=== PATIENT | female | born 1970 | race Caucasian/White ===

== ENCOUNTER 2017-12-02 08:34 | Outpatient (RCR) | payer MEDICAID, SELFPAY ==
--- NOTE | 2017-12-02 13:45 | BH.SGPN ---
Service Group Progress Note - Session Psychotherapy Session #2 Date Open:: 12/02/17 - 5 group members Time Started:: 10:10 Time Stopped:: 11:03 Targeted Problem #:: 1 Type of Group:: Illness Management Goal of Group:: The goal of group was to increase understanding of goals and goal setting and practice a method of goal setting. Client Response/Progress/Benefit:: Client responded well to session, active participant, content sometimes off topic. Client processed quote with group sharing it resonates with her as client believes setting goals gives her direction. Client reported goals should be relevant and specific to help a person stay motivated. Client reported in the past she has set unrealistic goals which resulted in client self-sabotaging and not accomplishing the goal. Client helped the group set goals during the activity, but continued to suggest unrealistic goals throughout. Client reflected this was not the most helpful strategy in the activity and in her own life as small goals build confidence. Client appeared to benefit from increasing awareness of SMART goal setting as well as self-sabotaging behaviors. Eye Contact:: Good Motor Activity:: Appropriate Appearance:: Disheveled Speech:: Tangential, Rapid Mood:: Euphoric Affect:: Full Thoughts:: Flight of ideas Staff Interventions:: Therapist facilitated group discussion about goals and goal setting. Therapist taught group the acronym SMART (Specific, Measurable, Achievable, Relevant, Timely) as a tool to help with goal setting. Therapist led the group in an activity to be used as a method of practicing goal setting. Therapist provided the group with a small beach ball and explained their goal was to keep the ball in the air for as long as possible. Therapist guided the group through the SMART acronym as group was participating in activity. Psychotherapy Session #3 Date Open:: 12/02/17 - 5 group members Time Started:: 11:10 Time Stopped:: 12:10 Targeted Problem #:: 1 Type of Group:: Functional Skills Development Goal of Group:: The goal of group was to identify a goal for the week, explore the potential barriers to achieving that set goal, and identify strategies to overcome barriers. Client Response/Progress/Benefit:: Client responded well to session, active participant. Client shared the activity helped client realize she does not have to accomplish her goals alone. Client created a weekly goal of planning her [place] trip by printing off 10 places she would like to visit. Client reported this goal does not directly relate to mental health, but client shared with her medical conditions worsening, client wants ?to live my life? and take a trip that will bring client abraham. Client identified her barriers as procrastination and time management. Client created strategies to overcome these barriers such as using her supports for accountability and going to the library. Client appeared to benefit from creating a weekly goal and establishing strategies to overcome barriers. Client seems to be progressing with her willingness to utilize supports to help accomplish goals as evidenced by her report of ?I don?t have to do this alone.? Eye Contact:: Good Motor Activity:: Appropriate Appearance:: Disheveled Speech:: Tangential Mood:: Euthymic Affect:: Full Thoughts:: Flight of ideas, No evidence of hallucinations/delusions noted Staff Interventions:: Therapist explained goal setting activity to group. Therapist provided each group member with a piece of paper and asked them to write down a goal they would like to accomplish over the weekend. Therapist then asked each member to draw a path to their goal and identify barriers that could potentially get in the way of their goal. Therapist led group in processing their goal maps and had them come up with strategies to overcome the barriers. Therapist provided support by using reflective listening.
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
--- NOTE | 2017-12-04 14:19 | BH.SGPN ---
Service Group Progress Note - Session Psychotherapy Session #3 Date Open:: 12/04/17 - 10 group members Time Started:: 11:21 Time Stopped:: 12:11 Targeted Problem #:: 1 Type of Group:: Functional Skills Development Goal of Group:: To rehearse resilient factors and identify ways to maintain resilience despite hardships and stressors. Client Response/Progress/Benefit:: Client responded well to session, active participant and providing supportive statements to peers. Client identified her personal resiliency traits to be I'm good in a crisis and good at fixing things. However, client stated at times she often creates her own crisis as client feels most comfortable in that environment. Client responded well to feedback regarding utilizing self-care and the impact of self-sabotaging. Client wrote her resiliency traits on her stress ball as a reminder to client of ways she can remain resilient despite hardships. Client appeared to benefit from identifying ways in which client demonstrates resiliency as well as receiving supportive statements from others. Client seems to be progressing with identifying personal strengths and barriers, but can continue to benefit from managing impulses. Eye Contact:: Good Motor Activity:: Restless Appearance:: Disheveled Speech:: Tangential Mood:: Euthymic Affect:: Full Thoughts:: Linear, Other - some evidence of grandiose thoughts. Staff Interventions:: Therapist led group in an activity in which group members were challenged to stay resilient despite various stressors and hardships added to activity. Therapist provided each group member with a stress ball and used stress ball as a tool to discuss factors of resilient personality. Therapist provided group members with a handout about the building blocks of resilience. Therapist provided support by using reflective listening.
--- NOTE | 2017-12-04 14:51 | BH.MDN ---
Multi-Disciplinary Note - Note 60-min Individual Time Started:: 10:27 Date: 12/04/17 Purpose of session/treatment goals addressed:: The purpose of the session was to address client's current functioning and provide emotional support regarding Client feelings of overwhelming stress/anxiety related to past trauma and current medical stressors. Another goal was to establish rapport with client by gathering information on client's current stressors, supports, and symptoms, as well as begin establishing treatment goals. Eye Contact:: Good - Tearful in discussing chronic medical dx. Motor Activity:: Appropriate Appearance:: Casual Speech:: Pressured, Rambling - Client often would start responding to prompts on topic; however, easily became sidetracked by her own thoughts and overwhelming emotion. Mood:: Anxious, Depressed Affect:: Full Thoughts:: Linear, Logical, No evidence of hallucinations/delusions noted Staff Interventions:: Therapist used open-ended questions to gather information on client's symptoms, supports, and stressors. Therapist provided emotional support and active listening as client was expressing concerns about struggling to accept and adjust to the adjunct faculty for medical terminology limitations and implications related to diagnosis of liver disease and associated decreased independence. Used OK techniques to begin establishing tx plan goals. Client Response:: Client well engaged, although had some difficulties in remaining on topic throughout discussion. Client willing to attend session and expressed relief in being able to sit as she was begining to become fatigued from standing during group activity. 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 She did well to challenge her self to reframe and identify the positives of her willingness to seek help and motivation to change. Client described a recent influx in life stressors resulting in adverse symptoms related to anxiety and depression. Client indicated that she hasn't slept in months, and cited recieving no more than 2-3 hours of rest at any one time in the last two months. Client indicates increased irritability and verbal outbursts with her family which has begun to strain relationships with her fiance and children, as well as caused her to experience guilt and remorse as a result. CLient discussed that she attributes these symptoms to difficulties in accepting and managing the role changes and responsibilities associated her liver disease diagnosis. Client discussed increased confusion regarding what is or is not real which has led to fear of a return of symptoms associated with what Client referenced to as a historical dx of Dissociative identity disorder (DID) that has not been an issue in the past several years. 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 Client indicated a hx of medication noncompliance however reports that following group Saturday was so inspired by the material that I decided to start taking my medication again. Client reports remaining medication complaint since 12/02/17. Client indicates wanting to determine what her next steps in life are and determine how she can better manage these new transitions in her life. Client receptive to thought challenging technique of identifying evidence for/against her thoughts in order to determine the validity of thoughts she describes as confusing. Client willing to apply this technique and write down specific thoughts she challenges for the next week to review in following session. Risks/Concerns:: No risks or concerns at this time. Client denies any current suicidal ideation, plan, or intent. She is future oriented, indicating plans to attend group for the remainder of the week and expresses setting a good example for her children as motivation to live. Client reports remaining medication complaint since 12/02/17 and is agreeable to continuing to remain compliant with all medications. Client aware of and willing to utilize the crisis resources available should she no longer feel able to maintain safety of herself or others. Progress Toward Goals/Plan:: Limited progress able to be made as it is client's second day of the IOP program. Client recommended to continue current level of treatment for on going symptom management, coping skill maintenance, and increased ability to recognize and manage unrealistic thinking patterns. Time Stopped:: 11:22
--- NOTE | 2017-12-04 16:10 | BH.MDN_ITS ---
Multi-Disciplinary Note - Note 60-min Individual Time Started:: 10:27 Date: 12/04/17 Purpose of session/treatment goals addressed:: The purpose of the session was to address client's current functioning and provide emotional support regarding Client feelings of overwhelming stress/anxiety related to past trauma and current medical stressors. Another goal was to establish rapport with client by gathering information on client's current stressors, supports, and symptoms, as well as begin establishing treatment goals. Eye Contact:: Good - Tearful in discussing chronic medical dx. Motor Activity:: Appropriate Appearance:: Casual Speech:: Pressured, Rambling - Client often would start responding to prompts on topic; however, easily became sidetracked by her own thoughts and overwhelming emotion. Mood:: Anxious, Depressed Affect:: Full Thoughts:: Linear, Logical, No evidence of hallucinations/delusions noted Staff Interventions:: Therapist used open-ended questions to gather information on client's symptoms, supports, and stressors. Therapist provided emotional support and active listening as client was expressing concerns about struggling to accept and adjust to the bag hanger limitations and implications related to diagnosis of liver disease and associated decreased independence. Used MD techniques to begin establishing tx plan goals. Client Response:: Client well engaged, although had some difficulties in remaining on topic throughout discussion. Client willing to attend session and expressed relief in being able to sit as she was begining to become fatigued from standing during group activity. 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 She did well to challenge her self to reframe and identify the positives of her willingness to seek help and motivation to change. Client described a recent influx in life stressors resulting in adverse symptoms related to anxiety and depression. Client indicated that she hasn't slept in months, and cited recieving no more than 2-3 hours of rest at any one time in the last two months. Client indicates increased irritability and verbal outbursts with her family which has begun to strain relationships with her fiance and children, as well as caused her to experience guilt and remorse as a result. CLient discussed that she attributes these symptoms to difficulties in accepting and managing the role changes and responsibilities associated her liver disease diagnosis. Client discussed increased confusion regarding what is or is not real which has led to fear of a return of symptoms associated with what Client referenced to as a historical dx of Dissociative identity disorder ( DID) that has not been an issue in the past several years. 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 Client indicated a hx of medication noncompliance however reports that following group Saturday was so inspired by the material that I decided to start taking my medication again. Client reports remaining medication complaint since 12/02/17. Client indicates wanting to determine what her next steps in life are and determine how she can better manage these new transitions in her life. Client receptive to thought challenging technique of identifying evidence for/against her thoughts in order to determine the validity of thoughts she describes as confusing. Client willing to apply this technique and write down specific thoughts she challenges for the next week to review in following session. Risks/Concerns:: No risks or concerns at this time. Client denies any current suicidal ideation, plan, or intent. She is future oriented, indicating plans to attend group for the remainder of the week and expresses setting a good example for her children as motivation to live. Client reports remaining medication complaint since 12/02/17 and is agreeable to continuing to remain compliant with all medications. Client aware of and willing to utilize the crisis resources available should she no longer feel able to maintain safety of herself or others. Progress Toward Goals/Plan:: Limited progress able to be made as it is client's second day of the IOP program. Client recommended to continue current level of treatment for on going symptom management, coping skill maintenance, and increased ability to recognize and manage unrealistic thinking patterns. Time Stopped:: 11:22
--- NOTE | 2017-12-04 16:10 | BH.SGPN ---
Service Group Progress Note - Session Psychotherapy Session #1 Date Open:: 12/04/17 Time Started:: 09:09 Time Stopped:: 10:15 Targeted Problem #:: 1 Type of Group:: Process - 10 participants
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
--- NOTE | 2017-12-06 11:30 | BH.SGPN_ITS ---
Service Group Progress Note - Session Psychotherapy Session #1 Date Open:: 12/06/17 Time Started:: 09:02 Time Stopped:: 10:05 Targeted Problem #:: 1 Type of Group:: Process - 6 Participants Goal of Group:: The goal of today's group was to check-in with client's mood, stressors, and positives, review homework, and to introduce the topic of the day. Client Response/Progress/Benefit:: Client entered session alert and attentive. Client shared how her zeyad has been keeping her up all night and her physical symptoms have been affecting her more. She went on to share how her medications are making her sick and her 13 year old has been nursing her and she doesn?t want him to have to do that. She states, ?I?ve been trying to keep my head above water, but I feel like I?m sinking.? Client indicated her emotion as content. Client benefitted from group by receiving support from peers. Limited progress noted due to client?s report of increased symptoms and decreased ability to manage stressors. Continued treatment necessary to increase coping skills and support network. Eye Contact:: Fair Motor Activity:: Appropriate Appearance:: Casual Speech:: Appropriate Mood:: Anxious, Depressed Affect:: Congruent Thoughts:: Linear, Logical, No evidence of hallucinations/delusions noted Staff Interventions:: Therapist used open-ended questions to elicit information about client's current stressors and mood. Therapist was supportive by using active listening and reflection.
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
--- NOTE | 2017-12-06 12:46 | BH.DR.ITP ---
Initial Treatment Plan - Patient Information Visit Information: ADMISSION DATE: EXPECTED LOS: 4-6 weeks Diagnoses:: Bipolar disorder F 31.9, borderline personality disorder - Problems/Symptoms Problem #1:: Mood symptoms Symptom:: Depression, decreased energy, difficulty concentrating, biologic disruption of sleep and appetite Problem #2:: Anxiety Symptom:: Panic attacks, rumination Problem #3:: Perceptual disturbances
--- NOTE | 2017-12-09 10:32 | BH.SGPN ---
Service Group Progress Note - Session Psychotherapy Session #2 Date Open:: 12/09/17 Time Started:: 10:12 Time Stopped:: 11:12 Targeted Problem #:: 1 Type of Group:: Illness Management - 10 participants Psychotherapy Session #3 Date Open:: 12/09/17 Time Started:: 11:19 Time Stopped:: 12:20 Targeted Problem #:: 1 Type of Group:: Functional Skills Development - 8 participants
--- NOTE | 2017-12-09 10:34 | BH.SGPN_ITS ---
Service Group Progress Note - Session Psychotherapy Session #1 Date Open:: 18 - 9 group members Time Started:: 09:00 Time Stopped:: 10:02 Targeted Problem #:: 1 Type of Group:: Process Goal of Group:: The goal of today's group was to check-in with client's mood, stressors, and positives, and introduce topic for the day. Client Response/Progress/Benefit:: Client responded well to session, active participant. Client reports feeling ?hopeful? today as she feels confident in her decision to take care of her mental health and has been setting small goals. Client shared over the weekend she spent time with her fiance and son which client enjoyed. However, client reported at times she feels ?alone and frustrated? as client expressed belief her family does not understand client?s mental health issues. Client appeared to benefit from gaining emotional support from peers. Client seems to be progressing with setting small goals, but can continue to benefit from reality testing and medication management. Eye Contact:: Good Motor Activity:: Restless Appearance:: Disheveled Speech:: Rambling Mood:: Euthymic Affect:: Full Thoughts:: Flight of ideas - Client jumping quickly between topics. Staff Interventions:: Therapist used open-ended questions to elicit information about client's current stressors and mood state. Therapist was supportive by using active listening and reflection.
--- NOTE | 2017-12-11 09:42 | BH.COMM ---
Communication Note - Communication with Client Communication Note: Pt cancelled yesterday and today. Pt was not able to complete psycyhosocial due to missed days. Plan to complete psychosocial at next visit. Therapist is following up to discuss lack of attendence.
--- NOTE | 2017-12-12 12:00 | BH.MDN_ITS ---
Multi-Disciplinary Note - Note 60-min Individual Time Started:: 10:10 Date: 12/12/17 Purpose of session/treatment goals addressed:: Purpose of session was to check- in with pt after having emotional break down with IOP therapist prior to group session 2 started. This IOP therapist met with pt to process pt's current symptoms and stressors, assess lethality and safety plan. Eye Contact:: Fair Motor Activity:: Restless Appearance:: Disheveled Speech:: Rambling Mood:: Anxious, Depressed Affect:: Constricted Thoughts:: Flight of ideas, No evidence of hallucinations/delusions noted Staff Interventions:: Therapist used open ended questions to elicit pt's symptoms and stressors. Therapist processed pt's stressors and emotions, validating emotions and experience. Therapist utilized solution focused techniques to identify steps that can help reduce pt's current stressors. Therapist assessed for lethality and provided pt with different strategies to decrease picking behavior. Client Response:: Pt reported she is having a hard time because she has so much to do, but is struggling with being motivated and just wants to sleep. Pt shared she is sleeping a lot and feels unable to get much down. Reported since 2016 she has started to feel unclean again which results in pt feeling need to punish or clean her genital area several times a day. Pt reported this behavior will first start with punishment to the genital area then a shower in an attempt to cleanse her self. Pt reported this is happening up to 4 times a day. 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 Pt unable to identify a specific trigger to restarting genital punishment. Pt reported she also continues to pick at her skin which frustrates her because she knows the picking isn't going to help her. Pt shared she has tried to put band-aids over the area in an attempt to stop herself, but thus far no strategy has helped. Pt reported she is willing to try the butterfly project strategy of drawing butterflys over the area she wants to pick as a way to stop herself from engaging in that behavior. Pt denied suicidal ideation, plan or intention to date. Expressed feeling exhausted with taking care of her asperger's daughter and autistic son; with little assistance from her fiance. Pt reported she isn't getting much emotional support. Pt shared feeling better after having an opportunity to share her thoughts and feelings. Pt agreeable for homework to make a to do list of what she needs to get done with due dates for each of the things then would bring that list in to help prioritize what she needs to do. Risks/Concerns:: Pt denies SI, plan or intention to date. Pt's picking and genital punishment are concerning behaviors, which will continue to be monitored. Pt engaging in those behaviors does not appear to be for intent to kill self. Pt's children serve as protective factors. Progress Toward Goals/Plan:: Pt progress limited due to inconsistent IOP attendance. Pt demonstrated progress by expressing her thoughts and feelings. Also appeared open minded to trying different strategies that might help reduce depressive and anxious symptoms. Pt to continue IOP to stabilize moods and decrease anxious symptoms. Time Stopped:: 11:04
--- NOTE | 2017-12-12 16:08 | BH.COMM_ITS ---
Communication Note - Communication with Client Communication Note: Therapist met with Client to discuss recent decline in attendance and determine strategies to improve consistency of CLient attendance in the IOP program. Client reports her attendance had been affected by difficulties in managing the behaviors of her son whom is diagosed with Autism as well as increased periods of sleep with prolonged fatigue. CLient discussed that her increased sleep may be a sign of encephalopathy and that she currently has a standing order with the [facility] in order to be tested for any signs of such. Client encouraged to follow up with tests in order to role out medical risk, rule out medical related reasons for increased sleep, and to best promote consistent attendance moving forward. Client reports that due to increased sleep she has additionally missed the past few dosages of her prescribed psychiatric medication. Risks of medication noncompliance were reviewed with client who indicated understanding and expressed plans to begin consistantly taking prescribed dosage. Client and therapist discussed stressors related to managing her son's behaviors. Client indicated feeling overwhelmed and as though she has no support. Client open to the idea of becoming involved in the autism community and indicated interest in attending parent support groups. This therapist will follow up with information regarding local parent support groups. Client appeared to have relaxed following discussion regarding local resources; however, indicated a recent influx in self harming behaviors after meeting with this therapist. Client denied suicidal ideation or intent and agreeable to follow-up with a fellow program therapist in order to further assess Client for risk as this therapist was scheduled to facilitate the IOP group at this time. Therapist will coordinate with treatment team for safety planning and coordination of care purposes following client risk assessment to be completed on this date.
--- NOTE | 2017-12-12 16:31 | BH.COMM ---
Communication Note - Communication with Client Communication Note: Therapist contacted CLient outpatient psychologist, Dr. Moreno, with the [facility] to communicate concerns regarding Client medication compliance and inappropriate or unhealthy coping means of coping, as well as provide updates regarding current treatment plan goals. Therapist coordinated with provider to establish a plan of best practice moving forward. Plan is to continue with current treatment goals and objectives, continue to monitor for and promote safety, as well as provide regular updates regarding Client progress.
--- NOTE | 2017-12-13 12:54 | BH.COMM ---
Communication Note - Communication with Client Communication Note: Client indicated feeling exhausted and unable to focus due to a lack of sleep. Client expressed wanting to return home to rest as she feels unable to remain fully attentive in group. Therapist inquired whether Client had followed up with labwork through the [facility] regarding concerns with sleep. Client indicates plans to get the labwork completed this afternoon following an appointment with her treatment team at the [facility]. Client reports continued difficulties with managing her diabetes medication as she is sleeping through times in which she should be administering medication. Therapist reviewed with Client importance of consistent medication compliance as well as program/appointment attendance in order to best promote mental and physical health and wellness. Client indicates understanding. Client agreeable to meet with therapist on 12/16/17, for an individual session.
--- NOTE | 2017-12-13 14:03 | BH.COMM_ITS ---
Communication Note - Communication with Client Communication Note: Client indicated feeling exhausted and unable to focus due to a lack of sleep. Client expressed wanting to return home to rest as she feels unable to remain fully attentive in group. Therapist inquired whether Client had followed up with labwork through the [facility] regarding concerns with sleep. Client indicates plans to get the labwork completed this afternoon following an appointment with her treatment team at the [facility]. Client reports continued difficulties with managing her diabetes medication as she is sleeping through times in which she should be administering medication. Therapist reviewed with Client importance of consistent medication compliance as well as program/appointment attendance in order to best promote mental and physical health and wellness. Client indicates understanding. Client agreeable to meet with therapist on 12/16/17, for an individual session.
--- NOTE | 2017-12-16 11:53 | BH.COMM ---
Communication Note - Communication with Client Communication Note: This therapist attempted to contact client outpatient treatment team at the [facility]. Client disease case manager was unavailable and a discrete message was left encouraging a return phone call for coordination of care purposes.
--- NOTE | 2017-12-16 14:00 | BH.SGPN_ITS ---
Service Group Progress Note - Session Psychotherapy Session #2 Date Open:: 12/16/17 - 7 group members Time Started:: 10:23 Time Stopped:: 11:20 Targeted Problem #:: 1 Type of Group:: Illness Management Goal of Group:: To identify the importance of change, increase understanding of difficulty of making change, identify what clients would like to make changes in and identify the barriers or obstacles that get in the way of change. Client Response/Progress/Benefit:: Client responded well to session, active participant. Client processed the quote, sharing one cannot move on if they keep reliving the past. Client stated, ?I keep rereading old chapters because it?s comfortable and all I know.? Client helped group identify difficulties associated with making change such as fear, avoidance, lack of motivation, and feeling overwhelmed. Client identified changes she would like to make such as organizing her bills, making phone calls she has been avoiding, and more self- care/rewards. Client reported these changes would give her an increased sense of control and confidence. Client identified her barriers to be procrastination, avoidance, and fear of failure. Client appeared to benefit from gaining awareness of her barriers as well as identifying changes that would positively impact her mental health and functioning. Client progressing with understanding the implications of not changing, but continues to report reluctance to step out of her comfort zone which could hinder progress. Eye Contact:: Good Motor Activity:: Appropriate Appearance:: Neat - hair and makeup done Speech:: Other - Speech within normal limits, making inappropriate jokes about mental health at times. Mood:: Euthymic Affect:: Full Thoughts:: Linear, No evidence of hallucinations/delusions noted Staff Interventions:: Therapist facilitated discussion about change and helped client?s make connections of why change is important. Therapist led group in an experiential activity which involved client?s identifying changes want to make and barriers that get in the way of making those changes. Therapist utilized activity as a tool to help client?s make connections of difficulties in making changes and identify what helps overcome barriers to change.
--- NOTE | 2017-12-17 11:53 | BH.MTP_ITS ---
Master Treatment Plan - Patient Information Program Physician:: Jayleen Rizzo Primary Therapist:: RUY Santiago - Psychiatric Diagnoses Psychiatric Diagnoses:: Bipolar disorder unspecified F 31.9. Borderline personality disorder. Anxiety. Dissociative disorder by history Diagnosis Code(s):: F 31.9, F 60.3, F 41.9, F 44.81 - Estimated LOS Estimated LOS (in weeks):: 6 Problem/Goal #1 - Problem/Goal #1 Stated Goal:: Client will increase mood stability and decrease depressive symptoms, anger/irritability, and self harming behaviors due to Bipolar I through Intensive Outpatient Program. Description of Barriers: Client reports a trauma history which continues to impact her daily via low confidence levels and high anxiety. She additionally struggles with several physical health issues, including a terminal liver disease, which create scheduling difficulties as well as financial, occupational , physical, emotional, and various other stressors for her. Client reports difficulties with medication compliance as well as difficulties in maintaining a diabetes management diet plan. 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 Client has an extensive history of previous suicide attempts and self harming behaviors. Client denies current suicidal ideation, plan or intent. Client has multiple mental health diagnosis causing significant difficulties in managing her sx. Functional Impact: Client reports difficulties in managing her finances as both mental and phsical health issues have caused her to be unable to work as well as rg in her group home. Client reports these difficulties have additionally led to increased irritability and interpersonal relationship tension. Cleint indicates medication noncompliance as well as decreased ability to complete ADL' s include normal grooming/hygiene routine. Client increased anxiety related to past trauma has resulted in ongoing self harming behaviors via excessinve vaginal washing while in the shower and skin picking behaviors. Client reports increased anxiety and depression symptoms resulting in an inability to function at baseline. Goal Relevant Strengths/Supports: Client has had previous mental health treatment and professional experience which provides a potential increased ability to learn and understand treatment concepts, resilient, motivated to change, fair levels of insight, Client is ambitious and able to identify resources she may use. - Objectives Objective #1 Stated Objective: Client will learn and utilize 2-3 healthy coping strategies to manage and regulate mood state. Interventions: Therapist will assist client in learning internal coping strategies to manage emotion disregulation symptoms, along with helping client identify triggers. Discharge Criteria: Client will have achieved this goal when can verbalize and has practiced at least 2 healthy coping strategies. Target Date: 01/15/18 Review Date: 12/30/17 Problem/Goal #2 - Problem/Goal #2 Stated Goal:: Client will increase self confidence and self worth levels in order to reduce sx of depression by increasing identification of healthy coping skills and initiating regular completion of self care routine. Description of Barriers: Client reports a trauma history which continues to impact her daily via low confidence levels and high anxiety. She additionally struggles with several physical health issues, including a terminal liver disease, which create scheduling difficulties as well as financial, occupational , physical, emotional, and various other stressors for her. Client reports difficulties with medication compliance as well as difficulties in maintaining a diabetes management diet plan. 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 Client has an extensive history of previous suicide attempts and self harming behaviors. Client denies current suicidal ideation, plan or intent. Client has multiple mental health diagnosis causing significant difficulties in managing her sx. Functional Impact: Client reports difficulties in managing her finances as both mental and phsical health issues have caused her to be unable to work as well as rg in her group home. Client reports these difficulties have additionally led to increased irritability and interpersonal relationship tension. Cleint indicates medication noncompliance as well as decreased ability to complete ADL' s include normal grooming/hygiene routine. Client increased anxiety related to past trauma has resulted in ongoing self harming behaviors via excessinve vaginal washing while in the shower and skin picking behaviors. Client reports increased anxiety and depression symptoms resulting in an inability to function at baseline. Goal Relevant Strengths/Supports: Client has had previous mental health treatment and professional experience which provides a potential increased ability to learn and understand treatment concepts, resilient, motivated to change, fair levels of insight, Client is ambitious and able to identify resources she may use. - Objectives Objective #1 Stated Objective: Client will establish a regular daily self care routine; including compliance with all prescribed medications, completing daily grooming routine, and completing one additional self care activity daily. Interventions: Provide Client with education on the importance of medication management and compliance. Explore more in-depth with Client the potential causes and triggers to not completing daily self-care tasks as well as obstacles to maintaining compliance. Identify effective strategies for overcoming obstacles and improving compliance. Provide education on self care coping skills . Provide Client with a daily medication log. Discharge Criteria: Client will be able to remain compliant with established routine 5 out of 7 days each week by utilizing 1-2 problem solving strategies for compliance as well as implementing 2 new self-care skills. Target Date: 01/15/18 Review Date: 12/30/17 Problem/Goal #3 - Problem/Goal #3 Stated Goal:: Client will increase healthy management of anxiety and decrease frequency, intensity, and duration of related excoriation, rumination, and panic symptoms. Description of Barriers: Client reports a trauma history which continues to impact her daily via low confidence levels and high anxiety. She additionally struggles with several physical health issues, including a terminal liver disease, which create scheduling difficulties as well as financial, occupational , physical, emotional, and various other stressors for her. Client reports difficulties with medication compliance as well as difficulties in maintaining a diabetes management diet plan. 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 Client has an extensive history of previous suicide attempts and self harming behaviors. Client denies current suicidal ideation, plan or intent. Client has multiple mental health diagnosis causing significant difficulties in managing her sx. Functional Impact: Client reports difficulties in managing her finances as both mental and phsical health issues have caused her to be unable to work as well as rg in her group home. Client reports these difficulties have additionally led to increased irritability and interpersonal relationship tension. Cleint indicates medication noncompliance as well as decreased ability to complete ADL' s include normal grooming/hygiene routine. Client increased anxiety related to past trauma has resulted in ongoing self harming behaviors via excessinve vaginal washing while in the shower and skin picking behaviors. Client reports increased anxiety and depression symptoms resulting in an inability to function at baseline. Goal Relevant Strengths/Supports: Client has had previous mental health treatment and professional experience which provides a potential increased ability to learn and understand treatment concepts, resilient, motivated to change, fair levels of insight, Client is ambitious and able to identify resources she may use. - Objectives Objective #1 Stated Objective: Client will identify 2-3 anxiety triggers and 2 coping skills to use when feeling anxious. Interventions: Therapist will encourage client to use self-awareness strategies and assist client in developing coping strategies to manage ruminating thoughts. Discharge Criteria: Client will have met this goal when can identify at least 2 triggers and 2 ways to cope with anxieties. Target Date: 01/15/18 Review Date: 12/30/17 Objective #2 Stated Objective: Client will decrease frequency of excoriation behaviors by identifying 2-3 triggers that create the urge to pick skin and identify and implement 2 coping skills to use when feeling tempted to engage in skin picking . Interventions: Therapist will encourage client to use self-awareness strategies and provide a behavior tracking chart to monitor progress as well as identify frequency of behavior. Assist client in developing coping strategies to manage urges to engage in picking behaviors. Discharge Criteria: Client will be able to successfully identify 2-3 triggers for skin picking urges. She will decreas overall frequency of picking through successfully identification and implementation of 2 alternative coping methods she may use to replace picking behaviors. Target Date: 01/15/18 Review Date: 12/30/17
--- NOTE | 2017-12-17 11:55 | BH.COMM_ITS ---
Communication Note - Communication with Client Communication Note: This therapist attempted to contact client outpatient treatment team at the [facility]. Client case consultant was unavailable and a discrete message was left encouraging a return phone call for coordination of care purposes.
--- NOTE | 2017-12-17 11:55 | BH.COMM ---
Communication Note - Communication with Client Communication Note: Client called to cancel IOP group attendance for this day as she was out of town for an appointment with her daughter and did not believe she would make it back in time. Client scheduled to attend group held on , 12/19/17. Client additionally scheduled for an individual session on this date which will be rescheduled for 12/19/17 as client unable to attend.
[2018-01-31 15:08] VITALS: BP 121/65; PULSE 92; RESP 14; TEMP 36.7
== END 2017-12-18 23:59 ==
LOC: BHIOP 08:34
PROVIDERS: Family Provider Internal Medicine; PCP Internal Medicine; Visit Provider Psychiatry & Neurology Psychiatry
DX: F31.9 Bipolar disorder, unspecified (principal); F60.3 Borderline personality disorder; F41.9 Anxiety disorder, unspecified; K74.69 Other cirrhosis of liver; E11.9 Type 2 diabetes mellitus without complications; Z79.4 Long term (current) use of insulin; E06.3 Autoimmune thyroiditis
CPT/HCPCS: 99204; H0035; H2012; H2020; T1002; 90837

== ENCOUNTER 2017-12-19 09:00 | Outpatient (RCR) | payer MEDICAID, SELFPAY ==
[2017-11-26 14:12] VITALS: BMI 26.6
[2017-12-06 14:29] VITALS: BP 121/65
[2017-12-19 01:08] VITALS: PULSE 92; RESP 14; TEMP 36.7
--- NOTE | 2017-12-19 14:07 | BH.MDN ---
Multi-Disciplinary Note - Note 30-min Individual Time Started:: 12:25 Date: 12/19/17 Purpose of session/treatment goals addressed:: The purpose of this session was to assess client current symptoms and stressors as well as identify CLient progress towards small daily goals identified in previous session. Another purpose was to address Client concerns regarding skin picking behaviors and identify potential impulse control strategies and replace behaviors. Eye Contact:: Good Motor Activity:: Appropriate Appearance:: Casual Speech:: Appropriate Mood:: Euthymic, Anxious Affect:: Full, Congruent Thoughts:: Linear, Logical, No evidence of hallucinations/delusions noted Staff Interventions:: Therapist asked open-ended questions in order to ellicit additional information regarding CLient current symptoms and stressors as well as progress towards treatment goals. Utilized active listening skills and provided supportive feedback empathic responses as CLient discussed current concerns. Commended Client for areas in which progress was made and and encouraged continued application of change behaviors. Applied CBT concepts to address excoriation and aided Client in identfying potential healthy alternatives. Provided information on local resources. Client Response:: Client willing to attend session and engaged throughout, however indicated not being able to stay for full 60 minute session as her son is sick needed picked up early from school. Client proudly shared feeling excited to discuss her progress towards small daily goals as she has successfully been able to achieve each goal this week. Client discussed working with her home health nurse on challenging her reluctance to remain compliant with medications and noted that by reframing this so that is was a challenge has aided in increasing motivation. Client indicated feeling silly and ashamed for not maintaining compliance previously as she knows the medication helps and is already beginning to feel better after four consistent days of taking all medications. Client discussed fears in maintaining this progress and not wanting to let everyone down. She responded well to being gently challenged as to who she is really harming if she fails to remain med. compliant as well as whether or not she can attain complaince again. Client additionally discussed that returning to a daily self-care and hygiene routine has been helpful with increasing motivation and self-worth. She went on to disclose that despite putting efforts into her appearance, she finds it difficult to feel like my old self when she sees the hartmann she has from skin picking. Client indicates feeling helpless and unable to control the picking behaviors. She reports previously unsuccessful attempts to refrain from skin picking by covering blemished areas with band-aids. She was receptive to brainstorming potential new alternatives and expressed that the physical sensation and her biggest area of struggle. Client connected well with therapist suggestion of peeling an orage and picking off the orange skin when tempted to engage in picking behaviors. Client willing to follow-up tomorrow for full session. Risks/Concerns:: No risks or concerns at this time. CLient denies active suicidal ideation, plan, or intent as of 12/19/17 and reports no self harming behaviors or urges on this date. Continued daily monitoring and prevention education and support will be done with CLient. Client indicates ongoing medication comliance since 12/16/17. Progress Toward Goals/Plan:: Progress made. CLient displaying progress in her willingness and ability to maintain medication compliance. She has expressed increased motivation to change and indicates successfully making strides towards completing daily goals. Client expresses a desire to learn more skills for improving levels of self confidence and better managing emotions. Displaying improved hygiene and grooming. Client recommendation is to remain in IOP to continue to make consistent progress and maintain current treatment plan goals. Time Stopped:: 13:00
--- NOTE | 2017-12-19 14:57 | BH.SGPN ---
Service Group Progress Note - Session Psychotherapy Session #1 Date Open:: 12/19/17 Time Started:: 09:00 Time Stopped:: 10:00 Type of Group:: Process - 5 group members Goal of Group:: The goal of today's group was to check-in with client's mood, stressors, and positives, review homework and introduce topic for the day. Client Response/Progress/Benefit:: Pt was an active participant in group discussion. Emotion for today is happy. Shared with the group that she has been medication compliant and has put significant effort in her treatment since last IOP session. Stated I'm starting to feel like myself again. Had several tasks that she had been avoiding which she began to address this week. Reports feeling more accomplished stating I feels like I can do things again. Significant progress noted. Appears more energetic and engaged in treatment. Reports that recent groups on goal-setting have helped her prioritize her life. Benefited from group support and praise. Continued treatment to prevent decompensation and stabilize mood. Eye Contact:: Good Motor Activity:: Appropriate Appearance:: Neat Speech:: Appropriate Mood:: Euthymic Affect:: Full Thoughts:: Linear, Logical, No evidence of hallucinations/delusions noted Staff Interventions:: Therapist used open-ended questions to elicit information about client's current stressors and mood state. Therapist was supportive by using active listening and reflection.
--- NOTE | 2017-12-20 15:25 | BH.MDN_ITS ---
Multi-Disciplinary Note - Note 45-min Individual Time Started:: 12:25 Date: 12/20/17 Purpose of session/treatment goals addressed:: The purpose of this session was to review with Client continued progress towards treatment goals and use of healthy coping skill, as well as assess current symptoms and stressors. Another purpose was to continue to work with Client on identifying triggers and thoughts associated with excoriation as well as indroduced a Mental Health Tracker to aid Client in identifying frequency and intentsity of mood, symptoms , and maladaptive coping strategies. Eye Contact:: Good Motor Activity:: Appropriate Appearance:: Casual Speech:: Appropriate Mood:: Euthymic Affect:: Full, Bright Thoughts:: Linear, Logical, No evidence of hallucinations/delusions noted Staff Interventions:: Therapist asked open-ended questions in order to elicit additional information regarding Client symptoms, stressors and ongoing progress towards treatment goals. Utilized active listening skills and provided supportive feedback. Commended Client for on going medication compliance and use of alternative solutions to skin picking behaviors. Continued to work with Client on applying CBT concepts to address excoriation as well work to assist with identifying potential triggers for the behavior and their corresponding coping mechanisms. Introduced mental health symptom, mood, and behavior tracker. Client Response:: Client willing to stay late for session and did well to remain actively engaged in discussion with little distraction. Client discussed excitement and relief as she indicated I've feeling my old self these last few days. Client went on to discuss decreased irritability and improved levels of sleep in the past few days. Client attributes this to remaining medication compliant and responded well to discussion reinforcing the benefits of remaining compliant with all treatment recommendations given by providers. Client shared attempting to use the orange peeling technique as an alternative to skin picking on the previous evening. She discussed that this method had served as a helpful alternative to picking as it provided a similar sentation; however, Client indicates going through an entire bag of oranges in 24 hours and therefore would like to explore less financially constraining alternatives. Client able to work with therapist on identifying potential triggers for the behavior occurring on previous night. Client indicates that often she finds herself mindlessly picking or will be triggered to pick at her skin if she notices a blemish or scab on someone else, such as one of her children, she additionally identified seeing herself in the mirror as a trigger. Client expressed that seeing scabs is her biggest trigger. She responded well to brainstorming additional prevention measures and indicates plans to put a curtain over her mirror so she does not jonathan in it after getting ready. Therapist additionally provided client with a mood and behavior monitoring chart so that client may be able to make small goals of reducing the number of occurrances daily as well as identify any possible correlations between mood, sleep, and behaviors. Client expressed willingness to complete tracker and indicated beliefs that this may aid in tracking progress with medication compliance as well. Client willing to report progress on days attending IOP program. Risks/Concerns:: Client continues to deny active suicidal ideation, plan, or intent as of 12/20/17. Indicates an ability to maintain safety of self and others. Concern regarding client ongoing self-harming behaviors as she reports one self harming behavior via applying hot water to her vaginal area while in the shower to relieve itching sensation. Client in agreement to contact her nurse in order to schedule an appointment with gynecology as well as refrain from showering beyond once daily, and attempt to challenge thoughts of self- harming with positive thinking. Client willing to add self harming behaviors as another component to be tracking on daily log. Continued daily monitoring and prevention education and support will be done with Client on days she attends IOP program. Client indicates ongoing medication compliance since 12/16/17. Progress Toward Goals/Plan:: Client continue to display progress in terms of consistantly trying to apply the skills she is learning to her daily life. Client reports ongoing progress in completion of daily goals related to medication compliance and regular grooming/hygiene. Client continues to report difficulties in challenging negative or distorted thinking patterns such as regarding what others may think of her, her weight, and her ability to be a good mother. Client continues to struggle with regular self-harming and skin picking behaviors and has difficulties in identifying healthy alternatives or challenging her thoughts when an urge arises. Client recommended continued IOP to address maladaptive coping as well as work on sx of anxiety and self- confidence levels. Time Stopped:: 13:06
--- NOTE | 2017-12-24 09:26 | BH.COMM ---
Communication Note - Communication with Client Communication Note: Therapist contacted Client to reschedule what day she would be coming in for IOP program as Client cancelled attendance scheduled for previous date. Client indicates felling better on this day and plans to attend on , 12/26. Client additionally discussed concerns regarding increased tension in relationship with her fiance. Client indicates a desire to schedule family session to discuss ways of improving communication with her fiance as well as to discuss expectations. Client went on to share difficulties in maintaining medication compliance over the weeked due to being sick and fearing should would be unable to keep any medications down. Therapist again reviewed the importance of maintaining compliance and Client indicates setting a goal of taking all medication as prescribed for the remainder of the week.
--- NOTE | 2017-12-24 15:45 | BH.SGPN_ITS ---
Service Group Progress Note - Session Psychotherapy Session #2 Date Open:: 12/19/17 Time Started:: 10:10 Time Stopped:: 11:08 Targeted Problem #:: 1 Type of Group:: Illness Management - 4 participants Goal of Group:: The goal of group was to increase understanding of the benefits social support provides in mental health wellness. Another goal was to increase self-awareness of what qualities the individual group members look for in a person. Client Response/Progress/Benefit:: Client attentive and appeared to respond well to session. She indicated connecting well with the days quote discussing connecting with others and being genuinely interested in what someone has to say. Client connected this back to the importance of social supports and disclosed struggling to utilize her social supports at times. Client appeared to benefit from actively engaging in the activity portion in which participants were given a task requiring them to utilize social supports of one another. Client able to make connections between the activity in daily life indicating the importance of using active communication, clearly stating what you need, and being aware of resources available. Client displayed progress in ability to remain engaged throughout activity as well as allow herself to be the client rather than try and take on a counseling role. CLient additionally displayed increased insight into her struggles to utilize her supports available stating that she often shuts down when feeling as though she needs supports as she thinks she is causing an extra burden for someone else or is a disappointment. Client recommended continued IOP to work towards ongoing stability and use of healthy means of coping, as well as increase ability to identify and challenge negative thinking patterns. Eye Contact:: Good Motor Activity:: Appropriate Appearance:: Casual Speech:: Appropriate Mood:: Euthymic, Anxious Affect:: Full Thoughts:: Linear, Logical, No evidence of hallucinations/delusions noted Staff Interventions:: Therapist led a group discussion about importance of social supports. Therapist facilitated an activity that required the group members to utilize support from each other. Therapist utilized the activity as a tool to connect the importance of accepting social support. Therapist provided support through reflective listening and giving feedback. Psychotherapy Session #3 Date Open:: 12/19/17 Time Started:: 11:17 Time Stopped:: 12:20 Targeted Problem #:: 1 Type of Group:: Functional Skills Development - 5 participants Goal of Group:: The goal of group was to increase understanding of the different types of social support. Another goal was to identify one type of support the client?s desire and establish one small step towards achieving that support. Client Response/Progress/Benefit:: Client again responded well to session and did well to remain actively engaged throuhout. She did worked with the group to discuss potential reasons why they may not reach out to supports when in need and indicated her biggest barrier is guilt and shutting down or isolating. Client worked with group to identify ways to overcome some of these barriers such as reminding herself that her supports will say no if they cant or don't want to help. Client additionally worked to identify various types of supports available as well as the benefits of each. Client displaying progress in ability to identify areas she continues to need progress AEB identifying reconnecting with spiritual supports as a means of self-care as this is accessable anywhere. CLient continues to struggle with self doubt, inconsistent use of skills learned, and difficulties managing emotions. She is recommended continuing IOP treatment to further address these. Eye Contact:: Good Motor Activity:: Appropriate Appearance:: Casual Speech:: Appropriate Mood:: Euthymic, Anxious Affect:: Full Thoughts:: Linear, Logical, No evidence of hallucinations/delusions noted Staff Interventions:: Therapist facilitated group discussion on the different types of social support and importance of each type of support. A worksheet titled ?Plan for Seeking Support?, was utilized to give clients direction in identifying which type of support they desired and identifying the first small step towards the desired support. Therapist provided homework for each group member to try and accomplish the one small step each group member identified on the worksheet.
--- NOTE | 2017-12-26 10:37 | BH.MDN ---
Multi-Disciplinary Note - Note 60-min Individual Time Started:: 12:26 Date: 12/26/17 Purpose of session/treatment goals addressed:: The purpose of this session was to check-in with Client regarding current symptoms and stressors, as well as review continued progress towards treatment goals and use of healthy coping skills. Another purpose was to address client concerns with mood instability, specifically increased irritability, and identify stress management and calming strategies for CLient to utilize. Eye Contact:: Good Motor Activity:: Appropriate Appearance:: Casual Speech:: Rambling Mood:: Irritable, Dysthymic Affect:: Full Thoughts:: Linear, Logical, No evidence of hallucinations/delusions noted Staff Interventions:: Therapist used open-ended and furthering questions to gather information regarding CLient current symptoms, stressors, and coping skills used. Therapist used empathic responses and reflective listening in order to normalize client concerns, as well as provide supportive feedback and encouragement. Therapist provided psychoeducation regarding the relationship between stress and irritability. Aided Client in identifying healthy means for managing and decreasing symptoms of irritability when attempting to communicate with others. Client Response:: Client willing to meet with this therapist for session today rather than the previously established appt. for following day due to a scheduling conflict. Client responded well to session and did well to work with therapist on processing current difficulties with managing her stress response during times in which she is feeling increasingly irritable. Client discussed currently feeling an increase in irritability and resentment towards her family. She discussed feeling as though everything sets me off and hate towards my children which client indicates has scared her as she fears she will be unable to manage her anger if it gets worse. WHen asked to clarify how she is currently expressing angry emotions Client shared going off verbally on her children when they ask questions or forget to do something. Client discussed having a verbal argument with her adult daughter and not remembering what had caused the argument. Client had difficulty identifying specific triggers or events surrounding increased levels of irritability. Upon further reflection she noted struggling to maintain medication compliance over the past weekend and found that her sx were worse during that time, she additionally disclosed increased tention between she and her fiance, Sj, which she believes may also be negatively impacting her mood. Client did well to work with therapist on identifying strategies for decreasing stress levels and preventing from verbal outbursts when feeling increasingly irritable. She responded particularly well to imagining what advice she would have given to a Client with similar sx when she had been actively practicing. Client identified removing herself from the situation and going to a safe space, her office, to cool down and process how to rationally address the issue before responding. CLient additionally identified reminding herself that how her children understand and respond to what she is saying is sometimes impacted by their autism dx. Client additionally qilling to speak with her fiance about scheduling a time for a family therapy session in ordert o review strategies to improve communication and support. Therapsit again reviewed the importance of medication compliance which Client indicates understanding and being in agreement with. A new goal of 5 days of medication compliance was set for the next week. Risks/Concerns:: Client denies suicidal ideation, plan, or intent as of 12/26/17. She indicates ongoing struggles with excoriation behaviors and vaginal cleaning via hot water; however, Client reports a decrease in frequency and duration of skin picking. She additionally indicates that although the vaginal cleaning has increased to twice daily she has lowered the water temp. from what client descrivbes as hot water to one notch above luke-warm. Therapist will continue to work with Client on consistent use of harm reduction as she attempts to replace the behaviors with healthier alternative coping mechanisms. Therapist will continue to monitor behaviors. Progress Toward Goals/Plan:: Some progress. Client continues to indicate difficulties with emotion regulation, specifically during times of increased stress. Client often discusses the circumstances surrounding mood shift as involving a lack of effective communication. She displays insight into behaviors negatively impacting her progress and ability to maintain stability; however, continues to struggle with implementation of skills llearned. Client reports an increase in medication compliance from rare compliance to 3-5 days of consistent medication compliance, reporting that weekends and morings seems to be times of greatest difficulty. Client displaying progress in her ability to implement harms reduction regarding excoriation and former self harming behaviors. Client reports decrease in frequency and duration of excoriation, attributing this to using moisturizers or peeling the skin from an orange when the urge arises. Client additionally disclosed former vaginal self-harming behaviors have ceased as she is no longer experiencing the urge to excessively scrub until lacerating; however continues to engage in dx cleansing rituals up to twice dx via rinsing with water a notch above luke-warm. Client displays improvements in attendance and consistently comes for days scheduled or calls if needing to reschedule. Plan is to continue with current tx goals and continue to work on consistent implementation of healthy coping skills as well as harms reduction behavior. Time Stopped:: 13:15
--- NOTE | 2017-12-26 12:40 | PCM.HP.BLA ---
History and Physical She is seen in follow-up for bipolar disorder F 31.9, borderline personality disorder, anxiety. History is been obtained per interview with patient, discussion with staff, review of chart. Case discussed with treatment team. Chief complaint-mood symptoms and anxiety Interim history Patient continues to struggle with mood symptoms. She reports that overall her depression is somewhat better within the past 2 weeks. She notes however that her irritability has been somewhat more frequent. She appreciates the assistance of a home health nurse and a health high school coach. She reports that this has improved med compliance and that she has generally been compliant with her Luvox for a week and a half. She notes that she did miss doses on Saturday and Saturday due to nausea vomiting and diarrhea. She believes her anxiety was worse after missing the Luvox. It is unclear if her increased irritability represents mixed mood symptoms and has been exacerbated by the antidepressant. She agrees to discuss mood stabilization with her [facility] team later this week. She acknowledges generalized anxiety but notes it is somewhat decreased. He was notified of a Social Security disability award yesterday. Her sleep is generally variable. She has been sleeping more than 12 hours the past few days. She has difficulty maintaining a consistent sleep schedule. Appetite is now improved after an episode of nausea vomiting and diarrhea over the weekend. No current suicidal or homicidal ideation. No symptoms consistent with psychosis. Begin participation in programs including bipolar group. Mental status exam Patient is a 47-year-old female who appears her stated age. She is alert and oriented in no acute distress. She is ambulatory with normal gait and station. She is cooperative with the interview. She has good eye contact. There is no psychomotor agitation or retardation. Mood is dysphoric. Affect congruent. Speech is clear and if regular rate and volume. Language fluent. Thought process organized. Associations logical. Thought content significant for ruminative anxiety. No suicidal or homicidal ideation related to detected. No psychosis related to detected. Immediate recent and remote memory grossly intact. Attention and concentration are fair to good. Estimated intelligence fund of knowledge average. Judgment and insight are fair. Lab work has been requested from primary care physician. Further lab work will be obtained as needed. 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 Risk-benefit alternative medications discussed with patient. Patient acknowledges understanding. Continue fluvoxamine 25 mg p.o. daily as started by Onelia Squires. Just with [facility] care team possibility of need for mood stabilizer. It is unclear if patient's irritability is the result of manic symptoms versus emotional dysregulation secondary to borderline personality disorder. Encouraged ongoing medication compliance. Continue participation in vocalis programs. Encourage follow-up with outpatient providers including Dr. Chris Squires. Encourage follow-up with medical providers and treatment team at [facility] (liver transplant support team). 18 minutes of Insight oriented psychotherapy provided. Patient acknowledges understanding and is in agreement with plan. She feels able to maintain safety. She agrees to seek help or emergency care if feeling unsafe to self or others.
--- NOTE | 2017-12-26 12:44 | HP.PCM_ITS ---
History and Physical She is seen in follow-up for bipolar disorder F 31.9, borderline personality disorder, anxiety. History is been obtained per interview with patient, discussion with staff, review of chart. Case discussed with treatment team. Chief complaint-mood symptoms and anxiety Interim history Patient continues to struggle with mood symptoms. She reports that overall her depression is somewhat better within the past 2 weeks. She notes however that her irritability has been somewhat more frequent. She appreciates the assistance of a home health nurse and a health etiquette coach. She reports that this has improved med compliance and that she has generally been compliant with her Luvox for a week and a half. She notes that she did miss doses on Saturday and Saturday due to nausea vomiting and diarrhea. She believes her anxiety was worse after missing the Luvox. It is unclear if her increased irritability represents mixed mood symptoms and has been exacerbated by the antidepressant. She agrees to discuss mood stabilization with her [facility] team later this week. She acknowledges generalized anxiety but notes it is somewhat decreased. He was notified of a Social Security disability award yesterday. Her sleep is generally variable. She has been sleeping more than 12 hours the past few days. She has difficulty maintaining a consistent sleep schedule. Appetite is now improved after an episode of nausea vomiting and diarrhea over the weekend. No current suicidal or homicidal ideation. No symptoms consistent with psychosis. Begin participation in programs including bipolar group. Mental status exam Patient is a 47-year-old female who appears her stated age. She is alert and oriented in no acute distress. She is ambulatory with normal gait and station. She is cooperative with the interview. She has good eye contact. There is no psychomotor agitation or retardation. Mood is dysphoric. Affect congruent. Speech is clear and if regular rate and volume. Language fluent. Thought process organized. Associations logical. Thought content significant for ruminative anxiety. No suicidal or homicidal ideation related to detected. No psychosis related to detected. Immediate recent and remote memory grossly intact. Attention and concentration are fair to good. Estimated intelligence fund of knowledge average. Judgment and insight are fair. Lab work has been requested from primary care physician. Further lab work will be obtained as needed. 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 Risk-benefit alternative medications discussed with patient. Patient acknowledges understanding. Continue fluvoxamine 25 mg p.o. daily as started by Onelia Squires. Just with [facility] care team possibility of need for mood stabilizer. It is unclear if patient's irritability is the result of manic symptoms versus emotional dysregulation secondary to borderline personality disorder. Encouraged ongoing medication compliance. Continue participation in vocalis programs. Encourage follow-up with outpatient providers including Dr. Chris Squires. Encourage follow-up with medical providers and treatment team at [facility] (liver transplant support team). 18 minutes of Insight oriented psychotherapy provided. Patient acknowledges understanding and is in agreement with plan. She feels able to maintain safety. She agrees to seek help or emergency care if feeling unsafe to self or others.
--- NOTE | 2017-12-26 16:32 | BH.SGPN ---
Service Group Progress Note - Session Psychotherapy Session #2 Date Open:: 12/26/17 Time Started:: 10:14 Time Stopped:: 11:07 Targeted Problem #:: 1 Type of Group:: Illness Management - 3 participants Goal of Group:: The goal of this session was to increase self-awareness of what is holding them back from moving towards mental wellness and discuss importance of taking action in their treatment. Staff Interventions:: Therapist facilitated discussion about what it means to take action in achieving mental health wellness. Therapist led activity in which clients were asked to identify the symptoms and things that they would like to take back control over. Therapist provided support by using active listening. Psychotherapy Session #3 Date Open:: 12/26/17 Time Started:: 11:17 Time Stopped:: 12:16 Targeted Problem #:: 1 Type of Group:: Functional Skills Development - 3 participants Goal of Group:: The goal of this session was to create a 30 day action plan that provides small goals that work towards taking action on one thing they would like to take back control over. Staff Interventions:: Therapist provided materials and guidance to help clients create a 30 day action plan. Therapist provided support by giving feedback and using active listening.
--- NOTE | 2017-12-27 12:11 | BH.SGPN ---
Service Group Progress Note - Session Psychotherapy Session #1 Date Open:: 12/27/17 Time Started:: 09:05 Time Stopped:: 10:00 Targeted Problem #:: 1 Type of Group:: Process Goal of Group:: The goal of today's group was to check-in with client's mood, stressors, and positives, review homework and introduce topic for the day. Client Response/Progress/Benefit:: Client reported feeling frustration with her fianc? because it appears to her he tends to escape when he does not want to deal with her mental health problems. Client shared instead of ruminating about her fianc? she decided to watch a TV series that was really positive instead of watching something that was depressing. Client shared she started to recognize that it is okay to have a mental health diagnosis and still be successful. Client very active participant, commenting others comments and provided support to others. Showing progress as evidenced by client utilizing healthy coping skills and thinking more positively. Eye Contact:: Good Motor Activity:: Appropriate Appearance:: Casual Speech:: Appropriate Mood:: Euthymic Affect:: Congruent Thoughts:: Linear, Logical, No evidence of hallucinations/delusions noted Staff Interventions:: Therapist used open-ended questions to elicit information about client's current stressors and mood state. Therapist was supportive by using active listening and reflection.
--- NOTE | 2017-12-27 14:25 | BH.SGPN_ITS ---
Service Group Progress Note - Session Psychotherapy Session #2 Date Open:: 12/27/17 - 6 participants Time Started:: 10:17 Time Stopped:: 11:13 Targeted Problem #:: 1 Type of Group:: Illness Management Goal of Group:: To increase understanding and awareness of emotions connected to change and the impact those emotions can have on change. Client Response/Progress/Benefit:: Client responded well to session, active participant. Client appeared to connect with the quote sharing ?sometimes I wait to change until everything is perfect, but I know that?s not helpful.? Client able to identify emotions associated with making change such as feeling lost, ambivalent, and overwhelmed. Client reports she belief she is in the preparation stage of change as client is making small steps, however client acknowledged she has difficulty with maintenance. Client appeared to benefit from increasing awareness of the emotions associated with making change and how these emotions impact thoughts, behaviors, and attitude towards change. Client progressing as evidenced by her report of making small changes, but can continue to benefit from maintenance to promote gains. Eye Contact:: Good Motor Activity:: Appropriate Appearance:: Casual Speech:: Appropriate Mood:: Euthymic Affect:: Congruent Thoughts:: Linear, No evidence of hallucinations/delusions noted Staff Interventions:: Therapist facilitated group discussion about change. Therapist led the group in an activity in which the activity was utilized as a tool to increase client?s awareness of emotions connected with change. Therapist led the processing of how each emotion was associated with change. Therapist also educated clients on the stages of change and discussed emotions associated with each stage. Therapist was supportive by providing feedback and using reflective listening. Psychotherapy Session #3 Date Open:: 12/27/17 - 6 participants Time Started:: 11:20 Time Stopped:: 12:10 Targeted Problem #:: 1 Type of Group:: Functional Skills Development Goal of Group:: To identify the challenges associated with making change and identify positive outcomes that have resulted from changes made in past. Client Response/Progress/Benefit:: Client responded well to session, active participant. Client reported change can be difficult because ?setbacks happen which can make you want to quit.? Client stated being flexible and resilient are needed to maintain change. Client stated making personal change is challenging as client procrastinates and gets overwhelmed by where to start. Client reflected on times when change was positive such as when client started taking her medications more consistently. Client appeared to benefit from gaining awareness of the challenges associated with change as well as reflecting on a time when change had a positive outcome. Client reported she would like to continue to work on ?my commitment to small goals? to increase client?s maintenance with change. Eye Contact:: Good Motor Activity:: Appropriate Appearance:: Casual Speech:: Appropriate Mood:: Euthymic Affect:: Congruent Thoughts:: Linear, No evidence of hallucinations/delusions noted Staff Interventions:: Therapist led group in an activity to help group members recognize the challenges associated with change. Therapist utilized activity as a tool to identify ways to manage changes and adapt to the challenges that ensue. Therapist facilitated group discussion about positive outcomes from change.
--- NOTE | 2017-12-30 12:22 | BH.COMM ---
Communication Note - Communication with Client Communication Note: Client contacted this therapist to indicate plans to attend IOP program on in addition to days previously signed-up for. Client additionally shared recently having an appointment with gynecology in which she has been prescribed Fluconazole 150mg/day every 3 days. Client reports since the appointment she has experienced decreased symptomology which is aiding in management of associated maladaptive coping behaviors and ruminative thoughts of uncleanliness. CLient reports two additional new prescritions from [facility] Care team; Sucralfate 100 mg (10 ml) before meals and at bedtime, as well as Carbamazepine 100mg 2x/daily.
--- NOTE | 2017-12-30 12:30 | BH.COMM_ITS ---
Communication Note - Communication with Client Communication Note: Client contacted this therapist to indicate plans to attend IOP program on in addition to days previously signed-up for. Client additionally shared recently having an appointment with gynecology in which she has been prescribed Fluconazole 150mg/day every 3 days. Client reports since the appointment she has experienced decreased symptomology which is aiding in management of associated maladaptive coping behaviors and ruminative thoughts of uncleanliness. CLient reports two additional new prescritions from [facility] Care team; Sucralfate 100 mg (10 ml) before meals and at bedtime, as well as Carbamazepine 100mg 2x/daily.
--- NOTE | 2017-12-30 15:29 | BH.SGPN_ITS ---
Service Group Progress Note - Session Psychotherapy Session #2 Date Open:: 12/20/17 Time Started:: 10:10 Time Stopped:: 11:15 Targeted Problem #:: 1 Type of Group:: Illness Management Goal of Group:: The goal of group was to increase understanding of coping strategies and impact problems have on self. Another goal was to practice utilizing coping skills in the moment. Client Response/Progress/Benefit:: Client contributed her thoughts and ideas to discussion as well as listened attentively to others comments. Client connected with the quote reporting there have been many times in which she has utilized unhealthy coping strategies which is only made her situation worse. Identified lack of motivation to be 1 of the biggest barriers to using healthy coping strategies. During activity client was supportive and shared her thoughts and ideas to help solve the challenge. Seemed to benefit from having the opportunity to utilize her healthy skills in the moment as well as identifying the impact of continuing to use unhealthy coping strategies has on her mental health. Eye Contact:: Fair Motor Activity:: Appropriate Appearance:: Casual Speech:: Appropriate Mood:: Euthymic Affect:: Congruent Thoughts:: Linear, Logical, No evidence of hallucinations/delusions noted Staff Interventions:: Therapist facilitated the group discussion about coping strategies. Therapist group and activity challenge them to work together in utilize healthy coping skills in the moment. Therapist utilized the activity as a tool to process what it feels like when dealing with problems and what strategies they used to cope throughout activity. Psychotherapy Session #3 Date Open:: 12/20/17 Time Started:: 11:22 Time Stopped:: 12:12 Targeted Problem #:: 1 Type of Group:: Functional Skills Development Goal of Group:: The goal of group was to increase client???s ability to recognize the different between an internal and external coping strategy. Another goal was to increase client???s self-awareness on their use of coping strategies and increase repertoire of healthy coping strategies. Client Response/Progress/Benefit:: Client listened attentively to others in contributed positively to discussion. During group brainstorming of healthy coping strategies client able to share several different positive skills that have helped her in the past. Identified for her healthy coping skills menu skill she is willing to try include: Reading, journaling, exercise, guided imagery, and radical acceptance. Seemed benefit from increasing repertoire of healthy coping strategies as well as identifying specific skills she is willing to try. Eye Contact:: Good Motor Activity:: Appropriate Appearance:: Casual Speech:: Appropriate Mood:: Euthymic Affect:: Congruent Thoughts:: Linear, Logical, No evidence of hallucinations/delusions noted Staff Interventions:: Therapist facilitated discussion about the different types of coping skills. Therapist led group in an activity in which group members were asked to brainstorm coping strategies that fit in each coping skill category. Therapist led a discussion about whether the coping strategies identified were healthy or unhealthy.
--- NOTE | 2017-12-30 15:30 | BH.SGPN_ITS ---
Service Group Progress Note - Session Psychotherapy Session #1 Date Open:: 12/26/17 Time Started:: 09:06 Time Stopped:: 09:58 Targeted Problem #:: 1 Type of Group:: Process Goal of Group:: The goal of today's group was to check-in with client's mood, stressors, and positives, review homework and introduce topic for the day. Client Response/Progress/Benefit:: Client reported last week she had a lot of trouble with her liver disease which resulted in her feeling really sick throughout the week and weekend. Reported she did not feel any support from her fianc? because he tended to just leave her alone. Shared she was able to communicate her thoughts and feelings to her fianc? about not feeling supported , which led to positive discussion and a reconnection between the 2 of them. Client shared her mood has been up and down with some irritability throughout the day. Reported she has been sleeping during the day more which she recognizes as not the best scale. Reported on Saturday she had a lot of anger which she attributes to not being able to keep her medication down over the weekend due to being sick. Recognizes the need for her to take time to care for herself because she tends to put so much energy and effort into helping others but does not have enough left to help herself. Client seemed to benefit from expressing thoughts and emotions. Client progress may be hindered by her inconsistent use of healthy coping strategies. Eye Contact:: Fair Motor Activity:: Appropriate Appearance:: Casual Speech:: Appropriate Mood:: Euthymic, Dysthymic Affect:: Congruent Thoughts:: Linear, Logical, No evidence of hallucinations/delusions noted Staff Interventions:: Therapist used open-ended questions to elicit information about client's current stressors and mood state. Therapist was supportive by using active listening and reflection.
--- NOTE | 2018-01-01 10:34 | BH.SGPN_ITS ---
Service Group Progress Note - Session Psychotherapy Session #1 Date Open:: 01/01/18 - 7 group members Time Started:: 08:57 Time Stopped:: 10:07 Targeted Problem #:: 1 Type of Group:: Process Goal of Group:: The goal of today's group was to check-in with client's mood, stressors, and positives, review homework and introduce topic for the day. Client Response/Progress/Benefit:: Client responded well to session, very engaged and supportive to peers. Client reports feeling proud today as client has been medication compliant more consistently and as a result client's mood has improved. Client shared I notice I'm not blowing up lately and I have a positive outlook. Client reported after not having her teeth for a long period of time, I finally got my teeth. Client shared this has increased her self- esteem and made client feel like her old self. Client stated she would like to continue to improve motivation to organize and was receptive to group feedback on ideas to increase motivation. Client appeared to benefit from receiving supportive statements from peers and reflecting on her progress. Client progressing as shown by her report of an improved mood, increased self-esteem, and medication compliance. Client can continue to work on maintenance and consistency to prevent setbacks. Eye Contact:: Good Motor Activity:: Appropriate Appearance:: Neat - wearing makeup, hair done. Speech:: Appropriate Mood:: Euthymic - smiling, excited about her teeth Affect:: Congruent Thoughts:: Linear, No evidence of hallucinations/delusions noted Staff Interventions:: Therapist used open-ended questions to elicit information about client's current stressors and mood state. Therapist was supportive by using active listening and reflection.
--- NOTE | 2018-01-01 14:45 | BH.SGPN ---
Service Group Progress Note - Session Psychotherapy Session #2 Date Open:: 01/01/18 Time Started:: 10:20 Time Stopped:: 11:10 Targeted Problem #:: 1 Type of Group:: Illness Management - 7 participants Goal of Group:: To increase understanding of what strengths are and identify individual strengths. Client Response/Progress/Benefit:: Client attentive and a positive participant throughout. She provided significant levels of input throughout the discussion reviewing the impact our thoughts have on how we live our lives, indicating that when she isn't doing well or has negative thoughts she tends to isolate or lash out on her family which ends up making her feel worse. Client did well to identify potential benefits of challenging herself to adapt a strengths based approach to self talk. She indicated her strengths as her sense of creativity, humor, ability to problem solve, leadership, and being goal driven. Client benefitted from reflecting upon what contributes to her ability to identify strengths and showed progress in levels of insight related to how miscommunication often is a major barrier to her identifying strengths. Recommended to continue with IOP tx to work on identifying and implamenting effective communication strategies. Eye Contact:: Good Motor Activity:: Appropriate Appearance:: Casual Speech:: Appropriate Mood:: Euthymic Affect:: Full Thoughts:: Linear, Logical, No evidence of hallucinations/delusions noted Staff Interventions:: Therapist facilitated discussion about what are strengths and assisted group members in identifying examples of strengths. Therapist led an activity in which group members were given the opportunity to identify five personal strengths and how not utilizing these strengths may prevent progress and successful management of mental health symptoms. Therapist assisted clients in connecting the importance of recognizing personal strengths in order to most effectively manage mental health symptoms. Psychotherapy Session #3 Date Open:: 01/01/18 Time Started:: 11:19 Time Stopped:: 12:17 Targeted Problem #:: 1 Type of Group:: Functional Skills Development - 6 participants Goal of Group:: To identify what gets in their way of recognizing and utilizing their strengths and identifying ways to challenge negative thoughts preventing strengths recognition as well as make strengths easier to access. Client Response/Progress/Benefit:: Client again did well to respond to session and was actively engaged in both the activity and discussion portions. Client did well to identify the various barriers and supports encountered during the problem solving activity as well as relate this back to the barriers and supports encountered when attempting to actively apply a strengths based perspective in daily life. Client benefitted from the introduction of the S.O.S. (Stop, Observe, and Shift) technique to challenge her identified barrier of negative thinking and displayed progress in her ability to independently apply thought replacing strategies. Recommended continued IOP to further improve ability to consistently apply healthy coping skills. Eye Contact:: Good Motor Activity:: Appropriate Appearance:: Casual Speech:: Appropriate Mood:: Euthymic Affect:: Full Thoughts:: Linear, Logical, No evidence of hallucinations/delusions noted Staff Interventions:: Therapist utilized an activity as a tool in helping clients recognize the things that can get in their way from utilizing their strengths and identify alternative ways to view these barriers. Therapist processed the activity, helping others connect challenges that keep them from recognizing and using their strengths. Therapist provided support by using active listening and providing feedback.
--- NOTE | 2018-01-02 12:10 | BH.MDN ---
Multi-Disciplinary Note - Note 45-min Individual Time Started:: 09:32 Date: 01/02/18 Purpose of session/treatment goals addressed:: The purpose of this session was to check-in with Client ongoing medication management and continued progress towards treatment goals, as well as use of healthy coping skills during times of increased frustrations. Another purpose was to discuss Client goals and expectations for upcoming family therapy session. Eye Contact:: Good Motor Activity:: Appropriate Appearance:: Casual Speech:: Appropriate Mood:: Euthymic, Anxious Affect:: Full Thoughts:: Linear, Logical, No evidence of hallucinations/delusions noted Time Stopped:: 10:17
--- NOTE | 2018-01-03 15:00 | BH.SGPN_ITS ---
Service Group Progress Note - Session Psychotherapy Session #1 Date Open:: 01/03/18 Time Started:: 09:10 Time Stopped:: 10:02 Targeted Problem #:: 1 Type of Group:: Process - 6 Participants Goal of Group:: The goal of today's group was to check-in with client's mood, stressors, and positives, review homework, and to introduce the topic of the day. Client Response/Progress/Benefit:: Client entered session alert, attentive, and willing to engage. Client was supportive and encouraging to peers. Client stated, ?I feel like I have improved a lot over the past couple of weeks,? and continued to share how she feels the meds are helping and she is more motivated to set and achieve goals than before. Client spoke about how she has been applying skills in her daily life and using calming strategies when communicating with her family to prevent escalation. She states, ?I noticed when my fianc? and I got into it when I would yell he?d start yelling or even with my kids so now when I?m calm they stay calm too.? Client continued to share how she plans on communicating with her fianc? about needing more time with him but also accepting where she is at with him. Client reported goals of going back to school and possibly looking into the career field of the [employer]. Client indicated her emotion as happy and benefitted from group by sharing success and c elebrating with peers. Progress noted in client?s ability to implement coping skills and reframe negative thoughts. Continued treatment necessary to maintain gains. Eye Contact:: Good Motor Activity:: Appropriate Appearance:: Neat Speech:: Appropriate Mood:: Euthymic Affect:: Full Thoughts:: Linear, Logical, No evidence of hallucinations/delusions noted Staff Interventions:: Therapist used open-ended questions to elicit information about client's current stressors and mood. Therapist was supportive by using active listening and reflection. Psychotherapy Session #2 Date Open:: 01/03/18 Time Started:: 10:15 Time Stopped:: 11:06 Targeted Problem #:: 1 Type of Group:: Illness Management - 9 Participants Goal of Group:: To increase understanding of resilience and the importance of looking at problems in different ways. Client Response/Progress/Benefit:: Client entered session alert, attentive, and willing to engage. Active participant. Client connected with the days quote stating, ?I had to work hard to find my identity and take a different direction than what I was on. I had to try something new to reveal who I am.? Client participated in group activity that allowed client to use problem solving skills in an area that may appear impossible but once working as a group and using different perspectives to solve the problem client was able to successfully complete activity. After completing activity client stated, ?It?s easier to find the failures in what we do because it takes work to find the positives so we end up staying with the pain and suffering.? Client benefitted from group by gaining awareness of how one?s outlook on misfortunes can impact mental health symptoms and functioning. Progress noted in client?s increased insight on negative thoughts. Continued treatment necessary to maintain gains. Eye Contact:: Good Motor Activity:: Appropriate Appearance:: Neat Speech:: Appropriate Mood:: Euthymic Affect:: Full Thoughts:: Linear, Logical, No evidence of hallucinations/delusions noted Staff Interventions:: Therapist facilitated discussion about resilience and the importance of being resilient in the face of adversity. Therapist led group in an activity that would initially seem impossible to complete, but once group members looked at the problem in a different way they would be able to see alternative solutions. Therapist utilized the activity as a tool to discuss overcoming those situations that seem impossible to get through.
--- NOTE | 2018-01-07 12:12 | BH.MDN ---
Multi-Disciplinary Note - Note Family Time Started:: 10:30 Date: 01/07/18 Purpose of session/treatment goals addressed:: The purpose of this session was to further engage client's main identified support, her significant other, in the treatment process by providing psychoeducation regarding effective communication strategies and ways to continue to support and encourage Client progress in managing mental health symptoms. Other topics discussed include: relationship expectations, goals, and strengths, as well as ways to begin increasing quality time spent together. Eye Contact:: Good Motor Activity:: Appropriate Appearance:: Casual Mood:: Anxious, Depressed Affect:: Constricted Thoughts:: Logical, No evidence of hallucinations/delusions noted Staff Interventions:: Therapist provided a safe and inviting environment for Client to discuss with her s/o strategies to best supporting Client mental health management. Used reflective listening and strengths based perspective to facilitate conversation regarding communication difficulties and concerns. Provided education on the five love languages and reviewed ways each relates to communication needs and expression. Use motivational interviewing techniques to encourage Client to work with s/o in identifying small goals they may begin incorporating in order to work towards described mutual goals for continuing to cultivate the relationship and best support Client in managing mental health needs. Client Response:: Client was willing to participate in therapy session with her significant other and did well to openly discuss her goals and expectations for the session as well as actively listen as her partner shared a desire to increase their ability to communicate during times in which Client is emotionally deregulated. Both were able to provide input openly and receptively as well as give feedback to the discussion. Client expressed gratitude to her significant other for his patience and willingness to continue to support her. Client was able to advocate for herself and acknowledged some of the barriers she has recognized impacting their relationship and ability to support one another. Client indicated knowing that past medication noncompliance has had negative consequences on their ability to effectively communicate and caused increase tension and displaced emotions. She shared feeling her emotions have been increasingly regulated since remaining compliant with medications, to which her partner agreed. Client discussed that having her partner provide recognition of her small accomplishments may aid in continuing to promote progress in those areas. She additionally indicated a desire to increase time spent with her partner where they are able to enjoy each others company and not focus on current stressors or things that need to be done. Client did well to recieve feedback regarding her partner's concerns of feeding into CLient's fequently asking for validation and did well to establish a compromise of having established times for them to check-in with each other and acknowledge what the other has been working on daily. CLient and s/o expressed plan to begin implementing set days for them to spend atleast one hour of time together not focused on obligations or current stressors. Therapist discussed benefits of continuing to engage in regular couple's counseling services in order to explore and strengthen their ability to support one another. Risks/Concerns:: No risks at this time. Client denies active SI, plan, or intent as on 01/07/18. Client identifies her family and wanting to work towards attaining her Phd as main motivating factors. She displayed future orientation as Client indicates plans to come up wih a creative and free idea for she and her s/o to do together this weekend. Progress Toward Goals/Plan:: Client progressing towards treatment goals as evidenced by her continued reports of improved medication compliance, reduced agitation and irritability, increased goal oriented behaviors, and decreased depressive symptoms. Client continues to report difficulties with motivation at time and struggles to clearly communicate needs, frustrations, or concerns with her supports. She is progressing in her ability to set small goals and follow through with them which has aided in improving regular hygiene, attendance, and self-confidence levels. Client to continue in IOP program in order to further promote consistent implementation of healthy coping and stress management skills identified as well as continue to promote gains made and maintain mood stability. Time Stopped:: 11:45
--- NOTE | 2018-01-08 14:59 | BH.MDN ---
Multi-Disciplinary Note - Note 45-min Individual Time Started:: 11:40 Date: 01/08/18 Purpose of session/treatment goals addressed:: The purpose of this session was to review with Client stressors, progress towards treatment goals, and strategies for maintaining gains made. Another purpose was to process with CLient a recent influx in anxiety related to her relationship with her children and feelings of being an inadequate as well as identify potential ways she can reframe or challenge these thoughts. Began discharge planning. Eye Contact:: Good Motor Activity:: Appropriate Appearance:: Casual Speech:: Appropriate Mood:: Euthymic, Anxious Affect:: Full Thoughts:: Linear, Logical, No evidence of hallucinations/delusions noted Staff Interventions:: Therapist asked open-ended and furthering questions in order to gather additional information regarding current symptoms, stressors, and treatment goal progress. Used strengths perspective as well as concepts of reflective listening, empathic responses, and supportive feedback to normalize Client anxieties, identify successes, and continue to promote healthy change and maintenance behaviors. Discussed goals moving forward and began discharge planning. Client Response:: Client agreeable to session and did well to remain actively engaged in the discussion throughout. She discussed that she had felt relieved to have gone through with having a family therapy session with her significant other on the previous date as she had felt heard and validated. Client reflected that the session had aided her in identifying times she may be disqualifying the small things her significant other does to show his love and support, such as never leave the house without telling her he loves her. Client reports that taking time to appreciate the little things may help to alleviate some of her lonliness and fear that Sj is losing interest. Client went on to share that they had successfully taken several breaks to check-in with each other throughout the remainder of the night which she found helpful and would like to continue to implement. Client reports that overall she feels she has made much progress since beginning the program and is feeling as though her mood is more stable than she has been able to remember in quite some time. CLient shared that challenging her thoughts, trying to see things from the other person's perspective, and setting small goals has been helpful in maintaining progress. She shared feeling as though she is almost ready to discharge from the program however has recently been ruminating upon her ability to be a good mother for her children which has caused some increased anxiety and self-doubt. Client went on to share that she believes these thoughts were triggered by her daughter telling her she was going to move in with her bio-father. Client indicated feeling that her mood instability and angry outbursts from when first beginning the program had been the major cause of her daughter making this decision. Client did well to work with therapist on identifying potential ways to reframe and challenge her use of negative self-talk related to this. Client initially struggled in doing so, however eventually identified that this did not mean her daughter would never see her and that time apart could potentially allow for them to heal and work on rebuilding trust. Client successfully identified evidence against the thought that she is a bad mother by finding areas in which she feels confident as a mother. Client discussed being the only one who can really get her son who has autism to complete his hygiene routine and is good at coming up with creative ways to spend time with her children. Client expressed wanting to find more activities she may become involved in upon completing the program as she is scheduled for discharge next week, 01/17. Risks/Concerns:: No risks at this time. Client denies active SI, plan, or intent as on 01/07/18. She continues to report obsessively vaginal cleaning has not exceeded twice daily. Client continues to identify her family and wanting to work towards attaining her Phd as main motivating factors. She displayed future orientation as Client indicates plans to spend time with her son this evening. Progress Toward Goals/Plan:: Progress made. CLient continues to consistently maintain medication compliance and is actively working to accomplish daily small goals. She reports successfully applying healthy coping skills during times of increased stress and agitation by trying to put herself in the other person's shoes or reframe her thouhghts. Client continues to struggle with distorted thinking patterns via personalization and ruminating thought however is displayed an improvement in ability to challenge these. Continued IOP until 01/17 to complete discharge planning, maintain stability, and continue to reinforce healthy change and coping behaviors. Time Stopped:: 12:20
--- NOTE | 2018-01-08 15:09 | BH.SGPN ---
Service Group Progress Note - Session Psychotherapy Session #2 Date Open:: 01/08/18 - 10 group members Time Started:: 10:25 Time Stopped:: 11:19 Targeted Problem #:: 1 Type of Group:: Illness Management Goal of Group:: To increase understanding of what conflict is and increase awareness of how group members manage conflict. Client Response/Progress/Benefit:: Client responded well to session, active participant. Client processed the quote with peers, sharing if you don't deal with conflict it doesn't go away. Client discussed the different types of conflict as well as how people can experience internal conflict of emotions and thoughts. Client helped group identify the different types of conflict resolution styles as well as the benefits and costs of each. Client reported she uses the competing conflict resolution style as client states I think it's important to stick up for yourself. Client shared this style can sometimes negatively impact client's mental health and relationships as client reported it can make others upset. Client appeared to benefit from increasing awareness of how one's conflict resolution style impacts mental health and relationships. Client progressing as evidenced by her report of increased mood stability, but can continue to benefit from being mindful of her approach to dealing with difficult situations. Eye Contact:: Fair Motor Activity:: Slowed Appearance:: Neat Speech:: Soft Mood:: Dysthymic Affect:: Congruent Thoughts:: Linear Staff Interventions:: Therapist facilitated discussion about conflict and conflict resolution. Therapist led group in an activity in which group members had to identify their initial response to conflict and how their response changes based on different situations. Therapist assisted clients with connecting the impact current conflict style has on their mental health.
--- NOTE | 2018-01-09 14:41 | BH.SGPN ---
Service Group Progress Note - Session Psychotherapy Session #1 Date Open:: 01/09/18 - 5 group members Time Started:: 09:07 Time Stopped:: 10:10 Targeted Problem #:: 1 Type of Group:: Process Goal of Group:: The goal of today's group was to check-in with client's mood, stressors, and positives, review homework and introduce topic for the day. Client Response/Progress/Benefit:: Client responded well to session, participating in discussion and providing supportive feedback to peers. Client reports feeling in control as client states she is trying to make the most out of a difficult situation. Client shared her son's school had a shooting threat which resulted in the school questioning her son's behavior as client's son has said inappropriate things at school in the past due to his autism. Client reported it's just heartbreaking because he doesn't mean those things and I don't want him to get in trouble. Client stated she is working with her son's counselor to determine a plan of action to best support his mental health and education. Client reports belief she is coping well with the situation as client stated, I'm looking at it as there's a reason for this and we will get through it. Client shared she plans to address her own mental health needs by spending the day with her daughter and focusing on self-care. Client appeared to benefit from reframing a negative situation and focusing on stressors in her control. Client progressing as evidenced by her medication compliance and mood stability, but can continue to benefit from maintenance. Eye Contact:: Good Motor Activity:: Appropriate Appearance:: Neat - makeup and dress clothes Speech:: Appropriate Mood:: Euthymic Affect:: Congruent Thoughts:: Linear, No evidence of hallucinations/delusions noted Staff Interventions:: Therapist used open-ended questions to elicit information about client's current stressors and mood state. Therapist was supportive by using active listening and reflection.
--- NOTE | 2018-01-10 11:12 | BH.SGPN ---
Service Group Progress Note - Session Psychotherapy Session #1 Date Open:: 01/10/18 Time Started:: 09:05 Time Stopped:: 10:00 Type of Group:: Process - 6 group members Goal of Group:: The goal of today's group was to check-in with client's mood, stressors, and positives, review homework and introduce topic for the day. Client Response/Progress/Benefit:: Pt was an active participant in group discussion. Emotion for today is confident. Shared with the group some stressors in the past week related to additional requirements from her child's school regarding his mental health treatment. She reports that she has been following through with goals and tasks required of her through her medical and psych teams. Taking her medications on a more consistent basis and feels more in control of her life and thoughts. Feels motivated as well. Significant progress as she is being more consistently stable which is postively impacting her life and health. Continued treatment to maintain gains and prevent decompensation. Eye Contact:: Good Motor Activity:: Appropriate Appearance:: Neat Speech:: Appropriate Mood:: Euthymic Affect:: Full, Bright Thoughts:: Linear, Logical, No evidence of hallucinations/delusions noted Staff Interventions:: Therapist used open-ended questions to elicit information about client's current stressors and mood state. Therapist was supportive by using active listening and reflection.
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
--- NOTE | 2018-01-14 12:51 | BH.SGPN ---
Service Group Progress Note - Session Psychotherapy Session #3 Date Open:: 01/14/18 Time Started:: 11:15 Time Stopped:: 12:05 Targeted Problem #:: 1 Type of Group:: Functional Skills Development - 9 Participants Goal of Group:: To identify ways of defeating cognitive distortions and rehearse defeating the identified cognitive distortion. Client Response/Progress/Benefit:: Client entered session alert, attentive, and willing to engage. Client was a big contributor to group. Client participated in small group activity and work with peers to reframe negative thoughts with positive thoughts. Client was able to reframe and identify her own thought and stated, I thought I would never get my PhD from [employer] and that made me feel disappointed, stupid, and like I was a dreamer. I was labeling, using all or nothing thinking, and jumping to conclusions but in reality, I can do this. 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 Client benefitted from discussing cognitive distortions and reframing her own negative thought. Progress noted at clients increased awareness and ability to reframe her thoughts. Continued treatment necessary to prevent decompensation. Eye Contact:: Good Motor Activity:: Appropriate Appearance:: Casual Speech:: Appropriate Mood:: Euthymic Affect:: Full Thoughts:: Linear, Logical, No evidence of hallucinations/delusions noted Staff Interventions:: Therapist provided group members with a handout to use as an aid when trying to defeat their unhelpful thinking. Therapist provided support by clarifying activities and providing feedback. Therapist facilitated group in the role playing of defeating cognitive distortions.
--- NOTE | 2018-01-14 16:18 | BH.SGPN ---
Service Group Progress Note - Session Psychotherapy Session #2 Date Open:: 01/14/18 - group members Time Started:: 10:11 Time Stopped:: 11:10 Targeted Problem #:: 1 Type of Group:: Illness Management Goal of Group:: To increase understanding of cognitive distortions, identify examples of when have had unhelpful thinking, and increase awareness of the impact cognitive distortions have on mental health. Client Response/Progress/Benefit:: Client responded well to session, active in discussion. Client appeared to connect with the quote, stating, we can make things better or worse with our thoughts. Client helped group process negative automatic thoughts and the different types of cognitive distortions. Client reported I tell myself everything has to be perfect or I cant do it which causes client to procrastinate and have self-doubt. Client shared she often uses all or nothing thinking, personalizing, and emotional reasoning. Client connected how her cognitive distortions negatively impact her emotions and lead to unhealthy coping skills. Client appeared to benefit from increasing awareness of cognitive distortions and connecting how the distortions impact mental well-being. Client progressing as shown by her report of increased thought challenging, but can continue to benefit from maintenance. Eye Contact:: Good Motor Activity:: Appropriate Appearance:: Neat Speech:: Appropriate Mood:: Dysthymic Affect:: Congruent Thoughts:: Linear, No evidence of hallucinations/delusions noted Staff Interventions:: Therapist utilized a quote as a tool to introduce topic of the day. Therapist provided group members with a handout that listed ten cognitive distortions with examples. Therapist facilitated group discussion about cognitive distortions. Therapist led group members in an activity to help them understand the impact cognitive distortions can have on emotions and behavior. Therapist provided support by using active listening and providing feedback.
--- NOTE | 2018-01-14 16:26 | BH.SGPN_ITS ---
Service Group Progress Note - Session Psychotherapy Session #2 Date Open:: 01/14/18 - group members Time Started:: 10:11 Time Stopped:: 11:10 Targeted Problem #:: 1 Type of Group:: Illness Management Goal of Group:: To increase understanding of cognitive distortions, identify examples of when have had unhelpful thinking, and increase awareness of the impact cognitive distortions have on mental health. Client Response/Progress/Benefit:: Client responded well to session, active in discussion. Client appeared to connect with the quote, stating, ?we can make things better or worse with our thoughts.? Client helped group process negative automatic thoughts and the different types of cognitive distortions. Client reported ?I tell myself everything has to be perfect or I can?t do it? which causes client to procrastinate and have self-doubt. Client shared she often uses all or nothing thinking, personalizing, and emotional reasoning. Client connected how her cognitive distortions negatively impact her emotions and lead to unhealthy coping skills. Client appeared to benefit from increasing awareness of cognitive distortions and connecting how the distortions impact mental well-being. Client progressing as shown by her report of increased thought challenging, but can continue to benefit from maintenance. Eye Contact:: Good Motor Activity:: Appropriate Appearance:: Neat Speech:: Appropriate Mood:: Dysthymic Affect:: Congruent Thoughts:: Linear, No evidence of hallucinations/delusions noted Staff Interventions:: Therapist utilized a quote as a tool to introduce topic of the day. Therapist provided group members with a handout that listed ten cognitive distortions with examples. Therapist facilitated group discussion about cognitive distortions. Therapist led group members in an activity to help them understand the impact cognitive distortions can have on emotions and behavior. Therapist provided support by using active listening and providing feedback.
--- NOTE | 2018-01-15 14:44 | BH.SGPN ---
Service Group Progress Note - Session Psychotherapy Session #2 Date Open:: 01/15/18 Time Started:: 10:32 Time Stopped:: 11:22 Targeted Problem #:: 1 Type of Group:: Illness Management Goal of Group:: To increase self-awareness of current reality in regards to mental wellness and desired mental wellness. Client Response/Progress/Benefit:: Client contributed to discussion and listened attentively to others. Client seemed to connect with the quote reporting oftentimes she sets herself up a lot more than others do. Able to connect with others comments about the barriers that one sets in front of self that leads to ultimate failure. Client reported for her current situation she feels like a unicorn explaining she has a lot of goals in her life but currently she is doubting if they are realistic or attainable. Client shared for her desired reality she wants to be a horse in which she is no longer doubting herself and feel confident in the goals that she has because if she looks at her past there is a lot of things that she is accomplished and she wants to feel confident she can continue to accomplish more. Seemed benefit from increasing awareness of her current and desired reality. Client also able to reflect on the progress she has made because of when she first started the program her current and desire would be a lot different. Eye Contact:: Fair Motor Activity:: Appropriate Appearance:: Casual Speech:: Appropriate Mood:: Euthymic Affect:: Flat Thoughts:: Linear, Logical, No evidence of hallucinations/delusions noted Staff Interventions:: Therapist facilitated group discussion about current reality in regards to mental health. Client provided each group member a piece of paper and asked them to draw their current reality. Therapist led the processing of each group members drawing. Therapist provided each group member with a second piece of paper and asked clients to draw desired mental wellness. Therapist processed each group members drawing, helping clients connect the two realities. Psychotherapy Session #3 Date Open:: 01/15/18 Time Started:: 11:32 Time Stopped:: 12:22 Targeted Problem #:: 1 Type of Group:: Functional Skills Development Goal of Group:: To identify obstacles in clients path to mental wellness and identify strategies to help one overcome various obstacles. Client Response/Progress/Benefit:: Client listened attentively to others and contributed positively discussion. Client identified her barriers that are keeping her from getting to her desired reality include: Lack of confidence in self, self-worth, fear failure, lack of support, and procrastination. Client reported procrastination to be the biggest barrier to her desired reality because she often puts things back and sometimes until it is too late. Client elected to not participate in the group activity however did observe throughout and make help group problem solve various barriers identified throughout the activity. Seemed benefit from identifying strategies that can help her overcome various barriers. Eye Contact:: Fair Motor Activity:: Appropriate Appearance:: Casual Speech:: Appropriate Mood:: Euthymic Affect:: Flat Thoughts:: Linear, Logical, No evidence of hallucinations/delusions noted Staff Interventions:: Therapist facilitated group discussion about obstacles and the hesitations of overcoming obstacles. Client led group in activity that gave client the opportunity to problem solve various obstacles throughout. Therapist helped clients connect how each obstacle is preventing them from achieving their desired reality. Therapist provided support by using reflective listening and providing feedback.
--- NOTE | 2018-01-17 11:51 | BH.SGPN_ITS ---
Service Group Progress Note - Session Psychotherapy Session #2 Date Open:: 01/10/18 Time Started:: 10:15 Time Stopped:: 11:10 Targeted Problem #:: 1 Type of Group:: Illness Management Goal of Group:: The goal of group was to increase understanding of goals and goal setting and practice a method of goal setting. Client Response/Progress/Benefit:: Pt contributed to discussion and listened attentively to others. Pt connected with quote reported goal setting is important beause goals can help motivate you and gives you a sense of direction. Reported she connects goal setting to a road trip because without a plan you'll just be roaming aimlessly. Pt worked cooperatively with peers in identifying realistic goals during activity. Seemed to benefit from group discussion about importance of having goals as well as identifying what commonly keeps people from setting goals. Eye Contact:: Good Motor Activity:: Appropriate Appearance:: Casual Speech:: Appropriate Mood:: Euthymic Affect:: Constricted Thoughts:: Linear, Logical, No evidence of hallucinations/delusions noted Staff Interventions:: Therapist facilitated group discussion about goals and goal setting. Therapist taught group the acronym SMART (Specific, Measurable, Achievable, Realistic, Timely) as a tool to help with goal setting. Therapist led the group in an activity to be used as a method of practicing goal setting. Therapist guided the group through the SMART acronym as group was participating in activity. Therapist assisted group members with connecting the importance of making small, realistic goals. Psychotherapy Session #3 Date Open:: 01/10/18 Time Started:: 11:15 Time Stopped:: 12:05 Targeted Problem #:: 1 Type of Group:: Functional Skills Development Goal of Group:: The goal of group was to identify a goal for the weekend, explore the potential barriers to achieving that set goal, and identify strategies to overcome barriers. Client Response/Progress/Benefit:: Pt seemed a bit disengaged throughout session AEB pt not fully participating in activity, despite therapist attempts to adjust activity to fit her siuation. Pt listened to others comments. Pt reported she did not want to set anohter goal because believed she had enough and didn't want to overwhelm herself. Pt was asked to evaluate her current goals to assess goal progress. Pt reported one of her goals is to take her medications 4 out of 7 days and she reported thus far surpassing her goal by taking her medications everyday. 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 Seemed to benefit from reviewing current goal progress. Eye Contact:: Good Motor Activity:: Appropriate Appearance:: Casual Speech:: Appropriate Mood:: Euthymic Affect:: Constricted Thoughts:: Linear, Logical, No evidence of hallucinations/delusions noted Staff Interventions:: Therapist facilitated group activity in which group members identified a goal to work on over the next week. Therapist asked group members to identify barriers to achieving identified goal and strategies to help them achieve their goal. Therapist led group in processing their goal maps , assisting clients with establishing SMART goals. Therapist provided support by using reflective listening.
--- NOTE | 2018-01-20 12:51 | BH.SGPN_ITS ---
Service Group Progress Note - Session Psychotherapy Session #3 Date Open:: 01/14/18 Time Started:: 11:15 Time Stopped:: 12:05 Targeted Problem #:: 1 Type of Group:: Functional Skills Development - 9 Participants Goal of Group:: To identify ways of defeating cognitive distortions and rehearse defeating the identified cognitive distortion. Client Response/Progress/Benefit:: Client entered session alert, attentive, and willing to engage. Client was a big contributor to group. Client participated in small group activity and work with peers to reframe negative thoughts with positive thoughts. Client was able to reframe and identify her own thought and stated, ?I thought I would never get my PhD from [employer] and that made me feel disappointed, stupid, and like I was a dreamer. I was labeling, using all or nothing thinking, and jumping to conclusions but in reality, I can do this. 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 Client benefitted from discussing cognitive distortions and reframing her own negative thought. Progress noted at clients increased awareness and ability to reframe her thoughts. Continued treatment necessary to prevent decompensation. Eye Contact:: Good Motor Activity:: Appropriate Appearance:: Casual Speech:: Appropriate Mood:: Euthymic Affect:: Full Thoughts:: Linear, Logical, No evidence of hallucinations/delusions noted Staff Interventions:: Therapist provided group members with a handout to use as an aid when trying to defeat their unhelpful thinking. Therapist provided support by clarifying activities and providing feedback. Therapist facilitated group in the role playing of defeating cognitive distortions.
== END 2018-01-15 23:59 ==
LOC: BHIOP 09:00
PROVIDERS: Family Provider Internal Medicine; PCP Internal Medicine; Visit Provider Psychiatry & Neurology Psychiatry
DX: F31.9 Bipolar disorder, unspecified (principal); F60.3 Borderline personality disorder; F41.9 Anxiety disorder, unspecified; F44.9 Dissociative and conversion disorder, unspecified; E11.9 Type 2 diabetes mellitus without complications; E06.3 Autoimmune thyroiditis; K76.89 Other specified diseases of liver
CPT/HCPCS: 90833; 99214; H0035; H2012; H2020; 90832; 90834; 90837; 90847

== ENCOUNTER 2018-01-17 09:00 | Outpatient (RCR) | payer MEDICAID, SELFPAY ==
[2018-01-16 00:52] VITALS: BP 121/65; PULSE 92; RESP 14; TEMP 36.7
--- NOTE | 2018-01-17 10:45 | BH.AFTERPLAN ---
Aftercare Plan - Demographics Treatment End Date:: 01/17/18 Psychiatrist:: Susan Rizzo Psychiatrist Office #:: [phone] [facility] Therapist:: Mariel Ramos Therapist Phone #:: [phone] - Medications Home Medications: Home Medications Potassium Chloride [Klor-Con M20] 20 meq PO DAILY 09/25/15 Albuterol Inhaler [Ventolin Hfa] 2 puff INHALATION Q4H PRN PRN 02/16/16 Furosemide [Lasix] 80 mg PO DAILY 03/14/17 Insulin Lispro [Humalog] 10 units SC TIDCM 03/14/17 Lactulose [Chronulac] 20 gm PO TID 03/14/17 Magnesium Oxide [Magnesium] 400 mg PO BID 03/14/17 Omeprazole [Prilosec] 20 mg PO DAILY 03/14/17 Ondansetron [Zofran Odt] 4 mg PO BID PRN 03/14/17 Metoclopramide [Reglan] 10 mg PO BID PRN 04/28/17 Spironolactone [Aldactone] 200 mg PO DAILY 04/28/17 TraMADol [Ultram] 50 mg PO Q6H PRN PRN 04/28/17 Sennosides/Docusate Sodium [Senna Plus Tablet] 1 each PO DAILY PRN 04/29/17 Baclofen 10 mg PO QHS 11/04/17 Cholecalciferol (Vitamin D3) [Optimal D3] 50,000 unit PO QWEEK 11/04/17 Dicyclomine HCl [Bentyl] 10 mg PO TIDAC 11/04/17 Fluvoxamine Maleate [Luvox] 25 mg PO QHS 11/04/17 Rifaximin [Xifaxan] 550 mg PO BID 11/04/17 Ursodiol [Actigall] 300 mg PO BID 11/04/17 Insulin Glargine,Hum.rec.anlog [Lantus] 15 unit SQ QHS 11/26/17 - Plan Details Progress/Aftercare Plan Details:: Client has been an active participant and excellent group member throughout the duration of her time in the [facility] program. She has done well to maintain consistent and regular attendance and has demonstrated notable progress during her time in [facility]. Client's progress is noted by observable differences in her levels of motivation and energy as well as self-report of reduced anxiety and depression and increased mood stability. Client stated she has increased her ability to cope with irritability and mood regulation through the use of positive self-talk, reframing, and reminding herself to view things from the other person's perspective before reacting. Client states she has reduced symptoms of anxiety and depression as client has decreased negative thinking, has been able to successfully accomplish small daily goals, and has an overall improved outlook on life. Client shared she has been able to prevent verbal outbursts during times of increased irritability, is more easily focusing on the positives, regularly taking medications, and asking for help for more frequently. Client reported an increase in motivation to accomplish goals and work on improving self-esteem levels as well as an increase in positive emotions. Client reports utilizing healthy coping skills daily and reports increased communication with her support system. Strategies for Success:: 1. Set small goals and break things down so they aren't as overwhelming. 2. Get out and socialize! Do at least one enjoyable activity a day so that you are spending your time in ways that you are okay with. Remember these next 50 years are yours! 3. Remember to give yourself credit, even for small tasks! 4. Use positive thinking and self-talk! 5. TAKE YOUR MEDICATIONS, even when you don't want to or when it is hard. You can't continue to make progress if you aren't functioning at baseline. 6. Spend time with positive supports such as friends and family! 8. Set boundaries and voice your needs. 9. Ask for help, your supports can't help them if you don't ask! 10. Ask yourself how else you can look at a situation and remember to challenge those negative thoughts! - Appointments Appointments/Referrals to Other Services:: Client is to follow up with outpatient counseling with Dr. Moreno as well as continue to attend the DBSA support group through [facility]. Client is to follow up with her care team through the [facility] for ongoing medication management. Client is encouraged to begin couple's counseling through [facility] to continue to improve communication with her supports.
--- NOTE | 2018-01-17 10:52 | BH.IGGP_ITS ---
Aftercare Plan - Demographics Treatment End Date:: 01/17/18 Psychiatrist:: Susan Rizzo Psychiatrist Office #:: [phone] [facility] Therapist:: Mariel Ramos Therapist Phone #:: [phone] - Medications Home Medications: Home Medications Potassium Chloride [Klor-Con M20] 20 meq PO DAILY 09/25/15 Albuterol Inhaler [Ventolin Hfa] 2 puff INHALATION Q4H PRN PRN 02/16/16 Furosemide [Lasix] 80 mg PO DAILY 03/14/17 Insulin Lispro [Humalog] 10 units SC TIDCM 03/14/17 Lactulose [Chronulac] 20 gm PO TID 03/14/17 Magnesium Oxide [Magnesium] 400 mg PO BID 03/14/17 Omeprazole [Prilosec] 20 mg PO DAILY 03/14/17 Ondansetron [Zofran Odt] 4 mg PO BID PRN 03/14/17 Metoclopramide [Reglan] 10 mg PO BID PRN 04/28/17 Spironolactone [Aldactone] 200 mg PO DAILY 04/28/17 TraMADol [Ultram] 50 mg PO Q6H PRN PRN 04/28/17 Sennosides/Docusate Sodium [Senna Plus Tablet] 1 each PO DAILY PRN 04/29/17 Baclofen 10 mg PO QHS 11/04/17 Cholecalciferol (Vitamin D3) [Optimal D3] 50,000 unit PO QWEEK 11/04/17 Dicyclomine HCl [Bentyl] 10 mg PO TIDAC 11/04/17 Fluvoxamine Maleate [Luvox] 25 mg PO QHS 11/04/17 Rifaximin [Xifaxan] 550 mg PO BID 11/04/17 Ursodiol [Actigall] 300 mg PO BID 11/04/17 Insulin Glargine,Hum.rec.anlog [Lantus] 15 unit SQ QHS 11/26/17 - Plan Details Progress/Aftercare Plan Details:: Client has been an active participant and excellent group member throughout the duration of her time in the [facility] program. She has done well to maintain consistent and regular attendance and has demonstrated notable progress during her time in [facility]. Client's progress is noted by observable differences in her levels of motivation and energy as well as self-report of reduced anxiety and depression and increased mood stability. Client stated she has increased her ability to cope with irritability and mood regulation through the use of positive self-talk, reframing, and reminding herself to view things from the other person's perspective before reacting. Client states she has reduced symptoms of anxiety and depression as client has decreased negative thinking, has been able to successfully accomplish small daily goals, and has an overall improved outlook on life. Client shared she has been able to prevent verbal outbursts during times of increased irritability, is more easily focusing on the positives, regularly taking medications, and asking for help for more frequently. Client reported an increase in motivation to accomplish goals and work on improving self-esteem levels as well as an increase in positive emotions. Client reports utilizing healthy coping skills daily and reports increased communication with her support system. Strategies for Success:: 1. Set small goals and break things down so they aren' t as overwhelming. 2. Get out and socialize! Do at least one enjoyable activity a day so that you are spending your time in ways that you are okay with. Remember these next 50 years are yours! 3. Remember to give yourself credit, even for small tasks! 4. Use positive thinking and self-talk! 5. TAKE YOUR MEDICATIONS, even when you don't want to or when it is hard. You can't continue to make progress if you aren't functioning at baseline. 6. Spend time with positive supports such as friends and family! 8. Set boundaries and voice your needs. 9. Ask for help, your supports can't help them if you don't ask! 10. Ask yourself how else you can look at a situation and remember to challenge those negative thoughts! - Appointments Appointments/Referrals to Other Services:: Client is to follow up with outpatient counseling with Dr. Moreno as well as continue to attend the D[facility]A support group through [facility]. Client is to follow up with her care team through the [facility] for ongoing medication management. Client is encouraged to begin couple's counseling through [facility] to continue to improve communication with her supports.
--- NOTE | 2018-01-17 15:03 | BH.MDN ---
Multi-Disciplinary Note - Note 30-min Individual Time Started:: 11:15 Date: 01/17/18 Purpose of session/treatment goals addressed:: The purpose of this session was to review with Client identified strategies for success she may implement moving forward in order prevent decompensation and continue to regulate emotions. Another purpose was to reflect on client progress and skills learned, review plan for return to work, and establish aftercare. Eye Contact:: Good Motor Activity:: Appropriate Appearance:: Casual Speech:: Appropriate Mood:: Euthymic, Anxious Affect:: Congruent Thoughts:: Linear, Logical, No evidence of hallucinations/delusions noted Staff Interventions:: Therapist asked open-ended questions and used strengths based approaches to reflect upon progress made while in the IOP program as well as identify potential barriers to stability moving forward. Therapist worked with Client on identifying strategies for success that may be helpful in managing emotions and preventing decompensation post discharge. Therapist provided supportive feedback and encouragement, as well as advocated for client to follow up with local supportive resources. Client Response:: Client agreeable to session and remained actively engaged throughout. She discussed feeling relieved that she had been able to meet with staff from her son's school to develop strategies for best managing his ongoing behavioral issues. Client indicated that this had recently been a major source of anxiety but felt that the meeting helped to ease her anxieties. Client went on to discuss that outside of this stressor she feels she has continued to maintain progress and is able to see noticable differences in how she manages her emotions and communicates with supports. CLient described increased levels of self-confidence and motivation, as well as improved relationships with her children to which she attributes consistent mood stabilization. Client discussed reframing and challenging negative thoughts, maintaining healthy boundaries, and remaining consistent with medications as the garcia components in sustaining the gains she has made. Client reviewed areas for continued growth, indicating that she plans to continue to work on actively challenging cognitive distortions and setting realistic expectations for herself as she finds she continues to struggle with predicting the future and personalizing, specifically when communicating with supports. Client relayed fear of sliding back without the support of the group; however, did well to challenge and reframe these thoughts. She reports plans to revisit the idea of couple's counseling with her partner, as well as maintain weekly individual appointments and regular attendance at the DBSA support group. Risks/Concerns:: Client denies suicidal ideation, plan, and intent as of 01/16/18. Client shared plans to spend time with her son rasheeda and go out to dinner with her partner this weekend which demonstrates future orientation. Progress Toward Goals/Plan:: Client has made significant progress towards treatment goals and no longer meets IOP criteria. She expresses decreased symptoms or anxiety and depression as well as increased mood stability. CLient has done well to maintain consistent medication compliance while in the IOP program as well as attendance. She has been an active participant throughout and indicates increased ability to apply to apply healthy coping skills such as thought challenging or reframing. Client continues to struggle with reaching out to her supports and is encouraged to work on effective communication strategies. Client to follow-up with outpatient providers at the [facility] for ongoing medication management and is scheduled to meet with Dr. Moreno for outpatient individual therapy next week. Time Stopped:: 11:40
--- NOTE | 2018-01-17 15:05 | BH.DS ---
Discharge Summary - Demographics Date of Admission:: 12/02/17 Discharge Date: 01/17/18 Presenting Problems at Admission:: Patient is a 47 year old female who was referred to the IOP program by her liver transplant treatment team at [facility] for evaluation of mood symptoms and anxiety. She indicates a history of bipolar disorder, borderline personality disorder, and disassociative identity disorder. Client reports she has a long-standing history of intermittent medication noncompliance and self-injurious behaviors. Client reported engaging in vaginal cutting at time of intake. Discharge Diagnoses:: Bipolar disorder unspecified at 31.9. Borderline personality disorder. Anxiety. Dissociative disorder by history Reason for Discharge:: Client has made significant progress on his treatment goals and no longer meets the criteria for [facility] level of care. - Treatment Progress During Treatment & Response: Client has been an active participant and excellent group member throughout the duration of her time in the IOP program. She has done well to maintain consistent and regular attendance and has demonstrated notable progress during her time in [facility]. Client's progress is noted by observable differences in her levels of motivation and energy as well as self-report of reduced anxiety and depression and increased mood stability. Client stated she has increased her ability to cope with irritability and mood regulation through the use of positive self-talk, reframing, and reminding herself to view things from the other person's perspective before reacting. Client states she has reduced symptoms of anxiety and depression as client has decreased negative thinking, has been able to successfully accomplish small daily goals, and has an overall improved outlook on life. Client shared she has been able to prevent verbal outbursts during times of increased irritability, is more easily focusing on the positives, regularly taking medications, and asking for help for more frequently. Client reported an increase in motivation to accomplish goals and work on improving self-esteem levels as well as an increase in positive emotions. Client reports utilizing healthy coping skills daily and reports increased communication with her support system. Issues Still to be Addressed:: Client would continue to benefit from maintaining compliant with medications and working on accomplishing small daily goals. She reports ongoing relationship tension and would do well to continue to work on applying open communication with her supports and asserting firm boundaries. Client additionally recommended to work on maintaining mood stability, irritability, and challenging negative thoughts. Client can also benefit from continuing to utilize healthy coping skills and recognizing warning signs. Discharge Recommendations/Instructions:: Client is to follow up with outpatient counseling with Dr. Moreno as well as continue to attend the DBSA support group through [facility]. Client is to follow up with her care team through the [facility] for ongoing medication management. Client is encouraged to begin couple's counseling through [facility] to continue to improve communication with her supports. Client also encouraged to reach out to local Autism parenting support groups for additional assistance, resource information has been provided. Discharge Handout: Complete Discharge Handout with client on aftercare options and continuity of care.
--- NOTE | 2018-01-17 15:26 | BH.SGPN_ITS ---
Service Group Progress Note - Session Psychotherapy Session #2 Date Open:: 01/17/18 - 8 group members Time Started:: 10:13 Time Stopped:: 11:10 Targeted Problem #:: 1 Type of Group:: Illness Management Goal of Group:: To identify the importance of change, increase understanding of difficulty of making change, identify what clients would like to make changes in and identify the barriers or obstacles that get in the way of change. Client Response/Progress/Benefit:: Client responded well to session, active participant. Client appeared to connect with quote, sharing ?that?s why the [facility] than the [facility].. It?s okay to look back, but we don?t want to focus on it.? Client shared making change is challenging because of lack of motivation, fear, and avoidance. However, client shared if one does not make change then they stay stuck and stay miserable. Client identified goals for the week that would benefit her mental health such as looking up PhD programs, creating outline for her essay, and taking her middle of the day medications consistently. Client shared these goals would ?give me a sense of direction.? Client identified her barriers to be avoidance, fatigue, and procrastination. Client appeared to benefit from increasing awareness of the positives of change as well as her personal barriers. Client seems to be progressing as shown by her positive outlook and self-talk as well as her observably improved demeanor. Eye Contact:: Good Motor Activity:: Appropriate Appearance:: Neat Speech:: Appropriate Mood:: Euthymic Affect:: Full Thoughts:: Linear, No evidence of hallucinations/delusions noted Staff Interventions:: Therapist facilitated discussion about change and helped client?s make connections of why change is important. Therapist led group in an experiential activity which involved client?s identifying changes want to make and barriers that get in the way of making those changes. Therapist utilized activity as a tool to help client?s make connections of difficulties in making changes and identify what helps overcome barriers to change.
--- NOTE | 2018-01-17 15:40 | BH.DS_ITS ---
Discharge Summary - Demographics Date of Admission:: 12/02/17 Discharge Date: 01/17/18 Presenting Problems at Admission:: Patient is a 47 year old female who was referred to the IOP program by her liver transplant treatment team at [facility] for evaluation of mood symptoms and anxiety. She indicates a history of bipolar disorder, borderline personality disorder, and disassociative identity disorder. Client reports she has a long-standing history of intermittent medication noncompliance and self-injurious behaviors. Client reported engaging in vaginal cutting at time of intake. Discharge Diagnoses:: Bipolar disorder unspecified at 31.9. Borderline personality disorder. Anxiety. Dissociative disorder by history Reason for Discharge:: Client has made significant progress on his treatment goals and no longer meets the criteria for [facility] level of care. - Treatment Progress During Treatment & Response: Client has been an active participant and excellent group member throughout the duration of her time in the IOP program. She has done well to maintain consistent and regular attendance and has demonstrated notable progress during her time in [facility]. Client's progress is noted by observable differences in her levels of motivation and energy as well as self-report of reduced anxiety and depression and increased mood stability. Client stated she has increased her ability to cope with irritability and mood regulation through the use of positive self-talk, reframing, and reminding herself to view things from the other person's perspective before reacting. Client states she has reduced symptoms of anxiety and depression as client has decreased negative thinking, has been able to successfully accomplish small daily goals, and has an overall improved outlook on life. Client shared she has been able to prevent verbal outbursts during times of increased irritability, is more easily focusing on the positives, regularly taking medications, and asking for help for more frequently. Client reported an increase in motivation to accomplish goals and work on improving self-esteem levels as well as an increase in positive emotions. Client reports utilizing healthy coping skills daily and reports increased communication with her support system. Issues Still to be Addressed:: Client would continue to benefit from maintaining compliant with medications and working on accomplishing small daily goals. She reports ongoing relationship tension and would do well to continue to work on applying open communication with her supports and asserting firm boundaries. Client additionally recommended to work on maintaining mood stability, irritability, and challenging negative thoughts. Client can also benefit from continuing to utilize healthy coping skills and recognizing warning signs. Discharge Recommendations/Instructions:: Client is to follow up with outpatient counseling with Dr. Moreno as well as continue to attend the DBSA support group through [facility]. Client is to follow up with her care team through the [facility] for ongoing medication management. Client is encouraged to begin couple's counseling through [facility] to continue to improve communication with her supports. Client also encouraged to reach out to local Autism parenting support groups for additional assistance, resource information has been provided. Discharge Handout: Complete Discharge Handout with client on aftercare options and continuity of care.
--- NOTE | 2018-01-17 16:47 | BH.SGPN_ITS ---
Service Group Progress Note - Session Psychotherapy Session #1 Date Open:: 01/17/18 Time Started:: 09:05 Time Stopped:: 10:00 Type of Group:: Process - 4 group members Goal of Group:: The goal of group was to check-in with clients on current mood, stressors, and positives and from previous group session. Client Response/Progress/Benefit:: Pt was an active participant in group discussion. Emotion for today is empowered. Shared with the group that this is her last day in IOP program. She discussed her progress in the program stating that she is currently compliant with medications, completing tasks, not avoiding or isolating, and feels that her mood is stabilized. States best i' ve felt in a long time. She discussed some stressors but feels confident that she can manage these stressors. Group provided support and wished her well. Plan is for pt to discharge from [facility]. Eye Contact:: Good Motor Activity:: Appropriate Appearance:: Neat Speech:: Appropriate Mood:: Euthymic Affect:: Full Thoughts:: Linear, Logical, No evidence of hallucinations/delusions noted Staff Interventions:: Therapist used open-ended questions to elicit information about client's current stressors and mood state. Therapist was supportive by using active listening and reflection.
== END 2018-01-17 14:00 | disposition home or self-care (01) ==
LOC: BHIOP 09:00
PROVIDERS: Family Provider Internal Medicine; PCP Internal Medicine; Visit Provider Psychiatry & Neurology Psychiatry
DX: F31.9 Bipolar disorder, unspecified (principal); F60.3 Borderline personality disorder; F41.9 Anxiety disorder, unspecified; F44.9 Dissociative and conversion disorder, unspecified
CPT/HCPCS: H0035; H2012; 90832

== ENCOUNTER 2018-02-15 02:47 | Observation (INO) | payer MEDICAID, SELFPAY ==
[2018-02-15] VITALS (7 sets, daily range): BP systolic 108–148; BP diastolic 65–81; PULSE 74–79; RESP 16–18; TEMP 36.4–37.1; O2SAT 97–100; BMI 27.2; BMI 26.9
--- NOTE | 2018-02-15 02:58 | EKG12_ITS ---
Test Reason : CONFUSION Blood Pressure : / mmHG Vent. Rate : 079 BPM Atrial Rate : 079 BPM P-R Int : 156 ms QRS Dur : 102 ms QT Int : 418 ms P-R-T Axes : 037 -39 056 degrees QTc Int : 479 ms Normal sinus rhythm Left axis deviation Abnormal ECG Confirmed by DEDE ZAMBRANO, ROSA ([id number]), managing editor AUSTIN LOPEZ ([id number] on 02/17/2018 1:36:30 PM Referred By: LEFTY Confirmed By:ROSA AGUAYO MD
[2018-02-15 03:05] LABS: Absolute Lymphocyte Count 0.77 X10^3/ul (0.83-4.51); Absolute Neutrophil Count 2.5 X10^3/uL (2.0-7.7); Basophil% 2.5 % (0-1); Eosinophil# 0.11 X10^3/uL; Eosinophils% 2.8 % (0-5); Hematocrit 32.3 % (37-47); Hemoglobin 10.7 g/dl (12.0-15.0); Lymphocyte # 0.77 X10^3/ul (4.0); Lymphocyte % 19.3 % (19-41); Mean Corp Hgb Conc 33.1 g/gl (32-36); Mean Corpuscular Hgb 26.8 pg (27.0-32.0); Mean Corpuscular Volume 80.8 fL (81-99); Mean Platelet Vol. 10.5 fl (6.2-12.0); Monocyte# 0.53 X10^3/uL; Monocyte% 13.3 % (0-10); Neutrophil # 2.48 X10^3/uL (2.7-7.7); Neutrophil % 61.8 % (47-70); Platelet Count 117 K/mm3 (150-450); RBC Distribution Width CV 14.6 % (11.6-14.6); RBC Distribution Width SD 42.1 fl (35.1-43.9)
[2018-02-15 03:07] LABS: POSITIVE COUNT NO; POSITIVE DIFFERENTIAL NO; POSITIVE MORPHOLOGY NO
[2018-02-15] MEDS: Ondansetron 4 MG/2 ML Vial IV (03:07)
[2018-02-15] MEDS: 0.9% Normal Saline 1,000 ML 1000 ML IV (03:07)
[2018-02-15 03:10] LABS: Bacteria 0 SEEN /hpf (None Seen); Mucous, Urine 0 SEEN /hpf (<or=2+); Red Blood Cells-Urine 0 SEEN /hpf (0-5); White Blood Cells 0 SEEN /hpf (0-5)
[2018-02-15 03:22] LABS: Color, Urine Yellow (Yellow); Glucose, Dipstick 1000 mg/dl (Normal); Ketone-Dipstick Negative (Negative); Leukocyte Esterase-Dipstick Negative /ul (Negative); Nitrite-Dipstick Negative (Negative); Occult Blood-Urine Negative /ul (Negative); Protein-Dipstick Negative (Negative); Specific Gravity, Urine 1.015 (1.002-1.030); Urine Bilirubin Dipstick Negative (Negative); Urine Clarity Clear (Clear); Urine Urobilinogen Normal (Normal)
[2018-02-15 03:28] LABS: Squamous Epithelial Cells - UA 0-5 SEEN /hpf (5-10)
[2018-02-15 03:34] LABS: ALB/GLOB Ratio 0.6 RATIO (0.9-2.4); AST(SGOT) 46 U/L (15-37); Alanine Aminotransfer ALT/SGPT 47 U/L (13-56); Albumin, Serum 2.9 g/dL (3.2-5.0); Alkaline Phosphatase 226 U/L (45-117); Anion Gap 8 (5-15); BUN 12 mg/dL (7-18); BUN/Creat Ratio 15.1 RATIO (10-20); Calcium,Total 8.5 mg/dL (8.5-10.1); Chloride 101 mmol/L (98-107); Creatinine, Serum 0.79 mg/dL (0.55-1.02); EST Glomerular Filtration Rate 82 mL/min (>60); Est Glom Filt Rate - Afr Amer 99 mL/min (>60); Estimated Creatinine Clearance 90.02 ml/min; Glucose 317 mg/dL (74-106); Lipase 206 U/L (73-393); Potassium 3.4 mmol/L (3.5-5.1); Protein, Total 7.9 g/dL (6.4-8.2); Sodium Level 137 mmol/L (136-145)
--- NOTE | 2018-02-15 03:36 | ED.DCSUM_ITS ---
- ER Visit Summary Date of Service: 02/15/18 Chief Complaint: Confusion] History of Present Illness: The patient is a 47 F [presents to the emergency department with complaint of increased confusion over the last 2 weeks. Patient has a history of autoimmune hepatitis. Patient states that she had her ammonia level checked 3 days ago and it was 106. Patient has been taking her lactulose. Patient's had severe nausea and has vomited one time. Patient's had headaches. She denies any fever or cough. Patient denies feeling suicidal at this time. Patient states that during her times of confusion she would forget her son's name and had some fleeting thoughts of wanting to harm herself but currently is not suicidal. Patient denies recent illness otherwise.] Physical Examination: [HEENT-PERRLA, EOMI. Cranial nerves II through XII grossly intact. TMs clear. Mucous membranes moist. No adenopathy. Cardiovascular-regular rate and rhythm without murmur or ectopy Lungs-clear to auscultation, chest wall stable without crepitus or subcu emphysema Abdomen-normoactive bowel sounds, soft, nontender, no rebound or rigidity, no peritoneal signs. Extremities-intact ?4, normal range of motion, normal pulses, atraumatic] Test Results: [CBC with differential showed a white count of 4.0, hemoglobin 10.7, hematocrit 32, platelets 117. Urinalysis was normal. EKG showed a sinus rhythm with a ventricular rate of 79 bpm. Ammonia level was 111. Chemistries and LFTs are pending.] Emergency Department Course and Treatment: [Patient was started on lactulose 30 g p.o.] Treatment Plan: Patient will be admitted] Disposition: [Admit] Impression: [Hepatic encephalopathy] This note was generated with [employer]im[employer] dictation software. It may contain incorrect words, spelling, and punctuation that were not noted in review of the chart prior to signing ED Disposition - Plan for ED Patient: Chief Complaint: Confusion Referrals: Janay Canchola MD [Primary Care Provider] -
[2018-02-15] MEDS: Lactulose 20 GM/30 ML UDC 30 GM PO (03:52)
--- NOTE | 2018-02-15 04:16 | PCM.HP.STD ---
Problem List (1) Hepatic encephalopathy Status: Acute (2) Splenomegaly Status: Acute (3) Autoimmune hepatitis Status: Chronic (4) Bipolar disorder Status: Chronic Qualifiers: (5) Diabetes mellitus Status: Chronic Qualifiers: (6) Chey thyroiditis Status: Chronic (7) Liver cirrhosis Status: Chronic (8) Schizoaffective disorder Status: Chronic Qualifiers: History of Present Illness Date of Admission: 02/15/18 Chief Complaint: Hepatic encephalopathy The patient is a 47 year old female w/ h/o bipolar disorder, schizoaffective disorder, autoimmune hepatitis, diabetes mellitus type II, chey thyroiditis, and liver cirrhosis admitted for persistent n/v this AM. She has not been taking her lactulose and her ammonia level was 106 several weeks ago. She only recently in the past few days to take lactulose. Nothing made her n/v better or worse. She is not able to tolerate PO intake. Her n/v is severe and affected her ADLs. Her normal BM is 2-3 BMs daily. She came to the ED for further workup. Past Medical History Past Medical History (Chronic Problems): Chronic Problems Diabetes mellitus (Chronic) Liver cirrhosis (Chronic) Chey thyroiditis (Chronic) Autoimmune hepatitis (Chronic) Schizoaffective disorder (Chronic) Bipolar disorder (Chronic) Allergies adhesive Allergy (Verified 02/15/18 02:51) Rash escitalopram oxalate [From Lexapro] Allergy (Verified 02/15/18 02:51) blindness gabapentin [From Neurontin] Allergy (Verified 02/15/18 02:51) Alan Jez's Syndrome lamotrigine [From Lamictal] Allergy (Verified 02/15/18 02:51) Blindness Preservatives Allergy (Uncoded 02/15/18 02:51) passed out, lungs deflated Preservatives in various foods including packaged gladys cheese, lettuce, and seafood. Home Medications: Ambulatory Orders Medication Instructions Recorded Potassium Chloride [Klor-Con M20] 20 meq PO DAILY 09/25/15 Albuterol Inhaler [Ventolin Hfa] 2 puff INHALATION Q4H PRN PRN 02/16/16 Furosemide [Lasix] 80 mg PO DAILY 03/14/17 Insulin Lispro [Humalog] 10 units SC ACHS 03/14/17 Lactulose [Chronulac] 20 gm PO TID 03/14/17 Magnesium Oxide [Magnesium] 400 mg PO BID 03/14/17 Omeprazole [Prilosec] 20 mg PO DAILY 03/14/17 Ondansetron [Zofran Odt] 4 mg PO BID PRN 03/14/17 Metoclopramide [Reglan] 10 mg PO BID PRN 04/28/17 Spironolactone [Aldactone] 200 mg PO DAILY 04/28/17 traMADol [Ultram] 50 mg PO Q6H PRN PRN 04/28/17 Sennosides/Docusate Sodium [Senna 1 each PO DAILY PRN 04/29/17 Plus Tablet] Baclofen 10 mg PO QHS 11/04/17 Dicyclomine HCl [Bentyl] 10 mg PO TIDAC 11/04/17 Fluvoxamine Maleate [Luvox] 25 mg PO QHS 11/04/17 Rifaximin [Xifaxan] 550 mg PO BID 11/04/17 Ursodiol [Actigall] 300 mg PO BID 11/04/17 Insulin Glargine,Hum.rec.anlog 28 unit SQ QHS 11/26/17 [Lantus] Surgical History: - - Appendectomy, cholecystectomy, partial hysterectomy. 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, Bipolar, Depression FLEET MANAGER/DISPATCH History: No pertinent FLEET MANAGER/DISPATCH history Smoking Status: Never smoker - *Family History Paternal History Items: - - father with heart attacks and strokes Maternal History Items: No pertinent history Review of Systems Constitutional: Denies: Chills, Fever, Weight Change HEENT: Denies: Head Aches, Sinus Congestion, Sinus Drainage Cardiovascular: Denies: Chest Pain, Palpitations Respiratory: Denies: Cough, Shortness of breath at rest, Sputum production Gastrointestinal: Reports: Nausea, Vomiting. Denies: Abdominal Pain Genitourinary: Denies: Dysuria Musculoskeletal: Denies: Joint Pain, Joint Tenderness Skin: Denies: Rash, Wounds Neurological: Denies: Numbness, Tingling, Focal weakness Psychiatric: Denies: Anxiety, Depression, Homicidal Ideations, Suicidal Ideations Hematologic/ Lymphatic: Denies: Easy Bruising, Easy Bleeding VTE Information - Inpt Only VTE Present on Admission: No VTE Mechan Device Prophylaxis: SCD's VTE Pharm Prophylaxis ordered?: Yes Patient Problems: Active and Suspected Problems Hepatic encephalopathy (Acute) - Physical Exam General: Alert, Oriented x3, Cooperative HEENT: Atraumatic, PERRLA, EOMI, Normocephalic Neck: Supple, No JVD, Negative Carotid Bruits Lungs: Clear to auscultation, Normal air movement Cardiovascular: Regular rate, No murmurs Abdomen: Bowel Sounds Present, Soft, Non Tender Extremities: No edema, Capillary Refill Less than 3 Seconds Skin: No rashes, No breakdown Musculoskeletal: No Tenderness to Palpation of Joints or Extremities Neurological: Cranial nerves II-XII grossly intact Psych/Mental Status: Normal Affect, Appropriate Vital Signs Temp Pulse Resp BP Pulse Ox 97.5 F L 74 16 146/73 H 100 02/15/18 03:42 02/15/18 03:42 02/15/18 03:42 02/15/18 03:42 02/15/18 03:42 Oxygen Delivery Method Room Air Weight: 83.6 kg Body Mass Index (BMI) 27.2 Finger Stick Blood Glucose 70 Laboratory Tests Past 24 Hrs 02/15/18 02/15/18 02/15/18 02:55 02:55 02:55 WBC 4.0 L RBC 4.00 L Hgb 10.7 L Hct 32.3 L MCV 80.8 L MCH 26.8 L MCHC 33.1 RDW 14.6 RDW Differential 42.1 Plt Count 117 L MPV 10.5 Immature Gran % (Auto) 0.300 Neut % (Auto) 61.8 Lymph % (Auto) 19.3 [place] % (Auto) 13.3 H Eos % (Auto) 2.8 Baso % (Auto) 2.5 H Absolute Neuts (auto) 2.5 Absolute Lymphs (auto) 0.77 L Total Counted Not Reportable Sodium 137 Potassium 3.4 L Chloride 101 Carbon Dioxide 28.0 Anion Gap 8 BUN 12 Creatinine 0.79 Estim Creat Clear Calc 90.02 Est GFR (MDRD) Af Amer 99 Est GFR (MDRD) Non-Af 82 BUN/Creatinine Ratio 15.1 Glucose 317 H Calcium 8.5 Total Bilirubin 1.00 AST 46 H ALT 47 Alkaline Phosphatase 226 H Ammonia 111.0 H Troponin I < 0.02 Total Protein 7.9 Albumin 2.9 L Globulin 5.0 H Albumin/Globulin Ratio 0.6 L Lipase 206 Urine Color Urine Clarity Urine pH Ur Specific [place] Urine Protein Urine Glucose (UA) Urine Ketones Urine Occult Blood Urine Nitrite Urine Bilirubin Urine Urobilinogen Ur Leukocyte Esterase Urine RBC Urine WBC Ur Squamous Epith Cells Urine Bacteria Urine Mucus 02/15/18 03:05 WBC RBC Hgb Hct MCV MCH MCHC RDW RDW Differential Plt Count MPV Immature Gran % (Auto) Neut % (Auto) Lymph % (Auto) [place] % (Auto) Eos % (Auto) Baso % (Auto) Absolute Neuts (auto) Absolute Lymphs (auto) Total Counted Sodium Potassium Chloride Carbon Dioxide Anion Gap BUN Creatinine Estim Creat Clear Calc Est GFR (MDRD) Af Amer Est GFR (MDRD) Non-Af BUN/Creatinine Ratio Glucose Calcium Total Bilirubin AST ALT Alkaline Phosphatase Ammonia Troponin I Total Protein Albumin Globulin Albumin/Globulin Ratio Lipase Urine Color Yellow Urine Clarity Clear Urine pH 6.0 Ur Specific [place] 1.015 Urine Protein Negative Urine Glucose (UA) 1000 H Urine Ketones Negative Urine Occult Blood Negative Urine Nitrite Negative Urine Bilirubin Negative Urine Urobilinogen Normal Ur Leukocyte Esterase Negative Urine RBC 0 SEEN Urine WBC 0 SEEN Ur Squamous Epith Cells 0-5 SEEN Urine Bacteria 0 SEEN Urine Mucus 0 SEEN Assessment/Plan Active and Suspected Problems Hepatic encephalopathy (Acute) 47 year old female w/ h/o bipolar disorder, schizoaffective disorder, autoimmune hepatitis, diabetes mellitus type II, chey thyroiditis, and liver cirrhosis admitted for persistent n/v this AM. 1) Hepatic encephalopathy: Ammonia 111. Pt has not been taking her lactulose. Resume lactulose and rifaximin. Will repeat ammonia level in AM. 2) Cirrhosis secondary to autoimmune hepatitis: Resume home meds. Will replace potassium. Resume diuretics. 3) DMII: Resume home meds. Monitor. 4) Prophylaxis: SCD / heparin.
[2018-02-15] MEDS: traMADol 50 MG Tablet PO (05:45)
[2018-02-15] MEDS: Metoclopramide 10 MG Tablet PO (05:46)
[2018-02-15] MEDS: Dicyclomine 10 MG Capsule PO ×2 (06:44→11:08)
[2018-02-15 06:53] LABS: Absolute Lymphocyte Count 0.77 X10^3/ul (0.83-4.51); Basophil# 0.07 X10^3/uL; Basophil% 2.1 % (0-1); Eosinophil# 0.12 X10^3/uL; Eosinophils% 3.6 % (0-5); Hematocrit 29.4 % (37-47); Hemoglobin 9.4 g/dl (12.0-15.0); Lymphocyte # 0.77 X10^3/ul (4.0); Mean Corpuscular Hgb 26.2 pg (27.0-32.0); Mean Corpuscular Volume 81.9 fL (81-99); Mean Platelet Vol. 10.6 fl (6.2-12.0); Monocyte% 11.9 % (0-10); Neutrophil # 1.98 X10^3/uL (2.7-7.7); Neutrophil % 59.1 % (47-70); Platelet Count 95 K/mm3 (150-450); RBC Distribution Width CV 14.7 % (11.6-14.6); RBC Distribution Width SD 42.3 fl (35.1-43.9); Red Blood Count 3.59 M/mm3 (4.2-5.4); White Blood Count 3.4 K/mm3 (4.4-11.0)
[2018-02-15 06:54] LABS: POSITIVE COUNT NO; POSITIVE DIFFERENTIAL NO; POSITIVE MORPHOLOGY NO
[2018-02-15 07:05] LABS: Anion Gap 9 (5-15); BUN 12 mg/dL (7-18); BUN/Creat Ratio 17.4 RATIO (10-20); Calcium,Total 8.1 mg/dL (8.5-10.1); Chloride 105 mmol/L (98-107); Creatinine, Serum 0.69 mg/dL (0.55-1.02); EST Glomerular Filtration Rate 96 mL/min (>60); Est Glom Filt Rate - Afr Amer 116 mL/min (>60); Estimated Creatinine Clearance 103.07 ml/min; Glucose 252 mg/dL (74-106); Potassium 3.3 mmol/L (3.5-5.1); Sodium Level 138 mmol/L (136-145)
[2018-02-15 07:05] LABS: Bedside Glucose 254 mg/dL (70-110)
[2018-02-15] MEDS: Pantoprazole Sodium 20 MG Tablet PO (08:19)
[2018-02-15] MEDS: Magnesium Oxide 400 MG Tablet PO (08:20)
[2018-02-15] MEDS: Furosemide 80 MG Tablet PO (08:20)
[2018-02-15] MEDS: rifAXIMin 550 MG Tablet PO (08:21)
[2018-02-15] MEDS: Spironolactone 50 MG Tablet 200 MG PO (08:37)
[2018-02-15] MEDS: Ondansetron ODT 4 MG Tablet PO (11:12)
[2018-02-15 11:45] LABS: Bedside Glucose 356 mg/dL (70-110)
--- NOTE | 2018-02-15 12:40 | DCINST_ITS ---
- Discharge Diagnoses Current Active Problems: Current Active and Chronic Problems Hepatic encephalopathy (Acute) You will use the following diet at home:: Calorie/Carbohydrate Controlled ( specify 1200, 1400, etc) - 1800 mj Your food should be the consistency of: Regular Your liquids should be the consistency of: Regular/Thin Discharge Activity: Return to Normal Activity Weight Bearing Status: Full weight bearing Additional Instructions: take Bentyl only if needed because it slows down bowel movements Allergies/Adverse Reactions: Allergies adhesive Allergy (Verified 02/15/18 02:51) Rash escitalopram oxalate [From Lexapro] Allergy (Verified 02/15/18 02:51) blindness gabapentin [From Neurontin] Allergy (Verified 02/15/18 02:51) Alan Jez's Syndrome lamotrigine [From Lamictal] Allergy (Verified 02/15/18 02:51) Blindness Preservatives Allergy (Uncoded 02/15/18 02:51) passed out, lungs deflated Preservatives in various foods including packaged gladys cheese, lettuce, and seafood. sour cream Allergy (Uncoded 02/15/18 05:40) Anaphylaxis Medications to take at Discharge Potassium Chloride [Klor-Con M20] 20 meq PO DAILY 09/25/15 Albuterol Inhaler [Ventolin Hfa] 2 puff INHALATION Q4H PRN PRN 02/16/16 Furosemide [Lasix] 80 mg PO DAILY 03/14/17 Insulin Lispro [Humalog] 10 units SC ACHS 03/14/17 Magnesium Oxide [Magnesium] 400 mg PO BID 03/14/17 Omeprazole [Prilosec] 20 mg PO DAILY 03/14/17 Ondansetron [Zofran Odt] 4 mg PO BID PRN 03/14/17 Metoclopramide [Reglan] 10 mg PO BID PRN 04/28/17 Spironolactone [Aldactone] 200 mg PO DAILY 04/28/17 traMADol [Ultram] 50 mg PO Q6H PRN PRN 04/28/17 Sennosides/Docusate Sodium [Senna Plus Tablet] 1 each PO DAILY PRN 04/29/17 Baclofen 10 mg PO QHS 11/04/17 Fluvoxamine Maleate [Luvox] 25 mg PO QHS 11/04/17 Rifaximin [Xifaxan] 550 mg PO BID 11/04/17 Ursodiol [Actigall] 300 mg PO BID 11/04/17 Insulin Glargine,Hum.rec.anlog [Lantus] 28 unit SQ BID 11/26/17 Dicyclomine HCl [Bentyl] 10 mg PO TID PRN PRN #1 capsule 02/15/18 Lactulose [Chronulac] 30 gm PO BID #1 udc 02/15/18 The following prescriptions were given: Dicyclomine HCl [Bentyl] 10 mg PO TID PRN PRN #1 capsule PRN Reason: Cramp Lactulose [Chronulac] 30 gm PO BID #1 udc Primary Care Physician: Janay Canchola MD [Primary Care Provider] - Please follow up with your Primary Care Physician in: in 2-3 weeks
[2018-02-15] MEDS: Lactulose 20 GM/30 ML UDC PO (13:01)
--- NOTE | 2018-02-15 13:16 | CASEMGMT ---
See attached home assessment nurse. Patient's PCP is Dr. Canchola, Had a liver doctor is Dr. Narayan Boyd MD ([facility]), and Chucky for . Denies any discharge needs at this time. Simona Malin RN, [facility].
--- NOTE | 2018-02-15 14:06 | DS.PCM_ITS ---
Discharge Date and Diagnosis Date of Admission: 02/15/18 Date of Discharge: 02/15/18 - Primary Discharge Diagnosis #1 hepatic encephalopathy #2 autoimmune liver disease with cirrhosis #3 type 2 diabetes - Secondary Discharge Diagnosis Chronic Problems Diabetes mellitus (Chronic) Liver cirrhosis (Chronic) Reilly thyroiditis (Chronic) Autoimmune hepatitis (Chronic) Schizoaffective disorder (Chronic) Bipolar disorder (Chronic) Hospital Course and Treatment Operations: None Procedures: None Summary of Care Provided: The patient is a 47 year old F seen in the emergency room at [facility] with complaints of increased confusion over the last 2 weeks. Patient has a history of autoimmune liver disease and stated that she had her ammonia level checked 3 days previous and it was 106. Patient has been taking her lactulose. Workup in the emergency room included labs which showed a white blood cell count 4, hemoglobin was 10.7, urinalysis was unremarkable, ammonia level was 111. Patient was admitted to medical surgical 3 4 hepatic encephalopathy, lactulose was given, several hours afterwards her ammonia level was rechecked and was 40. Patient was seen and examined at that time and found to be alert and appropriate. Patient was observed several more hours that day and she remained appropriate and alert and appeared to be back to her baseline. Patient had not been taking her lactulose as prescribed at home, this was adjusted on her discharge on 02/15/18, on that date, patient was seen and examined and felt to be in stable condition for discharge home Discharge Activity: Return to Normal Activity Weight Bearing Status: Full weight bearing Home Medications: Medications to take at Discharge Potassium Chloride [Klor-Con M20] 20 meq PO DAILY 09/25/15 Albuterol Inhaler [Ventolin Hfa] 2 puff INHALATION Q4H PRN PRN 02/16/16 Furosemide [Lasix] 80 mg PO DAILY 03/14/17 Insulin Lispro [Humalog] 10 units SC ACHS 03/14/17 Magnesium Oxide [Magnesium] 400 mg PO BID 03/14/17 Omeprazole [Prilosec] 20 mg PO DAILY 03/14/17 Ondansetron [Zofran Odt] 4 mg PO BID PRN 03/14/17 Metoclopramide [Reglan] 10 mg PO BID PRN 04/28/17 Spironolactone [Aldactone] 200 mg PO DAILY 04/28/17 traMADol [Ultram] 50 mg PO Q6H PRN PRN 04/28/17 Sennosides/Docusate Sodium [Senna Plus Tablet] 1 each PO DAILY PRN 04/29/17 Baclofen 10 mg PO QHS 11/04/17 Fluvoxamine Maleate [Luvox] 25 mg PO QHS 11/04/17 Rifaximin [Xifaxan] 550 mg PO BID 11/04/17 Ursodiol [Actigall] 300 mg PO BID 11/04/17 Insulin Glargine,Hum.rec.anlog [Lantus] 28 unit SQ BID 11/26/17 Dicyclomine HCl [Bentyl] 10 mg PO TID PRN PRN #1 capsule 02/15/18 Lactulose [Chronulac] 30 gm PO BID #1 udc 02/15/18 Following Prescrptions Were Given to Patient: Dicyclomine HCl [Bentyl] 10 mg PO TID PRN PRN #1 capsule PRN Reason: Cramp Lactulose [Chronulac] 30 gm PO BID #1 udc Primary Care Physician: Janay Canchola MD [Primary Care Provider] - Please follow up with your Primary Care Physician in: in 2-3 weeks Disposition: Home Minutes spent on discharge:: 25 Patient Condition:: Stable Medical Necessity - Tobacco Use Smoking Status: Never smoker Meaningful Use Info Meaningful Use Diagnoses (Choose all that apply): None applicable Code Visit OBSV E&M: 74353 Observ/hosp same date L3
== END 2018-02-15 13:18 | disposition home or self-care (01) ==
LOC: ED 03:40 → MS3 04:51
PROVIDERS: Admitting Provider Internal Medicine; Emergency Provider Emergency Medicine; Family Provider Internal Medicine; PCP Internal Medicine; Visit Provider Internal Medicine
DX: K72.90 Hepatic failure, unspecified without coma (principal); K75.4 Autoimmune hepatitis; E11.9 Type 2 diabetes mellitus without complications; Z79.4 Long term (current) use of insulin; F31.9 Bipolar disorder, unspecified; Z79.899 Other long term (current) drug therapy; E06.3 Autoimmune thyroiditis; F25.9 Schizoaffective disorder, unspecified; K74.60 Unspecified cirrhosis of liver
CPT/HCPCS: 36415; 80048; 80053; 81001; 82140; 82962; 83690; 84484; 85025; 87040; 93005; 96361; 96374; 97161; 97165; 97802; 99218; 99283; J7030; A4216; G0378; J2405

== ENCOUNTER 2018-03-06 20:12 | Emergency (ER) | payer MEDICAID, SELFPAY ==
[2018-03-06 20:13] VITALS: BP 161/88; PULSE 89; RESP 17; TEMP 36.5; O2SAT 100; BMI 28.0
--- NOTE | 2018-03-06 20:29 | NURSING ---
CLINICAL LAB ASSISTANT CALLED FOR EKG, PULLED OLD EKG'S FOR
--- NOTE | 2018-03-06 21:44 | EKG12_ITS ---
Test Reason : Blood Pressure : / mmHG Vent. Rate : 083 BPM Atrial Rate : 083 BPM P-R Int : 156 ms QRS Dur : 100 ms QT Int : 418 ms P-R-T Axes : 032 -30 050 degrees QTc Int : 491 ms Normal sinus rhythm Left axis deviation Left ventricular hypertrophy Prolonged QT Poor R wave progression Abnormal ECG Confirmed by PAM ZAMBRANO, RANCHO ([id number]), marketing editor AUSTIN LOPEZ ([id number] on 03/10/2018 2:54:06 PM Referred By: COSME Confirmed By:RANCHO OROZCO MD
--- NOTE | 2018-03-06 21:50 | RAD_ITS ---
STUDY: X-RAY CHEST REASON FOR EXAM: Female, 47 years old. Shortness of breath and cough for 2 weeks TECHNIQUE: Single frontal view of the chest. COMPARISON: 11/04/2017 FINDINGS: The lungs are clear and expanded. There is no demonstrated pleural abnormality. Normal size heart. Normal mediastinum and sonny. Normal visualized pulmonary arteries. Normal visualized aortic arch and descending thoracic aorta. Normal visualized thoracic spine. Normal visualized ribs, clavicles, and shoulders. A TIPS is present. RAD/Chest 1 View (Portable) IMPRESSION: No acute pulmonary findings. Electronically Signed: Raciel Temple MD at 22:14 EDT Tel , Service support ,
[2018-03-06 21:51] VITALS: BP 158/88; PULSE 81; RESP 19; O2SAT 99
--- NOTE | 2018-03-06 21:54 | ED.VISSUMM ---
- ER Visit Summary Date of Service: 03/06/18 Chief Complaint: [] Rhinorrhea postnasal drainage harsh cough odor in home odor History of Present Illness: The patient is a 47 F [] for 2 weeks she has had a runny nose postnasal drainage and a harsh cough in addition there is someone now living in the basement as attendance paying rent and some activity is causing some type of malodorous smell to be in the house ago aggravating the patient's condition, she is concerned individual is doing something illegal such as cooking meth she took pictures of all the above basement and showed them to the police, she indicates she has liver failure autoimmune she has a liver stent her liver status has been very stable she has had no jaundice no abdominal pain she is eating drinking well bowel and bladder have been normal she has had no fever the cough is occasionally productive of thick yellow mucus all the time she was to cough is dry she has no history of lung disease or heart disease Physical Examination: [] Her vital signs are within normal range she is in no distress her nose is clear her throat is unremarkable her neck is supple her lungs are clear heart tones are normal abdomen soft nontender upper lower extremities unremarkable clinically she looks well she indicates she is resting in bed she feels fine, she is not prone to sinusitis or pneumonia she assures me her liver status is stable Test Results: [] Emergency Department Course and Treatment: [] The patient's labs chest x-ray and other studies are generally unremarkable see those reports please on reevaluation she is doing well, I explained her the exact etiology of this tickling sensation in her throat that is causing her to cough is unclear there is no signs of pneumonia or sinusitis at this time she will discharged her Proventil inhaler Flonase and she will follow with her doctors in the next few days return for change in symptoms further we did do some screening tests for her liver and her liver functions are all normal and she is comfortable comforted knowing that, with regards to this individual it is in her basement making odors I have explained her she should look into that and try to alleviate herself of those orders Treatment Plan: [] Disposition: [] Home stable Impression: [] Cough etiology unclear URI likely This note was generated with [employer] software. It may contain incorrect words, spelling, and punctuation that were not noted in review of the chart prior to signing ED Disposition - Plan for ED Patient: Chief Complaint: Shortness of Breath Referrals: Janay Canchola MD [Primary Care Provider] -
[2018-03-06 22:04] VITALS: PULSE 75; RESP 16
[2018-03-06] MEDS: Ipratropium/Albuterol Sulfate 3 ML AMPUL.NEB INHALATION (22:05)
[2018-03-06 22:15] VITALS: O2SAT 97
[2018-03-06] MEDS: Ondansetron ODT 4 MG Tablet PO (22:43)
[2018-03-06 22:46] LABS: AST(SGOT) 50 U/L (15-37); Alanine Aminotransfer ALT/SGPT 44 U/L (13-56); Albumin, Serum 3.2 g/dL (3.2-5.0); Alkaline Phosphatase 276 U/L (45-117); Anion Gap 7 (5-15); BUN 9 mg/dL (7-18); BUN/Creat Ratio 9.6 RATIO (10-20); Bilirubin, Direct 0.42 mg/dL (0.00-0.30); Calcium,Total 8.2 mg/dL (8.5-10.1); Chloride 104 mmol/L (98-107); Creatinine, Serum 0.94 mg/dL (0.55-1.02); EST Glomerular Filtration Rate 68 mL/min (>60); Est Glom Filt Rate - Afr Amer 82 mL/min (>60); Estimated Creatinine Clearance 75.66 ml/min; Globulin 4.8 g/dL (2.2-4.2); Glucose 402 mg/dL (74-106); Lipase 229 U/L (73-393); Potassium 3.7 mmol/L (3.5-5.1); Sodium Level 135 mmol/L (136-145)
[2018-03-06 22:51] LABS: Absolute Lymphocyte Count 0.55 X10^3/ul (0.83-4.51); Basophil% 3.3 % (0-1); Differential Indicated SCAN CRITERIA MET; Eosinophil# 0.16 X10^3/uL; Eosinophils% 5.2 % (0-5); Hematocrit 30.9 % (37-47); Hemoglobin 10.1 g/dl (12.0-15.0); Lymphocyte # 0.55 X10^3/ul (4.0); Lymphocyte % 17.9 % (19-41); Mean Corp Hgb Conc 32.7 g/gl (32-36); Mean Corpuscular Hgb 27.3 pg (27.0-32.0); Mean Corpuscular Volume 83.5 fL (81-99); Mean Platelet Vol. 11.4 fl (6.2-12.0); Monocyte# 0.31 X10^3/uL; Monocyte% 10.1 % (0-10); Neutrophil # 1.95 X10^3/uL (2.7-7.7); Neutrophil % 63.5 % (47-70); POSITIVE COUNT NO; POSITIVE DIFFERENTIAL YES; POSITIVE MORPHOLOGY NO; Platelet Count 110 K/mm3 (150-450); RBC Distribution Width CV 14.7 % (11.6-14.6); RBC Distribution Width SD 43.3 fl (35.1-43.9); White Blood Count 3.1 K/mm3 (4.4-11.0)
[2018-03-06 23:00] VITALS: BP 133/80; PULSE 80; RESP 17; O2SAT 99
--- NOTE | 2018-03-06 23:18 | ED.DEP ---
ED Disposition - Plan for ED Patient: Chief Complaint: Shortness of Breath Instructions: ED Upper Resp Infec No Abx Tx Prescriptions: Albuterol Inhaler [Ventolin Hfa] 2 puff INHALATION Q4H PRN #1 inhaler Fluticasone Propionate [Flonase Allergy Relief] 15.8 ml NS BID #1 spray.susp Referrals: Janay Canchola MD [Primary Care Provider] -
[2018-03-06 23:41] VITALS: BP 133/80; PULSE 81; RESP 18; O2SAT 100
[2018-03-10 09:58] LABS: Pathologist Review Reviewed
== END 2018-03-06 23:42 | disposition home or self-care (01) ==
LOC: ED 21:59
PROVIDERS: Emergency Provider Emergency Medicine; Family Provider Internal Medicine; PCP Internal Medicine
DX: J06.9 Acute upper respiratory infection, unspecified (principal); K74.60 Unspecified cirrhosis of liver; Z79.899 Other long term (current) drug therapy
CPT/HCPCS: 71045; 80048; 80076; 83690; 83880; 84484; 85025; 87804; 93005; 94640; 99283; A4216

== ENCOUNTER 2018-04-24 14:57 | Emergency (ER) | payer MEDICAID, SELFPAY ==
--- NOTE | 2018-04-24 14:57 | DT_ITS ---
This patient was seen during an EMR downtime April 21, 2018 - April 28, 2018. This patient may have a combination of paper and electronic documentation or all paper documentation. All documentation is viewable within the e-chart portion of [facility] for each patient visit.
[2018-04-26 14:21] LABS: BUN 10 mg/dL (7-18); Glucose 241 mg/dL (74-106)
[2018-04-26 14:22] LABS: ALB/GLOB Ratio 0.6 RATIO (0.9-2.4); AST(SGOT) 64 U/L (15-37); Alanine Aminotransfer ALT/SGPT 66 U/L (13-56); Albumin, Serum 3.7 g/dL (3.2-5.0); Alkaline Phosphatase 271 U/L (45-117); Anion Gap 9 (5-15); BUN/Creat Ratio 11.1 RATIO (10-20); Calcium,Total 9.4 mg/dL (8.5-10.1); Chloride 99 mmol/L (98-107); EST Glomerular Filtration Rate 71 mL/min (>60); Est Glom Filt Rate - Afr Amer 86 mL/min (>60); Globulin 5.7 g/dL (2.2-4.2); Lipase 149 U/L (73-393); Potassium 3.7 mmol/L (3.5-5.1); Protein, Total 9.4 g/dL (6.4-8.2); Sodium Level 139 mmol/L (136-145)
[2018-04-27 13:29] LABS: Hematocrit 38.3 % (37-47); Hemoglobin 12.2 g/dl (12.0-15.0); Mean Corp Hgb Conc 31.9 g/gl (32-36); Mean Corpuscular Hgb 25.4 pg (27.0-32.0); Mean Corpuscular Volume 79.8 fL (81-99); RBC Distribution Width CV 14.8 % (11.6-14.6); White Blood Count 4.3 K/mm3 (4.4-11.0)
[2018-04-27 13:30] LABS: Absolute Lymphocyte Count 0.61 X10^3/ul (0.83-4.51); Absolute Neutrophil Count 3.1 X10^3/uL (2.0-7.7); Basophil# 0.07 X10^3/uL; Basophil% 1.6 % (0-1); Eosinophil# 0.15 X10^3/uL; Eosinophils% 3.5 % (0-5); Lymphocyte # 0.61 X10^3/ul (4.0); Lymphocyte % 14.2 % (19-41); Mean Platelet Vol. 10.1 fl (6.2-12.0); Monocyte# 0.33 X10^3/uL; Monocyte% 7.7 % (0-10); Neutrophil # 3.13 X10^3/uL (2.7-7.7); POSITIVE COUNT NO; POSITIVE DIFFERENTIAL NO; POSITIVE MORPHOLOGY NO; Platelet Count 171 K/mm3 (150-450); RBC Distribution Width SD 43.2 fl (35.1-43.9)
== END 2018-04-24 16:06 | disposition home or self-care (01) ==
LOC: ED 04-25 09:35
PROVIDERS: Emergency Provider Emergency Medicine; Family Provider Internal Medicine; PCP Internal Medicine
DX: R25.2 Cramp and spasm (principal); E11.9 Type 2 diabetes mellitus without complications; K75.4 Autoimmune hepatitis; K74.60 Unspecified cirrhosis of liver; Z79.4 Long term (current) use of insulin; Z79.899 Other long term (current) drug therapy
CPT/HCPCS: 80053; 82009; 83690; 85025; 96361; 96374; 99283; J7030; A4216; J2405

== ENCOUNTER 2018-08-19 05:27 | Observation (INO) | payer MEDICAID, SELFPAY ==
[2018-08-19 05:28] VITALS: BP 147/78; PULSE 82; RESP 18; TEMP 36.7; O2SAT 97; BMI 31.4
--- NOTE | 2018-08-19 05:43 | EKG12_ITS ---
Test Reason : HYPERGLYCEMIA Blood Pressure : / mmHG Vent. Rate : 079 BPM Atrial Rate : 079 BPM P-R Int : 176 ms QRS Dur : 116 ms QT Int : 440 ms P-R-T Axes : 028 -33 028 degrees QTc Int : 504 ms Normal sinus rhythm Left axis deviation Left ventricular hypertrophy with QRS widening Confirmed by DEDE ZAMBRANO, ROSA ([id number]), pattern marking supervisor AUSTIN LOPEZ ([id number]) on 08/25/2018 3:27:30 PM Referred By: Terry Parry Confirmed By:ROSA AGUAYO MD
[2018-08-19] MEDS: 0.9% Normal Saline 1,000 ML 1000 ML IV (05:51)
[2018-08-19 05:58] LABS: Absolute Lymphocyte Count 0.66 X10^3/ul (0.83-4.51); Absolute Neutrophil Count 1.5 X10^3/uL (2.0-7.7); Basophil# 0.06 X10^3/uL; Basophil% 2.3 % (0-1); Eosinophil# 0.08 X10^3/uL; Eosinophils% 3.1 % (0-5); Hematocrit 32.8 % (37-47); Hemoglobin 10.9 g/dl (12.0-15.0); Lymphocyte # 0.66 X10^3/ul (4.0); Lymphocyte % 25.7 % (19-41); Mean Corp Hgb Conc 33.2 g/gl (32-36); Mean Corpuscular Hgb 27.2 pg (27.0-32.0); Mean Corpuscular Volume 81.8 fL (81-99); Mean Platelet Vol. 10.7 fl (6.2-12.0); Monocyte# 0.26 X10^3/uL; Monocyte% 10.1 % (0-10); Neutrophil # 1.51 X10^3/uL (2.7-7.7); Neutrophil % 58.8 % (47-70); Platelet Count 82 K/mm3 (150-450); RBC Distribution Width CV 14.7 % (11.6-14.6); RBC Distribution Width SD 43.3 fl (35.1-43.9); Red Blood Count 4.01 M/mm3 (4.2-5.4); White Blood Count 2.6 K/mm3 (4.4-11.0)
[2018-08-19 05:59] LABS: POSITIVE COUNT NO; POSITIVE DIFFERENTIAL NO; POSITIVE MORPHOLOGY NO
[2018-08-19 06:02] LABS: Bacteria 0 SEEN /hpf (None Seen); Mucous, Urine 0 SEEN /hpf (<or=2+); Red Blood Cells-Urine 0 SEEN /hpf (0-5); White Blood Cells 0 SEEN /hpf (0-5)
[2018-08-19 06:08] LABS: Color, Urine Yellow (Yellow); Glucose, Dipstick 1000 mg/dl (Normal); Ketone-Dipstick Negative (Negative); Leukocyte Esterase-Dipstick Negative /ul (Negative); Nitrite-Dipstick Negative (Negative); Occult Blood-Urine Negative /ul (Negative); Protein-Dipstick Negative (Negative); Specific Gravity, Urine 1.015 (1.002-1.030); Urine Bilirubin Dipstick Negative (Negative); Urine Clarity Clear (Clear); Urine Urobilinogen 1 mg/dl (Normal)
[2018-08-19 06:11] LABS: ALB/GLOB Ratio 0.6 RATIO (0.9-2.4); AST(SGOT) 72 U/L (15-37); Alanine Aminotransfer ALT/SGPT 57 U/L (13-56); Alkaline Phosphatase 300 U/L (45-117); Anion Gap 9 (5-15); BUN 7 mg/dL (7-18); Calcium,Total 8.5 mg/dL (8.5-10.1); Chloride 100 mmol/L (98-107); Creatinine, Serum 0.88 mg/dL (0.55-1.02); EST Glomerular Filtration Rate 73 mL/min (>60); Est Glom Filt Rate - Afr Amer 88 mL/min (>60); Estimated Creatinine Clearance 69.59 ml/min; Globulin 4.7 g/dL (2.2-4.2); Glucose 458 mg/dL (74-106); Lipase 223 U/L (73-393); Potassium 3.4 mmol/L (3.5-5.1); Protein, Total 7.7 g/dL (6.4-8.2); Sodium Level 136 mmol/L (136-145)
--- NOTE | 2018-08-19 06:13 | RAD_ITS ---
STUDY: X-RAY CHEST REASON FOR EXAM: Female, 47 years old. Weakness, hyperglycemia TECHNIQUE: PA and lateral views of the chest. COMPARISON: March 06, 2018 FINDINGS: Stable appearance of TIPS and cholecystectomy. The lungs are clear and expanded. There is no demonstrated pleural abnormality. Normal size heart. Normal mediastinum and sonny. Normal visualized pulmonary arteries. Normal visualized aortic arch and descending thoracic aorta. Normal visualized thoracic spine. Normal visualized ribs, clavicles, and shoulders. There is no demonstrated abnormality of the visualized soft tissue structures of the upper abdomen. RAD/Chest PA and Lateral IMPRESSION: No acute cardiopulmonary disease. No significant interval change. Electronically Signed: Meera Blackburn MD at 6:39 EDT , Service support ,
--- NOTE | 2018-08-19 06:13 | CT_ITS ---
STUDY: CT BRAIN WITHOUT CONTRAST REASON FOR EXAM: Female, 47 years old. Elevated blood sugar, history of London-Jez syndrome, cirrhosis, although to a new hepatitis RADIATION DOSAGE (If Supplied By Facility): CTDIvol = ( 44.99 ) mGy, DLP = ( 762.36 ) mGycm TECHNIQUE: Transaxial CT imaging of the brain was performed without administration of intravenous contrast material. Multiplanar coronal and sagittal images were reformatted. Individualized dose optimization techniques were used for this CT. COMPARISON: CT brain noncontrast 07/09/2016. FINDINGS: Normal soft tissue structures. Normal calvarium. Normal size ventricles and extra-axial spaces for the patient's age. Normal white matter tracts of the cerebral hemispheres. Normal basal ganglia and thalami. Normal brainstem. Normal cerebellum. There is no intracranial hemorrhage. There are no findings of an acute ischemic infarction. Normal visualized paranasal sinuses. CT/Brain/Head without Contrast IMPRESSION: There is no acute intracranial pathology. There is no significant interval change. Electronically Signed: Meera Blackburn MD at 6:41 EDT , Service support ,
[2018-08-19 06:19] LABS: Squamous Epithelial Cells - UA 0-5 SEEN /hpf (5-10)
[2018-08-19] MEDS: Insulin Lispro 100 UNIT/ML INSULN.PEN 10 UNIT IV (06:27)
[2018-08-19] MEDS: 0.9% Normal Saline 1,000 ML 150 ML IV ×2 (06:29→12:21)
--- NOTE | 2018-08-19 06:40 | ED.VISSUMM ---
- ER Visit Summary Date of Service: 08/19/18 Chief Complaint: Hyperglycemia History of Present Illness: The patient is a 47 F who has an extensive medical history including cirrhosis type 1 diabetes bipolar disorder Reilly's thyroiditis. She has had appendectomy cholecystectomy hysterectomy and a TIPS procedure. Primary care is Dr. Canchola. Angela tells me she was admitted into [facility] last week for hyperglycemia. Using online resources I was able to find that she had a endocrinology consult while inpatient and have placed that consult report on the chart for admitting providers. Patient states since leaving the hospital she continues to feel nauseated having headaches feels dizzy. She feels forgetful. She had vomiting today. She took her blood sugar and it was reading high so she took some additional regular insulin. Physical Examination: Afebrile vital signs are stable Gen: Well-nourished well-developed Head: Normocephalic atraumatic Eyes: Perrl EOMI ENT: TMs clear no rhinorrhea moist mucous membranes Neck: Supple no lymphadenopathy no JVD nontender CVS: Regular rate rhythm no murmurs normal S1-S2 Respiratory: No distress clear to auscultation bilaterally chest nontender Abdomen: Soft nontender nondistended normal bowel sounds no masses Back: Nontender Extremity: Nontender no edema Skin: Normal color no rash Neuro: alert orientated ?3 CN II-XII intact normal strength sensation reflexes gait cerebellar Psych: Blunted affect normal mood Test Results: White count 2.6 hemoglobin 10.9. Glucose 458. Ammonia level 101. Ketones negative. Total bili 1.2 alk phos 300 AST 72 ALT 57 lipase 223. EKG sinus at a rate of 79 chest x-ray negative. Emergency Department Course and Treatment: Patient received IV fluids and insulin. She also received lactulose. Review of online resources show on August 04, 2018 her ammonia level was 48. Our plan will be to admit the patient into the hospital. Impression: 1. Diabetic hyperglycemia 2. Hepatic encephalopathy This note was generated with [employer] dictation software. It may contain incorrect words, spelling, and punctuation that were not noted in review of the chart prior to signing ED Disposition - Plan for ED Patient: Chief Complaint: Hyperglycemia Referrals: Janay Canchola MD [Primary Care Provider] -
--- NOTE | 2018-08-19 06:47 | ED.DCSUM_ITS ---
- ER Visit Summary Date of Service: 08/19/18 Chief Complaint: Hyperglycemia History of Present Illness: The patient is a 47 F who has an extensive medical history including cirrhosis type 1 diabetes bipolar disorder Reilly's thyroiditis. She has had appendectomy cholecystectomy hysterectomy and a TIPS p rocedure. Primary care is Dr. Canchola. Angela tells me she was admitted into [facility] last week for hyperglycemia. Using online resources I was able to find that she had a endocrinology consult while inpatient and have placed that consult report on the chart for admitting providers. Patient states since leaving the hospital she continues to feel nauseated having headaches feels dizzy. She feels forgetful. She had vomiting today. She took her blood sugar and it was reading high so she took some additional regular insulin. Physical Examination: Afebrile vital signs are stable Gen: Well-nourished well-developed Head: Normocephalic atraumatic Eyes: Perrl EOMI ENT: TMs clear no rhinorrhea moist mucous membranes Neck: Supple no lymphadenopathy no JVD nontender CVS: Regular rate rhythm no murmurs normal S1-S2 Respiratory: No distress clear to auscultation bilaterally chest nontender Abdomen: Soft nontender nondistended normal bowel sounds no masses Back: Nontender Extremity: Nontender no edema Skin: Normal color no rash Neuro: alert orientated ?3 CN II-XII intact normal strength sensation reflexes gait cerebellar Psych: Blunted affect normal mood Test Results: White count 2.6 hemoglobin 10.9. Glucose 458. Ammonia level 101. Ketones negative. Total bili 1.2 alk phos 300 AST 72 ALT 57 lipase 223. EKG sinus at a rate of 79 chest x-ray negative. Emergency Department Course and Treatment: Patient received IV fluids and insulin. She also received lactulose. Review of online resources show on August 04, 2018 her ammonia level was 48. Our plan will be to admit the patient into the hospital. Impression: 1. Diabetic hyperglycemia 2. Hepatic encephalopathy This note was generated with [employer] dictation software. It may contain incorrect words, spelling, and punctuation that were not noted in review of the chart prior to signing ED Disposition - Plan for ED Patient: Chief Complaint: Hyperglycemia Referrals: Janay Canchola MD [Primary Care Provider] -
[2018-08-19 06:51] LABS: Bedside Glucose 415 mg/dL (70-110)
[2018-08-19] MEDS: Lactulose 20 GM/30 ML UDC PO ×4 (06:54→21:27)
[2018-08-19 07:25] LABS: Bedside Glucose 336 mg/dL (70-110)
[2018-08-19 07:43] VITALS: BP 134/81; PULSE 73; RESP 16; O2SAT 98
--- NOTE | 2018-08-19 07:58 | HP.PCM_ITS ---
Problem List (1) Hepatic encephalopathy Status: Acute (2) Diabetes mellitus Status: Chronic Qualifiers: (3) Liver cirrhosis Status: Chronic (4) Reilly thyroiditis Status: Chronic (5) Autoimmune hepatitis Status: Chronic (6) Schizoaffective disorder Status: Chronic Qualifiers: (7) Bipolar disorder Status: Chronic Qualifiers: (8) Splenomegaly Status: Chronic History of Present Illness Date of Admission: 08/19/18 Chief Complaint: Vomiting, confusion and disorientation for 2-3 weeks The patient is a 47 year old F with history of autoimmune related cirrhosis decompensated with esophageal varices, ascites, hypersplenism with thrombocytopenia and coagulopathy status post TIPS came to ER with confusion, disorientation, increased forgetfulness for about 2-3 weeks. The patient blood sugar was also high and she was admitted in [facility] on 08/14. She was discharged from there after control of sugar but told that she did not had ammonia level or proper address of hepatic encephalopathy. She denies fever, URI symptoms or flulike symptoms, lower urinary tract symptoms but had chills. She also had constipation and currently taking lactulose 30 mL twice daily. In ED, vital signs were unremarkable. Basic labs was significant of pancytopenia. K3.4, bicarb 27, anion gap 9 and glucose 458. Ammonia 101. LFT shows elevated transaminases and alkaline phosphatase. Lipase normal. Acetone level negative. Chest x-ray does not show acute cardiopulmonary disease. CT head no acute intracranial pathology. [] Past Medical History Past Medical History (Chronic Problems): Chronic Problems Diabetes mellitus (Chronic) Liver cirrhosis (Chronic) Reilly thyroiditis (Chronic) Autoimmune hepatitis (Chronic) Schizoaffective disorder (Chronic) Bipolar disorder (Chronic) Splenomegaly (Chronic) Allergies adhesive Allergy (Verified 08/19/18 05:34) Rash escitalopram oxalate [From Lexapro] Allergy (Verified 08/19/18 05:34) blindness gabapentin [From Neurontin] Allergy (Verified 08/19/18 05:34) Alan Jez's Syndrome lamotrigine [From Lamictal] Allergy (Verified 08/19/18 05:34) Blindness Preservatives Allergy (Uncoded 08/19/18 05:34) passed out, lungs deflated Preservatives in various foods including packaged gladys cheese, lettuce, and seafood. sour cream Allergy (Uncoded 08/19/18 05:34) Anaphylaxis Home Medications: Ambulatory Orders Medication Instructions Recorded Potassium Chloride [Klor-Con M20] 20 meq PO DAILY 09/25/15 Albuterol Inhaler [Ventolin Hfa] 2 puff INHALATION Q4H PRN PRN 02/16/16 Furosemide [Lasix] 80 mg PO DAILY 03/14/17 Insulin Lispro [Humalog] 12 units SC ACHS 03/14/17 Magnesium Oxide [Magnesium] 400 mg PO BID 03/14/17 Omeprazole [Prilosec] 20 mg PO DAILY 03/14/17 Ondansetron [Zofran Odt] 4 mg PO BID PRN 03/14/17 Metoclopramide [Reglan] 10 mg PO BID PRN 04/28/17 Spironolactone [Aldactone] 200 mg PO DAILY 04/28/17 traMADol [Ultram] 50 mg PO Q6H PRN PRN 04/28/17 Sennosides/Docusate Sodium [Senna 1 each PO DAILY PRN 04/29/17 Plus Tablet] Baclofen 10 mg PO QHS 11/04/17 Fluvoxamine Maleate [Luvox] 25 mg PO QHS 11/04/17 Rifaximin [Xifaxan] 550 mg PO BID 11/04/17 Ursodiol [Actigall] 300 mg PO BID 11/04/17 Insulin Glargine,Hum.rec.anlog 20 unit SQ BID 11/26/17 [Lantus] Dicyclomine HCl [Bentyl] 10 mg PO TID PRN PRN #1 capsule 02/15/18 Lactulose [Chronulac] 30 gm PO BID #1 udc 02/15/18 Albuterol Inhaler [Ventolin Hfa] 2 puff INHALATION Q4H PRN #1 03/06/18 inhaler Fluticasone Propionate [Flonase 15.8 ml NS BID PRN 08/19/18 Allergy Relief] Surgical History: - - Appendectomy, cholecystectomy, partial hysterectomy. 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, Bipolar, Depression MASTER CONTROL OPERATOR History: No pertinent MASTER CONTROL OPERATOR history Smoking Status: Never smoker - *Family History Paternal History Items: - - father with heart attacks and strokes Maternal History Items: No pertinent history Review of Systems Constitutional: Reports: Chills. Denies: Fever HEENT: Denies: Head Aches, Sinus Congestion, Sinus Drainage Cardiovascular: Denies: Chest Pain, Palpitations Respiratory: Denies: Cough, Shortness of breath at rest, Sputum production Gastrointestinal: Reports: Constipation, - - Mild epigastric burning. Denies: Abdominal Pain, Nausea, Vomiting Genitourinary: Reports: Frequency, Hematuria. Denies: Dysuria Musculoskeletal: Reports: Arm Pain Skin: Reports: Dryness, Pruritis Neurological: Reports: Confusion. Denies: Focal weakness, Numbness, Tingling Psychiatric: Reports: Anxiety, Depression Unable to obtain accurate/complete ROS d/t: Patient has memory issues, HE VTE Information - Inpt Only VTE Present on Admission: No VTE Mechan Device Prophylaxis: SCD's Reason prophylaxis not ordered:: Medical Contraindication - Physical Exam General: Alert, Cooperative, Disoriented, Lethargic HEENT: Atraumatic, PERRLA, EOMI, Normocephalic Oral: Dry Mucosa Neck: Supple, No JVD, Negative Carotid Bruits Lungs: Clear to auscultation, No rhonchi, No wheeze, No rales, Diminished Cardiovascular: Regular rate, Regular Rhythm, Normal S1, Normal S2, No murmurs Abdomen: Bowel Sounds Present, Soft, Non Tender, - - Mild or minimal ascites s/p TIPS Extremities: No edema, Capillary Refill Less than 3 Seconds Skin: No rashes, No breakdown Musculoskeletal: No Tenderness to Palpation of Joints or Extremities, Arthritic Changes Neurological: Cranial nerves II-XII grossly intact, Deep Tendon Reflexes 2+/4 and Symmetrical, Neuro grossly intact Psych/Mental Status: Normal Affect, Appropriate Vital Signs Temp Pulse Resp BP Pulse Ox 98.1 F 73 16 134/81 H 98 08/19/18 05:28 08/19/18 07:43 08/19/18 07:43 08/19/18 07:43 08/19/18 07:43 Oxygen Delivery Method Room Air Weight: 188 lb 7.924 oz Body Mass Index (BMI) 31.4 Finger Stick Blood Glucose 336 Laboratory Tests Past 24 Hrs 08/19/18 08/19/18 08/19/18 05:39 05:39 05:39 WBC 2.6 L RBC 4.01 L Hgb 10.9 L Hct 32.8 L MCV 81.8 MCH 27.2 MCHC 33.2 RDW 14.7 H RDW Differential 43.3 Plt Count 82 L MPV 10.7 Immature Gran % (Auto) 0.000 Neut % (Auto) 58.8 Lymph % (Auto) 25.7 [place] % (Auto) 10.1 H Eos % (Auto) 3.1 Baso % (Auto) 2.3 H Absolute Neuts (auto) 1.5 L Absolute Lymphs (auto) 0.66 L Total Counted Not Reportable Sodium 136 Potassium 3.4 L Chloride 100 Carbon Dioxide 27.0 Anion Gap 9 BUN 7 Creatinine 0.88 Estim Creat Clear Calc 69.59 Est GFR (MDRD) Af Amer 88 Est GFR (MDRD) Non-Af 73 BUN/Creatinine Ratio 8.0 L Glucose 458 H* Calcium 8.5 Total Bilirubin 1.20 H AST 72 H ALT 57 H Alkaline Phosphatase 300 H Ammonia Total Protein 7.7 Albumin 3.0 L Globulin 4.7 H Albumin/Globulin Ratio 0.6 L Lipase 223 Urine Color Urine Clarity Urine pH Ur Specific Glenn Urine Protein Urine Glucose (UA) Urine Ketones Urine Occult Blood Urine Nitrite Urine Bilirubin Urine Urobilinogen Ur Leukocyte Esterase Urine RBC Urine WBC Ur Squamous Epith Cells Urine Bacteria Urine Mucus Acetone Level NEGATIVE 08/19/18 08/19/18 05:50 05:55 WBC RBC Hgb Hct MCV MCH MCHC RDW RDW Differential Plt Count MPV Immature Gran % (Auto) Neut % (Auto) Lymph % (Auto) [place] % (Auto) Eos % (Auto) Baso % (Auto) Absolute Neuts (auto) Absolute Lymphs (auto) Total Counted Sodium Potassium Chloride Carbon Dioxide Anion Gap BUN Creatinine Estim Creat Clear Calc Est GFR (MDRD) Af Amer Est GFR (MDRD) Non-Af BUN/Creatinine Ratio Glucose Calcium Total Bilirubin AST ALT Alkaline Phosphatase Ammonia 101.0 H Total Protein Albumin Globulin Albumin/Globulin Ratio Lipase Urine Color Yellow Urine Clarity Clear Urine pH 8.0 Ur Specific Glenn 1.015 Urine Protein Negative Urine Glucose (UA) 1000 H Urine Ketones Negative Urine Occult Blood Negative Urine Nitrite Negative Urine Bilirubin Negative Urine Urobilinogen 1 H Ur Leukocyte Esterase Negative Urine RBC 0 SEEN Urine WBC 0 SEEN Ur Squamous Epith Cells 0-5 SEEN Urine Bacteria 0 SEEN Urine Mucus 0 SEEN Acetone Level POC Glucose 08/19/18 08/19/18 07:23 06:45 POC Glucose 336 H 415 H Assessment/Plan All Active Problems Hepatic encephalopathy (Acute) Chest pain (Acute) The patient is a 47 year old F with history of autoimmune related cirrhosis decompensated with esophageal varices, ascites, hypersplenism with thrombocytopenia and coagulopathy status post TIPS came to ER with confusion, disorientation, increased forgetfulness for about 2-3 weeks. The patient blood sugar was also high and she was admitted in [facility] on 08/14. She was discharged from there after control of sugar but told that she did not had ammonia level or proper address of hepatic encephalopathy. She denies fever, URI symptoms or flulike symptoms, lower urinary tract symptoms but had chills. She also had constipation and currently taking lactulose 30 mL twice daily. In ED, vital signs were unremarkable. Basic labs was significant of pancytopenia. K3.4, bicarb 27, anion gap 9 and glucose 458. Ammonia 101. LFT shows elevated transaminases and alkaline phosphatase. Lipase normal. Acetone level negative. Chest x-ray does not show acute cardiopulmonary disease. CT head no acute intracranial pathology. 1. Acute encephalopathy most probably secondary to hepatic encephalopathy without coma associated with metabolic encephalopathy: Patient is being admitted to regular MedSurg floor. IV fluid normal saline. Lactulose 30 mL every 4 times daily to titrate to achieve goal of about 3 bowel movements per day. Xifaxan 550 mg twice daily. Infectious workup with UA, urine culture. If patient spikes fever, blood culture x2. Flu test ordered. I think, hepatic encephalopathy probably gotten worse and after TIPS which she had about a year ago 2. Decompensated autoimmune related cirrhosis with esophageal varices, ascites, hypersplenism with thrombocytopenia and coagulopathy status post TIPS: Patient might need to see her rayon winder, Dr. Nabil Conroy in [facility]. GGT ordered. Patient had cholecystectomy and had one episode of pancreatitis more than 10 years ago. Continue ursodiol and other home medications. 3. Diabetes mellitus type 2 with hyperglycemia: Blood sugar needs to be controlled on Accu-Chek before meals and at bedtime cover with NovoLog sliding scale and Lantus insulin. 4. Other autoimmune disease, Reilly's thyroiditis. 5. Psychiatric conditions, schizoaffective disorder, bipolar disorder: Home medication reconciliation done. DVT prophylaxis: Pharmacological prophylaxis contraindicated in view of coagulopathy and thrombocytopenia. Bilateral SCDs. this note was generated with [employer] software. Every effort was made to ensure accuracy, however computerized splicing machine operator automatic mistakes may persist. Laboratory Results 08/19/18 05:39: WBC 2.6 L, RBC 4.01 L, Hgb 10.9 L, Hct 32.8 L, MCV 81.8, MCH 27.2, MCHC 33.2, RDW 14.7 H, RDW Differential 43.3, Plt Count 82 L, MPV 10.7, Immature Gran % (Auto) 0.000, Neut % (Auto) 58.8, Lymph % (Auto) 25.7, [place] % (Auto) 10.1 H, Eos % (Auto) 3.1, Baso % (Auto) 2.3 H, Absolute Neuts (auto) 1.5 L, Absolute Lymphs (auto) 0.66 L, Total Counted Not Reportable 08/19/18 05:39: Sodium 136, Potassium 3.4 L, Chloride 100, Carbon Dioxide 27.0, Anion Gap 9, BUN 7, Creatinine 0.88, Estim Creat Clear Calc 69.59, Est GFR (MDRD) Af Amer 88, Est GFR (MDRD) Non-Af 73, BUN/Creatinine Ratio 8.0 L, Glucose 458 H*, Calcium 8.5, Total Bilirubin 1.20 H, AST 72 H, ALT 57 H, Alkaline Phosphatase 300 H, Total Protein 7.7, Albumin 3.0 L, Globulin 4.7 H, Albumin/Globulin Ratio 0.6 L, Lipase 223 08/19/18 05:39: Acetone Level NEGATIVE 08/19/18 05:50: Ammonia 101.0 H 08/19/18 05:55: Urine Color Yellow, Urine Clarity Clear, Urine pH 8.0, Ur Specific Glenn 1.015, Urine Protein Negative, Urine Glucose (UA) 1000 H, Urine Ketones Negative, Urine Occult Blood Negative, Urine Nitrite Negative, Urine Bilirubin Negative, Urine Urobilinogen 1 H, Ur Leukocyte Esterase Negative, Urine RBC 0 SEEN, Urine WBC 0 SEEN, Ur Squamous Epith Cells 0-5 SEEN, Urine Bacteria 0 SEEN, Urine Mucus 0 SEEN 08/19/18 06:45: POC Glucose 415 H 08/19/18 07:23: POC Glucose 336 H Code Visit Inpatient E&M: 41167 Init Hosp L3
[2018-08-19 08:39] VITALS: BMI 27.6; BMI 27.7
[2018-08-19 08:51] VITALS: BP 140/75; PULSE 71; RESP 16; TEMP 36.3; O2SAT 100
[2018-08-19 09:56] LABS: Magnesium 1.8 mg/dL (1.6-2.6)
[2018-08-19 10:36] LABS: Phosphorus 3.6 mg/dL (2.5-4.9)
[2018-08-19 10:47] LABS: Bilirubin, Direct 0.64 mg/dL (0.00-0.30)
[2018-08-19 11:04] VITALS: O2SAT 97
--- NOTE | 2018-08-19 12:00 | CASEMGMT ---
TAMIKO MELLO INITIAL REVIEW ASSESSMENT: See link attached. D/C PLAN: Home Face to Face with patient for initial transition planning/care coordination assessment. TAMIKO MELLO introduced self and role at [facility]. Care providers, pharmacy, and demographics verified. Pt states she has all of her diabetic supplies and does not need any assistance with anything further. PCP: Dr Janay Canchola Specialists: Dr Nabil Conroy @ [facility] (motor vehicle clerk) Preferred Pharmacy: [facility] Insurance: [employer] Prescription Benefit: [employer] Living Will/HPOA: Has both. Sj Campos, is HPOA, but pt states is wishing to change this soon. Offered to have SW come to speak with her about this but pt declines at this time, stating she will take care of it later. Living Arrangements: Lives w/Sj campos, his daughter and granddaughter, and pt's 13-yr-old son. Transportation: Pt drives DME: See attached link HHC: States has never used HHC and denies needs at this time. Pt's plans on D/C: Wishes to return home. CM to follow for any further discharge planning needs that may arise. Malou VILLALOBOS RN, CM
[2018-08-19] MEDS: Spironolactone 50 MG Tablet 200 MG PO (12:23)
[2018-08-19] MEDS: Furosemide 40 MG Tablet PO (12:23)
[2018-08-19] MEDS: Magnesium Oxide 400 MG Tablet PO ×2 (12:27→21:27)
[2018-08-19] MEDS: Senna/Docusate Sodium 1 Tablet PO ×2 (12:27→21:27)
[2018-08-19] MEDS: rifAXIMin 550 MG Tablet PO ×2 (12:27→21:27)
[2018-08-19] MEDS: Insulin Lispro 100 UNIT/ML INSULN.PEN 12 UNIT SC ×3 (12:43→21:28)
[2018-08-19] MEDS: Insulin Lispro 100 UNIT/ML INSULN.PEN SQ ×3 (12:44→21:28)
[2018-08-19] MEDS: Dicyclomine 10 MG Capsule PO (12:53)
[2018-08-19 12:56] LABS: Bedside Glucose 294 mg/dL (70-110)
[2018-08-19 14:00] VITALS: BP 132/76; PULSE 74; RESP 16; TEMP 36.7; O2SAT 98
[2018-08-19 14:28] LABS: Mucous, Urine 0 SEEN /hpf (<or=2+); Red Blood Cells-Urine 0 SEEN /hpf (0-5); White Blood Cells 0 SEEN /hpf (0-5)
[2018-08-19 14:42] LABS: Color, Urine Yellow (Yellow); Glucose, Dipstick 1000 mg/dl (Normal); Ketone-Dipstick Negative (Negative); Leukocyte Esterase-Dipstick Negative /ul (Negative); Nitrite-Dipstick Negative (Negative); Occult Blood-Urine Negative /ul (Negative); Protein-Dipstick Negative (Negative); Urine Bilirubin Dipstick Negative (Negative); Urine Clarity Clear (Clear); Urine Urobilinogen 1 mg/dl (Normal)
[2018-08-19 14:47] LABS: Bacteria RARE /hpf (None Seen); Squamous Epithelial Cells - UA 0-5 SEEN /hpf (5-10)
[2018-08-19] MEDS: proMETHazine 25 MG/ML Syringe 12.5 MG IV (15:29)
[2018-08-19 17:16] LABS: Bedside Glucose 335 mg/dL (70-110)
[2018-08-19 18:30] LABS: Bedside Glucose 431 mg/dL (70-110)
[2018-08-19 21:21] VITALS: BP 110/59; PULSE 79; RESP 14; TEMP 36.9; O2SAT 98
[2018-08-19] MEDS: Ursodiol 250 MG Tablet PO (21:27)
[2018-08-19] MEDS: fluvoxaMINE Maleate 50 MG Tablet 25 MG PO (21:27)
[2018-08-19 22:11] LABS: Bedside Glucose 224 mg/dL (70-110)
[2018-08-20 02:17] VITALS: BP 127/66; PULSE 74; RESP 14; TEMP 37; O2SAT 97
[2018-08-20] MEDS: Lactulose 20 GM/30 ML UDC PO ×2 (02:19→05:58)
[2018-08-20] MEDS: proMETHazine 25 MG/ML Syringe 12.5 MG IV (06:02)
[2018-08-20] MEDS: traMADol 50 MG Tablet PO ×2 (06:05→14:33)
[2018-08-20 06:32] LABS: Absolute Lymphocyte Count 0.74 X10^3/ul (0.83-4.51); Absolute Neutrophil Count 1.6 X10^3/uL (2.0-7.7); Basophil# 0.05 X10^3/uL; Basophil% 1.8 % (0-1); Eosinophil# 0.12 X10^3/uL; Eosinophils% 4.3 % (0-5); Hematocrit 32.5 % (37-47); Lymphocyte # 0.74 X10^3/ul (4.0); Lymphocyte % 26.5 % (19-41); Mean Corp Hgb Conc 33.8 g/gl (32-36); Mean Corpuscular Hgb 27.9 pg (27.0-32.0); Mean Corpuscular Volume 82.5 fL (81-99); Mean Platelet Vol. 12.1 fl (6.2-12.0); Monocyte% 10.8 % (0-10); Neutrophil # 1.57 X10^3/uL (2.7-7.7); Neutrophil % 56.2 % (47-70); Platelet Count 91 K/mm3 (150-450); RBC Distribution Width SD 43.5 fl (35.1-43.9); Red Blood Count 3.94 M/mm3 (4.2-5.4); White Blood Count 2.8 K/mm3 (4.4-11.0)
[2018-08-20 06:34] LABS: POSITIVE COUNT NO; POSITIVE DIFFERENTIAL NO; POSITIVE MORPHOLOGY NO
[2018-08-20 06:46] LABS: Anion Gap 9 (5-15); BUN 6 mg/dL (7-18); BUN/Creat Ratio 8.8 RATIO (10-20); Calcium,Total 8.5 mg/dL (8.5-10.1); Chloride 109 mmol/L (98-107); Creatinine, Serum 0.68 mg/dL (0.55-1.02); EST Glomerular Filtration Rate 97 mL/min (>60); Est Glom Filt Rate - Afr Amer 117 mL/min (>60); Estimated Creatinine Clearance 104.59 ml/min; GGTP 479 U/L (5-55); Glucose 187 mg/dL (74-106); Potassium 3.8 mmol/L (3.5-5.1); Sodium Level 142 mmol/L (136-145)
[2018-08-20 08:10] VITALS: BP 147/84; PULSE 77; RESP 16; TEMP 36.6; O2SAT 96
--- NOTE | 2018-08-20 08:32 | NURSING ---
Pt stated she has had a fall within the last 3 months. States she does not know what caused the fall. Instructed the pt to use the call light when she needed to get out of bed. Pt stated if she has to call for help then she will refuse the lactulose. manufacturing supervisor 2nd shift had the pt up independent without issues. Pt also refused her SCD's. Will notify the
[2018-08-20 08:42] LABS: Hemoglobin A1c 11.3 % (4.2-6.3)
[2018-08-20 08:50] LABS: Bedside Glucose 254 mg/dL (70-110)
[2018-08-20 09:03] VITALS: O2SAT 96
--- NOTE | 2018-08-20 09:04 | NURSING ---
Pt. requesting to wait for AM meds until she receives her breakfast. Requested that pt call out when breakfast arrives- pt verbalizes understanding.
--- NOTE | 2018-08-20 10:08 | PCM.DC ---
You will use the following diet at home:: Calorie/Carbohydrate Controlled (specify 1200, 1400, etc) - 1800 ADA diet, Cardiac Your food should be the consistency of: Regular Discharge Activity: May Not Drive Call your doctor if you observe: Fever of 101 or Higher, Shortness of breath, Swelling in the ankles, Chest pain Additional Instructions: Follow-up the [facility] tool engine lathe set up operator, Dr Nabil Calles to adjust diuretics and her psychiatrist to adjust antipsychotic medications. Allergies/Adverse Reactions: Allergies adhesive Allergy (Verified 08/19/18 05:34) Rash escitalopram oxalate [From Lexapro] Allergy (Verified 08/19/18 05:34) blindness gabapentin [From Neurontin] Allergy (Verified 08/19/18 05:34) Alan Jez's Syndrome lamotrigine [From Lamictal] Allergy (Verified 08/19/18 05:34) Blindness Preservatives Allergy (Uncoded 08/19/18 05:34) passed out, lungs deflated Preservatives in various foods including packaged gladys cheese, lettuce, and seafood. sour cream Allergy (Uncoded 08/19/18 05:34) Anaphylaxis Medications to take at Discharge Potassium Chloride [Klor-Con M20] 20 meq PO BID 09/25/15 Albuterol Inhaler [Ventolin Hfa] 2 puff INHALATION Q4H PRN PRN 02/16/16 Furosemide [Lasix] 80 mg PO DAILY 03/14/17 Insulin Lispro [Humalog] 12 units SC ACHS 03/14/17 Magnesium Oxide [Magnesium] 400 mg PO BID 03/14/17 Ondansetron [Zofran Odt] 4 mg PO BID PRN 03/14/17 Metoclopramide [Reglan] 10 mg PO BID PRN 04/28/17 Spironolactone [Aldactone] 200 mg PO DAILY 04/28/17 traMADol [Ultram] 50 mg PO Q6H PRN PRN 04/28/17 Sennosides/Docusate Sodium [Senna Plus Tablet] 1 each PO DAILY PRN 04/29/17 Fluvoxamine Maleate [Luvox] 25 mg PO QHS 11/04/17 Rifaximin [Xifaxan] 550 mg PO BID 11/04/17 Ursodiol [Actigall] 300 mg PO BID 11/04/17 Insulin Glargine,Hum.rec.anlog [Lantus] 20 unit SQ BID 11/26/17 Carbamazepine [Carbatrol] 300 mg PO BID 08/19/18 Cholecalciferol (Vitamin D3) [Vitamin D3] 50,000 unit PO QWEEK 08/19/18 Clobetasol Propionate [Temovate Ointment] 1 applic TOPICAL QHS 08/19/18 Dicyclomine HCl [Bentyl] 20 mg PO ACHS 08/19/18 Fluticasone Propionate [Flonase Allergy Relief] 15.8 ml NS BID PRN 08/19/18 Pregabalin [Lyrica] 25 mg PO BID 08/19/18 Sucralfate [Carafate] 1 gm PO ACHS 08/19/18 Baclofen 5 mg PO QHS #0 08/20/18 Lactulose [Chronulac] 30 gm PO BID #1 udc 08/20/18 Omeprazole [Prilosec] 40 mg PO DAILY #0 08/20/18 The following prescriptions were given: Lactulose [Chronulac] 30 gm PO BID #1 udc Primary Care Physician: Janay Canchola MD [Primary Care Provider] - Please follow up with your Primary Care Physician in: in 1-2 weeks Test Results: Test results from this visit will be discussed in further detail at your follow-up appointment, if applicable.
--- NOTE | 2018-08-20 10:14 | DCINST_ITS ---
You will use the following diet at home:: Calorie/Carbohydrate Controlled (specify 1200, 1400, etc) - 1800 ADA diet, Cardiac Your food should be the consistency of: Regular Discharge Activity: May Not Drive Call your doctor if you observe: Fever of 101 or Higher, Shortness of breath, Sw elling in the ankles, Chest pain Additional Instructions: Follow-up the [facility] citrus fruit colorer, Dr Nabil Calles to adjust diuretics and her psychiatrist to adjust antipsychotic medications. Allergies/Adverse Reactions: Allergies adhesive Allergy (Verified 08/19/18 05:34) Rash escitalopram oxalate [From Lexapro] Allergy (Verified 08/19/18 05:34) blindness gabapentin [From Neurontin] Allergy (Verified 08/19/18 05:34) Alan Jez's Syndrome lamotrigine [From Lamictal] Allergy (Verified 08/19/18 05:34) Blindness Preservatives Allergy (Uncoded 08/19/18 05:34) passed out, lungs deflated Preservatives in various foods including packaged gladys cheese, lettuce, and seafood. sour cream Allergy (Uncoded 08/19/18 05:34) Anaphylaxis Medications to take at Discharge Potassium Chloride [Klor-Con M20] 20 meq PO BID 09/25/15 Albuterol Inhaler [Ventolin Hfa] 2 puff INHALATION Q4H PRN PRN 02/16/16 Furosemide [Lasix] 80 mg PO DAILY 03/14/17 Insulin Lispro [Humalog] 12 units SC ACHS 03/14/17 Magnesium Oxide [Magnesium] 400 mg PO BID 03/14/17 Ondansetron [Zofran Odt] 4 mg PO BID PRN 03/14/17 Metoclopramide [Reglan] 10 mg PO BID PRN 04/28/17 Spironolactone [Aldactone] 200 mg PO DAILY 04/28/17 traMADol [Ultram] 50 mg PO Q6H PRN PRN 04/28/17 Sennosides/Docusate Sodium [Senna Plus Tablet] 1 each PO DAILY PRN 04/29/17 Fluvoxamine Maleate [Luvox] 25 mg PO QHS 11/04/17 Rifaximin [Xifaxan] 550 mg PO BID 11/04/17 Ursodiol [Actigall] 300 mg PO BID 11/04/17 Insulin Glargine,Hum.rec.anlog [Lantus] 20 unit SQ BID 11/26/17 Carbamazepine [Carbatrol] 300 mg PO BID 08/19/18 Cholecalciferol (Vitamin D3) [Vitamin D3] 50,000 unit PO QWEEK 08/19/18 Clobetasol Propionate [Temovate Ointment] 1 applic TOPICAL QHS 08/19/18 Dicyclomine HCl [Bentyl] 20 mg PO ACHS 08/19/18 Fluticasone Propionate [Flonase Allergy Relief] 15.8 ml NS BID PRN 08/19/18 Pregabalin [Lyrica] 25 mg PO BID 08/19/18 Sucralfate [Carafate] 1 gm PO ACHS 08/19/18 Baclofen 5 mg PO QHS #0 08/20/18 Lactulose [Chronulac] 30 gm PO BID #1 udc 08/20/18 Omeprazole [Prilosec] 40 mg PO DAILY #0 08/20/18 The following prescriptions were given: Lactulose [Chronulac] 30 gm PO BID #1 udc Primary Care Physician: Janay Canchola MD [Primary Care Provider] - Please follow up with your Primary Care Physician in: in 1-2 weeks Test Results: Test results from this visit will be discussed in further detail at your follow- up appointment, if applicable.
--- NOTE | 2018-08-20 10:17 | DS.PCM_ITS ---
Discharge Date and Diagnosis Date of Admission: 08/19/18 Date of Discharge: 08/20/18 - Primary Discharge Diagnosis Acute encephalopathy most probably secondary to hepatic encephalopathy without coma with decompensated cirrhosis associated with metabolic encephalopathy Diabetes mellitus type 2, with uncontrolled hyperglycemia - Secondary Discharge Diagnosis Chronic Problems Diabetes mellitus (Chronic) Liver cirrhosis (Chronic) Reilly thyroiditis (Chronic) Autoimmune hepatitis (Chronic) Schizoaffective disorder (Chronic) Bipolar disorder (Chronic) Splenomegaly (Chronic) Hospital Course and Treatment Operations: None Summary of Care Provided: [] The patient is a 47 year old F with history of autoimmune related cirrhosis decompensated with esophageal varices, ascites, hypersplenism with thrombocytopenia and coagulopathy status post TIPS came to ER with confusion, disorientation, increased forgetfulness for about 2-3 weeks. The patient blood sugar was also high and she was admitted in [facility] on 08/14. She was discharged from there after control of sugar but told that she did not had ammonia level or proper address of hepatic encephalopathy. She denies fever, URI symptoms or flulike symptoms, lower urinary tract symptoms but had chills. She also had constipation and currently taking lactulose 30 mL twice daily. In ED, vital signs were unremarkable. Basic labs was significant of pancytopenia. K3.4, bicarb 27, anion gap 9 and glucose 458. Ammonia 101. LFT shows elevated transaminases and alkaline phosphatase. Lipase normal. Acetone level negative. Chest x-ray does not show acute cardiopulmonary disease. CT head no acute intracranial pathology. The patient was seen and examined on the day of discharge. Please see progress note of the same date of 08/20/2018. 1. Acute encephalopathy most probably secondary to hepatic encephalopathy without coma associated with metabolic encephalopathy: Patient is being admitted to regular MedSurg floor. IV fluid normal saline. Lactulose 30 mL twice daily to titrate to achieve goal of about 3 bowel movements per day. Xifaxan 550 mg twice daily. UA is negative of pyuria or hematuria, LE and nitrite negative. Urine culture shows mixed gram-positive organism. UTI ruled out. If patient spikes fever, blood culture x2. I think, hepatic encephalopathy probably gotten worse and after TIPS which she had about a year ago 2. Decompensated autoimmune related cirrhosis with esophageal varices, ascites, hypersplenism with thrombocytopenia and coagulopathy status post TIPS: Patient might need to see her help desk supervisor, Dr. Nabil Conroy in [facility]. GGT ordered. Patient had cholecystectomy and had one episode of pancreatitis more than 10 years ago. Continue ursodiol and other home medications. 3. Diabetes mellitus type 2 with hyperglycemia: Blood sugar needs to be controlled on Accu-Chek before meals and at bedtime cover with NovoLog sliding scale and Lantus insulin. Lantus and NovoLog scheduled and sliding scale increased. Patient blood sugar was controlled to 190 mg percent. Patient was discharged on the increased dose of lispro insulin and Lantus insulin 20 units subcu twice daily. 4. Other autoimmune disease, Reilly's thyroiditis. 5. Psychiatric conditions, schizoaffective disorder, bipolar disorder: Home medication reconciliation done. DVT prophylaxis: Pharmacological prophylaxis contraindicated in view of coagulopathy and thrombocytopenia. Bilateral SCDs. Discharge medication reconciliation done. Discharge follow-up instructions given. Follow-up the [facility] help desk supervisor, Dr Nabil Calles to adjust diuretics and her psychiatrist to adjust antipsychotic medications. I think par t of the problem of encephalopathy related to medication/polypharmacy review of hepatic encephalopathy. Total time spent, exact 35 minutes on discharge meds reconciliation, examination, review of imaging and blood test and discussion with the patient on follow-up instructions. this note was generated with Babelway dictation software. Every effort was made to ensure accuracy, however computerized weaving teacher mistakes may persist. Discharge Activity: May Not Drive Call your doctor if you observe: Fever of 101 or Higher, Shortness of breath, Swelling in the ankles, Chest pain Home Medications: Medications to take at Discharge Potassium Chloride [Klor-Con M20] 20 meq PO BID 09/25/15 Albuterol Inhaler [Ventolin Hfa] 2 puff INHALATION Q4H PRN PRN 02/16/16 Furosemide [Lasix] 80 mg PO DAILY 03/14/17 Insulin Lispro [Humalog] 12 units SC ACHS 03/14/17 Magnesium Oxide [Magnesium] 400 mg PO BID 03/14/17 Ondansetron [Zofran Odt] 4 mg PO BID PRN 03/14/17 Metoclopramide [Reglan] 10 mg PO BID PRN 04/28/17 Spironolactone [Aldactone] 200 mg PO DAILY 04/28/17 traMADol [Ultram] 50 mg PO Q6H PRN PRN 04/28/17 Sennosides/Docusate Sodium [Senna Plus Tablet] 1 each PO DAILY PRN 04/29/17 Fluvoxamine Maleate [Luvox] 25 mg PO QHS 11/04/17 Rifaximin [Xifaxan] 550 mg PO BID 11/04/17 Ursodiol [Actigall] 300 mg PO BID 11/04/17 Insulin Glargine,Hum.rec.anlog [Lantus] 20 unit SQ BID 11/26/17 Carbamazepine [Carbatrol] 300 mg PO BID 08/19/18 Cholecalciferol (Vitamin D3) [Vitamin D3] 50,000 unit PO QWEEK 08/19/18 Clobetasol Propionate [Temovate Ointment] 1 applic TOPICAL QHS 08/19/18 Dicyclomine HCl [Bentyl] 20 mg PO ACHS 08/19/18 Fluticasone Propionate [Flonase Allergy Relief] 15.8 ml NS BID PRN 08/19/18 Pregabalin [Lyrica] 25 mg PO BID 08/19/18 Sucralfate [Carafate] 1 gm PO ACHS 08/19/18 Baclofen 5 mg PO QHS #0 08/20/18 Lactulose [Chronulac] 30 gm PO BID #1 udc 08/20/18 Omeprazole [Prilosec] 40 mg PO DAILY #0 08/20/18 Following Prescrptions Were Given to Patient: Lactulose [Chronulac] 30 gm PO BID #1 udc Primary Care Physician: Janay Canchola MD [Primary Care Provider] - Please follow up with your Primary Care Physician in: in 1-2 weeks Medical Necessity - Tobacco Use Smoking Status: Never smoker Meaningful Use Info Meaningful Use Diagnoses (Choose all that apply): None applicable Code Visit Inpatient E&M: 77722 Disch Hosp
[2018-08-20 10:56] LABS: AST(SGOT) 97 U/L (15-37); Alanine Aminotransfer ALT/SGPT 63 U/L (13-56); Albumin, Serum 2.7 g/dL (3.2-5.0); Alkaline Phosphatase 254 U/L (45-117); Bilirubin, Direct 0.63 mg/dL (0.00-0.30); Globulin 4.4 g/dL (2.2-4.2); Protein, Total 7.1 g/dL (6.4-8.2)
[2018-08-20] MEDS: Spironolactone 50 MG Tablet 200 MG PO (10:58)
[2018-08-20] MEDS: Magnesium Oxide 400 MG Tablet PO (10:58)
[2018-08-20] MEDS: Furosemide 40 MG Tablet PO (10:58)
[2018-08-20] MEDS: Ursodiol 250 MG Tablet PO (10:59)
[2018-08-20] MEDS: Senna/Docusate Sodium 1 Tablet PO (10:59)
[2018-08-20] MEDS: rifAXIMin 550 MG Tablet PO (10:59)
[2018-08-20] MEDS: Pantoprazole Sodium 40 MG Tablet PO (10:59)
[2018-08-20] MEDS: Insulin Lispro 100 UNIT/ML INSULN.PEN 12 UNIT SC (11:03)
[2018-08-20] MEDS: Insulin Lispro 100 UNIT/ML INSULN.PEN SQ ×2 (11:07→19:01)
--- NOTE | 2018-08-20 12:05 | NURSING ---
Addendum entered by Zahira Tobias 08/20/18 15:59: Notified by patient that slab lifting supervisor. stated that she was surprised she was in room eating ice cream at time of stat lab draw. Staff on unit deny giving pt ice cream. Pt. has been up independently- tolerating well. Will continue to monitor pt. Original Note: Addendum entered by Zahira Tobias 08/20/18 12:29: This RN called down and spoke with Keya who transferred this RN to another process laboratory specialist. Notified them that order was a stat lab draw for a BGT of 500. Verbalized understanding and stated it would be put into comments. Original Note: cathleen in lab called at this time for bgt of 500. notified of stat glucose draw.
[2018-08-20 12:30] LABS: Bedside Glucose 500 mg/dL (70-110)
[2018-08-20] MEDS: Insulin Lispro 100 UNIT/ML INSULN.PEN 23 UNIT SC (12:32)
[2018-08-20 12:42] LABS: Glucose 459 mg/dL (74-106)
[2018-08-20 14:11] VITALS: BP 133/74; PULSE 87; RESP 16; TEMP 36.9; O2SAT 98
[2018-08-20 15:05] LABS: Bedside Glucose 366 mg/dL (70-110)
--- NOTE | 2018-08-20 15:09 | NURSING ---
pt requesting that she not have visitors and that people not be able to call her. pt is starting to get anxious about discharge.
[2018-08-20 16:21] LABS: Bedside Glucose 191 mg/dL (70-110)
--- NOTE | 2018-08-20 17:00 | PCM.PN.HOSP ---
Subjective: Patient is more alert, awake and oriented x4. Patient has significant loose bowel movement on lactulose about 6 times yesterday. Her blood sugar is high although she is not on a steroid. Most probably uncontrolled diabetes mellitus type 2. Vitals/I&O's: Vital Signs Temp Pulse Resp BP Pulse Ox 98.4 F 87 16 133/74 H 98 08/20/18 14:11 08/20/18 14:11 08/20/18 14:11 08/20/18 14:11 08/20/18 14:11 Oxygen Delivery Method Room Air Weight: 187 lb 6.287 oz Body Mass Index (BMI) 27.6 Finger Stick Blood Glucose 336 Intake and Output for Last 24 Hours 08/18/18 08/19/18 08/20/18 23:59 23:59 23:59 Intake Total 2371 / 2371 600 / 600 Balance 2371 / 2371 600 / 600 General: Alert, Oriented x3, Cooperative HEENT: Atraumatic, PERRLA, EOMI, Normocephalic Neck: Supple, No JVD, Negative Carotid Bruits Lungs: Clear to auscultation, Normal air movement Cardiovascular: Regular rate, Normal S1, Normal S2, No murmurs Abdomen: Bowel Sounds Present, Soft, Non Tender, - - Mild ascites Extremities: Capillary Refill Less than 3 Seconds, Edema Skin: No rashes, No breakdown Musculoskeletal: No Tenderness to Palpation of Joints or Extremities, Arthritic Changes, Muscle Wasting Neurological: Cranial nerves II-XII grossly intact, Neuro grossly intact Psych/Mental Status: Normal Affect, Appropriate Microbiology Past 72 Hours 08/19/18 13:45 Urine, Clean Catch Urine Culture - Preliminary Mixed Gram Pos & Gram Neg Org Laboratory Results 08/19/18 05:33: POC Glucose 431 H 08/19/18 17:02: POC Glucose 335 H 08/19/18 21:24: POC Glucose 224 H 08/20/18 05:40: Sodium 142, Potassium 3.8, Chloride 109 H, Carbon Dioxide 24.0, Anion Gap 9, BUN 6 L, Creatinine 0.68, Estim Creat Clear Calc 104.59, Est GFR (MDRD) Af Amer 117, Est GFR (MDRD) Non-Af 97, BUN/Creatinine Ratio 8.8 L, Glucose 187 H, Calcium 8.5, GGT 479 H 08/20/18 05:40: WBC 2.8 L, RBC 3.94 L, Hgb 11.0 L, Hct 32.5 L, MCV 82.5, MCH 27.9, MCHC 33.8, RDW 15.0 H, RDW Differential 43.5, Plt Count 91 L, MPV 12.1 H, Immature Gran % (Auto) 0.400, Neut % (Auto) 56.2, Lymph % (Auto) 26.5, Moffat % (Auto) 10.8 H, Eos % (Auto) 4.3, Baso % (Auto) 1.8 H, Absolute Neuts (auto) 1.6 L, Absolute Lymphs (auto) 0.74 L, Total Counted Not Reportable 08/20/18 05:40: Hemoglobin A1c 11.3 H 08/20/18 05:40: Total Bilirubin 1.00, Direct Bilirubin 0.63 H, AST 97 H, ALT 63 H, Alkaline Phosphatase 254 H, Total Protein 7.1, Albumin 2.7 L, Globulin 4.4 H 08/20/18 08:21: POC Glucose 254 H 08/20/18 12:01: POC Glucose 500 H* 08/20/18 12:20: Glucose 459 H* 08/20/18 14:21: POC Glucose 366 H 08/20/18 16:07: POC Glucose 191 H Current Medications Al Hydroxide/Mg Hydroxide (Mylanta Ii) 30 ml PO Q6H PRN PRN PRN Reason: Gastric burning Albuterol Sulfate (Ventolin Aerosols) 2.5 mg INHALATION Q4H PRN PRN Reason: SOB/WHEEZING Dextrose (D50w Syringe) 0 gm IV X1 PRN; Protocol PRN Reason: Hypoglycemia Dicyclomine HCl (Bentyl) 10 mg PO TID PRN PRN PRN Reason: Cramp Last Admin: 08/19/18 12:53 Dose: 10 mg Fluticasone Propionate (Flonase Nasal [place]) 1 spray NASAL BID PRN PRN Reason: ALLERGIES Fluvoxamine Maleate (Luvox) 25 mg PO QHS YONI Last Admin: 08/19/18 21:27 Dose: 25 mg Furosemide (Lasix) 40 mg PO DAILY YONI Last Admin: 08/20/18 10:58 Dose: 40 mg Glucagon () 1 mg IM .X1 PRN PRN Reason: Hypoglycemia Insulin Glargine (Lantus (Bkc)) 25 units SC BID [facility] Insulin Human Lispro (Humalog Kwikpen (Bkc)) 0 unit SQ ACHS [facility]; Protocol Last Admin: 08/20/18 12:20 Dose: Not Given Insulin Human Lispro (Humalog Kwikpen (Bkc)) 20 unit SC ACHS [facility] Lactulose (Chronulac, Cephulac) 20 gm PO BID [facility] Magnesium Oxide (Mag-Ox 400) 400 mg PO BID [facility] Last Admin: 08/20/18 10:58 Dose: 400 mg Metoclopramide HCl (Reglan) 10 mg PO BID PRN PRN Reason: NAUSEA Pantoprazole Sodium (Protonix) 40 mg PO DAILY [facility] Last Admin: 08/20/18 10:59 Dose: 40 mg [facility]assium [facility]Dur[facility] Last Admin: 08/20/18 10:57 Dose: 20 meq Promethazine HCl (Phenergan) 12.5 mg IV Q6H PRN PRN PRN Reason: NAUSEA/VOMITING Last Admin: 08/20/18 06:02 Dose: 12.5 mg Rifaximin (Xifaxan) 550 mg PO BID [facility] Last Admin: 08/20/18 10:59 Dose: 550 mg Senna/Docusate Sodium (Senokot-S, Vy-Colace) 1 tablet PO BID [facility] Last Admin: 08/20/18 10:59 Dose: 1 tablet Spironolactone (Aldactone) 200 mg PO DAILY [facility] Last Admin: 08/20/18 10:58 Dose: 200 mg Tramadol HCl (Ultram) 50 mg PO Q6H PRN PRN PRN Reason: PAIN Last Admin: 08/20/18 14:33 Dose: 50 mg Ursodiol (Anthony) 250 mg PO BID [facility] Last Admin: 08/20/18 10:59 Dose: 250 mg Medical Necessity - Tobacco Use Smoking Status: Never smoker Assessment/Plan All Active Problems Hepatic encephalopathy (Acute) Chest pain (Acute) The patient is a 47 year old F with history of autoimmune related cirrhosis decompensated with esophageal varices, ascites, hypersplenism with thrombocytopenia and coagulopathy status post TIPS came to ER with confusion, disorientation, increased forgetfulness for about 2-3 weeks. The patient blood sugar was also high and she was admitted in [facility] on 08/14. She was discharged from there after control of sugar but told that she did not had ammonia level or proper address of hepatic encephalopathy. She denies fever, URI symptoms or flulike symptoms, lower urinary tract symptoms but had chills. She also had constipation and currently taking lactulose 30 mL twice daily. In ED, vital signs were unremarkable. Basic labs was significant of pancytopenia. K3.4, bicarb 27, anion gap 9 and glucose 458. Ammonia 101. LFT shows elevated transaminases and alkaline phosphatase. Lipase normal. Acetone level negative. Chest x-ray does not show acute cardiopulmonary disease. CT head no acute intracranial pathology. 1. Acute encephalopathy most probably secondary to hepatic encephalopathy without coma associated with metabolic encephalopathy: Patient is being admitted to regular MedSurg floor. IV fluid normal saline. Lactulose 30 mL twice daily to titrate to achieve goal of about 3 bowel movements per day. Xifaxan 550 mg twice daily. UA is negative of pyuria or hematuria, LE and nitrite negative. Urine culture shows mixed gram-positive organism. UTI ruled out. If patient spikes fever, blood culture x2. I think, hepatic encephalopathy probably gotten worse and after TIPS which she had about a year ago 2. Decompensated autoimmune related cirrhosis with esophageal varices, ascites, hypersplenism with thrombocytopenia and coagulopathy status post TIPS: Patient might need to see her inspector process, Dr. Nabil Conroy in [facility]. GGT ordered. Patient had cholecystectomy and had one episode of pancreatitis more than 10 years ago. Continue ursodiol and other home medications. 3. Diabetes mellitus type 2 with hyperglycemia: Blood sugar needs to be controlled on Accu-Chek before meals and at bedtime cover with NovoLog sliding scale and Lantus insulin. Lantus and NovoLog scheduled and sliding scale increased. 4. Other autoimmune disease, Reilly's thyroiditis. 5. Psychiatric conditions, schizoaffective disorder, bipolar disorder: Home medication reconciliation done. DVT prophylaxis: Pharmacological prophylaxis contraindicated in view of coagulopathy and thrombocytopenia. Bilateral SCDs. this note was generated with [employer] software. Every effort was made to ensure accuracy, however computerized veneer drier mistakes may persist. Microbiology Past 72 Hours 08/19/18 13:45 Urine, Clean Catch Urine Culture - Preliminary Mixed Gram Pos & Gram Neg Org Laboratory Results 08/19/18 05:33: POC Glucose 431 H 10/02/18 17:02: POC Glucose 335 H 08/19/18 21:24: POC Glucose 224 H 08/20/18 05:40: Sodium 142, Potassium 3.8, Chloride 109 H, Carbon Dioxide 24.0, Anion Gap 9, BUN 6 L, Creatinine 0.68, Estim Creat Clear Calc 104.59, Est GFR (MDRD) Af Amer 117, Est GFR (MDRD) Non-Af 97, BUN/Creatinine Ratio 8.8 L, Glucose 187 H, Calcium 8.5, GGT 479 H 08/20/18 05:40: WBC 2.8 L, RBC 3.94 L, Hgb 11.0 L, Hct 32.5 L, MCV 82.5, MCH 27.9, MCHC 33.8, RDW 15.0 H, RDW Differential 43.5, Plt Count 91 L, MPV 12.1 H, Immature Gran % (Auto) 0.400, Neut % (Auto) 56.2, Lymph % (Auto) 26.5, Moffat % (Auto) 10.8 H, Eos % (Auto) 4.3, Baso % (Auto) 1.8 H, Absolute Neuts (auto) 1.6 L, Absolute Lymphs (auto) 0.74 L, Total Counted Not Reportable 08/20/18 05:40: Hemoglobin A1c 11.3 H 08/20/18 05:40: Total Bilirubin 1.00, Direct Bilirubin 0.63 H, AST 97 H, ALT 63 H, Alkaline Phosphatase 254 H, Total Protein 7.1, Albumin 2.7 L, Globulin 4.4 H 08/20/18 08:21: POC Glucose 254 H 08/20/18 12:01: POC Glucose 500 H* 08/20/18 12:20: Glucose 459 H* 08/20/18 14:21: POC Glucose 366 H 08/20/18 16:07: POC Glucose 191 H Code Visit Inpatient E&M: 88959 Subs Hosp L3
--- NOTE | 2018-08-20 17:04 | PN_ITS ---
Subjective: Patient is more alert, awake and oriented x4. Patient has significant loose bowel movement on lactulose about 6 times yesterday. Her blood sugar is high although she is not on a steroid. Most probably uncontrolled diabetes mellitus type 2. Vitals/I&O's: Vital Signs Temp Pulse Resp BP Pulse Ox 98.4 F 87 16 133/74 H 98 08/20/18 14:11 08/20/18 14:11 08/20/18 14:11 08/20/18 14:11 08/20/18 14:11 Oxygen Delivery Method Room Air Weight: 187 lb 6.287 oz Body Mass Index (BMI) 27.6 Finger Stick Blood Glucose 336 Intake and Output for Last 24 Hours 08/18/18 08/19/18 08/20/18 23:59 23:59 23:59 Intake Total 2371 / 2371 600 / 600 Balance 2371 / 2371 600 / 600 General: Alert, Oriented x3, Cooperative HEENT: Atraumatic, PERRLA, EOMI, Normocephalic Neck: Supple, No JVD, Negative Carotid Bruits Lungs: Clear to auscultation, Normal air movement Cardiovascular: Regular rate, Normal S1, Normal S2, No murmurs Abdomen: Bowel Sounds Present, Soft, Non Tender, - - Mild ascites Extremities: Capillary Refill Less than 3 Seconds, Edema Skin: No rashes, No breakdown Musculoskeletal: No Tenderness to Palpation of Joints or Extremities, Arthritic Changes, Muscle Wasting Neurological: Cranial nerves II-XII grossly intact, Neuro grossly intact Psych/Mental Status: Normal Affect, Appropriate Microbiology Past 72 Hours 08/19/18 13:45 Urine, Clean Catch Urine Culture - Preliminary Mixed Gram Pos & Gram Neg Org Laboratory Results 08/19/18 05:33: POC Glucose 431 H 08/19/18 17:02: POC Glucose 335 H 08/19/18 21:24: POC Glucose 224 H 08/20/18 05:40: Sodium 142, Potassium 3.8, Chloride 109 H, Carbon Dioxide 24.0, Anion Gap 9, BUN 6 L, Creatinine 0.68, Estim Creat Clear Calc 104.59, Est GFR (MDRD) Af Amer 117, Est GFR (MDRD) Non-Af 97, BUN/Creatinine Ratio 8.8 L, Glucose 187 H, Calcium 8.5, GGT 479 H 08/20/18 05:40: WBC 2.8 L, RBC 3.94 L, Hgb 11.0 L, Hct 32.5 L, MCV 82.5, MCH 27.9, MCHC 33.8, RDW 15.0 H, RDW Differential 43.5, Plt Count 91 L, MPV 12.1 H, Immature Gran % (Auto) 0.400, Neut % (Auto) 56.2, Lymph % (Auto) 26.5, [place] % (Auto) 10.8 H, Eos % (Auto) 4.3, Baso % (Auto) 1.8 H, Absolute Neuts (auto) 1.6 L, Absolute Lymphs (auto) 0.74 L, Total Counted Not Reportable 08/20/18 05:40: Hemoglobin A1c 11.3 H 08/20/18 05:40: Total Bilirubin 1.00, Direct Bilirubin 0.63 H, AST 97 H, ALT 63 H, Alkaline Phosphatase 254 H, Total Protein 7.1, Albumin 2.7 L, Globulin 4.4 H 08/20/18 08:21: POC Glucose 254 H 08/20/18 12:01: POC Glucose 500 H* 08/20/18 12:20: Glucose 459 H* 08/20/18 14:21: POC Glucose 366 H 08/20/18 16:07: POC Glucose 191 H Current Medications Al Hydroxide/Mg Hydroxide (Mylanta Ii) 30 ml PO Q6H PRN PRN PRN Reason: Gastric burning Albuterol Sulfate (Ventolin Aerosols) 2.5 mg INHALATION Q4H PRN PRN Reason: SOB/WHEEZING Dextrose (D50w Syringe) 0 gm IV X1 PRN; Protocol PRN Reason: Hypoglycemia Dicyclomine HCl (Bentyl) 10 mg PO TID PRN PRN PRN Reason: Cramp Last Admin: 08/19/18 12:53 Dose: 10 mg Fluticasone Propionate (Flonase Nasal [place]) 1 spray NASAL BID PRN PRN Reason: ALLERGIES Fluvoxamine Maleate (Luvox) 25 mg PO QHS YONI Last Admin: 08/19/18 21:27 Dose: 25 mg Furosemide (Lasix) 40 mg PO DAILY YONI Last Admin: 08/20/18 10:58 Dose: 40 mg Glucagon () 1 mg IM .X1 PRN PRN Reason: Hypoglycemia Insulin Glargine (Lantus (Bkc)) 25 units SC BID [facility] Insulin Human Lispro (Humalog Kwikpen (Bkc)) 0 unit SQ ACHS [facility]; Protocol Last Admin: 08/20/18 12:20 Dose: Not Given Insulin Human Lispro (Humalog Kwikpen (Bkc)) 20 unit SC ACHS [facility] Lactulose (Chronulac, Cephulac) 20 gm PO BID [facility] Magnesium Oxide (Mag-Ox 400) 400 mg PO BID [facility] Last Admin: 08/20/18 10:58 Dose: 400 mg Metoclopramide HCl (Reglan) 10 mg PO BID PRN PRN Reason: NAUSEA Pantoprazole Sodium (Protonix) 40 mg PO DAILY [facility] Last Admin: 08/20/18 10:59 Dose: 40 mg [facility] Last Admin: 08/20/18 10:57 Dose: 20 meq Promethazine HCl (Phenergan) 12.5 mg IV Q6H PRN PRN PRN Reason: NAUSEA/VOMITING Last Admin: 08/20/18 06:02 Dose: 12.5 mg Rifaximin (Xifaxan) 550 mg PO BID [facility] Last Admin: 08/20/18 10:59 Dose: 550 mg Senna/Docusate Sodium (Senokot-S, Vy-Colace) 1 tablet PO BID [facility] Last Admin: 08/20/18 10:59 Dose: 1 tablet Spironolactone (Aldactone) 200 mg PO DAILY [facility] Last Admin: 08/20/18 10:58 Dose: 200 mg Tramadol HCl (Ultram) 50 mg PO Q6H PRN PRN PRN Reason: PAIN Last Admin: 08/20/18 14:33 Dose: 50 mg Ursodiol (Anthony) 250 mg PO BID [facility] Last Admin: 08/20/18 10:59 Dose: 250 mg Medical Necessity - Tobacco Use Smoking Status: Never smoker Assessment/Plan All Active Problems Hepatic encephalopathy (Acute) Chest pain (Acute) The patient is a 47 year old F with history of autoimmune related cirrhosis decompensated with esophageal varices, ascites, hypersplenism with thrombocytopenia and coagulopathy status post TIPS came to ER with confusion, disorientation, increased forgetfulness for about 2-3 weeks. The patient blood sugar was also high and she was admitted in [facility] on 08/14. She was discharged from there after control of sugar but told that she did not had ammonia level or proper address of hepatic encephalopathy. She denies fever, URI symptoms or flulike symptoms, lower urinary tract symptoms but had chills. She also had constipation and currently taking lactulose 30 mL twice daily. In ED, vital signs were unremarkable. Basic labs was significant of pancytopenia. K3.4, bicarb 27, anion gap 9 and glucose 458. Ammonia 101. LFT shows elevated transaminases and alkaline phosphatase. Lipase normal. Acetone level negative. Chest x-ray does not show acute cardiopulmonary disease. CT head no acute intracranial pathology. 1. Acute encephalopathy most probably secondary to hepatic encephalopathy without coma associated with metabolic encephalopathy: Patient is being admitted to regular MedSurg floor. IV fluid normal saline. Lactulose 30 mL twice daily to titrate to achieve goal of about 3 bowel movements per day. Xifaxan 550 mg twice daily. UA is negative of pyuria or hematuria, LE and nitrite negative. Urine culture shows mixed gram-positive organism. UTI ruled out. If patient spikes fever, blood culture x2. I think, hepatic encephalopathy probably got ten worse and after TIPS which she had about a year ago 2. 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 Nabil Conroy in [facility]. GGT ordered. Patient had cholecystectomy and had one episode of pancreatitis more than 10 years ago. Continue ursodiol and other home medications. 3. Diabetes mellitus type 2 with hyperglycemia: Blood sugar needs to be controlled on Accu-Chek before meals and at bedtime cover with NovoLog sliding scale and Lantus insulin. Lantus and NovoLog scheduled and sliding scale increased. 4. Other autoimmune disease, Reilly's thyroiditis. 5. Psychiatric conditions, schizoaffective disorder, bipolar disorder: Home medication reconciliation done. DVT prophylaxis: Pharmacological prophylaxis contraindicated in view of coagulopathy and thrombocytopenia. Bilateral SCDs. this note was generated with Axial[employer] software. Every effort was made to ensure accuracy, however computerized women's studies professor mistakes may persist. Microbiology Past 72 Hours 08/19/18 13:45 Urine, Clean Catch Urine Culture - Preliminary Mixed Gram Pos & Gram Neg Org Laboratory Results 08/19/18 05:33: POC Glucose 431 H 10/02/18 17:02: POC Glucose 335 H 08/19/18 21:24: POC Glucose 224 H 08/20/18 05:40: Sodium 142, Potassium 3.8, Chloride 109 H, Carbon Dioxide 24.0, Anion Gap 9, BUN 6 L, Creatinine 0.68, Estim Creat Clear Calc 104.59, Est GFR (MDRD) Af Amer 117, Est GFR (MDRD) Non-Af 97, BUN/Creatinine Ratio 8.8 L, Glucose 187 H, Calcium 8.5, GGT 479 H 08/20/18 05:40: WBC 2.8 L, RBC 3.94 L, Hgb 11.0 L, Hct 32.5 L, MCV 82.5, MCH 27.9, MCHC 33.8, RDW 15.0 H, RDW Differential 43.5, Plt Count 91 L, MPV 12.1 H, Immature Gran % (Auto) 0.400, Neut % (Auto) 56.2, Lymph % (Auto) 26.5, [place] % (Auto) 10.8 H, Eos % (Auto) 4.3, Baso % (Auto) 1.8 H, Absolute Neuts (auto) 1.6 L, Absolute Lymphs (auto) 0.74 L, Total Counted Not Reportable 08/20/18 05:40: Hemoglobin A1c 11.3 H 08/20/18 05:40: Total Bilirubin 1.00, Direct Bilirubin 0.63 H, AST 97 H, ALT 63 H, Alkaline Phosphatase 254 H, Total Protein 7.1, Albumin 2.7 L, Globulin 4.4 H 08/20/18 08:21: POC Glucose 254 H 08/20/18 12:01: POC Glucose 500 H* 08/20/18 12:20: Glucose 459 H* 08/20/18 14:21: POC Glucose 366 H 08/20/18 16:07: POC Glucose 191 H Code Visit Inpatient E&M: 47291 Subs Hosp L3
[2018-08-20] MEDS: Insulin Lispro 100 UNIT/ML INSULN.PEN 20 UNIT SC (19:02)
--- NOTE | 2018-08-20 19:20 | PCM.DC.SUM ---
Discharge Date and Diagnosis Date of Admission: 08/19/18 Date of Discharge: 08/20/18 - Primary Discharge Diagnosis Acute encephalopathy most probably secondary to hepatic encephalopathy without coma with decompensated cirrhosis associated with metabolic encephalopathy Diabetes mellitus type 2, with uncontrolled hyperglycemia - Secondary Discharge Diagnosis Chronic Problems Diabetes mellitus (Chronic) Liver cirrhosis (Chronic) Reilly thyroiditis (Chronic) Autoimmune hepatitis (Chronic) Schizoaffective disorder (Chronic) Bipolar disorder (Chronic) Splenomegaly (Chronic) Hospital Course and Treatment Operations: None Summary of Care Provided: [] The patient is a 47 year old F with history of autoimmune related cirrhosis decompensated with esophageal varices, ascites, hypersplenism with thrombocytopenia and coagulopathy status post TIPS came to ER with confusion, disorientation, increased forgetfulness for about 2-3 weeks. The patient blood sugar was also high and she was admitted in [facility] on 08/14. She was discharged from there after control of sugar but told that she did not had ammonia level or proper address of hepatic encephalopathy. She denies fever, URI symptoms or flulike symptoms, lower urinary tract symptoms but had chills. She also had constipation and currently taking lactulose 30 mL twice daily. In ED, vital signs were unremarkable. Basic labs was significant of pancytopenia. K3.4, bicarb 27, anion gap 9 and glucose 458. Ammonia 101. LFT shows elevated transaminases and alkaline phosphatase. Lipase normal. Acetone level negative. Chest x-ray does not show acute cardiopulmonary disease. CT head no acute intracranial pathology. The patient was seen and examined on the day of discharge. Please see progress note of the same date of 08/20/2018. 1. Acute encephalopathy most probably secondary to hepatic encephalopathy without coma associated with metabolic encephalopathy: Patient is being admitted to regular MedSurg floor. IV fluid normal saline. Lactulose 30 mL twice daily to titrate to achieve goal of about 3 bowel movements per day. Xifaxan 550 mg twice daily. UA is negative of pyuria or hematuria, LE and nitrite negative. Urine culture shows mixed gram-positive organism. UTI ruled out. If patient spikes fever, blood culture x2. I think, hepatic encephalopathy probably gotten worse and after TIPS which she had about a year ago 2. 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 Nabil Conroy in [facility]. GGT ordered. Patient had cholecystectomy and had one episode of pancreatitis more than 10 years ago. Continue ursodiol and other home medications. 3. Diabetes mellitus type 2 with hyperglycemia: Blood sugar needs to be controlled on Accu-Chek before meals and at bedtime cover with NovoLog sliding scale and Lantus insulin. Lantus and NovoLog scheduled and sliding scale increased. Patient blood sugar was controlled to 190 mg percent. Patient was discharged on the increased dose of lispro insulin and Lantus insulin 20 units subcu twice daily. 4. Other autoimmune disease, Reilly's thyroiditis. 5. Psychiatric conditions, schizoaffective disorder, bipolar disorder: Home medication reconciliation done. DVT prophylaxis: Pharmacological prophylaxis contraindicated in view of coagulopathy and thrombocytopenia. Bilateral SCDs. Discharge medication reconciliation done. Discharge follow-up instructions given. Follow-up the [facility] collision mechanic, Dr Nabil Calles to adjust diuretics and her psychiatrist to adjust antipsychotic medications. I think part of the problem of encephalopathy related to medication/polypharmacy review of hepatic encephalopathy. Total time spent, exact 35 minutes on discharge meds reconciliation, examination, review of imaging and blood test and discussion with the patient on follow-up instructions. this note was generated with [employer] dictation software. Every effort was made to ensure accuracy, however computerized welder gas tungsten arc mistakes may persist. Discharge Activity: May Not Drive Call your doctor if you observe: Fever of 101 or Higher, Shortness of breath, Swelling in the ankles, Chest pain Home Medications: Medications to take at Discharge Potassium Chloride [Klor-Con M20] 20 meq PO BID 09/25/15 Albuterol Inhaler [Ventolin Hfa] 2 puff INHALATION Q4H PRN PRN 02/16/16 Furosemide [Lasix] 80 mg PO DAILY 03/14/17 Insulin Lispro [Humalog] 12 units SC ACHS 03/14/17 Magnesium Oxide [Magnesium] 400 mg PO BID 03/14/17 Ondansetron [Zofran Odt] 4 mg PO BID PRN 03/14/17 Metoclopramide [Reglan] 10 mg PO BID PRN 04/28/17 Spironolactone [Aldactone] 200 mg PO DAILY 04/28/17 traMADol [Ultram] 50 mg PO Q6H PRN PRN 04/28/17 Sennosides/Docusate Sodium [Senna Plus Tablet] 1 each PO DAILY PRN 04/29/17 Fluvoxamine Maleate [Luvox] 25 mg PO QHS 11/04/17 Rifaximin [Xifaxan] 550 mg PO BID 11/04/17 Ursodiol [Actigall] 300 mg PO BID 11/04/17 Insulin Glargine,Hum.rec.anlog [Lantus] 20 unit SQ BID 11/26/17 Carbamazepine [Carbatrol] 300 mg PO BID 08/19/18 Cholecalciferol (Vitamin D3) [Vitamin D3] 50,000 unit PO QWEEK 08/19/18 Clobetasol Propionate [Temovate Ointment] 1 applic TOPICAL QHS 08/19/18 Dicyclomine HCl [Bentyl] 20 mg PO ACHS 08/19/18 Fluticasone Propionate [Flonase Allergy Relief] 15.8 ml NS BID PRN 08/19/18 Pregabalin [Lyrica] 25 mg PO BID 08/19/18 Sucralfate [Carafate] 1 gm PO ACHS 08/19/18 Baclofen 5 mg PO QHS #0 08/20/18 Lactulose [Chronulac] 30 gm PO BID #1 udc 08/20/18 Omeprazole [Prilosec] 40 mg PO DAILY #0 08/20/18 Following Prescrptions Were Given to Patient: Lactulose [Chronulac] 30 gm PO BID #1 udc Primary Care Physician: Janay Canchola MD [Primary Care Provider] - Please follow up with your Primary Care Physician in: in 1-2 weeks Medical Necessity - Tobacco Use Smoking Status: Never smoker Meaningful Use Info Meaningful Use Diagnoses (Choose all that apply): None applicable Code Visit Inpatient E&M: 86342 Disch Hosp
== END 2018-08-20 19:17 | disposition home or self-care (01) ==
LOC: ED 05:45 → MS3 07:55
PROVIDERS: Admitting Provider Internal Medicine; Emergency Provider Emergency Medicine; Family Provider Internal Medicine; PCP Internal Medicine; Referring Provider Internal Medicine; Visit Provider Internal Medicine
DX: E11.65 Type 2 diabetes mellitus with hyperglycemia (principal); K72.90 Hepatic failure, unspecified without coma; E06.3 Autoimmune thyroiditis; Z79.4 Long term (current) use of insulin; Z79.899 Other long term (current) drug therapy; K74.60 Unspecified cirrhosis of liver; K75.4 Autoimmune hepatitis; F25.0 Schizoaffective disorder, bipolar type; D68.9 Coagulation defect, unspecified; D69.6 Thrombocytopenia, unspecified; D61.818 Other pancytopenia
CPT/HCPCS: 36415; 70450; 71046; 80048; 80053; 80076; 81001; 82009; 82140; 82248; 82947; 82962; 82977; 83036; 83690; 83735; 84100; 85025; 87086; 87088; 93005; 96361; 96365; 96375; 96376; 99218; 99282; J7030; A4216; G0378

== ENCOUNTER 2019-01-09 07:03 | Observation (INO) | payer MEDICAID, SELFPAY ==
[2019-01-09] VITALS (11 sets, daily range): BP systolic 105–159; BP diastolic 49–82; PULSE 79–102; RESP 14–18; TEMP 36.4–36.9; O2SAT 95–100; BMI 27.8; BMI 26.2; BMI 26.3
[2019-01-09 07:10] LABS: Bedside Glucose 128 mg/dL (70-110)
--- NOTE | 2019-01-09 07:33 | ED.VIS.GEN ---
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 Onset: Today Context: Sudden Onset Timing: Continuous Quality: Slow psychomotor skills, confusion, fragmented thought process Location: Home, daughter apparently called EMS Current Severity: Moderate Maximum Severity: Moderate Worsened by: Unknown Relieved by: Unknown Associated Symptoms: Unknown Narrative: Patient arrived by ambulance for altered mental status. Blood sugar was 30 in the field. She was administered 1 amp of D50. Blood sugar is presently 175. She still remains drowsy with altered thought content and processing. She cannot give me an adequate history. Review of prior records indicates she has history of type 1 diabetes and recently with the assistance of the pharmacist that [facility] restart her meds. She is on insulin. Per old records was a history of Reilly's thyroiditis, autoimmune hepatitis, hepatic encephalopathy, GERD, schizoaffective disorder and allergic rhinitis. Patient endorses dry mouth and thirst. She states her tongue feels like cotton. She is unable to give much more history. Prior similar symptoms: Yes Recent Illness/Hospitalization: No Past Medical History - Allergies and Home Meds Allergies/Adverse Reactions: Allergies adhesive Allergy (Verified 01/09/19 07:10) Rash escitalopram oxalate [From Lexapro] Allergy (Verified 01/09/19 07:10) blindness gabapentin [From Neurontin] Allergy (Verified 01/09/19 07:10) Alan Jez's Syndrome lamotrigine [From Lamictal] Allergy (Verified 01/09/19 07:10) Blindness Preservatives Allergy (Uncoded 01/09/19 07:10) passed out, lungs deflated Preservatives in various foods including packaged gladys cheese, lettuce, and seafood. sour cream Allergy (Uncoded 01/09/19 07:10) Anaphylaxis Primary Care Physician: Janay Canchola MD [Primary Care Provider] - Past Medical History: - - Type 1 diabetes, Reilly's thyroiditis, autoimmune hepatitis, hepatic encephalopathy, GERD and allergic rhinitis. She also has history of schizoaffective disorder. Surgical History: - - Appendectomy, cholecystectomy, partial hysterectomy. Lives: With Family Smoking Status: Never smoker Drugs: - - Unknown with regards to alcohol use or drug use. - Family History Paternal Family History: Reports: - - father with heart attacks and strokes Maternal Family History: Reports: No pertinent history Review of Systems ROS: Unable to Obtain Physical Exam Vital Signs/Narrative: Vital Signs Temp Pulse Resp BP Pulse Ox 01/09/19 07:03 97.6 F L 81 16 133/57 H 95 Inital Vital Signs reviewed: Yes General: Well nourished, Well developed, Unkempt, No Acute Distress Head: Normocephalic, Atraumatic Eyes: Perrl, EOMI. Negative for: Pale conjunctiva, Scleral icterus ENT: No rhinorrhea, TM's clear, Dry mucous membranes. Negative for: Nasal congestion, Sinus tenderness Neck: Supple, Nontender, No lymphadenopathy, No JVD Cardiovascular: Regular rate, Regular rhythm, No murmurs, Normal S1, Normal S2 Respiratory: No distress, CTA bilaterally, Chest nontender. Negative for: Rales, Rhonchi, Wheezing Abdomen: Soft, Nontender, Nondistended, Normal bowel sounds, Splenomegaly. Negative for: Hepatomegaly Rectal: Deferred Back: Nontender Extremities: Nontender, No edema Skin: Normal color, No rash. Negative for: Cyanosis, Jaundice Neurological: Cranial nerves II-XII grossly intact, Normal Sensation, Normal DTR, - - Patient noted to have shuffling gait that she walked from her room to the restroom. Thought process is tangential and disorganized.. Negative for: Alert, Oriented x3, Normal Strength Psychological: Depressed Diagnostic/Tx/Re-eval CBC is remarkable for a white count of 4.2 thousand with normal differential. Basic metabolic panel is remarkable for a CO2 of 20 with a normal anion gap and potassium of 2.2. Glucose is 115. Hepatic is marked for total bili of 2.20 and AST and ALT of 70 and 67 respectively. ABG is remarkable for a base excess of -4. PH 7.41, PCO2 32.6, PaO2 108, base excess -4, bicarb 20.5 and O2 saturation 98% on room air. UA is negative. Magnesium is 1.3. Ammonia is slightly elevated at 55. - Rhythm Strip Rhythm Strip: Sinus Rhythm Rate: 77 Ectopy: None - Medical Decision Making Patient was placed on D5 half-normal for hypoglycemia. She recently resumed insulin from what I was able to obtain from the paramedics. The report has not been completed for my review at the time of this note, [id number]. With history of hepatic encephalopathy and autoimmune hepatitis will obtain hepatic profile as well as ammonia level. Also obtain UA to evaluate for infectious cause of her altered mental status since her blood sugar is now 175 and she still has altered thought content and is not alert. This also may represent exacerbation of her schizoaffective disorder since she is not been compliant with her medications. Since neuro exam is nonfocal and patient does not have visual hallucinations CT of the head was not ordered. Since patient has altered mental status will administer IV potassium versus p.o. Since patient is more responsive will administer lactulose p.o. Since she has hypomagnesemia will correct. We will need to correct in order to correct the hypokalemia. Hospitalist has been paged for admission. ED Disposition - Plan for ED Patient: Disposition: Acute Care Hospital [facility] Diagnosis: Hypoglycemia due to insulin, Acute hypokalemia, Hypomagnesemia, Autoimmune hepatitis, Encephalopathy acute Referrals: Janay Canchola MD [Primary Care Provider] -
[2019-01-09 07:40] LABS: Absolute Lymphocyte Count 0.83 X10^3/ul (0.83-4.51); Absolute Neutrophil Count 2.9 X10^3/uL (2.0-7.7); Basophil# 0.04 X10^3/uL; Eosinophil# 0.08 X10^3/uL; Eosinophils% 1.9 % (0-5); Hematocrit 37.8 % (37-47); Hemoglobin 12.7 g/dl (12.0-15.0); Lymphocyte # 0.83 X10^3/ul (4.0); Lymphocyte % 19.8 % (19-41); Mean Corp Hgb Conc 33.6 g/gl (32-36); Mean Corpuscular Hgb 28.7 pg (27.0-32.0); Mean Corpuscular Volume 85.3 fL (81-99); Mean Platelet Vol. 10.1 fl (6.2-12.0); Monocyte# 0.35 X10^3/uL; Monocyte% 8.4 % (0-10); Neutrophil # 2.88 X10^3/uL (2.7-7.7); Neutrophil % 68.7 % (47-70); Platelet Count 120 K/mm3 (150-450); RBC Distribution Width CV 15.2 % (11.6-14.6); Red Blood Count 4.43 M/mm3 (4.2-5.4); White Blood Count 4.2 K/mm3 (4.4-11.0)
[2019-01-09 07:43] LABS: POSITIVE COUNT NO; POSITIVE DIFFERENTIAL NO; POSITIVE MORPHOLOGY NO
[2019-01-09 07:50] LABS: Bacteria 0 SEEN /hpf (None Seen); Mucous, Urine 0 SEEN /hpf (<or=2+); Red Blood Cells-Urine 0 SEEN /hpf (0-5); White Blood Cells 0 SEEN /hpf (0-5)
[2019-01-09] MEDS: Dext 5%-0.45% NS 1,000 ML 125 ML IV (07:53)
[2019-01-09 07:54] LABS: ALB/GLOB Ratio 0.7 RATIO (0.9-2.4); AST(SGOT) 70 U/L (15-37); Alanine Aminotransfer ALT/SGPT 67 U/L (13-56); Albumin, Serum 3.1 g/dL (3.2-5.0); Alkaline Phosphatase 266 U/L (45-117); Anion Gap 10 (5-15); BUN 8 mg/dL (7-18); BUN/Creat Ratio 9.4 RATIO (10-20); Bilirubin, Direct 0.99 mg/dL (0.00-0.30); Calcium,Total 8.3 mg/dL (8.5-10.1); Chloride 110 mmol/L (98-107); Creatinine, Serum 0.85 mg/dL (0.55-1.02); EST Glomerular Filtration Rate 75 mL/min (>60); Est Glom Filt Rate - Afr Amer 91 mL/min (>60); Estimated Creatinine Clearance 82.75 ml/min; Globulin 4.2 g/dL (2.2-4.2); Glucose 115 mg/dL (74-106); Potassium 2.2 mmol/L (3.5-5.1); Protein, Total 7.3 g/dL (6.4-8.2); Sodium Level 140 mmol/L (136-145)
--- NOTE | 2019-01-09 07:54 | ED.RN ---
lab resulted potassium 2.2, PHYSICIAN NOTIFIED
[2019-01-09 07:56] LABS: Color, Urine Yellow (Yellow); Glucose, Dipstick Normal (Normal); Ketone-Dipstick Negative (Negative); Leukocyte Esterase-Dipstick Negative /ul (Negative); Nitrite-Dipstick Negative (Negative); Occult Blood-Urine Negative /ul (Negative); Protein-Dipstick Negative (Negative); Urine Bilirubin Dipstick Negative (Negative); Urine Clarity Clear (Clear); Urine Urobilinogen Normal (Normal)
[2019-01-09 08:01] LABS: Allen Test POS; Base Excess -4 mmol/L (-2 to +2); Bicarbonate 20.5 mmol/L (22-26); Blood Gas Specimen Type ART; O2 Delivery Device Room Air; PO2 108 mmHG (75-100); SITE L Radial; SO2 98 % (95-99); Time Given 752; Total Carbon Dioxide 21 mmol/L; pCO2 32.6 mmHg (35-45); pH 7.41 (7.35-7.45)
[2019-01-09 08:02] LABS: Squamous Epithelial Cells - UA 0-5 SEEN /hpf (5-10)
[2019-01-09] MEDS: Potassium Chloride 10mEq/100mL 10 MEQ/100 ML IV.SOLN. 100 MEQ IV BOLUS ×2 (08:11→09:36)
[2019-01-09 08:19] LABS: Magnesium 1.3 mg/dL (1.6-2.6)
[2019-01-09] MEDS: Magnesium Sulfate 2 GM in Syringe 1 EACH IV (08:42)
--- NOTE | 2019-01-09 08:43 | ED.RN ---
MAGNESIUM WAS DILUTED INSTRUCTED AND GIVEN AT THE BEDSIDE OVER 10 MINUTES.
--- NOTE | 2019-01-09 08:48 | HP.PCM_ITS ---
Problem List (1) Hepatic encephalopathy Status: Acute (2) Hypoglycemia due to insulin Status: Acute (3) Acute hypokalemia Status: Acute (4) Hypomagnesemia Status: Acute (5) Autoimmune hepatitis Status: Chronic (6) Diabetes mellitus Status: Chronic Qualifiers: Diabetes mellitus type: type 2 Diabetes mellitus retirement insulin use: with retirement use Diabetes mellitus complication status: with neurologic complications Diabetes mellitus complication detail: with unspecified neuropathy Qualified Code(s): E11.40 - Type 2 diabetes mellitus with diabetic neuropathy, unspecified; Z79.4 - USP (current) use of insulin (7) Liver cirrhosis Status: Chronic (8) Reilly thyroiditis Status: Chronic (9) Autoimmune hepatitis Status: Chronic (10) Schizoaffective disorder Status: Chronic Qualifiers: Schizoaffective disorder type: depressive Qualified Code(s): F25.1 - Schizoaffective disorder, depressive type History of Present Illness Date of Admission: 01/09/19 Chief Complaint: Altered mental status - today The patient is a 48 year old F with past medical history of type 2 diabetes, on insulin, 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 She was advised to take her insulin at at least 3 times a week. She decided to start it today. She found out that she was confused, not able to walk well. EMS were called. Blood sugar was 30, she was administered 1 amp of D50. Blood sugar on arrival to the ED was 175. Patient remained drowsy with altered mental status. Admitting ammonia was 55. Her vitals show temperature of 90 7.6F, heart rate of 81, blood pressure 133/57, respiratory rate of 16, SPO2 95%. Admitting WBC count is 4.2, hemoglobin is 12.7, platelet count is 120. Sodium is 140, potassium 3.2, chloride 110, bicarbonate is 20, BUN is 8, creatinine 0.85, magnesium is 1.3, AST 70, ALT 67, ALP is 266, ammonia is 55 Past Medical History Past Medical History (Chronic Problems): Chronic Problems Autoimmune hepatitis (Chronic) Diabetes mellitus (Chronic) Liver cirrhosis (Chronic) Reilly thyroiditis (Chronic) Autoimmune hepatitis (Chronic) Schizoaffective disorder (Chronic) Bipolar disorder (Chronic) Splenomegaly (Chronic) Allergies adhesive Allergy (Verified 01/09/19 07:10) Rash escitalopram oxalate [From Lexapro] Allergy (Verified 01/09/19 07:10) blindness gabapentin [From Neurontin] Allergy (Verified 01/09/19 07:10) Alan Jez's Syndrome lamotrigine [From Lamictal] Allergy (Verified 01/09/19 07:10) Blindness Preservatives Allergy (Uncoded 01/09/19 07:10) passed out, lungs deflated Preservatives in various foods including packaged gladys cheese, lettuce, and seafood. sour cream Allergy (Uncoded 01/09/19 07:10) Anaphylaxis Home Medications: Ambulatory Orders Medication Instructions Recorded Potassium Chloride [Klor-Con M20] 20 meq PO BID 09/25/15 Albuterol Inhaler [Ventolin Hfa] 2 puff INHALATION Q4H PRN PRN 02/16/16 Furosemide [Lasix] 80 mg PO DAILY 03/14/17 Insulin Lispro [Humalog] 12 units SC ACHS 03/14/17 Magnesium Oxide [Magnesium] 400 mg PO BID 03/14/17 Spironolactone [Aldactone] 200 mg PO DAILY 04/28/17 traMADol [Ultram] 50 mg PO Q6H PRN PRN 04/28/17 Sennosides/Docusate Sodium [Senna 1 each PO DAILY PRN 04/29/17 Plus Tablet] Fluvoxamine Maleate [Luvox] 100 mg PO QHS 11/04/17 Rifaximin [Xifaxan] 550 mg PO BID 11/04/17 Ursodiol [Actigall] 300 mg PO BID 11/04/17 Carbamazepine [Carbatrol] 100 mg PO BID 08/19/18 Cholecalciferol (Vitamin D3) 50,000 unit PO QWEEK 08/19/18 [Vitamin D3] Dicyclomine HCl [Bentyl] 10 mg PO ACHS 08/19/18 Fluticasone Propionate [Flonase 15.8 ml NS BID PRN 08/19/18 Allergy Relief] Sucralfate [Carafate] 1 gm PO ACHS 08/19/18 Omeprazole [Prilosec] 40 mg PO DAILY #0 08/20/18 Baclofen 10 mg PO QHS 01/09/19 Insulin Degludec [Tresiba 40 unit SQ DAILY 01/09/19 Flextouch U-100] Lactulose [Chronulac] 20 gm PO TID 01/09/19 Surgical History: - - Appendectomy, cholecystectomy, partial hysterectomy. 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 - *Family History Paternal History Items: - - father with heart attacks and strokes Maternal History Items: No pertinent history Sibling History Items: Hypertension Review of Systems Constitutional: Reports: Weakness. Denies: Anorexia, Chills, Fever, Night Sweats, Malaise, Weight Change Eyes: Denies: Blurred vision, Cataracts, Conjunctivae Inflammation HEENT: Denies: Head Aches, Hearing Changes, Nasal bleeding, Sinus Congestion, Sinus Drainage Cardiovascular: Denies: Chest Pain, Claudication, Chest Pressure, Orthopnea, Palpitations Respiratory: Denies: Cough, Hemoptysis, Shortness of breath at rest, Shortness of breath upon exertion, Sputum production, Wheezing Gastrointestinal: Denies: Abdominal Pain, Constipation, Hematemesis, Hematochezia, Nausea, Vomiting Genitourinary: Denies: Dysuria Gynecological: Denies: Breast symptoms Musculoskeletal: Denies: Joint Pain, Joint stiffness, Joint swelling, Joint Tenderness Skin: Denies: Rash, Wounds Neurological: Denies: Numbness, Tingling, Focal weakness Psychiatric: Denies: Anxiety, Depression, Homicidal Ideations, Suicidal Ideations Hematologic/ Lymphatic: Denies: Easy Bruising, Easy Bleeding VTE Information - Inpt Only VTE Present on Admission: No VTE Pharm Prophylaxis ordered?: Yes Patient Problems: Active and Suspected Problems Hypoglycemia due to insulin (Acute) Acute hypokalemia (Acute) Hypomagnesemia (Acute) Encephalopathy acute (Acute) - Physical Exam General: Alert, Oriented x3, Cooperative, No apparent distress HEENT: Atraumatic, PERRLA, EOMI, Normocephalic Oral: Moist Mucosa Neck: Supple Lungs: Clear to auscultation, Normal air movement Cardiovascular: Regular rate, Regular Rhythm, Normal S1, Normal S2, No murmurs Abdomen: Bowel Sounds Present, Soft, Non Tender, No Hepato-splenomegaly, Distended Extremities: No edema Skin: No rashes, No breakdown Musculoskeletal: No Tenderness to Palpation of Joints or Extremities Lymphatic: No Cervical, Supraclavicular, or Inguinal Adenopathy Neurological: Cranial nerves II-XII grossly intact, Neuro grossly intact Psych/Mental Status: Normal Affect, Appropriate Vital Signs Temp Pulse Resp BP Pulse Ox 97.6 F L 79 17 105/49 L 96 01/09/19 07:03 01/09/19 08:45 01/09/19 08:45 01/09/19 08:45 01/09/19 08:45 Oxygen Delivery Method Room Air Weight: 85.7 kg Body Mass Index (BMI) 27.8 Finger Stick Blood Glucose 128 Laboratory Tests Past 24 Hrs 01/09/19 01/09/19 01/09/19 07:10 07:10 07:10 WBC 4.2 L RBC 4.43 Hgb 12.7 Hct 37.8 MCV 85.3 MCH 28.7 MCHC 33.6 RDW 15.2 H RDW Differential 47.0 H Plt Count 120 L MPV 10.1 Immature Gran % (Auto) 0.200 Neut % (Auto) 68.7 Lymph % (Auto) 19.8 [place] % (Auto) 8.4 Eos % (Auto) 1.9 Baso % (Auto) 1.0 Absolute Neuts (auto) 2.9 Absolute Lymphs (auto) 0.83 Total Counted Not Reportable Specimen Type Sample Site pH Bicarbonate Actual POC Total CO2 Base Excess O2 Saturation ABG pCO2 ABG pO2 Daniel Test O2 Delivery Device Blood Gas Notified Whom Blood Gas Notified Time Sodium 140 Potassium 2.2 L* Chloride 110 H Carbon Dioxide 20.0 L Anion Gap 10 BUN 8 Creatinine 0.85 Estim Creat Clear Calc 82.75 Est GFR (MDRD) Af Amer 91 Est GFR (MDRD) Non-Af 75 BUN/Creatinine Ratio 9.4 L Glucose 115 H Calcium 8.3 L Magnesium 1.3 L Total Bilirubin 2.20 H Direct Bilirubin 0.99 H AST 70 H ALT 67 H Alkaline Phosphatase 266 H Ammonia Total Protein 7.3 Albumin 3.1 L Globulin 4.2 Albumin/Globulin Ratio 0.7 L Urine Color Urine Clarity Urine pH Ur Specific [place] Urine Protein Urine Glucose (UA) Urine Ketones Urine Occult Blood Urine Nitrite Urine Bilirubin Urine Urobilinogen Ur Leukocyte Esterase Urine RBC Urine WBC Ur Squamous Epith Cells Urine Bacteria Urine Mucus 01/09/19 01/09/19 01/09/19 07:45 07:54 07:55 WBC RBC Hgb Hct MCV MCH MCHC RDW RDW Differential Plt Count MPV Immature Gran % (Auto) Neut % (Auto) Lymph % (Auto) [place] % (Auto) Eos % (Auto) Baso % (Auto) Absolute Neuts (auto) Absolute Lymphs (auto) Total Counted Specimen Type ART Sample Site L Radial pH 7.41 Bicarbonate Actual 20.5 L POC Total CO2 21 Base Excess -4 L O2 Saturation 98 ABG pCO2 32.6 L ABG pO2 108 H Daniel Test POS O2 Delivery Device Room Air Blood Gas Notified Whom ED Blood Gas Notified Time 752 Sodium Potassium Chloride Carbon Dioxide Anion Gap BUN Creatinine Estim Creat Clear Calc Est GFR (MDRD) Af Amer Est GFR (MDRD) Non-Af BUN/Creatinine Ratio Glucose Calcium Magnesium Total Bilirubin Direct Bilirubin AST ALT Alkaline Phosphatase Ammonia 55.0 H Total Protein Albumin Globulin Albumin/Globulin Ratio Urine Color Yellow Urine Clarity Clear Urine pH 6.0 Ur Specific [place] 1.010 Urine Protein Negative Urine Glucose (UA) Normal Urine Ketones Negative Urine Occult Blood Negative Urine Nitrite Negative Urine Bilirubin Negative Urine Urobilinogen Normal Ur Leukocyte Esterase Negative Urine RBC 0 SEEN Urine WBC 0 SEEN Ur Squamous Epith Cells 0-5 SEEN Urine Bacteria 0 SEEN Urine Mucus 0 SEEN POC Glucose 01/09/19 07:06 POC Glucose 128 H Assessment/Plan All Active Problems Hepatic encephalopathy (Acute) Hypoglycemia due to insulin (Acute) Acute hypokalemia (Acute) Hypomagnesemia (Acute) Encephalopathy acute (Acute) Chest pain (Acute) 48 year old F past medical history of type 2 diabetes, on insulin, hepatic encephalopathy secondary to autoimmune hepatitis, on rifaximin, follows up at [facility], hypertension, schizoaffective disorder, noncompliant with all her medications. 1. Acute metabolic encephalopathy secondary to acute hypoglycemia, admitting blood sugar was in the 30s, status post D50 administration Patient is alert oriented at time of being admitted Plan: Admit to PCU, continue to monitor blood sugars, keep n.p.o., bedside swallow eval, continue on D5 Ringer's lactate 2. Severe electrolyte imbalances-Hypokalemia, hypomagnesemia, replaced, recheck at 2 PM and in a.m. 3. Type II DM, on insulin, will check HbA1c, will hold home insulin, will monitor 4. Acute hepatic encephalopathy secondary to autoimmune hepatitis, follows with the [facility], continue rifaximin, lactulose, spironolactone admitting ammonia 55, repeat ammonia, repeat liver function test 5. Schizoaffective disorder, due for ECT on Saturday, continue home regimen 6. DVT PPx- SCDs, h/o GI bleed from esophageal varices Code Visit Inpatient E&M: 28374 Init Hosp L3
--- NOTE | 2019-01-09 08:50 | NURSING ---
PCU PAINTSIL ENCEPHALOPATHY, HYPOKALEMIA, HYPOMAGNESEMIA, SCHIZOAFFECTIVE DISORDER
[2019-01-09] MEDS: Lactulose 20 GM/30 ML UDC PO (09:36)
--- NOTE | 2019-01-09 10:13 | EKG12_ITS ---
Test Reason : Blood Pressure : / mmHG Vent. Rate : 079 BPM Atrial Rate : 079 BPM P-R Int : 164 ms QRS Dur : 104 ms QT Int : 438 ms P-R-T Axes : 034 -34 000 degrees QTc Int : 502 ms Normal sinus rhythm Left axis deviation Voltage criteria for left ventricular hypertrophy Prolonged QT Poor R wave progression Abnormal ECG Confirmed by PAM ZAMBRANO, RANCHO ([id number]), deputy editor in chief ALEXEI WILKS ([id number]) on 01/14/2019 10:57:57 AM Referred By: DANISHA Confirmed By:RANCHO OROZCO MD
[2019-01-09 10:35] LABS: Bedside Glucose 77 mg/dL (70-110)
[2019-01-09 11:50] LABS: Bedside Glucose 102 mg/dL (70-110)
[2019-01-09] MEDS: rifAXIMin 550 MG Tablet PO ×2 (12:34→23:24)
[2019-01-09] MEDS: Ondansetron 4 MG/2 ML Vial IV (12:34)
[2019-01-09] MEDS: Dextrose 5%-Lactated Ringers 1,000 ML 75 ML IV (12:34)
[2019-01-09] MEDS: oxyCODONE 5 MG Tablet PO (12:34)
--- NOTE | 2019-01-09 13:59 | CASEMGMT ---
TAMIKO MELLO assessment: Face to Face with patient for initial transition planning/care coordination assessment. TAMIKO MELLO introduced self and role at [facility], pt voices understanding and consents to assessment at this time. Pt is sitting up in bed in no distress at this time. Pt is A/Ox4 at this time and answers all questions appropriately at this time. Care providers, pharmacy, and demographics verified at this time. 3 PCP: Jesika Specialists: SWATI Goel liver physician Preferred Pharmacy: [facility] [place] Living Will/HPOA: Pt states that she has LW/HPOA but she would like to completely redo them at this time. The old copies are not on file at [facility] at this time. Amalia PEÑA aware, voices understanding. LNOK: Sj Tyler, sig other; Rasheeda Lau, daughter Living Arrangements: Pt states lives with family in 2 story home and states no concerns at home at this time. Pt states is normally independent with ADL's but has been struggling to get upstairs to bedroom on 2nd floor. She states that her and her sig other 'are going to have to do something about that.' Transportation: Pt states drives self and states no transportation concerns at this time. DME/HHC: Pt states has the following DME: grab bars, cane, walkers, and shower chair. Pt states no hx of HHC or SNF in the past. Pt states she is interested in HHC for the future but needs to have some testing done prior to that. Pt states no concerns with going home at time of discharge. Pt is disabled. Pt does not smoke or drink ETOH. Pt states no further concerns/needs at this time. CM to follow for any further discharge planning/needs. Advised pt to ask for CM if any further questions/concerns/needs arise, voices understanding. Plan: [place] TAMIKO MELLO
[2019-01-09 15:02] LABS: Anion Gap 9 (5-15); BUN 8 mg/dL (7-18); BUN/Creat Ratio 11.5 RATIO (10-20); Chloride 108 mmol/L (98-107); EST Glomerular Filtration Rate 95 mL/min (>60); Est Glom Filt Rate - Afr Amer 115 mL/min (>60); Estimated Creatinine Clearance 100.48 ml/min; Glucose 170 mg/dL (74-106); Magnesium 1.8 mg/dL (1.6-2.6); Potassium 3.3 mmol/L (3.5-5.1); Sodium Level 139 mmol/L (136-145)
[2019-01-09] MEDS: proCHLORPERazine 10 MG/2 ML Vial 5 MG IV (17:14)
[2019-01-09] MEDS: 0.9% NaCl Peripheral Flush Adult/Peds IV ×3 (17:15→23:14)
[2019-01-09 17:25] LABS: Bedside Glucose 354 mg/dL (70-110)
[2019-01-09] MEDS: Insulin Lispro 100 UNIT/ML INSULN.PEN 10 UNIT SC (17:49)
[2019-01-09] MEDS: Dicyclomine 10 MG Capsule PO (23:21)
[2019-01-09] MEDS: Sucralfate 1 GM Tablet PO (23:22)
[2019-01-09] MEDS: Magnesium Oxide 400 MG Tablet PO (23:22)
[2019-01-09] MEDS: carBAMazepine 200 MG Tablet 100 MG PO (23:23)
[2019-01-09] MEDS: Insulin Lispro 100 UNIT/ML INSULN.PEN SC (23:29)
[2019-01-09 23:35] LABS: Bedside Glucose 331 mg/dL (70-110)
[2019-01-10] VITALS (9 sets, daily range): BP systolic 114–147; BP diastolic 59–79; PULSE 71–88; RESP 14–17; TEMP 36.6–36.9; O2SAT 95–98
[2019-01-10 07:06] LABS: Bedside Glucose 302 mg/dL (70-110)
[2019-01-10 07:12] LABS: Absolute Lymphocyte Count 0.49 X10^3/ul (0.83-4.51); Absolute Neutrophil Count 1.3 X10^3/uL (2.0-7.7); Basophil# 0.03 X10^3/uL; Basophil% 1.4 % (0-1); Eosinophil# 0.04 X10^3/uL; Eosinophils% 1.9 % (0-5); Hematocrit 34.5 % (37-47); Hemoglobin 11.5 g/dl (12.0-15.0); Lymphocyte # 0.49 X10^3/ul (4.0); Lymphocyte % 23.3 % (19-41); Mean Corp Hgb Conc 33.3 g/gl (32-36); Mean Corpuscular Hgb 29.4 pg (27.0-32.0); Mean Corpuscular Volume 88.2 fL (81-99); Mean Platelet Vol. 11.3 fl (6.2-12.0); Monocyte# 0.24 X10^3/uL; Monocyte% 11.4 % (0-10); Platelet Count 78 K/mm3 (150-450); RBC Distribution Width CV 15.1 % (11.6-14.6); RBC Distribution Width SD 47.8 fl (35.1-43.9); Red Blood Count 3.91 M/mm3 (4.2-5.4); White Blood Count 2.1 K/mm3 (4.4-11.0)
[2019-01-10 07:17] LABS: Albumin, Serum 2.6 g/dL (3.2-5.0); BUN 8 mg/dL (7-18); BUN/Creat Ratio 10.3 RATIO (10-20); Chloride 108 mmol/L (98-107); Creatinine, Serum 0.78 mg/dL (0.55-1.02); EST Glomerular Filtration Rate 83 mL/min (>60); Est Glom Filt Rate - Afr Amer 101 mL/min (>60); Estimated Creatinine Clearance 90.18 ml/min; Glucose 310 mg/dL (74-106); Phosphorus 2.4 mg/dL (2.5-4.9); Potassium 3.6 mmol/L (3.5-5.1); Sodium Level 141 mmol/L (136-145)
[2019-01-10 07:47] LABS: Differential Indicated SCAN CRITERIA MET; POSITIVE COUNT NO; POSITIVE DIFFERENTIAL YES; POSITIVE MORPHOLOGY NO
[2019-01-10] MEDS: rifAXIMin 550 MG Tablet PO (08:19)
[2019-01-10] MEDS: Dicyclomine 10 MG Capsule PO ×2 (08:19→11:48)
[2019-01-10] MEDS: Spironolactone 50 MG Tablet 200 MG PO (08:19)
[2019-01-10] MEDS: Insulin Lispro 100 UNIT/ML INSULN.PEN SC ×2 (08:20→11:49)
[2019-01-10] MEDS: carBAMazepine 200 MG Tablet 100 MG PO (08:20)
[2019-01-10] MEDS: Magnesium Oxide 400 MG Tablet PO (08:20)
[2019-01-10] MEDS: Sucralfate 1 GM Tablet PO ×2 (08:22→11:48)
[2019-01-10 12:05] LABS: Bedside Glucose 384 mg/dL (70-110)
--- NOTE | 2019-01-10 12:52 | CASEMGMT ---
Social Work Note SW completed advanced directives with pt. Original copy provided to pt and copy placed on pt's chart. Per H+P pt does have history of Bipolar and Schizoaffective. SW asked pt about needing additional resources at this time regarding Mental Health and any substance abuse Hx. Pt denied. 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 Pt states that she is hoping to go back to school and get her Ph.D. Josefa Castillo INTERNATIONAL RELATIONS PROFESSOR, RESEARCH CONTRACTS SUPERVISOR
--- NOTE | 2019-01-10 13:17 | NURSING ---
student nurse charting reviewed.
--- NOTE | 2019-01-10 14:09 | DCINST_ITS ---
- Discharge Diagnoses Current Active Problems: Current Active and Chronic Problems Hypoglycemia due to insulin (Acute) Acute hypokalemia (Acute) Hypomagnesemia (Acute) Autoimmune hepatitis (Chronic) Encephalopathy acute (Acute) Reason(s) for Visit for Discharge Instructions: Altered mental status You will use the following diet at home:: Calorie/Carbohydrate Controlled (specify 1200, 1400, etc), Cardiac Your food should be the consistency of: Regular Your liquids should be the consistency of: Regular/Thin Discharge Activity: Return to Normal Activity Weight Bearing Status: Weight bearing as tolerated Call your doctor if your incision/area has: Continuous Slow Oozing Additional Instructions: Continue to take all your medications as prescribed. Measure your blood sugars 3x/day and show a log blood sugar readings to your primary care doctor. You should follow-up with your primary care doctor within a week for repeat blood work. Continue to follow-up with your psychiatrist for ECT as scheduled. Follow-up with your liver doctors as scheduled. Allergies/Adverse Reactions: Allergies adhesive Allergy (Verified 01/09/19 07:10) Rash escitalopram oxalate [From Lexapro] Allergy (Verified 01/09/19 07:10) blindness gabapentin [From Neurontin] Allergy (Verified 01/09/19 07:10) Alan Jez's Syndrome lamotrigine [From Lamictal] Allergy (Verified 01/09/19 07:10) Blindness Preservatives Allergy (Uncoded 01/09/19 07:10) passed out, lungs deflated Preservatives in various foods including packaged gladys cheese, lettuce, and seafood. sour cream Allergy (Uncoded 01/09/19 07:10) Anaphylaxis Medications to take at Discharge Potassium Chloride [Klor-Con M20] 20 meq PO BID 09/25/15 Albuterol Inhaler [Ventolin Hfa] 2 puff INHALATION Q4H PRN PRN 02/16/16 Furosemide [Lasix] 80 mg PO DAILY 03/14/17 Insulin Lispro [Humalog] 12 units SC ACHS 03/14/17 Magnesium Oxide [Magnesium] 400 mg PO BID 03/14/17 Spironolactone [Aldactone] 200 mg PO DAILY 04/28/17 traMADol [Ultram] 50 mg PO Q6H PRN PRN 04/28/17 Sennosides/Docusate Sodium [Senna Plus Tablet] 1 each PO DAILY PRN 04/29/17 Fluvoxamine Maleate [Luvox] 100 mg PO QHS 11/04/17 Rifaximin [Xifaxan] 550 mg PO BID 11/04/17 Ursodiol [Actigall] 300 mg PO BID 11/04/17 Carbamazepine [Carbatrol] 100 mg PO BID 08/19/18 Cholecalciferol (Vitamin D3) [Vitamin D3] 50,000 unit PO QWEEK 08/19/18 Dicyclomine HCl [Bentyl] 10 mg PO ACHS 08/19/18 Fluticasone Propionate [Flonase Allergy Relief] 15.8 ml NS BID PRN 08/19/18 Sucralfate [Carafate] 1 gm PO ACHS 08/19/18 Omeprazole [Prilosec] 40 mg PO DAILY #0 08/20/18 Baclofen 10 mg PO QHS 01/09/19 Lactulose [Chronulac] 20 gm PO TID 01/09/19 Insulin Degludec [Tresiba Flextouch U-100] 20 unit SQ DAILY #0 01/10/19 Insulin Lispro [Humalog KwikPen] See Protocol SC ACHS insuln.pen 01/10/19 Primary Care Physician: Janay Canchola MD [Primary Care Provider] - Please follow up with your Primary Care Physician in: within 1-2 weeks Test Results: Test results from this visit will be discussed in further detail at your follow- up appointment, if applicable. Proposed Discharge Date: 01/10/19
--- NOTE | 2019-01-10 14:15 | DS.PCM_ITS ---
Discharge Date and Diagnosis Date of Admission: 01/09/19 Date of Discharge: 01/10/19 - Primary Discharge Diagnosis Active and Suspected Problems Acute metabolic encephalopathy Hypoglycemia Severe hypokalemia Severe hypomagnesemia Uncontrolled type II DM Hepatic encephalopathy - Secondary Discharge Diagnosis Chronic Problems Autoimmune hepatitis (Chronic) Diabetes mellitus (Chronic) Liver cirrhosis (Chronic) Reilly thyroiditis (Chronic) Autoimmune hepatitis (Chronic) Schizoaffective disorder (Chronic) Bipolar disorder (Chronic) Splenomegaly (Chronic) Hospital Course and Treatment None Operations: None Procedures: None Summary of Care Provided: 48 year old F past medical history of type 2 DM, on insulin, hepatic encephal opathy secondary to autoimmune hepatitis, on rifaximin, follows up at [facility], hypertension, schizoaffective disorder, noncompliant with all her medications. Patient was brought in by the EMS, with altered mental status. She was found to have a blood sugar of 30. She was treated with D50. BS on arrival to the ED was 175. She was still confused and was admitted for further monitoring. Patient had admitted on questioning, to not being compliant with any of her medications. 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 She had tried on the day and she found that she was confused and could not walk straight. Patient initially was managed on the D5 infusion. Her blood sugars start to rise and that was stopped. She was continued on an insulin sliding scale. She was continued on her chronic medications with improvement. She has severe electrolyte imbalances on admission that were replaced. Patient seems to improving her mentation. She was aching and anticipating for discharge. She has an appointment for her schizophrenia with his psychiatrist on Saturday for ECT. Patient lives at home with her abbey? and her daughter would also have phil and son. I spoke to Sj, her fiance - [phone]. I stressed on compliance with her medications. She was strongly encouraged to she could follow-up with her psychiatrist early in the week for ECT. Subjective: On the day of discharge, patient was seen and examined. Denied any new complaints. Eager to be discharged. Her fiance was coming over and would be assisting her with insulin administration. Objective: Physical Exam General: Alert, Oriented x3, Cooperative, No apparent distress HEENT: Atraumatic, PERRLA, EOMI, Normocephalic Oral: Moist Mucosa Neck: Supple Lungs: Clear to auscultation, Normal air movement Cardiovascular: Regular rate, Regular Rhythm, Normal S1, Normal S2, No murmurs Abdomen: Bowel Sounds Present, Soft, Non Tender, No Hepato-splenomegaly, Distended Extremities: No edema Skin: No rashes, No breakdown Musculoskeletal: No Tenderness to Palpation of Joints or Extremities Lymphatic: No Cervical, Supraclavicular, or Inguinal Adenopathy Neurological: Cranial nerves II-XII grossly intact, Neuro grossly intact Psych/Mental Status: Normal Affect, Appropriate - Physical Exam Vital Signs Temp Pulse Resp BP Pulse Ox 98.4 F 88 14 147/79 H 98 01/10/19 13:18 01/10/19 13:18 01/10/19 13:18 01/10/19 13:18 01/10/19 13:18 Oxygen Delivery Method Room Air Weight: 80.7 kg Body Mass Index (BMI) 26.2 Finger Stick Blood Glucose 128 Intake and Output for Last 24 Hours 01/08/19 01/09/19 01/10/19 23:59 23:59 23:59 Intake Total 1763 / 1763 490 / 490 Balance 1763 / 1763 490 / 490 Laboratory Tests Past 24 Hrs 01/09/19 01/10/19 01/10/19 14:27 05:54 05:54 WBC 2.1 L RBC 3.91 L Hgb 11.5 L Hct 34.5 L MCV 88.2 MCH 29.4 MCHC 33.3 RDW 15.1 H RDW Differential 47.8 H Plt Count 78 L MPV 11.3 Immature Gran % (Auto) 0.000 Neut % (Auto) 62.0 Lymph % (Auto) 23.3 [place] % (Auto) 11.4 H Eos % (Auto) 1.9 Baso % (Auto) 1.4 H Absolute Neuts (auto) 1.3 L Absolute Lymphs (auto) 0.49 L Total Counted Not Reportable Diff Path Review March Sodium 139 141 Potassium 3.3 L 3.6 Chloride 108 H 108 H Carbon Dioxide 22.0 24.0 Anion Gap 9 BUN 8 8 Creatinine 0.70 0.78 Estim Creat Clear Calc 100.48 90.18 Est GFR (MDRD) Af Amer 115 101 Est GFR (MDRD) Non-Af 95 83 BUN/Creatinine Ratio 11.5 10.3 Glucose 170 H 310 H Hemoglobin A1c Calcium 8.0 L 8.0 L Phosphorus 2.4 L Magnesium 1.8 Ammonia Albumin 2.6 L 01/10/19 01/10/19 01/10/19 05:54 05:54 10:37 WBC RBC Hgb Hct MCV MCH MCHC RDW RDW Differential Plt Count MPV Immature Gran % (Auto) Neut % (Auto) Lymph % (Auto) [place] % (Auto) Eos % (Auto) Baso % (Auto) Absolute Neuts (auto) Absolute Lymphs (auto) Total Counted Diff Path Review Sodium Potassium Chloride Carbon Dioxide Anion Gap BUN Creatinine Estim Creat Clear Calc Est GFR (MDRD) Af Amer Est GFR (MDRD) Non-Af BUN/Creatinine Ratio Glucose Hemoglobin A1c Pending Calcium Phosphorus Magnesium Pending Ammonia 84.0 H Albumin POC Glucose 01/10/19 01/10/19 01/09/19 11:47 06:35 23:28 POC Glucose 384 H 302 H 331 H 01/09/19 17:18 POC Glucose 354 H Discharge Diet: Low fat/ Low Cholesterol, 2000 mg Sodium Diet, Carb Control Diet Discharge Activity: Return to Normal Activity Weight Bearing Status: Weight bearing as tolerated Call your doctor if your incision/area has: Continuous Slow Oozing Home Medications: Medications to take at Discharge Potassium Chloride [Klor-Con M20] 20 meq PO BID 09/25/15 Albuterol Inhaler [Ventolin Hfa] 2 puff INHALATION Q4H PRN PRN 02/16/16 Furosemide [Lasix] 80 mg PO DAILY 03/14/17 Insulin Lispro [Humalog] 12 units SC ACHS 03/14/17 Magnesium Oxide [Magnesium] 400 mg PO BID 03/14/17 Spironolactone [Aldactone] 200 mg PO DAILY 04/28/17 traMADol [Ultram] 50 mg PO Q6H PRN PRN 04/28/17 Sennosides/Docusate Sodium [Senna Plus Tablet] 1 each PO DAILY PRN 04/29/17 Fluvoxamine Maleate [Luvox] 100 mg PO QHS 11/04/17 Rifaximin [Xifaxan] 550 mg PO BID 11/04/17 Ursodiol [Actigall] 300 mg PO BID 11/04/17 Carbamazepine [Carbatrol] 100 mg PO BID 08/19/18 Cholecalciferol (Vitamin D3) [Vitamin D3] 50,000 unit PO QWEEK 08/19/18 Dicyclomine HCl [Bentyl] 10 mg PO ACHS 08/19/18 Fluticasone Propionate [Flonase Allergy Relief] 15.8 ml NS BID PRN 08/19/18 Sucralfate [Carafate] 1 gm PO ACHS 08/19/18 Omeprazole [Prilosec] 40 mg PO DAILY #0 08/20/18 Baclofen 10 mg PO QHS 01/09/19 Lactulose [Chronulac] 20 gm PO TID 01/09/19 Insulin Degludec [Tresiba Flextouch U-100] 20 unit SQ DAILY #0 01/10/19 Insulin Lispro [Humalog KwikPen] See Protocol SC ACHS insuln.pen 01/10/19 Primary Care Physician: Janay Canchola MD [Primary Care Provider] - Please follow up with your Primary Care Physician in: within 1-2 weeks Disposition: Home Minutes spent on discharge:: 45 Patient Condition:: Stable Medical Necessity - Tobacco Use Smoking Status: Never smoker Tobacco Use: Non-smoker Meaningful Use Info Meaningful Use Diagnoses (Choose all that apply): None applicable Code Visit Inpatient E&M: 62026 Disch Hosp
[2019-01-10 14:31] LABS: Magnesium 1.6 mg/dL (1.6-2.6)
[2019-01-10 14:43] LABS: Hemoglobin A1c 10.7 % (4.2-6.3)
[2019-01-12 12:07] LABS: Pathologist Review Reviewed
--- NOTE | 2019-01-12 15:14 | CASEMGMT ---
RN FUNMILAYO DC PHONE CALL DC DATE: 01/10/19 DC DISPOSITION: Home LACE/STRATA: 07/21 Intro role of CM to patient via phone. Pt states she has her medications, has appt with her physician tomorrow and no questions re: her discharge instructions. No care improvement suggestions given. Adin THOMPSONN RN ACM
== END 2019-01-10 15:59 | disposition home or self-care (01) | DRG 420 ==
LOC: ED 08:34 → PCU 09:22
PROVIDERS: Admitting Provider Internal Medicine; Emergency Provider Emergency Medicine; Family Provider Internal Medicine; PCP Internal Medicine; Visit Provider Internal Medicine
DX: E11.649 Type 2 diabetes mellitus with hypoglycemia without coma (principal); G93.41 Metabolic encephalopathy; E87.6 Hypokalemia; E83.42 Hypomagnesemia; F25.9 Schizoaffective disorder, unspecified; K75.4 Autoimmune hepatitis; T38.3X5A Adverse effect of insulin and oral hypoglycemic [antidiabetic] drugs, initial encounter; E06.3 Autoimmune thyroiditis; K72.90 Hepatic failure, unspecified without coma; E11.65 Type 2 diabetes mellitus with hyperglycemia; K74.60 Unspecified cirrhosis of liver; K21.9 Gastro-esophageal reflux disease without esophagitis; I10 Essential (primary) hypertension; Z91.14 Patient's other noncompliance with medication regimen; Z79.4 Long term (current) use of insulin; Z79.899 Other long term (current) drug therapy; E11.40 Type 2 diabetes mellitus with diabetic neuropathy, unspecified
CPT/HCPCS: 36415; 36600; 80048; 80053; 80069; 80076; 81001; 82140; 82803; 82962; 83036; 83735; 85025; 93005; 96361; 96365; 96366; 96375; 97161; 99218; 99284; J7030; A4216; G0378; J2405; J3475; J7799

== ENCOUNTER → 2019-06-02 09:26 | Outpatient (CLI) | payer MEDICAID, SELFPAY ==
[2019-01-09 09:50] VITALS: BMI 26.2
--- NOTE | 2019-06-02 09:35 | RAD_ITS ---
STUDY: SWALLOWING STUDY REASON FOR EXAM: Female, 48 years old. Dysphagia. TECHNIQUE: The examination was performed with Speech Pathology in attendance. Under fluoroscopic observation, the patient ingested thin barium, thick barium, barium pudding, and barium coated cracker. FLUOROSCOPY TIME: 1:20 minutes/seconds. 1168 fluoroscopic images were obtained. RADIOLOGIST INVOLVEMENT: Radiologist was present and providing direct supervision. COMPARISON: None. FINDINGS: The following was observed during swallowing of the various mixtures of barium: Thin Barium: There was no evidence of aspiration or laryngeal penetration. Thick Barium: There was no evidence of aspiration or laryngeal penetration. Barium Pudding: There was no evidence of aspiration or laryngeal penetration. Barium Coated Cracker: There was no evidence of aspiration or laryngeal penetration. RAD/Swallowing Function w/Video IMPRESSION: Normal tailored barium swallow study. No evidence of increased risk for aspiration. The swallow study findings were discussed with the patient by the speech pathologist at the conclusion of the examination. Please see speech pathology report for more information and recommendations. Electronically Signed: Dash Shin, at 11:28 EDT , Service support ,
--- NOTE | 2019-06-02 10:05 | SP.MBSS_ITS ---
PRIMARY / SECONDARY DIAGNOSIS: Dysphagia, unspecified (R13.10) REFERRING PHYSICIAN: Dr. Janay Canchola CURRENT DIET: Regular Textures/Thin Liquids DENTITION: Endentulous (patient has ill-fitting upper and lower dentures as well as cosmetic upper dentures that the patient reports wearing when eating only occasionally). MENTAL STATUS: WF RESPIRATORY STATUS: O2 via room air PREVIOUS MODIFIED BARIUM SWALLOW STUDY: N/A REASON FOR REFERRAL: Patient reports problems with liquids as well as some solids getting stuck requiring multiple swallows and coming back up on occasion. MEDICAL HISTORY: The patient is a 48/F with past medical history significant for schizoaffective disorder, bipolar disorder, Reilly thyroiditis, autoimmune hepatitis, type II diabetes mellitus, liver cirrhosis, and splenomegaly. STUDY FINDINGS: Patient participated in a Modified Barium Swallow (MBS) study on 06/02/2019. Dr. Shin was the radiologist present for this evaluation. This study was recorded in the lateral view and images were sent to PACs for storage. The following consistencies were presented to this patient for analysis of oropharyngeal swallow function: thin liquid, nectar thick liquid, pudding, and a regular textured, Shirley Doone cookie. Results of the MBS are as follows: PENETRATION / ASPIRATION SCALE (SIMON): 1 = does not enter airway 2 = enters airway/above vocal folds/ejected 3 = enters airway/above vocal folds/not ejected 4 = enters airway/contacts vocal folds/ejected 5 = enters airway/contacts vocal folds/not ejected 6 = enters airway/below vocal folds/ejected 7 = enters airway/below vocal folds/not ejected despite effort 8 = enters airway/below vocal folds/no effort PENETRATION / ASPIRATION SCALE (SCORE): 1) thin liquid via teaspoon = 1 2)thin liquid via teaspoon = 1 3)thin liquid via small sip from cup = 1 4)thin liquid via large sip from cup = *did not capture due to technical error 5)thin liquid via sequential sips from cup = 1 * trace undercoating of epiglottis 6) nectar thick liquid via cup = 1 7) pudding = 1 8) cookie = 1 9) thin liquid via sequential sips from straw = 1 IMPRESSION: mild oropharyngeal dysphagia (R13.12) ORAL PHASE CHARACTERIZED BY: LABIAL SEAL: no labial escape TONGUE CONTROL DURING BOLUS MANIPULATION: cohesive bolus between tongue to palatal seal BOLUS PREPARATION / MASTICATION: slow prolonged chewing/mashing with complete recollection BOLUS TRANSPORT / LINGUAL MOTION: brisk tongue motion ORAL RESIDUE: trace residue lining oral structures PHARYNGEAL PHASE CHARACTERIZED BY: INITIATION OF PHARYNGEAL SWALLOW: bolus head at posterior angle of ramus at first hyoid excursion SOFT PALATE ELEVATION: no bolus between soft palate and pharyngeal wall LARYNGEAL ELEVATION: complete superior movement of thyroid cartilage with complete approximation of arytenoids cartilage to epiglottic petiole ANTERIOR HYOID EXCURSION: complete anterior movement EPIGLOTTIC MOVEMENT: complete epiglottic inversion LARYNGEAL VESTIBULE CLOSURE AT HEIGHT OF SWALLOW: complete laryngeal vestibule closure with no air/contrast in laryngeal vestibule PHARYNGEAL STRIPPING WAVE: pharyngeal stripping wave present / complete PHARYNGOESOPHAGEAL SEGMENT OPENING: partial distension and partial duration; partial obstruction of flow TONGUE BASE RETRACTION: trace column of contrast between tongue base and posterior pharyngeal wall PHARYNGEAL RESIDUE: trace residue within or on pharyngeal structures ESOPHAGEAL PHASE CHARACTERIZED BY: ESOPHAGEAL BOLUS CLEARANCE IN THE UPRIGHT POSITION: minimal esophageal retention that could be viewed INTERPRETATION OF RESULTS: The patient presents with mild oropharyngeal dysphagia (R13.12) secondary to psychosomatic causes. Oral phase primarily marked by mastication inefficiency given endentulous status although patient reports that she has learned to adjust to harder food without teeth as she doesn't always wear dentures. Trace oral residue of Shirley Doone shortbread cookie post deglutition. Pharyngeal phase primarily marked by slightly reduced tongue based retraction and slightly reduced pharyngoesophageal segment opening with trace pharyngeal residue. Globus sensation patient is describing possibly attributed to mild esophageal retention during texture trials although more likely related to tensing of pharyngeal musculature due to anxiety surrounding swallowing. RECOMMENDATIONS: DIET TEXTURE RECOMMENDATIONS: Will recommend a regular-soft textured, thin liquid diet. COMPENSATORY STRATEGIES RECOMMENDED: Will recommend reduced bolus volume and rate of intake, alternating bites with sips, seated upright at 90 degrees during PO intake and remain upright for 30-60 minutes post meal (GERD precaution). Patient requires intensive skilled speech-language intervention for 1-2 sessions for education regarding MBSS results, continued diet texture management, and training and implementation of recommended compensatory strategies. Would consider additional assessment of the patients esophageal functioning, as it is outside the scope of the modified barium swallow study to objectively assess esophageal functioning, may additionally consider further workup via development mgr. Results and recommendations were discussed with the patient and patients daughter immediately following MBSS completion, with the patient verbalizing understanding and agreement with all recommendations and education provided. IMAGE COUNT: [id number] Preeti Wise M.A., [facility]-DIRECT MARKET[employer] INTERN Speech Language Pathologist [id number] [place] [address] [email or web address] [phone]
== END ==
PROVIDERS: Family Provider Internal Medicine; PCP Internal Medicine; Referring Provider Internal Medicine; Visit Provider Internal Medicine
DX: R13.12 Dysphagia, oropharyngeal phase (principal)
CPT/HCPCS: 74230; 92611

== ENCOUNTER 2019-11-06 04:46 | Inpatient (IN) | payer MEDICAID, SELFPAY ==
[2019-01-09 09:50] VITALS: BMI 26.2
[2019-11-06 03:51] VITALS: BMI 27.5
[2019-11-06 03:52] VITALS: BP 142/78; PULSE 81; RESP 18; TEMP 36.7; O2SAT 94
[2019-11-06 04:07] VITALS: BMI 27.6
[2019-11-06] MEDS: 0.9% Saline Lock 10 ML Syringe IV ×3 (05:32→22:46)
[2019-11-06 05:45] LABS: Absolute Lymphocyte Count 0.45 X10^3/uL (0.83-4.51); Basophil# 0.03 X10^3/uL; Basophil% 1.1 % (0-1); Eosinophil# 0.06 X10^3/uL; Eosinophils% 2.1 % (0-5); Hematocrit 32.2 % (37-47); Hemoglobin 10.7 g/dL (12.0-15.0); Lymphocyte # 0.45 X10^3/ul (4.0); Lymphocyte % 15.8 % (19-41); Mean Corp Hgb Conc 33.2 g/dL (32-36); Mean Corpuscular Hgb 31.5 pg (27.0-32.0); Mean Corpuscular Volume 94.7 fL (81-99); Mean Platelet Vol. 10.2 fl (6.2-12.0); Monocyte# 0.29 X10^3/uL; Monocyte% 10.2 % (0-10); NRBC Flagged by Analyzer 0 % (0-5); Neutrophil % 70.4 % (47-70); POSITIVE COUNT YES; POSITIVE DIFFERENTIAL YES; Platelet Count 91 K/mm3 (150-450); RBC Distribution Width CV 13.8 % (11.6-14.6); RBC Distribution Width SD 47.2 fl (35.1-43.9); White Blood Count 2.8 K/mm3 (4.4-11.0)
[2019-11-06 05:51] LABS: Differential Indicated SCAN CRITERIA MET
[2019-11-06] MEDS: Morphine 2 MG/ML Syringe IV ×4 (05:51→21:41)
[2019-11-06] MEDS: Lactulose 20 GM/30 ML UDC PO ×3 (05:59→21:45)
[2019-11-06 06:01] LABS: International Normalized Ratio 1.1; Prothrombin Time (Protime)PT. 14.3 SECONDS (11.7-14.9)
[2019-11-06 06:04] LABS: Anion Gap 6 (5-15); BUN 5 mg/dL (7-18); BUN/Creat Ratio 8.2 RATIO (10-20); Calcium,Total 7.3 mg/dL (8.5-10.1); Chloride 104 mmol/L (98-107); Creatinine, Serum 0.61 mg/dL (0.55-1.02); EST Glomerular Filtration Rate 110 mL/min (>60); Est Glom Filt Rate - Afr Amer 133 mL/min (>60); Estimated Creatinine Clearance 110.06 ml/min; Glucose 325 mg/dL (74-106); Potassium 3.5 mmol/L (3.5-5.1); Sodium Level 135 mmol/L (136-145)
[2019-11-06 06:10] LABS: Lactic Acid 1.2 mmol/L (0.4-1.9)
[2019-11-06] MEDS: Sucralfate 1 GM Tablet PO ×4 (06:36→21:45)
[2019-11-06] MEDS: Dicyclomine 10 MG Capsule PO ×4 (06:36→21:45)
--- NOTE | 2019-11-06 06:39 | HP.PCM_ITS ---
Problem List (1) Cellulitis Status: Acute (2) Acute hypokalemia Status: Inactive (3) Chest pain Status: Inactive (4) Encephalopathy acute Status: Inactive (5) Hepatic encephalopathy Status: Inactive (6) Hypoglycemia due to insulin Status: Inactive (7) Hypomagnesemia Status: Inactive (8) Autoimmune hepatitis Status: Chronic (9) Bipolar disorder Status: Chronic Qualifiers: (10) Diabetes mellitus Status: Chronic Qualifiers: Diabetes mellitus type: type 2 Diabetes mellitus terminal carman insulin use: with alf use Diabetes mellitus complication status: with neurologic complications Diabetes mellitus complication detail: with unspecified neuropathy Qualified Code(s): E11.40 - Type 2 diabetes mellitus with diabetic neuropathy, unspecified; Z79.4 - intermediate (current) use of insulin (11) Reilly thyroiditis Status: Chronic (12) Liver cirrhosis Status: Chronic (13) Schizoaffective disorder Status: Chronic Qualifiers: Schizoaffective disorder type: depressive Qualified Code(s): F25.1 - Schizoaffective disorder, depressive type (14) Splenomegaly Status: Chronic History of Present Illness Date of Admission: 11/06/19 Chief Complaint: redness of right popliteal fossa The patient is a 49 year old F with a significant history of diabetes mellitus; autoimmune hepatitis; cirrhosis with varices who presented with erythema of her right popliteal fossa. Her symptoms started about 10 days ago when she was being evaluated for generalized malaise. These evaluations were at [facility]. She was being evaluated for flulike symptoms; fevers; generalized weakness and she was diagnosed with URI. She was treated for URI with Bactrim. Nurses at that time found that she had erythema of her right popliteal fossa and she was treated with Keflex and one other antibiotics which she cannot remember. However patient saw progressive worsening of her cellulitic-like symptoms and we nt to [place] [facility] on 11/05/2019. Patient reports extreme burning- like pain at her right popliteal fossa. Over at [facility] her lactic acid was elevated. She did not have any other markers of sepsis. She was given clindamycin IV. Also because her blood glucose was elevated she was given 8 units of short acting insulin. Because emergency department doctor at [place] [facility] thought that patient may need ID specialist and a Surgeon evaluation for her right popliteal fossa; and these specialist are not present at [facility] a decision was made to transfer the patient. Because patient lives at [place], patient asked that she be transferred to our hospital. Past Medical History Past Medical History (Chronic Problems): Chronic Problems Autoimmune hepatitis (Chronic) Diabetes mellitus (Chronic) Liver cirrhosis (Chronic) Reilly thyroiditis (Chronic) Autoimmune hepatitis (Chronic) Schizoaffective disorder (Chronic) Bipolar disorder (Chronic) Splenomegaly (Chronic) Allergies adhesive Allergy (Verified 01/09/19 07:10) Rash escitalopram oxalate [From Lexapro] Allergy (Verified 01/09/19 07:10) blindness gabapentin [From Neurontin] Allergy (Verified 01/09/19 07:10) Alan Jez's Syndrome lamotrigine [From Lamictal] Allergy (Verified 01/09/19 07:10) Blindness Preservatives Allergy (Uncoded 01/09/19 07:10) passed out, lungs deflated Preservatives in various foods including packaged gladys cheese, lettuce, and seafood. sour cream Allergy (Uncoded 01/09/19 07:10) Anaphylaxis Home Medications: Ambulatory Orders Medication Instructions Recorded Potassium Chloride [Klor-Con M20] 20 meq PO BID 09/25/15 Albuterol Inhaler [Ventolin Hfa] 2 puff INHALATION Q4H PRN PRN 02/16/16 Furosemide [Lasix] 80 mg PO DAILY 03/14/17 Insulin Lispro [Humalog] 12 units SC ACHS 03/14/17 Magnesium Oxide [Magnesium] 400 mg PO BID 03/14/17 Spironolactone [Aldactone] 100 mg PO DAILY 04/28/17 traMADol [Ultram] 50 mg PO Q6H PRN PRN 04/28/17 Sennosides/Docusate Sodium [Senna 1 each PO DAILY PRN 04/29/17 Plus Tablet] Fluvoxamine Maleate [Luvox] 100 mg PO QHS 11/04/17 Rifaximin [Xifaxan] 550 mg PO BID 11/04/17 Ursodiol [Actigall] 300 mg PO BID 11/04/17 Carbamazepine [Carbatrol] 100 mg PO BID 08/19/18 Cholecalciferol (Vitamin D3) 50,000 unit PO SA 08/19/18 [Vitamin D3] Dicyclomine HCl [Bentyl] 10 mg PO ACHS 08/19/18 Fluticasone Propionate [Flonase 15.8 ml NS BID PRN 08/19/18 Allergy Relief] Sucralfate [Carafate] 1 gm PO ACHS 08/19/18 Omeprazole [Prilosec] 40 mg PO DAILY #0 08/20/18 Baclofen 10 mg PO QHS 01/09/19 Lactulose [Chronulac] 20 gm PO TID 01/09/19 Insulin Degludec [Tresiba 20 unit SQ DAILY #0 01/10/19 Flextouch U-100] Insulin Lispro [Humalog KwikPen] See Protocol [facility] insuln.pen 01/10/19 Pregabalin [Lyrica] 50 mg PO BID 11/06/19 Surgical History: - - Appendectomy, cholecystectomy, partial hysterectomy. 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, Depression PRICING LEAD History: dysfunctional uterine bld Lives: Spouse/ Significant Other Smoking Status: Never smoker Alcohol: None - *Family History Paternal History Items: - - father with heart attacks and strokes Sibling History Items: Hypertension, - - Her sister had hyperthyroidism Maternal History Items: Heart Disease - Her grandmother had heart failure, - - She reported her mother had low blood pressure Review of Systems Constitutional: Denies: Chills, Fever, Weight Change HEENT: Denies: Head Aches, Sinus Congestion, Sinus Drainage Cardiovascular: Denies: Chest Pain, Palpitations Respiratory: Denies: Cough, Shortness of breath at rest, Sputum production Gastrointestinal: Denies: Abdominal Pain, Nausea, Vomiting Genitourinary: Denies: Dysuria Musculoskeletal: Denies: Joint Pain, Joint Tenderness Skin: Reports: Skin Changes - Erythema and redness of right popliteal fossa. Denies: Rash, Wounds Neurological: Denies: Numbness, Tingling, Focal weakness Psychiatric: Denies: Anxiety, Depression, Homicidal Ideations, Suicidal Ideations Hematologic/ Lymphatic: Denies: Easy Bruising, Easy Bleeding VTE Information - Inpt Only VTE Present on Admission: No VTE Mechan Device Prophylaxis: SCD's VTE Pharm Prophylaxis ordered?: No Patient Problems: Active and Suspected Problems Cellulitis (Acute) - Physical Exam Vitals/I&O's: Vital Signs Temp Pulse Resp BP Pulse Ox 98.0 F 81 18 142/78 H 94 11/06/19 03:52 11/06/19 03:52 11/06/19 03:52 11/06/19 03:52 11/06/19 03:52 Oxygen Delivery Method Room Air Weight: 82.2 kg Body Mass Index (BMI) 27.5 Finger Stick Blood Glucose 128 Intake and Output for Last 24 Hours 11/04/19 11/05/19 11/06/19 23:59 23:59 23:59 Intake Total 162 / 162 Balance 162 / 162 General: Alert, Oriented x3, Cooperative HEENT: Atraumatic, PERRLA, EOMI, Normocephalic Neck: Supple, No JVD, Negative Carotid Bruits Lungs: Clear to auscultation, Normal air movement Cardiovascular: Regular rate, Normal S1, Normal S2, No murmurs Abdomen: Bowel Sounds Present, Soft, Non Tender Extremities: No edema, Capillary Refill Less than 3 Seconds Skin: - - Erythema; tenderness and induration of right popliteal fossa Musculoskeletal: No Tenderness to Palpation of Joints or Extremities Neurological: Cranial nerves II-XII grossly intact Psych/Mental Status: Normal Affect, Appropriate Laboratory Results 11/06/19 05:34: Lactic Acid 1.2 11/06/19 05:34: WBC 2.8 L, RBC 3.40 L, Hgb 10.7 L, Hct 32.2 L, MCV 94.7, MCH 31.5, MCHC 33.2, RDW Std Deviation 47.2 H, RDW Coeff of Valentina 13.8, Plt Count 91 L , MPV 10.2, Immature Gran % (Auto) 0.400, Neut % (Auto) 70.4 H, Lymph % (Auto) 15.8 L, [place] % (Auto) 10.2 H, Eos % (Auto) 2.1, Baso % (Auto) 1.1 H, Absolute Neuts (auto) 2.0, Absolute Lymphs (auto) 0.45 L, Nucleated RBC % 0 11/06/19 05:34: Sodium 135 L, Potassium 3.5, Chloride 104, Carbon Dioxide 25.0, Anion Gap 6, BUN 5 L, Creatinine 0.61, Estim Creat Clear Calc 110.06, Est GFR (MDRD) Af Amer 133, Est GFR (MDRD) Non-Af 110, BUN/Creatinine Ratio 8.2 L, Glucose 325 H, Calcium 7.3 L 11/06/19 05:34: PT 14.3, INR 1.1 Current Medications Acetaminophen (Tylenol) 650 mg PO Q6H PRN PRN PRN Reason: Pain Score 1-3/Temp > 100.7 F Albuterol Sulfate (Ventolin Aerosols) 2.5 mg INHALATION Q2H PRN PRN PRN Reason: sob/wheezing Baclofen (Lioresal) 10 mg PO QHS YONI Dicyclomine HCl (Bentyl) 10 mg PO ACHS YONI Last Admin: 11/06/19 06:36 Dose: 10 mg Documented by: Ergocalciferol (Vitamin D) 50,000 unit PO SA YONI Fluticasone Propionate (Flonase Nasal [place]) 1 spray NASAL BID PRN Fluvoxamine Maleate (Luvox) 100 mg PO QHS YONI Furosemide (Lasix) 80 mg PO DAILY YONI Glucagon () 1 mg IM .X1 PRN PRN Reason: Hypoglycemia Sodium Chloride () 250 mls @ 15 mls/hr IV .[id number] PRN PRN Reason: Saline Flush Last Infusion: 11/06/19 05:41 Dose: 0 mls/hr Documented by: Sodium Chloride () 250 mls @ 15 mls/hr IV .[id number] PRN PRN Reason: Additional IVPB Infusion Dextrose (Dextrose 10%-Water) 250 mls @ 999 mls/hr IV .Q16M PRN; Protocol PRN Reason: HYPOGLYCEMIA Piperacillin Sod/Tazobactam (Sod 3.375 gm/ Sodium Chloride) 50 mls @ 12.5 mls/hr IV Q8 [facility] Vancomycin IV Pharmacy to Dose (1,250 ea/ Sodium Chloride) 500 mls @ 250 mls/hr IV Q12 YONI; Protocol Vancomycin HCl 2,000 mg/ (Sodium Chloride) 540 mls @ 250 mls/hr IV X1 ONE Stop: 11/06/19 07:39 Insulin Glargine (Lantus (Bkc)) 20 units SC DAILY YONI Insulin Human Lispro (Humalog Kwikpen (Bkc)) 0 unit SC ACHS & 3AM YONI; Protocol Insulin Human Lispro (Humalog Kwikpen (Bkc)) 12 unit SC ACHS YONI Lactulose (Chronulac, Cephulac) 20 gm PO TID YONI Last Admin: 11/06/19 05:59 Dose: 20 gm Documented by: Magnesium Oxide (Mag-Ox 400) 400 mg PO BID [facility] Morphine Sulfate () 2 mg IV Q3H PRN PRN PRN Reason: Pain Score 6-10/10 Last Admin: 11/06/19 05:51 Dose: 2 mg Documented by: Non-Formulary Medication (Carbamazepine [Carbatrol]) 100 mg PO BID [facility] Non-Formulary Medication (Ursodiol) 300 mg PO BID [facility] Ondansetron HCl (Zofran) 4 mg IV Q8H PRN PRN PRN Reason: NAUSEA/VOMITING Oxycodone HCl (Oxyir) 5 mg PO Q4H PRN PRN PRN Reason: Pain Score 4-5/10 Pantoprazole Sodium (Protonix) 40 mg PO DAILY [facility] Potassium Chloride (K-Dur) 20 meq PO BID YONI Pregabalin (Lyrica) 50 mg PO BID YONI Rifaximin (Xifaxan) 550 mg PO BID [facility] Senna/Docusate Sodium (Senokot-S, Vy-Colace) 1 tablet PO DAILY PRN PRN PRN Reason: Constipation Sodium Chloride () 10 - 40 ml IV UD PRN PRN Reason: SALINE FLUSH Last Admin: 11/06/19 05:32 Dose: 10 ml Documented by: Spironolactone (Aldactone) 100 mg PO DAILY [facility] Sucralfate (Carafate) 1 gm PO 1HR_ACHS [facility] Last Admin: 11/06/19 06:36 Dose: 1 gm Documented by: Assessment/Plan All Active Problems Cellulitis (Acute) The patient is a 49 year old F with a significant history of diabetes mellitus; autoimmune hepatitis; cirrhosis with varices who presents with erythema; swelling and pain of her right popliteal fossa; as well as induration consistent with cellulitis with a differential diagnoses as necrotizing fasciitis. Cellulitis of right popliteal fossa Differential diagnosis includes necrotizing fasciitis. Lactic acid was elevated at [facility] and patient received IV fluids. Will repeat lactic acid. Patient received clindamycin IV in the emergency department. We will start patient on vancomycin and Zosyn. Will consult infectious disease and plastic surgery. Will get CBC and a BMP. Oxycodone and morphine as needed for pain. Hold home Ultram. Diabetes mellitus with hyperglycemia On presentation her blood pressure was not within goal. Her blood glucose was severely elevated. Continue home long-acting insulin. Continue home prandial insulin at the reduced dose. Accu-Chek QA CHS and 2 AM and cover with correction scale. Adjust hypoglycemic regimen as necessary. Autoimmune hepatitis with cirrhosis and history of thoracentesis and paracentesis Patient feels that her bilateral extremities are swollen but upon physical examination it is only in her right antecubital fossa that appears swollen. Continue home Lasix and spironolactone. Of note patient was recently given IV fluids because of her lactic acidosis. Repeat lactic acid DVT prophylaxis SCD in the setting of waiting for surgical evaluation. Code Visit Inpatient E&M: 84252 Init Hosp L3
[2019-11-06 06:40] LABS: Differential Comment SCANNED
[2019-11-06 06:41] LABS: Platelet Estimate SLT DEC (ADEQ)
[2019-11-06 06:42] LABS: Platelet Morphology LARGE
[2019-11-06] MEDS: Ondansetron 4 MG/2 ML Vial IV ×3 (06:46→22:45)
[2019-11-06 08:00] VITALS: O2SAT 91
[2019-11-06 08:12] VITALS: BP 126/84; PULSE 80; RESP 16; TEMP 36.7; O2SAT 96
[2019-11-06] MEDS: Magnesium Oxide 400 MG Tablet PO ×2 (08:14→21:48)
[2019-11-06] MEDS: Furosemide 80 MG Tablet PO (08:14)
[2019-11-06] MEDS: Pantoprazole Sodium 40 MG Tablet PO (08:15)
[2019-11-06] MEDS: Spironolactone 50 MG Tablet 100 MG PO (08:15)
[2019-11-06] MEDS: rifAXIMin 550 MG Tablet PO ×2 (08:16→21:50)
--- NOTE | 2019-11-06 08:22 | PCM.RX.CS ---
Consult Pharmacy has been consulted to manage selected antiobiotic: Vancomycin Type of Consult: New start Suspected Infection: Skin/Soft tissue Prior Doses of Antibiotics Received/Current Regimen: Received loading dose of 2gm iv 11.06.19 @0630. Labs: Sodium 135 mmol/L (136-145) L 11/06/19 05:34 Potassium 3.5 mmol/L (3.5-5.1) 11/06/19 05:34 Chloride 104 mmol/L (98-107) 11/06/19 05:34 Carbon Dioxide 25.0 mmol/L (21.0-32.0) 11/06/19 05:34 Anion Gap 6 (5-15) 11/06/19 05:34 BUN 5 mg/dL (7-18) L 11/06/19 05:34 Creatinine 0.61 mg/dL (0.55-1.02) 11/06/19 05:34 Est GFR (MDRD) Af Amer 133 mL/min (>60) 11/06/19 05:34 Est GFR (MDRD) Non-Af 110 mL/min (>60) 11/06/19 05:34 BUN/Creatinine Ratio 8.2 RATIO (10-20) L 11/06/19 05:34 Glucose 325 mg/dL (74-106) H 11/06/19 05:34 Weight used for dosin.2 kg Estimated Creatinine Clearance: >100ml/min Goal Trough: 15-20 mcg/mL Pharmacy Plan for Drug Dosing: Will begin 1gm iv q8h. Trough level ordered for 11.07.19 @0530. Pharmacy Service will continue to monitor and adjust dosing as required. Follow-Up Labs: Trough Vancomycin - 11.07.19 @0530 before 0600 dose
[2019-11-06] MEDS: Pregabalin 50 MG Capsule PO ×2 (08:24→21:55)
[2019-11-06] MEDS: Insulin Lispro 100 UNIT/ML INSULN.PEN SC ×4 (08:25→22:14)
[2019-11-06 08:26] LABS: Bedside Glucose 306 mg/dL (70-110)
[2019-11-06] MEDS: Insulin Lispro 100 UNIT/ML INSULN.PEN 8 UNIT SC ×4 (08:26→22:18)
--- NOTE | 2019-11-06 08:45 | RAD_ITS ---
STUDY: X-RAY - RIGHT KNEE REASON FOR EXAM: Female, 49 years old. RIGHT POPKITEAL FOSSA REDNESS AND SWELLING. PATIENT HAS EXTREME TENDERNESS AND PAIN IN HER RIGHT KNEE. UNABLE TO BEND IT VERY MUCH. TECHNIQUE: 4 view(s) of the knee. COMPARISON: None. FINDINGS: Normal visualized distal femur. Normal visualized proximal tibia and fibula. Normal proximal tibiofibular articulation. Normal medial femorotibial compartment. Normal lateral femorotibial compartment. Normal patellofemoral articulation. There is a soft tissue prominence in the suprapatellar region suggesting a trace volume joint effusion. The soft tissue structures are unremarkable. RAD/Knee 3 Views IMPRESSION: Trace joint effusion. No fracture or malalignment. No destructive bony process. Electronically Signed: Good Abreu MD (Brooks) at 12:20 EST , Service support ,
[2019-11-06] MEDS: oxyCODONE 5 MG Tablet PO ×2 (09:51→22:31)
--- NOTE | 2019-11-06 10:14 | VDLE_ITS ---
Reason For Study: RLE PAIN RIGHT GSV is normal. CFV is compressible, spontaneous, phasic, competent and demonstrates normal augmentation. FV is compressible, spontaneous, phasic, competent and demonstrates normal augmentation. POP V is compressible, spontaneous, phasic, competent and demonstrates normal augmentation. T/P Trunk is compressible. PTV is compressible. RT PerV is compressible. Procedure Exam performed portable in patient room. The exam was diagnostic. A preliminary report was called and/or faxed to [facility]. Interpretation Summary There is no evidence of right lower extremity deep vein thrombosis. Right great saphenous vein appears patent and compressible segmentally. Ordering Physician: Maribel Barrera Referring Physician: Janay Canchola Performed By: Natasha Arboleda, EFREN, RVT
[2019-11-06 11:25] LABS: Bedside Glucose 315 mg/dL (70-110)
--- NOTE | 2019-11-06 11:40 | CASEMGMT ---
RN CM Face to Face with patient for initial transition planning/care coordination assessment. RN CM introduced self and role at [facility]. Patient lying in bed, alert and oriented. Patient willing to participate in assessment and is able to answer all questions appropriately. Care providers, pharmacy, and demographics verified. Patient wishes to discharge home, would like HHC pending course of treatment. Patient states she has no further needs or concerns at this time. CM to follow for discharge planning needs that may arise. PCP: Jesika Specialists: Psychiatry at [facility] Preferred Pharmacy: [facility] Insurance: [employer] Prescription Benefit: yes Living Will/HPOA: yes, sister Jennifer Díaz LNOK: significant other, daughter, son Living Arrangements: patient lives with son and significant other in 2 story home. Transportation: self, significant other DME/HHC: Patient has shower chair, BSC, walker, rollator. Patient has had [facility] in the past. Disposition Plan: Patient to discharge home with family support and follow-up plans in place. Will monitor for need for HHC pending course of treatment. Josefa VILLALOBOS, RN, CM
--- NOTE | 2019-11-06 11:42 | MRI_ITS ---
STUDY: MRI RIGHT KNEE WITH AND WITHOUT CONTRAST REASON FOR EXAM: Lateral right knee pain for one week, evaluate right knee abscess from cat scratch 3 months ago. TECHNIQUE: Standardized fat and water weighted pulse sequences were obtained in all 3 orthogonal planes before and after intravenous administration of 15 mL of Dotarem. COMPARISON: Radiographs 11/06/2019. FINDINGS: Normal medial meniscus. There is mild arthrosis of the medial femorotibial compartment with mild irregularity of the articular cartilage of the medial femoral condyle (T2 sagittal image 22). Normal medial femoral condyle and tibial plateau. Normal medial collateral ligamentous complex (MCL). Normal distal semimembranosus, gracilis and semitendinosus tendons. Normal lateral meniscus. Normal hyaline cartilage of the lateral femorotibial compartment. Normal lateral femoral condyle and tibial plateau. Normal proximal tibiofibular articulation. Normal lateral collateral (fibular) ligament. Normal popliteus tendon. Normal biceps femoris tendon. Normal anterior cruciate ligament (ACL). Normal posterior cruciate ligament (PCL). There is mild lateral tilt of the patella without patellar subluxation (T2 axial image 11). There is a subchondral lesion of the inferior aspect of the apex of the femoral trochlea (proton density sagittal image 29) measuring approximately 0.5 cm in length with a defect of the overlying articular cartilage and mild bone edema of the lesion (T2 sagittal image 18). There is a subchondral cyst of the medial patellar facet. Normal medial and lateral patellar retinaculum. Normal visualized quadriceps tendon. Normal patellar tendon. Normal Hoffa''s fat pad. There is a small joint effusion. There is a thin medial patellar plica. There is epimysial sheath edema of the distal vastus medialis muscle (T2 coronal images 19-22). There is a fluid collection at the superficial aspect of the biceps femoris muscle (T2 coronal images 7-14) measuring 3.3 x 1.3 x 4.2 cm (AP x transverse x length) with a thin contrast-enhancing wall (postcontrast T1 axial images 11-17) consistent with an abscess. There is mild edema in the distal biceps femoris muscle (T2 sagittal images 8-10) with mild contrast enhancement (postcontrast T1 sagittal images 7, 8) suggestive of myositis. There is edema in the subcutis adipose space especially at the lateral aspect of the knee. There is a small enchondroma in the distal femoral metaphysis (T2 coronal images 23, 24) measuring 0.7 cm in transverse dimension. MRI/Lower Ext Joint Only W/WO Cont IMPRESSION: Abscess at the superficial aspect of the distal biceps femoris muscle and mild biceps femoris myositis. Mild arthrosis of the medial femorotibial compartment. Subchondral lesion of the inferior apex of the femoral trochlea. Epimysial strain of the distal vastus medialis muscle. Mild lateral tilt of the patella. Small joint effusion. Small enchondroma in the distal femur. Electronically Signed: Edin Gray MD at 13:59 EST Tel , Service support ,
--- NOTE | 2019-11-06 13:04 | PN_ITS ---
Patient Problems: Active and Suspected Problems Cellulitis (Acute) Subjective: Seen and examined. She was admitted with a complaint of nurse, swelling and tenderness of the back of her right knee. She has been managed for cellulitis and possible abscess of the right posterior fossa. Patient complains of pain on the back of the right knee and states pain is worsening. She denies any trauma to that area. She denies any fever or chills. Review of systems otherwise negative. Labs and vitals reviewed. She is afebrile and she has no leukocytosis with WBC being only 2.8. Vitals/I&O's: Vital Signs Temp Pulse Resp BP Pulse Ox 98.1 F 80 16 126/84 H 96 11/06/19 08:12 11/06/19 08:12 11/06/19 08:12 11/06/19 08:12 11/06/19 08:12 Oxygen Delivery Method Room Air Weight: 181 lb 3.52 oz Body Mass Index (BMI) 27.5 Finger Stick Blood Glucose 128 Intake and Output for Last 24 Hours 11/04/19 11/05/19 11/06/19 23:59 23:59 23:59 Intake Total 702 / 702 Output Total 350 / 350 Balance 352 / 352 General: Alert, Oriented x3, Cooperative, No apparent distress HEENT: Atraumatic, PERRLA, EOMI, Normocephalic Oral: Moist Mucosa Neck: Supple, No JVD, Negative Carotid Bruits Lungs: Clear to auscultation, Normal air movement, No rhonchi, No wheeze Cardiovascular: Regular rate, Regular Rhythm, Normal S1, Normal S2, No murmurs Abdomen: Bowel Sounds Present, Soft, Non Tender, Non-Distended, No Hepato- splenomegaly Extremities: No clubbing, No cyanosis, No edema, Capillary Refill Less than 3 Seconds Skin: - - erythema, tenderness and swelling in the popliteal fossa of the right knee. erythema is extensive, involving the back of the right leg; has a firm, indurated area, ~ [id number] in the posterior knee fossa. No fluctuant areas palpated Musculoskeletal: No Muscle Wasting, Tenderness - tenderness in popliteal fossa Lymphatic: No Cervical, Supraclavicular, or Inguinal Adenopathy Neurological: Cranial nerves II-XII grossly intact, Neuro grossly intact Psych/Mental Status: Normal Affect, Appropriate, Anxious, Alert and oriented to time, place, person, mood and affect Laboratory Results 11/06/19 05:34: Lactic Acid 1.2 11/06/19 05:34: WBC 2.8 L, RBC 3.40 L, Hgb 10.7 L, Hct 32.2 L, MCV 94.7, MCH 31.5, MCHC 33.2, RDW Std Deviation 47.2 H, RDW Coeff of Valentina 13.8, Plt Count 91 L , MPV 10.2, Immature Gran % (Auto) 0.400, Neut % (Auto) 70.4 H, Lymph % (Auto) 15.8 L, Wirt % (Auto) 10.2 H, Eos % (Auto) 2.1, Baso % (Auto) 1.1 H, Absolute Neuts (auto) 2.0, Absolute Lymphs (auto) 0.45 L, Nucleated RBC % 0, Differential Comment SCANNED, Diff Path Review March, Platelet Estimate SLT DEC, Plt Morphology Comment LARGE 11/06/19 05:34: Sodium 135 L, Potassium 3.5, Chloride 104, Carbon Dioxide 25.0, Anion Gap 6, BUN 5 L, Creatinine 0.61, Estim Creat Clear Calc 110.06, Est GFR (MDRD) Af Amer 133, Est GFR (MDRD) Non-Af 110, BUN/Creatinine Ratio 8.2 L, Glucose 325 H, Calcium 7.3 L 11/06/19 05:34: PT 14.3, INR 1.1 11/06/19 07:58: POC Glucose 306 H 11/06/19 11:10: POC Glucose 315 H Diagnostic Data Knee X-Ray 11/06/19 08:45 IMPRESSION: Trace joint effusion. No fracture or malalignment. No destructive bony process. Electronically Signed: Good Abreu MD (Brooks) at 12:20 EST , Service support , Current Medications Acetaminophen (Tylenol) 650 mg PO Q6H PRN PRN PRN Reason: Pain Score 1-3/Temp > 100.7 F Albuterol Sulfate (Ventolin Aerosols) 2.5 mg INHALATION Q2H PRN PRN PRN Reason: sob/wheezing Baclofen (Lioresal) 10 mg PO QHS YONI Carbamazepine (Tegretol Liquid) 100 mg PO BID YONI Dicyclomine HCl (Bentyl) 10 mg PO ACHS YONI Last Admin: 11/06/19 11:12 Dose: 10 mg Documented by: Ergocalciferol (Vitamin D) 50,000 unit PO SA YONI Fluticasone Propionate (Flonase Nasal [place]) 1 spray NASAL BID PRN Fluvoxamine Maleate (Luvox) 100 mg PO QHS YONI Furosemide (Lasix) 80 mg PO DAILY [facility] Last Admin: 11/06/19 08:14 Dose: 80 mg Documented by: Glucagon () 1 mg IM .X1 PRN PRN Reason: Hypoglycemia Sodium Chloride () 250 mls @ 15 mls/hr IV .[id number] PRN PRN Reason: Saline Flush Last Infusion: 11/06/19 10:33 Dose: 15 mls/hr Documented by: Sodium Chloride () 250 mls @ 15 mls/hr IV .[id number] PRN PRN Reason: Additional IVPB Infusion Dextrose (Dextrose 10%-Water) 250 mls @ 999 mls/hr IV .Q16M PRN; Protocol PRN Reason: HYPOGLYCEMIA Piperacillin Sod/Tazobactam (Sod 3.375 gm/ Sodium Chloride) 50 mls @ 12.5 mls/hr IV Q8 YONI Vancomycin IV Pharmacy to Dose (1,250 ea/ Sodium Chloride) 500 mls @ 250 mls/hr IV PRN PRN; Protocol PRN Reason: RX TO DOSE Vancomycin HCl (Vancomycin) 1,000 mg in 200 mls @ 200 mls/hr IV Q8H [facility] Insulin Glargine (Lantus (Bkc)) 20 units SC DAILY [facility] Last Admin: 11/06/19 08:26 Dose: 20 units Documented by: Insulin Human Lispro (Humalog Kwikpen (Bkc)) 0 unit SC ACHS & 3AM YONI; Protocol Last Admin: 11/06/19 11:12 Dose: 6 units Documented by: Insulin Human Lispro (Humalog Kwikpen (Bkc)) 8 unit SC ACHS YONI Last Admin: 11/06/19 11:12 Dose: 8 units Documented by: Lactulose (Chronulac, Cephulac) 20 gm PO TID [facility] Last Admin: 11/06/19 05:59 Dose: 20 gm Documented by: Magnesium Oxide (Mag-Ox 400) 400 mg PO BID [facility] Last Admin: 11/06/19 08:14 Dose: 400 mg Documented by: Morphine Sulfate () 2 mg IV Q3H PRN PRN PRN Reason: Pain Score 6-10/10 Last Admin: 11/06/19 11:17 Dose: 2 mg Documented by: Non-Formulary Medication (Ursodiol) 300 mg PO BID [facility] Ondansetron HCl (Zofran) 4 mg IV Q8H PRN PRN PRN Reason: NAUSEA/VOMITING Last Admin: 11/06/19 06:46 Dose: 4 mg Documented by: Oxycodone HCl (Oxyir) 5 mg PO Q4H PRN PRN PRN Reason: Pain Score 4-5/10 Last Admin: 11/06/19 09:51 Dose: 5 mg Documented by: Pantoprazole Sodium (Protonix) 40 mg PO DAILY [facility] Last Admin: 11/06/19 08:15 Dose: 40 mg Documented by: Potassium Chloride (K-Dur) 20 meq PO BID [facility] Last Admin: 11/06/19 08:14 Dose: 20 meq Documented by: Pregabalin (Lyrica) 50 mg PO BID [facility] Last Admin: 11/06/19 08:24 Dose: 50 mg Documented by: Rifaximin (Xifaxan) 550 mg PO BID [facility] Last Admin: 11/06/19 08:16 Dose: 550 mg Documented by: Senna/Docusate Sodium (Senokot-S, Vy-Colace) 1 tablet PO DAILY PRN PRN PRN Reason: Constipation Sodium Chloride () 10 - 40 ml IV UD PRN PRN Reason: SALINE FLUSH Last Admin: 11/06/19 05:32 Dose: 10 ml Documented by: Spironolactone (Aldactone) 100 mg PO DAILY [facility] Last Admin: 11/06/19 08:15 Dose: 100 mg Documented by: Sucralfate (Carafate) 1 gm PO 1HR_ACHS [facility] Last Admin: 11/06/19 11:11 Dose: 1 gm Documented by: Medical Necessity - Tobacco Use Smoking Status: Never smoker Assessment/Plan All Active Problems Cellulitis (Acute) 1. Right knee popliteal fossa cellulitis * on IV vancomycin and zosyn * xray of the right knee obtained this morning showed trace joint effusion and no fracture or malalignment, and no destructive bony process * on morphine and oxycodone prn for pain * orthopedic surgery consulted- per their recommendation, will get MRI of the Right knee with and without contrast to evaluate for abscess * MRI showed large fluid collection in right popliteal fossa, per discussion with DR Grajeda. Official MRI reading is pending. * for surgery by DR Grajeda tomorrow. * get DUplex USG of the RLE to rule out DVT * 2. Type 2 diabetes mellitus * Blood sugar was 315 on admission. * Insulin sliding scale. Accuchecks ACHS. Continue Lantus at 20 units daily. * 3. Autoimmune hepatitis with cirrhosis * stable * on lasix and spironolactone * 4. DVT prophylaxis: heparin q8. hold heparin oa/ of surgery tomorrow. Code Visit Inpatient E&M: 46961 [facility] Hosp L3
[2019-11-06 13:56] LABS: Bedside Glucose 332 mg/dL (70-110)
[2019-11-06 14:13] LABS: Pathologist Review Reviewed
[2019-11-06] MEDS: Vancomycin IV 1,000 MG/200 ML BAG 200 MG IV ×2 (14:29→21:34)
[2019-11-06] MEDS: carBAMazepine 200 MG/10 ML UDC 100 MG PO ×2 (14:40→22:07)
[2019-11-06 14:43] VITALS: BP 133/71; PULSE 84; RESP 16; TEMP 36.7; O2SAT 98
--- NOTE | 2019-11-06 15:16 | CT_ITS ---
STUDY: CT ABDOMEN WITH CONTRAST REASON FOR EXAM: Female, 49 years old. LUQ pain, hx enlarged spleen RADIATION DOSAGE (If Supplied By Facility): CTDIvol = ( 13.92 ) mGy, DLP = ( 672.18 ) mGycm TECHNIQUE: Transaxial images were obtained post I.V. administration of 100ML ISOVUE 300, and without oral contrast. Sagittal and coronal images were reconstructed. Individualized dose optimization techniques were used for this CT. COMPARISON: None. FINDINGS: There are small bibasilar pleural effusions and bibasilar atelectasis. The visualized portions of the heart are within normal limits. A TIPS hepatic shunt is noted. The liver is small in size and nodular in contour consistent with cirrhosis. There is non-visualization of the gallbladder, which may be secondary to either contraction or a prior cholecystectomy. Splenomegaly is present. Splenic varices are noted. Normal pancreas. Normal bilateral adrenal glands. There is a subcentimeter right renal cyst. There is a 1.9 cm left renal cyst. Normal visualized stomach. Normal small intestine. Normal colon. There are surgical clips in the region of the appendix consistent with a prior appendectomy. There is minimal ascites of the right paracolic gutter. There is diffuse fatty stranding throughout the abdomen. There are calcified plaques of the abdominal aorta. Normal inferior vena cava. There are scattered shotty retroperitoneal nodes. Normal abdominal wall. There are degenerative changes of the lumbar spine. CT/Abdomen WITH IV Contrast IMPRESSION: 1. Small bibasilar pleural effusions and bibasilar atelectasis. 2. A TIPS hepatic shunt is noted. The liver is small in size and nodular in contour consistent with cirrhosis. 3. Splenomegaly is present. Splenic varices are seen. 4. Bilateral renal cysts. 5. Minimal ascites of the right paracolic cutter. Diffuse fatty stranding is seen throughout the abdomen. 6. Scattered shoddy retroperitoneal nodes. Electronically Signed: Douglas Sadler MD at 18:59 EST , Service support ,
--- NOTE | 2019-11-06 15:18 | PCM.HP.ID ---
Problem List (1) Cellulitis Status: Acute Reason for Consult: RLE infection Consulted by: Dr. Barrera History of Present Illness: The patient is a 49 year old F with h/o autoimmune hepatitis, cirrhosis, DM, presented with 10 days of RLE pain, swelling, warmth behind knee. Treated for URI with bactrim at the start of the month, had some enlarged axillary lymph nodes, fatigue, fever, not feeling well. Sx improved, but once leg started having problems was seen back at urgent care, given keflex. No trauma except for cat scratch on calf about 3 months ago. Pain in leg became severe. Over past 1-2 days, developed moderate LUQ pain. No trauma to abd. Seen at [place] ED, transferred here. MRI done, admitted on vanc/zosyn. Pain improved with pain meds. Full ROS performed and neg except as noted above. - Medical History Past Medical History (Chronic Problems): Chronic Problems Autoimmune hepatitis (Chronic) Diabetes mellitus (Chronic) Liver cirrhosis (Chronic) Reilly thyroiditis (Chronic) Autoimmune hepatitis (Chronic) Schizoaffective disorder (Chronic) Bipolar disorder (Chronic) Splenomegaly (Chronic) Allergies/Adverse Reactions: Allergies adhesive Allergy (Verified 01/09/19 07:10) Rash escitalopram oxalate [From Lexapro] Allergy (Verified 01/09/19 07:10) blindness gabapentin [From Neurontin] Allergy (Verified 01/09/19 07:10) Alan Jez's Syndrome lamotrigine [From Lamictal] Allergy (Verified 01/09/19 07:10) Blindness Preservatives Allergy (Uncoded 01/09/19 07:10) passed out, lungs deflated Preservatives in various foods including packaged gladys cheese, lettuce, and seafood. sour cream Allergy (Uncoded 01/09/19 07:10) Anaphylaxis Home Medications: Ambulatory Orders Medication Instructions Recorded Potassium Chloride [Klor-Con M20] 20 meq PO BID 09/25/15 Albuterol Inhaler [Ventolin Hfa] 2 puff INHALATION Q4H PRN PRN 02/16/16 Furosemide [Lasix] 80 mg PO DAILY 03/14/17 Insulin Lispro [Humalog] 12 units SC ACHS 03/14/17 Magnesium Oxide [Magnesium] 400 mg PO BID 03/14/17 Spironolactone [Aldactone] 100 mg PO DAILY 04/28/17 traMADol [Ultram] 50 mg PO Q6H PRN PRN 04/28/17 Sennosides/Docusate Sodium [Senna 1 each PO DAILY PRN 04/29/17 Plus Tablet] Fluvoxamine Maleate [Luvox] 100 mg PO QHS 11/04/17 Rifaximin [Xifaxan] 550 mg PO BID 11/04/17 Ursodiol [Actigall] 300 mg PO BID 11/04/17 Carbamazepine [Carbatrol] 100 mg PO BID 08/19/18 Cholecalciferol (Vitamin D3) 50,000 unit PO SA 08/19/18 [Vitamin D3] Dicyclomine HCl [Bentyl] 10 mg PO [facility] 08/19/18 Fluticasone Propionate [Flonase 15.8 ml NS BID PRN 08/19/18 Allergy Relief] Sucralfate [Carafate] 1 gm PO [facility] 08/19/18 Omeprazole [Prilosec] 40 mg PO DAILY #0 08/20/18 Baclofen 10 mg PO QHS 01/09/19 Lactulose [Chronulac] 20 gm PO TID 01/09/19 Insulin Degludec [Tresiba 20 unit SQ DAILY #0 01/10/19 Flextouch U-100] Insulin Lispro [Humalog KwikPen] See Protocol SC [facility] insuln.pen 01/10/19 Pregabalin [Lyrica] 50 mg PO BID 11/06/19 - Social History Tobacco Use: non-smoker Vital Signs Temp Pulse Resp BP Pulse Ox 98.1 F 84 16 133/71 H 98 11/06/19 14:43 11/06/19 14:43 11/06/19 14:43 11/06/19 14:43 11/06/19 14:43 Oxygen Delivery Method Room Air Weight: 82.2 kg Body Mass Index (BMI) 27.5 Finger Stick Blood Glucose 128 Laboratory Tests Past 24 Hrs 11/06/19 11/06/19 11/06/19 05:34 05:34 05:34 WBC 2.8 L RBC 3.40 L Hgb 10.7 L Hct 32.2 L MCV 94.7 MCH 31.5 MCHC 33.2 RDW Std Deviation 47.2 H RDW Coeff of Valentina 13.8 Plt Count 91 L MPV 10.2 Immature Gran % (Auto) 0.400 Neut % (Auto) 70.4 H Lymph % (Auto) 15.8 L [place] % (Auto) 10.2 H Eos % (Auto) 2.1 Baso % (Auto) 1.1 H Absolute Neuts (auto) 2.0 Absolute Lymphs (auto) 0.45 L Nucleated RBC % 0 Differential Comment SCANNED Diff Path Review Reviewed Platelet Estimate SLT DEC Plt Morphology Comment LARGE PT INR Sodium 135 L Potassium 3.5 Chloride 104 Carbon Dioxide 25.0 Anion Gap 6 BUN 5 L Creatinine 0.61 Estim Creat Clear Calc 110.06 Est GFR (MDRD) Af Amer 133 Est GFR (MDRD) Non-Af 110 BUN/Creatinine Ratio 8.2 L Glucose 325 H Lactic Acid 1.2 Calcium 7.3 L 11/06/19 05:34 WBC RBC Hgb Hct MCV MCH MCHC RDW Std Deviation RDW Coeff of Valentina Plt Count MPV Immature Gran % (Auto) Neut % (Auto) Lymph % (Auto) [place] % (Auto) Eos % (Auto) Baso % (Auto) Absolute Neuts (auto) Absolute Lymphs (auto) Nucleated RBC % Differential Comment Diff Path Review Platelet Estimate Plt Morphology Comment PT 14.3 INR 1.1 Sodium Potassium Chloride Carbon Dioxide Anion Gap BUN Creatinine Estim Creat Clear Calc Est GFR (MDRD) Af Amer Est GFR (MDRD) Non-Af BUN/Creatinine Ratio Glucose Lactic Acid Calcium - Other Studies Radiology: [] reviewed Other Studies: [] Route of nutrition/ use of supplements: [] Nutritional Intake: [] IV Site: [] Hill Catheter: [] - Physical Exam General: Alert, Oriented x3, Cooperative, No apparent distress HEENT: Atraumatic, PERRLA, EOMI Neck: Supple, No Nodes Lungs: Clear to auscultation, Normal air movement Cardiovascular: Regular rate, Regular Rhythm, Murmur Abdomen: Soft, Non-Distended, Tender - LUQ tenderness Extremities: Edema - mild RLE edema Skin: Rash Present - pain, warmth, redness, swelling behind R knee IV Site: Peripheral, without redness Neurological: Cranial nerves II-XII grossly intact - Assessment/Plan Antibiotics: [] Assessment/Plan: [] Active and Suspected Problems Cellulitis (Acute) Concern for RLE abscess. MRI pending. No fever, no leukocytosis here. Also with acute onset of moderate LUQ pain with h/o cirrhosis and splenomegaly. Will check CT abd/pelvis. Cont vanc/zosyn for now. If no abnormality in abd, could narrow abx to vanc/unasyn for leg coverage. May need surg I&D of leg. If necrotizing fasciitis or gas gangrene seen on MRI, would add clinda. Will follow, thank you.
[2019-11-06 17:21] LABS: Bedside Glucose 229 mg/dL (70-110)
[2019-11-06 21:37] VITALS: BP 129/76; PULSE 84; RESP 16; TEMP 36.7; O2SAT 96
[2019-11-06] MEDS: fluvoxaMINE Maleate 50 MG Tablet 100 MG PO (21:46)
[2019-11-06] MEDS: Baclofen 10 MG Tablet PO (21:47)
[2019-11-06] MEDS: Ursodiol 250 MG Tablet PO (21:55)
[2019-11-06 22:00] VITALS: PULSE 84; RESP 18; O2SAT 96
[2019-11-06 23:56] LABS: Bedside Glucose 280 mg/dL (70-110)
[2019-11-07] VITALS (14 sets, daily range): BP systolic 124–152; BP diastolic 66–83; PULSE 74–96; RESP 16–18; TEMP 36.3–37; O2SAT 91–98; BMI 27.5
[2019-11-07] MEDS: Insulin Lispro 100 UNIT/ML INSULN.PEN SC ×5 (02:53→21:21)
[2019-11-07] MEDS: Ondansetron 4 MG/2 ML Vial IV ×3 (03:21→22:32)
[2019-11-07 03:51] LABS: Bedside Glucose 293 mg/dL (70-110)
[2019-11-07] MEDS: Vancomycin IV 1,000 MG/200 ML BAG 200 MG IV ×3 (04:39→21:05)
[2019-11-07] MEDS: Morphine 2 MG/ML Syringe IV (04:50)
[2019-11-07 05:12] LABS: Vancomycin, Trough Level 16.5 ug/mL (5.0-15.0)
--- NOTE | 2019-11-07 06:00 | EKG12_ITS ---
Test Reason : Blood Pressure : / mmHG Vent. Rate : 067 BPM Atrial Rate : 067 BPM P-R Int : 164 ms QRS Dur : 106 ms QT Int : 444 ms P-R-T Axes : 028 -22 021 degrees QTc Int : 469 ms Normal sinus rhythm Normal ECG When compared with ECG of 07-NOV-2019 05:46, MANUAL COMPARISON REQUIRED, DATA IS UNCONFIRMED Confirmed by DEDE ZAMBRANO, ROSA ([id number]), video effects editor SHREYA KELLY ([id number]) on 11/10/2019 9:47:41 AM Referred By: MARIA TERESA Confirmed By:ROSA AGUAYO MD
--- NOTE | 2019-11-07 06:04 | PCM.RX.CS ---
Consult Pharmacy has been consulted to manage selected antiobiotic: Vancomycin Type of Consult: Follow-up Labs: Sodium 135 mmol/L (136-145) L 11/06/19 05:34 Potassium 3.5 mmol/L (3.5-5.1) 11/06/19 05:34 Chloride 104 mmol/L (98-107) 11/06/19 05:34 Carbon Dioxide 25.0 mmol/L (21.0-32.0) 11/06/19 05:34 Anion Gap 6 (5-15) 11/06/19 05:34 BUN 5 mg/dL (7-18) L 11/06/19 05:34 Creatinine 0.61 mg/dL (0.55-1.02) 11/06/19 05:34 Est GFR (MDRD) Af Amer 133 mL/min (>60) 11/06/19 05:34 Est GFR (MDRD) Non-Af 110 mL/min (>60) 11/06/19 05:34 BUN/Creatinine Ratio 8.2 RATIO (10-20) L 11/06/19 05:34 Glucose 325 mg/dL (74-106) H 11/06/19 05:34 Vancomycin Trough 16.5 ug/mL (5.0-15.0) H 11/07/19 04:40 Weight used for dosin.2 kg Goal Trough: 15-20 mcg/mL Pharmacy Plan for Drug Dosing: Pharmacy Service will continue to monitor and adjust dosing as required. TROUGH 16.5 NO CHANGES NEXT TROUGH 11/11 @ 0430 Follow-Up Labs: Trough Vancomycin Labs to be done on [date and time ordered]: 11/11 @ 0502
[2019-11-07 06:36] LABS: Absolute Lymphocyte Count 0.46 X10^3/uL (0.83-4.51); Absolute Neutrophil Count 2.7 X10^3/uL (2.0-7.7); Basophil# 0.04 X10^3/uL; Basophil% 1.1 % (0-1); Eosinophil# 0.06 X10^3/uL; Eosinophils% 1.7 % (0-5); Hematocrit 32.5 % (37-47); Hemoglobin 10.5 g/dL (12.0-15.0); Lymphocyte # 0.46 X10^3/ul (4.0); Lymphocyte % 12.7 % (19-41); Mean Corp Hgb Conc 32.3 g/dL (32-36); Mean Corpuscular Hgb 31.1 pg (27.0-32.0); Mean Corpuscular Volume 96.2 fL (81-99); Mean Platelet Vol. 9.8 fl (6.2-12.0); NRBC Flagged by Analyzer 0 % (0-5); Neutrophil # 2.66 X10^3/uL (2.7-7.7); Neutrophil % 73.2 % (47-70); POSITIVE DIFFERENTIAL YES; Platelet Count 108 K/mm3 (150-450); RBC Distribution Width CV 13.9 % (11.6-14.6); RBC Distribution Width SD 48.9 fl (35.1-43.9); Red Blood Count 3.38 M/mm3 (4.2-5.4); White Blood Count 3.6 K/mm3 (4.4-11.0)
[2019-11-07 06:45] LABS: Differential Indicated SCAN CRITERIA MET; International Normalized Ratio 1.1; Prothrombin Time (Protime)PT. 14.3 SECONDS (11.7-14.9)
[2019-11-07 06:46] LABS: Partial Thromboplast Time 29.5 Seconds (24.1-36.2)
[2019-11-07 06:51] LABS: Bedside Glucose 284 mg/dL (70-110)
[2019-11-07 06:59] LABS: ALB/GLOB Ratio 0.4 RATIO (0.9-2.4); AST(SGOT) 75 U/L (15-37); Alanine Aminotransfer ALT/SGPT 41 U/L (13-56); Albumin, Serum 2.1 g/dL (3.2-5.0); Alkaline Phosphatase 611 U/L (45-117); Anion Gap 6 (5-15); BUN 6 mg/dL (7-18); BUN/Creat Ratio 8.1 RATIO (10-20); Calcium,Total 7.9 mg/dL (8.5-10.1); Chloride 103 mmol/L (98-107); Creatinine, Serum 0.74 mg/dL (0.55-1.02); EST Glomerular Filtration Rate 88 mL/min (>60); Est Glom Filt Rate - Afr Amer 107 mL/min (>60); Estimated Creatinine Clearance 90.73 ml/min; Globulin 4.8 g/dL (2.2-4.2); Glucose 295 mg/dL (74-106); Magnesium 1.5 mg/dL (1.6-2.6); Potassium 3.8 mmol/L (3.5-5.1); Protein, Total 6.9 g/dL (6.4-8.2); Sodium Level 137 mmol/L (136-145); Thyroid Stim Hormone (TSH) 1.98 uIU/mL (0.358-3.74)
--- NOTE | 2019-11-07 06:59 | CON.PCM_ITS ---
Reason for Consult Date of Consultation: 11/07/19 Reason for Consultation: right leg abscess History of Present Illness: The patient is a 49 year old F with history of poorly controlled diabetes and autoimmune hepatitis with cirrhosis of the liver presents today with right leg pain swelling in the posterior lateral knee/distal thigh. Patient notes that about 2 weeks ago she started to have GI issues with nausea and vomiting she presented to the emergency department was given antibiotics and IV fluids. She continued with her course of antibiotics and felt well after the IV fluids. However she proceeded to develop pain in the posterior lateral right leg. Subsequently she developed erythema and was placed on oral antibiotics. This was roughly 1 week ago. Despite being on the oral antibiotics reportedly Keflex patient continue to develop pain and swelling in the posterior knee. She presented again to the emergency department 2 nights ago and was transferred to [facility] for concerns of a abscess for infectious disease and surgical coverage. Since that time she is been started on Vanco and Zosyn and the erythema has decreased however there is a significant intense area of erythema today that has not resolved with the IV antibiotics. MRI was performed yesterday patient was noted to have significant abscess in the posterior lateral leg. She reports 7 out of 10 pain. Worse with weightbearing and motion of the knee. Her symptoms have improved while being on antibiotics. Past Medical History Past Medical History (Chronic Problems): Chronic Problems Autoimmune hepatitis (Chronic) Diabetes mellitus (Chronic) Liver cirrhosis (Chronic) Reilly thyroiditis (Chronic) Autoimmune hepatitis (Chronic) Schizoaffective disorder (Chronic) Bipolar disorder (Chronic) Splenomegaly (Chronic) Allergies adhesive Allergy (Verified 01/09/19 07:10) Rash escitalopram oxalate [From Lexapro] Allergy (Verified 01/09/19 07:10) blindness gabapentin [From Neurontin] Allergy (Verified 01/09/19 07:10) Alan Jez's Syndrome lamotrigine [From Lamictal] Allergy (Verified 01/09/19 07:10) Blindness Preservatives Allergy (Uncoded 01/09/19 07:10) passed out, lungs deflated Preservatives in various foods including packaged gladys cheese, lettuce, and seafood. sour cream Allergy (Uncoded 01/09/19 07:10) Anaphylaxis Home Medications: Ambulatory Orders Medication Instructions Recorded Potassium Chloride [Klor-Con M20] 20 meq PO BID 09/25/15 Albuterol Inhaler [Ventolin Hfa] 2 puff INHALATION Q4H PRN PRN 02/16/16 Furosemide [Lasix] 80 mg PO DAILY 03/14/17 Insulin Lispro [Humalog] 12 units SC [facility] 03/14/17 Magnesium Oxide [Magnesium] 400 mg PO BID 03/14/17 Spironolactone [Aldactone] 100 mg PO DAILY 04/28/17 traMADol [Ultram] 50 mg PO Q6H PRN PRN 04/28/17 Sennosides/Docusate Sodium [Senna 1 each PO DAILY PRN 04/29/17 Plus Tablet] Fluvoxamine Maleate [Luvox] 100 mg PO QHS 11/04/17 Rifaximin [Xifaxan] 550 mg PO BID 11/04/17 Ursodiol [Actigall] 300 mg PO BID 11/04/17 Carbamazepine [Carbatrol] 100 mg PO BID 08/19/18 Cholecalciferol (Vitamin D3) 50,000 unit PO SA 08/19/18 [Vitamin D3] Dicyclomine HCl [Bentyl] [address] [facility] 08/19/18 Fluticasone Propionate [Flonase 15.8 ml NS BID PRN 08/19/18 Allergy Relief] Sucralfate [Carafate] [address] [facility] 08/19/18 Omeprazole [Prilosec] 40 mg PO DAILY #0 08/20/18 Baclofen 10 mg PO QHS 01/09/19 Lactulose [Chronulac] 20 gm PO TID 01/09/19 Insulin Degludec [Tresiba 20 unit SQ DAILY #0 01/10/19 Flextouch U-100] Insulin Lispro [Humalog KwikPen] See Protocol [facility] insuln.pen 01/10/19 Pregabalin [Lyrica] 50 mg PO BID 11/06/19 Surgical History: - - Appendectomy, cholecystectomy, partial hysterectomy. 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, Depression [employer] History: dysfunctional uterine bld Lives: Spouse/ Significant Other Smoking Status: Never smoker Alcohol: None - *Family History Paternal History Items: - - father with heart attacks and strokes Sibling History Items: Hypertension, - - Her sister had hyperthyroidism Maternal History Items: Heart Disease - Her grandmother had heart failure, - - She reported her mother had low blood pressure Review of Systems Constitutional: Denies: Weight Change HEENT: Denies: Head Aches, Sinus Congestion, Sinus Drainage Cardiovascular: Denies: Chest Pain, Palpitations Respiratory: Denies: Cough, Shortness of breath at rest, Sputum production Gastrointestinal: Reports: Nausea. Denies: Abdominal Pain, Vomiting Genitourinary: Reports: Dysuria Musculoskeletal: Reports: Leg Pain. Denies: Joint Pain, Joint Tenderness Skin: Denies: Rash, Wounds Neurological: Denies: Numbness, Tingling, Focal weakness Psychiatric: Denies: Anxiety, Depression, Homicidal Ideations, Suicidal Ideations Hematologic/ Lymphatic: Denies: Easy Bruising, Easy Bleeding Patient Problems: Active and Suspected Problems Cellulitis (Acute) Objective: X-rays of the knee were reviewed showing no acute fractures, soft tissue swelling. MRI of the knee was reviewed. No radiology report is noted at this time however there is posterior lateral collection of fluid likely consistent with an abscess which appears to be superficial to the fascia. The underlying muscle does show edema which could be related to reactive edema versus myositis. No gas forming bubbles are appreciated. - Physical Exam Vitals/I&O's: Vital Signs Temp Pulse Resp BP Pulse Ox 98.2 F 80 16 136/66 H 95 11/07/19 06:31 11/07/19 06:31 11/07/19 06:31 11/07/19 06:31 11/07/19 06:31 Oxygen Delivery Method Room Air Weight: 181 lb 3.52 oz Body Mass Index (BMI) 27.5 Finger Stick Blood Glucose 128 Intake and Output for Last 24 Hours 11/05/19 11/06/19 11/07/19 23:59 23:59 23:59 Intake Total 1215 / 1855 1066.25 / 1066.25 Output Total 1150 / 1950 2175 / 2175 Balance 65 / -95 -1108.75 / -1108.75 General: Alert, Oriented x3, Cooperative HEENT: Atraumatic Extremities: - - Right lower extremity: Patient has a large 4 cm x 9 cm area of intense erythema. Previous outlined erythema appears to be decreasing. This causes discomfort with knee range of motion however knee itself is not painful with range of motion. Sensations intact light touch saphenous, sural, jones perficial peroneal, deep peroneal tibial nerves distally. Motor is intact dorsiflexion EHL plantar flexion knee flexion extension. Under this area of intense erythema there is induration and tenderness palpation. Laboratory Results 11/06/19 04:41: POC Glucose 332 H 11/06/19 05:34: Diff Path Review Reviewed 11/06/19 07:58: POC Glucose 306 H 11/06/19 11:10: POC Glucose 315 H 11/06/19 15:58: POC Glucose 229 H 11/06/19 22:11: POC Glucose 280 H 11/07/19 02:52: POC Glucose 293 H 11/07/19 04:40: Vancomycin Trough 16.5 H 11/07/19 06:27: WBC 3.6 L, RBC 3.38 L, Hgb 10.5 L, Hct 32.5 L, MCV 96.2, MCH 31.1, MCHC 32.3, RDW Std Deviation 48.9 H, RDW Coeff of Valentina 13.9, Plt Count 108 L, MPV 9.8, Immature Gran % (Auto) 0.300, Neut % (Auto) 73.2 H, Lymph % (Auto) 12.7 L, [place] % (Auto) 11.0 H, Eos % (Auto) 1.7, Baso % (Auto) 1.1 H, Absolute Neuts (auto) 2.7, Absolute Lymphs (auto) 0.46 L, Nucleated RBC % 0 11/07/19 06:27: Sodium Pending, Potassium Pending, Chloride Pending, Carbon Dioxide Pending, Anion Gap Pending, BUN Pending, Creatinine Pending, Est GFR (MDRD) Af Amer Pending, Est GFR (MDRD) Non-Af Pending, BUN/Creatinine Ratio Pending, Glucose Pending, Calcium Pending, Magnesium Pending, Total Bilirubin Pending, AST Pending, ALT Pending, Alkaline Phosphatase Pending, Total Protein Pending, Albumin Pending, TSH Pending 11/07/19 06:27: PT 14.3, INR 1.1, APTT 29.5 11/07/19 06:27: Phosphorus Pending 11/07/19 06:27: Hemoglobin A1c Pending 11/07/19 06:28: POC Glucose 284 H Current Medications Acetaminophen (Tylenol) 650 mg PO Q6H PRN PRN PRN Reason: Pain Score 1-3/Temp > 100.7 F Albuterol Sulfate (Ventolin Aerosols) 2.5 mg INHALATION Q2H PRN PRN PRN Reason: sob/wheezing Baclofen (Lioresal) 10 mg PO QHS [facility] Last Admin: 11/06/19 21:47 Dose: 10 mg Documented by: Carbamazepine (Tegretol Liquid) 100 mg PO BID [facility] Last Admin: 11/06/19 22:07 Dose: 100 mg Documented by: Dicyclomine HCl (Bentyl) 10 mg PO ACHS [facility] Last Admin: 11/07/19 05:04 Dose: Not Given Documented by: Ergocalciferol (Vitamin D) 50,000 unit PO [facility] Fluticasone Propionate (Flonase Nasal [place]) 1 spray NASAL BID PRN Fluvoxamine Maleate (Luvox) 100 mg PO QHS [facility] Last Admin: 11/06/19 21:46 Dose: 100 mg Documented by: Furosemide (Lasix) 80 mg PO DAILY [facility] Last Admin: 11/06/19 08:14 Dose: 80 mg Documented by: Glucagon () 1 mg IM .X1 PRN PRN Reason: Hypoglycemia Sodium Chloride () 250 mls @ 15 mls/hr IV .[id number] PRN PRN Reason: Saline Flush Last Admin: 11/07/19 06:25 Dose: 15 mls/hr Documented by: Sodium Chloride () 250 mls @ 15 mls/hr IV .[id number] PRN PRN Reason: Additional IVPB Infusion Dextrose (Dextrose 10%-Water) 250 mls @ 999 mls/hr IV .Q16M PRN; Protocol PRN Reason: HYPOGLYCEMIA Piperacillin Sod/Tazobactam (Sod 3.375 gm/ Sodium Chloride) 50 mls @ 12.5 mls/hr IV Q8 [facility] Last Admin: 11/07/19 06:19 Dose: 12.5 mls/hr Documented by: Vancomycin IV Pharmacy to Dose (1,250 ea/ Sodium Chloride) 500 mls @ 250 mls/hr IV PRN PRN; Protocol PRN Reason: RX TO DOSE Vancomycin HCl (Vancomycin) 1,000 mg in 200 mls @ 200 mls/hr IV Q8H [facility] Last Infusion: 11/07/19 05:39 Dose: Infused Documented by: Insulin Glargine (Lantus (Bkc)) 20 units SC DAILY [facility] Last Admin: 11/06/19 08:26 Dose: 20 units Documented by: Insulin Human Lispro (Humalog Kwikpen (Bk)) 0 unit SC ACHS & 3AM YONI; Protocol Last Admin: 11/07/19 06:29 Dose: 6 units Documented by: Insulin Human Lispro (Humalog Kwikpen ([facility])) 8 unit SC ACHS [facility] Last Admin: 11/06/19 22:18 Dose: 8 units Documented by: Lactulose (Chronulac, Cephulac) 20 gm PO TID [facility] Last Admin: 11/07/19 05:03 Dose: Not Given Documented by: Magnesium Oxide (Mag-Ox 400) 400 mg PO BID [facility] Last Admin: 11/06/19 21:48 Dose: 400 mg Documented by: Morphine Sulfate () 2 mg IV Q3H PRN PRN PRN Reason: Pain Score 6-10/10 Last Admin: 11/07/19 04:50 Dose: 2 mg Documented by: Ondansetron HCl (Zofran) 4 mg IV Q6H PRN PRN PRN Reason: NAUSEA/VOMITING Last Admin: 11/07/19 04:50 Dose: 4 mg Documented by: Oxycodone HCl (Oxyir) 5 mg PO Q4H PRN PRN PRN Reason: Pain Score 4-5/10 Last Admin: 11/06/19 22:31 Dose: 5 mg Documented by: Pantoprazole Sodium (Protonix) 40 mg PO DAILY [facility] Last Admin: 11/06/19 08:15 Dose: 40 mg Documented by: Potassium Chloride (K-Dur) 20 meq PO BID [facility] Last Admin: 11/06/19 21:47 Dose: 20 meq Documented by: Pregabalin (Lyrica) 50 mg PO BID [facility] Last Admin: 11/06/19 21:55 Dose: 50 mg Documented by: Rifaximin (Xifaxan) 550 mg PO BID [facility] Last Admin: 11/06/19 21:50 Dose: 550 mg Documented by: Senna/Docusate Sodium (Senokot-S, Vy-Colace) 1 tablet PO DAILY PRN PRN PRN Reason: Constipation Sodium Chloride () 10 - 40 ml IV UD PRN PRN Reason: SALINE FLUSH Last Admin: 11/06/19 22:46 Dose: 10 ml Documented by: Spironolactone (Aldactone) 100 mg PO DAILY [facility] Last Admin: 11/06/19 08:15 Dose: 100 mg Documented by: Sucralfate (Carafate) 1 gm PO 1HR_ACHS [facility] Last Admin: 11/07/19 05:04 Dose: Not Given Documented by: Ursodiol (Anthony) 250 mg PO BID [facility] Last Admin: 11/06/19 21:55 Dose: 250 mg Documented by: Assessment/Plan All Active Problems Cellulitis (Acute) Left lower extremity abscess. Abscess appears to be superficial to be fascia. There is some associated hamstring edema. Patient at this point has responded well to IV antibiotic therapy however she has a very localized area associated with the underlying collection of fluid/abscess that has not responded. Due to this patient would likely benefit from surgical evacuation of this area. I discussed the patient irrigation debridement of the abscess. We discussed risk and benefits including but not to blood loss, DVTs, PEs, nervous damage, infection, the risk of anesthesia bleeding loss of life. Patient understands that particularly in this area peroneal nerve is at risk. She also understands that depending on surgical wound we may need long-term wound care. My plan at this time based on the overlying soft tissues is likely primary closure with underlying drain however, this will be entirely dependent on intraoperative findings and help of the tissues. There is possibility that repeat debridements may be necessary. Patient demonstrates an understanding and is able to sign informed consent. She is on IV antibiotics on the floor. She is currently n.p.o. We will proceed with surgery this morning. ERIN [facility] Office:
[2019-11-07] MEDS: Insulin Lispro 100 UNIT/ML INSULN.PEN 8 UNIT SC ×4 (07:00→21:21)
[2019-11-07 07:05] LABS: Phosphorus 2.4 mg/dL (2.5-4.9)
[2019-11-07 07:07] LABS: Differential Comment SCANNED
--- NOTE | 2019-11-07 07:36 | NURSING ---
Dr Grajeda was on the floor coming out of patients room. I asked him if he wanted me to hold the 8u of scheduled Humalog since I had given her the 6u of sliding scale for blood sugar of 284. Dr Grajeda said to give the 8u scheduled because her blood sugar is up due to the infection. He said if she dropped they would just give her D50.
[2019-11-07 07:51] LABS: Bedside Glucose 255 mg/dL (70-110)
--- NOTE | 2019-11-07 08:37 | OP.PCM_ITS ---
Report of Operation Date of Procedure: 11/07/19 Pre-Operative Diagnosis: Right lower extremity posterior thigh abscess sup erficial to fascia Post-Operative Diagnosis: Right lower extremity posterior thigh abscess deep to fascia Surgery/Procedure Performed:: Irrigation debridement right thigh abscess Description of Surgical Findings:: The abscess had penetrated the fascia debridement went down through skin subtenons tissue fat fascia and muscle technical operations vice president: Raquel Galindo Type of Anesthesia:: General Anesthesiologist: Bill Tom Special Medications: Antibiotics on the floor Estimated Blood Loss (mL): 10 Fluids Replaced: 500 mL crystalloid Description of Procedure: Patient developed an abscess which was not responsive to IV antibiotics. MRI was performed. Abscess was identified. Based on this and patient's medical comorbidities we elected to proceed with irrigation debridement. Risk and benefits were discussed the patient has mentioned in the consultation by orthopedics. Patient was made n.p.o. and ready for surgery. Procedure: On the day of procedure patient's right leg was marked in the prepped area. She was brought back to the operating room where she was transferred the table in supine position. Anesthesia assumed control C-spine airway and remained controlled throughout remainder the procedure. Patient was anesthetized in the supine position. She was then placed in a sloppy lateral position using a beanbag. Once she was adequately positioned tourniquet was placed on the right upper thigh. Right lower extremity was prepped in a sterile fashion, all bony prominences had been identified and well-padded. While prepping the leg the surgeon and electrician assistant scrub. Upon reentering the room the right lower extremity was draped in a standard orthopedic fashion. Incision was marked out over the area of induration and most intense erythema. The leg was elevated what we call to timeout. Timeout was called and was agreed upon the side, the site, she did be performed, patient's identity and skin. Tourniquet was placed at the 250 mmHg. Incision was taken down to the skin. Blunt dissection down to the fatty tissues. We then pierced the abscess and encountered purulent fluid. This area was cultured with swabs and soft tissue. Once this was done the wound was aggressively debrided. Upon debriding the wound we noted that the fascia had been obliterated and the abscess was deepened to the muscular area. The fascia and muscle were oblique braided subcutaneous fatty layers were debrided. Once was done 3 L of normal saline were irrigated throughout the wound with low-pressure lavage. A drain was placed anterior to the incision. Skin was closed using nylon suture. Xeroform dressing was placed. Sterile compressive dressing was placed. Tourniquet was let down. Patient was placed back in the supine position. She was transferred to the hospital bed and then to the PACU in stable condition. Postoperative plan: Patient will continue with IV antibiotics per infectious disease. We will monitor the drain output and remove appropriately. Range of motion as tolerated activity as tolerated, weightbearing as tolerated. - Complications No intraoperative complications - Admit VTE Documentation VTE Present on Admission: No VTE Mechan Device Prophylaxis: SCD's, Thigh High KHUSHI Hose VTE Pharm Prophylaxis ordered?: Yes
[2019-11-07] MEDS: Lactated Ringers 1,000 ML 90 ML IV (09:09)
[2019-11-07 09:21] LABS: Bedside Glucose 217 mg/dL (70-110)
--- NOTE | 2019-11-07 10:39 | PN_ITS ---
Patient Problems: Active and Suspected Problems Cellulitis (Acute) Subjective: Patient seen and examined. She irrigated debridement of the right thigh abscess this morning. Patient seen after surgery. She was lethargic but arousable. Though she was sleeping calmly, on waking up, she immediately said her pain was rated at 9 out of 10. Review of symptoms otherwise negative. Labs and vitals reviewed. Vitals/I&O's: Vital Signs Temp Pulse Resp BP Pulse Ox 97.9 F 78 18 136/76 H 98 11/07/19 10:09 11/07/19 10:09 11/07/19 10:09 11/07/19 10:09 11/07/19 10:09 Oxygen Flow Rate (L/min) 3 Oxygen Delivery Method Nasal Cannula Weight: 181 lb 3.52 oz Body Mass Index (BMI) 27.5 Finger Stick Blood Glucose 217 Intake and Output for Last 24 Hours 11/05/19 11/06/19 11/07/19 23:59 23:59 23:59 Intake Total 1215 / 1855 1066.25 / 1066.25 Output Total 1150 / 1950 2178 / 2178 Balance 65 / -95 -1111.75 / -1111.75 General: Alert, Oriented x3, Cooperative, No apparent distress HEENT: Atraumatic, PERRLA, EOMI, Normocephalic Oral: Moist Mucosa Neck: Supple, No JVD, Negative Carotid Bruits Lungs: Clear to auscultation, Normal air movement, No rhonchi, No wheeze Cardiovascular: Regular rate, Regular Rhythm, Normal S1, Normal S2, No murmurs Abdomen: Bowel Sounds Present, Soft, Non Tender, Non-Distended, No Hepato- splenomegaly Extremities: No clubbing, No cyanosis, No edema, Capillary Refill Less than 3 Seconds Skin: - - Right knee wrapped in bandage. Musculoskeletal: No Muscle Wasting, right knee wrapped in bandage Lymphatic: No Cervical, Supraclavicular, or Inguinal Adenopathy Neurological: Cranial nerves II-XII grossly intact, Neuro grossly intact Psych/Mental Status: Normal Affect, Appropriate, Anxious, Alert and oriented to time, place, person, mood and affect Laboratory Results 11/06/19 04:41: POC Glucose 332 H 11/06/19 05:34: Diff Path Review Reviewed 11/06/19 11:10: POC Glucose 315 H 11/06/19 15:58: POC Glucose 229 H 11/06/19 22:11: POC Glucose 280 H 11/07/19 02:52: POC Glucose 293 H 11/07/19 04:40: Vancomycin Trough 16.5 H 11/07/19 06:27: WBC 3.6 L, RBC 3.38 L, Hgb 10.5 L, Hct 32.5 L, MCV 96.2, MCH 31.1, MCHC 32.3, RDW Std Deviation 48.9 H, RDW Coeff of Valentina 13.9, Plt Count 108 L, MPV 9.8, Immature Gran % (Auto) 0.300, Neut % (Auto) 73.2 H, Lymph % (Auto) 12.7 L, [place] % (Auto) 11.0 H, Eos % (Auto) 1.7, Baso % (Auto) 1.1 H, Absolute Neuts (auto) 2.7, Absolute Lymphs (auto) 0.46 L, Nucleated RBC % 0, Differential Comment SCANNED, Diff Path Review March11/07/19 06:27: Sodium 137, Potassium 3.8, Chloride 103, Carbon Dioxide 28.0, Anion Gap 6, BUN 6 L, Creatinine 0.74, Estim Creat Clear Calc 90.73, Est GFR (MDRD) Af Amer 107, Est GFR (MDRD) Non-Af 88, BUN/Creatinine Ratio 8.1 L, Glucose 295 H, Calcium 7.9 L, Magnesium 1.5 L, Total Bilirubin 2.10 H, AST 75 H, ALT 41, Alkaline Phosphatase 611 H, Total Protein 6.9, Albumin 2.1 L, Globulin 4.8 H, Albumin/Globulin Ratio 0.4 L, TSH 1.98 11/07/19 06:27: PT 14.3, INR 1.1, APTT 29.5 11/07/19 06:27: Phosphorus 2.4 L 11/07/19 06:27: Hemoglobin A1c 10.0 H 11/07/19 06:28: POC Glucose 284 H 11/07/19 07:39: POC Glucose 255 H 11/07/19 09:13: POC Glucose 217 H Current Medications Acetaminophen (Tylenol) 650 mg PO Q6H PRN PRN PRN Reason: Pain Score 1-3/Temp > 100.7 F Albuterol Sulfate (Ventolin Aerosols) 2.5 mg INHALATION Q2H PRN PRN PRN Reason: sob/wheezing Baclofen (Lioresal) 10 mg PO QHS [facility] Last Admin: 11/06/19 21:47 Dose: 10 mg Documented by: Carbamazepine (Tegretol Liquid) 100 mg PO BID [facility] [place] Last Admin: 11/06/19 22:07 Dose: 100 mg Documented by: Dicyclomine HCl (Bentyl) 10 mg PO ACHS [facility] [place] Last Admin: 11/07/19 05:04 Dose: Not Given Documented by: Ergocalciferol (Vitamin D) 50,000 unit PO SA [facility] [place] Fluticasone Propionate (Flonase Nasal [place]) 1 spray NASAL BID PRN Fluvoxamine Maleate (Luvox) 100 mg PO QHS [facility] [place] Last Admin: 11/06/19 21:46 Dose: 100 mg Documented by: Furosemide (Lasix) 80 mg PO DAILY [facility] [place] Last Admin: 11/06/19 08:14 Dose: 80 mg Documented by: Glucagon () 1 mg IM .X1 PRN PRN Reason: Hypoglycemia Sodium Chloride () 250 mls @ 15 mls/hr IV .[id number] PRN PRN Reason: Saline Flush Last Admin: 11/07/19 06:25 Dose: 15 mls/hr Documented by: Sodium Chloride () 250 mls @ 15 mls/hr IV .[id number] PRN PRN Reason: Additional IVPB Infusion Dextrose (Dextrose 10%-Water) 250 mls @ 999 mls/hr IV .Q16M PRN; Protocol PRN Reason: HYPOGLYCEMIA Piperacillin Sod/Tazobactam (Sod 3.375 gm/ Sodium Chloride) 50 mls @ 12.5 mls/hr IV Q8 [facility] [place] Last Admin: 11/07/19 06:19 Dose: 12.5 mls/hr Documented by: Vancomycin IV Pharmacy to Dose (1,250 ea/ Sodium Chloride) 500 mls @ 250 mls/hr IV PRN PRN; Protocol PRN Reason: RX TO DOSE Vancomycin HCl (Vancomycin) 1,000 mg in 200 mls @ 200 mls/hr IV Q8H [facility] [place] Last Infusion: 11/07/19 05:39 Dose: Infused Documented by: Lactated Ringer's () 1,000 mls @ 90 mls/hr IV .[id number] [facility] [place] Last Admin: 11/07/19 09:09 Dose: 90 mls/hr Documented by: Insulin Glargine (Lantus (Bk)) 20 units SC DAILY [facility] [place] Last Admin: 11/06/19 08:26 Dose: 20 units Documented by: Insulin Human Lispro (Humalog Kwikpen (Bk)) 0 unit SC ACHS & 3AM YONI; Protocol Last Admin: 11/07/19 06:29 Dose: 6 units Documented by: Insulin Human Lispro (Humalog Kwikpen ([facility])) 8 unit SC ACHS [facility] [place] Last Admin: 11/07/19 07:00 Dose: 8 units Documented by: Lactulose (Chronulac, Cephulac) 20 gm PO TID [facility] [place] Last Admin: 11/07/19 05:03 Dose: Not Given Documented by: Magnesium Oxide (Mag-Ox 400) 400 mg PO BID [facility] [place] Last Admin: 11/06/19 21:48 Dose: 400 mg Documented by: Morphine Sulfate () 2 mg IV Q3H PRN PRN PRN Reason: Pain Score 6-10/10 Last Admin: 11/07/19 04:50 Dose: 2 mg Documented by: Ondansetron HCl (Zofran) 4 mg IV Q6H PRN PRN PRN Reason: NAUSEA/VOMITING Last Admin: 11/07/19 04:50 Dose: 4 mg Documented by: Oxycodone HCl (Oxyir) 5 mg PO Q4H PRN PRN PRN Reason: Pain Score 4-5/10 Last Admin: 11/06/19 22:31 Dose: 5 mg Documented by: Pantoprazole Sodium (Protonix) 40 mg PO DAILY [facility] [place] Last Admin: 11/06/19 08:15 Dose: 40 mg Documented by: Potassium Chloride (K-Dur) 20 meq PO BID [facility] [place] Last Admin: 11/06/19 21:47 Dose: 20 meq Documented by: Pregabalin (Lyrica) 50 mg PO BID [facility] [place] Last Admin: 11/06/19 21:55 Dose: 50 mg Documented by: Rifaximin (Xifaxan) 550 mg PO BID [facility] [place] Last Admin: 11/06/19 21:50 Dose: 550 mg Documented by: Senna/Docusate Sodium (Senokot-S, Vy-Colace) 1 tablet PO DAILY PRN PRN PRN Reason: Constipation Sodium Chloride () 10 - 40 ml IV UD PRN PRN Reason: SALINE FLUSH Last Admin: 11/06/19 22:46 Dose: 10 ml Documented by: Spironolactone (Aldactone) 100 mg PO DAILY [facility] [place] Last Admin: 11/06/19 08:15 Dose: 100 mg Documented by: Sucralfate (Carafate) 1 gm PO 1HR_ACHS [facility] [place] Last Admin: 11/07/19 05:04 Dose: Not Given Documented by: Ursodiol (Anthony) 250 mg PO BID [facility] [place] Last Admin: 11/06/19 21:55 Dose: 250 mg Documented by: STROKE Vital Signs/Narrative: Vital Signs Temp Pulse Resp BP Pulse Ox 11/07/19 10:09 97.9 F 78 18 136/76 H 98 11/07/19 09:45 97.7 F L 82 16 133/76 H 95 11/07/19 09:30 82 16 141/79 H 95 11/07/19 09:15 89 16 140/78 H 95 11/07/19 09:00 87 16 142/79 H 95 11/07/19 08:51 97.8 F 96 16 144/75 H 91 11/07/19 07:30 97.7 F L 83 18 152/79 H 98 Medical Necessity - Tobacco Use Smoking Status: Never smoker Assessment/Plan All Active Problems Cellulitis (Acute) 1. Right knee popliteal fossa cellulitis * on IV vancomycin and zosyn * s/p irrigation debridement of right thigh abscess * today is POD 0 * on IV morphine and oxycodone for pain * DUplex of RLE was negative for DVT * * 2. Type 2 diabetes mellitus * Blood sugar was 315 on admission. * Insulin sliding scale. Accuchecks ACHS. Continue Lantus at 20 units daily. * 3. Autoimmune hepatitis with cirrhosis * stable * on lasix and spironolactone * 4. DVT prophylaxis: SCDs. WIll start heparin q8 tomorrow Disposition: consult case management for discharge planning. Code Visit Inpatient E&M: [id number] [facility] Hosp L3
[2019-11-07 11:26] LABS: Bedside Glucose 198 mg/dL (70-110)
[2019-11-07] MEDS: oxyCODONE 5 MG Tablet PO ×3 (13:10→21:20)
[2019-11-07] MEDS: Lactulose 20 GM/30 ML UDC PO ×2 (13:10→21:17)
[2019-11-07 16:35] LABS: Bedside Glucose 268 mg/dL (70-110)
[2019-11-07] MEDS: Dicyclomine 10 MG Capsule PO ×2 (16:42→21:19)
[2019-11-07] MEDS: Sucralfate 1 GM Tablet PO ×2 (16:42→21:17)
[2019-11-07] MEDS: rifAXIMin 550 MG Tablet PO (21:17)
[2019-11-07] MEDS: fluvoxaMINE Maleate 50 MG Tablet 100 MG PO (21:18)
[2019-11-07] MEDS: Ursodiol 250 MG Tablet PO (21:19)
[2019-11-07] MEDS: carBAMazepine 200 MG/10 ML UDC 100 MG PO (21:19)
[2019-11-07] MEDS: Baclofen 10 MG Tablet PO (21:19)
[2019-11-07] MEDS: Magnesium Oxide 400 MG Tablet PO (21:20)
[2019-11-07] MEDS: Pregabalin 50 MG Capsule PO (21:21)
[2019-11-07 22:26] LABS: Bedside Glucose 178 mg/dL (70-110)
[2019-11-08 02:29] VITALS: BP 129/75; PULSE 87; RESP 18; TEMP 36.9; O2SAT 92
[2019-11-08] MEDS: Insulin Lispro 100 UNIT/ML INSULN.PEN SC ×5 (02:41→22:58)
[2019-11-08] MEDS: oxyCODONE 5 MG Tablet PO ×4 (02:55→22:54)
[2019-11-08] MEDS: Vancomycin IV 1,000 MG/200 ML BAG 200 MG IV (05:10)
[2019-11-08 05:21] LABS: Bedside Glucose 181 mg/dL (70-110)
[2019-11-08 06:40] LABS: Absolute Lymphocyte Count 0.44 X10^3/uL (0.83-4.51); Absolute Neutrophil Count 2.8 X10^3/uL (2.0-7.7); Basophil# 0.04 X10^3/uL; Basophil% 1.1 % (0-1); Eosinophil# 0.06 X10^3/uL; Eosinophils% 1.6 % (0-5); Hematocrit 30.5 % (37-47); Lymphocyte # 0.44 X10^3/ul (4.0); Lymphocyte % 11.7 % (19-41); Mean Corp Hgb Conc 32.8 g/dL (32-36); Mean Corpuscular Hgb 32.2 pg (27.0-32.0); Mean Corpuscular Volume 98.1 fL (81-99); Mean Platelet Vol. 10.5 fl (6.2-12.0); Monocyte# 0.45 X10^3/uL; Monocyte% 11.9 % (0-10); NRBC Flagged by Analyzer 0 % (0-5); Neutrophil # 2.77 X10^3/uL (2.7-7.7); Neutrophil % 73.4 % (47-70); POSITIVE COUNT YES; POSITIVE DIFFERENTIAL YES; Platelet Count 88 K/mm3 (150-450); RBC Distribution Width CV 14.4 % (11.6-14.6); RBC Distribution Width SD 50.4 fl (35.1-43.9); Red Blood Count 3.11 M/mm3 (4.2-5.4); White Blood Count 3.8 K/mm3 (4.4-11.0)
[2019-11-08 06:41] LABS: Differential Indicated SCAN CRITERIA MET
[2019-11-08] MEDS: Sucralfate 1 GM Tablet PO ×4 (06:43→22:56)
[2019-11-08] MEDS: Dicyclomine 10 MG Capsule PO ×4 (06:43→22:56)
[2019-11-08 07:09] LABS: Anion Gap 4 (5-15); BUN 9 mg/dL (7-18); BUN/Creat Ratio 5.8 RATIO (10-20); Calcium,Total 7.8 mg/dL (8.5-10.1); Chloride 105 mmol/L (98-107); Creatinine, Serum 1.54 mg/dL (0.55-1.02); Differential Comment SCANNED; EST Glomerular Filtration Rate 38 mL/min (>60); Est Glom Filt Rate - Afr Amer 46 mL/min (>60); Glucose 238 mg/dL (74-106); Sodium Level 137 mmol/L (136-145)
[2019-11-08 07:18] VITALS: O2SAT 92
[2019-11-08] MEDS: Ondansetron 4 MG/2 ML Vial IV ×2 (07:25→17:31)
[2019-11-08 07:46] LABS: Bedside Glucose 228 mg/dL (70-110)
[2019-11-08] MEDS: Insulin Lispro 100 UNIT/ML INSULN.PEN 8 UNIT SC ×4 (08:33→22:58)
--- NOTE | 2019-11-08 08:53 | PN_ITS ---
Patient Problems: Active and Suspected Problems Cellulitis (Acute) Reason for Visit: Follow-up on right thigh/knee abscess Subjective: Patient was seen and examined. Denied any new complaints. She has pain only when she stands on the knee. Denies any fever or chills. Patient was reportedly confused last night. She is alert oriented x3 today. Objective: Physical exam: General: Alert, Oriented x3, Cooperative, No apparent distress HEENT: Atraumatic, PERRLA, EOMI, Normocephalic Oral: Moist Mucosa Neck: Supple, No JVD, Negative Carotid Bruits Lungs: Clear to auscultation, Normal air movement, No rhonchi, No wheeze Cardiovascular: Regular rate, Regular Rhythm, Normal S1, Normal S2, No murmurs Abdomen: Bowel Sounds Present, Soft, Non Tender, Non-Distended, No Hepato- splenomegaly Extremities: No clubbing, No cyanosis, No edema, Capillary Refill Less than 3 Seconds Skin: - - Right knee wrapped in bandage. Musculoskeletal: No Muscle Wasting, right knee wrapped in bandage Lymphatic: No Cervical, Supraclavicular, or Inguinal Adenopathy Neurological: Cranial nerves II-XII grossly intact, Neuro grossly intact Psych/Mental Status: Normal Affect, Appropriate, Anxious, Alert and oriented to time, place, person, mood and affect, no flapping tremors Vitals/I&O's: Vital Signs Temp Pulse Resp BP Pulse Ox 98.4 F 87 18 129/75 H 92 11/08/19 02:29 11/08/19 02:29 11/08/19 02:29 11/08/19 02:29 11/08/19 07:18 Oxygen Flow Rate (L/min) 2 Oxygen Delivery Method Room Air Weight: 82.2 kg Body Mass Index (BMI) 27.5 Finger Stick Blood Glucose 217 Intake and Output for Last 24 Hours 11/06/19 11/07/19 11/08/19 23:59 23:59 23:59 Intake Total 1215 / 1855 3751.50 / 3991.50 790 / 790 Output Total 1150 / 1950 2203 / 2218 30 / 30 Balance 65 / -95 1548.50 / 1773.50 760 / 760 Microbiology Past 72 Hours 11/07/19 Unknown Tissue - Other Gram Stain - Final 11/07/19 Unknown Tissue - Aerobic & Anaerobic Swabs Gram Stain - Final Laboratory Results 11/07/19 09:13: POC Glucose 217 H 11/07/19 11:21: POC Glucose 198 H 11/07/19 16:30: POC Glucose 268 H 11/07/19 21:12: POC Glucose 178 H 11/08/19 02:38: POC Glucose 181 H 11/08/19 06:11: WBC 3.8 L, RBC 3.11 L, Hgb 10.0 L, Hct 30.5 L, MCV 98.1, MCH 32.2 H, MCHC 32.8, RDW Std Deviation 50.4 H, RDW Coeff of Valentina 14.4, Plt Count 88 L, MPV 10.5, Immature Gran % (Auto) 0.300, Neut % (Auto) 73.4 H, Lymph % (Auto) 11.7 L, [place] % (Auto) 11.9 H, Eos % (Auto) 1.6, Baso % (Auto) 1.1 H, Absolute Neuts (auto) 2.8, Absolute Lymphs (auto) 0.44 L, Nucleated RBC % 0, Differential Comment SCANNED, Diff Path Review March foll 11/08/19 06:11: Sodium 137, Potassium 4.0, Chloride 105, Carbon Dioxide 28.0, Anion Gap 4 L, BUN 9, Creatinine 1.54 H, Estim Creat Clear Calc 43.60, Est GFR (MDRD) Af Amer 46 L, Est GFR (MDRD) Non-Af 38 L, BUN/Creatinine Ratio 5.8 L, Glucose 238 H, Calcium 7.8 L 11/08/19 07:34: POC Glucose 228 H Current Medications Acetaminophen (Tylenol) 650 mg PO Q6H PRN PRN PRN Reason: Pain Score 1-3/Temp > 100.7 F Albuterol Sulfate (Ventolin Aerosols) 2.5 mg INHALATION Q2H PRN PRN PRN Reason: sob/wheezing Baclofen (Lioresal) 10 mg PO QHS [facility] Last Admin: 11/07/19 21:19 Dose: 10 mg Documented by: Carbamazepine (Tegretol Liquid) 100 mg PO BID [facility] Last Admin: 11/07/19 21:19 Dose: 100 mg Documented by: Dicyclomine HCl (Bentyl) 10 mg PO ACHS [facility] Last Admin: 11/08/19 06:43 Dose: 10 mg Documented by: Ergocalciferol (Vitamin D) 50,000 unit PO SA [facility] Last Admin: 11/07/19 11:12 Dose: Not Given Documented by: Fluticasone Propionate (Flonase Nasal [place]) 1 spray NASAL BID PRN Fluvoxamine Maleate (Luvox) 100 mg PO QHS [facility] Last Admin: 11/07/19 21:18 Dose: 100 mg Documented by: Furosemide (Lasix) 80 mg PO DAILY [facility] Last Admin: 11/07/19 11:11 Dose: Not Given Documented by: Glucagon () 1 mg IM .X1 PRN PRN Reason: Hypoglycemia Sodium Chloride () 250 mls @ 15 mls/hr IV .[id number] PRN PRN Reason: Saline Flush Last Infusion: 11/07/19 22:45 Dose: 0 mls/hr Documented by: Sodium Chloride () 250 mls @ 15 mls/hr IV .[id number] PRN PRN Reason: Additional IVPB Infusion Dextrose (Dextrose 10%-Water) 250 mls @ 999 mls/hr IV .Q16M PRN; Protocol PRN Reason: HYPOGLYCEMIA Piperacillin Sod/Tazobactam (Sod 3.375 gm/ Sodium Chloride) 50 mls @ 12.5 mls/hr IV Q8 [facility] Last Admin: 11/08/19 06:42 Dose: 12.5 mls/hr Documented by: Vancomycin IV Pharmacy to Dose (1,250 ea/ Sodium Chloride) 500 mls @ 250 mls/hr IV PRN PRN; Protocol PRN Reason: RX TO DOSE Vancomycin HCl (Vancomycin) 1,000 mg in 200 mls @ 200 mls/hr IV Q8H [facility] Last Infusion: 11/08/19 06:41 Dose: Infused Documented by: Insulin Glargine (Lantus (Bkc)) 20 units SC DAILY [facility] Last Admin: 11/06/19 08:26 Dose: 20 units Documented by: Insulin Human Lispro (Humalog Kwikpen (Bkc)) 0 unit SC ACHS & 3AM YONI; Protocol Last Admin: 11/08/19 08:33 Dose: 6 units Documented by: Insulin Human Lispro (Humalog Kwikpen (Bkc)) 8 unit SC ACHS [facility] Last Admin: 11/08/19 08:33 Dose: 8 units Documented by: Lactulose (Chronulac, Cephulac) 20 gm PO TID [facility] Last Admin: 11/08/19 06:46 Dose: Not Given Documented by: Magnesium Oxide (Mag-Ox 400) 400 mg PO BID [facility] Last Admin: 11/07/19 21:20 Dose: 400 mg Documented by: Morphine Sulfate () 2 mg IV Q3H PRN PRN PRN Reason: Pain Score 6-10/10 Last Admin: 11/07/19 04:50 Dose: 2 mg Documented by: Ondansetron HCl (Zofran) 4 mg IV Q6H PRN PRN PRN Reason: NAUSEA/VOMITING Last Admin: 11/08/19 07:25 Dose: 4 mg Documented by: Oxycodone HCl (Oxyir) 5 mg PO Q4H PRN PRN PRN Reason: Pain Score 4-5/10 Last Admin: 11/08/19 07:25 Dose: 5 mg Documented by: Pantoprazole Sodium (Protonix) 40 mg PO DAILY [facility] Last Admin: 11/07/19 11:11 Dose: Not Given Documented by: Potassium Chloride (K-Dur) 20 meq PO BID [facility] Last Admin: 11/07/19 21:18 Dose: 20 meq Documented by: Pregabalin (Lyrica) 50 mg PO BID [facility] Last Admin: 11/07/19 21:21 Dose: 50 mg Documented by: Rifaximin (Xifaxan) 550 mg PO BID [facility] Last Admin: 11/07/19 21:17 Dose: 550 mg Documented by: Senna/Docusate Sodium (Senokot-S, Vy-Colace) 1 tablet PO DAILY PRN PRN PRN Reason: Constipation Sodium Chloride () 10 - 40 ml IV UD PRN PRN Reason: SALINE FLUSH Last Admin: 11/06/19 22:46 Dose: 10 ml Documented by: Spironolactone (Aldactone) 100 mg PO DAILY [facility] Last Admin: 11/07/19 11:11 Dose: Not Given Documented by: Sucralfate (Carafate) 1 gm PO 1HR_ACHS [facility] Last Admin: 11/08/19 06:43 Dose: 1 gm Documented by: Ursodiol (Anthony) 250 mg PO BID [facility] Last Admin: 11/07/19 21:19 Dose: 250 mg Documented by: STROKE Vital Signs/Narrative: Vital Signs Pulse Ox 11/08/19 07:18 92 Medical Necessity - Tobacco Use Smoking Status: Never smoker Assessment/Plan All Active Problems Cellulitis (Acute) 1. Right posterior thigh abscess/popliteal fossa cellulitis, POA Status post I&D of right thigh abscess Her operative cultures are pending ID following 2. Type 2 DM, BS are fairly controlled, On Lantus, scheduled Lispro, ISS Will continue to monitor 3. JULIANNE, pre-renal, Cr is 1.54, baseline Cr 0.74 Will start on gentle IVF, will hold spironolactone Will repeat labs in am 4. Autoimmune hepatitis/cirrhosis of liver No current hepatic encephalopathy On lactulose, rifaximin Hold spironolactone 5. DVT PPx- early ambulation, not on chemical prophylaxis on account of thrombocytopenia Code Visit Inpatient E&M: 22551 Subs Hosp L2
[2019-11-08 09:42] VITALS: BP 130/89; PULSE 74; RESP 18; TEMP 37; O2SAT 93
[2019-11-08] MEDS: Pregabalin 50 MG Capsule PO ×2 (10:17→22:56)
[2019-11-08] MEDS: carBAMazepine 200 MG/10 ML UDC 100 MG PO ×2 (10:17→22:56)
[2019-11-08] MEDS: Ursodiol 250 MG Tablet PO ×2 (10:18→22:56)
[2019-11-08] MEDS: Pantoprazole Sodium 40 MG Tablet PO (10:18)
[2019-11-08] MEDS: Furosemide 80 MG Tablet PO (10:19)
[2019-11-08] MEDS: Magnesium Oxide 400 MG Tablet PO ×2 (10:19→22:55)
[2019-11-08] MEDS: rifAXIMin 550 MG Tablet PO ×2 (10:20→22:55)
[2019-11-08 10:21] LABS: AST(SGOT) 73 U/L (15-37); Alanine Aminotransfer ALT/SGPT 37 U/L (13-56); Albumin, Serum 1.9 g/dL (3.2-5.0); Alkaline Phosphatase 534 U/L (45-117); Bilirubin, Direct 1.82 mg/dL (0.00-0.30); Globulin 4.6 g/dL (2.2-4.2); Protein, Total 6.5 g/dL (6.4-8.2)
[2019-11-08] MEDS: 0.9% Normal Saline 1,000 ML 100 ML IV (10:28)
[2019-11-08 11:51] LABS: Bedside Glucose 224 mg/dL (70-110)
--- NOTE | 2019-11-08 12:37 | PN.ORTHO_ITS ---
Patient Problems: Active and Suspected Problems Cellulitis (Acute) - Physical Exam Vitals/I&O's: Vital Signs Temp Pulse Resp BP Pulse Ox 98.6 F 74 18 130/89 H 93 11/08/19 09:42 11/08/19 09:42 11/08/19 09:42 11/08/19 09:42 11/08/19 09:42 Oxygen Flow Rate (L/min) 2 Oxygen Delivery Method Room Air Weight: 181 lb 3.52 oz Body Mass Index (BMI) 27.5 Finger Stick Blood Glucose 217 Intake and Output for Last 24 Hours 11/06/19 11/07/19 11/08/19 23:59 23:59 23:59 Intake Total 1215 / 1855 3751.50 / 3991.50 840 / 840 Output Total 1150 / 1950 2203 / 2218 30 Balance 65 / -95 1548.50 / 1773.50 810 / 810 General: Alert, Oriented x3, Cooperative Extremities: - - Right lower extremity: Incision is clean dry and intact. Drainage is serosanguineous, no sign of purulence in the drain. Erythema significantly decreased still some intense erythema just posterior to the incision with tenderness here. Neurovascular intact distally. Microbiology Past 72 Hours 11/07/19 Unknown Tissue - Other Gram Stain - Final 11/07/19 Unknown Tissue - Aerobic & Anaerobic Swabs Gram Stain - Final Laboratory Results 11/07/19 16:30: POC Glucose 268 H 11/07/19 21:12: POC Glucose 178 H 11/08/19 02:38: POC Glucose 181 H 11/08/19 06:11: WBC 3.8 L, RBC 3.11 L, Hgb 10.0 L, Hct 30.5 L, MCV 98.1, MCH 32.2 H, MCHC 32.8, RDW Std Deviation 50.4 H, RDW Coeff of Valentina 14.4, Plt Count 88 L, MPV 10.5, Immature Gran % (Auto) 0.300, Neut % (Auto) 73.4 H, Lymph % (Auto) 11.7 L, [place] % (Auto) 11.9 H, Eos % (Auto) 1.6, Baso % (Auto) 1.1 H, Absolute Neuts (auto) 2.8, Absolute Lymphs (auto) 0.44 L, Nucleated RBC % 0, Differential Comment SCANNED, Diff Path Review May foll 11/08/19 06:11: Sodium 137, Potassium 4.0, Chloride 105, Carbon Dioxide 28.0, Anion Gap 4 L, BUN 9, Creatinine 1.54 H, Estim Creat Clear Calc 43.60, Est GFR (MDRD) Af Amer 46 L, Est GFR (MDRD) Non-Af 38 L, BUN/Creatinine Ratio 5.8 L, Glucose 238 H, Calcium 7.8 L 11/08/19 06:11: Total Bilirubin 2.60 H, Direct Bilirubin 1.82 H, AST 73 H, ALT 37, Alkaline Phosphatase 534 H, Total Protein 6.5, Albumin 1.9 L, Globulin 4.6 H 11/08/19 07:34: POC Glucose 228 H 11/08/19 11:49: POC Glucose 224 H 11/08/19 12:20: Vancomycin Trough Pending Current Medications Acetaminophen (Tylenol) 650 mg PO Q6H PRN PRN PRN Reason: Pain Score 1-3/Temp > 100.7 F Albuterol Sulfate (Ventolin Aerosols) 2.5 mg INHALATION Q2H PRN PRN PRN Reason: sob/wheezing Baclofen (Lioresal) 10 mg PO QHS [facility] Last Admin: 11/07/19 21:19 Dose: 10 mg Documented by: Carbamazepine (Tegretol Liquid) 100 mg PO BID [facility] Last Admin: 11/08/19 10:17 Dose: 100 mg Documented by: Dicyclomine HCl (Bentyl) 10 mg PO ACHS [facility] Last Admin: 11/08/19 10:31 Dose: 10 mg Documented by: Ergocalciferol (Vitamin D) 50,000 unit PO SA [facility] Last Admin: 11/07/19 11:12 Dose: Not Given Documented by: Fluticasone Propionate (Flonase Nasal [place]) 1 spray NASAL BID PRN Fluvoxamine Maleate (Luvox) 100 mg PO QHS [facility] Last Admin: 11/07/19 21:18 Dose: 100 mg Documented by: Furosemide (Lasix) 80 mg PO DAILY [facility] Last Admin: 11/08/19 10:19 Dose: 80 mg Documented by: Glucagon () 1 mg IM .X1 PRN PRN Reason: Hypoglycemia Sodium Chloride () 250 mls @ 15 mls/hr IV .[id number] PRN PRN Reason: Saline Flush Last Infusion: 11/07/19 22:45 Dose: 0 mls/hr Documented by: Sodium Chloride () 250 mls @ 15 mls/hr IV .[id number] PRN PRN Reason: Additional IVPB Infusion Dextrose (Dextrose 10%-Water) 250 mls @ 999 mls/hr IV .Q16M PRN; Protocol PRN Reason: HYPOGLYCEMIA Piperacillin Sod/Tazobactam (Sod 3.375 gm/ Sodium Chloride) 50 mls @ 12.5 mls/hr IV Q8 [facility] Last Infusion: 11/08/19 10:42 Dose: Infused Documented by: Vancomycin IV Pharmacy to Dose (1,250 ea/ Sodium Chloride) 500 mls @ 250 mls/hr IV PRN PRN; Protocol PRN Reason: RX TO DOSE Vancomycin HCl (Vancomycin) 1,000 mg in 200 mls @ 200 mls/hr IV Q8H [facility] Last Infusion: 11/08/19 06:41 Dose: Infused Documented by: Sodium Chloride () 1,000 mls @ 100 mls/hr IV .Q10H [facility] Stop: 11/08/19 20:04 Last Admin: 11/08/19 10:28 Dose: 100 mls/hr Documented by: Insulin Glargine (Lantus (Bkc)) 20 units SC DAILY [facility] Last Admin: 11/08/19 10:19 Dose: 20 units Documented by: Insulin Human Lispro (Humalog Kwikpen (Bkc)) 0 unit SC ACHS & 3AM YONI; Protocol Last Admin: 11/08/19 12:13 Dose: 4 units Documented by: Insulin Human Lispro (Humalog Kwikpen (Bkc)) 8 unit SC ACHS [facility] Last Admin: 11/08/19 12:13 Dose: 8 units Documented by: Lactulose (Chronulac, Cephulac) 20 gm PO TID [facility] Last Admin: 11/08/19 06:46 Dose: Not Given Documented by: Magnesium Oxide (Mag-Ox 400) 400 mg PO BID [facility] Last Admin: 11/08/19 10:19 Dose: 400 mg Documented by: Morphine Sulfate () 2 mg IV Q3H PRN PRN PRN Reason: Pain Score 6-10/10 Last Admin: 11/07/19 04:50 Dose: 2 mg Documented by: Ondansetron HCl (Zofran) 4 mg IV Q6H PRN PRN PRN Reason: NAUSEA/VOMITING Last Admin: 11/08/19 07:25 Dose: 4 mg Documented by: Oxycodone HCl (Oxyir) 5 mg PO Q4H PRN PRN PRN Reason: Pain Score 4-5/10 Last Admin: 11/08/19 07:25 Dose: 5 mg Documented by: Pantoprazole Sodium (Protonix) 40 mg PO DAILY [facility] Last Admin: 11/08/19 10:18 Dose: 40 mg Documented by: Potassium Chloride (K-Dur) 20 meq PO BID [facility] Last Admin: 11/08/19 10:20 Dose: 20 meq Documented by: Pregabalin (Lyrica) 50 mg PO BID [facility] Last Admin: 11/08/19 10:17 Dose: 50 mg Documented by: Rifaximin (Xifaxan) 550 mg PO BID [facility] Last Admin: 11/08/19 10:20 Dose: 550 mg Documented by: Senna/Docusate Sodium (Senokot-S, Vy-Colace) 1 tablet PO DAILY PRN PRN PRN Reason: Constipation Sodium Chloride () 10 - 40 ml IV UD PRN PRN Reason: SALINE FLUSH Last Admin: 11/06/19 22:46 Dose: 10 ml Documented by: Sucralfate (Carafate) 1 gm PO 1HR_ACHS [facility] Last Admin: 11/08/19 10:30 Dose: 1 gm Documented by: Ursodiol (Anthony) 250 mg PO BID [facility] Last Admin: 11/08/19 10:18 Dose: 250 mg Documented by: Medical Necessity - Tobacco Use Smoking Status: Never smoker Assessment/Plan All Active Problems Cellulitis (Acute) Postop day 1 right leg abscess irrigation debridement 1. Infection: Antibiotics per ID. Gram-positive cocci on Gram stain 2. Wound care: Drain was removed today change dressing daily for first week if remains clean dry can leave open to air 3. Therapy: Range of motion as tolerated, activity as tolerated, weightbearing as tolerated 4. Disposition: We will recheck the patient tomorrow to verify that no rec urrence of abscess happens after removing the drain. She looks well no further surgical intervention will be needed. Patient should follow-up in office in 2 weeks from surgery. [facility] Office:
[2019-11-08 13:11] LABS: Vancomycin, Trough Level 32.2 ug/mL (5.0-15.0)
--- NOTE | 2019-11-08 14:54 | PCM.RX.CS ---
Consult Pharmacy has been consulted to manage selected antiobiotic: Vancomycin Type of Consult: Follow-up Suspected Infection: Skin/Soft tissue Prior Doses of Antibiotics Received/Current Regimen: Current regimen is 1000mg IV q8h with the last dose given this morning at 05:10 Labs: Sodium 137 mmol/L (136-145) 11/08/19 06:11 Potassium 4.0 mmol/L (3.5-5.1) 11/08/19 06:11 Chloride 105 mmol/L (98-107) 11/08/19 06:11 Carbon Dioxide 28.0 mmol/L (21.0-32.0) 11/08/19 06:11 Anion Gap 4 (5-15) L 11/08/19 06:11 BUN 9 mg/dL (7-18) 11/08/19 06:11 Creatinine 1.54 mg/dL (0.55-1.02) H 11/08/19 06:11 Est GFR (MDRD) Af Amer 46 mL/min (>60) L 11/08/19 06:11 Est GFR (MDRD) Non-Af 38 mL/min (>60) L 11/08/19 06:11 BUN/Creatinine Ratio 5.8 RATIO (10-20) L 11/08/19 06:11 Glucose 238 mg/dL (74-106) H 11/08/19 06:11 Vancomycin Trough 32.2 ug/mL (5.0-15.0) H 11/08/19 12:20 Microbiology: Microbiology 11/07/19 Unknown Tissue - Aerobic & Anaerobic Swabs Gram Stain - Final 11/07/19 Unknown Tissue - Aerobic & Anaerobic Swabs Wound Culture - Preliminary Staphylococcus aureus 11/07/19 Unknown Tissue - Other Gram Stain - Final 11/07/19 Unknown Tissue - Other Wound Culture - Preliminary Staphylococcus aureus Weight used for dosin.2 kg Estimated Creatinine Clearance: 43.6ml/min Goal Trough: 15-20 mcg/mL Pharmacy Plan for Drug Dosing: The patient's SCr increased to 1.54 today from 0.74 yesterday. As a result, an unscheduled vancomycin level was taken before this afternoon's dose was to be given. That level (drawn about 7 hours after the previous dose) was 32.2 mg/L. Further vancomycin dosing was then discontinued for now, including this afternoon's dose which was not given. A random vancomycin level will be ordered to be drawn in 24 hours to assess if it has gone back down below 20. Further dosing will be evaluated from there. Pharmacy Service will continue to monitor and adjust dosing as required. Follow-Up Labs: Trough Vancomycin - random Labs to be done on [date and time ordered]: 11/09/19 13:00
[2019-11-08 16:26] LABS: Bedside Glucose 202 mg/dL (70-110)
[2019-11-08 16:48] VITALS: BP 120/76; PULSE 72; RESP 18; TEMP 36.8; O2SAT 94
[2019-11-08 21:45] LABS: Bedside Glucose 322 mg/dL (70-110)
[2019-11-08] MEDS: fluvoxaMINE Maleate 50 MG Tablet 100 MG PO (22:55)
[2019-11-08] MEDS: Baclofen 10 MG Tablet PO (22:55)
[2019-11-08 23:30] VITALS: BP 129/76; PULSE 77; RESP 16; TEMP 37; O2SAT 92
[2019-11-09] MEDS: Insulin Lispro 100 UNIT/ML INSULN.PEN SC ×5 (03:22→22:19)
[2019-11-09 03:23] VITALS: BP 124/70; PULSE 75; RESP 18; TEMP 37.1; O2SAT 94
[2019-11-09] MEDS: oxyCODONE 5 MG Tablet PO (03:23)
[2019-11-09 03:31] LABS: Bedside Glucose 244 mg/dL (70-110)
[2019-11-09] MEDS: Ondansetron 4 MG/2 ML Vial IV ×2 (04:27→11:21)
[2019-11-09] MEDS: 0.9% Saline Lock 10 ML Syringe IV ×3 (04:28→12:59)
[2019-11-09 05:55] LABS: Absolute Neutrophil Count 2.1 X10^3/uL (2.0-7.7); Basophil# 0.04 X10^3/uL; Basophil% 1.3 % (0-1); Eosinophil# 0.06 X10^3/uL; Eosinophils% 1.9 % (0-5); Hematocrit 33.3 % (37-47); Hemoglobin 10.6 g/dL (12.0-15.0); Mean Corp Hgb Conc 31.8 g/dL (32-36); Mean Corpuscular Hgb 31.7 pg (27.0-32.0); Mean Corpuscular Volume 99.7 fL (81-99); Mean Platelet Vol. 10.7 fl (6.2-12.0); Monocyte# 0.46 X10^3/uL; Monocyte% 14.9 % (0-10); NRBC Flagged by Analyzer 0 % (0-5); Neutrophil # 2.11 X10^3/uL (2.7-7.7); Neutrophil % 68.6 % (47-70); POSITIVE DIFFERENTIAL YES; Platelet Count 107 K/mm3 (150-450); RBC Distribution Width CV 14.6 % (11.6-14.6); RBC Distribution Width SD 52.7 fl (35.1-43.9); Red Blood Count 3.34 M/mm3 (4.2-5.4); White Blood Count 3.1 K/mm3 (4.4-11.0)
[2019-11-09 06:33] LABS: Differential Indicated SCAN CRITERIA MET
[2019-11-09] MEDS: Lactulose 20 GM/30 ML UDC PO (06:35)
[2019-11-09] MEDS: Sucralfate 1 GM Tablet PO ×4 (06:35→22:18)
[2019-11-09] MEDS: Dicyclomine 10 MG Capsule PO ×4 (06:35→22:33)
[2019-11-09 07:12] VITALS: O2SAT 94
[2019-11-09 07:12] LABS: Differential Comment SCANNED
[2019-11-09] MEDS: Insulin Lispro 100 UNIT/ML INSULN.PEN 8 UNIT SC ×4 (07:51→22:20)
[2019-11-09 07:56] LABS: Bedside Glucose 251 mg/dL (70-110)
[2019-11-09 08:12] LABS: ALB/GLOB Ratio 0.4 RATIO (0.9-2.4); AST(SGOT) 59 U/L (15-37); Alanine Aminotransfer ALT/SGPT 36 U/L (13-56); Albumin, Serum 2.1 g/dL (3.2-5.0); Alkaline Phosphatase 556 U/L (45-117); Anion Gap 5 (5-15); BUN 18 mg/dL (7-18); BUN/Creat Ratio 5.1 RATIO (10-20); Calcium,Total 7.7 mg/dL (8.5-10.1); Chloride 101 mmol/L (98-107); Creatinine, Serum 3.52 mg/dL (0.55-1.02); EST Glomerular Filtration Rate 15 mL/min (>60); Est Glom Filt Rate - Afr Amer 18 mL/min (>60); Estimated Creatinine Clearance 19.07 ml/min; Globulin 5.2 g/dL (2.2-4.2); Glucose 249 mg/dL (74-106); Potassium 3.9 mmol/L (3.5-5.1); Protein, Total 7.3 g/dL (6.4-8.2); Sodium Level 136 mmol/L (136-145)
--- NOTE | 2019-11-09 08:48 | US_ITS ---
STUDY: RENAL ULTRASOUND - COMPLETE REASON FOR EXAM: Female, 49 years old. Acute kidney injury, flank pain. TECHNIQUE: Ultrasound evaluation of the kidneys was performed with real-time and static dent-scale imaging. COMPARISON: CT abdomen November 06, 2019 FINDINGS: RIGHT KIDNEY: Normal location of the right kidney, with mild renal hypertrophy. The right kidney measures 13.5 x 6.4 x 6.6 cm. There is a normal cortex of the right kidney. The renal cortex measures 2.4 cm. There is no right renal mass or cyst. There are no right renal calculi. There is no right hydronephrosis. DISTAL RIGHT URETER: There is non-visualization of the distal right ureter. There is no demonstrated right ureterovesical junction calculus. There is a visualized right ureteral jet. LEFT KIDNEY: Normal location of the left kidney, with mild renal hypertrophy. The left kidney measures 13.2 x 6.6 x 6.4 cm. There is a normal cortex of the left kidney. The renal cortex measures 2.7 cm. Moderately well-defined 2.1 x 2.2 x 2.2 cm cortical cyst is seen in the posterior lower pole There are no left renal calculi. There is no left hydronephrosis. DISTAL LEFT URETER: There is non-visualization of the distal left ureter. There is no demonstrated left ureterovesical junction calculus. There is a visualized left ureteral jet. BLADDER: The distended urinary bladder has a volume of 285.86 ml. There is 5.3 mm wall thickness of the distended urinary bladder. There is no demonstrated mass within the urinary bladder. There are no demonstrated bladder calculi. US/Kidney and Bladder IMPRESSION: 1. Bilateral renal hypertrophy. No hydronephrosis. 2. Cortical cyst in the posterior lower pole of the left kidney, correlating to a finding on CT. 3. Unremarkable urinary bladder. Electronically Signed: Ezequiel Mayorga MD at 13:48 EST , Service support ,
[2019-11-09 09:00] VITALS: BP 157/80; PULSE 75; RESP 18; TEMP 36.5; O2SAT 95
[2019-11-09] MEDS: 0.9% Normal Saline 1,000 ML 200 ML IV ×3 (09:02→19:11)
--- NOTE | 2019-11-09 09:23 | EKG12_ITS ---
Test Reason : AM EKG Blood Pressure : / mmHG Vent. Rate : 081 BPM Atrial Rate : 081 BPM P-R Int : 160 ms QRS Dur : 102 ms QT Int : 404 ms P-R-T Axes : 031 -27 034 degrees QTc Int : 469 ms Normal sinus rhythm Normal ECG When compared with ECG of 09-JAN-2019 10:26, Nonspecific T wave abnormality has replaced inverted T waves in Inferior leads Confirmed by DEDE ZAMBRANO, ROSA ([id number]), food expeditor SHREYA KELLY ([id number]) on 11/10/2019 9:49:20 AM Referred By: MARIA TERESA Confirmed By:ROSA AGUAYO MD
--- NOTE | 2019-11-09 09:48 | PN.ORTHO_ITS ---
Patient Problems: Active and Suspected Problems Cellulitis (Acute) Subjective: Patient sitting at bedside eating breakfast. Patient states pain is well managed. Has no complaints at this time. She states she is ready for discharge home. Objective: Exam the incision is clean dry intact. There is no active drainage. Patient has had significant reduction of erythema. Patient has full extension of the knee to 0 flexion to 110 degrees with pain. She has no calf pain. Patient is afebrile. Vitals with otherwise normal limits. Patient has no calf pain, no signs or symptoms of DVT. Patient speaking full sentences, with no respiratory distress. - Physical Exam Vitals/I&O's: Vital Signs Temp Pulse Resp BP Pulse Ox 97.7 F L 75 18 157/80 H 95 11/09/19 09:00 11/09/19 09:00 11/09/19 09:00 11/09/19 09:00 11/09/19 09:00 Oxygen Flow Rate (L/min) 2 Oxygen Delivery Method Room Air Weight: 82.2 kg Body Mass Index (BMI) 27.5 Finger Stick Blood Glucose 217 Intake and Output for Last 24 Hours 11/07/19 11/08/19 11/09/19 23:59 23:59 23:59 Intake Total 3751.50 / 3991.50 3665 / 4265 758.25 / 758.25 Output Total 2203 / 2218 30 / 30 550 / 550 Balance 1548.50 / 1773.50 3635 / 4235 208.25 / 208.25 General: Alert, Oriented x3, Cooperative HEENT: PERRLA Oral: Moist Mucosa Neurological: Cranial nerves II-XII grossly intact Psych/Mental Status: Normal Affect, Alert and oriented to time, place, person, mood and affect Microbiology Past 72 Hours 11/07/19 Unknown Tissue - Aerobic & Anaerobic Swabs Gram Stain - Final 11/07/19 Unknown Tissue - Aerobic & Anaerobic Swabs Wound Culture - Preliminary Staphylococcus aureus 11/07/19 Unknown Tissue - Other Gram Stain - Final 11/07/19 Unknown Tissue - Other Wound Culture - Preliminary Staphylococcus aureus Laboratory Results 11/08/19 06:11: Total Bilirubin 2.60 H, Direct Bilirubin 1.82 H, AST 73 H, ALT 37, Alkaline Phosphatase 534 H, Total Protein 6.5, Albumin 1.9 L, Globulin 4.6 H 11/08/19 11:49: POC Glucose 224 H 11/08/19 12:20: Vancomycin Trough 32.2 H 11/08/19 16:18: POC Glucose 202 H 11/08/19 21:42: POC Glucose 322 H 11/09/19 03:21: POC Glucose 244 H 11/09/19 05:30: WBC 3.1 L, RBC 3.34 L, Hgb 10.6 L, Hct 33.3 L, MCV 99.7 H, MCH 31.7, MCHC 31.8 L, RDW Std Deviation 52.7 H, RDW Coeff of Valentina 14.6, Plt Count 107 L, MPV 10.7, Immature Gran % (Auto) 0.300, Neut % (Auto) 68.6, Lymph % (Auto) 13.0 L, Cotton % (Auto) 14.9 H, Eos % (Auto) 1.9, Baso % (Auto) 1.3 H, Absolute Neuts (auto) 2.1, Absolute Lymphs (auto) 0.40 L, Nucleated RBC % 0, Differential Comment SCANNED 11/09/19 05:30: Sodium 136, Potassium 3.9, Chloride 101, Carbon Dioxide 30.0, Anion Gap 5, BUN 18, Creatinine 3.52 H, Estim Creat Clear Calc 19.07, Est GFR (MDRD) Af Amer 18 L, Est GFR (MDRD) Non-Af 15 L, BUN/Creatinine Ratio 5.1 L, Glucose 249 H, Calcium 7.7 L, Total Bilirubin 2.30 H, AST 59 H, ALT 36, Alkaline Phosphatase 556 H, Total Protein 7.3, Albumin 2.1 L, Globulin 5.2 H, Albumin/Globulin Ratio 0.4 L 11/09/19 07:50: POC Glucose 251 H Current Medications Acetaminophen (Tylenol) 650 mg PO Q6H PRN PRN PRN Reason: Pain Score 1-3/Temp > 100.7 F Albuterol Sulfate (Ventolin Aerosols) 2.5 mg INHALATION Q2H PRN PRN PRN Reason: sob/wheezing Baclofen (Lioresal) 10 mg PO QHS [facility] Last Admin: 11/08/19 22:55 Dose: 10 mg Documented by: Carbamazepine (Tegretol Liquid) 100 mg PO BID [facility] Last Admin: 11/08/19 22:56 Dose: 100 mg Documented by: Dicyclomine HCl (Bentyl) 10 mg PO ACHS [facility] Last Admin: 11/09/19 06:35 Dose: 10 mg Documented by: Ergocalciferol (Vitamin D) 50,000 unit PO SA [facility] Last Admin: 11/07/19 11:12 Dose: Not Given Documented by: Fluticasone Propionate (Flonase Nasal [place]) 1 spray NASAL BID PRN Fluvoxamine Maleate (Luvox) 100 mg PO QHS [facility] Last Admin: 11/08/19 22:55 Dose: 100 mg Documented by: Furosemide (Lasix) 80 mg PO DAILY [facility] Last Admin: 11/08/19 10:19 Dose: 80 mg Documented by: Glucagon () 1 mg IM .X1 PRN PRN Reason: Hypoglycemia Sodium Chloride () 250 mls @ 15 mls/hr IV .[id number] PRN PRN Reason: Saline Flush Last Admin: 11/09/19 06:52 Dose: 15 mls/hr Documented by: Sodium Chloride () 250 mls @ 15 mls/hr IV .[id number] PRN PRN Reason: Additional IVPB Infusion Dextrose (Dextrose 10%-Water) 250 mls @ 999 mls/hr IV .Q16M PRN; Protocol PRN Reason: HYPOGLYCEMIA Sodium Chloride () 1,000 mls @ 200 mls/hr IV .Q5H [facility] Last Admin: 11/09/19 09:02 Dose: 200 mls/hr Documented by: Cefazolin Sodium () 1 gm in 50 mls @ 100 mls/hr IV Q12 [facility] Insulin Glargine (Lantus (Bkc)) 20 units SC DAILY [facility] Last Admin: 11/08/19 10:19 Dose: 20 units Documented by: Insulin Human Lispro (Humalog Kwikpen (Bkc)) 0 unit SC ACHS & 3AM YONI; Protocol Last Admin: 11/09/19 07:51 Dose: 4 units Documented by: Insulin Human Lispro (Humalog Kwikpen (Bkc)) 8 unit SC ACHS [facility]ONI Last Admin: 11/09/19 07:51 Dose: 8 units Documented by: Lactulose (Chronulac, Cephulac) 20 gm PO TID [facility] Last Admin: 11/09/19 06:35 Dose: 20 gm Documented by: Magnesium Oxide (Mag-Ox 400) 400 mg PO BID [facility] Last Admin: 11/08/19 22:55 Dose: 400 mg Documented by: Morphine Sulfate () 2 mg IV Q3H PRN PRN PRN Reason: Pain Score 6-10/10 Last Admin: 11/07/19 04:50 Dose: 2 mg Documented by: Ondansetron HCl (Zofran) 4 mg IV Q6H PRN PRN PRN Reason: NAUSEA/VOMITING Last Admin: 11/09/19 04:27 Dose: 4 mg Documented by: Oxycodone HCl (Oxyir) 5 mg PO Q4H PRN PRN PRN Reason: Pain Score 4-5/10 Last Admin: 11/09/19 03:23 Dose: 5 mg Documented by: Pantoprazole Sodium (Protonix) 40 mg PO DAILY [facility] Last Admin: 11/08/19 10:18 Dose: 40 mg Documented by: Potassium Chloride (K-Dur) 20 meq PO BID [facility] Last Admin: 11/08/19 22:57 Dose: 20 meq Documented by: Pregabalin (Lyrica) 50 mg PO BID [facility] Last Admin: 11/08/19 22:56 Dose: 50 mg Documented by: Prochlorperazine Edisylate (Compazine Iv) 10 mg IV Q6H PRN PRN PRN Reason: NAUSEA/VOMITING Rifaximin (Xifaxan) 550 mg PO BID [facility] Last Admin: 11/08/19 22:55 Dose: 550 mg Documented by: Senna/Docusate Sodium (Senokot-S, Vy-Colace) 1 tablet PO DAILY PRN PRN PRN Reason: Constipation Sodium Chloride () 10 - 40 ml IV UD PRN PRN Reason: SALINE FLUSH Last Admin: 11/09/19 04:28 Dose: 10 ml Documented by: Sucralfate (Carafate) 1 gm PO 1HR_ACHS [facility] Last Admin: 11/09/19 06:35 Dose: 1 gm Documented by: Ursodiol (Anthony) 250 mg PO BID [facility] Last Admin: 11/08/19 22:56 Dose: 250 mg Documented by: Medical Necessity - Tobacco Use Smoking Status: Never smoker Assessment/Plan All Active Problems Cellulitis (Acute) Cellulitis right leg, postop I&D abscess Plan 1. Continue all pain medications as prescribed 2. Continue antibiotics as directed by medicine and ID 3. Weight-bear as tolerated with the use of a walker, or cane. 4. Keep vision covered 5. Discharge home when cleared by medicine, and ID. 6. Follow with Dr. Grajeda in 10 to 12 days, call office for appointment
--- NOTE | 2019-11-09 09:55 | DCINST_ITS ---
Discharge Diet: No Restrictions Discharge Activity: May Not Drive, May Shower, Use Walker May shower in (days): 5 Ice area for (Minutes): 20 - Every hour while awake. Weight Bearing Status: Weight bearing as tolerated Keep extremity elevated above heart level: Operative Extremity Call your doctor if your incision/area has: Continuous Slow Oozing, Sudden Increased Bleeding, Increased Pain/ Swelling, Increased Redness, Foul Smelling Discharge Call your doctor if you observe: Fever of 101 or Higher, Coldness, Increased Pain, Numbness or Tingling, Change in Color, Calf discomfort Additional Dressing/Incision Instructions:: keep incision covered. remove and replace for showering. Allergies/Adverse Reactions: Allergies adhesive Allergy (Verified 01/09/19 07:10) Rash escitalopram oxalate [From Lexapro] Allergy (Verified 01/09/19 07:10) blindness gabapentin [From Neurontin] Allergy (Verified 01/09/19 07:10) Alan Jez's Syndrome lamotrigine [From Lamictal] Allergy (Verified 01/09/19 07:10) Blindness Preservatives Allergy (Uncoded 01/09/19 07:10) passed out, lungs deflated Preservatives in various foods including packaged gladys cheese, lettuce, and seafood. sour cream Allergy (Uncoded 01/09/19 07:10) Anaphylaxis Medications to take at Discharge Potassium Chloride [Klor-Con M20] 20 meq PO BID 09/25/15 Albuterol Inhaler [Ventolin Hfa] 2 puff INHALATION Q4H PRN PRN 02/16/16 Furosemide [Lasix] 80 mg PO DAILY 03/14/17 Insulin Lispro [Humalog] 12 units SC ACHS 03/14/17 Magnesium Oxide [Magnesium] 400 mg PO BID 03/14/17 Spironolactone [Aldactone] 100 mg PO DAILY 04/28/17 traMADol [Ultram] 50 mg PO Q6H PRN PRN 04/28/17 Sennosides/Docusate Sodium [Senna Plus Tablet] 1 each PO DAILY PRN 04/29/17 Fluvoxamine Maleate [Luvox] 100 mg PO QHS 11/04/17 Rifaximin [Xifaxan] 550 mg PO BID 11/04/17 Ursodiol [Actigall] 300 mg PO BID 11/04/17 Carbamazepine [Carbatrol] 100 mg PO BID 08/19/18 Cholecalciferol (Vitamin D3) [Vitamin D3] 50,000 unit PO SA 08/19/18 Dicyclomine HCl [Bentyl] 10 mg PO ACHS 08/19/18 Fluticasone Propionate [Flonase Allergy Relief] 15.8 ml NS BID PRN 08/19/18 Sucralfate [Carafate] 1 gm PO ACHS 08/19/18 Omeprazole [Prilosec] 40 mg PO DAILY #0 08/20/18 Baclofen 10 mg PO QHS 01/09/19 Lactulose [Chronulac] 20 gm PO TID 01/09/19 Insulin Degludec [Tresiba Flextouch U-100] 20 unit SQ DAILY #0 01/10/19 Insulin Lispro [Humalog KwikPen] See Protocol SC ACHS insuln.pen 01/10/19 Pregabalin [Lyrica] 50 mg PO BID 11/06/19 Primary Care Physician: Janay Canchola MD [Primary Care Provider] - Test Results: Test results from this visit will be discussed in further detail at your follow- up appointment, if applicable. Please Follow Up With: Alan Grajeda MD - call for appointment [phone] When: 10-12 days
--- NOTE | 2019-11-09 10:41 | PN_ITS ---
Patient Problems: Active and Suspected Problems Cellulitis (Acute) Reason for Visit: Follow-up on right thigh abscess Subjective: Patient was seen and examined. Eager to be discharged as she wants to spend Chanell luh with her children. Complains of slight nausea this morning. Denied any fever or chills. Objective: Physical exam: General: Alert, Oriented x3, Cooperative, No apparent distress HEENT: Atraumatic, PERRLA, EOMI, Normocephalic Oral: Moist Mucosa Neck: Supple, No JVD, Negative Carotid Bruits Lungs: Clear to auscultation, Normal air movement, No rhonchi, No wheeze Cardiovascular: Regular rate, Regular Rhythm, Normal S1, Normal S2, No murmurs Abdomen: Bowel Sounds Present, Soft, Non Tender, Non-Distended, No Hepato- splenomegaly Extremities: No clubbing, No cyanosis, No edema, Capillary Refill Less than 3 Seconds Skin: - - Right knee wrapped in bandage. Musculoskeletal: No Muscle Wasting, right knee wrapped in bandage Lymphatic: No Cervical, Supraclavicular, or Inguinal Adenopathy Neurological: Cranial nerves II-XII grossly intact, Neuro grossly intact Psych/Mental Status: Normal Affect, Appropriate, Anxious, Alert and oriented to time, place, person, mood and affect, no flapping tremors Vitals/I&O's: Vital Signs Temp Pulse Resp BP Pulse Ox 97.7 F L 75 18 157/80 H 95 11/09/19 09:00 11/09/19 09:00 11/09/19 09:00 11/09/19 09:00 11/09/19 09:00 Oxygen Flow Rate (L/min) 2 Oxygen Delivery Method Room Air Weight: 82.2 kg Body Mass Index (BMI) 27.5 Finger Stick Blood Glucose 217 Intake and Output for Last 24 Hours 11/07/19 11/08/19 11/09/19 23:59 23:59 23:59 Intake Total 3751.50 / 3991.50 3665 / 4265 758.25 / 758.25 Output Total 2203 / 2218 30 / 30 550 / 550 Balance 1548.50 / 1773.50 3635 / 4235 208.25 / 208.25 Microbiology Past 72 Hours 11/07/19 Unknown Tissue - Aerobic & Anaerobic Swabs Gram Stain - Final 11/07/19 Unknown Tissue - Aerobic & Anaerobic Swabs Wound Culture - Preliminary Staphylococcus aureus 11/07/19 Unknown Tissue - Other Gram Stain - Final 11/07/19 Unknown Tissue - Other Wound Culture - Preliminary Staphylococcus aureus Laboratory Results 11/08/19 11:49: POC Glucose 224 H 11/08/19 12:20: Vancomycin Trough 32.2 H 11/08/19 16:18: POC Glucose 202 H 11/08/19 21:42: POC Glucose 322 H 11/09/19 03:21: POC Glucose 244 H 11/09/19 05:30: WBC 3.1 L, RBC 3.34 L, Hgb 10.6 L, Hct 33.3 L, MCV 99.7 H, MCH 31.7, MCHC 31.8 L, RDW Std Deviation 52.7 H, RDW Coeff of Valentina 14.6, Plt Count 107 L, MPV 10.7, Immature Gran % (Auto) 0.300, Neut % (Auto) 68.6, Lymph % ( Auto) 13.0 L, Tucker % (Auto) 14.9 H, Eos % (Auto) 1.9, Baso % (Auto) 1.3 H, Absolute Neuts (auto) 2.1, Absolute Lymphs (auto) 0.40 L, Nucleated RBC % 0, Differential Comment SCANNED 11/09/19 05:30: Sodium 136, Potassium 3.9, Chloride 101, Carbon Dioxide 30.0, Anion Gap 5, BUN 18, Creatinine 3.52 H, Estim Creat Clear Calc 19.07, Est GFR (MDRD) Af Amer 18 L, Est GFR (MDRD) Non-Af 15 L, BUN/Creatinine Ratio 5.1 L, Glucose 249 H, Calcium 7.7 L, Total Bilirubin 2.30 H, AST 59 H, ALT 36, Alkaline Phosphatase 556 H, Total Protein 7.3, Albumin 2.1 L, Globulin 5.2 H, Albumin/Globulin Ratio 0.4 L 11/09/19 07:50: POC Glucose 251 H Current Medications Acetaminophen (Tylenol) 650 mg PO Q6H PRN PRN PRN Reason: Pain Score 1-3/Temp > 100.7 F Albuterol Sulfate (Ventolin Aerosols) 2.5 mg INHALATION Q2H PRN PRN PRN Reason: sob/wheezing Baclofen (Lioresal) 10 mg PO QHS [facility] Last Admin: 11/08/19 22:55 Dose: 10 mg Documented by: Carbamazepine (Tegretol Liquid) 100 mg PO BID [facility] Last Admin: 11/08/19 22:56 Dose: 100 mg Documented by: Dicyclomine HCl (Bentyl) 10 mg PO ACHS [facility] Last Admin: 11/09/19 06:35 Dose: 10 mg Documented by: Ergocalciferol (Vitamin D) 50,000 unit PO SA [facility] Last Admin: 11/07/19 11:12 Dose: Not Given Documented by: Fluticasone Propionate (Flonase Nasal [place]) 1 spray NASAL BID PRN Fluvoxamine Maleate (Luvox) 100 mg PO QHS [facility] Last Admin: 11/08/19 22:55 Dose: 100 mg Documented by: Furosemide (Lasix) 80 mg PO DAILY [facility] Last Admin: 11/08/19 10:19 Dose: 80 mg Documented by: Glucagon () 1 mg IM .X1 PRN PRN Reason: Hypoglycemia Sodium Chloride () 250 mls @ 15 mls/hr IV .[id number] PRN PRN Reason: Saline Flush Last Admin: 11/09/19 06:52 Dose: 15 mls/hr Documented by: Sodium Chloride () 250 mls @ 15 mls/hr IV .[id number] PRN PRN Reason: Additional IVPB Infusion Dextrose (Dextrose 10%-Water) 250 mls @ 999 mls/hr IV .Q16M PRN; Protocol PRN Reason: HYPOGLYCEMIA Sodium Chloride () 1,000 mls @ 200 mls/hr IV .Q5H [facility] Last Admin: 11/09/19 09:02 Dose: 200 mls/hr Documented by: Cefazolin Sodium () 1 gm in 50 mls @ 100 mls/hr IV Q12 [facility] Insulin Glargine (Lantus (Bkc)) 20 units SC DAILY [facility] Last Admin: 11/08/19 10:19 Dose: 20 units Documented by: Insulin Human Lispro (Humalog Kwikpen (Bkc)) 0 unit SC ACHS & 3AM YONI; Protocol Last Admin: 11/09/19 07:51 Dose: 4 units Documented by: Insulin Human Lispro (Humalog Kwikpen (Bkc)) 8 unit SC ACHS [facility] Last Admin: 11/09/19 07:51 Dose: 8 units Documented by: Lactulose (Chronulac, Cephulac) 20 gm PO TID [facility] Last Admin: 11/09/19 06:35 Dose: 20 gm Documented by: Magnesium Oxide (Mag-Ox 400) 400 mg PO BID [facility] Last Admin: 11/08/19 22:55 Dose: 400 mg Documented by: Morphine Sulfate () 2 mg IV Q3H PRN PRN PRN Reason: Pain Score 6-10/10 Last Admin: 11/07/19 04:50 Dose: 2 mg Documented by: Ondansetron HCl (Zofran) 4 mg IV Q6H PRN PRN PRN Reason: NAUSEA/VOMITING Last Admin: 11/09/19 04:27 Dose: 4 mg Documented by: Oxycodone HCl (Oxyir) 5 mg PO Q4H PRN PRN PRN Reason: Pain Score 4-5/10 Last Admin: 11/09/19 03:23 Dose: 5 mg Documented by: Pantoprazole Sodium (Protonix) 40 mg PO DAILY [facility] Last Admin: 11/08/19 10:18 Dose: 40 mg Documented by: Potassium Chloride (K-Dur) 20 meq PO BID [facility] Last Admin: 11/08/19 22:57 Dose: 20 meq Documented by: Pregabalin (Lyrica) 50 mg PO BID [facility] Last Admin: 11/08/19 22:56 Dose: 50 mg Documented by: Prochlorperazine Edisylate (Compazine Iv) 10 mg IV Q6H PRN PRN PRN Reason: NAUSEA/VOMITING Rifaximin (Xifaxan) 550 mg PO BID [facility] Last Admin: 11/08/19 22:55 Dose: 550 mg Documented by: Senna/Docusate Sodium (Senokot-S, Vy-Colace) 1 tablet PO DAILY PRN PRN PRN Reason: Constipation Sodium Chloride () 10 - 40 ml IV UD PRN PRN Reason: SALINE FLUSH Last Admin: 11/09/19 04:28 Dose: 10 ml Documented by: Sucralfate (Carafate) 1 gm PO 1HR_ACHS [facility] Last Admin: 11/09/19 06:35 Dose: 1 gm Documented by: Ursodiol (Anthony) 250 mg PO BID [facility] Last Admin: 11/08/19 22:56 Dose: 250 mg Documented by: STROKE Vital Signs/Narrative: Vital Signs Temp Pulse Resp BP Pulse Ox 11/09/19 09:00 97.7 F L 75 18 157/80 H 95 11/09/19 07:12 94 Medical Necessity - Tobacco Use Smoking Status: Never smoker Assessment/Plan All Active Problems Cellulitis (Acute) 1. Right staph aureus posterior thigh abscess/popliteal fossa cellulitis, present on admission Status post I&D of right thigh abscess Her operative cultures are growing staph aureus, rest of cultures are pending Off IV vancomycin on account of worsening kidney function Switch to cefazolin ID following 2. JULIANNE, pre-renal, Cr is worse at 3.52, baseline Cr 0.74 Hold spironolactone and Lasix Continue on IV fluid Kidney bladder ultrasound, UA Nephrology consult Curly labs in a.m. 3. Type 2 DM, BS are fairly controlled, On Lantus, scheduled Lispro, ISS Will increase Lantus to 22 units nightly, continue with scheduled lispro and insulin sliding scale 4. Autoimmune hepatitis/cirrhosis of liver No current hepatic encephalopathy On lactulose, rifaximin Hold spironolactone and lasix for now on account of JULIANNE 5. DVT PPx- early ambulation, not on chemical prophylaxis on account of thrombocytopenia Code Visit Inpatient E&M: 02860 Subs Hosp L2
--- NOTE | 2019-11-09 11:19 | CASEMGMT ---
RN CM updated that patient may benefit from HHC at discharge. TAMIKO CM in to provided patient with list of HHC companies in-network with patient's insurance. Patient to review list and provide choice. CM will continue to follow this patient and plan for a safe discharge.
[2019-11-09] MEDS: Cefazolin 1 GM/50 ML BAG IV ×2 (11:21→22:36)
[2019-11-09 11:56] LABS: Bedside Glucose 214 mg/dL (70-110)
[2019-11-09 12:07] LABS: Pathologist Review Reviewed
[2019-11-09 12:27] VITALS: BP 145/84; PULSE 69; RESP 18; TEMP 36.4; O2SAT 95
--- NOTE | 2019-11-09 12:28 | NURSING ---
Patient called out stating something didn't feel right Upon assessment, c/o of lightheadedness, dizziness and hallucinations. Patient very drowsy and not keeping eyes open for conversation. Vitals stable. BG stable. PERRLA. Yris/Ox3. Dr. Clark notified face to face at this time.
[2019-11-09 12:35] LABS: Bedside Glucose 234 mg/dL (70-110)
[2019-11-09] MEDS: proCHLORPERazine 10 MG/2 ML Vial IV (12:59)
[2019-11-09 13:39] LABS: Ammonia < 10.0 umol/L (11-32)
[2019-11-09 13:50] LABS: Vancomycin, Random Level 29.4 ug/mL (0.0-15.0)
[2019-11-09 14:07] LABS: Pathologist Review Reviewed
[2019-11-09 15:37] VITALS: BP 118/81; PULSE 62; RESP 16; TEMP 37.1; O2SAT 96
[2019-11-09 15:56] LABS: Bedside Glucose 215 mg/dL (70-110)
[2019-11-09 16:20] LABS: Anion Gap 6 (5-15); BUN 20 mg/dL (7-18); BUN/Creat Ratio 5.5 RATIO (10-20); Calcium,Total 7.5 mg/dL (8.5-10.1); Chloride 104 mmol/L (98-107); Creatinine, Serum 3.66 mg/dL (0.55-1.02); EST Glomerular Filtration Rate 14 mL/min (>60); Est Glom Filt Rate - Afr Amer 17 mL/min (>60); Estimated Creatinine Clearance 18.34 ml/min; Glucose 235 mg/dL (74-106); Sodium Level 136 mmol/L (136-145)
[2019-11-09 18:35] LABS: Color, Urine Yellow (Yellow); Glucose, Dipstick 50 mg/dl (Normal); Ketone-Dipstick Negative (Negative); Leukocyte Esterase-Dipstick 100 /ul (Negative); Nitrite-Dipstick Negative (Negative); Occult Blood-Urine 150 /ul (Negative); Protein-Dipstick Negative (Negative); Specific Gravity, Urine 1.015 (1.002-1.030); Urine Bilirubin Dipstick Negative (Negative); Urine Clarity Sl. Cloudy (Clear); Urine Urobilinogen Normal (Normal)
[2019-11-09 22:12] VITALS: BP 114/66; PULSE 69; RESP 16; TEMP 36.4; O2SAT 96
[2019-11-09] MEDS: Magnesium Oxide 400 MG Tablet PO (22:18)
[2019-11-09] MEDS: Ursodiol 250 MG Tablet PO (22:18)
[2019-11-09] MEDS: carBAMazepine 200 MG/10 ML UDC 100 MG PO (22:18)
[2019-11-09] MEDS: rifAXIMin 550 MG Tablet PO (22:18)
[2019-11-09 22:31] LABS: Bedside Glucose 267 mg/dL (70-110)
[2019-11-09] MEDS: Baclofen 10 MG Tablet PO (22:33)
[2019-11-09] MEDS: fluvoxaMINE Maleate 50 MG Tablet 100 MG PO (22:33)
[2019-11-10] MEDS: 0.9% Normal Saline 1,000 ML 200 ML IV ×2 (00:24→05:14)
[2019-11-10] MEDS: Insulin Lispro 100 UNIT/ML INSULN.PEN SC ×5 (03:13→21:21)
[2019-11-10 03:18] VITALS: BP 107/66; PULSE 72; RESP 18; TEMP 36.6; O2SAT 95
[2019-11-10 04:06] LABS: Bedside Glucose 167 mg/dL (70-110)
[2019-11-10 06:05] LABS: Absolute Lymphocyte Count 0.44 X10^3/uL (0.83-4.51); Absolute Neutrophil Count 1.7 X10^3/uL (2.0-7.7); Basophil# 0.04 X10^3/uL; Basophil% 1.5 % (0-1); Eosinophil# 0.06 X10^3/uL; Eosinophils% 2.3 % (0-5); Hematocrit 29.3 % (37-47); Hemoglobin 9.3 g/dL (12.0-15.0); Lymphocyte # 0.44 X10^3/ul (4.0); Lymphocyte % 16.8 % (19-41); Mean Corp Hgb Conc 31.7 g/dL (32-36); Mean Corpuscular Hgb 31.8 pg (27.0-32.0); Mean Corpuscular Volume 100.3 fL (81-99); Mean Platelet Vol. 11.2 fl (6.2-12.0); Monocyte# 0.38 X10^3/uL; Monocyte% 14.5 % (0-10); NRBC Flagged by Analyzer 0 % (0-5); Neutrophil # 1.69 X10^3/uL (2.7-7.7); Neutrophil % 64.5 % (47-70); POSITIVE COUNT YES; POSITIVE DIFFERENTIAL YES; Platelet Count 84 K/mm3 (150-450); RBC Distribution Width CV 14.6 % (11.6-14.6); Red Blood Count 2.92 M/mm3 (4.2-5.4); White Blood Count 2.6 K/mm3 (4.4-11.0)
[2019-11-10 06:08] LABS: Differential Indicated SCAN CRITERIA MET
[2019-11-10 06:47] LABS: Albumin, Serum 1.6 g/dL (3.2-5.0); BUN 21 mg/dL (7-18); BUN/Creat Ratio 5.4 RATIO (10-20); Chloride 109 mmol/L (98-107); Creatinine, Serum 3.86 mg/dL (0.55-1.02); EST Glomerular Filtration Rate 13 mL/min (>60); Est Glom Filt Rate - Afr Amer 16 mL/min (>60); Estimated Creatinine Clearance 17.39 ml/min; Glucose 179 mg/dL (74-106); Phosphorus 3.4 mg/dL (2.5-4.9); Potassium 3.6 mmol/L (3.5-5.1); Sodium Level 140 mmol/L (136-145)
[2019-11-10 06:49] LABS: Differential Comment SCANNED
[2019-11-10] MEDS: Sucralfate 1 GM Tablet PO ×4 (06:54→21:13)
[2019-11-10] MEDS: Dicyclomine 10 MG Capsule PO ×4 (06:54→21:14)
[2019-11-10] MEDS: Insulin Lispro 100 UNIT/ML INSULN.PEN 8 UNIT SC ×4 (06:55→21:22)
[2019-11-10 07:36] LABS: Bedside Glucose 168 mg/dL (70-110)
[2019-11-10] MEDS: 0.9% Saline Lock 10 ML Syringe IV ×2 (08:36→23:16)
[2019-11-10] MEDS: Ondansetron 4 MG/2 ML Vial IV ×3 (08:36→21:28)
--- NOTE | 2019-11-10 10:15 | CASEMGMT ---
TAMIKO MELLO in to discuss HHC with patient. Patient would like [facility] as she has had them in the past. TAMIKO MELLO sent referral to [facility] and awaiting acceptance.
--- NOTE | 2019-11-10 10:22 | PN_ITS ---
Patient Problems: Active and Suspected Problems Cellulitis (Acute) JULIANNE (acute kidney injury) (Acute) Reason for Visit: Follow-up on right thigh abscess/JULIANNE Subjective: Patient was seen and examined. She complains of intermittent headache. Denied any nausea or vomiting Objective: Physical exam: General: Alert, Oriented x3, Cooperative, No apparent distress HEENT: Atraumatic, PERRLA, EOMI, Normocephalic Oral: Moist Mucosa Neck: Supple, No JVD, Negative Carotid Bruits Lungs: Clear to auscultation, Normal air movement, No rhonchi, No wheeze Cardiovascular: Regular rate, Regular Rhythm, Normal S1, Normal S2, No murmurs Abdomen: Bowel Sounds Present, Soft, Non Tender, Non-Distended, No Hepato-sple nomegaly Extremities: No clubbing, No cyanosis, No edema, Capillary Refill Less than 3 Seconds Skin: - - Right knee wrapped in bandage. Musculoskeletal: No Muscle Wasting, right knee wrapped in bandage Lymphatic: No Cervical, Supraclavicular, or Inguinal Adenopathy Neurological: Cranial nerves II-XII grossly intact, Neuro grossly intact Psych/Mental Status: Normal Affect, Appropriate, Anxious, Alert and oriented to time, place, person, mood and affect, no flapping tremors Vitals/I&O's: Vital Signs Temp Pulse Resp BP Pulse Ox 97.9 F 72 18 107/66 95 11/10/19 03:18 11/10/19 03:18 11/10/19 03:18 11/10/19 03:18 11/10/19 03:18 Oxygen Flow Rate (L/min) 2 Oxygen Delivery Method Room Air Weight: 82.2 kg Body Mass Index (BMI) 27.5 Finger Stick Blood Glucose 217 Intake and Output for Last 24 Hours 11/08/19 11/09/19 11/10/19 23:59 23:59 23:59 Intake Total 3665 / 4265 3868.58 / 4348.58 / Output Total 1100 / 1500 600 / 600 Balance 3635 / 4235 2768.58 / 2848.58 1393.34 / 1393.34 Microbiology Past 72 Hours 11/07/19 Unknown Tissue - Aerobic & Anaerobic Swabs Gram Stain - Final 11/07/19 Unknown Tissue - Aerobic & Anaerobic Swabs Wound Culture - Final Staphylococcus aureus 11/07/19 Unknown Tissue - Aerobic & Anaerobic Swabs Anaerobic Culture - Final No anaerobic bacteria isolated. 11/07/19 Unknown Tissue - Other Gram Stain - Final 11/07/19 Unknown Tissue - Other Wound Culture - Final Staphylococcus aureus 11/07/19 Unknown Tissue - Other Anaerobic Culture - Final No anaerobic bacteria isolated. Laboratory Results 11/07/19 06:27: Diff Path Review Reviewed 11/08/19 06:11: Diff Path Review Reviewed 11/09/19 11:25: POC Glucose 214 H 11/09/19 12:17: POC Glucose 234 H 11/09/19 13:05: Random Vancomycin 29.4 H 11/09/19 13:05: Ammonia < 10.0 L 11/09/19 15:40: Sodium 136, Potassium 4.0, Chloride 104, Carbon Dioxide 26.0, Anion Gap 6, BUN 20 H, Creatinine 3.66 H, Estim Creat Clear Calc 18.34, Est GFR (MDRD) Af Amer 17 L, Est GFR (MDRD) Non-Af 14 L, BUN/Creatinine Ratio 5.5 L, Glucose 235 H, Calcium 7.5 L 11/09/19 15:48: POC Glucose 215 H 11/09/19 18:15: Urine Color Yellow, Urine Clarity Sl. Cloudy, Urine pH 6.0, Ur Specific [place] 1.015, Urine Protein Negative, Urine Glucose (UA) 50 H, Urine Ketones Negative, Urine Occult Blood 150 H, Urine Nitrite Negative, Urine Bilirubin Negative, Urine Urobilinogen Normal, Ur Leukocyte Esterase 100 H 11/09/19 22:11: POC Glucose 267 H 11/10/19 03:11: POC Glucose 167 H 11/10/19 05:15: WBC 2.6 L, RBC 2.92 L, Hgb 9.3 L, Hct 29.3 L, MCV 100.3 H, MCH 31.8, MCHC 31.7 L, RDW Std Deviation 53.0 H, RDW Coeff of Valentina 14.6, Plt Count 84 L, MPV 11.2, Immature Gran % (Auto) 0.400, Neut % (Auto) 64.5, Lymph % (Auto) 16.8 L, [place] % (Auto) 14.5 H, Eos % (Auto) 2.3, Baso % (Auto) 1.5 H, Absolute Neuts (auto) 1.7 L, Absolute Lymphs (auto) 0.44 L, Nucleated RBC % 0, Differential Comment SCANNED, Diff Path Review March foll 11/10/19 05:15: Sodium 140, Potassium 3.6, Chloride 109 H, Carbon Dioxide 25.0, BUN 21 H, Creatinine 3.86 H, Estim Creat Clear Calc 17.39, Est GFR (MDRD) Af Amer 16 L, Est GFR (MDRD) Non-Af 13 L, BUN/Creatinine Ratio 5.4 L, Glucose 179 H , Calcium 7.0 L, Phosphorus 3.4, Albumin 1.6 L 11/10/19 06:49: POC Glucose 168 H Current Medications Acetaminophen (Tylenol) 650 mg PO Q6H PRN PRN PRN Reason: Pain Score 1-3/Temp > 100.7 F Albuterol Sulfate (Ventolin Aerosols) 2.5 mg INHALATION Q2H PRN PRN PRN Reason: sob/wheezing Baclofen (Lioresal) 10 mg PO QHS [facility] Last Admin: 11/09/19 22:33 Dose: 10 mg Documented by: Carbamazepine (Tegretol Liquid) 100 mg PO BID [facility] Last Admin: 11/09/19 22:18 Dose: 100 mg Documented by: Dicyclomine HCl (Bentyl) 10 mg PO ACHS [facility] Last Admin: 11/10/19 06:54 Dose: 10 mg Documented by: Ergocalciferol (Vitamin D) 50,000 unit PO SA [facility] Last Admin: 11/07/19 11:12 Dose: Not Given Documented by: Fluticasone Propionate (Flonase Nasal [place]) 1 spray NASAL BID PRN Fluvoxamine Maleate (Luvox) 100 mg PO QHS [facility] Last Admin: 11/09/19 22:33 Dose: 100 mg Documented by: Furosemide (Lasix) 80 mg PO DAILY [facility] Last Admin: 11/08/19 10:19 Dose: 80 mg Documented by: Glucagon () 1 mg IM .X1 PRN PRN Reason: Hypoglycemia Sodium Chloride () 250 mls @ 15 mls/hr IV .[id number] PRN PRN Reason: Saline Flush Last Infusion: 11/09/19 11:20 Dose: 0 mls/hr Documented by: Sodium Chloride () 250 mls @ 15 mls/hr IV .[id number] PRN PRN Reason: Additional IVPB Infusion Dextrose (Dextrose 10%-Water) 250 mls @ 999 mls/hr IV .Q16M PRN; Protocol PRN Reason: HYPOGLYCEMIA Sodium Chloride () 1,000 mls @ 200 mls/hr IV .Q5H [facility] Last Admin: 11/10/19 05:14 Dose: 200 mls/hr Documented by: Cefazolin Sodium () 1 gm in 50 mls @ 100 mls/hr IV Q12 [facility] Last Infusion: 11/09/19 23:10 Dose: Infused Documented by: Insulin Glargine (Lantus ([facility])) 22 units SC DAILY [facility] Last Admin: 11/09/19 11:28 Dose: 22 u Documented by: Insulin Human Lispro (Humalog Kwikpen ([facility])) 0 unit SC ACHS & 3AM YONI; Protocol Last Admin: 11/10/19 06:54 Dose: 2 units Documented by: Insulin Human Lispro (Humalog Kwikpen ([facility])) 8 unit SC ACHS [facility] Last Admin: 11/10/19 06:55 Dose: 8 units Documented by: Lactulose (Chronulac, Cephulac) 20 gm PO TID [facility] Last Admin: 11/10/19 05:16 Dose: Not Given Documented by: Magnesium Oxide (Mag-Ox 400) 400 mg PO BID [facility] Last Admin: 11/09/19 22:18 Dose: 400 mg Documented by: Ondansetron HCl (Zofran) 4 mg IV Q6H PRN PRN PRN Reason: NAUSEA/VOMITING Last Admin: 11/10/19 08:36 Dose: 4 mg Documented by: Pantoprazole Sodium (Protonix) 40 mg PO DAILY [facility] Last Admin: 11/09/19 13:00 Dose: Not Given Documented by: Potassium Chloride (K-Dur) 20 meq PO BID [facility] Last Admin: 11/09/19 22:18 Dose: 20 meq Documented by: Pregabalin (Lyrica) 50 mg PO BID [facility] Last Admin: 11/09/19 12:48 Dose: Not Given Documented by: Rifaximin (Xifaxan) 550 mg PO BID [facility] Last Admin: 11/09/19 22:18 Dose: 550 mg Documented by: Senna/Docusate Sodium (Senokot-S, Vy-Colace) 1 tablet PO DAILY PRN PRN PRN Reason: Constipation Sodium Chloride () 10 - 40 ml IV UD PRN PRN Reason: SALINE FLUSH Last Admin: 11/10/19 08:36 Dose: 10 ml Documented by: Sucralfate (Carafate) 1 gm PO 1HR_ACHS [facility] Last Admin: 11/10/19 06:54 Dose: 1 gm Documented by: Ursodiol (Anthony) 250 mg PO BID [facility] Last Admin: 11/09/19 22:18 Dose: 250 mg Documented by: Medical Necessity - Tobacco Use Smoking Status: Never smoker Assessment/Plan All Active Problems Cellulitis (Acute) JULIANNE (acute kidney injury) (Acute) 1. Right MSSA posterior thigh abscess/popliteal fossa cellulitis, present on ad mission Status post I&D of right thigh abscess Intra-operative cultures are growing staph aureus, rest of cultures are pending Off IV vancomycin on account of worsening kidney function On cefazolin ID following 2. JULIANNE, pre-renal likely secondary to ATN/contrast nephropathy/vancomycin toxicity Cr 3.86, baseline Cr 0.74 Continue to hold spironolactone and Lasix Continue on reduced IVF 75cc/hr Renal ultrasound shows no hydronephrosis Nephrology following Repeat labs in a.m. 3. Type 2 DM, BS are fairly controlled, On Lantus, scheduled Lispro, ISS Continue with scheduled lispro and insulin sliding scale 4. Autoimmune hepatitis/cirrhosis of liver No current hepatic encephalopathy On lactulose, rifaximin Off spironolactone and lasix for now on account of JULIANNE 5. DVT PPx- early ambulation, not on chemical prophylaxis on account of thrombocytopenia Code Visit Inpatient E&M: 86261 Subs Hosp L2
[2019-11-10 10:30] VITALS: O2SAT 97
--- NOTE | 2019-11-10 10:31 | CON.PCM_ITS ---
Problem List (1) JULIANNE (acute kidney injury) Status: Acute Consultation - Renal 11/10/19 PCP/ Referring MD: Requesting physician: [] Primary care physician: Janay Canchola MD Reason for Consultation:: JULIANNE - History of Present Illness History of Present Illness: The patient is a 49 year old F presented to the hospital about 5 days ago with complaints of right popliteal fossa abscess. She is status post incision and drainage. Renal consulted for acute renal failure. Renal function at baseline is normal with a creatinine of 0.7. Creatinine today is up to 3.8. She has known history of cirrhosis secondary to autoimmune hepatitis, Recurrent ascites status post TIPS procedure. Did not require paracentesis recently. On Lasix and Aldactone at home. Currently denies any urinary complaints. Blood pressure is borderline low. - Allergies Allergies: Allergies adhesive Allergy (Verified 01/09/19 07:10) Rash escitalopram oxalate [From Lexapro] Allergy (Verified 01/09/19 07:10) blindness gabapentin [From Neurontin] Allergy (Verified 01/09/19 07:10) Alan Jez's Syndrome lamotrigine [From Lamictal] Allergy (Verified 01/09/19 07:10) Blindness Preservatives Allergy (Uncoded 01/09/19 07:10) passed out, lungs deflated Preservatives in various foods including packaged gladys cheese, lettuce, and seafood. sour cream Allergy (Uncoded 01/09/19 07:10) Anaphylaxis - Current Medications Current Medications: Current Medications Acetaminophen (Tylenol) 650 mg PO Q6H PRN PRN PRN Reason: Pain Score 1-3/Temp > 100.7 F Albuterol Sulfate (Ventolin Aerosols) 2.5 mg INHALATION Q2H PRN PRN PRN Reason: sob/wheezing Baclofen (Lioresal) 10 mg PO QHS [facility] Last Admin: 11/09/19 22:33 Dose: 10 mg Documented by: Carbamazepine (Tegretol Liquid) 100 mg PO BID [facility] Last Admin: 11/09/19 22:18 Dose: 100 mg Documented by: Dicyclomine HCl (Bentyl) 10 mg PO ACHS [facility] Last Admin: 11/10/19 06:54 Dose: 10 mg Documented by: Ergocalciferol (Vitamin D) 50,000 unit PO SA [facility] Last Admin: 11/07/19 11:12 Dose: Not Given Documented by: Fluticasone Propionate (Flonase Nasal [place]) 1 spray NASAL BID PRN Fluvoxamine Maleate (Luvox) 100 mg PO QHS [facility] Last Admin: 11/09/19 22:33 Dose: 100 mg Documented by: Glucagon () 1 mg IM .X1 PRN PRN Reason: Hypoglycemia Sodium Chloride () 250 mls @ 15 mls/hr IV .[id number] PRN PRN Reason: Saline Flush Last Infusion: 11/09/19 11:20 Dose: 0 mls/hr Documented by: Sodium Chloride () 250 mls @ 15 mls/hr IV .[id number] PRN PRN Reason: Additional IVPB Infusion Dextrose (Dextrose 10%-Water) 250 mls @ 999 mls/hr IV .Q16M PRN; Protocol PRN Reason: HYPOGLYCEMIA Cefazolin Sodium () 1 gm in 50 mls @ 100 mls/hr IV Q12 YONI Last Infusion: 11/09/19 23:10 Dose: Infused Documented by: Sodium Chloride () 1,000 mls @ 75 mls/hr IV .[id number] YONI Insulin Glargine (Lantus ([facility])) 22 units SC DAILY [facility] Last Admin: 11/09/19 11:28 Dose: 22 u Documented by: Insulin Human Lispro (Humalog Kwikpen ([facility])) 0 unit SC ACHS & 3AM YONI; Protocol Last Admin: 11/10/19 06:54 Dose: 2 units Documented by: Insulin Human Lispro (Humalog Kwikpen ([facility])) 8 unit SC ACHS [facility] Last Admin: 11/10/19 06:55 Dose: 8 units Documented by: Lactulose (Chronulac, Cephulac) 20 gm PO TID [facility] Last Admin: 11/10/19 05:16 Dose: Not Given Documented by: Magnesium Oxide (Mag-Ox 400) 400 mg PO BID [facility] Last Admin: 11/09/19 22:18 Dose: 400 mg Documented by: Ondansetron HCl (Zofran) 4 mg IV Q6H PRN PRN PRN Reason: NAUSEA/VOMITING Last Admin: 11/10/19 08:36 Dose: 4 mg Documented by: Pantoprazole Sodium (Protonix) 40 mg PO DAILY [facility] Last Admin: 11/09/19 13:00 Dose: Not Given Documented by: Potassium Chloride (K-Dur) 20 meq PO BID [facility] Last Admin: 11/09/19 22:18 Dose: 20 meq Documented by: Pregabalin (Lyrica) 50 mg PO BID [facility] Last Admin: 11/09/19 12:48 Dose: Not Given Documented by: Rifaximin (Xifaxan) 550 mg PO BID [facility] Last Admin: 11/09/19 22:18 Dose: 550 mg Documented by: Senna/Docusate Sodium (Senokot-S, Vy-Colace) 1 tablet PO DAILY PRN PRN PRN Reason: Constipation Sodium Chloride () 10 - 40 ml IV UD PRN PRN Reason: SALINE FLUSH Last Admin: 11/10/19 08:36 Dose: 10 ml Documented by: Sucralfate (Carafate) 1 gm PO 1HR_ACHS [facility] Last Admin: 11/10/19 06:54 Dose: 1 gm Documented by: Ursodiol (Anthony) 250 mg PO BID [facility] Last Admin: 11/09/19 22:18 Dose: 250 mg Documented by: - Past Medical History Past Medical History (Chronic Problems): Chronic Problems Autoimmune hepatitis (Chronic) Diabetes mellitus (Chronic) Liver cirrhosis (Chronic) Reilly thyroiditis (Chronic) Autoimmune hepatitis (Chronic) Schizoaffective disorder (Chronic) Bipolar disorder (Chronic) Splenomegaly (Chronic) - Past Surgical History Surgical History: - - Appendectomy, cholecystectomy, partial hysterectomy. - Social History Smoking Status: Never smoker Alcohol: None - Family History Paternal History Items: - - father with heart attacks and strokes Sibling History Items: Hypertension, - - Her sister had hyperthyroidism Maternal History Items: Heart Disease - Her grandmother had heart failure, - - She reported her mother had low blood pressure Review of Systems Constitutional: Denies: Chills, Fever, Weight Change HEENT: Denies: Head Aches, Sinus Congestion, Sinus Drainage Cardiovascular: Denies: Chest Pain, Palpitations Respiratory: Denies: Cough, Shortness of breath at rest, Sputum production Gastrointestinal: Denies: Abdominal Pain, Nausea, Vomiting Genitourinary: Denies: Dysuria Musculoskeletal: Denies: Joint Pain, Joint Tenderness Skin: Denies: Rash, Wounds Neurological: Denies: Numbness, Tingling, Focal weakness Psychiatric: Denies: Anxiety, Depression, Homicidal Ideations, Suicidal Ideations Hematologic/ Lymphatic: Denies: Easy Bruising, Easy Bleeding Patient Problems: Active and Suspected Problems Cellulitis (Acute) JULIANNE (acute kidney injury) (Acute) - Physical Exam Vitals/I&O's: Vital Signs Temp Pulse Resp BP Pulse Ox 97.9 F 72 18 107/66 95 11/10/19 03:18 11/10/19 03:18 11/10/19 03:18 11/10/19 03:18 11/10/19 03:18 Oxygen Flow Rate (L/min) 2 Oxygen Delivery Method Room Air Weight: 82.2 kg Body Mass Index (BMI) 27.5 Finger Stick Blood Glucose 217 Intake and Output for Last 24 Hours 11/08/19 11/09/19 11/10/19 23:59 23:59 23:59 Intake Total 3665 / 4265 3868.58 / 4348.58 1993.34 / 1993.34 Output Total 1100 / 1500 600 / 600 Balance 3635 / 4235 2768.58 / 2848.58 1393.34 / 1393.34 General: Alert, Oriented x3, Cooperative HEENT: Atraumatic, PERRLA, EOMI, Normocephalic Neck: Supple, No JVD, Negative Carotid Bruits Lungs: Clear to auscultation, Normal air movement Cardiovascular: Regular rate, No murmurs Abdomen: Bowel Sounds Present, Soft, Non Tender Extremities: No edema, Capillary Refill Less than 3 Seconds Skin: No rashes, No breakdown Musculoskeletal: No Tenderness to Palpation of Joints or Extremities Neurological: Cranial nerves II-XII grossly intact Psych/Mental Status: Normal Affect, Appropriate Microbiology Past 72 Hours 11/07/19 Unknown Tissue - Aerobic & Anaerobic Swabs Gram Stain - Final 11/07/19 Unknown Tissue - Aerobic & Anaerobic Swabs Wound Culture - Final Staphylococcus aureus 11/07/19 Unknown Tissue - Aerobic & Anaerobic Swabs Anaerobic Culture - Final No anaerobic bacteria isolated. 11/07/19 Unknown Tissue - Other Gram Stain - Final 11/07/19 Unknown Tissue - Other Wound Culture - Final Staphylococcus aureus 11/07/19 Unknown Tissue - Other Anaerobic Culture - Final No anaerobic bacteria isolated. Laboratory Results 11/07/19 06:27: Diff Path Review Reviewed 11/08/19 06:11: Diff Path Review Reviewed 11/09/19 11:25: POC Glucose 214 H 11/09/19 12:17: POC Glucose 234 H 11/09/19 13:05: Random Vancomycin 29.4 H 11/09/19 13:05: Ammonia < 10.0 L 11/09/19 15:40: Sodium 136, Potassium 4.0, Chloride 104, Carbon Dioxide 26.0, Anion Gap 6, BUN 20 H, Creatinine 3.66 H, Estim Creat Clear Calc 18.34, Est GFR (MDRD) Af Amer 17 L, Est GFR (MDRD) Non-Af 14 L, BUN/Creatinine Ratio 5.5 L, Glucose 235 H, Calcium 7.5 L 11/09/19 15:48: POC Glucose 215 H 11/09/19 18:15: Urine Color Yellow, Urine Clarity Sl. Cloudy, Urine pH 6.0, Ur Specific [place] 1.015, Urine Protein Negative, Urine Glucose (UA) 50 H, Urine Ketones Negative, Urine Occult Blood 150 H, Urine Nitrite Negative, Urine Bilirubin Negative, Urine Urobilinogen Normal, Ur Leukocyte Esterase 100 H 11/09/19 22:11: POC Glucose 267 H 11/10/19 03:11: POC Glucose 167 H 11/10/19 05:15: WBC 2.6 L, RBC 2.92 L, Hgb 9.3 L, Hct 29.3 L, MCV 100.3 H, MCH 31.8, MCHC 31.7 L, RDW Std Deviation 53.0 H, RDW Coeff of Valentina 14.6, Plt Count 84 L, MPV 11.2, Immature Gran % (Auto) 0.400, Neut % (Auto) 64.5, Lymph % (Auto) 16.8 L, [place] % (Auto) 14.5 H, Eos % (Auto) 2.3, Baso % (Auto) 1.5 H, Absolute Neuts (auto) 1.7 L, Absolute Lymphs (auto) 0.44 L, Nucleated RBC % 0, Differential Comment SCANNED, Diff Path Review March11/10/19 05:15: Sodium 140, Potassium 3.6, Chloride 109 H, Carbon Dioxide 25.0, BUN 21 H, Creatinine 3.86 H, Estim Creat Clear Calc 17.39, Est GFR (MDRD) Af Amer 16 L, Est GFR (MDRD) Non-Af 13 L, BUN/Creatinine Ratio 5.4 L, Glucose 179 H , Calcium 7.0 L, Phosphorus 3.4, Albumin 1.6 L 11/10/19 06:49: POC Glucose 168 H Current Medications Acetaminophen (Tylenol) 650 mg PO Q6H PRN PRN PRN Reason: Pain Score 1-3/Temp > 100.7 F Albuterol Sulfate (Ventolin Aerosols) 2.5 mg INHALATION Q2H PRN PRN PRN Reason: sob/wheezing Baclofen (Lioresal) 10 mg PO QHS [facility] Last Admin: 11/09/19 22:33 Dose: 10 mg Documented by: Carbamazepine (Tegretol Liquid) 100 mg PO BID [facility] Last Admin: 11/09/19 22:18 Dose: 100 mg Documented by: Dicyclomine HCl (Bentyl) 10 mg PO ACHS [facility] Last Admin: 11/10/19 06:54 Dose: 10 mg Documented by: Ergocalciferol (Vitamin D) 50,000 unit PO SA [facility] Last Admin: 11/07/19 11:12 Dose: Not Given Documented by: Fluticasone Propionate (Flonase Nasal [place]) 1 spray NASAL BID PRN Fluvoxamine Maleate (Luvox) 100 mg PO QHS [facility] Last Admin: 11/09/19 22:33 Dose: 100 mg Documented by: Glucagon () 1 mg IM .X1 PRN PRN Reason: Hypoglycemia Sodium Chloride () 250 mls @ 15 mls/hr IV .[id number] PRN PRN Reason: Saline Flush Last Infusion: 11/09/19 11:20 Dose: 0 mls/hr Documented by: Sodium Chloride () 250 mls @ 15 mls/hr IV .[id number] PRN PRN Reason: Additional IVPB Infusion Dextrose (Dextrose 10%-Water) 250 mls @ 999 mls/hr IV .Q16M PRN; Protocol PRN Reason: HYPOGLYCEMIA Cefazolin Sodium () 1 gm in 50 mls @ 100 mls/hr IV Q12 [facility] Last Infusion: 11/09/19 23:10 Dose: Infused Documented by: Sodium Chloride () 1,000 mls @ 75 mls/hr IV .[id number] [facility] Insulin Glargine (Lantus ([facility])) 22 units SC DAILY [facility] Last Admin: 11/09/19 11:28 Dose: 22 u Documented by: Insulin Human Lispro (Humalog Kwikpen ([facility])) 0 unit SC ACHS & 3AM [facility]; Protocol Last Admin: 11/10/19 06:54 Dose: 2 units Documented by: Insulin Human Lispro (Humalog Kwikpen ([facility])) 8 unit SC ACHS [facility] Last Admin: 11/10/19 06:55 Dose: 8 units Documented by: Lactulose (Chronulac, Cephulac) 20 gm PO TID [facility] Last Admin: 11/10/19 05:16 Dose: Not Given Documented by: Magnesium Oxide (Mag-Ox 400) 400 mg PO BID [facility] Last Admin: 11/09/19 22:18 Dose: 400 mg Documented by: Ondansetron HCl (Zofran) 4 mg IV Q6H PRN PRN PRN Reason: NAUSEA/VOMITING Last Admin: 11/10/19 08:36 Dose: 4 mg Documented by: Pantoprazole Sodium (Protonix) 40 mg PO DAILY [facility] Last Admin: 11/09/19 13:00 Dose: Not Given Documented by: Potassium Chloride (K-Dur) 20 meq PO BID [facility] Last Admin: 11/09/19 22:18 Dose: 20 meq Documented by: Pregabalin (Lyrica) 50 mg PO BID [facility] Last Admin: 11/09/19 12:48 Dose: Not Given Documented by: Rifaximin (Xifaxan) 550 mg PO BID [facility] Last Admin: 11/09/19 22:18 Dose: 550 mg Documented by: Senna/Docusate Sodium (Senokot-S, Vy-Colace) 1 tablet PO DAILY PRN PRN PRN Reason: Constipation Sodium Chloride () 10 - 40 ml IV UD PRN PRN Reason: SALINE FLUSH Last Admin: 11/10/19 08:36 Dose: 10 ml Documented by: Sucralfate (Carafate) 1 gm PO 1HR_ACHS [facility] Last Admin: 11/10/19 06:54 Dose: 1 gm Documented by: Ursodiol (Anthony) 250 mg PO BID [facility] Last Admin: 11/09/19 22:18 Dose: 250 mg Documented by: Assessment/Plan All Active Problems Cellulitis (Acute) JULIANNE (acute kidney injury) (Acute) Acute renal failure. Baseline creatinine is normal. Did receive a CT abdomen with 100 cc of contrast on the . Also received IV vancomycin for staph aureus with a trough level of 36. Creatinine started increasing on the . Urine analysis shows some white cells and RBCs, no protein CT abdomen and renal ultrasound did not show any hydronephrosis Blood pressure is on the lower side. Acute renal failure is likely ATN related to contrast and vancomycin. Plan DC Lasix and Aldactone Continue IV fluids, decrease rate to 75 cc an hour. Vancomycin has already been stopped and switched to cefazolin. We will check a urine sodium. Discussed with hospitalist
[2019-11-10 11:00] VITALS: BP 124/72; PULSE 71; RESP 16; TEMP 36.5; O2SAT 97
[2019-11-10] MEDS: 0.9% Normal Saline 1,000 ML 75 ML IV ×2 (11:09→21:15)
[2019-11-10] MEDS: Cefazolin 1 GM/50 ML BAG IV ×2 (11:11→21:14)
[2019-11-10] MEDS: rifAXIMin 550 MG Tablet PO ×2 (11:13→21:13)
[2019-11-10] MEDS: carBAMazepine 200 MG/10 ML UDC 100 MG PO ×2 (11:14→21:12)
[2019-11-10] MEDS: Ursodiol 250 MG Tablet PO ×2 (11:16→21:12)
[2019-11-10] MEDS: Pantoprazole Sodium 40 MG Tablet PO (11:16)
[2019-11-10] MEDS: Magnesium Oxide 400 MG Tablet PO ×2 (11:17→21:13)
[2019-11-10 11:25] LABS: Bedside Glucose 238 mg/dL (70-110)
--- NOTE | 2019-11-10 11:33 | CASEMGMT ---
RN FUNMILAYO received call from [facility] and they are able to accept the patient. RN FUNMILAYO updated that patient. CM will continue to follow this patient and plan for a safe discharge.
--- NOTE | 2019-11-10 12:14 | PN.ID_ITS ---
Patient Problems: Active and Suspected Problems Cellulitis (Acute) JULIANNE (acute kidney injury) (Acute) Subjective: Feeling better today, no fever, no abd pain, pain improved in RLE - Physical Exam Vitals/I&O's: Vital Signs Temp Pulse Resp BP Pulse Ox 97.7 F L 71 16 124/72 H 97 11/10/19 11:00 11/10/19 11:00 11/10/19 11:00 11/10/19 11:00 11/10/19 11:00 Oxygen Flow Rate (L/min) 2 Oxygen Delivery Method Room Air Weight: 82.2 kg Body Mass Index (BMI) 27.5 Finger Stick Blood Glucose 217 Intake and Output for Last 24 Hours 11/08/19 11/09/19 11/10/19 23:59 23:59 23:59 Intake Total 3665 / 4265 3868.58 / 4348.58 3043.34 / 3043.34 Output Total 30 / 30 1100 / 1500 600 / 600 Balance 3635 / 4235 2768.58 / 2848.58 2443.34 / 2443.34 General: Alert, Cooperative, No apparent distress Lungs: Clear to auscultation, Normal air movement Cardiovascular: Regular rate, Regular Rhythm Abdomen: Soft, Non Tender, Non-Distended Skin: Ulcer/ Wound Microbiology Past 72 Hours 11/07/19 Unknown Tissue - Aerobic & Anaerobic Swabs Gram Stain - Final 11/07/19 Unknown Tissue - Aerobic & Anaerobic Swabs Wound Culture - Final Staphylococcus aureus 11/07/19 Unknown Tissue - Aerobic & Anaerobic Swabs Anaerobic Culture - Final No anaerobic bacteria isolated. 11/07/19 Unknown Tissue - Other Gram Stain - Final 11/07/19 Unknown Tissue - Other Wound Culture - Final Staphylococcus aureus 11/07/19 Unknown Tissue - Other Anaerobic Culture - Final No anaerobic bacteria isolated. Laboratory Results 11/07/19 06:27: Diff Path Review Reviewed 11/09/19 12:17: POC Glucose 234 H 11/09/19 13:05: Random Vancomycin 29.4 H 11/09/19 13:05: Ammonia < 10.0 L 11/09/19 15:40: Sodium 136, Potassium 4.0, Chloride 104, Carbon Dioxide 26.0, Anion Gap 6, BUN 20 H, Creatinine 3.66 H, Estim Creat Clear Calc 18.34, Est GFR (MDRD) Af Amer 17 L, Est GFR (MDRD) Non-Af 14 L, BUN/Creatinine Ratio 5.5 L, Glucose 235 H, Calcium 7.5 L 11/09/19 15:48: POC Glucose 215 H 11/09/19 18:15: Urine Color Yellow, Urine Clarity Sl. Cloudy, Urine pH 6.0, Ur Specific [place] 1.015, Urine Protein Negative, Urine Glucose (UA) 50 H, Urine Ketones Negative, Urine Occult Blood 150 H, Urine Nitrite Negative, Urine Bilirubin Negative, Urine Urobilinogen Normal, Ur Leukocyte Esterase 100 H 11/09/19 22:11: POC Glucose 267 H 11/10/19 03:11: POC Glucose 167 H 11/10/19 05:15: WBC 2.6 L, RBC 2.92 L, Hgb 9.3 L, Hct 29.3 L, MCV 100.3 H, MCH 31.8, MCHC 31.7 L, RDW Std Deviation 53.0 H, RDW Coeff of Valentina 14.6, Plt Count 84 L, MPV 11.2, Immature Gran % (Auto) 0.400, Neut % (Auto) 64.5, Lymph % (Auto) 16.8 L, [place] % (Auto) 14.5 H, Eos % (Auto) 2.3, Baso % (Auto) 1.5 H, Absolute Neuts (auto) 1.7 L, Absolute Lymphs (auto) 0.44 L, Nucleated RBC % 0, Differential Comment SCANNED, Diff Path Review March11/10/19 05:15: Sodium 140, Potassium 3.6, Chloride 109 H, Carbon Dioxide 25.0, BUN 21 H, Creatinine 3.86 H, Estim Creat Clear Calc 17.39, Est GFR (MDRD) Af Amer 16 L, Est GFR (MDRD) Non-Af 13 L, BUN/Creatinine Ratio 5.4 L, Glucose 179 H , Calcium 7.0 L, Phosphorus 3.4, Albumin 1.6 L 11/10/19 06:49: POC Glucose 168 H 11/10/19 11:23: POC Glucose 238 H Current Medications Acetaminophen (Tylenol) 650 mg PO Q6H PRN PRN PRN Reason: Pain Score 1-3/Temp > 100.7 F Albuterol Sulfate (Ventolin Aerosols) 2.5 mg INHALATION Q2H PRN PRN PRN Reason: sob/wheezing Baclofen (Lioresal) 10 mg PO QHS [facility] Last Admin: 11/09/19 22:33 Dose: 10 mg Documented by: Carbamazepine (Tegretol Liquid) 100 mg PO BID [facility] Last Admin: 11/10/19 11:14 Dose: 100 mg Documented by: Dicyclomine HCl (Bentyl) 10 mg PO ACHS [facility] Last Admin: 11/10/19 11:15 Dose: 10 mg Documented by: Ergocalciferol (Vitamin D) 50,000 unit PO SA [facility] Last Admin: 11/07/19 11:12 Dose: Not Given Documented by: Fluticasone Propionate (Flonase Nasal [place]) 1 spray NASAL BID PRN Fluvoxamine Maleate (Luvox) 100 mg PO QHS [facility] Last Admin: 11/09/19 22:33 Dose: 100 mg Documented by: Glucagon () 1 mg IM .X1 PRN PRN Reason: Hypoglycemia Sodium Chloride () 250 mls @ 15 mls/hr IV .[id number] PRN PRN Reason: Saline Flush Last Infusion: 11/09/19 11:20 Dose: 0 mls/hr Documented by: Sodium Chloride () 250 mls @ 15 mls/hr IV .[id number] PRN PRN Reason: Additional IVPB Infusion Dextrose (Dextrose 10%-Water) 250 mls @ 999 mls/hr IV .Q16M PRN; Protocol PRN Reason: HYPOGLYCEMIA Cefazolin Sodium () 1 gm in 50 mls @ 100 mls/hr IV Q12 YONI Last Infusion: 11/10/19 11:41 Dose: Infused Documented by: Sodium Chloride () 1,000 mls @ 75 mls/hr IV .[id number] YONI Last Admin: 11/10/19 11:09 Dose: 75 mls/hr Documented by: Insulin Glargine (Lantus (Bkc)) 22 units SC DAILY [facility] Last Admin: 11/10/19 11:18 Dose: 22 u Documented by: Insulin Human Lispro (Humalog Kwikpen (Bk)) 0 unit SC ACHS & 3AM YONI; Protocol Last Admin: 11/10/19 11:25 Dose: 4 units Documented by: Insulin Human Lispro (Humalog Kwikpen (Bk)) 8 unit SC ACHS [facility] Last Admin: 11/10/19 11:25 Dose: 8 units Documented by: Lactulose (Chronulac, Cephulac) 20 gm PO TID [facility] Last Admin: 11/10/19 05:16 Dose: Not Given Documented by: Magnesium Oxide (Mag-Ox 400) 400 mg PO BID [facility] Last Admin: 11/10/19 11:17 Dose: 400 mg Documented by: Ondansetron HCl (Zofran) 4 mg IV Q6H PRN PRN PRN Reason: NAUSEA/VOMITING Last Admin: 11/10/19 08:36 Dose: 4 mg Documented by: Pantoprazole Sodium (Protonix) 40 mg PO DAILY [facility] Last Admin: 11/10/19 11:16 Dose: 40 mg Documented by: Potassium Chloride (K-Dur) 20 meq PO BID [facility] Last Admin: 11/10/19 11:13 Dose: 20 meq Documented by: Pregabalin (Lyrica) 50 mg PO BID [facility] Last Admin: 11/09/19 12:48 Dose: Not Given Documented by: Rifaximin (Xifaxan) 550 mg PO BID [facility] Last Admin: 11/10/19 11:13 Dose: 550 mg Documented by: Senna/Docusate Sodium (Senokot-S, Vy-Colace) 1 tablet PO DAILY PRN PRN PRN Reason: Constipation Sodium Chloride () 10 - 40 ml IV UD PRN PRN Reason: SALINE FLUSH Last Admin: 11/10/19 08:36 Dose: 10 ml Documented by: Sucralfate (Carafate) 1 gm PO 1HR_ACHS [facility] Last Admin: 11/10/19 11:12 Dose: 1 gm Documented by: Ursodiol (Anthony) 250 mg PO BID [facility] Last Admin: 11/10/19 11:16 Dose: 250 mg Documented by: Medical Necessity - Tobacco Use Smoking Status: Never smoker Route of nutrition/ use of supplements: [] Nutritional Intake: [] IV Site: [] Hill Catheter: [] - Assessment/Plan Antibiotics: [] Assessment/Plan: [] Active and Suspected Problems Cellulitis (Acute) MSSA RLE abscess, now s/p I&D by Dr. Grajeda on 11/06. Course complicated by JULIANNE, high vanc trough. Cr may be stabilizing today, neph is following. Narrowed abx to cefazolin yesterday. Plan on home with po keflex for short course. Will follow, d/w Dr. Clark
[2019-11-10] MEDS: Lactulose 20 GM/30 ML UDC PO ×2 (15:10→21:14)
[2019-11-10 17:00] VITALS: BP 119/67; PULSE 70; RESP 16; TEMP 36.6; O2SAT 98
[2019-11-10 18:00] LABS: Bedside Glucose 186 mg/dL (70-110)
[2019-11-10] MEDS: fluvoxaMINE Maleate 50 MG Tablet 100 MG PO (21:13)
[2019-11-10] MEDS: Acetaminophen 325 MG Tablet 650 MG PO (21:14)
[2019-11-10] MEDS: Baclofen 10 MG Tablet PO (21:14)
[2019-11-10 21:30] LABS: Bedside Glucose 171 mg/dL (70-110)
[2019-11-10 23:00] VITALS: BP 114/61; PULSE 67; RESP 16; TEMP 36.6; O2SAT 99
[2019-11-11 03:00] VITALS: BP 122/77; PULSE 64; RESP 16; TEMP 36.7; O2SAT 98
[2019-11-11] MEDS: Ondansetron 4 MG/2 ML Vial IV ×2 (05:52→18:36)
[2019-11-11] MEDS: Lactulose 20 GM/30 ML UDC PO ×2 (05:56→13:48)
[2019-11-11] MEDS: Sucralfate 1 GM Tablet PO ×4 (05:56→23:06)
[2019-11-11] MEDS: Dicyclomine 10 MG Capsule PO ×4 (05:56→23:06)
[2019-11-11] MEDS: Insulin Lispro 100 UNIT/ML INSULN.PEN SC ×2 (06:04→16:31)
[2019-11-11] MEDS: Insulin Lispro 100 UNIT/ML INSULN.PEN 8 UNIT SC ×3 (06:04→16:32)
[2019-11-11 06:15] LABS: Bedside Glucose 181 mg/dL (70-110)
[2019-11-11 06:23] LABS: Absolute Lymphocyte Count 0.54 X10^3/uL (0.83-4.51); Absolute Neutrophil Count 2.1 X10^3/uL (2.0-7.7); Basophil# 0.06 X10^3/uL; Basophil% 1.9 % (0-1); Eosinophil# 0.06 X10^3/uL; Eosinophils% 1.9 % (0-5); Hematocrit 33.3 % (37-47); Hemoglobin 10.6 g/dL (12.0-15.0); Lymphocyte # 0.54 X10^3/ul (4.0); Lymphocyte % 16.7 % (19-41); Mean Corp Hgb Conc 31.8 g/dL (32-36); Mean Corpuscular Hgb 31.9 pg (27.0-32.0); Mean Corpuscular Volume 100.3 fL (81-99); Mean Platelet Vol. 11.1 fl (6.2-12.0); Monocyte# 0.42 X10^3/uL; NRBC Flagged by Analyzer 0 % (0-5); Neutrophil # 2.13 X10^3/uL (2.7-7.7); Neutrophil % 65.9 % (47-70); POSITIVE DIFFERENTIAL YES; Platelet Count 103 K/mm3 (150-450); RBC Distribution Width CV 14.6 % (11.6-14.6); RBC Distribution Width SD 53.3 fl (35.1-43.9); Red Blood Count 3.32 M/mm3 (4.2-5.4); White Blood Count 3.2 K/mm3 (4.4-11.0)
[2019-11-11 06:31] LABS: Differential Indicated SCAN CRITERIA MET
[2019-11-11 06:46] LABS: Albumin, Serum 1.9 g/dL (3.2-5.0); BUN 24 mg/dL (7-18); BUN/Creat Ratio 5.9 RATIO (10-20); Calcium,Total 7.8 mg/dL (8.5-10.1); Chloride 113 mmol/L (98-107); Creatinine, Serum 4.09 mg/dL (0.55-1.02); EST Glomerular Filtration Rate 12 mL/min (>60); Est Glom Filt Rate - Afr Amer 15 mL/min (>60); Estimated Creatinine Clearance 16.42 ml/min; Glucose 193 mg/dL (74-106); Phosphorus 3.3 mg/dL (2.5-4.9); Potassium 4.4 mmol/L (3.5-5.1); Sodium Level 141 mmol/L (136-145)
[2019-11-11 07:15] LABS: Platelet Estimate SLT DEC (ADEQ)
[2019-11-11 07:16] LABS: Hypochromasia 1+
--- NOTE | 2019-11-11 08:23 | PN_ITS ---
Patient Problems: Active and Suspected Problems Cellulitis (Acute) JULIANNE (acute kidney injury) (Acute) Subjective: Patient is a 49-year-old female with a past medical history of autoimmune hepatitis/cirrhosis admitted to the hospital with a posterior thigh abscess on the right. Taken to surgery for incision and drainage by Dr. Grajeda on 11/06/2019. Cultures + for MSSA. Initially on Vanco and trough was high. She had JULIANNE and nephrology is following. She was transitioned to Ancef. HAs been seen by Dr. Melendez. Afebrile since admission. Vital signs are stable Maintaining appropriate oxygen saturation on room air. Fluid balance for 11/10/2019 is +3280. She had 1000 cc of urine. Fluid balance since admission is positive almost 12 L. The weight has increased from 181 pounds and 3.5 ounces to 210 pounds of 8.6 ounces since admission. All lab was personally reviewed. She remains neutropenic with a white blood delvin l count of 3.2, up from 2.8 at admission. Hemoglobin is stable at 10.6. Platelets are stable at 103,000 and she has chronic thrombocytopenia. Creatinine is 4.09 today with a potassium of 4.4. Phosphorus is within normal limits at 3.3 and albumin is 1.9. Creatinine at admission was 0.61. Blood sugar record was reviewed. Blood sugars are coming under better control. Fasting blood sugar today is 181 and the at bedtime sugar was 171. She is complaining of nausea today......added Compazine which seems to work better than the Zofran - Physical Exam Vitals/I&O's: Vital Signs Temp Pulse Resp BP Pulse Ox 98.0 F 64 16 122/77 H 98 11/11/19 03:00 11/11/19 03:00 11/11/19 03:00 11/11/19 03:00 11/11/19 03:00 Oxygen Flow Rate (L/min) 2 Oxygen Delivery Method Room Air Weight: 210 lb 8.663 oz Body Mass Index (BMI) 27.5 Finger Stick Blood Glucose 217 Intake and Output for Last 24 Hours 11/09/19 11/10/19 11/11/19 23:59 23:59 23:59 Intake Total 3868.58 / 4348.58 4280.84 / 4280.84 410 / 410 Output Total 1100 / 1500 1000 / 1000 Balance 2768.58 / 2848.58 3280.84 / 3280.84 410 / 410 General: - - arpuses easily but, seems rather sleepy and feels that way and a little out of it HEENT: Atraumatic, PERRLA, EOMI, Normocephalic Oral: Dry Mucosa Lungs: Clear to auscultation, Diminished Cardiovascular: Regular rate, Regular Rhythm, Normal S1, Normal S2, No murmurs, No Ectopic Activity, No Gallop Abdomen: Bowel Sounds Present, Soft, Non Tender, Non-Distended Extremities: No clubbing, No cyanosis, No edema Skin: No rashes, - - The incision in the posterior R popliteal fossa is sutured and the sutures are intact. There is bruising but no erythema and there is mild increased warmth to touch but, no purulent DC Neurological: Cranial nerves II-XII grossly intact, Neuro grossly intact Psych/Mental Status: Appropriate Microbiology Past 72 Hours 11/07/19 Unknown Tissue - Aerobic & Anaerobic Swabs Gram Stain - Final 11/07/19 Unknown Tissue - Aerobic & Anaerobic Swabs Wound Culture - Final Staphylococcus aureus 11/07/19 Unknown Tissue - Aerobic & Anaerobic Swabs Anaerobic Culture - Final No anaerobic bacteria isolated. 11/07/19 Unknown Tissue - Other Gram Stain - Final 11/07/19 Unknown Tissue - Other Wound Culture - Final Staphylococcus aureus 11/07/19 Unknown Tissue - Other Anaerobic Culture - Final No anaerobic bacteria isolated. Laboratory Results 11/10/19 11:23: POC Glucose 238 H 11/10/19 17:51: POC Glucose 186 H 11/10/19 21:21: POC Glucose 171 H 11/11/19 05:35: WBC 3.2 L, RBC 3.32 L, Hgb 10.6 L, Hct 33.3 L, MCV 100.3 H, MCH 31.9, MCHC 31.8 L, RDW Std Deviation 53.3 H, RDW Coeff of Valentina 14.6, Plt Count 103 L, MPV 11.1, Immature Gran % (Auto) 0.600, Neut % (Auto) 65.9, Lymph % (Auto) 16.7 L, [place] % (Auto) 13.0 H, Eos % (Auto) 1.9, Baso % (Auto) 1.9 H, Absolute Neuts (auto) 2.1, Absolute Lymphs (auto) 0.54 L, Nucleated RBC % 0, Diff Path Review May foll, Platelet Estimate SLT DEC, Hypochromasia 1+ 11/11/19 05:35: Sodium 141, Potassium 4.4, Chloride 113 H, Carbon Dioxide 22.0, BUN 24 H, Creatinine 4.09 H, Estim Creat Clear Calc 16.42, Est GFR (MDRD) Af Amer 15 L, Est GFR (MDRD) Non-Af 12 L, BUN/Creatinine Ratio 5.9 L, Glucose 193 H , Calcium 7.8 L, Phosphorus 3.3, Albumin 1.9 L 11/11/19 06:02: POC Glucose 181 H Current Medications Acetaminophen (Tylenol) 650 mg PO Q6H PRN PRN PRN Reason: Pain Score 1-3/Temp > 100.7 F Last Admin: 11/10/19 21:14 Dose: 650 mg Documented by: Albuterol Sulfate (Ventolin Aerosols) 2.5 mg INHALATION Q2H PRN PRN PRN Reason: sob/wheezing Baclofen (Lioresal) 10 mg PO QHS [facility] Last Admin: 11/10/19 21:14 Dose: 10 mg Documented by: Carbamazepine (Tegretol Liquid) 100 mg PO BID [facility] Last Admin: 11/10/19 21:12 Dose: 100 mg Documented by: Dicyclomine HCl (Bentyl) [address] [facility] Last Admin: 11/11/19 05:56 Dose: 10 mg Documented by: Ergocalciferol (Vitamin D) 50,000 unit PO [facility] Last Admin: 11/07/19 11:12 Dose: Not Given Documented by: Fluticasone Propionate (Flonase Nasal [place]) 1 spray NASAL BID PRN Fluvoxamine Maleate (Luvox) 100 mg PO QHS [facility] Last Admin: 11/10/19 21:13 Dose: 100 mg Documented by: Glucagon () 1 mg IM .X1 PRN PRN Reason: Hypoglycemia Sodium Chloride () 250 mls @ 15 mls/hr IV .[id number] PRN PRN Reason: Saline Flush Last Infusion: 11/09/19 11:20 Dose: 0 mls/hr Documented by: Sodium Chloride () 250 mls @ 15 mls/hr IV .[id number] PRN PRN Reason: Additional IVPB Infusion Dextrose (Dextrose 10%-Water) 250 mls @ 999 mls/hr IV .Q16M PRN; Protocol PRN Reason: HYPOGLYCEMIA Cefazolin Sodium () 1 gm in 50 mls @ 100 mls/hr IV Q12 [facility] Last Infusion: 11/11/19 00:02 Dose: Infused Documented by: Sodium Chloride () 1,000 mls @ 75 mls/hr IV .[id number] [facility] Last Admin: 11/10/19 21:15 Dose: 75 mls/hr Documented by: Insulin Glargine (Lantus ([facility])) 22 units SC DAILY [facility] Last Admin: 11/10/19 11:18 Dose: 22 u Documented by: Insulin Human Lispro (Humalog Kwikpen ([facility])) 0 unit SC ACHS & 3AM YONI; Protocol Last Admin: 11/11/19 06:04 Dose: 2 units Documented by: Insulin Human Lispro (Humalog Kwikpen ([facility])) 8 unit SC ACHS [facility] Last Admin: 11/11/19 06:04 Dose: 8 units Documented by: Lactulose (Chronulac, Cephulac) 20 gm PO TID [facility] Last Admin: 11/11/19 05:56 Dose: 20 gm Documented by: Magnesium Oxide (Mag-Ox 400) 400 mg PO BID [facility] Last Admin: 11/10/19 21:13 Dose: 400 mg Documented by: Ondansetron HCl (Zofran) 4 mg IV Q6H PRN PRN PRN Reason: NAUSEA/VOMITING Last Admin: 11/11/19 05:52 Dose: 4 mg Documented by: Pantoprazole Sodium (Protonix) 40 mg PO DAILY [facility] Last Admin: 11/10/19 11:16 Dose: 40 mg Documented by: Potassium Chloride (K-Dur) 20 meq PO BID [facility] Last Admin: 11/10/19 21:13 Dose: 20 meq Documented by: Pregabalin (Lyrica) 50 mg PO BID [facility] Last Admin: 11/09/19 12:48 Dose: Not Given Documented by: Rifaximin (Xifaxan) 550 mg PO BID [facility] Last Admin: 11/10/19 21:13 Dose: 550 mg Documented by: Senna/Docusate Sodium (Senokot-S, Vy-Colace) 1 tablet PO DAILY PRN PRN PRN Reason: Constipation Sodium Chloride () 10 - 40 ml IV UD PRN PRN Reason: SALINE FLUSH Last Admin: 11/10/19 23:16 Dose: 10 ml Documented by: Sucralfate (Carafate) 1 gm PO 1HR_ACHS [facility] Last Admin: 11/11/19 05:56 Dose: 1 gm Documented by: Ursodiol (Anthony) 250 mg PO BID [facility] Last Admin: 11/10/19 21:12 Dose: 250 mg Documented by: Medical Necessity - Tobacco Use Smoking Status: Never smoker Assessment/Plan All Active Problems Cellulitis (Acute) JULIANNE (acute kidney injury) (Acute) Impressions 1. MSSA cellulitis of the R popliteal fossa, S/P I&D of [address] Grajeda. 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 Non-oliguric Acute renal failure - possibly due to Vanco vs Pre-renal azotemia. Diuretics are on hold. [facility] is consulted. 3. Encephalopathy due to ARF. Will also check a Carbamazipine level. 4. Pancytopenia-stable 5. Uncontrolled DM II - coming under better control with diet and changes in insulin regimen. Recheck a renal profile in the AM Urine sodium and creat now. Continue IV fluids Code Visit Inpatient E&M: 76964 Subs Hosp L2
[2019-11-11 09:04] VITALS: BP 111/67; PULSE 62; RESP 16; TEMP 36.7; O2SAT 98
[2019-11-11] MEDS: Cefazolin 1 GM/50 ML BAG IV ×2 (09:08→23:06)
[2019-11-11] MEDS: Ursodiol 250 MG Tablet PO ×2 (09:09→23:08)
[2019-11-11] MEDS: carBAMazepine 200 MG/10 ML UDC 100 MG PO ×2 (09:10→23:07)
[2019-11-11] MEDS: Magnesium Oxide 400 MG Tablet PO ×2 (09:10→23:06)
[2019-11-11] MEDS: Pantoprazole Sodium 40 MG Tablet PO (09:11)
[2019-11-11] MEDS: rifAXIMin 550 MG Tablet PO ×2 (09:11→23:09)
[2019-11-11 11:26] LABS: Bedside Glucose 137 mg/dL (70-110)
[2019-11-11] MEDS: 0.9% Saline Lock 10 ML Syringe IV (11:54)
[2019-11-11] MEDS: proCHLORPERazine 10 MG/2 ML Vial 5 MG IV ×2 (11:54→22:44)
[2019-11-11] MEDS: 0.9% Normal Saline 1,000 ML 75 ML IV (13:48)
[2019-11-11 13:49] LABS: Carbamazepine (Tegretol) 5.3 ug/mL (4.0-12.0)
[2019-11-11 14:08] VITALS: BP 122/60; PULSE 72; RESP 18; TEMP 36.9; O2SAT 98
[2019-11-11 14:09] VITALS: PULSE 72
[2019-11-11 16:11] LABS: Bedside Glucose 275 mg/dL (70-110)
[2019-11-11 19:36] LABS: Urine Sodium 37 mmol/L (Not Establ.)
[2019-11-11 20:19] VITALS: BP 110/65; PULSE 64; RESP 16; TEMP 36.3; O2SAT 96
[2019-11-11] MEDS: Baclofen 10 MG Tablet PO (23:06)
[2019-11-11] MEDS: fluvoxaMINE Maleate 50 MG Tablet 100 MG PO (23:06)
[2019-11-11 23:21] LABS: Bedside Glucose 124 mg/dL (70-110)
[2019-11-12 02:30] VITALS: BP 123/67; PULSE 77; RESP 16; TEMP 36.6; O2SAT 95
[2019-11-12] MEDS: 0.9% Normal Saline 1,000 ML 75 ML IV (02:40)
[2019-11-12 02:56] LABS: Bedside Glucose 123 mg/dL (70-110)
[2019-11-12] MEDS: 0.9% Saline Lock 10 ML Syringe IV ×2 (03:01→16:05)
[2019-11-12] MEDS: Ondansetron 4 MG/2 ML Vial IV ×3 (03:02→22:09)
--- NOTE | 2019-11-12 04:52 | NURSING ---
Per lab, no further urine sodium specimen needs collected. It has already been done. Shannon MORRISON advised.
[2019-11-12 06:20] LABS: Albumin, Serum 1.8 g/dL (3.2-5.0); BUN 25 mg/dL (7-18); BUN/Creat Ratio 5.9 RATIO (10-20); Calcium,Total 7.5 mg/dL (8.5-10.1); Chloride 114 mmol/L (98-107); Creatinine, Serum 4.24 mg/dL (0.55-1.02); EST Glomerular Filtration Rate 12 mL/min (>60); Est Glom Filt Rate - Afr Amer 14 mL/min (>60); Estimated Creatinine Clearance 15.83 ml/min; Glucose 122 mg/dL (74-106); Phosphorus 3.5 mg/dL (2.5-4.9); Potassium 4.8 mmol/L (3.5-5.1); Sodium Level 142 mmol/L (136-145)
[2019-11-12] MEDS: Lactulose 20 GM/30 ML UDC PO ×2 (06:45→13:27)
[2019-11-12] MEDS: Dicyclomine 10 MG Capsule PO ×4 (06:46→22:01)
[2019-11-12] MEDS: Sucralfate 1 GM Tablet PO ×3 (06:46→22:01)
[2019-11-12 07:13] VITALS: BP 136/74; PULSE 72; RESP 18; TEMP 36.8; O2SAT 96
--- NOTE | 2019-11-12 07:13 | NURSING ---
when assisting pt back to bed from brp pt legs buckled. assisted pt to sit back down on commode and called for assistance. wheeled pt back to bed and repositioned in the bed. checked vs. pt is a/ox3.
[2019-11-12 08:30] VITALS: BP 120/62; PULSE 67; RESP 16; TEMP 37.1; O2SAT 94
[2019-11-12 08:46] LABS: Bedside Glucose 132 mg/dL (70-110)
--- NOTE | 2019-11-12 09:03 | PN_ITS ---
Patient Problems: Active and Suspected Problems Cellulitis (Acute) JULIANNE (acute kidney injury) (Acute) Reason for Visit: Follow-up on JULIANNE, right thigh abscess Subjective: Patient was seen and examined. She is lethargic today. No acute events overnight. Urine output has been low. Objective: Physical exam: General: Alert, Oriented x3, Cooperative, No apparent distress HEENT: Atraumatic, PERRLA, EOMI, Normocephalic Oral: Moist Mucosa Neck: Supple, No JVD, Negative Carotid Bruits Lungs: Clear to auscultation, Normal air movement, No rhonchi, No wheeze Cardiovascular: Regular rate, Regular Rhythm, Normal S1, Normal S2, No murmurs Abdomen: Bowel Sounds Present, Soft, Non Tender, Non-Distended, No Hepato- splenomegaly Extremities: No clubbing, No cyanosis, No edema, Capillary Refill Less than 3 Seconds Skin: - - Right knee wrapped in bandage. Musculoskeletal: No Muscle Wasting, right knee wrapped in bandage Lymphatic: No Cervical, Supraclavicular, or Inguinal Adenopathy Neurological: Cranial nerves II-XII grossly intact, Neuro grossly intact Psych/Mental Status: Normal Affect, Appropriate, Anxious, Alert and oriented to time, place, person, mood and affect, no flapping tremors Vitals/I&O's: Vital Signs Temp Pulse Resp BP Pulse Ox 98.2 F 72 18 136/74 H 96 11/12/19 07:13 11/12/19 07:13 11/12/19 07:13 11/12/19 07:13 11/12/19 07:13 Oxygen Flow Rate (L/min) 2 Oxygen Delivery Method Room Air Weight: 94.302 kg Body Mass Index (BMI) 27.5 Finger Stick Blood Glucose 217 Intake and Output for Last 24 Hours 11/10/19 11/11/19 11/12/19 23:59 23:59 23:59 Intake Total 4280.84 / 4280.84 2207.50 / 2207.50 230 / 230 Output Total 1000 / 1000 Balance 3280.84 / 3280.84 2207.50 / 2207.50 230 / 230 Microbiology Past 72 Hours 11/07/19 Unknown Tissue - Aerobic & Anaerobic Swabs Gram Stain - Final 11/07/19 Unknown Tissue - Aerobic & Anaerobic Swabs Wound Culture - Final Staphylococcus aureus 11/07/19 Unknown Tissue - Aerobic & Anaerobic Swabs Anaerobic Culture - Final No anaerobic bacteria isolated. 11/07/19 Unknown Tissue - Other Gram Stain - Final 11/07/19 Unknown Tissue - Other Wound Culture - Final Staphylococcus aureus 11/07/19 Unknown Tissue - Other Anaerobic Culture - Final No anaerobic bacteria isolated. Laboratory Results 11/11/19 11:19: POC Glucose 137 H 11/11/19 13:00: Carbamazepine 5.3 11/11/19 16:05: POC Glucose 275 H 11/11/19 18:25: Urine Creatinine 88.70 11/11/19 19:16: Ur Random Sodium 37 11/11/19 22:58: POC Glucose 124 H 11/12/19 02:26: POC Glucose 123 H 11/12/19 05:44: Sodium 142, Potassium 4.8, Chloride 114 H, Carbon Dioxide 21.0, BUN 25 H, Creatinine 4.24 H, Estim Creat Clear Calc 15.83, Est GFR (MDRD) Af Amer 14 L, Est GFR (MDRD) Non-Af 12 L, BUN/Creatinine Ratio 5.9 L, Glucose 122 H , Calcium 7.5 L, Phosphorus 3.5, Albumin 1.8 L 11/12/19 08:29: POC Glucose 132 H Current Medications Acetaminophen (Tylenol) 650 mg PO Q6H PRN PRN PRN Reason: Pain Score 1-3/Temp > 100.7 F Last Admin: 11/10/19 21:14 Dose: 650 mg Documented by: Albuterol Sulfate (Ventolin Aerosols) 2.5 mg INHALATION Q2H PRN PRN PRN Reason: sob/wheezing Baclofen (Lioresal) 10 mg PO QHS [facility] Last Admin: 11/11/19 23:06 Dose: 10 mg Documented by: Carbamazepine (Tegretol Liquid) 100 mg PO BID [facility] Last Admin: 11/11/19 23:07 Dose: 100 mg Documented by: Dicyclomine HCl (Bentyl) 10 mg PO ACHS [facility] Last Admin: 11/12/19 06:46 Dose: 10 mg Documented by: Ergocalciferol (Vitamin D) 50,000 unit PO SA [facility] Last Admin: 11/07/19 11:12 Dose: Not Given Documented by: Fluticasone Propionate (Flonase Nasal [place]) 1 spray NASAL BID PRN Fluvoxamine Maleate (Luvox) 100 mg PO QHS [facility] Last Admin: 11/11/19 23:06 Dose: 100 mg Documented by: Glucagon () 1 mg IM .X1 PRN PRN Reason: Hypoglycemia Sodium Chloride () 250 mls @ 15 mls/hr IV .[id number] PRN PRN Reason: Saline Flush Last Infusion: 11/09/19 11:20 Dose: 0 mls/hr Documented by: Sodium Chloride () 250 mls @ 15 mls/hr IV .[id number] PRN PRN Reason: Additional IVPB Infusion Dextrose (Dextrose 10%-Water) 250 mls @ 999 mls/hr IV .Q16M PRN; Protocol PRN Reason: HYPOGLYCEMIA Cefazolin Sodium () 1 gm in 50 mls @ 100 mls/hr IV Q12 YONI Last Infusion: 11/11/19 23:36 Dose: Infused Documented by: Sodium Chloride () 1,000 mls @ 75 mls/hr IV .[id number] [facility] Last Admin: 11/12/19 02:40 Dose: 75 mls/hr Documented by: Insulin Glargine (Lantus (Bkc)) 22 units SC DAILY [facility] Last Admin: 11/11/19 09:11 Dose: 22 u Documented by: Insulin Human Lispro (Humalog Kwikpen (Bk)) 0 unit SC ACHS & 3AM YONI; Protocol Last Admin: 11/12/19 07:10 Dose: Not Given Documented by: Insulin Human Lispro (Humalog Kwikpen (Bkc)) 8 unit SC ACHS [facility] Last Admin: 11/12/19 07:11 Dose: Not Given Documented by: Lactulose (Chronulac, Cephulac) 20 gm PO TID [facility] Last Admin: 11/12/19 06:45 Dose: 20 gm Documented by: Magnesium Oxide (Mag-Ox 400) 400 mg PO BID [facility] Last Admin: 11/11/19 23:06 Dose: 400 mg Documented by: Ondansetron HCl (Zofran) 4 mg IV Q6H PRN PRN PRN Reason: NAUSEA/VOMITING Last Admin: 11/12/19 03:02 Dose: 4 mg Documented by: Pantoprazole Sodium (Protonix) 40 mg PO DAILY [facility] Last Admin: 11/11/19 09:11 Dose: 40 mg Documented by: Potassium Chloride (K-Dur) 20 meq PO BID [facility] Last Admin: 11/11/19 23:06 Dose: 20 meq Documented by: Pregabalin (Lyrica) 50 mg PO BID [facility] Last Admin: 11/09/19 12:48 Dose: Not Given Documented by: Prochlorperazine Edisylate (Compazine Iv) 5 mg IV Q6H PRN PRN PRN Reason: NAUSEA/VOMITING Last Admin: 11/11/19 22:44 Dose: 5 mg Documented by: Rifaximin (Xifaxan) 550 mg PO BID [facility] Last Admin: 11/11/19 23:09 Dose: 550 mg Documented by: Senna/Docusate Sodium (Senokot-S, Vy-Colace) 1 tablet PO DAILY PRN PRN PRN Reason: Constipation Sodium Chloride () 10 - 40 ml IV UD PRN PRN Reason: SALINE FLUSH Last Admin: 11/12/19 03:01 Dose: 20 ml Documented by: Sucralfate (Carafate) 1 gm PO 1HR_ACHS [facility] Last Admin: 11/12/19 06:46 Dose: 1 gm Documented by: Ursodiol (Anthony) 250 mg PO BID [facility] Last Admin: 11/11/19 23:08 Dose: 250 mg Documented by: STROKE Vital Signs/Narrative: Vital Signs Temp Pulse Resp BP Pulse Ox 11/12/19 07:13 98.2 F 72 18 136/74 H 96 Medical Necessity - Tobacco Use Smoking Status: Never smoker Assessment/Plan All Active Problems Cellulitis (Acute) JULIANNE (acute kidney injury) (Acute) 1. Right MSSA posterior thigh abscess/popliteal fossa cellulitis, present on admission Status post I&D of right thigh abscess Intra-operative cultures are growing staph aureus, rest of cultures are pending Off IV vancomycin on account of worsening kidney function On cefazolin ID following 2. JULIANNE, pre-renal likely secondary to ATN/contrast nephropathy/vancomycin toxicity Cr is 4.24, baseline Cr 0.74, no electrolytes imbalances Continue to hold spironolactone and Lasix Continue on IVF 100cc/hr Renal ultrasound shows no hydronephrosis Nephrology following; patient may need dialysis Repeat labs in a.m. 3. Type 2 DM, BS are fairly controlled, On Lantus, scheduled Lispro, ISS Continue with scheduled lispro and insulin sliding scale 4. Autoimmune hepatitis/cirrhosis of liver No current hepatic encephalopathy On lactulose, rifaximin Off spironolactone and lasix for now on account of JULIANNE 5. DVT PPx- early ambulation, not on chemical prophylaxis on account of thrombocytopenia Code Visit Inpatient E&M: 51174 Subs Hosp L2
[2019-11-12] MEDS: Cefazolin 1 GM/50 ML BAG IV (10:12)
--- NOTE | 2019-11-12 10:38 | CASEMGMT ---
LW/POA forms both scanned into summary tab of [facility], Jennifer Nichole(sister) is listed as healthcare POA, and Jon Tyler(significant other) is listed as the first alternate. CAMILLA Coulter
[2019-11-12] MEDS: rifAXIMin 550 MG Tablet PO ×2 (12:23→22:02)
[2019-11-12] MEDS: Magnesium Oxide 400 MG Tablet PO ×2 (12:23→22:01)
[2019-11-12] MEDS: Pantoprazole Sodium 40 MG Tablet PO (12:23)
[2019-11-12] MEDS: carBAMazepine 200 MG/10 ML UDC 100 MG PO ×2 (12:23→22:03)
[2019-11-12] MEDS: Ursodiol 250 MG Tablet PO ×2 (12:23→22:01)
[2019-11-12 12:29] LABS: Pathologist Review Reviewed
[2019-11-12 12:44] LABS: Pathologist Review Reviewed
[2019-11-12 13:46] LABS: Bedside Glucose 137 mg/dL (70-110)
--- NOTE | 2019-11-12 14:41 | PN.ID_ITS ---
Patient Problems: Active and Suspected Problems Cellulitis (Acute) JULIANNE (acute kidney injury) (Acute) Subjective: Feeling tired, pain controlled, no fever - Physical Exam Vitals/I&O's: Vital Signs Temp Pulse Resp BP Pulse Ox 98.7 F 67 16 120/62 94 11/12/19 08:30 11/12/19 08:30 11/12/19 08:30 11/12/19 08:30 11/12/19 08:30 Oxygen Flow Rate (L/min) 2 Oxygen Delivery Method Room Air Weight: 94.302 kg Body Mass Index (BMI) 27.5 Finger Stick Blood Glucose 217 Intake and Output for Last 24 Hours 11/10/19 11/11/19 11/12/19 23:59 23:59 23:59 Intake Total 4280.84 / 4280.84 2207.50 / 2207.50 846.25 / 846.25 Output Total 1000 / 1000 Balance 3280.84 / 3280.84 2207.50 / 2207.50 846.25 / 846.25 General: Cooperative, No apparent distress Lungs: Clear to auscultation, Normal air movement Cardiovascular: Regular rate, Regular Rhythm Abdomen: Soft, Non Tender, Non-Distended Skin: Ulcer/ Wound - RLE wrapped Microbiology Past 72 Hours 11/07/19 Unknown Tissue - Aerobic & Anaerobic Swabs Gram Stain - Final 11/07/19 Unknown Tissue - Aerobic & Anaerobic Swabs Wound Culture - Final Staphylococcus aureus 11/07/19 Unknown Tissue - Aerobic & Anaerobic Swabs Anaerobic Culture - Final No anaerobic bacteria isolated. 11/07/19 Unknown Tissue - Other Gram Stain - Final 11/07/19 Unknown Tissue - Other Wound Culture - Final Staphylococcus aureus 11/07/19 Unknown Tissue - Other Anaerobic Culture - Final No anaerobic bacteria isolated. Laboratory Results 11/10/19 05:15: Diff Path Review Reviewed 11/11/19 05:35: Diff Path Review Reviewed 11/11/19 16:05: POC Glucose 275 H 11/11/19 18:25: Urine Creatinine 88.70 11/11/19 19:16: Ur Random Sodium 37 11/11/19 22:58: POC Glucose 124 H 11/12/19 02:26: POC Glucose 123 H 11/12/19 05:44: Sodium 142, Potassium 4.8, Chloride 114 H, Carbon Dioxide 21.0, BUN 25 H, Creatinine 4.24 H, Estim Creat Clear Calc 15.83, Est GFR (MDRD) Af Amer 14 L, Est GFR (MDRD) Non-Af 12 L, BUN/Creatinine Ratio 5.9 L, Glucose 122 H , Calcium 7.5 L, Phosphorus 3.5, Albumin 1.8 L 11/12/19 08:29: POC Glucose 132 H 11/12/19 12:26: POC Glucose 137 H Current Medications Acetaminophen (Tylenol) 650 mg PO Q6H PRN PRN PRN Reason: Pain Score 1-3/Temp > 100.7 F Last Admin: 11/10/19 21:14 Dose: 650 mg Documented by: Albuterol Sulfate (Ventolin Aerosols) 2.5 mg INHALATION Q2H PRN PRN PRN Reason: sob/wheezing Baclofen (Lioresal) 10 mg PO QHS [facility] Last Admin: 11/11/19 23:06 Dose: 10 mg Documented by: Carbamazepine (Tegretol Liquid) 100 mg PO BID [facility] Last Admin: 11/12/19 12:23 Dose: 100 mg Documented by: Dicyclomine HCl (Bentyl) 10 mg PO ACHS [facility] Last Admin: 11/12/19 12:24 Dose: 10 mg Documented by: Ergocalciferol (Vitamin D) 50,000 unit PO SA [facility] Last Admin: 11/07/19 11:12 Dose: Not Given Documented by: Fluticasone Propionate (Flonase Nasal [place]) 1 spray NASAL BID PRN Fluvoxamine Maleate (Luvox) 100 mg PO QHS [facility] Last Admin: 11/11/19 23:06 Dose: 100 mg Documented by: Glucagon () 1 mg IM .X1 PRN PRN Reason: Hypoglycemia Sodium Chloride () 250 mls @ 15 mls/hr IV .[id number] PRN PRN Reason: Saline Flush Last Infusion: 11/09/19 11:20 Dose: 0 mls/hr Documented by: Sodium Chloride () 250 mls @ 15 mls/hr IV .[id number] PRN PRN Reason: Additional IVPB Infusion Dextrose (Dextrose 10%-Water) 250 mls @ 999 mls/hr IV .Q16M PRN; Protocol PRN Reason: HYPOGLYCEMIA Cefazolin Sodium () 1 gm in 50 mls @ 100 mls/hr IV Q12 [facility] Last Infusion: 11/12/19 10:42 Dose: Infused Documented by: Sodium Chloride () 1,000 mls @ 100 mls/hr IV .Q10H [facility] Last Infusion: 11/12/19 10:42 Dose: 75 mls/hr Documented by: Insulin Glargine (Lantus (Bk)) 22 units SC DAILY [facility] Last Admin: 11/12/19 12:26 Dose: 22 u Documented by: Insulin Human Lispro (Humalog Kwikpen ([facility])) 0 unit SC ACHS & 3AM YONI; Protocol Last Admin: 11/12/19 12:27 Dose: Not Given Documented by: Insulin Human Lispro (Humalog Kwikpen (Bk)) 8 unit SC ACHS [facility] Last Admin: 11/12/19 12:27 Dose: Not Given Documented by: Lactulose (Chronulac, Cephulac) 20 gm PO TID [facility] Last Admin: 11/12/19 13:27 Dose: 20 gm Documented by: Magnesium Oxide (Mag-Ox 400) 400 mg PO BID [facility] Last Admin: 11/12/19 12:23 Dose: 400 mg Documented by: Ondansetron HCl (Zofran) 4 mg IV Q6H PRN PRN PRN Reason: NAUSEA/VOMITING Last Admin: 11/12/19 12:35 Dose: 4 mg Documented by: Pantoprazole Sodium (Protonix) 40 mg PO DAILY [facility] Last Admin: 11/12/19 12:23 Dose: 40 mg Documented by: Potassium Chloride (K-Dur) 20 meq PO BID [facility] Last Admin: 11/12/19 12:22 Dose: 20 meq Documented by: Pregabalin (Lyrica) 50 mg PO BID [facility] Last Admin: 11/09/19 12:48 Dose: Not Given Documented by: Prochlorperazine Edisylate (Compazine Iv) 5 mg IV Q6H PRN PRN PRN Reason: NAUSEA/VOMITING Last Admin: 11/11/19 22:44 Dose: 5 mg Documented by: Rifaximin (Xifaxan) 550 mg PO BID [facility] Last Admin: 11/12/19 12:23 Dose: 550 mg Documented by: Senna/Docusate Sodium (Senokot-S, Vy-Colace) 1 tablet PO DAILY PRN PRN PRN Reason: Constipation Sodium Chloride () 10 - 40 ml IV UD PRN PRN Reason: SALINE FLUSH Last Admin: 11/12/19 03:01 Dose: 20 ml Documented by: Sucralfate (Carafate) 1 gm PO 1HR_ACHS [facility] Last Admin: 11/12/19 12:24 Dose: 1 gm Documented by: Ursodiol (Anthony) 250 mg PO BID [facility] Last Admin: 11/12/19 12:23 Dose: 250 mg Documented by: Medical Necessity - Tobacco Use Smoking Status: Never smoker Route of nutrition/ use of supplements: [] Nutritional Intake: [] IV Site: [] Hill Catheter: [] - Assessment/Plan Antibiotics: [] Assessment/Plan: [] Active and Suspected Problems Cellulitis (Acute) MSSA RLE abscess, now s/p I&D by Dr. Grajeda on 11/06. Course complicated by JULIANNE, high vanc trough. Cr still worsening, neph is following. Will order urine eos, change cefazolin to po doxy to try to avoid any possible nephrotoxicity. Will follow
--- NOTE | 2019-11-12 15:38 | PCM.PN.REN ---
Patient Problems: Active and Suspected Problems Cellulitis (Acute) JULIANNE (acute kidney injury) (Acute) Subjective: breathing is stable. No nausea No vomiting poor appetite - Physical Exam Vitals/I&O's: Vital Signs Temp Pulse Resp BP Pulse Ox 98.7 F 67 16 120/62 94 11/12/19 08:30 11/12/19 08:30 11/12/19 08:30 11/12/19 08:30 11/12/19 08:30 Oxygen Flow Rate (L/min) 2 Oxygen Delivery Method Room Air Weight: 94.302 kg Body Mass Index (BMI) 27.5 Finger Stick Blood Glucose 217 Intake and Output for Last 24 Hours 11/10/19 11/11/19 11/12/19 23:59 23:59 23:59 Intake Total 4280.84 / 4280.84 2207.50 / 2207.50 966.25 / 966.25 Output Total 1000 / 1000 350 / 350 Balance 3280.84 / 3280.84 2207.50 / 2207.50 616.25 / 616.25 General: Alert, Oriented x3 HEENT: Atraumatic Oral: Moist Mucosa Neck: Supple, No JVD Lungs: Clear to auscultation, Normal air movement, No rhonchi, No wheeze Cardiovascular: Regular rate, Regular Rhythm, Normal S1, Normal S2 Abdomen: Bowel Sounds Present, Soft, Non Tender Extremities: No clubbing, No cyanosis, No edema Musculoskeletal: No Tenderness to Palpation of Joints or Extremities Lymphatic: No Cervical, Supraclavicular, or Inguinal Adenopathy Neurological: Cranial nerves II-XII grossly intact, Neuro grossly intact Psych/Mental Status: Appropriate Microbiology Past 72 Hours 11/07/19 Unknown Tissue - Aerobic & Anaerobic Swabs Gram Stain - Final 11/07/19 Unknown Tissue - Aerobic & Anaerobic Swabs Wound Culture - Final Staphylococcus aureus 11/07/19 Unknown Tissue - Aerobic & Anaerobic Swabs Anaerobic Culture - Final No anaerobic bacteria isolated. 11/07/19 Unknown Tissue - Other Gram Stain - Final 11/07/19 Unknown Tissue - Other Wound Culture - Final Staphylococcus aureus 11/07/19 Unknown Tissue - Other Anaerobic Culture - Final No anaerobic bacteria isolated. Laboratory Results 11/10/19 05:15: Diff Path Review Reviewed 11/11/19 05:35: Diff Path Review Reviewed 11/11/19 16:05: POC Glucose 275 H 11/11/19 18:25: Urine Creatinine 88.70 11/11/19 19:16: Ur Random Sodium 37 11/11/19 22:58: POC Glucose 124 H 11/12/19 02:26: POC Glucose 123 H 11/12/19 05:44: Sodium 142, Potassium 4.8, Chloride 114 H, Carbon Dioxide 21.0, BUN 25 H, Creatinine 4.24 H, Estim Creat Clear Calc 15.83, Est GFR (MDRD) Af Amer 14 L, Est GFR (MDRD) Non-Af 12 L, BUN/Creatinine Ratio 5.9 L, Glucose 122 H, Calcium 7.5 L, Phosphorus 3.5, Albumin 1.8 L 11/12/19 08:29: POC Glucose 132 H 11/12/19 12:26: POC Glucose 137 H Current Medications Acetaminophen (Tylenol) 650 mg PO Q6H PRN PRN PRN Reason: Pain Score 1-3/Temp > 100.7 F Last Admin: 11/10/19 21:14 Dose: 650 mg Documented by: Albuterol Sulfate (Ventolin Aerosols) 2.5 mg INHALATION Q2H PRN PRN PRN Reason: sob/wheezing Baclofen (Lioresal) 10 mg PO QHS [facility] Last Admin: 11/11/19 23:06 Dose: 10 mg Documented by: Carbamazepine (Tegretol Liquid) 100 mg PO BID [facility] Last Admin: 11/12/19 12:23 Dose: 100 mg Documented by: Dicyclomine HCl (Bentyl) 10 mg PO [facility] Last Admin: 11/12/19 12:24 Dose: 10 mg Documented by: Doxycycline Monohydrate (Doxycycline) 100 mg PO 0900,2100 [facility] Ergocalciferol (Vitamin D) 50,000 unit PO SA [facility] Last Admin: 11/07/19 11:12 Dose: Not Given Documented by: Fluticasone Propionate (Flonase Nasal [place]) 1 spray NASAL BID PRN Fluvoxamine Maleate (Luvox) 100 mg PO QHS [facility] Last Admin: 11/11/19 23:06 Dose: 100 mg Documented by: Glucagon () 1 mg IM .X1 PRN PRN Reason: Hypoglycemia Sodium Chloride () 250 mls @ 15 mls/hr IV .[id number] PRN PRN Reason: Saline Flush Last Infusion: 11/09/19 11:20 Dose: 0 mls/hr Documented by: Sodium Chloride () 250 mls @ 15 mls/hr IV .[id number] PRN PRN Reason: Additional IVPB Infusion Dextrose (Dextrose 10%-Water) 250 mls @ 999 mls/hr IV .Q16M PRN; Protocol PRN Reason: HYPOGLYCEMIA Sodium Chloride () 1,000 mls @ 100 mls/hr IV .Q10H YONI Last Infusion: 11/12/19 10:42 Dose: 75 mls/hr Documented by: Insulin Glargine (Lantus ([facility])) 22 units SC DAILY [facility] Last Admin: 11/12/19 12:26 Dose: 22 u Documented by: Insulin Human Lispro (Humalog Kwikpen ([facility])) 0 unit SC ACHS & 3AM YONI; Protocol Last Admin: 11/12/19 12:27 Dose: Not Given Documented by: Insulin Human Lispro (Humalog Kwikpen ([facility])) 8 unit SC ACHS [facility] Last Admin: 11/12/19 12:27 Dose: Not Given Documented by: Lactulose (Chronulac, Cephulac) 20 gm PO TID [facility] Last Admin: 11/12/19 13:27 Dose: 20 gm Documented by: Magnesium Oxide (Mag-Ox 400) 400 mg PO BID [facility] Last Admin: 11/12/19 12:23 Dose: 400 mg Documented by: Ondansetron HCl (Zofran) 4 mg IV Q6H PRN PRN PRN Reason: NAUSEA/VOMITING Last Admin: 11/12/19 12:35 Dose: 4 mg Documented by: Pantoprazole Sodium (Protonix) 40 mg PO DAILY [facility] Last Admin: 11/12/19 12:23 Dose: 40 mg Documented by: Pregabalin (Lyrica) 50 mg PO BID [facility] Last Admin: 11/09/19 12:48 Dose: Not Given Documented by: Prochlorperazine Edisylate (Compazine Iv) 5 mg IV Q6H PRN PRN PRN Reason: NAUSEA/VOMITING Last Admin: 11/11/19 22:44 Dose: 5 mg Documented by: Rifaximin (Xifaxan) 550 mg PO BID [facility] Last Admin: 11/12/19 12:23 Dose: 550 mg Documented by: Senna/Docusate Sodium (Senokot-S, Vy-Colace) 1 tablet PO DAILY PRN PRN PRN Reason: Constipation Sodium Chloride () 10 - 40 ml IV UD PRN PRN Reason: SALINE FLUSH Last Admin: 11/12/19 03:01 Dose: 20 ml Documented by: Sucralfate (Carafate) 1 gm PO 1HR_ACHS [facility] Last Admin: 11/12/19 12:24 Dose: 1 gm Documented by: Ursodiol (Anthony) 250 mg PO BID [facility] Last Admin: 11/12/19 12:23 Dose: 250 mg Documented by: Medical Necessity - Tobacco Use Smoking Status: Never smoker Assessment/Plan All Active Problems Cellulitis (Acute) JULIANNE (acute kidney injury) (Acute) Acute renal failure. Baseline creatinine is normal. Did receive a CT abdomen with 100 cc of contrast on the . Also received IV vancomycin for staph aureus with a trough level of 36. Creatinine started increasing on the . Urine analysis shows some white cells and RBCs, no protein CT abdomen and renal ultrasound did not show any hydronephrosis Blood pressure is on the lower side. Acute renal failure is likely ATN related to contrast and vancomycin. Plan Cr continues to rise. Last 24 hours Cr trend 4.0->4.2 mg/dL Continue IV fluids the same rate No need for PREP [employer] SUPER[employer]OR today Will continue to monitor for kidney function recovery
[2019-11-12] MEDS: 0.9% Normal Saline 1,000 ML 100 ML IV (15:56)
[2019-11-12 16:00] VITALS: BP 113/62; PULSE 60; RESP 14; TEMP 36.4; O2SAT 96
[2019-11-12] MEDS: proCHLORPERazine 10 MG/2 ML Vial 5 MG IV (17:11)
[2019-11-12 17:26] LABS: Bedside Glucose 141 mg/dL (70-110)
[2019-11-12 20:40] VITALS: BP 142/80; PULSE 59; RESP 18; TEMP 36.8; O2SAT 99
[2019-11-12] MEDS: Insulin Lispro 100 UNIT/ML INSULN.PEN SC (22:00)
[2019-11-12] MEDS: Baclofen 10 MG Tablet PO (22:01)
[2019-11-12] MEDS: fluvoxaMINE Maleate 50 MG Tablet 100 MG PO (22:02)
[2019-11-12] MEDS: Doxycycline 100 MG CAPSULE PO (22:02)
[2019-11-12] MEDS: Insulin Lispro 100 UNIT/ML INSULN.PEN 8 UNIT SC (22:02)
[2019-11-12 22:35] LABS: Bedside Glucose 152 mg/dL (70-110)
[2019-11-13] VITALS (10 sets, daily range): BP systolic 123–164; BP diastolic 59–81; PULSE 62–72; RESP 16–18; TEMP 36.4–37.2; O2SAT 96–99
[2019-11-13 00:35] LABS: Bedside Glucose 123 mg/dL (70-110)
[2019-11-13] MEDS: 0.9% Normal Saline 1,000 ML 100 ML IV ×2 (02:10→17:19)
[2019-11-13 04:11] LABS: Bedside Glucose 94 mg/dL (70-110)
[2019-11-13] MEDS: Dicyclomine 10 MG Capsule PO ×3 (06:33→16:34)
[2019-11-13] MEDS: proCHLORPERazine 10 MG/2 ML Vial 5 MG IV (06:33)
[2019-11-13] MEDS: Sucralfate 1 GM Tablet PO ×3 (06:35→16:34)
[2019-11-13] MEDS: Lactulose 20 GM/30 ML UDC PO ×2 (06:35→12:15)
[2019-11-13 07:30] LABS: Bedside Glucose 131 mg/dL (70-110)
[2019-11-13 08:41] LABS: Absolute Lymphocyte Count 0.43 X10^3/uL (0.83-4.51); Absolute Neutrophil Count 2.5 X10^3/uL (2.0-7.7); Basophil# 0.06 X10^3/uL; Basophil% 1.8 % (0-1); Eosinophil# 0.06 X10^3/uL; Eosinophils% 1.8 % (0-5); Hematocrit 34.5 % (37-47); Lymphocyte # 0.43 X10^3/ul (4.0); Lymphocyte % 12.9 % (19-41); Mean Corp Hgb Conc 31.9 g/dL (32-36); Mean Corpuscular Volume 100.3 fL (81-99); Mean Platelet Vol. 10.7 fl (6.2-12.0); Monocyte# 0.31 X10^3/uL; Monocyte% 9.3 % (0-10); NRBC Flagged by Analyzer 0 % (0-5); Neutrophil # 2.47 X10^3/uL (2.7-7.7); Neutrophil % 73.9 % (47-70); POSITIVE DIFFERENTIAL YES; Platelet Count 100 K/mm3 (150-450); RBC Distribution Width CV 14.7 % (11.6-14.6); RBC Distribution Width SD 54.4 fl (35.1-43.9); Red Blood Count 3.44 M/mm3 (4.2-5.4); White Blood Count 3.3 K/mm3 (4.4-11.0)
[2019-11-13 08:47] LABS: Differential Indicated SCAN CRITERIA MET
[2019-11-13 08:54] LABS: Albumin, Serum 1.8 g/dL (3.2-5.0); BUN 29 mg/dL (7-18); BUN/Creat Ratio 6.9 RATIO (10-20); Calcium,Total 7.9 mg/dL (8.5-10.1); Chloride 119 mmol/L (98-107); EST Glomerular Filtration Rate 12 mL/min (>60); Est Glom Filt Rate - Afr Amer 14 mL/min (>60); Estimated Creatinine Clearance 15.99 ml/min; Glucose 140 mg/dL (74-106); Phosphorus 3.5 mg/dL (2.5-4.9); Potassium 4.6 mmol/L (3.5-5.1); Sodium Level 147 mmol/L (136-145)
[2019-11-13] MEDS: Doxycycline 100 MG CAPSULE PO (10:00)
[2019-11-13] MEDS: carBAMazepine 200 MG/10 ML UDC 100 MG PO (10:01)
[2019-11-13] MEDS: Ursodiol 250 MG Tablet PO (10:01)
[2019-11-13] MEDS: Magnesium Oxide 400 MG Tablet PO (10:02)
[2019-11-13] MEDS: Pantoprazole Sodium 40 MG Tablet PO (10:02)
[2019-11-13] MEDS: rifAXIMin 550 MG Tablet PO (10:02)
--- NOTE | 2019-11-13 10:18 | US_ITS ---
PROCEDURE: ULTRASOUND GUIDED PARACENTESIS CLINICAL HISTORY: Female, 49 years old. ASCITES CONSENT: The risks, benefits and alternatives to the procedure were explained to the patient, and the patient agreed to the procedure and signed the consent. SEDATION: Local Anesthesia STERILE BARRIER TECHNIQUE: The following sterile barrier precautions were used during the procedure: hand hygiene; use of 2% chlorhexidine aseptic; use of a cap, mask, sterile gown, sterile gloves, sterile full body drape, and a large sterile sheet. PROCEDURE/TECHNIQUE: The risks, benefits, and alternatives to the procedure were explained to patient, and the patient agreed to the procedure and signed a consent form for the procedure. TECHNIQUE: Under the ultrasound guidance using sterile technique and after infiltration of the skin and subcutaneous soft tissues with 10 mL of lidocaine 1% a 5 Slovak drainage catheter is introduced in the lower part of the abdomen. 1500 mL of fluid were removed sample sent to lab for evaluation. The patient tolerated the procedure there was no immediate complication. FINDINGS: FLUID PRE-PROCEDURE There is posterior enhancement. The findings appear anechoic. There is no loculation. FLUID POST-PROCEDURE Amount of fluid drained: 1500 ml. US/Paracentesis with US IMPRESSION: Successful ultrasound-guided paracentesis. Electronically Signed: Beulah Akers, at 13:56 EST Tel , Service support ,
[2019-11-13 10:51] LABS: International Normalized Ratio 1.2; Prothrombin Time (Protime)PT. 15.2 SECONDS (11.7-14.9)
[2019-11-13 10:52] LABS: Partial Thromboplast Time 24.6 Seconds (24.1-36.2)
[2019-11-13 11:18] LABS: LDH 250 U/L (84-246)
[2019-11-13 11:51] LABS: Bedside Glucose 143 mg/dL (70-110)
[2019-11-13] MEDS: Albumin Human 25% (100 mL) 25 GM/100 ML BAG IV ×2 (13:48→15:44)
--- NOTE | 2019-11-13 13:55 | PCM.PN.ID ---
Patient Problems: Active and Suspected Problems Cellulitis (Acute) JULIANNE (acute kidney injury) (Acute) Subjective: Sleepy, now s/p paracentesis. No fever. - Physical Exam Vitals/I&O's: Vital Signs Temp Pulse Resp BP Pulse Ox 97.6 F L 62 16 137/65 H 98 11/13/19 13:50 11/13/19 13:50 11/13/19 13:50 11/13/19 13:50 11/13/19 13:50 Oxygen Flow Rate (L/min) 2 Oxygen Delivery Method [2] Room Air Oxygen Delivery Method [1 ( Room Air Initial Baseline)] Oxygen Delivery Method Room Air Weight: 95.3 kg Body Mass Index (BMI) 27.5 Finger Stick Blood Glucose 217 Intake and Output for Last 24 Hours 11/11/19 11/12/19 11/13/19 23:59 23:59 23:59 Intake Total 2207.50 / 2207.50 1508.75 / 1508.75 2237 / 2237 Output Total 700 / 1300 1175 / 1175 Balance 2207.50 / 2207.50 808.75 / 208.75 1062 / 1062 General: Cooperative, No apparent distress Lungs: Clear to auscultation, Normal air movement Cardiovascular: Regular rate, Regular Rhythm Abdomen: Soft, Non Tender, Non-Distended Skin: No rashes Laboratory Results 11/12/19 06:44: POC Glucose 123 H 11/12/19 17:08: POC Glucose 141 H 11/12/19 21:58: POC Glucose 152 H 11/13/19 02:08: POC Glucose 94 11/13/19 07:26: POC Glucose 131 H 11/13/19 08:30: WBC 3.3 L, RBC 3.44 L, Hgb 11.0 L, Hct 34.5 L, MCV 100.3 H, MCH 32.0, MCHC 31.9 L, RDW Std Deviation 54.4 H, RDW Coeff of Valentina 14.7 H, Plt Count 100 L, MPV 10.7, Immature Gran % (Auto) 0.300, Neut % (Auto) 73.9 H, Lymph % (Auto) 12.9 L, [place] % (Auto) 9.3, Eos % (Auto) 1.8, Baso % (Auto) 1.8 H, Absolute Neuts (auto) 2.5, Absolute Lymphs (auto) 0.43 L, Nucleated RBC % 0, Diff Path Review March foll 11/13/19 08:30: Sodium 147 H, Potassium 4.6, Chloride 119 H, Carbon Dioxide 21.0, BUN 29 H, Creatinine 4.20 H, Estim Creat Clear Calc 15.99, Est GFR (MDRD) Af Amer 14 L, Est GFR (MDRD) Non-Af 12 L, BUN/Creatinine Ratio 6.9 L, Glucose 140 H, Calcium 7.9 L, Phosphorus 3.5, Albumin 1.8 L 11/13/19 08:30: Lactate Dehydrogenase 250 H 11/13/19 10:35: PT 15.2 H, INR 1.2, APTT 24.6 11/13/19 11:46: POC Glucose 143 H 11/13/19 : Eos Smear Total Cells Pending Current Medications Acetaminophen (Tylenol) 650 mg PO Q6H PRN PRN PRN Reason: Pain Score 1-3/Temp > 100.7 F Last Admin: 11/10/19 21:14 Dose: 650 mg Documented by: Albuterol Sulfate (Ventolin Aerosols) 2.5 mg INHALATION Q2H PRN PRN PRN Reason: sob/wheezing Baclofen (Lioresal) 10 mg PO QHS [facility] Last Admin: 11/12/19 22:01 Dose: 10 mg Documented by: Carbamazepine (Tegretol Liquid) 100 mg PO BID [facility] Last Admin: 11/13/19 10:01 Dose: 100 mg Documented by: Dicyclomine HCl (Bentyl) 10 mg PO ACHS [facility] Last Admin: 11/13/19 10:00 Dose: 10 mg Documented by: Doxycycline Monohydrate (Doxycycline) 100 mg PO 0900,2100 [facility] Last Admin: 11/13/19 10:00 Dose: 100 mg Documented by: Ergocalciferol (Vitamin D) 50,000 unit PO SA [facility] Last Admin: 11/07/19 11:12 Dose: Not Given Documented by: Fluticasone Propionate (Flonase Nasal [place]) 1 spray NASAL BID PRN Fluvoxamine Maleate (Luvox) 100 mg PO QHS [facility] Last Admin: 11/12/19 22:02 Dose: 100 mg Documented by: Glucagon () 1 mg IM .X1 PRN PRN Reason: Hypoglycemia Sodium Chloride () 250 mls @ 15 mls/hr IV .[id number] PRN PRN Reason: Saline Flush Last Infusion: 11/09/19 11:20 Dose: 0 mls/hr Documented by: Sodium Chloride () 250 mls @ 15 mls/hr IV .[id number] PRN PRN Reason: Additional IVPB Infusion Dextrose (Dextrose 10%-Water) 250 mls @ 999 mls/hr IV .Q16M PRN; Protocol PRN Reason: HYPOGLYCEMIA Sodium Chloride () 1,000 mls @ 100 mls/hr IV .Q10H YONI Last Infusion: 11/13/19 12:20 Dose: Infused Documented by: Insulin Glargine (Lantus ([facility])) 22 units SC DAILY [facility] Last Admin: 11/13/19 10:31 Dose: Not Given Documented by: Insulin Human Lispro (Humalog Kwikpen ([facility])) 0 unit SC ACHS & 3AM YONI; Protocol Last Admin: 11/13/19 12:04 Dose: Not Given Documented by: Insulin Human Lispro (Humalog Kwikpen ([facility])) 8 unit SC ACHS [facility] Last Admin: 11/13/19 12:04 Dose: Not Given Documented by: Lactulose (Chronulac, Cephulac) 20 gm PO TID [facility] Last Admin: 11/13/19 12:15 Dose: 20 gm Documented by: Magnesium Oxide (Mag-Ox 400) 400 mg PO BID [facility] Last Admin: 11/13/19 10:02 Dose: 400 mg Documented by: Ondansetron HCl (Zofran) 4 mg IV Q6H PRN PRN PRN Reason: NAUSEA/VOMITING Last Admin: 11/12/19 22:09 Dose: 4 mg Documented by: Pantoprazole Sodium (Protonix) 40 mg PO DAILY [facility] Last Admin: 11/13/19 10:02 Dose: 40 mg Documented by: Pregabalin (Lyrica) 50 mg PO BID [facility] Last Admin: 11/09/19 12:48 Dose: Not Given Documented by: Prochlorperazine Edisylate (Compazine Iv) 5 mg IV Q6H PRN PRN PRN Reason: NAUSEA/VOMITING Last Admin: 11/13/19 06:33 Dose: 5 mg Documented by: Rifaximin (Xifaxan) 550 mg PO BID [facility] Last Admin: 11/13/19 10:02 Dose: 550 mg Documented by: Senna/Docusate Sodium (Senokot-S, Vy-Colace) 1 tablet PO DAILY PRN PRN PRN Reason: Constipation Sodium Chloride () 10 - 40 ml IV UD PRN PRN Reason: SALINE FLUSH Last Admin: 11/12/19 16:05 Dose: 10 ml Documented by: Sucralfate (Carafate) 1 gm PO 1HR_ACHS [facility] Last Admin: 11/13/19 10:01 Dose: 1 gm Documented by: Ursodiol (Anthony) 250 mg PO BID [facility] Last Admin: 11/13/19 10:01 Dose: 250 mg Documented by: Medical Necessity - Tobacco Use Smoking Status: Never smoker Route of nutrition/ use of supplements: [] Nutritional Intake: [] IV Site: [] Hill Catheter: [] - Assessment/Plan Antibiotics: [] Assessment/Plan: [] Active and Suspected Problems Cellulitis (Acute) MSSA RLE abscess, now s/p I&D by Dr. Grajeda on 11/06. Course complicated by JULIANNE, high vanc trough. Cr still worsening, neph is following. 11/12 ordered urine eos, changed cefazolin to po doxy to try to avoid any possible nephrotoxicity. Will follow, d/w nursing
--- NOTE | 2019-11-13 14:17 | NURSING ---
1417 Dr. pete sent text requesting her evaluation and discussion with mother/family as they are asking for patient to be transferred. Pt's mother at bedside verbalized that she had requested a phone call this am which she is did not receive, feels pt is getting worse, and requesting she be transferred. Pt's mother informed this is nurse was not aware she was expecting a return call but she is not on the demographics and we would have needed the patient's permission to give you any information. Informed her that the primary RN was informed of the phone call received by the hotel housekeeper and request she discuss giving information to the mother with the patient. Primary RN informed the patient's mother she had talked with the patient regarding this and that is why she was given information when she arrived but was also unaware we were to call her. 1430 at bedside discussed plan of care including transfer option. lab at bedside attempting to obtain labs. Primary RN at bedside.
[2019-11-13 14:23] LABS: Body Fluid Mononuclear WBC # 0.026 10^3/uL; Body Fluid Mononuclear WBC % 96.3 %; Body Fluid Polynuclear WBC # 0.001 10^3/uL; Body Fluid Polynuclear WBC % 3.7 %; Body Fluid Total Cells Counted 0.033 10^3/ul; White Blood Count/Body Fluid 0.027 10^3/uL
[2019-11-13 14:27] LABS: Appearance/Body Fluid SL CLDY; Auto B Fluid Analyzer BKGD Ct COUNTS W/IN LIMITS (W/IN LIMITS); Color/Body Fluid YELLOW; Source- Body Fluid OTHER
[2019-11-13 14:36] LABS: Red Cell Count/Body Fluid 20 /mm3
--- NOTE | 2019-11-13 14:41 | CASEMGMT ---
TAMIKO MELLO updated that patient will need to be transferred and prefers [facility]. TAMIKO MELLO looked up in-network facilities and [facility] is in-network. Hospitalist notified.
[2019-11-13 14:51] LABS: Glucose, Body Fluid 171 mg/dL (40-70)
--- NOTE | 2019-11-13 14:57 | NURSING ---
Pt was down to [facility] for paracentesis. Prior going down she was asked if it was ok to talk to her mother about her condition and treatments she said ok. Later upon pt return from [facility] her mother is present at bedside and was upated on her down for the paracentesis and amount of 1550 cc fluid drained. Pt is resting comfortably and she is no distress with breathing nor nausea. She is started on albumin and mother was updated on all that.
[2019-11-13 15:25] LABS: Body Fluid QC Type(s) BF1Q,BF2Q; Lymphocytes 23 %; Macrophages 77 %
[2019-11-13 16:35] LABS: Bedside Glucose 167 mg/dL (70-110)
--- NOTE | 2019-11-13 16:50 | PN.RENAL_ITS ---
Patient Problems: Active and Suspected Problems Cellulitis (Acute) JULIANNE (acute kidney injury) (Acute) Subjective: Pt is awake alert this evening. No SOB. No CP Still with poor appetite Had paracenteis with 1500 cc fluid removal - Physical Exam Vitals/I&O's: Vital Signs Temp Pulse Resp BP Pulse Ox 97.6 F L 65 16 123/68 H 98 11/13/19 16:23 11/13/19 16:23 11/13/19 16:23 11/13/19 16:23 11/13/19 16:23 Oxygen Flow Rate (L/min) 2 Oxygen Delivery Method [2] Room Air Oxygen Delivery Method [1 ( Room Air Initial Baseline)] Oxygen Delivery Method Room Air Weight: 95.3 kg Body Mass Index (BMI) 27.5 Finger Stick Blood Glucose 217 Intake and Output for Last 24 Hours 11/11/19 11/12/19 11/13/19 23:59 23:59 23:59 Intake Total 2207.50 / 2207.50 1508.75 / 1508.75 2337 / 2337 Output Total 700 / 1300 1175 / 1175 Balance 2207.50 / 2207.50 808.75 / 208.75 1162 / 1162 General: Alert, Oriented x3 HEENT: Atraumatic Oral: Moist Mucosa Neck: Supple, No JVD Lungs: Clear to auscultation, Normal air movement, No rhonchi Cardiovascular: Regular rate, Regular Rhythm, Normal S1, Normal S2 Abdomen: Bowel Sounds Present, Soft, Non Tender, Non-Distended Extremities: No clubbing, No cyanosis, No edema Skin: No rashes Musculoskeletal: No Tenderness to Palpation of Joints or Extremities Lymphatic: No Cervical, Supraclavicular, or Inguinal Adenopathy Neurological: Cranial nerves II-XII grossly intact, Neuro grossly intact Laboratory Results 11/12/19 06:44: POC Glucose 123 H 11/12/19 17:08: POC Glucose 141 H 11/12/19 21:58: POC Glucose 152 H 11/13/19 02:08: POC Glucose 94 11/13/19 07:26: POC Glucose 131 H 11/13/19 08:30: WBC 3.3 L, RBC 3.44 L, Hgb 11.0 L, Hct 34.5 L, MCV 100.3 H, MCH 32.0, MCHC 31.9 L, RDW Std Deviation 54.4 H, RDW Coeff of Valentina 14.7 H, Plt Count 100 L, MPV 10.7, Immature Gran % (Auto) 0.300, Neut % (Auto) 73.9 H, Lymph % (Auto) 12.9 L, [place] % (Auto) 9.3, Eos % (Auto) 1.8, Baso % (Auto) 1.8 H, Absolute Neuts (auto) 2.5, Absolute Lymphs (auto) 0.43 L, Nucleated RBC % 0, Diff Path Review March11/13/19 08:30: Sodium 147 H, Potassium 4.6, Chloride 119 H, Carbon Dioxide 21.0, BUN 29 H, Creatinine 4.20 H, Estim Creat Clear Calc 15.99, Est GFR (MDRD) Af Amer 14 L, Est GFR (MDRD) Non-Af 12 L, BUN/Creatinine Ratio 6.9 L, Glucose 140 H, Calcium 7.9 L, Phosphorus 3.5, Albumin 1.8 L 11/13/19 08:30: Lactate Dehydrogenase 250 H 11/13/19 08:30: Total Bilirubin Pending, Direct Bilirubin Pending, AST Pending, ALT Pending, Alkaline Phosphatase Pending, Total Protein Pending, Albumin Pending 11/13/19 10:19: Fluid Glucose 171 H, Fluid Total Protein 1.0 11/13/19 10:35: PT 15.2 H, INR 1.2, APTT 24.6 11/13/19 11:46: POC Glucose 143 H 11/13/19 13:51: Fluid Source OTHER, Fluid Color YELLOW, Fluid Appearance SL CLDY, Fluid WBC 0.027, Fluid RBC 20, Fluid Tot Cell Count 0.033 H, Fld Polynuclear WBCs # 0.001, Fld Polynuclear WBCs % 3.7, Fluid Mononuclear WBCs 0.026, Fld Mononuclear WBCs % 96.3, Fluid Lymphocytes 23, Fluid Macrophages 77, Fl Pathologist Comment May follow, Fluid Comment 2 Pending 11/13/19 14:45: Ammonia 11.0 11/13/19 16:23: POC Glucose 167 H 11/13/19 : Eos Smear Total Cells Pending Current Medications Acetaminophen (Tylenol) 650 mg PO Q6H PRN PRN PRN Reason: Pain Score 1-3/Temp > 100.7 F Last Admin: 11/10/19 21:14 Dose: 650 mg Documented by: Albuterol Sulfate (Ventolin Aerosols) 2.5 mg INHALATION Q2H PRN PRN PRN Reason: sob/wheezing Baclofen (Lioresal) 10 mg PO QHS [facility] Last Admin: 11/12/19 22:01 Dose: 10 mg Documented by: Carbamazepine (Tegretol Liquid) 100 mg PO BID [facility] Last Admin: 11/13/19 10:01 Dose: 100 mg Documented by: Dicyclomine HCl (Bentyl) 10 mg PO ACHS [facility] Last Admin: 11/13/19 16:34 Dose: 10 mg Documented by: Doxycycline Monohydrate (Doxycycline) 100 mg PO 0900,2100 [facility] Last Admin: 11/13/19 10:00 Dose: 100 mg Documented by: Ergocalciferol (Vitamin D) 50,000 unit PO SA [facility] Last Admin: 11/07/19 11:12 Dose: Not Given Documented by: Fluticasone Propionate (Flonase Nasal [place]) 1 spray NASAL BID PRN Fluvoxamine Maleate (Luvox) 100 mg PO QHS [facility] Last Admin: 11/12/19 22:02 Dose: 100 mg Documented by: Glucagon () 1 mg IM .X1 PRN PRN Reason: Hypoglycemia Sodium Chloride () 250 mls @ 15 mls/hr IV .[id number] PRN PRN Reason: Saline Flush Last Infusion: 11/09/19 11:20 Dose: 0 mls/hr Documented by: Sodium Chloride () 250 mls @ 15 mls/hr IV .[id number] PRN PRN Reason: Additional IVPB Infusion Dextrose (Dextrose 10%-Water) 250 mls @ 999 mls/hr IV .Q16M PRN; Protocol PRN Reason: HYPOGLYCEMIA Sodium Chloride () 1,000 mls @ 100 mls/hr IV .Q10H [facility] Last Infusion: 11/13/19 12:20 Dose: Infused Documented by: Insulin Glargine (Lantus (Bk)) 22 units SC DAILY [facility] Last Admin: 11/13/19 10:31 Dose: Not Given Documented by: Insulin Human Lispro (Humalog Kwikpen ([facility])) 0 unit SC ACHS & 3AM YONI; Protocol Last Admin: 11/13/19 12:04 Dose: Not Given Documented by: Insulin Human Lispro (Humalog Kwikpen (Bkc)) 8 unit SC [facility] Last Admin: 11/13/19 12:04 Dose: Not Given Documented by: Lactulose (Chronulac, Cephulac) 20 gm PO TID [facility] Last Admin: 11/13/19 12:15 Dose: 20 gm Documented by: Magnesium Oxide (Mag-Ox 400) 400 mg PO BID [facility] Last Admin: 11/13/19 10:02 Dose: 400 mg Documented by: Ondansetron HCl (Zofran) 4 mg IV Q6H PRN PRN PRN Reason: NAUSEA/VOMITING Last Admin: 11/12/19 22:09 Dose: 4 mg Documented by: Pantoprazole Sodium (Protonix) 40 mg PO DAILY [facility] Last Admin: 11/13/19 10:02 Dose: 40 mg Documented by: Pregabalin (Lyrica) 50 mg PO BID [facility] Last Admin: 11/09/19 12:48 Dose: Not Given Documented by: Rifaximin (Xifaxan) 550 mg PO BID [facility] Last Admin: 11/13/19 10:02 Dose: 550 mg Documented by: Senna/Docusate Sodium (Senokot-S, Vy-Colace) 1 tablet PO DAILY PRN PRN PRN Reason: Constipation Sodium Chloride () 10 - 40 ml IV UD PRN PRN Reason: SALINE FLUSH Last Admin: 11/12/19 16:05 Dose: 10 ml Documented by: Sucralfate (Carafate) 1 gm PO 1HR_ACHS [facility] Last Admin: 11/13/19 16:34 Dose: 1 gm Documented by: Ursodiol (Anthony) 250 mg PO BID [facility] Last Admin: 11/13/19 10:01 Dose: 250 mg Documented by: Medical Necessity - Tobacco Use Smoking Status: Never smoker Assessment/Plan All Active Problems Cellulitis (Acute) JULIANNE (acute kidney injury) (Acute) Acute renal failure. Baseline creatinine is normal. Did receive a CT abdomen with 100 cc of contrast on the . Also received IV vancomycin for staph aureus with a trough level of 36. Creatinine started increasing on the . Urine analysis shows some white cells and RBCs, no protein CT abdomen and renal ultrasound did not show any hydronephrosis Acute renal failure is likely ATN related to contrast and vancomycin. Plan Pt did not need [employer] so far Cr is stable at 4.2 mg/dL Continue IV fluids the same rate No need for [employer] today Will continue to monitor for kidney function recovery Yohan BMP with accurate I/O Please avoid high volume paracentesis and always give IV albumin
[2019-11-13 17:23] LABS: AST(SGOT) 55 U/L (15-37); Alanine Aminotransfer ALT/SGPT 9 U/L (13-56); Albumin, Serum 1.8 g/dL (3.2-5.0); Alkaline Phosphatase 383 U/L (45-117); Bilirubin, Direct 1.07 mg/dL (0.00-0.30); Globulin 4.7 g/dL (2.2-4.2); Protein, Total 6.5 g/dL (6.4-8.2)
--- NOTE | 2019-11-13 17:59 | PN_ITS ---
Patient Problems: Active and Suspected Problems Cellulitis (Acute) JULIANNE (acute kidney injury) (Acute) Reason for Visit: Follow-up on JULIANNE Subjective: Patient was seen and examined. She is more lethargic. Denied any complaints. She had ultrasound-guided paracentesis done. More than 1.5 L of fluid removed. Patient will receive albumin. Objective: Physical exam: General: Alert, Oriented x3, Cooperative, No apparent distress HEENT: Atraumatic, PERRLA, EOMI, Normocephalic Oral: Moist Mucosa Neck: Supple, No JVD, Negative Carotid Bruits Lungs: Clear to auscultation, Normal air movement, No rhonchi, No wheeze Cardiovascular: Regular rate, Regular Rhythm, Normal S1, Normal S2, No murmurs Abdomen: Bowel Sounds Present, Soft, Non Tender, Non-Distended, No Hepato- splenomegaly Extremities: No clubbing, No cyanosis, No edema, Capillary Refill Less than 3 Seconds Skin: - - Right knee wrapped in bandage. Musculoskeletal: No Muscle Wasting, right knee wrapped in bandage Lymphatic: No Cervical, Supraclavicular, or Inguinal Adenopathy Neurological: Cranial nerves II-XII grossly intact, Neuro grossly intact Psych/Mental Status: Normal Affect, Appropriate, Anxious, Alert and oriented to time, place, person, mood and affect, no flapping tremors Vitals/I&O's: Vital Signs Temp Pulse Resp BP Pulse Ox 98.9 F 64 18 152/73 H 99 11/13/19 17:27 11/13/19 17:27 11/13/19 17:27 11/13/19 17:27 11/13/19 17:27 Oxygen Flow Rate (L/min) 2 Oxygen Delivery Method [2] Room Air Oxygen Delivery Method [1 ( Room Air Initial Baseline)] Oxygen Delivery Method Room Air Weight: 95.3 kg Body Mass Index (BMI) 27.5 Finger Stick Blood Glucose 217 Intake and Output for Last 24 Hours 11/11/19 11/12/19 11/13/19 23:59 23:59 23:59 Intake Total 2207.50 / 2207.50 1508.75 / 1508.75 3421 / 3421 Output Total 700 / 1300 4025 / 4025 Balance 2207.50 / 2207.50 808.75 / 208.75 -604 / -604 Laboratory Results 11/12/19 06:44: POC Glucose 123 H 11/12/19 21:58: POC Glucose 152 H 11/13/19 02:08: POC Glucose 94 11/13/19 07:26: POC Glucose 131 H 11/13/19 08:30: WBC 3.3 L, RBC 3.44 L, Hgb 11.0 L, Hct 34.5 L, MCV 100.3 H, MCH 32.0, MCHC 31.9 L, RDW Std Deviation 54.4 H, RDW Coeff of Valentina 14.7 H, Plt Count 100 L, MPV 10.7, Immature Gran % (Auto) 0.300, Neut % (Auto) 73.9 H, Lymph % (Auto) 12.9 L, [place] % (Auto) 9.3, Eos % (Auto) 1.8, Baso % (Auto) 1.8 H, Absolute Neuts (auto) 2.5, Absolute Lymphs (auto) 0.43 L, Nucleated RBC % 0, Diff Path Review March11/13/19 08:30: Sodium 147 H, Potassium 4.6, Chloride 119 H, Carbon Dioxide 21.0, BUN 29 H, Creatinine 4.20 H, Estim Creat Clear Calc 15.99, Est GFR (MDRD) Af Amer 14 L, Est GFR (MDRD) Non-Af 12 L, BUN/Creatinine Ratio 6.9 L, Glucose 140 H, Calcium 7.9 L, Phosphorus 3.5, Albumin 1.8 L 11/13/19 08:30: Lactate Dehydrogenase 250 H 11/13/19 08:30: Total Bilirubin 1.60 H, Direct Bilirubin 1.07 H, AST 55 H, ALT 9 L, Alkaline Phosphatase 383 H, Total Protein 6.5, Albumin 1.8 L, Globulin 4.7 H 11/13/19 10:19: Fluid Glucose 171 H, Fluid Total Protein 1.0 11/13/19 10:35: PT 15.2 H, INR 1.2, APTT 24.6 11/13/19 11:46: POC Glucose 143 H 11/13/19 13:51: Fluid Source OTHER, Fluid Color YELLOW, Fluid Appearance SL CLDY, Fluid WBC 0.027, Fluid RBC 20, Fluid Tot Cell Count 0.033 H, Fld Polynuclear WBCs # 0.001, Fld Polynuclear WBCs % 3.7, Fluid Mononuclear WBCs 0.026, Fld Mononuclear WBCs % 96.3, Fluid Lymphocytes 23, Fluid Macrophages 77, Fl Pathologist Comment May follow, Fluid Comment 2 Pending 11/13/19 14:45: Ammonia 11.0 11/13/19 16:23: POC Glucose 167 H 11/13/19 : Eos Smear Total Cells Pending Current Medications Acetaminophen (Tylenol) 650 mg PO Q6H PRN PRN PRN Reason: Pain Score 1-3/Temp > 100.7 F Last Admin: 11/10/19 21:14 Dose: 650 mg Documented by: Albuterol Sulfate (Ventolin Aerosols) 2.5 mg INHALATION Q2H PRN PRN PRN Reason: sob/wheezing Baclofen (Lioresal) 10 mg PO QHS [facility] Last Admin: 11/12/19 22:01 Dose: 10 mg Documented by: Carbamazepine (Tegretol Liquid) 100 mg PO BID [facility] Last Admin: 11/13/19 10:01 Dose: 100 mg Documented by: Dicyclomine HCl (Bentyl) 10 mg PO ACHS [facility] Last Admin: 11/13/19 16:34 Dose: 10 mg Documented by: Doxycycline Monohydrate (Doxycycline) 100 mg PO 0900,2100 [facility] Last Admin: 11/13/19 10:00 Dose: 100 mg Documented by: Ergocalciferol (Vitamin D) 50,000 unit PO SA [facility] Last Admin: 11/07/19 11:12 Dose: Not Given Documented by: Fluticasone Propionate (Flonase Nasal [place]) 1 spray NASAL BID PRN Fluvoxamine Maleate (Luvox) 100 mg PO QHS [facility] Last Admin: 11/12/19 22:02 Dose: 100 mg Documented by: Glucagon () 1 mg IM .X1 PRN PRN Reason: Hypoglycemia Sodium Chloride () 250 mls @ 15 mls/hr IV .[id number] PRN PRN Reason: Saline Flush Last Infusion: 11/09/19 11:20 Dose: 0 mls/hr Documented by: Sodium Chloride () 250 mls @ 15 mls/hr IV .[id number] PRN PRN Reason: Additional IVPB Infusion Dextrose (Dextrose 10%-Water) 250 mls @ 999 mls/hr IV .Q16M PRN; Protocol PRN Reason: HYPOGLYCEMIA Sodium Chloride () 1,000 mls @ 100 mls/hr IV .Q10H [facility] Last Admin: 11/13/19 17:19 Dose: 100 mls/hr Documented by: Insulin Glargine (Lantus (Bkc)) 22 units SC DAILY [facility] Last Admin: 11/13/19 10:31 Dose: Not Given Documented by: Insulin Human Lispro (Humalog Kwikpen (Bk)) 0 unit SC ACHS & 3AM YONI; Protocol Last Admin: 11/13/19 17:10 Dose: Not Given Documented by: Insulin Human Lispro (Humalog Kwikpen (Bkc)) 8 unit SC ACHS [facility] Last Admin: 11/13/19 17:11 Dose: Not Given Documented by: Lactulose (Chronulac, Cephulac) 20 gm PO TID [facility] Last Admin: 11/13/19 12:15 Dose: 20 gm Documented by: Magnesium Oxide (Mag-Ox 400) 400 mg PO BID [facility] Last Admin: 11/13/19 10:02 Dose: 400 mg Documented by: Ondansetron HCl (Zofran) 4 mg IV Q6H PRN PRN PRN Reason: NAUSEA/VOMITING Last Admin: 11/12/19 22:09 Dose: 4 mg Documented by: Pantoprazole Sodium (Protonix) 40 mg PO DAILY [facility] Last Admin: 11/13/19 10:02 Dose: 40 mg Documented by: Pregabalin (Lyrica) 50 mg PO BID [facility] Last Admin: 11/09/19 12:48 Dose: Not Given Documented by: Rifaximin (Xifaxan) 550 mg PO BID [facility] Last Admin: 11/13/19 10:02 Dose: 550 mg Documented by: Senna/Docusate Sodium (Senokot-S, Yv-Colace) 1 tablet PO DAILY PRN PRN PRN Reason: Constipation Sodium Chloride () 10 - 40 ml IV UD PRN PRN Reason: SALINE FLUSH Last Admin: 11/12/19 16:05 Dose: 10 ml Documented by: Sucralfate (Carafate) 1 gm PO 1HR_ACHS [facility] Last Admin: 11/13/19 16:34 Dose: 1 gm Documented by: Ursodiol (Anthony) 250 mg PO BID [facility]I Last Admin: 11/13/19 10:01 Dose: 250 mg Documented by: STROKE Vital Signs/Narrative: Vital Signs Temp Pulse Resp BP Pulse Ox 11/13/19 17:27 98.9 F 64 18 152/73 H 99 11/13/19 16:23 97.6 F L 65 16 123/68 H 98 11/13/19 16:00 18 11/13/19 15:08 98.5 F 63 16 133/59 H 98 Medical Necessity - Tobacco Use Smoking Status: Never smoker Assessment/Plan All Active Problems Cellulitis (Acute) JULIANNE (acute kidney injury) (Acute) 1. Right MSSA posterior thigh abscess/popliteal fossa cellulitis, present on admission Status post I&D of right thigh abscess Intra-operative cultures are growing staph aureus, her operative cultures are ne gative Off IV vancomycin on account of worsening kidney function On doxycycline ID following 2. JULIANNE, pre-renal likely secondary to ATN/contrast nephropathy/vancomycin toxicity Cr is 4.20, baseline Cr 0.74, no electrolytes imbalances Continue to hold spironolactone and Lasix Continue on IVF 100cc/hr Renal ultrasound shows no hydronephrosis Nephrology following; patient may need dialysis Repeat labs in a.m. 3. Type 2 DM, BS are fairly controlled, On Lantus, scheduled Lispro, ISS Continue with scheduled lispro and insulin sliding scale 4. Autoimmune hepatitis/cirrhosis of liver No current hepatic encephalopathy On lactulose, rifaximin Off spironolactone and lasix for now on account of JULIANNE 5. DVT PPx- early ambulation, not on chemical prophylaxis on account of thrombocytopenia Code Visit Inpatient E&M: 70559 Subs Hosp L2
--- NOTE | 2019-11-13 18:01 | DCINST_ITS ---
- Discharge Diagnoses Current Active Problems: Current Active and Chronic Problems Cellulitis (Acute) JULIANNE (acute kidney injury) (Acute) Reason(s) for Visit for Discharge Instructions: Right thigh abscess You will use the following diet at home:: Cardiac Your food should be the consistency of: Regular Your liquids should be the consistency of: Regular/Thin Discharge Activity: May Not Drive, May Shower, Use Walker May shower in (days): 5 Ice area for (Minutes): 20 - Every hour while awake. Weight Bearing Status: Weight bearing as tolerated Keep extremity elevated above heart level: Operative Extremity Call your doctor if your incision/area has: Continuous Slow Oozing, Sudden Increased Bleeding, Increased Pain/ Swelling, Increased Redness, Foul Smelling Discharge Call your doctor if you observe: Fever of 101 or Higher, Coldness, Increased Pain, Numbness or Tingling, Change in Color, Calf discomfort Additional Dressing/Incision Instructions:: keep incision covered. remove and replace for showering. Allergies/Adverse Reactions: Allergies adhesive Allergy (Verified 01/09/19 07:10) Rash escitalopram oxalate [From Lexapro] Allergy (Verified 01/09/19 07:10) blindness gabapentin [From Neurontin] Allergy (Verified 01/09/19 07:10) Alan Jez's Syndrome lamotrigine [From Lamictal] Allergy (Verified 01/09/19 07:10) Blindness Preservatives Allergy (Uncoded 01/09/19 07:10) passed out, lungs deflated Preservatives in various foods including packaged gladys cheese, lettuce, and seafood. sour cream Allergy (Uncoded 01/09/19 07:10) Anaphylaxis Medications to take at Discharge Potassium Chloride [Klor-Con M20] 20 meq PO BID 09/25/15 Albuterol Inhaler [Ventolin Hfa] 2 puff INHALATION Q4H PRN PRN 02/16/16 Furosemide [Lasix] 80 mg PO DAILY 03/14/17 Insulin Lispro [Humalog] 12 units SC ACHS 03/14/17 Magnesium Oxide [Magnesium] 400 mg PO BID 03/14/17 Spironolactone [Aldactone] 100 mg PO DAILY 04/28/17 traMADol [Ultram] 50 mg PO Q6H PRN PRN 04/28/17 Sennosides/Docusate Sodium [Senna Plus Tablet] 1 each PO DAILY PRN 04/29/17 Fluvoxamine Maleate [Luvox] 100 mg PO QHS 11/04/17 Rifaximin [Xifaxan] 550 mg PO BID 11/04/17 Ursodiol [Actigall] 300 mg PO BID 11/04/17 Carbamazepine [Carbatrol] 100 mg PO BID 08/19/18 Cholecalciferol (Vitamin D3) [Vitamin D3] 50,000 unit PO SA 08/19/18 Dicyclomine HCl [Bentyl] 10 mg PO ACHS 08/19/18 Fluticasone Propionate [Flonase Allergy Relief] 15.8 ml NS BID PRN 08/19/18 Sucralfate [Carafate] 1 gm PO ACHS 08/19/18 Omeprazole [Prilosec] 40 mg PO DAILY #0 08/20/18 Baclofen 10 mg PO QHS 01/09/19 Lactulose [Chronulac] 20 gm PO TID 01/09/19 Insulin Degludec [Tresiba Flextouch U-100] 20 unit SQ DAILY #0 01/10/19 Insulin Lispro [Humalog KwikPen] See Protocol SC ACHS insuln.pen 01/10/19 Pregabalin [Lyrica] 50 mg PO BID 11/06/19 Primary Care Physician: Janay Canchola MD [Primary Care Provider] - Test Results: Test results from this visit will be discussed in further detail at your follow- up appointment, if applicable. Please Follow Up With: Alan Grajeda MD - call for appointment [phone] When: 10-12 days
--- NOTE | 2019-11-13 18:02 | PCM.DC.SUM ---
Discharge Date and Diagnosis Date of Admission: 11/06/19 Date of Discharge: 11/13/19 - Primary Discharge Diagnosis Active and Suspected Problems Right MSSA posterior thigh abscess/posterior fossa cellulitis JULIANNE, prerenal/ATN/contrast nephropathy/vancomycin - Secondary Discharge Diagnosis Chronic Problems Autoimmune hepatitis (Chronic) Diabetes mellitus (Chronic) Liver cirrhosis (Chronic) Reilly thyroiditis (Chronic) Autoimmune hepatitis (Chronic) Schizoaffective disorder (Chronic) Bipolar disorder (Chronic) Splenomegaly (Chronic) Hospital Course and Treatment Imaging Results: 11/13/19 10:18 US Para [Paracentesis with US] [US] Routine Clinical Impression(s) from Imaging Studies Knee X-Ray 11/06/19 08:45 IMPRESSION: Trace joint effusion. No fracture or malalignment. No destructive bony process. Electronically Signed: Good Abreu MD (Brooks) at 12:20 EST , Service support , Lower Extremity MRI 11/06/19 11:42 IMPRESSION: Abscess at the superficial aspect of the distal biceps femoris muscle and mild biceps femoris myositis. Mild arthrosis of the medial femorotibial compartment. Subchondral lesion of the inferior apex of the femoral trochlea. Epimysial strain of the distal vastus medialis muscle. Mild lateral tilt of the patella. Small joint effusion. Small enchondroma in the distal femur. Electronically Signed: Edin Gray MD at 13:59 EST Tel , Service support , Abdomen CT 11/06/19 15:16 IMPRESSION: 1. Small bibasilar pleural effusions and bibasilar atelectasis. 2. A TIPS hepatic shunt is noted. The liver is small in size and nodular in contour consistent with cirrhosis. 3. Splenomegaly is present. Splenic varices are seen. 4. Bilateral renal cysts. 5. Minimal ascites of the right paracolic cutter. Diffuse fatty stranding is seen throughout the abdomen. 6. Scattered shoddy retroperitoneal nodes. Electronically Signed: Douglas Sadler MD at 18:59 EST , Service support , Renal Ultrasound 11/09/19 08:48 IMPRESSION: 1. Bilateral renal hypertrophy. No hydronephrosis. 2. Cortical cyst in the posterior lower pole of the left kidney, correlating to a finding on CT. 3. Unremarkable urinary bladder. Electronically Signed: Ezequiel Mayorga MD at 13:48 EST , Service support , Paracentesis Ultrasound 11/13/19 10:18 IMPRESSION: Successful ultrasound-guided paracentesis. Electronically Signed: Beulah Akers, at 13:56 EST Tel , Service support , Nephrology Orthopedic surgery Operations: - - Irrigation debridement right thigh abscess 11/07/19 Procedures: Paracentesis Summary of Care Provided: The patient is a 49 year old F with past medical history of type II DM, autoimmune hepatitis, cirrhosis with varices who was admitted with erythema of her right popliteal fossa with status 10 days prior to admission. She was recently diagnosed with flulike symptoms and received Bactrim for upper respiratory infection. She was found to have erythema of her right popliteal fossa and was given Keflex. Patient had worsening of her cellulitis symptoms and went to [facility]. At [facility] her lactic acid was elevated. She received IV clindamycin and was transferred to [facility]. Patient underwent MRI of the knee that showed large fluid collection in her right popliteal fossa. Was started on IV vancomycin and Zosyn. Her admitting creatinine was 0.61. On 11/08/19 creatinine was seen to have increased to 1.54. Vancomycin trough was found to be 32. Vancomycin was stopped as well as patient spironolactone and Lasix. She was continued on IV fluids. Her kidneys continue to be progressively worse. Nephrology was consulted. Renal ultrasound was negative for obstruction. Patient was intermittently lethargic. Ammonia was normal. This was felt to be due to her abnormal kidney function. Patient's creatinine appears to have plateaued the last 3 days of her hospital stay. Last day of admission, patient was found to have progressive abdominal distention. She underwent ultrasound guided paracentesis and 1500 mils of fluid were drained. She received 50 g of albumin. On discussion with the family, family requested transfer to the [facility] and she was admitted by the hepatology team. Patient was transferred in a stable state. Subjective: See progress note Objective: See progress note - Physical Exam Vitals/I&O's: Vital Signs Temp Pulse Resp BP Pulse Ox 98.9 F 64 18 152/73 H 99 11/13/19 17:27 11/13/19 17:27 11/13/19 17:27 11/13/19 17:27 11/13/19 17:27 Oxygen Flow Rate (L/min) 2 Oxygen Delivery Method [2] Room Air Oxygen Delivery Method [1 ( Room Air Initial Baseline)] Oxygen Delivery Method Room Air Weight: 95.3 kg Body Mass Index (BMI) 27.5 Finger Stick Blood Glucose 217 Intake and Output for Last 24 Hours 11/11/19 11/12/19 11/13/19 23:59 23:59 23:59 Intake Total 2207.50 / 2207.50 1508.75 / 1508.75 3421 / 3421 Output Total 700 / 1300 4025 / 4025 Balance 2207.50 / 2207.50 808.75 / 208.75 -604 / -604 Laboratory Results 11/12/19 06:44: POC Glucose 123 H 11/12/19 21:58: POC Glucose 152 H 11/13/19 02:08: POC Glucose 94 11/13/19 07:26: POC Glucose 131 H 11/13/19 08:30: WBC 3.3 L, RBC 3.44 L, Hgb 11.0 L, Hct 34.5 L, MCV 100.3 H, MCH 32.0, MCHC 31.9 L, RDW Std Deviation 54.4 H, RDW Coeff of Valentina 14.7 H, Plt Count 100 L, MPV 10.7, Immature Gran % (Auto) 0.300, Neut % (Auto) 73.9 H, Lymph % (Auto) 12.9 L, [place] % (Auto) 9.3, Eos % (Auto) 1.8, Baso % (Auto) 1.8 H, Absolute Neuts (auto) 2.5, Absolute Lymphs (auto) 0.43 L, Nucleated RBC % 0, Diff Path Review March11/13/19 08:30: Sodium 147 H, Potassium 4.6, Chloride 119 H, Carbon Dioxide 21.0, BUN 29 H, Creatinine 4.20 H, Estim Creat Clear Calc 15.99, Est GFR (MDRD) Af Amer 14 L, Est GFR (MDRD) Non-Af 12 L, BUN/Creatinine Ratio 6.9 L, Glucose 140 H, Calcium 7.9 L, Phosphorus 3.5, Albumin 1.8 L 11/13/19 08:30: Lactate Dehydrogenase 250 H 11/13/19 08:30: Total Bilirubin 1.60 H, Direct Bilirubin 1.07 H, AST 55 H, ALT 9 L, Alkaline Phosphatase 383 H, Total Protein 6.5, Albumin 1.8 L, Globulin 4.7 H 11/13/19 10:19: Fluid Glucose 171 H, Fluid Total Protein 1.0 11/13/19 10:35: PT 15.2 H, INR 1.2, APTT 24.6 11/13/19 11:46: POC Glucose 143 H 11/13/19 13:51: Fluid Source OTHER, Fluid Color YELLOW, Fluid Appearance SL CLDY, Fluid WBC 0.027, Fluid RBC 20, Fluid Tot Cell Count 0.033 H, Fld Polynuclear WBCs # 0.001, Fld Polynuclear WBCs % 3.7, Fluid Mononuclear WBCs 0.026, Fld Mononuclear WBCs % 96.3, Fluid Lymphocytes 23, Fluid Macrophages 77, Fl Pathologist Comment May follow, Fluid Comment 2 Pending 11/13/19 14:45: Ammonia 11.0 11/13/19 16:23: POC Glucose 167 H 11/13/19 : Eos Smear Total Cells Pending Current Medications Acetaminophen (Tylenol) 650 mg PO Q6H PRN PRN PRN Reason: Pain Score 1-3/Temp > 100.7 F Last Admin: 11/10/19 21:14 Dose: 650 mg Documented by: Albuterol Sulfate (Ventolin Aerosols) 2.5 mg INHALATION Q2H PRN PRN PRN Reason: sob/wheezing Baclofen (Lioresal) 10 mg PO QHS [facility] Last Admin: 11/12/19 22:01 Dose: 10 mg Documented by: Carbamazepine (Tegretol Liquid) 100 mg PO BID [facility] Last Admin: 11/13/19 10:01 Dose: 100 mg Documented by: Dicyclomine HCl (Bentyl) 10 mg PO ACHS [facility] Last Admin: 11/13/19 16:34 Dose: 10 mg Documented by: Doxycycline Monohydrate (Doxycycline) 100 mg PO 0900,2100 [facility] Last Admin: 11/13/19 10:00 Dose: 100 mg Documented by: Ergocalciferol (Vitamin D) 50,000 unit PO SA [facility] Last Admin: 11/07/19 11:12 Dose: Not Given Documented by: Fluticasone Propionate (Flonase Nasal [place]) 1 spray NASAL BID PRN Fluvoxamine Maleate (Luvox) 100 mg PO QHS [facility] Last Admin: 11/12/19 22:02 Dose: 100 mg Documented by: Glucagon () 1 mg IM .X1 PRN PRN Reason: Hypoglycemia Sodium Chloride () 250 mls @ 15 mls/hr IV .[id number] PRN PRN Reason: Saline Flush Last Infusion: 11/09/19 11:20 Dose: 0 mls/hr Documented by: Sodium Chloride () 250 mls @ 15 mls/hr IV .[id number] PRN PRN Reason: Additional IVPB Infusion Dextrose (Dextrose 10%-Water) 250 mls @ 999 mls/hr IV .Q16M PRN; Protocol PRN Reason: HYPOGLYCEMIA Sodium Chloride () 1,000 mls @ 100 mls/hr IV .Q10H [facility] Last Admin: 11/13/19 17:19 Dose: 100 mls/hr Documented by: Insulin Glargine (Lantus (Bkc)) 22 units SC DAILY [facility] Last Admin: 11/13/19 10:31 Dose: Not Given Documented by: Insulin Human Lispro (Humalog Kwikpen (Bkc)) 0 unit SC ACHS & 3AM YONI; Protocol Last Admin: 11/13/19 17:10 Dose: Not Given Documented by: Insulin Human Lispro (Humalog Kwikpen (Bkc)) 8 unit SC ACHS [facility] Last Admin: 11/13/19 17:11 Dose: Not Given Documented by: Lactulose (Chronulac, Cephulac) 20 gm PO TID [facility] Last Admin: 11/13/19 12:15 Dose: 20 gm Documented by: Magnesium Oxide (Mag-Ox 400) 400 mg PO BID [facility] Last Admin: 11/13/19 10:02 Dose: 400 mg Documented by: Ondansetron HCl (Zofran) 4 mg IV Q6H PRN PRN PRN Reason: NAUSEA/VOMITING Last Admin: 11/12/19 22:09 Dose: 4 mg Documented by: Pantoprazole Sodium (Protonix) 40 mg PO DAILY [facility] Last Admin: 11/13/19 10:02 Dose: 40 mg Documented by: Pregabalin (Lyrica) 50 mg PO BID [facility] Last Admin: 11/09/19 12:48 Dose: Not Given Documented by: Rifaximin (Xifaxan) 550 mg PO BID [facility] Last Admin: 11/13/19 10:02 Dose: 550 mg Documented by: Senna/Docusate Sodium (Senokot-S, Vy-Colace) 1 tablet PO DAILY PRN PRN PRN Reason: Constipation Sodium Chloride () 10 - 40 ml IV UD PRN PRN Reason: SALINE FLUSH Last Admin: 11/12/19 16:05 Dose: 10 ml Documented by: Sucralfate (Carafate) 1 gm PO 1HR_ACHS [facility] Last Admin: 11/13/19 16:34 Dose: 1 gm Documented by: Ursodiol (Anthony) 250 mg PO BID [facility] Last Admin: 11/13/19 10:01 Dose: 250 mg Documented by: Discharge Diet: No Restrictions Discharge Activity: May Not Drive, May Shower, Use Walker May shower in (days): 5 Ice area for (Minutes): 20 - Every hour while awake. Weight Bearing Status: Weight bearing as tolerated Keep extremity elevated above heart level: Operative Extremity Call your doctor if your incision/area has: Continuous Slow Oozing, Sudden Increased Bleeding, Increased Pain/ Swelling, Increased Redness, Foul Smelling Discharge Call your doctor if you observe: Fever of 101 or Higher, Coldness, Increased Pain, Numbness or Tingling, Change in Color, Calf discomfort Additional Dressing/Incision Instructions:: keep incision covered. remove and replace for showering. Home Medications: Medications to take at Discharge Potassium Chloride [Klor-Con M20] 20 meq PO BID 09/25/15 Albuterol Inhaler [Ventolin Hfa] 2 puff INHALATION Q4H PRN PRN 02/16/16 Furosemide [Lasix] 80 mg PO DAILY 03/14/17 Insulin Lispro [Humalog] 12 units SC ACHS 03/14/17 Magnesium Oxide [Magnesium] 400 mg PO BID 03/14/17 Spironolactone [Aldactone] 100 mg PO DAILY 04/28/17 traMADol [Ultram] 50 mg PO Q6H PRN PRN 04/28/17 Sennosides/Docusate Sodium [Senna Plus Tablet] 1 each PO DAILY PRN 04/29/17 Fluvoxamine Maleate [Luvox] 100 mg PO QHS 11/04/17 Rifaximin [Xifaxan] 550 mg PO BID 11/04/17 Ursodiol [Actigall] 300 mg PO BID 11/04/17 Carbamazepine [Carbatrol] 100 mg PO BID 08/19/18 Cholecalciferol (Vitamin D3) [Vitamin D3] 50,000 unit PO SA 08/19/18 Dicyclomine HCl [Bentyl] 10 mg PO ACHS 08/19/18 Fluticasone Propionate [Flonase Allergy Relief] 15.8 ml NS BID PRN 08/19/18 Sucralfate [Carafate] 1 gm PO ACHS 08/19/18 Omeprazole [Prilosec] 40 mg PO DAILY #0 08/20/18 Baclofen 10 mg PO QHS 01/09/19 Lactulose [Chronulac] 20 gm PO TID 01/09/19 Insulin Degludec [Tresiba Flextouch U-100] 20 unit SQ DAILY #0 01/10/19 Insulin Lispro [Humalog KwikPen] See Protocol [facility] insuln.pen 01/10/19 Pregabalin [Lyrica] 50 mg PO BID 11/06/19 Primary Care Physician: Janay Canchola MD [Primary Care Provider] - Please Follow Up With: Alan Grajeda MD - call for appointment [phone] When: 10-12 days Disposition: Acute care Hospital Minutes spent on discharge:: 45 Patient Condition:: Stable Medical Necessity - Tobacco Use Smoking Status: Never smoker Tobacco Use: Non-smoker Meaningful Use Info Meaningful Use Diagnoses (Choose all that apply): None applicable Code Visit Inpatient E&M: 04192 Disch Hosp
[2019-11-13] MEDS: Ondansetron 4 MG/2 ML Vial IV (21:02)
[2019-11-13] MEDS: 0.9% Saline Lock 10 ML Syringe IV (21:02)
[2019-11-16 12:17] LABS: Pathologist Review Reviewed
[2019-11-16 13:02] LABS: Eosinophil Ct. Urine No Eosinophils Seen % (.)
[2019-11-16 13:33] LABS: Pathologist Comment/Body Fluid Reviewed
== END 2019-11-13 21:10 | disposition short-term general hospital (02) | DRG 364 ==
PROVIDERS: Anesthesiology; Internal Medicine; Internal Medicine Infectious Disease; Specialist; Student in an Organized Health Care Education/Training Program; Admitting Provider Hospitalist; Family Provider Internal Medicine; PCP Internal Medicine; Visit Provider Internal Medicine
PROC: 0KDQ0ZZ Extraction of Right Upper Leg Muscle, Open Approach (ICD-10-PCS; principal; 2019-11-07 07:20)
DX: L02.415 Cutaneous abscess of right lower limb (principal); K75.4 Autoimmune hepatitis; L03.115 Cellulitis of right lower limb; K74.60 Unspecified cirrhosis of liver; B95.61 Methicillin susceptible Staphylococcus aureus infection as the cause of diseases classified elsewhere; E11.65 Type 2 diabetes mellitus with hyperglycemia; D61.818 Other pancytopenia; T50.8X5A Adverse effect of diagnostic agents, initial encounter; T36.8X5A Adverse effect of other systemic antibiotics, initial encounter; R18.8 Other ascites; F31.9 Bipolar disorder, unspecified; R16.1 Splenomegaly, not elsewhere classified; E06.3 Autoimmune thyroiditis; Z79.4 Long term (current) use of insulin; N17.9 Acute kidney failure, unspecified
CPT/HCPCS: 36415; 49083; 73562; 73723; 74160; 76770; 80048; 80053; 80069; 80076; 80156; 80202; 81002; 82140; 82570; 82945; 82962; 83036; 83605; 83615; 83735; 84100; 84157; 84300; 84443; 85025; 85610; 85730; 87015; 87070; 87075; 87077; 87102; 87116; 87186; 87205; 87206; 89050; 93005; 93971; 97116; 97162; 97165; 97530; 97535; 97802; A9575; J7030; J7040; J7050; J7120; P9047; Q9967; A4216; J2405

== ENCOUNTER 2021-02-15 10:16 | Inpatient (IN) | payer MEDICARE, MEDICAID, SELFPAY ==
[2019-11-07 06:31] VITALS: BMI 27.5
[2021-02-15] VITALS (26 sets, daily range): BP systolic 105–158; BP diastolic 55–87; PULSE 78–102; RESP 20–30; TEMP 37.6–40; O2SAT 96–100; BMI 27.4; BMI 27.7
--- NOTE | 2021-02-15 10:20 | EKG12_ITS ---
Test Reason : UNRESPONSIVE Blood Pressure : / mmHG Vent. Rate : 106 BPM Atrial Rate : 106 BPM P-R Int : 160 ms QRS Dur : 100 ms QT Int : 360 ms P-R-T Axes : 037 -41 087 degrees QTc Int : 478 ms Sinus tachycardia Left axis deviation Left ventricular hypertrophy Nonspecific ST and T wave abnormality Abnormal ECG Confirmed by PAM ZAMBRANO, RANCHO ([id number]), city editor NORA MENDES ([id number]) on 02/17/2021 12:42:05 PM Referred By: TORY Confirmed By:RANCHO OROZCO MD
--- NOTE | 2021-02-15 10:30 | ED.VIS.GEN ---
History of Present Illness Chief Complaint: Unresponsive Informant: Significant Other, Communications Project Lead Limited by: Coma Onset: Yesterday Narrative: Patient is a 50-year-old female with extensive medical history including hepatic encephalopathy, bipolar disorder, schizoaffective disorder, autoimmune hepatitis, Reilly's thyroiditis and diabetes mellitus presenting with altered mental status. Last night patient's thought she was sleeping in bed and that she is sleeping well but she was minimally responsive. When she woke up when he woke up and realized moved all night he called 911. Patient is responsive only to painful stimuli per EMS. Patient was febrile for EMS, 102.0 F. No other history is available. Past Medical History - Allergies and Home Meds Allergies/Adverse Reactions: Allergies adhesive Allergy (Verified 02/15/21 10:56) Rash escitalopram oxalate [From Lexapro] Allergy (Verified 02/15/21 10:56) blindness gabapentin [From Neurontin] Allergy (Verified 02/15/21 10:56) Alan Jez's Syndrome lamotrigine [From Lamictal] Allergy (Verified 02/15/21 10:56) Blindness Preservatives Allergy (Uncoded 01/09/19 07:10) passed out, lungs deflated Preservatives in various foods including packaged gladys cheese, lettuce, and seafood. sour cream Allergy (Uncoded 01/09/19 07:10) Anaphylaxis Primary Care Physician: Janay Canchola MD [Primary Care Provider] - Past Medical History: - - hepatic encephalopathy, bipolar disorder, schizoaffective disorder, autoimmune hepatitis, Reilly's thyroiditis and diabetes mellitus Surgical History: - - Appendectomy, cholecystectomy, partial hysterectomy. Smoking Status: Never smoker - Family History Paternal Family History: Reports: - - father with heart attacks and strokes Sibling Family History: Reports: Hypertension, - - Her sister had hyperthyroidism Maternal Family History: Reports: Heart Disease - Her grandmother had heart failure, - - She reported her mother had low blood pressure Review of Systems ROS: Unable to Obtain - AMS General: Reports: Fever, Sweats Physical Exam Inital Vital Signs reviewed: Yes General: Well nourished, Well developed, No Acute Distress Head: Normocephalic, Atraumatic Eyes: Perrl, - - She does not follow commands to check EOMI ENT: No rhinorrhea, TM's clear, Dry mucous membranes Neck: Supple, Nontender Cardiovascular: Regular rate, Regular rhythm, No murmurs Respiratory: No distress, Chest nontender, - - Coarse breath sounds throughout Abdomen: Soft, Nontender, Nondistended, Normal bowel sounds Back: Nontender, Normal Inspection Extremities: Nontender, No edema Skin: Normal color, No rash, - - Scattered scabbed over areas on arms consistent with skin picking, no cellulitic changes. Negative for: Trauma Neurological: Coma, - - Focal neurologic deficits but neurologic exam is difficult secondary to patient's mental status change. Responds only to painful stimuli. No verbal response. No blinking. Diagnostic/Tx/Re-eval Chest X-Ray - ED: 1 View, Read by ED Physician, Read by Radiologist, No Acute Disease Clinical Impression(s) from Imaging Studies Chest X-Ray 02/15/21 11:00 IMPRESSION: Borderline cardiomegaly. The lungs are clear. Electronically Signed: Dash Shin MD at 11:19 EDT , Service support , Brain CT 02/15/21 11:16 IMPRESSION: Normal unenhanced CT scan of the brain. Electronically Signed: Dash Shin MD at 12:19 EDT , Service support , Laboratory Data 02/15/21 02/15/21 02/15/21 10:40 10:45 10:45 WBC 5.7 RBC 3.31 L Hgb 10.4 L Hct 30.4 L MCV 91.8 MCH 31.4 MCHC 34.2 RDW Std Deviation 42.9 RDW Coeff of Valentina 13.0 Plt Count 76 L MPV 12.2 H Immature Gran % (Auto) 0.400 Neut % (Auto) 92.3 H Lymph % (Auto) 1.8 L [place] % (Auto) 5.3 Eos % (Auto) 0.0 Baso % (Auto) 0.2 Absolute Neuts (auto) 5.3 Absolute Lymphs (auto) 0.10 L Nucleated RBC % 0 Differential Comment SCANNED Platelet Estimate MOD DEC PT INR APTT Specimen Type VBG pH VBG pO2 VBG HCO3 VBG Total CO2 VBG O2 Sat (Calc) VBG Base Excess POC Mix VBG pCO2 Pt Tmp Sodium 138 Potassium 3.6 Chloride 108 H Carbon Dioxide 23.0 Anion Gap 7 BUN 23 H Creatinine 1.50 H Estim Creat Clear Calc 44.26 Est GFR (MDRD) Af Amer 47 L Est GFR (MDRD) Non-Af 39 L BUN/Creatinine Ratio 15.3 Glucose 215 H Lactic Acid Calcium 8.3 L Total Bilirubin 1.60 H AST 62 H ALT 35 Alkaline Phosphatase 194 H Ammonia Total Creatine Kinase 137 Troponin I 0.026 Total Protein 7.8 Albumin 2.6 L Globulin 5.2 H Albumin/Globulin Ratio 0.5 L TSH 0.74 Urine Color Yellow Urine Clarity Sl. Cloudy Urine pH 6.0 Ur Specific [place] 1.010 Urine Protein 100 H Urine Glucose (UA) 100 H Urine Ketones 5 H Urine Occult Blood 250 H Urine Nitrite Positive H Urine Bilirubin 1 H Urine Urobilinogen 4 H Ur Leukocyte Esterase 500 H Urine RBC 0 SEEN Urine WBC 25-50 SEEN Ur Squamous Epith Cells 0 SEEN Amorphous Sediment 1+ Urine Bacteria 0 SEEN Urine Mucus 0 SEEN 02/15/21 02/15/21 02/15/21 10:45 10:45 10:45 WBC RBC Hgb Hct MCV MCH MCHC RDW Std Deviation RDW Coeff of Valentina Plt Count MPV Immature Gran % (Auto) Neut % (Auto) Lymph % (Auto) [place] % (Auto) Eos % (Auto) Baso % (Auto) Absolute Neuts (auto) Absolute Lymphs (auto) Nucleated RBC % Differential Comment Platelet Estimate PT 16.5 H INR 1.4 APTT 33.8 Specimen Type VBG pH VBG pO2 VBG HCO3 VBG Total CO2 VBG O2 Sat (Calc) VBG Base Excess POC Mix VBG pCO2 Pt Tmp Sodium Potassium Chloride Carbon Dioxide Anion Gap BUN Creatinine Estim Creat Clear Calc Est GFR (MDRD) Af Amer Est GFR (MDRD) Non-Af BUN/Creatinine Ratio Glucose Lactic Acid 2.7 H* Calcium Total Bilirubin AST ALT Alkaline Phosphatase Ammonia 60.0 H Total Creatine Kinase Troponin I Total Protein Albumin Globulin Albumin/Globulin Ratio TSH Urine Color Urine Clarity Urine pH Ur Specific [place] Urine Protein Urine Glucose (UA) Urine Ketones Urine Occult Blood Urine Nitrite Urine Bilirubin Urine Urobilinogen Ur Leukocyte Esterase Urine RBC Urine WBC Ur Squamous Epith Cells Amorphous Sediment Urine Bacteria Urine Mucus 02/15/21 11:07 WBC RBC Hgb Hct MCV MCH MCHC RDW Std Deviation RDW Coeff of Valentina Plt Count MPV Immature Gran % (Auto) Neut % (Auto) Lymph % (Auto) [place] % (Auto) Eos % (Auto) Baso % (Auto) Absolute Neuts (auto) Absolute Lymphs (auto) Nucleated RBC % Differential Comment Platelet Estimate PT INR APTT Specimen Type KAREN VBG pH 7.44 H VBG pO2 34 VBG HCO3 22 VBG Total CO2 23 VBG O2 Sat (Calc) 68 VBG Base Excess -3 L POC Mix VBG pCO2 Pt Tmp 31.5 L Sodium Potassium Chloride Carbon Dioxide Anion Gap BUN Creatinine Estim Creat Clear Calc Est GFR (MDRD) Af Amer Est GFR (MDRD) Non-Af BUN/Creatinine Ratio Glucose Lactic Acid Calcium Total Bilirubin AST ALT Alkaline Phosphatase Ammonia Total Creatine Kinase Troponin I Total Protein Albumin Globulin Albumin/Globulin Ratio TSH Urine Color Urine Clarity Urine pH Ur Specific [place] Urine Protein Urine Glucose (UA) Urine Ketones Urine Occult Blood Urine Nitrite Urine Bilirubin Urine Urobilinogen Ur Leukocyte Esterase Urine RBC Urine WBC Ur Squamous Epith Cells Amorphous Sediment Urine Bacteria Urine Mucus - Rhythm Strip Rhythm Strip: Sinus Tach Rate: 106 Ectopy: None - EKG Initial EKG Interpretation: Sinus Tachycardia, - - Tachycardia at a rate of 106 Left axis deviation LVH T wave inversions in aVL Interpreted by emergency medicine physician T wave inversions new in 1 and aVL Prior: Changed - Medical Decision Making Patient evaluated for mental status change and fever. Patient is minimally responsive and on obtunded in the ER. She is currently protecting her airway and her vital signs are stable. She is not hypoxic. Concern for sepsis versus hepatic encephalopathy in the differential. Head CT is obtained which does not show any acute intracranial process. Patient does have a history of hepatic encephalopathy however her ammonia is 60 today. I do not think that explains her presentation. Urinalysis is consistent with UTI. Patient is placed on IV Rocephin and culture sent. Her lactate is elevated 2.7. She is not meets criteria for septic shock. Patient is given IV fluids in the emergency room. She is given rectal Tylenol which is improve her tachycardia and fever. Patient does have a mild elevation of her creatinine of 1.5. It looks like her baseline is closer to 1 a couple years ago however on her last hospitalization her creatinine was 4. Patient be admitted to the ICU. On reevaluation she does have some mild improvement of her mentation. No focal neurologic deficits on exam. - Critical Care Time Critical care time (excluding procedures): 30-74 minutes - 35-patient is critically ill with severe sepsis and associated encephalopathy. Required frequent reevaluation. Admitted to the ICU., Arranging Admission or Transfer ED Disposition - Plan for ED Patient: Disposition: Acute Care Hospital [facility] Diagnosis: JULIANNE (acute kidney injury), Acute UTI, Severe sepsis, Encephalopathy acute Referrals: Janay Canchola MD [Primary Care Provider] -
[2021-02-15] MEDS: 0.9% Normal Saline 1,000 ML 999 ML IV (10:55)
[2021-02-15] MEDS: Acetaminophen 650 MG Suppository RC (10:56)
--- NOTE | 2021-02-15 11:00 | RAD_ITS ---
STUDY: X-RAY CHEST REASON FOR EXAM: Female, 50 years old. AMS, fever TECHNIQUE: Single AP portable view of the chest. COMPARISON: Comparison is made with prior study dated 08/19/2018. FINDINGS: EKG electrodes are seen. The lungs are clear and expanded. There is no demonstrated pleural abnormality. There is borderline cardiomegaly. Normal mediastinum and sonny. Normal visualized pulmonary arteries. Normal visualized aortic arch and descending thoracic aorta. Normal visualized thoracic spine. Normal visualized ribs, clavicles, and shoulders. A stent is seen within the common bile duct. RAD/Chest 1 View (Portable) IMPRESSION: Borderline cardiomegaly. The lungs are clear. Electronically Signed: Dash Shin MD at 11:19 EDT , Service support ,
[2021-02-15 11:07] LABS: Bacteria 0 SEEN /hpf (None Seen); Color, Urine Yellow (Yellow); Glucose, Dipstick 100 mg/dl (Normal); Ketone-Dipstick 5 mg/dl (Negative); Leukocyte Esterase-Dipstick 500 /ul (Negative); Mucous, Urine 0 SEEN /hpf (<or=2+); Nitrite-Dipstick Positive (Negative); Occult Blood-Urine 250 /ul (Negative); Protein-Dipstick 100 mg/dl (Negative); Red Blood Cells-Urine 0 SEEN /hpf (0-5); Squamous Epithelial Cells - UA 0 SEEN /hpf (5-10); Urine Clarity Sl. Cloudy (Clear); Urine Urobilinogen 4 mg/dl (Normal)
[2021-02-15 11:07] LABS: Absolute Neutrophil Count 5.3 X10^3/uL (2.0-7.7); Basophil# 0.01 X10^3/uL; Basophil% 0.2 % (0-1); Hematocrit 30.4 % (37-47); Hemoglobin 10.4 g/dL (12.0-15.0); Lymphocyte % 1.8 % (19-41); Mean Corp Hgb Conc 34.2 g/dL (32-36); Mean Corpuscular Hgb 31.4 pg (27.0-32.0); Mean Corpuscular Volume 91.8 fL (81-99); Mean Platelet Vol. 12.2 fl (6.2-12.0); Monocyte% 5.3 % (0-10); NRBC Flagged by Analyzer 0 % (0-5); Neutrophil # 5.28 X10^3/uL (2.7-7.7); Neutrophil % 92.3 % (47-70); POSITIVE COUNT YES; POSITIVE DIFFERENTIAL YES; Platelet Count 76 K/mm3 (150-450); RBC Distribution Width SD 42.9 fl (35.1-43.9); Red Blood Count 3.31 M/mm3 (4.2-5.4); White Blood Count 5.7 K/mm3 (4.4-11.0)
[2021-02-15 11:10] LABS: Urine Bilirubin Dipstick 1 mg/dL (Negative)
[2021-02-15 11:11] LABS: Differential Indicated SCAN CRITERIA MET
[2021-02-15 11:13] LABS: Amorphous Sediment 1+; White Blood Cells 25-50 SEEN /hpf (0-5)
[2021-02-15 11:15] LABS: Blood Gas Specimen Type VEN; VBG BASE EXCESS -3 mmol/L (-1.0-3.5); VBG Bicarbonate 22 mmol/L (22-26); VBG PO2 34 mmHg (25-40); VBG SO2 68 % (50-70); VBG TCO2 23 mmol/L (23-33); VBG pCO2 31.5 mmHg (41-51); VBG pH 7.44 (7.32-7.42)
[2021-02-15 11:16] LABS: International Normalized Ratio 1.4; Prothrombin Time (Protime)PT. 16.5 SECONDS (11.7-14.9)
--- NOTE | 2021-02-15 11:16 | CT_ITS ---
STUDY: CT BRAIN WITHOUT CONTRAST REASON FOR EXAM: Female, 50 years old. AMS. Unresponsive, fever and encephalopathy. RADIATION DOSAGE (If Supplied By Facility): CTDIvol = ( 44.99 ) mGy, DLP = ( 762.36 ) mGycm TECHNIQUE: Transaxial CT imaging of the brain was performed without administration of intravenous contrast material. Individualized dose optimization techniques were used for this CT. COMPARISON: Comparison is made with prior study dated 08/19/2008. FINDINGS: Normal soft tissue structures. Normal calvarium. Normal size ventricles and extra-axial spaces for the patient''s age. Normal white matter tracts of the cerebral hemispheres. Normal basal ganglia and thalami. Normal brainstem. Normal cerebellum. There is no intracranial hemorrhage. There are no findings of an acute ischemic infarction. Normal visualized paranasal sinuses. CT/Brain/Head without Contrast IMPRESSION: Normal unenhanced CT scan of the brain. Electronically Signed: Dash Shin MD at 12:19 EDT , Service support ,
[2021-02-15 11:17] LABS: Partial Thromboplast Time 33.8 Seconds (24.1-36.2)
[2021-02-15 11:29] LABS: Differential Comment SCANNED; Platelet Estimate MOD DEC (ADEQ)
[2021-02-15 11:30] LABS: ALB/GLOB Ratio 0.5 RATIO (0.9-2.4); AST(SGOT) 62 U/L (15-37); Alanine Aminotransfer ALT/SGPT 35 U/L (13-56); Albumin, Serum 2.6 g/dL (3.2-5.0); Alkaline Phosphatase 194 U/L (45-117); Anion Gap 7 (5-15); BUN 23 mg/dL (7-18); BUN/Creat Ratio 15.3 RATIO (10-20); CPK Total, Creatine Kinase 137 U/L (26-192); Calcium,Total 8.3 mg/dL (8.5-10.1); Chloride 108 mmol/L (98-107); EST Glomerular Filtration Rate 39 mL/min (>60); Est Glom Filt Rate - Afr Amer 47 mL/min (>60); Estimated Creatinine Clearance 44.26 ml/min; Globulin 5.2 g/dL (2.2-4.2); Glucose 215 mg/dL (74-106); Potassium 3.6 mmol/L (3.5-5.1); Protein, Total 7.8 g/dL (6.4-8.2); Sodium Level 138 mmol/L (136-145); Thyroid Stim Hormone (TSH) 0.74 uIU/mL (0.358-3.74)
[2021-02-15 11:56] LABS: Lactic Acid 2.7 mmol/L (0.4-1.9)
--- NOTE | 2021-02-15 12:05 | NURSING ---
DR RAMAN FOR DR GARRETT
--- NOTE | 2021-02-15 12:06 | NURSING ---
ICU PAINTSIL UTI WITH ENCEPHALOPATHY, SEPSIS
[2021-02-15] MEDS: Ceftriaxone 1 GM/50 ML BAG IV (12:27)
--- NOTE | 2021-02-15 13:44 | HP.PCM_ITS ---
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 Diabetes mellitus complication status: with neurologic complications Diabetes mellitus complication detail: with unspecified neuropathy Qualified Code(s): E11.40 - Type 2 diabetes mellitus with diabetic neuropathy, unspecified; Z79.4 - long-term (current) use of insulin (6) Liver cirrhosis Status: Chronic (7) Schizoaffective disorder Status: Chronic Qualifiers: Schizoaffective disorder type: depressive Qualified Code(s): F25.1 - Schizoaffective disorder, depressive type (8) Bipolar disorder Status: Chronic Qualifiers: Active/Remission status: remission status unspecified History of Present Illness Date of Admission: 02/15/21 Chief Complaint: Altered mental status The patient is a 50 year old F with past medical history of autoimmune hepatitis, cirrhosis of the liver with varices, type II DM who comes in with unresponsiveness and fever. Patient was found to be sleepy yesterday but was unresponsive today. She was also found to have a fever. Attempt at calling significant other for more history was unremarkable. Patient arousable but goes back to sleep easily. Patient's vital signs in the ED showed low-grade fevers. She however spiked a fever of 104.0F, heart rate was 102, blood pressure 147/73, respiratory chest 30, SPO2 was 97% on room air. WBC count was 5.7, hemoglobin 10.4, platelet count 76, is close to her baseline. VBG showed pH of 7.44, PCO2 was 23, PO2 of 68. Her sodium was 138, potassium 3.3, chloride 108, bicarbonate 23, BUN 23, creatinine 1.50, glucose 215, lactic acid 2.7, total bili 1.6, AST 62, ALT T 35, ALP 194, ammonia 60, CK 137, troponins are negative, TSH 0.74. Past Medical History Past Medical History (Chronic Problems): Chronic Problems Autoimmune hepatitis (Chronic) Diabetes mellitus (Chronic) Liver cirrhosis (Chronic) Reilly thyroiditis (Chronic) Autoimmune hepatitis (Chronic) Schizoaffective disorder (Chronic) Bipolar disorder (Chronic) Splenomegaly (Chronic) Allergies adhesive Allergy (Verified 02/15/21 10:56) Rash escitalopram oxalate [From Lexapro] Allergy (Verified 02/15/21 10:56) blindness gabapentin [From Neurontin] Allergy (Verified 02/15/21 10:56) Alan Jez's Syndrome lamotrigine [From Lamictal] Allergy (Verified 02/15/21 10:56) Blindness Preservatives Allergy (Uncoded 01/09/19 07:10) passed out, lungs deflated Preservatives in various foods including packaged gladys cheese, lettuce, and seafood. sour cream Allergy (Uncoded 01/09/19 07:10) Anaphylaxis Home Medications: Ambulatory Orders Medication Instructions Recorded Potassium Chloride [Klor-Con M20] 20 meq PO BID 09/25/15 Albuterol Inhaler [Ventolin Hfa] 2 puff INHALATION Q4H PRN PRN 02/16/16 Furosemide [Lasix] 20 mg PO DAILY 03/14/17 Insulin Lispro [Humalog] 12 units SC ACHS 03/14/17 Magnesium Oxide [Magnesium] 400 mg PO BID 03/14/17 Spironolactone [Aldactone] 100 mg PO DAILY 04/28/17 traMADol [Ultram] 50 mg PO Q6H PRN PRN 04/28/17 Sennosides/Docusate Sodium [Senna 1 each PO DAILY PRN 04/29/17 Plus Tablet] Fluvoxamine Maleate [Luvox] 100 mg PO QHS 11/04/17 Rifaximin [Xifaxan] 550 mg PO BID 11/04/17 Ursodiol [Actigall] 300 mg PO BID 11/04/17 Carbamazepine [Carbatrol] 100 mg PO BID 08/19/18 Cholecalciferol (Vitamin D3) 50,000 unit PO SA 08/19/18 [Vitamin D3] Dicyclomine HCl [Bentyl] 10 mg PO ACHS 08/19/18 Fluticasone Propionate [Flonase 15.8 ml NS BID PRN 08/19/18 Allergy Relief] Sucralfate [Carafate] 1 gm PO ACHS 08/19/18 Omeprazole [Prilosec] 40 mg PO DAILY #0 08/20/18 Baclofen 10 mg PO QHS 01/09/19 Lactulose [Chronulac] 20 gm PO TID 01/09/19 Insulin Degludec [Tresiba 20 unit SQ DAILY #0 01/10/19 Flextouch U-100] Pregabalin [Lyrica] 50 mg PO BID 11/06/19 Insulin Lispro [Humalog KwikPen] See Protocol [facility] 02/15/21 Surgical History: - - Appendectomy, cholecystectomy, partial hysterectomy. 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 Lives: Spouse/ Significant Other Smoking Status: Never smoker - *Family History Paternal History Items: - - father with heart attacks and strokes Sibling History Items: Hypertension, - - Her sister had hyperthyroidism Maternal History Items: Heart Disease - Her grandmother had heart failure, - - She reported her mother had low blood pressure Review of Systems Unable to obtain accurate/complete ROS d/t: Patient is lethargic VTE Information - Inpt Only VTE Present on Admission: No VTE Pharm Prophylaxis ordered?: Yes Patient Problems: Active and Suspected Problems Hepatic encephalopathy (Acute) JULIANNE (acute kidney injury) (Acute) Acute UTI (Acute) Severe sepsis (Acute) Encephalopathy acute (Acute) - Physical Exam Vitals/I&O's: Vital Signs Temp Pulse Resp BP Pulse Ox 102.4 F H 87 23 H 132/66 H 99 02/15/21 12:14 02/15/21 12:14 02/15/21 12:14 02/15/21 12:14 02/15/21 12:14 Oxygen Delivery Method Room Air Weight: 81.8 kg Body Mass Index (BMI) 27.4 Finger Stick Blood Glucose 217 Intake and Output for Last 24 Hours 02/13/21 02/14/21 02/15/21 23:59 23:59 23:59 Intake Total 1000 / 1000 Balance 1000 / 1000 General: Cooperative, No apparent distress, Lethargic HEENT: Atraumatic, PERRLA, EOMI, Normocephalic Oral: Moist Mucosa Neck: Supple Lungs: Clear to auscultation, Normal air movement Cardiovascular: Regular rate, Regular Rhythm, Normal S1, Normal S2, No murmurs Abdomen: Bowel Sounds Present, Soft, Non Tender, Non-Distended, No Hepato- splenomegaly Extremities: No edema, Capillary Refill Less than 3 Seconds Skin: No rashes, No breakdown Musculoskeletal: No Tenderness to Palpation of Joints or Extremities Lymphatic: No Cervical, Supraclavicular, or Inguinal Adenopathy Neurological: Cranial nerves II-XII grossly intact, Neuro grossly intact Psych/Mental Status: Normal Affect, Appropriate Microbiology Past 72 Hours 02/15/21 10:45 Mucosa - Nose SARS-CoV-2 Antigen (Rapid) - Final Laboratory Results 02/15/21 10:40: Urine Color Yellow, Urine Clarity Sl. Cloudy, Urine pH 6.0, Ur Specific [place] 1.010, Urine Protein 100 H, Urine Glucose (UA) 100 H, Urine Ketones 5 H, Urine Occult Blood 250 H, Urine Nitrite Positive H, Urine Bilirubin 1 H, Urine Urobilinogen 4 H, Ur Leukocyte Esterase 500 H, Urine RBC 0 SEEN, Urine WBC 25-50 SEEN, Ur Squamous Epith Cells 0 SEEN, Amorphous Sediment 1+, Urine Bacteria 0 SEEN, Urine Mucus 0 SEEN 02/15/21 10:45: Sodium 138, Potassium 3.6, Chloride 108 H, Carbon Dioxide 23.0, Anion Gap 7, BUN 23 H, Creatinine 1.50 H, Estim Creat Clear Calc 44.26, Est GFR (MDRD) Af Amer 47 L, Est GFR (MDRD) Non-Af 39 L, BUN/Creatinine Ratio 15.3, Glucose 215 H, Calcium 8.3 L, Total Bilirubin 1.60 H, AST 62 H, ALT 35, Alkaline Phosphatase 194 H, Total Creatine Kinase 137, Troponin I 0.026, Total Protein 7.8, Albumin 2.6 L, Globulin 5.2 H, Albumin/Globulin Ratio 0.5 L, TSH 0.74 02/15/21 10:45: WBC 5.7, RBC 3.31 L, Hgb 10.4 L, Hct 30.4 L, MCV 91.8, MCH 31.4, MCHC 34.2, RDW Std Deviation 42.9, RDW Coeff of Valentina 13.0, Plt Count 76 L, MPV 12.2 H, Immature Gran % (Auto) 0.400, Neut % (Auto) 92.3 H, Lymph % (Auto) 1.8 L , [place] % (Auto) 5.3, Eos % (Auto) 0.0, Baso % (Auto) 0.2, Absolute Neuts (auto) 5.3, Absolute Lymphs (auto) 0.10 L, Nucleated RBC % 0, Differential Comment SCANNED, Platelet Estimate MOD 02/15/21 10:45: PT 16.5 H, INR 1.4, APTT 33.8 02/15/21 10:45: Ammonia 60.0 H 02/15/21 10:45: Lactic Acid 2.7 H* 02/15/21 11:07: Specimen Type KAREN, VBG pH 7.44 H, VBG pO2 34, VBG HCO3 22, VBG Total CO2 23, VBG O2 Sat (Calc) 68, VBG Base Excess -3 L, POC Mix VBG pCO2 Pt Tmp 31.5 L Assessment/Plan All Active Problems Hepatic encephalopathy (Acute) Cellulitis (Acute) JULIANNE (acute kidney injury) (Acute) Acute UTI (Acute) Severe sepsis (Acute) Encephalopathy acute (Acute) 1. Acute metabolic encephalopathy due to acute UTI versus polypharmacy/multiple sedative medication side effect Hold all sedative continue to monitor mentation 2. Severe sepsis secondary to acute UTI, patient's admitting lactic acid was 2.7, Started on IV ceftriaxone; continue on IV Zosyn Repeat lactic acid per protocol, continue on IV fluids 3. Acute hepatic encephalopathy, patient with autoimmune hepatitis, cirrhosis of the liver with varices Admitting ammonia is 60 We will continue lactulose, rifaximin, will hold spironolactone 4. Type II DM, hold home insulin, continue to monitor on blood glucose checks 5. CKD stage III, remains close to baseline Repeat blood work in am 6. DVT PPx- Heparin Sc Inpatient E&M: 22892 Init Hosp L3
[2021-02-15 14:11] LABS: Bedside Glucose 223 mg/dL (70-110)
[2021-02-15] MEDS: 0.9% Normal Saline 1,000 ML 150 ML IV ×2 (14:15→20:52)
--- NOTE | 2021-02-15 14:56 | CON.PCM_ITS ---
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 Patient reportedly was noted by her to be unresponsive this morning, so 911 was called. EMS had reported the patient was responsive only to painful stimuli. Patient was noted to have a fever of 102 ?F per EMS. Unfortunately, additional information is not available at this time. In the ER, patient was noted to be minimally responsive, but protecting her airway with stable vitals. Patient was nonhypoxic. A CT of the head showed no acute injury or acute intracranial process. Ammonia was elevated at 60 and UA was consistent with a UTI. Patient was given IV Rocephin and culture was sent. Lactate was elevated at 2.7, but patient did not receive a full 30 cc/kg fluid bolus secondary to electro criteria for septic shock. Patient did receive some rectal Tylenol with some improvement in fever and tachycardia. Venous blood gas showed no significant acidosis. INR was slightly elevated at 1.4, total bili was elevated at 1.6 with an alk phos of 194. Patient was anemic at 10.4. In the ER, patient will open her eyes to voice and follows some commands. Patient is not able to provide additional history at this time. Patient was able to pass a bedside swallow evaluation. No hemodynamic instability has been noted, but patient is starting to have a fever again. Unable to obtain a review of systems secondary to mental status Past Medical History Past Medical History (Chronic Problems): Chronic Problems Autoimmune hepatitis (Chronic) Diabetes mellitus (Chronic) Liver cirrhosis (Chronic) Reilly thyroiditis (Chronic) Autoimmune hepatitis (Chronic) Schizoaffective disorder (Chronic) Bipolar disorder (Chronic) Splenomegaly (Chronic) Allergies adhesive Allergy (Verified 02/15/21 10:56) Rash escitalopram oxalate [From Lexapro] Allergy (Verified 02/15/21 10:56) blindness gabapentin [From Neurontin] Allergy (Verified 02/15/21 10:56) Alan Jez's Syndrome lamotrigine [From Lamictal] Allergy (Verified 02/15/21 10:56) Blindness Preservatives Allergy (Uncoded 01/09/19 07:10) passed out, lungs deflated Preservatives in various foods including packaged gladys cheese, lettuce, and seafood. sour cream Allergy (Uncoded 01/09/19 07:10) Anaphylaxis Home Medications: Ambulatory Orders Medication Instructions Recorded Potassium Chloride [Klor-Con M20] 20 meq PO BID 09/25/15 Albuterol Inhaler [Ventolin Hfa] 2 puff INHALATION Q4H PRN PRN 02/16/16 Furosemide [Lasix] 20 mg PO DAILY 03/14/17 Insulin Lispro [Humalog] [address] [facility] 03/14/17 Magnesium Oxide [Magnesium] 400 mg PO BID 03/14/17 Spironolactone [Aldactone] 100 mg PO DAILY 04/28/17 traMADol [Ultram] 50 mg PO Q6H PRN PRN 04/28/17 Sennosides/Docusate Sodium [Senna 1 each PO DAILY PRN 04/29/17 Plus Tablet] Fluvoxamine Maleate [Luvox] 100 mg PO QHS 11/04/17 Rifaximin [Xifaxan] 550 mg PO BID 11/04/17 Ursodiol [Actigall] 300 mg PO BID 11/04/17 Carbamazepine [Carbatrol] 100 mg PO BID 08/19/18 Cholecalciferol (Vitamin D3) 50,000 unit PO SA 08/19/18 [Vitamin D3] Dicyclomine HCl [Bentyl] 10 mg PO ACHS 08/19/18 Fluticasone Propionate [Flonase 15.8 ml NS BID PRN 08/19/18 Allergy Relief] Sucralfate [Carafate] 1 gm PO ACHS 08/19/18 Omeprazole [Prilosec] 40 mg PO DAILY #0 08/20/18 Baclofen 10 mg PO QHS 01/09/19 Lactulose [Chronulac] 20 gm PO TID 01/09/19 Insulin Degludec [Tresiba 20 unit SQ DAILY #0 01/10/19 Flextouch U-100] Pregabalin [Lyrica] 50 mg PO BID 11/06/19 Insulin Lispro [Humalog KwikPen] See Protocol [facility] 02/15/21 Surgical History: - - Appendectomy, cholecystectomy, partial hysterectomy. 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 Chest x-ray shows no infiltrates, but appears to have a TIPS shunt. - Physical Exam Vitals/I&O's: Vital Signs Temp Pulse Resp BP Pulse Ox 39.1 C H 87 23 H 132/66 H 98 02/15/21 12:14 02/15/21 12:14 02/15/21 12:14 02/15/21 12:14 02/15/21 14:36 Oxygen Delivery Method Room Air Weight: 81.8 kg Body Mass Index (BMI) 27.4 Finger Stick Blood Glucose 217 Intake and Output for Last 24 Hours 02/13/21 02/14/21 02/15/21 23:59 23:59 23:59 Intake Total 1000 / 1000 Balance 1000 / 1000 General: Confused, Disoriented, Lethargic, - - Appears older than stated age. Ashen appearance HEENT: Atraumatic, PERRLA, EOMI, Normocephalic, - - Slight scleral injection without icterus Oral: No Gingival or Mucosal Lesions/ Ulcerations, Dry Mucosa Neck: No Nodes, Trachea Midline, JVD, Right Lungs: Clear to auscultation, Normal air movement, No rhonchi, No wheeze, No rales, - - Fair effort Cardiovascular: Regular rate, Regular Rhythm, Normal S1, Normal S2, No murmurs, No rub noted, No Gallop Abdomen: Bowel Sounds Present, Soft, Non Tender, Non-Distended, Obese, - - No rebound or guarding noted. No fluid wave notable Extremities: No clubbing, No cyanosis, Edema - Trace to 1+ lower extremity Skin: Ulcer/ Wound - Multiple superficial ulcers without surrounding erythema or striations Musculoskeletal: No Tenderness to Palpation of Joints or Extremities Lymphatic: No Cervical, Supraclavicular, or Inguinal Adenopathy Neurological: - - Nonfocal neurologic exam. Moves both sides equally, but slow to respond. Psych/Mental Status: Flat Affect Microbiology Past 72 Hours 02/15/21 10:45 Mucosa - Nose SARS-CoV-2 Antigen (Rapid) - Final Laboratory Results 02/15/21 10:40: Urine Color Yellow, Urine Clarity Sl. Cloudy, Urine pH 6.0, Ur Specific [place] 1.010, Urine Protein 100 H, Urine Glucose (UA) 100 H, Urine Ketones 5 H, Urine Occult Blood 250 H, Urine Nitrite Positive H, Urine Bilirubin 1 H, Urine Urobilinogen 4 H, Ur Leukocyte Esterase 500 H, Urine RBC 0 SEEN, Urine WBC 25-50 SEEN, Ur Squamous Epith Cells 0 SEEN, Amorphous Sediment 1+, Urine Bacteria 0 SEEN, Urine Mucus 0 SEEN 02/15/21 10:45: Sodium 138, Potassium 3.6, Chloride 108 H, Carbon Dioxide 23.0, Anion Gap 7, BUN 23 H, Creatinine 1.50 H, Estim Creat Clear Calc 44.26, Est GFR (MDRD) Af Amer 47 L, Est GFR (MDRD) Non-Af 39 L, BUN/Creatinine Ratio 15.3, Glucose 215 H, Calcium 8.3 L, Total Bilirubin 1.60 H, AST 62 H, ALT 35, Alkaline Phosphatase 194 H, Total Creatine Kinase 137, Troponin I 0.026, Total Protein 7.8, Albumin 2.6 L, Globulin 5.2 H, Albumin/Globulin Ratio 0.5 L, TSH 0.74 02/15/21 10:45: WBC 5.7, RBC 3.31 L, Hgb 10.4 L, Hct 30.4 L, MCV 91.8, MCH 31.4, MCHC 34.2, RDW Std Deviation 42.9, RDW Coeff of Valentina 13.0, Plt Count 76 L, MPV 12.2 H, Immature Gran % (Auto) 0.400, Neut % (Auto) 92.3 H, Lymph % (Auto) 1.8 L , [place] % (Auto) 5.3, Eos % (Auto) 0.0, Baso % (Auto) 0.2, Absolute Neuts (auto) 5.3, Absolute Lymphs (auto) 0.10 L, Nucleated RBC % 0, Differential Comment SCANNED, Platelet Estimate MOD 02/15/21 10:45: PT 16.5 H, INR 1.4, APTT 33.8 02/15/21 10:45: Ammonia 60.0 H 02/15/21 10:45: Lactic Acid 2.7 H* 02/15/21 11:07: Specimen Type KAREN, VBG pH 7.44 H, VBG pO2 34, VBG HCO3 22, VBG Total CO2 23, VBG O2 Sat (Calc) 68, VBG Base Excess -3 L, POC Mix VBG pCO2 Pt Tmp 31.5 L 02/15/21 14:05: POC Glucose 223 H Current Medications Acetaminophen (Acetaminophen 325 Mg Tablet) 650 mg PO Q6H PRN PRN PRN Reason: Pain Score 1-10/Temp > 100.7 F Acetaminophen (Acetaminophen 650 Mg Suppository) 650 mg RC Q6H PRN PRN PRN Reason: FEVER Albuterol Sulfate (Albuterol 2.5 Mg/3 Ml Vial.Neb.) 2.5 mg INHALATION Q2H PRN PRN PRN Reason: SOB/Wheezing Docusate Sodium (Docusate Sodium 100 Mg Capsule) 100 mg PO BID PRN PRN PRN Reason: Constipation Heparin Sodium (Porcine) (Heparin Injection (Vial) 5,000 Unit/Ml Vial) 5,000 unit SC Q8 [facility] Sodium Chloride () 1,000 mls @ 150 mls/hr IV .Q6H40M [facility] Last Admin: 02/15/21 14:15 Dose: 150 mls/hr Documented by: Piperacillin Sod/Tazobactam (Sod 3.375 gm/ Sodium Chloride) 50 mls @ 12.5 mls/hr IV Q8 YONI Lactulose (Lactulose 20 Gm/30 Ml Udc) 20 gm GT TID YONI Oxycodone HCl (Oxycodone 5 Mg Tablet) 5 mg PO Q4H PRN PRN PRN Reason: Pain Score 4-10 Rifaximin (Rifaximin 550 Mg Tablet) 550 mg GT BID YONI Clinical Impression(s) from Imaging Studies Chest X-Ray 02/15/21 11:00 IMPRESSION: Borderline cardiomegaly. The lungs are clear. Electronically Signed: Dash Shin MD at 11:19 EDT , Service support , Brain CT 02/15/21 11:16 IMPRESSION: Normal unenhanced CT scan of the brain. Electronically Signed: Dash Shin MD at 12:19 EDT , Service support , Assessment/Plan Active and Suspected Problems JULIANNE (acute kidney injury) (Acute) Acute UTI (Acute) Severe sepsis (Acute) Encephalopathy acute (Acute) RECOMMENDATIONS: 1. Continue empiric antibiotics pending culture results 2. Initiate lactulose and rifaximin 3. Hold home medications such as Lyrica/baclofen 4. Possibly reinitiate diuretic therapy tomorrow 5. Sliding scale insulin only. IMPRESSIONS: 1. Acute hepatic encephalopathy secondary to severe sepsis secondary to UTI Patient with elevated ammonia. Patient was able to pass a bedside swallow evaluation, so we will proceed with lactulose and rifaximin. Patient has been placed empirically on antibiotics for probable UTI. Patient has remained hemodynamically stable, but would hold diuretic therapy for at least 24 hours pending stabilization of overall condition. Cannot exclude toxic metabolite accumulation given baclofen and Lyrica. Recheck lactate per sepsis protocol 2. CKD stage III secondary to type 2 diabetes mellitus Unclear baseline. Patient did have acute kidney injury in the past with a creatinine as high as 4.2. We will continue to support hemodynamics and monitor closely. Would hold on basal insulin for now. Sliding scale insulin should be sufficient pending improvement in mental status 3. Autoimmune hepatitis/cirrhosis Patient appears to have a TIPS shunt in place on chest x-ray. This cannot be confirmed at this time. We will continue with lactulose and rifaximin. Patient does not have significant elevation in hepatic enzymes. Would hold diuretic therapy for now. Patient does not appear to have a significant amount of ascites on my evaluation. Chest x-ray is not suggestive of a significant pleural effusion. 4. Poor history/schizoaffective disorder/bipolar disorder Complicates care, management, recovery and prognosis. Hold on sedating medications for now given mental status Inpatient E&M: 86310 Init Hosp L3
[2021-02-15 14:59] LABS: Reflex Lactate? Y
[2021-02-15 16:29] LABS: Lactic Acid 2.5 mmol/L (0.4-1.9)
[2021-02-15] MEDS: rifAXIMin 550 MG Tablet PO ×2 (16:41→20:30)
[2021-02-15] MEDS: Lactulose 20 GM/30 ML UDC PO ×2 (16:42→20:29)
--- NOTE | 2021-02-15 16:47 | NURSING ---
Dr. Fuller and Dr. Alfonso ordered a bedside swallow evaluation to be done by nursing at bedside. The pt passed the bedside swallow evaluation.
[2021-02-15 17:16] LABS: Bedside Glucose 225 mg/dL (70-110)
[2021-02-15] MEDS: Heparin Injection (Vial) 5,000 UNIT/ML VIAL 5000 UNIT SC ×2 (18:26→20:29)
[2021-02-15 19:16] LABS: Reflex Lactate? Y
[2021-02-15 21:33] LABS: Lactic Acid 3.9 mmol/L (0.4-1.9)
[2021-02-16] VITALS (17 sets, daily range): BP systolic 118–161; BP diastolic 60–89; PULSE 75–97; RESP 15–24; TEMP 36.4–38.7; O2SAT 97–100
[2021-02-16] MEDS: Acetaminophen 325 MG Tablet 650 MG PO ×3 (00:01→20:22)
[2021-02-16] MEDS: Insulin Lispro 100 UNIT/ML INSULN.PEN SC ×5 (00:03→20:31)
[2021-02-16 00:16] LABS: Bedside Glucose 250 mg/dL (70-110)
[2021-02-16 01:52] LABS: Lactic Acid 2.5 mmol/L (0.4-1.9)
--- NOTE | 2021-02-16 03:02 | PCM.RX.CS ---
Consult Pharmacy has been consulted to manage selected antiobiotic: Vancomycin Type of Consult: New start Suspected Infection: Sepsis Prior Doses of Antibiotics Received/Current Regimen: Medications Vancomycin HCl () 500 mg in 100 mls @ 100 mls/hr IV Q12H YONI Vancomycin HCl 1,250 mg/ (Sodium Chloride) 275 mls @ 167 mls/hr IV X1 ONE Stop: 02/16/21 04:08 Last Admin: 02/16/21 02:34 Dose: 167 mls/hr Labs: Sodium 138 mmol/L (136-145) 02/15/21 10:45 Potassium 3.6 mmol/L (3.5-5.1) 02/15/21 10:45 Chloride 108 mmol/L (98-107) H 02/15/21 10:45 Carbon Dioxide 23.0 mmol/L (21.0-32.0) 02/15/21 10:45 Anion Gap 7 (5-15) 02/15/21 10:45 BUN 23 mg/dL (7-18) H 02/15/21 10:45 Creatinine 1.50 mg/dL (0.55-1.02) H 02/15/21 10:45 Est GFR (MDRD) Af Amer 47 mL/min (>60) L 02/15/21 10:45 Est GFR (MDRD) Non-Af 39 mL/min (>60) L 02/15/21 10:45 BUN/Creatinine Ratio 15.3 RATIO (10-20) 02/15/21 10:45 Glucose 215 mg/dL (74-106) H 02/15/21 10:45 Microbiology: Microbiology 02/15/21 10:45 Blood Culture (Wb) - Anticubital Left Blood Culture - Preliminary 02/15/21 10:46 Blood Culture (Wb) - Right Hand Blood Culture - Preliminary 02/15/21 10:45 Mucosa - Nose SARS-CoV-2 Antigen (Rapid) - Final Weight used for dosin.7 kg Estimated Creatinine Clearance: 44 Goal Trough: 15-20 mcg/mL Pharmacy Plan for Drug Dosing: Pharmacy Service will continue to monitor and adjust dosing as required. Follow-Up Labs: Trough Vancomycin Labs to be done on [date and time ordered]: 02/17/21 @1400
[2021-02-16] MEDS: 0.9% Normal Saline 1,000 ML 150 ML IV (04:27)
[2021-02-16 04:40] LABS: Absolute Lymphocyte Count 0.13 X10^3/uL (0.83-4.51); Absolute Neutrophil Count 1.8 X10^3/uL (2.0-7.7); Hematocrit 25.3 % (37-47); Hemoglobin 8.4 g/dL (12.0-15.0); Lymphocyte # 0.13 X10^3/ul (4.0); Lymphocyte % 6.2 % (19-41); Mean Corp Hgb Conc 33.2 g/dL (32-36); Mean Corpuscular Volume 93.4 fL (81-99); Monocyte# 0.18 X10^3/uL; Monocyte% 8.6 % (0-10); NRBC Flagged by Analyzer 0 % (0-5); Neutrophil # 1.77 X10^3/uL (2.7-7.7); Neutrophil % 84.7 % (47-70); POSITIVE COUNT YES; POSITIVE DIFFERENTIAL YES; Platelet Count 54 K/mm3 (150-450); RBC Distribution Width SD 44.4 fl (35.1-43.9); Red Blood Count 2.71 M/mm3 (4.2-5.4); White Blood Count 2.1 K/mm3 (4.4-11.0)
[2021-02-16 04:44] LABS: Differential Indicated SCAN CRITERIA MET
[2021-02-16 04:58] LABS: ALB/GLOB Ratio 0.5 RATIO (0.9-2.4); AST(SGOT) 47 U/L (15-37); Alanine Aminotransfer ALT/SGPT 27 U/L (13-56); Alkaline Phosphatase 126 U/L (45-117); Anion Gap 8 (5-15); BUN 37 mg/dL (7-18); BUN/Creat Ratio 27.6 RATIO (10-20); Chloride 112 mmol/L (98-107); Creatinine, Serum 1.34 mg/dL (0.55-1.02); EST Glomerular Filtration Rate 44 mL/min (>60); Est Glom Filt Rate - Afr Amer 53 mL/min (>60); Estimated Creatinine Clearance 49.54 ml/min; Globulin 4.2 g/dL (2.2-4.2); Glucose 254 mg/dL (74-106); Potassium 3.4 mmol/L (3.5-5.1); Protein, Total 6.2 g/dL (6.4-8.2); Sodium Level 141 mmol/L (136-145)
[2021-02-16 05:17] LABS: Reflex Lactate? Y
[2021-02-16] MEDS: Heparin Injection (Vial) 5,000 UNIT/ML VIAL 5000 UNIT SC (05:40)
[2021-02-16 05:43] LABS: Differential Comment SCANNED; Platelet Estimate MKD DEC (ADEQ)
[2021-02-16 06:01] LABS: Bedside Glucose 258 mg/dL (70-110)
[2021-02-16 06:13] LABS: Lactic Acid 2.4 mmol/L (0.4-1.9)
[2021-02-16] MEDS: Lactulose 20 GM/30 ML UDC PO ×2 (06:28→13:04)
--- NOTE | 2021-02-16 07:15 | PCM.PN.INT ---
Subjective: Patient did okay overnight. Patient had refused lactulose and rifaximin overnight, but did agree this morning. Patient is much more interactive today compared to yesterday. Patient is still somewhat confused, but readily opens her eyes upon entering the room. General: Alert - More alert compared to yesterday, Cooperative, No apparent distress, Confused, - - Appears older than stated age. Better color today. HEENT: Atraumatic, PERRLA, EOMI, Normocephalic, - - Scleral injection without icterus noted Oral: Moist Mucosa, No Gingival or Mucosal Lesions/ Ulcerations Neck: Supple, No Nodes, Trachea Midline, JVD, Right Lungs: No rhonchi, No wheeze, No rales, Diminished, - - Fair effort Cardiovascular: Regular rate, Regular Rhythm, Normal S1, Normal S2, No murmurs, No rub noted, No Gallop Abdomen: Bowel Sounds Present, Soft, Non Tender, Non-Distended, Obese Extremities: No clubbing, No cyanosis, No edema Skin: No rashes, No breakdown Musculoskeletal: No Tenderness to Palpation of Joints or Extremities Lymphatic: No Cervical, Supraclavicular, or Inguinal Adenopathy Neurological: Cranial nerves II-XII grossly intact, Neuro grossly intact, Motor Exam 5/5 strength throughout Psych/Mental Status: Flat Affect Vital Signs Temp Pulse Resp BP Pulse Ox 37.8 C H 95 18 153/74 H 100 02/16/21 04:00 02/16/21 07:00 02/16/21 07:00 02/16/21 06:00 02/16/21 07:00 Oxygen Delivery Method Room Air Weight: 81.9 kg Body Mass Index (BMI) 27.7 Finger Stick Blood Glucose 217 Intake and Output for Last 24 Hours 02/14/21 02/15/21 02/16/21 23:59 23:59 23:59 Intake Total 2212.5 / 2682.5 1325 / 1325 Output Total 450 / 550 100 / 100 Balance 1762.5 / 2132.5 1225 / 1225 Labs (Last 48 Hours) 02/15/21 02/15/21 02/15/21 10:40 10:45 10:45 WBC 5.7 RBC 3.31 L Hgb 10.4 L Hct 30.4 L MCV 91.8 MCH 31.4 MCHC 34.2 RDW Std Deviation 42.9 RDW Coeff of Valentina 13.0 Plt Count 76 L MPV 12.2 H Immature Gran % (Auto) 0.400 Neut % (Auto) 92.3 H Lymph % (Auto) 1.8 L Bartholomew % (Auto) 5.3 Eos % (Auto) 0.0 Baso % (Auto) 0.2 Absolute Neuts (auto) 5.3 Absolute Lymphs (auto) 0.10 L Nucleated RBC % 0 Differential Comment SCANNED Diff Path Review Platelet Estimate MOD DEC PT INR APTT Specimen Type VBG pH VBG pO2 VBG HCO3 VBG Total CO2 VBG O2 Sat (Calc) VBG Base Excess POC Mix VBG pCO2 Pt Tmp Sodium 138 Potassium 3.6 Chloride 108 H Carbon Dioxide 23.0 Anion Gap 7 BUN 23 H Creatinine 1.50 H Estim Creat Clear Calc 44.26 Est GFR (MDRD) Af Amer 47 L Est GFR (MDRD) Non-Af 39 L BUN/Creatinine Ratio 15.3 Glucose 215 H Lactic Acid Calcium 8.3 L Total Bilirubin 1.60 H AST 62 H ALT 35 Alkaline Phosphatase 194 H Ammonia Total Creatine Kinase 137 Troponin I 0.026 Total Protein 7.8 Albumin 2.6 L Globulin 5.2 H Albumin/Globulin Ratio 0.5 L TSH 0.74 Urine Color Yellow Urine Clarity Sl. Cloudy Urine pH 6.0 Ur Specific [place] 1.010 Urine Protein 100 H Urine Glucose (UA) 100 H Urine Ketones 5 H Urine Occult Blood 250 H Urine Nitrite Positive H Urine Bilirubin 1 H Urine Urobilinogen 4 H Ur Leukocyte Esterase 500 H Urine RBC 0 SEEN Urine WBC 25-50 SEEN Ur Squamous Epith Cells 0 SEEN Amorphous Sediment 1+ Urine Bacteria 0 SEEN Urine Mucus 0 SEEN POC Glucose 02/15/21 02/15/21 02/15/21 10:45 10:45 10:45 WBC RBC Hgb Hct MCV MCH MCHC RDW Std Deviation RDW Coeff of Valentina Plt Count MPV Immature Gran % (Auto) Neut % (Auto) Lymph % (Auto) Bartholomew % (Auto) Eos % (Auto) Baso % (Auto) Absolute Neuts (auto) Absolute Lymphs (auto) Nucleated RBC % Differential Comment Diff Path Review Platelet Estimate PT 16.5 H INR 1.4 APTT 33.8 Specimen Type VBG pH VBG pO2 VBG HCO3 VBG Total CO2 VBG O2 Sat (Calc) VBG Base Excess POC Mix VBG pCO2 Pt Tmp Sodium Potassium Chloride Carbon Dioxide Anion Gap BUN Creatinine Estim Creat Clear Calc Est GFR (MDRD) Af Amer Est GFR (MDRD) Non-Af BUN/Creatinine Ratio Glucose Lactic Acid 2.7 H* Calcium Total Bilirubin AST ALT Alkaline Phosphatase Ammonia 60.0 H Total Creatine Kinase Troponin I Total Protein Albumin Globulin Albumin/Globulin Ratio TSH Urine Color Urine Clarity Urine pH Ur Specific [place] Urine Protein Urine Glucose (UA) Urine Ketones Urine Occult Blood Urine Nitrite Urine Bilirubin Urine Urobilinogen Ur Leukocyte Esterase Urine RBC Urine WBC Ur Squamous Epith Cells Amorphous Sediment Urine Bacteria Urine Mucus POC Glucose 02/15/21 02/15/21 02/15/21 11:07 14:05 15:14 WBC RBC Hgb Hct MCV MCH MCHC RDW Std Deviation RDW Coeff of Valentina Plt Count MPV Immature Gran % (Auto) Neut % (Auto) Lymph % (Auto) Bartholomew % (Auto) Eos % (Auto) Baso % (Auto) Absolute Neuts (auto) Absolute Lymphs (auto) Nucleated RBC % Differential Comment Diff Path Review Platelet Estimate PT INR APTT Specimen Type KAREN VBG pH 7.44 H VBG pO2 34 VBG HCO3 22 VBG Total CO2 23 VBG O2 Sat (Calc) 68 VBG Base Excess -3 L POC Mix VBG pCO2 Pt Tmp 31.5 L Sodium Potassium Chloride Carbon Dioxide Anion Gap BUN Creatinine Estim Creat Clear Calc Est GFR (MDRD) Af Amer Est GFR (MDRD) Non-Af BUN/Creatinine Ratio Glucose Lactic Acid 2.5 H* Calcium Total Bilirubin AST ALT Alkaline Phosphatase Ammonia Total Creatine Kinase Troponin I Total Protein Albumin Globulin Albumin/Globulin Ratio TSH Urine Color Urine Clarity Urine pH Ur Specific [place] Urine Protein Urine Glucose (UA) Urine Ketones Urine Occult Blood Urine Nitrite Urine Bilirubin Urine Urobilinogen Ur Leukocyte Esterase Urine RBC Urine WBC Ur Squamous Epith Cells Amorphous Sediment Urine Bacteria Urine Mucus POC Glucose 223 H 02/15/21 02/15/21 02/16/21 17:11 20:45 00:00 WBC RBC Hgb Hct MCV MCH MCHC RDW Std Deviation RDW Coeff of Valentina Plt Count MPV Immature Gran % (Auto) Neut % (Auto) Lymph % (Auto) Bartholomew % (Auto) Eos % (Auto) Baso % (Auto) Absolute Neuts (auto) Absolute Lymphs (auto) Nucleated RBC % Differential Comment Diff Path Review Platelet Estimate PT INR APTT Specimen Type VBG pH VBG pO2 VBG HCO3 VBG Total CO2 VBG O2 Sat (Calc) VBG Base Excess POC Mix VBG pCO2 Pt Tmp Sodium Potassium Chloride Carbon Dioxide Anion Gap BUN Creatinine Estim Creat Clear Calc Est GFR (MDRD) Af Amer Est GFR (MDRD) Non-Af BUN/Creatinine Ratio Glucose Lactic Acid 3.9 H* Calcium Total Bilirubin AST ALT Alkaline Phosphatase Ammonia Total Creatine Kinase Troponin I Total Protein Albumin Globulin Albumin/Globulin Ratio TSH Urine Color Urine Clarity Urine pH Ur Specific [place] Urine Protein Urine Glucose (UA) Urine Ketones Urine Occult Blood Urine Nitrite Urine Bilirubin Urine Urobilinogen Ur Leukocyte Esterase Urine RBC Urine WBC Ur Squamous Epith Cells Amorphous Sediment Urine Bacteria Urine Mucus POC Glucose 225 H 250 H 02/16/21 02/16/21 02/16/21 00:53 04:25 04:25 WBC 2.1 L RBC 2.71 L Hgb 8.4 L Hct 25.3 L MCV 93.4 MCH 31.0 MCHC 33.2 RDW Std Deviation 44.4 H RDW Coeff of Valentina 13.0 Plt Count 54 L MPV 11.0 Immature Gran % (Auto) 0.500 Neut % (Auto) 84.7 H Lymph % (Auto) 6.2 L Bartholomew % (Auto) 8.6 Eos % (Auto) 0.0 Baso % (Auto) 0.0 Absolute Neuts (auto) 1.8 L Absolute Lymphs (auto) 0.13 L Nucleated RBC % 0 Differential Comment SCANNED Diff Path Review May foll Platelet Estimate MKD DEC PT INR APTT Specimen Type VBG pH VBG pO2 VBG HCO3 VBG Total CO2 VBG O2 Sat (Calc) VBG Base Excess POC Mix VBG pCO2 Pt Tmp Sodium 141 Potassium 3.4 L Chloride 112 H Carbon Dioxide 21.0 Anion Gap 8 BUN 37 H Creatinine 1.34 H Estim Creat Clear Calc 49.54 Est GFR (MDRD) Af Amer 53 L Est GFR (MDRD) Non-Af 44 L BUN/Creatinine Ratio 27.6 H Glucose 254 H Lactic Acid 2.5 H* Calcium 7.0 L Total Bilirubin 1.70 H AST 47 H ALT 27 Alkaline Phosphatase 126 H Ammonia Total Creatine Kinase Troponin I Total Protein 6.2 L Albumin 2.0 L Globulin 4.2 Albumin/Globulin Ratio 0.5 L TSH Urine Color Urine Clarity Urine pH Ur Specific [place] Urine Protein Urine Glucose (UA) Urine Ketones Urine Occult Blood Urine Nitrite Urine Bilirubin Urine Urobilinogen Ur Leukocyte Esterase Urine RBC Urine WBC Ur Squamous Epith Cells Amorphous Sediment Urine Bacteria Urine Mucus POC Glucose 02/16/21 02/16/21 05:35 05:45 WBC RBC Hgb Hct MCV MCH MCHC RDW Std Deviation RDW Coeff of Valentina Plt Count MPV Immature Gran % (Auto) Neut % (Auto) Lymph % (Auto) Bartholomew % (Auto) Eos % (Auto) Baso % (Auto) Absolute Neuts (auto) Absolute Lymphs (auto) Nucleated RBC % Differential Comment Diff Path Review Platelet Estimate PT INR APTT Specimen Type VBG pH VBG pO2 VBG HCO3 VBG Total CO2 VBG O2 Sat (Calc) VBG Base Excess POC Mix VBG pCO2 Pt Tmp Sodium Potassium Chloride Carbon Dioxide Anion Gap BUN Creatinine Estim Creat Clear Calc Est GFR (MDRD) Af Amer Est GFR (MDRD) Non-Af BUN/Creatinine Ratio Glucose Lactic Acid 2.4 H* Calcium Total Bilirubin AST ALT Alkaline Phosphatase Ammonia Total Creatine Kinase Troponin I Total Protein Albumin Globulin Albumin/Globulin Ratio TSH Urine Color Urine Clarity Urine pH Ur Specific [place] Urine Protein Urine Glucose (UA) Urine Ketones Urine Occult Blood Urine Nitrite Urine Bilirubin Urine Urobilinogen Ur Leukocyte Esterase Urine RBC Urine WBC Ur Squamous Epith Cells Amorphous Sediment Urine Bacteria Urine Mucus POC Glucose 258 H Microbiology 02/15/21 10:45 Blood Culture (Wb) - Anticubital Left Bacteria Detection (PCR) - Preliminary Staphylococcus aureus 02/15/21 10:45 Blood Culture (Wb) - Anticubital Left Blood Culture - Preliminary 02/15/21 10:46 Blood Culture (Wb) - Right Hand Blood Culture - Preliminary 02/15/21 10:45 Mucosa - Nose SARS-CoV-2 Antigen (Rapid) - Final Clinical Impression(s) from Imaging Studies Chest X-Ray 02/15/21 11:00 IMPRESSION: Borderline cardiomegaly. The lungs are clear. Electronically Signed: Dash Shin MD at 11:19 EDT , Service support , Brain CT 02/15/21 11:16 IMPRESSION: Normal unenhanced CT scan of the brain. Electronically Signed: Dash Shin MD at 12:19 EDT , Service support , Medical Necessity - Tobacco Use Smoking Status: Never smoker Assessment/Plan All Active Problems Hepatic encephalopathy (Acute) Cellulitis (Acute) JULIANNE (acute kidney injury) (Acute) Acute UTI (Acute) Severe sepsis (Acute) Encephalopathy acute (Acute) RECOMMENDATIONS: 1. Continue empiric antibiotics pending culture sensitivities 2. Continue lactulose and rifaximin 3. Hold home medications such as Lyrica/baclofen 4. Possibly reinitiate diuretic therapy 5. Sliding scale insulin only 6. Possibly leave the intensive care unit later today pending hemodynamics IMPRESSIONS: 1. Acute hepatic encephalopathy secondary to severe sepsis secondary to UTI Patient with elevated ammonia. Patient was able to pass a bedside swallow evaluation, so we will proceed with lactulose and rifaximin. Patient has been placed empirically on antibiotics for probable UTI. Patient is growing staph aureus from the blood. Vancomycin was started overnight. Cannot exclude toxic metabolite accumulation given baclofen and Lyrica. 2. CKD stage III secondary to type 2 diabetes mellitus Unclear baseline. Patient did have acute kidney injury in the past with a creatinine as high as 4.2. We will continue to support hemodynamics and monitor closely. Would hold on basal insulin for now. Sliding scale insulin should be sufficient pending improvement in mental status 3. Autoimmune hepatitis/cirrhosis Patient appears to have a TIPS shunt in place on chest x-ray. This cannot be confirmed at this time. We will continue with lactulose and rifaximin. Patient does not have significant elevation in hepatic enzymes. Okay to restart diuretics from my perspective. Patient does not appear to have a significant amount of ascites on my evaluation. Chest x-ray is not suggestive of a significant pleural effusion. 4. Poor history/schizoaffective disorder/bipolar disorder Complicates care, management, recovery and prognosis. Hold on sedating medications for now given mental status Inpatient E&M: [id number] [facility] Hosp L3
[2021-02-16] MEDS: Potassium Chloride 10mEq/100mL 10 MEQ/100 ML IV.SOLN. 100 MEQ IV BOLUS ×2 (07:47→08:59)
[2021-02-16 07:48] LABS: Magnesium 1.6 mg/dL (1.6-2.6)
[2021-02-16] MEDS: Bisacodyl 10 MG Suppository RC (07:54)
--- NOTE | 2021-02-16 09:06 | PCM.PN.HOSP ---
Patient Problems: Active and Suspected Problems Hepatic encephalopathy (Acute) JULIANNE (acute kidney injury) (Acute) Acute UTI (Acute) Severe sepsis (Acute) Encephalopathy acute (Acute) MRSA bacteremia (Acute) Reason for Visit: Follow-up on acute metabolic and hepatic encephalopathy Subjective: Patient was seen and examined. She is much more awake. Her blood cultures came positive for MRSA; started on IV vancomycin; 2D echo ordered by ID Objective: Physical exam: General: Cooperative, No apparent distress, well, alert, oriented x3 HEENT: Atraumatic, PERRLA, EOMI, Normocephalic Oral: Moist Mucosa Neck: Supple Lungs: Clear to auscultation Cardiovascular: Regular rate, Regular Rhythm, Normal S1, Normal S2, No murmurs Abdomen: Bowel Sounds Present, Soft, Non Tender, Non-Distended, No Hepato-splenomegaly Extremities: No edema Skin: No rashes Musculoskeletal: No Tenderness to Palpation of Joints or Extremities Lymphatic: No Cervical, Supraclavicular, or Inguinal Adenopathy Neurological: Cranial nerves II-XII grossly intact, Neuro grossly intact Psych/Mental Status: Normal Affect, Appropriate Vitals/I&O's: Vital Signs Temp Pulse Resp BP Pulse Ox 101.0 F H 96 19 H 161/72 H 100 02/16/21 08:00 02/16/21 08:00 02/16/21 08:00 02/16/21 08:00 02/16/21 08:00 Oxygen Delivery Method Room Air Weight: 81.9 kg Body Mass Index (BMI) 27.7 Finger Stick Blood Glucose 217 Intake and Output for Last 24 Hours 02/14/21 02/15/21 02/16/21 23:59 23:59 23:59 Intake Total 2212.5 / 2682.5 1426.5 / 1426.5 Output Total 450 / 550 260 / 260 Balance 1762.5 / 2132.5 1166.5 / 1166.5 Microbiology Past 72 Hours 02/15/21 10:46 Blood Culture (Wb) - Right Hand Blood Culture - Preliminary 02/15/21 10:45 Blood Culture (Wb) - Anticubital Left Bacteria Detection (PCR) - Preliminary Staphylococcus aureus 02/15/21 10:45 Blood Culture (Wb) - Anticubital Left Blood Culture - Preliminary 02/15/21 10:45 Mucosa - Nose SARS-CoV-2 Antigen (Rapid) - Final Laboratory Results 02/15/21 10:40: Urine Color Yellow, Urine Clarity Sl. Cloudy, Urine pH 6.0, Ur Specific [place] 1.010, Urine Protein 100 H, Urine Glucose (UA) 100 H, Urine Ketones 5 H, Urine Occult Blood 250 H, Urine Nitrite Positive H, Urine Bilirubin 1 H, Urine Urobilinogen 4 H, Ur Leukocyte Esterase 500 H, Urine RBC 0 SEEN, Urine WBC 25-50 SEEN, Ur Squamous Epith Cells 0 SEEN, Amorphous Sediment 1+, Urine Bacteria 0 SEEN, Urine Mucus 0 SEEN 02/15/21 10:45: Sodium 138, Potassium 3.6, Chloride 108 H, Carbon Dioxide 23.0, Anion Gap 7, BUN 23 H, Creatinine 1.50 H, Estim Creat Clear Calc 44.26, Est GFR (MDRD) Af Amer 47 L, Est GFR (MDRD) Non-Af 39 L, BUN/Creatinine Ratio 15.3, Glucose 215 H, Calcium 8.3 L, Total Bilirubin 1.60 H, AST 62 H, ALT 35, Alkaline Phosphatase 194 H, Total Creatine Kinase 137, Troponin I 0.026, Total Protein 7.8, Albumin 2.6 L, Globulin 5.2 H, Albumin/Globulin Ratio 0.5 L, TSH 0.74 02/15/21 10:45: WBC 5.7, RBC 3.31 L, Hgb 10.4 L, Hct 30.4 L, MCV 91.8, MCH 31.4, MCHC 34.2, RDW Std Deviation 42.9, RDW Coeff of Valentina 13.0, Plt Count 76 L, MPV 12.2 H, Immature Gran % (Auto) 0.400, Neut % (Auto) 92.3 H, Lymph % (Auto) 1.8 L, [place] % (Auto) 5.3, Eos % (Auto) 0.0, Baso % (Auto) 0.2, Absolute Neuts (auto) 5.3, Absolute Lymphs (auto) 0.10 L, Nucleated RBC % 0, Differential Comment SCANNED, Platelet Estimate MOD DEC 02/15/21 10:45: PT 16.5 H, INR 1.4, APTT 33.8 02/15/21 10:45: Ammonia 60.0 H 02/15/21 10:45: Lactic Acid 2.7 H* 02/15/21 11:07: Specimen Type KAREN, VBG pH 7.44 H, VBG pO2 34, VBG HCO3 22, VBG Total CO2 23, VBG O2 Sat (Calc) 68, VBG Base Excess -3 L, POC Mix VBG pCO2 Pt Tmp 31.5 L 02/15/21 14:05: POC Glucose 223 H 02/15/21 15:14: Lactic Acid 2.5 H* 02/15/21 17:11: POC Glucose 225 H 02/15/21 20:45: Lactic Acid 3.9 H* 02/16/21 00:00: POC Glucose 250 H 02/16/21 00:53: Lactic Acid 2.5 H* 02/16/21 04:25: WBC 2.1 L, RBC 2.71 L, Hgb 8.4 L, Hct 25.3 L, MCV 93.4, MCH 31.0, MCHC 33.2, RDW Std Deviation 44.4 H, RDW Coeff of Valentina 13.0, Plt Count 54 L, MPV 11.0, Immature Gran % (Auto) 0.500, Neut % (Auto) 84.7 H, Lymph % (Auto) 6.2 L, [place] % (Auto) 8.6, Eos % (Auto) 0.0, Baso % (Auto) 0.0, Absolute Neuts (auto) 1.8 L, Absolute Lymphs (auto) 0.13 L, Nucleated RBC % 0, Differential Comment SCANNED, Diff Path Review March, Platelet Estimate MKD 02/16/21 04:25: Sodium 141, Potassium 3.4 L, Chloride 112 H, Carbon Dioxide 21.0, Anion Gap 8, BUN 37 H, Creatinine 1.34 H, Estim Creat Clear Calc 49.54, Est GFR (MDRD) Af Amer 53 L, Est GFR (MDRD) Non-Af 44 L, BUN/Creatinine Ratio 27.6 H, Glucose 254 H, Calcium 7.0 L, Total Bilirubin 1.70 H, AST 47 H, ALT 27, Alkaline Phosphatase 126 H, Total Protein 6.2 L, Albumin 2.0 L, Globulin 4.2, Albumin/Globulin Ratio 0.5 L 02/16/21 04:25: Magnesium 1.6 02/16/21 05:35: Lactic Acid 2.4 H* 02/16/21 05:45: POC Glucose 258 H Current Medications Acetaminophen (Acetaminophen 325 Mg Tablet) 650 mg PO Q8H PRN PRN PRN Reason: Pain Score 1-10/Temp > 100.7 F Albuterol Sulfate (Albuterol 2.5 Mg/3 Ml Vial.Neb.) 2.5 mg INHALATION Q2H PRN PRN PRN Reason: SOB/Wheezing Dextrose (Dextrose 50%-Water 25 Gm/50 Ml Disp.Syrin) 0 gm IV X1 PRN; Protocol PRN Reason: Hypoglycemia Dicyclomine HCl (Dicyclomine 10 Mg Capsule) 10 mg PO ACHS YONI Docusate Sodium (Docusate Sodium 100 Mg Capsule) 100 mg PO BID PRN PRN PRN Reason: Constipation Glucagon (Glucagon 1 Mg/Ml Syringe) 1 mg IM .X1 PRN PRN Reason: Hypoglycemia Piperacillin Sod/Tazobactam (Sod 3.375 gm/ Sodium Chloride) 50 mls @ 12.5 mls/hr IV Q8 YONI Last Admin: 02/16/21 05:39 Dose: 12.5 mls/hr Documented by: Vancomycin IV Pharmacy to Dose (1 each/ Sodium Chloride) 500 mls @ 250 mls/hr IV PRN PRN; Protocol PRN Reason: Rx to Dose Vancomycin HCl () 500 mg in 100 mls @ 100 mls/hr IV Q12H YONI Potassium Chloride () 10 meq in 100 mls @ 100 mls/hr IV BOLUS Q1H YONI Stop: 02/16/21 09:59 Last Admin: 02/16/21 08:59 Dose: 100 mls/hr Documented by: Sodium Chloride () 250 mls @ 15 mls/hr IV .[id number] PRN PRN Reason: Saline Flush Last Infusion: 02/16/21 08:08 Dose: 0 mls/hr Documented by: Sodium Chloride () 250 mls @ 15 mls/hr IV .[id number] PRN PRN Reason: Additional IVPB Infusion Last Admin: 02/16/21 08:02 Dose: 15 mls/hr Documented by: Magnesium Sulfate 2 gm/ Sodium (Chloride) 104 mls @ 52 mls/hr IV X1 ONE Stop: 02/16/21 11:29 Insulin Human Lispro (Insulin Lispro 100 Unit/Ml Insuln.Pen) 0 unit SC Q6 YONI; Protocol Last Admin: 02/16/21 05:45 Dose: 2 units Documented by: Lactulose (Lactulose 20 Gm/30 Ml Udc) 20 gm PO TID [facility] Last Admin: 02/16/21 06:28 Dose: 20 gm Documented by: Non-Formulary Medication (Spironolactone [Aldactone]) 100 mg PO DAILY [facility] Non-Formulary Medication (Carbamazepine [Carbatrol]) 100 mg PO BID [facility] Rifaximin (Rifaximin 550 Mg Tablet) 550 mg PO BID [facility] Last Admin: 02/15/21 20:30 Dose: 550 mg Documented by: Sodium Chloride (0.9% Saline Lock 10 Ml Syringe) 10 - 40 ml IV UD PRN PRN Reason: SALINE FLUSH STROKE Vital Signs/Narrative: Vital Signs Temp Pulse Resp BP Pulse Ox 02/16/21 08:00 101.0 F H 96 19 H 161/72 H 100 02/16/21 07:00 100.6 F H 95 18 155/78 H 100 02/16/21 06:00 90 18 153/74 H 100 Medical Necessity - Tobacco Use Smoking Status: Never smoker Assessment/Plan All Active Problems Hepatic encephalopathy (Acute) Cellulitis (Acute) JULIANNE (acute kidney injury) (Acute) Acute UTI (Acute) Severe sepsis (Acute) Encephalopathy acute (Acute) MRSA bacteremia (Acute) 1. Acute metabolic encephalopathy, appears to be improving Will continue to hold all sedative Continue to monitor mentation 2. MRSA bacteremia/Severe sepsis secondary to acute staph aureus UTI, Unclear etiology for MRSA. Continue on IV vancomycin and Zosyn Repeat blood cultures pending, ID consulted, 2D echo ordered, repeat labs in am 3. Acute hepatic encephalopathy, patient with autoimmune hepatitis, cirrhosis of the liver with varices, improving Will continue lactulose, rifaximin, spironolactone 4. Type II DM, blood sugars are starting to go up, patient is on a liquid diet pending improvement in her mentation. Her mentation appears to be improved, will resume on half the dose of the long-acting insulin 10 units Lantus, continue to hold Premeal insulin, continue on an increased dose of insulin sliding scale. Continue to monitor on blood glucose checks 5. Hypokalemia, potassium is 3.4, replace, recheck in a.m. 6. CKD stage III, remains close to baseline, repeat blood work in am 7. Chronic thrombocytopenia secondary to liver cirrhosis, hold off on heparin, P blood work in a.m. 8. DVT PPx- SCDs Inpatient E&M: [id number] Subs Hosp L2
--- NOTE | 2021-02-16 09:24 | ECHOD_ITS ---
Reason For Study: murmur Procedure This was a 2D Doppler, Color Flow transthoracic echocardiogram. The study was technically difficult. PT was quite emotional during exam. Exam performed portable in patient room. Left Ventricle Normal left ventricle. Left ventricular systolic function is normal. The estimated ejection fraction is 65 %. E/E' ratio is 14. increased left atrial filling pressure. Right Ventricle Normal right ventricle. Normal systolic function. Atria Normal left atrium. Normal right atrium. Mitral Valve Trivial mitral valve insufficiency. Tricuspid Valve Trivial tricuspid valve insufficiency. Unable to estimate RV systolic pressure due to insufficient tricuspid regurgitant envelope. Aortic Valve Normal aortic valve. Pulmonic Valve Normal pulmonic valve. Great Vessels The pulmonary artery is normal size. Normal inferior vena cava. Pericardium/Pleural No pericardial effusion. MMode/2D Measurements & Calculations LVIDd: 5.0 cm IVSd: 1.0 cm Ao root diam: 2.6 cm LVIDs: 3.3 cm LVPWd: 1.0 cm RVDd: 3.2 cm FS: 33.1 % LAV(MOD-bp): 68.4 ml LA A4 area: 21.1 cm2 LA dimension(2D): 3.3 cm LAV(MOD-bp) Indexed: 35.0 ml/m2 LAV(MOD-sp2): 65.7 ml LAV(MOD-sp4): 64.9 ml RA A4 area: 15.7 cm2 Time Measurements MV dec time: 0.25 sec Doppler Measurements & Calculations MV E max jose: 105.9 cm/sec Lat Peak E' Jose: 8.4 cm/sec Med Peak E' Jose: 6.7 cm/sec MV A max jose: 122.1 cm/sec E/E' lat: 12.6 E/E' med: 15.8 MV E/A: 0.87 Ao V2 max: 175.0 cm/sec LV V1 max: 117.8 cm/sec PA V2 max: 105.8 cm/sec Ao max P.2 mmHg LV V1 max P.5 mmHg Ao V2 mean: 127.2 cm/sec LV V1 mean P.7 mmHg Ao mean P.9 mmHg LV V1 mean: 92.1 cm/sec Ao V2 VTI: 35.8 cm LV V1 VTI: 27.9 cm ECHO/Echo Complete Interpretation Summary Normal left ventricle. Left ventricular systolic function is normal. The estimated ejection fraction is 65 %. E/E' ratio is 14 increased left atrial filling pressure Ordering Physician: Jon Melendez Referring Physician: Janay Canchola Performed By: Natasha Arboleda, FEREN, RVT
[2021-02-16] MEDS: rifAXIMin 550 MG Tablet PO ×2 (09:53→21:16)
--- NOTE | 2021-02-16 10:15 | CASEMGMT ---
RN FUNMILAYO Face to Face with patient for initial transition planning/care coordination assessment. RN CM introduced self and role at [facility]. Patient lying in bed, alert, slightly confused at time, tearful at times as well. Patient willing to participate in assessment and is able to answer all questions appropriately. Care providers, pharmacy, and demographics verified. Patient wishes to discharge home and discuss possibility of HHC at discharge pending ATBs and care needed at discharge. Patient states she has no further needs or concerns at this time. CM to follow for discharge planning needs that may arise. PCP: Jesika Specialists: Yaritza, Professor Of Physics; SWATI Moreno psychologist Preferred Pharmacy: [facility] Insurance: [employer] Prescription Benefit: yes Living Will/HPOA: none LNOK: significant other Sj, daughter Living Arrangements: Patient lives with significant other and 16 yo autistic son in a 2 story home. Patient states she is independent and able to ambulate stairs but mostly stays up in her room Transportation: Sj DME/HHC: [employer] states she has raised toilet, shower chair, grab bars, walker, glucometer and testing supplies at home. Patient denies previous HHC or SNF. Disposition Plan: Patient to discharge home with family support and follow-up plans in place. Will monitor for need for HHC pending course of treatment. Josefa VILLALOBOS, RN, CM
[2021-02-16 10:18] LABS: Pathologist Review Reviewed
--- NOTE | 2021-02-16 10:24 | PCM.HP.ID ---
Problem List (1) MRSA bacteremia Status: Acute Reason for Consult: bacteremia Consulted by: Dr. Clark History of Present Illness: The patient is a 50 year old F with schizoaffective disorder, presented to ED yesterday by EMS after being found unresponsive. Had fever, admitted to icu on zosyn, vanc added when bcx turned (+). Does not recall what happened. Denies any h/o MRSA or skin abscess, no new joint pain. No cough or SOB. Has h/o heart murmur. Denies any h/o ivdu. Full ROS performed and neg except as noted above. - Medical History Past Medical History (Chronic Problems): Chronic Problems Autoimmune hepatitis (Chronic) Diabetes mellitus (Chronic) Liver cirrhosis (Chronic) Reilly thyroiditis (Chronic) Autoimmune hepatitis (Chronic) Schizoaffective disorder (Chronic) Bipolar disorder (Chronic) Splenomegaly (Chronic) Allergies/Adverse Reactions: Allergies adhesive Allergy (Verified 02/15/21 10:56) Rash escitalopram oxalate [From Lexapro] Allergy (Verified 02/15/21 10:56) blindness gabapentin [From Neurontin] Allergy (Verified 02/15/21 10:56) Alan Jez's Syndrome lamotrigine [From Lamictal] Allergy (Verified 02/15/21 10:56) Blindness Preservatives Allergy (Uncoded 01/09/19 07:10) passed out, lungs deflated Preservatives in various foods including packaged gladys cheese, lettuce, and seafood. sour cream Allergy (Uncoded 01/09/19 07:10) Anaphylaxis Home Medications: Ambulatory Orders Medication Instructions Recorded Potassium Chloride [Klor-Con M20] 20 meq PO BID 09/25/15 Albuterol Inhaler [Ventolin Hfa] 2 puff INHALATION Q4H PRN PRN 02/16/16 Furosemide [Lasix] 20 mg PO DAILY 03/14/17 Insulin Lispro [Humalog] 12 units SC ACHS 03/14/17 Magnesium Oxide [Magnesium] 400 mg PO BID 03/14/17 Spironolactone [Aldactone] 100 mg PO DAILY 04/28/17 traMADol [Ultram] 50 mg PO Q6H PRN PRN 04/28/17 Sennosides/Docusate Sodium [Senna 1 each PO DAILY PRN 04/29/17 Plus Tablet] Fluvoxamine Maleate [Luvox] 100 mg PO QHS 11/04/17 Rifaximin [Xifaxan] 550 mg PO BID 11/04/17 Ursodiol [Actigall] 300 mg PO BID 11/04/17 Carbamazepine [Carbatrol] 100 mg PO BID 08/19/18 Cholecalciferol (Vitamin D3) 50,000 unit PO SA 08/19/18 [Vitamin D3] Dicyclomine HCl [Bentyl] 10 mg PO [facility] 08/19/18 Fluticasone Propionate [Flonase 15.8 ml NS BID PRN 08/19/18 Allergy Relief] Sucralfate [Carafate] 1 gm PO [facility] 08/19/18 Omeprazole [Prilosec] 40 mg PO DAILY #0 08/20/18 Baclofen 10 mg PO QHS 01/09/19 Lactulose [Chronulac] 20 gm PO TID 01/09/19 Insulin Degludec [Tresiba 20 unit SQ DAILY #0 01/10/19 Flextouch U-100] Pregabalin [Lyrica] 50 mg PO BID 11/06/19 Insulin Lispro [Humalog KwikPen] See Protocol [facility] 02/15/21 - Social History Tobacco Use: non-smoker Vital Signs Temp Pulse Resp BP Pulse Ox 101.0 F H 96 19 H 161/72 H 100 02/16/21 08:00 02/16/21 08:00 02/16/21 08:00 02/16/21 08:00 02/16/21 08:00 Oxygen Delivery Method Room Air Weight: 81.9 kg Body Mass Index (BMI) 27.7 Finger Stick Blood Glucose 217 Microbiology Past 72 Hours 02/15/21 10:46 Blood Culture - Preliminary Blood Culture (Wb) - Right Hand 02/15/21 10:45 Bacteria Detection (PCR) - Final Blood Culture (Wb) - Anticubital Left Staphylococcus aureus mecA Resistance Marker Blood Culture - Preliminary 02/15/21 10:45 SARS-CoV-2 Antigen (Rapid) - Final Mucosa - Nose Laboratory Tests Past 24 Hrs 02/15/21 02/15/21 02/15/21 10:40 10:45 10:45 WBC 5.7 RBC 3.31 L Hgb 10.4 L Hct 30.4 L MCV 91.8 MCH 31.4 MCHC 34.2 RDW Std Deviation 42.9 RDW Coeff of Valentina 13.0 Plt Count 76 L MPV 12.2 H Immature Gran % (Auto) 0.400 Neut % (Auto) 92.3 H Lymph % (Auto) 1.8 L [place] % (Auto) 5.3 Eos % (Auto) 0.0 Baso % (Auto) 0.2 Absolute Neuts (auto) 5.3 Absolute Lymphs (auto) 0.10 L Nucleated RBC % 0 Differential Comment SCANNED Diff Path Review Platelet Estimate MOD DEC PT INR APTT Specimen Type VBG pH VBG pO2 VBG HCO3 VBG Total CO2 VBG O2 Sat (Calc) VBG Base Excess POC Mix VBG pCO2 Pt Tmp Sodium 138 Potassium 3.6 Chloride 108 H Carbon Dioxide 23.0 Anion Gap 7 BUN 23 H Creatinine 1.50 H Estim Creat Clear Calc 44.26 Est GFR (MDRD) Af Amer 47 L Est GFR (MDRD) Non-Af 39 L BUN/Creatinine Ratio 15.3 Glucose 215 H Lactic Acid Calcium 8.3 L Magnesium Total Bilirubin 1.60 H AST 62 H ALT 35 Alkaline Phosphatase 194 H Ammonia Total Creatine Kinase 137 Troponin I 0.026 Total Protein 7.8 Albumin 2.6 L Globulin 5.2 H Albumin/Globulin Ratio 0.5 L TSH 0.74 Urine Color Yellow Urine Clarity Sl. Cloudy Urine pH 6.0 Ur Specific Douglas 1.010 Urine Protein 100 H Urine Glucose (UA) 100 H Urine Ketones 5 H Urine Occult Blood 250 H Urine Nitrite Positive H Urine Bilirubin 1 H Urine Urobilinogen 4 H Ur Leukocyte Esterase 500 H Urine RBC 0 SEEN Urine WBC 25-50 SEEN Ur Squamous Epith Cells 0 SEEN Amorphous Sediment 1+ Urine Bacteria 0 SEEN Urine Mucus 0 SEEN 02/15/21 02/15/21 02/15/21 10:45 10:45 10:45 WBC RBC Hgb Hct MCV MCH MCHC RDW Std Deviation RDW Coeff of Valentina Plt Count MPV Immature Gran % (Auto) Neut % (Auto) Lymph % (Auto) [place] % (Auto) Eos % (Auto) Baso % (Auto) Absolute Neuts (auto) Absolute Lymphs (auto) Nucleated RBC % Differential Comment Diff Path Review Platelet Estimate PT 16.5 H INR 1.4 APTT 33.8 Specimen Type VBG pH VBG pO2 VBG HCO3 VBG Total CO2 VBG O2 Sat (Calc) VBG Base Excess POC Mix VBG pCO2 Pt Tmp Sodium Potassium Chloride Carbon Dioxide Anion Gap BUN Creatinine Estim Creat Clear Calc Est GFR (MDRD) Af Amer Est GFR (MDRD) Non-Af BUN/Creatinine Ratio Glucose Lactic Acid 2.7 H* Calcium Magnesium Total Bilirubin AST ALT Alkaline Phosphatase Ammonia 60.0 H Total Creatine Kinase Troponin I Total Protein Albumin Globulin Albumin/Globulin Ratio TSH Urine Color Urine Clarity Urine pH Ur Specific Douglas Urine Protein Urine Glucose (UA) Urine Ketones Urine Occult Blood Urine Nitrite Urine Bilirubin Urine Urobilinogen Ur Leukocyte Esterase Urine RBC Urine WBC Ur Squamous Epith Cells Amorphous Sediment Urine Bacteria Urine Mucus 02/15/21 02/15/21 02/15/21 11:07 15:14 20:45 WBC RBC Hgb Hct MCV MCH MCHC RDW Std Deviation RDW Coeff of Valentina Plt Count MPV Immature Gran % (Auto) Neut % (Auto) Lymph % (Auto) [place] % (Auto) Eos % (Auto) Baso % (Auto) Absolute Neuts (auto) Absolute Lymphs (auto) Nucleated RBC % Differential Comment Diff Path Review Platelet Estimate PT INR APTT Specimen Type KAREN VBG pH 7.44 H VBG pO2 34 VBG HCO3 22 VBG Total CO2 23 VBG O2 Sat (Calc) 68 VBG Base Excess -3 L POC Mix VBG pCO2 Pt Tmp 31.5 L Sodium Potassium Chloride Carbon Dioxide Anion Gap BUN Creatinine Estim Creat Clear Calc Est GFR (MDRD) Af Amer Est GFR (MDRD) Non-Af BUN/Creatinine Ratio Glucose Lactic Acid 2.5 H* 3.9 H* Calcium Magnesium Total Bilirubin AST ALT Alkaline Phosphatase Ammonia Total Creatine Kinase Troponin I Total Protein Albumin Globulin Albumin/Globulin Ratio TSH Urine Color Urine Clarity Urine pH Ur Specific Douglas Urine Protein Urine Glucose (UA) Urine Ketones Urine Occult Blood Urine Nitrite Urine Bilirubin Urine Urobilinogen Ur Leukocyte Esterase Urine RBC Urine WBC Ur Squamous Epith Cells Amorphous Sediment Urine Bacteria Urine Mucus 02/16/21 02/16/21 02/16/21 00:53 04:25 04:25 WBC 2.1 L RBC 2.71 L Hgb 8.4 L Hct 25.3 L MCV 93.4 MCH 31.0 MCHC 33.2 RDW Std Deviation 44.4 H RDW Coeff of Valentina 13.0 Plt Count 54 L MPV 11.0 Immature Gran % (Auto) 0.500 Neut % (Auto) 84.7 H Lymph % (Auto) 6.2 L [place] % (Auto) 8.6 Eos % (Auto) 0.0 Baso % (Auto) 0.0 Absolute Neuts (auto) 1.8 L Absolute Lymphs (auto) 0.13 L Nucleated RBC % 0 Differential Comment SCANNED Diff Path Review Reviewed Platelet Estimate MKD DEC PT INR APTT Specimen Type VBG pH VBG pO2 VBG HCO3 VBG Total CO2 VBG O2 Sat (Calc) VBG Base Excess POC Mix VBG pCO2 Pt Tmp Sodium 141 Potassium 3.4 L Chloride 112 H Carbon Dioxide 21.0 Anion Gap 8 BUN 37 H Creatinine 1.34 H Estim Creat Clear Calc 49.54 Est GFR (MDRD) Af Amer 53 L Est GFR (MDRD) Non-Af 44 L BUN/Creatinine Ratio 27.6 H Glucose 254 H Lactic Acid 2.5 H* Calcium 7.0 L Magnesium Total Bilirubin 1.70 H AST 47 H ALT 27 Alkaline Phosphatase 126 H Ammonia Total Creatine Kinase Troponin I Total Protein 6.2 L Albumin 2.0 L Globulin 4.2 Albumin/Globulin Ratio 0.5 L TSH Urine Color Urine Clarity Urine pH Ur Specific Douglas Urine Protein Urine Glucose (UA) Urine Ketones Urine Occult Blood Urine Nitrite Urine Bilirubin Urine Urobilinogen Ur Leukocyte Esterase Urine RBC Urine WBC Ur Squamous Epith Cells Amorphous Sediment Urine Bacteria Urine Mucus 02/16/21 02/16/21 04:25 05:35 WBC RBC Hgb Hct MCV MCH MCHC RDW Std Deviation RDW Coeff of Valentina Plt Count MPV Immature Gran % (Auto) Neut % (Auto) Lymph % (Auto) [place] % (Auto) Eos % (Auto) Baso % (Auto) Absolute Neuts (auto) Absolute Lymphs (auto) Nucleated RBC % Differential Comment Diff Path Review Platelet Estimate PT INR APTT Specimen Type VBG pH VBG pO2 VBG HCO3 VBG Total CO2 VBG O2 Sat (Calc) VBG Base Excess POC Mix VBG pCO2 Pt Tmp Sodium Potassium Chloride Carbon Dioxide Anion Gap BUN Creatinine Estim Creat Clear Calc Est GFR (MDRD) Af Amer Est GFR (MDRD) Non-Af BUN/Creatinine Ratio Glucose Lactic Acid 2.4 H* Calcium Magnesium 1.6 Total Bilirubin AST ALT Alkaline Phosphatase Ammonia Total Creatine Kinase Troponin I Total Protein Albumin Globulin Albumin/Globulin Ratio TSH Urine Color Urine Clarity Urine pH Ur Specific [place] Urine Protein Urine Glucose (UA) Urine Ketones Urine Occult Blood Urine Nitrite Urine Bilirubin Urine Urobilinogen Ur Leukocyte Esterase Urine RBC Urine WBC Ur Squamous Epith Cells Amorphous Sediment Urine Bacteria Urine Mucus - Other Studies Radiology: [] reviewed Other Studies: [] Route of nutrition/ use of supplements: [] Nutritional Intake: [] IV Site: [] Hill Catheter: [] - Physical Exam General: Alert, Cooperative, No apparent distress, - - oriented x1 HEENT: Atraumatic, PERRLA, EOMI Neck: Supple, No Nodes Lungs: Clear to auscultation, Normal air movement Cardiovascular: Regular rate, Regular Rhythm, Murmur Abdomen: Soft, Non Tender, Non-Distended Extremities: No edema Skin: - - some scabs on upper back. Toes and fingernails painted IV Site: Peripheral, without redness Musculoskeletal: No Tenderness to Palpation of Joints or Extremities - no spine tenderness Neurological: Cranial nerves II-XII grossly intact - Assessment/Plan Antibiotics: [] Assessment/Plan: [] Active and Suspected Problems Hepatic encephalopathy (Acute) JULIANNE (acute kidney injury) (Acute) Acute UTI (Acute) Severe sepsis (Acute) Encephalopathy acute (Acute) severe sepsis due to MRSA bacteremia per pcr - cont vanc/zosyn for now. Will check repeat bcx and echo. Reports h/o heart murmur. Will follow, thank you, d/w Dr. Clark
[2021-02-16] MEDS: carBAMazepine 200 MG Tablet 100 MG PO ×2 (10:27→21:16)
[2021-02-16] MEDS: Dicyclomine 10 MG Capsule PO ×3 (10:27→21:15)
[2021-02-16] MEDS: Spironolactone 50 MG Tablet 100 MG PO (10:27)
--- NOTE | 2021-02-16 11:41 | CASEMGMT ---
Social Work SW received referral from RNCM for emotional support as pt was tearful throughout assessment. SW entered pt room and pt is lying in bed crying. SW introduced self and role. Pt lives at home with her 16 year old son who has autism and her significant other Sj Tyler. Pt states that son goes to school each day and that Sj works. Pt stays in her bedroom most of the day and Sj assists her as needed when he returns from work. Pt has a sister Jennifer that takes her out of the house from time to time. Pt states she sees a psychiatrist quarterly that manages her medication, but pt is unable to state what medication she is on or the name or place of employment of the psychiatrist. Pt states she does see her psychologist Dr. Moreno at the [facility] regularly and he is my rock. Pt calmed as SW spent time with the pt. Pt stating she wants to see Sj. SW assisted pt in calling Sj to notify him that he can visit. No answer and pt states he does not check his messages. Nurse entered room and informed pt that nursing called Sj a bit ago and updated on medical condition and that he can visit pt. Pt reassured by this and appreciative of visit from MARIANA. SW will remain available for any further needs. RUY Chappell
[2021-02-16 11:50] LABS: Bedside Glucose 272 mg/dL (70-110)
[2021-02-16] MEDS: Vancomycin IV 500 MG/100 ML BAG 100 MG IV (12:52)
[2021-02-16 16:50] LABS: Bedside Glucose 353 mg/dL (70-110)
[2021-02-16] MEDS: Menthol/Lanolin/Calamine/Znox 113 GM Tube 1 APPLIC TOPICAL (21:13)
[2021-02-16 22:10] LABS: Bedside Glucose 295 mg/dL (70-110)
[2021-02-17] VITALS (10 sets, daily range): BP systolic 117–146; BP diastolic 52–69; PULSE 61–102; RESP 16–19; TEMP 36.4–37.1; O2SAT 98–100
[2021-02-17] MEDS: Vancomycin IV 500 MG/100 ML BAG 100 MG IV ×2 (01:44→15:31)
[2021-02-17] MEDS: Dicyclomine 10 MG Capsule PO ×4 (06:06→22:17)
[2021-02-17] MEDS: Acetaminophen 325 MG Tablet 650 MG PO ×3 (06:07→23:39)
[2021-02-17 06:10] LABS: Absolute Neutrophil Count 0.7 X10^3/uL (2.0-7.7); Basophil# 0.01 X10^3/uL; Basophil% 0.9 % (0-1); Eosinophil# 0.02 X10^3/uL; Eosinophils% 1.8 % (0-5); Hematocrit 25.4 % (37-47); Hemoglobin 8.6 g/dL (12.0-15.0); Lymphocyte % 17.9 % (19-41); Mean Corp Hgb Conc 33.9 g/dL (32-36); Mean Corpuscular Hgb 31.3 pg (27.0-32.0); Mean Corpuscular Volume 92.4 fL (81-99); Mean Platelet Vol. 12.9 fl (6.2-12.0); Monocyte# 0.21 X10^3/uL; Monocyte% 18.8 % (0-10); NRBC Flagged by Analyzer 0 % (0-5); Neutrophil # 0.67 X10^3/uL (2.7-7.7); Neutrophil % 59.7 % (47-70); POSITIVE COUNT YES; POSITIVE DIFFERENTIAL YES; RBC Distribution Width CV 12.9 % (11.6-14.6); RBC Distribution Width SD 43.5 fl (35.1-43.9); Red Blood Count 2.75 M/mm3 (4.2-5.4)
[2021-02-17 06:14] LABS: Differential Indicated SCAN CRITERIA MET
[2021-02-17 06:15] LABS: Platelet Count 47 K/mm3 (150-450); White Blood Count 1.1 K/mm3 (4.4-11.0)
[2021-02-17] MEDS: Insulin Lispro 100 UNIT/ML INSULN.PEN SC ×4 (06:31→21:09)
[2021-02-17 06:34] LABS: Differential Comment SCANNED; Platelet Estimate MKD DEC (ADEQ)
[2021-02-17 06:45] LABS: ALB/GLOB Ratio 0.5 RATIO (0.9-2.4); AST(SGOT) 47 U/L (15-37); Alanine Aminotransfer ALT/SGPT 31 U/L (13-56); Albumin, Serum 1.9 g/dL (3.2-5.0); Alkaline Phosphatase 112 U/L (45-117); Anion Gap 7 (5-15); BUN 32 mg/dL (7-18); BUN/Creat Ratio 31.1 RATIO (10-20); Calcium,Total 7.2 mg/dL (8.5-10.1); Chloride 112 mmol/L (98-107); Creatinine, Serum 1.03 mg/dL (0.55-1.02); EST Glomerular Filtration Rate 60 mL/min (>60); Est Glom Filt Rate - Afr Amer 72 mL/min (>60); Estimated Creatinine Clearance 64.45 ml/min; Glucose 284 mg/dL (74-106); Potassium 3.2 mmol/L (3.5-5.1); Protein, Total 5.9 g/dL (6.4-8.2); Sodium Level 139 mmol/L (136-145)
[2021-02-17 06:50] LABS: Bedside Glucose 251 mg/dL (70-110)
[2021-02-17 08:09] LABS: Magnesium 2.2 mg/dL (1.6-2.6)
--- NOTE | 2021-02-17 08:50 | PCM.PN.INT ---
Subjective: Patient's mentation is much improved today compared to yesterday. Patient did have a fever overnight, but remained hemodynamically stable on room air. Patient asking if she can be home by Eliz. Patient has no recollection of the first 2 days of hospitalization. General: Alert, Oriented x3, Cooperative, No apparent distress, - - Appears older than stated age HEENT: Atraumatic, PERRLA, EOMI, Normocephalic, - - Scleral injection improved Oral: Moist Mucosa, No Gingival or Mucosal Lesions/ Ulcerations Neck: Supple, No JVD, No Nodes, Trachea Midline Lungs: Clear to auscultation, Normal air movement, No rhonchi, No wheeze, No rales Cardiovascular: Regular rate, Regular Rhythm, Normal S1, Normal S2, No murmurs, No rub noted, No Gallop Abdomen: Bowel Sounds Present, Soft, Non Tender, Non-Distended Extremities: No clubbing, No cyanosis, No edema, Capillary Refill Less than 3 Seconds Skin: - - No change from previous Musculoskeletal: No Tenderness to Palpation of Joints or Extremities Lymphatic: No Cervical, Supraclavicular, or Inguinal Adenopathy Neurological: Cranial nerves II-XII grossly intact, Neuro grossly intact, Motor Exam 5/5 strength throughout Psych/Mental Status: Normal Affect, Appropriate Vital Signs Temp Pulse Resp BP Pulse Ox 36.4 C L 77 16 137/69 H 98 02/17/21 03:22 02/17/21 06:59 02/17/21 03:22 02/17/21 03:22 02/17/21 03:22 Oxygen Delivery Method Room Air Weight: 86.1 kg Body Mass Index (BMI) 27.7 Finger Stick Blood Glucose 217 Intake and Output for Last 24 Hours 02/15/21 02/16/21 02/17/21 23:59 23:59 23:59 Intake Total 2212.5 / 2682.5 3166.92 / 3166.92 598.5 / 598.5 Output Total 450 / 550 385 / 385 Balance 1762.5 / 2132.5 2781.92 / 2781.92 598.5 / 598.5 Labs (Last 48 Hours) 02/15/21 02/15/21 02/15/21 10:40 10:45 10:45 WBC 5.7 RBC 3.31 L Hgb 10.4 L Hct 30.4 L MCV 91.8 MCH 31.4 MCHC 34.2 RDW Std Deviation 42.9 RDW Coeff of Valentina 13.0 Plt Count 76 L MPV 12.2 H Immature Gran % (Auto) 0.400 Neut % (Auto) 92.3 H Lymph % (Auto) 1.8 L [place] % (Auto) 5.3 Eos % (Auto) 0.0 Baso % (Auto) 0.2 Absolute Neuts (auto) 5.3 Absolute Lymphs (auto) 0.10 L Nucleated RBC % 0 Differential Comment SCANNED Diff Path Review Platelet Estimate MOD DEC PT INR APTT Specimen Type VBG pH VBG pO2 VBG HCO3 VBG Total CO2 VBG O2 Sat (Calc) VBG Base Excess POC Mix VBG pCO2 Pt Tmp Sodium 138 Potassium 3.6 Chloride 108 H Carbon Dioxide 23.0 Anion Gap 7 BUN 23 H Creatinine 1.50 H Estim Creat Clear Calc 44.26 Est GFR (MDRD) Af Amer 47 L Est GFR (MDRD) Non-Af 39 L BUN/Creatinine Ratio 15.3 Glucose 215 H Lactic Acid Calcium 8.3 L Magnesium Total Bilirubin 1.60 H AST 62 H ALT 35 Alkaline Phosphatase 194 H Ammonia Total Creatine Kinase 137 Troponin I 0.026 Total Protein 7.8 Albumin 2.6 L Globulin 5.2 H Albumin/Globulin Ratio 0.5 L TSH 0.74 Urine Color Yellow Urine Clarity Sl. Cloudy Urine pH 6.0 Ur Specific [place] 1.010 Urine Protein 100 H Urine Glucose (UA) 100 H Urine Ketones 5 H Urine Occult Blood 250 H Urine Nitrite Positive H Urine Bilirubin 1 H Urine Urobilinogen 4 H Ur Leukocyte Esterase 500 H Urine RBC 0 SEEN Urine WBC 25-50 SEEN Ur Squamous Epith Cells 0 SEEN Amorphous Sediment 1+ Urine Bacteria 0 SEEN Urine Mucus 0 SEEN POC Glucose 02/15/21 02/15/21 02/15/21 10:45 10:45 10:45 WBC RBC Hgb Hct MCV MCH MCHC RDW Std Deviation RDW Coeff of Valentina Plt Count MPV Immature Gran % (Auto) Neut % (Auto) Lymph % (Auto) [place] % (Auto) Eos % (Auto) Baso % (Auto) Absolute Neuts (auto) Absolute Lymphs (auto) Nucleated RBC % Differential Comment Diff Path Review Platelet Estimate PT 16.5 H INR 1.4 APTT 33.8 Specimen Type VBG pH VBG pO2 VBG HCO3 VBG Total CO2 VBG O2 Sat (Calc) VBG Base Excess POC Mix VBG pCO2 Pt Tmp Sodium Potassium Chloride Carbon Dioxide Anion Gap BUN Creatinine Estim Creat Clear Calc Est GFR (MDRD) Af Amer Est GFR (MDRD) Non-Af BUN/Creatinine Ratio Glucose Lactic Acid 2.7 H* Calcium Magnesium Total Bilirubin AST ALT Alkaline Phosphatase Ammonia 60.0 H Total Creatine Kinase Troponin I Total Protein Albumin Globulin Albumin/Globulin Ratio TSH Urine Color Urine Clarity Urine pH Ur Specific [place] Urine Protein Urine Glucose (UA) Urine Ketones Urine Occult Blood Urine Nitrite Urine Bilirubin Urine Urobilinogen Ur Leukocyte Esterase Urine RBC Urine WBC Ur Squamous Epith Cells Amorphous Sediment Urine Bacteria Urine Mucus POC Glucose 02/15/21 02/15/21 02/15/21 11:07 14:05 15:14 WBC RBC Hgb Hct MCV MCH MCHC RDW Std Deviation RDW Coeff of Valentina Plt Count MPV Immature Gran % (Auto) Neut % (Auto) Lymph % (Auto) [place] % (Auto) Eos % (Auto) Baso % (Auto) Absolute Neuts (auto) Absolute Lymphs (auto) Nucleated RBC % Differential Comment Diff Path Review Platelet Estimate PT INR APTT Specimen Type KAREN VBG pH 7.44 H VBG pO2 34 VBG HCO3 22 VBG Total CO2 23 VBG O2 Sat (Calc) 68 VBG Base Excess -3 L POC Mix VBG pCO2 Pt Tmp 31.5 L Sodium Potassium Chloride Carbon Dioxide Anion Gap BUN Creatinine Estim Creat Clear Calc Est GFR (MDRD) Af Amer Est GFR (MDRD) Non-Af BUN/Creatinine Ratio Glucose Lactic Acid 2.5 H* Calcium Magnesium Total Bilirubin AST ALT Alkaline Phosphatase Ammonia Total Creatine Kinase Troponin I Total Protein Albumin Globulin Albumin/Globulin Ratio TSH Urine Color Urine Clarity Urine pH Ur Specific [place] Urine Protein Urine Glucose (UA) Urine Ketones Urine Occult Blood Urine Nitrite Urine Bilirubin Urine Urobilinogen Ur Leukocyte Esterase Urine RBC Urine WBC Ur Squamous Epith Cells Amorphous Sediment Urine Bacteria Urine Mucus POC Glucose 223 H 02/15/21 02/15/21 02/16/21 17:11 20:45 00:00 WBC RBC Hgb Hct MCV MCH MCHC RDW Std Deviation RDW Coeff of Valentina Plt Count MPV Immature Gran % (Auto) Neut % (Auto) Lymph % (Auto) [place] % (Auto) Eos % (Auto) Baso % (Auto) Absolute Neuts (auto) Absolute Lymphs (auto) Nucleated RBC % Differential Comment Diff Path Review Platelet Estimate PT INR APTT Specimen Type VBG pH VBG pO2 VBG HCO3 VBG Total CO2 VBG O2 Sat (Calc) VBG Base Excess POC Mix VBG pCO2 Pt Tmp Sodium Potassium Chloride Carbon Dioxide Anion Gap BUN Creatinine Estim Creat Clear Calc Est GFR (MDRD) Af Amer Est GFR (MDRD) Non-Af BUN/Creatinine Ratio Glucose Lactic Acid 3.9 H* Calcium Magnesium Total Bilirubin AST ALT Alkaline Phosphatase Ammonia Total Creatine Kinase Troponin I Total Protein Albumin Globulin Albumin/Globulin Ratio TSH Urine Color Urine Clarity Urine pH Ur Specific [place] Urine Protein Urine Glucose (UA) Urine Ketones Urine Occult Blood Urine Nitrite Urine Bilirubin Urine Urobilinogen Ur Leukocyte Esterase Urine RBC Urine WBC Ur Squamous Epith Cells Amorphous Sediment Urine Bacteria Urine Mucus POC Glucose 225 H 250 H 02/16/21 02/16/21 02/16/21 00:53 04:25 04:25 WBC 2.1 L RBC 2.71 L Hgb 8.4 L Hct 25.3 L MCV 93.4 MCH 31.0 MCHC 33.2 RDW Std Deviation 44.4 H RDW Coeff of Valentina 13.0 Plt Count 54 L MPV 11.0 Immature Gran % (Auto) 0.500 Neut % (Auto) 84.7 H Lymph % (Auto) 6.2 L [place] % (Auto) 8.6 Eos % (Auto) 0.0 Baso % (Auto) 0.0 Absolute Neuts (auto) 1.8 L Absolute Lymphs (auto) 0.13 L Nucleated RBC % 0 Differential Comment SCANNED Diff Path Review Reviewed Platelet Estimate MKD DEC PT INR APTT Specimen Type VBG pH VBG pO2 VBG HCO3 VBG Total CO2 VBG O2 Sat (Calc) VBG Base Excess POC Mix VBG pCO2 Pt Tmp Sodium 141 Potassium 3.4 L Chloride 112 H Carbon Dioxide 21.0 Anion Gap 8 BUN 37 H Creatinine 1.34 H Estim Creat Clear Calc 49.54 Est GFR (MDRD) Af Amer 53 L Est GFR (MDRD) Non-Af 44 L BUN/Creatinine Ratio 27.6 H Glucose 254 H Lactic Acid 2.5 H* Calcium 7.0 L Magnesium Total Bilirubin 1.70 H AST 47 H ALT 27 Alkaline Phosphatase 126 H Ammonia Total Creatine Kinase Troponin I Total Protein 6.2 L Albumin 2.0 L Globulin 4.2 Albumin/Globulin Ratio 0.5 L TSH Urine Color Urine Clarity Urine pH Ur Specific [place] Urine Protein Urine Glucose (UA) Urine Ketones Urine Occult Blood Urine Nitrite Urine Bilirubin Urine Urobilinogen Ur Leukocyte Esterase Urine RBC Urine WBC Ur Squamous Epith Cells Amorphous Sediment Urine Bacteria Urine Mucus POC Glucose 02/16/21 02/16/21 02/16/21 04:25 05:35 05:45 WBC RBC Hgb Hct MCV MCH MCHC RDW Std Deviation RDW Coeff of Valentina Plt Count MPV Immature Gran % (Auto) Neut % (Auto) Lymph % (Auto) [place] % (Auto) Eos % (Auto) Baso % (Auto) Absolute Neuts (auto) Absolute Lymphs (auto) Nucleated RBC % Differential Comment Diff Path Review Platelet Estimate PT INR APTT Specimen Type VBG pH VBG pO2 VBG HCO3 VBG Total CO2 VBG O2 Sat (Calc) VBG Base Excess POC Mix VBG pCO2 Pt Tmp Sodium Potassium Chloride Carbon Dioxide Anion Gap BUN Creatinine Estim Creat Clear Calc Est GFR (MDRD) Af Amer Est GFR (MDRD) Non-Af BUN/Creatinine Ratio Glucose Lactic Acid 2.4 H* Calcium Magnesium 1.6 Total Bilirubin AST ALT Alkaline Phosphatase Ammonia Total Creatine Kinase Troponin I Total Protein Albumin Globulin Albumin/Globulin Ratio TSH Urine Color Urine Clarity Urine pH Ur Specific [place] Urine Protein Urine Glucose (UA) Urine Ketones Urine Occult Blood Urine Nitrite Urine Bilirubin Urine Urobilinogen Ur Leukocyte Esterase Urine RBC Urine WBC Ur Squamous Epith Cells Amorphous Sediment Urine Bacteria Urine Mucus POC Glucose 258 H 02/16/21 02/16/21 02/16/21 11:42 16:25 20:29 WBC RBC Hgb Hct MCV MCH MCHC RDW Std Deviation RDW Coeff of Valentina Plt Count MPV Immature Gran % (Auto) Neut % (Auto) Lymph % (Auto) [place] % (Auto) Eos % (Auto) Baso % (Auto) Absolute Neuts (auto) Absolute Lymphs (auto) Nucleated RBC % Differential Comment Diff Path Review Platelet Estimate PT INR APTT Specimen Type VBG pH VBG pO2 VBG HCO3 VBG Total CO2 VBG O2 Sat (Calc) VBG Base Excess POC Mix VBG pCO2 Pt Tmp Sodium Potassium Chloride Carbon Dioxide Anion Gap BUN Creatinine Estim Creat Clear Calc Est GFR (MDRD) Af Amer Est GFR (MDRD) Non-Af BUN/Creatinine Ratio Glucose Lactic Acid Calcium Magnesium Total Bilirubin AST ALT Alkaline Phosphatase Ammonia Total Creatine Kinase Troponin I Total Protein Albumin Globulin Albumin/Globulin Ratio TSH Urine Color Urine Clarity Urine pH Ur Specific [place] Urine Protein Urine Glucose (UA) Urine Ketones Urine Occult Blood Urine Nitrite Urine Bilirubin Urine Urobilinogen Ur Leukocyte Esterase Urine RBC Urine WBC Ur Squamous Epith Cells Amorphous Sediment Urine Bacteria Urine Mucus POC Glucose 272 H 353 H 295 H 02/17/21 02/17/21 02/17/21 05:00 05:00 05:00 WBC 1.1 L* RBC 2.75 L Hgb 8.6 L Hct 25.4 L MCV 92.4 MCH 31.3 MCHC 33.9 RDW Std Deviation 43.5 RDW Coeff of Valentina 12.9 Plt Count 47 L* MPV 12.9 H Immature Gran % (Auto) 0.900 Neut % (Auto) 59.7 Lymph % (Auto) 17.9 L [place] % (Auto) 18.8 H Eos % (Auto) 1.8 Baso % (Auto) 0.9 Absolute Neuts (auto) 0.7 L Absolute Lymphs (auto) 0.20 L Nucleated RBC % 0 Differential Comment SCANNED Diff Path Review May foll Platelet Estimate MKD DEC PT INR APTT Specimen Type VBG pH VBG pO2 VBG HCO3 VBG Total CO2 VBG O2 Sat (Calc) VBG Base Excess POC Mix VBG pCO2 Pt Tmp Sodium 139 Potassium 3.2 L Chloride 112 H Carbon Dioxide 20.0 L Anion Gap 7 BUN 32 H Creatinine 1.03 H Estim Creat Clear Calc 64.45 Est GFR (MDRD) Af Amer 72 Est GFR (MDRD) Non-Af 60 BUN/Creatinine Ratio 31.1 H Glucose 284 H Lactic Acid Calcium 7.2 L Magnesium 2.2 Total Bilirubin 1.60 H AST 47 H ALT 31 Alkaline Phosphatase 112 Ammonia Total Creatine Kinase Troponin I Total Protein 5.9 L Albumin 1.9 L Globulin 4.0 Albumin/Globulin Ratio 0.5 L TSH Urine Color Urine Clarity Urine pH Ur Specific [place] Urine Protein Urine Glucose (UA) Urine Ketones Urine Occult Blood Urine Nitrite Urine Bilirubin Urine Urobilinogen Ur Leukocyte Esterase Urine RBC Urine WBC Ur Squamous Epith Cells Amorphous Sediment Urine Bacteria Urine Mucus POC Glucose 02/17/21 06:30 WBC RBC Hgb Hct MCV MCH MCHC RDW Std Deviation RDW Coeff of Valentina Plt Count MPV Immature Gran % (Auto) Neut % (Auto) Lymph % (Auto) [place] % (Auto) Eos % (Auto) Baso % (Auto) Absolute Neuts (auto) Absolute Lymphs (auto) Nucleated RBC % Differential Comment Diff Path Review Platelet Estimate PT INR APTT Specimen Type VBG pH VBG pO2 VBG HCO3 VBG Total CO2 VBG O2 Sat (Calc) VBG Base Excess POC Mix VBG pCO2 Pt Tmp Sodium Potassium Chloride Carbon Dioxide Anion Gap BUN Creatinine Estim Creat Clear Calc Est GFR (MDRD) Af Amer Est GFR (MDRD) Non-Af BUN/Creatinine Ratio Glucose Lactic Acid Calcium Magnesium Total Bilirubin AST ALT Alkaline Phosphatase Ammonia Total Creatine Kinase Troponin I Total Protein Albumin Globulin Albumin/Globulin Ratio TSH Urine Color Urine Clarity Urine pH Ur Specific [place] Urine Protein Urine Glucose (UA) Urine Ketones Urine Occult Blood Urine Nitrite Urine Bilirubin Urine Urobilinogen Ur Leukocyte Esterase Urine RBC Urine WBC Ur Squamous Epith Cells Amorphous Sediment Urine Bacteria Urine Mucus POC Glucose 251 H Microbiology 02/15/21 10:45 Urine Catheter - Catheter Urine Culture - Final Meth. resistant Staph. aureus 02/15/21 10:46 Blood Culture (Wb) - Right Hand Blood Culture - Preliminary Staphylococcus aureus 02/15/21 10:45 Blood Culture (Wb) - Anticubital Left Bacteria Detection (PCR) - Final Staphylococcus aureus mecA Resistance Marker 02/15/21 10:45 Blood Culture (Wb) - Anticubital Left Blood Culture - Preliminary Meth. resistant Staph. aureus 02/15/21 10:45 Mucosa - Nose SARS-CoV-2 Antigen (Rapid) - Final Clinical Impression(s) from Imaging Studies Echocardiogram 02/16/21 09:24 Interpretation Summary Normal left ventricle. Left ventricular systolic function is normal. The estimated ejection fraction is 65 %. E/E' ratio is 14 increased left atrial filling pressure Ordering Physician: Jon Melendez Referring Physician: Janay Canchola Performed By: Natasha Arboleda, EFREN, RVT Medical Necessity - Tobacco Use Smoking Status: Never smoker Assessment/Plan All Active Problems Hepatic encephalopathy (Acute) Cellulitis (Acute) JULIANNE (acute kidney injury) (Acute) Acute UTI (Acute) Severe sepsis (Acute) Encephalopathy acute (Acute) MRSA bacteremia (Acute) RECOMMENDATIONS: 1. Continue antibiotics per infectious disease 2. Continue lactulose and rifaximin 3. Okay to reinitiate baseline medications in a stepwise fashion 4. Replete electrolytes as necessary 5. Sliding scale insulin only 6. Hemodynamically stable on room air. Will sign off from a critical care perspective IMPRESSIONS: 1. Acute hepatic encephalopathy secondary to severe sepsis secondary to UTI Patient with elevated ammonia. Patient was able to pass a bedside swallow evaluation, so we will proceed with lactulose and rifaximin. Patient has been placed empirically on antibiotics for probable UTI. Patient is growing staph aureus from the blood. Vancomycin was started and infectious disease is following. Mentation is much improved. Likely okay to reinitiate baclofen and Lyrica. 2. CKD stage III secondary to type 2 diabetes mellitus Unclear baseline. Patient did have acute kidney injury in the past with a creatinine as high as 4.2. We will continue to support hemodynamics and monitor closely. Would hold on basal insulin for now. Sliding scale insulin should be sufficient pending improvement in mental status 3. Autoimmune hepatitis/cirrhosis Patient appears to have a TIPS shunt in place on chest x-ray. This cannot be confirmed at this time. We will continue with lactulose and rifaximin. Patient does not have significant elevation in hepatic enzymes. Patient does not appear to have a significant amount of ascites on my evaluation. Chest x-ray is not suggestive of a significant pleural effusion. 4. Poor history/schizoaffective disorder/bipolar disorder Complicates care, management, recovery and prognosis. Hold on sedating medications for now given mental status Inpatient E&M: 64801 Subs Hosp L2
[2021-02-17] MEDS: rifAXIMin 550 MG Tablet PO ×2 (09:43→22:18)
[2021-02-17] MEDS: carBAMazepine 200 MG Tablet 100 MG PO ×2 (09:43→22:16)
[2021-02-17] MEDS: Potassium Chloride Oral Tablet 20 MEQ 60 MEQ PO (09:44)
[2021-02-17] MEDS: Spironolactone 50 MG Tablet 100 MG PO (09:44)
[2021-02-17] MEDS: Menthol/Lanolin/Calamine/Znox 113 GM Tube 1 APPLIC TOPICAL ×2 (09:45→22:24)
[2021-02-17 11:10] LABS: Bedside Glucose 286 mg/dL (70-110)
[2021-02-17 11:26] LABS: Pathologist Review Reviewed
--- NOTE | 2021-02-17 13:05 | PCM.PN.ID ---
Patient Problems: Active and Suspected Problems Hepatic encephalopathy (Acute) JULIANNE (acute kidney injury) (Acute) Acute UTI (Acute) Severe sepsis (Acute) Encephalopathy acute (Acute) MRSA bacteremia (Acute) Subjective: Feeling a little better, no fever, no abd pain, no sore throat - Physical Exam Vitals/I&O's: Vital Signs Temp Pulse Resp BP Pulse Ox 98.3 F 74 18 117/59 L 99 02/17/21 09:35 02/17/21 09:35 02/17/21 09:35 02/17/21 09:35 02/17/21 09:35 Oxygen Delivery Method Room Air Weight: 86.1 kg Body Mass Index (BMI) 27.7 Finger Stick Blood Glucose 217 Intake and Output for Last 24 Hours 02/15/21 02/16/21 02/17/21 23:59 23:59 23:59 Intake Total 2212.5 / 2682.5 3166.92 / 3166.92 648.5 / 648.5 Output Total 450 / 550 385 / 385 Balance 1762.5 / 2132.5 2781.92 / 2781.92 648.5 / 648.5 General: Alert, Cooperative, No apparent distress Lungs: Clear to auscultation, Normal air movement Cardiovascular: Regular rate, Regular Rhythm Abdomen: Soft, Non Tender, Non-Distended Skin: No rashes Microbiology Past 72 Hours 02/15/21 10:45 Urine Catheter - Catheter Urine Culture - Final Meth. resistant Staph. aureus 02/15/21 10:46 Blood Culture (Wb) - Right Hand Blood Culture - Preliminary Staphylococcus aureus 02/15/21 10:45 Blood Culture (Wb) - Anticubital Left Bacteria Detection (PCR) - Final Staphylococcus aureus mecA Resistance Marker 02/15/21 10:45 Blood Culture (Wb) - Anticubital Left Blood Culture - Preliminary Meth. resistant Staph. aureus 02/15/21 10:45 Mucosa - Nose SARS-CoV-2 Antigen (Rapid) - Final Laboratory Results 02/16/21 16:25: POC Glucose 353 H 02/16/21 20:29: POC Glucose 295 H 02/17/21 05:00: WBC 1.1 L*, RBC 2.75 L, Hgb 8.6 L, Hct 25.4 L, MCV 92.4, MCH 31.3, MCHC 33.9, RDW Std Deviation 43.5, RDW Coeff of Valentina 12.9, Plt Count 47 L*, MPV 12.9 H, Immature Gran % (Auto) 0.900, Neut % (Auto) 59.7, Lymph % (Auto) 17.9 L, [place] % (Auto) 18.8 H, Eos % (Auto) 1.8, Baso % (Auto) 0.9, Absolute Neuts (auto) 0.7 L, Absolute Lymphs (auto) 0.20 L, Nucleated RBC % 0, Differential Comment SCANNED, Diff Path Review Reviewed, Platelet Estimate MKD 02/17/21 05:00: Sodium 139, Potassium 3.2 L, Chloride 112 H, Carbon Dioxide 20.0 L, Anion Gap 7, BUN 32 H, Creatinine 1.03 H, Estim Creat Clear Calc 64.45, Est GFR (MDRD) Af Amer 72, Est GFR (MDRD) Non-Af 60, BUN/Creatinine Ratio 31.1 H, Glucose 284 H, Calcium 7.2 L, Total Bilirubin 1.60 H, AST 47 H, ALT 31, Alkaline Phosphatase 112, Total Protein 5.9 L, Albumin 1.9 L, Globulin 4.0, Albumin/Globulin Ratio 0.5 L 02/17/21 05:00: Magnesium 2.2 02/17/21 06:30: POC Glucose 251 H 02/17/21 11:00: POC Glucose 286 H Current Medications Acetaminophen (Acetaminophen 325 Mg Tablet) 650 mg PO Q8H PRN PRN PRN Reason: Pain Score 1-10/Temp > 100.7 F Last Admin: 02/17/21 06:07 Dose: 650 mg Documented by: Albuterol Sulfate (Albuterol 2.5 Mg/3 Ml Vial.Neb.) 2.5 mg INHALATION Q2H PRN PRN PRN Reason: SOB/Wheezing Calamine/Phenol (Menthol/Lanolin/Calamine/Znox 113 Gm Tube) 1 applic TOPICAL BID YONI; Protocol Last Admin: 02/17/21 09:45 Dose: 1 applic Documented by: Carbamazepine (Carbamazepine 200 Mg Tablet) 100 mg PO BID YONI Last Admin: 02/17/21 09:43 Dose: 100 mg Documented by: Dextrose (Dextrose 50%-Water 25 Gm/50 Ml Disp.Syrin) 0 gm IV X1 PRN; Protocol PRN Reason: Hypoglycemia Dicyclomine HCl (Dicyclomine 10 Mg Capsule) 10 mg PO [facility] Last Admin: 02/17/21 11:20 Dose: 10 mg Documented by: Docusate Sodium (Docusate Sodium 100 Mg Capsule) 100 mg PO BID PRN PRN PRN Reason: Constipation Glucagon (Glucagon 1 Mg/Ml Syringe) 1 mg IM .X1 PRN PRN Reason: Hypoglycemia Vancomycin IV Pharmacy to Dose (1 each/ Sodium Chloride) 500 mls @ 250 mls/hr IV PRN PRN; Protocol PRN Reason: Rx to Dose Vancomycin HCl () 500 mg in 100 mls @ 100 mls/hr IV Q12H [facility] Last Infusion: 02/17/21 02:48 Dose: Infused Documented by: Sodium Chloride () 250 mls @ 15 mls/hr IV .[id number] PRN PRN Reason: Saline Flush Last Infusion: 02/17/21 07:35 Dose: Infused Documented by: Sodium Chloride () 250 mls @ 15 mls/hr IV .[id number] PRN PRN Reason: Additional IVPB Infusion Last Infusion: 02/16/21 10:59 Dose: Infused Documented by: Insulin Glargine (Insulin Glargine 100 Units/Ml Pen) 10 units SC DAILY [facility] Last Admin: 02/17/21 11:19 Dose: 10 u Documented by: Insulin Human Lispro (Insulin Lispro 100 Unit/Ml Insuln.Pen) 0 unit SC [facility]; Protocol Last Admin: 02/17/21 11:19 Dose: 4 units Documented by: Lactulose (Lactulose 20 Gm/30 Ml Udc) 20 gm PO TID [facility] Last Admin: 02/17/21 06:08 Dose: Not Given Documented by: Rifaximin (Rifaximin 550 Mg Tablet) 550 mg PO BID [facility] Last Admin: 02/17/21 09:43 Dose: 550 mg Documented by: Sodium Chloride (0.9% Saline Lock 10 Ml Syringe) 10 - 40 ml IV UD PRN PRN Reason: SALINE FLUSH Spironolactone (Spironolactone 50 Mg Tablet) 100 mg PO DAILY [facility] Last Admin: 02/17/21 09:44 Dose: 100 mg Documented by: Tramadol HCl (Tramadol 50 Mg Tablet) 50 mg PO Q6H PRN PRN PRN Reason: PAIN 1-10/10 Medical Necessity - Tobacco Use Smoking Status: Never smoker Route of nutrition/ use of supplements: [] Nutritional Intake: [] IV Site: [] Hill Catheter: [] - Assessment/Plan Antibiotics: [] Assessment/Plan: [] Active and Suspected Problems Hepatic encephalopathy (Acute) JULIANNE (acute kidney injury) (Acute) Acute UTI (Acute) Severe sepsis (Acute) Encephalopathy acute (Acute) severe sepsis due to MRSA bacteremia and h/o cirrhosis - cont vanc, will stop zosyn. Now neutropenic but fever resolved. No sign of SBP at this point. Will check repeat bcx. TTE neg for veg. Reports h/o heart murmur. May need ERIC. Will follow
--- NOTE | 2021-02-17 13:51 | CASEMGMT ---
TAMIKO MELLO NOTE: Pt qualifies for a Palliative referral per the [facility] palliative screening tool at this time. Dr Davenport aware and states ok for Palliative c/s at this time. Order placed. Palliative updated at this time. Face Sheet faxed to Palliative at this time. Malou VILLALOBOS RN CM
[2021-02-17] MEDS: Lactulose 20 GM/30 ML UDC PO ×2 (14:54→22:17)
[2021-02-17] MEDS: traMADol 50 MG Tablet PO ×2 (14:54→22:18)
--- NOTE | 2021-02-17 15:49 | PCM.PN.HOSP ---
Patient Problems: Active and Suspected Problems Hepatic encephalopathy (Acute) JULIANNE (acute kidney injury) (Acute) Acute UTI (Acute) Severe sepsis (Acute) Encephalopathy acute (Acute) MRSA bacteremia (Acute) Reason for Visit: Follow-up on acute metabolic and hepatic encephalopathy Subjective: Patient was seen and examined. She feels much improved. Her temperatures are better. Denied any fever or chills. Complaining of pain in her right lower thigh. This is chronic. Wants her tramadol resumed. Objective: Physical exam: General: Cooperative, No apparent distress, well, alert, oriented x3 HEENT: Atraumatic, PERRLA, EOMI, Normocephalic Oral: Moist Mucosa Neck: Supple Lungs: Clear to auscultation Cardiovascular: Regular rate, Regular Rhythm, Normal S1, Normal S2, No murmurs Abdomen: Bowel Sounds Present, Soft, Non Tender, Non-Distended, No Hepato-splenomegaly Extremities: No edema Skin: No rashes Musculoskeletal: No Tenderness to Palpation of Joints or Extremities Lymphatic: No Cervical, Supraclavicular, or Inguinal Adenopathy Neurological: Cranial nerves II-XII grossly intact, Neuro grossly intact Psych/Mental Status: Normal Affect, Appropriate Vitals/I&O's: Vital Signs Temp Pulse Resp BP Pulse Ox 97.8 F 77 19 H 129/52 H 100 02/17/21 15:35 02/17/21 15:35 02/17/21 15:35 02/17/21 15:35 02/17/21 15:35 Oxygen Delivery Method Room Air Weight: 86.1 kg Body Mass Index (BMI) 27.7 Finger Stick Blood Glucose 217 Intake and Output for Last 24 Hours 02/15/21 02/16/21 02/17/21 23:59 23:59 23:59 Intake Total 2212.5 / 2682.5 3166.92 / 3166.92 1008.5 / 1008.5 Output Total 450 / 550 385 / 385 Balance 1762.5 / 2132.5 2781.92 / 2781.92 1008.5 / 1008.5 Microbiology Past 72 Hours 02/15/21 10:45 Urine Catheter - Catheter Urine Culture - Final Meth. resistant Staph. aureus 02/15/21 10:46 Blood Culture (Wb) - Right Hand Blood Culture - Preliminary Staphylococcus aureus 02/15/21 10:45 Blood Culture (Wb) - Anticubital Left Bacteria Detection (PCR) - Final Staphylococcus aureus mecA Resistance Marker 02/15/21 10:45 Blood Culture (Wb) - Anticubital Left Blood Culture - Preliminary Meth. resistant Staph. aureus 02/15/21 10:45 Mucosa - Nose SARS-CoV-2 Antigen (Rapid) - Final Laboratory Results 02/16/21 16:25: POC Glucose 353 H 02/16/21 20:29: POC Glucose 295 H 02/17/21 05:00: WBC 1.1 L*, RBC 2.75 L, Hgb 8.6 L, Hct 25.4 L, MCV 92.4, MCH 31.3, MCHC 33.9, RDW Std Deviation 43.5, RDW Coeff of Valentina 12.9, Plt Count 47 L*, MPV 12.9 H, Immature Gran % (Auto) 0.900, Neut % (Auto) 59.7, Lymph % (Auto) 17.9 L, Larue % (Auto) 18.8 H, Eos % (Auto) 1.8, Baso % (Auto) 0.9, Absolute Neuts (auto) 0.7 L, Absolute Lymphs (auto) 0.20 L, Nucleated RBC % 0, Differential Comment SCANNED, Diff Path Review Reviewed, Platelet Estimate MKD 02/17/21 05:00: Sodium 139, Potassium 3.2 L, Chloride 112 H, Carbon Dioxide 20.0 L, Anion Gap 7, BUN 32 H, Creatinine 1.03 H, Estim Creat Clear Calc 64.45, Est GFR (MDRD) Af Amer 72, Est GFR (MDRD) Non-Af 60, BUN/Creatinine Ratio 31.1 H, Glucose 284 H, Calcium 7.2 L, Total Bilirubin 1.60 H, AST 47 H, ALT 31, Alkaline Phosphatase 112, Total Protein 5.9 L, Albumin 1.9 L, Globulin 4.0, Albumin/Globulin Ratio 0.5 L 02/17/21 05:00: Magnesium 2.2 02/17/21 06:30: POC Glucose 251 H 02/17/21 11:00: POC Glucose 286 H 02/17/21 14:05: Vancomycin Trough 10.0 Current Medications Acetaminophen (Acetaminophen 325 Mg Tablet) 650 mg PO Q8H PRN PRN PRN Reason: Pain Score 1-10/Temp > 100.7 F Last Admin: 02/17/21 14:53 Dose: 650 mg Documented by: Albuterol Sulfate (Albuterol 2.5 Mg/3 Ml Vial.Neb.) 2.5 mg INHALATION Q2H PRN PRN PRN Reason: SOB/Wheezing Calamine/Phenol (Menthol/Lanolin/Calamine/Znox 113 Gm Tube) 1 applic TOPICAL BID [facility]; Protocol Last Admin: 02/17/21 09:45 Dose: 1 applic Documented by: Carbamazepine (Carbamazepine 200 Mg Tablet) 100 mg PO BID [facility] Last Admin: 02/17/21 09:43 Dose: 100 mg Documented by: Dextrose (Dextrose 50%-Water 25 Gm/50 Ml Disp.Syrin) 0 gm IV X1 PRN; Protocol PRN Reason: Hypoglycemia Dicyclomine HCl (Dicyclomine 10 Mg Capsule) 10 mg PO [facility] Last Admin: 02/17/21 11:20 Dose: 10 mg Documented by: Docusate Sodium (Docusate Sodium 100 Mg Capsule) 100 mg PO BID PRN PRN PRN Reason: Constipation Glucagon (Glucagon 1 Mg/Ml Syringe) 1 mg IM .X1 PRN PRN Reason: Hypoglycemia Vancomycin IV Pharmacy to Dose (1 each/ Sodium Chloride) 500 mls @ 250 mls/hr IV PRN PRN; Protocol PRN Reason: Rx to Dose Vancomycin HCl () 500 mg in 100 mls @ 100 mls/hr IV Q12H [facility] Last Admin: 02/17/21 15:31 Dose: 100 mls/hr Documented by: Sodium Chloride () 250 mls @ 15 mls/hr IV .[id number] PRN PRN Reason: Saline Flush Last Admin: 02/17/21 15:32 Dose: 15 mls/hr Documented by: Sodium Chloride () 250 mls @ 15 mls/hr IV .[id number] PRN PRN Reason: Additional IVPB Infusion Last Infusion: 02/16/21 10:59 Dose: Infused Documented by: Insulin Glargine (Insulin Glargine 100 Units/Ml Pen) 10 units SC DAILY [facility] Last Admin: 02/17/21 11:19 Dose: 10 u Documented by: Insulin Human Lispro (Insulin Lispro 100 Unit/Ml Insuln.Pen) 0 unit SC ACHS [facility]; Protocol Last Admin: 02/17/21 11:19 Dose: 4 units Documented by: Lactulose (Lactulose 20 Gm/30 Ml Udc) 20 gm PO TID [facility] Last Admin: 02/17/21 14:54 Dose: 20 gm Documented by: Rifaximin (Rifaximin 550 Mg Tablet) 550 mg PO BID [facility] Last Admin: 02/17/21 09:43 Dose: 550 mg Documented by: Sodium Chloride (0.9% Saline Lock 10 Ml Syringe) 10 - 40 ml IV UD PRN PRN Reason: SALINE FLUSH Spironolactone (Spironolactone 50 Mg Tablet) 100 mg PO DAILY [facility] Last Admin: 02/17/21 09:44 Dose: 100 mg Documented by: Tramadol HCl (Tramadol 50 Mg Tablet) 50 mg PO Q6H PRN PRN PRN Reason: PAIN 1-08/27 Last Admin: 02/17/21 14:54 Dose: 50 mg Documented by: STROKE Vital Signs/Narrative: Vital Signs Temp Pulse Resp BP Pulse Ox 02/17/21 15:35 97.8 F 77 19 H 129/52 H 100 02/17/21 15:00 78 Medical Necessity - Tobacco Use Smoking Status: Never smoker Assessment/Plan All Active Problems Hepatic encephalopathy (Acute) Cellulitis (Acute) JULIANNE (acute kidney injury) (Acute) Acute UTI (Acute) Severe sepsis (Acute) Encephalopathy acute (Acute) MRSA bacteremia (Acute) 1. Acute metabolic encephalopathy, resolved Continue to monitor mentation 2. MRSA bacteremia/Severe sepsis secondary to acute staph aureus UTI, Continue on IV vancomycin; off IV Zosyn Repeat blood cultures pending, ID following 2D echo showed normal EF, no valvular lesions. 3. Pancytopenia with absolute neutrophil count of 700, secondary to #2 We will continue on IV vancomycin, continue to monitor 3. Acute hepatic encephalopathy, patient with autoimmune hepatitis, cirrhosis of the liver with varices, improving Will continue lactulose, rifaximin, spironolactone 4. Type II DM, blood glucose are fairly uncontrolled, will resume on home regimen - Lantus with premeal insulin 5. Hypokalemia, potassium is 3.2, replace, recheck in a.m. 6. CKD stage III, remains close to baseline, repeat blood work in am 7. Chronic thrombocytopenia secondary to liver cirrhosis, hold off on heparin, P blood work in a.m. 8. DVT PPx- SCDs Inpatient E&M: 46025 Subs Hosp L2
--- NOTE | 2021-02-17 15:54 | PHA.PHARE_ITS ---
Consult Pharmacy has been consulted to manage selected antiobiotic: Vancomycin Type of Consult: Follow-up Suspected Infection: Sepsis, Bacteremia Prior Doses of Antibiotics Received/Current Regimen: Currently on 500mg iv q12h. Labs: Sodium 139 mmol/L (136-145) 02/17/21 05:00 Potassium 3.2 mmol/L (3.5-5.1) L 02/17/21 05:00 Chloride 112 mmol/L (98-107) H 02/17/21 05:00 Carbon Dioxide 20.0 mmol/L (21.0-32.0) L 02/17/21 05:00 Anion Gap 7 (5-15) 02/17/21 05:00 BUN 32 mg/dL (7-18) H 02/17/21 05:00 Creatinine 1.03 mg/dL (0.55-1.02) H 02/17/21 05:00 Est GFR (MDRD) Af Amer 72 mL/min (>60) 02/17/21 05:00 Est GFR (MDRD) Non-Af 60 mL/min (>60) 02/17/21 05:00 BUN/Creatinine Ratio 31.1 RATIO (10-20) H 02/17/21 05:00 Glucose 284 mg/dL (74-106) H 02/17/21 05:00 Vancomycin Trough 10.0 ug/mL (5.0-15.0) 02/17/21 14:05 Microbiology: Microbiology 02/15/21 10:45 Urine Catheter - Catheter Urine Culture - Final Meth. resistant Staph. aureus 02/15/21 10:46 Blood Culture (Wb) - Right Hand Blood Culture - Preliminary Staphylococcus aureus 02/15/21 10:45 Blood Culture (Wb) - Anticubital Left Bacteria Detection (PCR) - Final Staphylococcus aureus mecA Resistance Marker 02/15/21 10:45 Blood Culture (Wb) - Anticubital Left Blood Culture - Preliminary Meth. resistant Staph. aureus 02/15/21 10:45 Mucosa - Nose SARS-CoV-2 Antigen (Rapid) - Final Weight used for dosin kg Estimated Creatinine Clearance: ~65 ml/min Goal Trough: 15-20 mcg/mL Pharmacy Plan for Drug Dosing: Renal improved from Cr 1.5 to 1.03. Trough today was low at 10.0 (goal range 15- 20 mcg/ml). Will increase dose to 750mg iv q12h. Another trough level ordered for 4.4.21 before 4th dose of new regimen. Pharmacy Service will continue to monitor and adjust dosing as required. Follow-Up Labs: Trough Vancomycin - 4.4.21 @1430 before 1500 dose
[2021-02-17] MEDS: Insulin Lispro 100 UNIT/ML INSULN.PEN 12 UNIT SC ×2 (17:23→21:08)
[2021-02-17 17:30] LABS: Bedside Glucose 350 mg/dL (70-110)
[2021-02-17 21:36] LABS: Bedside Glucose 234 mg/dL (70-110)
[2021-02-18] VITALS (9 sets, daily range): BP systolic 123–139; BP diastolic 59–74; PULSE 80–84; RESP 16–18; TEMP 36.4–36.9; O2SAT 96–100
--- NOTE | 2021-02-18 04:27 | NURSING ---
IV VANCOMYCIN STARTED LATE D/T NEED FOR NEW IV ACCESS, PREVIOUS SITE TO LEFT AC WAS LEAKING. ATTEMPTED ACCESS X2. UNSUCCESSFUL. RIVAS RN ALSO ATTEMPTED UNSUCCESSFULLY. IV WAS STARTED BY NURSING INSURANCE ACCOUNT SPECIALIST ALEIDA.
[2021-02-18] MEDS: Dicyclomine 10 MG Capsule PO ×4 (05:48→21:36)
[2021-02-18 05:55] LABS: Absolute Lymphocyte Count 0.32 X10^3/uL (0.83-4.51); Absolute Neutrophil Count 0.6 X10^3/uL (2.0-7.7); Basophil# 0.02 X10^3/uL; Basophil% 1.6 % (0-1); Eosinophil# 0.04 X10^3/uL; Eosinophils% 3.1 % (0-5); Hematocrit 25.5 % (37-47); Hemoglobin 8.4 g/dL (12.0-15.0); Lymphocyte # 0.32 X10^3/ul (4.0); Lymphocyte % 24.8 % (19-41); Mean Corp Hgb Conc 32.9 g/dL (32-36); Mean Corpuscular Hgb 30.5 pg (27.0-32.0); Mean Corpuscular Volume 92.7 fL (81-99); Monocyte# 0.29 X10^3/uL; Monocyte% 22.5 % (0-10); NRBC Flagged by Analyzer 0 % (0-5); Neutrophil # 0.61 X10^3/uL (2.7-7.7); Neutrophil % 47.2 % (47-70); POSITIVE COUNT YES; POSITIVE DIFFERENTIAL YES; RBC Distribution Width CV 13.1 % (11.6-14.6); RBC Distribution Width SD 44.2 fl (35.1-43.9); Red Blood Count 2.75 M/mm3 (4.2-5.4)
[2021-02-18 05:59] LABS: Differential Indicated SCAN CRITERIA MET; Platelet Count 49 K/mm3 (150-450); White Blood Count 1.3 K/mm3 (4.4-11.0)
[2021-02-18 06:29] LABS: ALB/GLOB Ratio 0.5 RATIO (0.9-2.4); AST(SGOT) 48 U/L (15-37); Alanine Aminotransfer ALT/SGPT 32 U/L (13-56); Alkaline Phosphatase 171 U/L (45-117); Anion Gap 4 (5-15); BUN 26 mg/dL (7-18); Calcium,Total 7.7 mg/dL (8.5-10.1); Chloride 111 mmol/L (98-107); Creatinine, Serum 0.96 mg/dL (0.55-1.02); EST Glomerular Filtration Rate 65 mL/min (>60); Est Glom Filt Rate - Afr Amer 78 mL/min (>60); Estimated Creatinine Clearance 69.15 ml/min; Globulin 3.9 g/dL (2.2-4.2); Glucose 292 mg/dL (74-106); Potassium 3.4 mmol/L (3.5-5.1); Protein, Total 5.9 g/dL (6.4-8.2); Sodium Level 138 mmol/L (136-145)
[2021-02-18 06:35] LABS: Differential Comment SCANNED; Platelet Estimate MKD DEC (ADEQ)
--- NOTE | 2021-02-18 07:32 | PCM.PN.HOSP ---
Patient Problems: Active and Suspected Problems Hepatic encephalopathy (Acute) JULIANNE (acute kidney injury) (Acute) Acute UTI (Acute) Severe sepsis (Acute) Encephalopathy acute (Acute) MRSA bacteremia (Acute) Reason for Visit: Follow-up on acute metabolic and hepatic encephalopathy Subjective: Patient was seen and examined. She complains of severe nausea with lactulose. Otherwise, no fever. Objective: Physical exam: General: Cooperative, No apparent distress, well, alert, oriented x3 HEENT: Atraumatic, PERRLA, EOMI, Normocephalic Oral: Moist Mucosa Neck: Supple Lungs: Clear to auscultation Cardiovascular: Regular rate, Regular Rhythm, Normal S1, Normal S2, No murmurs Abdomen: Bowel Sounds Present, Soft, Non Tender, Non-Distended, No Hepato-splenomegaly Extremities: No edema Skin: No rashes Musculoskeletal: No Tenderness to Palpation of Joints or Extremities Lymphatic: No Cervical, Supraclavicular, or Inguinal Adenopathy Neurological: Cranial nerves II-XII grossly intact, Neuro grossly intact Psych/Mental Status: Normal Affect, Appropriate Vitals/I&O's: Vital Signs Temp Pulse Resp BP Pulse Ox 98.4 F 81 16 139/69 H 96 02/18/21 03:09 02/18/21 03:09 02/18/21 03:09 02/18/21 03:09 02/18/21 03:09 Oxygen Delivery Method Room Air Weight: 88 kg Body Mass Index (BMI) 27.7 Finger Stick Blood Glucose 217 Intake and Output for Last 24 Hours 02/16/21 02/17/21 02/18/21 23:59 23:59 23:59 Intake Total 3166.92 / 3166.92 1491.25 / 1891.25 865 / 865 Output Total 385 / 385 Balance 2781.92 / 2781.92 1491.25 / 1891.25 865 / 865 Microbiology Past 72 Hours 02/16/21 10:10 Blood Culture (Wb) - Anticubital Right Blood Culture - Preliminary No growth in 48 hours. 02/15/21 10:46 Blood Culture (Wb) - Right Hand Blood Culture - Final Staphylococcus aureus 02/15/21 10:45 Blood Culture (Wb) - Anticubital Left Bacteria Detection (PCR) - Final Staphylococcus aureus mecA Resistance Marker 02/15/21 10:45 Blood Culture (Wb) - Anticubital Left Blood Culture - Final Meth. resistant Staph. aureus 02/15/21 10:45 Urine Catheter - Catheter Urine Culture - Final Meth. resistant Staph. aureus 02/15/21 10:45 Mucosa - Nose SARS-CoV-2 Antigen (Rapid) - Final Laboratory Results 02/17/21 05:00: Diff Path Review Reviewed 02/17/21 05:00: Magnesium 2.2 02/17/21 11:00: POC Glucose 286 H 02/17/21 14:05: Vancomycin Trough 10.0 02/17/21 17:22: POC Glucose 350 H 02/17/21 21:03: POC Glucose 234 H 02/18/21 05:12: WBC 1.3 L*, RBC 2.75 L, Hgb 8.4 L, Hct 25.5 L, MCV 92.7, MCH 30.5, MCHC 32.9, RDW Std Deviation 44.2 H, RDW Coeff of Valentina 13.1, Plt Count 49 L*, MPV 13.0 H, Immature Gran % (Auto) 0.800, Neut % (Auto) 47.2, Lymph % (Auto) 24.8, Hale % (Auto) 22.5 H, Eos % (Auto) 3.1, Baso % (Auto) 1.6 H, Absolute Neuts (auto) 0.6 L, Absolute Lymphs (auto) 0.32 L, Nucleated RBC % 0, Differential Comment SCANNED, Diff Path Review March, Platelet Estimate MKD 02/18/21 05:12: Sodium 138, Potassium 3.4 L, Chloride 111 H, Carbon Dioxide 23.0, Anion Gap 4 L, BUN 26 H, Creatinine 0.96, Estim Creat Clear Calc 69.15, Est GFR (MDRD) Af Amer 78, Est GFR (MDRD) Non-Af 65, BUN/Creatinine Ratio 27.0 H, Glucose 292 H, Calcium 7.7 L, Total Bilirubin 1.10 H, AST 48 H, ALT 32, Alkaline Phosphatase 171 H, Total Protein 5.9 L, Albumin 2.0 L, Globulin 3.9, Albumin/Globulin Ratio 0.5 L Current Medications Acetaminophen (Acetaminophen 325 Mg Tablet) 650 mg PO Q8H PRN PRN PRN Reason: Pain Score 1-10/Temp > 100.7 F Last Admin: 02/17/21 23:39 Dose: 650 mg Documented by: Albuterol Sulfate (Albuterol 2.5 Mg/3 Ml Vial.Neb.) 2.5 mg INHALATION Q2H PRN PRN PRN Reason: SOB/Wheezing Calamine/Phenol (Menthol/Lanolin/Calamine/Znox 113 Gm Tube) 1 applic TOPICAL BID [facility]; Protocol Last Admin: 02/17/21 22:24 Dose: 1 applic Documented by: Carbamazepine (Carbamazepine 200 Mg Tablet) 100 mg PO BID [facility] Last Admin: 02/17/21 22:16 Dose: 100 mg Documented by: Dextrose (Dextrose 50%-Water 25 Gm/50 Ml Disp.Syrin) 0 gm IV X1 PRN; Protocol PRN Reason: Hypoglycemia Dicyclomine HCl (Dicyclomine 10 Mg Capsule) 10 mg PO [facility] Last Admin: 02/18/21 05:48 Dose: 10 mg Documented by: Docusate Sodium (Docusate Sodium 100 Mg Capsule) 100 mg PO BID PRN PRN PRN Reason: Constipation Glucagon (Glucagon 1 Mg/Ml Syringe) 1 mg IM .X1 PRN PRN Reason: Hypoglycemia Vancomycin IV Pharmacy to Dose (1 each/ Sodium Chloride) 500 mls @ 250 mls/hr IV PRN PRN; Protocol PRN Reason: Rx to Dose Sodium Chloride () 250 mls @ 15 mls/hr IV .[id number] PRN PRN Reason: Saline Flush Last Infusion: 02/17/21 18:02 Dose: 0 mls/hr Documented by: Sodium Chloride () 250 mls @ 15 mls/hr IV .[id number] PRN PRN Reason: Additional IVPB Infusion Last Infusion: 02/16/21 10:59 Dose: Infused Documented by: Vancomycin HCl 750 mg/ Sodium (Chloride) 265 mls @ 250 mls/hr IV Q12H [facility] Last Infusion: 02/18/21 05:31 Dose: Infused Documented by: Insulin Glargine (Insulin Glargine 100 Units/Ml Pen) 10 units SC BID [facility] Last Admin: 02/17/21 21:10 Dose: 10 u Documented by: Insulin Human Lispro (Insulin Lispro 100 Unit/Ml Insuln.Pen) 0 unit SC ACHS [facility]; Protocol Last Admin: 02/17/21 21:09 Dose: 3 units Documented by: Insulin Human Lispro (Insulin Lispro 100 Unit/Ml Insuln.Pen) 12 unit SC ACHS [facility] Last Admin: 02/17/21 21:08 Dose: 12 u Documented by: Lactulose (Lactulose 20 Gm/30 Ml Udc) 20 gm PO TIDCM [facility] Potassium Chloride (Potassium Chloride Oral Tablet 20 Meq) 60 meq PO X1 ONE Stop: 02/18/21 07:31 Rifaximin (Rifaximin 550 Mg Tablet) 550 mg PO BID [facility] Last Admin: 02/17/21 22:18 Dose: 550 mg Documented by: Sodium Chloride (0.9% Saline Lock 10 Ml Syringe) 10 - 40 ml IV UD PRN PRN Reason: SALINE FLUSH Spironolactone (Spironolactone 50 Mg Tablet) 100 mg PO DAILY [facility] Last Admin: 02/17/21 09:44 Dose: 100 mg Documented by: Tramadol HCl (Tramadol 50 Mg Tablet) 50 mg PO Q6H PRN PRN PRN Reason: PAIN 1-08/27 Last Admin: 02/17/21 22:18 Dose: 50 mg Documented by: Medical Necessity - Tobacco Use Smoking Status: Never smoker Assessment/Plan All Active Problems Hepatic encephalopathy (Acute) Cellulitis (Acute) JULIANNE (acute kidney injury) (Acute) Acute UTI (Acute) Severe sepsis (Acute) Encephalopathy acute (Acute) MRSA bacteremia (Acute) 1. Acute metabolic encephalopathy, resolved 2. MRSA bacteremia/severe sepsis secondary to acute staph aureus UTI, Continue on IV vancomycin; off IV Zosyn Repeat blood cultures pending, ID following 2D echo showed normal EF, no valvular lesions. 3. Pancytopenia with absolute neutrophil count of 600, secondary to #2 Continue on IV vancomycin, continue to monitor 3. Acute hepatic encephalopathy, with autoimmune hepatitis, cirrhosis of the liver with varices, improving Continue lactulose, rifaximin, spironolactone 4. Type II DM, blood glucose are fairly uncontrolled, Continue to Lantus with premeal insulin 5. Hypokalemia, potassium is 3.4, replaced, recheck in a.m. 6. CKD stage III, remains close to baseline, repeat blood work in am 7. Chronic thrombocytopenia secondary to liver cirrhosis, hold off on heparin, repeat blood work in a.m. 8. DVT PPx- SCDs Inpatient E&M: [id number] Subs Hosp L2
[2021-02-18] MEDS: Insulin Lispro 100 UNIT/ML INSULN.PEN SC ×3 (08:01→21:36)
[2021-02-18] MEDS: Insulin Lispro 100 UNIT/ML INSULN.PEN 12 UNIT SC ×4 (08:01→21:36)
[2021-02-18] MEDS: Potassium Chloride Oral Tablet 20 MEQ 60 MEQ PO (08:04)
[2021-02-18] MEDS: rifAXIMin 550 MG Tablet PO ×2 (08:05→21:39)
[2021-02-18] MEDS: Spironolactone 50 MG Tablet 100 MG PO (08:05)
[2021-02-18] MEDS: carBAMazepine 200 MG Tablet 100 MG PO ×2 (08:06→21:39)
[2021-02-18] MEDS: Menthol/Lanolin/Calamine/Znox 113 GM Tube 1 APPLIC TOPICAL ×2 (08:07→21:34)
[2021-02-18] MEDS: Ondansetron 4 MG/2 ML Vial IV (10:30)
[2021-02-18 11:41] LABS: Bedside Glucose 242 mg/dL (70-110)
--- NOTE | 2021-02-18 12:06 | DIALYSIS ---
HD X 4 HOURS ON 3K BATH. UF-1000ML. TOLERATED WELL. VITALS STABLE EPOGEN 4000UNITS GIVEN. REPORT TO FLOOR RN
[2021-02-18] MEDS: Nystatin Powder 15gm Bottle 1 APPLIC TOPICAL ×2 (14:36→21:33)
[2021-02-18 16:26] LABS: Bedside Glucose 237 mg/dL (70-110)
[2021-02-18 19:21] LABS: Bedside Glucose 138 mg/dL (70-110)
[2021-02-18] MEDS: traMADol 50 MG Tablet PO (21:38)
[2021-02-18] MEDS: Acetaminophen 325 MG Tablet 650 MG PO (21:38)
[2021-02-18 22:55] LABS: Bedside Glucose 189 mg/dL (70-110)
[2021-02-19] VITALS (8 sets, daily range): BP systolic 118–157; BP diastolic 59–75; PULSE 76–84; RESP 18–20; TEMP 36.7–36.8; O2SAT 96–100
[2021-02-19] MEDS: 0.9% Saline Lock 10 ML Syringe IV ×2 (03:26→21:24)
[2021-02-19] MEDS: Dicyclomine 10 MG Capsule PO ×4 (06:12→21:15)
[2021-02-19] MEDS: Nystatin Powder 15gm Bottle 1 APPLIC TOPICAL ×2 (06:12→21:17)
[2021-02-19] MEDS: Acetaminophen 325 MG Tablet 650 MG PO ×2 (08:19→21:16)
[2021-02-19] MEDS: Insulin Lispro 100 UNIT/ML INSULN.PEN SC ×4 (08:20→21:19)
[2021-02-19] MEDS: Insulin Lispro 100 UNIT/ML INSULN.PEN 12 UNIT SC ×4 (08:20→21:19)
[2021-02-19 08:21] LABS: Absolute Lymphocyte Count 0.81 X10^3/uL (0.83-4.51); Basophil# 0.04 X10^3/uL; Basophil% 1.2 % (0-1); Eosinophil# 0.13 X10^3/uL; Eosinophils% 3.8 % (0-5); Hematocrit 26.9 % (37-47); Lymphocyte # 0.81 X10^3/ul (4.0); Lymphocyte % 23.9 % (19-41); Mean Corp Hgb Conc 33.5 g/dL (32-36); Mean Corpuscular Hgb 30.9 pg (27.0-32.0); Mean Corpuscular Volume 92.4 fL (81-99); Mean Platelet Vol. 11.4 fl (6.2-12.0); Monocyte# 0.44 X10^3/uL; NRBC Flagged by Analyzer 0 % (0-5); Neutrophil # 1.95 X10^3/uL (2.7-7.7); Neutrophil % 57.5 % (47-70); POSITIVE COUNT YES; POSITIVE MORPHOLOGY YES; Platelet Count 63 K/mm3 (150-450); RBC Distribution Width SD 43.8 fl (35.1-43.9); Red Blood Count 2.91 M/mm3 (4.2-5.4); White Blood Count 3.4 K/mm3 (4.4-11.0)
[2021-02-19] MEDS: Spironolactone 50 MG Tablet 100 MG PO (08:21)
[2021-02-19] MEDS: Menthol/Lanolin/Calamine/Znox 113 GM Tube 1 APPLIC TOPICAL ×2 (08:21→21:15)
[2021-02-19 08:23] LABS: Differential Indicated SCAN CRITERIA MET
[2021-02-19] MEDS: carBAMazepine 200 MG Tablet 100 MG PO ×2 (08:23→21:17)
[2021-02-19] MEDS: rifAXIMin 550 MG Tablet PO ×2 (08:23→21:16)
[2021-02-19 08:50] LABS: ALB/GLOB Ratio 0.5 RATIO (0.9-2.4); AST(SGOT) 46 U/L (15-37); Alanine Aminotransfer ALT/SGPT 31 U/L (13-56); Albumin, Serum 2.1 g/dL (3.2-5.0); Alkaline Phosphatase 241 U/L (45-117); Anion Gap 7 (5-15); BUN 19 mg/dL (7-18); Calcium,Total 7.7 mg/dL (8.5-10.1); Chloride 111 mmol/L (98-107); Creatinine, Serum 0.86 mg/dL (0.55-1.02); EST Glomerular Filtration Rate 73 mL/min (>60); Est Glom Filt Rate - Afr Amer 89 mL/min (>60); Estimated Creatinine Clearance 77.19 ml/min; Glucose 168 mg/dL (74-106); Phosphorus 1.9 mg/dL (2.5-4.9); Potassium 3.6 mmol/L (3.5-5.1); Protein, Total 6.1 g/dL (6.4-8.2); Sodium Level 140 mmol/L (136-145)
[2021-02-19 08:55] LABS: Atypical Lymphocyte RARE %; Hypochromasia 1+; Platelet Estimate MKD DEC (ADEQ)
[2021-02-19 10:10] LABS: Bedside Glucose 162 mg/dL (70-110)
[2021-02-19] MEDS: Potassium Chloride Oral Tablet 20 MEQ PO ×2 (10:18→16:55)
[2021-02-19] MEDS: Magnesium Chloride 64 MG Delay Rel.Tablet 128 MG PO ×2 (10:18→21:16)
[2021-02-19] MEDS: Ursodiol 250 MG Tablet PO ×2 (10:19→21:18)
[2021-02-19] MEDS: Furosemide 20 MG Tablet PO (10:19)
[2021-02-19] MEDS: Na Biphos/Potassium Phosphate PACKET 1 PACKET PO ×4 (10:20→21:16)
[2021-02-19] MEDS: Pantoprazole Sodium 40 MG Tablet PO (10:20)
[2021-02-19 11:40] LABS: Bedside Glucose 168 mg/dL (70-110)
--- NOTE | 2021-02-19 13:24 | PN_ITS ---
Patient Problems: Active and Suspected Problems Hepatic encephalopathy (Acute) JULIANNE (acute kidney injury) (Acute) Acute UTI (Acute) Severe sepsis (Acute) Encephalopathy acute (Acute) MRSA bacteremia (Acute) Reason for Visit: Follow-up on acute metabolic and hepatic encephalopathy Subjective: Patient was seen and examined. She complains of headache and diarrhea with lactulose. Denies any fever or chills Objective: Physical exam: General: Cooperative, No apparent distress, well, alert, oriented x3 HEENT: Atraumatic, PERRLA, EOMI, Normocephalic Oral: Moist Mucosa Neck: Supple Lungs: Clear to auscultation Cardiovascular: Regular rate, Regular Rhythm, Normal S1, Normal S2, No murmurs Abdomen: Bowel Sounds Present, Soft, Non Tender, Non-Distended, No Hepato- splenomegaly Extremities: No edema Skin: No rashes Musculoskeletal: No Tenderness to Palpation of Joints or Extremities Lymphatic: No Cervical, Supraclavicular, or Inguinal Adenopathy Neurological: Cranial nerves II-XII grossly intact, Neuro grossly intact Psych/Mental Status: Normal Affect, Appropriate Vitals/I&O's: Vital Signs Temp Pulse Resp BP Pulse Ox 98.0 F 76 18 132/75 H 97 02/19/21 08:17 02/19/21 08:17 02/19/21 08:17 02/19/21 08:17 02/19/21 08:17 Oxygen Delivery Method Room Air Weight: 88.2 kg Body Mass Index (BMI) 27.7 Finger Stick Blood Glucose 217 Intake and Output for Last 24 Hours 02/17/21 02/18/21 02/19/21 23:59 23:59 23:59 Intake Total 1491.25 / 1891.25 193 / 1930 282.25 / 282.25 Output Total 0 / 0 Balance 1491.25 / 1891.25 1930 / 1930 282.25 / 282.25 Microbiology Past 72 Hours 02/17/21 14:05 Blood Culture (Wb) - Arm Right Blood Culture - Preliminary No growth in 48 hours. 02/16/21 10:10 Blood Culture (Wb) - Anticubital Right Blood Culture - Preliminary No growth in 48 hours. 02/15/21 10:46 Blood Culture (Wb) - Right Hand Blood Culture - Final Staphylococcus aureus 02/15/21 10:45 Blood Culture (Wb) - Anticubital Left Bacteria Detection (PCR) - Final Staphylococcus aureus mecA Resistance Marker 02/15/21 10:45 Blood Culture (Wb) - Anticubital Left Blood Culture - Final Meth. resistant Staph. aureus 02/15/21 10:45 Urine Catheter - Catheter Urine Culture - Final Meth. resistant Staph. aureus Laboratory Results 02/18/21 08:00: POC Glucose 237 H 02/18/21 16:47: POC Glucose 138 H 02/18/21 21:32: POC Glucose 189 H 02/19/21 08:10: WBC 3.4 L, RBC 2.91 L, Hgb 9.0 L, Hct 26.9 L, MCV 92.4, MCH 30.9, MCHC 33.5, RDW Std Deviation 43.8, RDW Coeff of Valentina 13.0, Plt Count 63 L, MPV 11.4, Immature Gran % (Auto) 0.600, Neut % (Auto) 57.5, Lymph % (Auto) 23.9, [place] % (Auto) 13.0 H, Eos % (Auto) 3.8, Baso % (Auto) 1.2 H, Absolute Neuts (auto) 2.0, Absolute Lymphs (auto) 0.81 L, Nucleated RBC % 0, Atypical Lymphocytes RARE, Platelet Estimate MKD DEC, Hypochromasia 1+ 02/19/21 08:10: Sodium 140, Potassium 3.6, Chloride 111 H, Carbon Dioxide 22.0, Anion Gap 7, BUN 19 H, Creatinine 0.86, Estim Creat Clear Calc 77.19, Est GFR (MDRD) Af Amer 89, Est GFR (MDRD) Non-Af 73, BUN/Creatinine Ratio 22.0 H, Glucose 168 H, Calcium 7.7 L, Phosphorus 1.9 L, Total Bilirubin 1.00, AST 46 H, ALT 31, Alkaline Phosphatase 241 H, Total Protein 6.1 L, Albumin 2.1 L, Globulin 4.0, Albumin/Globulin Ratio 0.5 L 02/19/21 08:19: POC Glucose 162 H 02/19/21 11:28: POC Glucose 168 H Current Medications Acetaminophen (Acetaminophen 325 Mg Tablet) 650 mg PO Q8H PRN PRN PRN Reason: Pain Score 1-10/Temp > 100.7 F Last Admin: 02/19/21 08:19 Dose: 650 mg Documented by: Albuterol Sulfate (Albuterol 2.5 Mg/3 Ml Vial.Neb.) 2.5 mg INHALATION Q2H PRN PRN PRN Reason: SOB/Wheezing Calamine/Phenol (Menthol/Lanolin/Calamine/Znox 113 Gm Tube) 1 applic TOPICAL BID [facility]; Protocol Last Admin: 02/19/21 08:21 Dose: 1 applic Documented by: Carbamazepine (Carbamazepine 200 Mg Tablet) 100 mg PO BID [facility] Last Admin: 02/19/21 08:23 Dose: 100 mg Documented by: Dextrose (Dextrose 50%-Water 25 Gm/50 Ml Disp.Syrin) 0 gm IV X1 PRN; Protocol PRN Reason: Hypoglycemia Dicyclomine HCl (Dicyclomine 10 Mg Capsule) 10 mg PO ACHS [facility] Last Admin: 02/19/21 10:18 Dose: 10 mg Documented by: Docusate Sodium (Docusate Sodium 100 Mg Capsule) 100 mg PO BID PRN PRN PRN Reason: Constipation Fluvoxamine Maleate (Fluvoxamine Maleate 50 Mg Tablet) 100 mg PO QHS [facility] Furosemide (Furosemide 20 Mg Tablet) 20 mg PO DAILY [facility] Last Admin: 02/19/21 10:19 Dose: 20 mg Documented by: Glucagon (Glucagon 1 Mg/Ml Syringe) 1 mg IM .X1 PRN PRN Reason: Hypoglycemia Vancomycin IV Pharmacy to Dose (1 each/ Sodium Chloride) 500 mls @ 250 mls/hr IV PRN PRN; Protocol PRN Reason: Rx to Dose Sodium Chloride () 250 mls @ 15 mls/hr IV .[id number] PRN PRN Reason: Saline Flush Last Infusion: 02/19/21 05:39 Dose: 0 mls/hr Documented by: Sodium Chloride () 250 mls @ 15 mls/hr IV .[id number] PRN PRN Reason: Additional IVPB Infusion Last Infusion: 02/16/21 10:59 Dose: Infused Documented by: Vancomycin HCl 750 mg/ Sodium (Chloride) 265 mls @ 250 mls/hr IV Q12H [facility] Last Infusion: 02/19/21 04:39 Dose: Infused Documented by: Insulin Glargine (Insulin Glargine 100 Units/Ml Pen) 10 units SC BID [facility] Last Admin: 02/19/21 08:22 Dose: 10 u Documented by: Insulin Human Lispro (Insulin Lispro 100 Unit/Ml Insuln.Pen) 0 unit SC ACHS [facility]; Protocol Last Admin: 02/19/21 11:30 Dose: 1 units Documented by: Insulin Human Lispro (Insulin Lispro 100 Unit/Ml Insuln.Pen) 12 unit SC [facility] Last Admin: 02/19/21 11:29 Dose: 12 u Documented by: Lactulose (Lactulose 20 Gm/30 Ml Udc) 20 gm PO TIDCM [facility] Last Admin: 02/19/21 11:30 Dose: Not Given Documented by: Magnesium Chloride (Magnesium Chloride 64 Mg Delay Rel.Tablet) 128 mg PO BID [facility] Last Admin: 02/19/21 10:18 Dose: 128 mg Documented by: Nystatin (Nystatin Powder 15gm Bottle) 1 applic TOPICAL TID [facility]; Protocol Last Admin: 02/19/21 06:12 Dose: 1 applic Documented by: Ondansetron HCl (Ondansetron 4 Mg/2 Ml Vial) 4 mg IV Q6H PRN PRN PRN Reason: NAUSEA Last Admin: 02/18/21 10:30 Dose: 4 mg Documented by: Pantoprazole Sodium (Pantoprazole Sodium 40 Mg Tablet) 40 mg PO DAILY [facility] Last Admin: 02/19/21 10:20 Dose: 40 mg Documented by: Potassium Chloride (Potassium Chloride Oral Tablet 20 Meq) [facility]q [facility] Last Admin: 02/19/21 10:18 Dose: 20 meq Documented by: Potassium Phos/Sodium Phos (Na Biphos/Potassium Phosphate Packet) 1 packet PO 4X/DAY [facility] Stop: 02/20/21 10:01 Last Admin: 02/19/21 10:20 Dose: 1 packet Documented by: Rifaximin (Rifaximin 550 Mg Tablet) 550 mg PO BID [facility] Last Admin: 02/19/21 08:23 Dose: 550 mg Documented by: Sodium Chloride (0.9% Saline Lock 10 Ml Syringe) 10 - 40 ml IV UD PRN PRN Reason: SALINE FLUSH Last Admin: 02/19/21 03:26 Dose: 10 ml Documented by: Spironolactone (Spironolactone 50 Mg Tablet) 100 mg PO DAILY [facility] Last Admin: 02/19/21 08:21 Dose: 100 mg Documented by: Tramadol HCl (Tramadol 50 Mg Tablet) 50 mg PO Q6H PRN PRN PRN Reason: PAIN 1-08/27 Last Admin: 02/18/21 21:38 Dose: 50 mg Documented by: Ursodiol (Ursodiol 250 Mg Tablet) 250 mg PO BID [facility] Last Admin: 02/19/21 10:19 Dose: 250 mg Documented by: Medical Necessity - Tobacco Use Smoking Status: Never smoker Assessment/Plan All Active Problems Hepatic encephalopathy (Acute) Cellulitis (Acute) JULIANNE (acute kidney injury) (Acute) Acute UTI (Acute) Severe sepsis (Acute) Encephalopathy acute (Acute) MRSA bacteremia (Acute) 50 year old F with past medical history of autoimmune hepatitis, cirrhosis of the liver with varices, type II DM who comes in with unresponsiveness and fever. 1. Acute metabolic encephalopathy, resolved 2. MRSA bacteremia/severe sepsis secondary to acute MRSA UTI, Continue on IV vancomycin; Repeat blood cultures pending, ID following 2D echo showed normal EF, no valvular lesions. Patient might need possible ERIC 3. Pancytopenia with absolute neutrophil count of 2000, secondary to #2 Continue on IV vancomycin, continue to monitor 3. Acute hepatic encephalopathy, with autoimmune hepatitis, cirrhosis of the liver with varices, improved Continue lactulose, rifaximin, spironolactone 4. Type II DM, blood glucose are fairly uncontrolled, Continue to Lantus with premeal insulin 5. Hypokalemia, replaced 6. CKD stage III, remains close to baseline, repeat blood work in am 7. Chronic thrombocytopenia secondary to liver cirrhosis, hold off on heparin, repeat blood work in a.m. 8. DVT PPx- SCDs Inpatient E&M: 98720 Subs Hosp L2
[2021-02-19] MEDS: traMADol 50 MG Tablet PO ×2 (14:30→21:16)
[2021-02-19 15:22] LABS: Vancomycin, Trough Level 17.6 ug/mL (5.0-15.0)
--- NOTE | 2021-02-19 16:32 | PCM.RX.CS ---
Consult Pharmacy has been consulted to manage selected antiobiotic: Vancomycin Type of Consult: Follow-up Suspected Infection: Bacteremia Labs: Sodium 140 mmol/L (136-145) 02/19/21 08:10 Potassium 3.6 mmol/L (3.5-5.1) 02/19/21 08:10 Chloride 111 mmol/L (98-107) H 02/19/21 08:10 Carbon Dioxide 22.0 mmol/L (21.0-32.0) 02/19/21 08:10 Anion Gap 7 (5-15) 02/19/21 08:10 BUN 19 mg/dL (7-18) H 02/19/21 08:10 Creatinine 0.86 mg/dL (0.55-1.02) 02/19/21 08:10 Est GFR (MDRD) Af Amer 89 mL/min (>60) 02/19/21 08:10 Est GFR (MDRD) Non-Af 73 mL/min (>60) 02/19/21 08:10 BUN/Creatinine Ratio 22.0 RATIO (10-20) H 02/19/21 08:10 Glucose 168 mg/dL (74-106) H 02/19/21 08:10 Vancomycin Trough 17.6 ug/mL (5.0-15.0) H 02/19/21 14:42 Microbiology: Microbiology 02/17/21 14:05 Blood Culture (Wb) - Arm Right Blood Culture - Preliminary No growth in 48 hours. 02/16/21 10:10 Blood Culture (Wb) - Anticubital Right Blood Culture - Preliminary No growth in 48 hours. 02/15/21 10:46 Blood Culture (Wb) - Right Hand Blood Culture - Final Staphylococcus aureus 02/15/21 10:45 Blood Culture (Wb) - Anticubital Left Bacteria Detection (PCR) - Final Staphylococcus aureus mecA Resistance Marker 02/15/21 10:45 Blood Culture (Wb) - Anticubital Left Blood Culture - Final Meth. resistant Staph. aureus 02/15/21 10:45 Urine Catheter - Catheter Urine Culture - Final Meth. resistant Staph. aureus 02/15/21 10:45 Mucosa - Nose SARS-CoV-2 Antigen (Rapid) - Final Goal Trough: 15-20 mcg/mL Pharmacy Plan for Drug Dosing: VANCOMYCIN LEVEL RECEIVED Current Vancomycin Dose: 750mg IV Q12hr Number of Doses Received: 4 of new regimen (3 prior to trough draw) Vancomycin Level: 17.6 Hours Since Last Dose: 11.25hr Renal Function: 0.86 Renal Function Trend: stable Lab/Micro: blood cultures = MRSA Vancomycin Plan/Comments: Patient had trough drawn which resulted in a value of 17.6 (goal 15-20). Will continue current dose and check a torugh in 2 days to assess dosing at that time. Pending Level: 02/21/21 @ 1430 Pharmacy Service will continue to monitor and adjust dosing as required.
[2021-02-19 17:40] LABS: Bedside Glucose 217 mg/dL (70-110)
[2021-02-19] MEDS: fluvoxaMINE Maleate 50 MG Tablet 100 MG PO (21:23)
[2021-02-19] MEDS: Ondansetron 4 MG/2 ML Vial IV (21:24)
[2021-02-19 22:06] LABS: Bedside Glucose 185 mg/dL (70-110)
[2021-02-20] VITALS (9 sets, daily range): BP systolic 154–173; BP diastolic 70–81; PULSE 77–89; RESP 18; TEMP 36.5–36.8; O2SAT 95–99
[2021-02-20] MEDS: 0.9% Saline Lock 10 ML Syringe IV ×6 (02:46→21:15)
[2021-02-20] MEDS: Ondansetron 4 MG/2 ML Vial IV ×3 (06:28→21:10)
[2021-02-20] MEDS: Dicyclomine 10 MG Capsule PO ×4 (06:28→21:25)
[2021-02-20] MEDS: Nystatin Powder 15gm Bottle 1 APPLIC TOPICAL ×3 (06:28→21:28)
[2021-02-20 06:57] LABS: Absolute Lymphocyte Count 0.83 X10^3/uL (0.83-4.51); Basophil# 0.03 X10^3/uL; Basophil% 0.9 % (0-1); Eosinophil# 0.11 X10^3/uL; Eosinophils% 3.2 % (0-5); Hematocrit 28.2 % (37-47); Hemoglobin 9.1 g/dL (12.0-15.0); Lymphocyte # 0.83 X10^3/ul (4.0); Lymphocyte % 24.1 % (19-41); Mean Corp Hgb Conc 32.3 g/dL (32-36); Mean Corpuscular Hgb 31.2 pg (27.0-32.0); Mean Corpuscular Volume 96.6 fL (81-99); Mean Platelet Vol. 13.1 fl (6.2-12.0); Monocyte# 0.47 X10^3/uL; Monocyte% 13.6 % (0-10); NRBC Flagged by Analyzer 0 % (0-5); Neutrophil # 1.98 X10^3/uL (2.7-7.7); Neutrophil % 57.3 % (47-70); POSITIVE COUNT YES; Platelet Count 64 K/mm3 (150-450); RBC Distribution Width CV 12.9 % (11.6-14.6); RBC Distribution Width SD 45.7 fl (35.1-43.9); Red Blood Count 2.92 M/mm3 (4.2-5.4); White Blood Count 3.5 K/mm3 (4.4-11.0)
[2021-02-20 07:27] LABS: ALB/GLOB Ratio 0.6 RATIO (0.9-2.4); AST(SGOT) 60 U/L (15-37); Alanine Aminotransfer ALT/SGPT 33 U/L (13-56); Albumin, Serum 2.2 g/dL (3.2-5.0); Alkaline Phosphatase 274 U/L (45-117); Anion Gap 8 (5-15); BUN 17 mg/dL (7-18); BUN/Creat Ratio 18.4 RATIO (10-20); Calcium,Total 8.1 mg/dL (8.5-10.1); Chloride 110 mmol/L (98-107); Creatinine, Serum 0.92 mg/dL (0.55-1.02); EST Glomerular Filtration Rate 68 mL/min (>60); Est Glom Filt Rate - Afr Amer 82 mL/min (>60); Estimated Creatinine Clearance 72.16 ml/min; Globulin 3.8 g/dL (2.2-4.2); Glucose 147 mg/dL (74-106); Phosphorus 1.9 mg/dL (2.5-4.9); Potassium 4.6 mmol/L (3.5-5.1); Sodium Level 139 mmol/L (136-145)
--- NOTE | 2021-02-20 07:40 | PCM.PN.HOSP ---
Patient Problems: Active and Suspected Problems Hepatic encephalopathy (Acute) JULIANNE (acute kidney injury) (Acute) Acute UTI (Acute) Severe sepsis (Acute) Encephalopathy acute (Acute) MRSA bacteremia (Acute) Reason for Visit: Follow-up for MRSA bacteremia Objective: No fever or chills. Last blood culture is negative for 48 hours. Last blood culture on 02/15 +ve of MRSA. Patient denies history of substance use especially IV substance use of heroin or fentanyl. History of autoimmune hepatitis related cirrhosis decompensated with splenomegaly, thrombocytopenia. Physical exam General: Alert, Oriented x3, Cooperative thin looking BMI 28.8 kg/m? HEENT: Atraumatic, PERRLA, EOMI, Normocephalic Oral: No Gingival or Mucosal Lesions/ Ulcerations Neck: Supple, No JVD, Negative Carotid Bruits Lungs: Air entry diminished in bilateral lung bases. No crepitation/rhonchi Cardiovascular: Regular rate, Regular Rhythm, Normal S1, Normal S2, No murmurs Abdomen: Bowel Sounds Present, Soft, Non Tender, Non-Distended : No renal angle tenderness. No suprapubic tenderness. Extremities: No ankle edema, Capillary Refill Less than 3 Seconds Skin: No rashes, No breakdown Musculoskeletal: Mild muscle atrophy of extremities. No Tenderness to Palpation of Joints or Extremities Neurological: Cranial nerves II-XII grossly intact, Deep Tendon Reflexes 2+/4 and Symmetrical, Neuro grossly intact Psych/Mental Status: Normal Affect, Appropriate. Vitals/I&O's: Vital Signs Temp Pulse Resp BP Pulse Ox 97.9 F 87 18 154/70 H 95 02/20/21 02:44 02/20/21 07:00 02/20/21 02:44 02/20/21 02:44 02/20/21 02:44 Oxygen Delivery Method Room Air Weight: 189 lb 9.561 oz Body Mass Index (BMI) 27.7 Finger Stick Blood Glucose 217 Intake and Output for Last 24 Hours 02/18/21 02/19/21 02/20/21 23:59 23:59 23:59 Intake Total 1929 1027.25 / 1427.25 764.5 / 764.5 Output Total 0 / 0 0 / 0 Balance 1929 1027.25 / 1427.25 764.5 / 764.5 Microbiology Past 72 Hours 02/17/21 14:05 Blood Culture (Wb) - Arm Right Blood Culture - Preliminary No growth in 48 hours. 02/16/21 10:10 Blood Culture (Wb) - Anticubital Right Blood Culture - Preliminary No growth in 48 hours. 02/15/21 10:46 Blood Culture (Wb) - Right Hand Blood Culture - Final Staphylococcus aureus 02/15/21 10:45 Blood Culture (Wb) - Anticubital Left Bacteria Detection (PCR) - Final Staphylococcus aureus mecA Resistance Marker 02/15/21 10:45 Blood Culture (Wb) - Anticubital Left Blood Culture - Final Meth. resistant Staph. aureus 02/15/21 10:45 Urine Catheter - Catheter Urine Culture - Final Meth. resistant Staph. aureus Laboratory Results 02/19/21 08:10: WBC 3.4 L, RBC 2.91 L, Hgb 9.0 L, Hct 26.9 L, MCV 92.4, MCH 30.9, MCHC 33.5, RDW Std Deviation 43.8, RDW Coeff of Valentina 13.0, Plt Count 63 L, MPV 11.4, Immature Gran % (Auto) 0.600, Neut % (Auto) 57.5, Lymph % (Auto) 23.9, [place] % (Auto) 13.0 H, Eos % (Auto) 3.8, Baso % (Auto) 1.2 H, Absolute Neuts (auto) 2.0, Absolute Lymphs (auto) 0.81 L, Nucleated RBC % 0, Atypical Lymphocytes RARE, Platelet Estimate MKD DEC, Hypochromasia 1+ 02/19/21 08:10: Sodium 140, Potassium 3.6, Chloride 111 H, Carbon Dioxide 22.0, Anion Gap 7, BUN 19 H, Creatinine 0.86, Estim Creat Clear Calc 77.19, Est GFR (MDRD) Af Amer 89, Est GFR (MDRD) Non-Af 73, BUN/Creatinine Ratio 22.0 H, Glucose 168 H, Calcium 7.7 L, Phosphorus 1.9 L, Total Bilirubin 1.00, AST 46 H, ALT 31, Alkaline Phosphatase 241 H, Total Protein 6.1 L, Albumin 2.1 L, Globulin 4.0, Albumin/Globulin Ratio 0.5 L 02/19/21 08:19: POC Glucose 162 H 02/19/21 11:28: POC Glucose 168 H 02/19/21 14:42: Vancomycin Trough 17.6 H 02/19/21 16:54: POC Glucose 217 H 02/19/21 21:11: POC Glucose 185 H 02/20/21 05:22: WBC 3.5 L, RBC 2.92 L, Hgb 9.1 L, Hct 28.2 L, MCV 96.6, MCH 31.2, MCHC 32.3, RDW Std Deviation 45.7 H, RDW Coeff of Valentina 12.9, Plt Count 64 L, MPV 13.1 H, Immature Gran % (Auto) 0.900, Neut % (Auto) 57.3, Lymph % (Auto) 24.1, [place] % (Auto) 13.6 H, Eos % (Auto) 3.2, Baso % (Auto) 0.9, Absolute Neuts (auto) 2.0, Absolute Lymphs (auto) 0.83, Nucleated RBC % 0 02/20/21 05:22: Sodium 139, Potassium 4.6, Chloride 110 H, Carbon Dioxide 21.0, Anion Gap 8, BUN 17, Creatinine 0.92, Estim Creat Clear Calc 72.16, Est GFR (MDRD) Af Amer 82, Est GFR (MDRD) Non-Af 68, BUN/Creatinine Ratio 18.4, Glucose 147 H, Calcium 8.1 L, Phosphorus 1.9 L, Total Bilirubin 0.90, AST 60 H, ALT 33, Alkaline Phosphatase 274 H, Total Protein 6.0 L, Albumin 2.2 L, Globulin 3.8, Albumin/Globulin Ratio 0.6 L Current Medications Acetaminophen (Acetaminophen 325 Mg Tablet) 650 mg PO Q8H PRN PRN PRN Reason: Pain Score 1-10/Temp > 100.7 F Last Admin: 02/19/21 21:16 Dose: 650 mg Documented by: Albuterol Sulfate (Albuterol 2.5 Mg/3 Ml Vial.Neb.) 2.5 mg INHALATION Q2H PRN PRN PRN Reason: SOB/Wheezing Calamine/Phenol (Menthol/Lanolin/Calamine/Znox 113 Gm Tube) 1 applic TOPICAL BID [facility]; Protocol Last Admin: 02/19/21 21:15 Dose: 1 applic Documented by: Carbamazepine (Carbamazepine 200 Mg Tablet) 100 mg PO BID [facility] Last Admin: 02/19/21 21:17 Dose: 100 mg Documented by: Dextrose (Dextrose 50%-Water 25 Gm/50 Ml Disp.Syrin) 0 gm IV X1 PRN; Protocol PRN Reason: Hypoglycemia Dicyclomine HCl (Dicyclomine 10 Mg Capsule) 10 mg PO ACHS [facility] Last Admin: 02/20/21 06:28 Dose: 10 mg Documented by: Docusate Sodium (Docusate Sodium 100 Mg Capsule) 100 mg PO BID PRN PRN PRN Reason: Constipation Fluvoxamine Maleate (Fluvoxamine Maleate 50 Mg Tablet) 100 mg PO QHS [facility] Last Admin: 02/19/21 21:23 Dose: 100 mg Documented by: Furosemide (Furosemide 20 Mg Tablet) 20 mg PO DAILY [facility] Last Admin: 02/19/21 10:19 Dose: 20 mg Documented by: Glucagon (Glucagon 1 Mg/Ml Syringe) 1 mg IM .X1 PRN PRN Reason: Hypoglycemia Vancomycin IV Pharmacy to Dose (1 each/ Sodium Chloride) 500 mls @ 250 mls/hr IV PRN PRN; Protocol PRN Reason: Rx to Dose Sodium Chloride () 250 mls @ 15 mls/hr IV .[id number] PRN PRN Reason: Saline Flush Last Infusion: 02/20/21 06:28 Dose: 0 mls/hr Documented by: Sodium Chloride () 250 mls @ 15 mls/hr IV .[id number] PRN PRN Reason: Additional IVPB Infusion Last Infusion: 02/16/21 10:59 Dose: Infused Documented by: Vancomycin HCl 750 mg/ Sodium (Chloride) 265 mls @ 250 mls/hr IV Q12H [facility] Last Infusion: 02/20/21 04:02 Dose: Infused Documented by: Insulin Glargine (Insulin Glargine 100 Units/Ml Pen) 10 units SC BID [facility] Last Admin: 02/19/21 21:19 Dose: 10 u Documented by: Insulin Human Lispro (Insulin Lispro 100 Unit/Ml Insuln.Pen) 0 unit SC [facility]; Protocol Last Admin: 02/19/21 21:19 Dose: 1 units Documented by: Insulin Human Lispro (Insulin Lispro 100 Unit/Ml Insuln.Pen) 12 unit SC [facility] Last Admin: 02/19/21 21:19 Dose: 12 u Documented by: Lactulose (Lactulose 20 Gm/30 Ml Udc) 20 gm PO TIDCM [facility] Last Admin: 02/19/21 17:38 Dose: Not Given Documented by: Magnesium Chloride (Magnesium Chloride 64 Mg Delay Rel.Tablet) 128 mg PO BID [facility] Last Admin: 02/19/21 21:16 Dose: 128 mg Documented by: Nystatin (Nystatin Powder 15gm Bottle) 1 applic TOPICAL TID [facility]; Protocol Last Admin: 02/20/21 06:28 Dose: 1 applic Documented by: Ondansetron HCl (Ondansetron 4 Mg/2 Ml Vial) 4 mg IV Q6H PRN PRN PRN Reason: NAUSEA Last Admin: 02/20/21 06:28 Dose: 4 mg Documented by: Pantoprazole Sodium (Pantoprazole Sodium 40 Mg Tablet) 40 mg PO DAILY [facility] Last Admin: 02/19/21 10:20 Dose: 40 mg Documented by: Potassium Chloride (Potassium Chloride Oral Tablet 20 Meq) 20 meq PO BIDCM [facility] Last Admin: 02/19/21 16:55 Dose: 20 meq Documented by: Potassium Phos/Sodium Phos (Na Biphos/Potassium Phosphate Packet) 1 packet PO 4X/DAY [facility] Stop: 02/20/21 10:01 Last Admin: 02/19/21 21:16 Dose: 1 packet Documented by: Rifaximin (Rifaximin 550 Mg Tablet) 550 mg PO BID [facility] Last Admin: 02/19/21 21:16 Dose: 550 mg Documented by: Sodium Chloride (0.9% Saline Lock 10 Ml Syringe) 10 - 40 ml IV UD PRN PRN Reason: SALINE FLUSH Last Admin: 02/20/21 06:28 Dose: 10 ml Documented by: Spironolactone (Spironolactone 50 Mg Tablet) 100 mg PO DAILY [facility] Last Admin: 02/19/21 08:21 Dose: 100 mg Documented by: Tramadol HCl (Tramadol 50 Mg Tablet) 50 mg PO Q6H PRN PRN PRN Reason: PAIN -08/27 Last Admin: 02/19/21 21:16 Dose: 50 mg Documented by: Ursodiol (Ursodiol 250 Mg Tablet) 250 mg PO BID [facility] Last Admin: 02/19/21 21:18 Dose: 250 mg Documented by: STROKE Vital Signs/Narrative: Vital Signs Pulse 02/20/21 07:00 87 Medical Necessity - Tobacco Use Smoking Status: Never smoker Assessment/Plan All Active Problems Hepatic encephalopathy (Acute) Cellulitis (Acute) JULIANNE (acute kidney injury) (Acute) Acute UTI (Acute) Severe sepsis (Acute) Encephalopathy acute (Acute) MRSA bacteremia (Acute) 50 year old F with past medical history of autoimmune hepatitis related decompensated cirrhosis of the liver, type II DM who was admitted with unresponsiveness and fever. 1. Acute metabolic encephalopathy, resolved: Patient was seen admitted in ICU and seen by grain elevator motor starter. Currently in PCU 2. MRSA bacteremia/severe sepsis secondary to acute MRSA UTI: Patient has been afebrile for more than 72 hours. Blood culture negative for more than 48 hours since 02/16. 2D echo shows normal EF, no valvular lesions. Seen by ID. 3. Pancytopenia with absolute neutrophil count of 2000, secondary to bacteremia/sepsis: WBC count is improved to 3.5 thousand. ANC 2.0 thousand Continue on IV vancomycin, continue to monitor 3. 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 Electrolytes are in normal range except chloride 110. Blood pressure high, lisinopril 10 mg daily added. No significant ascites or peripheral edema. Patient required 1500 mL paracentesis in October 2019. 4. Type II DM, blood glucose are fairly uncontrolled, Continue to Lantus with premeal insulin 5. Hypokalemia, replaced and corrected 6. CKD stage IIIa, with proteinuria. Proteinuria may be acute from UTI. 7. Chronic thrombocytopenia secondary to liver cirrhosis, hold off on heparin, monitor CBC. 8. DVT PPx- SCDs Inpatient E&M: 22222 Subs Hosp L2
[2021-02-20 09:26] LABS: Bedside Glucose 172 mg/dL (70-110)
[2021-02-20] MEDS: Insulin Lispro 100 UNIT/ML INSULN.PEN SC ×3 (09:26→16:58)
[2021-02-20] MEDS: Insulin Lispro 100 UNIT/ML INSULN.PEN 12 UNIT SC ×3 (09:26→16:59)
[2021-02-20] MEDS: Lactulose 20 GM/30 ML UDC PO (09:27)
[2021-02-20] MEDS: Potassium Chloride Oral Tablet 20 MEQ PO ×2 (09:28→16:58)
[2021-02-20] MEDS: Spironolactone 50 MG Tablet 100 MG PO (09:29)
[2021-02-20] MEDS: Menthol/Lanolin/Calamine/Znox 113 GM Tube 1 APPLIC TOPICAL (09:29)
[2021-02-20] MEDS: Magnesium Chloride 64 MG Delay Rel.Tablet 128 MG PO ×2 (09:31→21:27)
[2021-02-20] MEDS: carBAMazepine 200 MG Tablet 100 MG PO ×2 (09:31→21:48)
[2021-02-20] MEDS: Pantoprazole Sodium 40 MG Tablet PO (09:31)
[2021-02-20] MEDS: Furosemide 20 MG Tablet PO (09:31)
[2021-02-20] MEDS: Ursodiol 250 MG Tablet PO ×2 (09:33→21:48)
[2021-02-20] MEDS: rifAXIMin 550 MG Tablet PO ×2 (09:33→21:49)
[2021-02-20] MEDS: Lisinopril 10 MG Tablet PO (10:07)
[2021-02-20 12:18] LABS: Pathologist Review Reviewed
[2021-02-20 12:31] LABS: Bedside Glucose 301 mg/dL (70-110)
[2021-02-20] MEDS: traMADol 50 MG Tablet PO ×2 (12:35→21:32)
--- NOTE | 2021-02-20 13:11 | PCM.PN.ID ---
Patient Problems: Active and Suspected Problems Hepatic encephalopathy (Acute) JULIANNE (acute kidney injury) (Acute) Acute UTI (Acute) Severe sepsis (Acute) Encephalopathy acute (Acute) MRSA bacteremia (Acute) Subjective: Feeling better, no fever, no n/v/d. - Physical Exam Vitals/I&O's: Vital Signs Temp Pulse Resp BP Pulse Ox 98.1 F 84 18 173/73 H 99 02/20/21 08:45 02/20/21 11:00 02/20/21 08:45 02/20/21 08:45 02/20/21 08:45 Oxygen Delivery Method Room Air Weight: 86 kg Body Mass Index (BMI) 27.7 Finger Stick Blood Glucose 217 Intake and Output for Last 24 Hours 02/18/21 02/19/21 02/20/21 23:59 23:59 23:59 Intake Total 1929 1027.25 / 1427.25 1004.5 / 1004.5 Output Total 0 / 0 0 / 0 Balance 1929 1027.25 / 1427.25 1004.5 / 1004.5 General: Alert, Cooperative, No apparent distress Lungs: Clear to auscultation, Normal air movement Cardiovascular: Regular rate, Regular Rhythm Abdomen: Soft, Non Tender, Non-Distended Skin: No rashes Microbiology Past 72 Hours 02/18/21 09:15 Blood Culture (Wb) - Anticubital Right Blood Culture - Preliminary No growth in 48 hours. 02/17/21 14:05 Blood Culture (Wb) - Arm Right Blood Culture - Preliminary No growth in 48 hours. 02/16/21 10:10 Blood Culture (Wb) - Anticubital Right Blood Culture - Preliminary No growth in 48 hours. 02/15/21 10:46 Blood Culture (Wb) - Right Hand Blood Culture - Final Staphylococcus aureus 02/15/21 10:45 Blood Culture (Wb) - Anticubital Left Bacteria Detection (PCR) - Final Staphylococcus aureus mecA Resistance Marker 02/15/21 10:45 Blood Culture (Wb) - Anticubital Left Blood Culture - Final Meth. resistant Staph. aureus Laboratory Results 02/18/21 05:12: Diff Path Review Reviewed 02/19/21 14:42: Vancomycin Trough 17.6 H 02/19/21 16:54: POC Glucose 217 H 02/19/21 21:11: POC Glucose 185 H 02/20/21 05:22: WBC 3.5 L, RBC 2.92 L, Hgb 9.1 L, Hct 28.2 L, MCV 96.6, MCH 31.2, MCHC 32.3, RDW Std Deviation 45.7 H, RDW Coeff of Valentina 12.9, Plt Count 64 L, MPV 13.1 H, Immature Gran % (Auto) 0.900, Neut % (Auto) 57.3, Lymph % (Auto) 24.1, [place] % (Auto) 13.6 H, Eos % (Auto) 3.2, Baso % (Auto) 0.9, Absolute Neuts (auto) 2.0, Absolute Lymphs (auto) 0.83, Nucleated RBC % 0 02/20/21 05:22: Sodium 139, Potassium 4.6, Chloride 110 H, Carbon Dioxide 21.0, Anion Gap 8, BUN 17, Creatinine 0.92, Estim Creat Clear Calc 72.16, Est GFR (MDRD) Af Amer 82, Est GFR (MDRD) Non-Af 68, BUN/Creatinine Ratio 18.4, Glucose 147 H, Calcium 8.1 L, Phosphorus 1.9 L, Total Bilirubin 0.90, AST 60 H, ALT 33, Alkaline Phosphatase 274 H, Total Protein 6.0 L, Albumin 2.2 L, Globulin 3.8, Albumin/Globulin Ratio 0.6 L 02/20/21 08:10: POC Glucose 172 H 02/20/21 12:07: POC Glucose 301 H Current Medications Acetaminophen (Acetaminophen 325 Mg Tablet) 650 mg PO Q8H PRN PRN PRN Reason: Pain Score 1-10/Temp > 100.7 F Last Admin: 02/19/21 21:16 Dose: 650 mg Documented by: Albuterol Sulfate (Albuterol 2.5 Mg/3 Ml Vial.Neb.) 2.5 mg INHALATION Q2H PRN PRN PRN Reason: SOB/Wheezing Calamine/Phenol (Menthol/Lanolin/Calamine/Znox 113 Gm Tube) 1 applic TOPICAL BID [facility]; Protocol Last Admin: 02/20/21 09:29 Dose: 1 applic Documented by: Carbamazepine (Carbamazepine 200 Mg Tablet) 100 mg PO BID [facility] Last Admin: 02/20/21 09:31 Dose: 100 mg Documented by: Dextrose (Dextrose 50%-Water 25 Gm/50 Ml Disp.Syrin) 0 gm IV X1 PRN; Protocol PRN Reason: Hypoglycemia Dicyclomine HCl (Dicyclomine 10 Mg Capsule) 10 mg PO ACHS [facility] Last Admin: 02/20/21 10:07 Dose: 10 mg Documented by: Docusate Sodium (Docusate Sodium 100 Mg Capsule) 100 mg PO BID PRN PRN PRN Reason: Constipation Fluvoxamine Maleate (Fluvoxamine Maleate 50 Mg Tablet) 100 mg PO QHS [facility] Last Admin: 02/19/21 21:23 Dose: 100 mg Documented by: Furosemide (Furosemide 20 Mg Tablet) 20 mg PO DAILY [facility] Last Admin: 02/20/21 09:31 Dose: 20 mg Documented by: Glucagon (Glucagon 1 Mg/Ml Syringe) 1 mg IM .X1 PRN PRN Reason: Hypoglycemia Hydralazine HCl (Hydralazine 20 Mg/Ml Vial) 10 mg IV Q4H PRN PRN PRN Reason: SBP more than 180 mmHg Vancomycin IV Pharmacy to Dose (1 each/ Sodium Chloride) 500 mls @ 250 mls/hr IV PRN PRN; Protocol PRN Reason: Rx to Dose Sodium Chloride () 250 mls @ 15 mls/hr IV .[id number] PRN PRN Reason: Saline Flush Last Infusion: 02/20/21 06:28 Dose: 0 mls/hr Documented by: Sodium Chloride () 250 mls @ 15 mls/hr IV .[id number] PRN PRN Reason: Additional IVPB Infusion Last Infusion: 02/16/21 10:59 Dose: Infused Documented by: Vancomycin HCl 750 mg/ Sodium (Chloride) 265 mls @ 250 mls/hr IV Q12H [facility] Last Infusion: 02/20/21 04:02 Dose: Infused Documented by: Insulin Glargine (Insulin Glargine 100 Units/Ml Pen) 10 units SC BID [facility] Last Admin: 02/20/21 09:29 Dose: 10 u Documented by: Insulin Human Lispro (Insulin Lispro 100 Unit/Ml Insuln.Pen) 0 unit SC [facility]; Protocol Last Admin: 02/20/21 12:10 Dose: 4 units Documented by: Insulin Human Lispro (Insulin Lispro 100 Unit/Ml Insuln.Pen) 12 unit SC [facility] Last Admin: 02/20/21 12:10 Dose: 12 u Documented by: Lactulose (Lactulose 20 Gm/30 Ml Udc) 20 gm PO TIDCM [facility] Last Admin: 02/20/21 12:11 Dose: Not Given Documented by: Lisinopril (Lisinopril 10 Mg Tablet) 10 mg PO DAILY [facility] Last Admin: 02/20/21 10:07 Dose: 10 mg Documented by: Magnesium Chloride (Magnesium Chloride 64 Mg Delay Rel.Tablet) 128 mg PO BID [facility] Last Admin: 02/20/21 09:31 Dose: 128 mg Documented by: Nystatin (Nystatin Powder 15gm Bottle) 1 applic TOPICAL TID [facility]; Protocol Last Admin: 02/20/21 06:28 Dose: 1 applic Documented by: Ondansetron HCl (Ondansetron 4 Mg/2 Ml Vial) 4 mg IV Q6H PRN PRN PRN Reason: NAUSEA Last Admin: 02/20/21 12:33 Dose: 4 mg Documented by: Pantoprazole Sodium (Pantoprazole Sodium 40 Mg Tablet) 40 mg PO DAILY [facility] Last Admin: 02/20/21 09:31 Dose: 40 mg Documented by: Potassium Chloride (Potassium Chloride Oral Tablet 20 Meq) 20 meq PO BIDCM [facility] Last Admin: 02/20/21 09:28 Dose: 20 meq Documented by: Rifaximin (Rifaximin 550 Mg Tablet) 550 mg PO BID [facility] Last Admin: 02/20/21 09:33 Dose: 550 mg Documented by: Sodium Chloride (0.9% Saline Lock 10 Ml Syringe) 10 - 40 ml IV UD PRN PRN Reason: SALINE FLUSH Last Admin: 02/20/21 12:33 Dose: 10 ml Documented by: Spironolactone (Spironolactone 50 Mg Tablet) 100 mg PO DAILY [facility] Last Admin: 02/20/21 09:29 Dose: 100 mg Documented by: Tramadol HCl (Tramadol 50 Mg Tablet) 50 mg PO Q6H PRN PRN PRN Reason: PAIN 1-08/27 Last Admin: 02/20/21 12:35 Dose: 50 mg Documented by: Ursodiol (Ursodiol 250 Mg Tablet) 250 mg PO BID [facility] Last Admin: 02/20/21 09:33 Dose: 250 mg Documented by: Medical Necessity - Tobacco Use Smoking Status: Never smoker Route of nutrition/ use of supplements: [] Nutritional Intake: [] IV Site: [] Hill Catheter: [] - Assessment/Plan Antibiotics: [] Assessment/Plan: [] Active and Suspected Problems Hepatic encephalopathy (Acute) JULIANNE (acute kidney injury) (Acute) Acute UTI (Acute) Severe sepsis (Acute) Encephalopathy acute (Acute) severe sepsis due to MRSA bacteremia and h/o cirrhosis - cont vanc. Bcx rapidly cleared, neg since 02/16/21. TTE neg for veg. Will order picc, ok for home with 10 more days vanc, stop date 03/02, wrote rx. Will follow, d/w family independence case manager and Dr. Parry
--- NOTE | 2021-02-20 13:18 | CASEMGMT ---
Addendum entered by Josefa Frias 02/20/21 15:36: Call back from Ashlee at [facility] and she states they can accept pt at this time and she is aware that pt may discharge tomorrow, voices understanding. Stuart MORRISON CM Addendum entered by Josefa Frias 02/20/21 13:51: Script obtained from Dr. Melendez and pt to be on Vancomycin IV 750mg IV every 12 hours. This RN CM back to room and pt states she would like [facility] and [facility]. Referral faxed to [facility] and called to Ashlee at [facility] per pt choices. Pt to have PICC line placed this afternoon. CM to follow. Stuart MORRISON CM Original Note: Per Dr. Melendez, pt to be sent home on IV antibx for the next 14-28 days. This RN CM to room and pt provided a list of [facility] providers including quality and resource data and consistent with the pt's preferred geographic region, medical needs, and insurance network. Pt also provided a list of In-network infusion companies. Pt's sig other at bedside and this RN CM will check back to see which HHC/infusion companies they choose. Pt's sig other or stepdaughter are teachable for the infusions. CM to follow. Stuart MORRISON CM
--- NOTE | 2021-02-20 16:17 | CON.PCM_ITS ---
Problem List (1) Weakness Status: Acute (2) Chronic pain Status: Chronic Qualifiers: Chronic pain type: chronic pain syndrome Qualified Code(s): G89.4 - Chronic pain syndrome (3) Peripheral neuropathy Status: Chronic (4) JULIANNE (acute kidney injury) Status: Acute (5) Acute UTI Status: Acute (6) Hepatic encephalopathy Status: Acute (7) MRSA bacteremia Status: Acute (8) Severe sepsis Status: Acute (9) Bipolar disorder Status: Chronic Qualifiers: Active/Remission status: remission status unspecified (10) Reilly thyroiditis Status: Chronic (11) Liver cirrhosis Status: Chronic (12) Schizoaffective disorder Status: Chronic Qualifiers: Schizoaffective disorder type: depressive Qualified Code(s): F25.1 - Schizoaffective disorder, depressive type (13) Autoimmune hepatitis Status: Chronic (14) Encephalopathy acute Status: Inactive History of Present Illness Date of Consult: 02/20/21 Reason for Consult: weakness and debility, Requesting physician: [] Primary care physician: Dr. Janay Canchola MD - History of Present Illness The patient is a 50 year old F with PMH as below, presented to the ED on 02/05/2021 with altered mental status. She has a history of autoimmune hepatitis and cirrhosis of the liver with varices, possible s/p TIPS. At one point she became completely unresponsive. She was admitted to the intensive care unit with acute hepatic encephalopathy secondary to severe sepsis and MRSA bacteremia secondary to UTI. She is being treated with antibiotics and lactulose for her elevated ammonia level. Her diuretic therapy was held, as well as several of her chronic medications including baclofen and Lyrica. ID was consulted and directing antibiotic therapy. Patient continues on lactulose and rifaximin. Her insulin has been adjusted and she continues to improve. Patient's blood pressure is somewhat elevated today at 173/73. It appears she has not been febrile since 02/16 and has remained on room air. Patient lives with her significant other, Sj, and her 16-year-old autistic son. She is typically independent and able to ambulate stairs, however notes that she stays in her room most of the day. She does not have a living will or POA. Her significant other transports her to her doctor's appointments. She does have a raised toilet seat, shower chair, grab bars, walker, glucometer, and testing supplies at home. Patient has psychological issues and follows with Dr. Moreno (psychiatrist) at [facility] on a routine basis. Patient is often tearful with conversation with staff. Plan is for patient to be discharged 03/08 home with home health care through [facility]. Continue with IV vancomycin at home for approximately 14 to 28 days, having PICC line placed today. Patient reports she is feeling nauseated and does not want to take her pills, she was able to get them down with assistance of the nurse. She does not feel like eating much, has lost about 30 pounds in the last 1 month. She has chronic nausea and vomiting, which has been worse the past 30 days. She has retail assistant store manager through [facility], however needs to establish with a new one since her current one left the [facility]. She had an appointment with a shipyard painter apprentice at [facility], Dr. Aldrich? but has not had consult yet. Most of her docs are through [facility]. Significant other is at bedside, discussed palliative care services and potential plan of care for the patient. They would like an RN visit after she is discharged to discuss further, states they need any help they can get. Notes she has been dealing with the cirrhosis for the past 7 years, getting worse. Sj's daughter is possibly going to help out at home so he can work. Some of medications that have been discontinued include Lyrica 50 mg twice daily, carbamazepine 100 mg twice daily, baclofen 10 mg nightly. Patient Problems: Chronic Problems Autoimmune hepatitis (Chronic) Chronic pain (Chronic) Peripheral neuropathy (Chronic) Diabetes mellitus (Chronic) Liver cirrhosis (Chronic) Reilly thyroiditis (Chronic) Autoimmune hepatitis (Chronic) Schizoaffective disorder (Chronic) Bipolar disorder (Chronic) Splenomegaly (Chronic) Surgical History: - - Appendectomy, cholecystectomy, partial hysterectomy. 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, Bipolar, Depression, - - Schizoaffective disorder Home Medications: Ambulatory Orders Medication Instructions Recorded Potassium Chloride [Klor-Con M20] 20 meq PO BID 09/25/15 Albuterol Inhaler [Ventolin Hfa] 2 puff INHALATION Q4H PRN PRN 02/16/16 Furosemide [Lasix] 20 mg PO DAILY 03/14/17 Insulin Lispro [Humalog] 12 units SC ACHS 03/14/17 Magnesium Oxide [Magnesium] 400 mg PO BID 03/14/17 Spironolactone [Aldactone] 100 mg PO DAILY 04/28/17 traMADol [Ultram] 50 mg PO Q6H PRN PRN 04/28/17 Sennosides/Docusate Sodium [Senna 1 each PO DAILY PRN 04/29/17 Plus Tablet] Fluvoxamine Maleate [Luvox] 100 mg PO QHS 11/04/17 Rifaximin [Xifaxan] 550 mg PO BID 11/04/17 Ursodiol [Actigall] 300 mg PO BID 11/04/17 Carbamazepine [Carbatrol] 100 mg PO BID 08/19/18 Cholecalciferol (Vitamin D3) 50,000 unit PO SA 08/19/18 [Vitamin D3] Dicyclomine HCl [Bentyl] 10 mg PO [facility] 08/19/18 Fluticasone Propionate [Flonase 15.8 ml NS BID PRN 08/19/18 Allergy Relief] Sucralfate [Carafate] 1 gm PO [facility] 08/19/18 Omeprazole [Prilosec] 40 mg PO DAILY #0 08/20/18 Baclofen 10 mg PO QHS 01/09/19 Lactulose [Chronulac] 20 gm PO TID 01/09/19 Insulin Degludec [Tresiba 20 unit SQ DAILY #0 01/10/19 Flextouch U-100] Pregabalin [Lyrica] 50 mg PO BID 11/06/19 Insulin Lispro [Humalog KwikPen] See Protocol SC [facility] 02/15/21 Vancomycin IV 750 mg IV Q12H 10 Days #20 vial 02/20/21 Allergies adhesive Allergy (Verified 02/15/21 10:56) Rash escitalopram oxalate [From Lexapro] Allergy (Verified 02/15/21 10:56) blindness gabapentin [From Neurontin] Allergy (Verified 02/15/21 10:56) Alan Jez's Syndrome lamotrigine [From Lamictal] Allergy (Verified 02/15/21 10:56) Blindness Preservatives Allergy (Uncoded 01/09/19 07:10) passed out, lungs deflated Preservatives in various foods including packaged gladys cheese, lettuce, and seafood. sour cream Allergy (Uncoded 01/09/19 07:10) Anaphylaxis Paternal History Items: Heart Disease, Stroke, - - [place] Sibling History Items: Hypertension, - - Her sister had hyperthyroidism Maternal History Items: Heart Disease - Her grandmother had heart failure, - - She reported her mother had low blood pressure - Social History Lives: Spouse/ Significant Other Smoking Status: Never smoker Tobacco Use: Non-smoker Alcohol: None Drugs: None Code Status: Full Code Review of Systems Constitutional: Reports: Anorexia, Malaise, Weakness, Weight Change - 30# in 1 month, Fatigue. Denies: Chills, Fever Eyes: Denies: Vision Change HEENT: Denies: Difficulty Swallowing, Head Aches, Sinus Congestion, Sinus Drainage, Sore Throat Cardiovascular: Denies: Chest Pain, Chest Tightness, Edema, Orthopnea, Palpitations Respiratory: Denies: Cough, Shortness of Breath, Shortness of breath at rest, Sputum production Gastrointestinal: Reports: Abdominal Pain - Mostly to left lower quadrant, Diarrhea - From lactulose, Nausea, Vomiting. Denies: Constipation, Hematemesis, Hematochezia, Melena Genitourinary: Denies: Dysuria Musculoskeletal: Reports: Joint Tenderness - Bilateral knees, Leg Pain - N/t from knees down, shooting pain and burning from knees up. Denies: Joint Pain Skin: Denies: Rash, Wounds Neurological: Reports: Balance problems. Denies: Change in Speech, Focal weakness, Numbness, Tingling, Seizures Psychiatric: Reports: Anxiety, Depression, - - Schizoaffective/bipolar. Denies: Homicidal Ideations, Suicidal Ideations Endocrine: Reports: Change in Body Habitus Hematologic/ Lymphatic: Reports: Anemia, Easy Bruising. Denies: Easy Bleeding Physical Exam Subjective: Lying in bed, alert and oriented. Seems sleepy but conversing. States she is always in pain. She is currently nauseated, no emesis in the last several hours. Her significant other is at bedside. General: Alert, Oriented x3, Cooperative, No apparent distress HEENT: Atraumatic, Normocephalic Oral: Moist Mucosa Neck: Supple, Trachea Midline Lungs: Clear to auscultation, Diminished Cardiovascular: Regular rate, Regular Rhythm, Normal S1, Normal S2, No murmurs Abdomen: Bowel Sounds Present, Soft, Distended, Tender - LLQ Extremities: No clubbing, No cyanosis, No edema Skin: No rashes, - - Old scratch hartmann to her legs, mostly healed. from cat Musculoskeletal: No Tenderness to Palpation of Joints or Extremities Neurological: Cranial nerves II-XII grossly intact Psych/Mental Status: Appropriate, Flat Affect Objective: Vital Signs Temp Pulse Resp BP Pulse Ox 98.1 F 78 18 173/73 H 99 02/20/21 08:45 02/20/21 15:00 02/20/21 08:45 02/20/21 08:45 02/20/21 08:45 Oxygen Delivery Method Room Air Weight: 86 kg Body Mass Index (BMI) 27.7 Finger Stick Blood Glucose 217 Intake and Output for Last 24 Hours 02/18/21 02/19/21 02/20/21 23:59 23:59 23:59 Intake Total 1929 1027.25 / 1427.25 1004.5 / 1004.5 Output Total 0 / 0 0 / 0 Balance 1929 1027.25 / 1427.25 1004.5 / 1004.5 Microbiology Past 72 Hours 02/18/21 09:15 Blood Culture - Preliminary Blood Culture (Wb) - Anticubital Right No growth in 48 hours. 02/17/21 14:05 Blood Culture - Preliminary Blood Culture (Wb) - Arm Right No growth in 48 hours. 02/16/21 10:10 Blood Culture - Preliminary Blood Culture (Wb) - Anticubital Right No growth in 48 hours. 02/15/21 10:46 Blood Culture - Final Blood Culture (Wb) - Right Hand Staphylococcus aureus 02/15/21 10:45 Bacteria Detection (PCR) - Final Blood Culture (Wb) - Anticubital Left Staphylococcus aureus mecA Resistance Marker Blood Culture - Final Meth. resistant Staph. aureus Laboratory Tests Past 24 Hrs 02/18/21 02/20/21 02/20/21 05:12 05:22 05:22 WBC 3.5 L RBC 2.92 L Hgb 9.1 L Hct 28.2 L MCV 96.6 MCH 31.2 MCHC 32.3 RDW Std Deviation 45.7 H RDW Coeff of Valentina 12.9 Plt Count 64 L MPV 13.1 H Immature Gran % (Auto) 0.900 Neut % (Auto) 57.3 Lymph % (Auto) 24.1 [place] % (Auto) 13.6 H Eos % (Auto) 3.2 Baso % (Auto) 0.9 Absolute Neuts (auto) 2.0 Absolute Lymphs (auto) 0.83 Nucleated RBC % 0 Diff Path Review Reviewed Sodium 139 Potassium 4.6 Chloride 110 H Carbon Dioxide 21.0 Anion Gap 8 BUN 17 Creatinine 0.92 Estim Creat Clear Calc 72.16 Est GFR (MDRD) Af Amer 82 Est GFR (MDRD) Non-Af 68 BUN/Creatinine Ratio 18.4 Glucose 147 H Calcium 8.1 L Phosphorus 1.9 L Total Bilirubin 0.90 AST 60 H ALT 33 Alkaline Phosphatase 274 H Total Protein 6.0 L Albumin 2.2 L Globulin 3.8 Albumin/Globulin Ratio 0.6 L Assessment/Plan All Active Problems Hepatic encephalopathy (Acute) Cellulitis (Acute) JULIANNE (acute kidney injury) (Acute) Acute UTI (Acute) Severe sepsis (Acute) Encephalopathy acute (Acute) MRSA bacteremia (Acute) Weakness (Acute) 50-year-old with history of autoimmune hepatitis, liver cirrhosis with varices, seen today for palliative care consultation for weakness r/t encephalopathy and liver cirrhosis. 1. Weakness and debility: She is ambulatory at home but chooses to have low activity level. Recent encephalopathy related to her liver cirrhosis. No current bleeding varices. She is getting therapy. Also has renal disease with acute kidney injury upon presentation. 2. Chronic pain: Somatic, possibly visceral, and neuropathic in nature. Generalized but mostly medical LLQ, low back, and neuropathy to legs and feet. She has been on multiple sedating medications and had possible toxicity when she presented to the ER with encephalopathy. Would be very cautious with any sedating medications. Currently has tramadol 50 mg every 6 PRN (used once), Tylenol 650 every 8 as needed, and Bentyl for abdominal issues. Has Zofran for nausea, may need something more long-term but will evaluate as an outpatient. 2. Confusion: Acute hepatic encephalopathy-seems to have resolved, being treated with lactulose and rifaximin. Follow-up with specialist at [facility] 3. MRSA bacteremia/severe sepsis: UTI, following with ID, currently on IV vancomycin and plan is for 2 to 3 weeks of IV antibiotics. Supportive care from a palliative perspective, nursing visits to monitor. 4. History of cellulitis/T2 DM/Reilly thyroiditis/schizoaffective disorder/bipolar/splenomegaly/CKD: Complicates overall care and management, defer management to PCP and psychiatrist. Thank you for the opportunity to participate in this patient's care, please do not hesitate to contact [facility] with any further questions or concerns. Palliative direct line is [phone]. We will have RN follow up approximately 3 days after discharge to home and will discuss palliative services further at that time. Greater than 50% of F2F visit dedicated to education and counseling of palliative care services, medications, comorbid conditions and potential assistance with management, and plan of care moving forward. All questions asked and answered. Start time: 1601 End time: 1729
[2021-02-20 17:15] LABS: Bedside Glucose 206 mg/dL (70-110)
[2021-02-20] MEDS: fluvoxaMINE Maleate 50 MG Tablet 100 MG PO (21:25)
[2021-02-20 22:46] LABS: Bedside Glucose 175 mg/dL (70-110)
[2021-02-21 02:34] VITALS: BP 164/74; PULSE 81; RESP 16; TEMP 36.7; O2SAT 94
[2021-02-21] MEDS: 0.9% Saline Lock 10 ML Syringe IV (02:38)
[2021-02-21 03:05] VITALS: PULSE 80
[2021-02-21] MEDS: Nystatin Powder 15gm Bottle 1 APPLIC TOPICAL (06:07)
[2021-02-21] MEDS: Dicyclomine 10 MG Capsule PO ×2 (06:10→10:59)
[2021-02-21 07:52] VITALS: PULSE 80
[2021-02-21 08:06] VITALS: BP 151/68; PULSE 76; RESP 18; TEMP 36.7; O2SAT 97
[2021-02-21] MEDS: Insulin Lispro 100 UNIT/ML INSULN.PEN SC ×2 (08:11→10:59)
[2021-02-21] MEDS: Insulin Lispro 100 UNIT/ML INSULN.PEN 12 UNIT SC ×2 (08:11→10:59)
[2021-02-21] MEDS: Spironolactone 50 MG Tablet 100 MG PO (08:12)
[2021-02-21] MEDS: Potassium Chloride Oral Tablet 20 MEQ PO (08:12)
[2021-02-21] MEDS: Menthol/Lanolin/Calamine/Znox 113 GM Tube 1 APPLIC TOPICAL (08:13)
[2021-02-21] MEDS: Furosemide 20 MG Tablet PO (08:14)
[2021-02-21] MEDS: Pantoprazole Sodium 40 MG Tablet PO (08:14)
[2021-02-21] MEDS: carBAMazepine 200 MG Tablet 100 MG PO (08:14)
[2021-02-21] MEDS: Magnesium Chloride 64 MG Delay Rel.Tablet 128 MG PO (08:14)
[2021-02-21] MEDS: Lisinopril 10 MG Tablet PO (08:15)
[2021-02-21] MEDS: rifAXIMin 550 MG Tablet PO (08:15)
[2021-02-21] MEDS: Ursodiol 250 MG Tablet PO (08:15)
[2021-02-21] MEDS: Ondansetron 4 MG/2 ML Vial IV (08:22)
--- NOTE | 2021-02-21 09:28 | CASEMGMT ---
Addendum entered by Josefa Frias 02/21/21 12:22: Contact info for Nena at [facility] [phone]. Stuart MORRISON CM Addendum entered by Josefa Frias 02/21/21 11:27: Per Ashlee at [facility], they talked to Dr. Melendez and he states he was ok with infusions being given 0800 and 2000. Call to Nena at [facility] to notify of infusion times and to let her know that pt will be discharged and meds just need to be there by 1900. Pt updated on all, voices understanding. Pt voices no further questions/concerns/needs. Stuart MORRISON CM Original Note: This RN CM received message from Nena at [facility] and she states pt is covered at 100% and to call her back with a discharge date/C agency. Call back to Nena and updated, voices understanding. PICC insertion documentation faxed to [facility] as well. Nena states that they can have antibx/supplies to pt home by 1600 today. Nena requests confirmation call back that pt to discharge today after this RN CM speaks with physician and C. Message left with Ashlee at [facility] to advise of plan for discharge today and that supplies will be delivered by 1600. IV antibx script and picc insertion documentation faxed to [facility]. CM to follow. Pt declines need for PT/OT HHC currently. Stuart MORRISON CM
[2021-02-21 11:01] LABS: Bedside Glucose 165 mg/dL (70-110)
--- NOTE | 2021-02-21 11:07 | DCINST_ITS ---
- Discharge Diagnoses Current Active Problems: Current Active and Chronic Problems Hepatic encephalopathy (Acute) Autoimmune hepatitis (Chronic) JULIANNE (acute kidney injury) (Acute) Acute UTI (Acute) Severe sepsis (Acute) Encephalopathy acute (Acute) MRSA bacteremia (Acute) Weakness (Acute) Chronic pain (Chronic) Peripheral neuropathy (Chronic) Diabetes mellitus (Chronic) Liver cirrhosis (Chronic) Reilly thyroiditis (Chronic) Autoimmune hepatitis (Chronic) Schizoaffective disorder (Chronic) Bipolar disorder (Chronic) You will use the following diet at home:: Calorie/Carbohydrate Controlled (specify 1200, 1400, etc) - 1800 ADA diet, Cardiac Your food should be the consistency of: Regular Discharge Activity: May Not Drive - for 1-2 weeks until sees PCP Weight Bearing Status: Weight bearing as tolerated Call your doctor if you observe: Fever of 101 or Higher, Coldness, Increased Pain, Numbness or Tingling, Change in Color, Inability to urinate, Inability to have a bowel movement, Using more than one pad per hour, Shortness of breath, Dizziness, Fainting spells, Swelling in the ankles, Chest pain, Prolonged hiccoughing, Increased palpitations (irregular heartbeat), Calf discomfort, Uncontrolled pain Additional Instructions: Needs to follow-up with GI/sales and training specialist as an outpatient Allergies/Adverse Reactions: Allergies adhesive Allergy (Verified 02/15/21 10:56) Rash escitalopram oxalate [From Lexapro] Allergy (Verified 02/15/21 10:56) blindness gabapentin [From Neurontin] Allergy (Verified 02/15/21 10:56) Alan Jez's Syndrome lamotrigine [From Lamictal] Allergy (Verified 02/15/21 10:56) Blindness Preservatives Allergy (Uncoded 01/09/19 07:10) passed out, lungs deflated Preservatives in various foods including packaged gladys cheese, lettuce, and seafood. sour cream Allergy (Uncoded 01/09/19 07:10) Anaphylaxis Medications to take at Discharge Potassium Chloride [Klor-Con M20] 20 meq PO BID 09/25/15 Albuterol Inhaler [Ventolin Hfa] 2 puff INHALATION Q4H PRN PRN 02/16/16 Magnesium Oxide [Magnesium] 400 mg PO BID 03/14/17 Spironolactone [Aldactone] 100 mg PO DAILY 04/28/17 traMADol [Ultram] 50 mg PO Q6H PRN PRN 04/28/17 Sennosides/Docusate Sodium [Senna Plus Tablet] 1 each PO DAILY PRN 04/29/17 Fluvoxamine Maleate [Luvox] 100 mg PO QHS 11/04/17 Rifaximin [Xifaxan] 550 mg PO BID 11/04/17 Ursodiol [Actigall] 300 mg PO BID 11/04/17 Carbamazepine [Carbatrol] 100 mg PO BID 08/19/18 Cholecalciferol (Vitamin D3) [Vitamin D3] 50,000 unit PO SA 08/19/18 Dicyclomine HCl [Bentyl] 10 mg PO ACHS 08/19/18 Fluticasone Propionate [Flonase Allergy Relief] 15.8 ml NS BID PRN 08/19/18 Sucralfate [Carafate] 1 gm PO ACHS 08/19/18 Omeprazole [Prilosec] 40 mg PO DAILY #0 08/20/18 Baclofen 10 mg PO QHS 01/09/19 Lactulose [Chronulac] 20 gm PO TID 01/09/19 Pregabalin [Lyrica] 50 mg PO BID 11/06/19 Insulin Lispro [Humalog KwikPen] See Protocol [facility] 02/15/21 Vancomycin IV 750 mg IV Q12H 10 Days #20 vial 02/20/21 Furosemide [Lasix] 20 mg PO DAILY #30 tablet 02/21/21 Insulin Degludec [Tresiba Flextouch U-100] 20 unit SQ DAILY #0 02/21/21 Insulin Lispro [Humalog] 14 units SC [facility] #0 02/21/21 Lisinopril [Zestril] 10 mg PO DAILY #30 tablet 02/21/21 The following prescriptions were given: Furosemide [Lasix] 20 mg PO DAILY #30 tablet Transmission Status: Pending to [place] [id number] Vancomycin IV 750 mg IV Q12H 10 Days #20 vial Prescription Printed Lisinopril [Zestril] 10 mg PO DAILY #30 tablet Transmission Status: Pending to [facility] [id number] Primary Care Physician: Janay Canchola MD [Primary Care Provider] - Please follow up with your Primary Care Physician in: IN 1-2 weeks Test Results: Test results from this visit will be discussed in further detail at your follow- up appointment, if applicable. Please Follow Up With: Jon Melendez MD When: as needed for MRSA Pneumonia with bacteremia
--- NOTE | 2021-02-21 11:14 | DS.PCM_ITS ---
Discharge Date and Diagnosis - Problem List Patient Problems: Active and Suspected Problems Hepatic encephalopathy (Acute) JULIANNE (acute kidney injury) (Acute) Acute UTI (Acute) Severe sepsis (Acute) Encephalopathy acute (Acute) MRSA bacteremia (Acute) Weakness (Acute) Date of Admission: 02/15/21 Date of Discharge: 02/21/21 - Primary Discharge Diagnosis Acute Problems: Active Problems Hepatic encephalopathy (Acute) JULIANNE (acute kidney injury) (Acute) Acute MRSA UTI (Acute) Severe sepsis (Acute) Encephalopathy acute (Acute) MRSA bacteremia (Acute) due to acute MRSA UTI Weakness (Acute) - Secondary Discharge Diagnosis Chronic Problems: Chronic Problems Autoimmune hepatitis (Chronic) Chronic pain (Chronic) Peripheral neuropathy (Chronic) Diabetes mellitus (Chronic) Liver cirrhosis (Chronic) Reilly thyroiditis (Chronic) Autoimmune hepatitis (Chronic) Schizoaffective disorder (Chronic) Bipolar disorder (Chronic) Splenomegaly (Chronic) Hospital Course and Treatment Operations: - - Irrigation debridement right thigh abscess 11/07/19 Summary of Care Provided: The patient is a 50 year old F with past medical history of autoimmune hepatitis related decompensated cirrhosis of the liver, type II DM who was admitted with unresponsiveness and fever. 1. Acute metabolic encephalopathy, resolved: Patient was seen admitted in ICU and seen by dog day care attendant. Subsequently patient was transferred to PCU after improvement. 2. MRSA bacteremia/severe sepsis secondary to acute MRSA UTI: Patient has been afebrile for more than 72 hours. Blood culture negative for more than 48 hours since 02/16, 02/17 and 02/18. 2D echo shows normal EF, no valvular lesions. Seen by ID. Patient discharged on vancomycin for 10 more days to complete a total of 2 weeks. Patient has left arm PICC line. 3. Pancytopenia with absolute neutrophil count of 2000, secondary to bacteremia/sepsis: WBC count is improved to 3.5 thousand. ANC 2.0 thousand 3. 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 Electrolytes are in normal range except chloride 110. Blood pressure high, lisinopril 10 mg daily added. No significant ascites or peripheral edema. Patient required 1500 mL paracentesis in October 2019. Advised to follow-up with senior mobile developer. Total bilirubin, 1.7 and beginning improved to 0.9. INR 1.4 and creatinine normal. Patient is on spironolactone, ursodiol, lactulose, rifaximin. Lasix 20mg patient with leg edema. 4. Type II DM, with uncontrolled hyperglycemia: Blood sugar was controlled Continue to Lantus with premeal insulin 5. Hypokalemia, replaced and corrected 6. CKD stage IIIa, with proteinuria. Proteinuria may be acute from UTI. 7. Chronic thrombocytopenia secondary to liver cirrhosis, hold off on heparin, monitor CBC. 8. DVT PPx- SCDs Discharge medication reconciliation done. Discharge follow-up instructions completed. Discharge process discussed with the patient and all questions were answered to patient's satisfaction. Total time spent, exact 35 minutes on discharge meds reconciliation, examination, coordination of care with nurses and ancillary staff, review of i maging and blood test and discussion with the patient on follow-up instructions Patient Problems: Active and Suspected Problems Hepatic encephalopathy (Acute) JULIANNE (acute kidney injury) (Acute) Acute UTI (Acute) Severe sepsis (Acute) Encephalopathy acute (Acute) MRSA bacteremia (Acute) Weakness (Acute) Objective: Patient is on her baseline. No shortness of breath or fever. No hypoxia. Physical exam General: Alert, Oriented x3, Cooperative thin looking BMI 28.8 kg/m? HEENT: Atraumatic, PERRLA, EOMI, Normocephalic Oral: No Gingival or Mucosal Lesions/ Ulcerations Neck: Supple, No JVD, Negative Carotid Bruits Lungs: Air entry diminished in bilateral lung bases. No crepitation/rhonchi Cardiovascular: Regular rate, Regular Rhythm, Normal S1, Normal S2, No murmurs Abdomen: Bowel Sounds Present, Soft, Non Tender, Non-Distended : No renal angle tenderness. No suprapubic tenderness. Extremities: No ankle edema, Capillary Refill Less than 3 Seconds Skin: No rashes, No breakdown Musculoskeletal: Mild muscle atrophy of extremities. No Tenderness to Palpation of Joints or Extremities Neurological: Cranial nerves II-XII grossly intact, Deep Tendon Reflexes 2+/4 and Symmetrical, Neuro grossly intact Psych/Mental Status: Normal Affect, Appropriate. - Physical Exam Vitals/I&O's: Vital Signs Temp Pulse Resp BP Pulse Ox 98.0 F 76 18 151/68 H 97 02/21/21 08:06 02/21/21 08:06 02/21/21 08:06 02/21/21 08:06 02/21/21 08:06 Oxygen Delivery Method Room Air Weight: 184 lb 1.376 oz Body Mass Index (BMI) 27.7 Finger Stick Blood Glucose 217 Intake and Output for Last 24 Hours 02/19/21 02/20/21 02/21/21 23:59 23:59 23:59 Intake Total 1027.25 / 1427.25 1389.5 / 1389.5 498.00 / 498.00 Output Total 0 / 0 0 / 0 Balance 1027.25 / 1427.25 1389.5 / 1389.5 498.00 / 498.00 Microbiology Past 72 Hours 02/16/21 10:10 Blood Culture (Wb) - Anticubital Right Blood Culture - Final No growth in 5 days. 02/18/21 09:15 Blood Culture (Wb) - Anticubital Right Blood Culture - Preliminary No growth in 48 hours. 02/17/21 14:05 Blood Culture (Wb) - Arm Right Blood Culture - Preliminary No growth in 48 hours. Laboratory Results 02/18/21 05:12: Diff Path Review Reviewed 02/20/21 12:07: POC Glucose 301 H 02/20/21 16:54: POC Glucose 206 H 02/20/21 21:18: POC Glucose 175 H 02/21/21 08:10: POC Glucose 165 H Current Medications Acetaminophen (Acetaminophen 325 Mg Tablet) 650 mg PO Q8H PRN PRN PRN Reason: Pain Score 1-10/Temp > 100.7 F Last Admin: 02/19/21 21:16 Dose: 650 mg Documented by: Albuterol Sulfate (Albuterol 2.5 Mg/3 Ml Vial.Neb.) 2.5 mg INHALATION Q2H PRN PRN PRN Reason: SOB/Wheezing Calamine/Phenol (Menthol/Lanolin/Calamine/Znox 113 Gm Tube) 1 applic TOPICAL BID YONI; Protocol Last Admin: 02/21/21 08:13 Dose: 1 applic Documented by: Carbamazepine (Carbamazepine 200 Mg Tablet) 100 mg PO BID [facility] Last Admin: 02/21/21 08:14 Dose: 100 mg Documented by: Dextrose (Dextrose 50%-Water 25 Gm/50 Ml Disp.Syrin) 0 gm IV X1 PRN; Protocol PRN Reason: Hypoglycemia Dicyclomine HCl (Dicyclomine 10 Mg Capsule) 10 mg PO ACHS [facility] Last Admin: 02/21/21 10:59 Dose: 10 mg Documented by: Docusate Sodium (Docusate Sodium 100 Mg Capsule) 100 mg PO BID PRN PRN PRN Reason: Constipation Fluvoxamine Maleate (Fluvoxamine Maleate 50 Mg Tablet) 100 mg PO QHS [facility] Last Admin: 02/20/21 21:25 Dose: 100 mg Documented by: Furosemide (Furosemide 20 Mg Tablet) 20 mg PO DAILY [facility] Last Admin: 02/21/21 08:14 Dose: 20 mg Documented by: Glucagon (Glucagon 1 Mg/Ml Syringe) 1 mg IM .X1 PRN PRN Reason: Hypoglycemia Hydralazine HCl (Hydralazine 20 Mg/Ml Vial) 10 mg IV Q4H PRN PRN PRN Reason: SBP more than 180 mmHg Vancomycin IV Pharmacy to Dose (1 each/ Sodium Chloride) 500 mls @ 250 mls/hr IV PRN PRN; Protocol PRN Reason: Rx to Dose Sodium Chloride () 250 mls @ 15 mls/hr IV .[id number] PRN PRN Reason: Saline Flush Last Infusion: 02/21/21 06:11 Dose: 0 mls/hr Documented by: Sodium Chloride () 250 mls @ 15 mls/hr IV .[id number] PRN PRN Reason: Additional IVPB Infusion Last Infusion: 02/16/21 10:59 Dose: Infused Documented by: Vancomycin HCl 750 mg/ Sodium (Chloride) 265 mls @ 250 mls/hr IV Q12H [facility] Last Infusion: 02/21/21 04:00 Dose: Infused Documented by: Insulin Glargine (Insulin Glargine 100 Units/Ml Pen) 10 units SC BID [facility] Last Admin: 02/21/21 08:13 Dose: 10 u Documented by: Insulin Human Lispro (Insulin Lispro 100 Unit/Ml Insuln.Pen) 0 unit SC [facility]; Protocol Last Admin: 02/21/21 10:59 Dose: 1 units Documented by: Insulin Human Lispro (Insulin Lispro 100 Unit/Ml Insuln.Pen) 12 unit SC [facility] Last Admin: 02/21/21 10:59 Dose: 12 u Documented by: Lactulose (Lactulose 20 Gm/30 Ml Udc) 20 gm PO TIDCM [facility] Last Admin: 02/21/21 08:16 Dose: Not Given Documented by: Lisinopril (Lisinopril 10 Mg Tablet) 10 mg PO DAILY [facility] Last Admin: 02/21/21 08:15 Dose: 10 mg Documented by: Magnesium Chloride (Magnesium Chloride 64 Mg Delay Rel.Tablet) 128 mg PO BID [facility] Last Admin: 02/21/21 08:14 Dose: 128 mg Documented by: Nystatin (Nystatin Powder 15gm Bottle) 1 applic TOPICAL TID [facility]; Protocol Last Admin: 02/21/21 06:07 Dose: 1 applic Documented by: Ondansetron HCl (Ondansetron 4 Mg/2 Ml Vial) 4 mg IV Q6H PRN PRN PRN Reason: NAUSEA Last Admin: 02/21/21 08:22 Dose: 4 mg Documented by: Pantoprazole Sodium (Pantoprazole Sodium 40 Mg Tablet) 40 mg PO DAILY [facility] Last Admin: 02/21/21 08:14 Dose: 40 mg Documented by: Potassium Chloride (Potassium Chloride Oral Tablet 20 Meq) [facility] Last Admin: 02/21/21 08:12 Dose: 20 meq Documented by: Rifaximin (Rifaximin 550 Mg Tablet) 550 mg PO BID [facility] Last Admin: 02/21/21 08:15 Dose: 550 mg Documented by: Sodium Chloride (0.9% Saline Lock 10 Ml Syringe) 10 - 40 ml IV UD PRN PRN Reason: SALINE FLUSH Last Admin: 02/21/21 02:38 Dose: 10 ml Documented by: Spironolactone (Spironolactone 50 Mg Tablet) 100 mg PO DAILY [facility] Last Admin: 02/21/21 08:12 Dose: 100 mg Documented by: Tramadol HCl (Tramadol 50 Mg Tablet) 50 mg PO Q6H PRN PRN PRN Reason: PAIN 1-08/27 Last Admin: 02/20/21 21:32 Dose: 50 mg Documented by: Ursodiol (Ursodiol 250 Mg Tablet) 250 mg PO BID [facility] Last Admin: 02/21/21 08:15 Dose: 250 mg Documented by: Discharge Activity: May Not Drive - for 1-2 weeks until sees PCP Weight Bearing Status: Weight bearing as tolerated Call your doctor if you observe: Fever of 101 or Higher, Coldness, Increased Pain, Numbness or Tingling, Change in Color, Inability to urinate, Inability to have a bowel movement, Using more than one pad per hour, Shortness of breath, Dizziness, Fainting spells, Swelling in the ankles, Chest pain, Prolonged hiccoughing, Increased palpitations (irregular heartbeat), Calf discomfort, Uncontrolled pain Home Medications: Medications to take at Discharge Potassium Chloride [Klor-Con M20] 20 meq PO BID 09/25/15 Albuterol Inhaler [Ventolin Hfa] 2 puff INHALATION Q4H PRN PRN 02/16/16 Magnesium Oxide [Magnesium] 400 mg PO BID 03/14/17 Spironolactone [Aldactone] 100 mg PO DAILY 04/28/17 traMADol [Ultram] 50 mg PO Q6H PRN PRN 04/28/17 Sennosides/Docusate Sodium [Senna Plus Tablet] 1 each PO DAILY PRN 04/29/17 Fluvoxamine Maleate [Luvox] 100 mg PO QHS 11/04/17 Rifaximin [Xifaxan] 550 mg PO BID 11/04/17 Ursodiol [Actigall] 300 mg PO BID 11/04/17 Carbamazepine [Carbatrol] 100 mg PO BID 08/19/18 Cholecalciferol (Vitamin D3) [Vitamin D3] 50,000 unit PO SA 08/19/18 Dicyclomine HCl [Bentyl] 10 mg PO [facility] 08/19/18 Fluticasone Propionate [Flonase Allergy Relief] 15.8 ml NS BID PRN 08/19/18 Sucralfate [Carafate] 1 gm PO [facility] 08/19/18 Omeprazole [Prilosec] 40 mg PO DAILY #0 08/20/18 Baclofen 10 mg PO QHS 01/09/19 Lactulose [Chronulac] 20 gm PO TID 01/09/19 Pregabalin [Lyrica] 50 mg PO BID 11/06/19 Insulin Lispro [Humalog KwikPen] See Protocol [facility] 02/15/21 Vancomycin IV 750 mg IV Q12H 10 Days #20 vial 02/20/21 Furosemide [Lasix] 20 mg PO DAILY #30 tablet 02/21/21 Insulin Degludec [Tresiba Flextouch U-100] 20 unit SQ DAILY #0 02/21/21 Insulin Lispro [Humalog] 14 units SC [facility] #0 02/21/21 Lisinopril [Zestril] 10 mg PO DAILY #30 tablet 02/21/21 Following Prescriptions Were Given to Patient: Furosemide [Lasix] 20 mg PO DAILY #30 tablet Transmission Status: Received by [place] [id number] Vancomycin IV 750 mg IV Q12H 10 Days #20 vial Prescription Printed Lisinopril [Zestril] 10 mg PO DAILY #30 tablet Transmission Status: Received by [place] [id number] Primary Care Physician: Janay Canchola MD [Primary Care Provider] - Please follow up with your Primary Care Physician in: IN 1-2 weeks Please Follow Up With: Jon Melendez MD When: as needed for MRSA Pneumonia with bacteremia Medical Necessity - Tobacco Use Smoking Status: Never smoker Tobacco Use: Non-smoker Meaningful Use Info Meaningful Use Diagnoses (Choose all that apply): None applicable Inpatient E&M: [id number] [facility]
[2021-02-21 11:26] LABS: Bedside Glucose 167 mg/dL (70-110)
--- NOTE | 2021-02-22 13:03 | CASEMGMT ---
RN CM Discharge F/U Phone Call LACE: 12 Strata: 3 Discharge date: 02/21/21 Call date: 02/22/21 Call time: 1304 Admission dx: UTI w/ encephalopathy, sepsis Pt states has had some mouth/lip burning and headache w/ light sensitivity that were present prior to discharge and that [facility] is working on possible meds for same. Pt states C came out last evening and everything has gone well with infusions. Pt states unable to get into see PCP and pt reminded of f/u appt scheduled for 02/28/21 at 1100, voices understanding. Pt aware to call PCP for any further concerns. Pt states no suggestions for [facility]. Pt voices no further questions/concerns/needs and is aware that this RN CM will call [facility] in regards to pt concerns. Message left with Ashlee at [facility] in regards to whether [facility] nurse working on meds for pt. SStaten ATMIKO MELLO
== END 2021-02-21 14:30 | disposition home health service (06) | DRG 871 ==
LOC: ED 12:33 → ICU 12:37 → PCU 02-16 11:00
PROVIDERS: Hospitalist; Internal Medicine Infectious Disease; Admitting Provider Internal Medicine; Emergency Provider Emergency Medicine; PCP Internal Medicine; Visit Provider Internal Medicine
DX: A41.02 Sepsis due to Methicillin resistant Staphylococcus aureus (principal); R65.21 Severe sepsis with septic shock; G93.41 Metabolic encephalopathy; K72.00 Acute and subacute hepatic failure without coma; N39.0 Urinary tract infection, site not specified; N17.9 Acute kidney failure, unspecified; D61.818 Other pancytopenia; E11.40 Type 2 diabetes mellitus with diabetic neuropathy, unspecified; E11.22 Type 2 diabetes mellitus with diabetic chronic kidney disease; F25.1 Schizoaffective disorder, depressive type; F31.9 Bipolar disorder, unspecified; K75.4 Autoimmune hepatitis; E06.3 Autoimmune thyroiditis; K74.60 Unspecified cirrhosis of liver; E11.65 Type 2 diabetes mellitus with hyperglycemia; N18.31 Chronic kidney disease, stage 3a; E87.6 Hypokalemia; Z79.4 Long term (current) use of insulin; Z79.899 Other long term (current) drug therapy; G89.4 Chronic pain syndrome
CPT/HCPCS: 36415; 36569; 51702; 70450; 71045; 80053; 80202; 81001; 82140; 82550; 82803; 82962; 83605; 83735; 84100; 84443; 84484; 85025; 85610; 85730; 87040; 87077; 87086; 87088; 87149; 87186; 87426; 93005; 93306; 97110; 97116; 97161; 97166; 97530; 97535; 97803; 99285; J7030; J7050; Q9957; A4216; J2405

== ENCOUNTER 2021-03-13 13:36 | Outpatient (RCR) | payer MEDICARE, MEDICAID, SELFPAY ==
[2021-02-15 14:09] VITALS: BMI 27.7
[2021-02-27 09:02] LABS: Hematocrit 23.9 % (37-47); Hemoglobin 8.2 g/dL (12.0-15.0); Mean Corp Hgb Conc 34.3 g/dL (32-36); Mean Corpuscular Hgb 30.9 pg (27.0-32.0); Mean Corpuscular Volume 90.2 fL (81-99); Mean Platelet Vol. 10.5 fl (6.2-12.0); Platelet Count 111 K/mm3 (150-450); RBC Distribution Width CV 13.5 % (11.6-14.6); RBC Distribution Width SD 43.9 fl (35.1-43.9); Red Blood Count 2.65 M/mm3 (4.2-5.4); White Blood Count 3.3 K/mm3 (4.4-11.0)
[2021-02-27 09:16] LABS: Anion Gap 4 (5-15); BUN 9 mg/dL (7-18); BUN/Creat Ratio 9.8 RATIO (10-20); Calcium,Total 8.2 mg/dL (8.5-10.1); Chloride 107 mmol/L (98-107); Creatinine, Serum 0.92 mg/dL (0.55-1.02); EST Glomerular Filtration Rate 68 mL/min (>60); Est Glom Filt Rate - Afr Amer 83 mL/min (>60); Glucose 168 mg/dL (74-106); Sodium Level 140 mmol/L (136-145)
[2021-02-27 09:18] LABS: Vancomycin, Trough Level 15.2 ug/mL (5.0-15.0)
[2021-03-13 14:19] LABS: Hematocrit 22.3 % (37-47); Hemoglobin 7.7 g/dL (12.0-15.0); Mean Corp Hgb Conc 34.5 g/dL (32-36); Mean Corpuscular Hgb 31.2 pg (27.0-32.0); Mean Corpuscular Volume 90.3 fL (81-99); Mean Platelet Vol. 11.7 fl (6.2-12.0); POSITIVE COUNT YES; Platelet Count 53 K/mm3 (150-450); RBC Distribution Width CV 14.5 % (11.6-14.6); RBC Distribution Width SD 47.9 fl (35.1-43.9); Red Blood Count 2.47 M/mm3 (4.2-5.4); White Blood Count 2.3 K/mm3 (4.4-11.0)
[2021-03-13 14:20] LABS: Scan Indicated on CBC? Y/N YES- FLAGS NOTED
[2021-03-13 14:34] LABS: ALB/GLOB Ratio 0.5 RATIO (0.9-2.4); AST(SGOT) 55 U/L (15-37); Alanine Aminotransfer ALT/SGPT 39 U/L (13-56); Albumin, Serum 2.6 g/dL (3.2-5.0); Alkaline Phosphatase 312 U/L (45-117); Anion Gap 7 (5-15); BUN 18 mg/dL (7-18); BUN/Creat Ratio 12.9 RATIO (10-20); Calcium,Total 8.5 mg/dL (8.5-10.1); Chloride 105 mmol/L (98-107); EST Glomerular Filtration Rate 42 mL/min (>60); Est Glom Filt Rate - Afr Amer 51 mL/min (>60); Globulin 4.8 g/dL (2.2-4.2); Glucose 348 mg/dL (74-106); Potassium 3.3 mmol/L (3.5-5.1); Protein, Total 7.4 g/dL (6.4-8.2); Sodium Level 139 mmol/L (136-145)
[2021-03-17 12:57] LABS: CPK Total, Creatine Kinase 66 U/L (26-192)
== END 2021-03-17 23:59 ==
LOC: HHLAB 13:36
PROVIDERS: PCP Internal Medicine; Referring Provider Internal Medicine Infectious Disease; Visit Provider Internal Medicine Infectious Disease
DX: N39.0 Urinary tract infection, site not specified (principal); B95.62 Methicillin resistant Staphylococcus aureus infection as the cause of diseases classified elsewhere
CPT/HCPCS: 80048; 80053; 80202; 82550; 85027

== ENCOUNTER 2021-03-20 12:34 | Inpatient (IN) | payer MEDICARE, MEDICAID, SELFPAY ==
[2021-02-15 14:09] VITALS: BMI 27.7
[2021-03-20] VITALS (9 sets, daily range): BP systolic 153–190; BP diastolic 72–84; PULSE 71–93; RESP 14–18; TEMP 36.1–36.7; O2SAT 97–100; BMI 25.8; BMI 26.5
--- NOTE | 2021-03-20 13:31 | EKG12_ITS ---
Test Reason : HTN Blood Pressure : / mmHG Vent. Rate : 073 BPM Atrial Rate : 073 BPM P-R Int : 164 ms QRS Dur : 110 ms QT Int : 452 ms P-R-T Axes : 035 -33 083 degrees QTc Int : 497 ms Normal sinus rhythm Left axis deviation Left ventricular hypertrophy Prolonged QT Nonspecific ST and T wave abnormality Abnormal ECG Confirmed by PAM ZAMBRANO, RANCHO ([id number]), offline editor NORA MENDES ([id number]) on 03/22/2021 8:53:43 AM Referred By: JOHN Confirmed By:RANCHO OROZCO MD
--- NOTE | 2021-03-20 13:31 | CT_ITS ---
STUDY: CT BRAIN WITHOUT CONTRAST REASON FOR EXAM: Female, 50 years old. Headache, hypertension RADIATION DOSAGE (If Supplied By Facility): CTDIvol = ( 44.99 ) mGy, DLP = ( 745.49 ) mGycm TECHNIQUE: Transaxial CT imaging of the brain was performed without administration of intravenous contrast material. Individualized dose optimization techniques were used for this CT. COMPARISON: Comparison is made with prior study dated 02/15/2021. FINDINGS: Normal soft tissue structures. Normal calvarium. Normal size ventricles and extra-axial spaces for the patient''s age. Normal white matter tracts of the cerebral hemispheres. Normal basal ganglia and thalami. Normal brainstem. Normal cerebellum. Prominence of the cisterna magna. This is a normal variant. This is unchanged. There is no intracranial hemorrhage. There are no findings of an acute ischemic infarction. Normal visualized paranasal sinuses. CT/Brain/Head without Contrast IMPRESSION: Normal unenhanced CT scan of the brain. Electronically Signed: Dash Shin MD at 14:16 EDT , Service support ,
--- NOTE | 2021-03-20 13:33 | EX.ED.DYSGE1 ---
HPI History of Present Illness Chief Complaint: Hypertension Detail of Chief Complaint: Presents with hypertension and headache Informant: patient Onset/Context/Timing Current Severity: 02/25 Narrative Narrative: .In by EMS today for complaint of hypertension. Patient was being seen by her visiting nurse to have her PICC line evaluated and have blood work drawn when it was noted that her blood pressure was elevated to 230/110. Patient was complaining of a headache and she states that she had nausea yesterday and vomited multiple times. Patient has history of cirrhosis of the liver as well as diabetes, hypertension, high cholesterol. She rates her headache a 4 out of 10 currently. Patient states she recently started a diuretic for elevated blood pressures. She recently was admitted to our facility and then also to [facility] for history of sepsis and MRSA infection related to urine. [facility] Medical History (Updated 03/20/21 @ 15:[address] Jessica Gonzales, ) Diabetes Home Medications Potassium Chloride [Klor-Con M20] 20 meq PO BID 09/25/15 [History Last Taken 11/05/19] albuterol sulfate [Ventolin HFA] 2 puff INHALATION Q4H PRN PRN 02/16/16 [History Last Taken 11/04/19] magnesium oxide 400 mg PO BID 03/14/17 [History Last Taken 11/05/19] spironolactone [Aldactone] 100 mg PO DAILY 04/28/17 [History Last Taken 11/04/19] tramadol 50 mg PO Q6H PRN PRN 04/28/17 [History Last Taken Unknown] sennosides-docusate sodium [Senna Plus] 1 ea PO DAILY PRN 04/29/17 [History Last Taken 08/19/18] fluvoxamine 100 mg PO QHS 11/04/17 [History Last Taken 11/04/19] rifaximin [Xifaxan] 550 mg PO BID 11/04/17 [History Last Taken 11/05/19] ursodiol [Actigall] 300 mg PO BID 11/04/17 [History Last Taken 11/05/19] carbamazepine [Carbatrol] 100 mg PO BID 08/19/18 [History Last Taken 11/05/19] cholecalciferol (vitamin D3) 50,000 unit PO SA 08/19/18 [History Last Taken 10/31/19] dicyclomine 10 mg PO ACHS 08/19/18 [History Last Taken 11/05/19] fluticasone propionate [Flonase Allergy Relief] 15.8 ml NS BID PRN 08/19/18 [History Last Taken Unknown] sucralfate 1 g PO ACHS 08/19/18 [History Last Taken 11/05/19] omeprazole 40 mg PO DAILY #0 08/20/18 [Rx Last Taken 11/05/19] baclofen 10 mg PO QHS 01/09/19 [History Last Taken 11/04/19] lactulose 20 g PO TID 01/09/19 [History Last Taken 10/30/19] pregabalin 50 mg PO BID 11/06/19 [History Last Taken 11/05/19 06:00] insulin lispro See Protocol SC [facility] 02/15/21 [History Last Taken Unknown] furosemide 20 mg PO DAILY #30 tablet 02/21/21 [Rx Last Taken Unknown] insulin degludec 20 unit SQ DAILY #0 02/21/21 [Rx Last Taken 11/05/19] insulin lispro 14 units SC [facility] #0 02/21/21 [Rx Last Taken 11/05/19] lisinopril 10 mg PO DAILY #30 tablet 02/21/21 [Rx Last Taken Unknown] Allergy/AdvReac Type Severity Reaction Status Date / Time adhesive Allergy Rash Verified 03/20/21 12:35 escitalopram oxalate Allergy blindness Verified 03/20/21 12:35 [From Lexapro] gabapentin [From Neurontin] Allergy Alan Verified 03/20/21 12:35 Jez's Syndrome lamotrigine [From Lamictal] Allergy Blindness Verified 03/20/21 12:35 Preservatives Allergy passed Uncoded 01/09/19 07:10 out, lungs deflated sour cream Allergy Anaphylaxis Uncoded 01/09/19 07:10 Social History Smoking Status: Never smoker ROS ROS ED Constitutional Constitutional ED: Reports systems reviewed and no addt'l complaints, except as documented; Denies body ache(s), change in weight or chills Eyes Eyes: Denies acute decrease in peripheral vision, change in vision, double vision or loss of vision ENT ENT ED: Reports none; Denies ear pain, lip swelling, loss taste/smell, neck pain, otalgia or sore throat Cardiovascular Cardiovascular: Reports none; Denies abdominal pain, chest pain with activity, leg edema, lightheadedness, palpitations, rapid heart rate or syncope Respiratory/Chest Respiratory/Chest: Reports none; Denies change in mental status, dry cough, dyspnea, hemoptysis, shortness of breath at rest or shortness of breath with exertion Gastrointestinal Gastrointestinal: Reports none; Denies abdominal pain, change in stool character, diarrhea, hematemesis, hematochezia, melena, rectal bleeding or vomiting Genitourinary Genitourinary ED: Reports none; Denies abdominal discomfort, anuria, dysuria, genital pain or polyuria Musculoskeletal Musculoskeletal: Reports none; Denies arthralgias, back pain, difficulty walking, extremity pain, muscle weakness or myalgias Integumentary Reports none; Denies abscess or rash Neurologic Neurologic: Reports none and headache(s); Denies abnormal gait, confusion, focal weakness, frequent falls, loss of vision, numbness, paresthesias, radicular pain, vertigo or weakness Psychiatric Psychiatric: Reports systems reviewed and no addt'l complaints, except as documented and none; Denies behavioral changes, confusion, difficulty concentrating, hallucinations, suicidal ideation, tactile hallucinations or visual hallucinations Endocrine Endocrinology: Denies none, cold intolerance, excessive sweating, fatigue or heat intolerance Hematologic/Lymphatic Hematologic/Lymphatic: Reports none; Denies anemia, easy bleeding or easy bruising Allergic/Immunologic Allergic/Immunologic ED: Denies as per HPI, none, lip swelling, mouth swelling, throat swelling, tongue swelling or hives EXAM Physical Exam Const Vital Signs: 03/20/21 12:35 03/20/21 14:42 03/20/21 14:43 Temperature 97.5 F L Temperature Source Temporal Pulse Rate 79 76 Respiratory Rate 16 18 Respiratory Effort Normal Non-Labored Respiratory Pattern Normal Blood Pressure 190/84 H 178/75 H Blood Pressure Mean 119 109 Pulse Ox 100 100 Oxygen Delivery Method Room Air Room Air Positive well nourished and well developed General Appearance ED: well developed and NAD HEENT Reports TM's clear and moist mucous membranes normocephalic and atraumatic; Negative for trauma or tenderness Tympanic Membrane ED: Yes TM's clear Eyes PERRL and EOMs intact bilaterally General Eye ED: Negative for pale conjunctiva or scleral icterus Neck no lymphadenopathy, supple and no JVD General: Negative for tenderness Chest Wall inspection of chest normal and palpation of chest normal Chest: Negative for tenderness Resp normal respiratory effort and clear to auscultation bilaterally Effort and Inspection: Negative for respiratory distress or pain with movement Auscultation: Negative for rhonchi, wheezes or diminished lung sounds Cardio regular rate, regular rhythm, S1 normal heart sound, S2 normal heart sound and no murmurs Peripheral Pulses: pulses 2+ throughout GI normal to inspection, nondistended, normoactive bowel sounds, soft to palpation, non-tender, non-distended and no masses Back/Spine no CVA tenderness and no thoracic nor lumbar tenderness Extremity normal to inspection Extremity Narrative: Patient has a PICC line to right upper arm General Extremety ED: Negative for edema General Extremity: Negative for edema Neuro oriented x3, CN's II-XII intact bilaterally, no sensory deficits noted and gait normal Sensorium / Orientation: awake, alert, oriented to person, oriented to place and oriented to time Motor Exam: strength 5/5 throughout and strength abnormal Psych mental status grossly normal Skin no rashes or lesions noted and no wounds MDM MDM MDM Narrative Medical decision making narrative: Patient noted to have elevated troponin as well as hyperglycemia. She received Zofran for her nausea and continues to be nauseated. She is not describing any chest pain. Concern patient may have non-ST elevation NC. Case will be discussed with hospitalist evaluate for admission. Lab Data Attestation: I reviewed the patient's lab results. Labs: Laboratory Results - last 24 hr 03/20/21 03/20/21 03/20/21 13:55 13:55 13:55 WBC 2.6 L RBC 2.71 L Hgb 8.4 L Hct 24.4 L MCV 90.0 MCH 31.0 MCHC 34.4 RDW Std Deviation 47.8 H RDW Coeff of Valentina 14.6 Plt Count 78 L MPV 11.3 Immature Gran % (Auto) 0.400 Neut % (Auto) 67.1 Lymph % (Auto) 17.6 L Edwards % (Auto) 8.6 Eos % (Auto) 4.7 Baso % (Auto) 1.6 H Absolute Neuts (auto) 1.7 L Absolute Lymphs (auto) 0.45 L Nucleated RBC % 0 Differential Comment Diff Path Review May foll Platelet Estimate MOD DEC Sodium 139 Potassium 3.3 L Chloride 106 Carbon Dioxide 24.0 Anion Gap 9 BUN 18 Creatinine 1.35 H Estim Creat Clear Calc 50.94 Est GFR (MDRD) Af Amer 53 L Est GFR (MDRD) Non-Af 44 L BUN/Creatinine Ratio 13.3 Glucose 389 H Lactic Acid Calcium 8.3 L Total Bilirubin 1.00 AST 44 H ALT 46 Alkaline Phosphatase 241 H Troponin I 0.317 H Total Protein 7.7 Albumin 2.7 L Globulin 5.0 H Albumin/Globulin Ratio 0.5 L Urine Color Yellow Urine Clarity Sl. Cloudy Urine pH 7.0 Ur Specific [place] 1.010 Urine Protein Negative Urine Glucose (UA) 1000 H Urine Ketones Negative Urine Occult Blood 150 H Urine Nitrite Negative Urine Bilirubin Negative Urine Urobilinogen 1 H Ur Leukocyte Esterase Negative Urine RBC 10-25 SEEN Urine WBC 0 SEEN Ur Squamous Epith Cells 0-5 SEEN Urine Bacteria RARE Urine Mucus 0 SEEN Urine Yeast RARE 03/20/21 13:55 WBC RBC Hgb Hct MCV MCH MCHC RDW Std Deviation RDW Coeff of Valentina Plt Count MPV Immature Gran % (Auto) Neut % (Auto) Lymph % (Auto) Edwards % (Auto) Eos % (Auto) Baso % (Auto) Absolute Neuts (auto) Absolute Lymphs (auto) Nucleated RBC % Differential Comment Diff Path Review Platelet Estimate Sodium Potassium Chloride Carbon Dioxide Anion Gap BUN Creatinine Estim Creat Clear Calc Est GFR (MDRD) Af Amer Est GFR (MDRD) Non-Af BUN/Creatinine Ratio Glucose Lactic Acid 1.9 Calcium Total Bilirubin AST ALT Alkaline Phosphatase Troponin I Total Protein Albumin Globulin Albumin/Globulin Ratio Urine Color Urine Clarity Urine pH Ur Specific [place] Urine Protein Urine Glucose (UA) Urine Ketones Urine Occult Blood Urine Nitrite Urine Bilirubin Urine Urobilinogen Ur Leukocyte Esterase Urine RBC Urine WBC Ur Squamous Epith Cells Urine Bacteria Urine Mucus Urine Yeast Radiography Diagnostic Testing: Radiology Impression Brain CT 03/20/21 13:31 IMPRESSION: Normal unenhanced CT scan of the brain. Electronically Signed: Dash Shin MD at 14:16 EDT , Service support , EKG Initial EKG: Comments: Sinus rhythm with a ventricular rate of 73 bpm with LVH noted and slightly prolonged QT. When compared with prior EKG from February 15, 2021 no significant changes noted. Prior: Unchanged Discharge Plan Triage Chief Complaint: Hypertension ED Provider: Jessica Gonzales Dx/Rx/DC Orders Clinical Impression: Non-ST elevated myocardial infarction, Hypertension, Hyperglycemia Prescriptions: No Action Potassium Chloride [Klor-Con M20] 20 MEQ Tab.Er.Prt 20 meq PO BID RF: 0 albuterol sulfate [Ventolin HFA] 1 INHALER inhaler 2 puff inhalation Q4H PRN PRN (Reason: Sob &/Or Wheezing) RF: 0 magnesium oxide 400 MG tablet 400 mg PO BID RF: 0 spironolactone [Aldactone] 100 MG tablet 100 mg PO DAILY RF: 0 tramadol 50 MG tablet 50 mg PO Q6H PRN PRN (Reason: Pain) RF: 0 sennosides-docusate sodium [Senna Plus] 1 EACH tablet 1 ea PO DAILY PRN (Reason: Constipation) RF: 0 ursodiol [Actigall] 300 MG capsule 300 mg PO BID RF: 0 rifaximin [Xifaxan] 550 MG tablet 550 mg PO BID RF: 0 fluvoxamine 25 MG tablet 100 mg PO QHS RF: 0 fluticasone propionate [Flonase Allergy Relief] 9.9 ML [place].Susp 15.8 ml NS BID PRN (Reason: Allergies) RF: 0 dicyclomine 10 MG capsule 10 mg PO ACHS RF: 0 sucralfate 1 GM/10 ML Udc 1 g PO ACHS RF: 0 carbamazepine [Carbatrol] 300 MG Cpmp.12hr 100 mg PO BID RF: 0 cholecalciferol (vitamin D3) 50,000 UNIT capsule 50,000 unit PO SA RF: 0 omeprazole 20 MG capsule 40 mg PO DAILY Qty: 0 RF: 0 baclofen 10 MG tablet 10 mg PO QHS RF: 0 lactulose 20 GM/30 ML Udc 20 g PO TID RF: 0 pregabalin 50 MG capsule 50 mg PO BID RF: 0 insulin lispro 100 UNIT/ML insulin pen See Protocol unit SC ACHS RF: 0 lisinopril 10 MG tablet 10 mg PO DAILY Qty: 30 RF: 0 furosemide 20 MG tablet 20 mg PO DAILY Qty: 30 RF: 0 insulin lispro 100 UNIT/ML solution 14 units SC ACHS Qty: 0 RF: 0 insulin degludec 100 UNIT/ML insulin pen 20 unit SQ DAILY Qty: 0 RF: 0 Primary Care Provider: Janay Canchola Referrals: Janay Canchola MD [Primary Care Provider] - Disposition Disposition: Acute Care Hospital [facility]
[2021-03-20] MEDS: 0.9% Normal Saline 1,000 ML 1000 ML IV (13:54)
[2021-03-20] MEDS: Ondansetron 4 MG/2 ML Vial IV ×2 (13:55→22:17)
[2021-03-20 14:04] LABS: Mucous, Urine 0 SEEN /hpf (<or=2+); White Blood Cells 0 SEEN /hpf (0-5)
[2021-03-20 14:08] LABS: Absolute Lymphocyte Count 0.45 X10^3/uL (0.83-4.51); Absolute Neutrophil Count 1.7 X10^3/uL (2.0-7.7); Basophil# 0.04 X10^3/uL; Basophil% 1.6 % (0-1); Eosinophil# 0.12 X10^3/uL; Eosinophils% 4.7 % (0-5); Hematocrit 24.4 % (37-47); Hemoglobin 8.4 g/dL (12.0-15.0); Lymphocyte # 0.45 X10^3/ul (0.83-4.51); Lymphocyte % 17.6 % (19-41); Mean Corp Hgb Conc 34.4 g/dL (32-36); Mean Platelet Vol. 11.3 fl (6.2-12.0); Monocyte# 0.22 X10^3/uL; Monocyte% 8.6 % (0-10); NRBC Flagged by Analyzer 0 % (0-5); Neutrophil # 1.72 X10^3/uL (2.7-7.7); Neutrophil % 67.1 % (47-70); POSITIVE COUNT YES; POSITIVE DIFFERENTIAL YES; Platelet Count 78 K/mm3 (150-450); RBC Distribution Width CV 14.6 % (11.6-14.6); RBC Distribution Width SD 47.8 fl (35.1-43.9); Red Blood Count 2.71 M/mm3 (4.2-5.4); White Blood Count 2.6 K/mm3 (4.4-11.0)
[2021-03-20 14:10] LABS: Color, Urine Yellow (Yellow); Glucose, Dipstick 1000 mg/dl (Normal); Ketone-Dipstick Negative (Negative); Leukocyte Esterase-Dipstick Negative /ul (Negative); Nitrite-Dipstick Negative (Negative); Occult Blood-Urine 150 /ul (Negative); Protein-Dipstick Negative (Negative); Urine Bilirubin Dipstick Negative (Negative); Urine Clarity Sl. Cloudy (Clear); Urine Urobilinogen 1 mg/dl (Normal)
[2021-03-20 14:12] LABS: Differential Indicated SCAN CRITERIA MET
[2021-03-20 14:15] LABS: Bacteria RARE /hpf (None Seen); Red Blood Cells-Urine 10-25 SEEN /hpf (0-5); Squamous Epithelial Cells - UA 0-5 SEEN /hpf (5-10); Yeast-Urine RARE /hpf (None Seen)
[2021-03-20 14:35] LABS: ALB/GLOB Ratio 0.5 RATIO (0.9-2.4); AST(SGOT) 44 U/L (15-37); Alanine Aminotransfer ALT/SGPT 46 U/L (13-56); Albumin, Serum 2.7 g/dL (3.2-5.0); Alkaline Phosphatase 241 U/L (45-117); Anion Gap 9 (5-15); BUN 18 mg/dL (7-18); BUN/Creat Ratio 13.3 RATIO (10-20); Calcium,Total 8.3 mg/dL (8.5-10.1); Chloride 106 mmol/L (98-107); Creatinine, Serum 1.35 mg/dL (0.55-1.02); EST Glomerular Filtration Rate 44 mL/min (>60); Est Glom Filt Rate - Afr Amer 53 mL/min (>60); Estimated Creatinine Clearance 50.94 ml/min; Glucose 389 mg/dL (74-106); Potassium 3.3 mmol/L (3.5-5.1); Protein, Total 7.7 g/dL (6.4-8.2); Sodium Level 139 mmol/L (136-145)
[2021-03-20 14:41] LABS: Platelet Estimate MOD DEC (ADEQ)
[2021-03-20 14:51] LABS: Lactic Acid 1.9 mmol/L (0.4-1.9)
[2021-03-20] MEDS: 0.9% Normal Saline 1,000 ML 15 ML IV (15:10)
[2021-03-20] MEDS: Aspirin 81 MG TAB.CHEW 324 MG PO (15:30)
[2021-03-20] MEDS: Insulin Lispro 100 UNIT/ML INSULN.PEN 6 UNIT SC (15:30)
--- NOTE | 2021-03-20 15:36 | NURSING ---
PCU NSTEMI, HYPERGLYCEMIA, HYPERTENSION ASHELFAH
--- NOTE | 2021-03-20 15:42 | HP.PCM.HOS_ITS ---
[facility] - General General Date of Admission: 03/20/21 Chief Complaint: High blood pressure. HPI Narrative ANA GARCÍA, is a 50 F with past medical history as mentioned above presented to the emergency room because of high blood pressure. Patient was seen by [facility] health nurse today, found to have blood pressure of 230/110 and she was requested to come to the emergency department. Patient complained of headache, throbbing headache, generalized, associated with nausea and vomiting and without aggravating or relieving factors. She denies chest pain or shortness of breath. She denied cough or sputum production. She denied abdominal pain, nausea or vomiting. She denied fever or chills. Patient was admitted recently to our hospital for MRSA bacteremia and she was discharged on IV antibiotics. Patient stated that she went to [facility] and she was informed that the MRSA infection went to her eye and she was continued on IV antibiotics. She stated she is supposed to get her last dose of antibiotics tomorrow. In the emergency department, her blood pressure was elevated, was afebrile, other vital signs were stable. Her routine blood work was remarkable for hemoglobin of 8.4 g/dL, platelet count of 78,000, potassium is 3.3, creatinine is 1.35, blood glucose is 389. EKG revealed normal sinus rhythm without evidence of acute ischemic jodie nges. Troponin was 0.317. CT scan brain showed no acute findings. She is being admitted for hypertensive emergency and acute non-STEMI. [facility] Medical History (Updated 03/20/21 @ 15:[address] Herman Galloway MD) Anemia Autoimmune hepatitis Bipolar disorder Cirrhosis Depression Diabetes Hepatitis Kidney disease Non-smoker Pancreatitis Home Medications magnesium oxide 400 mg PO BID 03/14/17 [History Last Taken 03/19/21] Xifaxan 550 mg PO BID 11/04/17 [History Last Taken 03/19/21] carbamazepine [Carbatrol] 100 mg PO BID 08/19/18 [History Last Taken 03/19/21] pregabalin 50 mg PO BID 11/06/19 [History Last Taken 03/19/21] carvedilol 6.25 mg PO BID 03/20/21 [History Last Taken 03/19/21] insulin lispro [Humalog KwikPen Insulin] 8 unit SUBCUT TID 03/20/21 [History Last Taken 03/19/21] lurasidone [Latuda] 40 mg PO QHS 03/20/21 [History Last Taken 03/19/21] pantoprazole 40 mg PO DAILY 03/20/21 [History Last Taken 03/19/21] sertraline 50 mg PO DAILY 03/20/21 [History Last Taken 03/19/21] spironolactone 25 mg PO DAILY 03/20/21 [History Last Taken 03/19/21] sucralfate [Carafate] 1 g PO ACHS 03/20/21 [History Last Taken 03/19/21] ursodiol 300 mg PO BID 03/20/21 [History Last Taken 03/19/21] zinc [Zinc Chelated] 50 mg PO DAILY 03/20/21 [History Last Taken 03/19/21] Allergy/AdvReac Type Severity Reaction Status Date / Time adhesive Allergy Rash Verified 03/20/21 12:35 escitalopram oxalate Allergy blindness Verified 03/20/21 12:35 [From Lexapro] gabapentin [From Neurontin] Allergy Alan Verified 03/20/21 12:35 Jez's Syndrome lamotrigine [From Lamictal] Allergy Blindness Verified 03/20/21 12:35 Preservatives Allergy passed Uncoded 01/09/19 07:10 out, lungs deflated sour cream Allergy Anaphylaxis Uncoded 01/09/19 07:10 Family History (Updated 03/20/21 @ 15:52 by Adrienne Gutierrez) Father CVA (cerebral vascular accident) Myocardial infarction Grandmother CHF (congestive heart failure) Sister Hypertension Surgical History (Updated 03/20/21 @ 15:49 by Adrienne Gutierrez) H/O: hysterectomy History of appendectomy History of cholecystectomy Social History Smoking Status: Never smoker ROS Constitutional Constitutional: Denies anorexia, chills, fatigue, fever(s) or malaise Eyes Eyes: Denies blurry vision, change in eye color, change in vision, double vision or eye pain ENT HEENT: Reports headache(s); Denies ear pain, epistaxis, nasal congestion, post nasal drip or sore throat Cardiovascular Cardiovascular: Denies chest pain, dyspnea on exertion, edema, lightheadedness, orthopnea, palpitations, paroxysmal nocturnal dyspnea or syncope Respiratory/Chest Respiratory/Chest: Denies cough, dyspnea, hemoptysis, productive cough, shortness of breath at rest, shortness of breath with exertion or wheezing Gastrointestinal Gastrointestinal: Reports nausea and vomiting; Denies abdominal pain, constipation, diarrhea, hematemesis, hematochezia or melena Genitourinary Genitourinary: Denies burning urination, dysuria, hematuria, urinary hesitancy or urinary urgency Musculoskeletal Musculoskeletal: Denies arthralgias, back pain, joint pain, joint swelling, myalgias or neck pain Neurologic Neurologic: Denies confusion, dizziness, focal weakness, headache(s), numbness, paresthesias, seizures, tingling or tremor(s) Psychiatric Psychiatric: Denies anxiety, depression, homicidal ideation or suicidal ideation Endocrine Endocrinology: Denies change in body appearance, cold intolerance, heat intolerance, polydipsia or polyuria Hematologic/Lymphatic Hematologic/Lymphatic: Reports other; Denies easy bleeding, easy bruising or lymphadenopathy Allergic/Immunologic Allergic/Immunologic: Denies itchy eyes, rhinitis, throat swelling, tongue swelling, hives, urticaria or wheezing Vital Signs Vital Signs Vital Signs: 03/20/21 12:35 03/20/21 14:42 03/20/21 14:43 Temperature 97.5 F L Temperature Source Temporal Pulse Rate 79 76 Respiratory Rate 16 18 Respiratory Effort Normal Non-Labored Respiratory Pattern Normal Blood Pressure 190/84 H 178/75 H Blood Pressure Mean 119 109 Pulse Ox 100 100 Oxygen Delivery Method Room Air Room Air 03/20/21 15:31 Temperature 97 F L Temperature Source Temporal Pulse Rate 78 Respiratory Rate 14 Respiratory Effort Respiratory Pattern Blood Pressure 189/83 H Blood Pressure Mean 118 Pulse Ox 100 Oxygen Delivery Method Room Air Physical Exam Const alert, oriented x3, no apparent distress and no limitations General Appearance: cooperative, comfortable and well kempt HEENT normocephalic, head/scalp atraumatic and moist oral mucous membranes Head and Scalp: normocephalic and atraumatic Eyes PERRL, EOMs intact bilaterally, conjunctivae normal and no scleral icterus General Eye: normal appearance of both eyes Periorbital: periorbital findings normal Neck no lymphadenopathy, supple, no meningeal signs, no JVD and no carotid bruits General: trachea midline Thyroid: thyroid normal Resp normal respiratory effort, normal air movement and clear to auscultation bilaterally Auscultation: Negative for crackles, rales, rhonchi or wheezes Cardio regular rate, regular rhythm, S1 normal heart sound, S2 normal heart sound, no murmurs and no JVD Peripheral Pulses: pulses 2+ throughout GI normal to inspection, nondistended, normoactive bowel sounds, soft to palpation, non-tender and non-distended; Negative for hepatosplenomegaly Auscultation: normoactive bowel sounds Extremity normal to inspection, full ROM and no clubbing, cyanosis or edema Skin no rashes or lesions noted, no wounds and no petechiae Neuro oriented x3, CN's II-XII intact bilaterally and moves all extremities Sensorium / Orientation: alert Speech: speech normal Motor Exam: strength 5/5 throughout Psych mental status grossly normal, affect normal and denies hallucinations Lab / Micro Data Result Diagrams: 03/20/21 13:55 03/20/21 13:55 Labs: Laboratory Results - last 24 hr 03/20/21 03/20/21 03/20/21 13:55 13:55 13:55 WBC 2.6 L RBC 2.71 L Hgb 8.4 L Hct 24.4 L MCV 90.0 MCH 31.0 MCHC 34.4 RDW Std Deviation 47.8 H RDW Coeff of Valentina 14.6 Plt Count 78 L MPV 11.3 Immature Gran % (Auto) 0.400 Neut % (Auto) 67.1 Lymph % (Auto) 17.6 L [place] % (Auto) 8.6 Eos % (Auto) 4.7 Baso % (Auto) 1.6 H Absolute Neuts (auto) 1.7 L Absolute Lymphs (auto) 0.45 L Nucleated RBC % 0 Differential Comment Diff Path Review May foll Platelet Estimate MOD DEC Sodium 139 Potassium 3.3 L Chloride 106 Carbon Dioxide 24.0 Anion Gap 9 BUN 18 Creatinine 1.35 H Estim Creat Clear Calc 50.94 Est GFR (MDRD) Af Amer 53 L Est GFR (MDRD) Non-Af 44 L BUN/Creatinine Ratio 13.3 Glucose 389 H Lactic Acid Calcium 8.3 L Total Bilirubin 1.00 AST 44 H ALT 46 Alkaline Phosphatase 241 H Troponin I 0.317 H Total Protein 7.7 Albumin 2.7 L Globulin 5.0 H Albumin/Globulin Ratio 0.5 L Urine Color Yellow Urine Clarity Sl. Cloudy Urine pH 7.0 Ur Specific [place] 1.010 Urine Protein Negative Urine Glucose (UA) 1000 H Urine Ketones Negative Urine Occult Blood 150 H Urine Nitrite Negative Urine Bilirubin Negative Urine Urobilinogen 1 H Ur Leukocyte Esterase Negative Urine RBC 10-25 SEEN Urine WBC 0 SEEN Ur Squamous Epith Cells 0-5 SEEN Urine Bacteria RARE Urine Mucus 0 SEEN Urine Yeast RARE 03/20/21 13:55 WBC RBC Hgb Hct MCV MCH MCHC RDW Std Deviation RDW Coeff of Valentina Plt Count MPV Immature Gran % (Auto) Neut % (Auto) Lymph % (Auto) [place] % (Auto) Eos % (Auto) Baso % (Auto) Absolute Neuts (auto) Absolute Lymphs (auto) Nucleated RBC % Differential Comment Diff Path Review Platelet Estimate Sodium Potassium Chloride Carbon Dioxide Anion Gap BUN Creatinine Estim Creat Clear Calc Est GFR (MDRD) Af Amer Est GFR (MDRD) Non-Af BUN/Creatinine Ratio Glucose Lactic Acid 1.9 Calcium Total Bilirubin AST ALT Alkaline Phosphatase Troponin I Total Protein Albumin Globulin Albumin/Globulin Ratio Urine Color Urine Clarity Urine pH Ur Specific [place] Urine Protein Urine Glucose (UA) Urine Ketones Urine Occult Blood Urine Nitrite Urine Bilirubin Urine Urobilinogen Ur Leukocyte Esterase Urine RBC Urine WBC Ur Squamous Epith Cells Urine Bacteria Urine Mucus Urine Yeast Radiology Impression Brain CT 03/20/21 13:31 IMPRESSION: Normal unenhanced CT scan of the brain. Electronically Signed: Dash Shin MD at 14:16 EDT , Service support , Assessment & Plan Assessment/Plan (1) Bacteremia due to methicillin resistant Staphylococcus epidermidis: Status: Acute Code(s): R78.81 - Bacteremia; B95.7 - Other staphylococcus as the cause of diseases classified elsewhere; Z16.29 - Resistance to other single specified antibiotic (2) Non-STEMI (non-ST elevated myocardial infarction): Status: Acute Code(s): I21.4 - Non-ST elevation (NSTEMI) myocardial infarction (3) Hypertensive emergency: Status: Acute Code(s): I16.1 - Hypertensive emergency Plan: This is a 50 years old female patient presented to the emergency room because of high blood pressure and headache, found to have elevated troponin and she is being admitted for hypertensive emergency and acute non-STEMI. #1 hypertensive emergency: Blood pressure was up to 231/110 at home, currently is 180 systolic. Patient is poor informant and was not able to tell me if she does have a history of hypertension or not. Obviously, she is on diuretics and lisinopril. CT scan brain showed no acute findings. EKG was unremarkable. Plan: Admit to PCU, cardiac monitoring, serial cardiac enzymes, continue Coreg and Aldactone, start IV hydralazine, repeat CBC and BMP tomorrow morning, PT OT evaluation and treatment. #2 acute non-ST elevation NM: Troponin is elevated at 0.317, EKG without acute segment changes. Patient denied any chest pain. This could be due to elevated blood pressure. Underlying CAD cannot be ruled out. Plan: Cardiac monitoring, serial cardiac enzymes, cardiology consult, 2D echocardiogram, continue Coreg. #3 recent history of MRSA bacteremia: She is on IV antibiotics. Patient informed me that she went to [facility], was informed that the MRSA infection went to her eye and she is still on IV antibiotics, last day supposed to be tomorrow. She is afebrile, no leukocytosis. Urinalysis was unremarkable. Plan: Continue IV antibiotics, infectious disease consult. #4 type 2 diabetes mellitus: ADA diet, Accu-Cheks, insulin sliding scale, continue premeal Humalog. #5 chronic pancytopenia: Secondary to history of autoimmune hepatitis. WBC, hemoglobin and platelets are chronically low, stable at baseline. #6 chronic autoimmune hepatitis: Stable, monitor. #7 hypertension: Blood pressure is elevated, plan as above. #8 DVT prophylaxis: SCDs. This note was generated with [employer]EL[employer] ?ation software. It may contain incorrect words, spelling, and punctuation that were not noted in checking the note before signing. Visit Charges Inpatient E&M: 22327 Init Hosp L3
--- NOTE | 2021-03-20 16:41 | ECHOL_ITS ---
Version 2 Reason For Study: HTN Procedure This was a limited 2D transthoracic echocardiogram. Exam performed portable in patient room. Left Ventricle Normal LV size. Moderate concentric left ventricular hypertrophy. Left ventricular systolic function is normal. The estimated ejection fraction is 65 %. No regional wall motion abnormalities noted. Right Ventricle Normal RV size. Normal systolic function. Atria The left atrium is mildly enlarged. Normal right atrium. Mitral Valve Normal mitral valve. Tricuspid Valve Normal tricuspid valve. Aortic Valve Normal aortic valve. Trisinus/trileaflet aortic valve. Pulmonic Valve Normal pulmonic valve. Great Vessels Normal aortic root. Pericardium/Pleural No pericardial effusion. MMode/2D Measurements & Calculations LVIDd: 4.7 cm IVSd: 1.1 cm LAV(MOD-bp): 80.6 ml LVIDs: 2.8 cm LVPWd: 1.1 cm LAV(MOD-bp) Indexed: 40.9 ml/m2 FS: 40.4 % LAV(MOD-sp2): 79.3 ml LAV(MOD-sp4): 78.6 ml SV(MOD-sp4): 64.0 ml LVAd ap4: 32.9 cm2 LVAd ap2: 31.3 cm2 LVLd ap4: 8.6 cm LVLd ap2: 8.7 cm EDV(MOD-sp4): 100.0 ml EDV(MOD-sp2): 92.4 ml EDV(sp4-el): 106.8 ml EDV(sp2-el): 95.4 ml LVAs ap4: 17.4 cm2 LVAs ap2: 16.8 cm2 LVLs ap4: 6.8 cm LVLs ap2: 6.9 cm ESV(MOD-sp4): 36.0 ml ESV(MOD-sp2): 34.1 ml ESV(sp4-el): 37.5 ml ESV(sp2-el): 34.7 ml EF(MOD-sp4): 64.0 % EF(MOD-sp2): 63.1 % EF(sp4-el): 64.9 % SV(MOD-sp2): 58.3 ml SV(sp4-el): 69.4 ml LA A4 area: 25.2 cm2 RA A4 area: 16.5 cm2 ECHO/Echo, Limited Study Interpretation Summary Normal LV size. Moderate concentric left ventricular hypertrophy. Left ventricular systolic function is normal. The estimated ejection fraction is 65 %. The left atrium is mildly enlarged. Ordering Physician: Herman Galloway Referring Physician: DOLORES ALCANTARA Performed By: Vanessa Hartman, EFREN, RVT
[2021-03-20] MEDS: 0.9% Normal Saline 1,000 ML 75 ML IV (17:05)
[2021-03-20 17:11] LABS: Bedside Glucose 193 mg/dL (70-110)
[2021-03-20] MEDS: Insulin Lispro 100 UNIT/ML INSULN.PEN 8 UNIT SC (17:45)
[2021-03-20] MEDS: Insulin Lispro 100 UNIT/ML INSULN.PEN SC ×2 (17:45→20:57)
[2021-03-20] MEDS: hydrALAZINE 20 MG/ML Vial 10 MG IV (17:48)
--- NOTE | 2021-03-20 18:28 | CON.PCM.CA_ITS ---
Assessment & Plan Assessment/Plan (1) Non-STEMI (non-ST elevated myocardial infarction): Status: Acute Code(s): I21.4 - Non-ST elevation (NSTEMI) myocardial infarction Plan: She has abnormal cardiac enzymes secondary to this via patient. I mild to obtain a cardiogram to assess his ventricular function pending on the findings further recommendations will be made. I do not think performing his stress test is beneficial. * I would recommend continuing with medical therapy. I would increase the carvedilol to 12.5 mg a day. Aspirin is relatively contraindicated due to her pancytopenia. (2) Hypertensive emergency: Status: Acute Code(s): I16.1 - Hypertensive emergency Plan: She does have severe hypertension I would like us to further optimize her blood pressure control by increasing her carvedilol to 12.5 mg twice a day * Recommend the addition of amlodipine 10 mg a day * Obtain an echocardiogram to assess her ventricular function and look for any wall motion abnormalities * May also recommend the addition of an MIGUEL inhibitor. * * Thank you for allowing me to participate in the care of your patient. Please don't hesitate to call if any issues arise. HPI Consult Data Date of Consult: 03/20/21 HPI Narrative HPI Narrative: ANA GARCÍA, is a 50 F who presents with past medical history as mentioned above presented to the emergency room because of high blood pressure. The patient presented to the emergency room after a was seen by the home health nurse and was noted to have blood pressures in excess of 200 mmHg. She had been complaining of some headache but without any nausea or vomiting. She has not had any visual disturbances. She apparently was admitted here a few days ago with MRSA bacteremia and was transferred to the [facility] where she was worked up and subsequently discharged. She denies any chest pain or paroxysmal nocturnal dyspnea or pedal edema no neck arm or jaw discomfort suggest angina. Her troponins were noted to be mildly abnormal and cardiology was asked to see her. [facility] Medical History Anemia Autoimmune hepatitis Bipolar disorder Cirrhosis Depression Diabetes Hepatitis Kidney disease Non-smoker Pancreatitis Home Medications magnesium oxide 400 mg PO BID 03/14/17 [History Last Taken 03/19/21] Xifaxan 550 mg PO BID 11/04/17 [History Last Taken 03/19/21] carbamazepine [Carbatrol] 100 mg PO BID 08/19/18 [History Last Taken 03/19/21] pregabalin 50 mg PO BID 11/06/19 [History Last Taken 03/19/21] carvedilol 6.25 mg PO BID 03/20/21 [History Last Taken 03/19/21] insulin lispro [Humalog KwikPen Insulin] 8 unit SUBCUT TID 03/20/21 [History Last Taken 03/19/21] lurasidone [Latuda] 40 mg PO QHS 03/20/21 [History Last Taken 03/19/21] pantoprazole 40 mg PO DAILY 03/20/21 [History Last Taken 03/19/21] sertraline 50 mg PO DAILY 03/20/21 [History Last Taken 03/19/21] spironolactone 25 mg PO DAILY 03/20/21 [History Last Taken 03/19/21] sucralfate [Carafate] 1 g PO ACHS 03/20/21 [History Last Taken 03/19/21] ursodiol 300 mg PO BID 03/20/21 [History Last Taken 03/19/21] zinc [Zinc Chelated] 50 mg PO DAILY 03/20/21 [History Last Taken 03/19/21] Allergy/AdvReac Type Severity Reaction Status Date / Time adhesive Allergy Rash Verified 03/20/21 12:35 escitalopram oxalate Allergy blindness Verified 03/20/21 12:35 [From Lexapro] gabapentin [From Neurontin] Allergy Alan Verified 03/20/21 12:35 Jez's Syndrome lamotrigine [From Lamictal] Allergy Blindness Verified 03/20/21 12:35 Preservatives Allergy passed Uncoded 01/09/19 07:10 out, lungs deflated sour cream Allergy Anaphylaxis Uncoded 01/09/19 07:10 Family History Father CVA (cerebral vascular accident) Myocardial infarction Grandmother CHF (congestive heart failure) Sister Hypertension Surgical History H/O: hysterectomy History of appendectomy History of cholecystectomy Social History Smoking Status: Never smoker ROS Constitutional Constitutional: Reports headache(s) Eyes Eyes: Reports systems reviewed and no addt'l complaints, except as documented and none ENT HEENT: Reports systems reviewed and no addt'l complaints, except as documented Cardiovascular Cardiovascular: Reports none; Denies chest pain or chest pain at rest Respiratory/Chest Respiratory/Chest: Denies shortness of breath at rest Genitourinary Genitourinary: Reports as per HPI Musculoskeletal Musculoskeletal: Reports systems reviewed and no addt'l complaints, except as documented Integumentary Integumentary: Reports as per HPI Neurologic Neurologic: Reports as per HPI Physical Exam Const alert and oriented x3 Orientation / Consciousness: awake HEENT normocephalic Eyes PERRL Neck supple and no JVD Lymph Lymphatic: no lymphadenopathy noted Chest inspection of chest normal Resp clear to auscultation bilaterally Cardio regular rate, regular rhythm, S1 normal heart sound and S2 normal heart sound Jugular Venous Distention: JVD Palpation: normal PMI and abnormal PMI Rhythm: regular rhythm and abnormal rhythm Heart Sounds: S1 normal and S2 normal GI normal to inspection, nondistended, normoactive bowel sounds Back/Spine no CVA tenderness Extremity normal to inspection Neuro oriented x3 and CN's II-XII intact bilaterally
[2021-03-20 18:50] LABS: International Normalized Ratio 1.1; Prothrombin Time (Protime)PT. 13.8 SECONDS (11.7-14.9)
[2021-03-20] MEDS: Acetaminophen 325 MG Tablet 650 MG PO (18:52)
[2021-03-20] MEDS: Sucralfate 1 GM Tablet PO (20:47)
[2021-03-20] MEDS: amLODIPine 10 MG Tablet PO (20:47)
[2021-03-20] MEDS: carBAMazepine 200 MG Tablet 100 MG PO (20:49)
[2021-03-20] MEDS: LURASIDONE HCL 40 MG TABLET PO (20:50)
[2021-03-20] MEDS: rifAXIMin 550 MG Tablet PO (20:50)
[2021-03-20] MEDS: Ursodiol 250 MG Tablet PO (20:51)
[2021-03-20] MEDS: Pregabalin 50 MG Capsule PO (21:03)
[2021-03-20 22:01] LABS: Bedside Glucose 167 mg/dL (70-110)
[2021-03-20] MEDS: 0.9% Saline Lock 10 ML Syringe IV (22:17)
[2021-03-20] MEDS: Lactulose 20 GM/30 ML UDC PO (23:03)
[2021-03-20] MEDS: prednisoLONE eye drops (5 mL) 1 DROP OPTH.BTL 1 DRP OPHTHALMIC (23:03)
[2021-03-21] VITALS (9 sets, daily range): BP systolic 116–154; BP diastolic 59–82; PULSE 71–82; RESP 16–18; TEMP 36.7–37; O2SAT 95–99
[2021-03-21 06:22] LABS: Absolute Lymphocyte Count 0.33 X10^3/uL (0.83-4.51); Absolute Neutrophil Count 1.4 X10^3/uL (2.0-7.7); Basophil# 0.02 X10^3/uL; Eosinophil# 0.07 X10^3/uL; Eosinophils% 3.5 % (0-5); Hematocrit 22.5 % (37-47); Hemoglobin 7.6 g/dL (12.0-15.0); Lymphocyte # 0.33 X10^3/ul (0.83-4.51); Lymphocyte % 16.4 % (19-41); Mean Corp Hgb Conc 33.8 g/dL (32-36); Mean Corpuscular Hgb 31.1 pg (27.0-32.0); Mean Corpuscular Volume 92.2 fL (81-99); Mean Platelet Vol. 11.1 fl (6.2-12.0); Monocyte# 0.21 X10^3/uL; Monocyte% 10.4 % (0-10); NRBC Flagged by Analyzer 0 % (0-5); Neutrophil # 1.38 X10^3/uL (2.7-7.7); Neutrophil % 68.7 % (47-70); POSITIVE COUNT YES; POSITIVE DIFFERENTIAL YES; Platelet Count 63 K/mm3 (150-450); RBC Distribution Width CV 14.6 % (11.6-14.6); Red Blood Count 2.44 M/mm3 (4.2-5.4)
[2021-03-21 06:33] LABS: Differential Indicated SCAN CRITERIA MET
[2021-03-21] MEDS: 0.9% Normal Saline 1,000 ML 15 ML IV (06:41)
[2021-03-21] MEDS: Lactulose 20 GM/30 ML UDC PO ×3 (06:43→22:18)
[2021-03-21 06:56] LABS: Bedside Glucose 194 mg/dL (70-110)
[2021-03-21 06:58] LABS: Anion Gap 7 (5-15); BUN 17 mg/dL (7-18); BUN/Creat Ratio 14.4 RATIO (10-20); Calcium,Total 8.2 mg/dL (8.5-10.1); Chloride 113 mmol/L (98-107); Creatinine, Serum 1.18 mg/dL (0.55-1.02); EST Glomerular Filtration Rate 51 mL/min (>60); Est Glom Filt Rate - Afr Amer 62 mL/min (>60); Estimated Creatinine Clearance 58.28 ml/min; Glucose 188 mg/dL (74-106); Potassium 3.2 mmol/L (3.5-5.1); Sodium Level 143 mmol/L (136-145)
[2021-03-21] MEDS: Sucralfate 1 GM Tablet PO ×4 (07:15→21:11)
[2021-03-21] MEDS: Insulin Lispro 100 UNIT/ML INSULN.PEN SC ×4 (08:31→21:07)
[2021-03-21] MEDS: Insulin Lispro 100 UNIT/ML INSULN.PEN 8 UNIT SC ×3 (08:33→16:35)
[2021-03-21] MEDS: Carvedilol 12.5 MG Tablet PO ×2 (08:33→21:24)
[2021-03-21] MEDS: Potassium Chloride Oral Tablet 20 MEQ 40 MEQ PO (08:33)
[2021-03-21] MEDS: amLODIPine 10 MG Tablet PO (08:34)
[2021-03-21] MEDS: Pantoprazole Sodium 40 MG Tablet PO (08:35)
[2021-03-21] MEDS: prednisoLONE eye drops (5 mL) 1 DROP OPTH.BTL 1 DRP OPHTHALMIC ×4 (08:35→21:08)
[2021-03-21] MEDS: Ursodiol 250 MG Tablet PO ×2 (08:37→21:08)
[2021-03-21] MEDS: carBAMazepine 200 MG Tablet 100 MG PO ×2 (08:37→21:12)
[2021-03-21] MEDS: rifAXIMin 550 MG Tablet PO ×2 (08:37→21:11)
[2021-03-21] MEDS: Sertraline 50 MG Tablet PO (08:38)
[2021-03-21] MEDS: Lisinopril 5 MG Tablet PO (08:38)
[2021-03-21] MEDS: Pregabalin 50 MG Capsule PO ×2 (08:40→21:23)
--- NOTE | 2021-03-21 08:44 | PN.CARD_ITS ---
Subjective Subjective: Patient seen and evaluated. Appears to be doing well. No cardiac complaints at this time no headache. Objective Data Vital Signs: Vital Signs Temp Pulse Resp BP Pulse Ox 98.2 F 81 18 154/82 H 97 03/21/21 08:21 03/21/21 08:21 03/21/21 08:21 03/21/21 08:21 03/21/21 08:21 Oxygen Delivery Method Room Air Weight: 179 lb 12.8 oz Body Mass Index (BMI) 26.5 Finger Stick Blood Glucose 217 Intake & Output: Intake and Output for Last 24 Hours 03/19/21 03/20/21 03/21/21 23:59 23:59 23:59 Intake Total 1029 / 1269 1480 / 1480 Balance 1029 / 1269 1480 / 1480 Lab / Micro Data Result Diagrams: 03/21/21 06:06 03/21/21 06:06 Labs: Laboratory Results - last 24 hr 03/20/21 03/20/21 03/20/21 13:55 13:55 13:55 WBC 2.6 L RBC 2.71 L Hgb 8.4 L Hct 24.4 L MCV 90.0 MCH 31.0 MCHC 34.4 RDW Std Deviation 47.8 H RDW Coeff of Valentina 14.6 Plt Count 78 L MPV 11.3 Immature Gran % (Auto) 0.400 Neut % (Auto) 67.1 Lymph % (Auto) 17.6 L [place] % (Auto) 8.6 Eos % (Auto) 4.7 Baso % (Auto) 1.6 H Absolute Neuts (auto) 1.7 L Absolute Lymphs (auto) 0.45 L Nucleated RBC % 0 Differential Comment Diff Path Review May foll Platelet Estimate MOD DEC PT INR Sodium 139 Potassium 3.3 L Chloride 106 Carbon Dioxide 24.0 Anion Gap 9 BUN 18 Creatinine 1.35 H Estim Creat Clear Calc 50.94 Est GFR (MDRD) Af Amer 53 L Est GFR (MDRD) Non-Af 44 L BUN/Creatinine Ratio 13.3 Glucose 389 H Lactic Acid Calcium 8.3 L Total Bilirubin 1.00 AST 44 H ALT 46 Alkaline Phosphatase 241 H Troponin I 0.317 H Total Protein 7.7 Albumin 2.7 L Globulin 5.0 H Albumin/Globulin Ratio 0.5 L Urine Color Yellow Urine Clarity Sl. Cloudy Urine pH 7.0 Ur Specific [place] 1.010 Urine Protein Negative Urine Glucose (UA) 1000 H Urine Ketones Negative Urine Occult Blood 150 H Urine Nitrite Negative Urine Bilirubin Negative Urine Urobilinogen 1 H Ur Leukocyte Esterase Negative Urine RBC 10-25 SEEN Urine WBC 0 SEEN Ur Squamous Epith Cells 0-5 SEEN Urine Bacteria RARE Urine Mucus 0 SEEN Urine Yeast RARE POC Glucose 03/20/21 03/20/21 03/20/21 13:55 17:01 17:36 WBC RBC Hgb Hct MCV MCH MCHC RDW Std Deviation RDW Coeff of Valentina Plt Count MPV Immature Gran % (Auto) Neut % (Auto) Lymph % (Auto) [place] % (Auto) Eos % (Auto) Baso % (Auto) Absolute Neuts (auto) Absolute Lymphs (auto) Nucleated RBC % Differential Comment Diff Path Review Platelet Estimate PT 13.8 INR 1.1 Sodium Potassium Chloride Carbon Dioxide Anion Gap BUN Creatinine Estim Creat Clear Calc Est GFR (MDRD) Af Amer Est GFR (MDRD) Non-Af BUN/Creatinine Ratio Glucose Lactic Acid 1.9 Calcium Total Bilirubin AST ALT Alkaline Phosphatase Troponin I Total Protein Albumin Globulin Albumin/Globulin Ratio Urine Color Urine Clarity Urine pH Ur Specific [place] Urine Protein Urine Glucose (UA) Urine Ketones Urine Occult Blood Urine Nitrite Urine Bilirubin Urine Urobilinogen Ur Leukocyte Esterase Urine RBC Urine WBC Ur Squamous Epith Cells Urine Bacteria Urine Mucus Urine Yeast POC Glucose 193 H 03/20/21 03/20/21 03/20/21 17:36 20:46 20:57 WBC RBC Hgb Hct MCV MCH MCHC RDW Std Deviation RDW Coeff of Valentina Plt Count MPV Immature Gran % (Auto) Neut % (Auto) Lymph % (Auto) [place] % (Auto) Eos % (Auto) Baso % (Auto) Absolute Neuts (auto) Absolute Lymphs (auto) Nucleated RBC % Differential Comment Diff Path Review Platelet Estimate PT INR Sodium Potassium Chloride Carbon Dioxide Anion Gap BUN Creatinine Estim Creat Clear Calc Est GFR (MDRD) Af Amer Est GFR (MDRD) Non-Af BUN/Creatinine Ratio Glucose Lactic Acid Calcium Total Bilirubin AST ALT Alkaline Phosphatase Troponin I 0.318 H 0.210 H Total Protein Albumin Globulin Albumin/Globulin Ratio Urine Color Urine Clarity Urine pH Ur Specific [place] Urine Protein Urine Glucose (UA) Urine Ketones Urine Occult Blood Urine Nitrite Urine Bilirubin Urine Urobilinogen Ur Leukocyte Esterase Urine RBC Urine WBC Ur Squamous Epith Cells Urine Bacteria Urine Mucus Urine Yeast POC Glucose 167 H 03/21/21 03/21/21 03/21/21 06:06 06:06 06:44 WBC 2.0 L RBC 2.44 L Hgb 7.6 L Hct 22.5 L MCV 92.2 MCH 31.1 MCHC 33.8 RDW Std Deviation 49.0 H RDW Coeff of Valentina 14.6 Plt Count 63 L MPV 11.1 Immature Gran % (Auto) 0.000 Neut % (Auto) 68.7 Lymph % (Auto) 16.4 L [place] % (Auto) 10.4 H Eos % (Auto) 3.5 Baso % (Auto) 1.0 Absolute Neuts (auto) 1.4 L Absolute Lymphs (auto) 0.33 L Nucleated RBC % 0 Differential Comment Diff Path Review May foll Platelet Estimate PT INR Sodium 143 Potassium 3.2 L Chloride 113 H Carbon Dioxide 23.0 Anion Gap 7 BUN 17 Creatinine 1.18 H Estim Creat Clear Calc 58.28 Est GFR (MDRD) Af Amer 62 Est GFR (MDRD) Non-Af 51 L BUN/Creatinine Ratio 14.4 Glucose 188 H Lactic Acid Calcium 8.2 L Total Bilirubin AST ALT Alkaline Phosphatase Troponin I Total Protein Albumin Globulin Albumin/Globulin Ratio Urine Color Urine Clarity Urine pH Ur Specific [place] Urine Protein Urine Glucose (UA) Urine Ketones Urine Occult Blood Urine Nitrite Urine Bilirubin Urine Urobilinogen Ur Leukocyte Esterase Urine RBC Urine WBC Ur Squamous Epith Cells Urine Bacteria Urine Mucus Urine Yeast POC Glucose 194 H Cardiology Labs/Tests 03/20/21 13:55: WBC 2.6 L, RBC 2.71 L, Hgb 8.4 L, Hct 24.4 L, MCV 90.0, MCH 31.0, MCHC 34.4, Plt Count 78 L, MPV 11.3, Immature Gran % (Auto) 0.400, Neut % (Auto) 67.1, Lymph % (Auto) 17.6 L, [place] % (Auto) 8.6, Eos % (Auto) 4.7, Baso % (Auto) 1.6 H, Absolute Neuts (auto) 1.7 L, Nucleated RBC % 0 03/20/21 13:55: Urine Color Yellow, Urine Clarity Sl. Cloudy, Urine pH 7.0, Ur Specific [place] 1.010, Urine Protein Negative, Urine Glucose (UA) 1000 H, Urine Ketones Negative, Urine Occult Blood 150 H, Urine Nitrite Negative, Urine Bilirubin Negative, Urine Urobilinogen 1 H, Ur Leukocyte Esterase Negative, Urine RBC 10-25 SEEN, Urine WBC 0 SEEN 03/20/21 13:55: Sodium 139, Potassium 3.3 L, Chloride 106, Carbon Dioxide 24.0, Anion Gap 9, BUN 18, Creatinine 1.35 H, Est GFR (MDRD) Af Amer 53 L, Est GFR (MDRD) Non-Af 44 L, BUN/Creatinine Ratio 13.3, Glucose 389 H, Calcium 8.3 L, Total Bilirubin 1.00, Troponin I 0.317 H 03/20/21 13:55: Lactic Acid 1.9 03/20/21 17:36: PT 13.8, INR 1.1 03/20/21 17:36: Troponin I 0.318 H 03/20/21 20:46: Troponin I 0.210 H 03/21/21 06:06: WBC 2.0 L, RBC 2.44 L, Hgb 7.6 L, Hct 22.5 L, MCV 92.2, MCH 31.1, MCHC 33.8, Plt Count 63 L, MPV 11.1, Immature Gran % (Auto) 0.000, Neut % (Auto) 68.7, Lymph % (Auto) 16.4 L, [place] % (Auto) 10.4 H, Eos % (Auto) 3.5, Baso % (Auto) 1.0, Absolute Neuts (auto) 1.4 L, Nucleated RBC % 0 03/21/21 06:06: Sodium 143, Potassium 3.2 L, Chloride 113 H, Carbon Dioxide 23.0, Anion Gap 7, BUN 17, Creatinine 1.18 H, Est GFR (MDRD) Af Amer 62, Est GFR (MDRD) Non-Af 51 L, BUN/Creatinine Ratio 14.4, Glucose 188 H, Calcium 8.2 L Rhythm: EKG: ECHO: Stress Test: Cardiac Cath: PCI: CT Surgery: Holter monitor: EPS: PPM: CXR: Chest CT Scan: Radiography Diagnostic Testing: Radiology Impression Brain CT 03/20/21 13:31 IMPRESSION: Normal unenhanced CT scan of the brain. Electronically Signed: Dash Shin MD at 14:16 EDT , Service support , Physical Exam Const oriented x3 and healthy appearing Orientation / Consciousness: awake HEENT normocephalic Eyes PERRL Conjunctiva: conjunctiva abnormal Neck supple, no JVD and no carotid bruits Chest inspection of chest normal Resp normal respiratory effort and clear to auscultation bilaterally Cardio Palpation: normal PMI Rate: regular rate Rhythm: regular rhythm Heart Sounds: S1 normal and S2 normal Peripheral Pulses: pulses 2+ throughout GI normal to inspection, nondistended, normoactive bowel sounds Extremity normal to inspection and no clubbing, cyanosis or edema Psych mental status grossly normal Assessment & Plan Assessment/Plan (1) Non-STEMI (non-ST elevated myocardial infarction): Status: Acute Code(s): I21.4 - Non-ST elevation (NSTEMI) myocardial infarction Plan: She has abnormal cardiac enzymes secondary to this via patient. I mild to obtain a cardiogram to assess his ventricular function pending on the findings further recommendations will be made. I do not think performing his stress test is beneficial. * I would recommend continuing with medical therapy. I would increase the carvedilol to 12.5 mg a day. Aspirin is relatively contraindicated due to her pancytopenia. (2) Hypertensive emergency: Status: Acute Code(s): I16.1 - Hypertensive emergency Plan: She does have severe hypertension. Her blood pressure appears to be much better controlled at this time. I would not make any changes for today I would like us to observe her on the current dose of the carvedilol, amlodipine, and lisinopril. An echocardiogram should be performed to assess her ventricular function. * * Thank you for allowing me to participate in the care of your patient. Please don't hesitate to call if any issues arise.
[2021-03-21] MEDS: Ondansetron 4 MG/2 ML Vial IV (11:19)
--- NOTE | 2021-03-21 11:30 | CASEMGMT ---
TAMIKO MELLO Assessment: Face to Face with pt for initial transition planning/care coordination assessment. TAMIKO MELLO introduced self and role at [facility], pt voices understanding and consents to assessment. Pt is A/O x4 and answers all questions appropriately at this time. Pt lying in bed in no distress. Care providers, pharmacy, and demographics verified/updated. Admitting Dx: Hypertensive emergency, NSTEMI PCP: Jesika Specialists: Liver specialist at [facility] but pt unsure of name, Sher, heme; Adrián, endocrinology; Josh, therapist mental health; Kai, eye doctor from [facility]. Preferred Pharmacy: [place], [facility] Retail Insurance: My Care CRSC, CRSC Prescription Benefit: yes LW/HPOA: Pt has LW and DPOA that is on file at [facility]. Pt sister is her DPOA, Jennifer Nichole. LNOK: Jennifer, sister; son, Kelvin Lau; sig other's dtr, Analilia Tyler and sig other Sj Tyler Living Arrangements: Pt lives with sig other, his dtr and her son in a 2 story house with 2 steps to enter without rail. Pt states Analilia is temporarily staying as she is helping with her care. She also states her son is autistic. Transportation: Pt sig other Sj transports her. Denies concerns with transportation. DME/HHC/SNF: Pt has the following DME: cane, walker with and without wheels, rollator, shower chair, toilet seat and grab bars. Pt is current with [facility] for IV antibiotics. She also has OT. Pt has not been in a SNF. Pt states no concerns with going home at time of dc. Pt states no further concerns/needs. CM to follow for LENARD of HHC. Pt states if PICC line pulled at hospital, she will not need SN. States it was due to be pulled today. Advised pt to ask CM if any further question/concerns/needs arise, voices understanding. Pt Goal: Home with resumption of HHC Plan: Home with resumption of HHC and family support.
[2021-03-21 11:31] LABS: Bedside Glucose 283 mg/dL (70-110)
[2021-03-21 12:39] LABS: Pathologist Review Reviewed
[2021-03-21 12:40] LABS: Pathologist Review Reviewed
--- NOTE | 2021-03-21 13:18 | PCM.PN.HOSP ---
Documented by User: Glen NAVA 03/21/21 13:40 Subjective Subjective: Patient is a 50-year-old female comfortably resting in bed, alert and oriented x3. Patient does endorse a slight headache and and reports some tearing of the eyes, however denies any visual changes or losses of vision. Denies chest pain, shortness of breath, palpitations, fever, chills, N/V/D. Objective Data Objective Data Vital Signs: Vital Signs Temp Pulse Resp BP Pulse Ox 98.2 F 81 18 154/82 H 97 03/21/21 08:21 03/21/21 08:21 03/21/21 08:21 03/21/21 08:21 03/21/21 08:21 Oxygen Delivery Method Room Air Weight: 179 lb 12.8 oz Body Mass Index (BMI) 26.5 Finger Stick Blood Glucose 217 Intake & Output: Intake and Output for Last 24 Hours 03/19/21 03/20/21 03/21/21 23:59 23:59 23:59 Intake Total 1029 / 1269 1720 / 1720 Balance 1029 / 1269 1720 / 1720 Lab / Micro Data Result Diagrams: 03/21/21 06:06 03/21/21 06:06 Labs: Laboratory Results - last 24 hr 03/20/21 03/20/21 03/20/21 13:55 13:55 13:55 WBC 2.6 L RBC 2.71 L Hgb 8.4 L Hct 24.4 L MCV 90.0 MCH 31.0 MCHC 34.4 RDW Std Deviation 47.8 H RDW Coeff of Valentina 14.6 Plt Count 78 L MPV 11.3 Immature Gran % (Auto) 0.400 Neut % (Auto) 67.1 Lymph % (Auto) 17.6 L [place] % (Auto) 8.6 Eos % (Auto) 4.7 Baso % (Auto) 1.6 H Absolute Neuts (auto) 1.7 L Absolute Lymphs (auto) 0.45 L Nucleated RBC % 0 Differential Comment Diff Path Review Reviewed Platelet Estimate MOD DEC PT INR Sodium 139 Potassium 3.3 L Chloride 106 Carbon Dioxide 24.0 Anion Gap 9 BUN 18 Creatinine 1.35 H Estim Creat Clear Calc 50.94 Est GFR (MDRD) Af Amer 53 L Est GFR (MDRD) Non-Af 44 L BUN/Creatinine Ratio 13.3 Glucose 389 H Lactic Acid Calcium 8.3 L Total Bilirubin 1.00 AST 44 H ALT 46 Alkaline Phosphatase 241 H Troponin I 0.317 H Total Protein 7.7 Albumin 2.7 L Globulin 5.0 H Albumin/Globulin Ratio 0.5 L Urine Color Yellow Urine Clarity Sl. Cloudy Urine pH 7.0 Ur Specific [place] 1.010 Urine Protein Negative Urine Glucose (UA) 1000 H Urine Ketones Negative Urine Occult Blood 150 H Urine Nitrite Negative Urine Bilirubin Negative Urine Urobilinogen 1 H Ur Leukocyte Esterase Negative Urine RBC 10-25 SEEN Urine WBC 0 SEEN Ur Squamous Epith Cells 0-5 SEEN Urine Bacteria RARE Urine Mucus 0 SEEN Urine Yeast RARE POC Glucose 03/20/21 03/20/21 03/20/21 13:55 17:01 17:36 WBC RBC Hgb Hct MCV MCH MCHC RDW Std Deviation RDW Coeff of Valentina Plt Count MPV Immature Gran % (Auto) Neut % (Auto) Lymph % (Auto) [place] % (Auto) Eos % (Auto) Baso % (Auto) Absolute Neuts (auto) Absolute Lymphs (auto) Nucleated RBC % Differential Comment Diff Path Review Platelet Estimate PT 13.8 INR 1.1 Sodium Potassium Chloride Carbon Dioxide Anion Gap BUN Creatinine Estim Creat Clear Calc Est GFR (MDRD) Af Amer Est GFR (MDRD) Non-Af BUN/Creatinine Ratio Glucose Lactic Acid 1.9 Calcium Total Bilirubin AST ALT Alkaline Phosphatase Troponin I Total Protein Albumin Globulin Albumin/Globulin Ratio Urine Color Urine Clarity Urine pH Ur Specific [place] Urine Protein Urine Glucose (UA) Urine Ketones Urine Occult Blood Urine Nitrite Urine Bilirubin Urine Urobilinogen Ur Leukocyte Esterase Urine RBC Urine WBC Ur Squamous Epith Cells Urine Bacteria Urine Mucus Urine Yeast POC Glucose 193 H 03/20/21 03/20/21 03/20/21 17:36 20:46 20:57 WBC RBC Hgb Hct MCV MCH MCHC RDW Std Deviation RDW Coeff of Valentina Plt Count MPV Immature Gran % (Auto) Neut % (Auto) Lymph % (Auto) [place] % (Auto) Eos % (Auto) Baso % (Auto) Absolute Neuts (auto) Absolute Lymphs (auto) Nucleated RBC % Differential Comment Diff Path Review Platelet Estimate PT INR Sodium Potassium Chloride Carbon Dioxide Anion Gap BUN Creatinine Estim Creat Clear Calc Est GFR (MDRD) Af Amer Est GFR (MDRD) Non-Af BUN/Creatinine Ratio Glucose Lactic Acid Calcium Total Bilirubin AST ALT Alkaline Phosphatase Troponin I 0.318 H 0.210 H Total Protein Albumin Globulin Albumin/Globulin Ratio Urine Color Urine Clarity Urine pH Ur Specific [place] Urine Protein Urine Glucose (UA) Urine Ketones Urine Occult Blood Urine Nitrite Urine Bilirubin Urine Urobilinogen Ur Leukocyte Esterase Urine RBC Urine WBC Ur Squamous Epith Cells Urine Bacteria Urine Mucus Urine Yeast POC Glucose 167 H 03/21/21 03/21/21 03/21/21 06:06 06:06 06:44 WBC 2.0 L RBC 2.44 L Hgb 7.6 L Hct 22.5 L MCV 92.2 MCH 31.1 MCHC 33.8 RDW Std Deviation 49.0 H RDW Coeff of Valentina 14.6 Plt Count 63 L MPV 11.1 Immature Gran % (Auto) 0.000 Neut % (Auto) 68.7 Lymph % (Auto) 16.4 L [place] % (Auto) 10.4 H Eos % (Auto) 3.5 Baso % (Auto) 1.0 Absolute Neuts (auto) 1.4 L Absolute Lymphs (auto) 0.33 L Nucleated RBC % 0 Differential Comment Diff Path Review Reviewed Platelet Estimate PT INR Sodium 143 Potassium 3.2 L Chloride 113 H Carbon Dioxide 23.0 Anion Gap 7 BUN 17 Creatinine 1.18 H Estim Creat Clear Calc 58.28 Est GFR (MDRD) Af Amer 62 Est GFR (MDRD) Non-Af 51 L BUN/Creatinine Ratio 14.4 Glucose 188 H Lactic Acid Calcium 8.2 L Total Bilirubin AST ALT Alkaline Phosphatase Troponin I Total Protein Albumin Globulin Albumin/Globulin Ratio Urine Color Urine Clarity Urine pH Ur Specific [place] Urine Protein Urine Glucose (UA) Urine Ketones Urine Occult Blood Urine Nitrite Urine Bilirubin Urine Urobilinogen Ur Leukocyte Esterase Urine RBC Urine WBC Ur Squamous Epith Cells Urine Bacteria Urine Mucus Urine Yeast POC Glucose 194 H 03/21/21 11:14 WBC RBC Hgb Hct MCV MCH MCHC RDW Std Deviation RDW Coeff of Valentina Plt Count MPV Immature Gran % (Auto) Neut % (Auto) Lymph % (Auto) [place] % (Auto) Eos % (Auto) Baso % (Auto) Absolute Neuts (auto) Absolute Lymphs (auto) Nucleated RBC % Differential Comment Diff Path Review Platelet Estimate PT INR Sodium Potassium Chloride Carbon Dioxide Anion Gap BUN Creatinine Estim Creat Clear Calc Est GFR (MDRD) Af Amer Est GFR (MDRD) Non-Af BUN/Creatinine Ratio Glucose Lactic Acid Calcium Total Bilirubin AST ALT Alkaline Phosphatase Troponin I Total Protein Albumin Globulin Albumin/Globulin Ratio Urine Color Urine Clarity Urine pH Ur Specific [place] Urine Protein Urine Glucose (UA) Urine Ketones Urine Occult Blood Urine Nitrite Urine Bilirubin Urine Urobilinogen Ur Leukocyte Esterase Urine RBC Urine WBC Ur Squamous Epith Cells Urine Bacteria Urine Mucus Urine Yeast POC Glucose 283 H Radiography Diagnostic Testing: Radiology Impression Brain CT 03/20/21 13:31 IMPRESSION: Normal unenhanced CT scan of the brain. Electronically Signed: Dash Shin MD at 14:16 EDT , Service support , Physical Exam Narrative See subjective. Const alert, oriented x3 and no apparent distress HEENT head/scalp atraumatic Head and Scalp: normocephalic Eyes EOMs intact bilaterally Neck no lymphadenopathy, supple and no JVD Resp normal respiratory effort, no retractions and clear to auscultation bilaterally Cardio regular rate, regular rhythm, no murmurs and no JVD GI normal to inspection, nondistended, normoactive bowel sounds, soft to palpation, non-tender and non-distended Extremity normal to inspection and full ROM Skin no rashes or lesions noted and no wounds Neuro CN's II-XII intact bilaterally Psych affect normal Assessment & Plan Assessment/Plan (1) Bacteremia due to methicillin resistant Staphylococcus epidermidis: Status: Acute Code(s): R78.81 - Bacteremia; B95.7 - Other staphylococcus as the cause of diseases classified elsewhere; Z16.29 - Resistance to other single specified antibiotic (2) Non-STEMI (non-ST elevated myocardial infarction): Status: Acute Code(s): I21.4 - Non-ST elevation (NSTEMI) myocardial infarction (3) Hypertensive emergency: Status: Acute Code(s): I16.1 - Hypertensive emergency Plan: Patient is a 50-year-old female who was admitted to the hospital on 03/20/2021 with a chief complaint of high blood pressure and headache, subsequently found to have elevated troponin in the ED. See subjective for current patient status. Echocardiogram from 02/16/2021 demonstrated normal LV, normal LV systolic function, an estimated EF of 65% and increased left atrial filling pressures. 1) Hypertensive emergency; Blood pressure currently 154/82. Blood pressure currently being managed on Norvasc 10 mg p.o. daily, lisinopril 5 mg p.o. daily and Coreg 12.5 mg p.o. twice daily. Cardiology following, no medication changes recommended at this time. Plan; echocardiogram scheduled for 03/21/2021, remain admitted overnight. 2) Acute NSTEMI Troponin I elevated throughout cycle. Echocardiogram obtained last month as above. Cardiology following. Plan; new echocardiogram as above, continue Coreg as above, aspirin relatively contraindicated due to pancytopenia. 3) recent history of MRSA bacteremia Patient was diagnosed with a MRSA infection in her eye at the [facility]. Last day of daptomycin IV today. Vital signs stable and patient is afebrile. No evidence of erythema, swelling or tenderness about the eyes bilaterally. Patient does endorse mild tearing. Patient currently pancytopenic on CBC. Plan; ID consult ordered on admission. 4) DM 2 Plan; ADA diet, Accu-Cheks, sliding scale insulin and preprandial Humalog. 5) Chronic pancytopenia Secondary to history of autoimmune hepatitis. WBCs, hemoglobin and platelets chronically low at baseline. 6) chronic autoimmune hepatitis Stable, continue to monitor LFTs. 7) Hypertension Plan; refer to #1. DVT prophylaxis -SCDs Patient seen by Glen Holguin PA-C, under the supervision of Dr. Mcadams. Documented by User: Dr. Barbara Mcadams MD 03/21/21 17:07 Objective Data Lab / Micro Data Result Diagrams: 03/21/21 06:06 03/21/21 06:06
[2021-03-21] MEDS: Acetaminophen 325 MG Tablet 650 MG PO (14:36)
--- NOTE | 2021-03-21 15:17 | CHAPLAIN ---
Type of Pastoral Visit _x__ Initial Visit ___ Follow-up Visit ___ On-call Visit ___ General Patient Visit ___ Spiritual Assessment ___ Family Conference ___ Bereavement ___ Rapid Response ___ Code Blue ___ Other (describe below) Pastoral Care Referral From _x__ Patient ___ Family ___ Nurse ___ Physician ___ Shell Maker Lockstitch ___ Tread Builder ___ Other (describe below) Sacrament/Intervention _x__ Active listening ___ Anointing ___ Presybeterian ___ Bereavement ___ Communion _x__ Rashida exploration ___ _x__ Life review _x__ Prayer ___ Reconciliation ___ Sacrament of Sick _x__ Supportive presence ___ Wedding ___ Other (describe below) Pastoral Comments patient expresses some important spiritual questions and feelings and admits to inability to talk to many people about such concerns; pt is talkative and gives life review as well; pt seeks better connection with spiritual support in the future; prayer welcomed and visit is appreciated
--- NOTE | 2021-03-21 15:47 | CASEMGMT ---
Pt screened with [facility] Palliative Care Screening Tool for strata 3, pt did not meet criteria.
--- NOTE | 2021-03-21 15:48 | PCM.CONS.GEN ---
Assessment & Plan Assessment/Plan (1) MRSA bacteremia: Status: Acute Code(s): R78.81 - Bacteremia; B95.62 - Methicillin resistant Staphylococcus aureus infection as the cause of diseases classified elsewhere Plan: Due to complete dapto for MRSA bacteremia today, will monitor off of abx. Ok for picc removal at discharge. Will follow as needed, thank you HPI Consult Data Date of Consult: 03/21/21 HPI Narrative HPI Narrative: ANA GARCÍA, is a 50 F who presented with headache and high BP, recent admit here and at [facility] with MRSA bacteremia and eye involvement. Picc in place, was to complete dapto today. Vision has been stable. No fever, no n/v/d, no issues with picc. No new joint or back pain. Has not gotten covid shots. Full ROS performed and neg except as noted above. [facility], [facility] Medical History Anemia Autoimmune hepatitis Bipolar disorder Cirrhosis Depression Diabetes Hepatitis Kidney disease Non-smoker Pancreatitis Home Medications magnesium oxide 400 mg PO BID 03/14/17 [History Last Taken 03/19/21] Xifaxan 550 mg PO BID 11/04/17 [History Last Taken 03/19/21] carbamazepine [Carbatrol] 100 mg PO BID 08/19/18 [History Last Taken 03/19/21] pregabalin 50 mg PO BID 11/06/19 [History Last Taken 03/19/21] carvedilol 6.25 mg PO BID 03/20/21 [History Last Taken 03/19/21] daptomycin 450 mg IV DAILY 03/20/21 [History Last Taken 03/19/21] insulin degludec [Tresiba FlexTouch U-100] 24 unit SUBCUT DAILY 03/20/21 [History Last Taken Unknown] insulin lispro [Humalog KwikPen Insulin] 8 unit SUBCUT TID 03/20/21 [History Last Taken 03/19/21] lactulose 30 ml PO TID 03/20/21 [History Last Taken Unknown] lurasidone [Latuda] 40 mg PO QHS 03/20/21 [History Last Taken 03/19/21] ondansetron 4 mg PO Q8H PRN 03/20/21 [History Last Taken Unknown] pantoprazole 40 mg PO DAILY 03/20/21 [History Last Taken 03/19/21] polymyxin B sulf-trimethoprim 1 drp OPHTHALMIC (EYE) 4X/DAY 03/20/21 [History Last Taken Unknown] prednisolone acetate 1 drp OPHTHALMIC (EYE) 4X/DAY 03/20/21 [History Last Taken Unknown] sertraline 50 mg PO DAILY 03/20/21 [History Last Taken 03/19/21] spironolactone 25 mg PO DAILY 03/20/21 [History Last Taken 03/19/21] sucralfate [Carafate] 1 g PO ACHS 03/20/21 [History Last Taken 03/19/21] ursodiol 300 mg PO BID 03/20/21 [History Last Taken 03/19/21] zinc [Zinc Chelated] 50 mg PO DAILY 03/20/21 [History Last Taken 03/19/21] Allergy/AdvReac Type Severity Reaction Status Date / Time adhesive Allergy Rash Verified 03/20/21 12:35 escitalopram oxalate Allergy blindness Verified 03/20/21 12:35 [From Lexapro] gabapentin [From Neurontin] Allergy Alan Verified 03/20/21 12:35 Jez's Syndrome lamotrigine [From Lamictal] Allergy Blindness Verified 03/20/21 12:35 Preservatives Allergy passed Uncoded 01/09/19 07:10 out, lungs deflated sour cream Allergy Anaphylaxis Uncoded 01/09/19 07:10 Family History Father CVA (cerebral vascular accident) Myocardial infarction Grandmother CHF (congestive heart failure) Sister Hypertension Surgical History H/O: hysterectomy History of appendectomy History of cholecystectomy Social History Smoking Status: Never smoker Physical Exam Const alert and oriented x3 General Appearance: cooperative HEENT normocephalic and head/scalp atraumatic Eyes PERRL and EOMs intact bilaterally Neck supple and No nodes Resp clear to auscultation bilaterally Cardio regular rate GI normal to inspection, nondistended, normoactive bowel sounds Extremity no clubbing, cyanosis or edema Skin no rashes or lesions noted Neuro CN's II-XII intact bilaterally Lab / Micro Data Result Diagrams: 03/21/21 06:06 03/21/21 06:06 Labs: Laboratory Results - last 24 hr 03/20/21 03/20/21 03/20/21 13:55 17:01 17:36 WBC RBC Hgb Hct MCV MCH MCHC RDW Std Deviation RDW Coeff of Valentina Plt Count MPV Immature Gran % (Auto) Neut % (Auto) Lymph % (Auto) [place] % (Auto) Eos % (Auto) Baso % (Auto) Absolute Neuts (auto) Absolute Lymphs (auto) Nucleated RBC % Diff Path Review Reviewed PT 13.8 INR 1.1 Sodium Potassium Chloride Carbon Dioxide Anion Gap BUN Creatinine Estim Creat Clear Calc Est GFR (MDRD) Af Amer Est GFR (MDRD) Non-Af BUN/Creatinine Ratio Glucose Calcium Troponin I POC Glucose 193 H 03/20/21 03/20/21 03/20/21 17:36 20:46 20:57 WBC RBC Hgb Hct MCV MCH MCHC RDW Std Deviation RDW Coeff of Valentina Plt Count MPV Immature Gran % (Auto) Neut % (Auto) Lymph % (Auto) [place] % (Auto) Eos % (Auto) Baso % (Auto) Absolute Neuts (auto) Absolute Lymphs (auto) Nucleated RBC % Diff Path Review PT INR Sodium Potassium Chloride Carbon Dioxide Anion Gap BUN Creatinine Estim Creat Clear Calc Est GFR (MDRD) Af Amer Est GFR (MDRD) Non-Af BUN/Creatinine Ratio Glucose Calcium Troponin I 0.318 H 0.210 H POC Glucose 167 H 03/21/21 03/21/21 03/21/21 06:06 06:06 06:44 WBC 2.0 L RBC 2.44 L Hgb 7.6 L Hct 22.5 L MCV 92.2 MCH 31.1 MCHC 33.8 RDW Std Deviation 49.0 H RDW Coeff of Valentina 14.6 Plt Count 63 L MPV 11.1 Immature Gran % (Auto) 0.000 Neut % (Auto) 68.7 Lymph % (Auto) 16.4 L [place] % (Auto) 10.4 H Eos % (Auto) 3.5 Baso % (Auto) 1.0 Absolute Neuts (auto) 1.4 L Absolute Lymphs (auto) 0.33 L Nucleated RBC % 0 [address] Path Review Reviewed PT INR Sodium 143 Potassium 3.2 L Chloride 113 H Carbon Dioxide 23.0 Anion Gap 7 BUN 17 Creatinine 1.18 H Estim Creat Clear Calc 58.28 Est GFR (MDRD) Af Amer 62 Est GFR (MDRD) Non-Af 51 L BUN/Creatinine Ratio 14.4 Glucose 188 H Calcium 8.2 L Troponin I POC Glucose 194 H 03/21/21 11:14 WBC RBC Hgb Hct MCV MCH MCHC RDW Std Deviation RDW Coeff of Valentina Plt Count MPV Immature Gran % (Auto) Neut % (Auto) Lymph % (Auto) [place] % (Auto) Eos % (Auto) Baso % (Auto) Absolute Neuts (auto) Absolute Lymphs (auto) Nucleated RBC % Diff Path Review PT INR Sodium Potassium Chloride Carbon Dioxide Anion Gap BUN Creatinine Estim Creat Clear Calc Est GFR (MDRD) Af Amer Est GFR (MDRD) Non-Af BUN/Creatinine Ratio Glucose Calcium Troponin I POC Glucose 283 H Radiology Impression Echocardiogram 03/20/21 16:41 Interpretation Summary Normal LV size. Moderate concentric left ventricular hypertrophy. Left ventricular systolic function is normal. The estimated ejection fraction is 65 %. The left atrium is mildly enlarged. Ordering Physician: Herman Galloway Referring Physician: DOLORES ALCANTARA Performed By: Vanessa Hartman, RDCS, RVT
[2021-03-21 18:55] LABS: Bedside Glucose 264 mg/dL (70-110)
[2021-03-21 21:51] LABS: Bedside Glucose 158 mg/dL (70-110)
--- NOTE | 2021-03-21 22:39 | CPS ---
Set up pt's home CPAP unit with 2.5 LPM O2 bleed in.
[2021-03-22 03:00] VITALS: BP 102/51; PULSE 71; PULSE 73; RESP 16; TEMP 36.2; O2SAT 95
[2021-03-22] MEDS: Lactulose 20 GM/30 ML UDC PO ×2 (05:29→13:11)
[2021-03-22] MEDS: Sucralfate 1 GM Tablet PO ×2 (05:29→11:12)
[2021-03-22 07:00] VITALS: PULSE 74
[2021-03-22 07:15] LABS: Absolute Lymphocyte Count 0.41 X10^3/uL (0.83-4.51); Absolute Neutrophil Count 1.4 X10^3/uL (2.0-7.7); Basophil# 0.05 X10^3/uL; Basophil% 2.2 % (0-1); Eosinophils% 4.5 % (0-5); Hematocrit 23.6 % (37-47); Hemoglobin 7.8 g/dL (12.0-15.0); Lymphocyte # 0.41 X10^3/ul (0.83-4.51); Lymphocyte % 18.3 % (19-41); Mean Corp Hgb Conc 33.1 g/dL (32-36); Mean Corpuscular Hgb 30.6 pg (27.0-32.0); Mean Corpuscular Volume 92.5 fL (81-99); Mean Platelet Vol. 11.7 fl (6.2-12.0); Monocyte# 0.25 X10^3/uL; Monocyte% 11.2 % (0-10); NRBC Flagged by Analyzer 0 % (0-5); Neutrophil # 1.43 X10^3/uL (2.7-7.7); Neutrophil % 63.8 % (47-70); POSITIVE COUNT YES; POSITIVE DIFFERENTIAL YES; Platelet Count 66 K/mm3 (150-450); RBC Distribution Width CV 14.5 % (11.6-14.6); RBC Distribution Width SD 48.8 fl (35.1-43.9); Red Blood Count 2.55 M/mm3 (4.2-5.4); White Blood Count 2.2 K/mm3 (4.4-11.0)
[2021-03-22 07:16] LABS: Differential Indicated SCAN CRITERIA MET
[2021-03-22 07:34] VITALS: O2SAT 96
[2021-03-22 07:36] LABS: ALB/GLOB Ratio 0.6 RATIO (0.9-2.4); AST(SGOT) 43 U/L (15-37); Alanine Aminotransfer ALT/SGPT 43 U/L (13-56); Albumin, Serum 2.4 g/dL (3.2-5.0); Alkaline Phosphatase 218 U/L (45-117); Anion Gap 6 (5-15); BUN 20 mg/dL (7-18); BUN/Creat Ratio 13.6 RATIO (10-20); Calcium,Total 8.1 mg/dL (8.5-10.1); Chloride 112 mmol/L (98-107); Creatinine, Serum 1.47 mg/dL (0.55-1.02); EST Glomerular Filtration Rate 40 mL/min (>60); Est Glom Filt Rate - Afr Amer 48 mL/min (>60); Estimated Creatinine Clearance 46.79 ml/min; Globulin 4.1 g/dL (2.2-4.2); Glucose 249 mg/dL (74-106); Potassium 3.7 mmol/L (3.5-5.1); Protein, Total 6.5 g/dL (6.4-8.2); Sodium Level 141 mmol/L (136-145)
[2021-03-22 08:23] VITALS: BP 146/79; PULSE 76; RESP 18; TEMP 36.4; O2SAT 98
[2021-03-22] MEDS: Ondansetron 4 MG/2 ML Vial IV (08:38)
[2021-03-22] MEDS: Pregabalin 50 MG Capsule PO (08:38)
[2021-03-22] MEDS: Insulin Lispro 100 UNIT/ML INSULN.PEN 8 UNIT SC ×2 (08:42→11:12)
[2021-03-22] MEDS: Insulin Lispro 100 UNIT/ML INSULN.PEN SC ×2 (08:43→11:12)
[2021-03-22] MEDS: Lisinopril 5 MG Tablet PO (08:44)
[2021-03-22] MEDS: amLODIPine 10 MG Tablet PO (08:45)
[2021-03-22] MEDS: Ursodiol 250 MG Tablet PO (08:45)
[2021-03-22] MEDS: Carvedilol 12.5 MG Tablet PO (08:45)
[2021-03-22] MEDS: prednisoLONE eye drops (5 mL) 1 DROP OPTH.BTL 1 DRP OPHTHALMIC ×2 (08:45→13:11)
[2021-03-22] MEDS: Pantoprazole Sodium 40 MG Tablet PO (08:46)
[2021-03-22] MEDS: carBAMazepine 200 MG Tablet 100 MG PO (08:46)
[2021-03-22] MEDS: rifAXIMin 550 MG Tablet PO (08:46)
[2021-03-22] MEDS: Sertraline 50 MG Tablet PO (08:47)
[2021-03-22 09:25] LABS: Bedside Glucose 254 mg/dL (70-110)
[2021-03-22 11:30] LABS: Bedside Glucose 243 mg/dL (70-110)
--- NOTE | 2021-03-22 11:30 | PCM.DC ---
Discharge Instructions Outpatient Procedure Reason For Visit: HYPERTENSIVE EMERGENCY, NON-STEMI Diet Discharge Diet: No restrictions Activity Discharge Activity: Return to Normal Activity Follow Up Care Test Results: Test results from this visit will be discussed in further detail at your follow-up appointment, if applicable. Discharge Plan Admission Admit Date/Time: 03/20/21 15:41 Primary Reason for Your Visit: Hypertensive emergency Attending Provider: Barbara Mcadams Primary Care Provider: Janay Canchola Consulting Providers: Clementine Ramos ; Bernardo Galarza ; Bob Gracia ; Arsenio Cox ; Isaiah Carranza ; Julian Reid ; Anamika Silva ; Danial Deluca ; Leno Nelson ; Glen Vera NP ; Ernestina Hazel PA ; Jon Melendez Instructions Patient Instructions: Controlling High Blood Pressure Discharge Orders/Prescriptions Prescriptions: New carvedilol [Coreg] 12.5 mg tablet 12.5 mg PO BID Qty: 60 RF: 0 amlodipine [Norvasc] 10 mg tablet 10 mg PO DAILY Qty: 30 RF: 0 lisinopril 5 mg tablet 5 mg PO DAILY Qty: 30 RF: 0 Continued magnesium oxide 400 MG tablet 400 mg PO BID RF: 0 Xifaxan 550 MG tablet 550 mg PO BID RF: 0 carbamazepine [Carbatrol] 300 MG capsule, ER multiphase 12 hr 100 mg PO BID RF: 0 pregabalin 50 MG capsule 50 mg PO BID RF: 0 sucralfate [Carafate] 1 gram Tablet 1 g PO ACHS RF: 0 spironolactone 25 mg Tablet 25 mg PO DAILY RF: 0 pantoprazole 40 mg Tablet,Delayed Release (Dr/Ec) 40 mg PO DAILY RF: 0 ursodiol 300 mg Capsule 300 mg PO BID RF: 0 sertraline 50 mg Tablet 50 mg PO DAILY RF: 0 insulin lispro [Humalog KwikPen Insulin] 100 unit/mL Insulin Pen 8 unit SUBCUT TID RF: 0 Latuda 40 mg tablet 40 mg PO QHS RF: 0 prednisolone acetate 1 % drops,suspension 1 drp OPHTHALMIC (EYE) 4X/DAY RF: 0 polymyxin B sulf-trimethoprim 10,000 unit- 1 mg/mL drops 1 drp OPHTHALMIC (EYE) 4X/DAY RF: 0 ondansetron 4 mg Tablet,Disintegrating 4 mg PO Q8H PRN (Reason: Nausea) RF: 0 lactulose 10 gram/15 mL solution 30 ml PO TID RF: 0 Tresiba FlexTouch U-100 100 unit/mL (3 mL) insulin pen 24 unit SUBCUT DAILY RF: 0 Discontinued carvedilol 6.25 mg tablet 6.25 mg PO BID RF: 0 Zinc Chelated 50 mg Capsule 50 mg PO DAILY RF: 0 daptomycin 350 mg Recon Soln 450 mg IV DAILY RF: 0 Referrals: Bernardo Galarza MD [STAFF PHYSICIAN] - Within 2 Weeks Janay Canchola MD [Primary Care Provider] - In 1 Week (Follow up with your PCP within the next 3-5 days. ) Disposition Disposition (needs filled in before D/C Order can be placed): Home, self care
--- NOTE | 2021-03-22 11:52 | PCM.DC.SUM ---
Documented by User: Glen NAVA 03/22/21 12:13 Providers Date of Admission: 03/20/21 Primary Care Physician: Dr. Dolores Canchola MD Consultations 03/20/21 16:41 Consult: Cardiology Routine Consulting Provider: Phil Lazar Reason for Consult: Hypertensive emergency, non-STEMI EMERGENT Consult: No Notified: Yes Date Notified:: 03/20/21 Time Notified: 17:15 Method of Notification: Text Consult: Infectious Disease Routine Consulting Provider: Jon Melendez Reason for Consult: Recent MRSA bacteremia, still on IV antibiotics EMERGENT Consult: No Notified: Yes Date Notified:: 03/20/21 Time Notified: 15:40 Method of Notification: Answering Service Reason For Visit: HYPERTENSIVE EMERGENCY, NON-STEMI Diagnosis Discharge Diagnosis (1) MRSA bacteremia: Status: Acute Code(s): R78.81 - Bacteremia; B95.62 - Methicillin resistant Staphylococcus aureus infection as the cause of diseases classified elsewhere Medications at Discharge Home Medications magnesium oxide 400 mg PO BID 03/14/17 Xifaxan 550 mg PO BID 11/04/17 carbamazepine [Carbatrol] 100 mg PO BID 08/19/18 pregabalin 50 mg PO BID 11/06/19 Latuda 40 mg PO QHS 03/20/21 Tresiba FlexTouch U-100 24 unit SUBCUT DAILY 03/20/21 insulin lispro [Humalog KwikPen Insulin] 8 unit SUBCUT TID 03/20/21 lactulose 30 ml PO TID 03/20/21 ondansetron 4 mg PO Q8H PRN 03/20/21 pantoprazole 40 mg PO DAILY 03/20/21 polymyxin B sulf-trimethoprim 1 drp OPHTHALMIC (EYE) 4X/DAY 03/20/21 prednisolone acetate 1 drp OPHTHALMIC (EYE) 4X/DAY 03/20/21 sertraline 50 mg PO DAILY 03/20/21 spironolactone 25 mg PO DAILY 03/20/21 sucralfate [Carafate] 1 g PO ACHS 03/20/21 ursodiol 300 mg PO BID 03/20/21 amlodipine [Norvasc] 10 mg PO DAILY #30 tab 03/22/21 carvedilol [Coreg] 12.5 mg PO BID #60 tab 03/22/21 lisinopril 5 mg PO DAILY #30 tab 03/22/21 Hospital Course Summary of Care Provided Minutes Spent on Discharge: 35 Hospital Course: Patient is a 50-year-old female who was admitted to the hospital on 03/20/2021 with a chief complaint of high blood pressure and headache, subsequently found to have elevated troponin in the ED. See subjective for current patient status. New echocardiogram demonstrates normal LV size, moderate concentric LVH, an estimated EF of 65% and mildly enlarged left atrium. New medication changes below, per cardiology. 1) Hypertensive emergency; Blood pressure currently 146/79, stable. Blood pressure currently being managed on . Cardiology following, no medication changes recommended at this time. Plan; continue Norvasc 10 mg p.o. daily, lisinopril 5 mg p.o. daily and Coreg 12.5 mg p.o. twice daily. Follow-up with cardiology within the next 2 weeks. 2) Acute NSTEMI Troponin I elevated throughout cycle. Echocardiogram from 03/21/2021 as above. Aspirin contraindicated due to pancytopenia. Statin not initiated due to hepatitis. Plan; as above. 3) recent history of MRSA bacteremia Patient was diagnosed with a MRSA infection in her eye at the [facility]. Last day of daptomycin IV 03/21/2021. Vital signs stable and patient is afebrile. No evidence of erythema, swelling or tenderness about the eyes bilaterally. Patient does endorse mild tearing. Patient currently pancytopenic on CBC. Plan; do not continue daptomycin per ID, monitor off of antibiotics, remove PICC at discharge, follow-up with infectious disease within the next week. 4) DM 2 Plan; continue home regimen, follow-up with primary care provider within the next 3 to 5 days. 5) Chronic pancytopenia Secondary to history of autoimmune hepatitis. WBCs, hemoglobin and platelets chronically low at baseline. 6) chronic autoimmune hepatitis Stable. Plan; follow-up with primary care provider within the next 3 to 5 days. 7) Hypertension Plan; refer to #1. Patient seen by Glen Holguin PA-C, under the supervision of Dr. Mcadams. Physical Exam Narrative Patient is a 50-year-old female who is comfortably resting in bed, alert and oriented x3. Patient would like to be discharged today, however admits to having slight anxiety related to her new diagnosis. Patient states that her father when he suffered a second heart attack, and believes that if she has another heart attack she may pass away 2. Denies chest pain, shortness of breath, palpitations, fever, chills, N/V/D. Const alert, oriented x3 and no apparent distress HEENT normocephalic, head/scalp atraumatic and hearing grossly normal bilaterally Eyes EOMs intact bilaterally Neck no lymphadenopathy, supple and no JVD Resp normal respiratory effort, no retractions, no use of accessory muscles and clear to auscultation bilaterally Cardio regular rate, regular rhythm, no murmurs and no JVD GI normal to inspection, nondistended, normoactive bowel sounds, soft to palpation, non-tender and non-distended Extremity normal to inspection and no clubbing, cyanosis or edema General Extremity: edema Skin no rashes or lesions noted and no wounds Neuro CN's II-XII intact bilaterally Psych affect normal ABG / Lab / Microbiology Data Result Diagrams: 03/22/21 06:44 03/22/21 06:44 Laboratory: Laboratory Results - last 24 hr 03/20/21 03/21/21 03/21/21 13:55 06:06 16:31 WBC RBC Hgb Hct MCV MCH MCHC RDW Std Deviation RDW Coeff of Valentina Plt Count MPV Immature Gran % (Auto) Neut % (Auto) Lymph % (Auto) [place] % (Auto) Eos % (Auto) Baso % (Auto) Absolute Neuts (auto) Absolute Lymphs (auto) Nucleated RBC % Diff Path Review Reviewed Reviewed Sodium Potassium Chloride Carbon Dioxide Anion Gap BUN Creatinine Estim Creat Clear Calc Est GFR (MDRD) Af Amer Est GFR (MDRD) Non-Af BUN/Creatinine Ratio Glucose Calcium Total Bilirubin AST ALT Alkaline Phosphatase Total Protein Albumin Globulin Albumin/Globulin Ratio POC Glucose 264 H 03/21/21 03/22/21 03/22/21 21:02 06:44 06:44 WBC 2.2 L RBC 2.55 L Hgb 7.8 L Hct 23.6 L MCV 92.5 MCH 30.6 MCHC 33.1 RDW Std Deviation 48.8 H RDW Coeff of Valentina 14.5 Plt Count 66 L MPV 11.7 Immature Gran % (Auto) 0.000 Neut % (Auto) 63.8 Lymph % (Auto) 18.3 L [place] % (Auto) 11.2 H Eos % (Auto) 4.5 Baso % (Auto) 2.2 H Absolute Neuts (auto) 1.4 L Absolute Lymphs (auto) 0.41 L Nucleated RBC % 0 Diff Path Review May foll Sodium 141 Potassium 3.7 Chloride 112 H Carbon Dioxide 23.0 Anion Gap 6 BUN 20 H Creatinine 1.47 H Estim Creat Clear Calc 46.79 Est GFR (MDRD) Af Amer 48 L Est GFR (MDRD) Non-Af 40 L BUN/Creatinine Ratio 13.6 Glucose 249 H Calcium 8.1 L Total Bilirubin 0.70 AST 43 H ALT 43 Alkaline Phosphatase 218 H Total Protein 6.5 Albumin 2.4 L Globulin 4.1 Albumin/Globulin Ratio 0.6 L POC Glucose 158 H 03/22/21 03/22/21 08:41 11:10 WBC RBC Hgb Hct MCV MCH MCHC RDW Std Deviation RDW Coeff of Valentina Plt Count MPV Immature Gran % (Auto) Neut % (Auto) Lymph % (Auto) [place] % (Auto) Eos % (Auto) Baso % (Auto) Absolute Neuts (auto) Absolute Lymphs (auto) Nucleated RBC % Diff Path Review Sodium Potassium Chloride Carbon Dioxide Anion Gap BUN Creatinine Estim Creat Clear Calc Est GFR (MDRD) Af Amer Est GFR (MDRD) Non-Af BUN/Creatinine Ratio Glucose Calcium Total Bilirubin AST ALT Alkaline Phosphatase Total Protein Albumin Globulin Albumin/Globulin Ratio POC Glucose 254 H 243 H Radiography Diagnostic Testing: Radiology Impression Echocardiogram 03/20/21 16:41 Interpretation Summary Normal LV size. Moderate concentric left ventricular hypertrophy. Left ventricular systolic function is normal. The estimated ejection fraction is 65 %. The left atrium is mildly enlarged. Ordering Physician: Herman Galloway Referring Physician: DOLORES CANCHOLA Performed By: Vanessa Hartman, RDCS, RVT D/C Instructions Discharge Diet: No restrictions Discharge Activity: Return to Normal Activity Meaningful Use Info Meaningful Use Diagnoses (Choose all that apply): AMI AMI/Post PCI/Angioplasty Aspirin given w/in 24hrs of arrival?: No Reason no aspirin w/in 24hrs of arrival?: Pancytopenia ASA at discharge?: No Reason ASA not ordered:: Drug Interaction (Pancytopenia.) Statins at discharge?: No Reason statins not ordered:: Drug Interaction Kartik/ARB at discharge?: Yes Beta Tacho at discharge?: Yes Done w/ Acute ND measure.: Yes Documented LVEF (%): 65 Discharge Plan Admission Admit Date/Time: 03/20/21 15:41 Primary Reason for Your Visit: Hypertensive emergency Attending Provider: Barbara Mcadams Primary Care Provider: Dolores Canchola Consulting Providers: Clementine Ramos ; Bernardo Galarza ; Bob Gracia ; Arsenio Cox ; Isaiah Carranza ; Julian Reid ; Anamika Silva ; Danial Deluca ; Leno Nelson ; Glen Vera NP ; Ernestina Hazel PA ; Jon Melendez Instructions Patient Instructions: Controlling High Blood Pressure Discharge Orders/Prescriptions Prescriptions: New carvedilol [Coreg] 12.5 mg tablet 12.5 mg PO BID Qty: 60 RF: 0 amlodipine [Norvasc] 10 mg tablet 10 mg PO DAILY Qty: 30 RF: 0 lisinopril 5 mg tablet 5 mg PO DAILY Qty: 30 RF: 0 Continued magnesium oxide 400 MG tablet 400 mg PO BID RF: 0 Xifaxan 550 MG tablet 550 mg PO BID RF: 0 carbamazepine [Carbatrol] 300 MG capsule, ER multiphase 12 hr 100 mg PO BID RF: 0 pregabalin 50 MG capsule 50 mg PO BID RF: 0 sucralfate [Carafate] 1 gram Tablet 1 g PO ACHS RF: 0 spironolactone 25 mg Tablet 25 mg PO DAILY RF: 0 pantoprazole 40 mg Tablet,Delayed Release (Dr/Ec) 40 mg PO DAILY RF: 0 ursodiol 300 mg Capsule 300 mg PO BID RF: 0 sertraline 50 mg Tablet 50 mg PO DAILY RF: 0 insulin lispro [Humalog KwikPen Insulin] 100 unit/mL Insulin Pen 8 unit SUBCUT TID RF: 0 Latuda 40 mg tablet 40 mg PO QHS RF: 0 prednisolone acetate 1 % drops,suspension 1 drp OPHTHALMIC (EYE) 4X/DAY RF: 0 polymyxin B sulf-trimethoprim 10,000 unit- 1 mg/mL drops 1 drp OPHTHALMIC (EYE) 4X/DAY RF: 0 ondansetron 4 mg Tablet,Disintegrating 4 mg PO Q8H PRN (Reason: Nausea) RF: 0 lactulose 10 gram/15 mL solution 30 ml PO TID RF: 0 Tresiba FlexTouch U-100 100 unit/mL (3 mL) insulin pen 24 unit SUBCUT DAILY RF: 0 Discontinued carvedilol 6.25 mg tablet 6.25 mg PO BID RF: 0 Zinc Chelated 50 mg Capsule 50 mg PO DAILY RF: 0 daptomycin 350 mg Recon Soln 450 mg IV DAILY RF: 0 Referrals: Bernardo Galarza MD [STAFF PHYSICIAN] - 04/07/21 9:45 am Dolores Canchola MD [Primary Care Provider] - 03/31/21 11:00 am () Jon Melendez MD [STAFF PHYSICIAN] - (Office is closed today. Please call [phone] for an appointment ) Disposition Disposition (needs filled in before D/C Order can be placed): Home, self care Documented by User: Dr. Barbara Mcadams MD 03/22/21 14:07 Providers Date of Admission: 03/20/21 Reason For Visit: HYPERTENSIVE EMERGENCY, NON-STEMI Medications at Discharge Home Medications magnesium oxide 400 mg PO BID 03/14/17 Xifaxan 550 mg PO BID 11/04/17 carbamazepine [Carbatrol] 100 mg PO BID 08/19/18 pregabalin 50 mg PO BID 11/06/19 Latuda 40 mg PO QHS 03/20/21 Tresiba FlexTouch U-100 24 unit SUBCUT DAILY 03/20/21 insulin lispro [Humalog KwikPen Insulin] 8 unit SUBCUT TID 03/20/21 lactulose 30 ml PO TID 03/20/21 ondansetron 4 mg PO Q8H PRN 03/20/21 pantoprazole 40 mg PO DAILY 03/20/21 polymyxin B sulf-trimethoprim 1 drp OPHTHALMIC (EYE) 4X/DAY 03/20/21 prednisolone acetate 1 drp OPHTHALMIC (EYE) 4X/DAY 03/20/21 sertraline 50 mg PO DAILY 03/20/21 spironolactone 25 mg PO DAILY 03/20/21 sucralfate [Carafate] 1 g PO ACHS 03/20/21 ursodiol 300 mg PO BID 03/20/21 amlodipine [Norvasc] 10 mg PO DAILY #30 tab 03/22/21 carvedilol [Coreg] 12.5 mg PO BID #60 tab 03/22/21 lisinopril 5 mg PO DAILY #30 tab 03/22/21 ABG / Lab / Microbiology Data Result Diagrams: 03/22/21 06:44 03/22/21 06:44 Discharge Plan Admission Admit Date/Time: 03/20/21 15:41 Primary Reason for Your Visit: Hypertensive emergency Attending Provider: Barbara Mcadams Primary Care Provider: Dolores Canchola Consulting Providers: Clementine Ramos ; Bernardo Galarza ; Bob Gracia ; Arsenio Cox ; Isaiah Carranza ; Julian Reid ; Anamika Silva ; Danial Deluca ; Leno Nelson ; Glen Vera NP ; Ernestina Hazel PA ; Jon Melendez Instructions Patient Instructions: Controlling High Blood Pressure Discharge Orders/Prescriptions Prescriptions: New carvedilol [Coreg] 12.5 mg tablet 12.5 mg PO BID Qty: 60 RF: 0 amlodipine [Norvasc] 10 mg tablet 10 mg PO DAILY Qty: 30 RF: 0 lisinopril 5 mg tablet 5 mg PO DAILY Qty: 30 RF: 0 Continued magnesium oxide 400 MG tablet 400 mg PO BID RF: 0 Xifaxan 550 MG tablet 550 mg PO BID RF: 0 carbamazepine [Carbatrol] 300 MG capsule, ER multiphase 12 hr 100 mg PO BID RF: 0 pregabalin 50 MG capsule 50 mg PO BID RF: 0 sucralfate [Carafate] 1 gram Tablet 1 g PO ACHS RF: 0 spironolactone 25 mg Tablet 25 mg PO DAILY RF: 0 pantoprazole 40 mg Tablet,Delayed Release (Dr/Ec) 40 mg PO DAILY RF: 0 ursodiol 300 mg Capsule 300 mg PO BID RF: 0 sertraline 50 mg Tablet 50 mg PO DAILY RF: 0 insulin lispro [Humalog KwikPen Insulin] 100 unit/mL Insulin Pen 8 unit SUBCUT TID RF: 0 Latuda 40 mg tablet 40 mg PO QHS RF: 0 prednisolone acetate 1 % drops,suspension 1 drp OPHTHALMIC (EYE) 4X/DAY RF: 0 polymyxin B sulf-trimethoprim 10,000 unit- 1 mg/mL drops 1 drp OPHTHALMIC (EYE) 4X/DAY RF: 0 ondansetron 4 mg Tablet,Disintegrating 4 mg PO Q8H PRN (Reason: Nausea) RF: 0 lactulose 10 gram/15 mL solution 30 ml PO TID RF: 0 Tresiba FlexTouch U-100 100 unit/mL (3 mL) insulin pen 24 unit SUBCUT DAILY RF: 0 Discontinued carvedilol 6.25 mg tablet 6.25 mg PO BID RF: 0 Zinc Chelated 50 mg Capsule 50 mg PO DAILY RF: 0 daptomycin 350 mg Recon Soln 450 mg IV DAILY RF: 0 Referrals: Bernardo Galarza MD [STAFF PHYSICIAN] - 04/07/21 9:45 am Dolores Canchola MD [Primary Care Provider] - 03/31/21 11:00 am () Jon Melendez MD [STAFF PHYSICIAN] - (Office is closed today. Please call [phone] for an appointment ) Disposition Disposition (needs filled in before D/C Order can be placed): Home, self care
--- NOTE | 2021-03-22 12:13 | CASEMGMT ---
Pt to dc today. TC to Ashlee intake at [facility] to make aware for resumption of services. Aware pt is to have PICC pulled. RN CM in to pt room to make pt aware. Pt denies further needs.
--- NOTE | 2021-03-22 12:16 | PHA.DC.MR ---
Pharmacy Service has performed discharge medication reconciliation for this patient. Patient in isolation, did not enter room per protocol. Medication list reviewed. Home Medications magnesium oxide 400 mg PO BID 03/14/17 Xifaxan 550 mg PO BID 11/04/17 carbamazepine [Carbatrol] 100 mg PO BID 08/19/18 pregabalin 50 mg PO BID 11/06/19 Latuda 40 mg PO QHS 03/20/21 Tresiba FlexTouch U-100 24 unit SUBCUT DAILY 03/20/21 insulin lispro [Humalog KwikPen Insulin] 8 unit SUBCUT TID 03/20/21 lactulose 30 ml PO TID 03/20/21 ondansetron 4 mg PO Q8H PRN 03/20/21 pantoprazole 40 mg PO DAILY 03/20/21 polymyxin B sulf-trimethoprim 1 drp OPHTHALMIC (EYE) 4X/DAY 03/20/21 prednisolone acetate 1 drp OPHTHALMIC (EYE) 4X/DAY 03/20/21 sertraline 50 mg PO DAILY 03/20/21 spironolactone 25 mg PO DAILY 03/20/21 sucralfate [Carafate] 1 g PO ACHS 03/20/21 ursodiol 300 mg PO BID 03/20/21 amlodipine [Norvasc] 10 mg PO DAILY #30 tab 03/22/21 carvedilol [Coreg] 12.5 mg PO BID #60 tab 03/22/21 lisinopril 5 mg PO DAILY #30 tab 03/22/21 The patient's discharge medication list was reviewed for discrepancies and discrepancies were resolved.
--- NOTE | 2021-03-22 13:35 | CASEMGMT ---
Pt Timothyannetta egg caser called and is requesting pt dc instructions faxed to her. [facility] phone [phone],fax [phone]. Faxed at this time.
[2021-03-23 12:54] LABS: Pathologist Review Reviewed
--- NOTE | 2021-03-23 13:20 | CASEMGMT ---
TAMIKO MELLO Discharge Follow-Up Phone Call. Lace: 11 Strata: 3 Discharge Date: 03/22/21 Adm Dx: Hypertensive Emergency, NSTEMI Attempted discharge f/u phone call. No answer. Non-identifying VM received. Non-descript VM left requesting return call if there are any questions or concerns. Phone number provided. Mlaou VILLALOBOS RN CM
== END 2021-03-22 13:55 | disposition home health service (06) | DRG 281 ==
LOC: ED 15:24 → PCU 16:53
PROVIDERS: Admitting Provider Hospitalist; Emergency Provider Emergency Medicine; PCP Internal Medicine; Visit Provider Family Medicine
DX: I21.4 Non-ST elevation (NSTEMI) myocardial infarction (principal); I16.1 Hypertensive emergency; R78.81 Bacteremia; D61.818 Other pancytopenia; B95.62 Methicillin resistant Staphylococcus aureus infection as the cause of diseases classified elsewhere; I12.9 Hypertensive chronic kidney disease with stage 1 through stage 4 chronic kidney disease, or unspecified chronic kidney disease; E11.22 Type 2 diabetes mellitus with diabetic chronic kidney disease; N18.30 Chronic kidney disease, stage 3 unspecified; K74.60 Unspecified cirrhosis of liver; E11.65 Type 2 diabetes mellitus with hyperglycemia; Z79.899 Other long term (current) drug therapy; Z79.4 Long term (current) use of insulin; K75.4 Autoimmune hepatitis; F31.9 Bipolar disorder, unspecified; K21.9 Gastro-esophageal reflux disease without esophagitis; F41.9 Anxiety disorder, unspecified; E87.6 Hypokalemia
CPT/HCPCS: 36415; 36592; 70450; 80048; 80053; 81001; 82962; 83605; 84484; 85025; 85610; 93005; 93308; 99285; J7030; A4216; J2405

== ENCOUNTER 2021-03-29 19:28 | Emergency (ER) | payer MEDICARE, MEDICAID, SELFPAY ==
[2021-03-20 16:31] VITALS: BMI 26.5
[2021-03-29 19:30] VITALS: BP 98/49; PULSE 68; RESP 15; TEMP 36.9; O2SAT 100; BMI 27.2
[2021-03-29 19:34] VITALS: BP 98/49; PULSE 65; RESP 18; O2SAT 100
--- NOTE | 2021-03-29 20:00 | EKG12_ITS ---
Test Reason : HYPOTENSION Blood Pressure : / mmHG Vent. Rate : 065 BPM Atrial Rate : 065 BPM P-R Int : 160 ms QRS Dur : 108 ms QT Int : 498 ms P-R-T Axes : 025 -35 040 degrees QTc Int : 517 ms Normal sinus rhythm Left axis deviation Voltage criteria for left ventricular hypertrophy Nonspecific ST and T wave abnormality Prolonged QT Abnormal ECG Confirmed by PAM ZAMBRANO, RANCHO ([id number]), avid editor NORA MENDES ([id number]) on 04/03/2021 2:21:49 PM Referred By: STARR ZAMBRANO Confirmed By:RANCHO OROZCO MD
--- NOTE | 2021-03-29 20:01 | EX.ED.DYSGE1 ---
HPI History of Present Illness Chief Complaint: Hypotension Narrative Narrative: 50-year-old female presenting with hypotension. She states that she was started on new blood pressure medications by Dr. Galarza. This was about a month ago she states. She noted that her blood pressure previously was 238/110 and had slowly went down to 170 systolic and now she notes that she is hypotensive. She feels lightheaded. She states she has fallen a couple times a day. She also admits to intermittent episodes of chest pressure over the course of the day she states this is when she feels lightheaded and correlates to her near syncopal episodes. She states that only last a couple of seconds. She denies fever, chills. Denies nausea, vomiting. She denies shortness of breath. Patient was sent in by her home nurse out of concern that she was getting too much blood pressure medication and was becoming hypotensive and near syncopal. [facility] Medical History Anemia Autoimmune hepatitis Bipolar disorder Cirrhosis Depression Diabetes Hepatitis Kidney disease Non-smoker Pancreatitis Home Medications magnesium oxide 400 mg PO BID 03/14/17 [History Last Taken 03/19/21] Xifaxan 550 mg PO BID 11/04/17 [History Last Taken 03/19/21] carbamazepine [Carbatrol] 100 mg PO BID 08/19/18 [History Last Taken 03/19/21] pregabalin 50 mg PO BID 11/06/19 [History Last Taken 03/19/21] Latuda 40 mg PO QHS 03/20/21 [History Last Taken 03/19/21] Tresiba FlexTouch U-100 24 unit SUBCUT DAILY 03/20/21 [History Last Taken Unknown] insulin lispro [Humalog KwikPen Insulin] 8 unit SUBCUT TID 03/20/21 [History Last Taken 03/19/21] lactulose 30 ml PO TID 03/20/21 [History Last Taken Unknown] ondansetron 4 mg PO Q8H PRN 03/20/21 [History Last Taken Unknown] pantoprazole 40 mg PO DAILY 03/20/21 [History Last Taken 03/19/21] polymyxin B sulf-trimethoprim 1 drp OPHTHALMIC (EYE) 4X/DAY 03/20/21 [History Last Taken Unknown] prednisolone acetate 1 drp OPHTHALMIC (EYE) 4X/DAY 03/20/21 [History Last Taken Unknown] sertraline 50 mg PO DAILY 03/20/21 [History Last Taken 03/19/21] spironolactone 25 mg PO DAILY 03/20/21 [History Last Taken 03/19/21] sucralfate [Carafate] 1 g PO ACHS 03/20/21 [History Last Taken 03/19/21] ursodiol 300 mg PO BID 03/20/21 [History Last Taken 03/19/21] amlodipine [Norvasc] 10 mg PO DAILY #30 tab 03/22/21 [Rx Last Taken Unknown] carvedilol [Coreg] 12.5 mg PO BID #60 tab 03/22/21 [Rx Last Taken Unknown] lisinopril 5 mg PO DAILY #30 tab 03/22/21 [Rx Last Taken Unknown] Allergy/AdvReac Type Severity Reaction Status Date / Time adhesive Allergy Rash Verified 03/29/21 19:30 escitalopram oxalate Allergy blindness Verified 03/29/21 19:30 [From Lexapro] gabapentin [From Neurontin] Allergy Alan Verified 03/29/21 19:30 Jez's Syndrome lamotrigine [From Lamictal] Allergy Blindness Verified 03/29/21 19:30 Preservatives Allergy passed Uncoded 03/29/21 19:30 out, lungs deflated sour cream Allergy Anaphylaxis Uncoded 03/29/21 19:30 Family History Father CVA (cerebral vascular accident) Myocardial infarction Grandmother CHF (congestive heart failure) Sister Hypertension Surgical History H/O: hysterectomy History of appendectomy History of cholecystectomy Social History Smoking Status: Never smoker ROS ROS ED Constitutional Constitutional ED: Denies chills, fever(s) or sweats Eyes Eyes: Denies blurry vision or change in vision ENT ENT ED: Denies ear pain, rhinorrhea or sore throat Cardiovascular Cardiovascular: Reports chest pain and other Details: Near syncopal. ; Denies palpitations or racing heartbeat Respiratory/Chest Respiratory/Chest: Denies cough, dyspnea or sputum Gastrointestinal Gastrointestinal: Denies abdominal pain, constipation, diarrhea or vomiting Genitourinary Genitourinary ED: Denies dysuria, hematuria or urinary frequency Musculoskeletal Musculoskeletal: Denies arthralgias, myalgias or neck pain Integumentary Denies abscess, Abrasions or rash Neurologic Neurologic: Denies headache(s), paresthesias or weakness Psychiatric Psychiatric: Denies anxiety, depression, suicidal ideation or suicidal thoughts Endocrine Endocrinology: Denies polydipsia or polyuria EXAM Physical Exam Const Vital Signs: 03/29/21 19:30 03/29/21 19:34 03/29/21 20:02 Temperature 98.4 F Temperature Source Oral Pulse Rate 68 65 Respiratory Rate 15 18 Respiratory Effort Normal Respiratory Pattern Normal Blood Pressure 98/49 L 98/49 L Blood Pressure Mean 65 65 Pulse Ox 100 100 Oxygen Delivery Method Room Air Room Air 03/29/21 21:59 03/29/21 22:49 Temperature Temperature Source Pulse Rate 61 61 Respiratory Rate 15 18 Respiratory Effort Respiratory Pattern Blood Pressure 109/54 L 118/57 L Blood Pressure Mean 72 Pulse Ox 97 100 Oxygen Delivery Method Room Air Positive well nourished General Appearance ED: NAD; Negative for pallor HEENT Reports normocephalic, head/scalp atraumatic and moist mucous membranes trauma Eyes PERRL and EOMs intact bilaterally Neck no lymphadenopathy and supple Chest Wall inspection of chest normal and palpation of chest normal Resp normal respiratory effort and clear to auscultation bilaterally Auscultation: Negative for rales, rhonchi or wheezes Cardio regular rate and regular rhythm GI normal to inspection, nondistended, normoactive bowel sounds and non-distended Auscultation: normoactive bowel sounds Palpation: soft Narrative: Deferred Back/Spine no CVA tenderness General Back: Negative for CVA tenderness Cervical Spine: Negative for cervical spine tenderness Extremity normal to inspection General Extremety ED: Yes edema and tenderness General Extremity: edema Neuro oriented x3 and CN's II-XII intact bilaterally Sensorium / Orientation: alert Motor Exam: strength 5/5 throughout Psych mental status grossly normal Attitude: No agitated Skin no rashes or lesions noted and no wounds General Skin Exam: Negative for jaundice or pallor MDM MDM MDM Narrative Medical decision making narrative: Patient presented with near syncopal episodes and low blood pressure. Have complicated medical history with recent NSTEMI. Patient is a poor informant and does not know all of her medications but I was able to look up her last visit to the ED and found she was on amlodipine 10 mg, carvedilol 12.5 mg, lisinopril 5 mg as well as spironolactone. I did also review her echocardiogram which appeared to have a good EF. Patient's lab work appears at baseline. And her troponin is negative. EKG performed on arrival shows sinus rhythm at [address] elevations or depressions as interpreted by myself. There is no heart block. There is evidence of LVH. Patient's chest x-ray shows cardiomegaly without other acute abnormalities as interpreted by myself and radiology does agree. Patient's creatinine is 1.5 it was near this on her previous visit however this appears historically to wax and wane between 1 and 1.5. Patient was given 1 L of IV fluids and her blood pressure did improve. Patient was discussed with Dr. Deluca who recommended that we discontinue the amlodipine 10 mg. This means that she will continue the carvedilol 12.5 mg, lisinopril 5 mg, spironolactone 25 mg. Patient recommended to follow-up with Dr. Galarza for her scheduled appointment. Is recommended to this patient to check her blood pressures frequently if she has any new or worsening symptoms to return to the ED. Impression: 1. Near syncope 2. Medication side effect Lab Data Attestation: I reviewed the patient's lab results. Labs: Laboratory Results - last 24 hr 03/29/21 03/29/21 19:48 19:48 WBC 2.9 L RBC 2.79 L Hgb 8.4 L Hct 25.0 L MCV 89.6 MCH 30.1 MCHC 33.6 RDW Std Deviation 45.4 H RDW Coeff of Valentina 13.7 Plt Count 87 L MPV 11.1 Immature Gran % (Auto) 0.000 Neut % (Auto) 62.7 Lymph % (Auto) 21.3 [place] % (Auto) 10.5 H Eos % (Auto) 3.8 Baso % (Auto) 1.7 H Absolute Neuts (auto) 1.8 L Absolute Lymphs (auto) 0.61 L Differential Comment SCANNED Sodium 139 Potassium 3.1 L Chloride 108 H Carbon Dioxide 24.0 Anion Gap 7 BUN 17 Creatinine 1.51 H Estim Creat Clear Calc 45.55 Est GFR (MDRD) Af Amer 46 L Est GFR (MDRD) Non-Af 38 L BUN/Creatinine Ratio 11.3 Glucose 114 H Calcium 8.7 Total Bilirubin 0.80 Direct Bilirubin 0.37 H AST 46 H ALT 37 Alkaline Phosphatase 211 H Troponin I < 0.015 Total Protein 7.4 Albumin 2.8 L Globulin 4.6 H Radiography Diagnostic Testing: Radiology Impression Chest X-Ray 03/29/21 20:20 IMPRESSION: Moderate cardiomegaly and pulmonary motion. Electronically Signed: Win Cordero MD at 20:47 EDT Tel , Service support , Discharge Plan Triage Chief Complaint: Hypotension ED Provider: Blake Landaverde Dx/Rx/DC Orders Instructions: ED Low Blood Pressure, All Causes Prescriptions: No Action magnesium oxide 400 MG tablet 400 mg PO BID RF: 0 Xifaxan 550 MG tablet 550 mg PO BID RF: 0 carbamazepine [Carbatrol] 300 MG capsule, ER multiphase 12 hr 100 mg PO BID RF: 0 pregabalin 50 MG capsule 50 mg PO BID RF: 0 sucralfate [Carafate] 1 gram Tablet 1 g PO ACHS RF: 0 spironolactone 25 mg Tablet 25 mg PO DAILY RF: 0 pantoprazole 40 mg Tablet,Delayed Release (Dr/Ec) 40 mg PO DAILY RF: 0 ursodiol 300 mg Capsule 300 mg PO BID RF: 0 sertraline 50 mg Tablet 50 mg PO DAILY RF: 0 insulin lispro [Humalog KwikPen Insulin] 100 unit/mL Insulin Pen 8 unit SUBCUT TID RF: 0 Latuda 40 mg tablet 40 mg PO QHS RF: 0 prednisolone acetate 1 % drops,suspension 1 drp OPHTHALMIC (EYE) 4X/DAY RF: 0 polymyxin B sulf-trimethoprim 10,000 unit- 1 mg/mL drops 1 drp OPHTHALMIC (EYE) 4X/DAY RF: 0 ondansetron 4 mg Tablet,Disintegrating 4 mg PO Q8H PRN (Reason: Nausea) RF: 0 lactulose 10 gram/15 mL solution 30 ml PO TID RF: 0 Tresiba FlexTouch U-100 100 unit/mL (3 mL) insulin pen 24 unit SUBCUT DAILY RF: 0 carvedilol [Coreg] 12.5 mg tablet 12.5 mg PO BID Qty: 60 RF: 0 amlodipine [Norvasc] 10 mg tablet 10 mg PO DAILY Qty: 30 RF: 0 lisinopril 5 mg tablet 5 mg PO DAILY Qty: 30 RF: 0 Primary Care Provider: Janay Canchola Referrals: Bernardo Galarza MD [STAFF PHYSICIAN] - Keep Rick appointment Janay Canchola MD [Primary Care Provider] - Activity Restrictions/Additional Instructions: Please discontinue your 11 low to pain 10 mg daily. Please monitor your blood pressure often. If you have any repeat lightheadedness return to the ED for repeat evaluation Disposition Disposition: Home, self care Discharge Date/Time: 03/29/21 23:02
--- NOTE | 2021-03-29 20:20 | RAD_ITS ---
STUDY: X-RAY CHEST REASON FOR EXAM: Female, 50 years old. Chest pain TECHNIQUE: Single frontal view of the chest. COMPARISON: 04/17/2021. FINDINGS: Cardiac silhouette prominent. Pulmonary vascularity unremarkable. Aorta unremarkable. No focal airspace opacities. No pleural effusions. Upper abdomen demonstrates stent material overlying the right upper quadrant. Osseous structures intact. No pneumothorax. RAD/Chest 1 View (Portable) IMPRESSION: Moderate cardiomegaly and pulmonary motion. Electronically Signed: Win Cordero MD at 20:47 EDT Tel , Service support ,
--- NOTE | 2021-03-29 20:26 | EDS_ITS ---
HPI History of Present Illness Chief Complaint: Hypotension Narrative Narrative: Patient presenting with hypotension and near syncopal episodes which have been occurring more frequently. She was sent by her home health care nurse out of concern that she is taking too much blood pressure medicine. Patient did not bring her medication list with her and she is unsure what she takes for blood pressure. She states that she has had a few episodes of near syncopal events and when she has these episodes she feels heaviness in her chest and then she is able to lower self down. She has not fallen or hit her head. She is scheduled to see Dr. Galarza in follow-up from recent NSTEMI. She states she was started on the road pressure medicines when she was hospitalized for this. [facility] Medical History Anemia Autoimmune hepatitis Bipolar disorder Cirrhosis Depression Diabetes Hepatitis Kidney disease Non-smoker Pancreatitis Home Medications magnesium oxide 400 mg PO BID 03/14/17 [History Last Taken 03/19/21] Xifaxan 550 mg PO BID 11/04/17 [History Last Taken 03/19/21] carbamazepine [Carbatrol] 100 mg PO BID 08/19/18 [History Last Taken 03/19/21] pregabalin 50 mg PO BID 11/06/19 [History Last Taken 03/19/21] Latuda 40 mg PO QHS 03/20/21 [History Last Taken 03/19/21] Tresiba FlexTouch U-100 24 unit SUBCUT DAILY 03/20/21 [History Last Taken Unknown] insulin lispro [Humalog KwikPen Insulin] 8 unit SUBCUT TID 03/20/21 [History Last Taken 03/19/21] lactulose 30 ml PO TID 03/20/21 [History Last Taken Unknown] ondansetron 4 mg PO Q8H PRN 03/20/21 [History Last Taken Unknown] pantoprazole 40 mg PO DAILY 03/20/21 [History Last Taken 03/19/21] polymyxin B sulf-trimethoprim 1 drp OPHTHALMIC (EYE) 4X/DAY 03/20/21 [History Last Taken Unknown] prednisolone acetate 1 drp OPHTHALMIC (EYE) 4X/DAY 03/20/21 [History Last Taken Unknown] sertraline 50 mg PO DAILY 03/20/21 [History Last Taken 03/19/21] spironolactone 25 mg PO DAILY 03/20/21 [History Last Taken 03/19/21] sucralfate [Carafate] 1 g PO ACHS 03/20/21 [History Last Taken 03/19/21] ursodiol 300 mg PO BID 03/20/21 [History Last Taken 03/19/21] amlodipine [Norvasc] 10 mg PO DAILY #30 tab 03/22/21 [Rx Last Taken Unknown] carvedilol [Coreg] 12.5 mg PO BID #60 tab 03/22/21 [Rx Last Taken Unknown] lisinopril 5 mg PO DAILY #30 tab 03/22/21 [Rx Last Taken Unknown] Allergy/AdvReac Type Severity Reaction Status Date / Time adhesive Allergy Rash Verified 03/29/21 19:30 escitalopram oxalate Allergy blindness Verified 03/29/21 19:30 [From Lexapro] gabapentin [From Neurontin] Allergy Alan Verified 03/29/21 19:30 Jez's Syndrome lamotrigine [From Lamictal] Allergy Blindness Verified 03/29/21 19:30 Preservatives Allergy passed Uncoded 03/29/21 19:30 out, lungs deflated sour cream Allergy Anaphylaxis Uncoded 03/29/21 19:30 Family History Father CVA (cerebral vascular accident) Myocardial infarction Grandmother CHF (congestive heart failure) Sister Hypertension Surgical History H/O: hysterectomy History of appendectomy History of cholecystectomy Social History Smoking Status: Never smoker ROS ROS ED Constitutional Constitutional ED: Denies chills, fever(s) or sweats Eyes Eyes: Denies blurry vision or change in vision ENT ENT ED: Denies ear pain, rhinorrhea or sore throat Cardiovascular Cardiovascular: Reports chest pain, palpitations and other Details: Near syncope ; Denies racing heartbeat Respiratory/Chest Respiratory/Chest: Denies cough, dyspnea or sputum Gastrointestinal Gastrointestinal: Denies abdominal pain, constipation, diarrhea or vomiting Genitourinary Genitourinary ED: Denies dysuria, hematuria or urinary frequency Musculoskeletal Musculoskeletal: Denies arthralgias, myalgias or neck pain Integumentary Denies abscess, Abrasions or rash Neurologic Neurologic: Denies headache(s), paresthesias or weakness Psychiatric Psychiatric: Denies anxiety, depression, suicidal ideation or suicidal thoughts Endocrine Endocrinology: Denies polydipsia or polyuria EXAM Physical Exam Const Vital Signs: 03/29/21 19:30 03/29/21 19:34 03/29/21 20:02 Temperature 98.4 F Temperature Source Oral Pulse Rate 68 65 Respiratory Rate 15 18 Respiratory Effort Normal Respiratory Pattern Normal Blood Pressure 98/49 L 98/49 L Blood Pressure Mean 65 65 Pulse Ox 100 100 Oxygen Delivery Method Room Air Room Air 03/29/21 21:59 03/29/21 22:49 Temperature Temperature Source Pulse Rate 61 61 Respiratory Rate 15 18 Respiratory Effort Respiratory Pattern Blood Pressure 109/54 L 118/57 L Blood Pressure Mean 72 Pulse Ox 97 100 Oxygen Delivery Method Room Air Positive well nourished General Appearance ED: NAD; Negative for pallor HEENT Reports normocephalic, head/scalp atraumatic and moist mucous membranes Negative for trauma Eyes PERRL and EOMs intact bilaterally Neck no lymphadenopathy and supple Chest Wall inspection of chest normal and palpation of chest normal Resp normal respiratory effort and clear to auscultation bilaterally Auscultation: Negative for rales, rhonchi or wheezes Cardio regular rate and regular rhythm GI normal to inspection, nondistended, normoactive bowel sounds and non-distended Auscultation: normoactive bowel sounds Palpation: soft Narrative: Deferred Back/Spine no CVA tenderness General Back: Negative for CVA tenderness Cervical Spine: Negative for cervical spine tenderness Extremity normal to inspection General Extremety ED: Yes edema and tenderness General Extremity: edema Neuro oriented x3 and CN's II-XII intact bilaterally Sensorium / Orientation: alert Motor Exam: strength 5/5 throughout Psych mental status grossly normal Attitude: No agitated Skin no rashes or lesions noted and no wounds General Skin Exam: Negative for jaundice or pallor MDM MDM MDM Narrative Medical decision making narrative: Patient seen and evaluated on arrival for hypotension. She states that her home health care nurse has been checking this and she is concerned that she is getting too much blood pressure medication and this is why she is hypotensive. Patient had EKG performed on arrival which shows a sinus rhythm at [address] elevation or depression as interpreted by myself. Patient lab work is near baseline. Her creatinine is near where it was at her last visit. Historically it appears to go up and down. Troponin is negative. Chest x-ray is interpreted by myself shows cardiomegaly without any other acute abnormalities. Patient given IV fluids and her pressure did improve. I did speak with Dr. Deluca who recommended discontinuing her amlodipine 10 mg. This means she will continue her carvedilol 12.5 mg lisinopril 5 mg and spironolactone for home. Patient counseled to follow-up with Dr. Galarza. Return to the ED with new or worsening symptoms. Lab Data Attestation: I reviewed the patient's lab results. Labs: Laboratory Results - last 24 hr 03/29/21 03/29/21 19:48 19:48 WBC 2.9 L RBC 2.79 L Hgb 8.4 L Hct 25.0 L MCV 89.6 MCH 30.1 MCHC 33.6 RDW Std Deviation 45.4 H RDW Coeff of Valentina 13.7 Plt Count 87 L MPV 11.1 Immature Gran % (Auto) 0.000 Neut % (Auto) 62.7 Lymph % (Auto) 21.3 Johnson % (Auto) 10.5 H Eos % (Auto) 3.8 Baso % (Auto) 1.7 H Absolute Neuts (auto) 1.8 L Absolute Lymphs (auto) 0.61 L Differential Comment SCANNED Sodium 139 Potassium 3.1 L Chloride 108 H Carbon Dioxide 24.0 Anion Gap 7 BUN 17 Creatinine 1.51 H Estim Creat Clear Calc 45.55 Est GFR (MDRD) Af Amer 46 L Est GFR (MDRD) Non-Af 38 L BUN/Creatinine Ratio 11.3 Glucose 114 H Calcium 8.7 Total Bilirubin 0.80 Direct Bilirubin 0.37 H AST 46 H ALT 37 Alkaline Phosphatase 211 H Troponin I < 0.015 Total Protein 7.4 Albumin 2.8 L Globulin 4.6 H Radiography Diagnostic Testing: Radiology Impression Chest X-Ray 03/29/21 20:20 IMPRESSION: Moderate cardiomegaly and pulmonary motion. Electronically Signed: Win Cordero MD at 20:47 EDT Tel , Service support , Discharge Plan Triage Chief Complaint: Hypotension ED Provider: Blake Landaverde Dx/Rx/DC Orders Instructions: ED Low Blood Pressure, All Causes Prescriptions: No Action magnesium oxide 400 MG tablet 400 mg PO BID RF: 0 Xifaxan 550 MG tablet 550 mg PO BID RF: 0 carbamazepine [Carbatrol] 300 MG capsule, ER multiphase 12 hr 100 mg PO BID RF: 0 pregabalin 50 MG capsule 50 mg PO BID RF: 0 sucralfate [Carafate] 1 gram Tablet 1 g PO ACHS RF: 0 spironolactone 25 mg Tablet 25 mg PO DAILY RF: 0 pantoprazole 40 mg Tablet,Delayed Release (Dr/Ec) 40 mg PO DAILY RF: 0 ursodiol 300 mg Capsule 300 mg PO BID RF: 0 sertraline 50 mg Tablet 50 mg PO DAILY RF: 0 insulin lispro [Humalog KwikPen Insulin] 100 unit/mL Insulin Pen 8 unit SUBCUT TID RF: 0 Latuda 40 mg tablet 40 mg PO QHS RF: 0 prednisolone acetate 1 % drops,suspension 1 drp OPHTHALMIC (EYE) 4X/DAY RF: 0 polymyxin B sulf-trimethoprim 10,000 unit- 1 mg/mL drops 1 drp OPHTHALMIC (EYE) 4X/DAY RF: 0 ondansetron 4 mg Tablet,Disintegrating 4 mg PO Q8H PRN (Reason: Nausea) RF: 0 lactulose 10 gram/15 mL solution 30 ml PO TID RF: 0 Tresiba FlexTouch U-100 100 unit/mL (3 mL) insulin pen 24 unit SUBCUT DAILY RF: 0 carvedilol [Coreg] 12.5 mg tablet 12.5 mg PO BID Qty: 60 RF: 0 amlodipine [Norvasc] 10 mg tablet 10 mg PO DAILY Qty: 30 RF: 0 lisinopril 5 mg tablet 5 mg PO DAILY Qty: 30 RF: 0 Primary Care Provider: Janay Canchola Referrals: Bernardo Galarza MD [STAFF PHYSICIAN] - Keep Rick appointment Janay Canchola MD [Primary Care Provider] - Activity Restrictions/Additional Instructions: Please discontinue your 11 low to pain 10 mg daily. Please monitor your blood pressure often. If you have any repeat lightheadedness return to the ED for repeat evaluation Disposition Disposition: Home, self care
[2021-03-29 20:33] LABS: Hemoglobin 8.4 g/dL (12.0-15.0); Lymphocyte % 21.3 % (19-41); Mean Corp Hgb Conc 33.6 g/dL (32-36); Mean Corpuscular Hgb 30.1 pg (27.0-32.0); Mean Corpuscular Volume 89.6 fL (81-99); Mean Platelet Vol. 11.1 fl (6.2-12.0); Monocyte% 10.5 % (0-10); Neutrophil % 62.7 % (47-70); Platelet Count 87 K/mm3 (150-450); RBC Distribution Width CV 13.7 % (11.6-14.6); RBC Distribution Width SD 45.4 fl (35.1-43.9); Red Blood Count 2.79 M/mm3 (4.2-5.4); White Blood Count 2.9 K/mm3 (4.4-11.0)
[2021-03-29 20:34] LABS: Absolute Lymphocyte Count 0.61 X10^3/uL (0.83-4.51); Absolute Neutrophil Count 1.8 X10^3/uL (2.0-7.7); Basophil# 0.05 X10^3/uL; Basophil% 1.7 % (0-1); Eosinophil# 0.11 X10^3/uL; Eosinophils% 3.8 % (0-5); Lymphocyte # 0.61 X10^3/ul (0.83-4.51); Neutrophil # 1.79 X10^3/uL (2.7-7.7)
[2021-03-29 20:35] LABS: Differential Indicated SCAN CRITERIA MET
[2021-03-29 20:40] LABS: AST(SGOT) 46 U/L (15-37); Alanine Aminotransfer ALT/SGPT 37 U/L (13-56); Albumin, Serum 2.8 g/dL (3.2-5.0); Alkaline Phosphatase 211 U/L (45-117); Anion Gap 7 (5-15); BUN 17 mg/dL (7-18); BUN/Creat Ratio 11.3 RATIO (10-20); Bilirubin, Direct 0.37 mg/dL (0.00-0.30); Calcium,Total 8.7 mg/dL (8.5-10.1); Chloride 108 mmol/L (98-107); Creatinine, Serum 1.51 mg/dL (0.55-1.02); EST Glomerular Filtration Rate 38 mL/min (>60); Est Glom Filt Rate - Afr Amer 46 mL/min (>60); Estimated Creatinine Clearance 45.55 ml/min; Globulin 4.6 g/dL (2.2-4.2); Glucose 114 mg/dL (74-106); Potassium 3.1 mmol/L (3.5-5.1); Protein, Total 7.4 g/dL (6.4-8.2); Sodium Level 139 mmol/L (136-145)
[2021-03-29 20:56] LABS: Differential Comment SCANNED
[2021-03-29 21:59] VITALS: BP 109/54; PULSE 61; RESP 15; O2SAT 97
[2021-03-29 22:49] VITALS: BP 118/57; PULSE 61; RESP 18; O2SAT 100
== END 2021-03-29 23:02 | disposition home or self-care (01) ==
PROVIDERS: Emergency Provider Student in an Organized Health Care Education/Training Program; PCP Internal Medicine
DX: I95.9 Hypotension, unspecified (principal); E11.9 Type 2 diabetes mellitus without complications; F31.9 Bipolar disorder, unspecified; I25.2 Old myocardial infarction; K74.60 Unspecified cirrhosis of liver; K75.4 Autoimmune hepatitis; Z86.2 Personal history of diseases of the blood and blood-forming organs and certain disorders involving the immune mechanism; Z87.19 Personal history of other diseases of the digestive system; Z79.4 Long term (current) use of insulin; Z79.899 Other long term (current) drug therapy
CPT/HCPCS: 71045; 80048; 80076; 84484; 85025; 93005; 99285; J7030; A4216

== ENCOUNTER 2021-04-03 10:22 | Emergency (ER) | payer MEDICARE, MEDICAID, SELFPAY ==
[2021-04-03 10:23] VITALS: BP 121/66; PULSE 69; RESP 16; TEMP 36.2; O2SAT 99; BMI 26.0
--- NOTE | 2021-04-03 10:53 | EX.ED.DYSGE1 ---
HPI History of Present Illness Chief Complaint: Headache Narrative Narrative: Patient is a 50-year-old female who presents to the emergency department for elevated blood pressure reading at home. She checks it regularly 3 times a day. It was up to 190 systolic today. Her home health nurse recommended she come to the emergency department. Patient did not want to come in. She denies any other symptoms along with this currently. She states that she has had some intermittent headaches as well as nausea. She does take medication for this including Zofran. She has had loose stools but she does take lactulose for her autoimmune hepatitis. Patient does take blood pressure medications. She was recently taken off amlodipine due to low blood pressure reading. She was recently diagnosed with an N STEMI. At that time she did have abdominal pressure as well as nausea that was unrelenting. She states that she has not had any repeat symptoms of this. She denies any chest pain, shortness of breath. No headache now. No leg swelling or calf pain. No significant abdominal pain past baseline. [facility] Medical History Anemia Autoimmune hepatitis Bipolar disorder Cirrhosis Depression Diabetes Hepatitis Kidney disease Non-smoker Pancreatitis Home Medications magnesium oxide 400 mg PO BID 03/14/17 [History Last Taken 03/19/21] Xifaxan 550 mg PO BID 11/04/17 [History Last Taken 03/19/21] carbamazepine [Carbatrol] 100 mg PO BID 08/19/18 [History Last Taken 03/19/21] pregabalin 50 mg PO BID 11/06/19 [History Last Taken 03/19/21] Latuda 40 mg PO QHS 03/20/21 [History Last Taken 03/19/21] Tresiba FlexTouch U-100 24 unit SUBCUT DAILY 03/20/21 [History Last Taken Unknown] insulin lispro [Humalog KwikPen Insulin] 8 unit SUBCUT TID 03/20/21 [History Last Taken 03/19/21] lactulose 30 ml PO TID 03/20/21 [History Last Taken Unknown] ondansetron 4 mg PO Q8H PRN 03/20/21 [History Last Taken Unknown] pantoprazole 40 mg PO DAILY 03/20/21 [History Last Taken 03/19/21] polymyxin B sulf-trimethoprim 1 drp OPHTHALMIC (EYE) 4X/DAY 03/20/21 [History Last Taken Unknown] prednisolone acetate 1 drp OPHTHALMIC (EYE) 4X/DAY 03/20/21 [History Last Taken Unknown] sertraline 50 mg PO DAILY 03/20/21 [History Last Taken 03/19/21] spironolactone 25 mg PO DAILY 03/20/21 [History Last Taken 03/19/21] sucralfate [Carafate] 1 g PO ACHS 03/20/21 [History Last Taken 03/19/21] ursodiol 300 mg PO BID 03/20/21 [History Last Taken 03/19/21] amlodipine [Norvasc] 10 mg PO DAILY #30 tab 03/22/21 [Rx Last Taken Unknown] carvedilol [Coreg] 12.5 mg PO BID #60 tab 03/22/21 [Rx Last Taken Unknown] lisinopril 5 mg PO DAILY #30 tab 03/22/21 [Rx Last Taken Unknown] Allergy/AdvReac Type Severity Reaction Status Date / Time adhesive Allergy Rash Verified 04/03/21 10:23 escitalopram oxalate Allergy blindness Verified 04/03/21 10:23 [From Lexapro] gabapentin [From Neurontin] Allergy Alan Verified 04/03/21 10:23 Jez's Syndrome lamotrigine [From Lamictal] Allergy Blindness Verified 04/03/21 10:23 Preservatives Allergy passed Uncoded 04/03/21 10:23 out, lungs deflated sour cream Allergy Anaphylaxis Uncoded 04/03/21 10:23 Family History Father CVA (cerebral vascular accident) Myocardial infarction Grandmother CHF (congestive heart failure) Sister Hypertension Surgical History H/O: hysterectomy History of appendectomy History of cholecystectomy Social History Smoking Status: Never smoker ROS ROS ED Constitutional Constitutional ED: Denies chills or fever(s) Eyes Eyes: Denies change in vision ENT ENT ED: Denies epistaxis or rhinorrhea Cardiovascular Cardiovascular: Denies chest pain or palpitations Respiratory/Chest Respiratory/Chest: Denies cough, dyspnea or dyspnea on exertion Gastrointestinal Gastrointestinal: Reports abdominal pain and other Details: Intermittent nausea, none currently ; Denies diarrhea or vomiting Genitourinary Genitourinary ED: Denies dysuria, hematuria or urinary frequency Musculoskeletal Musculoskeletal: Denies back pain or neck pain Integumentary Denies rash Neurologic Neurologic: Reports other Details: Headaches that have resolved. ; Denies dizziness or weakness EXAM Physical Exam Const Vital Signs: 04/03/21 10:23 04/03/21 11:07 Temperature 97.1 F L Temperature Source Temporal Pulse Rate 69 76 Respiratory Rate 16 16 Blood Pressure 121/66 H 100/52 L Blood Pressure Mean 84 Pulse Ox 99 99 Oxygen Delivery Method Room Air Positive well nourished and well developed General Appearance ED: well developed and NAD HEENT Reports normocephalic, head/scalp atraumatic and moist mucous membranes Eyes PERRL and EOMs intact bilaterally Neck no lymphadenopathy and supple General: Negative for tenderness Chest Wall inspection of chest normal Resp normal respiratory effort and clear to auscultation bilaterally Auscultation: Negative for rales, rhonchi or wheezes Cardio regular rate and regular rhythm GI normal to inspection, nondistended, normoactive bowel sounds and non-tender Palpation: soft; Negative for guarding or rebound tenderness present Back/Spine no CVA tenderness Extremity normal to inspection General Extremety ED: Negative for edema or tenderness General Extremity: Negative for edema Neuro oriented x3, CN's II-XII intact bilaterally and no sensory deficits noted Sensorium / Orientation: alert Motor Exam: strength 5/5 throughout Psych mental status grossly normal Skin no rashes or lesions noted MDM MDM MDM Narrative Medical decision making narrative: Patient presents to the ED for elevated blood pressure reading. She is currently asymptomatic with this. Upon arrival blood pressure was repeated and normal. I did recheck this in both arms. It has remained within normal limits. Since she has no other complaints I do not feel work-up is necessary at this time. I did discuss with her blood pressure monitoring at home. At this time she does feel comfortable being discharged home. She is going to follow-up with her PCP. Return precautions are reviewed with her. She understands and is agreeable this plan. Discharged home in stable condition. All questions were answered. Discharge Plan Triage Chief Complaint: Headache ED Provider: Cornel Angeles Dx/Rx/DC Orders Clinical Impression: Elevated blood pressure reading Instructions: ED Hypertension, Established Prescriptions: No Action magnesium oxide 400 MG tablet 400 mg PO BID RF: 0 Xifaxan 550 MG tablet 550 mg PO BID RF: 0 carbamazepine [Carbatrol] 300 MG capsule, ER multiphase 12 hr 100 mg PO BID RF: 0 pregabalin 50 MG capsule 50 mg PO BID RF: 0 sucralfate [Carafate] 1 gram Tablet 1 g PO ACHS RF: 0 spironolactone 25 mg Tablet 25 mg PO DAILY RF: 0 pantoprazole 40 mg Tablet,Delayed Release (Dr/Ec) 40 mg PO DAILY RF: 0 ursodiol 300 mg Capsule 300 mg PO BID RF: 0 sertraline 50 mg Tablet 50 mg PO DAILY RF: 0 insulin lispro [Humalog KwikPen Insulin] 100 unit/mL Insulin Pen 8 unit SUBCUT TID RF: 0 Latuda 40 mg tablet 40 mg PO QHS RF: 0 prednisolone acetate 1 % drops,suspension 1 drp OPHTHALMIC (EYE) 4X/DAY RF: 0 polymyxin B sulf-trimethoprim 10,000 unit- 1 mg/mL drops 1 drp OPHTHALMIC (EYE) 4X/DAY RF: 0 ondansetron 4 mg Tablet,Disintegrating 4 mg PO Q8H PRN (Reason: Nausea) RF: 0 lactulose 10 gram/15 mL solution 30 ml PO TID RF: 0 Tresiba FlexTouch U-100 100 unit/mL (3 mL) insulin pen 24 unit SUBCUT DAILY RF: 0 carvedilol [Coreg] 12.5 mg tablet 12.5 mg PO BID Qty: 60 RF: 0 amlodipine [Norvasc] 10 mg tablet 10 mg PO DAILY Qty: 30 RF: 0 lisinopril 5 mg tablet 5 mg PO DAILY Qty: 30 RF: 0 Primary Care Provider: Janay Canchola Referrals: Janay Canchola MD [Primary Care Provider] - 3-5 Days Disposition Disposition: Home, self care Discharge Date/Time: 04/03/21 11:16
[2021-04-03 11:07] VITALS: BP 100/52; PULSE 76; RESP 16; O2SAT 99
== END 2021-04-03 11:16 | disposition home or self-care (01) ==
LOC: ED 11:15
PROVIDERS: Emergency Provider Emergency Medicine; PCP Internal Medicine
DX: R51.9 Headache, unspecified (principal); R03.0 Elevated blood-pressure reading, without diagnosis of hypertension; K75.4 Autoimmune hepatitis; E11.9 Type 2 diabetes mellitus without complications; K74.60 Unspecified cirrhosis of liver; D64.9 Anemia, unspecified; F31.9 Bipolar disorder, unspecified; Z79.4 Long term (current) use of insulin; Z79.899 Other long term (current) drug therapy; I25.2 Old myocardial infarction
CPT/HCPCS: 99282

== ENCOUNTER 2021-04-29 23:06 | Emergency (ER) | payer MEDICARE, MEDICAID, SELFPAY ==
[2021-04-25 14:39] VITALS: BMI 26.5
[2021-04-29 23:07] VITALS: BP 202/85; PULSE 92; RESP 18; TEMP 36.1; O2SAT 100; BMI 27.7
--- NOTE | 2021-04-29 23:13 | EKG12_ITS ---
Test Reason : HYPERGLYCEMIA Blood Pressure : / mmHG Vent. Rate : 084 BPM Atrial Rate : 084 BPM P-R Int : 166 ms QRS Dur : 112 ms QT Int : 412 ms P-R-T Axes : 037 -35 087 degrees QTc Int : 486 ms Normal sinus rhythm Left axis deviation Voltage criteria for left ventricular hypertrophy Prolonged QT Abnormal ECG Confirmed by DEDE ZAMBRANO, ROSA ([id number]), publications editor NORA MENDES ([id number]) on 05/04/2021 9:26:32 AM Referred By: CHRISTINE Confirmed By:ROSA AGUAYO MD
--- NOTE | 2021-04-29 23:27 | EDS_ITS ---
HPI History of Present Illness Chief Complaint: Hyperglycemia Narrative Narrative: 50-year-old female presenting with hypertension and hyperglycemia. Patient states she was on the phone with a nurse today who advised her to check her blood pressure. It was elevated with a systolic of over 200. EMS was called. She states her blood glucose machine has also been reading high. She was recently admitted after having an ME. She states her medications were changed and she is unsure what medication she is supposed to be taking. This is causing her anxiety. She denies chest pain. Denies other complaints. [facility] Medical History Acute UTI JULIANNE (acute kidney injury) Anemia Autoimmune hepatitis Bacteremia due to methicillin resistant Staphylococcus epidermidis Bipolar disorder Cellulitis Chronic pain Cirrhosis of liver Depression Diabetes mellitus Encephalopathy acute Essential (primary) hypertension Reilly's thyroiditis Hepatic encephalopathy Hepatitis Kidney disease MRSA bacteremia Pancreatitis Pancytopenia Peripheral neuropathy Schizoaffective disorder Severe sepsis Splenomegaly Home Medications magnesium oxide 400 mg PO BID 03/14/17 [History Last Taken 03/19/21] Xifaxan 550 mg PO BID 11/04/17 [History Last Taken 03/19/21] Latuda 40 mg PO QHS 03/20/21 [History Last Taken 03/19/21] lactulose 30 ml PO TID 03/20/21 [History Last Taken Unknown] ondansetron 4 mg PO Q8H PRN 03/20/21 [History Last Taken Unknown] pantoprazole 40 mg PO DAILY 03/20/21 [History Last Taken 03/19/21] polymyxin B sulf-trimethoprim 1 drp OPHTHALMIC (EYE) 4X/DAY 03/20/21 [History Last Taken Unknown] prednisolone acetate 1 drp OPHTHALMIC (EYE) 4X/DAY 03/20/21 [History Last Taken Unknown] sertraline 50 mg PO DAILY 03/20/21 [History Last Taken 03/19/21] spironolactone 25 mg PO DAILY 03/20/21 [History Last Taken 03/19/21] sucralfate [Carafate] 1 g PO ACHS 03/20/21 [History Last Taken 03/19/21] lisinopril 5 mg PO DAILY #30 tab 03/22/21 [Rx Last Taken Unknown] amlodipine 5 mg tablet 5 mg PO DAILY #90 tab 04/25/21 [Rx Last Taken Unknown] carvedilol 25 mg tablet 25 mg PO BID #180 tab 04/25/21 [Rx Last Taken Unknown] insulin degludec 100 unit/mL (3 mL) subcutaneous pen 28 unit SUBCUT DAILY ml 04/25/21 [History Last Taken Unknown] insulin lispro 100 unit/mL subcutaneous pen 8 unit SUBCUT TID 04/25/21 [History Last Taken Unknown] pregabalin 50 mg capsule 50 mg PO BID 04/25/21 [History Last Taken Unknown] ursodiol 300 mg capsule 300 mg PO BID 04/25/21 [History Last Taken Unknown] carbamazepine 100 mg PO BID 04/29/21 [History Last Taken Unknown] Allergy/AdvReac Type Severity Reaction Status Date / Time adhesive Allergy Rash Verified 04/29/21 23:31 escitalopram oxalate Allergy blindness Verified 04/29/21 23:31 [From Lexapro] gabapentin [From Neurontin] Allergy Alan Verified 04/29/21 23:31 Jez's Syndrome lamotrigine [From Lamictal] Allergy Blindness Verified 04/29/21 23:31 Preservatives Allergy passed Uncoded 04/29/21 23:31 out, lungs deflated sour cream Allergy Anaphylaxis Uncoded 04/29/21 23:31 Family History Father CVA (cerebral vascular accident) Myocardial infarction Grandmother CHF (congestive heart failure) Sister Hypertension Surgical History H/O: hysterectomy History of abdominal paracentesis (10/2019) History of appendectomy History of cholecystectomy S/P TIPS (transjugular intrahepatic portosystemic shunt) Social History Smoking Status: Never smoker ROS ROS ED Constitutional Constitutional ED: Denies fever(s) Eyes Eyes: Denies change in vision ENT ENT ED: Denies rhinorrhea or sore throat Cardiovascular Cardiovascular: Denies chest pain or palpitations Respiratory/Chest Respiratory/Chest: Denies cough or dyspnea Gastrointestinal Gastrointestinal: Denies abdominal pain, diarrhea, nausea or vomiting Genitourinary Genitourinary ED: Denies dysuria Musculoskeletal Musculoskeletal: Denies myalgias Integumentary Denies rash Neurologic Neurologic: Denies headache(s) Psychiatric Psychiatric: Reports anxiety; Denies suicidal thoughts EXAM Physical Exam Const Vital Signs: 04/29/21 23:07 04/29/21 23:30 Temperature 97 F L Temperature Source Temporal Pulse Rate 92 Respiratory Rate 18 Respiratory Pattern Normal Blood Pressure 202/85 H Blood Pressure Mean 124 Pulse Ox 100 Positive well nourished and well developed General Appearance ED: well developed HEENT Reports normocephalic and head/scalp atraumatic Eyes PERRL and EOMs intact bilaterally Neck supple General: Negative for tenderness Chest Wall inspection of chest normal Resp normal respiratory effort and clear to auscultation bilaterally Cardio regular rate and regular rhythm GI non-tender and non-distended Palpation: soft; Negative for guarding or rebound tenderness present no CVA tenderness Extremity normal to inspection Neuro oriented x3 Sensorium / Orientation: alert Psych mental status grossly normal MDM MDM MDM Narrative Medical decision making narrative: Labs were reviewed. CBC is at her baseline. Glucose 499. Repeat blood pressure 172/90. Insulin and IV fluids were ordered. Patient eloped from the emergency department before receiving her medications. Lab Data Attestation: I reviewed the patient's lab results. Labs: Laboratory Results - last 24 hr 04/29/21 04/29/21 23:42 23:42 WBC 2.0 L RBC 2.85 L Hgb 8.6 L Hct 25.1 L MCV 88.1 MCH 30.2 MCHC 34.3 RDW Std Deviation 40.6 RDW Coeff of Valentina 13.0 Plt Count 67 L MPV 10.7 Immature Gran % (Auto) 0.000 Neut % (Auto) 56.8 Lymph % (Auto) 23.1 Wayne % (Auto) 14.1 H Eos % (Auto) 4.0 Baso % (Auto) 2.0 H Absolute Neuts (auto) 1.1 L Absolute Lymphs (auto) 0.46 L Nucleated RBC % 0 [address] Path Review May foll Sodium 135 L Potassium 3.8 Chloride 103 Carbon Dioxide 25.0 Anion Gap 7 BUN 21 H Creatinine 1.34 H Estim Creat Clear Calc 51.32 Est GFR (MDRD) Af Amer 53 L Est GFR (MDRD) Non-Af 44 L BUN/Creatinine Ratio 15.7 Glucose 499 H* Calcium 8.9 Troponin I < 0.015 EKG Initial EKG: Attestation: I personally reviewed and interpreted this EKG as follows: Interpretation: Sinus Rhythm and No Acute Injury Pattern Prior EKG tracings: available for review Prior: Unchanged Discharge Plan Triage Chief Complaint: Hyperglycemia ED Provider: Radha Barr Dx/Rx/DC Orders Clinical Impression: Hypertension, Acute hyperglycemia Prescriptions: No Action carvedilol 25 mg tablet 25 mg PO BID Qty: 180 RF: 3 amlodipine 5 mg tablet 5 mg PO DAILY Qty: 90 RF: 3 magnesium oxide 400 MG tablet 400 mg PO BID RF: 0 Xifaxan 550 MG tablet 550 mg PO BID RF: 0 pregabalin 50 mg capsule 50 mg PO BID RF: 0 sucralfate [Carafate] 1 gram Tablet 1 g PO ACHS RF: 0 spironolactone 25 mg Tablet 25 mg PO DAILY RF: 0 pantoprazole 40 mg Tablet,Delayed Release (Dr/Ec) 40 mg PO DAILY RF: 0 sertraline 50 mg Tablet 50 mg PO DAILY RF: 0 Latuda 40 mg tablet 40 mg PO QHS RF: 0 prednisolone acetate 1 % drops,suspension 1 drp OPHTHALMIC (EYE) 4X/DAY RF: 0 polymyxin B sulf-trimethoprim 10,000 unit- 1 mg/mL drops 1 drp OPHTHALMIC (EYE) 4X/DAY RF: 0 ondansetron 4 mg Tablet,Disintegrating 4 mg PO Q8H PRN (Reason: Nausea) RF: 0 lactulose 10 gram/15 mL solution 30 ml PO TID RF: 0 lisinopril 5 mg tablet 5 mg PO DAILY Qty: 30 RF: 0 ursodiol 300 mg capsule 300 mg PO BID RF: 0 Tresiba FlexTouch U-100 100 unit/mL (3 mL) insulin pen 28 unit SUBCUT DAILY RF: 0 insulin lispro [Humalog KwikPen Insulin] 100 unit/mL insulin pen 8 unit SUBCUT TID RF: 0 carbamazepine 100 mg Tablet Extended Release 12 Hr 100 mg PO BID RF: 0 Primary Care Provider: Janay Canchola Referrals: Janay Canchola MD [Primary Care Provider] - Disposition Disposition: Elopement
[2021-04-29 23:59] LABS: Absolute Lymphocyte Count 0.46 X10^3/uL (0.83-4.51); Absolute Neutrophil Count 1.1 X10^3/uL (2.0-7.7); Basophil# 0.04 X10^3/uL; Eosinophil# 0.08 X10^3/uL; Hematocrit 25.1 % (37-47); Hemoglobin 8.6 g/dL (12.0-15.0); Lymphocyte # 0.46 X10^3/ul (0.83-4.51); Lymphocyte % 23.1 % (19-41); Mean Corp Hgb Conc 34.3 g/dL (32-36); Mean Corpuscular Hgb 30.2 pg (27.0-32.0); Mean Corpuscular Volume 88.1 fL (81-99); Mean Platelet Vol. 10.7 fl (6.2-12.0); Monocyte# 0.28 X10^3/uL; Monocyte% 14.1 % (0-10); NRBC Flagged by Analyzer 0 % (0-5); Neutrophil # 1.13 X10^3/uL (2.7-7.7); Neutrophil % 56.8 % (47-70); POSITIVE COUNT YES; POSITIVE DIFFERENTIAL YES; Platelet Count 67 K/mm3 (150-450); RBC Distribution Width SD 40.6 fl (35.1-43.9); Red Blood Count 2.85 M/mm3 (4.2-5.4)
[2021-04-30 00:04] LABS: Differential Indicated SCAN CRITERIA MET
[2021-04-30 00:24] LABS: Anion Gap 7 (5-15); BUN 21 mg/dL (7-18); BUN/Creat Ratio 15.7 RATIO (10-20); Calcium,Total 8.9 mg/dL (8.5-10.1); Chloride 103 mmol/L (98-107); Creatinine, Serum 1.34 mg/dL (0.55-1.02); EST Glomerular Filtration Rate 44 mL/min (>60); Est Glom Filt Rate - Afr Amer 53 mL/min (>60); Estimated Creatinine Clearance 51.32 ml/min; Glucose 499 mg/dL (74-106); Potassium 3.8 mmol/L (3.5-5.1); Sodium Level 135 mmol/L (136-145)
--- NOTE | 2021-04-30 01:15 | ED.RN ---
this nurse entered pt's room to find GAB [place], holding pressure to pt's left hand. there was blood on the floor of both sides of the bed. pt refused to have this nurse apply gauze and tape and Genie was able to apply dressing to left hand. pt left ama I have to go home, I have an autistic son
--- NOTE | 2021-04-30 01:43 | ED.RN ---
pt also refused insulin and fluids per orders Dr. Barr informed of same.
[2021-04-30 01:46] VITALS: BP 177/65
[2021-05-01 13:55] LABS: Pathologist Review Reviewed
== END 2021-04-30 01:14 | disposition left against medical advice (07) ==
PROVIDERS: Emergency Provider Emergency Medicine; PCP Internal Medicine
DX: E11.65 Type 2 diabetes mellitus with hyperglycemia (principal); I10 Essential (primary) hypertension; E11.40 Type 2 diabetes mellitus with diabetic neuropathy, unspecified; I25.2 Old myocardial infarction; Z86.14 Personal history of Methicillin resistant Staphylococcus aureus infection; E06.3 Autoimmune thyroiditis; F25.9 Schizoaffective disorder, unspecified; F31.9 Bipolar disorder, unspecified; Z79.899 Other long term (current) drug therapy; Z79.4 Long term (current) use of insulin
CPT/HCPCS: 80048; 84484; 85025; 93005; 99285; A4216

== ENCOUNTER 2021-05-08 12:21 | Inpatient (IN) | payer MEDICARE, MEDICAID, SELFPAY ==
[2021-05-08] VITALS (24 sets, daily range): BP systolic 94–201; BP diastolic 42–107; PULSE 60–90; RESP 14–28; TEMP 36.2–37; O2SAT 98–100; BMI 27.3; BMI 26.7
--- NOTE | 2021-05-08 12:46 | CT_ITS ---
STUDY: CT BRAIN WITHOUT CONTRAST REASON FOR EXAM: Female, 50 years old. altered mental status RADIATION DOSAGE (If Supplied By Facility): CTDIvol = ( 38.43 ) mGy, DLP = ( 698.28 ) mGycm TECHNIQUE: Transaxial CT imaging of the brain was performed without administration of intravenous contrast material. Individualized dose optimization techniques were used for this CT. COMPARISON: No relevant priors. FINDINGS: Normal soft tissue structures. Normal calvarium. Normal size ventricles and extra-axial spaces for the patient''s age. Normal white matter tracts of the cerebral hemispheres. Normal basal ganglia and thalami. Normal brainstem. Normal cerebellum. There is no intracranial hemorrhage. There are no findings of an acute ischemic infarction. Normal visualized paranasal sinuses. CT/Brain/Head without Contrast IMPRESSION: Normal unenhanced CT scan of the brain. Electronically Signed: Akin Cristobal, at 13:11 EDT Tel , Service support ,
--- NOTE | 2021-05-08 12:47 | EKG12_ITS ---
Test Reason : Blood Pressure : / mmHG Vent. Rate : 064 BPM Atrial Rate : 064 BPM P-R Int : 172 ms QRS Dur : 114 ms QT Int : 460 ms P-R-T Axes : 032 -34 073 degrees QTc Int : 474 ms Normal sinus rhythm Left axis deviation Voltage criteria for left ventricular hypertrophy Abnormal ECG Confirmed by PAM ZAMBRANO, RANCHO ([id number]), news assignment editor NORA MENDES ([id number]) on 05/10/2021 9:19:59 AM Referred By: Confirmed By:RANCHO OROZCO MD
[2021-05-08 13:06] LABS: Absolute Lymphocyte Count 0.54 X10^3/uL (0.83-4.51); Absolute Neutrophil Count 1.7 X10^3/uL (2.0-7.7); Basophil# 0.03 X10^3/uL; Basophil% 1.1 % (0-1); Eosinophils% 3.8 % (0-5); Hematocrit 26.2 % (37-47); Hemoglobin 9.1 g/dL (12.0-15.0); Lymphocyte # 0.54 X10^3/ul (0.83-4.51); Lymphocyte % 20.5 % (19-41); Mean Corp Hgb Conc 34.7 g/dL (32-36); Mean Corpuscular Volume 86.5 fL (81-99); Mean Platelet Vol. 10.6 fl (6.2-12.0); Monocyte# 0.25 X10^3/uL; Monocyte% 9.5 % (0-10); NRBC Flagged by Analyzer 0 % (0-5); Neutrophil # 1.72 X10^3/uL (2.7-7.7); Neutrophil % 65.1 % (47-70); POSITIVE COUNT YES; POSITIVE DIFFERENTIAL YES; Platelet Count 77 K/mm3 (150-450); RBC Distribution Width CV 13.4 % (11.6-14.6); RBC Distribution Width SD 41.9 fl (35.1-43.9); Red Blood Count 3.03 M/mm3 (4.2-5.4); White Blood Count 2.6 K/mm3 (4.4-11.0)
[2021-05-08 13:12] LABS: Differential Indicated SCAN CRITERIA MET
[2021-05-08 13:16] LABS: Alcohol, Blood (Medical)-Serum < 3.0 mg/dL
[2021-05-08 13:18] LABS: ALB/GLOB Ratio 0.7 RATIO (0.9-2.4); AST(SGOT) 29 U/L (15-37); Alanine Aminotransfer ALT/SGPT 25 U/L (13-56); Albumin, Serum 3.1 g/dL (3.2-5.0); Alkaline Phosphatase 159 U/L (45-117); Anion Gap 9 (5-15); BUN 21 mg/dL (7-18); BUN/Creat Ratio 15.7 RATIO (10-20); Calcium,Total 8.6 mg/dL (8.5-10.1); Chloride 106 mmol/L (98-107); Creatinine, Serum 1.34 mg/dL (0.55-1.02); EST Glomerular Filtration Rate 44 mL/min (>60); Est Glom Filt Rate - Afr Amer 53 mL/min (>60); Estimated Creatinine Clearance 51.32 ml/min; Globulin 4.2 g/dL (2.2-4.2); Glucose 280 mg/dL (74-106); Lipase 157 U/L (73-393); Protein, Total 7.3 g/dL (6.4-8.2); Sodium Level 141 mmol/L (136-145)
--- NOTE | 2021-05-08 13:25 | EDS_ITS ---
HPI History of Present Illness Chief Complaint: Confusion Informant: patient Narrative Narrative: EMS brings 50-year-old female in for altered mental status. She has a history of autoimmune hepatitis and supposed to be taking lactulose. She reportedly has had vomiting over the past 3 days and not taking it. Family tried to get her into the car to take her to the hospital but she was too lethargic. No other history is given. Patient cannot provide any history [facility] Medical History Acute UTI JULIANNE (acute kidney injury) Anemia Autoimmune hepatitis Bacteremia due to methicillin resistant Staphylococcus epidermidis Bipolar disorder Cellulitis Chronic pain Cirrhosis of liver Depression Diabetes mellitus Encephalopathy acute Essential (primary) hypertension Reilly's thyroiditis Hepatic encephalopathy Hepatitis Kidney disease MRSA bacteremia Pancreatitis Pancytopenia Peripheral neuropathy Schizoaffective disorder Severe sepsis Splenomegaly Home Medications magnesium oxide 400 mg PO BID 03/14/17 [History Last Taken 03/19/21] Xifaxan 550 mg PO BID 11/04/17 [History Last Taken 03/19/21] Latuda 40 mg PO QHS 03/20/21 [History Last Taken 03/19/21] lactulose 30 ml PO TID 03/20/21 [History Last Taken Unknown] ondansetron 4 mg PO Q8H PRN 03/20/21 [History Last Taken Unknown] pantoprazole 40 mg PO DAILY 03/20/21 [History Last Taken 03/19/21] polymyxin B sulf-trimethoprim 1 drp OPHTHALMIC (EYE) 4X/DAY 03/20/21 [History Last Taken Unknown] prednisolone acetate 1 drp OPHTHALMIC (EYE) 4X/DAY 03/20/21 [History Last Taken Unknown] sertraline 50 mg PO DAILY 03/20/21 [History Last Taken 03/19/21] spironolactone 25 mg PO DAILY 03/20/21 [History Last Taken 03/19/21] sucralfate [Carafate] 1 g PO ACHS 03/20/21 [History Last Taken 03/19/21] lisinopril 5 mg PO DAILY #30 tab 03/22/21 [Rx Last Taken Unknown] amlodipine 5 mg tablet 5 mg PO DAILY #90 tab 04/25/21 [Rx Last Taken Unknown] carvedilol 25 mg tablet 25 mg PO BID #180 tab 04/25/21 [Rx Last Taken Unknown] insulin degludec 100 unit/mL (3 mL) subcutaneous pen 28 unit SUBCUT DAILY ml 04/25/21 [History Last Taken Unknown] insulin lispro 100 unit/mL subcutaneous pen 8 unit SUBCUT TID 04/25/21 [History Last Taken Unknown] pregabalin 50 mg capsule 50 mg PO BID 04/25/21 [History Last Taken Unknown] ursodiol 300 mg capsule 300 mg PO BID 04/25/21 [History Last Taken Unknown] carbamazepine 100 mg PO BID 04/29/21 [History Last Taken Unknown] Allergy/AdvReac Type Severity Reaction Status Date / Time adhesive Allergy Rash Verified 05/08/21 12:21 escitalopram oxalate Allergy blindness Verified 05/08/21 12:21 [From Lexapro] gabapentin [From Neurontin] Allergy Alan Verified 05/08/21 12:21 Jez's Syndrome lamotrigine [From Lamictal] Allergy Blindness Verified 05/08/21 12:21 Preservatives Allergy passed Uncoded 05/08/21 12:21 out, lungs deflated sour cream Allergy Anaphylaxis Uncoded 05/08/21 12:21 Family History Father CVA (cerebral vascular accident) Myocardial infarction Grandmother CHF (congestive heart failure) Sister Hypertension Surgical History H/O: hysterectomy History of abdominal paracentesis (10/2019) History of appendectomy History of cholecystectomy S/P TIPS (transjugular intrahepatic portosystemic shunt) Social History Smoking Status: Never smoker substance use type: does not use ROS ROS ED Review of Systems ROS Unobtainable: due to mental status Gastrointestinal Gastrointestinal: Reports nausea and vomiting EXAM Physical Exam Const Vital Signs: 05/08/21 12:22 05/08/21 12:43 05/08/21 13:25 Temperature 97.2 F L Temperature Source Temporal Pulse Rate 75 63 65 Respiratory Rate 28 H 15 15 Blood Pressure 157/81 H 156/79 H 174/86 H Blood Pressure Mean 106 104 115 Pulse Ox 99 100 98 Oxygen Delivery Method Room Air Room Air Room Air Positive well nourished and well developed General Appearance ED: well developed HEENT Reports normocephalic, head/scalp atraumatic and moist mucous membranes HEENT Narrative: Minimal gag reflex Eyes PERRL and EOMs intact bilaterally Neck no lymphadenopathy, supple and no JVD Resp normal respiratory effort and clear to auscultation bilaterally Cardio regular rate, regular rhythm and no murmurs GI normal to inspection, nondistended, normoactive bowel sounds and non-tender Palpation: soft Back/Spine no CVA tenderness and normal ROM Extremity normal to inspection General Extremety ED: Negative for edema General Extremity: Negative for edema Neuro Neuro Narrative: GCS is 6 Sensorium / Orientation: stuporous Psych mental status grossly normal Mood & Affect: Negative for depressed or tearful Skin no rashes or lesions noted and no wounds MDM MDM MDM Narrative Medical decision making narrative: Basic labs showed pancytopenia consistent with her history. Creatinine 1.34. Alk phos 159. Alcohol level negative. INR 1.3. Lactic acid is normal. Ammonia level is 176. There is evidence of UTI. Patient received IV fluids Rocephin after blood cultures. Because of the patient's GCS and her need to have lactulose decision was discussed with her family to intubate her and they are in agreement. Patient underwent RSI using etomidate and rocuronium. Endotracheal tube was passed on the first attempt without any difficulty. It was secured into place. An OG tube was also placed without difficulty. Patient received lactulose down the OG tube. Post line x- ray showed good positioning. Patient will be admitted to the ICU. I did discuss the case with both our hospitalist Dr. Choe and our it lead Dr. Alfonso Lab Data Attestation: I reviewed the patient's lab results. Labs: Laboratory Results - last 24 hr 05/08/21 05/08/21 05/08/21 12:35 12:35 12:35 WBC 2.6 L RBC 3.03 L Hgb 9.1 L Hct 26.2 L MCV 86.5 MCH 30.0 MCHC 34.7 RDW Std Deviation 41.9 RDW Coeff of Valentina 13.4 Plt Count 77 L MPV 10.6 Immature Gran % (Auto) 0.000 Neut % (Auto) 65.1 Lymph % (Auto) 20.5 [place] % (Auto) 9.5 Eos % (Auto) 3.8 Baso % (Auto) 1.1 H Absolute Neuts (auto) 1.7 L Absolute Lymphs (auto) 0.54 L Nucleated RBC % 0 Diff Path Review May foll Platelet Estimate MOD DEC Microcytosis 2+ PT INR APTT Sodium 141 Potassium 4.0 Chloride 106 Carbon Dioxide 26.0 Anion Gap 9 BUN 21 H Creatinine 1.34 H Estim Creat Clear Calc 51.32 Est GFR (MDRD) Af Amer 53 L Est GFR (MDRD) Non-Af 44 L BUN/Creatinine Ratio 15.7 Glucose 280 H Lactic Acid Calcium 8.6 Total Bilirubin 0.80 AST 29 ALT 25 Alkaline Phosphatase 159 H Ammonia Total Protein 7.3 Albumin 3.1 L Globulin 4.2 Albumin/Globulin Ratio 0.7 L Lipase 157 Urine Color Urine Clarity Urine pH Ur Specific [place] Urine Protein Urine Glucose (UA) Urine Ketones Urine Occult Blood Urine Nitrite Urine Bilirubin Urine Urobilinogen Ur Leukocyte Esterase Urine RBC Urine WBC Ur Squamous Epith Cells Urine Bacteria Urine Mucus Urine Opiates Screen Urine Methadone Screen Ur Barbiturates Screen Ur Phencyclidine Scrn Ur Amphetamines Screen U Methamphetamin-MDMA U Benzodiazepines Scrn Urine Cocaine Screen U Cannabinoids Screen Ur Drug Screen Comment Ethyl Alcohol < 3.0 05/08/21 05/08/21 05/08/21 13:12 13:12 13:20 WBC RBC Hgb Hct MCV MCH MCHC RDW Std Deviation RDW Coeff of Valentina Plt Count MPV Immature Gran % (Auto) Neut % (Auto) Lymph % (Auto) [place] % (Auto) Eos % (Auto) Baso % (Auto) Absolute Neuts (auto) Absolute Lymphs (auto) Nucleated RBC % Diff Path Review Platelet Estimate Microcytosis PT 15.1 H INR 1.3 APTT 28.6 Sodium Potassium Chloride Carbon Dioxide Anion Gap BUN Creatinine Estim Creat Clear Calc Est GFR (MDRD) Af Amer Est GFR (MDRD) Non-Af BUN/Creatinine Ratio Glucose Lactic Acid Calcium Total Bilirubin AST ALT Alkaline Phosphatase Ammonia Total Protein Albumin Globulin Albumin/Globulin Ratio Lipase Urine Color Yellow Urine Clarity Cloudy Urine pH 6.0 Ur Specific [place] 1.015 Urine Protein 30 H Urine Glucose (UA) 1000 H Urine Ketones 5 H Urine Occult Blood 25 H Urine Nitrite Positive H Urine Bilirubin Negative Urine Urobilinogen 1 H Ur Leukocyte Esterase 500 H Urine RBC 0-5 SEEN Urine WBC 25-50 SEEN Ur Squamous Epith Cells 5-10 SEEN Urine Bacteria 3+ Urine Mucus 0 SEEN Urine Opiates Screen NEGATIVE Urine Methadone Screen NEGATIVE Ur Barbiturates Screen NEGATIVE Ur Phencyclidine Scrn NEGATIVE Ur Amphetamines Screen NEGATIVE U Methamphetamin-MDMA NEGATIVE U Benzodiazepines Scrn NEGATIVE Urine Cocaine Screen NEGATIVE U Cannabinoids Screen NEGATIVE Ur Drug Screen Comment Ethyl Alcohol 05/08/21 05/08/21 13:20 13:35 WBC RBC Hgb Hct MCV MCH MCHC RDW Std Deviation RDW Coeff of Valentina Plt Count MPV Immature Gran % (Auto) Neut % (Auto) Lymph % (Auto) [place] % (Auto) Eos % (Auto) Baso % (Auto) Absolute Neuts (auto) Absolute Lymphs (auto) Nucleated RBC % Diff Path Review Platelet Estimate Microcytosis PT INR APTT Sodium Potassium Chloride Carbon Dioxide Anion Gap BUN Creatinine Estim Creat Clear Calc Est GFR (MDRD) Af Amer Est GFR (MDRD) Non-Af BUN/Creatinine Ratio Glucose Lactic Acid 1.6 Calcium Total Bilirubin AST ALT Alkaline Phosphatase Ammonia 179.0 H Total Protein Albumin Globulin Albumin/Globulin Ratio Lipase Urine Color Urine Clarity Urine pH Ur Specific [place] Urine Protein Urine Glucose (UA) Urine Ketones Urine Occult Blood Urine Nitrite Urine Bilirubin Urine Urobilinogen Ur Leukocyte Esterase Urine RBC Urine WBC Ur Squamous Epith Cells Urine Bacteria Urine Mucus Urine Opiates Screen Urine Methadone Screen Ur Barbiturates Screen Ur Phencyclidine Scrn Ur Amphetamines Screen U Methamphetamin-MDMA U Benzodiazepines Scrn Urine Cocaine Screen U Cannabinoids Screen Ur Drug Screen Comment Ethyl Alcohol Radiography Diagnostic Testing: Radiology Impression Brain CT 05/08/21 12:46 IMPRESSION: Normal unenhanced CT scan of the brain. Electronically Signed: Akin Cristobal, at 13:11 EDT Tel , Service support , EKG Initial EKG: Attestation: I personally reviewed and interpreted this EKG as follows: Comments: EKG demonstrates a normal sinus rhythm at a rate of 64. No concerning features of ACS or ectopy noted. Critical Care Time Critical Care Time: Yes Critical care time (excluding procedures): 30-74 minutes (35 min), Including time spent:, Discussing w/Patient &/or Family/Bone Char Operator, Discussing w/Consultants, Arranging Admission or Transfer and Performing Direct Patient Care at Bedside Discharge Plan Dx/Rx/DC Orders Clinical Impression: UTI (urinary tract infection), Acute hepatic encephalopathy, Airway intubation performed without difficulty, Pancytopenia Disposition Disposition: Acute Care [facility]
[2021-05-08 13:37] LABS: International Normalized Ratio 1.3; Partial Thromboplast Time 28.6 Seconds (24.1-36.2); Prothrombin Time (Protime)PT. 15.1 SECONDS (11.7-14.9)
[2021-05-08 13:38] LABS: Microcytosis 2+; Platelet Estimate MOD DEC (ADEQ)
[2021-05-08] MEDS: 0.9% Normal Saline 1,000 ML 1000 ML IV (13:43)
[2021-05-08 13:44] LABS: Mucous, Urine 0 SEEN /hpf (<or=2+)
[2021-05-08 13:50] LABS: Color, Urine Yellow (Yellow); Glucose, Dipstick 1000 mg/dl (Normal); Ketone-Dipstick 5 mg/dl (Negative); Leukocyte Esterase-Dipstick 500 /ul (Negative); Nitrite-Dipstick Positive (Negative); Occult Blood-Urine 25 /ul (Negative); Protein-Dipstick 30 mg/dl (Negative); Specific Gravity, Urine 1.015 (1.002-1.030); Urine Bilirubin Dipstick Negative (Negative); Urine Clarity Cloudy (Clear); Urine Urobilinogen 1 mg/dl (Normal)
[2021-05-08 13:54] LABS: Lactic Acid 1.6 mmol/L (0.4-1.9)
[2021-05-08 13:55] LABS: Bacteria 3+ /hpf (None Seen); Red Blood Cells-Urine 0-5 SEEN /hpf (0-5); Squamous Epithelial Cells - UA 5-10 SEEN /hpf (5-10); White Blood Cells 25-50 SEEN /hpf (0-5)
--- NOTE | 2021-05-08 13:59 | ED.RN ---
SPOKE TO SISTER YUKO, UPDATED ON CURRENT STATUS, RECOMMENDATION FOR INTUBATION. SISTER STATES PT WOULD WANT EVERYTHING POSSIBLE DONE, AND IS IN AGREEMENT WITH TX PLAN.
[2021-05-08] MEDS: Etomidate 20 MG/10 ML Vial IV (14:05)
[2021-05-08] MEDS: Rocuronium Bromide 50 MG/5 ML Vial 66 MG IV (14:07)
[2021-05-08 14:09] LABS: Amphetamine Urine VISTA NEGATIVE (<1000 ng/mL); Barbiturate Urine VISTA NEGATIVE (< 200 ng/mL); Benzodiazepine Urine VISTA NEGATIVE (< 200 ng/mL); Cocaine Urine VISTA NEGATIVE (< 300 ng/mL); Ecstacy Urine VISTA NEGATIVE (< 500 ng/mL); Methadone Urine VISTA NEGATIVE (< 300 ng/mL); PCP Urine VISTA NEGATIVE (< 25 ng/mL); THC Urine VISTA NEGATIVE (< 50 ng/mL); Vista UDS pH Range 6
[2021-05-08] MEDS: Propofol 10MG/Ml 1,000 MG/100 ML Bottle 5 MG CONT INF (14:15)
--- NOTE | 2021-05-08 14:19 | RAD_ITS ---
STUDY: X-RAY CHEST REASON FOR EXAM: Female, 50 years old. altered mental status TECHNIQUE: 1 view COMPARISON: 02/15/2021. FINDINGS: There is consolidation involving the left left lower lobe behind the heart. Cardiac silhouette is mildly enlarged. There is of the lung cadena and costophrenic angles are clear. There is endotracheal tube is 6.3 cm above the julian. There is an NG tube with the tip in the stomach. There is evidence of TIPS procedure. RAD/Chest 1 View (Portable) IMPRESSION: Consolidation left lower lobe. Electronically Signed: Akin Cristobal, at 14:37 EDT Tel , Service support ,
[2021-05-08] MEDS: Ceftriaxone 1 GM/50 ML BAG IV (14:50)
--- NOTE | 2021-05-08 15:06 | PCM.HP.STD ---
HPI - General General Date of Admission: 05/08/21 Date of Service: 05/08/21 Chief Complaint: Lethargy, confusion. HPI Narrative ANA GARCÍA, is a 50 F with past medical history as mentioned above presented to the emergency room because of lethargy and confusion. At this time, patient is intubated and on mechanical ventilation, she is on sedation as well. No family members at the bedside. Reportedly, patient has been having nausea and vomiting over the last 3 days, was refusing to take any of her medications. Today, she started to be very drowsy and lethargic and almost unresponsive according to her family. Currently, patient is unable to provide any history. She had a history of autoimmune hepatitis and she is supposed to be on lactulose and rifaximin but reportedly, she has not been taking those medications. She had a history of type 2 diabetes mellitus that she has been on insulin and obviously, her blood sugar was not under good control. She had a history of hypertension, has been on Norvasc and lisinopril and her blood pressure was elevated in the ED after intubation. In the emergency room, patient was unresponsive, [place] Coma Scale was 6. She was intubated for airway protection. She was afebrile, blood pressure was elevated, currently on mechanical ventilation. Routine blood work was remarkable for chronic pancytopenia, BUN is 21, creatinine is 1.34. Blood glucose was 280, no evidence of DKA. Lactic acid was 1.6. LFT was unremarkable. Serum ammonia was 179. Urinalysis revealed cloudy urine, positive for nitrite, 500 leukocyte esterase, 25-50 WBCs and 2+ bacteria. CT scan brain showed no acute findings. EKG revealed normal sinus rhythm, left axis deviation, no acute changes. Chest x-ray reviewed, reported as left lower lobe consolidation which I doubt, I doubt pneumonia. Urine drug screen was negative. Blood alcohol level was less than 3. Patient is being admitted for acute hepatic encephalopathy, hyperammonemia, acute cystitis and acute respiratory failure. [facility] Medical History (Updated 05/08/21 @ 15:[address] Herman Galloway MD) Anemia Autoimmune hepatitis Bacteremia due to methicillin resistant Staphylococcus epidermidis Bipolar disorder Chronic pain Cirrhosis of liver Depression Diabetes mellitus Encephalopathy acute Essential (primary) hypertension Reilly's thyroiditis Hepatic encephalopathy Hepatitis Kidney disease MRSA bacteremia Pancreatitis Pancytopenia Peripheral neuropathy Schizoaffective disorder Severe sepsis Splenomegaly Home Medications magnesium oxide 400 mg PO BID 03/14/17 [History Last Taken 03/19/21] Xifaxan 550 mg PO BID 11/04/17 [History Last Taken 03/19/21] Latuda 40 mg PO QHS 03/20/21 [History Last Taken 03/19/21] pantoprazole 40 mg PO DAILY 03/20/21 [History Last Taken 03/19/21] prednisolone acetate 1 drp OPHTHALMIC (EYE) 4X/DAY 03/20/21 [History Last Taken Unknown] sertraline 50 mg PO DAILY 03/20/21 [History Last Taken 03/19/21] sucralfate [Carafate] 1 g PO ACHS 03/20/21 [History Last Taken 03/19/21] lisinopril 5 mg PO DAILY #30 tab 03/22/21 [Rx Last Taken Unknown] carvedilol 25 mg tablet 25 mg PO BID #180 tab 04/25/21 [Rx Last Taken Unknown] insulin lispro 100 unit/mL subcutaneous pen 8 unit SUBCUT TID 04/25/21 [History Last Taken Unknown] pregabalin 50 mg capsule 50 mg PO BID 04/25/21 [History Last Taken Unknown] ursodiol 300 mg capsule 300 mg PO BID 04/25/21 [History Last Taken Unknown] carbamazepine 100 mg PO BID 04/29/21 [History Last Taken Unknown] amlodipine 5 mg PO DAILY 05/08/21 [History Last Taken Unknown] ketorolac 1 drp EACH EYE 4X/DAY 05/08/21 [History Last Taken Unknown] lidocaine 1 applic TOPICAL DAILY 05/08/21 [History Last Taken Unknown] spironolactone 50 mg PO DAILY 05/08/21 [History Last Taken Unknown] zinc gluconate 50 mg PO DAILY 05/08/21 [History Last Taken Unknown] Allergy/AdvReac Type Severity Reaction Status Date / Time adhesive Allergy Rash Verified 05/08/21 12:21 escitalopram oxalate Allergy blindness Verified 05/08/21 12:21 [From Lexapro] gabapentin [From Neurontin] Allergy Alan Verified 05/08/21 12:21 Jez's Syndrome lamotrigine [From Lamictal] Allergy Blindness Verified 05/08/21 12:21 Preservatives Allergy passed Uncoded 05/08/21 12:21 out, lungs deflated sour cream Allergy Anaphylaxis Uncoded 05/08/21 12:21 Family History Father CVA (cerebral vascular accident) Myocardial infarction Grandmother CHF (congestive heart failure) Sister Hypertension Surgical History H/O: hysterectomy History of abdominal paracentesis (10/2019) History of appendectomy History of cholecystectomy S/P TIPS (transjugular intrahepatic portosystemic shunt) Social History Smoking Status: Never smoker substance use type: does not use ROS Review of Systems ROS Unobtainable: due to encephalopathy and due to endotracheal tube Vital Signs Vital Signs Vital Signs: 05/08/21 12:22 05/08/21 12:43 05/08/21 13:25 Temperature 97.2 F L Temperature Source Temporal Pulse Rate 75 63 65 Respiratory Rate 28 H 15 15 Blood Pressure 157/81 H 156/79 H 174/86 H Blood Pressure Mean 106 104 115 Pulse Ox 99 100 98 Oxygen Delivery Method Room Air Room Air Room Air 05/08/21 14:30 05/08/21 14:44 Temperature Temperature Source Pulse Rate 78 Respiratory Rate 22 H Blood Pressure 201/107 H 182/106 H Blood Pressure Mean 138 131 Pulse Ox 99 Oxygen Delivery Method Mechanical Ventilator Weight Weight: 185 lb 3.013 oz Body Mass Index (BMI) 27.3 Physical Exam Const Constitutional Narrative: Patient is intubated, sedated, on mechanical ventilation. HEENT normocephalic, moist oral mucous membranes and oropharynx normal Eyes PERRL, conjunctivae normal and no scleral icterus Neck no lymphadenopathy, supple, no JVD and no carotid bruits Resp clear to auscultation bilaterally Resp Narrative: Diminished breath sounds bilateral, otherwise clear. Auscultation: Negative for crackles, rales, rhonchi or wheezes Cardio regular rate, regular rhythm, S1 normal heart sound, S2 normal heart sound and no murmurs GI normal to inspection, nondistended, normoactive bowel sounds, soft to palpation, non-tender and non-distended; Negative for hepatosplenomegaly Extremity normal to inspection and no clubbing, cyanosis or edema Skin no rashes or lesions noted, no wounds, no petechiae and no mottling Neuro Neuro Narrative: Unable to perform full neuro examination because patient is on mechanical ventilation. Sensorium / Orientation: sedated on vent Meningeal Signs: no meningeal signs Psych Psych Narrative: Unable to assess. Results Lab / Micro Data Result Diagrams: 05/08/21 12:35 05/08/21 12:35 Labs: Laboratory Results - last 24 hr 05/08/21 05/08/21 05/08/21 12:35 12:35 12:35 WBC 2.6 L RBC 3.03 L Hgb 9.1 L Hct 26.2 L MCV 86.5 MCH 30.0 MCHC 34.7 RDW Std Deviation 41.9 RDW Coeff of Valentina 13.4 Plt Count 77 L MPV 10.6 Immature Gran % (Auto) 0.000 Neut % (Auto) 65.1 Lymph % (Auto) 20.5 [place] % (Auto) 9.5 Eos % (Auto) 3.8 Baso % (Auto) 1.1 H Absolute Neuts (auto) 1.7 L Absolute Lymphs (auto) 0.54 L Nucleated RBC % 0 Diff Path Review May foll Platelet Estimate MOD DEC Microcytosis 2+ PT INR APTT Sodium 141 Potassium 4.0 Chloride 106 Carbon Dioxide 26.0 Anion Gap 9 BUN 21 H Creatinine 1.34 H Estim Creat Clear Calc 51.32 Est GFR (MDRD) Af Amer 53 L Est GFR (MDRD) Non-Af 44 L BUN/Creatinine Ratio 15.7 Glucose 280 H Lactic Acid Calcium 8.6 Total Bilirubin 0.80 AST 29 ALT 25 Alkaline Phosphatase 159 H Ammonia Total Protein 7.3 Albumin 3.1 L Globulin 4.2 Albumin/Globulin Ratio 0.7 L Lipase 157 Urine Color Urine Clarity Urine pH Ur Specific Bernard Urine Protein Urine Glucose (UA) Urine Ketones Urine Occult Blood Urine Nitrite Urine Bilirubin Urine Urobilinogen Ur Leukocyte Esterase Urine RBC Urine WBC Ur Squamous Epith Cells Urine Bacteria Urine Mucus Urine Opiates Screen Urine Methadone Screen Ur Barbiturates Screen Ur Phencyclidine Scrn Ur Amphetamines Screen U Methamphetamin-MDMA U Benzodiazepines Scrn Urine Cocaine Screen U Cannabinoids Screen Ur Drug Screen Comment Ethyl Alcohol < 3.0 05/08/21 05/08/21 05/08/21 13:12 13:12 13:20 WBC RBC Hgb Hct MCV MCH MCHC RDW Std Deviation RDW Coeff of Valentina Plt Count MPV Immature Gran % (Auto) Neut % (Auto) Lymph % (Auto) [place] % (Auto) Eos % (Auto) Baso % (Auto) Absolute Neuts (auto) Absolute Lymphs (auto) Nucleated RBC % Diff Path Review Platelet Estimate Microcytosis PT 15.1 H INR 1.3 APTT 28.6 Sodium Potassium Chloride Carbon Dioxide Anion Gap BUN Creatinine Estim Creat Clear Calc Est GFR (MDRD) Af Amer Est GFR (MDRD) Non-Af BUN/Creatinine Ratio Glucose Lactic Acid Calcium Total Bilirubin AST ALT Alkaline Phosphatase Ammonia Total Protein Albumin Globulin Albumin/Globulin Ratio Lipase Urine Color Yellow Urine Clarity Cloudy Urine pH 6.0 Ur Specific Bernard 1.015 Urine Protein 30 H Urine Glucose (UA) 1000 H Urine Ketones 5 H Urine Occult Blood 25 H Urine Nitrite Positive H Urine Bilirubin Negative Urine Urobilinogen 1 H Ur Leukocyte Esterase 500 H Urine RBC 0-5 SEEN Urine WBC 25-50 SEEN Ur Squamous Epith Cells 5-10 SEEN Urine Bacteria 3+ Urine Mucus 0 SEEN Urine Opiates Screen NEGATIVE Urine Methadone Screen NEGATIVE Ur Barbiturates Screen NEGATIVE Ur Phencyclidine Scrn NEGATIVE Ur Amphetamines Screen NEGATIVE U Methamphetamin-MDMA NEGATIVE U Benzodiazepines Scrn NEGATIVE Urine Cocaine Screen NEGATIVE U Cannabinoids Screen NEGATIVE Ur Drug Screen Comment Ethyl Alcohol 05/08/21 05/08/21 13:20 13:35 WBC RBC Hgb Hct MCV MCH MCHC RDW Std Deviation RDW Coeff of Valentina Plt Count MPV Immature Gran % (Auto) Neut % (Auto) Lymph % (Auto) [place] % (Auto) Eos % (Auto) Baso % (Auto) Absolute Neuts (auto) Absolute Lymphs (auto) Nucleated RBC % Diff Path Review Platelet Estimate Microcytosis PT INR APTT Sodium Potassium Chloride Carbon Dioxide Anion Gap BUN Creatinine Estim Creat Clear Calc Est GFR (MDRD) Af Amer Est GFR (MDRD) Non-Af BUN/Creatinine Ratio Glucose Lactic Acid 1.6 Calcium Total Bilirubin AST ALT Alkaline Phosphatase Ammonia 179.0 H Total Protein Albumin Globulin Albumin/Globulin Ratio Lipase Urine Color Urine Clarity Urine pH Ur Specific Bernard Urine Protein Urine Glucose (UA) Urine Ketones Urine Occult Blood Urine Nitrite Urine Bilirubin Urine Urobilinogen Ur Leukocyte Esterase Urine RBC Urine WBC Ur Squamous Epith Cells Urine Bacteria Urine Mucus Urine Opiates Screen Urine Methadone Screen Ur Barbiturates Screen Ur Phencyclidine Scrn Ur Amphetamines Screen U Methamphetamin-MDMA U Benzodiazepines Scrn Urine Cocaine Screen U Cannabinoids Screen Ur Drug Screen Comment Ethyl Alcohol Radiology Impression Brain CT 05/08/21 12:46 IMPRESSION: Normal unenhanced CT scan of the brain. Electronically Signed: Akin Cristobal, at 13:11 EDT Tel , Service support , Chest X-Ray 05/08/21 14:19 IMPRESSION: Consolidation left lower lobe. Electronically Signed: Akin Cristobal, at 14:37 EDT Tel , Service support , Assessment & Plan Assessment/Plan (1) Acute hepatic encephalopathy: (2) UTI (urinary tract infection): (3) Hypertension: (4) Diabetes mellitus, type 2: (5) Essential (primary) hypertension: (6) Pancytopenia: (7) Autoimmune hepatitis: PLAN: This is a 50 years old female patient presented to the emergency room because of confusion and lethargy, found to have mild elevated ammonia in context of history of autoimmune otitis and liver cirrhosis consistent with acute hepatic encephalopathy, was intubated for airway protection and also found to have acute cystitis. #1 acute hepatic encephalopathy: Due to noncompliance, patient was not taking her lactulose and rifaximin over the last 2 days because of nausea and vomiting. CT scan brain showed no acute findings. Lactic acid was normal. Blood pressure was elevated, on mechanical ventilation currently. Plan: Admit to ICU, critical care monitoring, n.p.o., gentle IV fluids for hydration, maintain OG tube, lactulose through the OG tube every 6 hours, repeat CBC and CMP tomorrow morning as well as ammonia level, critical care consult, PT OT evaluation and treatment when appropriate. #2 acute respiratory failure: Patient was intubated for airway protection, [place] Coma Scale was 6 in the ER. Currently, she is on mechanical ventilation, on sedation with propofol. Plan to continue, consult critical care. #3 acute cystitis: Start IV Rocephin, urine culture, blood culture. #4 autoimmune otitis/liver cirrhosis: Plan as above, lactulose by OG tube, repeat ammonia level tomorrow morning, plan to resume rifaximin when patient can take p.o. #5 chronic pancytopenia: Due to O2 hepatitis and cirrhosis. Her hemoglobin, platelets and WBC are at her baseline. Plan to monitor. #6 hypertension: Blood pressure is elevated, plan to start IV hydralazine as needed, resume home p.o. meds when patient is able to take p.o. #7 type 2 diabetes mellitus: N.p.o., Accu-Cheks every 6 hours, sliding scale, resume home doses of insulin when home medication list updated. #8 DVT prophylaxis: No chemical prophylaxis because of chronic thrombocytopenia. This note was generated with [employer] dictation software. It may contain incorrect words, spelling, and punctuation that were not noted in checking the note before signing. Charges/Coding Visit Charges Inpatient E&M: 27274 Init Hosp L3
[2021-05-08] MEDS: 0.9% Normal Saline 1,000 ML 250 ML IV (15:13)
[2021-05-08] MEDS: Lactulose 20 GM/30 ML UDC PO (15:13)
[2021-05-08 15:50] LABS: Allen Test Positive; Base Excess -3 mmol/L (-2 to +2); Bicarbonate 21.3 mmol/L (22-26); Blood Gas Specimen Type ART; FI02 30; Mode AC; O2 Delivery Device ET Tube; PEEP 5; PO2 97 mmHG (75-100); RR 14; SITE L Radial; SO2 98 % (95-99); Total Carbon Dioxide 22 mmol/L; Vt 450; pCO2 31.8 mmHg (35-45); pH 7.43 (7.35-7.45)
--- NOTE | 2021-05-08 16:15 | EX.PCM.CONCC ---
Assessment & Plan Assessment/Plan (1) Acute hepatic encephalopathy: (2) UTI (urinary tract infection): (3) Autoimmune hepatitis: (4) Pancytopenia: (5) Diabetes mellitus, type 2: (6) Hypertension: PLAN: RECOMMENDATIONS: 1. Continue mechanical ventilation. Spontaneous breathing and awakening trials as per protocol 2. Add rifaximin to lactulose 3. Agree with empiric antibiotics pending panculture 4. Continue sedation. Add fentanyl if necessary 5. Possibly initiate tube feeds tomorrow pending response to lactulose and rifaximin IMPRESSIONS: 1. Acute respiratory failure secondary to hepatic encephalopathy Patient with significantly elevated ammonia level, likely leading to GCS of 6. Patient intubated for airway protection. Patient does have significant rhonchi on exam, so an element of aspiration would be a concern. Sputum culture is currently pending. We will continue with full mechanical ventilation with spontaneous breathing trials per protocol. Patient has been initiated on lactulose. Anticipate improvement in coma with treatment of ammonia. 2. Acute cystitis Patient's UA is suggestive of an acute infectious etiology. Cultures have been sent. We will continue to monitor renal function. No indication for renal replacement therapy at this time. This may be the etiology of patient's underlying nausea 3. Autoimmune hepatitis/cirrhosis/chronic pancytopenia/hypertension/type 2 diabetes mellitus Complicates care, management, recovery and prognosis. We will hold on antihypertensive medications for now. Sliding scale insulin would be appropriate for diabetes. May need to initiate basal insulin if tube feeds are initiated. We will have to watch for hypoglycemia given liver dysfunction. TIME: 35 minutes critical care time spent addressing patient's acute respiratory failure, hepatic encephalopathy, acute cystitis, diabetes mellitus, review of all data and collaboration with care team (2:30 PM to 4:30 PM) HPI Consult Data Date of Consult: 05/08/21 HPI Narrative HPI Narrative: ANA GARCÍA is a 50 F, with past medical history listed below, who presents to [facility] on 05/08/2021 secondary to altered mental status. Patient reportedly has had vomiting over the last 3 days and was not able to take her lactulose as previously prescribed. Patient takes lactulose routinely secondary to autoimmune hepatitis. Patient reportedly had attempted to get her to the car to take her to the hospital, but she was too lethargic, so EMS was consulted. In the ER, patient was afebrile, but hypertensive at 157/81. Patient was saturating well on room air. ER staff noted patient had a GCS of 6. Laboratory work-up showed a leukopenia of 2.6, with BUN of 21 and creatinine of 1.34. Glucose was elevated at 280, but anion gap was closed. Liver enzymes were unremarkable. Alcohol and drug testing were negative. INR was slightly elevated at 1.3 and UA was suggestive of UTI. Patient did have an ammonia level of 179. Given patient's GCS, patient was intubated for airway protection and to facilitate lactulose therapy. Patient was then transferred to the intensive care unit for further evaluation. Since being in the intensive care unit, patient is hemodynamically stable. Patient does have intermittent coughing and gagging on the endotracheal tube, but is not opening her eyes or making purposeful movements at this time. Unable to obtain a review of systems secondary to mental status. No family is available to provide additional information. COUNTS INCLUDE 234 BEDS AT THE [facility] Medical History (Updated 05/08/21 @ 15:[address] Herman Galloway MD) Anemia Autoimmune hepatitis Bacteremia due to methicillin resistant Staphylococcus epidermidis Bipolar disorder Chronic pain Cirrhosis of liver Depression Diabetes mellitus Encephalopathy acute Essential (primary) hypertension Reilly's thyroiditis Hepatic encephalopathy Hepatitis Kidney disease MRSA bacteremia Pancreatitis Pancytopenia Peripheral neuropathy Schizoaffective disorder Severe sepsis Splenomegaly Home Medications magnesium oxide 400 mg PO BID 03/14/17 [History Last Taken 03/19/21] Xifaxan 550 mg PO BID 11/04/17 [History Last Taken 03/19/21] Latuda 40 mg PO QHS 03/20/21 [History Last Taken 03/19/21] pantoprazole 40 mg PO DAILY 03/20/21 [History Last Taken 03/19/21] prednisolone acetate 1 drp OPHTHALMIC (EYE) 4X/DAY 03/20/21 [History Last Taken Unknown] sertraline 50 mg PO DAILY 03/20/21 [History Last Taken 03/19/21] sucralfate [Carafate] 1 g PO ACHS 03/20/21 [History Last Taken 03/19/21] lisinopril 5 mg PO DAILY #30 tab 03/22/21 [Rx Last Taken Unknown] carvedilol 25 mg tablet 25 mg PO BID #180 tab 04/25/21 [Rx Last Taken Unknown] insulin lispro 100 unit/mL subcutaneous pen 8 unit SUBCUT TID 04/25/21 [History Last Taken Unknown] pregabalin 50 mg capsule 50 mg PO BID 04/25/21 [History Last Taken Unknown] ursodiol 300 mg capsule 300 mg PO BID 04/25/21 [History Last Taken Unknown] carbamazepine 100 mg PO BID 04/29/21 [History Last Taken Unknown] amlodipine 5 mg PO DAILY 05/08/21 [History Last Taken Unknown] ketorolac 1 drp EACH EYE 4X/DAY 05/08/21 [History Last Taken Unknown] lidocaine 1 applic TOPICAL DAILY 05/08/21 [History Last Taken Unknown] spironolactone 50 mg PO DAILY 05/08/21 [History Last Taken Unknown] zinc gluconate 50 mg PO DAILY 05/08/21 [History Last Taken Unknown] Allergy/AdvReac Type Severity Reaction Status Date / Time adhesive Allergy Rash Verified 05/08/21 12:21 escitalopram oxalate Allergy blindness Verified 05/08/21 12:21 [From Lexapro] gabapentin [From Neurontin] Allergy Alan Verified 05/08/21 12:21 Jez's Syndrome lamotrigine [From Lamictal] Allergy Blindness Verified 05/08/21 12:21 Preservatives Allergy passed Uncoded 05/08/21 12:21 out, lungs deflated sour cream Allergy Anaphylaxis Uncoded 05/08/21 12:21 Family History Father CVA (cerebral vascular accident) Myocardial infarction Grandmother CHF (congestive heart failure) Sister Hypertension Surgical History H/O: hysterectomy History of abdominal paracentesis (10/2019) History of appendectomy History of cholecystectomy S/P TIPS (transjugular intrahepatic portosystemic shunt) Social History Smoking Status: Never smoker substance use type: does not use ROS Review of Systems ROS Unobtainable: due to encephalopathy and due to endotracheal tube Physical Exam Const Constitutional Narrative: Good vent synchrony noted General Appearance: patient mechanically ventilated; Negative for in distress Orientation / Consciousness: obtunded HEENT normocephalic and head/scalp atraumatic; Negative for moist oral mucous membranes Eyes PERRL, EOMs intact bilaterally, conjunctivae normal and no scleral icterus Neck full ROM Lymph Lymphatic: no lymphadenopathy noted Resp normal respiratory effort and no use of accessory muscles Resp Narrative: Thin clear to white secretions Effort and Inspection: able to speak in complete sentences Auscultation: rhonchi; Negative for rales or wheezes Cardio S1 normal heart sound, S2 normal heart sound, no murmurs, no rub, no gallops and no JVD GI soft to palpation and non-tender Inspection: abdominal distention Palpation: Negative for tender, guarding or rigid Extremity no clubbing, cyanosis or edema Skin no rashes or lesions noted Neuro Sensorium / Orientation: sedated on vent Psych cooperative Mood & Affect: flat affect Lab / Micro Data Result Diagrams: 05/08/21 12:35 05/08/21 12:35 Labs: Laboratory Results - last 24 hr 05/08/21 05/08/21 05/08/21 12:35 12:35 12:35 WBC 2.6 L RBC 3.03 L Hgb 9.1 L Hct 26.2 L MCV 86.5 MCH 30.0 MCHC 34.7 RDW Std Deviation 41.9 RDW Coeff of Valentina 13.4 Plt Count 77 L MPV 10.6 Immature Gran % (Auto) 0.000 Neut % (Auto) 65.1 Lymph % (Auto) 20.5 [place] % (Auto) 9.5 Eos % (Auto) 3.8 Baso % (Auto) 1.1 H Absolute Neuts (auto) 1.7 L Absolute Lymphs (auto) 0.54 L Nucleated RBC % 0 Diff Path Review May foll Platelet Estimate MOD DEC Microcytosis 2+ PT INR APTT Sodium 141 Potassium 4.0 Chloride 106 Carbon Dioxide 26.0 Anion Gap 9 BUN 21 H Creatinine 1.34 H Estim Creat Clear Calc 51.32 Est GFR (MDRD) Af Amer 53 L Est GFR (MDRD) Non-Af 44 L BUN/Creatinine Ratio 15.7 Glucose 280 H Lactic Acid Calcium 8.6 Total Bilirubin 0.80 AST 29 ALT 25 Alkaline Phosphatase 159 H Ammonia Total Protein 7.3 Albumin 3.1 L Globulin 4.2 Albumin/Globulin Ratio 0.7 L Lipase 157 Urine Color Urine Clarity Urine pH Ur Specific [place] Urine Protein Urine Glucose (UA) Urine Ketones Urine Occult Blood Urine Nitrite Urine Bilirubin Urine Urobilinogen Ur Leukocyte Esterase Urine RBC Urine WBC Ur Squamous Epith Cells Urine Bacteria Urine Mucus Urine Opiates Screen Urine Methadone Screen Ur Barbiturates Screen Ur Phencyclidine Scrn Ur Amphetamines Screen U Methamphetamin-MDMA U Benzodiazepines Scrn Urine Cocaine Screen U Cannabinoids Screen Ur Drug Screen Comment Ethyl Alcohol < 3.0 05/08/21 05/08/21 05/08/21 13:12 13:12 13:20 WBC RBC Hgb Hct MCV MCH MCHC RDW Std Deviation RDW Coeff of Valentina Plt Count MPV Immature Gran % (Auto) Neut % (Auto) Lymph % (Auto) [place] % (Auto) Eos % (Auto) Baso % (Auto) Absolute Neuts (auto) Absolute Lymphs (auto) Nucleated RBC % Diff Path Review Platelet Estimate Microcytosis PT 15.1 H INR 1.3 APTT 28.6 Sodium Potassium Chloride Carbon Dioxide Anion Gap BUN Creatinine Estim Creat Clear Calc Est GFR (MDRD) Af Amer Est GFR (MDRD) Non-Af BUN/Creatinine Ratio Glucose Lactic Acid Calcium Total Bilirubin AST ALT Alkaline Phosphatase Ammonia Total Protein Albumin Globulin Albumin/Globulin Ratio Lipase Urine Color Yellow Urine Clarity Cloudy Urine pH 6.0 Ur Specific [place] 1.015 Urine Protein 30 H Urine Glucose (UA) 1000 H Urine Ketones 5 H Urine Occult Blood 25 H Urine Nitrite Positive H Urine Bilirubin Negative Urine Urobilinogen 1 H Ur Leukocyte Esterase 500 H Urine RBC 0-5 SEEN Urine WBC 25-50 SEEN Ur Squamous Epith Cells 5-10 SEEN Urine Bacteria 3+ Urine Mucus 0 SEEN Urine Opiates Screen NEGATIVE Urine Methadone Screen NEGATIVE Ur Barbiturates Screen NEGATIVE Ur Phencyclidine Scrn NEGATIVE Ur Amphetamines Screen NEGATIVE U Methamphetamin-MDMA NEGATIVE U Benzodiazepines Scrn NEGATIVE Urine Cocaine Screen NEGATIVE U Cannabinoids Screen NEGATIVE Ur Drug Screen Comment Ethyl Alcohol 05/08/21 05/08/21 13:20 13:35 WBC RBC Hgb Hct MCV MCH MCHC RDW Std Deviation RDW Coeff of Valentina Plt Count MPV Immature Gran % (Auto) Neut % (Auto) Lymph % (Auto) [place] % (Auto) Eos % (Auto) Baso % (Auto) Absolute Neuts (auto) Absolute Lymphs (auto) Nucleated RBC % Diff Path Review Platelet Estimate Microcytosis PT INR APTT Sodium Potassium Chloride Carbon Dioxide Anion Gap BUN Creatinine Estim Creat Clear Calc Est GFR (MDRD) Af Amer Est GFR (MDRD) Non-Af BUN/Creatinine Ratio Glucose Lactic Acid 1.6 Calcium Total Bilirubin AST ALT Alkaline Phosphatase Ammonia 179.0 H Total Protein Albumin Globulin Albumin/Globulin Ratio Lipase Urine Color Urine Clarity Urine pH Ur Specific [place] Urine Protein Urine Glucose (UA) Urine Ketones Urine Occult Blood Urine Nitrite Urine Bilirubin Urine Urobilinogen Ur Leukocyte Esterase Urine RBC Urine WBC Ur Squamous Epith Cells Urine Bacteria Urine Mucus Urine Opiates Screen Urine Methadone Screen Ur Barbiturates Screen Ur Phencyclidine Scrn Ur Amphetamines Screen U Methamphetamin-MDMA U Benzodiazepines Scrn Urine Cocaine Screen U Cannabinoids Screen Ur Drug Screen Comment Ethyl Alcohol ABG Data ABG results: ABG 05/08/21 15:46 Specimen Type ART Sample Site L Radial pH 7.43 Bicarbonate Actual 21.3 L Total CO2 22 Base Excess -3 L O2 Saturation 98 O2 % 30 ABG pCO2 31.8 L ABG pO2 97 Daniel Test Positive Respiration Rate 14 O2 Delivery Device ET Tube Vent Mode AC Tidal Volume 450 POC PEEP [address] 05/08/21 12:46 IMPRESSION: Normal unenhanced CT scan of the brain. Electronically Signed: Akin Cristobal, at 13:11 EDT Tel , Service support , Chest X-Ray 05/08/21 14:19 IMPRESSION: Consolidation left lower lobe. Electronically Signed: Akin Cristobal, at 14:37 EDT Tel , Service support , Charges/Coding Procedures Hospitalists Procedures: [id number] Critial Care 1st Hr
[2021-05-08] MEDS: 0.9% Normal Saline 1,000 ML 75 ML IV ×2 (17:06→23:39)
[2021-05-08] MEDS: Lactulose 20 GM/30 ML UDC NG ×2 (17:15→23:33)
[2021-05-08 17:20] LABS: Bedside Glucose 284 mg/dL (70-110)
[2021-05-08] MEDS: Insulin Lispro 100 UNIT/ML INSULN.PEN 8 UNIT SC (17:21)
[2021-05-08] MEDS: Insulin Lispro 100 UNIT/ML INSULN.PEN SC ×2 (17:21→23:34)
[2021-05-08 18:06] LABS: Phosphorus 3.9 mg/dL (2.5-4.9)
[2021-05-08] MEDS: rifAXIMin 550 MG Tablet 275 MG GT ×2 (18:07→21:41)
[2021-05-08] MEDS: Chlorhexidine 15 ML PO (21:33)
[2021-05-08] MEDS: Carvedilol 25 MG Tablet NG (21:35)
[2021-05-08] MEDS: carBAMazepine 200 MG/10 ML UDC 100 MG NG (21:37)
[2021-05-08] MEDS: Propofol 10MG/Ml 1,000 MG/100 ML Bottle 2.5 MG CONT INF (22:00)
[2021-05-09] VITALS (32 sets, daily range): BP systolic 94–171; BP diastolic 40–70; PULSE 59–98; RESP 14–18; TEMP 36.9–37.6; O2SAT 96–100; BMI 27.2
[2021-05-09 03:30] LABS: Absolute Lymphocyte Count 0.57 X10^3/uL (0.83-4.51); Absolute Neutrophil Count 2.6 X10^3/uL (2.0-7.7); Basophil# 0.05 X10^3/uL; Basophil% 1.3 % (0-1); Eosinophils% 2.7 % (0-5); Hematocrit 25.2 % (37-47); Hemoglobin 8.8 g/dL (12.0-15.0); Lymphocyte # 0.57 X10^3/ul (0.83-4.51); Lymphocyte % 15.4 % (19-41); Mean Corp Hgb Conc 34.9 g/dL (32-36); Mean Corpuscular Hgb 30.2 pg (27.0-32.0); Mean Corpuscular Volume 86.6 fL (81-99); Mean Platelet Vol. 11.9 fl (6.2-12.0); Monocyte# 0.41 X10^3/uL; Monocyte% 11.1 % (0-10); NRBC Flagged by Analyzer 0 % (0-5); Neutrophil # 2.57 X10^3/uL (2.7-7.7); Neutrophil % 69.2 % (47-70); POSITIVE COUNT YES; POSITIVE DIFFERENTIAL YES; Platelet Count 68 K/mm3 (150-450); RBC Distribution Width CV 13.5 % (11.6-14.6); RBC Distribution Width SD 42.4 fl (35.1-43.9); Red Blood Count 2.91 M/mm3 (4.2-5.4); White Blood Count 3.7 K/mm3 (4.4-11.0)
[2021-05-09 03:32] LABS: Differential Indicated SCAN CRITERIA MET
[2021-05-09 03:44] LABS: Differential Comment SCANNED
[2021-05-09 03:45] LABS: Anisocytosis 1+; Microcytosis 1+
[2021-05-09 03:46] LABS: Platelet Estimate MOD DEC (ADEQ)
[2021-05-09 03:51] LABS: ALB/GLOB Ratio 0.7 RATIO (0.9-2.4); AST(SGOT) 34 U/L (15-37); Alanine Aminotransfer ALT/SGPT 23 U/L (13-56); Albumin, Serum 2.6 g/dL (3.2-5.0); Alkaline Phosphatase 130 U/L (45-117); Anion Gap 6 (5-15); BUN 22 mg/dL (7-18); BUN/Creat Ratio 18.8 RATIO (10-20); Calcium,Total 7.9 mg/dL (8.5-10.1); Chloride 110 mmol/L (98-107); Creatinine, Serum 1.17 mg/dL (0.55-1.02); EST Glomerular Filtration Rate 52 mL/min (>60); Est Glom Filt Rate - Afr Amer 62 mL/min (>60); Estimated Creatinine Clearance 56.74 ml/min; Globulin 3.8 g/dL (2.2-4.2); Glucose 174 mg/dL (74-106); Potassium 3.6 mmol/L (3.5-5.1); Protein, Total 6.4 g/dL (6.4-8.2); Sodium Level 140 mmol/L (136-145)
[2021-05-09] MEDS: rifAXIMin 550 MG Tablet 275 MG GT ×3 (05:19→22:30)
[2021-05-09] MEDS: Lactulose 20 GM/30 ML UDC NG ×3 (05:19→19:10)
--- NOTE | 2021-05-09 07:03 | PN.CC_ITS ---
Assessment & Plan Assessment/Plan (1) Acute hepatic encephalopathy: (2) UTI (urinary tract infection): (3) Autoimmune hepatitis: (4) Pancytopenia: (5) Diabetes mellitus, type 2: (6) Hypertension: PLAN: RECOMMENDATIONS: 1. Continue mechanical ventilation. Spontaneous breathing and awakening trials as per protocol. No ABG needed 2. Continue rifaximin to lactulose 3. Agree with empiric antibiotics pending panculture 4. Continue sedation. Add fentanyl if necessary 5. Okay to initiate tube feeds from my perspective 6. Hold morning insulin dosing, but can resume once tube feeds initiated IMPRESSIONS: 1. Acute respiratory failure secondary to hepatic encephalopathy Patient with significantly elevated ammonia level, likely leading to GCS of 6. Patient intubated for airway protection. Lung exam is much improved compared to yesterday. Patient's oxygen status is also improved. However, patient will remain intubated secondary to marginal mental status and concerns for ability to continue with lactulose and rifaximin. Can initiate tube feeds and DC IV fluids. 2. Acute cystitis Patient's UA is suggestive of an acute infectious etiology. Cultures have been sent. We will continue to monitor renal function. No indication for renal replacement therapy at this time. This may be the etiology of patient's underlying nausea 3. Autoimmune hepatitis/cirrhosis/chronic pancytopenia/hypertension/type 2 diabetes mellitus Complicates care, management, recovery and prognosis. We will hold on antihypertensive medications for now. Sliding scale insulin would be appropriate for diabetes. We will have to watch for hypoglycemia given liver dysfunction. TIME: 32 minutes critical care time spent addressing patient's acute respiratory failure, hepatic encephalopathy, acute cystitis, diabetes mellitus, review of all data and collaboration with care team (5:30 AM to 6:30 AM) Subjective Subjective Patient did well overnight. No hemodynamic instability was reported. Patient was noticed to have more spontaneous movement. The patient was able to follow some simple commands for brief periods of time. Patient did have a spontaneous breathing trial this morning, but was not extubated secondary to mental status. Objective Data Objective Data Vital Signs: Vital Signs Temp Pulse Resp BP Pulse Ox 37.4 C H 83 26 H 132/71 H 98 05/09/21 07:00 05/09/21 07:00 05/09/21 07:00 05/09/21 07:00 05/09/21 07:00 Oxygen Flow Rate (L/min) 3 Oxygen Delivery Method Nasal Cannula Weight: 83.5 kg Body Mass Index (BMI) 26.7 Intake & Output: Intake and Output for Last 24 Hours 05/07/21 05/08/21 05/09/21 23:59 23:59 23:59 Intake Total 2258.09 / 2410.59 813.75 / 813.75 Output Total 1000 / 1150 500 / 500 Balance 1258.09 / 1260.59 313.75 / 313.75 Lab / Micro Data Result Diagrams: 05/09/21 03:20 05/09/21 03:20 Labs: Laboratory Results - last 24 hr 05/08/21 05/08/21 05/08/21 12:35 12:35 12:35 WBC 2.6 L RBC 3.03 L Hgb 9.1 L Hct 26.2 L MCV 86.5 MCH 30.0 MCHC 34.7 RDW Std Deviation 41.9 RDW Coeff of Valentina 13.4 Plt Count 77 L MPV 10.6 Immature Gran % (Auto) 0.000 Neut % (Auto) 65.1 Lymph % (Auto) 20.5 [place] % (Auto) 9.5 Eos % (Auto) 3.8 Baso % (Auto) 1.1 H Absolute Neuts (auto) 1.7 L Absolute Lymphs (auto) 0.54 L Nucleated RBC % 0 Differential Comment Diff Path Review May foll Platelet Estimate MOD DEC Anisocytosis Microcytosis 2+ PT INR APTT Sodium 141 Potassium 4.0 Chloride 106 Carbon Dioxide 26.0 Anion Gap 9 BUN 21 H Creatinine 1.34 H Estim Creat Clear Calc 51.32 Est GFR (MDRD) Af Amer 53 L Est GFR (MDRD) Non-Af 44 L BUN/Creatinine Ratio 15.7 Glucose 280 H Lactic Acid Calcium 8.6 Phosphorus Magnesium Total Bilirubin 0.80 AST 29 ALT 25 Alkaline Phosphatase 159 H Ammonia Total Protein 7.3 Albumin 3.1 L Globulin 4.2 Albumin/Globulin Ratio 0.7 L Lipase 157 Urine Color Urine Clarity Urine pH Ur Specific [place] Urine Protein Urine Glucose (UA) Urine Ketones Urine Occult Blood Urine Nitrite Urine Bilirubin Urine Urobilinogen Ur Leukocyte Esterase Urine RBC Urine WBC Ur Squamous Epith Cells Urine Bacteria Urine Mucus Urine Opiates Screen Urine Methadone Screen Ur Barbiturates Screen Ur Phencyclidine Scrn Ur Amphetamines Screen U Methamphetamin-MDMA U Benzodiazepines Scrn Urine Cocaine Screen U Cannabinoids Screen Ur Drug Screen Comment Ethyl Alcohol < 3.0 POC Glucose 05/08/21 05/08/21 05/08/21 12:35 13:12 13:12 WBC RBC Hgb Hct MCV MCH MCHC RDW Std Deviation RDW Coeff of Valentina Plt Count MPV Immature Gran % (Auto) Neut % (Auto) Lymph % (Auto) [place] % (Auto) Eos % (Auto) Baso % (Auto) Absolute Neuts (auto) Absolute Lymphs (auto) Nucleated RBC % Differential Comment Diff Path Review Platelet Estimate Anisocytosis Microcytosis PT INR APTT Sodium Potassium Chloride Carbon Dioxide Anion Gap BUN Creatinine Estim Creat Clear Calc Est GFR (MDRD) Af Amer Est GFR (MDRD) Non-Af BUN/Creatinine Ratio Glucose Lactic Acid Calcium Phosphorus 3.9 Magnesium 2.0 Total Bilirubin AST ALT Alkaline Phosphatase Ammonia Total Protein Albumin Globulin Albumin/Globulin Ratio Lipase Urine Color Yellow Urine Clarity Cloudy Urine pH 6.0 Ur Specific [place] 1.015 Urine Protein 30 H Urine Glucose (UA) 1000 H Urine Ketones 5 H Urine Occult Blood 25 H Urine Nitrite Positive H Urine Bilirubin Negative Urine Urobilinogen 1 H Ur Leukocyte Esterase 500 H Urine RBC 0-5 SEEN Urine WBC 25-50 SEEN Ur Squamous Epith Cells 5-10 SEEN Urine Bacteria 3+ Urine Mucus 0 SEEN Urine Opiates Screen NEGATIVE Urine Methadone Screen NEGATIVE Ur Barbiturates Screen NEGATIVE Ur Phencyclidine Scrn NEGATIVE Ur Amphetamines Screen NEGATIVE U Methamphetamin-MDMA NEGATIVE U Benzodiazepines Scrn NEGATIVE Urine Cocaine Screen NEGATIVE U Cannabinoids Screen NEGATIVE Ur Drug Screen Comment Ethyl Alcohol POC Glucose 05/08/21 05/08/21 05/08/21 13:20 13:20 13:35 WBC RBC Hgb Hct MCV MCH MCHC RDW Std Deviation RDW Coeff of Valentina Plt Count MPV Immature Gran % (Auto) Neut % (Auto) Lymph % (Auto) [place] % (Auto) Eos % (Auto) Baso % (Auto) Absolute Neuts (auto) Absolute Lymphs (auto) Nucleated RBC % Differential Comment Diff Path Review Platelet Estimate Anisocytosis Microcytosis PT 15.1 H INR 1.3 APTT 28.6 Sodium Potassium Chloride Carbon Dioxide Anion Gap BUN Creatinine Estim Creat Clear Calc Est GFR (MDRD) Af Amer Est GFR (MDRD) Non-Af BUN/Creatinine Ratio Glucose Lactic Acid 1.6 Calcium Phosphorus Magnesium Total Bilirubin AST ALT Alkaline Phosphatase Ammonia 179.0 H Total Protein Albumin Globulin Albumin/Globulin Ratio Lipase Urine Color Urine Clarity Urine pH Ur Specific [place] Urine Protein Urine Glucose (UA) Urine Ketones Urine Occult Blood Urine Nitrite Urine Bilirubin Urine Urobilinogen Ur Leukocyte Esterase Urine RBC Urine WBC Ur Squamous Epith Cells Urine Bacteria Urine Mucus Urine Opiates Screen Urine Methadone Screen Ur Barbiturates Screen Ur Phencyclidine Scrn Ur Amphetamines Screen U Methamphetamin-MDMA U Benzodiazepines Scrn Urine Cocaine Screen U Cannabinoids Screen Ur Drug Screen Comment Ethyl Alcohol POC Glucose 05/08/21 05/09/21 05/09/21 17:14 03:20 03:20 WBC 3.7 L RBC 2.91 L Hgb 8.8 L Hct 25.2 L MCV 86.6 MCH 30.2 MCHC 34.9 RDW Std Deviation 42.4 RDW Coeff of Valentina 13.5 Plt Count 68 L MPV 11.9 Immature Gran % (Auto) 0.300 Neut % (Auto) 69.2 Lymph % (Auto) 15.4 L [place] % (Auto) 11.1 H Eos % (Auto) 2.7 Baso % (Auto) 1.3 H Absolute Neuts (auto) 2.6 Absolute Lymphs (auto) 0.57 L Nucleated RBC % 0 Differential Comment SCANNED Diff Path Review May foll Platelet Estimate MOD DEC Anisocytosis 1+ Microcytosis 1+ PT INR APTT Sodium 140 Potassium 3.6 Chloride 110 H Carbon Dioxide 24.0 Anion Gap 6 BUN 22 H Creatinine 1.17 H Estim Creat Clear Calc 56.74 Est GFR (MDRD) Af Amer 62 Est GFR (MDRD) Non-Af 52 L BUN/Creatinine Ratio 18.8 Glucose 174 H Lactic Acid Calcium 7.9 L Phosphorus Magnesium Total Bilirubin 0.90 AST 34 ALT 23 Alkaline Phosphatase 130 H Ammonia Total Protein 6.4 Albumin 2.6 L Globulin 3.8 Albumin/Globulin Ratio 0.7 L Lipase Urine Color Urine Clarity Urine pH Ur Specific [place] Urine Protein Urine Glucose (UA) Urine Ketones Urine Occult Blood Urine Nitrite Urine Bilirubin Urine Urobilinogen Ur Leukocyte Esterase Urine RBC Urine WBC Ur Squamous Epith Cells Urine Bacteria Urine Mucus Urine Opiates Screen Urine Methadone Screen Ur Barbiturates Screen Ur Phencyclidine Scrn Ur Amphetamines Screen U Methamphetamin-MDMA U Benzodiazepines Scrn Urine Cocaine Screen U Cannabinoids Screen Ur Drug Screen Comment Ethyl Alcohol POC Glucose 284 H 05/09/21 03:20 WBC RBC Hgb Hct MCV MCH MCHC RDW Std Deviation RDW Coeff of Valentina Plt Count MPV Immature Gran % (Auto) Neut % (Auto) Lymph % (Auto) [place] % (Auto) Eos % (Auto) Baso % (Auto) Absolute Neuts (auto) Absolute Lymphs (auto) Nucleated RBC % Differential Comment Diff Path Review Platelet Estimate Anisocytosis Microcytosis PT INR APTT Sodium Potassium Chloride Carbon Dioxide Anion Gap BUN Creatinine Estim Creat Clear Calc Est GFR (MDRD) Af Amer Est GFR (MDRD) Non-Af BUN/Creatinine Ratio Glucose Lactic Acid Calcium Phosphorus Magnesium Total Bilirubin AST ALT Alkaline Phosphatase Ammonia 100.0 H Total Protein Albumin Globulin Albumin/Globulin Ratio Lipase Urine Color Urine Clarity Urine pH Ur Specific [place] Urine Protein Urine Glucose (UA) Urine Ketones Urine Occult Blood Urine Nitrite Urine Bilirubin Urine Urobilinogen Ur Leukocyte Esterase Urine RBC Urine WBC Ur Squamous Epith Cells Urine Bacteria Urine Mucus Urine Opiates Screen Urine Methadone Screen Ur Barbiturates Screen Ur Phencyclidine Scrn Ur Amphetamines Screen U Methamphetamin-MDMA U Benzodiazepines Scrn Urine Cocaine Screen U Cannabinoids Screen Ur Drug Screen Comment Ethyl Alcohol POC Glucose ABG Data ABG results: ABG 05/08/21 15:46 Specimen Type ART Sample Site L Radial pH 7.43 Bicarbonate Actual 21.3 L Total CO2 22 Base Excess -3 L O2 Saturation 98 O2 % 30 ABG pCO2 31.8 L ABG pO2 97 Daniel Test Positive Respiration Rate 14 O2 Delivery Device ET Tube Vent Mode AC Tidal Volume 450 POC PEEP 5 Radiography Diagnostic Testing: Radiology Impression Brain CT 05/08/21 12:46 IMPRESSION: Normal unenhanced CT scan of the brain. Electronically Signed: Akin Cristobal, at 13:11 EDT Tel , Service support , Chest X-Ray 05/08/21 14:19 IMPRESSION: Consolidation left lower lobe. Electronically Signed: Akin Cristobal, at 14:37 EDT Tel , Service support , Physical Exam Const Constitutional Narrative: Good vent synchrony noted General Appearance: patient mechanically ventilated; Negative for in distress Orientation / Consciousness: lethargic HEENT normocephalic and head/scalp atraumatic; Negative for moist oral mucous membranes Eyes PERRL, EOMs intact bilaterally, conjunctivae normal and no scleral icterus Neck full ROM Lymph Lymphatic: no lymphadenopathy noted Resp normal respiratory effort and no use of accessory muscles Resp Narrative: Decreased thin clear to white secretions Effort and Inspection: able to speak in complete sentences Auscultation: rhonchi; Negative for rales or wheezes Cardio S1 normal heart sound, S2 normal heart sound, no murmurs, no rub, no gallops and no JVD GI soft to palpation and non-tender Inspection: abdominal distention Palpation: Negative for tender, guarding or rigid Extremity no clubbing, cyanosis or edema Skin no rashes or lesions noted Neuro Sensorium / Orientation: sedated on vent Psych cooperative Mood & Affect: flat affect Charges/Coding Procedures Hospitalists Procedures: [id number] Critial Care 1st Hr
[2021-05-09 08:38] LABS: Bedside Glucose 159 mg/dL (70-110)
[2021-05-09 08:38] LABS: Base Excess -3 mmol/L (-2 to +2); Bicarbonate 21.1 mmol/L (22-26); Blood Gas Specimen Type ART; FI02 21; Mode CPAP/PS; O2 Delivery Device Adult Vent; PEEP 5; PO2 82 mmHG (75-100); PS 5; SITE L Brach; SO2 97 % (95-99); Total Carbon Dioxide 22 mmol/L; pCO2 31.6 mmHg (35-45); pH 7.43 (7.35-7.45)
[2021-05-09 08:38] LABS: Bedside Glucose 150 mg/dL (70-110)
--- NOTE | 2021-05-09 09:45 | CASEMGMT ---
RN CM participated in ICU interdisciplinary rounds. Patient remains on vent at FiO2 @ 21%. RN CM assessment deferred at this time due to patient being on vent. CM will assess patient at later time.
--- NOTE | 2021-05-09 10:04 | EX.NTREPO ---
Medical Nutrition Therapy - History Nutrition Services has been consulted to:: Manage nutrient details of diet order, Manage enteral nutrition Current diet/nutrition support order:: NPO - Anthropometric Measurements Height:: 5 ft 8.9 in Weight:: 83.5 kg Body Mass Index (BMI):: 27.2 - Relevant Labs Relevant Labs:: WBC 3.7 K/mm3 (4.4-11.0) L 05/09/21 03:20 RBC 2.91 M/mm3 (4.2-5.4) L 05/09/21 03:20 Hgb 8.8 g/dL (12.0-15.0) L 05/09/21 03:20 Hct 25.2 % (37-47) L 05/09/21 03:20 Plt Count 68 K/mm3 (150-450) L 05/09/21 03:20 Lymph % (Auto) 15.4 % (19-41) L 05/09/21 03:20 [place] % (Auto) 11.1 % (0-10) H 05/09/21 03:20 Baso % (Auto) 1.3 % (0-1) H 05/09/21 03:20 Absolute Neuts (auto) 1.7 X10^3/uL (2.0-7.7) L 05/08/21 12:35 Absolute Lymphs (auto) 0.57 X10^3/uL (0.83-4.51) L 05/09/21 03:20 PT 15.1 SECONDS (11.7-14.9) H 05/08/21 13:20 Chloride 110 mmol/L (98-107) H 05/09/21 03:20 BUN 22 mg/dL (7-18) H 05/09/21 03:20 Creatinine 1.17 mg/dL (0.55-1.02) H 05/09/21 03:20 Est GFR (MDRD) Af Amer 53 mL/min (>60) L 05/08/21 12:35 Est GFR (MDRD) Non-Af 52 mL/min (>60) L 05/09/21 03:20 Glucose 174 mg/dL (74-106) H 05/09/21 03:20 Calcium 7.9 mg/dL (8.5-10.1) L 05/09/21 03:20 Alkaline Phosphatase 130 U/L (45-117) H 05/09/21 03:20 Ammonia 100.0 umol/L (11-32) H 05/09/21 03:20 Albumin 2.6 g/dL (3.2-5.0) L 05/09/21 03:20 Albumin/Globulin Ratio 0.7 RATIO (0.9-2.4) L 05/09/21 03:20 - Assessment Food and Nutrient Intake: Currently intubated w/ OGT in place. 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 Suspected to be r/t UTI per rounds. Wt on 03/20/21 was 179.8# and CBW 184.1#. - Nutrition Diagnosis: Intake Problem Inadequate Oral Intake Intake Problem - Etiology: r/t mental status, mechanical intubation Intake Problem - Signs/Symptoms: as evidenced by no PO intake since admission Status: Active Problem - Protein Calorie Malnutrition Evidence of Malnutrition Exists: No - Nutrition Intervention Nutrition Prescription: [id number] calories/day (1.3xRMR). 100-125 g protein/day (1.2-1.5 g/kg). 2000mL fluid/day (25mL/kg) - Food / Nutrient Delivery Interventions Summary of nutrition intervention:: Order/adjust enteral nutrition Nutrition support ordered as / adjusted to:: Per rounds, okay for enteral nutrition support. Will order Vital AF 1.2 via OGT at goal rate of 65mL/hour w/ 100mL H2O flush every 4 hours to provide 1872 calories, 117g protein, and 1865 mL fluid/day. Would start at 25mL/hour and increase by 10mL every 8 hours as pt tolerates until goal rate is achieved. - MNT Monitoring Active Nutrition Patient: Yes Nutrition Status: Requires Follow Up in 1-2 Days
[2021-05-09 11:16] LABS: Bedside Glucose 176 mg/dL (70-110)
[2021-05-09 11:20] LABS: Pathologist Review Reviewed
[2021-05-09 11:22] LABS: Pathologist Review Reviewed
[2021-05-09] MEDS: Chlorhexidine 15 ML PO ×2 (12:34→22:32)
[2021-05-09] MEDS: carBAMazepine 200 MG/10 ML UDC 100 MG NG ×2 (12:36→22:29)
[2021-05-09] MEDS: Carvedilol 25 MG Tablet NG ×2 (12:36→22:30)
[2021-05-09] MEDS: Insulin Lispro 100 UNIT/ML INSULN.PEN SC ×2 (12:37→19:11)
[2021-05-09] MEDS: Ceftriaxone 1 GM/50 ML BAG IV (12:47)
[2021-05-09] MEDS: Vital AF 1.2 Cal Liquid 1,000 ML 65 ML GT (12:47)
--- NOTE | 2021-05-09 14:13 | CASEMGMT ---
Per notes patient had palliative consult done on 02/17/21. CM call [facility] and they saw patient on 02/22/21 and patient declined services at that time. Palliative screening tool completed for [facility]. Patient meets criteria for palliative consult. TAMIKO MELLO updated hospitalist and no referral at this time.
[2021-05-09 17:15] LABS: Bedside Glucose 248 mg/dL (70-110)
--- NOTE | 2021-05-09 17:54 | PCM.PN.HOSP ---
Subjective Subjective Intubated and sedated, she does open her eyes to verbal stimuli. Objective Data Objective Data Vital Signs: Vital Signs Temp Pulse Resp BP Pulse Ox 99.0 F 67 16 128/51 H 97 05/09/21 07:00 05/09/21 15:15 05/09/21 15:15 05/09/21 07:00 05/09/21 15:15 Oxygen Delivery Method Mechanical Ventilator Weight: 184 lb 1.376 oz Body Mass Index (BMI) 27.2 Intake & Output: Intake and Output for Last 24 Hours 05/08/21 05/09/21 05/10/21 03:59 03:59 03:59 Intake Total 2418.09 / 2420.59 653.75 / 653.75 Output Total 1150 / 1150 525 / 525 Balance 1268.09 / 1270.59 128.75 / 128.75 Lab / Micro Data Result Diagrams: 05/09/21 03:20 05/09/21 03:20 Labs: Laboratory Results - last 24 hr 05/08/21 05/08/21 05/08/21 12:35 12:35 23:17 WBC RBC Hgb Hct MCV MCH MCHC RDW Std Deviation RDW Coeff of Valentina Plt Count MPV Immature Gran % (Auto) Neut % (Auto) Lymph % (Auto) [place] % (Auto) Eos % (Auto) Baso % (Auto) Absolute Neuts (auto) Absolute Lymphs (auto) Nucleated RBC % Differential Comment Diff Path Review Reviewed Platelet Estimate Anisocytosis Microcytosis Sodium Potassium Chloride Carbon Dioxide Anion Gap BUN Creatinine Estim Creat Clear Calc Est GFR (MDRD) Af Amer Est GFR (MDRD) Non-Af BUN/Creatinine Ratio Glucose Calcium Phosphorus 3.9 Magnesium 2.0 Total Bilirubin AST ALT Alkaline Phosphatase Ammonia Total Protein Albumin Globulin Albumin/Globulin Ratio POC Glucose 150 H 05/09/21 05/09/21 05/09/21 03:20 03:20 03:20 WBC 3.7 L RBC 2.91 L Hgb 8.8 L Hct 25.2 L MCV 86.6 MCH 30.2 MCHC 34.9 RDW Std Deviation 42.4 RDW Coeff of Valentina 13.5 Plt Count 68 L MPV 11.9 Immature Gran % (Auto) 0.300 Neut % (Auto) 69.2 Lymph % (Auto) 15.4 L [place] % (Auto) 11.1 H Eos % (Auto) 2.7 Baso % (Auto) 1.3 H Absolute Neuts (auto) 2.6 Absolute Lymphs (auto) 0.57 L Nucleated RBC % 0 Differential Comment SCANNED Diff Path Review Reviewed Platelet Estimate MOD DEC Anisocytosis 1+ Microcytosis 1+ Sodium 140 Potassium 3.6 Chloride 110 H Carbon Dioxide 24.0 Anion Gap 6 BUN 22 H Creatinine 1.17 H Estim Creat Clear Calc 56.74 Est GFR (MDRD) Af Amer 62 Est GFR (MDRD) Non-Af 52 L BUN/Creatinine Ratio 18.8 Glucose 174 H Calcium 7.9 L Phosphorus Magnesium Total Bilirubin 0.90 AST 34 ALT 23 Alkaline Phosphatase 130 H Ammonia 100.0 H Total Protein 6.4 Albumin 2.6 L Globulin 3.8 Albumin/Globulin Ratio 0.7 L POC Glucose 05/09/21 05/09/21 05/09/21 05:12 10:50 17:12 WBC RBC Hgb Hct MCV MCH MCHC RDW Std Deviation RDW Coeff of Valentina Plt Count MPV Immature Gran % (Auto) Neut % (Auto) Lymph % (Auto) [place] % (Auto) Eos % (Auto) Baso % (Auto) Absolute Neuts (auto) Absolute Lymphs (auto) Nucleated RBC % Differential Comment Diff Path Review Platelet Estimate Anisocytosis Microcytosis Sodium Potassium Chloride Carbon Dioxide Anion Gap BUN Creatinine Estim Creat Clear Calc Est GFR (MDRD) Af Amer Est GFR (MDRD) Non-Af BUN/Creatinine Ratio Glucose Calcium Phosphorus Magnesium Total Bilirubin AST ALT Alkaline Phosphatase Ammonia Total Protein Albumin Globulin Albumin/Globulin Ratio POC Glucose 159 H 176 H 248 H Micro: Microbiology 05/08/21 Unknown Sputum, Induced/Lukens Gram Stain - Final 05/08/21 Unknown Sputum, Induced/Lukens Respiratory Culture - Preliminary Appears to be normal respiratory jose g. Further studies to follow. 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 General Appearance: intubated and patient mechanically ventilated HEENT normocephalic, moist oral mucous membranes and oropharynx normal Head and Scalp: normocephalic Mouth: dry mucous membranes Eyes PERRL Neck supple and no JVD Resp normal respiratory effort, no retractions, no use of accessory muscles and clear to auscultation bilaterally Resp Narrative: Diminished breath sounds bilateral, otherwise clear. Auscultation: Negative for crackles, rales, rhonchi or wheezes Cardio regular rate, regular rhythm, S1 normal heart sound, S2 normal heart sound and no murmurs GI soft to palpation, non-tender and non-distended; Negative for hepatosplenomegaly Extremity no clubbing, cyanosis or edema Skin no rashes or lesions noted Neuro Neuro Narrative: Unable to perform full neuro examination because patient is on mechanical ventilation. Sensorium / Orientation: sedated on vent RASS: -2 Meningeal Signs: no meningeal signs Psych Psych Narrative: Unable to assess. Appearance: intubated Assessment & Plan Assessment/Plan (1) Acute hepatic encephalopathy: (2) UTI (urinary tract infection): (3) Hypertension: (4) Diabetes mellitus, type 2: (5) Essential (primary) hypertension: (6) Pancytopenia: (7) Autoimmune hepatitis: PLAN: 1. Acute hepatic encephalopathy with acute respiratory failure with chronic pancytopenia and liver cirrhosis -Ammonia level on admission was 180, she was inserted on lactulose and Xifaxan -Ammonia is trending down -She did have a spontaneous breathing trial however mental status precluded extubation -We will perform daily spontaneous breathing trials and extubate when able -Her liver disease is secondary to autoimmune hepatitis 2. Acute cystitis -Urine culture is pending as are blood cultures -Continue with IV antibiotics 3. HTN -She will have as needed hydralazine available -We will continue with her Coreg, and can restart her Norvasc when taking p.o. -Hold lisinopril and Aldactone 4. DM2 -N.p.o., continue with Accu-Cheks every 6 hours -Sliding scale insulin -Can resume her home insulin when she is taking p.o. 5. Anxiety/depression -Resume her Zoloft when taking p.o. 6. GERD -Stable -Can continue with her PPI and Carafate on discharge DVT: SCD Charges/Coding Visit Charges Inpatient E&M: 52551 Subs Hosp L2
[2021-05-09] MEDS: CHLORHEXIDINE GLUC 2% CLOTH 1 EACH TOWELETTE TOPICAL (18:53)
[2021-05-09] MEDS: fentaNYL 100 MCG/2 ML Ampul 25 MCG IV ×2 (19:15→22:19)
[2021-05-09] MEDS: 0.9% Saline Lock 10 ML Syringe IV ×2 (22:20→22:29)
[2021-05-10] VITALS (24 sets, daily range): BP systolic 120–185; BP diastolic 49–77; PULSE 63–74; RESP 14–19; TEMP 36.6–37.4; O2SAT 94–100
[2021-05-10] MEDS: Lactulose 20 GM/30 ML UDC NG (00:10)
[2021-05-10] MEDS: Insulin Lispro 100 UNIT/ML INSULN.PEN SC ×4 (00:10→23:05)
[2021-05-10] MEDS: fentaNYL 100 MCG/2 ML Ampul 25 MCG IV (00:23)
[2021-05-10] MEDS: 0.9% Saline Lock 10 ML Syringe IV (00:24)
[2021-05-10 00:41] LABS: Bedside Glucose 208 mg/dL (70-110)
[2021-05-10 05:38] LABS: Absolute Lymphocyte Count 0.48 X10^3/uL (0.83-4.51); Absolute Neutrophil Count 2.1 X10^3/uL (2.0-7.7); Basophil# 0.02 X10^3/uL; Basophil% 0.7 % (0-1); Eosinophil# 0.09 X10^3/uL; Hematocrit 22.9 % (37-47); Lymphocyte # 0.48 X10^3/ul (0.83-4.51); Lymphocyte % 16.1 % (19-41); Mean Corp Hgb Conc 34.9 g/dL (32-36); Mean Corpuscular Hgb 30.7 pg (27.0-32.0); Mean Corpuscular Volume 87.7 fL (81-99); Mean Platelet Vol. 11.9 fl (6.2-12.0); Monocyte# 0.32 X10^3/uL; Monocyte% 10.7 % (0-10); NRBC Flagged by Analyzer 0 % (0-5); Neutrophil # 2.06 X10^3/uL (2.7-7.7); Neutrophil % 69.2 % (47-70); POSITIVE COUNT YES; POSITIVE DIFFERENTIAL YES; Platelet Count 54 K/mm3 (150-450); RBC Distribution Width CV 13.5 % (11.6-14.6); RBC Distribution Width SD 41.4 fl (35.1-43.9); Red Blood Count 2.61 M/mm3 (4.2-5.4)
[2021-05-10 05:39] LABS: Differential Indicated SCAN CRITERIA MET
[2021-05-10 05:44] LABS: Anion Gap 7 (5-15); BUN 24 mg/dL (7-18); BUN/Creat Ratio 21.2 RATIO (10-20); Calcium,Total 7.8 mg/dL (8.5-10.1); Chloride 112 mmol/L (98-107); Creatinine, Serum 1.13 mg/dL (0.55-1.02); EST Glomerular Filtration Rate 54 mL/min (>60); Est Glom Filt Rate - Afr Amer 65 mL/min (>60); Estimated Creatinine Clearance 58.75 ml/min; Glucose 210 mg/dL (74-106); Potassium 3.2 mmol/L (3.5-5.1); Sodium Level 141 mmol/L (136-145)
[2021-05-10 05:55] LABS: Differential Comment SCANNED; Platelet Estimate MOD DEC (ADEQ)
--- NOTE | 2021-05-10 07:03 | PN.CC_ITS ---
Assessment & Plan Assessment/Plan (1) Acute hepatic encephalopathy: (2) UTI (urinary tract infection): (3) Autoimmune hepatitis: (4) Pancytopenia: (5) Diabetes mellitus, type 2: (6) Hypertension: PLAN: RECOMMENDATIONS: 1. Speech to evaluate swallow 2. Continue rifaximin and lactulose. Possible NG if necessary 3. Continue antibiotics for UTI 4. Discontinue sedation and fentanyl 5. Increase activity as tolerated 6. Potential transfer from the intensive care unit later this morning IMPRESSIONS: 1. Acute respiratory failure secondary to hepatic encephalopathy Patient with significantly elevated ammonia level, likely leading to GCS of 6. Patient intubated for airway protection. Patient successfully extubated this morning. Mental status appears to be much improved compared to previous. Will need to continue with rifaximin and lactulose. Increase activity as tolerated. Given patient was intubated only for airway protection, likely okay to leave the intensive care unit later today if able to tolerate p.o. 2. Acute cystitis secondary to gram-negative Patient's UA is suggestive of an acute infectious etiology. Cultures are still pending. We will continue to monitor renal function. No indication for renal replacement therapy at this time. This may be the etiology of patient's underlying nausea on presentation 3. Autoimmune hepatitis/cirrhosis/chronic pancytopenia/hypertension/type 2 diabetes mellitus Complicates care, management, recovery and prognosis. We will hold on antihypertensive medications for now. Sliding scale insulin would be appropriate for diabetes. We will have to watch for hypoglycemia given liver dysfunction. TIME: 34 minutes critical care time spent addressing patient's acute respiratory failure, hepatic encephalopathy, acute cystitis, diabetes mellitus, review of all data and collaboration with care team (5:45 AM to 6:45 AM) Subjective Subjective Patient did well overnight. Patient was on sedation for the majority of the evening. Patient was noted to have some increased blood pressures, but no intervention was required. Patient did pass a spontaneous breathing trial this morning and was successfully extubated. Unfortunately, patient did fail her bedside swallow evaluation, so speech will be consulted. Patient is not reporting any nausea or abdominal pain at this time. Objective Data Objective Data Vital Signs: Vital Signs Temp Pulse Resp BP Pulse Ox 37.2 C 70 15 185/77 H 100 05/10/21 06:00 05/10/21 06:00 05/10/21 06:00 05/10/21 06:00 05/10/21 06:00 Oxygen Flow Rate (L/min) 3 Oxygen Delivery Method Mechanical Ventilator Weight: 83.5 kg Body Mass Index (BMI) 27.2 Intake & Output: Intake and Output for Last 24 Hours 05/08/21 05/09/21 05/10/21 23:59 23:59 23:59 Intake Total 2258.09 / 2410.59 1143.75 / 1736.75 593 / 593 Output Total 1000 / 1150 805 / 1030 225 / 225 Balance 1258.09 / 1260.59 338.75 / 706.75 368 / 368 Lab / Micro Data Result Diagrams: 05/10/21 04:20 05/10/21 04:20 Labs: Laboratory Results - last 24 hr 05/08/21 05/08/21 05/09/21 12:35 23:17 03:20 WBC RBC Hgb Hct MCV MCH MCHC RDW Std Deviation RDW Coeff of Valentina Plt Count MPV Immature Gran % (Auto) Neut % (Auto) Lymph % (Auto) [place] % (Auto) Eos % (Auto) Baso % (Auto) Absolute Neuts (auto) Absolute Lymphs (auto) Nucleated RBC % Differential Comment Diff Path Review Reviewed Reviewed Platelet Estimate Sodium Potassium Chloride Carbon Dioxide Anion Gap BUN Creatinine Estim Creat Clear Calc Est GFR (MDRD) Af Amer Est GFR (MDRD) Non-Af BUN/Creatinine Ratio Glucose Calcium POC Glucose 150 H 05/09/21 05/09/21 05/09/21 05:12 10:50 17:12 WBC RBC Hgb Hct MCV MCH MCHC RDW Std Deviation RDW Coeff of Valentina Plt Count MPV Immature Gran % (Auto) Neut % (Auto) Lymph % (Auto) [place] % (Auto) Eos % (Auto) Baso % (Auto) Absolute Neuts (auto) Absolute Lymphs (auto) Nucleated RBC % Differential Comment Diff Path Review Platelet Estimate Sodium Potassium Chloride Carbon Dioxide Anion Gap BUN Creatinine Estim Creat Clear Calc Est GFR (MDRD) Af Amer Est GFR (MDRD) Non-Af BUN/Creatinine Ratio Glucose Calcium POC Glucose 159 H 176 H 248 H 05/10/21 05/10/21 05/10/21 00:06 04:20 04:20 WBC 3.0 L RBC 2.61 L Hgb 8.0 L Hct 22.9 L MCV 87.7 MCH 30.7 MCHC 34.9 RDW Std Deviation 41.4 RDW Coeff of Valentina 13.5 Plt Count 54 L MPV 11.9 Immature Gran % (Auto) 0.300 Neut % (Auto) 69.2 Lymph % (Auto) 16.1 L [place] % (Auto) 10.7 H Eos % (Auto) 3.0 Baso % (Auto) 0.7 Absolute Neuts (auto) 2.1 Absolute Lymphs (auto) 0.48 L Nucleated RBC % 0 Differential Comment SCANNED Diff Path Review May foll Platelet Estimate MOD DEC Sodium 141 Potassium 3.2 L Chloride 112 H Carbon Dioxide 22.0 Anion Gap 7 BUN 24 H Creatinine 1.13 H Estim Creat Clear Calc 58.75 Est GFR (MDRD) Af Amer 65 Est GFR (MDRD) Non-Af 54 L BUN/Creatinine Ratio 21.2 H Glucose 210 H Calcium 7.8 L POC Glucose 208 H Micro: Microbiology 05/08/21 Unknown Sputum, Induced/Lukens Gram Stain - Final 05/08/21 Unknown Sputum, Induced/Lukens Respiratory Culture - Preliminary Appears to be normal respiratory jose g. Further studies to follow. 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 ABG Data ABG results: ABG 05/09/21 06:03 Specimen Type ART Sample Site L Brach pH 7.43 Bicarbonate Actual 21.1 L Total CO2 22 Base Excess -3 L O2 Saturation 97 O2 % 21 ABG pCO2 31.6 L ABG pO2 82 Daniel Test N/A O2 Delivery Device Adult Vent Vent Mode CPAP/PS POC PEEP 5 POC Pressure Suppt 5 Physical Exam Const alert, oriented x3 and no apparent distress General Appearance: cooperative and comfortable HEENT normocephalic and head/scalp atraumatic; Negative for moist oral mucous mem branes Eyes PERRL, EOMs intact bilaterally, conjunctivae normal and no scleral icterus Neck full ROM Lymph Lymphatic: no lymphadenopathy noted Resp normal respiratory effort and no use of accessory muscles Effort and Inspection: able to speak in complete sentences Auscultation: clear to auscultation bilaterally; Negative for rales, rhonchi or wheezes Cardio S1 normal heart sound, S2 normal heart sound, no murmurs, no rub, no gallops and no JVD GI normal to inspection, nondistended, normoactive bowel sounds, soft to palpation and non-tender Palpation: Negative for tender, guarding or rigid Extremity no clubbing, cyanosis or edema Skin no rashes or lesions noted Neuro Sensorium / Orientation: sedated on vent Psych cooperative Mood & Affect: flat affect Charges/Coding Procedures Hospitalists Procedures: 54093 Critial Care 1st Hr
[2021-05-10] MEDS: Potassium Chloride 10mEq/100mL 10 MEQ/100 ML IV.SOLN. 100 MEQ IV BOLUS ×4 (08:03→11:42)
--- NOTE | 2021-05-10 10:05 | CASEMGMT ---
TAMIKO MELLO Face to Face with patient for initial transition planning/care coordination assessment. RN FUNMILAYO introduced self and role at [facility]. Patient lying in bed, alert and oriented. Patient willing to participate in assessment and is able to answer all questions appropriately. Care providers, pharmacy, and demographics verified. Patient wishes to discharge home with resumption of care with [facility] for halfway and therapy. Patient states she has no further needs or concerns at this time. CM to follow for discharge planning needs that may arise. PCP: Jesika Specialists: Sher, hematology; Adrián, endocrinology; Josh, psych; follows with liver specialist at [facility] Preferred Pharmacy: [facility] Insurance: [employer] Prescription Benefit: yes Living Will/HPOA: yes, sister James Nichole LNOK: sister, significant other. Living Arrangements: Patient lives with significant other and 16yo autistic son in a 2 story home. Patient states she is able to ambulate stairs. Transportation: significant other DME/HHC: Patient states she has shower chair, raised toilet, cane, walker, rollator, grab bars at home. Patient is active with [facility] for halfway and therapy. Disposition Plan: Patient to discharge home with [facility], family support, and follow-up plans in place. Josefa VILLALOBOS, RN, CM
--- NOTE | 2021-05-10 10:17 | CASEMGMT ---
SW assisted pt in completing LW/POA forms. SW gave pt originals and copies, and a copy placed on the chart. Pt also states she has Waiver services that are to start, have not started yet, Hazel is her case management specialist. SW called [facility], pt's case management specialist is Hazel Bunn through [facility], . SW called Hazel, let her know pt is here in the hospital. She states pt has a waiver application in place and are working on eligibility, and pt should be hearing soon if eligible for services. SW gave pt Hazel's number. CAMILLA Coulter
[2021-05-10 10:30] LABS: Bedside Glucose 203 mg/dL (70-110)
[2021-05-10] MEDS: Ceftriaxone 1 GM/50 ML BAG IV (10:33)
--- NOTE | 2021-05-10 10:55 | PN.HOSP_ITS ---
Subjective Subjective No issues overnight, extubated this morning and and doing well. Ammonia is down from 1 80-43 today. Objective Data Objective Data Vital Signs: Vital Signs Temp Pulse Resp BP Pulse Ox 98.5 F 70 19 H 177/67 H 100 05/10/21 10:00 05/10/21 10:00 05/10/21 10:00 05/10/21 10:00 05/10/21 10:00 Oxygen Flow Rate (L/min) 2 Oxygen Delivery Method Room Air Weight: 185 lb 13.595 oz Body Mass Index (BMI) 27.2 Intake & Output: Intake and Output for Last 24 Hours 05/09/21 05/10/21 05/11/21 03:59 03:59 03:59 Intake Total 2418.09 / 2420.59 1576.75 / 1576.75 310 / 310 Output Total 1150 / 1150 880 / 880 125 / 125 Balance 1268.09 / 1270.59 696.75 / 696.75 185 / 185 Lab / Micro Data Result Diagrams: 05/10/21 04:20 05/10/21 04:20 Labs: Laboratory Results - last 24 hr 05/08/21 05/09/21 05/09/21 12:35 03:20 10:50 WBC RBC Hgb Hct MCV MCH MCHC RDW Std Deviation RDW Coeff of Valentina Plt Count MPV Immature Gran % (Auto) Neut % (Auto) Lymph % (Auto) [place] % (Auto) Eos % (Auto) Baso % (Auto) Absolute Neuts (auto) Absolute Lymphs (auto) Nucleated RBC % Differential Comment Diff Path Review Reviewed Reviewed Platelet Estimate Sodium Potassium Chloride Carbon Dioxide Anion Gap BUN Creatinine Estim Creat Clear Calc Est GFR (MDRD) Af Amer Est GFR (MDRD) Non-Af BUN/Creatinine Ratio Glucose Calcium Ammonia POC Glucose 176 H 05/09/21 05/10/21 05/10/21 17:12 00:06 04:20 WBC 3.0 L RBC 2.61 L Hgb 8.0 L Hct 22.9 L MCV 87.7 MCH 30.7 MCHC 34.9 RDW Std Deviation 41.4 RDW Coeff of Valentina 13.5 Plt Count 54 L MPV 11.9 Immature Gran % (Auto) 0.300 Neut % (Auto) 69.2 Lymph % (Auto) 16.1 L [place] % (Auto) 10.7 H Eos % (Auto) 3.0 Baso % (Auto) 0.7 Absolute Neuts (auto) 2.1 Absolute Lymphs (auto) 0.48 L Nucleated RBC % 0 Differential Comment SCANNED Diff Path Review May foll Platelet Estimate MOD DEC Sodium Potassium Chloride Carbon Dioxide Anion Gap BUN Creatinine Estim Creat Clear Calc Est GFR (MDRD) Af Amer Est GFR (MDRD) Non-Af BUN/Creatinine Ratio Glucose Calcium Ammonia POC Glucose 248 H 208 H 05/10/21 05/10/21 05/10/21 04:20 06:43 07:54 WBC RBC Hgb Hct MCV MCH MCHC RDW Std Deviation RDW Coeff of Valentina Plt Count MPV Immature Gran % (Auto) Neut % (Auto) Lymph % (Auto) [place] % (Auto) Eos % (Auto) Baso % (Auto) Absolute Neuts (auto) Absolute Lymphs (auto) Nucleated RBC % Differential Comment Diff Path Review Platelet Estimate Sodium 141 Potassium 3.2 L Chloride 112 H Carbon Dioxide 22.0 Anion Gap 7 BUN 24 H Creatinine 1.13 H Estim Creat Clear Calc 58.75 Est GFR (MDRD) Af Amer 65 Est GFR (MDRD) Non-Af 54 L BUN/Creatinine Ratio 21.2 H Glucose 210 H Calcium 7.8 L Ammonia 43.0 H POC Glucose 203 H Micro: Microbiology 05/08/21 13:12 Urine Catheter - Hill Urine Culture - Final Citrobacter freundii 05/08/21 Unknown Sputum, Induced/Lukens Gram Stain - Final 05/08/21 Unknown Sputum, Induced/Lukens Respiratory Culture - Preliminary Appears to be normal respiratory jose g. Further studies to follow. Physical Exam Const alert, oriented x3 and no apparent distress General Appearance: cooperative HEENT moist oral mucous membranes Head and Scalp: normocephalic Eyes PERRL, EOMs intact bilaterally and conjunctivae normal Neck supple and no JVD Resp normal respiratory effort, no retractions, no use of accessory muscles and clear to auscultation bilaterally Auscultation: Negative for crackles, rales, rhonchi or wheezes Cardio regular rate, regular rhythm, S1 normal heart sound, S2 normal heart sound and no murmurs GI soft to palpation, non-tender and non-distended; Negative for hepatosplenomegaly Extremity no clubbing, cyanosis or edema Skin no rashes or lesions noted Neuro no focal motor deficits and no sensory deficits noted Psych affect normal Appearance: appropriate Assessment & Plan Assessment/Plan (1) Acute hepatic encephalopathy: (2) UTI (urinary tract infection): (3) Hypertension: (4) Diabetes mellitus, type 2: (5) Essential (primary) hypertension: (6) Pancytopenia: (7) Autoimmune hepatitis: PLAN: 1. Acute hepatic encephalopathy with acute respiratory failure with chronic pancytopenia and liver cirrhosis -Ammonia level on admission was 180, she was started on lactulose and Xifaxan -Ammonia is trending down -Extubated this morning, can transfer to PCU -Her liver disease is secondary to autoimmune hepatitis -Encephalopathy has resolved as has her acute respiratory failure 2. Acute cystitis secondary to Citrobacter -Urine culture is pending as are blood cultures -Continue with Rocephin 3. HTN -She will have as needed hydralazine available -We will continue with her Coreg, and can restart her Norvasc when taking p.o. -Hold lisinopril and Aldactone 4. DM2 -Accu-Cheks AC at bedtime -Sliding scale insulin -Can resume her home insulin when she is taking p.o. 5. Anxiety/depression -Stable -Can restart Zoloft 6. GERD -Stable -Can continue with her PPI and Carafate DVT: SCD Charges/Coding Visit Charges Inpatient E&M: 36062 Subs Hosp L2
[2021-05-10] MEDS: Ondansetron 4 MG/2 ML Vial IV (11:25)
[2021-05-10] MEDS: CHLORHEXIDINE GLUC 2% CLOTH 1 EACH TOWELETTE TOPICAL (12:05)
[2021-05-10 12:06] LABS: Bedside Glucose 185 mg/dL (70-110)
[2021-05-10 12:28] LABS: Pathologist Review Reviewed
[2021-05-10] MEDS: rifAXIMin 550 MG Tablet 275 MG GT (17:15)
[2021-05-10] MEDS: Sucralfate 1 GM Tablet PO ×2 (17:15→22:51)
[2021-05-10] MEDS: Insulin Lispro 100 UNIT/ML INSULN.PEN 8 UNIT SC (17:17)
[2021-05-10 17:30] LABS: Bedside Glucose 248 mg/dL (70-110)
[2021-05-10] MEDS: Lactulose 20 GM/30 ML UDC PO (18:26)
[2021-05-10] MEDS: Carvedilol 25 MG Tablet PO (22:48)
[2021-05-10] MEDS: carBAMazepine 200 MG/10 ML UDC 100 MG PO (22:49)
[2021-05-10] MEDS: rifAXIMin 550 MG Tablet 275 MG PO (22:50)
[2021-05-10] MEDS: Ursodiol 250 MG Tablet PO (22:51)
[2021-05-11] MEDS: Lactulose 20 GM/30 ML UDC PO ×3 (00:36→11:22)
[2021-05-11 01:01] LABS: Bedside Glucose 197 mg/dL (70-110)
[2021-05-11 03:00] VITALS: PULSE 70
[2021-05-11 05:00] VITALS: BP 113/48; PULSE 65; RESP 16; TEMP 36.9; O2SAT 97
[2021-05-11 06:25] LABS: Bedside Glucose 228 mg/dL (70-110)
[2021-05-11] MEDS: rifAXIMin 550 MG Tablet 275 MG PO (06:25)
[2021-05-11] MEDS: Sucralfate 1 GM Tablet PO ×2 (06:32→11:22)
[2021-05-11 06:55] VITALS: PULSE 64
[2021-05-11 07:05] LABS: Absolute Lymphocyte Count 0.46 X10^3/uL (0.83-4.51); Absolute Neutrophil Count 1.4 X10^3/uL (2.0-7.7); Basophil# 0.03 X10^3/uL; Basophil% 1.4 % (0-1); Eosinophil# 0.07 X10^3/uL; Eosinophils% 3.3 % (0-5); Hematocrit 22.4 % (37-47); Hemoglobin 7.7 g/dL (12.0-15.0); Lymphocyte # 0.46 X10^3/ul (0.83-4.51); Lymphocyte % 21.4 % (19-41); Mean Corp Hgb Conc 34.4 g/dL (32-36); Mean Corpuscular Hgb 30.2 pg (27.0-32.0); Mean Corpuscular Volume 87.8 fL (81-99); Mean Platelet Vol. 11.6 fl (6.2-12.0); Monocyte# 0.23 X10^3/uL; Monocyte% 10.7 % (0-10); NRBC Flagged by Analyzer 0 % (0-5); Neutrophil # 1.35 X10^3/uL (2.7-7.7); Neutrophil % 62.7 % (47-70); POSITIVE COUNT YES; POSITIVE DIFFERENTIAL YES; Platelet Count 52 K/mm3 (150-450); RBC Distribution Width CV 13.4 % (11.6-14.6); RBC Distribution Width SD 42.6 fl (35.1-43.9); Red Blood Count 2.55 M/mm3 (4.2-5.4); White Blood Count 2.2 K/mm3 (4.4-11.0)
[2021-05-11 07:06] LABS: Differential Indicated SCAN CRITERIA MET
[2021-05-11 07:22] VITALS: O2SAT 97
[2021-05-11 07:23] LABS: Differential Comment SCANNED; Platelet Estimate MKD DEC (ADEQ)
[2021-05-11 07:25] LABS: Anion Gap 6 (5-15); BUN 18 mg/dL (7-18); BUN/Creat Ratio 16.1 RATIO (10-20); Chloride 111 mmol/L (98-107); Creatinine, Serum 1.12 mg/dL (0.55-1.02); EST Glomerular Filtration Rate 54 mL/min (>60); Est Glom Filt Rate - Afr Amer 66 mL/min (>60); Estimated Creatinine Clearance 59.27 ml/min; Glucose 245 mg/dL (74-106); Potassium 3.3 mmol/L (3.5-5.1); Sodium Level 139 mmol/L (136-145)
[2021-05-11] MEDS: Insulin Lispro 100 UNIT/ML INSULN.PEN SC (08:52)
[2021-05-11] MEDS: Insulin Lispro 100 UNIT/ML INSULN.PEN 8 UNIT SC (08:52)
[2021-05-11] MEDS: Carvedilol 25 MG Tablet PO (08:53)
[2021-05-11] MEDS: amLODIPine 5 MG Tablet PO (08:54)
[2021-05-11] MEDS: Sertraline 50 MG Tablet PO (08:54)
[2021-05-11] MEDS: Ursodiol 250 MG Tablet PO (08:54)
[2021-05-11] MEDS: carBAMazepine 200 MG/10 ML UDC 100 MG PO (08:54)
--- NOTE | 2021-05-11 09:28 | PCM.PN.INT ---
Assessment & Plan Assessment/Plan (1) Acute hepatic encephalopathy: (2) UTI (urinary tract infection): (3) Autoimmune hepatitis: (4) Pancytopenia: (5) Diabetes mellitus, type 2: (6) Hypertension: PLAN: RECOMMENDATIONS: 1. Complete antibiotics for UTI 2. Continue rifaximin and lactulose. Possible NG if necessary 3. Walking oximetry prior to discharge 4. Hemodynamically stable on room air. Will sign off from a critical care perspective. No need for outpatient follow-up IMPRESSIONS: 1. Acute respiratory failure secondary to hepatic encephalopathy Patient with significantly elevated ammonia level, likely leading to GCS of 6. Patient intubated for airway protection. Patient successfully extubated yesterday. Mental status appears to be at baseline. Will need to continue with rifaximin and lactulose. Increase activity as tolerated. No indication for outpatient follow-up by pulmonary. Hemodynamically stable on room air. Will sign off from a critical care perspective 2. Acute cystitis secondary to Citrobacter Patient's UA is suggestive of an acute infectious etiology. Cultures are still pending. We will continue to monitor renal function. No indication for renal replacement therapy at this time. This may be the etiology of patient's underlying nausea on presentation 3. Autoimmune hepatitis/cirrhosis/chronic pancytopenia/hypertension/type 2 diabetes mellitus Complicates care, management, recovery and prognosis. Okay to resume baseline medications. No indication for transfusion at this time. Potassium supplementation by diet is likely sufficient. Subjective Subjective Patient transferred out of the intensive care unit yesterday. Patient had a good evening. Patient denies any current chest pain, nausea or vomiting. Patient did admit to dysuria prior to her admission. Objective Data Objective Data Vital Signs: Vital Signs Temp Pulse Resp BP Pulse Ox 36.9 C 64 16 113/48 L 97 05/11/21 05:00 05/11/21 06:55 05/11/21 05:00 05/11/21 05:00 05/11/21 05:00 Oxygen Flow Rate (L/min) 2 Oxygen Delivery Method Room Air Weight: 82.2 kg Body Mass Index (BMI) 27.2 Intake & Output: Intake and Output for Last 24 Hours 05/09/21 05/10/21 05/11/21 23:59 23:59 23:59 Intake Total 1143.75 / 1736.75 1263 / 1263 120 / 120 Output Total 805 / 1030 1100 / 1100 Balance 338.75 / 706.75 163 / 163 120 / 120 Lab / Micro Data Result Diagrams: 05/11/21 05:55 05/11/21 05:55 Labs: Laboratory Results - last 24 hr 05/10/21 05/10/21 05/10/21 04:20 06:43 11:57 WBC RBC Hgb Hct MCV MCH MCHC RDW Std Deviation RDW Coeff of Valentina Plt Count MPV Immature Gran % (Auto) Neut % (Auto) Lymph % (Auto) Branch % (Auto) Eos % (Auto) Baso % (Auto) Absolute Neuts (auto) Absolute Lymphs (auto) Nucleated RBC % Differential Comment Diff Path Review Reviewed Platelet Estimate Sodium Potassium Chloride Carbon Dioxide Anion Gap BUN Creatinine Estim Creat Clear Calc Est GFR (MDRD) Af Amer Est GFR (MDRD) Non-Af BUN/Creatinine Ratio Glucose Calcium POC Glucose 203 H 185 H 05/10/21 05/10/21 05/11/21 17:14 22:48 05:55 WBC 2.2 L RBC 2.55 L Hgb 7.7 L Hct 22.4 L MCV 87.8 MCH 30.2 MCHC 34.4 RDW Std Deviation 42.6 RDW Coeff of Valentina 13.4 Plt Count 52 L MPV 11.6 Immature Gran % (Auto) 0.500 Neut % (Auto) 62.7 Lymph % (Auto) 21.4 Branch % (Auto) 10.7 H Eos % (Auto) 3.3 Baso % (Auto) 1.4 H Absolute Neuts (auto) 1.4 L Absolute Lymphs (auto) 0.46 L Nucleated RBC % 0 Differential Comment SCANNED Diff Path Review May foll Platelet Estimate MKD DEC Sodium Potassium Chloride Carbon Dioxide Anion Gap BUN Creatinine Estim Creat Clear Calc Est GFR (MDRD) Af Amer Est GFR (MDRD) Non-Af BUN/Creatinine Ratio Glucose Calcium POC Glucose 248 H 197 H 05/11/21 05/11/21 05:55 06:16 WBC RBC Hgb Hct MCV MCH MCHC RDW Std Deviation RDW Coeff of Valentina Plt Count MPV Immature Gran % (Auto) Neut % (Auto) Lymph % (Auto) Branch % (Auto) Eos % (Auto) Baso % (Auto) Absolute Neuts (auto) Absolute Lymphs (auto) Nucleated RBC % Differential Comment Diff Path Review Platelet Estimate Sodium 139 Potassium 3.3 L Chloride 111 H Carbon Dioxide 22.0 Anion Gap 6 BUN 18 Creatinine 1.12 H Estim Creat Clear Calc 59.27 Est GFR (MDRD) Af Amer 66 Est GFR (MDRD) Non-Af 54 L BUN/Creatinine Ratio 16.1 Glucose 245 H Calcium 8.0 L POC Glucose 228 H Micro: Microbiology 05/08/21 14:40 Blood Culture (Wb) - Left Hand Blood Culture - Preliminary No growth in 48 hours. 05/08/21 14:30 Blood Culture (Wb) - Right Hand Blood Culture - Preliminary No growth in 48 hours. 05/08/21 13:12 Urine Catheter - Hill Urine Culture - Final Citrobacter freundii 05/08/21 Unknown Sputum, Induced/Lukens Gram Stain - Final 05/08/21 Unknown Sputum, Induced/Lukens Respiratory Culture - Preliminary Appears to be normal respiratory jose g. Further studies to follow. Physical Exam Const alert, oriented x3 and no apparent distress General Appearance: cooperative and comfortable HEENT normocephalic and head/scalp atraumatic; Negative for moist oral mucous membranes Eyes PERRL, EOMs intact bilaterally, conjunctivae normal and no scleral icterus Neck full ROM Lymph Lymphatic: no lymphadenopathy noted Resp normal respiratory effort and no use of accessory muscles Effort and Inspection: able to speak in complete sentences Auscultation: clear to auscultation bilaterally; Negative for rales, rhonchi or wheezes Cardio S1 normal heart sound, S2 normal heart sound, no murmurs, no rub, no gallops and no JVD GI normal to inspection, nondistended, normoactive bowel sounds, soft to palpation and non-tender Inspection: abdominal distention Palpation: Negative for tender, guarding or rigid Extremity no clubbing, cyanosis or edema Skin no rashes or lesions noted Neuro Sensorium / Orientation: sedated on vent Psych cooperative Mood & Affect: flat affect Charges/Coding Visit Charges Inpatient E&M: 72193 Subs Hosp L2
[2021-05-11] MEDS: Ceftriaxone 1 GM/50 ML BAG IV (09:33)
--- NOTE | 2021-05-11 09:47 | CASEMGMT ---
Addendum entered by Josefa Frias 05/11/21 09:52: Referral faxed to palliative. Stuart MORRISON CM Original Note: Per Dr. Monson, pt is agreeable to palliative referral. Order placed and message left with Ame at palliative and Ashlee at [facility]. Plan is for pt to discharge home with resumption of HHC today. CM to follow. Stuart MORRISON CM
--- NOTE | 2021-05-11 11:18 | CASEMGMT ---
This TAMIKO MELLO received call from Hazel, pt's [facility] CM, and states she is checking on whether palliative is covered for pt. Hazel aware that referral was sent but pt can always decline if not covered or co-pay, voices understanding. Hazel also states that pt has a pending waiver berny. Hazel aware that pt to discharge today with [facility]. Hazel's contact info: [phone]. SStkelly MORRISON CM
[2021-05-11] MEDS: Potassium Chloride Oral Tablet 20 MEQ 40 MEQ PO (11:22)
[2021-05-11 11:23] VITALS: BP 113/55; PULSE 64; RESP 18; TEMP 36.9; O2SAT 99
[2021-05-11 11:28] VITALS: O2SAT 95; O2SAT 99
[2021-05-11 12:35] LABS: Pathologist Review Reviewed
--- NOTE | 2021-05-11 12:41 | PCM.DC ---
Discharge Instructions Diet Discharge Diet: No restrictions Activity Discharge Activity: Return to Normal Activity Dressing / Incision Call your doctor if you observe: Fever of 101 or Higher, Shortness of breath, Dizziness, Swelling in the ankles, Chest pain and Increased palpitations (irregular heartbeat) Follow Up Care Test Results: Test results from this visit will be discussed in further detail at your follow-up appointment, if applicable. Discharge Plan Admission Admit Date/Time: 05/08/21 15:04 Attending Provider: Albino Monson Primary Care Provider: Janay Canchola Consulting Providers: Mando Alfonso ; Patel Arboleda ; Mouna Rios NP Discharge Orders/Prescriptions Prescriptions: New lactulose 20 gram/30 mL solution 20 g PO BID Qty: 1200 RF: 0 cefdinir 300 mg capsule 300 mg PO BID Qty: 10 RF: 0 Continued carvedilol 25 mg tablet 25 mg PO BID Qty: 180 RF: 3 magnesium oxide 400 MG tablet 400 mg PO BID RF: 0 Xifaxan 550 MG tablet 550 mg PO BID RF: 0 pregabalin 50 mg capsule 50 mg PO BID RF: 0 sucralfate [Carafate] 1 gram Tablet 1 g PO ACHS RF: 0 pantoprazole 40 mg Tablet,Delayed Release (Dr/Ec) 40 mg PO DAILY RF: 0 sertraline 50 mg Tablet 50 mg PO DAILY RF: 0 Latuda 40 mg tablet 40 mg PO QHS RF: 0 prednisolone acetate 1 % drops,suspension 1 drp OPHTHALMIC (EYE) 4X/DAY RF: 0 lisinopril 5 mg tablet 5 mg PO DAILY Qty: 30 RF: 0 ursodiol 300 mg capsule 300 mg PO BID RF: 0 insulin lispro [Humalog KwikPen Insulin] 100 unit/mL insulin pen 8 unit SUBCUT TID RF: 0 carbamazepine 100 mg Tablet Extended Release 12 Hr 100 mg PO BID RF: 0 ketorolac 0.5 % drops 1 drp EACH EYE 4X/DAY RF: 0 zinc gluconate 50 mg tablet 50 mg PO DAILY RF: 0 spironolactone 50 mg tablet 50 mg PO DAILY RF: 0 lidocaine 5 % ointment 1 applic topical DAILY RF: 0 amlodipine 5 mg tablet 5 mg PO DAILY RF: 0 Referrals / Follow Up: Janay Canchola MD [Primary Care Provider] - Disposition Disposition (needs filled in before D/C Order can be placed): Home Health Service
[2021-05-11 12:51] LABS: Bedside Glucose 222 mg/dL (70-110)
--- NOTE | 2021-05-11 13:11 | CHAPLAIN ---
Type of Pastoral Visit _x__ Initial Visit ___ Follow-up Visit ___ On-call Visit ___ General Patient Visit ___ Spiritual Assessment ___ Family Conference ___ Bereavement ___ Rapid Response ___ Code Blue ___ Other (describe below) Pastoral Care Referral From _x__ Patient ___ Family ___ Nurse ___ Physician ___ Cargo Bracer ___ Hem Marker ___ Other (describe below) Sacrament/Intervention _x__ Active listening ___ Anointing ___ Sikh ___ Bereavement ___ Communion _x__ Rashida exploration ___ _x__ Life review _x__ Prayer ___ Reconciliation ___ Sacrament of Sick _x__ Supportive presence ___ Wedding ___ Other (describe below) Pastoral Comments patient is looking for direction for living, work, and family issues; pt states that she has been going to caodaism and wants to pray more.
--- NOTE | 2021-05-11 13:54 | DS.PCM_ITS ---
Providers Date of Admission: 05/08/21 Primary Care Physician: Dr. Janay Canchola MD Consultations 05/08/21 15:59 Consult: Wood Caulker / Pulmonary Medicine Routine Consulting Provider: Pulmonary Medicine simi [place] Reason for Consult: Acute hepatic encephalopathy, acute respiratory failure EMERGENT Consult: No MD Notified: Yes Date Notified: 05/08/21 Time Notified: 15:02 Method of Notification: Verbal Reason For Visit: HEPATIC ENCEPHALOPATHY Diagnosis Discharge Diagnosis (1) Acute hepatic encephalopathy: Status: Acute Code(s): K72.00 - Acute and subacute hepatic failure without coma (2) UTI (urinary tract infection): Status: Acute Code(s): N39.0 - Urinary tract infection, site not specified (3) Autoimmune hepatitis: Status: Acute Code(s): K75.4 - Autoimmune hepatitis (4) Pancytopenia: Status: Chronic Code(s): D61.818 - Other pancytopenia (5) Diabetes mellitus, type 2: Status: Chronic Code(s): E11.9 - Type 2 diabetes mellitus without complications (6) Hypertension: Status: Chronic Code(s): I10 - Essential (primary) hypertension Medications at Discharge Home Medications magnesium oxide 400 mg PO BID 03/14/17 Xifaxan 550 mg PO BID 11/04/17 Latuda 40 mg PO QHS 03/20/21 pantoprazole 40 mg PO DAILY 03/20/21 prednisolone acetate 1 drp OPHTHALMIC (EYE) 4X/DAY 03/20/21 sertraline 50 mg PO DAILY 03/20/21 sucralfate [Carafate] 1 g PO ACHS 03/20/21 lisinopril 5 mg PO DAILY #30 tab 03/22/21 carvedilol 25 mg tablet 25 mg PO BID #180 tab 04/25/21 insulin lispro 100 unit/mL subcutaneous pen 8 unit SUBCUT TID 04/25/21 pregabalin 50 mg capsule 50 mg PO BID 04/25/21 ursodiol 300 mg capsule 300 mg PO BID 04/25/21 carbamazepine 100 mg PO BID 04/29/21 amlodipine 5 mg PO DAILY 05/08/21 ketorolac 1 drp EACH EYE 4X/DAY 05/08/21 lidocaine 1 applic TOPICAL DAILY 05/08/21 spironolactone 50 mg PO DAILY 05/08/21 zinc gluconate 50 mg PO DAILY 05/08/21 cefdinir 300 mg PO BID #10 cap 05/11/21 lactulose 20 g PO BID #1200 ml 05/11/21 Hospital Course Summary of Care Provided Minutes Spent on Discharge: 45 Hospital Course: Per HPI: ANA GARCÍA, is a 50 F with past medical history as mentioned above presented to the emergency room because of lethargy and confusion. At this time, patient is intubated and on mechanical ventilation, she is on sedation as well. No family members at the bedside. Reportedly, patient has been having nausea and vomiting over the last 3 days, was refusing to take any of her medications. Today, she started to be very drowsy and lethargic and almost unresponsive according to her family. Currently, patient is unable to provide any history. She had a history of autoimmune hepatitis and she is supposed to be on lactulose and rifaximin but reportedly, she has not been taking those medications. She had a history of type 2 diabetes mellitus that she has been on insulin and obviously, her blood sugar was not under good control. She had a history of hypertension, has been on Norvasc and lisinopril and her blood pressure was elevated in the ED after intubation. In the emergency room, patient was unresponsive, [place] Coma Scale was 6. She was intubated for airway protection. She was afebrile, blood pressure was elevated, currently on mechanical ventilation. Routine blood work was remarkable for chronic pancytopenia, BUN is 21, creatinine is 1.34. Blood glucose was 280, no evidence of DKA. Lactic acid was 1.6. LFT was unremarkable. Serum ammonia was 179. Urinalysis revealed cloudy urine, positive for nitrite, 500 leukocyte esterase, 25-50 WBCs and 2+ bacteria. CT scan brain showed no acute findings. EKG revealed normal sinus rhythm, left axis deviation, no acute changes. Chest x-ray reviewed, reported as left lower lobe consolidation which I doubt, I doubt pneumonia. Urine drug screen was negative. Blood alcohol level was less than 3. Patient is being admitted for acute hepatic encephalopathy, hyperammonemia, acute cystitis and acute respiratory failure. Hospital Course: 1. Acute hepatic encephalopathy secondary to inability to take her meds due to acute UTI due to Citrobacter with acute respiratory failure due to encephalopathy as well as chronic pancytopenia and liver [id number] female presented to the hospital with a history of autoimmune hepatitis who is supposed to be on Xifaxan and Aldactone at home presented with severe confusion and secondary to her altered mental status and the concern that she would not be able to protect her airway, she was intubated. She was started on lactulose and Xifaxan via G-tube while in the ICU and her ammonia level which on admission was 179 came down to 43 the day prior to discharge. She was extubated the day before discharge and felt much better. I discussed with her the possibility of discharge today and she expressed understanding of the risk and benefits of going home and wanted to go home today because she had a doctor's appointment at 1430. Also discussed discharged with the radiologic technology teacher who agreed that she was stable for discharge as long she was able to have an ambulatory pulse ox prior to discharge which she did admit did not demonstrate a need for oxygen. I discussed with her that the likelihood is is that she has a UTI she had caused her to have the inability to take her oral medications which then led to her having encephalopathy because of her liver disease. She was discharged on all her home medications with the addition of lactulose, and she will complete 5 days worth of cefdinir on the outpatient side. Her hemoglobin is low but at baseline for her she normally is anywhere between 7.5 and 9 and on the day of discharge she was 7.7. I did recommend to her to follow-up with her PCP in 3 to 5 days and to obtain outpatient labs. 2. Hypertension, type 2 diabetes, anxiety, depression, GERD are all chronic medical conditions which complicate her care. Her home medications were continued where appropriate Physical Exam Const alert, oriented x3 and no apparent distress General Appearance: cooperative HEENT moist oral mucous membranes Eyes PERRL, EOMs intact bilaterally and conjunctivae normal Neck supple and no JVD Resp normal respiratory effort, no retractions, no use of accessory muscles and clear to auscultation bilaterally Auscultation: Negative for crackles, rales, rhonchi or wheezes Cardio regular rate, regular rhythm, S1 normal heart sound, S2 normal heart sound and no murmurs GI soft to palpation, non-tender and non-distended; Negative for hepatosplenomegaly Extremity no clubbing, cyanosis or edema Skin no rashes or lesions noted Neuro no focal motor deficits and no sensory deficits noted Psych affect normal Appearance: appropriate Weight / BMI Weight Weight: 181 lb 3.52 oz Body Mass Index (BMI) 27.2 ABG / Lab / Microbiology Data Result Diagrams: 05/11/21 05:55 05/11/21 05:55 Laboratory: Laboratory Results - last 24 hr 05/10/21 05/10/21 05/11/21 17:14 22:48 05:55 WBC 2.2 L RBC 2.55 L Hgb 7.7 L Hct 22.4 L MCV 87.8 MCH 30.2 MCHC 34.4 RDW Std Deviation 42.6 RDW Coeff of Valentina 13.4 Plt Count 52 L MPV 11.6 Immature Gran % (Auto) 0.500 Neut % (Auto) 62.7 Lymph % (Auto) 21.4 [place] % (Auto) 10.7 H Eos % (Auto) 3.3 Baso % (Auto) 1.4 H Absolute Neuts (auto) 1.4 L Absolute Lymphs (auto) 0.46 L Nucleated RBC % 0 Differential Comment SCANNED Diff Path Review Reviewed Platelet Estimate MKD DEC Sodium Potassium Chloride Carbon Dioxide Anion Gap BUN Creatinine Estim Creat Clear Calc Est GFR (MDRD) Af Amer Est GFR (MDRD) Non-Af BUN/Creatinine Ratio Glucose Calcium POC Glucose 248 H 197 H 05/11/21 05/11/21 05/11/21 05:55 06:16 11:21 WBC RBC Hgb Hct MCV MCH MCHC RDW Std Deviation RDW Coeff of Valentina Plt Count MPV Immature Gran % (Auto) Neut % (Auto) Lymph % (Auto) [place] % (Auto) Eos % (Auto) Baso % (Auto) Absolute Neuts (auto) Absolute Lymphs (auto) Nucleated RBC % Differential Comment Diff Path Review Platelet Estimate Sodium 139 Potassium 3.3 L Chloride 111 H Carbon Dioxide 22.0 Anion Gap 6 BUN 18 Creatinine 1.12 H Estim Creat Clear Calc 59.27 Est GFR (MDRD) Af Amer 66 Est GFR (MDRD) Non-Af 54 L BUN/Creatinine Ratio 16.1 Glucose 245 H Calcium 8.0 L POC Glucose 228 H 222 H Microbiology: Microbiology 05/08/21 Unknown Gram Stain - Final Sputum, Induced/Lukens Respiratory Culture - Final 05/08/21 14:40 Blood Culture - Preliminary Blood Culture (Wb) - Left Hand No growth in 48 hours. 05/08/21 14:30 Blood Culture - Preliminary Blood Culture (Wb) - Right Hand No growth in 48 hours. 05/08/21 13:12 Urine Culture - Final Urine Catheter - Hill Citrobacter freundii Microbiology 05/08/21 Unknown Sputum, Induced/Lukens Gram Stain - Final 05/08/21 Unknown Sputum, Induced/Lukens Respiratory Culture - Final 05/08/21 14:40 Blood Culture (Wb) - Left Hand Blood Culture - Preliminary No growth in 48 hours. 05/08/21 14:30 Blood Culture (Wb) - Right Hand Blood Culture - Preliminary No growth in 48 hours. 05/08/21 13:12 Urine Catheter - Hill Urine Culture - Final Citrobacter freundii D/C Instructions Discharge Diet: No restrictions Call your doctor if you observe: Fever of 101 or Higher, Shortness of breath, Dizziness, Swelling in the ankles, Chest pain and Increased palpitations (irregular heartbeat) Meaningful Use Info Meaningful Use Diagnoses (Choose all that apply): None applicable Discharge Plan Admission Admit Date/Time: 05/08/21 15:04 Attending Provider: Albino Monson Primary Care Provider: Janay Canchola Consulting Providers: Mando Alfonso ; Patel Arboleda ; Mouna Rios UNIX SYSTEMS ADMINISTRATOR Instructions Additional Instructions / Restrictions: Patient Problems: Altered Health Status related to Hospitalization Patient Goals: *Optimal Level of Health *Keep Appointments *Medication Compliance *Remain Safe Discharge Orders/Prescriptions Prescriptions: New lactulose 20 gram/30 mL solution 20 g PO BID Qty: 1200 RF: 0 cefdinir 300 mg capsule 300 mg PO BID Qty: 10 RF: 0 Continued carvedilol 25 mg tablet 25 mg PO BID Qty: 180 RF: 3 magnesium oxide 400 MG tablet 400 mg PO BID RF: 0 Xifaxan 550 MG tablet 550 mg PO BID RF: 0 pregabalin 50 mg capsule 50 mg PO BID RF: 0 sucralfate [Carafate] 1 gram Tablet 1 g PO ACHS RF: 0 pantoprazole 40 mg Tablet,Delayed Release (Dr/Ec) 40 mg PO DAILY RF: 0 sertraline 50 mg Tablet 50 mg PO DAILY RF: 0 Latuda 40 mg tablet 40 mg PO QHS RF: 0 prednisolone acetate 1 % drops,suspension 1 drp OPHTHALMIC (EYE) 4X/DAY RF: 0 lisinopril 5 mg tablet 5 mg PO DAILY Qty: 30 RF: 0 ursodiol 300 mg capsule 300 mg PO BID RF: 0 insulin lispro [Humalog KwikPen Insulin] 100 unit/mL insulin pen 8 unit SUBCUT TID RF: 0 carbamazepine 100 mg Tablet Extended Release 12 Hr 100 mg PO BID RF: 0 ketorolac 0.5 % drops 1 drp EACH EYE 4X/DAY RF: 0 zinc gluconate 50 mg tablet 50 mg PO DAILY RF: 0 spironolactone 50 mg tablet 50 mg PO DAILY RF: 0 lidocaine 5 % ointment 1 applic topical DAILY RF: 0 amlodipine 5 mg tablet 5 mg PO DAILY RF: 0 Referrals / Follow Up: Janay Canchola MD [Primary Care Provider] - (Please call to make a follow up appointment. ) Disposition Disposition (needs filled in before D/C Order can be placed): Home Health Service Charges/Coding Visit Charges Inpatient E&M: 12989 Disch Hosp
--- NOTE | 2021-05-12 16:19 | CASEMGMT ---
TAMIKO MELLO Discharge Follow-up Phone Call: TIM: 15 Strata: 4 Call Date: 05/12/21 Discharge Date: 05/11/21 Time of Call: 1620 Duration: 1 Admitting Diagnosis: Hepatic encephalopathy TAMIKO MELLO attempted to complete follow-up phone call after recent hospitalization. No answer, phone disconnected and unable to leave message. CM will attempt call again later. Patient is established with [facility].
== END 2021-05-11 13:47 | disposition home health service (06) | DRG 441 ==
LOC: ED 14:19 → ICU 15:17 → PCU 05-10 12:10
PROVIDERS: Internal Medicine Critical Care Medicine; Admitting Provider Hospitalist; Emergency Provider Emergency Medicine; PCP Internal Medicine; Visit Provider Family Medicine
DX: K72.00 Acute and subacute hepatic failure without coma (principal); J96.00 Acute respiratory failure, unspecified whether with hypoxia or hypercapnia; D61.818 Other pancytopenia; N30.00 Acute cystitis without hematuria; K75.4 Autoimmune hepatitis; I10 Essential (primary) hypertension; F31.9 Bipolar disorder, unspecified; E06.3 Autoimmune thyroiditis; E11.42 Type 2 diabetes mellitus with diabetic polyneuropathy; F25.9 Schizoaffective disorder, unspecified; B96.89 Other specified bacterial agents as the cause of diseases classified elsewhere; F41.9 Anxiety disorder, unspecified; K21.9 Gastro-esophageal reflux disease without esophagitis; K74.60 Unspecified cirrhosis of liver; Z79.899 Other long term (current) drug therapy; Z79.4 Long term (current) use of insulin; Z91.14 Patient's other noncompliance with medication regimen; Z79.52 Long term (current) use of systemic steroids
CPT/HCPCS: 31500; 31720; 36415; 36600; 51702; 70450; 71045; 80048; 80053; 80307; 81001; 82077; 82140; 82803; 82962; 83605; 83690; 83735; 84100; 85025; 85610; 85730; 87040; 87070; 87077; 87086; 87088; 87186; 87205; 92526; 92610; 93005; 94002; 94003; 94660; 97110; 97162; 97166; 97530; 97535; 97802; 97803; 99285; J7030; A4216; J2405

== ENCOUNTER → 2021-05-22 11:36 | Outpatient (CLI) | payer MEDICARE, MEDICAID, SELFPAY ==
[2021-05-09 10:05] VITALS: BMI 27.2
[2021-05-22 12:18] LABS: Absolute Neutrophil Count 1.7 X10^3/uL (2.0-7.7); Basophil# 0.03 X10^3/uL; Basophil% 1.2 % (0-1); Eosinophil# 0.07 X10^3/uL; Eosinophils% 2.7 % (0-5); Hematocrit 26.3 % (37-47); Lymphocyte % 19.6 % (19-41); Mean Corp Hgb Conc 34.2 g/dL (32-36); Mean Corpuscular Hgb 30.4 pg (27.0-32.0); Mean Corpuscular Volume 88.9 fL (81-99); Mean Platelet Vol. 12.8 fl (6.2-12.0); Monocyte# 0.23 X10^3/uL; NRBC Flagged by Analyzer 0 % (0-5); Neutrophil # 1.72 X10^3/uL (2.7-7.7); Neutrophil % 67.5 % (47-70); POSITIVE COUNT YES; POSITIVE DIFFERENTIAL YES; Platelet Count 55 K/mm3 (150-450); RBC Distribution Width CV 13.8 % (11.6-14.6); RBC Distribution Width SD 44.3 fl (35.1-43.9); Red Blood Count 2.96 M/mm3 (4.2-5.4); White Blood Count 2.6 K/mm3 (4.4-11.0)
[2021-05-22 12:19] LABS: Differential Indicated SCAN CRITERIA MET
[2021-05-22 12:29] LABS: ALB/GLOB Ratio 0.8 RATIO (0.9-2.4); AST(SGOT) 33 U/L (15-37); Alanine Aminotransfer ALT/SGPT 25 U/L (13-56); Albumin, Serum 3.1 g/dL (3.2-5.0); Alkaline Phosphatase 156 U/L (45-117); Anion Gap 6 (5-15); BUN 31 mg/dL (7-18); BUN/Creat Ratio 17.8 RATIO (10-20); Calcium,Total 8.5 mg/dL (8.5-10.1); Chloride 107 mmol/L (98-107); Creatinine, Serum 1.74 mg/dL (0.55-1.02); EST Glomerular Filtration Rate 33 mL/min (>60); Est Glom Filt Rate - Afr Amer 39 mL/min (>60); Glucose 332 mg/dL (74-106); Potassium 3.6 mmol/L (3.5-5.1); Protein, Total 7.1 g/dL (6.4-8.2); Sodium Level 138 mmol/L (136-145)
[2021-05-22 12:39] LABS: Hypochromasia 1+; Platelet Estimate MKD DEC (ADEQ); Platelet Morphology LARGE
[2021-05-23 12:23] LABS: Pathologist Review Reviewed
== END ==
PROVIDERS: PCP Internal Medicine; Visit Provider Internal Medicine
DX: K75.4 Autoimmune hepatitis (principal); N30.00 Acute cystitis without hematuria; B96.89 Other specified bacterial agents as the cause of diseases classified elsewhere
CPT/HCPCS: 80053; 82140; 85025

== ENCOUNTER → 2021-05-22 11:56 | Outpatient (CLI) | payer MEDICARE, MEDICAID, SELFPAY ==
[2021-05-09 10:05] VITALS: BMI 27.2
== END ==
PROVIDERS: PCP Internal Medicine; Visit Provider Internal Medicine
DX: Z00.00 Encounter for general adult medical examination without abnormal findings (principal)

== ENCOUNTER 2021-06-01 03:10 | Inpatient (IN) | payer MEDICARE, MEDICAID, SELFPAY ==
[2021-05-09 10:05] VITALS: BMI 27.2
[2021-06-01] VITALS (13 sets, daily range): BP systolic 117–176; BP diastolic 55–78; PULSE 61–67; RESP 14–20; TEMP 35.5–37; O2SAT 99–100; BMI 30.6; BMI 27.5
--- NOTE | 2021-06-01 03:21 | RAD_ITS ---
STUDY: X-RAY CHEST REASON FOR EXAM: Female, 50 years old. ms change TECHNIQUE: Single AP portable view of the chest. COMPARISON: May 08, 2021 FINDINGS: The lungs are clear and expanded. There is no demonstrated pleural abnormality. There is mild cardiac enlargement. Normal mediastinum and sonny. Normal visualized pulmonary arteries. Normal visualized aortic arch and descending thoracic aorta. Normal visualized thoracic spine. Normal visualized ribs, clavicles, and shoulders. The visualized stent overlying the right upper quadrant suggesting a TIPS stent. RAD/Chest 1 View (Portable) IMPRESSION: Mild to moderate cardiomegaly no visualized focal infiltrate. Electronically Signed: Chelsea Artis MD at 5:36 EDT Tel , Service support ,
--- NOTE | 2021-06-01 03:21 | EKG12_ITS ---
Test Reason : DYSRHYTHMIA Blood Pressure : / mmHG Vent. Rate : 062 BPM Atrial Rate : 062 BPM P-R Int : 172 ms QRS Dur : 114 ms QT Int : 468 ms P-R-T Axes : 032 -31 063 degrees QTc Int : 475 ms Normal sinus rhythm Left axis deviation Incomplete left bundle branch block Moderate voltage criteria for LVH, may be normal variant Abnormal ECG Confirmed by BOBBY ZAMBRANO, ARY ([id number]), visual effects editor NORA MENDES ([id number]) on 06/02/2021 9:27:44 AM Referred By: NARA Confirmed By:KASI ROSALES MD
--- NOTE | 2021-06-01 03:23 | EDS_ITS ---
HPI History of Present Illness Chief Complaint: Hypoglycemia Informant: patient and EMS Limited: uncooperative Onset/Context/Timing Onset: Today Context: Sudden Onset Timing: Continuous Current Severity: Mild Maximum Severity: Moderate Narrative Narrative: 50-year-old female extensive past medical history including prior MA, hypertension, diabetes, etc. Patient presents with decreased mental status. Reportedly family called the squad due to hypoglycemia. Squad treated the patient prior to arrival. Her BG T now is around 132. Patient herself is a limited informant. Prior similar symptoms: Yes Recent Illness/Hospitalization: Yes [facility] Medical History Anemia Autoimmune hepatitis Bacteremia due to methicillin resistant Staphylococcus epidermidis Bipolar disorder Chronic pain Cirrhosis of liver Depression Diabetes mellitus Diabetes mellitus, type 2 Encephalopathy acute Reilly's thyroiditis Hepatic encephalopathy Hepatitis Hypertension Kidney disease MRSA bacteremia Pancreatitis Pancytopenia Peripheral neuropathy Schizoaffective disorder Severe sepsis Splenomegaly Home Medications magnesium oxide 400 mg PO BID 03/14/17 [History Last Taken 03/19/21] Xifaxan 550 mg PO BID 11/04/17 [History Last Taken 03/19/21] Latuda 40 mg PO QHS 03/20/21 [History Last Taken 03/19/21] pantoprazole 40 mg PO DAILY 03/20/21 [History Last Taken 03/19/21] prednisolone acetate 1 drp OPHTHALMIC (EYE) 4X/DAY 03/20/21 [History Last Taken Unknown] sertraline 50 mg PO DAILY 03/20/21 [History Last Taken 03/19/21] sucralfate [Carafate] 1 g PO ACHS 03/20/21 [History Last Taken 03/19/21] lisinopril 5 mg PO DAILY #30 tab 03/22/21 [Rx Last Taken Unknown] carvedilol 25 mg tablet 25 mg PO BID #180 tab 04/25/21 [Rx Last Taken Unknown] insulin lispro 100 unit/mL subcutaneous pen 8 unit SUBCUT TID 04/25/21 [History Last Taken Unknown] pregabalin 50 mg capsule 50 mg PO BID 04/25/21 [History Last Taken Unknown] ursodiol 300 mg capsule 300 mg PO BID 04/25/21 [History Last Taken Unknown] carbamazepine 100 mg PO BID 04/29/21 [History Last Taken Unknown] amlodipine 5 mg PO DAILY 05/08/21 [History Last Taken Unknown] ketorolac 1 drp EACH EYE 4X/DAY 05/08/21 [History Last Taken Unknown] lidocaine 1 applic TOPICAL DAILY 05/08/21 [History Last Taken Unknown] spironolactone 50 mg PO DAILY 05/08/21 [History Last Taken Unknown] zinc gluconate 50 mg PO DAILY 05/08/21 [History Last Taken Unknown] cefdinir 300 mg PO BID #10 cap 05/11/21 [Rx Last Taken Unknown] lactulose 20 g PO BID #1200 ml 05/11/21 [Rx Last Taken Unknown] Allergy/AdvReac Type Severity Reaction Status Date / Time adhesive Allergy Rash Verified 06/01/21 03:16 escitalopram oxalate Allergy blindness Verified 06/01/21 03:16 [From Lexapro] gabapentin [From Neurontin] Allergy Alan Verified 06/01/21 03:16 Jez's Syndrome lamotrigine [From Lamictal] Allergy Blindness Verified 06/01/21 03:16 Preservatives Allergy passed Uncoded 06/01/21 03:16 out, lungs deflated sour cream Allergy Anaphylaxis Uncoded 06/01/21 03:16 Family History Father CVA (cerebral vascular accident) Myocardial infarction Grandmother CHF (congestive heart failure) Sister Hypertension Surgical History H/O: hysterectomy History of abdominal paracentesis (10/2019) History of appendectomy History of cholecystectomy S/P TIPS (transjugular intrahepatic portosystemic shunt) Social History Smoking Status: Never smoker substance use type: does not use ROS ROS ED ROS Narrative Limited informant. Patient states she has had some recent nausea. Patient answers very few questions. Review of Systems ROS Unobtainable: due to mental status Constitutional Constitutional ED: Denies chills ENT ENT ED: Denies bleeding gums Cardiovascular Cardiovascular: Denies abdominal pain Respiratory/Chest Respiratory/Chest: Denies chest congestion Gastrointestinal Gastrointestinal: Denies abdominal pain Genitourinary Genitourinary ED: Denies flank pain Musculoskeletal Musculoskeletal: Denies neck pain Integumentary Denies jaundice Neurologic Neurologic: Denies abnormal movements Psychiatric Psychiatric: Denies hallucinations Endocrine Endocrinology: Denies deepening of the voice Hematologic/Lymphatic Hematologic/Lymphatic: Denies none Allergic/Immunologic Allergic/Immunologic ED: Denies lip swelling, mouth swelling or throat swelling EXAM Physical Exam Narrative Exam Narrative: Middle aged female presents due to reported hypoglycemia. She is a poor informant. I reviewed her recent past medical records and recent admissions. Reportedly the squad gave her medications to help bring her blood sugar up which is currently 132. She has extensive past medical history. I will get screening labs. She will be treated with some IV fluids. Const Vital Signs: 06/01/21 03:11 06/01/21 03:19 06/01/21 04:26 Temperature 96.6 F L 97.2 F L Temperature Source Temporal Temporal Pulse Rate 67 63 Respiratory Rate 18 20 H Respiratory Effort Normal Respiratory Pattern Normal Blood Pressure 176/78 H 164/67 H Blood Pressure Mean 110 99 Pulse Ox 99 100 Oxygen Delivery Method Room Air Positive well nourished, well developed and unkempt General Appearance ED: unkempt, well developed and easily aroused; Negative for diaphoretic or grossly edematous Exam Limitations: altered mental status; Negative for no limitations Nutritional Appearance: overweight HEENT Reports normocephalic, head/scalp atraumatic, hearing grossly normal bilaterally and external nose normal normocephalic, normal to inspection and atraumatic; Negative for trauma Eyes PERRL and no scleral icterus General Eye ED: Yes normal appearance of both eyes Pupil: PERRL Neck No nuchal rigidity, No no lymphadenopathy, supple, no meningeal signs and no JVD Lymph Lymphatic: no lymphadenopathy noted and no lymphedema noted Chest Wall inspection of chest normal and palpation of chest normal Chest: abnormal inspection of the chest and symmetrical chest wall rise; Negative for crepitus, sternal flail, mass, laceration or abrasion Resp normal respiratory effort, normal air movement, no use of accessory muscles, clear to auscultation bilaterally and percussion normal Cardio regular rate, regular rhythm, S1 normal heart sound, S2 normal heart sound, no murmurs, no rub, no gallops, no clicks and no JVD GI normal to inspection, nondistended, normoactive bowel sounds, soft to palpation, non-tender and non-distended no CVA tenderness and external exam normal Back/Spine no CVA tenderness, normal ROM, normal to inspection, thoracic and lumbar spine normal to inspection and no thoracic nor lumbar tenderness Extremity normal to inspection, normal capillary refill, no joint enlargement, no calf t enderness and no pedal edema Neuro No oriented x3 and moves all extremities Neuro Narrative: Patient has decreased mental status and appears generally weak. Psych thought process normal Appearance: unkempt Skin no rashes or lesions noted and no wounds MDM MDM MDM Narrative Medical decision making narrative: 50-year-old diabetic with extensive past medical history. Family called the squad due to low blood sugar. Squad arrived there was around 50. She was treated with medications and brought to the emergency department. Currently her mental status seems to be decreased. There is no signs of trauma. She had a recent CAT scan of her head at [facility] as necessary today. Screening labs are being obtained. Repeat exam patient is arousable and responsive but I think given her current overall medical condition and mental status which I think is primarily secondary to hepatic encephalopathy she is unable to be discharged home or care for self. I think she is a combination of acute hypoglycemia and hepatic encephalopathy. Currently the hypoglycemia has resolved. I will speak to the hospitalist about admission. Lab Data Attestation: I reviewed the patient's lab results. Lab results narrative: CBC shows white count 3.3. Hemoglobin 11. No acute abnormality. Chest x-ray portable single view interpreted by myself shows no acute abnormality. No infiltrate. Electrolytes show a gap of 6. Creatinine 1.2. Leukosis 151. Liver enzymes are unremarkable. She has a history of hepatic encephalopathy her ammonia level is elevated 247. Lactic acid is 1.7. Labs: Laboratory Results - last 24 hr 06/01/21 06/01/21 06/01/21 03:25 03:25 03:33 WBC 3.3 L RBC 3.67 L Hgb 11.0 L Hct 31.9 L MCV 86.9 MCH 30.0 MCHC 34.5 RDW Std Deviation 42.6 RDW Coeff of Valentina 13.5 Plt Count 83 L MPV 11.6 Immature Gran % (Auto) 0.300 Neut % (Auto) 74.9 H Lymph % (Auto) 12.3 L Coles % (Auto) 9.5 Eos % (Auto) 1.8 Baso % (Auto) 1.2 H Absolute Neuts (auto) 2.4 Absolute Lymphs (auto) 0.40 L Nucleated RBC % 0 [address] Review May foll Sodium 139 Potassium 4.5 Chloride 109 H Carbon Dioxide 24.0 Anion Gap 6 BUN 21 H Creatinine 1.20 H Estim Creat Clear Calc 51.34 Est GFR (MDRD) Af Amer 61 Est GFR (MDRD) Non-Af 50 L BUN/Creatinine Ratio 17.5 Glucose 151 H Lactic Acid Calcium 9.0 Total Bilirubin 1.20 H AST 46 H ALT 33 Alkaline Phosphatase 177 H Ammonia 247.0 H Total Protein 8.3 H Albumin 3.4 Globulin 4.9 H Albumin/Globulin Ratio 0.7 L 06/01/21 03:33 WBC RBC Hgb Hct MCV MCH MCHC RDW Std Deviation RDW Coeff of Valentina Plt Count MPV Immature Gran % (Auto) Neut % (Auto) Lymph % (Auto) Coles % (Auto) Eos % (Auto) Baso % (Auto) Absolute Neuts (auto) Absolute Lymphs (auto) Nucleated RBC % Diff Path Review Sodium Potassium Chloride Carbon Dioxide Anion Gap BUN Creatinine Estim Creat Clear Calc Est GFR (MDRD) Af Amer Est GFR (MDRD) Non-Af BUN/Creatinine Ratio Glucose Lactic Acid 1.7 Calcium Total Bilirubin AST ALT Alkaline Phosphatase Ammonia Total Protein Albumin Globulin Albumin/Globulin Ratio Radiography Chest X-Ray - ED: 1 View, Unchanged, Heart, Lungs, Mediastinum, Bony Structures, No Acute Disease, Chronic Changes, Cardiomegaly and CHF Rhythm Strip Rhythm Strip: Sinus Rhythm Rate: 62 Ectopy: None EKG Initial EKG: Attestation: I personally reviewed and interpreted this EKG as follows: Interpretation: Sinus Rhythm and No Acute Injury Pattern Comments: Normal sinus rhythm rate of 62. Incomplete left bundle branch block and LVH. No acute signs of ischemia. Prior EKG tracings: not available for review Discharge Plan Dx/Rx/DC Orders Clinical Impression: Acute metabolic encephalopathy due to hypoglycemia, Acute hepatic encephalopathy Disposition Disposition: Acute Care [facility]
[2021-06-01 03:41] LABS: Absolute Neutrophil Count 2.4 X10^3/uL (2.0-7.7); Basophil# 0.04 X10^3/uL; Basophil% 1.2 % (0-1); Eosinophil# 0.06 X10^3/uL; Eosinophils% 1.8 % (0-5); Hematocrit 31.9 % (37-47); Lymphocyte % 12.3 % (19-41); Mean Corp Hgb Conc 34.5 g/dL (32-36); Mean Corpuscular Volume 86.9 fL (81-99); Mean Platelet Vol. 11.6 fl (6.2-12.0); Monocyte# 0.31 X10^3/uL; Monocyte% 9.5 % (0-10); NRBC Flagged by Analyzer 0 % (0-5); Neutrophil # 2.44 X10^3/uL (2.7-7.7); Neutrophil % 74.9 % (47-70); POSITIVE COUNT YES; POSITIVE DIFFERENTIAL YES; Platelet Count 83 K/mm3 (150-450); RBC Distribution Width CV 13.5 % (11.6-14.6); RBC Distribution Width SD 42.6 fl (35.1-43.9); Red Blood Count 3.67 M/mm3 (4.2-5.4); White Blood Count 3.3 K/mm3 (4.4-11.0)
[2021-06-01 03:43] LABS: Differential Indicated SCAN CRITERIA MET
[2021-06-01 03:59] LABS: ALB/GLOB Ratio 0.7 RATIO (0.9-2.4); AST(SGOT) 46 U/L (15-37); Alanine Aminotransfer ALT/SGPT 33 U/L (13-56); Albumin, Serum 3.4 g/dL (3.2-5.0); Alkaline Phosphatase 177 U/L (45-117); Anion Gap 6 (5-15); BUN 21 mg/dL (7-18); BUN/Creat Ratio 17.5 RATIO (10-20); Chloride 109 mmol/L (98-107); EST Glomerular Filtration Rate 50 mL/min (>60); Est Glom Filt Rate - Afr Amer 61 mL/min (>60); Estimated Creatinine Clearance 51.34 ml/min; Globulin 4.9 g/dL (2.2-4.2); Glucose 151 mg/dL (74-106); Potassium 4.5 mmol/L (3.5-5.1); Protein, Total 8.3 g/dL (6.4-8.2); Sodium Level 139 mmol/L (136-145)
[2021-06-01 04:13] LABS: Lactic Acid 1.7 mmol/L (0.4-1.9)
--- NOTE | 2021-06-01 04:28 | HP.PCM.HOS_ITS ---
HPI - General General Date of Admission: 06/01/21 HPI Narrative ANA GARCÍA, is a 50 F with an extensive PMH as outlined who presents with a complaint of altered mental status. Family called the squad o/a of hypoglycemia. Blood sugars were 50 and squad gave her an amp of dextrose. BLood sugar was up to 82 on admission. However, on arrival in the ED, she was found to have markedly elevated ammonia level of 247. Patient wasnt able to give much history due to altered mental status. CBC showed hb of 11 with wbc of 3.3 and platelets of 83. Chemistry showed Cr of 1.2, glucose of 151 and total bilirubin of 1.2. She is being admitted to be managed for acute hepatic encephalopathy. [facility] Medical History Anemia Autoimmune hepatitis Bacteremia due to methicillin resistant Staphylococcus epidermidis Bipolar disorder Chronic pain Cirrhosis of liver Depression Diabetes mellitus Diabetes mellitus, type 2 Encephalopathy acute Reilly's thyroiditis Hepatic encephalopathy Hepatitis Hypertension Kidney disease MRSA bacteremia Pancreatitis Pancytopenia Peripheral neuropathy Schizoaffective disorder Severe sepsis Splenomegaly Home Medications magnesium oxide 400 mg PO BID 03/14/17 [History Last Taken 03/19/21] Xifaxan 550 mg PO BID 11/04/17 [History Last Taken 03/19/21] Latuda 40 mg PO QHS 03/20/21 [History Last Taken 03/19/21] pantoprazole 40 mg PO DAILY 03/20/21 [History Last Taken 03/19/21] prednisolone acetate 1 drp OPHTHALMIC (EYE) 4X/DAY 03/20/21 [History Last Taken Unknown] sertraline 50 mg PO DAILY 03/20/21 [History Last Taken 03/19/21] sucralfate [Carafate] 1 g PO ACHS 03/20/21 [History Last Taken 03/19/21] lisinopril 5 mg PO DAILY #30 tab 03/22/21 [Rx Last Taken Unknown] carvedilol 25 mg tablet 25 mg PO BID #180 tab 04/25/21 [Rx Last Taken Unknown] insulin lispro 100 unit/mL subcutaneous pen 8 unit SUBCUT TID 04/25/21 [History Last Taken Unknown] pregabalin 50 mg capsule 50 mg PO BID 04/25/21 [History Last Taken Unknown] ursodiol 300 mg capsule 300 mg PO BID 04/25/21 [History Last Taken Unknown] carbamazepine 100 mg PO BID 04/29/21 [History Last Taken Unknown] amlodipine 5 mg PO DAILY 05/08/21 [History Last Taken Unknown] ketorolac 1 drp EACH EYE 4X/DAY 05/08/21 [History Last Taken Unknown] lidocaine 1 applic TOPICAL DAILY 05/08/21 [History Last Taken Unknown] spironolactone 50 mg PO DAILY 05/08/21 [History Last Taken Unknown] zinc gluconate 50 mg PO DAILY 05/08/21 [History Last Taken Unknown] cefdinir 300 mg PO BID #10 cap 05/11/21 [Rx Last Taken Unknown] lactulose 20 g PO BID #1200 ml 05/11/21 [Rx Last Taken Unknown] Allergy/AdvReac Type Severity Reaction Status Date / Time adhesive Allergy Rash Verified 06/01/21 03:16 escitalopram oxalate Allergy blindness Verified 06/01/21 03:16 [From Lexapro] gabapentin [From Neurontin] Allergy Alan Verified 06/01/21 03:16 Jez's Syndrome lamotrigine [From Lamictal] Allergy Blindness Verified 06/01/21 03:16 Preservatives Allergy passed Uncoded 06/01/21 03:16 out, lungs deflated sour cream Allergy Anaphylaxis Uncoded 06/01/21 03:16 Family History Father CVA (cerebral vascular accident) Myocardial infarction Grandmother CHF (congestive heart failure) Sister Hypertension Surgical History H/O: hysterectomy History of abdominal paracentesis (10/2019) History of appendectomy History of cholecystectomy S/P TIPS (transjugular intrahepatic portosystemic shunt) Social History Smoking Status: Never smoker substance use type: does not use ROS Review of Systems ROS Unobtainable: due to encephalopathy Vital Signs Vital Signs Vital Signs: 06/01/21 03:11 06/01/21 03:19 06/01/21 04:26 Temperature 96.6 F L 97.2 F L Temperature Source Temporal Temporal Pulse Rate 67 63 Respiratory Rate 18 20 H Respiratory Effort Normal Respiratory Pattern Normal Blood Pressure 176/78 H 164/67 H Blood Pressure Mean 110 99 Pulse Ox 99 100 Oxygen Delivery Method Room Air Weight Weight: 189 lb 13.088 oz Body Mass Index (BMI) 30.6 Physical Exam Const alert Orientation / Consciousness: disoriented and lethargic HEENT normocephalic, head/scalp atraumatic and hearing grossly normal bilaterally HEENT Narrative: dry mucosal membranes Eyes PERRL, EOMs intact bilaterally and conjunctivae normal Neck no lymphadenopathy, supple and no carotid bruits Resp normal respiratory effort, no retractions, no use of accessory muscles and clear to auscultation bilaterally Cardio regular rate, regular rhythm, S1 normal heart sound, S2 normal heart sound and no murmurs GI normal to inspection, nondistended, normoactive bowel sounds, soft to palpation, non-tender and non-distended Extremity normal to inspection, full ROM and no clubbing, cyanosis or edema Peripheral Pulses: Yes pulses 2+ throughout Skin no rashes or lesions noted Neuro Neuro Narrative: awake, lethargic, moves all extremities spontaneously, positive hepatic flap Psych Psych Narrative: lethargic Results Lab / Micro Data Result Diagrams: 06/01/21 03:25 06/01/21 03:25 Labs: Laboratory Results - last 24 hr 06/01/21 03:25: WBC 3.3 L, RBC 3.67 L, Hgb 11.0 L, Hct 31.9 L, MCV 86.9, MCH 30.0, MCHC 34.5, RDW Std Deviation 42.6, RDW Coeff of Valentina 13.5, Plt Count 83 L, MPV 11.6, Immature Gran % (Auto) 0.300, Neut % (Auto) 74.9 H, Lymph % (Auto) 12.3 L, Taney % (Auto) 9.5, Eos % (Auto) 1.8, Baso % (Auto) 1.2 H, Absolute Neuts (auto) 2.4, Absolute Lymphs (auto) 0.40 L, Nucleated RBC % 0, Diff Path Review March06/01/21 03:25: Sodium 139, Potassium 4.5, Chloride 109 H, Carbon Dioxide 24.0, Anion Gap 6, BUN 21 H, Creatinine 1.20 H, Estim Creat Clear Calc 51.34, Est GFR (MDRD) Af Amer 61, Est GFR (MDRD) Non-Af 50 L, BUN/Creatinine Ratio 17.5, Glucose 151 H, Calcium 9.0, Total Bilirubin 1.20 H, AST 46 H, ALT 33, Alkaline Phosphatase 177 H, Total Protein 8.3 H, Albumin 3.4, Globulin 4.9 H, Albumin/Globulin Ratio 0.7 L 06/01/21 03:33: Ammonia 247.0 H 06/01/21 03:33: Lactic Acid 1.7 Rhythm Strip Rhythm Strip: Sinus Rhythm Rate: 62 Ectopy: None Assessment & Plan Assessment/Plan (1) Acute hepatic encephalopathy: PLAN: #Acute hepatic encephalopathy * Patient has a history of cirrhosis due to autoimmune hepatitis and is status post a TIPS procedure * Ammonia is elevated at 247/ammonia level being around 117 * Admit to PCU. Started on lactulose and aim for 2-3 loose stools daily. * PT OT consult, fall precautions. * Aspiration precautions in light of metabolic encephalopathy. * During her previous admission, she was intubated to protect her airway. * Also continue rifaximin. * check urinalysis; during her last admission, she was treated for UTI, and dis charged home on oral antibiotics-cefdinir. Unclear if she did take this * #History of autoimmune hepatitis * On rifaximin and lactulose as above. * #Type 2 diabetes mellitus * Was found to be hypoglycemic on admission as well with blood sugar of around 50. This is responded to dextrose administration. * Hold diabetes medication and start on D5 NS infusion. * #Chronic pancytopenia: This is chronic. Likely due to liver disease. Will monitor. #Hypertension: On Coreg and amlodipine. Also on lisinopril and Aldactone. IV hydralazine prn #Anxiety and depression: Stable #GERD: On PPI and Carafate #Depression: on carbamazepine and latuda DVT prophylaxis: SCDs. Charges/Coding Visit Charges Inpatient E&M: 19803 Init Hosp L3
[2021-06-01 04:41] LABS: Bedside Glucose 173 mg/dL (70-110)
--- NOTE | 2021-06-01 04:52 | ED.RN ---
report called to joesph louis.
[2021-06-01 05:07] LABS: Bacteria 0 SEEN /hpf (None Seen); Mucous, Urine 0 SEEN /hpf (<or=2+); Red Blood Cells-Urine 0 SEEN /hpf (0-5); Squamous Epithelial Cells - UA 0 SEEN /hpf (5-10)
[2021-06-01 05:08] LABS: Color, Urine Yellow (Yellow); Glucose, Dipstick 50 mg/dl (Normal); Ketone-Dipstick Negative (Negative); Leukocyte Esterase-Dipstick 25 /ul (Negative); Nitrite-Dipstick Negative (Negative); Occult Blood-Urine Negative /ul (Negative); Protein-Dipstick 30 mg/dl (Negative); Urine Bilirubin Dipstick Negative (Negative); Urine Clarity Sl. Cloudy (Clear); Urine Urobilinogen Normal (Normal); Urine pH 6.5 (5.0 - 8.0)
[2021-06-01 05:14] LABS: White Blood Cells 0-5 SEEN /hpf (0-5)
[2021-06-01] MEDS: Dextrose 5%/0.9% NaCl 1,000 ML 75 ML IV (05:45)
[2021-06-01 06:20] LABS: Absolute Lymphocyte Count 0.39 X10^3/uL (0.83-4.51); Absolute Neutrophil Count 2.5 X10^3/uL (2.0-7.7); Basophil# 0.02 X10^3/uL; Basophil% 0.6 % (0-1); Eosinophil# 0.04 X10^3/uL; Eosinophils% 1.2 % (0-5); Hematocrit 27.7 % (37-47); Hemoglobin 9.6 g/dL (12.0-15.0); Lymphocyte # 0.39 X10^3/ul (0.83-4.51); Mean Corp Hgb Conc 34.7 g/dL (32-36); Mean Corpuscular Hgb 29.9 pg (27.0-32.0); Mean Corpuscular Volume 86.3 fL (81-99); Mean Platelet Vol. 11.2 fl (6.2-12.0); Monocyte% 9.2 % (0-10); NRBC Flagged by Analyzer 0 % (0-5); Neutrophil # 2.49 X10^3/uL (2.7-7.7); Neutrophil % 76.7 % (47-70); POSITIVE COUNT YES; POSITIVE DIFFERENTIAL YES; Platelet Count 68 K/mm3 (150-450); RBC Distribution Width CV 13.2 % (11.6-14.6); RBC Distribution Width SD 42.1 fl (35.1-43.9); Red Blood Count 3.21 M/mm3 (4.2-5.4); White Blood Count 3.3 K/mm3 (4.4-11.0)
[2021-06-01 06:30] LABS: Differential Indicated SCAN CRITERIA MET
[2021-06-01 06:35] LABS: ALB/GLOB Ratio 0.7 RATIO (0.9-2.4); AST(SGOT) 38 U/L (15-37); Alanine Aminotransfer ALT/SGPT 31 U/L (13-56); Albumin, Serum 3.1 g/dL (3.2-5.0); Alkaline Phosphatase 155 U/L (45-117); Anion Gap 5 (5-15); BUN 23 mg/dL (7-18); BUN/Creat Ratio 20.7 RATIO (10-20); Calcium,Total 8.5 mg/dL (8.5-10.1); Chloride 109 mmol/L (98-107); Creatinine, Serum 1.11 mg/dL (0.55-1.02); EST Glomerular Filtration Rate 55 mL/min (>60); Est Glom Filt Rate - Afr Amer 66 mL/min (>60); Estimated Creatinine Clearance 61.96 ml/min; Globulin 4.4 g/dL (2.2-4.2); Glucose 190 mg/dL (74-106); Potassium 4.2 mmol/L (3.5-5.1); Protein, Total 7.5 g/dL (6.4-8.2); Sodium Level 140 mmol/L (136-145)
--- NOTE | 2021-06-01 07:53 | RAD_ITS ---
STUDY: X-RAY - ABDOMEN/PELVIS REASON FOR EXAM: Female, 50 years old. ng placement TECHNIQUE: Single AP view of the abdomen / pelvis. COMPARISON: None. FINDINGS: The tip of the nasogastric tube is in the distal portion of the body of the stomach. There is an unremarkable bowel gas pattern. A covered stent is seen within the portal vein most likely from prior TIPS. Normal soft tissue structures. Normal visualized osseous structures. RAD/Abdomen Single View (Portable) IMPRESSION: The tip of the nasogastric tube is in the distal portion of the body of the stomach. Electronically Signed: Dash Shin MD at 8:56 EDT , Service support ,
--- NOTE | 2021-06-01 09:35 | CASEMGMT ---
Social Work Note SW reviewed chart. Pt has CM Hazel Bunn through [facility] ([phone]). SW placed a call to Hazel Bunn and updated her on pt's admission to [facility]. Josefa Castillo MSW, FIREARMS EXPERT
--- NOTE | 2021-06-01 09:40 | CASEMGMT ---
Social Work Note Per supervisor grinding questions, pt has completed HCPOA and LW and provided documents to [facility]. SW reviewed chart, both HCPOA and LW are on file. Josefa Castillo VICE PRESIDENT OF NURSING, SOUND ART INSTRUCTOR
[2021-06-01] MEDS: Lactulose 20 GM/30 ML UDC PO ×3 (09:49→17:17)
[2021-06-01] MEDS: Magnesium Chloride 64 MG Delay Rel.Tablet 128 MG PO ×2 (09:49→21:32)
[2021-06-01] MEDS: Pantoprazole Sodium 40 MG Tablet PO (09:50)
[2021-06-01] MEDS: amLODIPine 5 MG Tablet PO (09:50)
[2021-06-01] MEDS: Spironolactone 50 MG Tablet PO (09:50)
[2021-06-01] MEDS: Ursodiol 250 MG Tablet PO ×2 (09:50→21:35)
[2021-06-01] MEDS: rifAXIMin 550 MG Tablet PO ×2 (09:50→21:34)
[2021-06-01] MEDS: Sertraline 50 MG Tablet PO (09:50)
[2021-06-01] MEDS: Lisinopril 5 MG Tablet PO (09:50)
[2021-06-01] MEDS: Carvedilol 25 MG Tablet PO ×2 (09:50→21:32)
[2021-06-01] MEDS: prednisoLONE eye drops (5 mL) 1 DROP OPTH.BTL 1 DRP OPHTHALMIC ×4 (10:09→21:32)
[2021-06-01] MEDS: Insulin Lispro 100 UNIT/ML INSULN.PEN SC ×3 (11:49→21:45)
[2021-06-01 11:56] LABS: Bedside Glucose 263 mg/dL (70-110)
[2021-06-01 13:45] LABS: Pathologist Review Reviewed
[2021-06-01 13:45] LABS: Pathologist Review Reviewed
--- NOTE | 2021-06-01 14:08 | CASEMGMT ---
Readmission chart review: Pt was initially admitted 05/08-05/11/21 for Hepatic encephalopathy to the ICU and was intubated. Pt was active with [facility] already. Pt had been referred for palliative c/s back in February but had declined at that time. Pt qualified for palliative c/s again but hospitalist initially declined but then spoke with pt and pt was agreeable on day of discharge. Referral was faxed and per [facility], pt did agree to palliative once home. Order placed for them to come see pt here. Pt returned to [facility] ED on 06/01/21 for AMS w/ sugar of 50 at home but even once D50 given, pt was still confused. Pt admitted to ICU again last pm but then tranferred down to PCU. Pt is still active with [facility] SN. Pt was admitted for Acute hepatic encephalopathy. CM to follow for any further discharge planning/needs. Order placed for [facility] at discharge. SStkelly MORRISON CM
[2021-06-01] MEDS: carBAMazepine 200 MG Tablet 100 MG PO ×2 (14:13→21:34)
[2021-06-01] MEDS: 0.9% Normal Saline 1,000 ML 100 ML IV (17:15)
[2021-06-01 17:30] LABS: Bedside Glucose 226 mg/dL (70-110)
--- NOTE | 2021-06-01 19:41 | PCM.HOSP.N ---
Hospitalist Note Patient was seen and examined briefly today, I also talked with speech therapy about her care. After talking with speech therapy this afternoon, I made the decision to pull the patient's NG tube, patient appeared alert today to answer simple questions and I think she is safe for oral intake. I have made the decision to increase the patient's lactulose. Patient will be reevaluated tomorrow
[2021-06-01] MEDS: Sucralfate 1 GM Tablet PO (21:32)
[2021-06-01 22:20] LABS: Bedside Glucose 301 mg/dL (70-110)
[2021-06-02] MEDS: 0.9% Normal Saline 1,000 ML 100 ML IV (02:58)
[2021-06-02 03:00] VITALS: PULSE 68
[2021-06-02 04:10] VITALS: BP 112/50; PULSE 66; RESP 18; TEMP 36.9; O2SAT 98
[2021-06-02] MEDS: Lactulose 20 GM/30 ML UDC PO ×2 (05:06→12:00)
[2021-06-02] MEDS: Sucralfate 1 GM Tablet PO ×2 (05:07→12:04)
[2021-06-02] MEDS: Insulin Lispro 100 UNIT/ML INSULN.PEN SC ×2 (06:53→12:04)
[2021-06-02 06:59] VITALS: PULSE 68
[2021-06-02 07:00] LABS: Bedside Glucose 190 mg/dL (70-110)
[2021-06-02 08:53] VITALS: BP 162/78; PULSE 67; RESP 16; TEMP 36.9; O2SAT 100
[2021-06-02] MEDS: Sertraline 50 MG Tablet PO (09:01)
[2021-06-02] MEDS: carBAMazepine 200 MG Tablet 100 MG PO (09:01)
[2021-06-02] MEDS: Ursodiol 250 MG Tablet PO (09:02)
[2021-06-02] MEDS: Lisinopril 5 MG Tablet PO (09:02)
[2021-06-02] MEDS: rifAXIMin 550 MG Tablet PO (09:02)
[2021-06-02] MEDS: prednisoLONE eye drops (5 mL) 1 DROP OPTH.BTL 1 DRP OPHTHALMIC ×2 (09:03→14:39)
[2021-06-02] MEDS: Magnesium Chloride 64 MG Delay Rel.Tablet 128 MG PO (09:11)
[2021-06-02] MEDS: amLODIPine 5 MG Tablet PO (09:11)
[2021-06-02] MEDS: Spironolactone 50 MG Tablet PO (09:11)
[2021-06-02] MEDS: Carvedilol 25 MG Tablet PO (09:11)
[2021-06-02] MEDS: Pantoprazole Sodium 40 MG Tablet PO (09:11)
--- NOTE | 2021-06-02 10:19 | HP.PCM.PAL_ITS ---
HPI - General General Date of Admission: 06/01/21 HPI Narrative ANA GARCÍA, is a 50 F who had just recently signed with Palliative care that presented back to the ER on 06/01/21 with altered mental status related to hypoglycemia. Blood sugar was 50. and EMT gave an amp of dextrose. Blood sugar was 132 in the Er. Noted to have markly elevated ammonia level of 247. Was unable to give history due to mental status. CBC showed Hb of 11 with WBC of 3.3 and platelets of 83. Chemistry showed Cr of 1.2, glucose of 151 and total bilirubin of 1.2. She was admitted to be managed for acute hepatic encephalopathy. Past medical history listed below: Diabetic medications were held and D5 NS infusion was started. She has autoimmune hepatitis with status post TIPS procedure. Started on Lactulose and goal is for 203 stools per day. She had Peg tube placed yesterday briefly for medications. Pulled and ST consult ordered. Currently on a clear liquid diet. Seen today laying in her hospital bed. Alert, oriented and pleasant. Edentulous with a hoarse voice. Reports that she will have an ST eval before discharge. ENT had told her that she possibly had some paralysis in vocal cords from the vent last admission. Reports that she has had this nausea and vomiting for the last week. States she will take her meds then the lactulose then throw up not long after. Zofran was ineffective due to not keep it down. Did not report to the PCP. States that she frequently forgets to check her sugars or take her insulin on time. Denies any current abdominal pain, does have neuropathy in knees/ and inner thighs that makes it difficult to sleep. 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 Currently takes Lyrica. Scores pain as 10/10 at night. Has issues with sleep, but fearful of not waking up due to multiple instances of unresponsiveness. Typically goes to bed at 4am and takes multiple naps during the day. Has only tried Tylenol PM but not helpful for sleep. Has some itching but it does not appear to be affecting quality of life at this time. Patient lives with her significant other, Sj, and her 16-year-old autistic son. She is typically independent and able to ambulate stairs, however notes that she stays in her room most of the day. She does not have a living will or POA. Her significant other transports her to her doctor's appointments. She would prefer visits when her is at work. works even days for May and off days for June. She does have a raised toilet seat, shower chair, grab bars, walker, glucometer, and testing supplies at home. Patient has psychological issues and follows with Dr. Moreno (psychiatrist) at [facility] on a routine basis. Patient is often tearful with conversation with staff. [facility] Medical History (Updated 06/02/21 @ 11:14 by Amelia Sinha NP-Art) Anemia Autoimmune hepatitis Bacteremia due to methicillin resistant Staphylococcus epidermidis Bipolar disorder Chronic pain Cirrhosis of liver Depression Diabetes mellitus Diabetes mellitus, type 2 Encephalopathy acute Reilly's thyroiditis Hepatic encephalopathy Hepatitis Hypertension Kidney disease MRSA bacteremia Pancreatitis Pancytopenia Peripheral neuropathy Schizoaffective disorder Severe sepsis Splenomegaly Home Medications magnesium oxide 400 mg PO BID 03/14/17 [History Last Taken 03/19/21] Xifaxan 550 mg PO BID 11/04/17 [History Last Taken 03/19/21] Latuda 40 mg PO QHS 03/20/21 [History Last Taken 03/19/21] pantoprazole 40 mg PO DAILY 03/20/21 [History Last Taken 03/19/21] prednisolone acetate 1 drp OPHTHALMIC (EYE) 4X/DAY 03/20/21 [History Last Taken Unknown] sertraline 50 mg PO DAILY 03/20/21 [History Last Taken 03/19/21] sucralfate [Carafate] 1 g PO ACHS 03/20/21 [History Last Taken 03/19/21] lisinopril 5 mg PO DAILY #30 tab 03/22/21 [Rx Last Taken Unknown] carvedilol 25 mg tablet 25 mg PO BID #180 tab 04/25/21 [Rx Last Taken Unknown] insulin lispro 100 unit/mL subcutaneous pen 8 unit SUBCUT TID 04/25/21 [History Last Taken Unknown] pregabalin 50 mg capsule 50 mg PO BID 04/25/21 [History Last Taken Unknown] ursodiol 300 mg capsule 300 mg PO BID 04/25/21 [History Last Taken Unknown] carbamazepine 100 mg PO BID 04/29/21 [History Last Taken Unknown] amlodipine 5 mg PO DAILY 05/08/21 [History Last Taken Unknown] ketorolac 1 drp EACH EYE 4X/DAY 05/08/21 [History Last Taken Unknown] lidocaine 1 applic TOPICAL DAILY 05/08/21 [History Last Taken Unknown] spironolactone 50 mg PO DAILY 05/08/21 [History Last Taken Unknown] zinc gluconate 50 mg PO DAILY 05/08/21 [History Last Taken Unknown] cefdinir 300 mg PO BID #10 cap 05/11/21 [Rx Last Taken Unknown] lactulose 20 g PO BID #1200 ml 05/11/21 [Rx Last Taken Unknown] Allergy/AdvReac Type Severity Reaction Status Date / Time adhesive Allergy Rash Verified 06/01/21 03:16 escitalopram oxalate Allergy blindness Verified 06/01/21 03:16 [From Lexapro] gabapentin [From Neurontin] Allergy Alan Verified 06/01/21 03:16 Jez's Syndrome lamotrigine [From Lamictal] Allergy Blindness Verified 06/01/21 03:16 Preservatives Allergy passed Uncoded 06/01/21 03:16 out, lungs deflated sour cream Allergy Anaphylaxis Uncoded 06/01/21 03:16 Family History Father CVA (cerebral vascular accident) Myocardial infarction Grandmother CHF (congestive heart failure) Sister Hypertension Surgical History H/O: hysterectomy History of abdominal paracentesis (10/2019) History of appendectomy History of cholecystectomy S/P TIPS (transjugular intrahepatic portosystemic shunt) Social History Smoking Status: Never smoker substance use type: does not use Physical Exam Const alert, oriented x3 and no apparent distress General Appearance: cooperative and comfortable Orientation / Consciousness: awake, oriented to person, oriented to place and oriented to time Resp normal respiratory effort and normal air movement Effort and Inspection: able to speak in complete sentences Auscultation: clear to auscultation bilaterally Cardio regular rate, regular rhythm, S1 normal heart sound, S2 normal heart sound, no murmurs and no rub Peripheral Pulses: pulses 2+ throughout GI normal to inspection, nondistended, normoactive bowel sounds, soft to palpation, non-tender and non-distended Extremity normal to inspection and full ROM Neuro oriented x3 and CN's II-XII intact bilaterally Psych thought process normal, cooperative and affect normal Speech: normal speech and other voice is hoarse Assessment & Plan Assessment/Plan (1) Acute hepatic encephalopathy: (2) Diabetes mellitus, type 2: QUALIFIERS: Diabetes mellitus long term care administrator insulin use: unspecified long term care administrator insulin use status (3) Chronic pain: QUALIFIERS: Chronic pain type: chronic pain syndrome Qualified Code(s): G89.4 - Chronic pain syndrome (4) Autoimmune hepatitis: (5) Acute metabolic encephalopathy due to hypoglycemia: PLAN: 50-year-old with history of autoimmune hepatitis, liver cirrhosis with varices, seen today as Palliative patient readmission to the hospital for weakness r/t n/v with encephalopathy and liver cirrhosis. 1. Weakness and debility: She is ambulatory at home but chooses to have low activity level. Recent encephalopathy related to her liver cirrhosis. No current bleeding varices. She is getting therapy. Also has renal disease with acute kidney injury upon presentation. 2. Chronic pain: Only reporting neuropathic currently. Described as 10/10 neuropathy from thighs/ knees to feet. She has been on multiple sedating medications and had possible toxicity when she presented to the ER with encephalopathy. Would be very cautious with any sedating medications. Currently has Tylenol 650 every 8 as needed, Lyrica and Carbamazepine ER 100mg BID. May consider increasing Lyrica, pending stasis of ammonia levels. Has Zofran for nausea but has been ineffective. May consider low dose Ativan or Haldol considering the benefits outweigh the risks. With correction of ammonia levels, may decrease nausea. 2. Confusion: Improved but appears to reoccur, being treated with lactulose and rifaximin. Follow-up with specialist at [place] 3. History of cellulitis/T2 DM/Reilly thyroiditis/schizoaffective disorde r/bipolar/splenomegaly/CKD: Complicates overall care and management, defer management to PCP and psychiatrist. Thank you for the opportunity to participate in this patient's care, please do not hesitate to contact [facility] with any further questions or concerns. Palliative direct line is [phone]. We will have follow up phone call after discharge to schedule follow up visit. Greater than 50% of F2F visit dedicated to education and counseling of palliative care services, medications, comorbid conditions and potential assistance with management, and plan of care moving forward. All questions asked and answered. Start time: 1000 End time: 1100
[2021-06-02 11:29] VITALS: PULSE 66
[2021-06-02 12:16] LABS: Bedside Glucose 280 mg/dL (70-110)
--- NOTE | 2021-06-02 12:39 | PCM.DC ---
Discharge Instructions Diet Discharge Diet: 1800 Calorie Control Diet Activity Discharge Activity: Return to Normal Activity Follow Up Care Test Results: Test results from this visit will be discussed in further detail at your follow-up appointment, if applicable. Discharge Plan Admission Admit Date/Time: 06/01/21 04:50 Primary Reason for Your Visit: hepatic encephalopathy Attending Provider: David Benton Primary Care Provider: Janay Canchola Instructions Additional Instructions / Restrictions: You should have between 4-6 bowel movements per day, you may need to reduce your lactulose to twice a day if you end up having more bowel movements than these. Discharge Orders/Prescriptions Prescriptions: Continued carvedilol 25 mg tablet 25 mg PO BID Qty: 180 RF: 3 magnesium oxide 400 MG tablet 400 mg PO BID RF: 0 Xifaxan 550 MG tablet 550 mg PO BID RF: 0 pregabalin 50 mg capsule 50 mg PO BID RF: 0 sucralfate [Carafate] 1 gram Tablet 1 g PO ACHS RF: 0 pantoprazole 40 mg Tablet,Delayed Release (Dr/Ec) 40 mg PO DAILY RF: 0 sertraline 50 mg Tablet 50 mg PO DAILY RF: 0 Latuda 40 mg tablet 40 mg PO QHS RF: 0 prednisolone acetate 1 % drops,suspension 1 drp OPHTHALMIC (EYE) 4X/DAY RF: 0 lisinopril 5 mg tablet 5 mg PO DAILY Qty: 30 RF: 0 ursodiol 300 mg capsule 300 mg PO BID RF: 0 insulin lispro [Humalog KwikPen Insulin] 100 unit/mL insulin pen 8 unit SUBCUT TID RF: 0 carbamazepine 100 mg Tablet Extended Release 12 Hr 100 mg PO BID RF: 0 ketorolac 0.5 % drops 1 drp EACH EYE 4X/DAY RF: 0 zinc gluconate 50 mg tablet 50 mg PO DAILY RF: 0 spironolactone 50 mg tablet 50 mg PO DAILY RF: 0 lidocaine 5 % ointment 1 applic topical DAILY RF: 0 amlodipine 5 mg tablet 5 mg PO DAILY RF: 0 Changed lactulose 20 gram/30 mL solution 20 g PO TID Qty: 1200 RF: 0 Discontinued cefdinir 300 mg capsule 300 mg PO BID Qty: 10 RF: 0 Referrals / Follow Up: Janay Canchola MD [Primary Care Provider] - Within 2 Weeks Disposition Disposition (needs filled in before D/C Order can be placed): Home Health Service
--- NOTE | 2021-06-02 12:49 | CASEMGMT ---
LENARD order evi and Ashlee at [facility] aware that pt will be discharging today, voices understanding. Stuart MORRISON CM
[2021-06-02 13:01] LABS: Bedside Glucose 132 mg/dL (70-110)
--- NOTE | 2021-06-02 14:18 | PHA.DC.MR ---
Pharmacy Service has performed discharge medication reconciliation for this patient. The patient's discharge medication list was reviewed for discrepancies and discrepancies were resolved. Home Medications magnesium oxide 400 mg PO BID 03/14/17 Xifaxan 550 mg PO BID 11/04/17 Latuda 40 mg PO QHS 03/20/21 pantoprazole 40 mg PO DAILY 03/20/21 prednisolone acetate 1 drp OPHTHALMIC (EYE) 4X/DAY 03/20/21 sertraline 50 mg PO DAILY 03/20/21 sucralfate [Carafate] 1 g PO ACHS 03/20/21 lisinopril 5 mg PO DAILY #30 tab 03/22/21 carvedilol 25 mg tablet 25 mg PO BID #180 tab 04/25/21 insulin lispro 100 unit/mL subcutaneous pen 8 unit SUBCUT TID 04/25/21 pregabalin 50 mg capsule 50 mg PO BID 04/25/21 ursodiol 300 mg capsule 300 mg PO BID 04/25/21 carbamazepine 100 mg PO BID 04/29/21 amlodipine 5 mg PO DAILY 05/08/21 ketorolac 1 drp EACH EYE 4X/DAY 05/08/21 lidocaine 1 applic TOPICAL DAILY 05/08/21 spironolactone 50 mg PO DAILY 05/08/21 zinc gluconate 50 mg PO DAILY 05/08/21 lactulose 20 g PO TID #1200 ml 06/02/21
[2021-06-02 14:36] VITALS: BP 119/65; PULSE 63; RESP 16; TEMP 36.9; O2SAT 100
--- NOTE | 2021-06-02 15:32 | CASEMGMT ---
Message from [facility], pt's Timothyannetta MELLO, requesting call. Call to [facility] and updated that pt to discharge today, voices understanding and requests d/c summ/instructions to be faxed to her at this time. Fax# is [phone]. Stuart MORRISON CM
--- NOTE | 2021-06-03 17:15 | PCM.DC.SUM ---
Providers Date of Admission: 06/01/21 Date of Discharge: 06/02/21 Primary Care Physician: Dr. Janay Canchola MD Reason For Visit: ACUTE HEPATIC ENCEPHALOPATHY Diagnosis Discharge Diagnosis (1) Acute hepatic encephalopathy: Status: Acute Code(s): K72.00 - Acute and subacute hepatic failure without coma (2) Diabetes mellitus, type 2: Status: Inactive Code(s): E11.9 - Type 2 diabetes mellitus without complications Qualifiers: Diabetes mellitus buttermaker continuous churn insulin use: unspecified alf insulin use status (3) Chronic pain: Status: Acute Code(s): G89.29 - Other chronic pain Qualifiers: Chronic pain type: chronic pain syndrome Qualified Code(s): G89.4 - Chronic pain syndrome (4) Autoimmune hepatitis: Status: Inactive Code(s): K75.4 - Autoimmune hepatitis (5) Acute metabolic encephalopathy due to hypoglycemia: Status: Acute Code(s): G93.41 - Metabolic encephalopathy; E16.2 - Hypoglycemia, unspecified Plan: 1. Acute hepatic encephalopathy #2 type 2 diabetes #3 cirrhosis secondary to autoimmune hepatitis #4 essential hypertension #5 hypoglycemia Medications at Discharge Home Medications magnesium oxide 400 mg PO BID 03/14/17 Xifaxan 550 mg PO BID 11/04/17 Latuda 40 mg PO QHS 03/20/21 pantoprazole 40 mg PO DAILY 03/20/21 prednisolone acetate 1 drp OPHTHALMIC (EYE) 4X/DAY 03/20/21 sertraline 50 mg PO DAILY 03/20/21 sucralfate [Carafate] 1 g PO ACHS 03/20/21 lisinopril 5 mg PO DAILY #30 tab 03/22/21 carvedilol 25 mg tablet 25 mg PO BID #180 tab 04/25/21 insulin lispro 100 unit/mL subcutaneous pen 8 unit SUBCUT TID 04/25/21 pregabalin 50 mg capsule 50 mg PO BID 04/25/21 ursodiol 300 mg capsule 300 mg PO BID 04/25/21 carbamazepine 100 mg PO BID 04/29/21 amlodipine 5 mg PO DAILY 05/08/21 ketorolac 1 drp EACH EYE 4X/DAY 05/08/21 lidocaine 1 applic TOPICAL DAILY 05/08/21 spironolactone 50 mg PO DAILY 05/08/21 zinc gluconate 50 mg PO DAILY 05/08/21 lactulose 20 g PO TID #1200 ml 06/02/21 Hospital Course Operations None Summary of Care Provided Minutes Spent on Discharge: 32 Hospital Course: This 50-year-old white female was seen in the emergency room at [facility] after being brought in by squad with change of mental status. Family stated that they felt it was due to hypoglycemia, labs obtained in the emergency room showed a glucose of 151, however, patient's blood ammonia level was elevated at 247 and she was felt to have acute hepatic encephalopathy. Patient was admitted to PCU, she was given lactulose, patient's mental status improved. On 06/02/2021, patient was seen and examined: On examination she appeared in good health and spirits, she does not appear to be in any distress. Vital signs as documented. Skin warm and dry and without overt rashes. Neck without JVD, thyroid appears normal, trachea is midline, neck is supple. Lungs clear, normal air movement was noted. Heart exam notable for regular rhythm, normal sounds and absence of murmurs, rubs or gallops. Abdomen unremarkable and without evidence of organomegaly, masses, or abdominal aortic enlargement, bowel sounds are present in all 4 quadrants, no abdominal tenderness was noted. Extremities nonedematous, no cyanosis was noted, no clubbing was noted. Neuro: Cranial nerves II through XII are grossly intact, no focal motor deficits were noted, sensation to light touch and pinprick is intact, motor exam 5/5 throughout. Psych: Patient is alert and oriented x3, she does not appear anxious or depressed, she does not appear agitated. Patient appears stable for discharge on 06/02/2021, she was instructed to follow-up with her lacquer maker as an outpatient. Weight / BMI Weight Weight: 84.5 kg Body Mass Index (BMI) 27.5 ABG / Lab / Microbiology Data Result Diagrams: 06/01/21 06:10 06/01/21 06:10 D/C Instructions Discharge Diet: 1800 Calorie Control Diet Meaningful Use Info Meaningful Use Diagnoses (Choose all that apply): None applicable Discharge Plan Admission Admit Date/Time: 06/01/21 04:50 Primary Reason for Your Visit: hepatic encephalopathy Attending Provider: David Benton Primary Care Provider: Janay Canchola Instructions Additional Instructions / Restrictions: Patient Problems: Altered Health Status related to Hospitalization Patient Goals: *Optimal Level of Health *Keep Appointments *Medication Compliance *Remain SafeYou should have between 4-6 bowel movements per day, you may need to reduce your lactulose to twice a day if you end up having more bowel movements than these. Discharge Orders/Prescriptions Prescriptions: Continued carvedilol 25 mg tablet 25 mg PO BID Qty: 180 RF: 3 magnesium oxide 400 MG tablet 400 mg PO BID RF: 0 Xifaxan 550 MG tablet 550 mg PO BID RF: 0 pregabalin 50 mg capsule 50 mg PO BID RF: 0 sucralfate [Carafate] 1 gram Tablet 1 g PO ACHS RF: 0 pantoprazole 40 mg Tablet,Delayed Release (Dr/Ec) 40 mg PO DAILY RF: 0 sertraline 50 mg Tablet 50 mg PO DAILY RF: 0 Latuda 40 mg tablet 40 mg PO QHS RF: 0 prednisolone acetate 1 % drops,suspension 1 drp OPHTHALMIC (EYE) 4X/DAY RF: 0 lisinopril 5 mg tablet 5 mg PO DAILY Qty: 30 RF: 0 ursodiol 300 mg capsule 300 mg PO BID RF: 0 insulin lispro [Humalog KwikPen Insulin] 100 unit/mL insulin pen 8 unit SUBCUT TID RF: 0 carbamazepine 100 mg Tablet Extended Release 12 Hr 100 mg PO BID RF: 0 ketorolac 0.5 % drops 1 drp EACH EYE 4X/DAY RF: 0 zinc gluconate 50 mg tablet 50 mg PO DAILY RF: 0 spironolactone 50 mg tablet 50 mg PO DAILY RF: 0 lidocaine 5 % ointment 1 applic topical DAILY RF: 0 amlodipine 5 mg tablet 5 mg PO DAILY RF: 0 Changed lactulose 20 gram/30 mL solution 20 g PO TID Qty: 1200 RF: 0 Discontinued cefdinir 300 mg capsule 300 mg PO BID Qty: 10 RF: 0 Referrals / Follow Up: Janay Canchola MD [Primary Care Provider] - 06/09/21 5:20 pm Disposition Disposition (needs filled in before D/C Order can be placed): Home Health Service Charges/Coding Visit Charges Inpatient E&M: 15116 Disch Hosp
--- NOTE | 2021-06-05 13:51 | CASEMGMT ---
TAMIKO MELLO Discharge Follow-up Phone Call: TIM: 13 Strata: 3 Call Date: 06/05/21 Discharge Date: 06/02/21 Time of Call: 1350 Duration: 1 min Admitting Diagnosis: Acute Hepatic encephalopathy TAMIKO MELLO attempted to complete follow-up phone call after recent hospitalization. No answer, call was disconnected and unable to leave voicemail. Patient is established with [facility]. Follow-up appt made for PCP on 06/09.
== END 2021-06-02 15:50 | disposition home health service (06) | DRG 441 ==
LOC: ED 04:27 → ICU 04:53 → PCU 09:29
PROVIDERS: Admitting Provider Student in an Organized Health Care Education/Training Program; Emergency Provider Emergency Medicine; PCP Internal Medicine; Visit Provider Internal Medicine
DX: K72.00 Acute and subacute hepatic failure without coma (principal); G93.41 Metabolic encephalopathy; D61.818 Other pancytopenia; K75.4 Autoimmune hepatitis; E11.649 Type 2 diabetes mellitus with hypoglycemia without coma; G89.4 Chronic pain syndrome; I10 Essential (primary) hypertension; I25.2 Old myocardial infarction; E06.3 Autoimmune thyroiditis; F31.9 Bipolar disorder, unspecified; F25.9 Schizoaffective disorder, unspecified; F41.9 Anxiety disorder, unspecified; K21.9 Gastro-esophageal reflux disease without esophagitis; K74.60 Unspecified cirrhosis of liver; E11.42 Type 2 diabetes mellitus with diabetic polyneuropathy; Z79.899 Other long term (current) drug therapy; Z79.4 Long term (current) use of insulin; Z86.14 Personal history of Methicillin resistant Staphylococcus aureus infection
CPT/HCPCS: 71045; 74018; 80053; 81001; 82140; 82962; 83605; 85025; 92526; 92610; 93005; 97110; 97162; 97166; 97530; 97535; 99285; J7030

== ENCOUNTER 2021-07-13 10:56 | Emergency (ER) | payer MEDICARE, MEDICAID, SELFPAY ==
[2021-07-13 10:57] VITALS: BP 118/53; PULSE 63; RESP 16; TEMP 36.6; O2SAT 100; BMI 26.6
--- NOTE | 2021-07-13 12:55 | ED.VIS.FALL ---
HPI HPI - Fall History of Present Illness Chief Complaint: Fall Informant: patient Narrative Narrative: Patient is a 50-year-old female who presents to the emergency department after she fell and struck the back of her head and neck. This occurred yesterday. She has been having 8 out of 10 pain since. Turning her head seems to make it worse. She denies loss of consciousness. No vision change. She has been feeling mildly nauseous. No chest pain or shortness of breath. She is not on blood thinning medications. No weakness or loss of sensation in her extremities. She has not tried taking anything for her symptoms. [facility] Medical History Anemia Autoimmune hepatitis Bacteremia due to methicillin resistant Staphylococcus epidermidis Bipolar disorder Chronic pain Cirrhosis of liver Depression Diabetes mellitus Diabetes mellitus, type 2 Encephalopathy acute Reilly's thyroiditis Hepatic encephalopathy Hepatitis Hypertension Kidney disease MRSA bacteremia Pancreatitis Pancytopenia Peripheral neuropathy Schizoaffective disorder Severe sepsis Splenomegaly Home Medications magnesium oxide 400 mg PO BID 03/14/17 [History Last Taken 03/19/21] Xifaxan 550 mg PO BID 11/04/17 [History Last Taken 03/19/21] Latuda 40 mg PO QHS 03/20/21 [History Last Taken 03/19/21] pantoprazole 40 mg PO DAILY 03/20/21 [History Last Taken 03/19/21] prednisolone acetate 1 drp OPHTHALMIC (EYE) 4X/DAY 03/20/21 [History Last Taken Unknown] sertraline 50 mg PO DAILY 03/20/21 [History Last Taken 03/19/21] sucralfate [Carafate] 1 g PO ACHS 03/20/21 [History Last Taken 03/19/21] lisinopril 5 mg PO DAILY #30 tab 03/22/21 [Rx Last Taken Unknown] carvedilol 25 mg tablet 25 mg PO BID #180 tab 04/25/21 [Rx Last Taken Unknown] insulin lispro 100 unit/mL subcutaneous pen 8 unit SUBCUT TID 04/25/21 [History Last Taken Unknown] pregabalin 50 mg capsule 50 mg PO BID 04/25/21 [History Last Taken Unknown] ursodiol 300 mg capsule 300 mg PO BID 04/25/21 [History Last Taken Unknown] carbamazepine 100 mg PO BID 04/29/21 [History Last Taken Unknown] amlodipine 5 mg PO DAILY 05/08/21 [History Last Taken Unknown] ketorolac 1 drp EACH EYE 4X/DAY 05/08/21 [History Last Taken Unknown] lidocaine 1 applic TOPICAL DAILY 05/08/21 [History Last Taken Unknown] spironolactone 50 mg PO DAILY 05/08/21 [History Last Taken Unknown] zinc gluconate 50 mg PO DAILY 05/08/21 [History Last Taken Unknown] lactulose 20 g PO TID #1200 ml 06/02/21 [Rx Last Taken Unknown] Allergy/AdvReac Type Severity Reaction Status Date / Time adhesive Allergy Rash Verified 07/13/21 10:56 escitalopram oxalate Allergy blindness Verified 07/13/21 10:56 [From Lexapro] gabapentin [From Neurontin] Allergy Alan Verified 07/13/21 10:56 Jez's Syndrome lamotrigine [From Lamictal] Allergy Blindness Verified 07/13/21 10:56 Preservatives Allergy passed Uncoded 07/13/21 10:56 out, lungs deflated sour cream Allergy Anaphylaxis Uncoded 07/13/21 10:56 Family History Father CVA (cerebral vascular accident) Myocardial infarction Grandmother CHF (congestive heart failure) Sister Hypertension Surgical History H/O: hysterectomy History of abdominal paracentesis (10/2019) History of appendectomy History of cholecystectomy S/P TIPS (transjugular intrahepatic portosystemic shunt) Social History Smoking Status: Never smoker substance use type: does not use ROS ROS ED Constitutional Constitutional ED: Denies chills or fever(s) Eyes Eyes: Denies change in vision ENT ENT ED: Denies epistaxis or rhinorrhea Cardiovascular Cardiovascular: Denies chest pain or palpitations Respiratory/Chest Respiratory/Chest: Denies cough or dyspnea Gastrointestinal Gastrointestinal: Reports nausea; Denies abdominal pain or vomiting Musculoskeletal Musculoskeletal: Denies back pain Integumentary Denies rash Neurologic Neurologic: Reports headache(s); Denies dizziness or weakness EXAM Physical Exam Const Vital Signs: 07/13/21 10:57 07/13/21 11:53 07/13/21 13:25 Temperature 97.8 F Temperature Source Temporal Pulse Rate 63 Respiratory Rate 16 16 Respiratory Effort Normal Blood Pressure 118/53 L Blood Pressure Mean 74 Pulse Ox 100 Oxygen Delivery Method Room Air Room Air 07/13/21 14:21 Temperature Temperature Source Pulse Rate 75 Respiratory Rate 16 Respiratory Effort Blood Pressure 115/68 Blood Pressure Mean Pulse Ox 97 Oxygen Delivery Method Positive well nourished and well developed General Appearance ED: well developed and NAD HEENT Reports normocephalic, head/scalp atraumatic and moist mucous membranes Eyes PERRL and EOMs intact bilaterally Neck supple General: Negative for tenderness Chest Wall inspection of chest normal Resp normal respiratory effort and clear to auscultation bilaterally Auscultation: Negative for rales, rhonchi or wheezes Cardio regular rate, regular rhythm and no murmurs GI normal to inspection, nondistended, normoactive bowel sounds and non-tender Palpation: soft; Negative for guarding or rebound tenderness present Extremity normal to inspection General Extremety ED: Negative for edema or tenderness General Extremity: Negative for edema Neuro Sensorium / Orientation: alert Motor Exam: strength 5/5 throughout Psych mental status grossly normal Skin no rashes or lesions noted MDM MDM MDM Narrative Medical decision making narrative: Patient presents to the emergency room after a fall striking the back of her head and neck. She is not on blood thinning medications. Patient is requesting ibuprofen which she will be provided one. Will obtain CT scan of the head and cervical spine. CT imaging did not reveal any acute traumatic findings. This time will discharge home in stable condition. Will recommend symptomatic treatment. That she is to follow-up with her PCP. Return precautions are reviewed. All questions were answered. Radiography Diagnostic Testing: Radiology Impression Brain CT 07/13/21 12:57 IMPRESSION: Normal unenhanced CT scan of the brain. Electronically Signed: Vishal Shrestha MD at 13:56 EDT Tel , Service support , Cervical Spine CT 07/13/21 12:57 IMPRESSION: Normal unenhanced CT examination of the cervical spine. Electronically Signed: Vishal Shrestha MD at 13:58 EDT Tel , Service support , Discharge Plan Triage Chief Complaint: Fall ED Provider: Cornel Angeles Dx/Rx/DC Orders Clinical Impression: CHI (closed head injury), Neck pain Instructions: ED Head Injury (Adult) Prescriptions: No Action carvedilol 25 mg tablet 25 mg PO BID Qty: 180 RF: 3 magnesium oxide 400 MG tablet 400 mg PO BID RF: 0 Xifaxan 550 MG tablet 550 mg PO BID RF: 0 pregabalin 50 mg capsule 50 mg PO BID RF: 0 sucralfate [Carafate] 1 gram Tablet 1 g PO ACHS RF: 0 pantoprazole 40 mg Tablet,Delayed Release (Dr/Ec) 40 mg PO DAILY RF: 0 sertraline 50 mg Tablet 50 mg PO DAILY RF: 0 Latuda 40 mg tablet 40 mg PO QHS RF: 0 prednisolone acetate 1 % drops,suspension 1 drp OPHTHALMIC (EYE) 4X/DAY RF: 0 lisinopril 5 mg tablet 5 mg PO DAILY Qty: 30 RF: 0 ursodiol 300 mg capsule 300 mg PO BID RF: 0 insulin lispro [Humalog KwikPen Insulin] 100 unit/mL insulin pen 8 unit SUBCUT TID RF: 0 carbamazepine 100 mg Tablet Extended Release 12 Hr 100 mg PO BID RF: 0 ketorolac 0.5 % drops 1 drp EACH EYE 4X/DAY RF: 0 zinc gluconate 50 mg tablet 50 mg PO DAILY RF: 0 spironolactone 50 mg tablet 50 mg PO DAILY RF: 0 lidocaine 5 % ointment 1 applic topical DAILY RF: 0 amlodipine 5 mg tablet 5 mg PO DAILY RF: 0 lactulose 20 gram/30 mL solution 20 g PO TID Qty: 1200 RF: 0 Primary Care Provider: Janay Canchola Referrals: Janay Canchola MD [Primary Care Provider] - 3-5 Days if not improving Disposition Disposition: Home, Self Care Discharge Date/Time: 07/13/21 14:22
--- NOTE | 2021-07-13 12:57 | CT_ITS ---
STUDY: CT CERVICAL SPINE WITHOUT CONTRAST REASON FOR EXAM: Female, 50 years old. Fall, struck neck RADIATION DOSAGE (If Supplied By Facility): CTDIvol = ( 24.31 ) mGy, DLP = ( 526.69 ) mGycm TECHNIQUE: High resolution transaxial imaging was performed without contrast material. Sagittal and coronal images were reconstructed. Individualized dose optimization techniques were used for this CT. COMPARISON: None FINDINGS: Normal craniovertebral junction. Normal anterior atlantoaxial articulation. Normal odontoid process. Normal cervical lordosis. Normal vertebral bodies and posterior osseous elements. C2-3: Normal endplates. Normal disc height and morphology. Normal central canal and intervertebral neuroforamina. C3-4: Normal endplates. Normal disc height and morphology. Normal central canal and intervertebral neuroforamina. C4-5: Normal endplates. Normal disc height and morphology. Normal central canal and intervertebral neuroforamina. C5-6: Normal endplates. Normal disc height and morphology. Normal central canal and intervertebral neuroforamina. C6-7: Normal endplates. Normal disc height and morphology. Normal central canal and intervertebral neuroforamina. C7-T1: Normal endplates. Normal disc height and morphology. Normal central canal and intervertebral neuroforamina. Normal visualized soft tissue structures. CT/Spine Cervical without Contras IMPRESSION: Normal unenhanced CT examination of the cervical spine. Electronically Signed: Vishal Shrestha MD at 13:58 EDT Tel , Service support ,
--- NOTE | 2021-07-13 12:57 | CT_ITS ---
STUDY: CT BRAIN WITHOUT CONTRAST REASON FOR EXAM: Female, 50 years old. Fall, struck head RADIATION DOSAGE (If Supplied By Facility): CTDIvol = ( 44.99 ) mGy, DLP = ( 762.36 ) mGycm TECHNIQUE: Transaxial CT imaging of the brain was performed without administration of intravenous contrast material. Individualized dose optimization techniques were used for this CT. COMPARISON: 05/08/2021 FINDINGS: Normal soft tissue structures. Normal calvarium. Normal size ventricles and extra-axial spaces for the patient''s age. Normal white matter tracts of the cerebral hemispheres. Normal basal ganglia and thalami. Normal brainstem. Normal cerebellum. There is no intracranial hemorrhage. There are no findings of an acute ischemic infarction. Normal visualized paranasal sinuses. CT/Brain/Head without Contrast IMPRESSION: Normal unenhanced CT scan of the brain. Electronically Signed: Vishal Shrestha MD at 13:56 EDT Tel , Service support ,
[2021-07-13] MEDS: Ibuprofen 600 MG Tablet PO (13:22)
[2021-07-13 13:25] VITALS: RESP 16
[2021-07-13 14:21] VITALS: BP 115/68; PULSE 75; RESP 16; O2SAT 97
== END 2021-07-13 14:22 | disposition home or self-care (01) ==
PROVIDERS: Emergency Provider Emergency Medicine; PCP Internal Medicine
DX: S09.90XA Unspecified injury of head, initial encounter (principal); M54.2 Cervicalgia; W19.XXXA Unspecified fall, initial encounter
CPT/HCPCS: 70450; 72125; 99283

== ENCOUNTER 2021-08-20 07:22 | Emergency (ER) | payer MEDICARE, MEDICAID, SELFPAY ==
[2021-08-20 07:24] VITALS: BP 126/71; PULSE 78; RESP 16; TEMP 36.8; O2SAT 99; BMI 29.4
--- NOTE | 2021-08-20 07:39 | CT_ITS ---
STUDY: CT BRAIN WITHOUT CONTRAST REASON FOR EXAM: Female, 50 years old. trauma RADIATION DOSAGE (If Supplied By Facility): CTDIvol = ( 44.99 ) mGy, DLP = ( 779.24 ) mGycm TECHNIQUE: Transaxial CT imaging of the brain was performed without administration of intravenous contrast material. Individualized dose optimization techniques were used for this CT. COMPARISON: No relevant priors. FINDINGS: Normal size ventricles and extra-axial spaces for the patient''s age. Normal white matter tracts of the cerebral hemispheres. There is no intracranial hemorrhage. There are no findings of an acute ischemic infarction. Normal visualized paranasal sinuses. CT/Brain/Head without Contrast IMPRESSION: Unremarkable unenhanced CT scan of the brain. Electronically Signed: Chon Guardado MD at 8:54 EDT Tel , Service support ,
--- NOTE | 2021-08-20 07:40 | EKG12_ITS ---
Test Reason : HYPERGLYCEMIA Blood Pressure : / mmHG Vent. Rate : 073 BPM Atrial Rate : 073 BPM P-R Int : 176 ms QRS Dur : 112 ms QT Int : 450 ms P-R-T Axes : 015 -32 030 degrees QTc Int : 495 ms Suspect unspecified pacemaker failure Normal sinus rhythm Left axis deviation Voltage criteria for left ventricular hypertrophy Prolonged QT Abnormal ECG Confirmed by DEDE ZAMBRANO, ROSA ([id number]), features editor NORA MENDES ([id number]) on 08/22/2021 8:00:58 AM Referred By: AILEEN Confirmed By:ROSA AGUAYO MD
--- NOTE | 2021-08-20 07:43 | EDS_ITS ---
HPI History of Present Illness Chief Complaint: Hyperglycemia Informant: patient Narrative Narrative: Patient presents with hyperglycemia and they fall at home. She has had diabetes for about 15 years. She has been on insulin for about 3 years. She takes 34 units of Tresiba. She is supposed to take a baseline of 8 units of lispro with meals plus a sliding scale. Her sugars have been running high for about a week. Her has been helping her manage her diabetes. He was wanting to see if the long-acting insulin would take effect. They have not used any short acting insulin for over a week. After they started this, her sugars have been going up. They have been running in the mid 300s. She has been urinating more. She feels dehydrated. She has a little bit of haziness in her vision. This morning she went to the bathroom. She was walking back to bed and she just felt a little lightheaded. She just stumbled and caught her toe. She fell forward. Hit her head on the nightstand. She states she did not completely lose consciousness but did feel a bit dazed. She had no chest pain or palpitations. She has mild soreness of her forehead. Other than that she feels thirsty. No abdominal pain. She has not been vomiting. No diarrhea. [facility] Medical History Anemia Autoimmune hepatitis Bacteremia due to methicillin resistant Staphylococcus epidermidis Bipolar disorder Chronic pain Cirrhosis of liver Depression Diabetes mellitus Diabetes mellitus, type 2 Encephalopathy acute Reilly's thyroiditis Hepatic encephalopathy Hepatitis Hypertension Kidney disease MRSA bacteremia Pancreatitis Pancytopenia Peripheral neuropathy Schizoaffective disorder Severe sepsis Splenomegaly Home Medications magnesium oxide 400 mg PO BID 03/14/17 [History Last Taken 03/19/21] Xifaxan 550 mg PO BID 11/04/17 [History Last Taken 03/19/21] Latuda 40 mg PO QHS 03/20/21 [History Last Taken 03/19/21] pantoprazole 40 mg PO DAILY 03/20/21 [History Last Taken 03/19/21] prednisolone acetate 1 drp OPHTHALMIC (EYE) 4X/DAY 03/20/21 [History Last Taken Unknown] sertraline 50 mg PO DAILY 03/20/21 [History Last Taken 03/19/21] sucralfate [Carafate] 1 g PO ACHS 03/20/21 [History Last Taken 03/19/21] lisinopril 5 mg PO DAILY #30 tab 03/22/21 [Rx Last Taken Unknown] carvedilol 25 mg tablet 25 mg PO BID #180 tab 04/25/21 [Rx Last Taken Unknown] insulin lispro 100 unit/mL subcutaneous pen 8 unit SUBCUT TID 04/25/21 [History Last Taken Unknown] pregabalin 50 mg capsule 50 mg PO BID 04/25/21 [History Last Taken Unknown] ursodiol 300 mg capsule 300 mg PO BID 04/25/21 [History Last Taken Unknown] carbamazepine 100 mg PO BID 04/29/21 [History Last Taken Unknown] amlodipine 5 mg PO DAILY 05/08/21 [History Last Taken Unknown] ketorolac 1 drp EACH EYE 4X/DAY 05/08/21 [History Last Taken Unknown] lidocaine 1 applic TOPICAL DAILY 05/08/21 [History Last Taken Unknown] spironolactone 50 mg PO DAILY 05/08/21 [History Last Taken Unknown] zinc gluconate 50 mg PO DAILY 05/08/21 [History Last Taken Unknown] lactulose 20 g PO TID #1200 ml 06/02/21 [Rx Last Taken Unknown] Allergy/AdvReac Type Severity Reaction Status Date / Time adhesive Allergy Rash Verified 07/13/21 10:56 escitalopram oxalate Allergy blindness Verified 07/13/21 10:56 [From Lexapro] gabapentin [From Neurontin] Allergy Alan Verified 07/13/21 10:56 Jez's Syndrome lamotrigine [From Lamictal] Allergy Blindness Verified 07/13/21 10:56 Preservatives Allergy passed Uncoded 07/13/21 10:56 out, lungs deflated sour cream Allergy Anaphylaxis Uncoded 07/13/21 10:56 Family History Father CVA (cerebral vascular accident) Myocardial infarction Grandmother CHF (congestive heart failure) Sister Hypertension Surgical History H/O: hysterectomy History of abdominal paracentesis (10/2019) History of appendectomy History of cholecystectomy S/P TIPS (transjugular intrahepatic portosystemic shunt) Social History Smoking Status: Never smoker substance use type: does not use ROS ROS ED Constitutional Constitutional ED: Denies chills, fever(s), sweats or weight loss Eyes Eyes: Reports blurry vision and change in vision ENT ENT ED: Denies rhinorrhea or sore throat Cardiovascular Cardiovascular: Denies chest pain, palpitations or racing heartbeat Respiratory/Chest Respiratory/Chest: Denies cough or dyspnea Gastrointestinal Gastrointestinal: Denies abdominal pain, diarrhea, nausea or vomiting Genitourinary Genitourinary ED: Reports urinary frequency and other Details: Patient does have polyuria. She also was treated just recently for a yeast infection but still has some itching. ; Denies dysuria or hematuria Musculoskeletal Musculoskeletal: Denies back pain, myalgias or neck pain Integumentary Reports other Details: Laceration to forehead Neurologic Neurologic: Reports headache(s); Denies paresthesias or weakness Endocrine Endocrinology: Reports polydipsia and polyuria Allergic/Immunologic Allergic/Immunologic ED: Denies mouth swelling, tongue swelling or urticaria EXAM Physical Exam Const Vital Signs: 08/20/21 07:24 08/20/21 10:08 08/20/21 12:16 Temperature 98.3 F Temperature Source Oral Pulse Rate 78 71 74 Respiratory Rate 16 16 14 Blood Pressure 126/71 H 129/68 H 116/63 Blood Pressure Mean 89 88 80 Pulse Ox 99 100 99 Oxygen Delivery Method Room Air Room Air Room Air Positive well nourished and well developed General Appearance ED: well developed and NAD HEENT Reports dry mucous membranes HEENT Narrative: Patient has a 3 cm horizontal laceration on her mid upper forehead just right of center. No active bleeding. There is mild swelling. No step-off is noted. No fluid drainage. trauma Mouth ED: Yes dry mucous membranes Mouth: dry mucous membranes Eyes PERRL and EOMs intact bilaterally General Eye ED: Negative for pale conjunctiva Neck no lymphadenopathy and no JVD Resp normal respiratory effort and clear to auscultation bilaterally Auscultation: Negative for rales, rhonchi or wheezes Cardio regular rate, regular rhythm and no murmurs GI normal to inspection, nondistended, normoactive bowel sounds and non-tender Palpation: soft Back/Spine no CVA tenderness Extremity normal to inspection General Extremety ED: Negative for edema or tenderness General Extremity: Negative for edema Neuro oriented x3 Sensorium / Orientation: alert Psych mental status grossly normal Skin Skin Narrative: 3 cm laceration to forehead as above. MDM MDM MDM Narrative Medical decision making narrative: Patient has pancytopenia which she has had before. She is really at her baseline range of levels. Sodium was minimally low at 132. This is likely partially factitious due to the high glucose at 468. Creatinine is a bit high at 1.76. This is a little higher than her baseline but she has had it this high before. This is likely due to dehydration from diuresis due to hyperglycemia not taking her insulins. Her CT scan shows no acute process. Procedure: Suture laceration: We did place LAT on the wound. We got partial anesthesia. I then placed 1% lidocaine with epinephrine around the edges. Total of 2-1/2 cc. Good anesthesia was achieved. The area was scrubbed multiple times. It was irrigated. Wound edges were approximated with 10 running continuous 6-0 Ethilon sutures. Good cosmesis hemostasis. Patient tolerated the procedure very well. Dressing will be applied. Patient's got her fluids. She is got a couple doses of insulin. We got her sugar down to 230s. She still feels good. She would like to go home.. We again discussed that when she eats she will need extra short acting insulin even though she is on Tresiba. Tresiba is just a baseline. Encouraged her to see her doctor to maybe get further diabetic teaching. Lab Data Attestation: I reviewed the patient's lab results. Labs: Laboratory Results - last 24 hr 08/20/21 08/20/21 08/20/21 07:55 07:55 08:07 WBC 2.3 L RBC 3.05 L Hgb 8.6 L Hct 25.7 L MCV 84.3 MCH 28.2 MCHC 33.5 RDW Std Deviation 46.1 H RDW Coeff of Valentina 15.9 H Plt Count 55 L MPV 13.1 H Immature Gran % (Auto) 0.400 Neut % (Auto) 56.9 Lymph % (Auto) 23.5 [place] % (Auto) 14.8 H Eos % (Auto) 3.5 Baso % (Auto) 0.9 Absolute Neuts (auto) 1.3 L Absolute Lymphs (auto) 0.54 L Nucleated RBC % 0 Differential Comment SCANNED Diff Path Review May foll Platelet Estimate MKD DEC Sodium 132 L Potassium 3.5 Chloride 101 Carbon Dioxide 24.0 Anion Gap 7 BUN 15 Creatinine 1.76 H Estim Creat Clear Calc 39.08 Est GFR (MDRD) Af Amer 39 L Est GFR (MDRD) Non-Af 32 L BUN/Creatinine Ratio 8.5 L Glucose 468 H* Calcium 8.1 L Urine Color Urine Clarity Urine pH Ur Specific [place] Urine Protein Urine Glucose (UA) Urine Ketones Urine Occult Blood Urine Nitrite Urine Bilirubin Urine Urobilinogen Ur Leukocyte Esterase Urine RBC Urine WBC Ur Squamous Epith Cells Urine Bacteria Urine Mucus Urine Yeast POC Glucose 488 H* 08/20/21 08/20/21 08/20/21 09:35 10: 11:55 WBC RBC Hgb Hct MCV MCH MCHC RDW Std Deviation RDW Coeff of Valentina Plt Count MPV Immature Gran % (Auto) Neut % (Auto) Lymph % (Auto) [place] % (Auto) Eos % (Auto) Baso % (Auto) Absolute Neuts (auto) Absolute Lymphs (auto) Nucleated RBC % Differential Comment Diff Path Review Platelet Estimate Sodium Potassium Chloride Carbon Dioxide Anion Gap BUN Creatinine Estim Creat Clear Calc Est GFR (MDRD) Af Amer Est GFR (MDRD) Non-Af BUN/Creatinine Ratio Glucose Calcium Urine Color Yellow Urine Clarity Clear Urine pH 6.0 Ur Specific [place] 1.015 Urine Protein Negative Urine Glucose (UA) 1000 H Urine Ketones Negative Urine Occult Blood 25 H Urine Nitrite Negative Urine Bilirubin Negative Urine Urobilinogen Normal Ur Leukocyte Esterase Negative Urine RBC 0 SEEN Urine WBC 0 SEEN Ur Squamous Epith Cells 5-10 SEEN Urine Bacteria 1+ Urine Mucus 0 SEEN Urine Yeast 1+ POC Glucose 430 H 238 H Radiography Diagnostic Testing: Radiology Impression Brain CT 08/20/21 07:39 IMPRESSION: Unremarkable unenhanced CT scan of the brain. Electronically Signed: Chon Guardado MD at 8:54 EDT Tel , Service support , EKG Initial EKG: Comments: EKG done as part of work-up for lightheadedness and fall and read by me. EKG shows normal sinus rhythm. Overall rate of 73. No ectopy. No acute ST elevation or depression consistent with infarct or ischemia. IL interval, QRS duration are normal. QTc is slightly long at 495 ms. Discharge Plan Triage Chief Complaint: Hyperglycemia ED Provider: Alex Lizarraga Dx/Rx/DC Orders Clinical Impression: CHI (closed head injury), Hyperglycemia, Fall at home, Forehead laceration Instructions: ED Diabetic Hyperglycemia, ED Head Injury (Adult) Prescriptions: No Action carvedilol 25 mg tablet 25 mg PO BID Qty: 180 RF: 3 magnesium oxide 400 MG tablet 400 mg PO BID RF: 0 Xifaxan 550 MG tablet 550 mg PO BID RF: 0 pregabalin 50 mg capsule 50 mg PO BID RF: 0 sucralfate [Carafate] 1 gram Tablet 1 g PO ACHS RF: 0 pantoprazole 40 mg Tablet,Delayed Release (Dr/Ec) 40 mg PO DAILY RF: 0 sertraline 50 mg Tablet 50 mg PO DAILY RF: 0 Latuda 40 mg tablet 40 mg PO QHS RF: 0 prednisolone acetate 1 % drops,suspension 1 drp OPHTHALMIC (EYE) 4X/DAY RF: 0 lisinopril 5 mg tablet 5 mg PO DAILY Qty: 30 RF: 0 ursodiol 300 mg capsule 300 mg PO BID RF: 0 insulin lispro [Humalog KwikPen Insulin] 100 unit/mL insulin pen 8 unit SUBCUT TID RF: 0 carbamazepine 100 mg Tablet Extended Release 12 Hr 100 mg PO BID RF: 0 ketorolac 0.5 % drops 1 drp EACH EYE 4X/DAY RF: 0 zinc gluconate 50 mg tablet 50 mg PO DAILY RF: 0 spironolactone 50 mg tablet 50 mg PO DAILY RF: 0 lidocaine 5 % ointment 1 applic topical DAILY RF: 0 amlodipine 5 mg tablet 5 mg PO DAILY RF: 0 lactulose 20 gram/30 mL solution 20 g PO TID Qty: 1200 RF: 0 Primary Care Provider: Janay Canchola Referrals: Janay Canchola MD [Primary Care Provider] - 5 Days for suture removal Disposition Disposition: Home, Self Care
[2021-08-20 08:05] LABS: Absolute Lymphocyte Count 0.54 X10^3/uL (0.83-4.51); Absolute Neutrophil Count 1.3 X10^3/uL (2.0-7.7); Basophil# 0.02 X10^3/uL; Basophil% 0.9 % (0-1); Eosinophil# 0.08 X10^3/uL; Eosinophils% 3.5 % (0-5); Hematocrit 25.7 % (37-47); Hemoglobin 8.6 g/dL (12.0-15.0); Lymphocyte # 0.54 X10^3/ul (0.83-4.51); Lymphocyte % 23.5 % (19-41); Mean Corp Hgb Conc 33.5 g/dL (32-36); Mean Corpuscular Hgb 28.2 pg (27.0-32.0); Mean Corpuscular Volume 84.3 fL (81-99); Mean Platelet Vol. 13.1 fl (6.2-12.0); Monocyte# 0.34 X10^3/uL; Monocyte% 14.8 % (0-10); NRBC Flagged by Analyzer 0 % (0-5); Neutrophil # 1.31 X10^3/uL (2.7-7.7); Neutrophil % 56.9 % (47-70); POSITIVE COUNT YES; POSITIVE DIFFERENTIAL YES; Platelet Count 55 K/mm3 (150-450); RBC Distribution Width CV 15.9 % (11.6-14.6); RBC Distribution Width SD 46.1 fl (35.1-43.9); Red Blood Count 3.05 M/mm3 (4.2-5.4); White Blood Count 2.3 K/mm3 (4.4-11.0)
[2021-08-20 08:07] LABS: Differential Indicated SCAN CRITERIA MET
[2021-08-20] MEDS: Lidocaine/Epi/Tetracaine 50 ML 1 APPLIC TOPICAL (08:11)
[2021-08-20] MEDS: 0.9% Normal Saline 1,000 ML 1000 ML IV (08:11)
[2021-08-20 08:16] LABS: Bedside Glucose 488 mg/dL (70-110)
[2021-08-20 08:18] LABS: Anion Gap 7 (5-15); BUN 15 mg/dL (7-18); BUN/Creat Ratio 8.5 RATIO (10-20); Calcium,Total 8.1 mg/dL (8.5-10.1); Chloride 101 mmol/L (98-107); Creatinine, Serum 1.76 mg/dL (0.55-1.02); EST Glomerular Filtration Rate 32 mL/min (>60); Est Glom Filt Rate - Afr Amer 39 mL/min (>60); Estimated Creatinine Clearance 39.08 ml/min; Glucose 468 mg/dL (74-106); Potassium 3.5 mmol/L (3.5-5.1); Sodium Level 132 mmol/L (136-145)
[2021-08-20 08:38] LABS: Differential Comment SCANNED; Platelet Estimate MKD DEC (ADEQ)
[2021-08-20] MEDS: Ondansetron 4 MG/2 ML Vial IV (08:51)
[2021-08-20] MEDS: Lidocaine 1% /Epi 1:100 (20ml) 20 ML Vial INFILT (08:51)
[2021-08-20] MEDS: Insulin Lispro 100 UNIT/ML INSULN.PEN 14 UNIT SC (08:51)
[2021-08-20 09:39] LABS: Mucous, Urine 0 SEEN /hpf (<or=2+); Red Blood Cells-Urine 0 SEEN /hpf (0-5); White Blood Cells 0 SEEN /hpf (0-5)
[2021-08-20 09:49] LABS: Color, Urine Yellow (Yellow); Glucose, Dipstick 1000 mg/dl (Normal); Ketone-Dipstick Negative (Negative); Leukocyte Esterase-Dipstick Negative /ul (Negative); Nitrite-Dipstick Negative (Negative); Occult Blood-Urine 25 /ul (Negative); Protein-Dipstick Negative (Negative); Specific Gravity, Urine 1.015 (1.002-1.030); Urine Bilirubin Dipstick Negative (Negative); Urine Clarity Clear (Clear); Urine Urobilinogen Normal (Normal)
[2021-08-20 09:56] LABS: Bacteria 1+ /hpf (None Seen); Squamous Epithelial Cells - UA 5-10 SEEN /hpf (5-10); Yeast-Urine 1+ /hpf (None Seen)
[2021-08-20 10:08] VITALS: BP 129/68; PULSE 71; RESP 16; O2SAT 100
[2021-08-20 10:11] LABS: Bedside Glucose 430 mg/dL (70-110)
[2021-08-20 12:00] LABS: Bedside Glucose 238 mg/dL (70-110)
[2021-08-20 12:16] VITALS: BP 116/63; PULSE 74; RESP 14; O2SAT 99
[2021-08-20 12:33] VITALS: BP 116/63; PULSE 72; RESP 16; O2SAT 97
[2021-08-21 14:59] LABS: Pathologist Review Reviewed
== END 2021-08-20 12:33 | disposition home or self-care (01) ==
PROVIDERS: Emergency Provider Emergency Medicine; PCP Internal Medicine
DX: E11.65 Type 2 diabetes mellitus with hyperglycemia (principal); S01.81XA Laceration without foreign body of other part of head, initial encounter; W19.XXXA Unspecified fall, initial encounter; Z79.4 Long term (current) use of insulin
CPT/HCPCS: 12013; 70450; 80048; 81001; 82962; 85025; 93005; 96361; 96374; 99285; J7030; A4216; J2405

== ENCOUNTER 2021-08-27 11:54 | Emergency (ER) | payer MEDICARE, MEDICAID, SELFPAY ==
[2021-08-27 11:56] VITALS: BP 135/65; PULSE 73; RESP 16; TEMP 35.9; O2SAT 95; BMI 26.6
--- NOTE | 2021-08-27 12:20 | ED.RN ---
pt left without being seen, states she cannot sit any longer to wait, pt instructed to return if she changes her mind
== END 2021-08-27 12:20 | disposition left against medical advice (07) ==
LOC: ED 12:59
PROVIDERS: PCP Internal Medicine
DX: Z53.21 Procedure and treatment not carried out due to patient leaving prior to being seen by health care provider (principal)

== ENCOUNTER 2021-08-28 16:35 | Emergency (ER) | payer MEDICARE, MEDICAID, SELFPAY ==
[2021-08-28 16:37] VITALS: BP 130/70; PULSE 64; RESP 16; TEMP 36.1; O2SAT 99; BMI 26.6
--- NOTE | 2021-08-28 17:00 | RAD_ITS ---
STUDY: X-RAY - UNILATERAL RIBS ( LEFT ) WITH CHEST REASON FOR EXAM: Female, 50 years old. FELL AGAINST A TABLE A COUPLE DAYS AGO PAIN IN LEFT LOWER FRONT TECHNIQUE - RIBS: 4 view(s) of the ribs. TECHNIQUE - CHEST: 2 PA view of the chest. COMPARISON: Chest x-ray dated June 01, 2021 FINDINGS - RIBS: Normal visualized ribs without a demonstrated fracture. FINDINGS - CHEST: Right upper quadrant stent and surgical clips reidentified. Mild patchy consolidation is seen in the bilateral lower lobes. Patchy infiltrate is also present in the right upper lobe. Interstitial thickening is present in the inferior aspect of the left upper lobe. There is no demonstrated pleural abnormality. Normal size heart. Normal mediastinum and sonny. Normal visualized pulmonary arteries. Normal visualized aortic arch and descending thoracic aorta. Normal visualized thoracic spine. Normal visualized ribs, clavicles, and shoulders. There is no demonstrated abnormality of the visualized soft tissue structures of the upper abdomen. RAD/Ribs Uni Min 3V w/PA Chest IMPRESSION: RIBS: Normal x-ray examination of the ribs. CHEST: Findings suggestive of bilateral pneumonia - Mild patchy consolidation is seen in the bilateral lower lobes. Patchy infiltrate is also present in the right upper lobe. Interstitial thickening is present in the inferior aspect of the left upper lobe. Electronically Signed: Arnulfo Ghotra MD at 18:34 EDT , Service support ,
[2021-08-28] MEDS: Ondansetron ODT 4 MG Tablet PO (17:08)
[2021-08-28] MEDS: Morphine 4 MG/ML Syringe 6 MG IM (17:08)
[2021-08-28 18:39] VITALS: RESP 16
--- NOTE | 2021-08-28 19:54 | EX.ED.DYSGE1 ---
HPI History of Present Illness Chief Complaint: Fall Narrative Narrative: Patient is a 50-year-old female who states 2 days ago she was stepping over a gate when she caught her foot and fell landing on her left side. She denies striking her head or any loss of consciousness. She states she has had increased pain to the left rib cage since that time. She reports has been trying [id number] medications with minimal symptom improvement and with concern for refracture comes in for evaluation [facility] Medical History Anemia Autoimmune hepatitis Bacteremia due to methicillin resistant Staphylococcus epidermidis Bipolar disorder Chronic pain Cirrhosis of liver Depression Diabetes mellitus Diabetes mellitus, type 2 Encephalopathy acute Reilly's thyroiditis Hepatic encephalopathy Hepatitis Hypertension Kidney disease MRSA bacteremia Pancreatitis Pancytopenia Peripheral neuropathy Schizoaffective disorder Severe sepsis Splenomegaly Home Medications magnesium oxide 400 mg PO BID 03/14/17 [History Last Taken 03/19/21] Xifaxan 550 mg PO BID 11/04/17 [History Last Taken 03/19/21] Latuda 40 mg PO QHS 03/20/21 [History Last Taken 03/19/21] pantoprazole 40 mg PO DAILY 03/20/21 [History Last Taken 03/19/21] prednisolone acetate 1 drp OPHTHALMIC (EYE) 4X/DAY 03/20/21 [History Last Taken Unknown] sertraline 50 mg PO DAILY 03/20/21 [History Last Taken 03/19/21] sucralfate [Carafate] 1 g PO ACHS 03/20/21 [History Last Taken 03/19/21] lisinopril 5 mg PO DAILY #30 tab 03/22/21 [Rx Last Taken Unknown] carvedilol 25 mg tablet 25 mg PO BID #180 tab 04/25/21 [Rx Last Taken Unknown] insulin lispro 100 unit/mL subcutaneous pen 8 unit SUBCUT TID 04/25/21 [History Last Taken Unknown] pregabalin 50 mg capsule 50 mg PO BID 04/25/21 [History Last Taken Unknown] ursodiol 300 mg capsule 300 mg PO BID 04/25/21 [History Last Taken Unknown] carbamazepine 100 mg PO BID 04/29/21 [History Last Taken Unknown] amlodipine 5 mg PO DAILY 05/08/21 [History Last Taken Unknown] ketorolac 1 drp EACH EYE 4X/DAY 05/08/21 [History Last Taken Unknown] lidocaine 1 applic TOPICAL DAILY 05/08/21 [History Last Taken Unknown] spironolactone 50 mg PO DAILY 05/08/21 [History Last Taken Unknown] zinc gluconate 50 mg PO DAILY 05/08/21 [History Last Taken Unknown] lactulose 20 g PO TID #1200 ml 06/02/21 [Rx Last Taken Unknown] doxycycline hyclate 100 mg PO BID #20 cap 08/28/21 [Rx Last Taken Unknown] hydrocodone-acetaminophen 1 tab PO Q6H PRN 3 Days #12 tab 08/28/21 [Rx Last Taken Unknown] ondansetron HCl [Zofran] 4 mg PO Q8H PRN #21 tab 08/28/21 [Rx Last Taken Unknown] Allergy/AdvReac Type Severity Reaction Status Date / Time adhesive Allergy Rash Verified 08/28/21 16:41 escitalopram oxalate Allergy blindness Verified 08/28/21 16:41 [From Lexapro] gabapentin [From Neurontin] Allergy Alan Verified 08/28/21 16:41 Jez's Syndrome lamotrigine [From Lamictal] Allergy Blindness Verified 08/28/21 16:41 Preservatives Allergy passed Uncoded 08/28/21 16:41 out, lungs deflated sour cream Allergy Anaphylaxis Uncoded 08/28/21 16:41 Family History Father CVA (cerebral vascular accident) Myocardial infarction Grandmother CHF (congestive heart failure) Sister Hypertension Surgical History H/O: hysterectomy History of abdominal paracentesis (10/2019) History of appendectomy History of cholecystectomy S/P TIPS (transjugular intrahepatic portosystemic shunt) Social History Smoking Status: Never smoker substance use type: does not use ROS ROS ED Constitutional Constitutional ED: Denies chills or fever(s) ENT ENT ED: Denies sore throat Cardiovascular Cardiovascular: Reports chest pain Respiratory/Chest Respiratory/Chest: Reports cough; Denies dyspnea Gastrointestinal Gastrointestinal: Reports nausea; Denies abdominal pain, diarrhea or vomiting Genitourinary Genitourinary ED: Denies dysuria Musculoskeletal Musculoskeletal: Denies back pain or myalgias Integumentary Denies rash Neurologic Neurologic: Denies headache(s) Hematologic/Lymphatic Hematologic/Lymphatic: Denies easy bleeding or easy bruising EXAM Physical Exam Const Vital Signs: 08/28/21 16:37 08/28/21 17:11 08/28/21 18:39 Temperature 96.9 F L Temperature Source Temporal Pulse Rate 64 Respiratory Rate 16 16 Respiratory Effort Normal Non-Labored Blood Pressure 130/70 H Blood Pressure Mean 90 Pulse Ox 99 Oxygen Delivery Method Room Air 08/28/21 20:01 Temperature Temperature Source Pulse Rate 74 Respiratory Rate 16 Respiratory Effort Blood Pressure 162/78 H Blood Pressure Mean 106 Pulse Ox 99 Oxygen Delivery Method Room Air Positive well nourished and well developed General Appearance ED: well developed HEENT HEENT Narrative: Patient has a healing laceration to her right forehead that is clean dry and intact that she states occurred with a fall previous to the one she sustained a few days ago. Otherwise no signs of depressed or basilar skull fracture Eyes PERRL and EOMs intact bilaterally Neck supple Neck Narrative: No bony deformity or step-off of the cervical spine no midline pain with palpation Chest Wall Chest Narrative: Anterior lateral pain with palpation of the left ribs 10-12 without bony deformity or crepitance Resp Resp Narrative: Breath sounds are diminished throughout with rhonchi in the bilateral bases but no signs of distress Cardio regular rate and regular rhythm GI normal to inspection, nondistended, normoactive bowel sounds, non-tender and non-distended GI Narrative: No abrasions or ecchymosis noted no voluntary guarding or rigidity no pulsatile mass Auscultation: normoactive bowel sounds Palpation: soft Extremity normal to inspection Neuro oriented x3 and CN's II-XII intact bilaterally Sensorium / Orientation: alert Psych mental status grossly normal Skin Skin Narrative: Healing laceration to the right forehead as documented above MDM MDM MDM Narrative Medical decision making narrative: Patient presented to the ER afebrile in with overall stable vitals. She reported a mechanical fall and therefore I felt no need for cardiac or syncope work-up. Her pain was along the lower rib cage and she had no bruising or pain on abdominal palpation so I felt any need for chest x-ray with rib series. X-ray revealed no acute fracture pneumothorax but it did show changes concerning for infiltrate. I feel this could have happened with the patient's recent falls and having her splint/take shallow respirations. As she is afebrile and not requiring supplemental oxygen I do not feel there is need for further work-up. She was simply placed on pain control as well as antibiotics and will be discharged at this time Radiography Diagnostic Testing: Clinical Impression(s) from Imaging Studies Ribs w/Chest X-Ray 08/28/21 17:00 IMPRESSION: RIBS: Normal x-ray examination of the ribs. CHEST: Findings suggestive of bilateral pneumonia - Mild patchy consolidation is seen in the bilateral lower lobes. Patchy infiltrate is also present in the right upper lobe. Interstitial thickening is present in the inferior aspect of the left upper lobe. Electronically Signed: Arnulfo Ghotra MD at 18:34 EDT , Service support , Discharge Plan Triage Chief Complaint: Fall ED Provider: Artie Andrade Dx/Rx/DC Orders Clinical Impression: Contusion of rib on left side, Pneumonia Instructions: When You Have Pneumonia, ED Contusion, Rib Prescriptions: New doxycycline hyclate 100 mg capsule 100 mg PO BID Qty: 20 RF: 0 ondansetron HCl [Zofran] 4 mg tablet 4 mg PO Q8H PRN (Reason: nausea and vomiting) Qty: 21 RF: 0 hydrocodone-acetaminophen 5-325 mg tablet 1 tab PO Q6H PRN (Reason: pain) 3 Days Qty: 12 RF: 0 No Action carvedilol 25 mg tablet 25 mg PO BID Qty: 180 RF: 3 magnesium oxide 400 MG tablet 400 mg PO BID RF: 0 Xifaxan 550 MG tablet 550 mg PO BID RF: 0 pregabalin 50 mg capsule 50 mg PO BID RF: 0 sucralfate [Carafate] 1 gram Tablet 1 g PO ACHS RF: 0 pantoprazole 40 mg Tablet,Delayed Release (Dr/Ec) 40 mg PO DAILY RF: 0 sertraline 50 mg Tablet 50 mg PO DAILY RF: 0 Latuda 40 mg tablet 40 mg PO QHS RF: 0 prednisolone acetate 1 % drops,suspension 1 drp OPHTHALMIC (EYE) 4X/DAY RF: 0 lisinopril 5 mg tablet 5 mg PO DAILY Qty: 30 RF: 0 ursodiol 300 mg capsule 300 mg PO BID RF: 0 insulin lispro [Humalog KwikPen Insulin] 100 unit/mL insulin pen 8 unit SUBCUT TID RF: 0 carbamazepine 100 mg Tablet Extended Release 12 Hr 100 mg PO BID RF: 0 ketorolac 0.5 % drops 1 drp EACH EYE 4X/DAY RF: 0 zinc gluconate 50 mg tablet 50 mg PO DAILY RF: 0 spironolactone 50 mg tablet 50 mg PO DAILY RF: 0 lidocaine 5 % ointment 1 applic topical DAILY RF: 0 amlodipine 5 mg tablet 5 mg PO DAILY RF: 0 lactulose 20 gram/30 mL solution 20 g PO TID Qty: 1200 RF: 0 Primary Care Provider: Janay Canchola Referrals: Janay Canchola MD [Primary Care Provider] - Disposition Disposition: Home, Self Care Discharge Date/Time: 08/28/21 20:04
[2021-08-28] MEDS: Doxycycline 100 MG CAPSULE PO (20:00)
[2021-08-28 20:01] VITALS: BP 162/78; PULSE 74; RESP 16; O2SAT 99
== END 2021-08-28 20:04 | disposition home or self-care (01) ==
PROVIDERS: Emergency Provider Emergency Medicine; PCP Internal Medicine
DX: S20.212A Contusion of left front wall of thorax, initial encounter (principal); J18.9 Pneumonia, unspecified organism; W19.XXXA Unspecified fall, initial encounter
CPT/HCPCS: 71101; 96372; 99283

== ENCOUNTER 2021-09-18 13:50 | Inpatient (IN) | payer MEDICARE, MEDICAID, SELFPAY ==
[2021-09-18] VITALS (12 sets, daily range): BP systolic 89–114; BP diastolic 44–66; PULSE 61–70; RESP 13–18; TEMP 35.9–36.7; O2SAT 99–100; BMI 27.9; BMI 28.2
--- NOTE | 2021-09-18 14:16 | RAD_ITS ---
STUDY: X-RAY CHEST REASON FOR EXAM: Female, 50 years old. Dyspnea TECHNIQUE: Single AP portable view of the chest. COMPARISON: Comparison is made with prior study 08/28/2021. FINDINGS: EKG electrodes are seen. Minimal residual infiltrate is seen in the left upper lobe as well as in the right parahilar region. There is no demonstrated pleural abnormality. Normal size heart. Normal mediastinum and sonny. Normal visualized pulmonary arteries. Normal visualized aortic arch and descending thoracic aorta. Normal visualized thoracic spine. Normal visualized ribs, clavicles, and shoulders. A biliary stent is seen in the right upper quadrant. RAD/Chest 1 View (Portable) IMPRESSION: Mild residual infiltrate in the left upper lobe and in the right parahilar region. There has been improvement as compared to prior study. Electronically Signed: Dash Shin MD at 15:18 EDT , Service support ,
--- NOTE | 2021-09-18 14:16 | EKG12_ITS ---
Test Reason : HYPOTENSION Blood Pressure : / mmHG Vent. Rate : 060 BPM Atrial Rate : 060 BPM P-R Int : 184 ms QRS Dur : 114 ms QT Int : 552 ms P-R-T Axes : 020 -28 -22 degrees QTc Int : 552 ms Normal sinus rhythm Incomplete left bundle branch block Consider Voltage criteria for left ventricular hypertrophy Nonspecific T wave abnormality Prolonged QT Abnormal ECG Confirmed by PAM ZAMBRANO, RANCHO ([id number]), research editor NORA MENDES ([id number]) on 09/20/2021 8:25:44 AM Referred By: NARA/MONSE Confirmed By:RANCHO OROZCO MD
--- NOTE | 2021-09-18 14:38 | EDS_ITS ---
HPI History of Present Illness Chief Complaint: Dizziness Detail of Chief Complaint: I do not feel well Informant: patient and EMS (Apparently noncompliant with meds and was given all of her meds this morning.) Onset/Context/Timing Onset: - (Unknown poor informant) Context: - (Unknown) Timing: - (Unknown) Quality: I do not feel well Location: Generalized Current Severity: Cannot quantitate Maximum Severity: Unable to stand Worsened by: Orthostatic symptoms Relieved by: Nothing Associated Symptoms Associated Symptoms: I do not feel well Narrative Narrative: Patient is a middle-age woman with multiple medical problems who is noncompliant with meds and a poor informant who presents with generalized weakness and reported she does not feel well. She apparently is not compliant with her meds. Uncertain prior to today when she took her last dose of any medication. This is of importance since she is on prednisone and this may represent adrenal insufficiency. Patient denies everything. Of note she is a poor informant. Prior similar symptoms: No Recent Illness/Hospitalization: No [facility] Medical History Anemia Autoimmune hepatitis Bacteremia due to methicillin resistant Staphylococcus epidermidis Bipolar disorder Chronic pain Cirrhosis of liver Depression Diabetes mellitus Diabetes mellitus, type 2 Encephalopathy acute Reilly's thyroiditis Hepatic encephalopathy Hepatitis Hypertension Kidney disease MRSA bacteremia Pancreatitis Pancytopenia Peripheral neuropathy Schizoaffective disorder Severe sepsis Splenomegaly Home Medications magnesium oxide 400 mg PO BID 03/14/17 [History Last Taken 2 Weeks Ago ~09/04/21] Xifaxan 550 mg PO BID 11/04/17 [History Last Taken 2 Weeks Ago ~09/04/21] Latuda 40 mg PO QHS 03/20/21 [History Last Taken 2 Weeks Ago ~09/04/21] pantoprazole 40 mg PO DAILY 03/20/21 [History Last Taken 2 Weeks Ago ~09/04/21] sertraline 50 mg PO DAILY 03/20/21 [History Last Taken 2 Weeks Ago ~09/04/21] sucralfate [Carafate] 1 g PO ACHS 03/20/21 [History Last Taken 2 Weeks Ago ~09/04/21] carvedilol 25 mg tablet 25 mg PO BID #180 tab 04/25/21 [Rx Last Taken 2 Weeks Ago ~09/04/21] insulin lispro 100 unit/mL subcutaneous pen 8 unit SUBCUT TID 04/25/21 [History Last Taken Unknown] ursodiol 300 mg capsule 300 mg PO BID 04/25/21 [History Last Taken 2 Weeks Ago ~09/04/21] carbamazepine 100 mg PO BID 04/29/21 [History Last Taken 2 Weeks Ago ~09/04/21] amlodipine 5 mg PO DAILY 05/08/21 [History Last Taken 2 Weeks Ago ~09/04/21] spironolactone 50 mg PO DAILY 05/08/21 [History Last Taken 2 Weeks Ago ~09/04/21] levothyroxine 25 mcg PO DAILY 09/18/21 [History Last Taken 2 Weeks Ago ~09/04/21] pregabalin 75 mg PO BID 09/18/21 [History Last Taken 2 Weeks Ago ~09/04/21] zinc [Zinc Chelated] 50 mg PO DAILY 09/18/21 [History Last Taken 2 Weeks Ago ~09/04/21] Allergy/AdvReac Type Severity Reaction Status Date / Time adhesive Allergy Rash Verified 09/18/21 13:58 escitalopram oxalate Allergy blindness Verified 09/18/21 13:58 [From Lexapro] gabapentin [From Neurontin] Allergy Alan Verified 09/18/21 13:58 Jez's Syndrome lamotrigine [From Lamictal] Allergy Blindness Verified 09/18/21 13:58 Preservatives Allergy passed Uncoded 09/18/21 13:58 out, lungs deflated sour cream Allergy Anaphylaxis Uncoded 09/18/21 13:58 Family History Father CVA (cerebral vascular accident) Myocardial infarction Grandmother CHF (congestive heart failure) Sister Hypertension Surgical History H/O: hysterectomy History of abdominal paracentesis (10/2019) History of appendectomy History of cholecystectomy S/P TIPS (transjugular intrahepatic portosystemic shunt) Social History (Updated 09/18/21 @ 14:[address] Artie Valdez MD) household members: significant other Smoking Status: Never smoker details: Unknown substance use type: does not use ROS ROS ED Constitutional Constitutional ED: Denies chills, fever(s), subjective, sweats or weight loss Eyes Eyes: Denies blurry vision, change in vision or diplopia ENT ENT ED: Denies ear pain, rhinorrhea or sore throat Cardiovascular Cardiovascular: Denies chest pain, orthopnea or palpitations Respiratory/Chest Respiratory/Chest: Denies cough, dyspnea, dyspnea on exertion or orthopnea Gastrointestinal Gastrointestinal: Denies abdominal pain, diarrhea, melena, nausea or vomiting Genitourinary Genitourinary ED: Reports urinary frequency; Denies dysuria or hematuria Musculoskeletal Musculoskeletal: Denies arthralgias, back pain, myalgias or neck pain Integumentary Denies rash Neurologic Neurologic: Reports weakness; Denies headache(s) or paresthesias Endocrine Endocrinology: Reports polydipsia and polyuria; Denies cold intolerance or heat intolerance Allergic/Immunologic Allergic/Immunologic ED: Denies urticaria EXAM Physical Exam Const Vital Signs: 09/18/21 13:52 09/18/21 13:55 09/18/21 14:12 Temperature 96.8 F L Temperature Source Temporal Pulse Rate 62 61 Respiratory Rate 13 Respiratory Effort Normal Blood Pressure 89/44 L 92/48 L Blood Pressure Mean 59 62 Pulse Ox 99 Oxygen Delivery Method Room Air 09/18/21 14:35 09/18/21 15:14 Temperature Temperature Source Pulse Rate 65 62 Respiratory Rate 16 13 Respiratory Effort Blood Pressure 113/60 102/58 L Blood Pressure Mean 77 72 Pulse Ox 100 100 Oxygen Delivery Method Room Air Room Air Positive well nourished and well developed General Appearance ED: well developed, NAD, pallor and other Patient appears very pale. ; Negative for cyanotic or diaphoretic HEENT Reports TM's clear and dry mucous membranes HEENT Narrative: Head is atraumatic normocephalic. Tympanic Membrane ED: Yes TM's clear Mouth ED: Yes dry mucous membranes Mouth: dry mucous membranes Eyes PERRL and EOMs intact bilaterally General Eye ED: Yes pale conjunctiva; Negative for scleral icterus Neck no lymphadenopathy, supple and no JVD Chest Wall inspection of chest normal and palpation of chest normal Resp normal respiratory effort and No clear to auscultation bilaterally Effort and Inspection: Negative for pain with movement Auscultation: rales Cardio regular rate, regular rhythm, S1 normal heart sound, S2 normal heart sound and no murmurs GI normal to inspection, nondistended, normoactive bowel sounds, non-tender and non-distended; Negative for hepatosplenomegaly GI Narrative: No palpable or pulsatile mass. Auscultation: hypoactive bowel sounds Palpation: soft Back/Spine no CVA tenderness Cervical Spine: Negative for cervical spine tenderness Thoracic Spine / Upper Back: Negative for thoracic spinal tenderness or paraspinal muscle tenderness Extremity normal to inspection General Extremety ED: Negative for edema or tenderness General Extremity: Negative for edema Neuro CN's II-XII intact bilaterally and no sensory deficits noted Sensorium / Orientation: Negative for alert Motor Exam: strength 5/5 throughout Psych Negative for mental status grossly normal Appearance: other Slow psychomotor skills with slow speech. Patient answers simple questions correctly. Skin No no rashes or lesions noted and No no wounds Skin Narrative: Patient has multiple areas that she has picked. None of them appear infected. General Skin Exam: pallor; Negative for jaundice Lesions: lesion noted MDM MDM MDM Narrative Medical decision making narrative: With hypotension and long-term steroid use need to rule out adrenal insufficiency. Cortisol level was obtained. EKG was obtained rule out cardiac ischemia. Patient may have intermittently overmedicated herself and reason for hypotension since she had several hypotensive meds. Will obtain UA to assess for ketones as well as urinary tract infection. I was informed that BG T is 305. Doubt DKA since she is not tachypneic and does not have ketotic odor to her breath. Vital signs are marked for hypotension and hypothermia. Patient pressure responded to the first liter. Most recent blood pressure indicates she is hypotensive. Second liter was ordered. Cortisol is not low. She does have hypokalemia. Bolus was ordered. There is acute on chronic renal insufficiency. She has pancytopenia, which is chronic. Lactate level is elevated at 4.0. This may be due to hypotension and hypovolemia. This also may be adversely responsive to receiving all her meds which she had not taken in weeks. Of note her chest x-ray has improved from chest x-ray obtained August 28. Reviewing meds indicates she has history of hypothyroidism. Will obtain TSH as well. Case discussed with hospitalist. Patient to be admitted to PCU stepdown. Lab Data Labs: Laboratory Results - last 24 hr 09/18/21 09/18/21 09/18/21 13:53 13:53 13:53 WBC 3.8 L RBC 3.23 L Hgb 8.9 L Hct 26.4 L MCV 81.7 MCH 27.6 MCHC 33.7 RDW Std Deviation 43.3 RDW Coeff of Valentina 15.0 H Plt Count 103 L MPV 10.5 Immature Gran % (Auto) 0.300 Neut % (Auto) 69.7 Lymph % (Auto) 12.1 L [place] % (Auto) 10.0 Eos % (Auto) 5.8 H Baso % (Auto) 2.1 H Absolute Neuts (auto) 2.7 Absolute Lymphs (auto) 0.46 L Nucleated RBC % 0 Differential Comment Diff Path Review May foll Platelet Estimate SLT DEC RBC Morphology N CHROM Anisocytosis 1+ Sodium 134 L Potassium 2.6 L* Chloride 101 Carbon Dioxide 26.0 Anion Gap 7 BUN 10 Creatinine 1.57 H Estim Creat Clear Calc 45.33 Est GFR (MDRD) Af Amer 44 L Est GFR (MDRD) Non-Af 37 L BUN/Creatinine Ratio 6.4 L Glucose 318 H Lactic Acid Calcium 8.2 L Total Bilirubin 1.20 H AST 24 ALT 24 Alkaline Phosphatase 209 H Troponin I High Sens 13 Total Protein 6.6 Albumin 2.4 L Globulin 4.2 Albumin/Globulin Ratio 0.6 L Cortisol 21.80 Urine Color Urine Clarity Urine pH Ur Specific [place] Urine Protein Urine Glucose (UA) Urine Ketones Urine Occult Blood Urine Nitrite Urine Bilirubin Urine Urobilinogen Ur Leukocyte Esterase Urine RBC Urine WBC Ur Squamous Epith Cells Urine Bacteria Urine Mucus Carbamazepine 09/18/21 09/18/21 09/18/21 13:53 14:30 14:35 WBC RBC Hgb Hct MCV MCH MCHC RDW Std Deviation RDW Coeff of Valentina Plt Count MPV Immature Gran % (Auto) Neut % (Auto) Lymph % (Auto) [place] % (Auto) Eos % (Auto) Baso % (Auto) Absolute Neuts (auto) Absolute Lymphs (auto) Nucleated RBC % Differential Comment Diff Path Review Platelet Estimate RBC Morphology Anisocytosis Sodium Potassium Chloride Carbon Dioxide Anion Gap BUN Creatinine Estim Creat Clear Calc Est GFR (MDRD) Af Amer Est GFR (MDRD) Non-Af BUN/Creatinine Ratio Glucose Lactic Acid 4.0 H* Calcium Total Bilirubin AST ALT Alkaline Phosphatase Troponin I High Sens Total Protein Albumin Globulin Albumin/Globulin Ratio Cortisol Urine Color Yellow Urine Clarity Clear Urine pH 6.0 Ur Specific [place] 1.010 Urine Protein 15 H Urine Glucose (UA) 1000 H Urine Ketones Negative Urine Occult Blood 10 H Urine Nitrite Negative Urine Bilirubin Negative Urine Urobilinogen Normal Ur Leukocyte Esterase Negative Urine RBC 0 SEEN Urine WBC 0 SEEN Ur Squamous Epith Cells 0 SEEN Urine Bacteria 0 SEEN Urine Mucus 0 SEEN Carbamazepine < 0.5 L Radiography Chest X-Ray - ED: 1 View, Read by ED Physician and Chronic Changes (Infiltrates noted August 28 have improved. The infiltrates were right perihilar area inferior segment of the right lower lobe or superior segment of the right lower lobe. There is also an infiltrate noted in the left upper lobe.) Diagnostic Testing: Clinical Impression(s) from Imaging Studies Chest X-Ray 09/18/21 14:16 IMPRESSION: Mild residual infiltrate in the left upper lobe and in the right parahilar region. There has been improvement as compared to prior study. Electronically Signed: Dash Shin MD at 15:18 EDT , Service support , Critical Care Time Critical Care Time: Yes Critical care time (excluding procedures): 30-74 minutes (Total time 32 minutes), Including time spent: (History, physical, review of prior records, discussion with paramedics, documentation, initiation of therapy), Discussing w/Patient &/or Family/Infrastructure Analyst, Discussing w/Consultants and Arranging Admission or Transfer Discharge Plan Triage Chief Complaint: Dizziness ED Provider: Artie Valdez Dx/Rx/DC Orders Clinical Impression: Acute hypotension, Acidosis, lactic, Acute hyperglycemia, Pancytopenia, Acute hypokalemia, Acute on chronic renal insufficiency, History of hypothyroidism Prescriptions: No Action carvedilol 25 mg tablet 25 mg PO BID Qty: 180 RF: 3 magnesium oxide 400 MG tablet 400 mg PO BID RF: 0 Xifaxan 550 MG tablet 550 mg PO BID RF: 0 sucralfate [Carafate] 1 gram Tablet 1 g PO ACHS RF: 0 pantoprazole 40 mg Tablet,Delayed Release (Dr/Ec) 40 mg PO DAILY RF: 0 sertraline 50 mg Tablet 50 mg PO DAILY RF: 0 Latuda 40 mg tablet 40 mg PO QHS RF: 0 ursodiol 300 mg capsule 300 mg PO BID RF: 0 insulin lispro [Humalog KwikPen Insulin] 100 unit/mL insulin pen 8 unit SUBCUT TID RF: 0 carbamazepine 100 mg Tablet Extended Release 12 Hr 100 mg PO BID RF: 0 spironolactone 50 mg tablet 50 mg PO DAILY RF: 0 amlodipine 5 mg tablet 5 mg PO DAILY RF: 0 levothyroxine 25 mcg tablet 25 mcg PO DAILY RF: 0 zinc [Zinc Chelated] 50 mg Tablet 50 mg PO DAILY RF: 0 pregabalin 75 mg capsule 75 mg PO BID RF: 0 Primary Care Provider: Janay Canchola Referrals: Janay Canchola MD [Primary Care Provider] - Disposition Disposition: Acute Care Hospital [facility]
[2021-09-18 14:39] LABS: Bacteria 0 SEEN /hpf (None Seen); Mucous, Urine 0 SEEN /hpf (<or=2+); Red Blood Cells-Urine 0 SEEN /hpf (0-5); Squamous Epithelial Cells - UA 0 SEEN /hpf (5-10); White Blood Cells 0 SEEN /hpf (0-5)
[2021-09-18] MEDS: 0.9% Normal Saline 1,000 ML 999 ML IV (14:39)
[2021-09-18 14:46] LABS: Glucose, Dipstick 1000 mg/dl (Normal); Ketone-Dipstick Negative (Negative); Leukocyte Esterase-Dipstick Negative /ul (Negative); Nitrite-Dipstick Negative (Negative); Occult Blood-Urine 10 /ul (Negative); Protein-Dipstick 15 mg/dl (Negative); Urine Bilirubin Dipstick Negative (Negative); Urine Clarity Clear (Clear); Urine Urobilinogen Normal (Normal)
[2021-09-18 14:47] LABS: Color, Urine Yellow (Yellow)
[2021-09-18 14:51] LABS: Absolute Lymphocyte Count 0.46 X10^3/uL (0.83-4.51); Absolute Neutrophil Count 2.7 X10^3/uL (2.0-7.7); Basophil# 0.08 X10^3/uL; Basophil% 2.1 % (0-1); Eosinophil# 0.22 X10^3/uL; Eosinophils% 5.8 % (0-5); Hematocrit 26.4 % (37-47); Hemoglobin 8.9 g/dL (12.0-15.0); Lymphocyte # 0.46 X10^3/ul (0.83-4.51); Lymphocyte % 12.1 % (19-41); Mean Corp Hgb Conc 33.7 g/dL (32-36); Mean Corpuscular Hgb 27.6 pg (27.0-32.0); Mean Corpuscular Volume 81.7 fL (81-99); Mean Platelet Vol. 10.5 fl (6.2-12.0); Monocyte# 0.38 X10^3/uL; NRBC Flagged by Analyzer 0 % (0-5); Neutrophil # 2.65 X10^3/uL (2.7-7.7); Neutrophil % 69.7 % (47-70); POSITIVE DIFFERENTIAL YES; Platelet Count 103 K/mm3 (150-450); RBC Distribution Width SD 43.3 fl (35.1-43.9); Red Blood Count 3.23 M/mm3 (4.2-5.4); White Blood Count 3.8 K/mm3 (4.4-11.0)
[2021-09-18 14:52] LABS: Differential Indicated SCAN CRITERIA MET
[2021-09-18 15:07] LABS: Carbamazepine (Tegretol) < 0.5 ug/mL (4.0-12.0)
[2021-09-18 15:08] LABS: ALB/GLOB Ratio 0.6 RATIO (0.9-2.4); AST(SGOT) 24 U/L (15-37); Alanine Aminotransfer ALT/SGPT 24 U/L (13-56); Albumin, Serum 2.4 g/dL (3.2-5.0); Alkaline Phosphatase 209 U/L (45-117); Anion Gap 7 (5-15); BUN 10 mg/dL (7-18); BUN/Creat Ratio 6.4 RATIO (10-20); Calcium,Total 8.2 mg/dL (8.5-10.1); Chloride 101 mmol/L (98-107); Creatinine, Serum 1.57 mg/dL (0.55-1.02); EST Glomerular Filtration Rate 37 mL/min (>60); Est Glom Filt Rate - Afr Amer 44 mL/min (>60); Estimated Creatinine Clearance 45.33 ml/min; Globulin 4.2 g/dL (2.2-4.2); Glucose 318 mg/dL (74-106); Potassium 2.6 mmol/L (3.5-5.1); Protein, Total 6.6 g/dL (6.4-8.2); Sodium Level 134 mmol/L (136-145); Troponin-I HS 13 pg/mL (3.0-54.0)
[2021-09-18 15:22] LABS: Anisocytosis 1+; Platelet Estimate SLT DEC (ADEQ); Red Cell Morphology N CHROM NORMAL (NORM C&C)
[2021-09-18] MEDS: 0.9% Normal Saline 1,000 ML 1000 ML IV (15:45)
[2021-09-18] MEDS: Potassium Chloride 10mEq/100mL 10 MEQ/100 ML IV.SOLN. 100 MEQ IV BOLUS ×6 (15:46→23:32)
--- NOTE | 2021-09-18 15:49 | PCM.HP.STD ---
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, Hx Reilly's thyroiditis, HTN, HLD, Chronic pancytopenia, Chronic pain syndrome who presents to the [facility] ED on 09/18/21 with history of recent evaluation 08/28/2021 with diagnosis of bilateral pneumonia at that time discharged on oral doxycycline who now represents with ongoing fatigue, malaise, dry nonproductive cough with headaches primarily in the posterior region, throbbing with decreased intake and accordingly decreased urine output unfortunately failing to take her medications aside from doxycycline recently for least the last 2 weeks with evaluation per visiting nurse with purportedly administration of all her routine medications with hypotension following with referral to ED for evaluation. Work-up in the ED included T 96.8, heart rate 62, BP initially 89/44 with most recent repeat monitor 58, respiratory rate 13, 99% on room air, CBC with WBC 3.8, hemoglobin 8.9, platelet 103 with lymphopenia, CMP with sodium 134, potassium 2.6, BUN/creatinine 10/1.57, glucose 318, lactic acid 4, total bilirubin 1.20, AST/ALT 24/24, alk phos 209, cortisol 21.8, troponin 13, chest x-ray with mild residual infiltrate left upper lobe and right perihilar region however improved from prior study, urinalysis not marked appearing. [facility] Medical History Anemia Autoimmune hepatitis Bacteremia due to methicillin resistant Staphylococcus epidermidis Bipolar disorder Chronic pain Cirrhosis of liver Depression Diabetes mellitus Diabetes mellitus, type 2 Encephalopathy acute Reilly's thyroiditis Hepatic encephalopathy Hepatitis Hypertension Kidney disease MRSA bacteremia Pancreatitis Pancytopenia Peripheral neuropathy Schizoaffective disorder Severe sepsis Splenomegaly Home Medications magnesium oxide 400 mg PO BID 03/14/17 [History Last Taken 2 Weeks Ago ~09/04/21] Xifaxan 550 mg PO BID 11/04/17 [History Last Taken 2 Weeks Ago ~09/04/21] Latuda 40 mg PO QHS 03/20/21 [History Last Taken 2 Weeks Ago ~09/04/21] pantoprazole 40 mg PO DAILY 03/20/21 [History Last Taken 2 Weeks Ago ~09/04/21] sertraline 50 mg PO DAILY 03/20/21 [History Last Taken 2 Weeks Ago ~09/04/21] sucralfate [Carafate] 1 g PO ACHS 03/20/21 [History Last Taken 2 Weeks Ago ~09/04/21] carvedilol 25 mg tablet 25 mg PO BID #180 tab 04/25/21 [Rx Last Taken 2 Weeks Ago ~09/04/21] insulin lispro 100 unit/mL subcutaneous pen 8 unit SUBCUT TID 04/25/21 [History Last Taken Unknown] ursodiol 300 mg capsule 300 mg PO BID 04/25/21 [History Last Taken 2 Weeks Ago ~09/04/21] carbamazepine 100 mg PO BID 04/29/21 [History Last Taken 2 Weeks Ago ~09/04/21] amlodipine 5 mg PO DAILY 05/08/21 [History Last Taken 2 Weeks Ago ~09/04/21] spironolactone 50 mg PO DAILY 05/08/21 [History Last Taken 2 Weeks Ago ~09/04/21] levothyroxine 25 mcg PO DAILY 09/18/21 [History Last Taken 2 Weeks Ago ~09/04/21] pregabalin 75 mg PO BID 09/18/21 [History Last Taken 2 Weeks Ago ~09/04/21] zinc [Zinc Chelated] 50 mg PO DAILY 09/18/21 [History Last Taken 2 Weeks Ago ~09/04/21] Allergy/AdvReac Type Severity Reaction Status Date / Time adhesive Allergy Rash Verified 09/18/21 13:58 escitalopram oxalate Allergy blindness Verified 09/18/21 13:58 [From Lexapro] gabapentin [From Neurontin] Allergy Alan Verified 09/18/21 13:58 Jez's Syndrome lamotrigine [From Lamictal] Allergy Blindness Verified 09/18/21 13:58 Preservatives Allergy passed Uncoded 09/18/21 13:58 out, lungs deflated sour cream Allergy Anaphylaxis Uncoded 09/18/21 13:58 Family History (Updated 09/18/21 @ 16:[address] Barbara Mcadams MD) Father CVA (cerebral vascular accident) Myocardial infarction Heart disease CAD (coronary artery disease) Grandmother CHF (congestive heart failure) Sister Hypertension Mother Heart disease Surgical History H/O: hysterectomy History of abdominal paracentesis (10/2019) History of appendectomy History of cholecystectomy S/P TIPS (transjugular intrahepatic portosystemic shunt) Social History (Updated 09/18/21 @ 16:[address] Barbara Mcadams MD) household members: significant other Smoking Status: Never smoker alcohol intake: never details: Unknown substance use type: does not use ROS ROS Narrative Admission Review of Systems: CONSTITUTIONAL: No weight loss, fever, chills, + weakness or fatigue. HEENT: + headaches. Eyes: No visual loss, blurred vision, double vision or yellow sclerae. Ears, Nose, Throat: No hearing loss, sneezing, congestion, runny nose or sore throat. SKIN: No rash or itching, lesions, wounds. CARDIOVASCULAR: No chest pain, chest pressure or chest discomfort, palpitations, edema, orthopnea, syncopal events. RESPIRATORY: + shortness of breath, cough without marked sputum, No wheezing, hemoptysis. GASTROINTESTINAL: + anorexia, No nausea, vomiting or diarrhea, abdominal pain, melena, BRBPR. GENITOURINARY: No dysuria, frequency, urgency or retention. NEUROLOGICAL: + headache, dizziness, No syncope, paralysis, ataxia, numbness or tingling in the extremities, focal weakness, change in bowel or bladder control, seizure. MUSCULOSKELETAL: + muscle, back pain, joint pain or stiffness. HEMATOLOGIC: + anemia, bleeding or bruising. LYMPHATICS: No enlarged nodes. No history of splenectomy. PSYCHIATRIC: + history of depression or anxiety. ENDOCRINOLOGIC: No reports of sweating, cold or heat intolerance. No polyuria or polydipsia. ALLERGIES: No history of asthma, hives, eczema or rhinitis. Vital Signs Vital Signs Vital Signs: 09/18/21 13:52 09/18/21 13:55 09/18/21 14:12 Temperature 96.8 F L Temperature Source Temporal Pulse Rate 62 61 Respiratory Rate 13 Respiratory Effort Normal Blood Pressure 89/44 L 92/48 L Blood Pressure Mean 59 62 Pulse Ox 99 Oxygen Delivery Method Room Air 09/18/21 14:35 09/18/21 15:14 Temperature Temperature Source Pulse Rate 65 62 Respiratory Rate 16 13 Respiratory Effort Blood Pressure 113/60 102/58 L Blood Pressure Mean 77 72 Pulse Ox 100 100 Oxygen Delivery Method Room Air Room Air Weight Weight: 194 lb 14.218 oz Body Mass Index (BMI) 27.9 Physical Exam Narrative Physical Examination: General: Awake, alert, oriented x 3 and cooperative, seated upright in the ED bed in no apparent distress, fatigued appearing. Skin: Normal color, normal turgor, no icterus, no cyanosis. HEENT: AT/NC, EOMI, PERRLA, dry MM, no carotid bruits or JVD noted. Lungs: Despite recent bilateral pneumonia, improved on film, decent breath sounds bilaterally, good effort, no obvious rales, rhonchi or wheezing. Heart: Regular rate and rhythm; no gallop, rub audible. Abdomen: Soft, NTTP, ND, moderately hyperactive BS, + HSM. Extremities: No cyanosis, clubbing, or edema. Neurological: Patient awake, alert, oriented as noted, cognitive function appears intact, answering questions and interacting appropriately although slow responses which is baseline for patient; pupils equally reactive to light and accommodation, cranial nerves II-XII grossly normal, moving all 4 extremities, no focal deficits, strength severely global decrease secondary to acute presentation. Psychiatric: Affect appears fatigued, no acute evidence of depressive or anxiety feelings. Results Lab / Micro Data Result Diagrams: 09/18/21 13:53 09/18/21 13:53 Labs: Laboratory Results - last 24 hr 09/18/21 13:53: Cortisol 21.80 09/18/21 13:53: WBC 3.8 L, RBC 3.23 L, Hgb 8.9 L, Hct 26.4 L, MCV 81.7, MCH 27.6, MCHC 33.7, RDW Std Deviation 43.3, RDW Coeff of Valentina 15.0 H, Plt Count 103 L, MPV 10.5, Immature Gran % (Auto) 0.300, Neut % (Auto) 69.7, Lymph % (Auto) 12.1 L, [place] % (Auto) 10.0, Eos % (Auto) 5.8 H, Baso % (Auto) 2.1 H, Absolute Neuts (auto) 2.7, Absolute Lymphs (auto) 0.46 L, Nucleated RBC % 0, Differential Comment , Diff Path Review May foll, Platelet Estimate SLT DEC, RBC Morphology N CHROM, Anisocytosis 1+ 09/18/21 13:53: Sodium 134 L, Potassium 2.6 L*, Chloride 101, Carbon Dioxide 26.0, Anion Gap 7, BUN 10, Creatinine 1.57 H, Estim Creat Clear Calc 45.33, Est GFR (MDRD) Af Amer 44 L, Est GFR (MDRD) Non-Af 37 L, BUN/Creatinine Ratio 6.4 L, Glucose 318 H, Calcium 8.2 L, Total Bilirubin 1.20 H, AST 24, ALT 24, Alkaline Phosphatase 209 H, Troponin I High Sens 13, Total Protein 6.6, Albumin 2.4 L, Globulin 4.2, Albumin/Globulin Ratio 0.6 L 09/18/21 13:53: Carbamazepine < 0.5 L 09/18/21 14:30: Urine Color Yellow, Urine Clarity Clear, Urine pH 6.0, Ur Specific [place] 1.010, Urine Protein 15 H, Urine Glucose (UA) 1000 H, Urine Ketones Negative, Urine Occult Blood 10 H, Urine Nitrite Negative, Urine Bilirubin Negative, Urine Urobilinogen Normal, Ur Leukocyte Esterase Negative, Urine RBC 0 SEEN, Urine WBC 0 SEEN, Ur Squamous Epith Cells 0 SEEN, Urine Bacteria 0 SEEN, Urine Mucus 0 SEEN 09/18/21 14:35: Lactic Acid 4.0 H* Radiology Impression Chest X-Ray 09/18/21 14:16 IMPRESSION: Mild residual infiltrate in the left upper lobe and in the right parahilar region. There has been improvement as compared to prior study. 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, Hx Reilly's thyroiditis, HTN, HLD, Chronic pancytopenia, Chronic pain syndrome who presents to the [facility] ED on 09/18/21 with history of recent evaluation 08/28/2021 with diagnosis of bilateral pneumonia at that time discharged on oral doxycycline who now represents with ongoing fatigue, malaise, dry nonproductive cough with headaches primarily in the posterior region, throbbing with decreased intake and accordingly decreased urine output unfortunately failing to take her medications aside from doxycycline recently for least the last 2 weeks with evaluation per visiting nurse with purportedly administration of all her routine medications with hypotension following. 1. Recent bilateral pneumonia, presumed community: CXR in the ED w/ clinical improvement from prior. Patient is afebrile. Will obtain Covid PCR to be cautious as well as blood culture x2. Patient recently completed course of doxycycline. Respiratory viral panel, antigens requested. Patient notes dry cough therefore will defer sputum request. 2. Lactic acidosis: No obvious current evidence of any infection, denies any recent fever or chills, chest x-ray improving, urinalysis not marked appearing, will obtain blood cultures to be cautious, continue aggressive hydration I do suspect dehydration likely component, trend LA per facility protocol. Procalcitonin requested additionally. 3. Hypotension with history of hypertension: Holding regimen given presentation as noted above, resume once clinically appropriate, suspect secondary hypovolemic in nature, no obvious evidence of infection and chest x-ray is improving but will continue evaluation as noted, continue hydration. 4. Hypokalemia: Admission K+ 2.6, magnesium level requested, supplementation given, repeat level in AM. 5. Mild acute renal insufficiency: Secondary to recent poor intake and potentially nephrotoxic medication, hypertension. Admission BUN/Cr 10/1.57, prior baseline creatinine noted to be 1.1-1.3. Will hydrate, hold nephrotoxic medications and repeat chemistry in AM. If no improvement would plan FeNa and renal ultrasound assessment. 6. Failure to thrive, adult: Likely secondary to recent #1, presenting with #2, #3, #4, continue treatments as noted, maintain on fall precautions, PT/OT/case management consultation for discharge planning. Patient per history and from discussion with staff is noncompliant often with medications. 7. Diabetes mellitus type II with hyperglycemia: Hold oral home regimen, continue home insulin regimen cautiously with decreased to one half is not marked intake, ADA diet, accu checks w/ ISS, nutrition consulted, hemoglobin A1c requested. 8. Hypothyroidism: Continue home synthroid regimen, TSH and free T4 pending. 9. Anxiety and depression/bipolar disorder/schizoaffective disorder: We will continue patient home carbamazepine regimen with level request, also continue Latuda. 10. Autoimmune hepatitis with liver cirrhosis: Patient status post TIPS, hepatic profile not marked appearing, will continue Xifaxan,, ursodiol, holding Coreg given presentation as noted above. 11. GERD: We will continue patient on PPI as well as sucralfate. 12. Chronic pancytopenia: Admission CBC with WC 3.8, hemoglobin 8.9, platelet 103 with lymphopenia, similar to prior, rapid Covid PCR pending as noted above and continue work up as above #1, #2, #3, #4, #5, #6. 13. DVT prophylaxis: SCDs, hold on chemoprophylaxis given pancytopenia, low threshold to add if remains stable. 14 CODE status: Patient DEVENDRA is her Sister Cruzito and living will is currently in place. Discussed CODE status at length including difference between FULL code, DNR-CCA and DNR-CC status. Following discussions about the differences in these status, requested Full Code status. Advanced Care Planning Face to Face Time: 16 minutes. Charges/Coding Visit Charges Inpatient E&M: 56626 Init Hosp L3 Procedures Hospitalists Procedures: 12641 Advncd Care Plan 30 Min
[2021-09-18 17:00] LABS: Magnesium 1.9 mg/dL (1.6-2.6); Thyroid Stim Hormone (TSH) 5.12 uIU/mL (0.358-3.74)
[2021-09-18 17:19] LABS: Carbamazepine (Tegretol) 0.5 ug/mL (4.0-12.0)
--- NOTE | 2021-09-18 17:43 | PCS.PANDOC ---
PANDEMIC DOCUMENTATION INITIATED: Date: 07/03/2021 Time: 190
[2021-09-18] MEDS: 0.9% Normal Saline 1,000 ML 125 ML IV (18:42)
[2021-09-18 18:53] LABS: Reflex Lactate? Y
[2021-09-18 20:15] LABS: Anion Gap 4 (5-15); BUN 11 mg/dL (7-18); BUN/Creat Ratio 8.4 RATIO (10-20); Calcium,Total 7.4 mg/dL (8.5-10.1); Chloride 109 mmol/L (98-107); Creatinine, Serum 1.31 mg/dL (0.55-1.02); EST Glomerular Filtration Rate 45 mL/min (>60); Est Glom Filt Rate - Afr Amer 55 mL/min (>60); Estimated Creatinine Clearance 54.32 ml/min; Glucose 172 mg/dL (74-106); Potassium 3.8 mmol/L (3.5-5.1); Sodium Level 135 mmol/L (136-145)
[2021-09-18 20:20] LABS: Lactic Acid 1.5 mmol/L (0.4-1.9)
[2021-09-18] MEDS: Ursodiol 250 MG Tablet PO (21:48)
[2021-09-18] MEDS: carBAMazepine 200 MG Tablet 100 MG PO (21:48)
[2021-09-18] MEDS: Sucralfate 1 GM Tablet PO (21:48)
[2021-09-18] MEDS: rifAXIMin 550 MG Tablet PO (21:49)
[2021-09-18] MEDS: Pregabalin 75 MG Capsule PO (21:59)
[2021-09-18] MEDS: Insulin Lispro 100 UNIT/ML INSULN.PEN SC (21:59)
[2021-09-18 22:46] LABS: Bedside Glucose 258 mg/dL (70-110)
[2021-09-19 03:00] VITALS: PULSE 74
[2021-09-19] MEDS: 0.9% Normal Saline 1,000 ML 125 ML IV (03:32)
[2021-09-19 05:04] VITALS: BP 118/64; PULSE 76; RESP 16; TEMP 36.4; O2SAT 97
[2021-09-19 05:40] LABS: Absolute Lymphocyte Count 0.46 X10^3/uL (0.83-4.51); Absolute Neutrophil Count 1.7 X10^3/uL (2.0-7.7); Basophil# 0.04 X10^3/uL; Basophil% 1.6 % (0-1); Eosinophil# 0.08 X10^3/uL; Eosinophils% 3.2 % (0-5); Hematocrit 23.4 % (37-47); Hemoglobin 7.7 g/dL (12.0-15.0); Lymphocyte # 0.46 X10^3/ul (0.83-4.51); Lymphocyte % 18.5 % (19-41); Mean Corp Hgb Conc 32.9 g/dL (32-36); Mean Corpuscular Hgb 27.4 pg (27.0-32.0); Mean Corpuscular Volume 83.3 fL (81-99); Monocyte# 0.19 X10^3/uL; Monocyte% 7.7 % (0-10); NRBC Flagged by Analyzer 0 % (0-5); Neutrophil # 1.71 X10^3/uL (2.7-7.7); POSITIVE COUNT YES; POSITIVE DIFFERENTIAL YES; Platelet Count 67 K/mm3 (150-450); RBC Distribution Width CV 15.3 % (11.6-14.6); RBC Distribution Width SD 45.6 fl (35.1-43.9); Red Blood Count 2.81 M/mm3 (4.2-5.4); White Blood Count 2.5 K/mm3 (4.4-11.0)
[2021-09-19 06:10] LABS: Differential Indicated SCAN CRITERIA MET
[2021-09-19] MEDS: Acetaminophen 325 MG Tablet 650 MG PO (06:18)
[2021-09-19] MEDS: Levothyroxine 25 MCG TABLET PO (06:18)
[2021-09-19] MEDS: Sucralfate 1 GM Tablet PO (06:18)
[2021-09-19] MEDS: Insulin Lispro 100 UNIT/ML INSULN.PEN SC ×2 (06:21→12:13)
[2021-09-19 06:25] LABS: ALB/GLOB Ratio 0.5 RATIO (0.9-2.4); AST(SGOT) 23 U/L (15-37); Alanine Aminotransfer ALT/SGPT 21 U/L (13-56); Albumin, Serum 1.8 g/dL (3.2-5.0); Alkaline Phosphatase 141 U/L (45-117); Anion Gap 7 (5-15); BUN 13 mg/dL (7-18); Calcium,Total 7.1 mg/dL (8.5-10.1); Chloride 107 mmol/L (98-107); Creatinine, Serum 1.44 mg/dL (0.55-1.02); EST Glomerular Filtration Rate 41 mL/min (>60); Est Glom Filt Rate - Afr Amer 49 mL/min (>60); Estimated Creatinine Clearance 49.42 ml/min; Globulin 3.5 g/dL (2.2-4.2); Glucose 372 mg/dL (74-106); Potassium 3.8 mmol/L (3.5-5.1); Protein, Total 5.3 g/dL (6.4-8.2); Sodium Level 134 mmol/L (136-145); T4 Free Direct 1.08 ng/dL (0.76-1.46)
[2021-09-19 06:46] LABS: Bedside Glucose 378 mg/dL (70-110)
[2021-09-19 06:48] LABS: Differential Comment SCANNED; Platelet Estimate MOD DEC (ADEQ)
[2021-09-19 07:13] VITALS: PULSE 75
--- NOTE | 2021-09-19 08:18 | PN.HOSP_ITS ---
Objective Data Objective Data Vital Signs: Vital Signs Temp Pulse Resp BP Pulse Ox 97.5 F L 75 16 118/64 97 09/19/21 05:04 09/19/21 07:13 09/19/21 05:04 09/19/21 05:04 09/19/21 05:04 Oxygen Delivery Method Room Air Weight: 198 lb 10.184 oz Body Mass Index (BMI) 28.2 Intake & Output: Intake and Output for Last 24 Hours 09/17/21 09/18/21 09/19/21 23:59 23:59 23:59 Intake Total 2500 / 2500 1100 / 1100 Output Total 400 / 400 Balance 2500 / 2500 700 / 700 Lab / Micro Data Result Diagrams: 09/19/21 05:20 09/19/21 05:20 Labs: Laboratory Results - last 24 hr 09/18/21 13:53: Cortisol 21.80 09/18/21 13:53: WBC 3.8 L, RBC 3.23 L, Hgb 8.9 L, Hct 26.4 L, MCV 81.7, MCH 27.6, MCHC 33.7, RDW Std Deviation 43.3, RDW Coeff of Valentina 15.0 H, Plt Count 103 L, MPV 10.5, Immature Gran % (Auto) 0.300, Neut % (Auto) 69.7, Lymph % (Auto) 12.1 L, [place] % (Auto) 10.0, Eos % (Auto) 5.8 H, Baso % (Auto) 2.1 H, Absolute Neuts (auto) 2.7, Absolute Lymphs (auto) 0.46 L, Nucleated RBC % 0, Differential Comment , Diff Path Review May foll, Platelet Estimate SLT DEC, RBC Morphology N CHROM, Anisocytosis 1+ 09/18/21 13:53: Sodium 134 L, Potassium 2.6 L*, Chloride 101, Carbon Dioxide 26.0, Anion Gap 7, BUN 10, Creatinine 1.57 H, Estim Creat Clear Calc 45.33, Est GFR (MDRD) Af Amer 44 L, Est GFR (MDRD) Non-Af 37 L, BUN/Creatinine Ratio 6.4 L, Glucose 318 H, Calcium 8.2 L, Total Bilirubin 1.20 H, AST 24, ALT 24, Alkaline Phosphatase 209 H, Troponin I High Sens 13, Total Protein 6.6, Albumin 2.4 L, Globulin 4.2, Albumin/Globulin Ratio 0.6 L 09/18/21 13:53: Carbamazepine < 0.5 L 09/18/21 13:53: Magnesium 1.9, TSH 5.12 H 09/18/21 13:53: Procalcitonin 0.10 H 09/18/21 14:30: Urine Color Yellow, Urine Clarity Clear, Urine pH 6.0, Ur Specific [place] 1.010, Urine Protein 15 H, Urine Glucose (UA) 1000 H, Urine Ketones Negative, Urine Occult Blood 10 H, Urine Nitrite Negative, Urine Bilirubin Negative, Urine Urobilinogen Normal, Ur Leukocyte Esterase Negative, Urine RBC 0 SEEN, Urine WBC 0 SEEN, Ur Squamous Epith Cells 0 SEEN, Urine Bacteria 0 SEEN, Urine Mucus 0 SEEN 09/18/21 14:35: Lactic Acid 4.0 H* 09/18/21 16:40: Carbamazepine 0.5 L 09/18/21 17:17: COVID-19 ([place]) Not Detected 09/18/21 19:35: Sodium 135 L, Potassium 3.8, Chloride 109 H, Carbon Dioxide 22.0, Anion Gap 4 L, BUN 11, Creatinine 1.31 H, Estim Creat Clear Calc 54.32, Est GFR (MDRD) Af Amer 55 L, Est GFR (MDRD) Non-Af 45 L, BUN/Creatinine Ratio 8.4 L, Glucose 172 H, Calcium 7.4 L 09/18/21 19:35: Lactic Acid 1.5 09/18/21 21:53: POC Glucose 258 H 09/19/21 05:20: WBC 2.5 L, RBC 2.81 L, Hgb 7.7 L, Hct 23.4 L, MCV 83.3, MCH 27.4, MCHC 32.9, RDW Std Deviation 45.6 H, RDW Coeff of Valentina 15.3 H, Plt Count 67 L, MPV 12.0, Immature Gran % (Auto) 0.000, Neut % (Auto) 69.0, Lymph % (Auto) 18.5 L, [place] % (Auto) 7.7, Eos % (Auto) 3.2, Baso % (Auto) 1.6 H, Absolute Neuts (auto) 1.7 L, Absolute Lymphs (auto) 0.46 L, Nucleated RBC % 0, Differential Comment SCANNED, Diff Path Review March foll, Platelet Estimate MOD DEC 09/19/21 05:20: Sodium 134 L, Potassium 3.8, Chloride 107, Carbon Dioxide 20.0 L , Anion Gap 7, BUN 13, Creatinine 1.44 H, Estim Creat Clear Calc 49.42, Est GFR (MDRD) Af Amer 49 L, Est GFR (MDRD) Non-Af 41 L, BUN/Creatinine Ratio 9.0 L, Glucose 372 H, Calcium 7.1 L, Total Bilirubin 0.60, AST 23, ALT 21, Alkaline Phosphatase 141 H, Total Protein 5.3 L, Albumin 1.8 L, Globulin 3.5, Albumin/Susan bulin Ratio 0.5 L, Free T4 1.08 09/19/21 06:20: POC Glucose 378 H Micro: Microbiology 09/19/21 04:18 Urine Catheter - Catheter Streptococcus pneumoniae Antigen (M - Final 09/19/21 04:18 Urine Catheter - Hill Legionella Antigen - Final 09/18/21 17:17 Mucosa - Nose Respiratory Panel (PCR) - Final Radiography Diagnostic Testing: Radiology Impression Chest X-Ray 09/18/21 14:16 IMPRESSION: Mild residual infiltrate in the left upper lobe and in the right parahilar region. There has been improvement as compared to prior study. Electronically Signed: Dash Shin MD at 15:18 EDT , Service support , Assessment & Plan Assessment/Plan (1) Acidosis, lactic: (2) Acute hypotension: PLAN: The patient is a 50 y/o F with multiple comorbidities including cirrhosis of liver probably due to autoimmune hepatitis came to ER with generalized weakness accompanied with decreased oral intake and urine output 1. Recent bilateral pneumonia, presumed community: CXR in the ED w/ clinical improvement from prior. Patient is afebrile. Urinary antigens of Legionella and Streptococcus are negative. Respiratory panel negative. COVID-19 PCR negative. Chest x-ray shows mild residual right perihilar infiltrate and left upper lobe although improved from the previous study. 2. Lactic acidosis: Do not have current objective evidence of infection. UA shows 0 WBC, RBC LE and nitrite negative. No bacteria. IV fluid. Cortisol level 21.8. Free T4 normal. TSH 5.12. Procalcitonin 0.1, mildly elevated. Repeat lactic acid 1.5 normal 3. Hypotension with history of hypertension: Continue hydration. 4. Hypokalemia: Admission K+ 2.6, magnesium level normal. 5. Mild acute renal insufficiency with history of CKD stage IIIa: Creatinine level 1.57 improved to 1.44. Patient has history of elevated creatinine, highest 1.76 on 08/20. 6. Failure to thrive, adult: 7. Diabetes mellitus type II with hyperglycemia: On Accu-Chek insulin coverage Humalog sliding scale. A1c pending. 8. Hypothyroidism: Continue home synthroid regimen, TSH 5.12. Free T4 1.08. Increase levothyroxine to 50 mcg daily as patient seems to have symptoms of hypothyroidism including weakness, tiredness and fatigue 9. Anxiety and depression/bipolar disorder/schizoaffective disorder: continue patient home carbamazepine regimen with level request, also continue Latuda. 10. Autoimmune hepatitis with liver cirrhosis: Patient status post TIPS, hepatic profile not marked appearing, will continue Xifaxan,, ursodiol, holding Coreg given presentation as noted above. 11. GERD: We will continue patient on PPI as well as sucralfate. 12. Chronic pancytopenia with history of cirrhosis 13. DVT prophylaxis: SCDs, hold on chemoprophylaxis given pancytopenia, low threshold to add if remains stable. 14 CODE status: Patient DEVENDRA is her Sister Cruzito and living will is currently in place. Full code Clinical Impression(s) from Imaging Studies Chest X-Ray 09/18/21 14:16
[2021-09-19 08:57] LABS: Hemoglobin A1c 10.7 % (3.8-5.6)
[2021-09-19 09:09] LABS: Phosphorus 1.6 mg/dL (2.5-4.9)
[2021-09-19 09:21] VITALS: BP 114/62; PULSE 70; RESP 16; TEMP 36.5; O2SAT 97
[2021-09-19] MEDS: carBAMazepine 200 MG Tablet 100 MG PO (09:31)
[2021-09-19] MEDS: Ursodiol 250 MG Tablet PO (09:31)
[2021-09-19] MEDS: rifAXIMin 550 MG Tablet PO (09:31)
[2021-09-19] MEDS: Sertraline 50 MG Tablet PO (09:31)
[2021-09-19] MEDS: Pantoprazole Sodium 40 MG Tablet PO (09:32)
[2021-09-19] MEDS: Pregabalin 75 MG Capsule PO (09:38)
--- NOTE | 2021-09-19 10:50 | CASEMGMT ---
TAMIKO MELLO Face to Face with patient for initial transition planning/care coordination assessment. RN CM introduced self and role at [facility]. Patient lying in bed, alert and oriented. Patient willing to participate in assessment and is able to answer all questions appropriately. Care providers, pharmacy, and demographics verified. Patient wishes to discharge home with resumption of care with [facility] Patient states she has no further needs or concerns at this time. CM to follow for discharge planning needs that may arise. PCP: Jesika Specialists: Sher, hematology; Adrián, endocrinology; Josh, psych; follows with liver specialist at [facility] Preferred Pharmacy: [place] Insurance: [employer] Prescription Benefit: yes Living Will/HPOA: yes, sister James Nichole LNOK: sister, significant other. Living Arrangements: Patient lives with significant other and 16yo autistic son in a 2 story home. Patient states she is able to ambulate stairs. Transportation: significant other DME/HHC: Patient states she has shower chair, BSC, cane, walker, rollator, grab bars at home. [facility]. Patient has CM with waiver program. Disposition Plan: Patient to discharge home with [facility], family support, and follow-up plans in place. Josefa VILLALOBOS, RN, CM
--- NOTE | 2021-09-19 11:14 | PCM.DC ---
Discharge Instructions Diet Discharge Diet: 8 Cup Fluid Restriction and 2000 mg Sodium Diet Activity Discharge Activity: May Not Drive Weight Bearing Status: Weight bearing as tolerated Dressing / Incision Call your doctor if you observe: Fever of 101 or Higher, Coldness, Increased Pain, Numbness or Tingling, Change in Color, Inability to urinate, Inability to have a bowel movement, Using more than 1 pad per hour, Shortness of breath, Dizziness, Fainting spells, Swelling in the ankles, Chest pain, Prolonged hiccupping, Increased palpitations (irregular heartbeat) and Calf discomfort Follow Up Care Test Results: Test results from this visit will be discussed in further detail at your follow-up appointment, if applicable. Discharge Plan Admission Admit Date/Time: 09/18/21 16:15 Primary Reason for Your Visit: Hepatic encephalopathy, hypotension Attending Provider: Terry Parry Primary Care Provider: Janay Canchola Discharge Orders/Prescriptions Prescriptions: Continued magnesium oxide 400 MG tablet 400 mg PO BID RF: 0 Xifaxan 550 MG tablet 550 mg PO BID RF: 0 sucralfate [Carafate] 1 gram Tablet 1 g PO ACHS RF: 0 pantoprazole 40 mg Tablet,Delayed Release (Dr/Ec) 40 mg PO DAILY RF: 0 sertraline 50 mg Tablet 50 mg PO DAILY RF: 0 Latuda 40 mg tablet 40 mg PO QHS RF: 0 ursodiol 300 mg capsule 300 mg PO BID RF: 0 carbamazepine 100 mg Tablet Extended Release 12 Hr 100 mg PO BID RF: 0 spironolactone 50 mg tablet 50 mg PO DAILY RF: 0 zinc 50 mg Tablet 50 mg PO DAILY RF: 0 pregabalin 75 mg capsule 75 mg PO BID RF: 0 Changed carvedilol 25 mg tablet 12.5 mg PO BID Qty: 180 RF: 3 levothyroxine 25 mcg tablet 50 mcg PO DAILY Qty: 30 RF: 0 insulin lispro [Humalog KwikPen Insulin] 100 unit/mL insulin pen 10 unit SUBCUT TID Qty: 0 RF: 0 Discontinued amlodipine 5 mg tablet 5 mg PO DAILY RF: 0 Referrals / Follow Up: Janay Canchola MD [Primary Care Provider] - Within 2 Weeks Shay Davis DO [STAFF PHYSICIAN] - Within 2 Weeks (for autoimmune hepatitis with liver cirrhosis) Disposition Disposition (needs filled in before D/C Order can be placed): Home, Self Care
--- NOTE | 2021-09-19 11:17 | CASEMGMT ---
Pt is active with [facility] and [facility] order placed. Call to Ashlee at [facility] and message left that pt will be discharging today per Dr. Parry. Stuart MORRISON CM
--- NOTE | 2021-09-19 11:21 | DS.PCM_ITS ---
Providers Date of Admission: 09/18/21 Primary Care Physician: Dr. Janay Canchola MD Reason For Visit: HYPOTENSION, LACTIC ACIDOSIS, HYPOKALEMIA Diagnosis Discharge Diagnosis (1) Acidosis, lactic: Status: Acute Code(s): E87.2 - Acidosis (2) Acute hypotension: Status: Acute Code(s): I95.9 - Hypotension, unspecified Medications at Discharge Home Medications magnesium oxide 400 mg PO BID 03/14/17 Xifaxan 550 mg PO BID 11/04/17 Latuda 40 mg PO QHS 03/20/21 pantoprazole 40 mg PO DAILY 03/20/21 sertraline 50 mg PO DAILY 03/20/21 sucralfate [Carafate] 1 g PO ACHS 03/20/21 ursodiol 300 mg capsule 300 mg PO BID 04/25/21 carbamazepine 100 mg PO BID 04/29/21 spironolactone 50 mg PO DAILY 05/08/21 pregabalin 75 mg PO BID 09/18/21 zinc 50 mg PO DAILY 09/18/21 carvedilol 12.5 mg PO BID #180 tab 09/19/21 insulin lispro [Humalog KwikPen Insulin] 10 unit SUBCUT TID #0 ml 09/19/21 levothyroxine 50 mcg PO DAILY #30 tab 09/19/21 Hospital Course Summary of Care Provided Hospital Course: The patient is a 50 y/o F with multiple comorbidities including cirrhosis of liver probably due to autoimmune hepatitis came to ER with generali zed weakness accompanied with decreased oral intake and urine output, hypotension due to hypovolemia. 1. Recent bilateral pneumonia, presumed community: CXR in the ED w/ clinical improvement from prior. Patient is afebrile. Urinary antigens of Legionella and Streptococcus are negative. Respiratory panel negative. COVID-19 PCR negative. Chest x-ray shows mild residual right perihilar infiltrate and left upper lobe although improved from the previous study. 2. Lactic acidosis mainly due to dehydration/hypovolemia: Do not have current objective evidence of infection. UA shows 0 WBC, RBC LE and nitrite negative. No bacteria. IV fluid was given. Cortisol level 21.8. Free T4 normal. TSH 5.12. Procalcitonin 0.1, mildly elevated. Repeat lactic acid 1.5 normal. Levothyroxine was increased to 50 mcg daily. 3. Hypotension with history of hypertension: Patient was well restricted but avoid fluid overload due to history of cirrhosis. Patient has mild ascites. 4. Hypokalemia: Admission K+ 2.6, magnesium level normal. 5. Mild acute renal insufficiency with history of CKD stage IIIa: Creatinine level 1.57 improved to 1.44. Patient has history of elevated creatinine, hig hest 1.76 on 08/20. 6. Failure to thrive, adult: 7. Diabetes mellitus type II with hyperglycemia: On Accu-Chek insulin coverage Humalog sliding scale. A1c pending. 8. Hypothyroidism: Continue home synthroid regimen, TSH 5.12. Free T4 1.08. Increase levothyroxine to 50 mcg daily as patient seems to have symptoms of hypothyroidism including weakness, tiredness and fatigue 9. Anxiety and depression/bipolar disorder/schizoaffective disorder: continue patient home carbamazepine regimen with level request, also continue Latuda. 10. Autoimmune hepatitis with liver cirrhosis: Patient status post TIPS, hepatic profile not marked appearing, will continue Xifaxan,, ursodiol, holding Coreg given presentation as noted above. Coreg dose was decreased to 12.5 mg twice daily for hypotension. Advised to follow-up with GI Dr. Veronique. 11. GERD: We will continue patient on PPI as well as sucralfate. 12. Chronic pancytopenia with history of cirrhosis 13. DVT prophylaxis: SCDs, pharmacological prophylaxis contraindicated. Discharge medication reconciliation done. Discharge follow-up instructions completed. Discharge process discussed with the patient and all questions were answered to patient's satisfaction. Patient was admitted as inpatient but was discharged because of sooner recovery than expected at time of admission. Total time spent, exact 35 minutes on discharge meds reconciliation, examination, coordination of care with nurses and ancillary staff, review of imaging and blood test and discussion with the patient on follow-up instructions Physical Exam Narrative Patient has psychiatric history of bipolar disorder and Latuda carbamazepine and sertraline. General: Alert, Oriented x3, Cooperative HEENT: Atraumatic, PERRLA, EOMI, Normocephalic Oral: No Gingival or Mucosal Lesions/ Ulcerations Neck: Supple, No JVD, Negative Carotid Bruits Lungs: Air entry diminished in bilateral lung bases. No crepitation/rhonchi Cardiovascular: Regular rate, Regular Rhythm, Normal S1, Normal S2, No murmurs Abdomen: Mild ascites bowel Sounds Present, Soft, Non Tender, Non-Distended : No renal angle tenderness. No suprapubic tenderness. Extremities: No edema, Capillary Refill Less than 3 Seconds Skin: No rashes, No breakdown Musculoskeletal: No Tenderness to Palpation of Joints or Extremities Neurological: Cranial nerves II-XII grossly intact, DTR 2+/4 and Symmetrical, Neuro grossly intact Psych/Mental Status: Flat affect. Weight / BMI Weight Weight: 198 lb 10.184 oz Body Mass Index (BMI) 28.2 ABG / Lab / Microbiology Data Result Diagrams: 09/19/21 05:20 09/19/21 05:20 Laboratory: Laboratory Results - last 24 hr 09/18/21 13:53: Cortisol 21.80 09/18/21 13:53: WBC 3.8 L, RBC 3.23 L, Hgb 8.9 L, Hct 26.4 L, MCV 81.7, MCH 27.6, MCHC 33.7, RDW Std Deviation 43.3, RDW Coeff of Valentina 15.0 H, Plt Count 103 L, MPV 10.5, Immature Gran % (Auto) 0.300, Neut % (Auto) 69.7, Lymph % (Auto) 12.1 L, [place] % (Auto) 10.0, Eos % (Auto) 5.8 H, Baso % (Auto) 2.1 H, Absolute Ne uts (auto) 2.7, Absolute Lymphs (auto) 0.46 L, Nucleated RBC % 0, Differential Comment , Diff Path Review May , Platelet Estimate SLT DEC, RBC Morphology N CHROM, Anisocytosis 1+ 09/18/21 13:53: Sodium 134 L, Potassium 2.6 L*, Chloride 101, Carbon Dioxide 26.0, Anion Gap 7, BUN 10, Creatinine 1.57 H, Estim Creat Clear Calc 45.33, Est GFR (MDRD) Af Amer 44 L, Est GFR (MDRD) Non-Af 37 L, BUN/Creatinine Ratio 6.4 L, Glucose 318 H, Calcium 8.2 L, Total Bilirubin 1.20 H, AST 24, ALT 24, Alkaline Phosphatase 209 H, Troponin I High Sens 13, Total Protein 6.6, Albumin 2.4 L, Globulin 4.2, Albumin/Globulin Ratio 0.6 L 09/18/21 13:53: Carbamazepine < 0.5 L 09/18/21 13:53: Magnesium 1.9, TSH 5.12 H 09/18/21 13:53: Procalcitonin 0.10 H 09/18/21 14:30: Urine Color Yellow, Urine Clarity Clear, Urine pH 6.0, Ur Speci fic [place] 1.010, Urine Protein 15 H, Urine Glucose (UA) 1000 H, Urine Ketones Negative, Urine Occult Blood 10 H, Urine Nitrite Negative, Urine Bilirubin Negative, Urine Urobilinogen Normal, Ur Leukocyte Esterase Negative, Urine RBC 0 SEEN, Urine WBC 0 SEEN, Ur Squamous Epith Cells 0 SEEN, Urine Bacteria 0 SEEN, Urine Mucus 0 SEEN 09/18/21 14:35: Lactic Acid 4.0 H* 09/18/21 16:40: Carbamazepine 0.5 L 09/18/21 17:17: COVID-19 (CAROLE) Not Detected 09/18/21 19:35: Sodium 135 L, Potassium 3.8, Chloride 109 H, Carbon Dioxide 22.0, Anion Gap 4 L, BUN 11, Creatinine 1.31 H, Estim Creat Clear Calc 54.32, Est GFR (MDRD) Af Amer 55 L, Est GFR (MDRD) Non-Af 45 L, BUN/Creatinine Ratio 8.4 L, Glucose 172 H, Calcium 7.4 L 09/18/21 19:35: Lactic Acid 1.5 09/18/21 21:53: POC Glucose 258 H 09/19/21 05:20: WBC 2.5 L, RBC 2.81 L, Hgb 7.7 L, Hct 23.4 L, MCV 83.3, MCH 27.4, MCHC 32.9, RDW Std Deviation 45.6 H, RDW Coeff of Valentina 15.3 H, Plt Count 67 L, MPV 12.0, Immature Gran % (Auto) 0.000, Neut % (Auto) 69.0, Lymph % (Auto) 18.5 L, [place] % (Auto) 7.7, Eos % (Auto) 3.2, Baso % (Auto) 1.6 H, Absolute Neuts (auto) 1.7 L, Absolute Lymphs (auto) 0.46 L, Nucleated RBC % 0, Differential Comment SCANNED, Diff Path Review March mitali, Platelet Estimate MOD 09/19/21 05:20: Sodium 134 L, Potassium 3.8, Chloride 107, Carbon Dioxide 20.0 L , Anion Gap 7, BUN 13, Creatinine 1.44 H, Estim Creat Clear Calc 49.42, Est GFR (MDRD) Af Amer 49 L, Est GFR (MDRD) Non-Af 41 L, BUN/Creatinine Ratio 9.0 L, Glucose 372 H, Calcium 7.1 L, Total Bilirubin 0.60, AST 23, ALT 21, Alkaline Phosphatase 141 H, Total Protein 5.3 L, Albumin 1.8 L, Globulin 3.5, Albumin/Globulin Ratio 0.5 L, Free T4 1.08 09/19/21 05:20: Hemoglobin A1c 10.7 H 09/19/21 05:20: Phosphorus 1.6 L 09/19/21 06:20: POC Glucose 378 H Microbiology: Microbiology 09/19/21 04:18 Urine Catheter - Catheter Streptococcus pneumoniae Antigen (M - Final 09/19/21 04:18 Urine Catheter - Hill Legionella Antigen - Final 09/18/21 17:17 Mucosa - Nose Respiratory Panel (PCR) - Final Radiography Diagnostic Testing: Radiology Impression Chest X-Ray 09/18/21 14:16 IMPRESSION: Mild residual infiltrate in the left upper lobe and in the right parahilar region. There has been improvement as compared to prior study. Electronically Signed: Dsah Shni MD at 15:18 EDT , Service support , D/C Instructions Discharge Diet: 8 Cup Fluid Restriction and 2000 mg Sodium Diet Weight Bearing Status: Weight bearing as tolerated Call your doctor if you observe: Fever of 101 or Higher, Coldness, Increased Pain, Numbness or Tingling, Change in Color, Inability to urinate, Inability to have a bowel movement, Using more than 1 pad per hour, Shortness of breath, Dizziness, Fainting spells, Swelling in the ankles, Chest pain, Prolonged hiccupping, Increased palpitations (irregular heartbeat) and Calf discomfort Meaningful Use Info Meaningful Use Diagnoses (Choose all that apply): None applicable Discharge Plan Admission Admit Date/Time: 09/18/21 16:15 Primary Reason for Your Visit: Hepatic encephalopathy, hypotension Attending Provider: Terry Parry Primary Care Provider: Janay Canchola Discharge Orders/Prescriptions Prescriptions: Continued magnesium oxide 400 MG tablet 400 mg PO BID RF: 0 Xifaxan 550 MG tablet 550 mg PO BID RF: 0 sucralfate [Carafate] 1 gram Tablet 1 g PO ACHS RF: 0 pantoprazole 40 mg Tablet,Delayed Release (Dr/Ec) 40 mg PO DAILY RF: 0 sertraline 50 mg Tablet 50 mg PO DAILY RF: 0 Latuda 40 mg tablet 40 mg PO QHS RF: 0 ursodiol 300 mg capsule 300 mg PO BID RF: 0 carbamazepine 100 mg Tablet Extended Release 12 Hr 100 mg PO BID RF: 0 spironolactone 50 mg tablet 50 mg PO DAILY RF: 0 zinc 50 mg Tablet 50 mg PO DAILY RF: 0 pregabalin 75 mg capsule 75 mg PO BID RF: 0 Changed carvedilol 25 mg tablet 12.5 mg PO BID Qty: 180 RF: 3 levothyroxine 25 mcg tablet 50 mcg PO DAILY Qty: 30 RF: 0 insulin lispro [Humalog KwikPen Insulin] 100 unit/mL insulin pen 10 unit SUBCUT TID Qty: 0 RF: 0 Discontinued amlodipine 5 mg tablet 5 mg PO DAILY RF: 0 Referrals / Follow Up: Janay Canchola MD [Primary Care Provider] - Within 2 Weeks (Please call and setup an appointment. ) FriendShay DO [STAFF PHYSICIAN] - 10/11/21 1:30 pm (for autoimmune hepa titis with liver cirrhosis) Disposition Disposition (needs filled in before D/C Order can be placed): Home, Self Care Charges/Coding Visit Charges Inpatient E&M: 87309 Disch Hosp
--- NOTE | 2021-09-19 11:35 | PHA.DC.MR ---
Pharmacy Service has performed discharge medication reconciliation for this patient. The patient's discharge medication list was reviewed for discrepancies and discrepancies were resolved. Home Medications magnesium oxide 400 mg PO BID 03/14/17 Xifaxan 550 mg PO BID 11/04/17 Latuda 40 mg PO QHS 03/20/21 pantoprazole 40 mg PO DAILY 03/20/21 sertraline 50 mg PO DAILY 03/20/21 sucralfate [Carafate] 1 g PO ACHS 03/20/21 ursodiol 300 mg capsule 300 mg PO BID 04/25/21 carbamazepine 100 mg PO BID 04/29/21 spironolactone 50 mg PO DAILY 05/08/21 pregabalin 75 mg PO BID 09/18/21 zinc 50 mg PO DAILY 09/18/21 carvedilol 12.5 mg PO BID #180 tab 09/19/21 insulin lispro [Humalog KwikPen Insulin] 10 unit SUBCUT TID #0 ml 09/19/21 levothyroxine 50 mcg PO DAILY #30 tab 09/19/21
[2021-09-19 13:20] LABS: Bedside Glucose 364 mg/dL (70-110)
[2021-09-19 13:35] LABS: Pathologist Review Reviewed
[2021-09-19 13:35] LABS: Pathologist Review Reviewed
--- NOTE | 2021-09-20 14:16 | CASEMGMT ---
GILLIAN DC F/u Call DC Date: 09/19/21 DC Diagnosis: Lactic Acidosis, Hypotension DC Disposition: Home with [facility] SN Lace/Strata: 28/02 Called patient's listed number, patient answered. Introduced self and role. Patient states that she has fallen twice since DC. Denies LOC and states just scraped her knee. States [facility] SN out today and checked her VS and BP okay. States her has pulled out her walker for her to use. States dizziness and nausea before falls. Has an appointment with physician volleyball assistant coach in mid September. Advised to call PCP today and notify of hospital DC and falls and needing sooner f/u. Patient states was only going a couple steps to bathroom- taking lactulose and makes it difficult using walker when in a hurry. Discussed rollator and depends to assist with remaining safe and f/u with PCP as well as returning to hospital if any worsening in condition. Patient acknowledges and states understanding. Denies any other issues, concerns or questions with [facility], medications or f/u. GILLIAN Rivera
== END 2021-09-19 12:58 | disposition home health service (06) | DRG 641 ==
LOC: ED 16:11 → PCU 16:45
PROVIDERS: Admitting Provider Family Medicine; Emergency Provider Emergency Medicine; PCP Internal Medicine; Visit Provider Internal Medicine
DX: E86.1 Hypovolemia (principal); D61.818 Other pancytopenia; R18.8 Other ascites; I95.89 Other hypotension; I44.7 Left bundle-branch block, unspecified; K75.4 Autoimmune hepatitis; F31.9 Bipolar disorder, unspecified; E11.42 Type 2 diabetes mellitus with diabetic polyneuropathy; E06.3 Autoimmune thyroiditis; I12.9 Hypertensive chronic kidney disease with stage 1 through stage 4 chronic kidney disease, or unspecified chronic kidney disease; N18.31 Chronic kidney disease, stage 3a; E87.6 Hypokalemia; E86.0 Dehydration; E11.22 Type 2 diabetes mellitus with diabetic chronic kidney disease; R62.7 Adult failure to thrive; E11.65 Type 2 diabetes mellitus with hyperglycemia; F25.9 Schizoaffective disorder, unspecified; F41.9 Anxiety disorder, unspecified; K21.9 Gastro-esophageal reflux disease without esophagitis; K74.60 Unspecified cirrhosis of liver; E78.5 Hyperlipidemia, unspecified; Z91.14 Patient's other noncompliance with medication regimen; Z79.899 Other long term (current) drug therapy; Z79.4 Long term (current) use of insulin; Z79.890 Hormone replacement therapy; Z68.28 Body mass index [BMI] 28.0-28.9, adult; Z87.01 Personal history of pneumonia (recurrent)
CPT/HCPCS: 36415; 51702; 71045; 80048; 80053; 80156; 81001; 82533; 82962; 83036; 83605; 83735; 84100; 84145; 84439; 84443; 84484; 85025; 87449; 87633; 87635; 93005; 99251; 99285; J7030; U0005; A4216; G0463; U0003

== ENCOUNTER 2021-09-23 16:24 | Emergency (ER) | payer MEDICARE, MEDICAID, SELFPAY ==
[2021-09-23 16:24] VITALS: BP 172/82; PULSE 72; RESP 16; TEMP 36.6; O2SAT 99; BMI 34.8
[2021-09-23 16:37] VITALS: PULSE 73; RESP 19; O2SAT 98
--- NOTE | 2021-09-23 16:42 | EDS_ITS ---
HPI History of Present Illness Chief Complaint: Edema Detail of Chief Complaint: Swelling to face Informant: patient Narrative Narrative: Patient presents to the emergency department with swelling around her eyes that she noted when she woke up today. Patient denies any head trauma. She denies lip or tongue swelling or difficulty breathing. Denies taking any new medications. Patient has history of hepatitis and does take Xifaxan. She denies fever or recent illness. Patient states that she has had several falls this week but is generally Harriett landed on her lower extremities and denies facial trauma. She has been intermittently dizzy. She is often nauseated. Patient denies any chest pain or shortness of breath. [facility] Medical History Anemia Autoimmune hepatitis Bacteremia due to methicillin resistant Staphylococcus epidermidis Bipolar disorder Chronic pain Cirrhosis of liver Depression Diabetes mellitus Diabetes mellitus, type 2 Encephalopathy acute Reilly's thyroiditis Hepatic encephalopathy Hepatitis Hypertension Kidney disease MRSA bacteremia Pancreatitis Pancytopenia Peripheral neuropathy Schizoaffective disorder Severe sepsis Splenomegaly Home Medications magnesium oxide 400 mg PO BID 03/14/17 [History Last Taken 2 Weeks Ago ~08/18 07/08] Xifaxan 550 mg PO BID 11/04/17 [History Last Taken 2 Weeks Ago ~09/04/21] Latuda 40 mg PO QHS 03/20/21 [History Last Taken 2 Weeks Ago ~09/04/21] pantoprazole 40 mg PO DAILY 03/20/21 [History Last Taken 2 Weeks Ago ~09/04/21] sertraline 50 mg PO DAILY 03/20/21 [History Last Taken 2 Weeks Ago ~09/04/21] sucralfate [Carafate] 1 g PO ACHS 03/20/21 [History Last Taken 2 Weeks Ago ~09/04/21] ursodiol 300 mg capsule 300 mg PO BID 04/25/21 [History Last Taken 2 Weeks Ago ~09/04/21] carbamazepine 100 mg PO BID 04/29/21 [History Last Taken 2 Weeks Ago ~09/04/21] spironolactone 50 mg PO DAILY 05/08/21 [History Last Taken 2 Weeks Ago ~09/04/21] pregabalin 75 mg PO BID 09/18/21 [History Last Taken 2 Weeks Ago ~09/04/21] zinc 50 mg PO DAILY 09/18/21 [History Last Taken 2 Weeks Ago ~09/04/21] insulin lispro [Humalog KwikPen Insulin] 10 unit SUBCUT TID #0 ml 09/19/21 [Rx Last Taken Unknown] levothyroxine 50 mcg PO DAILY #30 tab 09/19/21 [Rx Last Taken Unknown] carvedilol 12.5 mg tablet 12.5 mg PO BID #180 tab 09/21/21 [Rx Last Taken Unknown] Allergy/AdvReac Type Severity Reaction Status Date / Time adhesive Allergy Rash Verified 09/23/21 16:26 escitalopram oxalate Allergy blindness Verified 09/23/21 16:26 [From Lexapro] gabapentin [From Neurontin] Allergy Alan Verified 09/23/21 16:26 Jez's Syndrome lamotrigine [From Lamictal] Allergy Blindness Verified 09/23/21 16:26 Preservatives Allergy passed Uncoded 09/23/21 16:26 out, lungs deflated sour cream Allergy Anaphylaxis Uncoded 09/23/21 16:26 Family History Father CVA (cerebral vascular accident) Myocardial infarction Heart disease CAD (coronary artery disease) Grandmother CHF (congestive heart failure) Sister Hypertension Mother Heart disease Surgical History H/O: hysterectomy History of abdominal paracentesis (10/2019) History of appendectomy History of cholecystectomy S/P TIPS (transjugular intrahepatic portosystemic shunt) Social History (Updated 09/18/21 @ 18:10 by Lelo Marie) household members: significant other housing: house Smoking Status: Never smoker alcohol intake: never details: Unknown substance use type: does not use ROS ROS ED Constitutional Constitutional ED: Reports systems reviewed and no addt'l complaints, except as documented; Denies body ache(s), change in weight or chills Eyes Eyes: Denies acute decrease in peripheral vision, change in vision, double vision or loss of vision ENT ENT ED: Reports none and other Details: Facial swelling ; Denies ear pain, lip swelling, loss taste/smell, neck pain, otalgia or sore throat Cardiovascular Cardiovascular: Reports none; Denies abdominal pain, chest pain with activity, leg edema, lightheadedness, palpitations, rapid heart rate or syncope Respiratory/Chest Respiratory/Chest: Reports none; Denies change in mental status, dry cough, dyspnea, hemoptysis, shortness of breath at rest or shortness of breath with exertion Gastrointestinal Gastrointestinal: Reports none; Denies abdominal pain, change in stool character, diarrhea, hematemesis, hematochezia, melena, rectal bleeding or vomiting Genitourinary Genitourinary ED: Reports none; Denies abdominal discomfort, anuria, dysuria, genital pain or polyuria Musculoskeletal Musculoskeletal: Reports none; Denies arthralgias, back pain, difficulty walking, extremity pain, muscle weakness or myalgias Integumentary Reports none; Denies abscess or rash Neurologic Neurologic: Reports none; Denies abnormal gait, confusion, focal weakness, frequent falls, headache(s), loss of vision, numbness, paresthesias, radicular pain, vertigo or weakness Psychiatric Psychiatric: Reports systems reviewed and no addt'l complaints, except as documented and none; Denies behavioral changes, confusion, difficulty concentrating, hallucinations, suicidal ideation, tactile hallucinations or visual hallucinations Endocrine Endocrinology: Denies none, cold intolerance, excessive sweating, fatigue or heat intolerance Hematologic/Lymphatic Hematologic/Lymphatic: Reports none; Denies anemia, easy bleeding or easy bruising Allergic/Immunologic Allergic/Immunologic ED: Denies as per HPI, none, lip swelling, mouth swelling, throat swelling, tongue swelling or hives EXAM Physical Exam Const Vital Signs: 09/23/21 16:24 09/23/21 16:37 09/23/21 18:43 Temperature 97.9 F Temperature Source Temporal Pulse Rate 72 73 73 Respiratory Rate 16 19 H 20 H Respiratory Effort Normal Non-Labored Respiratory Pattern Normal Blood Pressure 172/82 H 177/85 H Blood Pressure Mean 112 115 Pulse Ox 99 98 97 Oxygen Delivery Method Room Air Room Air Room Air Positive well nourished and well developed General Appearance ED: well developed and NAD HEENT Reports TM's clear and moist mucous membranes HEENT Narrative: Patient has edema of the upper and lower lids bilaterally slightly more pronounced on the left than the right. There is no erythema or cellulitic changes noted. Normal extraocular muscle movements bilaterally. No ecchymosis or bruising or evidence of trauma to her face or orbits. No rashes otherwise noted. normocephalic and atraumatic; Negative for trauma or tenderness Tympanic Membrane ED: Yes TM's clear Eyes PERRL and EOMs intact bilaterally General Eye ED: Negative for pale conjunctiva or scleral icterus Neck no lymphadenopathy, supple and no JVD General: Negative for tenderness Chest Wall inspection of chest normal and palpation of chest normal Chest: Negative for tenderness Resp normal respiratory effort and clear to auscultation bilaterally Effort and Inspection: Negative for respiratory distress or pain with movement Auscultation: Negative for rhonchi, wheezes or diminished lung sounds Cardio regular rate, regular rhythm, S1 normal heart sound, S2 normal heart sound and no murmurs Peripheral Pulses: pulses 2+ throughout GI normal to inspection, nondistended, normoactive bowel sounds, soft to palpation, non-tender, non-distended and no masses Back/Spine no CVA tenderness and no thoracic nor lumbar tenderness Extremity normal to inspection General Extremety ED: Negative for edema General Extremity: Negative for edema Neuro oriented x3, CN's II-XII intact bilaterally, no sensory deficits noted and gait normal Sensorium / Orientation: awake, alert, oriented to person, oriented to place and oriented to time Motor Exam: strength 5/5 throughout and strength abnormal Psych mental status grossly normal Skin no rashes or lesions noted and no wounds MDM MDM MDM Narrative Medical decision making narrative: Patient received 25 mg of Benadryl IV and Zofran 4 mg IV. Her COVID-19 test was negative and she is not having signs or symptoms of Covid. On repeat evaluation I do not appreciate any significant edema to her face at this time. I feel patient can be safely discharged home. She is to follow-up with her primary care physician within next 3 to 5 days. Patient to return the ER if lip or tongue swelling or difficulty breathing or condition should worsen anyway. Lab Data Attestation: I reviewed the patient's lab results. Labs: Laboratory Results - last 24 hr 09/23/21 09/23/21 09/23/21 16:45 16:45 17:13 WBC 3.3 L RBC 3.27 L Hgb 9.0 L Hct 27.1 L MCV 82.9 MCH 27.5 MCHC 33.2 RDW Std Deviation 45.6 H RDW Coeff of Valentina 15.1 H Plt Count 86 L MPV 11.4 Immature Gran % (Auto) 0.300 Neut % (Auto) 68.5 Lymph % (Auto) 14.4 L [place] % (Auto) 9.5 Eos % (Auto) 5.2 H Baso % (Auto) 2.1 H Absolute Neuts (auto) 2.2 Absolute Lymphs (auto) 0.47 L Nucleated RBC % 0 Differential Comment SCANNED Sodium 139 Potassium 3.8 Chloride 112 H Carbon Dioxide 24.0 Anion Gap 3 L BUN 19 H Creatinine 1.07 H Estim Creat Clear Calc 66.51 Est GFR (MDRD) Af Amer 69 Est GFR (MDRD) Non-Af 57 L BUN/Creatinine Ratio 17.8 Glucose 215 H Calcium 8.2 L Total Bilirubin 0.80 AST 27 ALT 24 Alkaline Phosphatase 159 H Ammonia 119.0 H Total Protein 6.2 L Albumin 2.2 L Globulin 4.0 Albumin/Globulin Ratio 0.6 L Radiography Chest X-Ray - ED: 1 View (1 view chest x-ray obtained interpreted by myself as increased markings bilaterally. Radiology felt that patient had multifocal pulmonary opacities possibly viral infection such as Covid. Possibly superimposed pulmonary edema. Patient was noted to have a TIPS shunt.) Diagnostic Testing: Clinical Impression(s) from Imaging Studies Chest X-Ray 09/23/21 17:17 IMPRESSION: Multifocal pulmonary opacities, possibly viral infection, such as Covid versus viral pneumonia and superimposed mild pulmonary edema. TIPS shunt. Electronically Signed: Kenrick Perdomo MD at 17:30 EDT Tel , Service support , Discharge Plan Triage Chief Complaint: Edema Other Complaint: Dizziness Fall ED Provider: Jessica Gonzales Dx/Rx/DC Orders Clinical Impression: Facial edema Instructions: ED General Allergic Reactions Prescriptions: No Action magnesium oxide 400 MG tablet 400 mg PO BID RF: 0 Xifaxan 550 MG tablet 550 mg PO BID RF: 0 sucralfate [Carafate] 1 gram Tablet 1 g PO ACHS RF: 0 pantoprazole 40 mg Tablet,Delayed Release (Dr/Ec) 40 mg PO DAILY RF: 0 sertraline 50 mg Tablet 50 mg PO DAILY RF: 0 Latuda 40 mg tablet 40 mg PO QHS RF: 0 ursodiol 300 mg capsule 300 mg PO BID RF: 0 carbamazepine 100 mg Tablet Extended Release 12 Hr 100 mg PO BID RF: 0 spironolactone 50 mg tablet 50 mg PO DAILY RF: 0 zinc 50 mg Tablet 50 mg PO DAILY RF: 0 pregabalin 75 mg capsule 75 mg PO BID RF: 0 levothyroxine 25 mcg tablet 50 mcg PO DAILY Qty: 30 RF: 0 insulin lispro [Humalog KwikPen Insulin] 100 unit/mL insulin pen 10 unit SUBCUT TID Qty: 0 RF: 0 carvedilol 12.5 mg tablet 12.5 mg PO BID Qty: 180 RF: 3 Primary Care Provider: Janay Canchola Referrals: Janay Canchola MD [Primary Care Provider] - 3-5 Days Disposition Disposition: Home, Self Care
[2021-09-23] MEDS: DiphenhydrAMINE 50 MG/ML Syringe 25 MG IV (16:52)
[2021-09-23] MEDS: Ondansetron 4 MG/2 ML Vial IV (17:00)
[2021-09-23 17:01] LABS: Absolute Lymphocyte Count 0.47 X10^3/uL (0.83-4.51); Absolute Neutrophil Count 2.2 X10^3/uL (2.0-7.7); Basophil# 0.07 X10^3/uL; Basophil% 2.1 % (0-1); Eosinophil# 0.17 X10^3/uL; Eosinophils% 5.2 % (0-5); Hematocrit 27.1 % (37-47); Lymphocyte # 0.47 X10^3/ul (0.83-4.51); Lymphocyte % 14.4 % (19-41); Mean Corp Hgb Conc 33.2 g/dL (32-36); Mean Corpuscular Hgb 27.5 pg (27.0-32.0); Mean Corpuscular Volume 82.9 fL (81-99); Mean Platelet Vol. 11.4 fl (6.2-12.0); Monocyte# 0.31 X10^3/uL; Monocyte% 9.5 % (0-10); NRBC Flagged by Analyzer 0 % (0-5); Neutrophil # 2.23 X10^3/uL (2.7-7.7); Neutrophil % 68.5 % (47-70); POSITIVE COUNT YES; POSITIVE DIFFERENTIAL YES; Platelet Count 86 K/mm3 (150-450); RBC Distribution Width CV 15.1 % (11.6-14.6); RBC Distribution Width SD 45.6 fl (35.1-43.9); Red Blood Count 3.27 M/mm3 (4.2-5.4); White Blood Count 3.3 K/mm3 (4.4-11.0)
[2021-09-23 17:12] LABS: ALB/GLOB Ratio 0.6 RATIO (0.9-2.4); AST(SGOT) 27 U/L (15-37); Alanine Aminotransfer ALT/SGPT 24 U/L (13-56); Albumin, Serum 2.2 g/dL (3.2-5.0); Alkaline Phosphatase 159 U/L (45-117); Anion Gap 3 (5-15); BUN 19 mg/dL (7-18); BUN/Creat Ratio 17.8 RATIO (10-20); Calcium,Total 8.2 mg/dL (8.5-10.1); Chloride 112 mmol/L (98-107); Creatinine, Serum 1.07 mg/dL (0.55-1.02); EST Glomerular Filtration Rate 57 mL/min (>60); Est Glom Filt Rate - Afr Amer 69 mL/min (>60); Estimated Creatinine Clearance 66.51 ml/min; Glucose 215 mg/dL (74-106); Potassium 3.8 mmol/L (3.5-5.1); Protein, Total 6.2 g/dL (6.4-8.2); Sodium Level 139 mmol/L (136-145)
[2021-09-23 17:15] LABS: Differential Indicated SCAN CRITERIA MET
--- NOTE | 2021-09-23 17:17 | RAD_ITS ---
STUDY: X-RAY CHEST REASON FOR EXAM: Female, 50 years old. htn COMPLAINS OF EDEMA TO FACE, FOUR FALLS RECENTLY DUE TO INTERMITTENT DIZZINESS. HX OF AUTOIMMUNE HEPATITIS TECHNIQUE: Frontal portable view of the chest COMPARISON: 01 June 2021 FINDINGS: There are multifocal heterogeneous ill-defined opacities bilaterally. Pulmonary volumes are low. There is no pneumothorax, cardiac megaly or pleural effusions. There is a right TIPS shunt in place. RAD/Chest 1 View (Portable) IMPRESSION: Multifocal pulmonary opacities, possibly viral infection, such as Covid versus viral pneumonia and superimposed mild pulmonary edema. TIPS shunt. Electronically Signed: Kenrick Perdomo MD at 17:30 EDT Tel , Service support ,
[2021-09-23 17:44] LABS: Differential Comment SCANNED
[2021-09-23 18:43] VITALS: BP 177/85; PULSE 73; RESP 20; O2SAT 97
[2021-09-23 18:58] VITALS: BP 177/85; PULSE 82; RESP 16; O2SAT 97
[2021-09-26 14:08] LABS: Pathologist Review Reviewed
== END 2021-09-23 18:59 | disposition home or self-care (01) ==
PROVIDERS: Emergency Provider Emergency Medicine; PCP Internal Medicine
DX: R60.0 Localized edema (principal); R42 Dizziness and giddiness; I10 Essential (primary) hypertension; F31.9 Bipolar disorder, unspecified; F25.9 Schizoaffective disorder, unspecified; E11.40 Type 2 diabetes mellitus with diabetic neuropathy, unspecified; Z79.899 Other long term (current) drug therapy; Z79.4 Long term (current) use of insulin
CPT/HCPCS: 71045; 80053; 82140; 85025; 87426; 96374; 96375; 99283; A4216; J2405

== ENCOUNTER 2022-02-13 12:01 | Outpatient (CLI) | payer MEDICARE, MEDICAID, SELFPAY ==
--- NOTE | 2022-02-13 12:15 | BRBX_PTH ---
PATIENT: ANA GARCÍA LOC: [facility] U#:[id number] AGE/SX: 51/F ROOM: RE02/13/[address]: Dr. Keya Vitale MD : 1970 BED: DIS: 02/13/2022 SPEC #: [id number] RECD: 02/13/22 12:55 STATUS: VENTURA RERashid #: [id number] JOSE J: 02/13/22 12:[address]: Keya Vitale DEPT: SURGICAL PATHOLOGY RECD BY: Mike Hurtado ENTERED: 02/13/22 13:33 SP TYPE: BREAST BX OT DR: Dr. Janay Canchola MD Tissues: Left breast, NOS Procedures: Surgery Specimen Level IV HEADER OPERATION: Left breast stereotactic biopsy PRE-OP DIAGNOSIS: Grouped pleomorphic calcifications in left breast superior medial quadrant middle depth TISSUE SUBMITTED: Left breast core tissue ISCHEMIC TIME: 1 minute FIXATION TIME: 7.5 hours MICROSCOPIC DIAGNOSIS Left breast, superior medial, stereotactic core biopsy: Nonproliferative fibrocystic change with associated microcalcifications. Focal intraductal hyperplasia with mild atypia. AM:logan 02/14/2022 COMMENT Case has been reviewed in consultation with Dr. Jesus who concurs with the above diagnosis. IDC:SJ MICROSCOPIC DESCRIPTION Slides are reviewed. GROSS DESCRIPTION Received in fixative is one container labeled with the patient's name and designated left breast. The specimen consists of multiple elongated fragments of arvizu-yellow fibroadipose tissue that in aggregate measure 4 x 2 x 0.3 cm. The entire specimen is submitted in two cassettes. / NATALIIA:logan 02/13/2022 TC:5 CPT: 47711
--- NOTE | 2022-02-13 14:47 | PCM.OPRPT ---
Report of Operation Date of Procedure: 02/13/22 Pre-Operative Diagnosis: abnormal calcifications on left breast mammograms Post-Operative Diagnosis: same Surgery/Procedure Performed:: left stereotactic breast biopsy Surgeon: Keya Vitale Type of Anesthesia: Local Specimen's removed: left breast tissue Estimated Blood Loss (mL): < 5 ml Description of Procedure: After informed consent was given, the patient was brought into the Breast Biopsy suite. Appropriate time out protocol was followed. The patient was placed in the prone position on the stereotactic biopsy table. The patient?s left breast was then placed in the opening at the head of the biopsy table. A engineering program manager compression mammogram was then obtained in the lateral view. The suspicious radiological lesion was thus identified. Stereo pictures of the lesion were then taken for XYZ coordinates. The Mammotome biopsy stylus was then positioned where it would be entering into the patient?s breast. The skin at this site was then cleansed with a surgical skin preparation. The skin and subcutaneous tissues at this site were then infiltrated with 1% xylocaine. A small skin incision was made with an 11 blade scalpel. The biopsy stylus was then positioned into the patient?s breast at the proper coordinates of depth. Using the Mammotome vacuum-assist device, several core samples of breast tissue were obtained. A specimen mammogram was the obtained. It did not reveal the calcifications. Therefore a new set of stereo pictures of the lesion were then taken for new XYZ coordinates. The Mammotome biopsy stylus was then positioned where it would be entering into the patient?s breast. The previous skin incision was used. The biopsy stylus was then positioned into the patient?s breast at the proper coordinates of depth. Using the Mammotome vacuum-assist device, several core samples of breast tissue were obtained. A specimen mammogram was the obtained. It again did not reveal the calcifications in the specimen. Once again, a new set of stereo pictures of the lesion were then taken for XYZ coordinates. The Mammotome biopsy stylus was then positioned where it would be entering into the patient?s breast. The skin at this site was then cleansed with a surgical skin preparation. The skin and subcutaneous tissues at this site were then infiltrated with 1% xylocaine. Another small skin incision was made with an 11 blade scalpel. The biopsy stylus was then positioned into the patient?s breast at the proper coordinates of depth. Using the Mammotome vacuum-assist device, several core samples of breast tissue were obtained. A specimen mammogram was the obtained. It revealed that the abnormal calcifications were within the specimen. I reviewed this personally and concluded that the tissue sampling was adequate. A hemostatic marker clip was then placed into the biopsy cavity and a engineering program manager film revealed that it was properly deployed. The patient was then placed in the supine position and pressure was applied to the breast until no active bleeding was noted. A nylon suture was placed at both incisional locations to reapproximate the skin. A sterile dressing was then applied. A unilateral mammogram in the CC and MLO view were then taken which revealed that the marker clip was in the same area as the previous suspicious lesion. The patient tolerated the procedure well and was discharged from the Breast Biopsy suite in good condition. Complications none noted
== END 2022-02-13 23:59 | disposition home or self-care (01) ==
LOC: BIRAD 12:02
PROVIDERS: PCP Internal Medicine; Visit Provider Surgery
DX: N60.92 Unspecified benign mammary dysplasia of left breast (principal); E11.9 Type 2 diabetes mellitus without complications; Z79.4 Long term (current) use of insulin; R92.1 Mammographic calcification found on diagnostic imaging of breast; E78.5 Hyperlipidemia, unspecified; I10 Essential (primary) hypertension; E03.9 Hypothyroidism, unspecified; Z79.899 Other long term (current) drug therapy
CPT/HCPCS: 19081; 88305; J7050

== ENCOUNTER 2022-03-23 11:56 | Observation (INO) | payer MEDICARE, MEDICAID, SELFPAY ==
[2022-03-23] VITALS (9 sets, daily range): BP systolic 145–177; BP diastolic 59–76; PULSE 60–68; RESP 14–16; TEMP 36.4–36.7; O2SAT 95–100; BMI 31.2; BMI 30.4
--- NOTE | 2022-03-23 12:42 | EKG12_ITS ---
Test Reason : WEAKNESS Blood Pressure : / mmHG Vent. Rate : 064 BPM Atrial Rate : 064 BPM P-R Int : 182 ms QRS Dur : 112 ms QT Int : 444 ms P-R-T Axes : 030 -43 081 degrees QTc Int : 458 ms Normal sinus rhythm Left axis deviation Abnormal ECG Confirmed by DEDE ZAMBRANO, ROSA ([id number]), newspaper editor NORA MENDES ([id number]) on 03/26/2022 1:54:44 PM Referred By: ROMAIN Confirmed By:ROSA AGUAYO MD
--- NOTE | 2022-03-23 12:51 | EX.ED.DYSGE1 ---
HPI History of Present Illness Chief Complaint: Weakness Narrative Narrative: 50-year-old female with history of autoimmune liver disease recently hospitalized at [facility] for generalized weakness, nausea, vomiting, hepatic encephalopathy due to hyperammonemia because she is unable to hold down her meds.. She states she was there for 10 days. They recommended care home for her however she refused and states she wanted to go home. Patient states that she went home and was weak and fell on the floor and laid on the floor all night. She is unable to get her self around. She states that her nurse told her to come to the emergency room. She has home health care ordered however it has not set up for her at home. She denies injury. She does not have any specific complaints. She is not confused. [facility] Medical History Acute on chronic renal insufficiency Anemia Autoimmune hepatitis Bacteremia due to methicillin resistant Staphylococcus epidermidis Bipolar disorder Chronic pain Cirrhosis of liver Depression Diabetes mellitus Diabetes mellitus, type 2 Encephalopathy acute Reilly's thyroiditis Hepatic encephalopathy Hepatitis History of hypothyroidism Hypertension Kidney disease MRSA bacteremia Pancreatitis Pancytopenia Pancytopenia Peripheral neuropathy Schizoaffective disorder Severe sepsis Splenomegaly Home Medications magnesium oxide 400 mg PO BID 03/14/17 [History Last Taken 2 Weeks Ago ~09/04/21] Xifaxan 550 mg PO BID 11/04/17 [History Last Taken 2 Weeks Ago ~09/04/21] Latuda 40 mg PO QHS 03/20/21 [History Last Taken 2 Weeks Ago ~09/04/21] pantoprazole 40 mg PO DAILY 03/20/21 [History Last Taken 2 Weeks Ago ~09/04/21] sertraline 50 mg PO DAILY 03/20/21 [History Last Taken 2 Weeks Ago ~09/04/21] sucralfate [Carafate] 1 g PO ACHS 03/20/21 [History Last Taken 2 Weeks Ago ~09/04/21] ursodiol 300 mg capsule 300 mg PO BID 04/25/21 [History Last Taken 2 Weeks Ago ~09/04/21] carbamazepine 100 mg PO BID 04/29/21 [History Last Taken 2 Weeks Ago ~09/04/21] pregabalin 75 mg PO BID 09/18/21 [History Last Taken 2 Weeks Ago ~09/04/21] zinc 50 mg PO DAILY 09/18/21 [History Last Taken 2 Weeks Ago ~09/04/21] insulin lispro [Humalog KwikPen Insulin] 10 unit SUBCUT TID #0 ml 09/19/21 [Rx Last Taken Unknown] amlodipine 10 mg tablet 10 mg PO DAILY #30 tab 10/26/21 [Rx Last Taken Unknown] carvedilol 12.5 mg tablet 25 mg PO BID tab 10/26/21 [History Last Taken Unknown] insulin degludec 100 unit/mL (3 mL) subcutaneous pen 10 unit SUBCUT DAILY 10/26/21 [History Last Taken Unknown] levothyroxine 25 mcg tablet 25 mcg PO DAILY tab 10/26/21 [History Last Taken Unknown] Allergy/AdvReac Type Severity Reaction Status Date / Time adhesive Allergy Rash Verified 03/23/22 12:03 escitalopram oxalate Allergy blindness Verified 03/23/22 12:03 [From Lexapro] gabapentin [From Neurontin] Allergy Alan Verified 03/23/22 12:03 Jez's Syndrome lamotrigine [From Lamictal] Allergy Blindness Verified 03/23/22 12:03 Preservatives Allergy passed Uncoded 03/23/22 12:03 out, lungs deflated sour cream Allergy Anaphylaxis Uncoded 03/23/22 12:03 Family History Father CVA (cerebral vascular accident) Myocardial infarction Heart disease CAD (coronary artery disease) Grandmother CHF (congestive heart failure) Sister Hypertension Mother Heart disease Surgical History H/O: hysterectomy History of abdominal paracentesis (10/2019) History of appendectomy History of cholecystectomy S/P TIPS (transjugular intrahepatic portosystemic shunt) Social History household members: significant other housing: house Smoking Status: Never smoker alcohol intake: never details: Unknown substance use type: does not use ROS ROS ED ROS Narrative Generalized weakness Constitutional Constitutional ED: Denies chills or sweats Eyes Eyes: Denies blurry vision ENT ENT ED: Denies ear pain or rhinorrhea Cardiovascular Cardiovascular: Denies chest pain or palpitations Respiratory/Chest Respiratory/Chest: Denies cough or dyspnea Gastrointestinal Gastrointestinal: Denies abdominal pain, nausea or vomiting Genitourinary Genitourinary ED: Denies dysuria or hematuria Musculoskeletal Musculoskeletal: Denies arthralgias or myalgias Integumentary Denies Abrasions or rash Neurologic Neurologic: Denies headache(s) or paresthesias Psychiatric Psychiatric: Denies anxiety or depression EXAM Physical Exam Const Vital Signs: 03/23/22 11:57 03/23/22 12:01 03/23/22 15:06 Temperature 97.8 F 97.8 F 98.1 F Temperature Source Oral Oral Temporal Pulse Rate 65 65 63 Respiratory Rate 16 16 14 Respiratory Effort Normal Non-Labored Respiratory Pattern Normal Blood Pressure 177/70 H 177/70 H 177/75 H Blood Pressure Mean 105 105 109 Pulse Ox 95 95 100 Oxygen Delivery Method Room Air Room Air Room Air 03/23/22 15:52 Temperature 97.8 F Temperature Source Temporal Pulse Rate 63 Respiratory Rate 16 Respiratory Effort Respiratory Pattern Blood Pressure 175/76 H Blood Pressure Mean 109 Pulse Ox 100 Oxygen Delivery Method Room Air Positive obese General Appearance ED: NAD; Negative for pallor Nutritional Appearance: obese HEENT Reports moist mucous membranes Negative for trauma Eyes PERRL and EOMs intact bilaterally General Eye ED: Negative for pale conjunctiva or scleral icterus Neck no lymphadenopathy and supple Resp normal respiratory effort and clear to auscultation bilaterally Cardio regular rate and regular rhythm GI normal to inspection, nondistended, normoactive bowel sounds Neuro oriented x3, CN's II-XII intact bilaterally and no sensory deficits noted Sensorium / Orientation: alert Motor Exam: strength 5/5 throughout Psych mental status grossly normal Skin no rashes or lesions noted General Skin Exam: Negative for jaundice or pallor MDM MDM MDM Narrative Medical decision making narrative: 51-year-old female presenting with generalized weakness after recent hospitalization for hepatic encephalopathy secondary to autoimmune hepatitis. Patient has no specific complaints other than generalized weakness unable to care for self at home. She states she laid on the floor for extended period of time. EKG is obtained on arrival and on my interpretation shows normal sinus rhythm with a ventricular to 64 bpm without sign of ischemic change or dysrhythmia. CBC shows a leukopenia of 2.9 which is her baseline. Hemoglobin stable at 7.9. Platelets 63 and near baseline. Creatinine slightly elevated 1. 8 6 however I am not sure what her recent lab work showed in the hospital. Patient's last blood work here was from September 2021. Patient was given some IV fluids. Patient's AST 39, direct bilirubin 0.38, alkaline phosphatase 163. Total CPK is 200 which is not significantly elevated. High-sensitivity troponin is 24. Urinalysis showed 500 leukocyte esterase with 10-25 white blood cells and 2+ bacteria. Ammonia elevated at 90 however not sure of her most recent ammonia level. This is lower than previous here at [facility]. Patient is alert and awake and oriented. Chest x-ray showed possible right lower lobe infiltrate on my interpretation and radiologist agree. Patient does not have any respiratory complaints. Her vital signs are stable. She not hypoxic. She has no urinary complaints either. I sent the urine for culture. Patient was discussed with the hospitalist for admission due to failure to thrive and need for placement in care home for the short-term. I do not have a more recent chest x-ray to compare this x-ray to but without respiratory complaints hold antibiotics at this time. Hospitalist did agree. Impression: 1. Failure to thrive 2. Mechanical fall 3. Chronic anemia 4. Acute kidney injury 5. Hyperammonemia Lab Data Attestation: I reviewed the patient's lab results. Labs: Laboratory Results - last 24 hr 03/23/22 03/23/22 03/23/22 13:30 13:30 13:30 WBC 2.9 L RBC 2.54 L Hgb 7.9 L Hct 23.1 L MCV 90.9 MCH 31.1 MCHC 34.2 RDW Std Deviation 43.6 RDW Coeff of Valentina 13.7 Plt Count 63 L MPV 11.3 Immature Gran % (Auto) 0.700 Neut % (Auto) 65.9 Lymph % (Auto) 16.2 L [place] % (Auto) 11.7 H Eos % (Auto) 4.1 Baso % (Auto) 1.4 H Absolute Neuts (auto) 1.9 L Absolute Lymphs (auto) 0.47 L Nucleated RBC % 0 Differential Comment Diff Path Review May foll Platelet Estimate MOD DEC RBC Morphology NORM C+C PT 17.2 H INR 1.4 Sodium 141 Potassium 4.1 Chloride 109 H Carbon Dioxide 26.0 Anion Gap 6 BUN 37 H Creatinine 1.86 H Estim Creat Clear Calc 36.56 Est GFR (MDRD) Af Amer 36 L Est GFR (MDRD) Non-Af 30 L BUN/Creatinine Ratio 19.9 Glucose 165 H Calcium 8.3 L Total Bilirubin 1.00 Direct Bilirubin 0.38 H AST 39 H ALT 27 Alkaline Phosphatase 163 H Ammonia Total Creatine Kinase 200 H Troponin I High Sens 24 Total Protein 6.8 Albumin 3.4 Globulin 3.4 Urine Color Urine Clarity Urine pH Ur Specific [place] Urine Protein Urine Glucose (UA) Urine Ketones Urine Occult Blood Urine Nitrite Urine Bilirubin Urine Urobilinogen Ur Leukocyte Esterase Urine RBC Urine WBC Ur Squamous Epith Cells Urine Bacteria Urine Mucus 03/23/22 03/23/22 13:30 13:35 WBC RBC Hgb Hct MCV MCH MCHC RDW Std Deviation RDW Coeff of Valentina Plt Count MPV Immature Gran % (Auto) Neut % (Auto) Lymph % (Auto) [place] % (Auto) Eos % (Auto) Baso % (Auto) Absolute Neuts (auto) Absolute Lymphs (auto) Nucleated RBC % Differential Comment Diff Path Review Platelet Estimate RBC Morphology PT INR Sodium Potassium Chloride Carbon Dioxide Anion Gap BUN Creatinine Estim Creat Clear Calc Est GFR (MDRD) Af Amer Est GFR (MDRD) Non-Af BUN/Creatinine Ratio Glucose Calcium Total Bilirubin Direct Bilirubin AST ALT Alkaline Phosphatase Ammonia 90.0 H Total Creatine Kinase Troponin I High Sens Total Protein Albumin Globulin Urine Color Yellow Urine Clarity Sl. Cloudy Urine pH 6.0 Ur Specific [place] 1.015 Urine Protein 30 H Urine Glucose (UA) Normal Urine Ketones Negative Urine Occult Blood 50 H Urine Nitrite Negative Urine Bilirubin Negative Urine Urobilinogen Normal Ur Leukocyte Esterase 500 H Urine RBC 0 SEEN Urine WBC 10-25 SEEN Ur Squamous Epith Cells 0 SEEN Urine Bacteria 2+ Urine Mucus 0 SEEN Radiography Diagnostic Testing: Clinical Impression(s) from Imaging Studies Chest X-Ray 03/23/22 13:15 IMPRESSION: Progressive infiltrate in the right lower lobe with prominence of the right hilum. Electronically Signed: Dash Shin MD at 13:42 EDT , Discharge Plan Triage Chief Complaint: Weakness ED Provider: Blake Landaverde Dx/Rx/DC Orders Primary Care Provider: Janay Canchola
--- NOTE | 2022-03-23 13:15 | RAD_ITS ---
STUDY: X-RAY CHEST REASON FOR EXAM: Female, 51 years old. Weakness. Recent fall. TECHNIQUE: Single AP portable view of the chest. COMPARISON: Comparison is made with prior study dated 09/23/2021. FINDINGS: EKG electrodes are seen. A right-sided TIPS shunt is seen in the right upper quadrant. There is elevation of the right hemidiaphragm. Progressive infiltrate in the right lower lobe with prominence of the right hilum. Blunting of the right costophrenic angle. Normal size heart. Normal visualized pulmonary arteries. Normal visualized aortic arch and descending thoracic aorta. Normal visualized thoracic spine. Normal visualized ribs, clavicles, and shoulders. There is no demonstrated abnormality of the visualized soft tissue structures of the upper abdomen. RAD/Chest 1 View (Portable) IMPRESSION: Progressive infiltrate in the right lower lobe with prominence of the right hilum. Electronically Signed: Dash Shin MD at 13:42 EDT ,
[2022-03-23 13:42] LABS: Absolute Lymphocyte Count 0.47 X10^3/uL (0.83-4.51); Absolute Neutrophil Count 1.9 X10^3/uL (2.0-7.7); Basophil# 0.04 X10^3/uL; Basophil% 1.4 % (0-1); Eosinophil# 0.12 X10^3/uL; Eosinophils% 4.1 % (0-5); Hematocrit 23.1 % (37-47); Hemoglobin 7.9 g/dL (12.0-15.0); Lymphocyte # 0.47 X10^3/ul (0.83-4.51); Lymphocyte % 16.2 % (19-41); Mean Corp Hgb Conc 34.2 g/dL (32-36); Mean Corpuscular Hgb 31.1 pg (27.0-32.0); Mean Corpuscular Volume 90.9 fL (81-99); Mean Platelet Vol. 11.3 fl (6.2-12.0); Monocyte# 0.34 X10^3/uL; Monocyte% 11.7 % (0-10); NRBC Flagged by Analyzer 0 % (0-5); Neutrophil # 1.91 X10^3/uL (2.7-7.7); Neutrophil % 65.9 % (47-70); POSITIVE COUNT YES; POSITIVE DIFFERENTIAL YES; Platelet Count 63 K/mm3 (150-450); RBC Distribution Width CV 13.7 % (11.6-14.6); RBC Distribution Width SD 43.6 fl (35.1-43.9); Red Blood Count 2.54 M/mm3 (4.2-5.4); White Blood Count 2.9 K/mm3 (4.4-11.0)
[2022-03-23 13:46] LABS: Mucous, Urine 0 SEEN /hpf (<or=2+); Red Blood Cells-Urine 0 SEEN /hpf (0-5); Squamous Epithelial Cells - UA 0 SEEN /hpf (5-10)
[2022-03-23 13:48] LABS: International Normalized Ratio 1.4; Prothrombin Time (Protime)PT. 17.2 SECONDS (11.7-14.9)
[2022-03-23 13:52] LABS: Color, Urine Yellow (Yellow); Glucose, Dipstick Normal (Normal); Ketone-Dipstick Negative (Negative); Leukocyte Esterase-Dipstick 500 /ul (Negative); Nitrite-Dipstick Negative (Negative); Occult Blood-Urine 50 /ul (Negative); Protein-Dipstick 30 mg/dl (Negative); Specific Gravity, Urine 1.015 (1.002-1.030); Urine Bilirubin Dipstick Negative (Negative); Urine Clarity Sl. Cloudy (Clear); Urine Urobilinogen Normal (Normal)
[2022-03-23 13:59] LABS: AST(SGOT) 39 U/L (15-37); Alanine Aminotransfer ALT/SGPT 27 U/L (13-56); Albumin, Serum 3.4 g/dL (3.2-5.0); Alkaline Phosphatase 163 U/L (45-117); Anion Gap 6 (5-15); BUN 37 mg/dL (7-18); BUN/Creat Ratio 19.9 RATIO (10-20); Bilirubin, Direct 0.38 mg/dL (0.00-0.30); CPK Total, Creatine Kinase 200 U/L (26-192); Calcium,Total 8.3 mg/dL (8.5-10.1); Chloride 109 mmol/L (98-107); Creatinine, Serum 1.86 mg/dL (0.55-1.02); EST Glomerular Filtration Rate 30 mL/min (>60); Est Glom Filt Rate - Afr Amer 36 mL/min (>60); Estimated Creatinine Clearance 36.56 ml/min; Globulin 3.4 g/dL (2.2-4.2); Glucose 165 mg/dL (74-106); Potassium 4.1 mmol/L (3.5-5.1); Protein, Total 6.8 g/dL (6.4-8.2); Sodium Level 141 mmol/L (136-145); Troponin-I HS 24 pg/mL (3.0-54.0)
[2022-03-23 14:00] LABS: Bacteria 2+ /hpf (None Seen); White Blood Cells 10-25 SEEN /hpf (0-5)
[2022-03-23 14:08] LABS: Differential Indicated SCAN CRITERIA MET
[2022-03-23 14:11] LABS: Platelet Estimate MOD DEC (ADEQ); Red Cell Morphology NORM C+C NORMAL (NORM C&C)
--- NOTE | 2022-03-23 14:40 | CM.ED ---
MARIANA Note Referral Source: MD Referral Reason: SNF MD advised patient was recently discharged from [facility] after being there 10 days. [facility] had wanted patient to go to SNF but she refused and was sent home with home health. Patient fell yesterday and slept on the floor. Patient needs SNF placement for rehab. SW reviewed patient's chart. Patient has [employer] insurance and will need precertifiction for SNF placement. MARIANA confirmed this with Cora [facility] MARIANA, that patient needs admission for precertification. SW provided patient with list of SNF placements that are in network and asked patient to review the options for rehab. Patient requested to speak to secondary social studies teacher. Patient said that her first choice is [facility], [facility] and then [facility]. Patient said that she needs a hospital bed and DME at discharge and secondary social studies teacher encouraged her to speak to SNF regarding her discharge needs. MARIANA updated manager exchange and MD that patient needs admission as her insurance requires precertification. Plan: SNF [facility]
--- NOTE | 2022-03-23 15:32 | HP.PCM.HOS_ITS ---
HPI - General General Date of Admission: 03/23/22 HPI Narrative ANA GARCÍA, is a 51 F with an extensive pMH as outlined who presents via [facility] ED on 03/23/2022 with a complaint of physicians. She was recently admitted at [facility] for toxic hepatic encephalopathy due to hyperammonemia. IT was recommended that she go to SNF, but she refused. She was discharged home one day prior to admission, and fell down. She was too weak to care for herself adn couldnt even get up on her own. SHe denied any pain, any fever, chills, nausea, vomiting or diarrhea. Review of systems was otherwise negative. She therefore came in to the ED for SNF placement. Vitals were BP of 177/75, KS of 63, RR of 14 and temp of 98.1F. She was saturating at 100% on room air. CBC showed wbc of 2.9, Hb of 7.9 and platelets of 63. CR was 1.85, and AST/ALP was 39/27 and ALP of 163. Ammonia was 90 and CPK was 200.CXR showed progressive infiltrate in the right lower lobe with prominence of right hilum, though she had no clinical evidence of pneumonia. She is being admitted to be managed for debility and weakness, for SNF placement. [facility] Medical History Acute on chronic renal insufficiency Anemia Autoimmune hepatitis Bacteremia due to methicillin resistant Staphylococcus epidermidis Bipolar disorder Chronic pain Cirrhosis of liver Depression Diabetes mellitus Diabetes mellitus, type 2 Encephalopathy acute Reilly's thyroiditis Hepatic encephalopathy Hepatitis History of hypothyroidism Hypertension Kidney disease MRSA bacteremia Pancreatitis Pancytopenia Pancytopenia Peripheral neuropathy Schizoaffective disorder Severe sepsis Splenomegaly Home Medications magnesium oxide 400 mg PO BID 03/14/17 [History Last Taken 03/22/22] Xifaxan 550 mg PO BID 11/04/17 [History Last Taken 03/22/22] Latuda 40 mg PO QHS 03/20/21 [History Last Taken 03/22/22] pantoprazole 40 mg PO DAILY 03/20/21 [History Last Taken 03/22/22] sertraline 50 mg PO DAILY 03/20/21 [History Last Taken 03/22/22] sucralfate [Carafate] 1 g PO ACHS 03/20/21 [History Last Taken 03/22/22] ursodiol 300 mg capsule 300 mg PO BID 04/25/21 [History Last Taken 03/22/22] carbamazepine 100 mg PO BID 04/29/21 [History Last Taken 03/22/22] pregabalin 75 mg PO BID 09/18/21 [History Last Taken 03/22/22] zinc 50 mg PO DAILY 09/18/21 [History Last Taken 03/22/22] insulin lispro [Humalog KwikPen Insulin] 10 unit SUBCUT TID #0 ml 09/19/21 [Rx Last Taken 03/22/22] amlodipine 10 mg tablet 10 mg PO DAILY #30 tab 10/26/21 [Rx Last Taken 03/22/22] insulin degludec 100 unit/mL (3 mL) subcutaneous pen 10 unit SUBCUT DAILY 10/26/21 [History Last Taken 03/22/22] carvedilol 3.125 mg PO BID 03/23/22 [History Last Taken 03/22/22] furosemide 40 mg PO DAILY 03/23/22 [History Last Taken 03/22/22] levothyroxine 50 mcg PO DAILY 03/23/22 [History Last Taken 03/22/22] Allergy/AdvReac Type Severity Reaction Status Date / Time adhesive Allergy Rash Verified 03/23/22 12:03 escitalopram oxalate Allergy blindness Verified 03/23/22 12:03 [From Lexapro] gabapentin [From Neurontin] Allergy Alan Verified 03/23/22 12:03 Jez's Syndrome lamotrigine [From Lamictal] Allergy Blindness Verified 03/23/22 12:03 Preservatives Allergy passed Uncoded 03/23/22 12:03 out, lungs deflated sour cream Allergy Anaphylaxis Uncoded 03/23/22 12:03 Family History Father CVA (cerebral vascular accident) Myocardial infarction Heart disease CAD (coronary artery disease) Grandmother CHF (congestive heart failure) Sister Hypertension Mother Heart disease Surgical History H/O: hysterectomy History of abdominal paracentesis (10/2019) History of appendectomy History of cholecystectomy S/P TIPS (transjugular intrahepatic portosystemic shunt) Social History household members: significant other housing: house Smoking Status: Never smoker alcohol intake: never details: Unknown substance use type: does not use ROS Review of Systems ROS Unobtainable: Denies due to encephalopathy Constitutional Constitutional: Reports fatigue, malaise and weakness; Denies anorexia, change in weight, chills or fever(s) Eyes Eyes: Denies change in vision ENT HEENT: Denies headache(s) or sore throat Cardiovascular Cardiovascular: Denies chest pain, dyspnea on exertion, edema, lightheadedness, orthopnea, palpitations, paroxysmal nocturnal dyspnea or rapid heart rate Respiratory/Chest Respiratory/Chest: Denies cough, dyspnea, productive cough, shortness of breath at rest or shortness of breath with exertion Gastrointestinal Gastrointestinal: Denies diarrhea, dyspepsia, nausea or vomiting Genitourinary Genitourinary: Denies burning urination or dysuria Neurologic Neurologic: Denies confusion, dizziness, focal weakness, headache(s), numbness, seizures or syncope Psychiatric Psychiatric: Denies anxiety or depression Endocrine Endocrinology: Denies change in body appearance Hematologic/Lymphatic Hematologic/Lymphatic: Denies anemia Vital Signs Vital Signs Vital Signs: 03/23/22 11:57 03/23/22 12:01 03/23/22 15:06 Temperature 97.8 F 97.8 F 98.1 F Temperature Source Oral Oral Temporal Pulse Rate 65 65 63 Respiratory Rate 16 16 14 Respiratory Effort Normal Non-Labored Respiratory Pattern Normal Blood Pressure 177/70 H 177/70 H 177/75 H Blood Pressure Mean 105 105 109 Pulse Ox 95 95 100 Oxygen Delivery Method Room Air Room Air Room Air Weight Weight: 211 lb 6.773 oz Body Mass Index (BMI) 31.2 Physical Exam Const alert, oriented x3 and no apparent distress General Appearance: cooperative HEENT normocephalic and head/scalp atraumatic HEENT Narrative: has periorbital edema Eyes PERRL, EOMs intact bilaterally and conjunctivae normal Neck no lymphadenopathy, supple and no JVD Resp normal respiratory effort Resp Narrative: diminished breath sounds bibasally, no wheezing. On room air. Cardio regular rate, regular rhythm, S1 normal heart sound, S2 normal heart sound and no murmurs GI GI Narrative: abdomen mildly distended, no tenderness, no guarding or rebound tenderness. Extremity normal to inspection Extremity Narrative: bilateral 1+ lower extremity edema Peripheral Pulses: Yes pulses 2+ throughout Skin no rashes or lesions noted Neuro oriented x3, CN's II-XII intact bilaterally and moves all extremities Sensorium / Orientation: awake and alert Psych affect normal Results Lab / Micro Data Result Diagrams: 03/23/22 13:30 03/23/22 13:30 Labs: Laboratory Results - last 24 hr 03/23/22 13:30: WBC 2.9 L, RBC 2.54 L, Hgb 7.9 L, Hct 23.1 L, MCV 90.9, MCH 31.1, MCHC 34.2, RDW Std Deviation 43.6, RDW Coeff of Valentina 13.7, Plt Count 63 L, MPV 11.3, Immature Gran % (Auto) 0.700, Neut % (Auto) 65.9, Lymph % (Auto) 16.2 L, [place] % (Auto) 11.7 H, Eos % (Auto) 4.1, Baso % (Auto) 1.4 H, Absolute Neuts (auto) 1.9 L, Absolute Lymphs (auto) 0.47 L, Nucleated RBC % 0, Differential Comment , Diff Path Review May , Platelet Estimate MOD DEC, RBC Morphology NORM C+C 03/23/22 13:30: PT 17.2 H, INR 1.4 03/23/22 13:30: Sodium 141, Potassium 4.1, Chloride 109 H, Carbon Dioxide 26.0, Anion Gap 6, BUN 37 H, Creatinine 1.86 H, Estim Creat Clear Calc 36.56, Est GFR (MDRD) Af Amer 36 L, Est GFR (MDRD) Non-Af 30 L, BUN/Creatinine Ratio 19.9, Glucose 165 H, Calcium 8.3 L, Total Bilirubin 1.00, Direct Bilirubin 0.38 H, AST 39 H, ALT 27, Alkaline Phosphatase 163 H, Total Creatine Kinase 200 H, Troponin I High Sens 24, Total Protein 6.8, Albumin 3.4, Globulin 3.4 03/23/22 13:30: Ammonia 90.0 H 03/23/22 13:35: Urine Color Yellow, Urine Clarity Sl. Cloudy, Urine pH 6.0, Ur Specific [place] 1.015, Urine Protein 30 H, Urine Glucose (UA) Normal, Urine Ketones Negative, Urine Occult Blood 50 H, Urine Nitrite Negative, Urine Bilirubin Negative, Urine Urobilinogen Normal, Ur Leukocyte Esterase 500 H, Urine RBC 0 SEEN, Urine WBC 10-25 SEEN, Ur Squamous Epith Cells 0 SEEN, Urine Bacteria 2+, Urine Mucus 0 SEEN Radiology Impression Chest X-Ray 03/23/22 13:15 IMPRESSION: Progressive infiltrate in the right lower lobe with prominence of the right hilum. Electronically Signed: Dash Shin MD at 13:42 EDT , Assessment & Plan Assessment/Plan (1) Debility: (2) Weakness: PLAN: #Debility and weakness in * admit to Med Surg * urinalysis showed evidence of UTI, but she says she was treated for UTI at [facility] where she was on admission for 10 days and was only discharged 1 day ago * wbc is 2.9 * was counseled taht she would need placement whilst at [facility], but she refused. * now willing to be placed in SNF * PT/OT consult * fall precautions * social work instructor/pillowcase turner to help with placement * #History of autoimmune hepatitis * on lactulose to help prevent encephalopathy * on furosemide and ursodiol as well as xifaxan * #TYpe 2 diabetes mellitus * on lantus 10 units daily * ISS. Accuchecks ACHS * #Pancytopenia * this is chronic, due to autoimmune hepatitis * will monitor. * #Hypothyroidism: on synthroid #Hypertension: on amlodipine and carvedilol #Depression; on sertraline #BIpolar disorder and schizoaffective disorder: on Latuda #GERD;on sucralfate and PPI DVT prophylaxis: SCDs. no anticoagulation o/a of thrombocytopenia COde status: full code * Patient counseled extensively about different types of CODE STATUS including full code, DNR CCA and DNR CCA. Patient elects to be full code. Total [id number] time 16 minutes. Charges/Coding Visit Charges OBSV E&M: 74911 Initial observation care L2 Procedures Hospitalists Procedures: 28243 Advncd Care Plan 30 Min
[2022-03-23] MEDS: 0.9% Normal Saline 1,000 ML 75 ML IV (17:07)
[2022-03-23 17:15] LABS: Bedside Glucose 119 mg/dL (74-106)
[2022-03-23] MEDS: Pregabalin 75 MG Capsule PO (22:27)
[2022-03-23] MEDS: carBAMazepine 200 MG Tablet 100 MG PO (22:27)
[2022-03-23] MEDS: Carvedilol 3.125 MG TABLET PO (22:27)
[2022-03-23] MEDS: Ursodiol 250 MG Tablet PO (22:27)
[2022-03-23] MEDS: Insulin Lispro 100 UNIT/ML INSULN.PEN SC (22:27)
[2022-03-23] MEDS: rifAXIMin 550 MG Tablet PO (22:27)
[2022-03-23] MEDS: Sucralfate 1 GM Tablet PO (22:27)
[2022-03-23 22:36] LABS: Bedside Glucose 174 mg/dL (74-106)
[2022-03-24] VITALS (20 sets, daily range): BP systolic 127–171; BP diastolic 53–92; PULSE 53–61; RESP 16–18; TEMP 36.4–36.8; O2SAT 94–100
[2022-03-24] MEDS: Ondansetron 4 MG/2 ML Vial IV ×2 (02:56→18:01)
[2022-03-24] MEDS: Sucralfate 1 GM Tablet PO ×4 (06:30→21:45)
[2022-03-24] MEDS: Levothyroxine 50 MCG Tablet PO (06:30)
[2022-03-24 06:41] LABS: Bedside Glucose 124 mg/dL (74-106)
[2022-03-24 06:45] LABS: Absolute Lymphocyte Count 0.42 X10^3/uL (0.83-4.51); Absolute Neutrophil Count 1.5 X10^3/uL (2.0-7.7); Basophil# 0.03 X10^3/uL; Basophil% 1.4 % (0-1); Eosinophil# 0.08 X10^3/uL; Eosinophils% 3.6 % (0-5); Hematocrit 19.9 % (37-47); Hemoglobin 6.6 g/dL (12.0-15.0); Lymphocyte # 0.42 X10^3/ul (0.83-4.51); Lymphocyte % 19.1 % (19-41); Mean Corp Hgb Conc 33.2 g/dL (32-36); Mean Corpuscular Volume 93.4 fL (81-99); Mean Platelet Vol. 11.4 fl (6.2-12.0); Monocyte% 9.1 % (0-10); NRBC Flagged by Analyzer 0 % (0-5); Neutrophil # 1.46 X10^3/uL (2.7-7.7); Neutrophil % 66.3 % (47-70); POSITIVE COUNT YES; POSITIVE DIFFERENTIAL YES; RBC Distribution Width CV 13.9 % (11.6-14.6); RBC Distribution Width SD 45.6 fl (35.1-43.9); Red Blood Count 2.13 M/mm3 (4.2-5.4); White Blood Count 2.2 K/mm3 (4.4-11.0)
[2022-03-24 06:48] LABS: Differential Indicated SCAN CRITERIA MET
[2022-03-24 06:50] LABS: Platelet Count 43 K/mm3 (150-450)
[2022-03-24 07:04] LABS: Differential Comment SCANNED; Platelet Estimate MKD DEC (ADEQ)
[2022-03-24 07:32] LABS: AST(SGOT) 33 U/L (15-37); Alanine Aminotransfer ALT/SGPT 22 U/L (13-56); Albumin, Serum 2.9 g/dL (3.2-5.0); Alkaline Phosphatase 129 U/L (45-117); Anion Gap 6 (5-15); BUN 38 mg/dL (7-18); BUN/Creat Ratio 20.3 RATIO (10-20); Calcium,Total 7.8 mg/dL (8.5-10.1); Chloride 111 mmol/L (98-107); Creatinine, Serum 1.87 mg/dL (0.55-1.02); EST Glomerular Filtration Rate 30 mL/min (>60); Est Glom Filt Rate - Afr Amer 36 mL/min (>60); Estimated Creatinine Clearance 36.36 ml/min; Globulin 2.9 g/dL (2.2-4.2); Glucose 133 mg/dL (74-106); Potassium 4.2 mmol/L (3.5-5.1); Protein, Total 5.8 g/dL (6.4-8.2); Sodium Level 142 mmol/L (136-145)
[2022-03-24] MEDS: 0.9% Saline Lock 10 ML Syringe IV ×3 (09:02→21:45)
[2022-03-24] MEDS: Magnesium Chloride 64 MG Delay Rel.Tablet 128 MG PO (09:04)
[2022-03-24] MEDS: Ursodiol 250 MG Tablet PO ×2 (09:04→21:45)
[2022-03-24] MEDS: carBAMazepine 200 MG Tablet 100 MG PO ×2 (09:04→21:44)
[2022-03-24] MEDS: rifAXIMin 550 MG Tablet PO ×2 (09:04→21:45)
[2022-03-24] MEDS: amLODIPine 10 MG Tablet PO (09:06)
[2022-03-24] MEDS: Carvedilol 3.125 MG TABLET PO (09:06)
[2022-03-24] MEDS: Insulin Glargine-YFGN 100 UNIT/ML Pen 10 UNIT SC (09:06)
[2022-03-24] MEDS: Pregabalin 75 MG Capsule PO ×2 (09:08→21:45)
[2022-03-24] MEDS: Furosemide 40 MG Tablet PO (09:08)
[2022-03-24] MEDS: Sertraline 50 MG Tablet PO (09:09)
[2022-03-24] MEDS: Lactulose 20 GM/30 ML UDC PO ×4 (09:52→21:44)
--- NOTE | 2022-03-24 10:36 | PCM.CONS.GEN ---
Assessment & Plan Assessment/Plan (1) Cirrhosis: PLAN: Decompensated cirrhosis with encephalopathy, worsening pancytopenia and acute kidney injury. She says that she is undergoing transplant evaluation but she is not on the transplant list. As per documentation from outside hospital there is a problem with compliance. She does not drink any alcohol as per the patient. She does struggle with mental disease as per documentation which could be an issue leading to compliance. I do not see any signs of ascites at this time.Her current meld is 24 with a child Stoddard score of C. (2) Pancytopenia: PLAN: Pancytopenia secondary to cirrhosis and splenomegaly along with bone marrow suppression. (3) Anemia: PLAN: Possible acute blood loss anemia. She will need an upper endoscopy. At this time she is getting lactulose and I would like her to be less encephalopathic. Her ammonia level was 110 on admission she still very encephalopathic at least a grade 3. Unless her hemoglobin continues to drop then we will need to do it more emergently. (4) Encephalopathy: PLAN: Grade 3 and hepatic encephalopathy. Recommend lactulose 20 cc p.o. every 2 hours and Xifaxan 550 mg twice a day. I will give her albumin and I will start her on ceftriaxone in anticipation for an upper endoscopy. HPI Consult Data Date of Consult: 03/24/22 HPI Narrative HPI Narrative: ANA GARCÍA, is a 51 F who presents From home with worsening lethargy fatigue and weakness. She has a history of autoimmune hepatitis with cirrhosis and portal gastropathy, possible esophageal varices, recurrent encephalopathy. When she came into the ED she was found to be dehydrated, encephalopathic and in mild rhabdomyolysis. I was consulted today to see the patient due to decrease in hemoglobin. She has a history of pancytopenia with a baseline hemoglobin around 10 and her hemoglobin is 6.6 this morning. Also her INR is 1.4. Her BUN/creatinine ratio is also elevated at 38 1.87 with a baseline creatinine of 1. Her white blood cell count is 2.2 and platelet count is 43. [facility] Medical History Acute on chronic renal insufficiency Anemia Autoimmune hepatitis Bacteremia due to methicillin resistant Staphylococcus epidermidis Bipolar disorder Chronic pain Cirrhosis of liver Depression Diabetes mellitus Diabetes mellitus, type 2 Encephalopathy acute Reilly's thyroiditis Hepatic encephalopathy Hepatitis History of hypothyroidism Hypertension Kidney disease MRSA bacteremia Pancreatitis Pancytopenia Pancytopenia Peripheral neuropathy Schizoaffective disorder Severe sepsis Splenomegaly Home Medications magnesium oxide 400 mg PO BID 03/14/17 [History Last Taken 03/22/22] Xifaxan 550 mg PO BID 11/04/17 [History Last Taken 03/22/22] Latuda 40 mg PO QHS 03/20/21 [History Last Taken 03/22/22] pantoprazole 40 mg PO DAILY 03/20/21 [History Last Taken 03/22/22] sertraline 50 mg PO DAILY 03/20/21 [History Last Taken 03/22/22] sucralfate [Carafate] 1 g PO ACHS 03/20/21 [History Last Taken 03/22/22] ursodiol 300 mg capsule 300 mg PO BID 04/25/21 [History Last Taken 03/22/22] carbamazepine 100 mg PO BID 04/29/21 [History Last Taken 03/22/22] pregabalin 75 mg PO BID 09/18/21 [History Last Taken 03/22/22] zinc 50 mg PO DAILY 09/18/21 [History Last Taken 03/22/22] insulin lispro [Humalog KwikPen Insulin] 10 unit SUBCUT TID #0 ml 09/19/21 [Rx Last Taken 03/22/22] amlodipine 10 mg tablet 10 mg PO DAILY #30 tab 10/26/21 [Rx Last Taken 03/22/22] insulin degludec 100 unit/mL (3 mL) subcutaneous pen 10 unit SUBCUT DAILY 10/26/21 [History Last Taken 03/22/22] carvedilol 3.125 mg PO BID 03/23/22 [History Last Taken 03/22/22] furosemide 40 mg PO DAILY 03/23/22 [History Last Taken 03/22/22] levothyroxine 50 mcg PO DAILY 03/23/22 [History Last Taken 03/22/22] Allergy/AdvReac Type Severity Reaction Status Date / Time adhesive Allergy Rash Verified 03/23/22 12:03 escitalopram oxalate Allergy blindness Verified 03/23/22 12:03 [From Lexapro] gabapentin [From Neurontin] Allergy Alan Verified 03/23/22 12:03 Jez's Syndrome lamotrigine [From Lamictal] Allergy Blindness Verified 03/23/22 12:03 Preservatives Allergy passed Uncoded 03/23/22 12:03 out, lungs deflated sour cream Allergy Anaphylaxis Uncoded 03/23/22 12:03 Family History Father CVA (cerebral vascular accident) Myocardial infarction Heart disease CAD (coronary artery disease) Grandmother CHF (congestive heart failure) Sister Hypertension Mother Heart disease Surgical History H/O: hysterectomy History of abdominal paracentesis (10/2019) History of appendectomy History of cholecystectomy S/P TIPS (transjugular intrahepatic portosystemic shunt) Social History household members: significant other housing: house Smoking Status: Never smoker alcohol intake: never details: Unknown substance use type: does not use ROS Review of Systems ROS Unobtainable: other Constitutional Constitutional: Denies fatigue, fever(s), poor appetite, weight gain or weight loss ENT HEENT: Denies mouth lesions Cardiovascular Cardiovascular: Denies abdominal bloating, abdominal edema or abdominal pain Respiratory/Chest Respiratory/Chest: Denies change in mental status, change in phlegm color, chest congestion or chest tightness Gastrointestinal Gastrointestinal: Denies belching, bloating, change in bowel habits, change in stool character, chewing difficulty, coffee ground emesis, constipation, cramping, diarrhea, dyspepsia, dysphagia, early satiety, excessive flatus, fecal incontinence, heartburn, hematemesis, hematochezia, hemorrhoids, loose stools, melena, nausea, odynophagia, rectal bleeding, tenesmus, vomiting or weight changes Genitourinary Genitourinary: Denies abdominal discomfort, burning urination or itching Musculoskeletal Musculoskeletal: Reports as per HPI; Denies muscle weakness or myalgias Integumentary Integumentary: Denies jaundice Neurologic Neurologic: Denies lack of coordination or weakness Psychiatric Psychiatric: Denies confusion, depression, memory loss, mood swings, paranoia or suicidal ideation Endocrine Endocrinology: Denies systems reviewed and no addt'l complaints, except as documented Hematologic/Lymphatic Hematologic/Lymphatic: Denies anemia, easy bleeding, easy bruising or lymphadenopathy Allergic/Immunologic Allergic/Immunologic: Denies systems reviewed and no addt'l complaints, except as documented Physical Exam Const alert General Appearance: cooperative Orientation / Consciousness: oriented to person HEENT hearing grossly normal bilaterally Head and Scalp: normal to inspection Face and Sinus: face symmetric Nose: external nose normal Mouth: oral and palatal mucosa normal Eyes conjunctivae normal General Eye: normal appearance of both eyes Neck full ROM General: normal visual inspection Lymph Lymphatic: no lymphadenopathy noted Chest inspection of chest normal and palpation of chest normal Chest: symmetrical chest wall rise Resp normal respiratory effort Effort and Inspection: able to speak in complete sentences Cardio regular rate GI non-distended Percussion: normal to percussion Rectal Exam: deferred Neuro Speech: speech normal Gait (Neuro): normal gait Lab / Micro Data Result Diagrams: 03/24/22 06:34 03/24/22 06:34 Labs: Laboratory Results - last 24 hr 03/23/22 13:30: WBC 2.9 L, RBC 2.54 L, Hgb 7.9 L, Hct 23.1 L, MCV 90.9, MCH 31.1, MCHC 34.2, RDW Std Deviation 43.6, RDW Coeff of Valentina 13.7, Plt Count 63 L, MPV 11.3, Immature Gran % (Auto) 0.700, Neut % (Auto) 65.9, Lymph % (Auto) 16.2 L, [place] % (Auto) 11.7 H, Eos % (Auto) 4.1, Baso % (Auto) 1.4 H, Absolute Neuts (auto) 1.9 L, Absolute Lymphs (auto) 0.47 L, Nucleated RBC % 0, Differential Comment , Diff Path Review May foll, Platelet Estimate MOD DEC, RBC Morphology NORM C+C 03/23/22 13:30: PT 17.2 H, INR 1.4 03/23/22 13:30: Sodium 141, Potassium 4.1, Chloride 109 H, Carbon Dioxide 26.0, Anion Gap 6, BUN 37 H, Creatinine 1.86 H, Estim Creat Clear Calc 36.56, Est GFR (MDRD) Af Amer 36 L, Est GFR (MDRD) Non-Af 30 L, BUN/Creatinine Ratio 19.9, Glucose 165 H, Calcium 8.3 L, Total Bilirubin 1.00, Direct Bilirubin 0.38 H, AST 39 H, ALT 27, Alkaline Phosphatase 163 H, Total Creatine Kinase 200 H, Troponin I High Sens 24, Total Protein 6.8, Albumin 3.4, Globulin 3.4 03/23/22 13:30: Ammonia 90.0 H 03/23/22 13:35: Urine Color Yellow, Urine Clarity Sl. Cloudy, Urine pH 6.0, Ur Specific [place] 1.015, Urine Protein 30 H, Urine Glucose (UA) Normal, Urine Ketones Negative, Urine Occult Blood 50 H, Urine Nitrite Negative, Urine Bilirubin Negative, Urine Urobilinogen Normal, Ur Leukocyte Esterase 500 H, Urine RBC 0 SEEN, Urine WBC 10-25 SEEN, Ur Squamous Epith Cells 0 SEEN, Urine Bacteria 2+, Urine Mucus 0 SEEN 03/23/22 17:09: POC Glucose 119 H 03/23/22 22:23: POC Glucose 174 H 03/24/22 06:31: POC Glucose 124 H 03/24/22 06:34: WBC 2.2 L, RBC 2.13 L, Hgb 6.6 L, Hct 19.9 L, MCV 93.4, MCH 31.0, MCHC 33.2, RDW Std Deviation 45.6 H, RDW Coeff of Valentina 13.9, Plt Count 43 L*, MPV 11.4, Immature Gran % (Auto) 0.500, Neut % (Auto) 66.3, Lymph % (Auto) 19.1, [place] % (Auto) 9.1, Eos % (Auto) 3.6, Baso % (Auto) 1.4 H, Absolute Neuts (auto) 1.5 L, Absolute Lymphs (auto) 0.42 L, Nucleated RBC % 0, Differential Comment SCANNED, Diff Path Review March foll, Platelet Estimate MKD 03/24/22 06:34: Sodium 142, Potassium 4.2, Chloride 111 H, Carbon Dioxide 25.0, Anion Gap 6, BUN 38 H, Creatinine 1.87 H, Estim Creat Clear Calc 36.36, Est GFR (MDRD) Af Amer 36 L, Est GFR (MDRD) Non-Af 30 L, BUN/Creatinine Ratio 20.3 H, Glucose 133 H, Calcium 7.8 L, Total Bilirubin 0.80, AST 33, ALT 22, Alkaline Phosphatase 129 H, Total Protein 5.8 L, Albumin 2.9 L, Globulin 2.9, Albumin/Globulin Ratio 1.0 03/24/22 07:48: Crossmatch See Detail Radiology Impression Chest X-Ray 03/23/22 13:15 IMPRESSION: Progressive infiltrate in the right lower lobe with prominence of the right hilum. Electronically Signed: Dash Shin MD at 13:42 EDT , Charges/Coding Visit Charges Inpatient E&M: 01471 Init Hosp L3
[2022-03-24] MEDS: Insulin Lispro 100 UNIT/ML INSULN.PEN SC ×2 (10:53→15:39)
[2022-03-24 11:00] LABS: Bedside Glucose 172 mg/dL (74-106)
--- NOTE | 2022-03-24 11:06 | PN.HOSP_ITS ---
Subjective Subjective Patient seen and examined. She complains of feeling more lethargic today and feels like she is getting encephalopathic. She denies any fever or chills, nausea vomiting or diarrhea. He denies any coffee-ground emesis. She does admit to a history of esophageal varices though she doesnt remember if she has had any procedure for them. Review of systems is otherwise negative. Objective Data Objective Data Vital Signs: Vital Signs Temp Pulse Resp BP Pulse Ox 97.7 F L 60 16 146/61 H 98 03/24/22 08:35 03/24/22 08:49 03/24/22 08:35 03/24/22 08:35 03/24/22 08:35 Oxygen Delivery Method Room Air Weight: 206 lb Body Mass Index (BMI) 30.4 Intake & Output: Intake and Output for Last 24 Hours 03/22/22 03/23/22 03/24/22 23:59 23:59 23:59 Intake Total 200 / 500 2192.5 / 2192.5 Output Total 200 / 200 Balance 200 / 500 1991.5 / 1991.5 Lab / Micro Data Result Diagrams: 03/24/22 06:34 03/24/22 06:34 Labs: Laboratory Results - last 24 hr 03/23/22 13:30: WBC 2.9 L, RBC 2.54 L, Hgb 7.9 L, Hct 23.1 L, MCV 90.9, MCH 31.1, MCHC 34.2, RDW Std Deviation 43.6, RDW Coeff of Valentina 13.7, Plt Count 63 L, MPV 11.3, Immature Gran % (Auto) 0.700, Neut % (Auto) 65.9, Lymph % (Auto) 16.2 L, [place] % (Auto) 11.7 H, Eos % (Auto) 4.1, Baso % (Auto) 1.4 H, Absolute Neuts (auto) 1.9 L, Absolute Lymphs (auto) 0.47 L, Nucleated RBC % 0, Differential Comment , Diff Path Review May mitali, Platelet Estimate MOD DEC, RBC Morphology NORM C+C 03/23/22 13:30: PT 17.2 H, INR 1.4 03/23/22 13:30: Sodium 141, Potassium 4.1, Chloride 109 H, Carbon Dioxide 26.0, Anion Gap 6, BUN 37 H, Creatinine 1.86 H, Estim Creat Clear Calc 36.56, Est GFR (MDRD) Af Amer 36 L, Est GFR (MDRD) Non-Af 30 L, BUN/Creatinine Ratio 19.9, Gl ucose 165 H, Calcium 8.3 L, Total Bilirubin 1.00, Direct Bilirubin 0.38 H, AST 39 H, ALT 27, Alkaline Phosphatase 163 H, Total Creatine Kinase 200 H, Troponin I High Sens 24, Total Protein 6.8, Albumin 3.4, Globulin 3.4 03/23/22 13:30: Ammonia 90.0 H 03/23/22 13:35: Urine Color Yellow, Urine Clarity Sl. Cloudy, Urine pH 6.0, Ur Specific [place] 1.015, Urine Protein 30 H, Urine Glucose (UA) Normal, Urine Ketones Negative, Urine Occult Blood 50 H, Urine Nitrite Negative, Urine Bilirubin Negative, Urine Urobilinogen Normal, Ur Leukocyte Esterase 500 H, Urine RBC 0 SEEN, Urine WBC 10-25 SEEN, Ur Squamous Epith Cells 0 SEEN, Urine Ba cteria 2+, Urine Mucus 0 SEEN 03/23/22 17:09: POC Glucose 119 H 03/23/22 22:23: POC Glucose 174 H 03/24/22 06:31: POC Glucose 124 H 03/24/22 06:34: WBC 2.2 L, RBC 2.13 L, Hgb 6.6 L, Hct 19.9 L, MCV 93.4, MCH 31.0, MCHC 33.2, RDW Std Deviation 45.6 H, RDW Coeff of Valentina 13.9, Plt Count 43 L*, MPV 11.4, Immature Gran % (Auto) 0.500, Neut % (Auto) 66.3, Lymph % (Auto) 19.1, [place] % (Auto) 9.1, Eos % (Auto) 3.6, Baso % (Auto) 1.4 H, Absolute Neuts (auto) 1.5 L, Absolute Lymphs (auto) 0.42 L, Nucleated RBC % 0, Differential Comment SCANNED, Diff Path Review March foll, Platelet Estimate MKD 03/24/22 06:34: Sodium 142, Potassium 4.2, Chloride 111 H, Carbon Dioxide 25.0, Anion Gap 6, BUN 38 H, Creatinine 1.87 H, Estim Creat Clear Calc 36.36, Est GFR (MDRD) Af Amer 36 L, Est GFR (MDRD) Non-Af 30 L, BUN/Creatinine Ratio 20.3 H, Glucose 133 H, Calcium 7.8 L, Total Bilirubin 0.80, AST 33, ALT 22, Alkaline Phosphatase 129 H, Total Protein 5.8 L, Albumin 2.9 L, Globulin 2.9, Albumin/Globulin Ratio 1.0 03/24/22 07:48: Blood Type O POSITIVE, Antibody Screen NEGATIVE, Crossmatch See Detail 03/24/22 10:52: POC Glucose 172 H Radiography Diagnostic Testing: Radiology Impression Chest X-Ray 03/23/22 13:15 IMPRESSION: Progressive infiltrate in the right lower lobe with prominence of the right hilum. Electronically Signed: Dash Shin MD at 13:42 EDT , Physical Exam Const alert, oriented x3 and no apparent distress General Appearance: cooperative Orientation / Consciousness: lethargic HEENT normocephalic, head/scalp atraumatic and moist oral mucous membranes Head and Scalp: normocephalic Eyes PERRL, EOMs intact bilaterally and conjunctivae normal Neck no lymphadenopathy, supple and no JVD Resp normal respiratory effort Resp Narrative: diminished breath sounds bibasally, no wheezing. On room air. Cardio regular rate, regular rhythm, S1 normal heart sound, S2 normal heart sound and no murmurs GI GI Narrative: abdomen mildly distended, no tenderness, no guarding or rebound tenderness. positive fluid thrill Extremity normal to inspection Extremity Narrative: bilateral 1+ lower extremity edema Peripheral Pulses: Yes pulses 2+ throughout Skin no rashes or lesions noted Neuro oriented x3, CN's II-XII intact bilaterally and moves all extremities Neuro Narrative: positive hepatic flap Sensorium / Orientation: awake and alert Psych Psych Narrative: lethargic Assessment & Plan Assessment/Plan (1) Debility: (2) Weakness: PLAN: #Debility and weakness * PT/OT on board. Fall precautions * awaiting placement * #Acute toxic hepatic encephalopathy * Patient is more lethargic today. She says her ammonia on discharge from [facility] was around 40 but was 90 here yesterday. * Ammonia today is pending. * On lactulose 20 mls 3 times daily and titrate for 2-3 loose stools daily. * urinalysis shows evidence of UTI, but patient says she was treated for UTI at [facility] * #Acute on chronic anemia * Hemoglobin is down to 6.6 today. Patient states that her hemoglobin dropped below 7 when she was at [facility] also but she was not given any blood transfusion and this was monitored until it came up above 7. * She has a history of esophageal varices * transfuse with 2 units of PRBCs * consult gastroenterology * stool for occult blood ordered * #History of autoimmune hepatitis * on lactulose to help prevent encephalopathy * on furosemide and ursodiol as well as xifaxan * #TYpe 2 diabetes mellitus * on lantus 10 units daily * ISS. Accuchecks ACHS * #Pancytopenia * this is chronic, due to autoimmune hepatitis * will monitor. * #Hypothyroidism: on synthroid #Hypertension: on amlodipine and carvedilol #Depression; on sertraline #BIpolar disorder and schizoaffective disorder: on Latuda #GERD;on sucralfate and PPI DVT prophylaxis: SCDs. no anticoagulation o/a of thrombocytopenia COde status: full code * Charges/Coding Visit Charges Inpatient E&M: 04189 Subs Hosp L3
[2022-03-24] MEDS: Albumin Human 25% (50 mL) 12.5 GM/50 ML IV.SOLN IV (11:29)
--- NOTE | 2022-03-24 11:40 | CASEMGMT ---
This RN CM to room with FAM form, explanation done-pt voices understanding, and signs FAM form at this time. Original to chart and copy to pt. Pt has MCR IP vs OBS booklet at bedside. Pt does states that she would like to change her 1st choice for SNF to [facility] at this time and Mikayla PEÑA aware, voices understanding. SStaten TAMIKO CM
--- NOTE | 2022-03-24 12:28 | CASEMGMT ---
Social Work As per case management, pt would now like to go to [facility] when able. SW called [facility], message left for admissions, and initial referral sent. SW will follow up on Saturday. CAMILLA Coulter
--- NOTE | 2022-03-24 13:33 | CASEMGMT ---
Social Work SW confirmed w/pt that she does want to go to [facility]. SW also asked pt about mental health. She states she has been hospitalized twice in the last few years for depression, and states now she is doing really well and has no depression. She thinks it was once in 2019 and once in 2020, but she cannot remember the exact dates. SW asked if her sister would know the dates, she states no. Pt sees a psychologist she said, at [facility], for medication management. SW asked if this person may know when she was in the hospital, pt states she may. SW will follow up Saturday w/[facility] to find out when pt's inpt hospital stays were, as this may trigger a further review when the PAS/RR is completed. CAMILLA Coulter
--- NOTE | 2022-03-24 13:39 | CASEMGMT ---
LW/POA forms both in summary tab of echart, pt's sister James Nichole is listed as medical POA. CAMILLA Coulter
[2022-03-24 15:46] LABS: Bedside Glucose 172 mg/dL (74-106)
[2022-03-24] MEDS: LURASIDONE HCL 20 MG TABLET PO (21:47)
[2022-03-24 21:55] LABS: Bedside Glucose 137 mg/dL (74-106)
[2022-03-24] MEDS: hydrALAZINE 20 MG/ML Vial 10 MG IV (22:45)
[2022-03-25] VITALS (18 sets, daily range): BP systolic 126–150; BP diastolic 56–69; PULSE 52–65; RESP 16–18; TEMP 36.4–36.9; O2SAT 96–100
[2022-03-25 06:39] LABS: Absolute Lymphocyte Count 0.39 X10^3/uL (0.83-4.51); Absolute Neutrophil Count 1.4 X10^3/uL (2.0-7.7); Basophil# 0.03 X10^3/uL; Basophil% 1.4 % (0-1); Eosinophil# 0.09 X10^3/uL; Eosinophils% 4.3 % (0-5); Hemoglobin 7.7 g/dL (12.0-15.0); Lymphocyte # 0.39 X10^3/ul (0.83-4.51); Lymphocyte % 18.6 % (19-41); Mean Corp Hgb Conc 33.5 g/dL (32-36); Mean Corpuscular Hgb 30.2 pg (27.0-32.0); Mean Corpuscular Volume 90.2 fL (81-99); Monocyte# 0.23 X10^3/uL; NRBC Flagged by Analyzer 0 % (0-5); Neutrophil # 1.35 X10^3/uL (2.7-7.7); Neutrophil % 64.2 % (47-70); POSITIVE COUNT YES; POSITIVE DIFFERENTIAL YES; Platelet Count 42 K/mm3 (150-450); RBC Distribution Width CV 15.9 % (11.6-14.6); Red Blood Count 2.55 M/mm3 (4.2-5.4); White Blood Count 2.1 K/mm3 (4.4-11.0)
[2022-03-25 06:42] LABS: Differential Indicated SCAN CRITERIA MET
[2022-03-25 06:43] LABS: Partial Thromboplast Time 37.5 Seconds (24.1-36.2)
[2022-03-25 06:46] LABS: Bedside Glucose 97 mg/dL (74-106)
[2022-03-25 06:53] LABS: Anisocytosis 1+; Platelet Estimate MKD DEC (ADEQ)
[2022-03-25 06:55] LABS: Atypical Lymphocyte 1+ %
[2022-03-25 07:08] LABS: AST(SGOT) 29 U/L (15-37); Alanine Aminotransfer ALT/SGPT 21 U/L (13-56); Albumin, Serum 2.9 g/dL (3.2-5.0); Alkaline Phosphatase 115 U/L (45-117); Anion Gap 8 (5-15); BUN 37 mg/dL (7-18); BUN/Creat Ratio 20.1 RATIO (10-20); Chloride 114 mmol/L (98-107); Creatinine, Serum 1.84 mg/dL (0.55-1.02); EST Glomerular Filtration Rate 30 mL/min (>60); Est Glom Filt Rate - Afr Amer 37 mL/min (>60); Estimated Creatinine Clearance 36.95 ml/min; Globulin 2.9 g/dL (2.2-4.2); Glucose 103 mg/dL (74-106); Magnesium 1.9 mg/dL (1.6-2.6); Phosphorus 3.5 mg/dL (2.5-4.9); Potassium 3.6 mmol/L (3.5-5.1); Protein, Total 5.8 g/dL (6.4-8.2); Sodium Level 145 mmol/L (136-145); Thyroid Stim Hormone (TSH) 8.66 uIU/mL (0.358-3.74)
[2022-03-25 07:14] LABS: Hemoglobin A1c 5.2 % (3.8-5.6)
[2022-03-25 07:55] LABS: T4 Free Direct 0.98 ng/dL (0.76-1.46)
--- NOTE | 2022-03-25 08:56 | OP.EGD_ITS ---
Patient Name: Angela Lau Procedure Date: 03/25/2022 7:52 AM Date of : 1970 Age: 51 Procedure: Upper GI endoscopy Indications: Iron deficiency anemia Providers: Shay Davis DO Medicines: Monitored Anesthesia Care Patient Profile: This is a 51 year old female. Refer to note in patient chart for documentation of history and physical. Patient has symptoms. Complications: No immediate complications. Procedure: Pre-Anesthesia Assessment: - Prior to the procedure, a History and Physical was performed, and patient medications and allergies were reviewed. The risks and benefits of the procedure and the sedation options and risks were discussed with the patient. All questions were answered and informed consent was obtained. Patient identification and proposed procedure were verified by the physician in the pre-procedure area. Mental Status Examination: alert and oriented. Airway Examination: normal oropharyngeal airway and neck mobility. Respiratory Examination: clear to auscultation. CV Examination: normal. Prophylactic Antibiotics: The patient does not require prophylactic antibiotics. Prior Anticoagulants: The patient has taken no previous anticoagulant or antiplatelet agents. ASA Grade Assessment: II - A patient with mild systemic disease. After reviewing the risks and benefits, the patient was deemed in satisfactory condition to undergo the procedure. The anesthesia plan was to use moderate sedation / analgesia (conscious sedation). Immediately prior to administration of medications, the patient was re-assessed for adequacy to receive sedatives. The heart rate, respiratory rate, oxygen saturations, blood pressure, adequacy of pulmonary ventilation, and response to care were monitored throughout the procedure. The physical status of the patient was re-assessed after the procedure. After obtaining informed consent, the endoscope was passed under direct vision. Throughout the procedure, the patient's blood pressure, pulse, and oxygen saturations were monitored continuously. The gastroscope was introduced through the mouth, and advanced to the second part of duodenum. The upper GI endoscopy was accomplished without difficulty. The patient tolerated the procedure well. Moderate Sedation: Moderate (conscious) sedation was administered by the endoscopy nurse and supervised by the endoscopist. The patient's oxygen saturation, heart rate, blood pressure and response to care were monitored. Total physician intraservice time was 15 minutes. Scope In: 8:37:23 AM Scope Out: 8:40:20 AM Total Procedure Duration Time 0 hours 2 minutes 57 seconds Findings: The examined esophagus was normal. Severe portal hypertensive gastropathy was found in the entire examined stomach. The second portion of the duodenum was normal. Impression: - Normal esophagus. - Portal hypertensive gastropathy. - Normal second portion of the duodenum. - No specimens collected. - Acute on chronic blood loss anemia likely secondary to severe portal gastropathy. She would likely need a capsule endoscopy to make sure there is no small bowel varices. Recommendation: - [facility]. - Resume regular diet. - Return to GI clinic. - Continue present medications. Procedure Code(s): --- Professional --- 17859, Esophagogastroduodenoscopy, flexible, transoral; diagnostic, including collection of specimen(s) by brushing or washing, when performed (separate procedure) G0500, Moderate sedation services provided by the same physician or other qualified health manager urgent care performing a gastrointestinal endoscopic service that sedation supports, requiring the presence of an independent trained observer to assist in the monitoring of the patient's level of consciousness and physiological status; initial 15 minutes of intra-service time; patient age 5 years or older (additional time may be reported with 79497, as appropriate) CPT copyright 2017 [employer]. All rights reserved. The codes documented in this report are preliminary and upon electrician powerhouse review may be revised to meet current compliance requirements. Shay Davis DO 03/25/2022 8:56:08 AM This report has been signed electronically. Number of Addenda: 1 Note Initiated On: 03/25/2022 7:52 AM Addendum Number: 1 Addendum Date: 08/17/2022 6:28:47 AM MAC was used as sedation for this procedure. Shay Davis DO 08/17/2022 6:28:51 AM This report has been signed electronically.
--- NOTE | 2022-03-25 08:57 | OP.CCLET_ITS ---
08/17/2022 Janay Canchola [address] [place] [address] Re : Upper GI endoscopy procedure for Angela Sid Dear Dr. Canchola This procedure was performed on Friday, March 25, 2022. My impressions and recommendations are as follows: Impressions : - Normal esophagus. - Portal hypertensive gastropathy. - Normal second portion of the duodenum. - No specimens collected. - Acute on chronic blood loss anemia likely secondary to severe portal gastropathy. She would likely need a capsule endoscopy to make sure there is no small bowel varices. Recommendations : - [facility]. - Resume regular diet. - Return to GI clinic. - Continue present medications. My findings are described in the full procedure note, which is enclosed. If I can be of further assistance, please feel free to contact me at . Sincerely, Shay Davis, 03/25/2022 8:56:08 AM This report has been signed electronically.
[2022-03-25] MEDS: Magnesium Chloride 64 MG Delay Rel.Tablet 128 MG PO (09:59)
[2022-03-25] MEDS: Sertraline 50 MG Tablet PO (09:59)
[2022-03-25] MEDS: Lactulose 20 GM/30 ML UDC PO ×4 (09:59→21:57)
[2022-03-25] MEDS: carBAMazepine 200 MG Tablet 100 MG PO ×2 (10:00→21:59)
[2022-03-25] MEDS: rifAXIMin 550 MG Tablet PO ×2 (10:01→22:00)
[2022-03-25] MEDS: Ursodiol 250 MG Tablet PO ×2 (10:04→22:00)
[2022-03-25] MEDS: Furosemide 40 MG Tablet PO (10:04)
[2022-03-25] MEDS: Carvedilol 3.125 MG TABLET PO ×2 (10:04→22:00)
[2022-03-25] MEDS: Insulin Glargine-YFGN 100 UNIT/ML Pen 10 UNIT SC (10:05)
[2022-03-25] MEDS: Pregabalin 75 MG Capsule PO ×2 (10:10→22:02)
[2022-03-25] MEDS: amLODIPine 10 MG Tablet PO (10:10)
[2022-03-25 11:31] LABS: Bedside Glucose 146 mg/dL (74-106)
[2022-03-25] MEDS: Sucralfate 1 GM Tablet PO ×3 (11:32→22:00)
--- NOTE | 2022-03-25 11:48 | PN.HOSP_ITS ---
Subjective Subjective Do not feelPatient seen and examined. She had no active complaints. Lethargic as yesterday. She had EGD today which showed no evidence of bleeding. Review of systems otherwise negative. Objective Data Objective Data Vital Signs: Vital Signs Temp Pulse Resp BP Pulse Ox 98.2 F 59 L 18 147/63 H 98 03/25/22 09:24 03/25/22 10:00 03/25/22 09:24 03/25/22 09:24 03/25/22 09:24 Oxygen Delivery Method Room Air Weight: 206 lb Body Mass Index (BMI) 30.4 Intake & Output: Intake and Output for Last 24 Hours 03/23/22 03/24/22 03/25/22 23:59 23:59 23:59 Intake Total 200 / 500 3603.5 / 3637.25 143.75 / 143.75 Output Total 200 / 200 Balance 200 / 500 3403.5 / 3437.25 143.75 / 143.75 Lab / Micro Data Result Diagrams: 03/25/22 06:14 03/25/22 06:14 Labs: Laboratory Results - last 24 hr 03/24/22 07:48: Blood Type O POSITIVE, Antibody Screen NEGATIVE, Crossmatch See Detail 03/24/22 15:38: POC Glucose 172 H 03/24/22 21:43: POC Glucose 137 H 03/25/22 06:14: WBC 2.1 L, RBC 2.55 L, Hgb 7.7 L, Hct 23.0 L, MCV 90.2, MCH 30.2, MCHC 33.5, RDW Std Deviation 50.0 H, RDW Coeff of Valentina 15.9 H, Plt Count 42 L*, MPV 11.0, Immature Gran % (Auto) 0.500, Neut % (Auto) 64.2, Lymph % (Auto) 18.6 L, [place] % (Auto) 11.0 H, Eos % (Auto) 4.3, Baso % (Auto) 1.4 H, Absolute Neuts (auto) 1.4 L, Absolute Lymphs (auto) 0.39 L, Nucleated RBC % 0, Diff Path Review May foll, Atypical Lymphocytes 1+, Platelet Estimate MKD DEC, Anisocytosis 1+ 03/25/22 06:14: Sodium 145, Potassium 3.6, Chloride 114 H, Carbon Dioxide 23.0, Anion Gap 8, BUN 37 H, Creatinine 1.84 H, Estim Creat Clear Calc 36.95, Est GFR (MDRD) Af Amer 37 L, Est GFR (MDRD) Non-Af 30 L, BUN/Creatinine Ratio 20.1 H, Glucose 103, Calcium 8.0 L, Total Bilirubin 1.20 H, AST 29, ALT 21, Alkaline Phosphatase 115, Total Protein 5.8 L, Albumin 2.9 L, Globulin 2.9, Albumin/Globulin Ratio 1.0 03/25/22 06:14: APTT 37.5 H 03/25/22 06:14: Phosphorus 3.5, Magnesium 1.9, TSH 8.66 H 03/25/22 06:14: Hemoglobin A1c 5.2 03/25/22 06:14: Free T4 0.98 03/25/22 06:38: POC Glucose 97 03/25/22 11:24: POC Glucose 146 H Micro: Microbiology 03/24/22 14:00 Stool Stool Occult Blood (GAURAV) - Final Physical Exam Const alert, oriented x3 and no apparent distress Constitutional Narrative: more alert today General Appearance: cooperative HEENT normocephalic, head/scalp atraumatic and moist oral mucous membranes Head and Scalp: normocephalic Eyes PERRL, EOMs intact bilaterally and conjunctivae normal Neck no lymphadenopathy, supple and no JVD Resp normal respiratory effort Resp Narrative: diminished breath sounds bibasally, no wheezing. On room air. Cardio regular rate, regular rhythm, S1 normal heart sound, S2 normal heart sound and no murmurs GI GI Narrative: abdomen mildly distended, no tenderness, no guarding or rebound tenderness. positive fluid thrill Extremity normal to inspection Extremity Narrative: bilateral 1+ lower extremity edema Peripheral Pulses: Yes pulses 2+ throughout Skin no rashes or lesions noted Neuro oriented x3, CN's II-XII intact bilaterally and moves all extremities Sensorium / Orientation: awake and alert Psych affect normal Assessment & Plan Assessment/Plan (1) Debility: (2) Weakness: PLAN: #Debility and weakness * PT/OT on board. Fall precautions * awaiting placement * #Acute toxic hepatic encephalopathy * improving. On lactulose 20mls tid. Titrate for 2-3 loose stools daily. * * #Acute on chronic anemia * s/p transfusion of 2 units of PRBCs * GI consulted. She had EGD today which showed normal esophagus and portal hypertensive gastropathy as well as normal second portion of the duodenum * Per GI, will need capsule endoscopy to ensure there are no small bowel varices. * on IV PPI * * #History of autoimmune hepatitis * on lactulose to help prevent encephalopathy * on furosemide and ursodiol as well as xifaxan * #TYpe 2 diabetes mellitus * on lantus 10 units daily * ISS. Accuchecks ACHS * #Pancytopenia * this is chronic, due to autoimmune hepatitis * will monitor. * #Hypothyroidism: on synthroid. TSH was elevated, but free T4 is 0.98. To follow up with PCP on outpatient basis. #Hypertension: on amlodipine and carvedilol #Depression; on sertraline #BIpolar disorder and schizoaffective disorder: on Latuda #GERD;on sucralfate and PPI DVT prophylaxis: SCDs. no anticoagulation o/a of thrombocytopenia COde status: full code * Disposition: awaiting placement Charges/Coding Visit Charges Inpatient E&M: 17264 Subs Hosp L2
[2022-03-25 16:46] LABS: Bedside Glucose 121 mg/dL (74-106)
[2022-03-25] MEDS: LURASIDONE HCL 20 MG TABLET PO (22:00)
[2022-03-25] MEDS: Insulin Lispro 100 UNIT/ML INSULN.PEN SC (22:00)
[2022-03-25 22:10] LABS: Bedside Glucose 152 mg/dL (74-106)
[2022-03-26] VITALS (10 sets, daily range): BP systolic 146–170; BP diastolic 61–80; PULSE 60–70; RESP 16–18; TEMP 36.6–36.8; O2SAT 94–99
[2022-03-26] MEDS: Lactulose 20 GM/30 ML UDC PO ×6 (03:11→21:59)
[2022-03-26 05:49] LABS: Absolute Lymphocyte Count 0.55 X10^3/uL (0.83-4.51); Absolute Neutrophil Count 1.9 X10^3/uL (2.0-7.7); Basophil# 0.04 X10^3/uL; Basophil% 1.4 % (0-1); Eosinophil# 0.09 X10^3/uL; Eosinophils% 3.2 % (0-5); Hematocrit 24.3 % (37-47); Hemoglobin 8.4 g/dL (12.0-15.0); Lymphocyte # 0.55 X10^3/ul (0.83-4.51); Lymphocyte % 19.3 % (19-41); Mean Corp Hgb Conc 34.6 g/dL (32-36); Mean Corpuscular Hgb 31.6 pg (27.0-32.0); Mean Corpuscular Volume 91.4 fL (81-99); Monocyte# 0.31 X10^3/uL; Monocyte% 10.9 % (0-10); NRBC Flagged by Analyzer 0 % (0-5); Neutrophil # 1.85 X10^3/uL (2.7-7.7); Neutrophil % 64.8 % (47-70); POSITIVE COUNT YES; POSITIVE DIFFERENTIAL YES; Platelet Count 50 K/mm3 (150-450); RBC Distribution Width CV 16.2 % (11.6-14.6); RBC Distribution Width SD 52.7 fl (35.1-43.9); Red Blood Count 2.66 M/mm3 (4.2-5.4); White Blood Count 2.9 K/mm3 (4.4-11.0)
[2022-03-26 06:10] LABS: Differential Comment SCANNED
[2022-03-26 06:16] LABS: ALB/GLOB Ratio 0.9 RATIO (0.9-2.4); AST(SGOT) 37 U/L (15-37); Alanine Aminotransfer ALT/SGPT 24 U/L (13-56); Alkaline Phosphatase 165 U/L (45-117); Anion Gap 6 (5-15); BUN 38 mg/dL (7-18); BUN/Creat Ratio 18.4 RATIO (10-20); Calcium,Total 8.4 mg/dL (8.5-10.1); Chloride 116 mmol/L (98-107); Creatinine, Serum 2.06 mg/dL (0.55-1.02); EST Glomerular Filtration Rate 27 mL/min (>60); Est Glom Filt Rate - Afr Amer 32 mL/min (>60); Estimated Creatinine Clearance 33.01 ml/min; Globulin 3.2 g/dL (2.2-4.2); Glucose 161 mg/dL (74-106); Potassium 3.8 mmol/L (3.5-5.1); Protein, Total 6.2 g/dL (6.4-8.2); Sodium Level 144 mmol/L (136-145)
[2022-03-26] MEDS: Insulin Lispro 100 UNIT/ML INSULN.PEN SC ×2 (06:33→16:28)
[2022-03-26] MEDS: Levothyroxine 50 MCG Tablet PO (06:33)
[2022-03-26] MEDS: Sucralfate 1 GM Tablet PO ×4 (06:33→21:57)
[2022-03-26 06:46] LABS: Bedside Glucose 160 mg/dL (74-106)
[2022-03-26] MEDS: Magnesium Chloride 64 MG Delay Rel.Tablet 128 MG PO (08:41)
[2022-03-26] MEDS: amLODIPine 10 MG Tablet PO (08:41)
[2022-03-26] MEDS: Ursodiol 250 MG Tablet PO ×2 (08:42→21:58)
[2022-03-26] MEDS: Carvedilol 3.125 MG TABLET PO ×2 (08:43→21:58)
[2022-03-26] MEDS: carBAMazepine 200 MG Tablet 100 MG PO ×2 (08:43→21:58)
[2022-03-26] MEDS: rifAXIMin 550 MG Tablet PO ×2 (08:43→21:58)
[2022-03-26] MEDS: Insulin Glargine-YFGN 100 UNIT/ML Pen 10 UNIT SC (08:44)
[2022-03-26] MEDS: Sertraline 50 MG Tablet PO (08:44)
[2022-03-26] MEDS: 0.9% Saline Lock 10 ML Syringe IV ×3 (08:47→22:09)
[2022-03-26] MEDS: Pregabalin 75 MG Capsule PO (08:47)
[2022-03-26] MEDS: Ondansetron 4 MG/2 ML Vial IV (11:16)
[2022-03-26 11:30] LABS: Bedside Glucose 143 mg/dL (74-106)
[2022-03-26 13:01] LABS: Pathologist Review Reviewed
[2022-03-26 13:01] LABS: Pathologist Review Reviewed
[2022-03-26 13:01] LABS: Pathologist Review Reviewed
[2022-03-26 13:01] LABS: Pathologist Review Reviewed
--- NOTE | 2022-03-26 13:15 | PN.HOSP_ITS ---
Subjective Subjective Patient reports she is feeling much better overall. No significant issues overnight. Mentation is much clear and patient is having 2-3 bowel movements daily with improved clearance of her ammonia. She is currently awaiting placement prior to discharge. Objective Data Objective Data Vital Signs: Vital Signs Temp Pulse Resp BP Pulse Ox 98.2 F 67 16 170/79 H 96 03/26/22 08:50 03/26/22 09:00 03/26/22 08:50 03/26/22 08:50 03/26/22 08:50 Oxygen Delivery Method Room Air Weight: 93.44 kg Body Mass Index (BMI) 30.4 Intake & Output: Intake and Output for Last 24 Hours 03/24/22 03/25/22 03/26/22 23:59 23:59 23:59 Intake Total 3603.5 / 3637.25 1403.75 / 1703.75 919.5 / 919.5 Output Total 200 / 200 350 / 350 Balance 3403.5 / 3437.25 1053.75 / 1353.75 919.5 / 919.5 Lab / Micro Data Result Diagrams: 03/26/22 05:33 03/26/22 05:33 Labs: Laboratory Results - last 24 hr 03/23/22 13:30: Diff Path Review Reviewed 03/24/22 06:34: Diff Path Review Reviewed 03/25/22 06:14: Diff Path Review Reviewed 03/25/22 16:37: POC Glucose 121 H 03/25/22 21:56: POC Glucose 152 H 03/26/22 05:33: WBC 2.9 L, RBC 2.66 L, Hgb 8.4 L, Hct 24.3 L, MCV 91.4, MCH 31.6, MCHC 34.6, RDW Std Deviation 52.7 H, RDW Coeff of Valentina 16.2 H, Plt Count 50 L*, MPV 13.0 H, Immature Gran % (Auto) 0.400, Neut % (Auto) 64.8, Lymph % (Auto) 19.3, [place] % (Auto) 10.9 H, Eos % (Auto) 3.2, Baso % (Auto) 1.4 H, Absolute Neuts (auto) 1.9 L, Absolute Lymphs (auto) 0.55 L, Nucleated RBC % 0, Differential Comment SCANNED, Diff Path Review Reviewed 03/26/22 05:33: Sodium 144, Potassium 3.8, Chloride 116 H, Carbon Dioxide 22.0, Anion Gap 6, BUN 38 H, Creatinine 2.06 H, Estim Creat Clear Calc 33.01, Est GFR (MDRD) Af Amer 32 L, Est GFR (MDRD) Non-Af 27 L, BUN/Creatinine Ratio 18.4, Glucose 161 H, Calcium 8.4 L, Total Bilirubin 0.90, AST 37, ALT 24, Alkaline Phosphatase 165 H, Total Protein 6.2 L, Albumin 3.0 L, Globulin 3.2, Albumin/Globulin Ratio 0.9 03/26/22 06:32: POC Glucose 160 H 03/26/22 11:26: POC Glucose 143 H Micro: Microbiology 03/24/22 14:00 Stool Stool Occult Blood (GAURAV) - Final Physical Exam Const alert, oriented x3 and no apparent distress Constitutional Narrative: Slightly obese middle-aged white female who appears much older than stated age, sitting up in a chair at the bedside, assistant director of nursing at the bedside, patient watching television Exam Limitations: no limitations Nutritional Appearance: obese HEENT Head and Scalp: normocephalic Resp normal respiratory effort, no retractions, no use of accessory muscles and clear to auscultation bilaterally Resp Narrative: Slightly diminished but clear Auscultation: Negative for crackles, rales, rhonchi or wheezes Cardio regular rate, regular rhythm, S1 normal heart sound, S2 normal heart sound, no murmurs, no rub, no gallops, no clicks and no JVD GI normal to inspection, nondistended, normoactive bowel sounds, soft to palpation, non-tender and non-distended Extremity Extremity Narrative: Trace bilateral lower extremity pitting edema, multiple wounds that appear consistent with taking bilateral lower extremities-no signs of infection, wounds are in very stages healing Peripheral Pulses: Yes pulses 2+ throughout Neuro oriented x3, moves all extremities and no focal motor deficits Sensorium / Orientation: awake and alert Speech: speech normal Psych Psych Narrative: Affect is extremely flat but eye contact is good Mood & Affect: depressed Assessment & Plan Assessment/Plan (1) Hepatic encephalopathy: (2) Toxic metabolic encephalopathy: (3) Pancytopenia: (4) Weakness: (5) Debility: (6) Anemia: (7) Stage 3b chronic kidney disease (CKD): PLAN: Acute toxic/metabolic encephalopathy/hepatic encephalopathy -Markedly improved and mentation appears to be back to normal -Continue lactulose and rifaximin -Goes through 2-3 4 bowel movements daily -6 documented bowel movement yesterday -Ammonia was 90 on admission and improved to 22 on 03/24/2022 Debility/weakness/failure to thrive -Awaiting placement -Precautions -PT and OT following -May need clearance from the state prior to placement, as patient does have psychiatric history Acute on chronic anemia -Patient has received 2 units of packed red blood cells during her hospitalization thus far -No source of bleeding found on EGD done 03/25/2022 -EGD did show a normal esophagus with portal hypertensive gastropathy -We will need outpatient capsule endoscopy to ensure there are no small bowel varices related to her liver disease -We will continue PPI but transition to oral 40 mg p.o. twice daily -Hemoglobin is stable at 8.4 today -Repeat CBC in a.m. History of autoimmune hepatitis -Continue lactulose and rifaximin -Hold Lasix with rising creatinine -Continue ursodiol -Meld score is 24/Holland Stoddard's class C JULIANNE on CKD stage IIIb -Baseline renal function appears to be approximately 1.7-1.9 -Current serum creatinine is 2.06 -We will hold Lasix today -Reevaluate tomorrow -Suspect related to hepatorenal syndrome but patient may have some baseline renal disease related to diabetic nephropathy as well DM-2 -Blood sugars appear stable on current insulin dosing -Continue -Controlled diet -Continue Accu-Cheks Chronic pancytopenia -Counts appear to be stable -Related to cirrhosis with splenomegaly and bone marrow suppression -Monitor CBC Hypothyroidism -Patient with elevated TSH but free T4 in normal range -Suspect euthyroid sick -Encourage outpatient follow-up Diabetic neuropathy -We will decrease Lyrica dose to 25 mg p.o. twice daily from 75 mg p.o. twice daily secondary to renal dysfunction and depressed creatinine clearance Hypertension -Blood pressures currently well controlled -Continue home carvedilol -Continue home amlodipine -Hold home Lasix for now Bipolar disorder/schizoaffective disorder -Continue Latuda -Increased dose to home dose as we now have the tablets available GERD -Continue Carafate -Switch IV PPI to Protonix p.o. daily DVT prophylaxis -Continue SCDs -Hold subcu anticoagulation with her current thrombocytopenia and platelet count just being 50,000 CODE STATUS -Full code Disposition: -Patient is overall medically stable for discharge when approval obtained Charges/Coding Visit Charges Inpatient E&M: 17761 Subs Hosp L2
--- NOTE | 2022-03-26 13:39 | CASEMGMT ---
Social Work SW received call from Diana at [facility] who states when therapist went for visit on 03/23/22, pt was found to be unsafe at home. She did not have adequate help in the home and the home conditions were poor. [facility] is unable to accept pt back and is recommending SNF placement. SW met with pt and she is agreeable to SNF placement at [facility]. Phone call to Clementine at [facility] and they are able to accept pt if pt is agreeable to bring in home Latuda and Xifaxin. SW spoke with pt regarding this and she is agreeable to this. SW spoke to pt significant other Sj Tyler and he is agreeable to bring meds to SNF. SW spoke to pt regarding mental health. Pt stating she has had psychiatric hospitalizations, but does not remember when. SW spoke with pt psychiatrist Dr. David García ([phone]), pt psychologist Dr. Juan Moreno ([phone]) and pt nurse of PCP Dr. Canchola. All three physicians deny pt having psychiatric hospitalization, emergency mental health services, or partial hospitalization in the last two years. SW spoke with [facility] and pt is not connected with any services including case management. Pt does have Waiver services through [facility] and Josefa Bates is her Power Plant Electrician ([phone]). Pt receives 14 [employer] per week. No other services. Pt will discharge to [facility] for short term rehab prior to discharge home. SW requested precert be started. Plan: [facility], pending precert RUY Chappell
[2022-03-26 16:35] LABS: Bedside Glucose 191 mg/dL (74-106)
[2022-03-26] MEDS: Pregabalin 25 MG Capsule PO (21:57)
[2022-03-26] MEDS: LURASIDONE HCL 40 MG TABLET PO (21:58)
[2022-03-26 23:01] LABS: Bedside Glucose 141 mg/dL (74-106)
[2022-03-27] VITALS (7 sets, daily range): BP systolic 141–156; BP diastolic 63–76; PULSE 64–68; RESP 16–20; TEMP 36.4–36.6; O2SAT 94–98
[2022-03-27] MEDS: Lactulose 20 GM/30 ML UDC PO ×4 (01:59→14:05)
[2022-03-27 06:23] LABS: Absolute Lymphocyte Count 0.47 X10^3/uL (0.83-4.51); Absolute Neutrophil Count 1.7 X10^3/uL (2.0-7.7); Basophil# 0.03 X10^3/uL; Basophil% 1.1 % (0-1); Eosinophil# 0.11 X10^3/uL; Eosinophils% 4.1 % (0-5); Hematocrit 23.3 % (37-47); Hemoglobin 7.8 g/dL (12.0-15.0); Lymphocyte # 0.47 X10^3/ul (0.83-4.51); Lymphocyte % 17.5 % (19-41); Mean Corp Hgb Conc 33.5 g/dL (32-36); Mean Corpuscular Hgb 30.7 pg (27.0-32.0); Mean Corpuscular Volume 91.7 fL (81-99); Mean Platelet Vol. 11.3 fl (6.2-12.0); Monocyte# 0.33 X10^3/uL; Monocyte% 12.3 % (0-10); NRBC Flagged by Analyzer 0 % (0-5); Neutrophil # 1.74 X10^3/uL (2.7-7.7); POSITIVE COUNT YES; POSITIVE DIFFERENTIAL YES; RBC Distribution Width CV 15.8 % (11.6-14.6); RBC Distribution Width SD 51.7 fl (35.1-43.9); Red Blood Count 2.54 M/mm3 (4.2-5.4); White Blood Count 2.7 K/mm3 (4.4-11.0)
[2022-03-27 06:25] LABS: Differential Indicated SCAN CRITERIA MET; Platelet Count 50 K/mm3 (150-450)
[2022-03-27] MEDS: Levothyroxine 50 MCG Tablet PO (06:42)
[2022-03-27] MEDS: Sucralfate 1 GM Tablet PO ×2 (06:42→11:20)
[2022-03-27 06:43] LABS: Differential Comment SCANNED; Platelet Estimate MKD DEC (ADEQ)
[2022-03-27 06:53] LABS: Anion Gap 9 (5-15); BUN 38 mg/dL (7-18); BUN/Creat Ratio 19.5 RATIO (10-20); Calcium,Total 8.1 mg/dL (8.5-10.1); Chloride 113 mmol/L (98-107); Creatinine, Serum 1.95 mg/dL (0.55-1.02); EST Glomerular Filtration Rate 29 mL/min (>60); Est Glom Filt Rate - Afr Amer 35 mL/min (>60); Estimated Creatinine Clearance 34.87 ml/min; Glucose 120 mg/dL (74-106); Potassium 3.9 mmol/L (3.5-5.1); Sodium Level 144 mmol/L (136-145)
[2022-03-27 07:10] LABS: Bedside Glucose 122 mg/dL (74-106)
[2022-03-27] MEDS: hydrALAZINE 25 MG Tablet PO (10:10)
[2022-03-27] MEDS: Carvedilol 3.125 MG TABLET PO (10:11)
[2022-03-27] MEDS: Insulin Glargine-YFGN 100 UNIT/ML Pen 10 UNIT SC (10:11)
[2022-03-27] MEDS: Magnesium Chloride 64 MG Delay Rel.Tablet 128 MG PO (10:11)
[2022-03-27] MEDS: carBAMazepine 200 MG Tablet 100 MG PO (10:12)
[2022-03-27] MEDS: amLODIPine 10 MG Tablet PO (10:12)
[2022-03-27] MEDS: Pantoprazole Sodium 40 MG Tablet PO (10:12)
[2022-03-27] MEDS: Ursodiol 250 MG Tablet PO (10:12)
[2022-03-27] MEDS: Sertraline 50 MG Tablet PO (10:13)
[2022-03-27] MEDS: rifAXIMin 550 MG Tablet PO (10:13)
[2022-03-27] MEDS: Pregabalin 25 MG Capsule PO (10:17)
[2022-03-27] MEDS: Insulin Lispro 100 UNIT/ML INSULN.PEN SC (11:20)
[2022-03-27 11:33] LABS: Pathologist Review Reviewed
[2022-03-27 12:01] LABS: Bedside Glucose 311 mg/dL (74-106)
--- NOTE | 2022-03-27 12:53 | DS.PCM_ITS ---
Providers Date of Admission: 03/23/22 Date of Discharge: 03/27/22 Primary Care Physician: Dr. Janay Canchola MD Consultations 03/24/22 09:20 Consult: Gastroenterology Routine Consulting Provider: [facility] Reason for Consult: acute on chronic anemia, history of esophageal varices EMERGENT Consult: No MD Notified: Yes Date Notified: 03/24/22 Time Notified: 09:21 Method of Notification: Text Reason For Visit: FAILURE TO TRHIVE Diagnosis Discharge Diagnosis (1) Hepatic encephalopathy: Status: Acute Code(s): K72.90 - Hepatic failure, unspecified without coma (2) Toxic metabolic encephalopathy: Status: Acute Code(s): G92.8 - Other toxic encephalopathy (3) Pancytopenia: Status: Acute Code(s): D61.818 - Other pancytopenia (4) Weakness: Status: Acute Code(s): R53.1 - Weakness (5) Debility: Status: Acute Code(s): R53.81 - Other malaise (6) Anemia: Status: Acute Code(s): D64.9 - Anemia, unspecified (7) Stage 3b chronic kidney disease (CKD): Status: Acute Code(s): N18.32 - Chronic kidney disease, stage 3b Medications at Discharge Home Medications magnesium oxide 400 mg PO BID 03/14/17 Xifaxan 550 mg PO BID 11/04/17 Latuda 40 mg PO QHS 03/20/21 pantoprazole 40 mg PO DAILY 03/20/21 sertraline 50 mg PO DAILY 03/20/21 sucralfate [Carafate] 1 g PO ACHS 03/20/21 ursodiol 300 mg capsule 300 mg PO BID 04/25/21 carbamazepine 100 mg PO BID 04/29/21 zinc 50 mg PO DAILY 09/18/21 insulin lispro [Humalog KwikPen Insulin] 10 unit SUBCUT TID #0 ml 09/19/21 amlodipine 10 mg tablet 10 mg PO DAILY #30 tab 10/26/21 insulin degludec 100 unit/mL (3 mL) subcutaneous pen 10 unit SUBCUT DAILY 10/26/21 carvedilol 3.125 mg PO BID 03/23/22 levothyroxine 50 mcg PO DAILY 03/23/22 furosemide [Lasix] 20 mg PO DAILY #30 tab 03/27/22 hydralazine 25 mg PO BID #0 tab 03/27/22 lactulose 20 g PO 4X/DAY #1200 ml 03/27/22 Hospital Course Operations None Procedures EGD Summary of Care Provided Minutes Spent on Discharge: 41 Hospital Course: Ms. Lau is a 51-year-old white female who presented to emergency department [facility] on 03/23/2022 with a chief complaint of weakness. The patient evidently had a recent hospitalization at [facility] for toxic/metabolic encephalopathy related to her liver failure with hyperammonemia. It was recommended at that time she be discharged to [facility] facility however she refused. She was discharged home 1 day prior to presentation and admission and represented secondary to a fall she had at home. She discovered she was too weak to care for herself and could not even get up on her own. Upon presentation she denied any pain, fever, chills, nausea, vomiting, or diarrhea. In the emergency department she was afebrile however noted to have an elevated blood pressure 177/75 with a heart rate of 63 and respirations of 14 with an oxygen saturation of 100% on room air. Her CBC showed her baseline abnormalities of pancytopenia with a white count of 2.9, hemoglobin of 7.9, and platelet count of 63,000. Her serum creatinine was elevated but close to baseline at 1.85. Liver functions were normal however her ammonia was markedly elevated at 90 and her CPK was 200. Her chest x-ray showed possible infiltrate of the left lower lobe with prominence of the hilum however she clinically did not present with pneumonia. She was admitted for debility and weakness and skil led facility placement to which now she was amenable. She had a drop in her hemoglobin to 6.6 on the a.m. of 03/24/2022 and gastroenterology was consulted. Given her history of chronic liver disease secondary to autoimmune hepatitis with cirrhosis there was concern that she could possibly have portal gastropathy or esophageal varices and an EGD was performed on 03/25/2022. Her EGD showed a normal esophagus with portal hypertensive gastropathy and a normal second portion of the duodenum. It was recommended she have an outpatient capsule endoscopy at some point in the future when she is more medically stable able to present as an outpatient. Her mentation overall improved during her hospitali zation and her ammonia level normalized with the addition of lactulose to her rifaximin. Her serum creatinine karely slightly and therefore her Lasix was held and her dose was reduced. She was seen by physical and Occupational Therapy during her hospitalization who also recommended continued skilled facility and she was agreeable to placement at [facility] upon discharge. Pre-CERT was initiated and we received approval for discharge on 03/27/2022. She remained medically stable at this time and therefore discharge was pursued. New medications initiated on discharge included her Lasix decreased from 40 mg to 20 mg daily, hydralazine 25 mg p.o. twice daily, and lactulose 20 mg 4 times daily with goal stool output of 3-4 bowel movements daily. It is recommended she follow-up with her primary care physician and Dr. Davis from gastroenterology within the next month after she is more stable physically. I recommend a repeat CBC and BMP be done on 03/30/2022 for reevaluation of her blood counts and serum creatinine. Discharge diagnoses: Acute toxic encephalopathy secondary to liver failure/hepatic encephalopathy Debility/weakness Failure to thrive Acute on chronic anemia History of autoimmune hepatitis with cirrhosis JULIANNE-resolving on discharge CKD stage IIIb DM-2 Diabetic neuropathy Chronic pancytopenia secondary to cirrhosis with splenomegaly and bone marrow suppression Hypothyroidism Hypertension Bipolar disorder Schizoaffective disorder GERD Physical Exam Const alert, oriented x3 and no apparent distress Constitutional Narrative: Slightly obese middle-aged white female who appears much older than stated age, sitting up in bed watching television eating breakfast General Appearance: cooperative, comfortable, well developed and appears older than stated age Orientation / Consciousness: lethargic Exam Limitations: no limitations Nutritional Appearance: obese HEENT normocephalic, head/scalp atraumatic, hearing grossly normal bilaterally and moist oral mucous membranes HEENT Narrative: Mallampati 2, no thrush Eyes PERRL, EOMs intact bilaterally and conjunctivae normal Eyes Narrative: No scleral icterus Neck no lymphadenopathy, supple and no JVD Resp normal respiratory effort, no retractions, no use of accessory muscles and clear to auscultation bilaterally Resp Narrative: Slightly diminished but clear Auscultation: Negative for crackles, rales, rhonchi or wheezes Cardio regular rate, regular rhythm, S1 normal heart sound, S2 normal heart sound, no murmurs, no rub, no gallops, no clicks and no JVD GI normal to inspection, nondistended, normoactive bowel sounds, soft to palpation, non-tender and non-distended GI Narrative: abdomen mildly distended, no tenderness, no guarding or rebound tenderness. positive fluid thrill Extremity normal to inspection Extremity Narrative: Trace bilateral lower extremity pitting edema, multiple wounds that appear consistent with taking bilateral lower extremities-no signs of infection, wounds are in very stages healing Skin no rashes or lesions noted, skin turgor normal and no jaundice Skin Narrative: Wounds as above Neuro oriented x3, CN's II-XII intact bilaterally, moves all extremities and no focal motor deficits Neuro Narrative: No asterixis, marked generalized weakness, bilateral extremity neuropathy with decreased sensation Sensorium / Orientation: awake and alert Speech: speech normal Psych affect normal Psych Narrative: Affect is extremely flat but eye contact is good Mood & Affect: depressed Weight / BMI Weight Weight: 93.44 kg Body Mass Index (BMI) 30.4 ABG / Lab / Microbiology Data Result Diagrams: 03/27/22 06:15 03/27/22 06:15 Laboratory: Laboratory Results - last 24 hr 03/23/22 13:30: Diff Path Review Reviewed 03/24/22 06:34: Diff Path Review Reviewed 03/25/22 06:14: Diff Path Review Reviewed 03/26/22 05:33: Diff Path Review Reviewed 03/26/22 16:27: POC Glucose 191 H 03/26/22 22:02: POC Glucose 141 H 03/27/22 06:15: WBC 2.7 L, RBC 2.54 L, Hgb 7.8 L, Hct 23.3 L, MCV 91.7, MCH 30.7, MCHC 33.5, RDW Std Deviation 51.7 H, RDW Coeff of Valentina 15.8 H, Plt Count 50 L*, MPV 11.3, Immature Gran % (Auto) 0.000, Neut % (Auto) 65.0, Lymph % (Auto) 17.5 L, [place] % (Auto) 12.3 H, Eos % (Auto) 4.1, Baso % (Auto) 1.1 H, Absolute Neuts (auto) 1.7 L, Absolute Lymphs (auto) 0.47 L, Nucleated RBC % 0, Differential Comment SCANNED, Diff Path Review Reviewed, Platelet Estimate MKD 03/27/22 06:15: Sodium 144, Potassium 3.9, Chloride 113 H, Carbon Dioxide 22.0, Anion Gap 9, BUN 38 H, Creatinine 1.95 H, Estim Creat Clear Calc 34.87, Est GFR (MDRD) Af Amer 35 L, Est GFR (MDRD) Non-Af 29 L, BUN/Creatinine Ratio 19.5, Glucose 120 H, Calcium 8.1 L 03/27/22 06:48: POC Glucose 122 H 03/27/22 11:19: POC Glucose 311 H Microbiology: Microbiology 03/24/22 14:00 Stool Stool Occult Blood (GAURAV) - Final D/C Instructions Discharge Diet: 1800 Calorie Control Diet, 8 Cup Fluid Restriction and 2000 mg Sodium Diet Discharge Activity: Return to Normal Activity Meaningful Use Info Meaningful Use Diagnoses (Choose all that apply): None applicable Discharge Plan Admission Admit Date/Time: 03/23/22 16:05 Primary Reason for Your Visit: Debility/hepatic encephalopathy Attending Provider: Rachel Nelson Primary Care Provider: Janay Canchola Consulting Providers: Maribel Barrera Discharge Orders/Prescriptions Prescriptions: New hydralazine 25 mg Tablet 25 mg PO BID Qty: 0 RF: 0 lactulose 20 gram/30 mL Solution 20 g PO 4X/DAY Qty: 1200 RF: 0 furosemide [Lasix] 20 mg tablet 20 mg PO DAILY Qty: 30 RF: 0 Continued Tresiba FlexTouch U-100 100 unit/mL (3 mL) insulin pen 10 unit subcut DAILY RF: 0 amlodipine 10 mg tablet 10 mg PO DAILY Qty: 30 RF: 11 magnesium oxide 400 MG tablet 400 mg PO BID RF: 0 Xifaxan 550 MG tablet 550 mg PO BID RF: 0 sucralfate [Carafate] 1 gram Tablet 1 g PO ACHS RF: 0 pantoprazole 40 mg Tablet,Delayed Release (Dr/Ec) 40 mg PO DAILY RF: 0 sertraline 50 mg Tablet 50 mg PO DAILY RF: 0 Latuda 40 mg tablet 40 mg PO QHS RF: 0 ursodiol 300 mg capsule 300 mg PO BID RF: 0 carbamazepine 100 mg Tablet Extended Release 12 Hr 100 mg PO BID RF: 0 zinc 50 mg Tablet 50 mg PO DAILY RF: 0 insulin lispro [Humalog KwikPen Insulin] 100 unit/mL insulin pen 10 unit SUBCUT TID Qty: 0 RF: 0 carvedilol 3.125 mg tablet 3.125 mg PO BID RF: 0 levothyroxine 50 mcg tablet 50 mcg PO DAILY RF: 0 Discontinued pregabalin 75 mg capsule 75 mg PO BID RF: 0 furosemide 40 mg tablet 40 mg PO DAILY RF: 0 Referrals / Follow Up: Janay Canchola MD [Primary Care Provider] - Within 1 Month Shay Davis DO [STAFF PHYSICIAN] - Within 1 Month Disposition Disposition (needs filled in before D/C Order can be placed): [facility] Charges/Coding Visit Charges Inpatient E&M: 24705 SNF Disch >30 Min
--- NOTE | 2022-03-27 13:16 | TREXTCAR_ITS ---
Diet 03/25/22 08:57 Diet: Renal - General Is pt able to select menu?: Yes Diet Comments: except medications Routine Orders/Code Status O2 Frequency: PRN Keep PO Greater than or Equal to (%): 92 Routine Lab Work: CBC (03/30/2022) and BMP (03/30/2022) Code Status: Full Code Wound(s) mons pubis: Wound Type: blisters Therapies Weight Bearing: Full weight bearing Physical Therapy: Eval and Treat Occupational Therapy: Eval and Treat Problem/Diagnosis (1) Hepatic encephalopathy: Status: Acute (2) Toxic metabolic encephalopathy: Status: Acute (3) Pancytopenia: Status: Acute (4) Weakness: Status: Acute (5) Debility: Status: Acute (6) Anemia: Status: Acute (7) Stage 3b chronic kidney disease (CKD): Status: Acute Allergies/Procedures Done in Hospital Allergies adhesive Allergy (Verified 03/23/22 12:03) Rash escitalopram oxalate [From Lexapro] Allergy (Verified 03/23/22 12:03) blindness gabapentin [From Neurontin] Allergy (Verified 03/23/22 12:03) Alan Jez's Syndrome lamotrigine [From Lamictal] Allergy (Verified 03/23/22 12:03) Blindness Preservatives Allergy (Uncoded 03/23/22 12:03) passed out, lungs deflated Preservatives in various foods including packaged gladys cheese, lettuce, and seafood. sour cream Allergy (Uncoded 03/23/22 12:03) Anaphylaxis Procedures: Blood transfusion and EGD Type of Care/Length of Stay Estimated LOS: Convalescent Care Less Than 30 days Type of Care Needed: Skilled Rehab Potential: Good Prognosis: Fair Additional Orders/Day of Discharge Day of Discharge: 03/27/22 Discharge Plan Admission Admit Date/Time: 03/23/22 16:05 Primary Reason for Your Visit: Debility/hepatic encephalopathy Attending Provider: Rachel Nelson Primary Care Provider: Janay Canchola Consulting Providers: Maribel Barrera Discharge Orders/Prescriptions Prescriptions: New hydralazine 25 mg Tablet 25 mg PO BID Qty: 0 RF: 0 lactulose 20 gram/30 mL Solution 20 g PO 4X/DAY Qty: 1200 RF: 0 furosemide [Lasix] 20 mg tablet 20 mg PO DAILY Qty: 30 RF: 0 Continued Tresiba FlexTouch U-100 100 unit/mL (3 mL) insulin pen 10 unit subcut DAILY RF: 0 amlodipine 10 mg tablet 10 mg PO DAILY Qty: 30 RF: 11 magnesium oxide 400 MG tablet 400 mg PO BID RF: 0 Xifaxan 550 MG tablet 550 mg PO BID RF: 0 sucralfate [Carafate] 1 gram Tablet 1 g PO ACHS RF: 0 pantoprazole 40 mg Tablet,Delayed Release (Dr/Ec) 40 mg PO DAILY RF: 0 sertraline 50 mg Tablet 50 mg PO DAILY RF: 0 Latuda 40 mg tablet 40 mg PO QHS RF: 0 ursodiol 300 mg capsule 300 mg PO BID RF: 0 carbamazepine 100 mg Tablet Extended Release 12 Hr 100 mg PO BID RF: 0 zinc 50 mg Tablet 50 mg PO DAILY RF: 0 insulin lispro [Humalog KwikPen Insulin] 100 unit/mL insulin pen 10 unit SUBCUT TID Qty: 0 RF: 0 carvedilol 3.125 mg tablet 3.125 mg PO BID RF: 0 levothyroxine 50 mcg tablet 50 mcg PO DAILY RF: 0 Discontinued pregabalin 75 mg capsule 75 mg PO BID RF: 0 furosemide 40 mg tablet 40 mg PO DAILY RF: 0 Referrals / Follow Up: Janay Canchola MD [Primary Care Provider] - Within 1 Month Shay Davis DO [STAFF PHYSICIAN] - Within 1 Month Disposition Disposition (needs filled in before D/C Order can be placed): [facility]
--- NOTE | 2022-03-27 14:11 | CASEMGMT ---
Addendum entered by Tete John 03/27/22 14:25: Social Work With pt permission, phone call to significant other Sj and updated that pt would discharge to [facility] today. reminded Sj to take Xifaxin and Latuda to [facility] today per SNF request. Sj agreeable. RUY Chappell Original Note: Social Work Phone call from [facility] and precert has been obtained. Physician notified and pt is ready for discharge. PASSRR completed in [facility] and Orders faxed to [facility]. Transportation arranged with [facility] for 3:00 central supply manager via Wheelchair van. Pt notified and is agreeable to discharge plan. Marisa at [facility] updated on discharge time. Nursing made aware. RUY Chappell
--- NOTE | 2022-03-27 14:58 | NURSING ---
report called to swcc to mariza with no questions voiced.
== END 2022-03-27 14:50 | disposition skilled nursing facility (03) ==
LOC: ED 15:51 → MS3 03-24 12:35
PROVIDERS: Anesthesiology; Internal Medicine Gastroenterology; Admitting Provider Student in an Organized Health Care Education/Training Program; Emergency Provider Student in an Organized Health Care Education/Training Program; PCP Internal Medicine; Visit Provider Internal Medicine
PROC: 0DJ08ZZ Inspection of Upper Intestinal Tract, Via Natural or Artificial Opening Endoscopic (ICD-10-PCS; CPT 43235; principal; 2022-03-25 08:00)
DX: K72.90 Hepatic failure, unspecified without coma (principal); K76.6 Portal hypertension; D61.818 Other pancytopenia; F25.9 Schizoaffective disorder, unspecified; N17.9 Acute kidney failure, unspecified; K74.60 Unspecified cirrhosis of liver; F31.9 Bipolar disorder, unspecified; E11.42 Type 2 diabetes mellitus with diabetic polyneuropathy; E11.22 Type 2 diabetes mellitus with diabetic chronic kidney disease; Z79.4 Long term (current) use of insulin; N18.32 Chronic kidney disease, stage 3b; E03.9 Hypothyroidism, unspecified; D62 Acute posthemorrhagic anemia; R53.81 Other malaise; R62.7 Adult failure to thrive; M62.82 Rhabdomyolysis; K21.9 Gastro-esophageal reflux disease without esophagitis; I12.9 Hypertensive chronic kidney disease with stage 1 through stage 4 chronic kidney disease, or unspecified chronic kidney disease; G92.8 Other toxic encephalopathy; G89.29 Other chronic pain; K31.89 Other diseases of stomach and duodenum; E86.0 Dehydration; R16.1 Splenomegaly, not elsewhere classified; Z79.899 Other long term (current) drug therapy; Z79.890 Hormone replacement therapy; E06.3 Autoimmune thyroiditis
CPT/HCPCS: 43235; 36415; 36430; 71045; 80048; 80053; 80076; 81001; 82140; 82274; 82550; 82962; 83036; 83735; 84100; 84439; 84443; 84484; 85025; 85610; 85730; 86850; 86900; 86901; 86920; 86922; 87426; 93005; 96361; 96365; 96366; 96367; 96375; 96376; 97110; 97116; 97162; 97165; 97530; 97535; 99218; 99251; 99285; J7030; J7050; P9016; P9047; A4216; G0378; G0463; J2405; J3490

== ENCOUNTER → 2022-03-29 | Outpatient (REF) | payer SELFPAY ==
[2022-03-29 08:41] LABS: Absolute Lymphocyte Count 0.42 X10^3/uL (0.83-4.51); Absolute Neutrophil Count 1.3 X10^3/uL (2.0-7.7); Basophil# 0.04 X10^3/uL; Basophil% 1.9 % (0-1); Eosinophil# 0.09 X10^3/uL; Eosinophils% 4.3 % (0-5); Hematocrit 22.6 % (37-47); Hemoglobin 7.5 g/dL (12.0-15.0); Lymphocyte # 0.42 X10^3/ul (0.83-4.51); Lymphocyte % 19.9 % (19-41); Mean Corp Hgb Conc 33.2 g/dL (32-36); Mean Corpuscular Hgb 30.1 pg (27.0-32.0); Mean Corpuscular Volume 90.8 fL (81-99); Monocyte# 0.24 X10^3/uL; Monocyte% 11.4 % (0-10); NRBC Flagged by Analyzer 0 % (0-5); Neutrophil # 1.32 X10^3/uL (2.7-7.7); Neutrophil % 62.5 % (47-70); POSITIVE COUNT YES; POSITIVE DIFFERENTIAL YES; Platelet Count 43 K/mm3 (150-450); RBC Distribution Width CV 15.8 % (11.6-14.6); RBC Distribution Width SD 50.5 fl (35.1-43.9); Red Blood Count 2.49 M/mm3 (4.2-5.4); White Blood Count 2.1 K/mm3 (4.4-11.0)
[2022-03-29 08:45] LABS: Differential Indicated SCAN CRITERIA MET
[2022-03-29 09:00] LABS: Anion Gap 5 (5-15); BUN 43 mg/dL (7-18); BUN/Creat Ratio 20.9 RATIO (10-20); Calcium,Total 8.4 mg/dL (8.5-10.1); Chloride 111 mmol/L (98-107); Creatinine, Serum 2.06 mg/dL (0.55-1.02); EST Glomerular Filtration Rate 27 mL/min (>60); Est Glom Filt Rate - Afr Amer 32 mL/min (>60); Glucose 123 mg/dL (74-106); Potassium 4.1 mmol/L (3.5-5.1); Sodium Level 140 mmol/L (136-145); Thyroid Stim Hormone (TSH) 4.83 uIU/mL (0.358-3.74)
[2022-03-29 09:11] LABS: Anisocytosis 2+
[2022-03-29 09:13] LABS: Carbamazepine (Tegretol) 5.7 ug/mL (4.0-12.0)
[2022-03-29 09:15] LABS: Hemoglobin A1c 5.4 % (3.8-5.6)
[2022-03-30 13:23] LABS: Pathologist Review Reviewed
== END | disposition home or self-care (01) ==
LOC: OLS.SW300 06:00
PROVIDERS: PCP Internal Medicine; Visit Provider Internal Medicine
DX: I12.9 Hypertensive chronic kidney disease with stage 1 through stage 4 chronic kidney disease, or unspecified chronic kidney disease (principal); E11.22 Type 2 diabetes mellitus with diabetic chronic kidney disease; D64.9 Anemia, unspecified; N18.9 Chronic kidney disease, unspecified
CPT/HCPCS: 36415; 80048; 80156; 83036; 84443; 85025

== ENCOUNTER 2022-04-01 13:33 | Emergency (ER) | payer MEDICARE, MEDICAID, SELFPAY ==
[2022-04-01 13:34] VITALS: BP 185/82; PULSE 75; RESP 18; TEMP 36.5; O2SAT 97; BMI 32.9
--- NOTE | 2022-04-01 13:42 | EKG12_ITS ---
Test Reason : LETHARGY Blood Pressure : / mmHG Vent. Rate : 075 BPM Atrial Rate : 075 BPM P-R Int : 188 ms QRS Dur : 116 ms QT Int : 416 ms P-R-T Axes : 045 -60 075 degrees QTc Int : 464 ms Normal sinus rhythm Left axis deviation Anterior infarct , age undetermined Abnormal ECG Confirmed by DEDE ZAMBRANO, ROSA ([id number]), editorial clerk NORA MENDES ([id number]) on 04/02/2022 1:59:10 PM Referred By: JANAE Confirmed By:ROSA AGUAYO MD
--- NOTE | 2022-04-01 13:43 | RAD_ITS ---
STUDY: X-RAY CHEST REASON FOR EXAM: Female, 51 years old. Shortness of breath TECHNIQUE: Single AP portable view of the chest. COMPARISON: 03/23/2022 FINDINGS: Poor inspiration with some bibasilar atelectasis. Elevated right hemidiaphragm which is unchanged. There is moderate cardiac enlargement. Normal mediastinum and snony. Normal visualized pulmonary arteries. Normal visualized aortic arch and descending thoracic aorta. Normal visualized thoracic spine. Normal visualized ribs, clavicles, and shoulders. There is no demonstrated abnormality of the visualized soft tissue structures of the upper abdomen. RAD/Chest 1 View IMPRESSION: Poor inspiration with some bibasilar atelectasis. Electronically Signed: Vishal Shrestha MD at 14:33 EDT ,
--- NOTE | 2022-04-01 13:44 | EDS_ITS ---
HPI History of Present Illness Chief Complaint: Fatigue Narrative Narrative: Patient from nursing center, history of hepatic encephalopathy stage III kidney disease toxic metabolic encephalopathy anemia chronic pain [facility], she basically indicates she feels fine but nursing has note today she would not eat her own lunch tray food they had to spoon feed her she ate she seemed to be tired and they sent her to the emergency department. The patient denies head neck chest or abdominal pain she is awake and alert she knows where she is she is moving all 4 extremities does admit to being tired but has no specific complaint indicates she is taking all of her medications inc luding all of her pills and lactulose [facility] Medical History (Updated 04/01/22 @ 15:[address] Mary Hobson MD) Acute on chronic renal insufficiency Anemia Autoimmune hepatitis Bacteremia due to methicillin resistant Staphylococcus epidermidis Bipolar disorder CHI (closed head injury) Chronic pain Cirrhosis of liver Depression Diabetes mellitus Diabetes mellitus, type 2 Encephalopathy acute Reilly's thyroiditis Hepatic encephalopathy Hepatitis History of hypothyroidism Hypertension Kidney disease MRSA bacteremia Pancreatitis Pancytopenia Pancytopenia Peripheral neuropathy Schizoaffective disorder Severe sepsis Splenomegaly Home Medications magnesium oxide 400 mg PO BID 03/14/17 [History Last Taken 03/22/22] Xifaxan 550 mg PO BID 11/04/17 [History Last Taken 03/22/22] Latuda 40 mg PO QHS 03/20/21 [History Last Taken 03/22/22] pantoprazole 40 mg PO DAILY 03/20/21 [History Last Taken 03/22/22] sertraline 50 mg PO DAILY 03/20/21 [History Last Taken 03/22/22] sucralfate [Carafate] 1 g PO ACHS 03/20/21 [History Last Taken 03/22/22] ursodiol 300 mg capsule 300 mg PO BID 04/25/21 [History Last Taken 03/22/22] carbamazepine 100 mg PO BID 04/29/21 [History Last Taken 03/22/22] zinc 50 mg PO DAILY 09/18/21 [History Last Taken 03/22/22] insulin lispro [Humalog KwikPen Insulin] 10 unit SUBCUT TID #0 ml 09/19/21 [Rx Last Taken 03/22/22] amlodipine 10 mg tablet 10 mg PO DAILY #30 tab 12/09/21 [Rx Last Taken 03/22/22] insulin degludec 100 unit/mL (3 mL) subcutaneous pen 10 unit SUBCUT DAILY 10/26/21 [History Last Taken 03/22/22] carvedilol 3.125 mg PO BID 03/23/22 [History Last Taken 03/22/22] levothyroxine 50 mcg PO DAILY 03/23/22 [History Last Taken 03/22/22] furosemide [Lasix] 20 mg PO DAILY #30 tab 03/27/22 [Rx Last Taken Unknown] hydralazine 25 mg PO BID #0 tab 03/27/22 [Rx Last Taken Unknown] lactulose 20 g PO 4X/DAY #1200 ml 03/27/22 [Rx Last Taken Unknown] Allergy/AdvReac Type Severity Reaction Status Date / Time adhesive Allergy Rash Verified 03/23/22 12:03 escitalopram oxalate Allergy blindness Verified 03/23/22 12:03 [From Lexapro] gabapentin [From Neurontin] Allergy Alan Verified 03/23/22 12:03 Jez's Syndrome lamotrigine [From Lamictal] Allergy Blindness Verified 03/23/22 12:03 Preservatives Allergy passed Uncoded 03/23/22 12:03 out, lungs deflated sour cream Allergy Anaphylaxis Uncoded 03/23/22 12:03 Family History Father CVA (cerebral vascular accident) Myocardial infarction Heart disease CAD (coronary artery disease) Grandmother CHF (congestive heart failure) Sister Hypertension Mother Heart disease Surgical History H/O: hysterectomy History of abdominal paracentesis (10/2019) History of appendectomy History of cholecystectomy S/P TIPS (transjugular intrahepatic portosystemic shunt) Social History household members: significant other housing: house Smoking Status: Never smoker alcohol intake: never details: Unknown substance use type: does not use ROS ROS ED ROS Narrative Other than fatigue the patient has no complaints Constitutional Constitutional ED: Reports subjective, sweats and other; Denies chills, fever(s) or weight loss Eyes Eyes: Denies blurry vision or change in vision ENT ENT ED: Denies ear pain Cardiovascular Cardiovascular: Denies chest pain or palpitations Respiratory/Chest Respiratory/Chest: Denies dyspnea Gastrointestinal Gastrointestinal: Denies abdominal pain, nausea or vomiting Genitourinary Genitourinary ED: Denies dysuria or hematuria Musculoskeletal Musculoskeletal: Denies arthralgias or myalgias Integumentary Reports rash; Denies abscess Neurologic Neurologic: Denies weakness Psychiatric Psychiatric: Denies anxiety or depression Endocrine Endocrinology: Denies polydipsia or polyuria Allergic/Immunologic Allergic/Immunologic ED: Denies urticaria EXAM Physical Exam Const Vital Signs: 04/01/22 13:34 04/01/22 14:16 04/01/22 15:01 Temperature 97.7 F L Temperature Source Oral Pulse Rate 75 78 Respiratory Rate 18 17 Respiratory Effort Normal Respiratory Pattern Normal Blood Pressure 185/82 H 150/65 H Blood Pressure Mean 116 93 Pulse Ox 97 97 Oxygen Delivery Method Room Air Room Air Positive well developed General Appearance ED: well developed HEENT Reports normocephalic Negative for trauma Eyes EOMs intact bilaterally Neck supple Chest Wall inspection of chest normal Resp normal respiratory effort Cardio regular rate GI non-tender and non-distended Back/Spine Back/Spine Narrative: unremarkable Extremity normal to inspection Neuro oriented x3 and CN's II-XII intact bilaterally Neuro Narrative: Awake alert to her name the [facility] moving all 4 extremities answering questions appropriately tracks with her eyes moves all 4 extremities to commands NIH 0 Sensorium / Orientation: alert Psych mental status grossly normal Skin no rashes or lesions noted MDM MDM MDM Narrative Medical decision making narrative: Given all the above ED screen evaluation labs ammonia level IV fluids UA The patient's chemistry panel shows slight elevation of creatinine from baseline of 2-2.3 today UA shows nothing acute, ammonia level CBC pending EKG shows a sinus rhythm nothing acute, 1 view chest x-ray to my review shows normal cardiopulmonary structures nothing acute poor quality radiology concurs She remains awake and alert in the emergency department at this time the ammonia level and the CBC are pending I have asked the afternoon physician to check these and assume care if these are unremarkable I feel patient be safely discharged back to the [facility] where she resides continue her management as she is awake she is alert she is moving all 4 extremities she has no specific complaints, as a precaution we did provide her with an additional dose of lactulose and the patient is comfortable with this plan Final disposition Fatigue etiology unclear, transient elevation of creatinine history of hepatic and toxic metabolic encephalopathy Lab Data Labs: Laboratory Results - last 24 hr 04/01/22 04/01/22 04/01/22 13:55 14:45 14:45 WBC Cancelled Corrected WBC Cancelled RBC Cancelled Hgb Cancelled Hct Cancelled MCV Cancelled MCH Cancelled MCHC Cancelled RDW Std Deviation Cancelled RDW Coeff of Valentina Cancelled Plt Count Cancelled MPV Cancelled Immature Gran % (Auto) Cancelled Neut % (Auto) Cancelled Lymph % (Auto) Cancelled [place] % (Auto) Cancelled Eos % (Auto) Cancelled Baso % (Auto) Cancelled Absolute Neuts (auto) Cancelled Absolute Lymphs (auto) Cancelled Total Counted Cancelled Neutrophils % (Manual) Cancelled Band Neutrophils % Cancelled Lymphocytes % (Manual) Cancelled Monocytes % (Manual) Cancelled Eosinophils % (Manual) Cancelled Basophils % (Manual) Cancelled Metamyelocytes % Cancelled Myelocytes % Cancelled Promyelocytes % Cancelled Blast Cells % Cancelled Plasma Cell % (Manual) Cancelled Other Cells % Cancelled Nucleated RBC % Cancelled Nucleated RBCs/100 WBC Cancelled Differential Comment Cancelled Diff Path Review Cancelled Hypersegmented Neuts Cancelled Atypical Lymphocytes Cancelled Reactive Lymphocytes Cancelled Smudge Cells Cancelled Toxic Granulation Cancelled Toxic Vacuolation Cancelled Dohle Bodies Cancelled Kemar Rods Cancelled Platelet Estimate Cancelled Plt Morphology Comment Cancelled RBC Morphology Cancelled Polychromasia Cancelled Hypochromasia Cancelled Poikilocytosis Cancelled Basophilic Stippling Cancelled Anisocytosis Cancelled Microcytosis Cancelled Macrocytosis Cancelled Spherocytes Cancelled Sickle Cells Cancelled Target Cells Cancelled Tear Drop Cells Cancelled Ovalocytes Cancelled Stomatocytes Cancelled [place] Bodies Cancelled [place] Cells Cancelled Bite Cells Cancelled Crenated Cell Cancelled Acanthocytes (Spur) Cancelled Rouleaux Cancelled Schistocytes Cancelled Sodium 143 Potassium 4.5 Chloride 114 H Carbon Dioxide 21.0 Anion Gap 8 BUN 53 H Creatinine 2.31 H Estim Creat Clear Calc 28.41 Est GFR (MDRD) Af Amer 28 L Est GFR (MDRD) Non-Af 23 L BUN/Creatinine Ratio 22.9 H Glucose 144 H Calcium 8.9 Total Bilirubin 1.30 H Direct Bilirubin 0.43 H AST 42 H ALT 28 Alkaline Phosphatase 151 H Troponin I High Sens 16 Total Protein 7.4 Albumin 3.6 Globulin 3.8 Albumin/Globulin Ratio 0.9 Lipase 101 Urine Color Yellow Urine Clarity Sl. Cloudy Urine pH 6.0 Ur Specific [place] 1.020 Urine Protein 15 H Urine Glucose (UA) Normal Urine Ketones Negative Urine Occult Blood 10 H Urine Nitrite Negative Urine Bilirubin Negative Urine Urobilinogen Normal Ur Leukocyte Esterase 25 H Urine RBC 0 SEEN Urine WBC 0 SEEN Ur Squamous Epith Cells 0-5 SEEN Urine Bacteria 2+ Urine Mucus 0 SEEN Radiography Diagnostic Testing: Clinical Impression(s) from Imaging Studies Chest X-Ray 04/01/22 13:43 IMPRESSION: Poor inspiration with some bibasilar atelectasis. Electronically Signed: Vishal Shrestha MD at 14:33 EDT , Discharge Plan Triage Chief Complaint: Fatigue ED Provider: Mary Hobson Dx/Rx/DC Orders Clinical Impression: Hepatic encephalopathy, Toxic metabolic encephalopathy Instructions: Tests for Liver Disease, ED Weakness (Uncertain Cause) Prescriptions: No Action Tresiba FlexTouch U-100 100 unit/mL (3 mL) insulin pen 10 unit subcut DAILY RF: 0 amlodipine 10 mg tablet 10 mg PO DAILY Qty: 30 RF: 11 magnesium oxide 400 MG tablet 400 mg PO BID RF: 0 Xifaxan 550 MG tablet 550 mg PO BID RF: 0 sucralfate [Carafate] 1 gram Tablet 1 g PO ACHS RF: 0 pantoprazole 40 mg Tablet,Delayed Release (Dr/Ec) 40 mg PO DAILY RF: 0 sertraline 50 mg Tablet 50 mg PO DAILY RF: 0 Latuda 40 mg tablet 40 mg PO QHS RF: 0 ursodiol 300 mg capsule 300 mg PO BID RF: 0 carbamazepine 100 mg Tablet Extended Release 12 Hr 100 mg PO BID RF: 0 zinc 50 mg Tablet 50 mg PO DAILY RF: 0 insulin lispro [Humalog KwikPen Insulin] 100 unit/mL insulin pen 10 unit SUBCUT TID Qty: 0 RF: 0 carvedilol 3.125 mg tablet 3.125 mg PO BID RF: 0 levothyroxine 50 mcg tablet 50 mcg PO DAILY RF: 0 hydralazine 25 mg Tablet 25 mg PO BID Qty: 0 RF: 0 lactulose 20 gram/30 mL Solution 20 g PO 4X/DAY Qty: 1200 RF: 0 furosemide [Lasix] 20 mg tablet 20 mg PO DAILY Qty: 30 RF: 0 Primary Care Provider: Janay Canchola Referrals: Janay Canchola MD [Primary Care Provider] - Activity Restrictions/Additional Instructions: Continue your therapy at nursing center
[2022-04-01 14:16] LABS: Mucous, Urine 0 SEEN /hpf (<or=2+); Red Blood Cells-Urine 0 SEEN /hpf (0-5); White Blood Cells 0 SEEN /hpf (0-5)
[2022-04-01 14:23] LABS: Color, Urine Yellow (Yellow); Glucose, Dipstick Normal (Normal); Ketone-Dipstick Negative (Negative); Leukocyte Esterase-Dipstick 25 /ul (Negative); Nitrite-Dipstick Negative (Negative); Occult Blood-Urine 10 /ul (Negative); Protein-Dipstick 15 mg/dl (Negative); Urine Bilirubin Dipstick Negative (Negative); Urine Clarity Sl. Cloudy (Clear); Urine Urobilinogen Normal (Normal)
[2022-04-01 14:29] LABS: Bacteria 2+ /hpf (None Seen); Squamous Epithelial Cells - UA 0-5 SEEN /hpf (5-10)
[2022-04-01] MEDS: 0.9% Normal Saline 1,000 ML 125 ML IV (15:00)
[2022-04-01 15:01] VITALS: BP 150/65; PULSE 78; RESP 17; O2SAT 97
[2022-04-01 15:10] LABS: ALB/GLOB Ratio 0.9 RATIO (0.9-2.4); AST(SGOT) 42 U/L (15-37); Alanine Aminotransfer ALT/SGPT 28 U/L (13-56); Albumin, Serum 3.6 g/dL (3.2-5.0); Alkaline Phosphatase 151 U/L (45-117); Anion Gap 8 (5-15); BUN 53 mg/dL (7-18); BUN/Creat Ratio 22.9 RATIO (10-20); Bilirubin, Direct 0.43 mg/dL (0.00-0.30); Calcium,Total 8.9 mg/dL (8.5-10.1); Chloride 114 mmol/L (98-107); Creatinine, Serum 2.31 mg/dL (0.55-1.02); EST Glomerular Filtration Rate 23 mL/min (>60); Est Glom Filt Rate - Afr Amer 28 mL/min (>60); Estimated Creatinine Clearance 28.41 ml/min; Globulin 3.8 g/dL (2.2-4.2); Glucose 144 mg/dL (74-106); Lipase 101 U/L (73-393); Potassium 4.5 mmol/L (3.5-5.1); Protein, Total 7.4 g/dL (6.4-8.2); Sodium Level 143 mmol/L (136-145); Troponin-I HS 16 pg/mL (3.0-54.0)
[2022-04-01 15:36] LABS: Absolute Lymphocyte Count 0.47 X10^3/uL (0.83-4.51); Absolute Neutrophil Count 2.5 X10^3/uL (2.0-7.7); Basophil# 0.06 X10^3/uL; Basophil% 1.8 % (0-1); Eosinophil# 0.12 X10^3/uL; Eosinophils% 3.5 % (0-5); Hematocrit 28.2 % (37-47); Hemoglobin 9.4 g/dL (12.0-15.0); Lymphocyte # 0.47 X10^3/ul (0.83-4.51); Lymphocyte % 13.8 % (19-41); Mean Corp Hgb Conc 33.3 g/dL (32-36); Mean Corpuscular Hgb 30.9 pg (27.0-32.0); Mean Corpuscular Volume 92.8 fL (81-99); Monocyte# 0.28 X10^3/uL; Monocyte% 8.2 % (0-10); NRBC Flagged by Analyzer 0 % (0-5); Neutrophil # 2.46 X10^3/uL (2.7-7.7); Neutrophil % 72.1 % (47-70); POSITIVE COUNT YES; POSITIVE DIFFERENTIAL YES; RBC Distribution Width CV 17.2 % (11.6-14.6); RBC Distribution Width SD 57.1 fl (35.1-43.9); Red Blood Count 3.04 M/mm3 (4.2-5.4); White Blood Count 3.4 K/mm3 (4.4-11.0)
[2022-04-01] MEDS: Lactulose 20 GM/30 ML UDC PO (15:40)
[2022-04-01 15:44] LABS: Differential Indicated SCAN CRITERIA MET; Platelet Count 61 K/mm3 (150-450)
[2022-04-01 16:12] LABS: Anisocytosis 1+
--- NOTE | 2022-04-01 17:11 | NURSING ---
when this RN attempts to call report back to [facility], the pt's nurse at [facility] questions this RN about if she checks out for a brain bleed. this RN asks [facility] nurse as to why she was concerned for a brain bleed since the report taken from [facility] was that the patient had increased lethargy and weakness and needed more assistance than normal with lunch meal. The [facility] nurse states that their Dr. was concerned for brain bleeds since the patient had fallen multiple times and they were unsure if the pt had hit her head or not. This RN explains that her report did not match the report of EMS. This RN asks the [facility] nurse if report was called to [facility] ER and the nurse denies calling report. This RN explains places nurse on hold and jeromy Glover informed. TAMIKO Glover takes call and explains to nurse that pt was treated for elevated ammonia levels and was ok to be discharged back to facility. pt's mother from [place] also called stating that [facility] told her that pt lost consciousness and asks ED staff if we were able to regain consciousness? jeromy Glover talks with family and updates on pt status and pending discharge back to facility.
[2022-04-01 17:13] VITALS: BP 148/65; PULSE 72; RESP 18; O2SAT 95
[2022-04-02 15:16] LABS: Pathologist Review Reviewed
== END 2022-04-01 17:27 ==
PROVIDERS: Emergency Provider Emergency Medicine; PCP Internal Medicine; Visit Provider Emergency Medicine
DX: G92.8 Other toxic encephalopathy (principal); E11.42 Type 2 diabetes mellitus with diabetic polyneuropathy; Z79.4 Long term (current) use of insulin; I10 Essential (primary) hypertension; Z79.899 Other long term (current) drug therapy
CPT/HCPCS: 36415; 71045; 80053; 81001; 82140; 82248; 83690; 84484; 85025; 87086; 87088; 87186; 93005; 99285; J7030; P9612; A4216

== ENCOUNTER 2022-04-02 06:47 | Emergency (ER) | payer MEDICARE, MEDICAID, SELFPAY ==
[2022-04-02] VITALS (9 sets, daily range): BP systolic 156–206; BP diastolic 61–84; PULSE 58–71; RESP 13–18; TEMP 36.5; O2SAT 96–98; BMI 31.9
--- NOTE | 2022-04-02 07:23 | CT_ITS ---
STUDY: CT BRAIN WITHOUT CONTRAST REASON FOR EXAM: Female, 51 years old. Altered mental status RADIATION DOSAGE (If Supplied By Facility): CTDIvol = ( 44.99 ) mGy, DLP = ( 728.62 ) mGycm TECHNIQUE: Transaxial CT imaging of the brain was performed without administration of intravenous contrast material. Individualized dose optimization techniques were used for this CT. COMPARISON: Comparison is made with prior study dated 08/20/2021. FINDINGS: Normal soft tissue structures. Normal calvarium. Normal size ventricles and extra-axial spaces for the patient''s age. Stable mild encephalomalacia in the posterior aspect of the right sylvian fissure. This is suggestive of old ischemic insult. Normal basal ganglia and thalami. Normal brainstem. Normal cerebellum. Prominence of the cisterna magna. This is a normal variant. There is no intracranial hemorrhage. There are no findings of an acute ischemic infarction. Normal visualized paranasal sinuses. CT/Brain/Head without Contrast IMPRESSION: Stable examination. Findings suggestive of viral focal encephalomalacia in the right temporal parietal lobe adjacent to the sylvian fissure suggestive of old ischemic insult. Electronically Signed: Dash Shin MD at 8:31 EDT ,
--- NOTE | 2022-04-02 07:25 | EKG12_ITS ---
Test Reason : ALT LOC Blood Pressure : / mmHG Vent. Rate : 063 BPM Atrial Rate : 063 BPM P-R Int : 204 ms QRS Dur : 118 ms QT Int : 486 ms P-R-T Axes : 020 -36 086 degrees QTc Int : 497 ms Normal sinus rhythm Left axis deviation Incomplete left bundle branch block Abnormal ECG Confirmed by PAM ZAMBRANO, RANCHO ([id number]), online editor NORA MENDES ([id number]) on 04/04/2022 10:30:02 AM Referred By: Confirmed By:RANCHO OROZCO MD
--- NOTE | 2022-04-02 07:26 | ED.RN ---
Pts SO called and would like her transferred to [facility].
--- NOTE | 2022-04-02 07:28 | ED.RN ---
Sister of fpt who is POA also requested that she be transferred to [facility]. Sister was advised as well as SO that I would pass that information along to the Dr. Both were advised that what we are seeing is [facility] not having beds and pt sitting here for 3-4 days before being transferred.
[2022-04-02 07:43] LABS: Absolute Lymphocyte Count 0.44 X10^3/uL (0.83-4.51); Absolute Neutrophil Count 2.3 X10^3/uL (2.0-7.7); Basophil# 0.03 X10^3/uL; Basophil% 0.9 % (0-1); Eosinophil# 0.09 X10^3/uL; Eosinophils% 2.8 % (0-5); Hematocrit 26.1 % (37-47); Hemoglobin 8.4 g/dL (12.0-15.0); Lymphocyte # 0.44 X10^3/ul (0.83-4.51); Lymphocyte % 13.9 % (19-41); Mean Corp Hgb Conc 32.2 g/dL (32-36); Mean Corpuscular Hgb 30.5 pg (27.0-32.0); Mean Corpuscular Volume 94.9 fL (81-99); Mean Platelet Vol. 12.4 fl (6.2-12.0); Monocyte# 0.27 X10^3/uL; Monocyte% 8.5 % (0-10); NRBC Flagged by Analyzer 0 % (0-5); Neutrophil # 2.32 X10^3/uL (2.7-7.7); Neutrophil % 73.6 % (47-70); POSITIVE COUNT YES; POSITIVE DIFFERENTIAL YES; Platelet Count 51 K/mm3 (150-450); RBC Distribution Width CV 16.9 % (11.6-14.6); RBC Distribution Width SD 58.1 fl (35.1-43.9); Red Blood Count 2.75 M/mm3 (4.2-5.4); White Blood Count 3.2 K/mm3 (4.4-11.0)
[2022-04-02 07:44] LABS: Differential Indicated SCAN CRITERIA MET
[2022-04-02 07:59] LABS: ALB/GLOB Ratio 0.9 RATIO (0.9-2.4); AST(SGOT) 30 U/L (15-37); Alanine Aminotransfer ALT/SGPT 26 U/L (13-56); Albumin, Serum 3.1 g/dL (3.2-5.0); Alkaline Phosphatase 136 U/L (45-117); Anion Gap 10 (5-15); BUN 56 mg/dL (7-18); BUN/Creat Ratio 27.1 RATIO (10-20); Calcium,Total 8.4 mg/dL (8.5-10.1); Chloride 113 mmol/L (98-107); Creatinine, Serum 2.07 mg/dL (0.55-1.02); EST Glomerular Filtration Rate 27 mL/min (>60); Est Glom Filt Rate - Afr Amer 32 mL/min (>60); Estimated Creatinine Clearance 31.71 ml/min; Globulin 3.3 g/dL (2.2-4.2); Glucose 155 mg/dL (74-106); Lipase 94 U/L (73-393); Potassium 4.1 mmol/L (3.5-5.1); Protein, Total 6.4 g/dL (6.4-8.2); Sodium Level 145 mmol/L (136-145); Troponin-I HS (w/2H Reflex) 16 pg/mL (3.0-54.0)
--- NOTE | 2022-04-02 08:01 | RAD_ITS ---
STUDY: X-RAY CHEST REASON FOR EXAM: Female, 51 years old. Altered mental status TECHNIQUE: Single AP portable view of the chest. COMPARISON: Comparison is made with prior study dated 04/01/2022. FINDINGS: EKG electrodes are seen. Stable elevation of the right hemidiaphragm. Basilar congestion and CHF. There has been mild progression. There is no demonstrated pleural abnormality. There is moderate cardiac enlargement. Normal mediastinum and sonny. Normal visualized pulmonary arteries. Normal visualized aortic arch and descending thoracic aorta. Normal visualized thoracic spine. Normal visualized ribs, clavicles, and shoulders. A TIPS device is seen in the right upper quadrant. RAD/Chest 1 View (Portable) IMPRESSION: Progressive vascular congestion and CHF. Electronically Signed: Dash Shin MD at 8:27 EDT ,
[2022-04-02 08:05] LABS: Lactic Acid 0.7 mmol/L (0.4-1.9)
[2022-04-02 08:06] LABS: International Normalized Ratio 1.4; Prothrombin Time (Protime)PT. 16.4 SECONDS (11.7-14.9)
[2022-04-02 08:07] LABS: Partial Thromboplast Time 36.3 Seconds (24.1-36.2)
[2022-04-02 08:15] LABS: Mucous, Urine 0 SEEN /hpf (<or=2+); Squamous Epithelial Cells - UA 0 SEEN /hpf (5-10)
[2022-04-02 08:16] LABS: Color, Urine Yellow (Yellow); Glucose, Dipstick Normal (Normal); Ketone-Dipstick Negative (Negative); Leukocyte Esterase-Dipstick Negative /ul (Negative); Nitrite-Dipstick Positive (Negative); Occult Blood-Urine 10 /ul (Negative); Protein-Dipstick 15 mg/dl (Negative); Specific Gravity, Urine 1.015 (1.002-1.030); Urine Bilirubin Dipstick Negative (Negative); Urine Clarity Clear (Clear); Urine Urobilinogen Normal (Normal)
--- NOTE | 2022-04-02 08:21 | EX.ED.DYSGE1 ---
HPI History of Present Illness Chief Complaint: Alt LOC Informant: SNF Onset/Context/Timing Context: Gradual Onset Timing: Continuous Quality: Decreased mental status Location: Generalized Narrative Narrative: Patient presents with altered mental status that became worse today. Patient lives in a [facility] where they noted her mental status to be decreased today. Patient has a history of hepatic encephalopathy and elevated ammonia levels. Patient is nonverbal and is a poor historian. [facility] Medical History Acute on chronic renal insufficiency Anemia Autoimmune hepatitis Bacteremia due to methicillin resistant Staphylococcus epidermidis Bipolar disorder CHI (closed head injury) Chronic pain Cirrhosis of liver Depression Diabetes mellitus Diabetes mellitus, type 2 Encephalopathy acute Reilly's thyroiditis Hepatic encephalopathy Hepatitis History of hypothyroidism Hypertension Kidney disease MRSA bacteremia Pancreatitis Pancytopenia Pancytopenia Peripheral neuropathy Schizoaffective disorder Severe sepsis Splenomegaly Home Medications magnesium oxide 400 mg PO BID 03/14/17 [History Last Taken 03/22/22] Xifaxan 550 mg PO BID 11/04/17 [History Last Taken 03/22/22] Latuda 40 mg PO QHS 03/20/21 [History Last Taken 03/22/22] pantoprazole 40 mg PO DAILY 03/20/21 [History Last Taken 03/22/22] sertraline 50 mg PO DAILY 03/20/21 [History Last Taken 03/22/22] sucralfate [Carafate] 1 g PO ACHS 03/20/21 [History Last Taken 03/22/22] ursodiol 300 mg capsule 300 mg PO BID 04/25/21 [History Last Taken 03/22/22] carbamazepine 100 mg PO BID 04/29/21 [History Last Taken 03/22/22] zinc 50 mg PO DAILY 09/18/21 [History Last Taken 03/22/22] insulin lispro [Humalog KwikPen Insulin] 10 unit SUBCUT TID #0 ml 09/19/21 [Rx Last Taken 03/22/22] amlodipine 10 mg tablet 10 mg PO DAILY #30 tab 10/26/21 [Rx Last Taken 03/22/22] insulin degludec 100 unit/mL (3 mL) subcutaneous pen 10 unit SUBCUT DAILY 10/26/21 [History Last Taken 03/22/22] carvedilol 3.125 mg PO BID 03/23/22 [History Last Taken 03/22/22] levothyroxine 50 mcg PO DAILY 03/23/22 [History Last Taken 03/22/22] furosemide [Lasix] 20 mg PO DAILY #30 tab 03/27/22 [Rx Last Taken Unknown] hydralazine 25 mg PO BID #0 tab 03/27/22 [Rx Last Taken Unknown] lactulose 20 g PO 4X/DAY #1200 ml 03/27/22 [Rx Last Taken Unknown] Allergy/AdvReac Type Severity Reaction Status Date / Time adhesive Allergy Rash Verified 03/23/22 12:03 escitalopram oxalate Allergy blindness Verified 03/23/22 12:03 [From Lexapro] Fish Containing Products Allergy Other Verified 04/02/22 06:52 gabapentin [From Neurontin] Allergy Alan Verified 03/23/22 12:03 Jez's Syndrome lamotrigine [From Lamictal] Allergy Blindness Verified 03/23/22 12:03 Preservatives Allergy passed Uncoded 03/23/22 12:03 out, lungs deflated sour cream Allergy Anaphylaxis Uncoded 03/23/22 12:03 Family History Father CVA (cerebral vascular accident) Myocardial infarction Heart disease CAD (coronary artery disease) Grandmother CHF (congestive heart failure) Sister Hypertension Mother Heart disease Surgical History H/O: hysterectomy History of abdominal paracentesis (10/2019) History of appendectomy History of cholecystectomy S/P TIPS (transjugular intrahepatic portosystemic shunt) Social History household members: significant other housing: house Smoking Status: Never smoker alcohol intake: never details: Unknown substance use type: does not use ROS ROS ED Review of Systems ROS Unobtainable: due to mental condition and due to mental status EXAM Physical Exam Const Vital Signs: 04/02/22 06:48 04/02/22 08:47 04/02/22 10:00 Temperature 97.7 F L Temperature Source Temporal Pulse Rate 62 60 70 Respiratory Rate 15 14 17 Blood Pressure 176/66 H 178/73 H 156/77 H Blood Pressure Mean 102 108 103 Pulse Ox 96 97 96 Oxygen Delivery Method Room Air Room Air Room Air 04/02/22 12:00 04/02/22 14:08 Temperature Temperature Source Pulse Rate 65 71 Respiratory Rate 14 18 Blood Pressure 206/77 H 202/79 H Blood Pressure Mean 120 120 Pulse Ox 96 96 Oxygen Delivery Method Room Air Room Air Positive well nourished and well developed General Appearance ED: well developed and NAD HEENT Reports moist mucous membranes Neck supple and no JVD Resp normal respiratory effort and clear to auscultation bilaterally Cardio regular rate and regular rhythm GI non-distended Auscultation: normoactive bowel sounds Palpation: soft Extremity General Extremety ED: Yes edema General Extremity: edema Neuro Sensorium / Orientation: stuporous MDM MDM MDM Narrative Medical decision making narrative: EKG was obtained. On my interpretation, it showed a normal sinus rhythm with a rate of 63. MD interval, QRS interval, and QTc intervals were all normal. There is left axis deviation at -36. There are no acute ST or T wave changes. CBC shows pancytopenia with a white blood cell count 3.2, hemoglobin of 8.4 and hematocrit of 26.1, and platelets of 51. PT was 16.4 and INR was 1.4. PTT was slightly elevated at 36.3. Comprehensive metabolic profile showed a BUN of 56 and creatinine of 2.07. Glucose is 155. Alkaline phosphatase was slightly elevated 136. High-sensitivity troponin was normal. Lipase was normal. B type natruretic peptide was 540.3. Serum ammonia level was 124. Urinalysis shows positive nitrates but 0-5 white blood cells. There is 3+ bacteria. There are 0 epithelial cells. Urine culture was ordered. CT scan of the brain was obtained. 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 There is no acute abnormality noted. This was interpreted by the radiologist and reviewed by myself. Portable chest x-ray was obtained. There is 1 view. On my interpretation, there is evidence of congestive heart failure and vascular congestion. Bony thorax was normal. There is no cardiomegaly. Radiologist also interpreted the x-ray and agrees. Patient was given a dose of Lasix here. Patient was given a dose of rectal lactulose. Family requested the patient be transferred to [facility] Case was discussed with the [facility] transfer line. They may have available beds at [facility] but there is over 100 patient is waiting to be transferred to the main [place]. Patient was accepted to [facility] to the service of Dr. Stuart. Patient will be transferred there when a bed becomes available. Lab Data Attestation: I reviewed the patient's lab results. Labs: Laboratory Results - last 24 hr 04/02/22 04/02/22 04/02/22 07:00 07:00 07:00 WBC 3.2 L RBC 2.75 L Hgb 8.4 L Hct 26.1 L MCV 94.9 MCH 30.5 MCHC 32.2 RDW Std Deviation 58.1 H RDW Coeff of Valentina 16.9 H Plt Count 51 L MPV 12.4 H Immature Gran % (Auto) 0.300 Neut % (Auto) 73.6 H Lymph % (Auto) 13.9 L Barry % (Auto) 8.5 Eos % (Auto) 2.8 Baso % (Auto) 0.9 Absolute Neuts (auto) 2.3 Absolute Lymphs (auto) 0.44 L Nucleated RBC % 0 Differential Comment COMMENT Diff Path Review Reviewed Platelet Estimate MOD DEC RBC Morphology NORM C+C PT 16.4 H INR 1.4 APTT 36.3 H Sodium 145 Potassium 4.1 Chloride 113 H Carbon Dioxide 22.0 Anion Gap 10 BUN 56 H Creatinine 2.07 H Estim Creat Clear Calc 31.71 Est GFR (MDRD) Af Amer 32 L Est GFR (MDRD) Non-Af 27 L BUN/Creatinine Ratio 27.1 H Glucose 155 H Lactic Acid Calcium 8.4 L Total Bilirubin 1.00 AST 30 ALT 26 Alkaline Phosphatase 136 H Ammonia Troponin I High Sens 16 B-Natriuretic Peptide Total Protein 6.4 Albumin 3.1 L Globulin 3.3 Albumin/Globulin Ratio 0.9 Lipase 94 Urine Color Urine Clarity Urine pH Ur Specific [place] Urine Protein Urine Glucose (UA) Urine Ketones Urine Occult Blood Urine Nitrite Urine Bilirubin Urine Urobilinogen Ur Leukocyte Esterase Urine RBC Urine WBC Ur Squamous Epith Cells Urine Bacteria Urine Mucus 04/02/22 04/02/22 04/02/22 07:00 07:00 07:55 WBC RBC Hgb Hct MCV MCH MCHC RDW Std Deviation RDW Coeff of Valentina Plt Count MPV Immature Gran % (Auto) Neut % (Auto) Lymph % (Auto) Barry % (Auto) Eos % (Auto) Baso % (Auto) Absolute Neuts (auto) Absolute Lymphs (auto) Nucleated RBC % Differential Comment Diff Path Review Platelet Estimate RBC Morphology PT INR APTT Sodium Potassium Chloride Carbon Dioxide Anion Gap BUN Creatinine Estim Creat Clear Calc Est GFR (MDRD) Af Amer Est GFR (MDRD) Non-Af BUN/Creatinine Ratio Glucose Lactic Acid 0.7 Calcium Total Bilirubin AST ALT Alkaline Phosphatase Ammonia 124.0 H Troponin I High Sens B-Natriuretic Peptide 540.3 H Total Protein Albumin Globulin Albumin/Globulin Ratio Lipase Urine Color Yellow Urine Clarity Clear Urine pH 6.0 Ur Specific [place] 1.015 Urine Protein 15 H Urine Glucose (UA) Normal Urine Ketones Negative Urine Occult Blood 10 H Urine Nitrite Positive H Urine Bilirubin Negative Urine Urobilinogen Normal Ur Leukocyte Esterase Negative Urine RBC 0-5 SEEN Urine WBC 0-5 SEEN Ur Squamous Epith Cells 0 SEEN Urine Bacteria 3+ Urine Mucus 0 SEEN 04/02/22 10:25 WBC RBC Hgb Hct MCV MCH MCHC RDW Std Deviation RDW Coeff of Valentina Plt Count MPV Immature Gran % (Auto) Neut % (Auto) Lymph % (Auto) Barry % (Auto) Eos % (Auto) Baso % (Auto) Absolute Neuts (auto) Absolute Lymphs (auto) Nucleated RBC % Differential Comment Diff Path Review Platelet Estimate RBC Morphology PT INR APTT Sodium Potassium Chloride Carbon Dioxide Anion Gap BUN Creatinine Estim Creat Clear Calc Est GFR (MDRD) Af Amer Est GFR (MDRD) Non-Af BUN/Creatinine Ratio Glucose Lactic Acid Calcium Total Bilirubin AST ALT Alkaline Phosphatase Ammonia Troponin I High Sens 13 B-Natriuretic Peptide Total Protein Albumin Globulin Albumin/Globulin Ratio Lipase Urine Color Urine Clarity Urine pH Ur Specific [place] Urine Protein Urine Glucose (UA) Urine Ketones Urine Occult Blood Urine Nitrite Urine Bilirubin Urine Urobilinogen Ur Leukocyte Esterase Urine RBC Urine WBC Ur Squamous Epith Cells Urine Bacteria Urine Mucus Radiography Diagnostic Testing: Clinical Impression(s) from Imaging Studies Brain CT 04/02/22 07:23 IMPRESSION: Stable examination. Findings suggestive of viral focal encephalomalacia in the right temporal parietal lobe adjacent to the sylvian fissure suggestive of old ischemic insult. Electronically Signed: Dash Shin MD at 8:31 EDT , Chest X-Ray 04/02/22 08:01 IMPRESSION: Progressive vascular congestion and CHF. Electronically Signed: Dash Shin MD at 8:27 EDT , EKG Initial EKG: Attestation: I personally reviewed and interpreted this EKG as follows: Interpretation: Sinus Rhythm (63) and No Acute Injury Pattern Prior EKG tracings: available for review Prior: Unchanged (03/23/2022) Discharge Plan Triage Chief Complaint: Alt LOC ED Provider: Isaiah Carrillo Dx/Rx/DC Orders Clinical Impression: Acute hepatic encephalopathy, Pancytopenia, Stage 3b chronic kidney disease (CKD), Congestive heart failure Prescriptions: No Action Tresiba FlexTouch U-100 100 unit/mL (3 mL) insulin pen 10 unit subcut DAILY RF: 0 amlodipine 10 mg tablet 10 mg PO DAILY Qty: 30 RF: 11 magnesium oxide 400 MG tablet 400 mg PO BID RF: 0 Xifaxan 550 MG tablet 550 mg PO BID RF: 0 sucralfate [Carafate] 1 gram Tablet 1 g PO ACHS RF: 0 pantoprazole 40 mg Tablet,Delayed Release (Dr/Ec) 40 mg PO DAILY RF: 0 sertraline 50 mg Tablet 50 mg PO DAILY RF: 0 Latuda 40 mg tablet 40 mg PO QHS RF: 0 ursodiol 300 mg capsule 300 mg PO BID RF: 0 carbamazepine 100 mg Tablet Extended Release 12 Hr 100 mg PO BID RF: 0 zinc 50 mg Tablet 50 mg PO DAILY RF: 0 insulin lispro [Humalog KwikPen Insulin] 100 unit/mL insulin pen 10 unit SUBCUT TID Qty: 0 RF: 0 carvedilol 3.125 mg tablet 3.125 mg PO BID RF: 0 levothyroxine 50 mcg tablet 50 mcg PO DAILY RF: 0 hydralazine 25 mg Tablet 25 mg PO BID Qty: 0 RF: 0 lactulose 20 gram/30 mL Solution 20 g PO 4X/DAY Qty: 1200 RF: 0 furosemide [Lasix] 20 mg tablet 20 mg PO DAILY Qty: 30 RF: 0 Primary Care Provider: Janay Canchola Referrals: Janay Canchola MD [Primary Care Provider] - Disposition Disposition: Acute Care Hospital Discharge Location: [facility]
[2022-04-02 08:22] LABS: Bacteria 3+ /hpf (None Seen); Red Blood Cells-Urine 0-5 SEEN /hpf (0-5); White Blood Cells 0-5 SEEN /hpf (0-5)
[2022-04-02 08:27] LABS: Platelet Estimate MOD DEC (ADEQ); Red Cell Morphology NORM C+C NORMAL (NORM C&C)
[2022-04-02 08:28] LABS: BNP,B-Type NATRIURETIC PEPTIDE 540.3 pg/mL (0-100)
--- NOTE | 2022-04-02 08:56 | ED.RN ---
THIS RN SPOKE WITH PTS MOTHER SVEN GEORGE. MOTHER WANTED TO CHECK ON PTS ALERTNESS AND SEE IF SHE COULD BE TRANSFERRED TO [facility] NOW. MOTHER WAS INFORMED BY THIS RN THAT WE NEED TO WAIT UNTIL ALL TEST RESULTS ARE BACK AND FOR THE ER PHYSICIAN TO LOOK OVER THEM IN ORDER TO FACILITATE APPROPRIATE AND ACCURATE COMMUNICATION WITH ANOTHER HOSPITAL FOR HER CARE. MOTHER WAS ALSO INFORMED THAT 2 OTHER FAMILY MEMBERS HAVE ALSO CALLED FOR UPDATES AND WAS ASKED IF SHE IS IN COMMUNICATION WITH THEM. SHE STATES SHE IS BUT SOMETIMES IT CAN BE HARD TO GET [facility] OF THEM DUE TO THE TIME DIFFERENCE. MOTHER WAS ASKED BY THIS RN IF THEY COULD PICK A FAMILY MEMBER THE POINT OF CONTACT FOR PATIENT CARE UPDATES. ER PHYSICIAN AWARE OF FAMILY REQUEST TO BE TRANSFERRED TO [facility]
[2022-04-02] MEDS: Furosemide 40 MG/4 ML Vial IV (09:33)
[2022-04-02 09:36] LABS: Reflex Troponin-HS? (from REC) Y
[2022-04-02] MEDS: Lactulose 20 GM/30 ML UDC 200 GM RC (09:37)
--- NOTE | 2022-04-02 09:52 | NURSING ---
CALLED [facility]. TALKED TO RADHA. SHE IS TALKING TO DR LOPEZ
--- NOTE | 2022-04-02 10:09 | NURSING ---
[facility] DR FOR DR LOPEZ
[2022-04-02 10:52] LABS: Troponin-I HS 13 pg/mL (3.0-54.0)
[2022-04-02] MEDS: hydrALAZINE 20 MG/ML Vial 5 MG IV (11:58)
[2022-04-02 13:32] LABS: Pathologist Review Reviewed
[2022-04-02] MEDS: Labetalol (Prefilled) 20 MG/4 ML 10 MG IV ×2 (14:04→17:34)
--- NOTE | 2022-04-02 14:48 | NURSING ---
CALLED [facility] TRANSFER LINE, TALKED TO JADEN. NO BED YET
--- NOTE | 2022-04-02 16:45 | NURSING ---
[facility] 3S ROOM 311 BED 1 NURSE TO NURSE [phone]
--- NOTE | 2022-04-02 17:05 | NURSING ---
CALLED [facility], ETA IS 90 MIN
--- NOTE | 2022-04-02 17:10 | ED.RN ---
attempted to call report. RN off floor and asked this RN to call back.
== END 2022-04-02 18:59 | disposition short-term general hospital (02) ==
PROVIDERS: Emergency Provider Emergency Medicine; PCP Internal Medicine; Visit Provider Emergency Medicine
DX: K72.00 Acute and subacute hepatic failure without coma (principal); D61.818 Other pancytopenia; I13.0 Hypertensive heart and chronic kidney disease with heart failure and stage 1 through stage 4 chronic kidney disease, or unspecified chronic kidney disease; I50.9 Heart failure, unspecified; F31.9 Bipolar disorder, unspecified; E11.42 Type 2 diabetes mellitus with diabetic polyneuropathy; E11.22 Type 2 diabetes mellitus with diabetic chronic kidney disease; Z79.4 Long term (current) use of insulin; N18.32 Chronic kidney disease, stage 3b; Z79.899 Other long term (current) drug therapy
CPT/HCPCS: 51702; 70450; 71045; 80053; 81001; 82140; 83605; 83690; 83880; 84484; 85025; 85610; 85730; 87040; 87086; 87088; 87186; 87428; 93005; 96374; 96375; 96376; 99285; A4216; J1940

== ENCOUNTER 2022-04-16 03:18 | Inpatient (IN) | payer MEDICARE, MEDICAID, SELFPAY ==
[2022-04-16] VITALS (27 sets, daily range): BP systolic 148–230; BP diastolic 53–107; PULSE 63–84; RESP 16–28; TEMP 36.3–37; O2SAT 92–100; BMI 29.8; BMI 30.7; BMI 31.9
--- NOTE | 2022-04-16 03:21 | CT_ITS ---
We are attempting to reach an attending provider to discuss findings. An addendum with communication details will be sent when the communication is complete. EXAM: CT HEAD WITHOUT INTRAVENOUS CONTRAST CLINICAL INDICATION: Neuro deficit, acute, stroke suspected TECHNIQUE: Multiple axial images were obtained of the head without intravenous contrast. This CT exam was performed using one or more of the following dose reduction techniques: automated exposure control, adjustment of the mA and/or kV according to patient size, and/or use of iterative reconstruction technique. This report was created using [employer] report [employer] technology. COMPARISON: 04/02/2022 FINDINGS: BRAIN AND EXTRA-AXIAL SPACES: Unremarkable. No intra- or extra-axial hemorrhage. No evidence of acute infarct. No intracranial mass or mass effect. There is preservation of the thakkar/white matter interface. Posterior fossa structures are unremarkable. Ventricles are appropriate for age. No hydrocephalus. Basal cisterns are patent. BONES/JOINTS: Unremarkable. No discrete lytic or blastic abnormalities. SINUSES: Unremarkable as visualized. Clear. MASTOID AIR CELLS: Unremarkable. Clear. ORBITS: Visualized globes, extraocular muscles, optic nerves and retrobulbar fat appear unremarkable. ASPECTS: 10 CT/STROKE Brain/Head without Cont IMPRESSION: Negative head/brain CT without intravenous contrast. Electronically Signed: Reese Rodriguez MD at 3:39 EDT ,
--- NOTE | 2022-04-16 03:21 | EKG12_ITS ---
Test Reason : STROKE Blood Pressure : / mmHG Vent. Rate : 090 BPM Atrial Rate : 090 BPM P-R Int : 218 ms QRS Dur : 110 ms QT Int : 366 ms P-R-T Axes : 057 -42 079 degrees QTc Int : 447 ms Sinus rhythm with 1st degree A-V block Left axis deviation Abnormal ECG Confirmed by DEDE ZAMBRANO, ROSA ([id number]), visual effects editor MORELIA RODRIGUEZ ([id number]) on 04/17/2022 1:28:26 PM Referred By: PL Confirmed By:ROSA AGUAYO MD
--- NOTE | 2022-04-16 03:24 | EX.ED.DYSGE1 ---
HPI History of Present Illness Chief Complaint: Neuro S/Sx Informant: EMS Narrative Narrative: Story is severely limited as patient is not talking. Per EMS she has been showing decreased responsiveness for at least 4 or 5 hours if not longer. They could get her occasionally to squeeze hands. They thought she had some droop on the right side of her face so stroke team was called. I have no report of trauma. When I review her chart it sounds like she has had history of some similar presentation secondary to elevated ammonia levels. Again, I have no absolute details on when this started specific symptoms progression etc. History is very limited this time. Hopefully I will get family interview able to get her to talk a bit more in the future. [facility] Medical History (Updated 04/16/22 @ 07:[address] Alex Lizarraga MD) Acute kidney injury superimposed on chronic kidney disease Acute on chronic renal insufficiency Anemia Anemia Autoimmune hepatitis Bacteremia due to methicillin resistant Staphylococcus epidermidis Bipolar disorder CHI (closed head injury) Chronic pain Cirrhosis of liver Depression Diabetes mellitus Diabetes mellitus, type 2 Encephalopathy acute Reilly's thyroiditis Hepatic encephalopathy Hepatitis History of hypothyroidism Hypertension Kidney disease MRSA bacteremia Pancreatitis Pancytopenia Pancytopenia Pancytopenia Peripheral neuropathy Schizoaffective disorder Severe sepsis Splenomegaly Stage 3b chronic kidney disease (CKD) Home Medications magnesium oxide 400 mg PO BID 03/14/17 [History Last Taken 03/22/22] Xifaxan 550 mg PO BID 11/04/17 [History Last Taken 03/22/22] pantoprazole 40 mg PO DAILY 03/20/21 [History Last Taken 03/22/22] sertraline 50 mg PO DAILY 03/20/21 [History Last Taken 03/22/22] sucralfate [Carafate] 1 g PO ACHS 03/20/21 [History Last Taken 03/22/22] ursodiol 300 mg capsule 300 mg PO BID 04/25/21 [History Last Taken 03/22/22] carbamazepine 100 mg PO BID 04/29/21 [History Last Taken 03/22/22] zinc 50 mg PO DAILY 09/18/21 [History Last Taken 03/22/22] carvedilol 3.125 mg PO BID 03/23/22 [History Last Taken 03/22/22] levothyroxine 50 mcg PO DAILY 03/23/22 [History Last Taken 03/22/22] amlodipine 2.5 mg PO DAILY 04/16/22 [History Last Taken Unknown] benzonatate 100 mg PO TID PRN PRN 04/16/22 [History Last Taken Unknown] ergocalciferol (vitamin D2) 50,000 unit PO QODAY 04/16/22 [History Last Taken Unknown] insulin degludec [Tresiba FlexTouch U-100] 10 unit SUBCUT DAILY 04/16/22 [History Last Taken Unknown] lactulose 60 ml PO TID 04/16/22 [History Last Taken Unknown] lurasidone 40 mg PO DAILY 04/16/22 [History Last Taken Unknown] pregabalin 75 mg PO BID 04/16/22 [History Last Taken Unknown] torsemide 20 mg PO DAILY 04/16/22 [History Last Taken Unknown] Allergy/AdvReac Type Severity Reaction Status Date / Time adhesive Allergy Rash Verified 04/16/22 03:29 escitalopram oxalate Allergy blindness Verified 04/16/22 03:29 [From Lexapro] Fish Containing Products Allergy Other Verified 04/16/22 03:29 gabapentin [From Neurontin] Allergy Alan Verified 04/16/22 03:29 Jez's Syndrome lamotrigine [From Lamictal] Allergy Blindness Verified 04/16/22 03:29 topiramate [From Topamax] Allergy Other Verified 04/16/22 03:29 Preservatives Allergy passed Uncoded 04/16/22 03:29 out, lungs deflated sour cream Allergy Anaphylaxis Uncoded 04/16/22 03:29 Family History Father CVA (cerebral vascular accident) Myocardial infarction Heart disease CAD (coronary artery disease) Grandmother CHF (congestive heart failure) Sister Hypertension Mother Heart disease Surgical History H/O: hysterectomy History of abdominal paracentesis (10/2019) History of appendectomy History of cholecystectomy S/P TIPS (transjugular intrahepatic portosystemic shunt) Social History household members: significant other housing: house Smoking Status: Never smoker alcohol intake: never details: Unknown substance use type: does not use ROS ROS ED ROS Narrative Unobtainable as the patient is really nonverbal at this time. Review of Systems ROS Unobtainable: due to mental status EXAM Physical Exam Narrative Exam Narrative: Patient was quickly seen when she came to the door with EMS. She was not in a room. They stated that her blood sugar was good. Her saturations have been good. Patient is really not moving much in extremities. She does not move to command. But all extremities move. I do not see any facial asymmetry. I see a globally decreased level of alertness. We will get her acutely off to CAT scan. Const Vital Signs: 04/16/22 03:31 04/16/22 03:34 04/16/22 03:42 Temperature 97.3 F L Temperature Source Temporal Pulse Rate 84 82 Respiratory Rate 22 H 20 H Blood Pressure 205/96 H 230/107 H Blood Pressure Mean 132 148 Pulse Ox 94 99 92 Oxygen Delivery Method Nasal Cannula Nasal Cannula Non-Rebreather Oxygen Flow Rate (L/min) 2 4 15 04/16/22 04:03 04/16/22 04:22 04/16/22 06:00 Temperature 97.8 F 98.1 F Temperature Source Temporal Temporal Pulse Rate 74 81 Respiratory Rate 20 H 20 H Blood Pressure 205/96 H 213/87 H Blood Pressure Mean 132 129 Pulse Ox 98 94 Oxygen Delivery Method Nasal Cannula Room Air Oxygen Flow Rate (L/min) 2 04/16/22 06:40 04/16/22 07:13 Temperature 97.9 F Temperature Source Temporal Pulse Rate 77 64 Respiratory Rate 18 Blood Pressure 192/79 H 168/68 H Blood Pressure Mean 116 101 Pulse Ox 94 Oxygen Delivery Method Room Air Oxygen Flow Rate (L/min) Positive well nourished and well developed General Appearance ED: well developed; Negative for cyanotic or diaphoretic HEENT Reports moist mucous membranes Negative for trauma or tenderness Eyes Eyes Narrative: Is do look left and right. She does have blink reflex. Pupils are reactive. She will open her eyes when asked but does it slowly and weakly. I believe she does understand this because if I say other things loudly she does not open her eyes. She only does this if I specifically asked that. General Eye ED: Negative for pale conjunctiva Neck supple Chest Wall inspection of chest normal Resp normal respiratory effort and clear to auscultation bilaterally Cardio regular rate and regular rhythm GI normal to inspection, nondistended, normoactive bowel sounds and non-tender Palpation: soft Extremity General Extremety ED: Negative for tenderness Neuro Neuro Narrative: Patient is very lethargic. The only commands I can get her to follow is opening her eyes and squeezing her hands about 50% of the time. She does turn towards her voice. She does try to say a few words but they are unintelligible. I do not get any lateralizing finding. Psych Mood & Affect: depressed Skin no wounds MDM MDM MDM Narrative Medical decision making narrative: Patient's labs show mild pancytopenia which is chronic. INR and PTT are normal. PT is minimally elevated. Electrolytes show mild elevation in the BUN and creatinine. However, these are at chronic levels. Minimal rise in alk phos and AST about baseline. Total bilirubin is normal. Ammonia was quite high at 183. This is higher than when she has been admitted recently. I do not think her presentation is a stroke. Her CT shows no acute process. Stroke neurologist also recommended no tPA. I have never seen any lateralizing finding. Her presentation is consistent with elevated ammonia. We did place an NG. She received lactulose. Patient will be admitted. Her blood pressure was up. We did give her a small dose of labetalol and she is down to 168/68. Lab Data Attestation: I reviewed the patient's lab results. Labs: Laboratory Results - last 24 hr 04/16/22 04/16/22 04/16/22 03:40 03:40 03:40 WBC 3.9 L RBC 3.37 L Hgb 10.3 L Hct 31.0 L MCV 92.0 MCH 30.6 MCHC 33.2 RDW Std Deviation 54.1 H RDW Coeff of Valentina 16.2 H Plt Count 87 L MPV 10.2 Immature Gran % (Auto) 0.300 Neut % (Auto) 66.9 Lymph % (Auto) 18.8 L [place] % (Auto) 7.9 Eos % (Auto) 4.3 Baso % (Auto) 1.8 H Absolute Neuts (auto) 2.6 Absolute Lymphs (auto) 0.74 L Nucleated RBC % 0 PT 15.6 H INR 1.3 APTT 31.5 Sodium 143 Potassium 3.9 Chloride 114 H Carbon Dioxide 22.0 Anion Gap 7 BUN 38 H Creatinine 1.74 H Estim Creat Clear Calc 37.72 Est GFR (MDRD) Af Amer 39 L Est GFR (MDRD) Non-Af 33 L BUN/Creatinine Ratio 21.8 H Glucose 95 Calcium 8.6 Total Bilirubin 1.00 AST 51 H ALT 33 Alkaline Phosphatase 181 H Ammonia Troponin I High Sens 16 Total Protein 7.5 Albumin 3.4 Globulin 4.1 Albumin/Globulin Ratio 0.8 L 04/16/22 03:55 WBC RBC Hgb Hct MCV MCH MCHC RDW Std Deviation RDW Coeff of Valentina Plt Count MPV Immature Gran % (Auto) Neut % (Auto) Lymph % (Auto) [place] % (Auto) Eos % (Auto) Baso % (Auto) Absolute Neuts (auto) Absolute Lymphs (auto) Nucleated RBC % PT INR APTT Sodium Potassium Chloride Carbon Dioxide Anion Gap BUN Creatinine Estim Creat Clear Calc Est GFR (MDRD) Af Amer Est GFR (MDRD) Non-Af BUN/Creatinine Ratio Glucose Calcium Total Bilirubin AST ALT Alkaline Phosphatase Ammonia 183.0 H Troponin I High Sens Total Protein Albumin Globulin Albumin/Globulin Ratio ABG Data ABG results: ABG 04/16/22 04:15 Specimen Type ART Sample Site L Radial pH 7.44 Bicarbonate Actual 23.2 Total CO2 24 Base Excess -1 O2 Saturation 98 ABG pCO2 34.0 L ABG pO2 93 Daniel Test Positive O2 Delivery Device Cannula Liter Flow 2.0 Radiography Diagnostic Testing: Clinical Impression(s) from Imaging Studies Brain CT 04/16/22 03:21 IMPRESSION: Negative head/brain CT without intravenous contrast. Electronically Signed: Reese Rodriguez MD at 3:39 EDT Reading Location ID and State: [address] [place] [address] Tel , Service support , ADDENDUM: 04/16/22 0346 IMPRESSION: Negative head/brain CT without intravenous contrast. N.B. : The above Results were Read Back by Reese Rodriguez MD to Alex Lizarraga MD, and understanding confirmed on 04/16/2022 03:40:21 (ET). Electronically Signed: Reese Rodriguez MD at 3:39 EDT Reading Location ID and State: [address] [place] [address] Tel , Service support , Chest X-Ray 04/16/22 04:30 IMPRESSION: Bibasilar airspace disease and large right effusion. Findings may indicate atelectasis or pneumonia. Electronically Signed: Reese Rodriguez MD at 4:57 EDT , KUB X-Ray 04/16/22 05:12 IMPRESSION: Enteric tube extending below the level of the GE junction into the stomach. Electronically Signed: Reese Rodriguez MD at 5:52 EDT , EKG Initial EKG: Comments: EKG done as part of medical work-up read by me shows normal sinus rhythm with overall rate of 90. There is no ventricular ectopy. There is first degree AV block. [place] interval is long. QRS duration and QTc are normal. Discharge Plan Triage Chief Complaint: Neuro S/Sx ED Provider: Alex Lizarraga Dx/Rx/DC Orders Clinical Impression: Hyperammonemia, Mental status, decreased Primary Care Provider: Janay Canchola Disposition Disposition: Acute Care Hospital [facility]
--- NOTE | 2022-04-16 03:41 | ED.RN ---
per Dr. Lizarraga stroke alerts can be D/c patient presents more like metabolic issues
[2022-04-16 03:52] LABS: Absolute Lymphocyte Count 0.74 X10^3/uL (0.83-4.51); Absolute Neutrophil Count 2.6 X10^3/uL (2.0-7.7); Basophil# 0.07 X10^3/uL; Basophil% 1.8 % (0-1); Eosinophil# 0.17 X10^3/uL; Eosinophils% 4.3 % (0-5); Hemoglobin 10.3 g/dL (12.0-15.0); Lymphocyte # 0.74 X10^3/ul (0.83-4.51); Lymphocyte % 18.8 % (19-41); Mean Corp Hgb Conc 33.2 g/dL (32-36); Mean Corpuscular Hgb 30.6 pg (27.0-32.0); Mean Platelet Vol. 10.2 fl (6.2-12.0); Monocyte# 0.31 X10^3/uL; Monocyte% 7.9 % (0-10); NRBC Flagged by Analyzer 0 % (0-5); Neutrophil # 2.64 X10^3/uL (2.7-7.7); Neutrophil % 66.9 % (47-70); POSITIVE COUNT YES; Platelet Count 87 K/mm3 (150-450); RBC Distribution Width CV 16.2 % (11.6-14.6); RBC Distribution Width SD 54.1 fl (35.1-43.9); Red Blood Count 3.37 M/mm3 (4.2-5.4); White Blood Count 3.9 K/mm3 (4.4-11.0)
[2022-04-16 03:58] LABS: International Normalized Ratio 1.3; Prothrombin Time (Protime)PT. 15.6 SECONDS (11.7-14.9)
[2022-04-16 03:59] LABS: Partial Thromboplast Time 31.5 Seconds (24.1-36.2)
[2022-04-16 04:09] LABS: ALB/GLOB Ratio 0.8 RATIO (0.9-2.4); AST(SGOT) 51 U/L (15-37); Alanine Aminotransfer ALT/SGPT 33 U/L (13-56); Albumin, Serum 3.4 g/dL (3.2-5.0); Alkaline Phosphatase 181 U/L (45-117); Anion Gap 7 (5-15); BUN 38 mg/dL (7-18); BUN/Creat Ratio 21.8 RATIO (10-20); Calcium,Total 8.6 mg/dL (8.5-10.1); Chloride 114 mmol/L (98-107); Creatinine, Serum 1.74 mg/dL (0.55-1.02); EST Glomerular Filtration Rate 33 mL/min (>60); Est Glom Filt Rate - Afr Amer 39 mL/min (>60); Estimated Creatinine Clearance 37.72 ml/min; Globulin 4.1 g/dL (2.2-4.2); Glucose 95 mg/dL (74-106); Potassium 3.9 mmol/L (3.5-5.1); Protein, Total 7.5 g/dL (6.4-8.2); Sodium Level 143 mmol/L (136-145); Troponin-I HS 16 pg/mL (3.0-54.0)
[2022-04-16 04:21] LABS: Allen Test Positive; Base Excess -1 mmol/L (-2 to +2); Bicarbonate 23.2 mmol/L (22-26); Blood Gas Specimen Type ART; O2 Delivery Device Cannula; PO2 93 mmHG (75-100); SITE L Radial; SO2 98 % (95-99); Total Carbon Dioxide 24 mmol/L; pH 7.44 (7.35-7.45)
--- NOTE | 2022-04-16 04:30 | RAD_ITS ---
EXAM: XR CHEST, 1 VIEW CLINICAL INDICATION: Neuro deficit, acute, stroke suspected TECHNIQUE: Frontal view of the chest. This report was created using [employer] report generation technology. COMPARISON: None. FINDINGS: LUNGS AND PLEURAL SPACES: Bibasilar airspace disease and large right effusion. No pneumothorax. HEART: Moderate cardiomegaly. MEDIASTINUM: Central airways and mediastinal contour are unremarkable. BONES/JOINTS: See above. SOFT TISSUES: Unremarkable. OTHER FINDINGS: Evidence of prior TIPS procedure. RAD/Chest 1 View IMPRESSION: Bibasilar airspace disease and large right effusion. Findings may indicate atelectasis or pneumonia. Electronically Signed: Reese Rodriguez MD at 4:57 EDT ,
--- NOTE | 2022-04-16 05:12 | RAD_ITS ---
EXAM: XR ABDOMEN, 1 VIEW CLINICAL INDICATION: NG Insertion TECHNIQUE: Frontal supine view of the abdomen/pelvis. This report was created using [employer] report generation technology. COMPARISON: None. FINDINGS: GASTROINTESTINAL TRACT: Unremarkable. Non-obstructive. No bowel or stomach distention. ORGANS: Unremarkable as visualized. No organomegaly. No abnormal calcifications. BONES/JOINTS: No acute pathology. SOFT TISSUES: No acute pathology. TUBES, LINES AND DEVICES: Enteric tube extending below the level of the GE junction into the stomach. Evidence of prior TIPS procedure. RAD/Abdomen Single View (Portable) IMPRESSION: Enteric tube extending below the level of the GE junction into the stomach. Electronically Signed: Reese Rodriguez MD at 5:52 EDT ,
[2022-04-16] MEDS: Lactulose 20 GM/30 ML UDC 200 GM RC (05:29)
[2022-04-16] MEDS: Labetalol (Prefilled) 20 MG/4 ML 10 MG IV (06:39)
--- NOTE | 2022-04-16 06:58 | PCM.PN.BLA ---
Progress Note Admission orders placed without seen patient
--- NOTE | 2022-04-16 08:09 | HP.PCM.HOS_ITS ---
HPI - General General Date of Admission: 04/16/22 Date of Service: 04/16/22 Chief Complaint: mental status change HPI Narrative ANA GARCÍA, is a 51 F who presents to the emergency room at [facility] after being brought in by her family due to mental status change. Patient was recently hospitalized in [facility] in [facility] due to encephalopathy brought on by end-stage liver disease and cirrhosis. Review of systems was not obtainable from the patient due to her comatose mental status, patient responds to painful stimuli by withdrawing but does not respond to verbal stimuli. Labs were obtained, CBC was remarkable for a white blood cell count of 3.9, hemoglobin was 10.3, patient's blood gas on 2 L was unremarkable, patient's CHEM panel was remarkable for creatinine of 1.74, BUN was 38, alkaline phosphatase was 181, and ammonia level was 183. She had a head CT which was unremarkable, chest x-ray performed showed bibasilar airspace disease with a large right pleural effusion, it was theorized that patient could have atelectasis or pneumonia. Patient was given 200 g of lactulose down her NG tube after it was inserted, she will be admitted to PCU for acute toxic metabolic encephalopathy, abnormal chest x-ray may be atelectasis, patient is afebrile and does not appear to be in respiratory distress. I will repeat patient's chest x-ray tomorrow and give the patient aerosol treatments. It appears in the patient's old lab work that she has chronic kidney disease. PENDING SALE TO [facility] Medical History (Updated 04/16/22 @ 07:[address] Alex Lizarraga MD) Acute kidney injury superimposed on chronic kidney disease Acute on chronic renal insufficiency Anemia Anemia Autoimmune hepatitis Bacteremia due to methicillin resistant Staphylococcus epidermidis Bipolar disorder CHI (closed head injury) Chronic pain Cirrhosis of liver Depression Diabetes mellitus Diabetes mellitus, type 2 Encephalopathy acute Reilly's thyroiditis Hepatic encephalopathy Hepatitis History of hypothyroidism Hypertension Kidney disease MRSA bacteremia Pancreatitis Pancytopenia Pancytopenia Pancytopenia Peripheral neuropathy Schizoaffective disorder Severe sepsis Splenomegaly Stage 3b chronic kidney disease (CKD) Home Medications magnesium oxide 400 mg PO BID 03/14/17 [History Last Taken 03/22/22] Xifaxan 550 mg PO BID 11/04/17 [History Last Taken 03/22/22] pantoprazole 40 mg PO DAILY 03/20/21 [History Last Taken 03/22/22] sertraline 50 mg PO DAILY 03/20/21 [History Last Taken 03/22/22] sucralfate [Carafate] 1 g PO ACHS 03/20/21 [History Last Taken 03/22/22] ursodiol 300 mg capsule 300 mg PO BID 04/25/21 [History Last Taken 03/22/22] carbamazepine 100 mg PO BID 04/29/21 [History Last Taken 03/22/22] zinc 50 mg PO DAILY 09/18/21 [History Last Taken 03/22/22] carvedilol 3.125 mg PO BID 03/23/22 [History Last Taken 03/22/22] levothyroxine 50 mcg PO DAILY 03/23/22 [History Last Taken 03/22/22] amlodipine 2.5 mg PO DAILY 04/16/22 [History Last Taken Unknown] benzonatate 100 mg PO TID PRN PRN 04/16/22 [History Last Taken Unknown] ergocalciferol (vitamin D2) 50,000 unit PO QODAY 04/16/22 [History Last Taken Un known] insulin degludec [Tresiba FlexTouch U-100] 10 unit SUBCUT DAILY 04/16/22 [History Last Taken Unknown] lactulose 60 ml PO TID 04/16/22 [History Last Taken Unknown] lurasidone 40 mg PO DAILY 04/16/22 [History Last Taken Unknown] pregabalin 75 mg PO BID 04/16/22 [History Last Taken Unknown] torsemide 20 mg PO DAILY 04/16/22 [History Last Taken Unknown] Allergy/AdvReac Type Severity Reaction Status Date / Time adhesive Allergy Rash Verified 04/16/22 03:29 escitalopram oxalate Allergy blindness Verified 04/16/22 03:29 [From Lexapro] Fish Containing Products Allergy Other Verified 04/16/22 03:29 gabapentin [From Neurontin] Allergy Alan Verified 04/16/22 03:29 Jez's Syndrome lamotrigine [From Lamictal] Allergy Blindness Verified 04/16/22 03:29 topiramate [From Topamax] Allergy Other Verified 04/16/22 03:29 Preservatives Allergy passed Uncoded 04/16/22 03:29 out, lungs deflated sour cream Allergy Anaphylaxis Uncoded 05/30/22 03:29 Family History Father CVA (cerebral vascular accident) Myocardial infarction Heart disease CAD (coronary artery disease) Grandmother CHF (congestive heart failure) Sister Hypertension Mother Heart disease Surgical History H/O: hysterectomy History of abdominal paracentesis (10/2019) History of appendectomy History of cholecystectomy S/P TIPS (transjugular intrahepatic portosystemic shunt) Social History household members: significant other housing: house Smoking Status: Never smoker alcohol intake: never details: Unknown substance use type: does not use ROS ROS Narrative Review of systems on this patient was unobtainable due to encephalopathy Vital Signs Vital Signs Vital Signs: 04/16/22 03:31 04/16/22 03:34 04/16/22 03:42 Temperature 97.3 F L Temperature Source Temporal Pulse Rate 84 82 Respiratory Rate 22 H 20 H Blood Pressure 205/96 H 230/107 H Blood Pressure Mean 132 148 Pulse Ox 94 99 92 Oxygen Delivery Method Nasal Cannula Nasal Cannula Non-Rebreather Oxygen Flow Rate (L/min) 2 4 15 04/16/22 04:03 04/16/22 04:22 04/16/22 06:00 Temperature 97.8 F 98.1 F Temperature Source Temporal Temporal Pulse Rate 74 81 Respiratory Rate 20 H 20 H Blood Pressure 205/96 H 213/87 H Blood Pressure Mean 132 129 Pulse Ox 98 94 Oxygen Delivery Method Nasal Cannula Room Air Oxygen Flow Rate (L/min) 2 04/16/22 06:40 04/16/22 07:13 04/16/22 07:48 Temperature 97.9 F 97.9 F Temperature Source Temporal Temporal Pulse Rate 77 64 63 Respiratory Rate 18 18 Blood Pressure 192/79 H 168/68 H 160/75 H Blood Pressure Mean 116 101 103 Pulse Ox 94 94 Oxygen Delivery Method Room Air Room Air Oxygen Flow Rate (L/min) Weight Weight: 91.5 kg Body Mass Index (BMI) 30.7 Physical Exam Const no apparent distress Constitutional Narrative: Patient is comatose, she does respond to painful stimuli by withdrawing, she does not respond to verbal stimuli and does not speak General Appearance: well kempt and well developed Orientation / Consciousness: awake, oriented to person, oriented to place and oriented to time HEENT normocephalic, head/scalp atraumatic and moist oral mucous membranes Eyes conjunctivae normal Neck nuchal rigidity, no JVD, thyroid normal and no carotid bruits General: trachea midline Resp Resp Narrative: Patient has expiratory rhonchi scattered bilaterally Auscultation: rhonchi throughout; Negative for rales or wheezes Cardio regular rate, regular rhythm, S1 normal heart sound, S2 normal heart sound, no murmurs, no rub and no gallops GI normal to inspection, nondistended, normoactive bowel sounds, soft to palpation, non-tender and non-distended Extremity normal to inspection and no clubbing, cyanosis or edema Skin no rashes or lesions noted General Skin Exam: no breakdown Neuro CN's II-XII intact bilaterally and no sensory deficits noted Neuro Narrative: Patient is comatose, she responds to painful stimuli by withdrawing, she does not speak, she does not respond to verbal command Psych Psych Narrative: Patient is comatose, she does not respond to verbal commands, she does not speak Results Lab / Micro Data Result Diagrams: 04/16/22 03:40 04/16/22 03:40 Labs: Laboratory Results - last 24 hr 04/16/22 03:40: WBC 3.9 L, RBC 3.37 L, Hgb 10.3 L, Hct 31.0 L, MCV 92.0, MCH 30.6, MCHC 33.2, RDW Std Deviation 54.1 H, RDW Coeff of Valentina 16.2 H, Plt Count 87 L, MPV 10.2, Immature Gran % (Auto) 0.300, Neut % (Auto) 66.9, Lymph % (Auto) 18.8 L, [place] % (Auto) 7.9, Eos % (Auto) 4.3, Baso % (Auto) 1.8 H, Absolute Neuts (auto) 2.6, Absolute Lymphs (auto) 0.74 L, Nucleated RBC % 0 04/16/22 03:40: PT 15.6 H, INR 1.3, APTT 31.5 04/16/22 03:40: Sodium 143, Potassium 3.9, Chloride 114 H, Carbon Dioxide 22.0, Anion Gap 7, BUN 38 H, Creatinine 1.74 H, Estim Creat Clear Calc 37.72, Est GFR (MDRD) Af Amer 39 L, Est GFR (MDRD) Non-Af 33 L, BUN/Creatinine Ratio 21.8 H, Glucose 95, Calcium 8.6, Total Bilirubin 1.00, AST 51 H, ALT 33, Alkaline Phosphatase 181 H, Troponin I High Sens 16, Total Protein 7.5, Albumin 3.4, Globulin 4.1, Albumin/Globulin Ratio 0.8 L 04/16/22 03:55: Ammonia 183.0 H ABG Data ABG results: ABG 04/16/22 04:15 Specimen Type ART Sample Site L Radial pH 7.44 Bicarbonate Actual 23.2 Total CO2 24 Base Excess -1 O2 Saturation 98 ABG pCO2 34.0 L ABG pO2 93 Daniel Test Positive O2 Delivery Device Cannula Liter Flow 2.[address] 04/16/22 03:21 IMPRESSION: Negative head/brain CT without intravenous contrast. Electronically Signed: Reese Rodriguez MD at 3:39 EDT Reading Location ID and State: [address] [place] [address] Tel , Service support , ADDENDUM: 04/16/22 0347 IMPRESSION: Negative head/brain CT without intravenous contrast. N.B. : The above Results were Read Back by Reese Rodriguez MD to Alex Lizarraga MD, and understanding confirmed on 04/16/2022 03:40:21 (ET). Electronically Signed: Reese Rodriguez MD at 3:39 EDT Reading Location ID and State: [facility] / [place] Tel , Service support , Chest X-Ray 04/16/22 04:30 IMPRESSION: Bibasilar airspace disease and large right effusion. Findings may indicate atelectasis or pneumonia. Electronically Signed: Reese Rodriguez MD at 4:57 EDT Reading Location ID and State: [facility] / [place] Tel , Service support , KUB X-Ray 04/16/22 05:12 IMPRESSION: Enteric tube extending below the level of the GE junction into the stomach. Electronically Signed: Reese Rodriguez MD at 5:52 EDT , Assessment & Plan Assessment/Plan (1) Hyperammonemia: PLAN: 1. 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 Patient is currently on nasal cannula oxygen #6 type 2 diabetes-blood sugars will be monitored #7 schizoaffective disorder-complicates care, course, and prognosis Charges/Coding Visit Charges Inpatient E&M: 59435 Init Hosp L3
[2022-04-16] MEDS: Magnesium Chloride 64 MG Delay Rel.Tablet 128 MG PO ×2 (10:42→21:09)
[2022-04-16] MEDS: carBAMazepine 200 MG Tablet 100 MG PO (10:42)
[2022-04-16] MEDS: Sertraline 50 MG Tablet PO (10:42)
[2022-04-16] MEDS: Carvedilol 3.125 MG TABLET PO (10:42)
[2022-04-16] MEDS: LURASIDONE HCL 40 MG TABLET PO (10:42)
[2022-04-16] MEDS: amLODIPine 2.5 MG Tablet PO (10:42)
[2022-04-16] MEDS: Furosemide 40 MG/4 ML Vial IV ×2 (10:42→16:15)
[2022-04-16] MEDS: Levothyroxine 50 MCG Tablet PO (10:42)
[2022-04-16] MEDS: hydrALAZINE 20 MG/ML Vial 5 MG IV ×3 (10:42→20:18)
[2022-04-16] MEDS: 0.9% Saline Lock 10 ML Syringe IV ×3 (10:51→20:24)
[2022-04-16] MEDS: Albuterol 2.5 MG/3 ML VIAL.NEB. INHALATION ×2 (13:24→19:33)
[2022-04-16] MEDS: Lactulose 20 GM/30 ML UDC 40 GM NG ×2 (14:07→21:08)
--- NOTE | 2022-04-16 14:23 | US_ITS ---
PROCEDURE: ULTRASOUND GUIDED THORACENTESIS. DATE: 04/17/2022. INDICATION: Female, 51 years old. Right pleural effusion. PHYSICIAN: Dash Shin M.D. PROCEDURE: The risks, benefits, and alternatives to the procedure were explained to the patient. The specific risks of bleeding, infection, and pneumothorax requiring chest tube insertion were discussed and accepted. Written informed consent was obtained. Ultrasonographic evaluation of the right lower pleural space was carried out. An adequate pocket was identified. The patient was placed in the sitting, upright position. The overlying skin was prepped and draped in sterile fashion. 1% lidocaine was administered subcutaneously for local anesthesia. Under ultrasound guidance, a 5 Mosotho thoracentesis needle/catheter system was advanced into the right posterior lower pleural fluid collection. Approximately 2050 mL of lito-colored fluid was drained. The catheter was removed, and a sterile dressing was applied. The patient tolerated the procedure well. A chest x-ray was ordered. US/Thoracentesis W US IMPRESSION: Ultrasound-guided right thoracentesis. Electronically Signed: Dash Shin MD at 14:44 EDT ,
[2022-04-16] MEDS: Carvedilol 3.125 MG TABLET NG (21:08)
[2022-04-16] MEDS: carBAMazepine 200 MG/10 ML UDC 100 MG NG (21:14)
[2022-04-17] VITALS (22 sets, daily range): BP systolic 145–182; BP diastolic 46–82; PULSE 65–77; RESP 16–21; TEMP 36.3–37.2; O2SAT 93–98
[2022-04-17] MEDS: Albuterol 2.5 MG/3 ML VIAL.NEB. INHALATION ×3 (01:36→19:15)
[2022-04-17] MEDS: 0.9% Saline Lock 10 ML Syringe IV ×7 (03:48→21:26)
[2022-04-17] MEDS: hydrALAZINE 20 MG/ML Vial 5 MG IV ×3 (04:14→14:26)
[2022-04-17 04:37] LABS: Absolute Lymphocyte Count 0.51 X10^3/uL (0.83-4.51); Absolute Neutrophil Count 2.2 X10^3/uL (2.0-7.7); Basophil# 0.04 X10^3/uL; Basophil% 1.3 % (0-1); Eosinophil# 0.08 X10^3/uL; Eosinophils% 2.5 % (0-5); Hematocrit 24.9 % (37-47); Lymphocyte # 0.51 X10^3/ul (0.83-4.51); Lymphocyte % 16.1 % (19-41); Mean Corp Hgb Conc 32.1 g/dL (32-36); Mean Corpuscular Hgb 30.4 pg (27.0-32.0); Mean Corpuscular Volume 94.7 fL (81-99); Mean Platelet Vol. 10.3 fl (6.2-12.0); Monocyte# 0.34 X10^3/uL; Monocyte% 10.7 % (0-10); NRBC Flagged by Analyzer 0 % (0-5); Neutrophil % 69.4 % (47-70); POSITIVE COUNT YES; POSITIVE DIFFERENTIAL YES; Platelet Count 64 K/mm3 (150-450); RBC Distribution Width CV 16.5 % (11.6-14.6); RBC Distribution Width SD 56.7 fl (35.1-43.9); Red Blood Count 2.63 M/mm3 (4.2-5.4); White Blood Count 3.2 K/mm3 (4.4-11.0)
[2022-04-17 04:39] LABS: Differential Indicated SCAN CRITERIA MET
[2022-04-17 04:59] LABS: Anion Gap 8 (5-15); BUN 36 mg/dL (7-18); BUN/Creat Ratio 18.7 RATIO (10-20); Calcium,Total 8.5 mg/dL (8.5-10.1); Chloride 116 mmol/L (98-107); Creatinine, Serum 1.93 mg/dL (0.55-1.02); EST Glomerular Filtration Rate 29 mL/min (>60); Est Glom Filt Rate - Afr Amer 35 mL/min (>60); Estimated Creatinine Clearance 34.01 ml/min; Glucose 102 mg/dL (74-106); Potassium 3.2 mmol/L (3.5-5.1); Sodium Level 146 mmol/L (136-145)
[2022-04-17 05:02] LABS: Anisocytosis 1+; Platelet Estimate MOD DEC (ADEQ)
[2022-04-17] MEDS: Lactulose 20 GM/30 ML UDC 40 GM NG (05:02)
[2022-04-17] MEDS: Levothyroxine 50 MCG Tablet NG (05:02)
[2022-04-17] MEDS: Potassium Chloride Oral Soln 20 MEQ/15 ML UDC PO (05:45)
[2022-04-17] MEDS: Ondansetron 4 MG/2 ML Vial IV (09:25)
--- NOTE | 2022-04-17 09:45 | NURSING ---
NG discontinued per MD orders
[2022-04-17] MEDS: Furosemide 40 MG/4 ML Vial IV ×2 (11:03→16:59)
[2022-04-17] MEDS: Lidocaine 2% (20 ml mdv) 20 ML Vial INFILT (13:30)
--- NOTE | 2022-04-17 13:40 | RAD_ITS ---
STUDY: X-RAY CHEST REASON FOR EXAM: Female, 51 years old. Post thor ante sis TECHNIQUE: AP inspiration and expiration views. COMPARISON: Comparison is made with prior study dated 04/16/2022. FINDINGS: The patient is status post right thoracocentesis. There is no evidence of pneumothorax. RAD/Chest Insp/Exp 2 View IMPRESSION: No evidence of pneumothorax on the immediate post right thoracentesis. Electronically Signed: Dash Shin MD at 14:38 EDT ,
[2022-04-17] MEDS: Lactulose 20 GM/30 ML UDC 40 GM PO ×2 (15:27→21:28)
[2022-04-17] MEDS: Carvedilol 3.125 MG TABLET PO ×2 (15:27→21:28)
[2022-04-17] MEDS: amLODIPine 2.5 MG Tablet PO (15:27)
[2022-04-17] MEDS: Sertraline 50 MG Tablet PO (15:27)
[2022-04-17] MEDS: LURASIDONE HCL 40 MG TABLET PO (15:28)
--- NOTE | 2022-04-17 15:35 | CASEMGMT ---
SW met with patient and her significant other. Patient is more alert. SW asked patient about her discharge plan. Patient said she is going home. SW asked if she thinks she will need to go back to [facility] or another fpc. They both said no [facility] as they did not take very good care of patient. Patient and her significant other asked about diapers and a hospital bed. SW told them SW can check with the nurse case management assistant to see if she would qualify for a hospital bed. Cora MARIEE
--- NOTE | 2022-04-17 16:30 | CASEMGMT ---
Addendum entered by Wyatt Ramírez 04/18/22 11:04: Late entry for 04/17/22. Pt is active w/[facility]. Adrienne @ Palliative notified of pt admission to [facility]. Original Note: RN CM MILL ATTENDANT CM to room to meet with patient for initial transition planning/care coordination assessment. TAMIKO MELLO introduced self and role at [facility].? Pt voices understanding and consents to assessment at this time.? Pt resting in bed in no distress at this time.?Sig other, Sj, @ bedside. Pt agreeable to him being present during assessment. Pt is A/O at this time. The following information obtained from both pt and Sj.?? Care providers, pharmacy, and demographics verified/updated at this time. PCP: Dr Canchola Specialists: Dr Galarza-cardiology, Dr Frye- GI/Hepatology @ [facility], Dr David García-psychiatry, Dr Juan Moreno--psychologist @ [facility]. Pt has appt scheduled @ [facility] on 04/19 to assess for liver transplant eligibility. Preferred Pharmacy: [facility] Retail Insurance: [employer] Prescription Benefit:? Yes Living Will/HPOA:? Has both LW and HPOA, who is her sister, James Nichole LNOK: Sister, James. Sig other, Sj Living Arrangements: Lives w/sig other, Sj, and pt's 17-yr-old w/autism. They live in a 2-story home w/a basement. Sj states is in the process of getting home set up for [employer]. 2 steps to enter. Pt states usually able to bath self, but sometimes Sj assists w/dressing. Sj does all home mgmt tasks and helps pt w/medications and appts. [facility]/CM: Pt has waiver services through [facility]. CM is Josefa Bates. Pt gets 14 [employer] meals a week. Transportation: Sj DME: ? States has the following DME:? shower chair, BSC, grab bars, hand held shower, several walkers, rollator, O2 @ 2l/m as needed. They are not sure what company pt gets oxygen through. They think it may be [employer]. Portable O2 tanks. Pt and Sj state they are interested in getting a hospital bed, lift chair, and pulse ox. They were instructed to notify PCP about interest in getting hospital bed and lift chair. Pulse ox to be supplied to pt @ discharge from [facility]. HHC/SNF: Hx of [facility] at beg of March this year. [facility]. Pt and Sj state they [facility] and would like to resume services. They state since pt was @ [facility] and then went to [facility], she has not been in her home but for only a few days this month. Call placed to [facility]. Per staff @ [facility], pt has been placed on hold and they are not willing to take pt back. Pt and Sj made aware. Pt states she may be agreeable to going to a different SNF other than [facility], but she would prefer to go home w/[facility]. PT/OT ordered. CM to f/u w/pt tomorrow after therapy eval to discuss discharge planning. PLAN: ?TBD. PT/OT evals pending. Malou VILLALOBOS RN CM
--- NOTE | 2022-04-17 19:49 | PN.HOSP_ITS ---
Subjective Subjective Patient was seen and examined today, her NG tube was removed today, patient was able to eat without difficulty. Patient is alert and appropriate. I talked with her and her significant other who was in the room today. Patient does have an appointment with transplant surgeon on , there was some discussion with case management today that the patient's home environment might be unsafe but the patient's significant other explained to me that when this evaluation was done by home care the first part of March of this year, the patient has just returned from the hospital and was in a weakened state and she fell just inside her front door of her house and the patient's significant other was not able to get her off the floor and at this time home care came to visit the patient. Patient is sometimes noncompliant with taking her lactulose, she understands that she needs to be compliant without fail. I started the patient's oral medications today for her blood pressure, I have elected to continue her Lasix today also, BUN was slightly elevated today. Potassium was also slightly low. Objective Data Objective Data Vital Signs: Vital Signs Temp Pulse Resp BP Pulse Ox 98.5 F 72 19 H 150/62 H 94 04/17/22 16:54 04/17/22 19:15 04/17/22 19:15 04/17/22 16:54 04/17/22 16:54 Oxygen Flow Rate (L/min) 2 Oxygen Delivery Method [5] Room Air Oxygen Delivery Method [4] Room Air Oxygen Delivery Method [3] Room Air Oxygen Delivery Method [2] Room Air Oxygen Delivery Method [1 ( Room Air Initial Baseline)] Oxygen Delivery Method Room Air Weight: 95.6 kg Body Mass Index (BMI) 31.9 Intake & Output: Intake and Output for Last 24 Hours 04/15/22 04/16/22 04/17/22 23:59 23:59 23:59 Intake Total 664 / 664 470 / 470 Output Total 1050 / 1050 4600 / 4600 Balance -386 / -386 -4130 / -4130 Lab / Micro Data Result Diagrams: 04/18/22 13:21 04/18/22 06:43 Labs: Laboratory Results - last 24 hr 04/17/22 04:27: WBC 3.2 L, RBC 2.63 L, Hgb 8.0 L, Hct 24.9 L, MCV 94.7, MCH 30.4, MCHC 32.1, RDW Std Deviation 56.7 H, RDW Coeff of Valentina 16.5 H, Plt Count 64 L, MPV 10.3, Immature Gran % (Auto) 0.000, Neut % (Auto) 69.4, Lymph % (Auto) 16.1 L, [place] % (Auto) 10.7 H, Eos % (Auto) 2.5, Baso % (Auto) 1.3 H, Absolute Neuts (auto) 2.2, Absolute Lymphs (auto) 0.51 L, Nucleated RBC % 0, Diff Path Review May foll, Platelet Estimate MOD DEC, Anisocytosis 1+ 04/17/22 04:27: Sodium 146 H, Potassium 3.2 L, Chloride 116 H, Carbon Dioxide 22.0, Anion Gap 8, BUN 36 H, Creatinine 1.93 H, Estim Creat Clear Calc 34.01, Est GFR (MDRD) Af Amer 35 L, Est GFR (MDRD) Non-Af 29 L, BUN/Creatinine Ratio 18.7, Glucose 102, Calcium 8.5 04/17/22 04:27: Ammonia 47.0 H Radiography Diagnostic Testing: Radiology Impression Thoracentesis Ultrasound 04/16/22 14:23 IMPRESSION: Ultrasound-guided right thoracentesis. Electronically Signed: Dash Shin MD at 14:44 EDT , Chest X-Ray 04/17/22 13:40 IMPRESSION: No evidence of pneumothorax on the immediate post right thoracentesis. Electronically Signed: Dash Shin MD at 14:38 EDT , Physical Exam Const alert, oriented x3 and no apparent distress General Appearance: cooperative, well kempt and well developed Orientation / Consciousness: awake, oriented to person, oriented to place and oriented to time HEENT normocephalic and moist oral mucous membranes Head and Scalp: normocephalic Eyes PERRL, EOMs intact bilaterally and conjunctivae normal Neck nuchal rigidity, supple, no JVD, thyroid normal and no carotid bruits General: trachea midline Resp normal respiratory effort, no retractions, no use of accessory muscles and clear to auscultation bilaterally Auscultation: Negative for rales, rhonchi or wheezes Cardio regular rate, regular rhythm, S1 normal heart sound, S2 normal heart sound, no murmurs, no rub and no gallops GI normal to inspection, nondistended, normoactive bowel sounds, soft to palpation, non-tender and non-distended Extremity no clubbing, cyanosis or edema Skin no rashes or lesions noted General Skin Exam: no breakdown Neuro oriented x3, CN's II-XII intact bilaterally, no focal motor deficits and no sensory deficits noted Sensorium / Orientation: awake and alert Speech: speech normal Psych Psych Narrative: Patient has flat affect Assessment & Plan Assessment/Plan (1) Mental status, decreased: (2) Hyperammonemia: PLAN: 1. Acute recurrent toxic and metabolic encephalopathy secondary to end-stage liver disease-continue present care at this time, anticipate the patient will be able to be discharged tomorrow, she needs to follow-up with the transplant surgeon this week and I think it is crucial that she make this appointment. 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 Patient underwent thoracentesis on 04/16/2022 #6 type 2 diabetes-blood sugars will be monitored #7 schizoaffective disorder-complicates care, course, and prognosis Charges/Coding Visit Charges Inpatient E&M: 85879 Subs Hosp L2
[2022-04-17] MEDS: Potassium Chloride Oral Tablet 20 MEQ 40 MEQ PO (21:17)
[2022-04-17] MEDS: Magnesium Chloride 64 MG Delay Rel.Tablet 128 MG PO (21:28)
[2022-04-17] MEDS: carBAMazepine 200 MG/10 ML UDC 100 MG PO (22:22)
[2022-04-17 22:56] LABS: Bedside Glucose 130 mg/dL (74-106)
[2022-04-18] VITALS (9 sets, daily range): BP systolic 149–153; BP diastolic 70–78; PULSE 63–70; RESP 15–20; TEMP 36.6–36.8; O2SAT 94
[2022-04-18] MEDS: Albuterol 2.5 MG/3 ML VIAL.NEB. INHALATION ×3 (01:05→13:38)
[2022-04-18] MEDS: Lactulose 20 GM/30 ML UDC 40 GM PO (05:40)
[2022-04-18] MEDS: Levothyroxine 50 MCG Tablet PO (05:40)
[2022-04-18 06:51] LABS: Bedside Glucose 178 mg/dL (74-106)
[2022-04-18 06:54] LABS: Absolute Lymphocyte Count 0.47 X10^3/uL (0.83-4.51); Basophil# 0.03 X10^3/uL; Eosinophil# 0.09 X10^3/uL; Eosinophils% 3.1 % (0-5); Hematocrit 26.3 % (37-47); Hemoglobin 8.3 g/dL (12.0-15.0); Lymphocyte # 0.47 X10^3/ul (0.83-4.51); Lymphocyte % 16.4 % (19-41); Mean Corp Hgb Conc 31.6 g/dL (32-36); Mean Corpuscular Hgb 30.5 pg (27.0-32.0); Mean Corpuscular Volume 96.7 fL (81-99); Mean Platelet Vol. 11.7 fl (6.2-12.0); Monocyte# 0.23 X10^3/uL; NRBC Flagged by Analyzer 0 % (0-5); Neutrophil # 2.04 X10^3/uL (2.7-7.7); Neutrophil % 71.5 % (47-70); POSITIVE COUNT YES; POSITIVE DIFFERENTIAL YES; Platelet Count 29 K/mm3 (150-450); RBC Distribution Width CV 15.9 % (11.6-14.6); RBC Distribution Width SD 56.3 fl (35.1-43.9); Red Blood Count 2.72 M/mm3 (4.2-5.4); White Blood Count 2.9 K/mm3 (4.4-11.0)
[2022-04-18 06:55] LABS: Differential Indicated SCAN CRITERIA MET
[2022-04-18 07:05] LABS: Anisocytosis 1+; Platelet Estimate MKD DEC (ADEQ)
[2022-04-18 07:20] LABS: Anion Gap 5 (5-15); BUN 34 mg/dL (7-18); BUN/Creat Ratio 18.2 RATIO (10-20); Calcium,Total 8.1 mg/dL (8.5-10.1); Chloride 113 mmol/L (98-107); Creatinine, Serum 1.87 mg/dL (0.55-1.02); EST Glomerular Filtration Rate 30 mL/min (>60); Est Glom Filt Rate - Afr Amer 36 mL/min (>60); Glucose 182 mg/dL (74-106); Potassium 3.8 mmol/L (3.5-5.1); Sodium Level 142 mmol/L (136-145)
[2022-04-18] MEDS: Potassium Chloride Oral Tablet 20 MEQ PO (09:36)
[2022-04-18] MEDS: Magnesium Chloride 64 MG Delay Rel.Tablet 128 MG PO (09:43)
[2022-04-18] MEDS: Furosemide 20 MG/2 ML VIAL IV (09:44)
[2022-04-18] MEDS: Sertraline 50 MG Tablet PO (09:44)
[2022-04-18] MEDS: amLODIPine 2.5 MG Tablet PO (09:44)
[2022-04-18] MEDS: 0.9% Saline Lock 10 ML Syringe IV (09:45)
[2022-04-18] MEDS: carBAMazepine 200 MG/10 ML UDC 100 MG PO (09:46)
--- NOTE | 2022-04-18 11:05 | CASEMGMT ---
Addendum entered by Wyatt Ramírez 04/18/22 13:53: Pt requested info for Dr Campa, nephrology. Pt provided w/rac card/contact info. She voices appreciation. Discussed [facility] for f/u after [facility] completed. Pt interested and agreeable to referral. Order placed. E-mail to Jas @ [facility] to notify of referral. Addendum entered by Wyatt Ramírez 04/18/22 12:39: Pulse ox placed w/pt's chart, for RN to give to pt and instruct on use @ discharge. Addendum entered by Wyatt Ramírez 04/18/22 11:32: Call received back from Ashlee @ [facility]. They are able to accept pt. Plans for SOC are for tomorrow or Saturday, depending on what they can work out around pt's upcoming appts. Pt made aware. Original Note: TAMIKO MELLO NOTE: Pt wishes to discharge home. PT/OT evals have been completed. Per therapy, pt safe to discharge home. TAMIKO MELLO to room to talk w/pt. She states would like [facility]. Pt was provided with list of [facility] providers including quality and resource use data and consistent with the patient's preferred geographic region, medical needs, and insurance network. The pt's preferred provider is [facility]. 2nd choice is [facility]. Pt states would like an aide, if available. Call placed to Ashlee @ [facility] and referral made. She was notified pt is discharging home today. Pt also informed TAMIKO MELLO that Sj was incorrect on appts coming up. She states she has an appt tomorrow @ Dr Canchola's office for sugar appt. The appt for liver transplant assessment is on Saturday. Call was placed to [facility] and spoke w/Manuel, as pt and Sj told TAMIKO MELLO yesterday they thought pt gets her home oxygen through [employer]. Manuel states they do not supply oxygen for pt. Pt made aware. She states, Well then I don't know where we get it from. Pt denies other discharge planning needs at this time. D/C Plan: Home w/[facility]. Awaiting response from [facility]. Malou VILLALOBOS RN, CM
[2022-04-18] MEDS: LURASIDONE HCL 40 MG TABLET PO (11:09)
[2022-04-18] MEDS: Carvedilol 3.125 MG TABLET PO (11:09)
--- NOTE | 2022-04-18 11:52 | PCM.DC ---
Discharge Instructions Diet Discharge Diet: 1800 Calorie Control Diet Activity Discharge Activity: Return to Normal Activity Weight Bearing Status: Full weight bearing Follow Up Care Test Results: Test results from this visit will be discussed in further detail at your follow-up appointment, if applicable. Discharge Plan Admission Admit Date/Time: 04/16/22 06:50 Primary Reason for Your Visit: hepatic encephalopathy Attending Provider: David Benton Primary Care Provider: Janay Canchola Instructions Additional Instructions / Restrictions: Follow up with your transplant physician Discharge Orders/Prescriptions Prescriptions: New lactulose 20 gram/30 mL Solution 40 g PO TID Qty: 0 RF: 0 spironolactone 50 mg tablet 50 mg PO DAILY Qty: 30 RF: 0 Continued magnesium oxide 400 MG tablet 400 mg PO BID RF: 0 Xifaxan 550 MG tablet 550 mg PO BID RF: 0 sucralfate [Carafate] 1 gram Tablet 1 g PO ACHS RF: 0 pantoprazole 40 mg Tablet,Delayed Release (Dr/Ec) 40 mg PO DAILY RF: 0 sertraline 50 mg Tablet 50 mg PO DAILY RF: 0 ursodiol 300 mg capsule 300 mg PO BID RF: 0 carbamazepine 100 mg Tablet Extended Release 12 Hr 100 mg PO BID RF: 0 zinc 50 mg Tablet 50 mg PO DAILY RF: 0 carvedilol 3.125 mg tablet 3.125 mg PO BID RF: 0 levothyroxine 50 mcg tablet 50 mcg PO DAILY RF: 0 ergocalciferol (vitamin D2) 50,000 unit Tablet 50,000 unit PO QODAY RF: 0 benzonatate 100 mg capsule 100 mg PO TID PRN PRN (Reason: Cough) RF: 0 amlodipine 10 mg tablet 2.5 mg PO DAILY RF: 0 torsemide 20 mg Tablet 10 mg PO DAILY RF: 0 lurasidone 40 mg Tablet 40 mg PO DAILY RF: 0 Tresiba FlexTouch U-100 100 unit/mL (3 mL) Insulin Pen 10 unit SUBCUT DAILY RF: 0 Discontinued lactulose 20 gram/30 mL solution 60 ml PO TID RF: 0 pregabalin 75 mg capsule 75 mg PO BID RF: 0 Referrals / Follow Up: Janay Canchola MD [Primary Care Provider] - Within 1 Week Disposition Disposition (needs filled in before D/C Order can be placed): Home Health Service
[2022-04-18 13:33] LABS: Absolute Lymphocyte Count 0.59 X10^3/uL (0.83-4.51); Basophil# 0.06 X10^3/uL; Basophil% 1.4 % (0-1); Eosinophil# 0.17 X10^3/uL; Hematocrit 27.3 % (37-47); Hemoglobin 9.1 g/dL (12.0-15.0); Lymphocyte # 0.59 X10^3/ul (0.83-4.51); Mean Corp Hgb Conc 33.3 g/dL (32-36); Mean Corpuscular Volume 92.9 fL (81-99); Mean Platelet Vol. 10.3 fl (6.2-12.0); Monocyte# 0.37 X10^3/uL; Monocyte% 8.8 % (0-10); NRBC Flagged by Analyzer 0 % (0-5); Neutrophil % 71.3 % (47-70); POSITIVE COUNT YES; POSITIVE DIFFERENTIAL YES; Platelet Count 75 K/mm3 (150-450); RBC Distribution Width CV 15.9 % (11.6-14.6); RBC Distribution Width SD 54.1 fl (35.1-43.9); Red Blood Count 2.94 M/mm3 (4.2-5.4); White Blood Count 4.2 K/mm3 (4.4-11.0)
[2022-04-18 13:36] LABS: Differential Indicated SCAN CRITERIA MET
[2022-04-18 14:07] LABS: Platelet Estimate MOD DEC (ADEQ)
--- NOTE | 2022-04-18 21:16 | PCM.DC.SUM ---
Providers Date of Admission: 04/16/22 Date of Discharge: 04/18/22 Primary Care Physician: Dr. Janay Canchola MD Reason For Visit: ACUTE HEPATIC ENCEPHALOPATHY Diagnosis Discharge Diagnosis (1) Hyperammonemia: Status: Acute Code(s): E72.20 - Disorder of urea cycle metabolism, unspecified Plan: 1. 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 #5 bibasilar atelectasis with right pleural effusion secondary to liver cirrhosis #6 type 2 diabetes #7 schizoaffective disorder #8 anemia of chronic liver disease #9 thrombocytopenia secondary to chronic liver disease Medications at Discharge Home Medications magnesium oxide 400 mg PO BID 03/14/17 Xifaxan 550 mg PO BID 11/04/17 pantoprazole 40 mg PO DAILY 03/20/21 sertraline 50 mg PO DAILY 03/20/21 sucralfate [Carafate] 1 g PO ACHS 03/20/21 ursodiol 300 mg capsule 300 mg PO BID 04/25/21 carbamazepine 100 mg PO BID 04/29/21 zinc 50 mg PO DAILY 09/18/21 carvedilol 3.125 mg PO BID 03/23/22 levothyroxine 50 mcg PO DAILY 03/23/22 Tresiba FlexTouch U-100 10 unit SUBCUT DAILY 04/16/22 amlodipine 2.5 mg PO DAILY 04/16/22 benzonatate 100 mg PO TID PRN PRN 04/16/22 ergocalciferol (vitamin D2) 50,000 unit PO QODAY 04/16/22 lurasidone 40 mg PO DAILY 04/16/22 torsemide 10 mg PO DAILY 04/16/22 lactulose 40 g PO TID #0 ml 04/18/22 spironolactone 50 mg PO DAILY #30 tab 04/18/22 Hospital Course Operations None Procedures Thoracentesis (Right-sided) Summary of Care Provided Minutes Spent on Discharge: 32 Hospital Course: 51-year-old white female was seen in the emergency room at [facility] with a chief complaint of mental status change, she was brought in by her family. Patient has a long history of chronic liver disease with autoimmune cirrhosis. Patient had recently been released from [facility] due to encephalopathy brought on by liver disease. On admission, patient's ammonia level was noted to be 183, creatinine was 1.74, BUN was 38. Patient was minimally responsive to pain and was not able to give any verbal response, she did not respond to verbal commands. NG tube was inserted in the emergency room, lactulose was given down the NG tube as she was admitted to PCU. Over the next 48 hours patient became alert, she underwent a right thoracentesis secondary to chronic right pleural effusion from liver disease. On 04/18/2022, patient was seen and examined: On examination she appeared in good health and spirits, she does not appear to be in any distress. Vital signs as documented. Skin warm and dry and without overt rashes. Neck without JVD, thyroid appears normal, trachea is midline, neck is supple. Lungs clear, normal air movement was noted. Heart exam notable for regular rhythm, normal sounds and absence of murmurs, rubs or gallops. Abdomen unremarkable and without evidence of organomegaly, masses, or abdominal aortic enlargement, bowel sounds are present in all 4 quadrants, no abdominal tenderness was noted. Extremities nonedematous, no cyanosis was noted, no clubbing was noted. Neuro: Cranial nerves II through XII are grossly intact, no focal motor deficits were noted, sensation to light touch and pinprick is intact, motor exam 5/5 throughout. Psych: Patient is alert and oriented x3, she does not appear anxious or depressed, she does not appear agitated. Patient was felt to be stable for discharge on 04/18/2022, she has a follow-up appointment this week with her hepatic transplant physician. Weight / BMI Weight Weight: 95.6 kg Body Mass Index (BMI) 31.9 ABG / Lab / Microbiology Data Result Diagrams: 04/18/22 13:21 04/18/22 06:43 Laboratory: Laboratory Results - last 24 hr 04/17/22 21:25: POC Glucose 130 H 04/18/22 06:36: POC Glucose 178 H 04/18/22 06:43: WBC 2.9 L, RBC 2.72 L, Hgb 8.3 L, Hct 26.3 L, MCV 96.7, MCH 30.5, MCHC 31.6 L, RDW Std Deviation 56.3 H, RDW Coeff of Valentina 15.9 H, Plt Count 29 L*, MPV 11.7, Immature Gran % (Auto) 0.000, Neut % (Auto) 71.5 H, Lymph % (Auto) 16.4 L, [place] % (Auto) 8.0, Eos % (Auto) 3.1, Baso % (Auto) 1.0, Absolute Neuts (auto) 2.0, Absolute Lymphs (auto) 0.47 L, Nucleated RBC % 0, Diff Path Review March mitali, Platelet Estimate MKD DEC, Anisocytosis 1+ 04/18/22 06:43: Sodium 142, Potassium 3.8, Chloride 113 H, Carbon Dioxide 24.0, Anion Gap 5, BUN 34 H, Creatinine 1.87 H, Estim Creat Clear Calc 35.10, Est GFR (MDRD) Af Amer 36 L, Est GFR (MDRD) Non-Af 30 L, BUN/Creatinine Ratio 18.2, Glucose 182 H, Calcium 8.1 L 04/18/22 13:21: WBC 4.2 L, RBC 2.94 L, Hgb 9.1 L, Hct 27.3 L, MCV 92.9, MCH 31.0, MCHC 33.3 D, RDW Std Deviation 54.1 H, RDW Coeff of Valentina 15.9 H, Plt Count 75 L, MPV 10.3, Immature Gran % (Auto) 0.500, Neut % (Auto) 71.3 H, Lymph % (Auto) 14.0 L, [place] % (Auto) 8.8, Eos % (Auto) 4.0, Baso % (Auto) 1.4 H, Absolute Neuts (auto) 3.0, Absolute Lymphs (auto) 0.59 L, Nucleated RBC % 0, Diff Path Review March mitali, Platelet Estimate MOD DEC D/C Instructions Discharge Diet: 1800 Calorie Control Diet Weight Bearing Status: Full weight bearing Meaningful Use Info Meaningful Use Diagnoses (Choose all that apply): None applicable Discharge Plan Admission Admit Date/Time: 04/16/22 06:50 Primary Reason for Your Visit: hepatic encephalopathy Attending Provider: David Benton Primary Care Provider: Janay Canchola Instructions Additional Instructions / Restrictions: Follow up with your transplant physician Discharge Orders/Prescriptions Prescriptions: New lactulose 20 gram/30 mL Solution 40 g PO TID Qty: 0 RF: 0 spironolactone 50 mg tablet 50 mg PO DAILY Qty: 30 RF: 0 Continued magnesium oxide 400 MG tablet 400 mg PO BID RF: 0 Xifaxan 550 MG tablet 550 mg PO BID RF: 0 sucralfate [Carafate] 1 gram Tablet 1 g PO ACHS RF: 0 pantoprazole 40 mg Tablet,Delayed Release (Dr/Ec) 40 mg PO DAILY RF: 0 sertraline 50 mg Tablet 50 mg PO DAILY RF: 0 ursodiol 300 mg capsule 300 mg PO BID RF: 0 carbamazepine 100 mg Tablet Extended Release 12 Hr 100 mg PO BID RF: 0 zinc 50 mg Tablet 50 mg PO DAILY RF: 0 carvedilol 3.125 mg tablet 3.125 mg PO BID RF: 0 levothyroxine 50 mcg tablet 50 mcg PO DAILY RF: 0 ergocalciferol (vitamin D2) 50,000 unit Tablet 50,000 unit PO QODAY RF: 0 benzonatate 100 mg capsule 100 mg PO TID PRN PRN (Reason: Cough) RF: 0 amlodipine 10 mg tablet 2.5 mg PO DAILY RF: 0 torsemide 20 mg Tablet 10 mg PO DAILY RF: 0 lurasidone 40 mg Tablet 40 mg PO DAILY RF: 0 Tresiba FlexTouch U-100 100 unit/mL (3 mL) Insulin Pen 10 unit SUBCUT DAILY RF: 0 Discontinued lactulose 20 gram/30 mL solution 60 ml PO TID RF: 0 pregabalin 75 mg capsule 75 mg PO BID RF: 0 Referrals / Follow Up: Princess Pham NP, MARKETING ASSISTANT-C [NON-STAFF] - 04/23/22 10:20 am Disposition Disposition (needs filled in before D/C Order can be placed): Home Health Service Charges/Coding Visit Charges Inpatient E&M: 02667 Disch Hosp
[2022-04-19 11:22] LABS: Pathologist Review Reviewed
[2022-04-19 14:00] LABS: Pathologist Review Reviewed
[2022-04-20 09:12] LABS: Pathologist Review Reviewed
== END 2022-04-18 14:32 | disposition home health service (06) | DRG 432 ==
LOC: ED 03:26 → PCU 07:39
PROVIDERS: Hospitalist; Admitting Provider Internal Medicine; Emergency Provider Emergency Medicine; PCP Internal Medicine; Visit Provider Internal Medicine
DX: K74.69 Other cirrhosis of liver (principal); G92.8 Other toxic encephalopathy; D61.818 Other pancytopenia; E72.20 Disorder of urea cycle metabolism, unspecified; J90 Pleural effusion, not elsewhere classified; J98.11 Atelectasis; K72.10 Chronic hepatic failure without coma; F25.9 Schizoaffective disorder, unspecified; E11.42 Type 2 diabetes mellitus with diabetic polyneuropathy; F31.9 Bipolar disorder, unspecified; E11.22 Type 2 diabetes mellitus with diabetic chronic kidney disease; N18.32 Chronic kidney disease, stage 3b; D63.1 Anemia in chronic kidney disease; I12.9 Hypertensive chronic kidney disease with stage 1 through stage 4 chronic kidney disease, or unspecified chronic kidney disease; E06.3 Autoimmune thyroiditis; G89.29 Other chronic pain; Z91.14 Patient's other noncompliance with medication regimen; Z79.899 Other long term (current) drug therapy
CPT/HCPCS: 32555; 36415; 36600; 70450; 71045; 71046; 74018; 80048; 80053; 82140; 82803; 82962; 84484; 85025; 85610; 85730; 92526; 92610; 93005; 94640; 97162; 97166; 97802; 99285; J7040; J7050; A4216; J1940; J2405

== ENCOUNTER 2022-05-07 14:29 | Emergency (ER) | payer MEDICARE, MEDICAID, SELFPAY ==
[2022-05-07 14:30] VITALS: BP 149/72; PULSE 53; TEMP 36.4; O2SAT 97; BMI 27.1
--- NOTE | 2022-05-07 15:06 | EDS_ITS ---
HPI HPI - Fall History of Present Illness Chief Complaint: Fall Detail of Chief Complaint: Posterior scalp laceration. Informant: patient Occured/Mechanism Occurred: Today Mechanism/Context: Yes same level fall Usually ambulates: Walker Pain/Injury Pain Location: head Quality of Pain: Sharp Current Severity: Moderate Maximum Severity: Moderate Associated Symptoms Associated Symptoms: Negative for Parasthesias, Weakness, Loss of function, Inability to ambulate, Loss of consciousness or Amnesia Narrative Narrative: 51-year-old female history of autoimmune immune liver cirrhosis. Also insulin- dependent diabetes and prior UT. No stents. She is not on any blood thinners. She uses a walker. Said today she was just felt general malaise. And when she was in the kitchen she lost her balance fell backwards striking her head either on the counter of the floor. No LOC. No neck pain. She has a laceration. She is unsure of her last tetanus. She denies other injuries. Tetanus Immunization: Unknown Prior similar symptoms: No Recent Illness/Hospitalization: No PFSH PFSH Medical History Acute kidney injury superimposed on chronic kidney disease Acute on chronic renal insufficiency Anemia Anemia Autoimmune hepatitis Bacteremia due to methicillin resistant Staphylococcus epidermidis Bipolar disorder CHI (closed head injury) Chronic pain Cirrhosis of liver Depression Diabetes mellitus Diabetes mellitus, type 2 Encephalopathy acute Reilly's thyroiditis Hepatic encephalopathy Hepatitis History of hypothyroidism Hypertension Kidney disease MRSA bacteremia Pancreatitis Pancytopenia Pancytopenia Pancytopenia Peripheral neuropathy Schizoaffective disorder Severe sepsis Splenomegaly Stage 3b chronic kidney disease (CKD) Home Medications magnesium oxide 400 mg PO BID supplement 03/14/17 [History Last Taken 03/22/22] rifaximin 550 mg tablet (Xifaxan) 550 mg PO BID IBS 11/04/17 [History Last Taken 03/22/22] pantoprazole 40 mg tablet,delayed release 40 mg PO DAILY GERD 03/20/21 [History Last Taken 03/22/22] sertraline 50 mg tablet 50 mg PO DAILY DEPRESSION 03/20/21 [History Last Taken 03/22/22] sucralfate 1 gram tablet (Carafate) 1 g PO ACHS STOMACH 03/20/21 [History Last Taken 03/22/22] ursodiol 300 mg capsule 300 mg PO BID LIVER 04/25/21 [History Last Taken 03/22/22] carbamazepine 100 mg tablet,extended release,12 hr 100 mg PO BID seizures 04/29/21 [History Last Taken 03/22/22] zinc 50 mg tablet 50 mg PO DAILY SUPPLEMENT 09/18/21 [History Last Taken 03/22/22] carvedilol 3.125 mg tablet 3.125 mg PO BID HEART 03/23/22 [History Last Taken 03/22/22] levothyroxine 50 mcg tablet 50 mcg PO DAILY THYROID 03/23/22 [History Last Taken 03/22/22] amlodipine 10 mg tablet 2.5 mg PO DAILY 04/16/22 [History Last Taken Unknown] benzonatate 100 mg capsule 100 mg PO TID PRN PRN Cough 04/16/22 [History Last Taken Unknown] ergocalciferol (vitamin D2) 50,000 unit tablet 50,000 unit PO QODAY 04/16/22 [History Last Taken Unknown] insulin degludec 100 unit/mL (3 mL) subcutaneous pen (Tresiba FlexTouch U-100 insulin) 10 unit subcut DAILY 04/16/22 [History Last Taken Unknown] lurasidone 40 mg tablet 40 mg PO DAILY 04/16/22 [History Last Taken Unknown] torsemide 20 mg tablet 10 mg PO DAILY diuretic 04/16/22 [History Last Taken Unknown] lactulose 20 gram/30 mL oral solution 40 g (60 mL) PO TID #0 mL 04/18/22 [Rx Last Taken Unknown] spironolactone 50 mg tablet 50 mg PO DAILY #30 tabs 04/18/22 [Rx Last Taken Unknown] Allergy/AdvReac Type Severity Reaction Status Date / Time adhesive Allergy Rash Verified 04/16/22 03:29 escitalopram oxalate Allergy blindness Verified 04/16/22 03:29 [From Lexapro] Fish Containing Products Allergy Other Verified 04/16/22 03:29 gabapentin [From Neurontin] Allergy Alan Verified 04/16/22 03:29 Jez's Syndrome lamotrigine [From Lamictal] Allergy Blindness Verified 04/16/22 03:29 topiramate [From Topamax] Allergy Other Verified 04/16/22 03:29 Preservatives Allergy passed Uncoded 04/16/22 03:29 out, lungs deflated sour cream Allergy Anaphylaxis Uncoded 04/16/22 03:29 Family History Father CVA (cerebral vascular accident) Myocardial infarction Heart disease CAD (coronary artery disease) Grandmother CHF (congestive heart failure) Sister Hypertension Mother Heart disease Surgical History H/O: hysterectomy History of abdominal paracentesis (10/2019) History of appendectomy History of cholecystectomy S/P TIPS (transjugular intrahepatic portosystemic shunt) Social History household members: significant other housing: house Smoking Status: Never smoker alcohol intake: never details: Unknown substance use type: does not use ROS ROS ED ROS Narrative Fall. Malaise. Review of Systems ROS Unobtainable: Denies due to encephalopathy Constitutional Constitutional ED: Denies chills Eyes Eyes: Denies blurry vision ENT ENT ED: Denies ear pain Cardiovascular Cardiovascular: Denies chest pain Respiratory/Chest Respiratory/Chest: Denies cough Gastrointestinal Gastrointestinal: Reports nausea and vomiting; Denies abdominal pain Genitourinary Genitourinary ED: Denies dysuria Musculoskeletal Musculoskeletal: Denies arthralgias Integumentary Denies abscess Neurologic Neurologic: Reports headache(s) Psychiatric Psychiatric: Denies anxiety Endocrine Endocrinology: Denies polydipsia Hematologic/Lymphatic Hematologic/Lymphatic: Denies easy bleeding Allergic/Immunologic Allergic/Immunologic ED: Denies mouth swelling EXAM Physical Exam Narrative Exam Narrative: No erythema no acute distress. Vital signs stable afebrile. H EENT exam unremarkable except that she has a head dressing on. And a laceration posterior scalp. To be further evaluated and we take the dressing off. C-spine nontender. Trachea midline. No signs of trauma to her face. Lungs are clear. Heart regular rhythm rate about 60 no murmur. Chest wall nontender. Back and spine nontender. Moving all 4 extremities. 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 Normal dorsi plantar flexion. Neurologically she is awake and alert. Answers questions. Follows commands. She does not know the day of the week but she knows the month, the year and the president. She knows where she is at. Const Vital Signs: 05/07/22 14:30 05/07/22 14:33 Temperature 97.5 F L Temperature Source Oral Pulse Rate 53 L Respiratory Effort Normal Respiratory Depth Normal Respiratory Pattern Normal Blood Pressure 149/72 H Blood Pressure Mean 97 Pulse Ox 97 Oxygen Delivery Method Room Air Room Air Positive well nourished and well developed; Negative for obese, cachectic or contractures General Appearance ED: well developed; Negative for cachectic or contractures Nutritional Appearance: Negative for cachectic or obese HEENT Reports normocephalic HEENT Narrative: Posterior scalp laceration. trauma and tenderness; Negative for atraumatic Eyes PERRL and EOMs intact bilaterally General Eye ED: Negative for pale conjunctiva or scleral icterus Neck full ROM, no lymphadenopathy and supple General: Negative for tenderness Chest Wall inspection of chest normal and palpation of chest normal Resp normal respiratory effort, no retractions and clear to auscultation bilaterally Auscultation: Negative for rales, rhonchi or wheezes Cardio regular rate, regular rhythm, S1 normal heart sound and S2 normal heart sound GI non-tender, non-distended and no masses Back/Spine no CVA tenderness General Back: Negative for CVA tenderness Cervical Spine: Negative for cervical spine tenderness Thoracic Spine / Upper Back: Negative for ROM limited Lumbar Spine / Lower Back: Negative for lumbar spinal tenderness or straight leg raise positive right Extremity Extremity Narrative: Nontender. No deformity. Neuro oriented x3, moves all extremities and no focal motor deficits Sensorium / Orientation: alert, oriented to person, oriented to place and oriented to time; Negative for orientation impaired, confused, lethargic or stuporous Motor Exam: strength 5/5 throughout Psych mental status grossly normal and thought process normal Attitude: No agitated Mood & Affect: Negative for depressed, anxious or tearful Skin Lesions: no lesions Rashes: no rashes Trauma: laceration; Negative for abrasion MDM MDM MDM Narrative Medical decision making narrative: 51-year-old lost her balance fell backwards struck her head. Has a laceration. Complaining of a headache. She has a history of autoimmune cirrhosis. CAT scan labs are being obtained. Her tetanus to be updated. I will eventually suture repair of the posterior scalp. Repeat exam patient is doing well at 5:10 PM. I did suture repair scalp. Is about a 4 cm laceration. All the skin and subcu tissue. Closed using 3 simple erupted 4-0 Ethilon sutures. Proper hemostasis and wound closure obtained. Patient tolerated procedure well. She will be discharged to home. Lab Data Attestation: I reviewed the patient's lab results. Lab results narrative: CBC White count of 4. H&H of 10 and 28 which is her baseline chronic anemia. Platelets 77,000. Again chronic. CAT scan of brain shows no acute intracranial bleed as read by the radiologist and reviewed by me. Chemistries show potassium 5.9 but is hemolyzed. Gap is 4. Patient has chronic renal insufficiency the BUN is 23 creatinine is 2. Glucose 145. Labs: Laboratory Results - last 24 hr 05/07/22 05/07/22 15:15 15:40 WBC 4.1 L RBC 3.28 L Hgb 10.0 L Hct 28.7 L MCV 87.5 MCH 30.5 MCHC 34.8 RDW Std Deviation 47.2 H RDW Coeff of Valentina 14.9 H Plt Count 77 L MPV 11.8 Immature Gran % (Auto) 0.500 Neut % (Auto) 64.7 Lymph % (Auto) 17.0 L Harmon % (Auto) 9.4 Eos % (Auto) 6.4 H Baso % (Auto) 2.0 H Absolute Neuts (auto) 2.6 Absolute Lymphs (auto) 0.69 L Nucleated RBC % 0 Differential Comment SCANNED Sodium 137 Potassium 5.9 H Chloride 114 H Carbon Dioxide 19.0 L Anion Gap 4 L BUN 23 H Creatinine 2.00 H Estim Creat Clear Calc 32.82 Est GFR (MDRD) Af Amer 33 L Est GFR (MDRD) Non-Af 28 L BUN/Creatinine Ratio 11.5 Glucose 145 H Calcium 8.8 Radiography Diagnostic Testing: Clinical Impression(s) from Imaging Studies Brain CT 05/07/22 15:42 IMPRESSION: There are no acute intracranial findings. Electronically Signed: Reese Bergman MD at 15:57 EDT Reading Location ID and State: [facility] / [place] , Service support , Rhythm Strip Rhythm Strip: Sinus Rhythm Rate: 53 Ectopy: None EKG Initial EKG: Attestation: I personally reviewed and interpreted this EKG as follows: Interpretation: Sinus Rhythm and Sinus Bradycardia Comments: Sinus bradycardia rate of 53 no acute signs of UT or ischemia. Left anterior fascicular block. LVH. Procedures Lacerations Scalp laceration: Length: 1.57 in Depth: Sub Q Shape: Linear Prep: Betadine and Shure-Clens Laceration repair: Irrigated, Lidocaine, Local and Skin sutures Number of Sutures/[place]: 3 Suture Information: Simple and 4-0 Comment: Scalp laceration. 4 cm. Local anesthetized with lidocaine. Cleaned with iodine, Shur-Clens washed and irrigated with saline. Explored. No foreign body. No bony step-off. Closed using 3 simple opted 4-0 Ethilon sutures. Proper hemostasis wound closure obtained. Patient tolerated procedure well. Was instructed on wound care and suture removal. Discharge Plan Triage Chief Complaint: Fall ED Provider: Reddy Price Dx/Rx/DC Orders Clinical Impression: Fall, Head injury, Laceration of scalp Instructions: ED Head Injury (Adult), ED Laceration: All Closures Prescriptions: No Action magnesium oxide 400 MG tablet 400 mg PO BID Xifaxan 550 MG tablet 550 mg PO BID sucralfate [Carafate] 1 gram Tablet 1 g PO ACHS pantoprazole 40 mg Tablet,Delayed Release (Dr/Ec) 40 mg PO DAILY sertraline 50 mg Tablet 50 mg PO DAILY ursodiol 300 mg capsule 300 mg PO BID Label Comments: . carbamazepine 100 mg Tablet Extended Release 12 Hr 100 mg PO BID zinc 50 mg Tablet 50 mg PO DAILY carvedilol 3.125 mg tablet 3.125 mg PO BID levothyroxine 50 mcg tablet 50 mcg PO DAILY ergocalciferol (vitamin D2) 50,000 unit Tablet 50,000 unit PO QODAY Rx Instructions: Sat and benzonatate 100 mg capsule 100 mg PO TID PRN PRN (Reason: Cough) amlodipine 10 mg tablet 2.5 mg PO DAILY torsemide 20 mg Tablet 10 mg PO DAILY lurasidone 40 mg Tablet 40 mg PO DAILY Tresiba FlexTouch U-100 100 unit/mL (3 mL) Insulin Pen 10 unit SUBCUT DAILY lactulose 20 gram/30 mL Solution 40 g PO TID Qty: 0 0RF spironolactone 50 mg tablet 50 mg PO DAILY Qty: 30 0RF Primary Care Provider: Janay Canchola Referrals: Janay Canchola MD [Primary Care Provider] - 10 Day for suture removal Activity Restrictions/Additional Instructions: Ice to your scalp to decrease pain and swelling. Tylenol for pain. Follow-up with your doctor to have stitches taken out in 10 days. Keep the area clean. You can shower he can bathe. Wash it carefully and gently. Dry carefully. There are 3 stitches in your scalp that will need to be removed. Head injury instructions. If you have intractable vomiting or feeling worse get rechecked. Disposition Disposition: Home, Self Care
--- NOTE | 2022-05-07 15:34 | EKG12_ITS ---
Test Reason : HEAD INJURY Blood Pressure : / mmHG Vent. Rate : 053 BPM Atrial Rate : 053 BPM P-R Int : 204 ms QRS Dur : 116 ms QT Int : 492 ms P-R-T Axes : 036 -46 048 degrees QTc Int : 461 ms Sinus bradycardia Left anterior fascicular block Left ventricular hypertrophy with QRS widening Abnormal ECG Confirmed by PAM ZAMBRANO, RANCHO ([id number]), staff editor NORA MENDES ([id number]) on 05/08/2022 9:04:14 AM Referred By: JENNIFER Confirmed By:RANCHO OROZCO MD
--- NOTE | 2022-05-07 15:42 | CT_ITS ---
STUDY: CT BRAIN WITHOUT CONTRAST REASON FOR EXAM: Female, 51 years old. HEADACHE trauma TECHNIQUE: Transaxial CT imaging of the brain was performed without administration of intravenous contrast material. Individualized dose optimization techniques were used for this CT. COMPARISON: 04.02.22 FINDINGS: Normal calvarium. Normal soft tissues. There is a hypodense region which is likely an arachnoid cyst. This is noted between the cerebellar hemisphere. Normal size ventricles and extra-axial spaces for the patient''s age. Normal white matter tracts of the cerebral hemispheres. Normal basal ganglia and thalami. Normal brainstem. Normal cerebellum. There is no intracranial hemorrhage. There are no findings of an acute ischemic infarction. Normal visualized paranasal sinuses. ASPECTS 10 CT/Brain/Head without Contrast IMPRESSION: There are no acute intracranial findings. Electronically Signed: Reese Bergman MD at 15:57 EDT ,
[2022-05-07 15:53] LABS: Absolute Lymphocyte Count 0.69 X10^3/uL (0.83-4.51); Absolute Neutrophil Count 2.6 X10^3/uL (2.0-7.7); Basophil# 0.08 X10^3/uL; Eosinophil# 0.26 X10^3/uL; Eosinophils% 6.4 % (0-5); Hematocrit 28.7 % (37-47); Lymphocyte # 0.69 X10^3/ul (0.83-4.51); Mean Corp Hgb Conc 34.8 g/dL (32-36); Mean Corpuscular Hgb 30.5 pg (27.0-32.0); Mean Corpuscular Volume 87.5 fL (81-99); Mean Platelet Vol. 11.8 fl (6.2-12.0); Monocyte# 0.38 X10^3/uL; Monocyte% 9.4 % (0-10); NRBC Flagged by Analyzer 0 % (0-5); Neutrophil # 2.62 X10^3/uL (2.7-7.7); Neutrophil % 64.7 % (47-70); POSITIVE COUNT YES; Platelet Count 77 K/mm3 (150-450); RBC Distribution Width CV 14.9 % (11.6-14.6); RBC Distribution Width SD 47.2 fl (35.1-43.9); Red Blood Count 3.28 M/mm3 (4.2-5.4); White Blood Count 4.1 K/mm3 (4.4-11.0)
[2022-05-07] MEDS: Ondansetron ODT 4 MG Tablet PO (15:56)
[2022-05-07 16:12] LABS: Differential Indicated SCAN CRITERIA MET
[2022-05-07 16:22] LABS: Differential Comment SCANNED
[2022-05-07] MEDS: Diphth,Pertuss(Acell),Tet Vac 0.5 ML Vial IM (16:23)
[2022-05-07 17:11] LABS: Anion Gap 4 (5-15); BUN 23 mg/dL (7-18); BUN/Creat Ratio 11.5 RATIO (10-20); Calcium,Total 8.8 mg/dL (8.5-10.1); Chloride 114 mmol/L (98-107); EST Glomerular Filtration Rate 28 mL/min (>60); Est Glom Filt Rate - Afr Amer 33 mL/min (>60); Estimated Creatinine Clearance 32.82 ml/min; Glucose 145 mg/dL (74-106); Potassium 5.9 mmol/L (3.5-5.1); Sodium Level 137 mmol/L (136-145)
[2022-05-07] MEDS: Lidocaine 1% (20 ml mdv) 20 ML Vial INFILT (17:33)
[2022-05-07] MEDS: HYDROcodone Bitartrate/Apap 5/325 Tablet PO (17:35)
[2022-05-07 17:37] VITALS: BP 168/73; PULSE 55; RESP 16; TEMP 37.7
== END 2022-05-07 17:56 | disposition home or self-care (01) ==
PROVIDERS: Emergency Provider Emergency Medicine; PCP Internal Medicine; Visit Provider Emergency Medicine
DX: S01.01XA Laceration without foreign body of scalp, initial encounter (principal); E11.22 Type 2 diabetes mellitus with diabetic chronic kidney disease; Z79.4 Long term (current) use of insulin; N18.32 Chronic kidney disease, stage 3b; I25.2 Old myocardial infarction; W18.30XA Fall on same level, unspecified, initial encounter; Z23 Encounter for immunization
CPT/HCPCS: 12001; 36415; 70450; 80048; 85025; 90471; 93005; 99285

== ENCOUNTER 2022-05-14 12:02 | Inpatient (IN) | payer MEDICARE, MEDICAID, SELFPAY ==
[2022-05-14] VITALS (15 sets, daily range): BP systolic 141–187; BP diastolic 66–84; PULSE 66–73; RESP 11–18; TEMP 35.6–36.2; O2SAT 99–100; BMI 26.9; BMI 26.0
[2022-05-14 12:56] LABS: Absolute Lymphocyte Count 0.43 X10^3/uL (0.83-4.51); Absolute Neutrophil Count 2.4 X10^3/uL (2.0-7.7); Basophil# 0.07 X10^3/uL; Basophil% 2.1 % (0-1); Eosinophils% 5.9 % (0-5); Hematocrit 23.4 % (37-47); Hemoglobin 8.2 g/dL (12.0-15.0); Lymphocyte # 0.43 X10^3/ul (0.83-4.51); Lymphocyte % 12.6 % (19-41); Mean Corpuscular Hgb 31.8 pg (27.0-32.0); Mean Corpuscular Volume 90.7 fL (81-99); Mean Platelet Vol. 11.6 fl (6.2-12.0); Monocyte# 0.29 X10^3/uL; Monocyte% 8.5 % (0-10); NRBC Flagged by Analyzer 0 % (0-5); Neutrophil % 70.6 % (47-70); POSITIVE COUNT YES; POSITIVE DIFFERENTIAL YES; Platelet Count 77 K/mm3 (150-450); RBC Distribution Width CV 15.7 % (11.6-14.6); RBC Distribution Width SD 47.8 fl (35.1-43.9); Red Blood Count 2.58 M/mm3 (4.2-5.4); White Blood Count 3.4 K/mm3 (4.4-11.0)
--- NOTE | 2022-05-14 12:58 | CT_ITS ---
STUDY: CT BRAIN WITHOUT CONTRAST REASON FOR EXAM: Female, 51 years old. Altered mental status. RADIATION DOSAGE (If Supplied By Facility): CTDIvol = ( 44.99 ) mGy, DLP = ( 812.98 ) mGycm TECHNIQUE: Transaxial CT imaging of the brain was performed without administration of intravenous contrast material. Individualized dose optimization techniques were used for this CT. COMPARISON: Comparison is made with prior study dated 05/07/2022. FINDINGS: Normal soft tissue structures. Normal calvarium. Normal size ventricles and extra-axial spaces for the patient''s age. Normal white matter tracts of the cerebral hemispheres. Normal basal ganglia and thalami. Normal brainstem. Normal cerebellum. Stable enlargement of the cisterna magna. There is no intracranial hemorrhage. There are no findings of an acute ischemic infarction. Normal visualized paranasal sinuses. CT/Brain/Head without Contrast IMPRESSION: Normal unenhanced CT scan of the brain. Electronically Signed: Dash Shin MD at 13:33 EDT ,
[2022-05-14 13:03] LABS: Differential Indicated SCAN CRITERIA MET
[2022-05-14 13:13] LABS: ALB/GLOB Ratio 0.8 RATIO (0.9-2.4); AST(SGOT) 38 U/L (15-37); Alanine Aminotransfer ALT/SGPT 25 U/L (13-56); Albumin, Serum 3.1 g/dL (3.2-5.0); Alkaline Phosphatase 171 U/L (45-117); Anion Gap 6 (5-15); BUN 32 mg/dL (7-18); BUN/Creat Ratio 17.6 RATIO (10-20); Calcium,Total 8.3 mg/dL (8.5-10.1); Chloride 113 mmol/L (98-107); Creatinine, Serum 1.82 mg/dL (0.55-1.02); EST Glomerular Filtration Rate 31 mL/min (>60); Est Glom Filt Rate - Afr Amer 37 mL/min (>60); Estimated Creatinine Clearance 36.06 ml/min; Globulin 3.7 g/dL (2.2-4.2); Glucose 164 mg/dL (74-106); Lipase 108 U/L (73-393); Potassium 4.6 mmol/L (3.5-5.1); Protein, Total 6.8 g/dL (6.4-8.2); Sodium Level 142 mmol/L (136-145)
[2022-05-14 13:21] LABS: International Normalized Ratio 1.3; Partial Thromboplast Time 29.5 Seconds (24.1-36.2)
--- NOTE | 2022-05-14 13:26 | RAD_ITS ---
STUDY: X-RAY - ABDOMEN/PELVIS REASON FOR EXAM: Female, 51 years old. NG Insertion TECHNIQUE: Single AP view of the abdomen / pelvis. COMPARISON: Comparison is made with prior study of 04/16/2022. FINDINGS: The tip of the nasogastric tube is in the body of the stomach. There is a moderate amount of colonic fecal material. There is no demonstrated free abdominal air. The patient is status post cholecystectomy. A TIPS is seen in the right upper quadrant. Normal soft tissue structures. Normal visualized osseous structures. RAD/Abdomen Single View (Portable) IMPRESSION: The tip of a nasogastric tube is in the body of the stomach. Electronically Signed: Dash Shin MD at 14:31 EDT ,
--- NOTE | 2022-05-14 13:43 | EDS_ITS ---
HPI History of Present Illness Chief Complaint: Alt LOC Informant: spouse/S.O. and EMS Narrative Narrative: 51-year-old female with a history of autoimmune hepatitis presenting to the emergency room with altered mental status. Patient has a history of hepatic enc ephalopathy. Her significant other told EMS that she has vomited all over the house. Unable to take her medications. There was a report that she was hospitalized over the weekend at [facility] following a visit to the emergency room here. I do not have really any information more about that. She was noted to be hypertensive by EMS and nursing. She does take medications for essential hyper engine. Significant other notes she has not been able to take any of her medicines. [facility] Medical History Acute kidney injury superimposed on chronic kidney disease Acute on chronic renal insufficiency Anemia Anemia Autoimmune hepatitis Bacteremia due to methicillin resistant Staphylococcus epidermidis Bipolar disorder CHI (closed head injury) Chronic pain Cirrhosis of liver Depression Diabetes mellitus Diabetes mellitus, type 2 Encephalopathy acute Reilly's thyroiditis Hepatic encephalopathy Hepatitis History of hypothyroidism Hypertension Kidney disease MRSA bacteremia Pancreatitis Pancytopenia Pancytopenia Pancytopenia Peripheral neuropathy Schizoaffective disorder Severe sepsis Splenomegaly Stage 3b chronic kidney disease (CKD) Home Medications magnesium oxide 400 mg PO BID supplement 03/14/17 [History Last Taken 03/22/22] rifaximin 550 mg tablet (Xifaxan) 550 mg PO BID IBS 11/04/17 [History Last Taken 03/22/22] pantoprazole 40 mg tablet,delayed release 40 mg PO DAILY GERD 03/20/21 [History Last Taken 03/22/22] sertraline 50 mg tablet 50 mg PO DAILY DEPRESSION 03/20/21 [History Last Taken 03/22/22] sucralfate 1 gram tablet (Carafate) 1 g PO ACHS STOMACH 03/20/21 [History Last Taken 03/22/22] ursodiol 300 mg capsule 300 mg PO BID LIVER 04/25/21 [History Last Taken 03/22/22] carbamazepine 100 mg tablet,extended release,12 hr 100 mg PO BID seizures 04/29/21 [History Last Taken 03/22/22] zinc 50 mg tablet 50 mg PO DAILY SUPPLEMENT 09/18/21 [History Last Taken 03/22/22] carvedilol 3.125 mg tablet 3.125 mg PO BID HEART 03/23/22 [History Last Taken 03/22/22] insulin degludec 100 unit/mL (3 mL) subcutaneous pen (Tresiba FlexTouch U-100 insulin) 10 unit subcut DAILY 04/16/22 [History Last Taken Unknown] lurasidone 40 mg tablet 40 mg PO DAILY 04/16/22 [History Last Taken Unknown] torsemide 20 mg tablet 10 mg PO DAILY diuretic 04/16/22 [History Last Taken Unknown] spironolactone 50 mg tablet 50 mg PO DAILY #30 tabs 04/18/22 [Rx Last Taken Unknown] amlodipine 2.5 mg tablet 2.5 mg PO DAILY 05/14/22 [History Last Taken Unknown] ergocalciferol (vitamin D2) 1,250 mcg (50,000 unit) capsule (Vitamin D2) 1,250 unit PO MOTH 05/14/22 [History Last Taken Unknown] insulin lispro 100 unit/mL subcutaneous pen (Humalog KwikPen (U-100) Insulin) 8 unit subcut TID 05/14/22 [History Last Taken Unknown] levothyroxine 75 mcg tablet 75 mcg PO DAILY THYROID 05/14/22 [History Last Taken Unknown] ondansetron 4 mg disintegrating tablet 8 mg PO Q8H PRN Nausea And Vomiting 05/14/22 [History Last Taken Unknown] pregabalin 25 mg capsule 25 mg PO BID PAIN 05/14/22 [History Last Taken Unknown] Allergy/AdvReac Type Severity Reaction Status Date / Time adhesive Allergy Rash Verified 05/14/22 13:50 escitalopram oxalate Allergy blindness Verified 05/14/22 13:50 [From Lexapro] Fish Containing Products Allergy Other Verified 05/14/22 13:50 gabapentin [From Neurontin] Allergy Alan Verified 05/14/22 13:50 Jez's Syndrome lamotrigine [From Lamictal] Allergy Blindness Verified 05/14/22 13:50 topiramate [From Topamax] Allergy Other Verified 05/14/22 13:50 sour cream AdvReac Severe Anaphylaxis Uncoded 05/14/22 14:51 Preservatives AdvReac Intermediate passed Uncoded 05/14/22 14:50 out, lungs deflated Family History Father CVA (cerebral vascular accident) Myocardial infarction Heart disease CAD (coronary artery disease) Grandmother CHF (congestive heart failure) Sister Hypertension Mother Heart disease Surgical History H/O: hysterectomy History of abdominal paracentesis (10/2019) History of appendectomy History of cholecystectomy S/P TIPS (transjugular intrahepatic portosystemic shunt) Social History household members: significant other housing: house Smoking Status: Never smoker alcohol intake: never details: Unknown substance use type: does not use ROS ROS ED Review of Systems ROS Unobtainable: due to mental status EXAM Physical Exam Const Vital Signs: 05/14/22 12:04 05/14/22 12:08 05/14/22 13:50 Temperature 96.1 F L Temperature Source Temporal Pulse Rate 70 67 Respiratory Rate 18 15 Respiratory Effort Normal Non-Labored Respiratory Pattern Normal Blood Pressure 184/84 H 187/79 H Blood Pressure Mean 117 115 Pulse Ox 99 100 Oxygen Delivery Method Room Air Room Air Positive well nourished and well developed General Appearance ED: well developed HEENT Reports normocephalic, head/scalp atraumatic and moist mucous membranes Eyes PERRL and EOMs intact bilaterally Neck no lymphadenopathy, supple and no JVD Resp normal respiratory effort and clear to auscultation bilaterally Cardio regular rate, regular rhythm and no murmurs GI normal to inspection, nondistended, normoactive bowel sounds and non-tender Palpation: soft Back/Spine no CVA tenderness and normal ROM Extremity normal to inspection General Extremety ED: Negative for edema General Extremity: Negative for edema Neuro Neuro Narrative: Patient responds to me shouting and withdraws to pain. Sensorium / Orientation: stuporous Psych Mood & Affect: Negative for depressed or tearful Skin no rashes or lesions noted and no wounds MDM MDM MDM Narrative Medical decision making narrative: White count 3.4 with a hemoglobin of 8.2. INR 1.3. Creatinine 1.82 with a BUN of 32. Glucose of 164. Her ammonia level is 213. CT of the brain was obtained and is negative for acute. The patient's significant other was updated by nursing. We expressed our concerns about her being able to continue to live at home and he agrees that she is unable to care for herself. We will need to involve social work. An NG is going to be placed we can give her lactulose as she is too encephalopathic to be able to take it orally. Lab Data Attestation: I reviewed the patient's lab results. Labs: Laboratory Results - last 24 hr 05/14/22 05/14/22 05/14/22 12:40 12:40 12:40 WBC 3.4 L RBC 2.58 L Hgb 8.2 L Hct 23.4 L MCV 90.7 MCH 31.8 MCHC 35.0 RDW Std Deviation 47.8 H RDW Coeff of Valentina 15.7 H Plt Count 77 L MPV 11.6 Immature Gran % (Auto) 0.300 Neut % (Auto) 70.6 H Lymph % (Auto) 12.6 L Andrews % (Auto) 8.5 Eos % (Auto) 5.9 H Baso % (Auto) 2.1 H Absolute Neuts (auto) 2.4 Absolute Lymphs (auto) 0.43 L Nucleated RBC % 0 Differential Comment COMMENT Diff Path Review May foll Platelet Estimate MOD DEC PT 16.0 H INR 1.3 APTT 29.5 Sodium 142 Potassium 4.6 Chloride 113 H Carbon Dioxide 23.0 Anion Gap 6 BUN 32 H Creatinine 1.82 H Estim Creat Clear Calc 36.06 Est GFR (MDRD) Af Amer 37 L Est GFR (MDRD) Non-Af 31 L BUN/Creatinine Ratio 17.6 Glucose 164 H Calcium 8.3 L Total Bilirubin 1.20 H AST 38 H ALT 25 Alkaline Phosphatase 171 H Ammonia Total Protein 6.8 Albumin 3.1 L Globulin 3.7 Albumin/Globulin Ratio 0.8 L Lipase 108 05/14/22 12:40 WBC RBC Hgb Hct MCV MCH MCHC RDW Std Deviation RDW Coeff of Valentina Plt Count MPV Immature Gran % (Auto) Neut % (Auto) Lymph % (Auto) Andrews % (Auto) Eos % (Auto) Baso % (Auto) Absolute Neuts (auto) Absolute Lymphs (auto) Nucleated RBC % Differential Comment Diff Path Review Platelet Estimate PT INR APTT Sodium Potassium Chloride Carbon Dioxide Anion Gap BUN Creatinine Estim Creat Clear Calc Est GFR (MDRD) Af Amer Est GFR (MDRD) Non-Af BUN/Creatinine Ratio Glucose Calcium Total Bilirubin AST ALT Alkaline Phosphatase Ammonia 213.0 H Total Protein Albumin Globulin Albumin/Globulin Ratio Lipase Radiography Diagnostic Testing: Clinical Impression(s) from Imaging Studies Brain CT 05/14/22 12:58 IMPRESSION: Normal unenhanced CT scan of the brain. Electronically Signed: Dash Shin MD at 13:33 EDT , KUB X-Ray 05/14/22 13:26 IMPRESSION: The tip of a nasogastric tube is in the body of the stomach. Electronically Signed: Dash Shin MD at 14:31 EDT , Critical Care Time Critical Care Time: Yes Critical care time (excluding procedures): 30-74 minutes (35 min), Including time spent:, Discussing w/Patient &/or Family/Envelope Maker, Discussing w/Consultants, Arranging Admission or Transfer and Performing Direct Patient Care at Bedside Discharge Plan Dx/Rx/DC Orders Clinical Impression: Acute hepatic encephalopathy, Essential hypertension, Autoimmune hepatitis Disposition Disposition: [facility]
[2022-05-14] MEDS: hydrALAZINE 20 MG/ML Vial 10 MG IV (13:47)
[2022-05-14 13:49] LABS: Platelet Estimate MOD DEC (ADEQ)
--- NOTE | 2022-05-14 14:19 | NURSING ---
DR ROBERTO AGUIAR
--- NOTE | 2022-05-14 14:21 | HP.PCM.HOS_ITS ---
HPI - General General Date of Admission: 05/14/22 Date of Service: 05/14/22 Chief Complaint: Altered mental status HPI Narrative ANA GARCÍA, is a 51 F with past medical history significant for cirrhosis of the liver secondary to autoimmune hepatitis on ursodiol rifaximin and lactulose with frequent hospitalization for hepatic encephalopathy who was brought to the emergency department with decreased level of sensorium by the boyfriend. Patient could not provide any history given her current status history was therefore obtained from the signout from the emergency department. As stated above patient presented with decreased level of sensorium and assessment of acute hepatic encephalopathy made. An NG tube was passed and order given for lactulose and patient subsequently admitted to the intensive care unit for further management [facility] Medical History Acute kidney injury superimposed on chronic kidney disease Acute on chronic renal insufficiency Anemia Anemia Autoimmune hepatitis Bacteremia due to methicillin resistant Staphylococcus epidermidis Bipolar disorder CHI (closed head injury) Chronic pain Cirrhosis of liver Depression Diabetes mellitus Diabetes mellitus, type 2 Encephalopathy acute Reilly's thyroiditis Hepatic encephalopathy Hepatitis History of hypothyroidism Hypertension Kidney disease MRSA bacteremia Pancreatitis Pancytopenia Pancytopenia Pancytopenia Peripheral neuropathy Schizoaffective disorder Severe sepsis Splenomegaly Stage 3b chronic kidney disease (CKD) Home Medications magnesium oxide 400 mg PO BID supplement 03/14/17 [History Last Taken 03/22/22] rifaximin 550 mg tablet (Xifaxan) 550 mg PO BID IBS 11/04/17 [History Last Taken 03/22/22] pantoprazole 40 mg tablet,delayed release 40 mg PO DAILY GERD 03/20/21 [History Last Taken 03/22/22] sertraline 50 mg tablet 50 mg PO DAILY DEPRESSION 03/20/21 [History Last Taken 03/22/22] sucralfate 1 gram tablet (Carafate) 1 g PO ACHS STOMACH 03/20/21 [History Last Taken 03/22/22] ursodiol 300 mg capsule 300 mg PO BID LIVER 04/25/21 [History Last Taken 03/22/22] carbamazepine 100 mg tablet,extended release,12 hr 100 mg PO BID seizures 04/29/21 [History Last Taken 03/22/22] zinc 50 mg tablet 50 mg PO DAILY SUPPLEMENT 09/18/21 [History Last Taken 03/22/22] carvedilol 3.125 mg tablet 3.125 mg PO BID HEART 03/23/22 [History Last Taken 03/22/22] levothyroxine 50 mcg tablet 50 mcg PO DAILY THYROID 03/23/22 [History Last Taken 03/22/22] amlodipine 10 mg tablet 2.5 mg PO DAILY 04/16/22 [History Last Taken Unknown] benzonatate 100 mg capsule 100 mg PO TID PRN PRN Cough 04/16/22 [History Last Taken Unknown] ergocalciferol (vitamin D2) 50,000 unit tablet 50,000 unit PO QODAY 04/16/22 [History Last Taken Unknown] insulin degludec 100 unit/mL (3 mL) subcutaneous pen (Tresiba FlexTouch U-100 insulin) 10 unit subcut DAILY 04/16/22 [History Last Taken Unknown] lurasidone 40 mg tablet 40 mg PO DAILY 04/16/22 [History Last Taken Unknown] torsemide 20 mg tablet 10 mg PO DAILY diuretic 04/16/22 [History Last Taken Unknown] lactulose 20 gram/30 mL oral solution 40 g (60 mL) PO TID #0 mL 04/18/22 [Rx Last Taken Unknown] spironolactone 50 mg tablet 50 mg PO DAILY #30 tabs 04/18/22 [Rx Last Taken Unknown] Allergy/AdvReac Type Severity Reaction Status Date / Time adhesive Allergy Rash Verified 05/14/22 13:50 escitalopram oxalate Allergy blindness Verified 05/14/22 13:50 [From Lexapro] Fish Containing Products Allergy Other Verified 05/14/22 13:50 gabapentin [From Neurontin] Allergy Alan Verified 05/14/22 13:50 Jez's Syndrome lamotrigine [From Lamictal] Allergy Blindness Verified 05/14/22 13:50 topiramate [From Topamax] Allergy Other Verified 05/14/22 13:50 sour cream Allergy Anaphylaxis Uncoded 05/14/22 13:50 Preservatives AdvReac Intermediate passed Uncoded 05/14/22 14:50 out, lungs deflated Family History Father CVA (cerebral vascular accident) Myocardial infarction Heart disease CAD (coronary artery disease) Grandmother CHF (congestive heart failure) Sister Hypertension Mother Heart disease Surgical History H/O: hysterectomy History of abdominal paracentesis (10/2019) History of appendectomy History of cholecystectomy S/P TIPS (transjugular intrahepatic portosystemic shunt) Social History household members: significant other housing: house Smoking Status: Never smoker alcohol intake: never details: Unknown substance use type: does not use ROS Review of Systems ROS Unobtainable: due to encephalopathy Vital Signs Vital Signs Vital Signs: 05/14/22 12:04 05/14/22 12:08 05/14/22 13:50 Temperature 96.1 F L Temperature Source Temporal Pulse Rate 70 67 Respiratory Rate 18 15 Respiratory Effort Normal Non-Labored Respiratory Pattern Normal Blood Pressure 184/84 H 187/79 H Blood Pressure Mean 117 115 Pulse Ox 99 100 Oxygen Delivery Method Room Air Room Air Weight Weight: 80.5 kg Body Mass Index (BMI) 26.9 Physical Exam Narrative GENERAL: Patient obtunded HEENT: Atraumatic; EYES; Anicteric, Normal Conjunctiva NECK; supple, normal thyroid, RESPIRATORY: Diminished to auscultation CARDIOVASCULAR: Regular S1 S2, GI: soft, normoactive bowel sounds, : No Renal angle tenderness; EXTREMITIES: No edema, no clubbing, MUSCULOSKELETAL: no muscle wasting NEURO: Obtunded SKIN: No Rash PSYCH; obtunded Results Lab / Micro Data Result Diagrams: 05/14/22 12:40 05/14/22 12:40 Labs: Laboratory Results - last 24 hr 05/14/22 12:40: WBC 3.4 L, RBC 2.58 L, Hgb 8.2 L, Hct 23.4 L, MCV 90.7, MCH 31.8, MCHC 35.0, RDW Std Deviation 47.8 H, RDW Coeff of Valentina 15.7 H, Plt Count 77 L, MPV 11.6, Immature Gran % (Auto) 0.300, Neut % (Auto) 70.6 H, Lymph % (Auto) 12.6 L, Armstrong % (Auto) 8.5, Eos % (Auto) 5.9 H, Baso % (Auto) 2.1 H, Absolute Neuts (auto) 2.4, Absolute Lymphs (auto) 0.43 L, Nucleated RBC % 0, Differential Comment COMMENT, Diff Path Review May foll, Platelet Estimate MOD 05/14/22 12:40: PT 16.0 H, INR 1.3, APTT 29.5 05/14/22 12:40: Sodium 142, Potassium 4.6, Chloride 113 H, Carbon Dioxide 23.0, Anion Gap 6, BUN 32 H, Creatinine 1.82 H, Estim Creat Clear Calc 36.06, Est GFR (MDRD) Af Amer 37 L, Est GFR (MDRD) Non-Af 31 L, BUN/Creatinine Ratio 17.6, Glucose 164 H, Calcium 8.3 L, Total Bilirubin 1.20 H, AST 38 H, ALT 25, Alkaline Phosphatase 171 H, Total Protein 6.8, Albumin 3.1 L, Globulin 3.7, Albumin/Globulin Ratio 0.8 L, Lipase 108 05/14/22 12:40: Ammonia 213.0 H Radiology Impression Brain CT 05/14/22 12:58 IMPRESSION: Normal unenhanced CT scan of the brain. Electronically Signed: Dash Shin MD at 13:33 EDT , Assessment & Plan Assessment/Plan (1) Acute hepatic encephalopathy: PLAN: Plan Patient is a 51-year-old lady with 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 Acute hepatic encephalopathy ? Evidenced by patient encephalopathy and hyperammonemia in the setting of her cirrhosis of the liver. Patient has been admitted to the intensive care unit for close monitoring. An NG tube was placed in the ED for administration of lactulose. Patient already on ursodiol and rifaximin did continue. Consult placed to GI 2. Cirrhosis of the liver ? Secondary to autoimmune hepatitis. Patient is on lactulose rifaximin and ursodiol did continue 3. Pancytopenia -secondary to cirrhosis of the liver monitoring with daily CBCs 4. Diabetes mellitus type 2 ? Patient is on long acting insulin currently being held since patient is n.p.o. in view of her encephalopathy plan is to resume once her level of sensorium improves 5. Chronic kidney disease stage IIIb ? Patient kidney function appears to be close to baseline 6. Hypertension - Blood pressure controlled, home medications continued with dose adjustment as needed 7. Hypothyroidism - Patient is on levothyroxine home dose continued 8. Depression ? Patient is on SSRI which is currently being held 9. Schizoaffective disorder ? Plan is to resume patient psychotropic medications once her level of sensorium improves 10. GERD ? On PPI 11. DVT prophylaxis ? Bilateral SCDs held off initiating chemoprophylaxis in view of patient's thrombocytopenia Charges/Coding Visit Charges Inpatient E&M: 10547 Init Hosp L3
[2022-05-14] MEDS: Lactulose 20 GM/30 ML UDC 30 GM PO (14:38)
--- NOTE | 2022-05-14 14:39 | NURSING ---
ICU KITTOE HEPATIC ENCEPHALOPATHY
--- NOTE | 2022-05-14 14:44 | NURSING ---
ICU 3
--- NOTE | 2022-05-14 15:52 | CT_ITS ---
INDICATION: cirrhosis EXAMINATION: CT Abdomen And Pelvis W/ Contrast Injection TECHNIQUE: Helically acquired images were obtained of the abdomen and pelvis after IV contrast. A radiation dose optimization technique was used for this scan. IV Contrast dosage and agent: IV 75mL Isovue-300 Oral contrast: None. COMPARISON: 11/06/2019. FINDINGS: Visualized lung bases: Unremarkable Liver: Cirrhotic liver. TIPS shunt catheter in place. Gallbladder: Surgically absent. Spleen: Mildly enlarged. Pancreas: Unremarkable Adrenal Glands: Unremarkable Kidneys: Scattered simple cysts. Vasculature: Mild scattered aortoiliac atherosclerotic calcifications. Splenorenal varices. GI Tract: Unremarkable Lymphadenopathy: None Peritoneum: No ascites. Bladder: Unremarkable Reproductive organs: Unremarkable Bones/Soft tissues: There are diffuse degenerative changes of the spine. CT/Abdomen/Pelvis W IV Cont ONLY IMPRESSION: No acute abnormalities in the abdomen or pelvis. Cirrhotic liver with TIPS shunt catheter in place. Portal venous hypertension is manifested by splenomegaly and splenorenal varices. Electronically Signed: Joey Boyce MD at 16:44 EDT ,
[2022-05-14] MEDS: Lactated Ringers 1,000 ML 75 ML IV (16:16)
[2022-05-14] MEDS: Sucralfate 1 GM Tablet PO ×2 (16:16→23:13)
[2022-05-14] MEDS: Lactulose 20 GM/30 ML UDC 40 GM PO ×3 (16:16→23:12)
[2022-05-14] MEDS: Insulin Lispro 100 UNIT/ML INSULN.PEN SC (17:07)
[2022-05-14 17:16] LABS: Bedside Glucose 163 mg/dL (74-106)
[2022-05-14] MEDS: 0.9% Saline Lock 10 ML Syringe IV (20:24)
[2022-05-14] MEDS: Ondansetron 4 MG/2 ML Vial IV (20:24)
[2022-05-14] MEDS: carBAMazepine 200 MG Tablet 100 MG PO (23:12)
[2022-05-14] MEDS: Magnesium Chloride 64 MG Delay Rel.Tablet 128 MG PO (23:13)
[2022-05-14] MEDS: rifAXIMin 550 MG Tablet PO (23:13)
[2022-05-14] MEDS: Ursodiol 250 MG Tablet PO (23:15)
[2022-05-15] VITALS (18 sets, daily range): BP systolic 131–177; BP diastolic 48–81; PULSE 65–81; RESP 13–18; TEMP 36.1–36.4; O2SAT 99–100
[2022-05-15 00:15] LABS: Bedside Glucose 145 mg/dL (74-106)
[2022-05-15] MEDS: Lactulose 20 GM/30 ML UDC 40 GM PO ×3 (02:26→09:23)
[2022-05-15 04:15] LABS: Absolute Lymphocyte Count 0.53 X10^3/uL (0.83-4.51); Absolute Neutrophil Count 3.3 X10^3/uL (2.0-7.7); Basophil# 0.07 X10^3/uL; Basophil% 1.6 % (0-1); Eosinophil# 0.18 X10^3/uL; Eosinophils% 4.1 % (0-5); Hematocrit 26.1 % (37-47); Hemoglobin 8.9 g/dL (12.0-15.0); Lymphocyte # 0.53 X10^3/ul (0.83-4.51); Lymphocyte % 12.1 % (19-41); Mean Corp Hgb Conc 34.1 g/dL (32-36); Mean Corpuscular Hgb 31.2 pg (27.0-32.0); Mean Corpuscular Volume 91.6 fL (81-99); Mean Platelet Vol. 10.6 fl (6.2-12.0); Monocyte# 0.33 X10^3/uL; Monocyte% 7.5 % (0-10); NRBC Flagged by Analyzer 0 % (0-5); Neutrophil # 3.26 X10^3/uL (2.7-7.7); Neutrophil % 74.2 % (47-70); POSITIVE COUNT YES; POSITIVE DIFFERENTIAL YES; Platelet Count 86 K/mm3 (150-450); RBC Distribution Width CV 16.2 % (11.6-14.6); RBC Distribution Width SD 51.6 fl (35.1-43.9); Red Blood Count 2.85 M/mm3 (4.2-5.4); White Blood Count 4.4 K/mm3 (4.4-11.0)
[2022-05-15 04:17] LABS: Differential Indicated SCAN CRITERIA MET
[2022-05-15 04:26] LABS: International Normalized Ratio 1.3
[2022-05-15 04:29] LABS: Anisocytosis 1+; Platelet Estimate MOD DEC (ADEQ)
[2022-05-15 04:33] LABS: AST(SGOT) 35 U/L (15-37); Alanine Aminotransfer ALT/SGPT 27 U/L (13-56); Albumin, Serum 3.2 g/dL (3.2-5.0); Alkaline Phosphatase 157 U/L (45-117); Anion Gap 9 (5-15); BUN 30 mg/dL (7-18); BUN/Creat Ratio 16.8 RATIO (10-20); Bilirubin, Direct 0.43 mg/dL (0.00-0.30); Calcium,Total 8.5 mg/dL (8.5-10.1); Chloride 116 mmol/L (98-107); Creatinine, Serum 1.79 mg/dL (0.55-1.02); EST Glomerular Filtration Rate 31 mL/min (>60); Est Glom Filt Rate - Afr Amer 38 mL/min (>60); Estimated Creatinine Clearance 36.67 ml/min; Globulin 3.6 g/dL (2.2-4.2); Glucose 158 mg/dL (74-106); Magnesium 2.6 mg/dL (1.6-2.6); Phosphorus 3.3 mg/dL (2.5-4.9); Potassium 3.7 mmol/L (3.5-5.1); Protein, Total 6.8 g/dL (6.4-8.2); Sodium Level 144 mmol/L (136-145)
[2022-05-15] MEDS: Sucralfate 1 GM Tablet PO ×2 (06:20→10:16)
[2022-05-15] MEDS: Lactated Ringers 1,000 ML 75 ML IV (06:20)
[2022-05-15] MEDS: Levothyroxine 50 MCG Tablet PO (06:20)
[2022-05-15] MEDS: hydrALAZINE 20 MG/ML Vial 10 MG IV (06:21)
[2022-05-15 06:55] LABS: Bedside Glucose 140 mg/dL (74-106)
--- NOTE | 2022-05-15 07:15 | PN.HOSP_ITS ---
Subjective Subjective Patient is awake, and meaningful conversation, oriented to day and night although mild lethargic and slow to respond. 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 Admitted with toxic metabolic encephalopathy. Objective Data Objective Data Vital Signs: Vital Signs Temp Pulse Resp BP Pulse Ox 97.4 F L 81 18 160/66 H 100 05/15/22 04:00 05/15/22 07:00 05/15/22 07:00 05/15/22 07:00 05/15/22 07:00 Oxygen Delivery Method Room Air Weight: 178 lb 4.8 oz Body Mass Index (BMI) 26.0 Intake & Output: Intake and Output for Last 24 Hours 05/13/22 05/14/22 05/15/22 23:59 23:59 23:59 Intake Total 60 / 90 1060 / 1060 Output Total 750 / 825 550 / 550 Balance -690 / -735 510 / 510 Medical Nutrition Assessment Dietitian: Malnutrition Criteria Met Start: 05/14/22 16:37 Freq: Status: Active Protocol: Document 05/14/22 14:47 RMA (Rec: 05/14/22 16:38 RMA [id number]) Nutrition Malnutrition Evidence of Malnutrition Exists Yes Malnutrition (severe): Chronic Evidenced By Suboptimal Energy Intake ( Severe),Weight Loss (Severe) Intake Problem Decreased Nutrient Needs (specify) Etiology for protein related to hyperammonemia Signs/Symptoms as evidenced by ammonia 213 Status Active Problem Inadequate Oral Intake Etiology related to altered GI function Signs/Symptoms as evidenced by NPO and vomiting Status Active Problem Clinical Problem Chronic Disease or Condition Related Malnutrition Etiology Severe protein-calorie malnutrition in the context of chronic disease related to inadequate oral intake and altered GI function Signs/Symptoms as evidenced by inability to consume adequate PO due to vomiting with intake meeting less than 50% estimated nutrition needs for greater than 3 months and average weight loss ~10-12% x past 3-6 months Status Active Problem Recommendation Dietitian Recommendations/Changes NPO for now; NG in place for meds. When pt is able to take PO nutrition, recommend advance as tolerated to 2000 calorie/ consistent carbohydrate; sodium-restricted diet with protein restriction as needed depending on ammonia level and fluid restriction as indicated. ONS as needed once PO diet advanced. Lab / Micro Data Result Diagrams: 05/15/22 04:05 05/15/22 04:05 Labs: Laboratory Results - last 24 hr 05/14/22 12:40: WBC 3.4 L, RBC 2.58 L, Hgb 8.2 L, Hct 23.4 L, MCV 90.7, MCH 31.8, MCHC 35.0, RDW Std Deviation 47.8 H, RDW Coeff of Valentina 15.7 H, Plt Count 77 L, MPV 11.6, Immature Gran % (Auto) 0.300, Neut % (Auto) 70.6 H, Lymph % (Auto) 12.6 L, Hamlin % (Auto) 8.5, Eos % (Auto) 5.9 H, Baso % (Auto) 2.1 H, Absolute Brian ts (auto) 2.4, Absolute Lymphs (auto) 0.43 L, Nucleated RBC % 0, Differential Comment COMMENT, Diff Path Review March, Platelet Estimate MOD 05/14/22 12:40: PT 16.0 H, INR 1.3, APTT 29.5 05/14/22 12:40: Sodium 142, Potassium 4.6, Chloride 113 H, Carbon Dioxide 23.0, Anion Gap 6, BUN 32 H, Creatinine 1.82 H, Estim Creat Clear Calc 36.06, Est GFR (MDRD) Af Amer 37 L, Est GFR (MDRD) Non-Af 31 L, BUN/Creatinine Ratio 17.6, Glucose 164 H, Calcium 8.3 L, Total Bilirubin 1.20 H, AST 38 H, ALT 25, Alkaline Phosphatase 171 H, Total Protein 6.8, Albumin 3.1 L, Globulin 3.7, Albumin/Globulin Ratio 0.8 L, Lipase 108 05/14/22 12:40: Ammonia 213.0 H 05/14/22 17:01: POC Glucose 163 H 05/14/22 23:05: POC Glucose 145 H 05/15/22 04:05: WBC 4.4, RBC 2.85 L, Hgb 8.9 L, Hct 26.1 L, MCV 91.6, MCH 31.2, MCHC 34.1, RDW Std Deviation 51.6 H, RDW Coeff of Valentina 16.2 H, Plt Count 86 L, MPV 10.6, Immature Gran % (Auto) 0.500, Neut % (Auto) 74.2 H, Lymph % (Auto) 12.1 L, Hamlin % (Auto) 7.5, Eos % (Auto) 4.1, Baso % (Auto) 1.6 H, Absolute Neuts (auto) 3.3, Absolute Lymphs (auto) 0.53 L, Nucleated RBC % 0, Platelet Estimate MOD DEC, Anisocytosis 1+ 05/15/22 04:05: PT 16.0 H, INR 1.3 05/15/22 04:05: Sodium 144, Potassium 3.7, Chloride 116 H, Carbon Dioxide 19.0 L , Anion Gap 9, BUN 30 H, Creatinine 1.79 H, Estim Creat Clear Calc 36.67, Est GFR (MDRD) Af Amer 38 L, Est GFR (MDRD) Non-Af 31 L, BUN/Creatinine Ratio 16.8, Glucose 158 H, Calcium 8.5, Phosphorus 3.3, Magnesium 2.6, Total Bilirubin 1.30 H, Direct Bilirubin 0.43 H, AST 35, ALT 27, Alkaline Phosphatase 157 H, Total Protein 6.8, Albumin 3.2, Globulin 3.6 05/15/22 06:48: POC Glucose 140 H Radiography Diagnostic Testing: Radiology Impression Brain CT 05/14/22 12:58 IMPRESSION: Normal unenhanced CT scan of the brain. Electronically Signed: Dash Shin MD at 13:33 EDT , KUB X-Ray 05/14/22 13:26 IMPRESSION: The tip of a nasogastric tube is in the body of the stomach. Electronically Signed: Dash Shin MD at 14:31 EDT , Abdomen/Pelvis CT 05/14/22 15:52 IMPRESSION: No acute abnormalities in the abdomen or pelvis. Cirrhotic liver with TIPS shunt catheter in place. Portal venous hypertension is manifested by splenomegaly and splenorenal varices. Electronically Signed: Joey Boyce MD at 16:44 EDT , Physical Exam Narrative Physical exam General: Awake oriented x3, Cooperative, mild lethargy slow to respond HEENT NG tube atraumatic, PERRLA, EOMI, Normocephalic Oral: No Gingival or Mucosal Lesions/ Ulcerations Neck: Supple, No JVD, Negative Carotid Bruits Lungs: Air entry diminished in bilateral lung bases. No crepitation/rhonchi Cardiovascular: Regular rate, Regular Rhythm, Normal S1, Normal S2, No murmurs Abdomen: Bowel Sounds Present, Soft, Non Tender, Non-Distended. Mild ascites : No renal angle tenderness. No suprapubic tenderness. Extremities: No edema, Capillary Refill Less than 3 Seconds Skin: No rashes, No breakdown Musculoskeletal: No Tenderness to Palpation of Joints or Extremities, mild atrophy of muscles of extremities. Neurological: Cranial nerves II-XII grossly intact, DTR 2+/4, muscle strength 4/5 at major joints Psych/Mental Status: Flat affect Assessment & Plan Assessment/Plan (1) Acute hepatic encephalopathy: PLAN: Plan Patient is a 51-year-old lady with 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 Acute toxic metabolic encephalopathy from decompensated cirrhosis status post TIPS: Patient is awake, responding to simple orientation questions, oriented x3. NG tube removed. Started on oral feed, lactulose infection, zinc to continue. Patient did not have a history of fever or source of infection as precipitating agent for encephalopathy. Ammonia level is high. CT head does not show acute abnormality. If patient gets recurrent encephalopathy might need revision of TIPS. 2. 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 Secondary to autoimmune hepatitis. Patient is on lactulose rifaximin and ursodiol, continue. CT abdomen/patient will search no acute abnormality but splenomegaly and splenorenal varices, cirrhotic liver with TIPS. 3. Pancytopenia: Patient has lost cell count in all 3 lines, features of hypersplenism/decompensated cirrhosis Anemia, leukopenia and severe thrombocytopenia at baseline. Monitor CBC daily. 4. Diabetes mellitus type 2: Glucose is in 140s to 160s per minute. 2 g sodium diabetic diet. On long-acting and Premeal bolus insulin. Avoid hypoglycemia. Continue Accu-Cheks ACH coverage below sliding scale. 5. Chronic kidney disease stage IIIb ? Patient kidney function appears to be close to baseline 6. Hypertension - Blood pressure controlled, home medications continued with dose adjustment as needed 7. Hypothyroidism - Patient is on levothyroxine home dose continued 8. Depression ? Patient is on SSRI which is currently being held 9. Schizoaffective disorder ? Plan is to resume patient psychotropic medications once her level of sensorium improves 10. GERD ? On PPI 11. DVT prophylaxis ? Bilateral SCDs. Hold chemoprophylaxis in view of patient's thrombocytopenia As per medical case worker, patient has appointment for liver transplant evaluation tomorrow including endocrine clinic. I called patient's sister Ms. James Nichole and she had TIPS few months ago and her encephalopathy getting worse which is her usual side effects like consequence of TIPS at the cost of variceal bleeding and ascites
[2022-05-15 07:58] LABS: International Normalized Ratio 1.4; Prothrombin Time (Protime)PT. 16.7 SECONDS (11.7-14.9)
[2022-05-15] MEDS: Sertraline 50 MG Tablet PO (09:23)
[2022-05-15] MEDS: Ursodiol 250 MG Tablet PO (09:23)
[2022-05-15] MEDS: 0.9% Saline Lock 10 ML Syringe IV (09:23)
[2022-05-15] MEDS: Furosemide 40 MG Tablet PO (09:23)
[2022-05-15] MEDS: Spironolactone 50 MG Tablet PO (09:24)
[2022-05-15] MEDS: carBAMazepine 200 MG Tablet 100 MG PO (09:24)
[2022-05-15] MEDS: rifAXIMin 550 MG Tablet PO (09:24)
[2022-05-15] MEDS: Magnesium Chloride 64 MG Delay Rel.Tablet 128 MG PO (09:24)
[2022-05-15] MEDS: Pantoprazole Sodium 40 MG Tablet PO (10:16)
--- NOTE | 2022-05-15 11:18 | PCM.DC ---
Discharge Instructions Diet Discharge Diet: 1800 Calorie Control Diet and 2000 mg Sodium Diet Activity Discharge Activity: May Not Drive Weight Bearing Status: Weight bearing as tolerated Dressing / Incision Call your doctor if you observe: Fever of 101 or Higher, Coldness, Increased Pain, Numbness or Tingling, Change in Color, Inability to urinate, Inability to have a bowel movement, Shortness of breath, Dizziness, Fainting spells, Swelling in the ankles, Chest pain, Prolonged hiccupping, Increased palpitations (irregular heartbeat), Calf discomfort and Uncontrolled pain Follow Up Care Test Results: Test results from this visit will be discussed in further detail at your follow-up appointment, if applicable. Discharge Plan Admission Admit Date/Time: 05/14/22 14:08 Primary Reason for Your Visit: Acute toxic metabolic encephalopathy due to decompensated cirrhosis. TIPS Attending Provider: Terry Parry Primary Care Provider: Janay Canchola Consulting Providers: Alfredo Hassan Instructions Additional Instructions / Restrictions: Follow-up ongoing liver transplant evaluation in [facility] tomorrow, 05/16/2022. Patient has appointment for cardiology and pulmonary evaluation Discharge Orders/Prescriptions Prescriptions: Continued magnesium oxide 400 MG tablet 400 mg PO BID Label Comments: PER PHARMACY NOT COVERED BY INSURANCE THROUGH [employer]. PHARMACY UNSURE IF SHE IS GETTING OTC Xifaxan 550 MG tablet 550 mg PO BID sucralfate [Carafate] 1 gram Tablet 1 g PO ACHS pantoprazole 40 mg Tablet,Delayed Release (Dr/Ec) 40 mg PO DAILY sertraline 50 mg Tablet 50 mg PO DAILY ursodiol 300 mg capsule 300 mg PO BID Label Comments: . carbamazepine 100 mg Tablet Extended Release 12 Hr 100 mg PO BID zinc 50 mg Tablet 50 mg PO DAILY Label Comments: PER PHARMACY NOT COVERED BY INSURANCE THROUGH [employer]. PHARMACY UNSURE IF SHE IS GETTING OTC carvedilol 3.125 mg tablet 3.125 mg PO BID torsemide 20 mg Tablet 10 mg PO DAILY lurasidone 40 mg Tablet 40 mg PO DAILY Tresiba FlexTouch U-100 100 unit/mL (3 mL) Insulin Pen 10 - 20 unit SUBCUT DAILY Label Comments: MAX OF 20 UNITS DAILY. TRESIBA NOT FILLED PER [facility]. INSURANCE PREFERS [facility]. spironolactone 50 mg tablet 50 mg PO DAILY Qty: 30 0RF amlodipine 2.5 mg Tablet 2.5 mg PO DAILY ergocalciferol (vitamin D2) [Vitamin D2] 1,250 mcg (50,000 unit) capsule 1,250 unit PO MOTH levothyroxine 75 mcg tablet 75 mcg PO DAILY ondansetron 4 mg tablet,disintegrating 8 mg PO Q8H PRN (Reason: Nausea And Vomiting) insulin lispro [Humalog KwikPen Insulin] 100 unit/mL insulin pen 8 unit subcut TID Label Comments: +SLIDING SCALE UP TO 40 UNITS DAILY. pregabalin 25 mg capsule 25 mg PO BID Referrals / Follow Up: Janay Canchola MD [Primary Care Provider] - Within 1 Week FriendShay DO [STAFF PHYSICIAN] - Within 1 Month (For decompensated cirrhosis) Disposition Disposition (needs filled in before D/C Order can be placed): Home, Self Care
[2022-05-15] MEDS: Carvedilol 3.125 MG TABLET PO (11:25)
[2022-05-15] MEDS: Insulin Lispro 100 UNIT/ML INSULN.PEN SC (11:26)
[2022-05-15 11:31] LABS: Bedside Glucose 159 mg/dL (74-106)
--- NOTE | 2022-05-15 12:04 | CHAPLAIN ---
Type of Pastoral Visit _x__ Initial Visit ___ Follow-up Visit ___ On-call Visit ___ General Patient Visit ___ Spiritual Assessment ___ Family Conference ___ Bereavement ___ Rapid Response ___ Code Blue ___ Other (describe below) Pastoral Care Referral From _x__ Patient ___ Family ___ Nurse ___ Physician ___ Loader Demolder ___ Drainlayer ___ Other (describe below) Sacrament/Intervention _x__ Active listening ___ Anointing ___ Jehovah'S Witness ___ Bereavement ___ Communion _x__ Rashida exploration ___ ___ Life review _x__ Prayer ___ Reconciliation ___ Sacrament of Sick _x__ Supportive presence ___ Wedding ___ Other (describe below) Pastoral Comments patient reveals some fears about her ongoing health issues that can eventually lead to and then the caregiving needs of her autistic son; gave support and listening to validate her feelings and affirm her hopes; pt goal is to get a liver transplant and she is in the process of the classes for it; pt is of the Voodoo rashida and trusts that God will help while acknowledging that her health limits her abilities to be out and to go to yazidism; discussed ideas for further support and development of her rashida community; prayer and presence welcomed
--- NOTE | 2022-05-15 12:48 | CASEMGMT ---
Readmission chart review: 04/16-04/18/22 Hepatic encephalopathy 05/14/22-current Pt with recent TIPS procedure(per sister) for cirrhosis of liver d/t autoimmune hepatitis. Pt admitted both times for hepatic encephalopathy and d/c'd 04/18/22 with f/u at [facility] 04/19/22 regarding liver transplant. Pt also saw PCP on 04/23/22 and states has been taking meds at home. Pt returned to [facility] on 05/14/22 with increased confusion at home and ammonia level 213. Pt has been getting kayexalate via NG tube with fecal managment system in place and ammonia is now 63. Pt was in [facility] ED on 05/07/22 for fall and had sutures placed to posterior head. Pt is A/O at this time and is anxious to leave as she states she has next round of appt's at [facility] tomorrow for liver transplant. Dr. Parry aware and placed call to sister regarding same and plans to d/c pt today to make appt's tomorrow. Pt voices no further questions/concerns/needs. CM to follow. Stuart MORRISON CM
--- NOTE | 2022-05-15 13:09 | CASEMGMT ---
Ashlee at [facility] aware of pt discharge today and LENARD order in, voices understanding. Stuart MORRISON CM
[2022-05-15 13:19] LABS: Pathologist Review Reviewed
--- NOTE | 2022-05-15 13:32 | PCM.DC.SUM ---
Providers Date of Admission: 05/14/22 Primary Care Physician: Dr. 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 Acute toxic metabolic encephalopathy from decompensated cirrhosis status post TIPS: Patient is awake, responding to simple orientation questions, oriented x3. NG tube removed. Started on oral feed, lactulose infection, zinc to continue. Patient did not have a history of fever or source of infection as precipitating agent for encephalopathy. Ammonia level is high. CT head does not show acute abnormality. If patient gets recurrent encephalopathy might need revision of TIPS. 2. 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 Secondary to autoimmune hepatitis. Patient is on lactulose rifaximin and ursodiol, continue. CT abdomen/patient will search no acute abnormality but splenomegaly and splenorenal varices, cirrhotic liver with TIPS. 3. Pancytopenia: Patient has lost cell count in all 3 lines, features of hypersplenism/decompensated cirrhosis Anemia, leukopenia and severe thrombocytopenia at baseline. Monitor CBC daily. 4. Diabetes mellitus type 2: Glucose is in 140s to 160s per minute. 2 g sodium diabetic diet. On long-acting and Premeal bolus insulin. Avoid hypoglycemia. Continue Accu-Cheks ACH coverage below sliding scale. 5. Chronic kidney disease stage IIIb ? Patient kidney function appears to be close to baseline 6. Hypertension - Blood pressure controlled, home medications continued with dose adjustment as needed 7. Hypothyroidism - Patient is on levothyroxine home dose continued 8. Depression ? Patient is on SSRI which is currently being held 9. Schizoaffective disorder ? Plan is to resume patient psychotropic medications once her level of sensorium improves 10. GERD ? On PPI 11. DVT prophylaxis ? Bilateral SCDs. Hold chemoprophylaxis in view of patient's thrombocytopenia As per case assembler, patient has appointment for liver transplant evaluation tomorrow including endocrine clinic. I called patient's sister Ms. James Nichole and she had TIPS few months ago and her encephalopathy getting worse which is her usual side effects like consequence of TIPS at the cost of variceal bleeding and ascites Medications at Discharge Home Medications magnesium oxide 400 mg PO BID supplement 03/14/17 rifaximin 550 mg tablet (Xifaxan) 550 mg PO BID IBS 11/04/17 pantoprazole 40 mg tablet,delayed release 40 mg PO DAILY GERD 03/20/21 sertraline 50 mg tablet 50 mg PO DAILY DEPRESSION 03/20/21 sucralfate 1 gram tablet (Carafate) 1 g PO ACHS STOMACH 03/20/21 ursodiol 300 mg capsule 300 mg PO BID LIVER 04/25/21 carbamazepine 100 mg tablet,extended release,12 hr 100 mg PO BID seizures 04/29/21 zinc 50 mg tablet 50 mg PO DAILY SUPPLEMENT 09/18/21 carvedilol 3.125 mg tablet 3.125 mg PO BID HEART 03/23/22 insulin degludec 100 unit/mL (3 mL) subcutaneous pen (Tresiba FlexTouch U-100 insulin) 10 - 20 unit subcut DAILY DM 04/16/22 lurasidone 40 mg tablet 40 mg PO DAILY MOOD 04/16/22 torsemide 20 mg tablet 10 mg PO DAILY diuretic 04/16/22 spironolactone 50 mg tablet 50 mg PO DAILY #30 tabs 04/18/22 amlodipine 2.5 mg tablet 2.5 mg PO DAILY BP 05/14/22 ergocalciferol (vitamin D2) 1,250 mcg (50,000 unit) capsule (Vitamin D2) 1,250 unit PO MOTH SUPPLMENT 05/14/22 insulin lispro 100 unit/mL subcutaneous pen (Humalog KwikPen (U-100) Insulin) 8 unit subcut TID DM 05/14/22 levothyroxine 75 mcg tablet 75 mcg PO DAILY THYROID 05/14/22 ondansetron 4 mg disintegrating tablet 8 mg PO Q8H PRN Nausea And Vomiting 05/14/22 pregabalin 25 mg capsule 25 mg PO BID PAIN 05/14/22 Hospital Course Summary of Care Provided Hospital Course: Patient is a 51-year-old lady with 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 Acute toxic metabolic encephalopathy from decompensated cirrhosis status post TIPS: Patient is awake, responding to simple orientation questions, oriented x3. NG tube removed. Started on oral feed, lactulose infection, zinc to continue. Patient did not have a history of fever or source of infection as precipitating agent for encephalopathy. Ammonia level is high. CT head does not show acute abnormality. As per sister she is getting more encephalopathic episodes after TIPS therefore probably needs revision of TIPS. She is on lactulose 40 g 3 times daily, hold for 3 or more bowel movements per day. 2. 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 Secondary to autoimmune hepatitis. Patient is on lactulose rifaximin and ursodiol, continue. CT abdomen/patient will search no acute abnormality but splenomegaly and splenorenal varices, cirrhotic liver with TIPS. 3. Pancytopenia: Patient has lost cell count in all 3 lines, features of hypersplenism/decompensated cirrhosis Anemia, leukopenia and severe thrombocytopenia at baseline. Monitor CBC periodically as an outpatient. 4. Diabetes mellitus type 2: Glucose is in 140s to 160s per minute. 2 g sodium diabetic diet. On long-acting and Premeal bolus insulin. Avoid hypoglycemia. Continue Accu-Cheks ACH coverage below sliding scale. 5. Chronic kidney disease stage IIIb ? Patient kidney function appears to be close to baseline 6. Hypertension - Blood pressure controlled, home medications continued with dose adjustment as needed 7. Hypothyroidism - Patient is on levothyroxine home dose continued 8. Depression ? Patient is on SSRI which is currently being held 9. Schizoaffective disorder ? Plan is to resume patient psychotropic medications once her level of sensorium improves 10. GERD ? On PPI 11. DVT prophylaxis ? Bilateral SCDs. Hold chemoprophylaxis in view of patient's thrombocytopenia As per case assembler, patient has appointment for liver transplant evaluation tomorrow including endocrine clinic. I talked to the patient's sister Ms. James Nichole and she had TIPS few months ago and her encephalopathy getting worse which is her usual side effects/expected consequence of TIPS at the cost of variceal bleeding and ascites Discharge medication reconciliation done. Discharge follow-up instructions completed. Discharge process discussed with the patient and all questions were answered to patient's satisfaction. I reinforced patient's appointment at clinic clinic tomorrow a.m. for cardiology and pulmonary evaluation as a process for liver transplant evaluation. Discharged home. Total time spent, exact 35 minutes on discharge meds reconciliation, examination, coordination of care with nurses and ancillary staff, review of imaging and blood test and discussion with the patient on follow-up instructions. Physical Exam Narrative Patient seen and examined afternoon. She is awake alert oriented x3. She is tolerating oral food. Acute confusion resolved. Educated about the dosing and frequency of lactulose. Hold for more than 3 bowel movements per day. Medical Records Data Medical Nutrition Assessment Dietitian: Malnutrition Criteria Met Start: 05/14/22 16:37 Freq: Status: Active Protocol: Document 05/15/22 10:12 AG (Rec: 05/15/22 10:12 AG [id number]) Nutrition Malnutrition Evidence of Malnutrition Exists Yes Malnutrition (severe): Chronic Evidenced By Suboptimal Energy Intake ( Severe),Weight Loss (Severe) Intake Problem Inadequate Oral Intake Etiology related to altered GI function Signs/Symptoms as evidenced by NPO status Status Active Problem Clinical Problem Chronic Disease or Condition Related Malnutrition Etiology Severe protein-calorie malnutrition in the context of chronic disease related to inadequate oral intake and altered GI function Signs/Symptoms as evidenced by inability to consume adequate PO due to vomiting with intake meeting less than 50% estimated nutrition needs for greater than 3 months; 32.5#/15% wt loss x 1 month per EMR Status Active Problem Recommendation Dietitian Recommendations/Changes recommend sodium restricted diet when medically appropriate; glucerna 120mL 4x /day w/ medpass when diet advanced given malnutrition Weight / BMI Weight Weight: 178 lb 4.8 oz Body Mass Index (BMI) 26.0 ABG / Lab / Microbiology Data Result Diagrams: 05/15/22 04:05 05/15/22 04:05 Laboratory: Laboratory Results - last 24 hr 05/14/22 12:40: WBC 3.4 L, RBC 2.58 L, Hgb 8.2 L, Hct 23.4 L, MCV 90.7, MCH 31.8, MCHC 35.0, RDW Std Deviation 47.8 H, RDW Coeff of Valentina 15.7 H, Plt Count 77 L, MPV 11.6, Immature Gran % (Auto) 0.300, Neut % (Auto) 70.6 H, Lymph % (Auto) 12.6 L, [place] % (Auto) 8.5, Eos % (Auto) 5.9 H, Baso % (Auto) 2.1 H, Absolute Neuts (auto) 2.4, Absolute Lymphs (auto) 0.43 L, Nucleated RBC % 0, Differential Comment COMMENT, Diff Path Review May , Platelet Estimate MOD 05/14/22 12:40: PT 16.0 H, INR 1.3, APTT 29.5 05/14/22 12:40: Sodium 142, Potassium 4.6, Chloride 113 H, Carbon Dioxide 23.0, Anion Gap 6, BUN 32 H, Creatinine 1.82 H, Estim Creat Clear Calc 36.06, Est GFR (MDRD) Af Amer 37 L, Est GFR (MDRD) Non-Af 31 L, BUN/Creatinine Ratio 17.6, Glucose 164 H, Calcium 8.3 L, Total Bilirubin 1.20 H, AST 38 H, ALT 25, Alkaline Phosphatase 171 H, Total Protein 6.8, Albumin 3.1 L, Globulin 3.7, Albumin/Globulin Ratio 0.8 L, Lipase 108 05/14/22 12:40: Ammonia 213.0 H 05/14/22 17:01: POC Glucose 163 H 05/14/22 23:05: POC Glucose 145 H 05/15/22 04:05: WBC 4.4, RBC 2.85 L, Hgb 8.9 L, Hct 26.1 L, MCV 91.6, MCH 31.2, MCHC 34.1, RDW Std Deviation 51.6 H, RDW Coeff of Valentina 16.2 H, Plt Count 86 L, MPV 10.6, Immature Gran % (Auto) 0.500, Neut % (Auto) 74.2 H, Lymph % (Auto) 12.1 L, [place] % (Auto) 7.5, Eos % (Auto) 4.1, Baso % (Auto) 1.6 H, Absolute Neuts (auto) 3.3, Absolute Lymphs (auto) 0.53 L, Nucleated RBC % 0, Platelet Estimate MOD OCT, Anisocytosis 1+ 05/15/22 04:05: PT 16.0 H, INR 1.3 05/15/22 04:05: Sodium 144, Potassium 3.7, Chloride 116 H, Carbon Dioxide 19.0 L, Anion Gap 9, BUN 30 H, Creatinine 1.79 H, Estim Creat Clear Calc 36.67, Est GFR (MDRD) Af Amer 38 L, Est GFR (MDRD) Non-Af 31 L, BUN/Creatinine Ratio 16.8, Glucose 158 H, Calcium 8.5, Phosphorus 3.3, Magnesium 2.6, Total Bilirubin 1.30 H, Direct Bilirubin 0.43 H, AST 35, ALT 27, Alkaline Phosphatase 157 H, Total Protein 6.8, Albumin 3.2, Globulin 3.6 05/15/22 06:48: POC Glucose 140 H 05/15/22 07:40: Ammonia 63.0 H 05/15/22 07:45: PT 16.7 H, INR 1.4 05/15/22 11:25: POC Glucose 159 H Radiography Diagnostic Testing: Radiology Impression Brain CT 05/14/22 12:58 IMPRESSION: Normal unenhanced CT scan of the brain. Electronically Signed: Dash Shin MD at 13:33 EDT , KUB X-Ray 05/14/22 13:26 IMPRESSION: The tip of a nasogastric tube is in the body of the stomach. Electronically Signed: Dash Shin MD at 14:31 EDT , Abdomen/Pelvis CT 05/14/22 15:52 IMPRESSION: No acute abnormalities in the abdomen or pelvis. Cirrhotic liver with TIPS shunt catheter in place. Portal venous hypertension is manifested by splenomegaly and splenorenal varices. Electronically Signed: Joey Boyce MD at 16:44 EDT , D/C Instructions Discharge Diet: 1800 Calorie Control Diet and 2000 mg Sodium Diet Weight Bearing Status: Weight bearing as tolerated Call your doctor if you observe: Fever of 101 or Higher, Coldness, Increased Pain, Numbness or Tingling, Change in Color, Inability to urinate, Inability to have a bowel movement, Shortness of breath, Dizziness, Fainting spells, Swelling in the ankles, Chest pain, Prolonged hiccupping, Increased palpitations (irregular heartbeat), Calf discomfort and Uncontrolled pain Meaningful Use Info Meaningful Use Diagnoses (Choose all that apply): None applicable Discharge Plan Admission Admit Date/Time: 05/14/22 14:08 Primary Reason for Your Visit: Acute toxic metabolic encephalopathy due to decompensated cirrhosis. TIPS Attending Provider: Terry Parry Primary Care Provider: Janay Canchola Consulting Providers: Alfredo Hassan Instructions Additional Instructions / Restrictions: Follow-up ongoing liver transplant evaluation in [facility] tomorrow, 05/16/2022. Patient has appointment for cardiology and pulmonary evaluation Discharge Orders/Prescriptions Prescriptions: Continued magnesium oxide 400 MG tablet 400 mg PO BID Label Comments: PER PHARMACY NOT COVERED BY INSURANCE THROUGH [employer]. PHARMACY UNSURE IF SHE IS GETTING OTC Xifaxan 550 MG tablet 550 mg PO BID sucralfate [Carafate] 1 gram Tablet 1 g PO ACHS pantoprazole 40 mg Tablet,Delayed Release (Dr/Ec) 40 mg PO DAILY sertraline 50 mg Tablet 50 mg PO DAILY ursodiol 300 mg capsule 300 mg PO BID Label Comments: . carbamazepine 100 mg Tablet Extended Release 12 Hr 100 mg PO BID zinc 50 mg Tablet 50 mg PO DAILY Label Comments: PER PHARMACY NOT COVERED BY INSURANCE THROUGH [employer]. PHARMACY UNSURE IF SHE IS GETTING OTC carvedilol 3.125 mg tablet 3.125 mg PO BID torsemide 20 mg Tablet 10 mg PO DAILY lurasidone 40 mg Tablet 40 mg PO DAILY Tresiba FlexTouch U-100 100 unit/mL (3 mL) Insulin Pen 10 - 20 unit SUBCUT DAILY Label Comments: MAX OF 20 UNITS DAILY. TRESIBA NOT FILLED PER [employer]. INSURANCE PREFERS [employer]. spironolactone 50 mg tablet 50 mg PO DAILY Qty: 30 0RF amlodipine 2.5 mg Tablet 2.5 mg PO DAILY ergocalciferol (vitamin D2) [Vitamin D2] 1,250 mcg (50,000 unit) capsule 1,250 unit PO MOTH levothyroxine 75 mcg tablet 75 mcg PO DAILY ondansetron 4 mg tablet,disintegrating 8 mg PO Q8H PRN (Reason: Nausea And Vomiting) insulin lispro [Humalog KwikPen Insulin] 100 unit/mL insulin pen 8 unit subcut TID Label Comments: +SLIDING SCALE UP TO 40 UNITS DAILY. pregabalin 25 mg capsule 25 mg PO BID Referrals / Follow Up: Janay Canchola MD [Primary Care Provider] - Within 1 Week Friend,DO Shay [STAFF PHYSICIAN] - Within 1 Month (For decompensated cirrhosis) Disposition Disposition (needs filled in before D/C Order can be placed): Home, Self Care Charges/Coding Visit Charges Inpatient E&M: 23212 Disch Hosp
[2022-05-15] MEDS: Insulin Glargine-YFGN 100 UNIT/ML Pen 8 UNIT SC (14:36)
== END 2022-05-15 14:45 | disposition home or self-care (01) | DRG 441 ==
LOC: ED 14:23 → ICU 15:26
PROVIDERS: Internal Medicine Gastroenterology; Admitting Provider Internal Medicine; Emergency Provider Emergency Medicine; PCP Internal Medicine; Visit Provider Internal Medicine
DX: K72.00 Acute and subacute hepatic failure without coma (principal); I85.01 Esophageal varices with bleeding; G92.8 Other toxic encephalopathy; E43 Unspecified severe protein-calorie malnutrition; D61.818 Other pancytopenia; R18.8 Other ascites; E11.22 Type 2 diabetes mellitus with diabetic chronic kidney disease; F25.9 Schizoaffective disorder, unspecified; E11.42 Type 2 diabetes mellitus with diabetic polyneuropathy; K74.60 Unspecified cirrhosis of liver; F31.9 Bipolar disorder, unspecified; Z79.4 Long term (current) use of insulin; N18.32 Chronic kidney disease, stage 3b; I12.9 Hypertensive chronic kidney disease with stage 1 through stage 4 chronic kidney disease, or unspecified chronic kidney disease; K21.9 Gastro-esophageal reflux disease without esophagitis; E06.3 Autoimmune thyroiditis; D73.1 Hypersplenism; Z68.27 Body mass index [BMI] 27.0-27.9, adult; Z79.899 Other long term (current) drug therapy
CPT/HCPCS: 70450; 74018; 74177; 80048; 80053; 80076; 82140; 82962; 83690; 83735; 84100; 85025; 85610; 85730; 99285; J7120; Q9967; A4216; J2405

== ENCOUNTER 2022-05-22 10:17 | Inpatient (IN) | payer MEDICARE, MEDICAID, SELFPAY ==
[2022-05-22] VITALS (13 sets, daily range): BP systolic 143–188; BP diastolic 59–82; PULSE 69–81; RESP 14–22; TEMP 36–37.1; O2SAT 97–100; BMI 29.5
--- NOTE | 2022-05-22 10:23 | EDS_ITS ---
HPI History of Present Illness Chief Complaint: Alt LOC Informant: EMS Narrative Narrative: 51-year-old female with a history of autoimmune hepatitis and medical noncompliance presenting an unresponsive state. Significant other called EMS and the patient was unresponsive. The patient frequently does not take her lactulose and ends up with hepatic encephalopathy. [facility] Medical History Acute kidney injury superimposed on chronic kidney disease Acute on chronic renal insufficiency Anemia Anemia Autoimmune hepatitis Bacteremia due to methicillin resistant Staphylococcus epidermidis Bipolar disorder CHI (closed head injury) Chronic pain Cirrhosis of liver Depression Diabetes mellitus Diabetes mellitus, type 2 Encephalopathy acute Reilly's thyroiditis Hepatic encephalopathy Hepatitis History of hypothyroidism Hypertension Kidney disease MRSA bacteremia Pancreatitis Pancytopenia Pancytopenia Pancytopenia Peripheral neuropathy Schizoaffective disorder Severe sepsis Splenomegaly Stage 3b chronic kidney disease (CKD) Home Medications magnesium oxide 400 mg PO BID supplement 03/14/17 [History Last Taken 03/22/22] rifaximin 550 mg tablet (Xifaxan) 550 mg PO BID IBS 11/04/17 [History Last Taken 03/22/22] pantoprazole 40 mg tablet,delayed release 40 mg PO DAILY GERD 03/20/21 [History Last Taken 03/22/22] sertraline 50 mg tablet 50 mg PO DAILY DEPRESSION 03/20/21 [History Last Taken 03/22/22] sucralfate 1 gram tablet (Carafate) 1 g PO ACHS STOMACH 03/20/21 [History Last Taken 03/22/22] ursodiol 300 mg capsule 300 mg PO BID LIVER 04/25/21 [History Last Taken 03/22/22] carbamazepine 100 mg tablet,extended release,12 hr 100 mg PO BID seizures 04/29/21 [History Last Taken 03/22/22] zinc 50 mg tablet 50 mg PO DAILY SUPPLEMENT 09/18/21 [History Last Taken 03/22/22] carvedilol 3.125 mg tablet 3.125 mg PO BID HEART 03/23/22 [History Last Taken 03/22/22] insulin degludec 100 unit/mL (3 mL) subcutaneous pen (Tresiba FlexTouch U-100 insulin) 10 - 20 unit subcut DAILY DM 04/16/22 [History Last Taken Unknown] lurasidone 40 mg tablet 40 mg PO DAILY MOOD 04/16/22 [History Last Taken Unknown] torsemide 20 mg tablet 10 mg PO DAILY diuretic 04/16/22 [History Last Taken Unknown] spironolactone 50 mg tablet 50 mg PO DAILY #30 tabs 04/18/22 [Rx Last Taken Unknown] amlodipine 2.5 mg tablet 2.5 mg PO DAILY BP 05/14/22 [History Last Taken Unknown] ergocalciferol (vitamin D2) 1,250 mcg (50,000 unit) capsule (Vitamin D2) 1,250 unit PO MOTH SUPPLMENT 05/14/22 [History Last Taken Unknown] insulin lispro 100 unit/mL subcutaneous pen (Humalog KwikPen (U-100) Insulin) 8 unit subcut TID DM 05/14/22 [History Last Taken Unknown] levothyroxine 75 mcg tablet 75 mcg PO DAILY THYROID 05/14/22 [History Last Taken Unknown] ondansetron 4 mg disintegrating tablet 8 mg PO Q8H PRN Nausea And Vomiting 05/14/22 [History Last Taken Unknown] pregabalin 25 mg capsule 25 mg PO BID PAIN 05/14/22 [History Last Taken Unknown] Allergy/AdvReac Type Severity Reaction Status Date / Time adhesive Allergy Rash Verified 05/14/22 13:50 escitalopram oxalate Allergy blindness Verified 05/14/22 13:50 [From Lexapro] Fish Containing Products Allergy Other Verified 05/14/22 13:50 gabapentin [From Neurontin] Allergy Alan Verified 05/14/22 13:50 Jez's Syndrome lamotrigine [From Lamictal] Allergy Blindness Verified 05/14/22 13:50 topiramate [From Topamax] Allergy Other Verified 05/14/22 13:50 sour cream AdvReac Severe Anaphylaxis Uncoded 05/14/22 14:51 Preservatives AdvReac Intermediate passed Uncoded 05/14/22 14:50 out, lungs deflated Family History Father CVA (cerebral vascular accident) Myocardial infarction Heart disease CAD (coronary artery disease) Grandmother CHF (congestive heart failure) Sister Hypertension Mother Heart disease Surgical History H/O: hysterectomy History of abdominal paracentesis (10/2019) History of appendectomy History of cholecystectomy S/P TIPS (transjugular intrahepatic portosystemic shunt) Social History household members: significant other housing: house Smoking Status: Never smoker alcohol intake: never details: Unknown substance use type: does not use ROS ROS ED Review of Systems ROS Unobtainable: due to mental status EXAM Physical Exam Const Vital Signs: 05/22/22 10:18 05/22/22 10:22 05/22/22 10:22 Temperature 98.8 F 98.8 F Temperature Source Temporal Temporal Pulse Rate 69 69 Respiratory Rate 19 H 19 H Respiratory Effort Normal Non-Labored Respiratory Pattern Normal Blood Pressure 187/82 H 187/82 H Blood Pressure Mean 117 117 Pulse Ox 100 100 Oxygen Delivery Method Room Air Room Air Positive well nourished and well developed General Appearance ED: well developed HEENT Reports normocephalic, head/scalp atraumatic and moist mucous membranes Eyes PERRL Neck no lymphadenopathy, supple and no JVD Resp normal respiratory effort and clear to auscultation bilaterally Cardio regular rate, regular rhythm and no murmurs GI normal to inspection, nondistended, normoactive bowel sounds and non-tender Palpation: soft Back/Spine no CVA tenderness and normal ROM Extremity normal to inspection General Extremety ED: Negative for edema General Extremity: Negative for edema Neuro Neuro Narrative: Moves all extremities x4. Withdraws to pain. Patient has a gag reflex. Sensorium / Orientation: stuporous Skin no rashes or lesions noted and no wounds MDM MDM MDM Narrative Medical decision making narrative: Patient is pancytopenic with platelet count of 55 hemoglobin 7.3 and white count 2.7. Her ammonia level is 292. Creatinine 1.94. CT of the brain was obtained negative for acute. My interpretation of the plain films of the abdominal x-ray is adequate placement of the NG tube. Patient received lactulose down the NG tube. Plan is admission. Lab Data Attestation: I reviewed the patient's lab results. Labs: Laboratory Results - last 24 hr 05/22/22 05/22/22 05/22/22 10:30 10:30 10:30 WBC 2.7 L RBC 2.34 L Hgb 7.3 L Hct 22.3 L MCV 95.3 MCH 31.2 MCHC 32.7 RDW Std Deviation 59.8 H RDW Coeff of Valentina 18.1 H Plt Count 55 L MPV 11.9 Immature Gran % (Auto) 0.700 Neut % (Auto) 71.2 H Lymph % (Auto) 11.8 L [place] % (Auto) 8.9 Eos % (Auto) 5.9 H Baso % (Auto) 1.5 H Absolute Neuts (auto) 1.9 L Absolute Lymphs (auto) 0.32 L Nucleated RBC % 0 Differential Comment COMMENT Diff Path Review May foll Platelet Estimate MOD DEC Sodium 144 Potassium 4.8 Chloride 118 H Carbon Dioxide 21.0 Anion Gap 5 BUN 29 H Creatinine 1.94 H Estim Creat Clear Calc 35.05 Est GFR (MDRD) Af Amer 35 L Est GFR (MDRD) Non-Af 29 L BUN/Creatinine Ratio 14.9 Glucose 229 H Calcium 7.8 L Total Bilirubin 0.60 Direct Bilirubin 0.29 AST 44 H ALT 28 Alkaline Phosphatase 277 H Ammonia 292.0 H Total Protein 6.3 L Albumin 2.8 L Globulin 3.5 Lipase 181 Radiography Diagnostic Testing: Clinical Impression(s) from Imaging Studies Brain CT 05/22/22 10:40 IMPRESSION: Stable examination. No acute abnormality is seen. Electronically Signed: Dash Shin MD at 11:05 EDT , Discharge Plan Dx/Rx/DC Orders Clinical Impression: Acute hepatic encephalopathy, Autoimmune hepatitis Disposition Disposition: Acute Care Hospital [facility]
--- NOTE | 2022-05-22 10:40 | CT_ITS ---
STUDY: CT BRAIN WITHOUT CONTRAST REASON FOR EXAM: Female, 51 years old. Altered mental status. RADIATION DOSAGE (If Supplied By Facility): CTDIvol = ( 44.99 ) mGy, DLP = ( 812.98 ) mGycm TECHNIQUE: Transaxial CT imaging of the brain was performed without administration of intravenous contrast material. Individualized dose optimization techniques were used for this CT. COMPARISON: Comparison is made with prior study dated 05/14/2022. FINDINGS: Normal soft tissue structures. Normal calvarium. Normal size ventricles and extra-axial spaces for the patient''s age. Normal white matter tracts of the cerebral hemispheres. Normal basal ganglia and thalami. Normal brainstem. Normal cerebellum. Stable prominence of the cisterna magna. There is no intracranial hemorrhage. There are no findings of an acute ischemic infarction. Minimal degree of mucosal thickening along the posterior aspect of both maxillary sinuses. CT/Brain/Head without Contrast IMPRESSION: Stable examination. No acute abnormality is seen. Electronically Signed: Dash Shin MD at 11:05 EDT ,
[2022-05-22 10:41] LABS: Absolute Lymphocyte Count 0.32 X10^3/uL (0.83-4.51); Absolute Neutrophil Count 1.9 X10^3/uL (2.0-7.7); Basophil# 0.04 X10^3/uL; Basophil% 1.5 % (0-1); Eosinophil# 0.16 X10^3/uL; Eosinophils% 5.9 % (0-5); Hematocrit 22.3 % (37-47); Hemoglobin 7.3 g/dL (12.0-15.0); Lymphocyte # 0.32 X10^3/ul (0.83-4.51); Lymphocyte % 11.8 % (19-41); Mean Corp Hgb Conc 32.7 g/dL (32-36); Mean Corpuscular Hgb 31.2 pg (27.0-32.0); Mean Corpuscular Volume 95.3 fL (81-99); Mean Platelet Vol. 11.9 fl (6.2-12.0); Monocyte# 0.24 X10^3/uL; Monocyte% 8.9 % (0-10); NRBC Flagged by Analyzer 0 % (0-5); Neutrophil # 1.93 X10^3/uL (2.7-7.7); Neutrophil % 71.2 % (47-70); POSITIVE COUNT YES; POSITIVE DIFFERENTIAL YES; Platelet Count 55 K/mm3 (150-450); RBC Distribution Width CV 18.1 % (11.6-14.6); RBC Distribution Width SD 59.8 fl (35.1-43.9); Red Blood Count 2.34 M/mm3 (4.2-5.4); White Blood Count 2.7 K/mm3 (4.4-11.0)
[2022-05-22 10:45] LABS: Differential Indicated SCAN CRITERIA MET
[2022-05-22 10:58] LABS: AST(SGOT) 44 U/L (15-37); Alanine Aminotransfer ALT/SGPT 28 U/L (13-56); Albumin, Serum 2.8 g/dL (3.2-5.0); Alkaline Phosphatase 277 U/L (45-117); Anion Gap 5 (5-15); BUN 29 mg/dL (7-18); BUN/Creat Ratio 14.9 RATIO (10-20); Bilirubin, Direct 0.29 mg/dL (0.00-0.30); Calcium,Total 7.8 mg/dL (8.5-10.1); Chloride 118 mmol/L (98-107); Creatinine, Serum 1.94 mg/dL (0.55-1.02); EST Glomerular Filtration Rate 29 mL/min (>60); Est Glom Filt Rate - Afr Amer 35 mL/min (>60); Estimated Creatinine Clearance 35.05 ml/min; Globulin 3.5 g/dL (2.2-4.2); Glucose 229 mg/dL (74-106); Lipase 181 U/L (73-393); Potassium 4.8 mmol/L (3.5-5.1); Protein, Total 6.3 g/dL (6.4-8.2); Sodium Level 144 mmol/L (136-145)
--- NOTE | 2022-05-22 10:59 | RAD_ITS ---
STUDY: X-RAY - ABDOMEN/PELVIS REASON FOR EXAM: Female, 51 years old. NG Insertion TECHNIQUE: Single AP view of the abdomen / pelvis. COMPARISON: Comparison is made with prior study dated 05/14/2022. FINDINGS: A nasogastric tube is in place. The tip is in the distal portion of the stomach. A TIPS catheter is seen in the right upper quadrant. The patient is status post cholecystectomy. The visualized liver, spleen and kidneys are grossly normal in size and morphology. Normal soft tissue structures. There are mild degenerative changes of the visualized lumbar spine. RAD/Abdomen Single View (Portable) IMPRESSION: The tip of the nasogastric tube is in the distal portion of the stomach. Electronically Signed: Dash Shin MD at 11:16 EDT ,
[2022-05-22 11:05] LABS: Platelet Estimate MOD DEC (ADEQ)
[2022-05-22] MEDS: Lactulose 20 GM/30 ML UDC 30 GM PO (11:14)
--- NOTE | 2022-05-22 13:12 | HP.PCM.HOS_ITS ---
HPI - General General Date of Admission: 05/22/22 Date of Service: 05/22/22 Chief Complaint: confusion HPI Narrative ANA GARCÍA, is a 51 F who presents with confusion. Patient has a history of noncompliance but the patient's significant other told nursing that she has been compliant with her lactulose. Patient had ammonia level of 292. Patient had to have an NG tube placed and patient did receive lactulose through the NG tube. On my evaluation, the patient is unresponsive and does not follow any commands. REPLACED BY [facility] Medical History Acute kidney injury superimposed on chronic kidney disease Acute on chronic renal insufficiency Anemia Anemia Autoimmune hepatitis Bacteremia due to methicillin resistant Staphylococcus epidermidis Bipolar disorder CHI (closed head injury) Chronic pain Cirrhosis of liver Depression Diabetes mellitus Diabetes mellitus, type 2 Encephalopathy acute Reilly's thyroiditis Hepatic encephalopathy Hepatitis History of hypothyroidism Hypertension Kidney disease MRSA bacteremia Pancreatitis Pancytopenia Pancytopenia Pancytopenia Peripheral neuropathy Schizoaffective disorder Severe sepsis Splenomegaly Stage 3b chronic kidney disease (CKD) Home Medications magnesium oxide 400 mg PO BID supplement 03/14/17 [History Last Taken 03/22/22] rifaximin 550 mg tablet (Xifaxan) 550 mg PO BID IBS 11/04/17 [History Last Taken 03/22/22] pantoprazole 40 mg tablet,delayed release 40 mg PO DAILY GERD 03/20/21 [History Last Taken 03/22/22] sertraline 50 mg tablet 50 mg PO DAILY DEPRESSION 03/20/21 [History Last Taken 03/22/22] sucralfate 1 gram tablet (Carafate) 1 g PO ACHS STOMACH 03/20/21 [History Last Taken 03/22/22] ursodiol 300 mg capsule 300 mg PO BID LIVER 04/25/21 [History Last Taken 03/22/22] carbamazepine 100 mg tablet,extended release,12 hr 100 mg PO BID seizures 04/29/21 [History Last Taken 03/22/22] zinc 50 mg tablet 50 mg PO DAILY SUPPLEMENT 09/18/21 [History Last Taken 03/22/22] carvedilol 3.125 mg tablet 3.125 mg PO BID HEART 03/23/22 [History Last Taken 03/22/22] insulin degludec 100 unit/mL (3 mL) subcutaneous pen (Tresiba FlexTouch U-100 insulin) 10 - 20 unit subcut DAILY DM 04/16/22 [History Last Taken Unknown] lurasidone 40 mg tablet 40 mg PO DAILY MOOD 04/16/22 [History Last Taken Unknown] torsemide 20 mg tablet 10 mg PO DAILY diuretic 04/16/22 [History Last Taken Unknown] spironolactone 50 mg tablet 50 mg PO DAILY #30 tabs 04/18/22 [Rx Last Taken Unknown] amlodipine 2.5 mg tablet 2.5 mg PO DAILY BP 05/14/22 [History Last Taken Unknown] ergocalciferol (vitamin D2) 1,250 mcg (50,000 unit) capsule (Vitamin D2) 1,250 unit PO MOTH SUPPLMENT 05/14/22 [History Last Taken Unknown] insulin lispro 100 unit/mL subcutaneous pen (Humalog KwikPen (U-100) Insulin) 8 unit subcut TID DM 05/14/22 [History Last Taken Unknown] levothyroxine 75 mcg tablet 75 mcg PO DAILY THYROID 05/14/22 [History Last Taken Unknown] ondansetron 4 mg disintegrating tablet 8 mg PO Q8H PRN Nausea And Vomiting 05/14/22 [History Last Taken Unknown] pregabalin 25 mg capsule 25 mg PO BID PAIN 05/14/22 [History Last Taken Unknown] Allergy/AdvReac Type Severity Reaction Status Date / Time adhesive Allergy Rash Verified 05/14/22 13:50 escitalopram oxalate Allergy blindness Verified 05/14/22 13:50 [From Lexapro] Fish Containing Products Allergy Other Verified 05/14/22 13:50 gabapentin [From Neurontin] Allergy Alan Verified 05/14/22 13:50 Jez's Syndrome lamotrigine [From Lamictal] Allergy Blindness Verified 05/14/22 13:50 topiramate [From Topamax] Allergy Other Verified 05/14/22 13:50 sour cream AdvReac Severe Anaphylaxis Uncoded 05/14/22 14:51 Preservatives AdvReac Intermediate passed Uncoded 05/14/22 14:50 out, lungs deflated Family History Father CVA (cerebral vascular accident) Myocardial infarction Heart disease CAD (coronary artery disease) Grandmother CHF (congestive heart failure) Sister Hypertension Mother Heart disease Surgical History H/O: hysterectomy History of abdominal paracentesis (10/2019) History of appendectomy History of cholecystectomy S/P TIPS (transjugular intrahepatic portosystemic shunt) Social History household members: significant other housing: house Smoking Status: Unknown if ever smoked alcohol intake: never details: Unknown substance use type: does not use ROS Review of Systems ROS Unobtainable: due to encephalopathy Vital Signs Vital Signs Vital Signs: 05/22/22 10:18 05/22/22 10:22 05/22/22 10:22 Temperature 37.1 C 37.1 C Temperature Source Temporal Temporal Pulse Rate 69 69 Respiratory Rate 19 H 19 H Respiratory Effort Normal Non-Labored Respiratory Pattern Normal Blood Pressure 187/82 H 187/82 H Blood Pressure Mean 117 117 Blood Pressure Source Blood Pressure Position Blood Pressure Location Pulse Ox 100 100 Oxygen Delivery Method Room Air Room Air 05/22/22 11:21 05/22/22 12:34 Temperature 36.0 C L 36.8 C Temperature Source Temporal Temporal Pulse Rate 73 71 Respiratory Rate 22 H 18 Respiratory Effort Respiratory Pattern Blood Pressure 182/78 H 188/80 H Blood Pressure Mean 112 116 Blood Pressure Source Monitor Blood Pressure Position Semi-Fowlers Blood Pressure Location Right Arm Pulse Ox 100 99 Oxygen Delivery Method Room Air Room Air Weight Weight: 84 kg Body Mass Index (BMI) 29.5 Physical Exam Const Constitutional Narrative: Unresponsive to verbal stimuli. Positive gag reflex. Head keeps turning to the left. Eyes are roving. Pupils are equal and reactive to light and accommodation. HEENT normocephalic and head/scalp atraumatic Cardio regular rate, regular rhythm, S1 normal heart sound and S2 normal heart sound GI normal to inspection, nondistended, normoactive bowel sounds, soft to palpation, non-tender and non-distended Neuro Neuro Narrative: Limbs are stiff. Patient's lower extremities are stiff and unable to passively bend her legs nor her left upper extremity. No clonus Results Lab / Micro Data Result Diagrams: 05/22/22 10:30 05/22/22 10:30 Labs: Laboratory Results - last 24 hr 05/22/22 10:30: WBC 2.7 L, RBC 2.34 L, Hgb 7.3 L, Hct 22.3 L, MCV 95.3, MCH 31.2, MCHC 32.7, RDW Std Deviation 59.8 H, RDW Coeff of Valentina 18.1 H, Plt Count 55 L, MPV 11.9, Immature Gran % (Auto) 0.700, Neut % (Auto) 71.2 H, Lymph % (Auto) 11.8 L, Nye % (Auto) 8.9, Eos % (Auto) 5.9 H, Baso % (Auto) 1.5 H, Absolute Neuts (auto) 1.9 L, Absolute Lymphs (auto) 0.32 L, Nucleated RBC % 0, Differential Comment COMMENT, Diff Path Review March foll, Platelet Estimate MOD 05/22/22 10:30: Sodium 144, Potassium 4.8, Chloride 118 H, Carbon Dioxide 21.0, Anion Gap 5, BUN 29 H, Creatinine 1.94 H, Estim Creat Clear Calc 35.05, Est GFR (MDRD) Af Amer 35 L, Est GFR (MDRD) Non-Af 29 L, BUN/Creatinine Ratio 14.9, Glucose 229 H, Calcium 7.8 L, Total Bilirubin 0.60, Direct Bilirubin 0.29, AST 44 H, ALT 28, Alkaline Phosphatase 277 H, Total Protein 6.3 L, Albumin 2.8 L, Globulin 3.5, Lipase 181 05/22/22 10:30: Ammonia 292.0 H Radiology Impression Brain CT 05/22/22 10:40 IMPRESSION: Stable examination. No acute abnormality is seen. Electronically Signed: Dash Shin MD at 11:05 EDT , Assessment & Plan Assessment/Plan (1) Encephalopathy: PLAN: Concern is for this being hepatic encephalopathy given her extremely high ammonia level and history of noncompliance. Clinically it more than just confusion as she has very stiff extremities. Patient does have a positive gag reflex but still I am concerned that patient may be having a potential seizure. I have ordered lorazepam to be administered and ordered an EEG. We will continue to treat her for hepatic encephalopathy with the lactulose and rifaximin. (2) Autoimmune hepatitis: PLAN: We will hold the patient's ursodiol for now. Patient does have a history of TIPS. This TIPS could be likely contributing to this frequent hospitalizations for hepatic encephalopathy. There is some mention of revision or reversal of the TIPS on previous documentation. PLAN: Plan 3. Chronic medical conditions * Depression: Sertraline currently on hold * Hypothyroidism continue with levothyroxine * Hypertension: Continue with amlodipine 4. VTE prophylaxis with SCDs. Charges/Coding Visit Charges Inpatient E&M: 13765 Init Hosp L3
[2022-05-22 13:21] LABS: Bedside Glucose 181 mg/dL (74-106)
[2022-05-22] MEDS: LORazepam 2 MG/ML Syringe IV (13:27)
[2022-05-22] MEDS: Lactulose 20 GM/30 ML UDC 40 GM NG ×2 (14:21→22:07)
[2022-05-22] MEDS: amLODIPine 2.5 MG Tablet NG (14:21)
[2022-05-22 17:41] LABS: Bedside Glucose 142 mg/dL (74-106)
[2022-05-22] MEDS: rifAXIMin 550 MG Tablet NG (22:07)
[2022-05-23] VITALS (18 sets, daily range): BP systolic 147–189; BP diastolic 64–84; PULSE 72–82; RESP 14–18; TEMP 36.6–36.8; O2SAT 96–99
[2022-05-23 00:26] LABS: Bedside Glucose 131 mg/dL (74-106)
[2022-05-23] MEDS: hydrALAZINE 20 MG/ML Vial 5 MG IV ×4 (03:30→21:14)
[2022-05-23] MEDS: 0.9% Saline Lock 10 ML Syringe IV (03:30)
[2022-05-23] MEDS: Lactulose 20 GM/30 ML UDC 40 GM NG (05:25)
[2022-05-23] MEDS: Levothyroxine 75 MCG Tablet NG (05:25)
[2022-05-23 06:01] LABS: Bedside Glucose 146 mg/dL (74-106)
--- NOTE | 2022-05-23 08:09 | TELEMED_ITS ---
[facility] has confirmed receipt of a request for visit. This document confirms receipt of the order initiating the consult. To find the results of the consultation, please view the patient's reports for the scanned Telemed Consult.
--- NOTE | 2022-05-23 08:40 | PN.HOSP_ITS ---
Subjective Subjective More alert today. Still confused and unable to get adequate history from her. Objective Data Objective Data Vital Signs: Vital Signs Temp Pulse Resp BP Pulse Ox O2 Del Method 36.7 C 81 14 178/79 H 97 Room Air 05/23/22 06:00 05/23/22 07:26 05/23/22 06:00 05/23/22 06:00 05/23/22 06:00 05/23/22 06:00 Oxygen Delivery Method Room Air Weight: 84 kg Body Mass Index (BMI) 29.5 Intake & Output: Intake and Output for Last 24 Hours 05/21/22 05/22/22 05/23/22 23:59 23:59 23:59 Intake Total 360 / 360 250 / 250 Balance 360 / 360 250 / 250 Medical Nutrition Assessment Dietitian: Malnutrition Criteria Met Start: 05/22/22 15 :01 Freq: Status: Active Protocol: Document 05/22/22 15:01 (Rec: 05/22/22 15:01 [id number]) Nutrition Malnutrition Evidence of Malnutrition Exists Yes Malnutrition (severe): Chronic Evidenced By Suboptimal Energy Intake ( Severe),Weight Loss (Severe) Clinical Problem Chronic Disease or Condition Related Malnutrition Etiology severe, chronic malnutrition as evidenced by inadequate oral intake w/ increased energy needs d/t hepatic failure Signs/Symptoms as evidenced by unintentional wt loss of 20.8#/10% x 2 months; estimated PO intake meeting <75% of estimated energy needs >2 months Status Active Problem Recommendation Dietitian Recommendations/Changes recommend regular/sodium restricted diet as tolerated given malnutrition; will consider CHO controlled diet as adequate PO intake is established. Glucerna 120mL 4x /day w/ medpass when PO diet advanced. Lab / Micro Data Result Diagrams: 05/22/22 10:30 05/22/22 10:30 Labs: Laboratory Results - last 24 hr 05/22/22 10:30: WBC 2.7 L, RBC 2.34 L, Hgb 7.3 L, Hct 22.3 L, MCV 95.3, MCH 31.2, MCHC 32.7, RDW Std Deviation 59.8 H, RDW Coeff of Valentina 18.1 H, Plt Count 55 L, MPV 11.9, Immature Gran % (Auto) 0.700, Neut % (Auto) 71.2 H, Lymph % (Auto) 11.8 L, Weld % (Auto) 8.9, Eos % (Auto) 5.9 H, Baso % (Auto) 1.5 H, Absolute Neuts (auto) 1.9 L, Absolute Lymphs (auto) 0.32 L, Nucleated RBC % 0, Differential Comment COMMENT, Diff Path Review May foll, Platelet Estimate MOD 05/22/22 10:30: Sodium 144, Potassium 4.8, Chloride 118 H, Carbon Dioxide 21.0, Anion Gap 5, BUN 29 H, Creatinine 1.94 H, Estim Creat Clear Calc 35.05, Est GFR (MDRD) Af Amer 35 L, Est GFR (MDRD) Non-Af 29 L, BUN/Creatinine Ratio 14.9, Glucose 229 H, Calcium 7.8 L, Total Bilirubin 0.60, Direct Bilirubin 0.29, AST 44 H, ALT 28, Alkaline Phosphatase 277 H, Total Protein 6.3 L, Albumin 2.8 L, Gl obulin 3.5, Lipase 181 05/22/22 10:30: Ammonia 292.0 H 05/22/22 12:50: POC Glucose 181 H 05/22/22 17:33: POC Glucose 142 H 05/23/22 00:16: POC Glucose 131 H 05/23/22 05:44: POC Glucose 146 H Radiography Diagnostic Testing: Radiology Impression Brain CT 05/22/22 10:40 IMPRESSION: Stable examination. No acute abnormality is seen. Electronically Signed: Dash Shin MD at 11:05 EDT , KUB X-Ray 05/22/22 10:59 IMPRESSION: The tip of the nasogastric tube is in the distal portion of the stomach. Electronically Signed: Dash Shin MD at 11:16 EDT , Physical Exam Const Constitutional Narrative: Still groggy but withdraws to pain. Able to mumble some things incoherently when asked questions. Resp normal respiratory effort, no retractions and no use of accessory muscles Cardio regular rate, regular rhythm, S1 normal heart sound and S2 normal heart sound GI normal to inspection, nondistended, normoactive bowel sounds, soft to palpation, non-tender and non-distended Assessment & Plan Assessment/Plan (1) Encephalopathy: PLAN: Secondary to ammonia toxicity improved concern is for this being hepatic encephalopathy given her extremely high ammonia level and history of noncompliance. Clinically it more than just confusion as she has very stiff extremities. We will continue to treat her for hepatic encephalopathy with the lactulose and rifaximin. EEG negative for seizures. Patient is more alert today. (2) Autoimmune hepatitis: PLAN: We will hold the patient's ursodiol for now. Patient does have a history of TIPS. This TIPS could be likely contributing to this frequent hospitalizations for hepatic encephalopathy. There is some mention of revision or reversal of the TIPS on previous documentation. Patient will need to follow-up with gastroenterology to see if adjusting or moving the TIPS would be of benefit given her frequent bouts of hepatic encephalopathy. PLAN: Plan 3. Chronic medical conditions * Depression: Sertraline currently on hold * Hypothyroidism continue with levothyroxine * Hypertension: Continue with amlodipine 4. VTE prophylaxis with SCDs. Charges/Coding Visit Charges Inpatient E&M: 37731 Subs Hosp L2
[2022-05-23] MEDS: amLODIPine 2.5 MG Tablet NG (08:53)
[2022-05-23] MEDS: rifAXIMin 550 MG Tablet NG (08:53)
[2022-05-23 12:20] LABS: Bedside Glucose 178 mg/dL (74-106)
[2022-05-23 12:58] LABS: Pathologist Review Reviewed
[2022-05-23] MEDS: Lactulose 20 GM/30 ML UDC 40 GM PO ×2 (13:19→21:05)
[2022-05-23 17:56] LABS: Bedside Glucose 137 mg/dL (74-106)
[2022-05-23] MEDS: rifAXIMin 550 MG Tablet PO (21:05)
[2022-05-24] MEDS: Insulin Lispro 100 UNIT/ML INSULN.PEN SC ×2 (00:26→11:18)
[2022-05-24] MEDS: 0.9% Saline Lock 10 ML Syringe IV (00:26)
[2022-05-24 00:51] LABS: Bedside Glucose 155 mg/dL (74-106)
[2022-05-24 03:00] VITALS: BP 155/69; PULSE 80; RESP 16; TEMP 36.8; O2SAT 98
[2022-05-24] MEDS: Levothyroxine 75 MCG Tablet PO (05:53)
[2022-05-24] MEDS: Lactulose 20 GM/30 ML UDC 40 GM PO ×2 (05:53→13:13)
[2022-05-24 06:15] LABS: Bedside Glucose 135 mg/dL (74-106)
[2022-05-24 07:53] VITALS: BP 161/62; PULSE 74; RESP 18; TEMP 37.2; O2SAT 98
[2022-05-24] MEDS: rifAXIMin 550 MG Tablet PO (07:56)
[2022-05-24] MEDS: amLODIPine 2.5 MG Tablet PO (07:56)
--- NOTE | 2022-05-24 08:20 | PN.HOSP_ITS ---
Subjective Subjective Feels back to normal. States that she has been taking lactulose TID at home. Objective Data Objective Data Vital Signs: Vital Signs Temp Pulse Resp BP Pulse Ox O2 Del Method 37.2 C 74 18 161/62 H 98 Room Air 05/24/22 07:53 05/24/22 07:53 05/24/22 07:53 05/24/22 07:53 05/24/22 07:53 05/24/22 07:53 Oxygen Delivery Method Room Air Weight: 84 kg Body Mass Index (BMI) 29.5 Intake & Output: Intake and Output for Last 24 Hours 05/22/22 05/23/22 05/24/22 23:59 23:59 23:59 Intake Total 360 / 360 1940 / 2180 480 / 480 Balance 360 / 360 1940 / 2180 480 / 480 Medical Nutrition Assessment Dietitian: Malnutrition Criteria Met Start: 05/22/22 15:01 Freq: Status: Active Protocol: Document 05/22/22 15:01 (Rec: 05/22/22 15:01 [id number]) Nutrition Malnutrition Evidence of Malnutrition Exists Yes Malnutrition (severe): Chronic Evidenced By Suboptimal Energy Intake ( Severe),Weight Loss (Severe) Clinical Problem Chronic Disease or Condition Related Malnutrition Etiology severe, chronic malnutrition as evidenced by inadequate oral intake w/ increased energy needs d/t hepatic failure Signs/Symptoms as evidenced by unintentional wt loss of 20.8#/10% x 2 months; estimated PO intake meeting <75% of estimated energy needs >2 months Status Active Problem Recommendation Dietitian Recommendations/Changes recommend regular/sodium restricted diet as tolerated given malnutrition; will consider CHO controlled diet as adequate PO intake is established. Glucerna 120mL 4x /day w/ medpass when PO diet advanced. Lab / Micro Data Result Diagrams: 05/22/22 10:30 05/22/22 10:30 Labs: Laboratory Results - last 24 hr 05/22/22 10:30: Diff Path Review Reviewed 05/23/22 11:52: POC Glucose 178 H 05/23/22 17:08: POC Glucose 137 H 05/24/22 00:23: POC Glucose 155 H 05/24/22 05:52: POC Glucose 135 H Physical Exam Const alert and no apparent distress Neuro Sensorium / Orientation: awake and alert Psych affect normal Assessment & Plan Assessment/Plan (1) Encephalopathy: PLAN: Resolved Secondary to ammonia toxicity improved continue lactulose and rifaximin. EEG negative for seizures. Patient is more alert today. (2) Autoimmune hepatitis: PLAN: We will hold the patient's ursodiol for now. Patient does have a history of TIPS. This TIPS could be likely contributing to this frequent hospitalizations for hepatic encephalopathy. There is some mention of revision or reversal of the TIPS on previous documentation. Patient will need to follow-up with gastroenterology to see if adjusting or moving the TIPS would be of benefit given her frequent bouts of hepatic encephalopathy. PLAN: Plan 3. Chronic medical conditions * Depression: Sertraline currently on hold * Hypothyroidism continue with levothyroxine * Hypertension: Continue with amlodipine 4. VTE prophylaxis with SCDs. XENA herrerae
[2022-05-24 11:40] LABS: Bedside Glucose 171 mg/dL (74-106)
--- NOTE | 2022-05-24 12:07 | PCM.DC ---
Discharge Instructions Diet Discharge Diet: No restrictions Dressing / Incision Call your doctor if you observe: - (confusion) Follow Up Care Test Results: Test results from this visit will be discussed in further detail at your follow-up appointment, if applicable. Discharge Plan Admission Admit Date/Time: 05/22/22 11:19 Primary Reason for Your Visit: hepatic encephalopathy Attending Provider: Isaiah Traore Primary Care Provider: Janay Canchola Discharge Orders/Prescriptions Prescriptions: New lactulose 20 gram/30 mL Solution 40 g PO TID Qty: 2880 0RF Continued magnesium oxide 400 MG tablet 400 mg PO BID Label Comments: PER PHARMACY NOT COVERED BY INSURANCE THROUGH [employer]. PHARMACY UNSURE IF SHE IS GETTING OTC Xifaxan 550 MG tablet 550 mg PO BID sucralfate [Carafate] 1 gram Tablet 1 g PO ACHS pantoprazole 40 mg Tablet,Delayed Release (Dr/Ec) 40 mg PO DAILY sertraline 50 mg Tablet 50 mg PO DAILY ursodiol 300 mg capsule 300 mg PO BID Label Comments: . carbamazepine 100 mg Tablet Extended Release 12 Hr 100 mg PO BID zinc 50 mg Tablet 50 mg PO DAILY Label Comments: PER PHARMACY NOT COVERED BY INSURANCE THROUGH [employer]. PHARMACY UNSURE IF SHE IS GETTING OTC carvedilol 3.125 mg tablet 3.125 mg PO BID torsemide 20 mg Tablet 10 mg PO DAILY lurasidone 40 mg Tablet 40 mg PO DAILY Tresiba FlexTouch U-100 100 unit/mL (3 mL) Insulin Pen 10 - 20 unit SUBCUT DAILY Label Comments: MAX OF 20 UNITS DAILY. TRESIBA NOT FILLED PER [employer]. INSURANCE PREFERS [facility]. spironolactone 50 mg tablet 50 mg PO DAILY Qty: 30 0RF amlodipine 2.5 mg Tablet 2.5 mg PO DAILY ergocalciferol (vitamin D2) [Vitamin D2] 1,250 mcg (50,000 unit) capsule 1,250 unit PO MOTH levothyroxine 75 mcg tablet 75 mcg PO DAILY ondansetron 4 mg tablet,disintegrating 8 mg PO Q8H PRN (Reason: Nausea And Vomiting) insulin lispro [Humalog KwikPen Insulin] 100 unit/mL insulin pen 8 unit subcut TID Label Comments: +SLIDING SCALE UP TO 40 UNITS DAILY. pregabalin 25 mg capsule 25 mg PO BID Referrals / Follow Up: Janay Canchola MD [Primary Care Provider] - Within 1 Week Disposition Disposition (needs filled in before D/C Order can be placed): Home, Self Care
--- NOTE | 2022-05-24 12:11 | PCM.DC.SUM ---
Providers Date of Admission: 05/22/22 Primary Care Physician: Dr. Janay Canchola MD Reason For Visit: HEPATIC ENCEPHALOPATHY Diagnosis Discharge Diagnosis (1) Encephalopathy: Status: Acute Code(s): G93.40 - Encephalopathy, unspecified Plan: Resolved Secondary to ammonia toxicity improved continue lactulose and rifaximin. EEG negative for seizures. Patient is more alert today. (2) Autoimmune hepatitis: Status: Acute Code(s): K75.4 - Autoimmune hepatitis Plan: We will hold the patient's ursodiol for now. Patient does have a history of TIPS. This TIPS could be likely contributing to this frequent hospitalizations for hepatic encephalopathy. There is some mention of revision or reversal of the TIPS on previous documentation. Patient will need to follow-up with gastroenterology to see if adjusting or moving the TIPS would be of benefit given her frequent bouts of hepatic encephalopathy. Plan 3. Chronic medical conditions Depression: Sertraline currently on hold Hypothyroidism continue with levothyroxine Hypertension: Continue with amlodipine 4. VTE prophylaxis with SCDs. XENA javier,e Medications at Discharge Home Medications magnesium oxide 400 mg PO BID supplement 03/14/17 rifaximin 550 mg tablet (Xifaxan) 550 mg PO BID IBS 11/04/17 pantoprazole 40 mg tablet,delayed release 40 mg PO DAILY GERD 03/20/21 sertraline 50 mg tablet 50 mg PO DAILY DEPRESSION 03/20/21 sucralfate 1 gram tablet (Carafate) 1 g PO ACHS STOMACH 03/20/21 ursodiol 300 mg capsule 300 mg PO BID LIVER 04/25/21 carbamazepine 100 mg tablet,extended release,12 hr 100 mg PO BID seizures 04/29/21 zinc 50 mg tablet 50 mg PO DAILY SUPPLEMENT 09/18/21 carvedilol 3.125 mg tablet 3.125 mg PO BID HEART 03/23/22 insulin degludec 100 unit/mL (3 mL) subcutaneous pen (Tresiba FlexTouch U-100 insulin) 10 - 20 unit subcut DAILY DM 04/16/22 lurasidone 40 mg tablet 40 mg PO DAILY MOOD 04/16/22 torsemide 20 mg tablet 10 mg PO DAILY diuretic 04/16/22 spironolactone 50 mg tablet 50 mg PO DAILY #30 tabs 04/18/22 amlodipine 2.5 mg tablet 2.5 mg PO DAILY BP 05/14/22 ergocalciferol (vitamin D2) 1,250 mcg (50,000 unit) capsule (Vitamin D2) 1,250 unit PO MOTH SUPPLMENT 05/14/22 insulin lispro 100 unit/mL subcutaneous pen (Humalog KwikPen (U-100) Insulin) 8 unit subcut TID DM 05/14/22 levothyroxine 75 mcg tablet 75 mcg PO DAILY THYROID 05/14/22 ondansetron 4 mg disintegrating tablet 8 mg PO Q8H PRN Nausea And Vomiting 05/14/22 pregabalin 25 mg capsule 25 mg PO BID PAIN 05/14/22 lactulose 20 gram/30 mL oral solution 40 g (60 mL) PO TID #2,880 mL 05/24/22 Hospital Course Operations None Procedures Electroencephalogram Summary of Care Provided Minutes Spent on Discharge: 28 Medical Records Data Medical Nutrition Assessment Dietitian: Malnutrition Criteria Met Start: 05/22/22 15:01 Freq: Status: Active Protocol: Document 05/22/22 15:01 (Rec: 05/22/22 15:01 [id number]) Nutrition Malnutrition Evidence of Malnutrition Exists Yes Malnutrition (severe): Chronic Evidenced By Suboptimal Energy Intake ( Severe),Weight Loss (Severe) Clinical Problem Chronic Disease or Condition Related Malnutrition Etiology severe, chronic malnutrition as evidenced by inadequate oral intake w/ increased energy needs d/t hepatic failure Signs/Symptoms as evidenced by unintentional wt loss of 20.8#/10% x 2 months; estimated PO intake meeting <75% of estimated energy needs >2 months Status Active Problem Recommendation Dietitian Recommendations/Changes recommend regular/sodium restricted diet as tolerated given malnutrition; will consider CHO controlled diet as adequate PO intake is established. Glucerna 120mL 4x /day w/ medpass when PO diet advanced. Weight / BMI Weight Weight: 84 kg Body Mass Index (BMI) 29.5 ABG / Lab / Microbiology Data Result Diagrams: 05/22/22 10:30 05/22/22 10:30 Laboratory: Laboratory Results - last 24 hr 05/22/22 10:30: Diff Path Review Reviewed 05/23/22 11:52: POC Glucose 178 H 05/23/22 17:08: POC Glucose 137 H 05/24/22 00:23: POC Glucose 155 H 05/24/22 05:52: POC Glucose 135 H 05/24/22 11:16: POC Glucose 171 H D/C Instructions Discharge Diet: No restrictions Call your doctor if you observe: - (confusion) Meaningful Use Info Meaningful Use Diagnoses (Choose all that apply): None applicable Discharge Plan Admission Admit Date/Time: 05/22/22 11:19 Primary Reason for Your Visit: hepatic encephalopathy Attending Provider: Isaiah Traore Primary Care Provider: Janay Canchola Discharge Orders/Prescriptions Prescriptions: New lactulose 20 gram/30 mL Solution 40 g PO TID Qty: 2880 0RF Continued magnesium oxide 400 MG tablet 400 mg PO BID Label Comments: PER PHARMACY NOT COVERED BY INSURANCE THROUGH [employer]. PHARMACY UNSURE IF SHE IS GETTING OTC Xifaxan 550 MG tablet 550 mg PO BID sucralfate [Carafate] 1 gram Tablet 1 g PO ACHS pantoprazole 40 mg Tablet,Delayed Release (Dr/Ec) 40 mg PO DAILY sertraline 50 mg Tablet 50 mg PO DAILY ursodiol 300 mg capsule 300 mg PO BID Label Comments: . carbamazepine 100 mg Tablet Extended Release 12 Hr 100 mg PO BID zinc 50 mg Tablet 50 mg PO DAILY Label Comments: PER PHARMACY NOT COVERED BY INSURANCE THROUGH [employer]. PHARMACY UNSURE IF SHE IS GETTING OTC carvedilol 3.125 mg tablet 3.125 mg PO BID torsemide 20 mg Tablet 10 mg PO DAILY lurasidone 40 mg Tablet 40 mg PO DAILY Tresiba FlexTouch U-100 100 unit/mL (3 mL) Insulin Pen 10 - 20 unit SUBCUT DAILY Label Comments: MAX OF 20 UNITS DAILY. TRESIBA NOT FILLED PER [employer]. INSURANCE PREFERS [employer]. spironolactone 50 mg tablet 50 mg PO DAILY Qty: 30 0RF amlodipine 2.5 mg Tablet 2.5 mg PO DAILY ergocalciferol (vitamin D2) [Vitamin D2] 1,250 mcg (50,000 unit) capsule 1,250 unit PO MOTH levothyroxine 75 mcg tablet 75 mcg PO DAILY ondansetron 4 mg tablet,disintegrating 8 mg PO Q8H PRN (Reason: Nausea And Vomiting) insulin lispro [Humalog KwikPen Insulin] 100 unit/mL insulin pen 8 unit subcut TID Label Comments: +SLIDING SCALE UP TO 40 UNITS DAILY. pregabalin 25 mg capsule 25 mg PO BID Referrals / Follow Up: Talampas,Janay D, MD [Primary Care Provider] - Within 1 Week Disposition Disposition (needs filled in before D/C Order can be placed): Home, Self Care Charges/Coding Visit Charges Inpatient E&M: [id number] Disch Hosp
--- NOTE | 2022-05-24 12:21 | CASEMGMT ---
This RN CM to room to discuss discharge plan with pt and she states no concerns with going home at time of discharge. Pt is A/Ox4. LENARD order for [facility] placed and Ashlee at [facility] notified of pt discharge. Pt voices no further questions/concerns/needs. SStaten TAMIKO MELLO
--- NOTE | 2022-05-24 12:21 | CASEMGMT ---
This RN CM to room to discuss discharge plan with pt and she states no concerns with going home at time of discharge and declines any further therapy/resources. Pt is A/Ox4. Pt voices no further questions/concerns/needs. SStaten TAMIKO CM
[2022-05-24 13:11] VITALS: BP 184/66; PULSE 78; RESP 18; TEMP 36.6; O2SAT 99
--- NOTE | 2022-05-24 14:09 | CASEMGMT ---
CM Readmission Review: Index admission: 05/14/22 thru 05/15/22 Hepatic Encephalopathy. Discharge disposition: Home with [facility] Current admission: 05/22/22 Hepatic encephalopathy. Pt with previous TIPS procedure and is following up with the [facility] for possible liver transplant. Pt with recurrent episodes of hepatic encephalopathy despite adherence to lactulose regimen per significant other. Pt adherent to outpatient follow-up appointments. Dr. Traore notes TIPS procedure may be etiology for recurrent encephalopathy and revision may be required. Pt to f/u with PCP and GI for further delineation. Jocelin Robbins RN CM
== END 2022-05-24 14:20 | disposition home or self-care (01) | DRG 441 ==
LOC: ED 11:25 → PCU 11:35
PROVIDERS: Emergency Provider Emergency Medicine; PCP Internal Medicine
DX: K72.00 Acute and subacute hepatic failure without coma (principal); E43 Unspecified severe protein-calorie malnutrition; D61.818 Other pancytopenia; E11.22 Type 2 diabetes mellitus with diabetic chronic kidney disease; E11.42 Type 2 diabetes mellitus with diabetic polyneuropathy; N18.32 Chronic kidney disease, stage 3b; F31.9 Bipolar disorder, unspecified; Z79.4 Long term (current) use of insulin; F25.9 Schizoaffective disorder, unspecified; K75.4 Autoimmune hepatitis; I12.9 Hypertensive chronic kidney disease with stage 1 through stage 4 chronic kidney disease, or unspecified chronic kidney disease; E03.9 Hypothyroidism, unspecified; G89.29 Other chronic pain
CPT/HCPCS: 70450; 74018; 80048; 80076; 82140; 82962; 83690; 85025; 95819; 97802; 99285; A4216

== ENCOUNTER 2022-06-11 00:49 | Emergency (ER) | payer MEDICARE, MEDICAID, SELFPAY ==
[2022-06-11 00:50] VITALS: BP 184/79; PULSE 66; RESP 18; TEMP 36.4; O2SAT 95; BMI 30.1
--- NOTE | 2022-06-11 01:09 | CT_ITS ---
STUDY: CT BRAIN WITHOUT CONTRAST REASON FOR EXAM: Female, 51 years old. fall RADIATION DOSAGE (If Supplied By Facility): CTDIvol = ( 44.99 ) mGy, DLP = ( 812.98 ) mGycm TECHNIQUE: Transaxial CT imaging of the brain was performed without administration of intravenous contrast material. Individualized dose optimization techniques were used for this CT. COMPARISON: 05/22/2022 FINDINGS: BRAIN: Normal thakkar/white matter differentiation. VENTRICLES: No hydrocephalus. EXTRA-AXIAL SPACES: No hemorrhages, fluid collections, or masses. CALVARIUM/SKULL BASE: Normal. FACE/SINUSES: Visualized portions normal. SOFT TISSUES: Posterior left scalp soft tissue swelling. OTHER: None. CONCLUSION: No intracranial hemorrhage or depressed calvarial fracture. Electronically Signed: Himanshu Trujillo MD at 2:05 EDT , CT/Brain/Head without Contrast IMPRESSION: undefined
--- NOTE | 2022-06-11 01:09 | CT_ITS ---
STUDY: CT CERVICAL SPINE WITHOUT CONTRAST REASON FOR EXAM: Female, 51 years old. fall RADIATION DOSAGE (If Supplied By Facility): CTDIvol = ( 22.58 ) mGy, DLP = ( 500.53 ) mGycm TECHNIQUE: High resolution transaxial imaging was performed without contrast material. Sagittal and coronal images were reconstructed. Individualized dose optimization techniques were used for this CT. COMPARISON: CT C-spine 07/13/2021 FINDINGS: ALIGNMENT: Nonspecific reversal of the normal cervical lordosis. VERTEBRAL BODIES: No fracture or acute abnormality. DISC SPACES: Multilevel degenerative change is worst in the upper cervical spine with moderate to severe stenosis worst at C3-4, similar compared to the prior.. POSTERIOR ELEMENTS: Normal. SPINAL CANAL: Normal. PARASPINAL SOFT TISSUES: Normal. LUNG APICES: Large right pleural effusion and moderate left pleural effusion. Groundglass opacities in the right apex.. OTHER: 16 x 14 mm nodule posterior and inferior to the right thyroid lobe, similar to the prior. CT/Spine Cervical without Contras IMPRESSION: 1. No acute fracture or subluxation. 2. Multilevel degenerative changes. 3. Nonspecific reversal of the normal cervical lordosis. 4. Large right and moderate left pleural effusions. 5. Right apical groundglass opacities, may represent infectious/inflammatory changes. 6. 16 mm nodule posterior and inferior to the right thyroid lobe, may represent exophytic thyroid nodule versus parathyroid adenoma. Consider further characterized with nonemergent ultrasound thyroid. Electronically Signed: Himanshu Trujillo MD at 2:11 EDT ,
--- NOTE | 2022-06-11 01:10 | EDS_ITS ---
HPI History of Present Illness Chief Complaint: Head Injury Informant: patient and spouse/S.O. Onset/Context/Timing Onset: Today Narrative Narrative: Patient fell while trying to get into the car striking her head on gravel. No loss of consciousness. She does have a scalp laceration noted. [facility] Medical History Acute kidney injury superimposed on chronic kidney disease Acute on chronic renal insufficiency Anemia Anemia Autoimmune hepatitis Autoimmune hepatitis Bacteremia due to methicillin resistant Staphylococcus epidermidis Bipolar disorder CHI (closed head injury) Chronic pain Cirrhosis of liver Debility Depression Diabetes mellitus Diabetes mellitus, type 2 Encephalopathy acute Essential hypertension Reilly's thyroiditis Hepatic encephalopathy Hepatitis History of hypothyroidism Hypertension Kidney disease MRSA bacteremia Pancreatitis Pancytopenia Pancytopenia Pancytopenia Peripheral neuropathy Schizoaffective disorder Severe sepsis Splenomegaly Stage 3b chronic kidney disease (CKD) Weakness Home Medications magnesium oxide 400 mg PO BID supplement 03/14/17 [History Last Taken 03/22/22] rifaximin 550 mg tablet (Xifaxan) 550 mg PO BID IBS 11/04/17 [History Last Taken 03/22/22] pantoprazole 40 mg tablet,delayed release 40 mg PO DAILY GERD 03/20/21 [History Last Taken 03/22/22] sertraline 50 mg tablet 50 mg PO DAILY DEPRESSION 03/20/21 [History Last Taken 03/22/22] sucralfate 1 gram tablet (Carafate) 1 g PO BID STOMACH 03/20/21 [History Last Taken 03/22/22] ursodiol 300 mg capsule 300 mg PO BID LIVER 04/25/21 [History Last Taken 03/22/22] carbamazepine 100 mg tablet,extended release,12 hr 100 mg PO BID seizures 04/29/21 [History Last Taken 03/22/22] zinc 50 mg tablet 50 mg PO DAILY SUPPLEMENT 09/18/21 [History Last Taken 03/22/22] carvedilol 3.125 mg tablet 6.25 mg PO BID HEART 03/23/22 [History Last Taken 03/22/22] insulin degludec 100 unit/mL (3 mL) subcutaneous pen (Tresiba FlexTouch U-100 insulin) 10 unit subcut DAILY DM 04/16/22 [History Last Taken Unknown] lurasidone 40 mg tablet 40 mg PO DAILY MOOD 04/16/22 [History Last Taken Unknown] torsemide 20 mg tablet 10 mg PO DAILY diuretic 04/16/22 [History Last Taken Unknown] amlodipine 2.5 mg tablet 2.5 mg PO DAILY BP 05/14/22 [History Last Taken Unknown] ergocalciferol (vitamin D2) 1,250 mcg (50,000 unit) capsule (Vitamin D2) 1,250 unit PO MOTH SUPPLMENT 05/14/22 [History Last Taken Unknown] insulin lispro 100 unit/mL subcutaneous pen (Humalog KwikPen (U-100) Insulin) 8 unit subcut TIDCM diabetes 05/14/22 [History Last Taken Unknown] levothyroxine 75 mcg tablet 75 mcg PO DAILY THYROID 05/14/22 [History Last Taken Unknown] ondansetron 4 mg disintegrating tablet 8 mg PO Q8H PRN Nausea And Vomiting 05/14/22 [History Last Taken Unknown] pregabalin 25 mg capsule 25 mg PO BID PAIN 05/14/22 [History Last Taken Unknown] lactulose 20 gram/30 mL oral solution 40 g PO TID liver failure 06/11/22 [History Last Taken Unknown] Allergy/AdvReac Type Severity Reaction Status Date / Time adhesive Allergy Rash Verified 05/14/22 13:50 escitalopram oxalate Allergy blindness Verified 05/14/22 13:50 [From Lexapro] Fish Containing Products Allergy Other Verified 05/14/22 13:50 gabapentin [From Neurontin] Allergy Alan Verified 05/14/22 13:50 Jez's Syndrome lamotrigine [From Lamictal] Allergy Blindness Verified 05/14/22 13:50 topiramate [From Topamax] Allergy Other Verified 05/14/22 13:50 sour cream AdvReac Severe Anaphylaxis Uncoded 05/14/22 14:51 Preservatives AdvReac Intermediate passed Uncoded 05/14/22 14:50 out, lungs deflated Family History Father CVA (cerebral vascular accident) Myocardial infarction Heart disease CAD (coronary artery disease) Grandmother CHF (congestive heart failure) Sister Hypertension Mother Heart disease Surgical History H/O: hysterectomy History of abdominal paracentesis (10/2019) History of appendectomy History of cholecystectomy S/P TIPS (transjugular intrahepatic portosystemic shunt) Social History household members: significant other housing: house Smoking Status: Never smoker alcohol intake: never details: Unknown substance use type: does not use ROS ROS ED Constitutional Constitutional ED: Denies chills or fever(s) Eyes Eyes: Denies change in vision or discharge from eye(s) ENT ENT ED: Denies discharge from eye(s), rhinorrhea or sore throat Cardiovascular Cardiovascular: Denies chest pain or palpitations Respiratory/Chest Respiratory/Chest: Denies cough or dyspnea Gastrointestinal Gastrointestinal: Denies abdominal pain, nausea or vomiting Genitourinary Genitourinary ED: Denies difficulty urinating or dysuria Musculoskeletal Musculoskeletal: Denies back pain or extremity pain Integumentary Denies Abrasions or rash Neurologic Neurologic: Reports headache(s) and weakness Psychiatric Psychiatric: Denies anxiety or depression Allergic/Immunologic Allergic/Immunologic ED: Denies lip swelling or urticaria EXAM Physical Exam Const Vital Signs: 06/11/22 00:50 06/11/22 00:54 06/11/22 01:52 Temperature 97.5 F L Temperature Source Temporal Pulse Rate 66 62 Respiratory Rate 18 18 Respiratory Effort Normal Non-Labored Respiratory Depth Normal Respiratory Pattern Normal Blood Pressure 184/79 H 181/75 H Blood Pressure Mean 114 110 Pulse Ox 95 98 Oxygen Delivery Method Room Air Room Air Room Air 06/11/22 02:00 06/11/22 03:00 06/11/22 04:00 Temperature Temperature Source Pulse Rate 62 63 60 Respiratory Rate 20 H 20 H 20 H Respiratory Effort Respiratory Depth Respiratory Pattern Blood Pressure 182/76 H 174/114 H 171/75 H Blood Pressure Mean 111 134 107 Pulse Ox 98 98 96 Oxygen Delivery Method Room Air Room Air Room Air 06/11/22 04:40 Temperature Temperature Source Pulse Rate 64 Respiratory Rate 12 Respiratory Effort Respiratory Depth Respiratory Pattern Blood Pressure 167/71 H Blood Pressure Mean Pulse Ox 98 Oxygen Delivery Method Positive well nourished and well developed General Appearance ED: well developed HEENT Reports normocephalic; Denies head/scalp atraumatic HEENT Narrative: Posterior parietal scalp laceration. Small arterial pumper is noted. Nursing staff asked to apply pressure dressing over the area. Eyes PERRL and EOMs intact bilaterally Neck supple Neck Narrative: No C-spine tenderness. Chest Wall inspection of chest normal and palpation of chest normal Resp normal respiratory effort and clear to auscultation bilaterally Cardio regular rate and regular rhythm GI normal to inspection, nondistended, normoactive bowel sounds Palpation: soft Back/Spine no CVA tenderness Extremity normal to inspection Neuro oriented x3 Neuro Narrative: No focal neurologic deficits. Sensorium / Orientation: alert Psych mental status grossly normal Skin Skin Narrative: Scalp laceration as noted above. MDM MDM MDM Narrative Medical decision making narrative: Lab work obtained. Patient sent for CT scan of head and C-spine. Pressure dressing applied to the scalp wound. Lab Data Attestation: I reviewed the patient's lab results. Labs: Laboratory Results - last 24 hr 06/11/22 06/11/22 06/11/22 00:52 01:40 01:40 WBC 3.7 L RBC 2.50 L Hgb 7.8 L Hct 24.2 L MCV 96.8 MCH 31.2 MCHC 32.2 RDW Std Deviation 51.8 H RDW Coeff of Valentina 14.8 H Plt Count 111 L MPV 11.1 Immature Gran % (Auto) 0.500 Neut % (Auto) 69.4 Lymph % (Auto) 14.0 L Camas % (Auto) 10.4 H Eos % (Auto) 4.1 Baso % (Auto) 1.6 H Absolute Neuts (auto) 2.5 Absolute Lymphs (auto) 0.51 L Nucleated RBC % 0 Diff Path Review May foll Anisocytosis 1+ PT 16.8 H INR 1.4 APTT 34.0 Sodium Potassium Chloride Carbon Dioxide Anion Gap BUN Creatinine Estim Creat Clear Calc Est GFR (MDRD) Af Amer Est GFR (MDRD) Non-Af BUN/Creatinine Ratio Glucose Calcium POC Glucose 187 H 06/11/22 01:40 WBC RBC Hgb Hct MCV MCH MCHC RDW Std Deviation RDW Coeff of Valentina Plt Count MPV Immature Gran % (Auto) Neut % (Auto) Lymph % (Auto) Camas % (Auto) Eos % (Auto) Baso % (Auto) Absolute Neuts (auto) Absolute Lymphs (auto) Nucleated RBC % Diff Path Review Anisocytosis PT INR APTT Sodium 140 Potassium 4.4 Chloride 112 H Carbon Dioxide 23.0 Anion Gap 5 BUN 32 H Creatinine 1.80 H Estim Creat Clear Calc 37.77 Est GFR (MDRD) Af Amer 38 L Est GFR (MDRD) Non-Af 31 L BUN/Creatinine Ratio 17.8 Glucose 181 H Calcium 8.2 L POC Glucose Radiography Diagnostic Testing: Clinical Impression(s) from Imaging Studies Brain CT 06/11/22 01:09 IMPRESSION: undefined Cervical Spine CT 06/11/22 01:09 IMPRESSION: 1. No acute fracture or subluxation. 2. Multilevel degenerative changes. 3. Nonspecific reversal of the normal cervical lordosis. 4. Large right and moderate left pleural effusions. 5. Right apical groundglass opacities, may represent infectious/inflammatory changes. 6. 16 mm nodule posterior and inferior to the right thyroid lobe, may represent exophytic thyroid nodule versus parathyroid adenoma. Consider further characterized with nonemergent ultrasound thyroid. Electronically Signed: Himanshu Trujillo MD at 2:11 EDT , Brain CT CONCLUSION: No intracranial hemorrhage or depressed calvarial fracture. Treatment and Re-Evaluation Narrative: Repeat evaluation patient resting comfortably. Dressing is taken down from her scalp wound. 6 cc of 1% lidocaine with epinephrine are infused locally. Patient does have a pulsatile area of bleeding. This is tied off with 3 sutures of 4-0 Vicryl. Blood is cleaned from her hair and I do not appreciate any other lacerations. Gauze pad and head wrap are applied to keep the area clean and allow pressure to prevent hematoma development. Patient discharged with family. Discharge Plan Triage Chief Complaint: Head Injury ED Provider: Adrienne Valdivia Dx/Rx/DC Orders Instructions: ED Mechanical Fall, ED Laceration Scalp Stitches or Joanne Prescriptions: No Action magnesium oxide 400 MG tablet 400 mg PO BID Label Comments: PER PHARMACY NOT COVERED BY INSURANCE THROUGH [employer]. PHARMACY UNSURE IF SHE IS GETTING OTC Xifaxan 550 MG tablet 550 mg PO BID sucralfate [Carafate] 1 gram Tablet 1 g PO BID pantoprazole 40 mg Tablet,Delayed Release (Dr/Ec) 40 mg PO DAILY sertraline 50 mg Tablet 50 mg PO DAILY ursodiol 300 mg capsule 300 mg PO BID Label Comments: . carbamazepine 100 mg Tablet Extended Release 12 Hr 100 mg PO BID zinc 50 mg Tablet 50 mg PO DAILY Label Comments: PER PHARMACY NOT COVERED BY INSURANCE THROUGH [employer]. PHARMACY UNSURE IF SHE IS GETTING OTC carvedilol 3.125 mg tablet 6.25 mg PO BID torsemide 20 mg Tablet 10 mg PO DAILY lurasidone 40 mg Tablet 40 mg PO DAILY Tresiba FlexTouch U-100 100 unit/mL (3 mL) Insulin Pen 10 unit SUBCUT DAILY amlodipine 2.5 mg Tablet 2.5 mg PO DAILY ergocalciferol (vitamin D2) [Vitamin D2] 1,250 mcg (50,000 unit) capsule 1,250 unit PO MOTH levothyroxine 75 mcg tablet 75 mcg PO DAILY ondansetron 4 mg tablet,disintegrating 8 mg PO Q8H PRN (Reason: Nausea And Vomiting) insulin lispro [Humalog KwikPen Insulin] 100 unit/mL insulin pen 8 unit subcut TIDCM Label Comments: +SLIDING SCALE UP TO 40 UNITS DAILY. pregabalin 25 mg capsule 25 mg PO BID lactulose 20 gram/30 mL solution 40 g PO TID Primary Care Provider: Janay Canchola Referrals: Janay Canchola MD [Primary Care Provider] - 1 Week Disposition Disposition: Home, Self Care Discharge Date/Time: 06/11/22 06:00
[2022-06-11 01:15] LABS: Bedside Glucose 187 mg/dL (74-106)
[2022-06-11 01:50] LABS: Absolute Lymphocyte Count 0.51 X10^3/uL (0.83-4.51); Absolute Neutrophil Count 2.5 X10^3/uL (2.0-7.7); Basophil# 0.06 X10^3/uL; Basophil% 1.6 % (0-1); Eosinophil# 0.15 X10^3/uL; Eosinophils% 4.1 % (0-5); Hematocrit 24.2 % (37-47); Hemoglobin 7.8 g/dL (12.0-15.0); Lymphocyte # 0.51 X10^3/ul (0.83-4.51); Mean Corp Hgb Conc 32.2 g/dL (32-36); Mean Corpuscular Hgb 31.2 pg (27.0-32.0); Mean Corpuscular Volume 96.8 fL (81-99); Mean Platelet Vol. 11.1 fl (6.2-12.0); Monocyte# 0.38 X10^3/uL; Monocyte% 10.4 % (0-10); NRBC Flagged by Analyzer 0 % (0-5); Neutrophil # 2.53 X10^3/uL (2.7-7.7); Neutrophil % 69.4 % (47-70); POSITIVE DIFFERENTIAL YES; Platelet Count 111 K/mm3 (150-450); RBC Distribution Width CV 14.8 % (11.6-14.6); RBC Distribution Width SD 51.8 fl (35.1-43.9); White Blood Count 3.7 K/mm3 (4.4-11.0)
[2022-06-11 01:51] LABS: Differential Indicated SCAN CRITERIA MET
[2022-06-11 01:52] VITALS: BP 181/75; PULSE 62; RESP 18; O2SAT 98
[2022-06-11 02:00] VITALS: BP 182/76; PULSE 62; RESP 20; O2SAT 98
[2022-06-11 02:00] LABS: International Normalized Ratio 1.4; Prothrombin Time (Protime)PT. 16.8 SECONDS (11.7-14.9)
[2022-06-11 02:07] LABS: Anion Gap 5 (5-15); BUN 32 mg/dL (7-18); BUN/Creat Ratio 17.8 RATIO (10-20); Calcium,Total 8.2 mg/dL (8.5-10.1); Chloride 112 mmol/L (98-107); EST Glomerular Filtration Rate 31 mL/min (>60); Est Glom Filt Rate - Afr Amer 38 mL/min (>60); Estimated Creatinine Clearance 37.77 ml/min; Glucose 181 mg/dL (74-106); Potassium 4.4 mmol/L (3.5-5.1); Sodium Level 140 mmol/L (136-145)
[2022-06-11 02:17] LABS: Anisocytosis 1+
[2022-06-11 03:00] VITALS: BP 174/114; PULSE 63; RESP 20; O2SAT 98
[2022-06-11 04:00] VITALS: BP 171/75; PULSE 60; RESP 20; O2SAT 96
[2022-06-11 04:40] VITALS: BP 167/71; PULSE 64; RESP 12; O2SAT 98
--- NOTE | 2022-06-11 04:41 | NURSING ---
this RN attempted to contact Sj, Significant other, and states 'the person you are trying to call is unavailable' and unable to leave message. asked patient if there is anyone else to call and she states no.
[2022-06-11 13:26] LABS: Pathologist Review Reviewed
== END 2022-06-11 06:00 | disposition home or self-care (01) ==
PROVIDERS: Emergency Provider Emergency Medicine; PCP Internal Medicine; Visit Provider Emergency Medicine
DX: S01.01XA Laceration without foreign body of scalp, initial encounter (principal); E11.22 Type 2 diabetes mellitus with diabetic chronic kidney disease; E11.42 Type 2 diabetes mellitus with diabetic polyneuropathy; Z79.4 Long term (current) use of insulin; N18.32 Chronic kidney disease, stage 3b; I12.9 Hypertensive chronic kidney disease with stage 1 through stage 4 chronic kidney disease, or unspecified chronic kidney disease; F32.A Depression, unspecified; Z79.899 Other long term (current) drug therapy; W19.XXXA Unspecified fall, initial encounter
CPT/HCPCS: 99283; 70450; 72125; 80048; 82962; 85025; 85610; 85730; A4216

== ENCOUNTER 2022-06-14 14:34 | Inpatient (IN) | payer MEDICARE, MEDICAID, SELFPAY ==
[2022-06-14 14:39] VITALS: BP 126/64; PULSE 49; RESP 15; TEMP 35.8; O2SAT 97; BMI 29.1
--- NOTE | 2022-06-14 14:52 | EKG12_ITS ---
Test Reason : alt mental status Blood Pressure : / mmHG Vent. Rate : 050 BPM Atrial Rate : 050 BPM P-R Int : 190 ms QRS Dur : 118 ms QT Int : 548 ms P-R-T Axes : 012 -41 025 degrees QTc Int : 499 ms Sinus bradycardia Left axis deviation Incomplete left bundle branch block Minimal voltage criteria for LVH, may be normal variant ( Claudio product ) Prolonged QT Abnormal ECG When compared with ECG of 07-MAY-2022 15:34, T wave amplitude has decreased in Anterior leads Confirmed by DEDE ZAMBRANO, ROSA ([id number]), department editor NORA MENDES ([id number]) on 06/19/2022 10:20:30 AM Referred By: José Miguel Confirmed By:ROSA AGUAYO MD
--- NOTE | 2022-06-14 14:54 | EX.ED.DYSGE1 ---
HPI History of Present Illness Chief Complaint: General Illness Detail of Chief Complaint: Sluggishness and fatigue Informant: patient and spouse/S.O. Onset/Context/Timing Onset: Yesterday Context: Gradual Onset Timing: Continuous Quality: Unable to determine Location: Generalized Current Severity: Unable to determine Maximum Severity: Unable to determine Worsened by: Unknown Relieved by: Nothing Associated Symptoms Associated Symptoms: Nausea and vomiting yesterday Narrative Narrative: Patient is a 50-year-old woman with history of liver disease and hepatic encephalopathy who was seen earlier this week after closed head injury. Work-up at that time revealed anemia and no acute intracranial process. Patient brought to the emergency room because of sluggishness. states she has been short of breath since yesterday. History is very limited. Prior similar symptoms: No Recent Illness/Hospitalization: Yes [facility] Medical History Acute kidney injury superimposed on chronic kidney disease Acute on chronic renal insufficiency Anemia Anemia Autoimmune hepatitis Autoimmune hepatitis Bacteremia due to methicillin resistant Staphylococcus epidermidis Bipolar disorder CHI (closed head injury) Chronic pain Cirrhosis of liver Debility Depression Diabetes mellitus Diabetes mellitus, type 2 Encephalopathy acute Essential hypertension Reilly's thyroiditis Hepatic encephalopathy Hepatitis History of hypothyroidism Hypertension Kidney disease MRSA bacteremia Pancreatitis Pancytopenia Pancytopenia Pancytopenia Peripheral neuropathy Schizoaffective disorder Severe sepsis Splenomegaly Stage 3b chronic kidney disease (CKD) Weakness Home Medications magnesium oxide 400 mg PO BID supplement 03/14/17 [History Last Taken 03/22/22] rifaximin 550 mg tablet (Xifaxan) 550 mg PO BID IBS 11/04/17 [History Last Taken 03/22/22] pantoprazole 40 mg tablet,delayed release 40 mg PO DAILY GERD 03/20/21 [History Last Taken 03/22/22] sertraline 50 mg tablet 50 mg PO DAILY DEPRESSION 03/20/21 [History Last Taken 03/22/22] sucralfate 1 gram tablet (Carafate) 1 g PO BID STOMACH 03/20/21 [History Last Taken 03/22/22] ursodiol 300 mg capsule 300 mg PO BID LIVER 04/25/21 [History Last Taken 03/22/22] carbamazepine 100 mg tablet,extended release,12 hr 100 mg PO BID seizures 04/29/21 [History Last Taken 03/22/22] zinc 50 mg tablet 50 mg PO DAILY SUPPLEMENT 09/18/21 [History Last Taken 03/22/22] carvedilol 3.125 mg tablet 6.25 mg PO BID HEART 03/23/22 [History Last Taken 03/22/22] insulin degludec 100 unit/mL (3 mL) subcutaneous pen (Tresiba FlexTouch U-100 insulin) 10 unit subcut DAILY DM 04/16/22 [History Last Taken Unknown] lurasidone 40 mg tablet 40 mg PO DAILY MOOD 04/16/22 [History Last Taken Unknown] torsemide 20 mg tablet 10 mg PO DAILY diuretic 04/16/22 [History Last Taken Unknown] amlodipine 2.5 mg tablet 2.5 mg PO DAILY BP 05/14/22 [History Last Taken Unknown] ergocalciferol (vitamin D2) 1,250 mcg (50,000 unit) capsule (Vitamin D2) 1,250 unit PO MOTH SUPPLMENT 05/14/22 [History Last Taken Unknown] insulin lispro 100 unit/mL subcutaneous pen (Humalog KwikPen (U-100) Insulin) 8 unit subcut TIDCM diabetes 05/14/22 [History Last Taken Unknown] levothyroxine 75 mcg tablet 75 mcg PO DAILY THYROID 05/14/22 [History Last Taken Unknown] ondansetron 4 mg disintegrating tablet 8 mg PO Q8H PRN Nausea And Vomiting 05/14/22 [History Last Taken Unknown] pregabalin 25 mg capsule 25 mg PO BID PAIN 05/14/22 [History Last Taken Unknown] lactulose 20 gram/30 mL oral solution 40 g PO TID liver failure 06/11/22 [History Last Taken Unknown] Allergy/AdvReac Type Severity Reaction Status Date / Time adhesive Allergy Rash Verified 05/14/22 13:50 escitalopram oxalate Allergy blindness Verified 05/14/22 13:50 [From Lexapro] Fish Containing Products Allergy Other Verified 05/14/22 13:50 gabapentin [From Neurontin] Allergy Alan Verified 05/14/22 13:50 Jez's Syndrome lamotrigine [From Lamictal] Allergy Blindness Verified 05/14/22 13:50 topiramate [From Topamax] Allergy Other Verified 05/14/22 13:50 sour cream AdvReac Severe Anaphylaxis Uncoded 05/14/22 14:51 Preservatives AdvReac Intermediate passed Uncoded 05/14/22 14:50 out, lungs deflated Family History Father CVA (cerebral vascular accident) Myocardial infarction Heart disease CAD (coronary artery disease) Grandmother CHF (congestive heart failure) Sister Hypertension Mother Heart disease Surgical History H/O: hysterectomy History of abdominal paracentesis (10/2019) History of appendectomy History of cholecystectomy S/P TIPS (transjugular intrahepatic portosystemic shunt) Social History household members: significant other housing: house Smoking Status: Never smoker alcohol intake: never details: Unknown substance use type: does not use ROS ROS ED Review of Systems ROS Unobtainable: due to mental status Respiratory/Chest Respiratory/Chest: Reports dyspnea Gastrointestinal Gastrointestinal: Reports melena and nausea Hematologic/Lymphatic Hematologic/Lymphatic: Reports easy bruising EXAM Physical Exam Const Vital Signs: 06/14/22 14:39 06/14/22 15:00 Temperature 96.4 F L Temperature Source Temporal Pulse Rate 49 L Respiratory Rate 15 Respiratory Pattern Normal Blood Pressure 126/64 H Blood Pressure Mean 84 Pulse Ox 97 Oxygen Delivery Method Nasal Cannula Positive well nourished, well developed and unkempt General Appearance ED: unkempt, well developed, NAD and pallor; Negative for cyanotic or diaphoretic HEENT Reports TM's clear and dry mucous membranes HEENT Narrative: Nares patent. Mucosa is dry. Uvula midline. tenderness Tympanic Membrane ED: Yes TM's clear Mouth ED: Yes dry mucous membranes Mouth: dry mucous membranes Eyes PERRL and EOMs intact bilaterally General Eye ED: Yes pale conjunctiva; Negative for scleral icterus Neck no lymphadenopathy, supple and no JVD Chest Wall inspection of chest normal and palpation of chest normal Resp No normal respiratory effort and No clear to auscultation bilaterally Auscultation: rales bilateral base Cardio regular rhythm, S1 normal heart sound and S2 normal heart sound Rate: bradycardia GI normal to inspection, nondistended, normoactive bowel sounds, non-tender and non-distended; Negative for hepatosplenomegaly Palpation: soft Back/Spine no CVA tenderness Thoracic Spine / Upper Back: Negative for thoracic spinal tenderness Lumbar Spine / Lower Back: Negative for lumbar spinal tenderness Extremity Extremity Narrative: There is slight edema of the lower extremity. Extremities are pale. Patient has bruises noted. 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 Neuro No oriented x3, CN's II-XII intact bilaterally and no sensory deficits noted Sensorium / Orientation: orientation impaired; Negative for alert Psych Psych Narrative: Depressed affect. Appearance: unkempt Skin No no wounds and No skin turgor normal General Skin Exam: pallor Wounds: wounds noted MDM MDM MDM Narrative Medical decision making narrative: With history of hepatic disease and prior history of hepatic encephalopathy suspect patient has hepatic encephalopathy. Since she is tachypneic and complains of shortness of breath chest x-ray was obtained to rule out pneumonia. Cath urine to rule out UTI. Reviewing prior records indicates she is diabetic we will obtain BGT. Clinically she is pale. She has been typed and screened. This may be contributing to her dyspnea. Since patient does have an infiltrate right lower lobe and is complaining of shortness of breath we will treat for pneumonia with Rocephin and azithromycin. Cultures were obtained since she is neutropenic. COVID test was also ordered. Because her ammonia is elevated and may also be contributing to her altered mental status lactulose was ordered. Will contact hospitalist for admission. Lab Data Attestation: I reviewed the patient's lab results. Lab results narrative: Patient has pancytopenia. White count is much lower than normal. Hemoglobin is 7.2 with hematocrit of 21.3. MCV is 93 which is normal. Different reveals slight shift with no bandemia. Comprehensive metabolic panel is remarkable for a BUN/creatinine of 27 and 1.84. GFR is 30. Glucose is 253. Lactate is normal. INR is normal. It is slightly elevated. Labs: Laboratory Results - last 24 hr 06/14/22 06/14/22 06/14/22 15:10 15:10 15:10 WBC 2.9 L RBC 2.29 L Hgb 7.2 L Hct 21.3 L MCV 93.0 MCH 31.4 MCHC 33.8 RDW Std Deviation 48.9 H RDW Coeff of Valentina 14.6 Plt Count 69 L MPV 10.7 Immature Gran % (Auto) 0.000 Neut % (Auto) 71.5 H Lymph % (Auto) 14.3 L [place] % (Auto) 10.8 H Eos % (Auto) 2.4 Baso % (Auto) 1.0 Absolute Neuts (auto) 2.1 Absolute Lymphs (auto) 0.41 L Nucleated RBC % 0 Differential Comment SCANNED PT Cancelled INR Cancelled Sodium 140 Potassium 4.6 Chloride 110 H Carbon Dioxide 25.0 Anion Gap 5 BUN 27 H Creatinine 1.84 H Estim Creat Clear Calc 36.95 Est GFR (MDRD) Af Amer 37 L Est GFR (MDRD) Non-Af 30 L BUN/Creatinine Ratio 14.7 Glucose 253 H Lactic Acid Calcium 8.0 L Total Bilirubin 1.20 H AST 60 H ALT 27 Alkaline Phosphatase 159 H Ammonia Total Protein 6.6 Albumin 2.6 L Globulin 4.0 Albumin/Globulin Ratio 0.6 L Urine Color Urine Clarity Urine pH Ur Specific [place] Urine Protein Urine Glucose (UA) Urine Ketones Urine Occult Blood Urine Nitrite Urine Bilirubin Urine Urobilinogen Ur Leukocyte Esterase 06/14/22 06/14/22 06/14/22 15:10 15:10 15:30 WBC RBC Hgb Hct MCV MCH MCHC RDW Std Deviation RDW Coeff of Valentina Plt Count MPV Immature Gran % (Auto) Neut % (Auto) Lymph % (Auto) [place] % (Auto) Eos % (Auto) Baso % (Auto) Absolute Neuts (auto) Absolute Lymphs (auto) Nucleated RBC % Differential Comment PT 15.8 H INR 1.3 Sodium Potassium Chloride Carbon Dioxide Anion Gap BUN Creatinine Estim Creat Clear Calc Est GFR (MDRD) Af Amer Est GFR (MDRD) Non-Af BUN/Creatinine Ratio Glucose Lactic Acid 1.7 Calcium Total Bilirubin AST ALT Alkaline Phosphatase Ammonia 68.0 H Total Protein Albumin Globulin Albumin/Globulin Ratio Urine Color Urine Clarity Urine pH Ur Specific [place] Urine Protein Urine Glucose (UA) Urine Ketones Urine Occult Blood Urine Nitrite Urine Bilirubin Urine Urobilinogen Ur Leukocyte Esterase 06/14/22 15:45 WBC RBC Hgb Hct MCV MCH MCHC RDW Std Deviation RDW Coeff of Valentina Plt Count MPV Immature Gran % (Auto) Neut % (Auto) Lymph % (Auto) [place] % (Auto) Eos % (Auto) Baso % (Auto) Absolute Neuts (auto) Absolute Lymphs (auto) Nucleated RBC % Differential Comment PT INR Sodium Potassium Chloride Carbon Dioxide Anion Gap BUN Creatinine Estim Creat Clear Calc Est GFR (MDRD) Af Amer Est GFR (MDRD) Non-Af BUN/Creatinine Ratio Glucose Lactic Acid Calcium Total Bilirubin AST ALT Alkaline Phosphatase Ammonia Total Protein Albumin Globulin Albumin/Globulin Ratio Urine Color Yellow Urine Clarity Sl Cloudy Urine pH 5.0 Ur Specific [place] 1.020 Urine Protein 30 H Urine Glucose (UA) Normal Urine Ketones Negative Urine Occult Blood 25 H Urine Nitrite Positive H Urine Bilirubin Negative Urine Urobilinogen Normal Ur Leukocyte Esterase 100 H Radiography Chest X-Ray - ED: 1 View (Portable chest x-ray independently reviewed and interpreted by me as positive for right lower lobe infiltrate possible right middle lobe infiltrate. Osseous structures unremarkable. Perihilar region is unremarkable.) EKG Initial EKG: Attestation: I personally reviewed and interpreted this EKG as follows: Interpretation: Sinus Bradycardia (Ventricular rate is 50. MA interval 290 ms. Cures duration is prolonged at 118 ms and is suggestive of incomplete left bundle branch block. QT is prolonged at 548 ms. [place] to the left.) Discharge Plan Triage Chief Complaint: General Illness ED Provider: Artie Valdez Dx/Rx/DC Orders Clinical Impression: Right lower lobe pneumonia, Pancytopenia, Chronic renal insufficiency, stage III (moderate), Acute hepatic encephalopathy, Acute encephalopathy Prescriptions: No Action magnesium oxide 400 MG tablet 400 mg PO BID Label Comments: PER PHARMACY NOT COVERED BY INSURANCE THROUGH [employer] App. PHARMACY UNSURE IF SHE IS GETTING OTC Xifaxan 550 MG tablet 550 mg PO BID sucralfate [Carafate] 1 gram Tablet 1 g PO BID pantoprazole 40 mg Tablet,Delayed Release (Dr/Ec) 40 mg PO DAILY sertraline 50 mg Tablet 50 mg PO DAILY ursodiol 300 mg capsule 300 mg PO BID Label Comments: . carbamazepine 100 mg Tablet Extended Release 12 Hr 100 mg PO BID zinc 50 mg Tablet 50 mg PO DAILY Label Comments: PER PHARMACY NOT COVERED BY INSURANCE THROUGH [employer] App. PHARMACY UNSURE IF SHE IS GETTING OTC carvedilol 3.125 mg tablet 6.25 mg PO BID torsemide 20 mg Tablet 10 mg PO DAILY lurasidone 40 mg Tablet 40 mg PO DAILY Tresiba FlexTouch U-100 100 unit/mL (3 mL) Insulin Pen 10 unit SUBCUT DAILY amlodipine 2.5 mg Tablet 2.5 mg PO DAILY ergocalciferol (vitamin D2) [Vitamin D2] 1,250 mcg (50,000 unit) capsule 1,250 unit PO MOTH levothyroxine 75 mcg tablet 75 mcg PO DAILY ondansetron 4 mg tablet,disintegrating 8 mg PO Q8H PRN (Reason: Nausea And Vomiting) insulin lispro [Humalog KwikPen Insulin] 100 unit/mL insulin pen 8 unit subcut TIDCM Label Comments: +SLIDING SCALE UP TO 40 UNITS DAILY. pregabalin 25 mg capsule 25 mg PO BID lactulose 20 gram/30 mL solution 40 g PO TID Primary Care Provider: Janay Canchola Referrals: Janay Canchola MD [Primary Care Provider] - Disposition Disposition: Acute Care Hospital [facility]
[2022-06-14 15:24] LABS: Absolute Lymphocyte Count 0.41 X10^3/uL (0.83-4.51); Absolute Neutrophil Count 2.1 X10^3/uL (2.0-7.7); Basophil# 0.03 X10^3/uL; Eosinophil# 0.07 X10^3/uL; Eosinophils% 2.4 % (0-5); Hematocrit 21.3 % (37-47); Hemoglobin 7.2 g/dL (12.0-15.0); Lymphocyte # 0.41 X10^3/ul (0.83-4.51); Lymphocyte % 14.3 % (19-41); Mean Corp Hgb Conc 33.8 g/dL (32-36); Mean Corpuscular Hgb 31.4 pg (27.0-32.0); Mean Platelet Vol. 10.7 fl (6.2-12.0); Monocyte# 0.31 X10^3/uL; Monocyte% 10.8 % (0-10); NRBC Flagged by Analyzer 0 % (0-5); Neutrophil # 2.05 X10^3/uL (2.7-7.7); Neutrophil % 71.5 % (47-70); POSITIVE COUNT YES; POSITIVE DIFFERENTIAL YES; Platelet Count 69 K/mm3 (150-450); RBC Distribution Width CV 14.6 % (11.6-14.6); RBC Distribution Width SD 48.9 fl (35.1-43.9); Red Blood Count 2.29 M/mm3 (4.2-5.4); White Blood Count 2.9 K/mm3 (4.4-11.0)
[2022-06-14 15:41] LABS: ALB/GLOB Ratio 0.6 RATIO (0.9-2.4); AST(SGOT) 60 U/L (15-37); Alanine Aminotransfer ALT/SGPT 27 U/L (13-56); Albumin, Serum 2.6 g/dL (3.2-5.0); Alkaline Phosphatase 159 U/L (45-117); Anion Gap 5 (5-15); BUN 27 mg/dL (7-18); BUN/Creat Ratio 14.7 RATIO (10-20); Chloride 110 mmol/L (98-107); Creatinine, Serum 1.84 mg/dL (0.55-1.02); EST Glomerular Filtration Rate 30 mL/min (>60); Est Glom Filt Rate - Afr Amer 37 mL/min (>60); Estimated Creatinine Clearance 36.95 ml/min; Glucose 253 mg/dL (74-106); Potassium 4.6 mmol/L (3.5-5.1); Protein, Total 6.6 g/dL (6.4-8.2); Sodium Level 140 mmol/L (136-145)
[2022-06-14 15:46] LABS: Lactic Acid 1.7 mmol/L (0.4-1.9)
[2022-06-14 15:48] LABS: International Normalized Ratio 1.3; Prothrombin Time (Protime)PT. 15.8 SECONDS (11.7-14.9)
[2022-06-14 15:56] LABS: Mucous, Urine 0 SEEN /hpf (<or=2+); Red Blood Cells-Urine 0 SEEN /hpf (0-5)
[2022-06-14 15:58] LABS: Differential Comment SCANNED
[2022-06-14 15:59] LABS: Differential Indicated SCAN CRITERIA MET
--- NOTE | 2022-06-14 16:07 | RAD_ITS ---
STUDY: PORTABLE AP UPRIGHT CHEST X-RAY OF 1603 HOURS ON 06/14/2022 REASON FOR EXAM: 51-year-old female with dyspnea. TECHNIQUE: A single view portable AP upright chest x-ray was performed per protocol. COMPARISON: 04/17/2022. FINDINGS: Normal osseous structures. Moderate cardiomegaly without heart failure. Resonance of the moderate right lower lobe infiltrative process with mild to moderate right pleural effusion--compatible with a right lower lobe pneumonia. Mild atelectatic changes in the right upper lobe. No free subdiaphragmatic air. Residue of a previous TIPS procedure. RAD/Chest 1 View (Portable) IMPRESSION: 1. Moderate right lower lobe pneumonia with a mild to moderate right pleural effusion. 2. Moderate cardiomegaly without heart failure. 3. Mild atelectatic changes in the right upper lobe. 4. Residue of a previous TIPS procedure. No free subdiaphragmatic air. Electronically Signed: Henrry Bartlett MD at 16:28 EDT ,
[2022-06-14 16:20] LABS: Glucose, Dipstick Normal (Normal); Ketone-Dipstick Negative (Negative); Leukocyte Esterase-Dipstick 100 /ul (Negative); Nitrite-Dipstick Positive (Negative); Occult Blood-Urine 25 /ul (Negative); Protein-Dipstick 30 mg/dl (Negative); Urine Bilirubin Dipstick Negative (Negative); Urine Urobilinogen Normal (Normal)
[2022-06-14 16:21] LABS: Color, Urine Yellow (Yellow); Urine Clarity Sl Cloudy (Clear)
[2022-06-14 16:30] LABS: Hyaline Cast 10-25 SEEN /lpf (0-5)
[2022-06-14 16:32] LABS: Squamous Epithelial Cells - UA 0-5 SEEN /hpf (5-10); White Blood Cells 5-10 SEEN /hpf (0-5)
[2022-06-14 16:33] LABS: Bacteria 2+ /hpf (None Seen)
--- NOTE | 2022-06-14 16:55 | HP.PCM.HOS_ITS ---
Documented by User: Lelo Zarate NP, [employer]CH[employer]-C 06/14/22 17:21 HPI - General General Date of Admission: 06/14/22 Date of Service: 06/14/22 Chief Complaint: Drowsiness, shortness of breath. HPI Narrative ANA GARCÍA, is a 51 F who presents to the emergency room due to shortness of breath and feeling groggy. Patient states this morning she felt sweaty and drowsy. She thought her blood sugar was low and when she checked it it was 60. She states she ate and her blood sugar improved however she continued to feel groggy and diaphoretic. She reports difficulty walking due to weakness. She denies urinary symptoms. Reports intermittent nonproductive cough. Patient states her shortness of breath began this morning. She denies exposure to sick contacts. Denies other URI symptoms. She has a past medical history of autoimmune hepatitis status post TIPS, hypertension, type 2 diabetes mellitus, hypothyroidism, depression. [facility] Medical History Acute kidney injury superimposed on chronic kidney disease Acute on chronic renal insufficiency Anemia Anemia Autoimmune hepatitis Autoimmune hepatitis Bacteremia due to methicillin resistant Staphylococcus epidermidis Bipolar disorder CHI (closed head injury) Chronic pain Cirrhosis of liver Debility Depression Diabetes mellitus Diabetes mellitus, type 2 Encephalopathy acute Essential hypertension Reilly's thyroiditis Hepatic encephalopathy Hepatitis History of hypothyroidism Hypertension Kidney disease MRSA bacteremia Pancreatitis Pancytopenia Pancytopenia Pancytopenia Peripheral neuropathy Schizoaffective disorder Severe sepsis Splenomegaly Stage 3b chronic kidney disease (CKD) Weakness Home Medications magnesium oxide 400 mg PO BID supplement 03/14/17 [History Last Taken 03/22/22] rifaximin 550 mg tablet (Xifaxan) 550 mg PO BID IBS 11/04/17 [History Last Taken 03/22/22] pantoprazole 40 mg tablet,delayed release 40 mg PO DAILY GERD 03/20/21 [History Last Taken 03/22/22] sertraline 50 mg tablet 50 mg PO DAILY DEPRESSION 03/20/21 [History Last Taken 03/22/22] sucralfate 1 gram tablet (Carafate) 1 g PO BID STOMACH 03/20/21 [History Last Taken 03/22/22] ursodiol 300 mg capsule 300 mg PO BID LIVER 04/25/21 [History Last Taken 03/22/22] carbamazepine 100 mg tablet,extended release,12 hr 100 mg PO BID seizures 04/29/21 [History Last Taken 03/22/22] zinc 50 mg tablet 50 mg PO DAILY SUPPLEMENT 09/18/21 [History Last Taken 03/22/22] carvedilol 3.125 mg tablet 6.25 mg PO BID HEART 03/23/22 [History Last Taken 03/22/22] insulin degludec 100 unit/mL (3 mL) subcutaneous pen (Tresiba FlexTouch U-100 insulin) 10 unit subcut DAILY DM 04/16/22 [History Last Taken Unknown] lurasidone 40 mg tablet 40 mg PO DAILY MOOD 04/16/22 [History Last Taken Unknown] torsemide 20 mg tablet 10 mg PO DAILY diuretic 04/16/22 [History Last Taken Unknown] amlodipine 2.5 mg tablet 2.5 mg PO DAILY BP 05/14/22 [History Last Taken Unknown] ergocalciferol (vitamin D2) 1,250 mcg (50,000 unit) capsule (Vitamin D2) 1,250 unit PO MOTH SUPPLMENT 05/14/22 [History Last Taken Unknown] insulin lispro 100 unit/mL subcutaneous pen (Humalog KwikPen (U-100) Insulin) 8 unit subcut TIDCM diabetes 05/14/22 [History Last Taken Unknown] levothyroxine 75 mcg tablet 75 mcg PO DAILY THYROID 05/14/22 [History Last Taken Unknown] ondansetron 4 mg disintegrating tablet 8 mg PO Q8H PRN Nausea And Vomiting 05/14/22 [History Last Taken Unknown] pregabalin 25 mg capsule 25 mg PO BID PAIN 05/14/22 [History Last Taken Unknown] lactulose 20 gram/30 mL oral solution 40 g PO TID liver failure 06/11/22 [History Last Taken Unknown] Allergy/AdvReac Type Severity Reaction Status Date / Time adhesive Allergy Rash Verified 05/14/22 13:50 escitalopram oxalate Allergy blindness Verified 05/14/22 13:50 [From Lexapro] Fish Containing Products Allergy Other Verified 05/14/22 13:50 gabapentin [From Neurontin] Allergy Alan Verified 05/14/22 13:50 Jez's Syndrome lamotrigine [From Lamictal] Allergy Blindness Verified 05/14/22 13:50 topiramate [From Topamax] Allergy Other Verified 05/14/22 13:50 sour cream AdvReac Severe Anaphylaxis Uncoded 05/14/22 14:51 Preservatives AdvReac Intermediate passed Uncoded 05/14/22 14:50 out, lungs deflated Family History (Reviewed 06/14/22 @ 17:00 by Lelo Zarate [employer]CHITECT, [employer]CH[employer]-C) Father CVA (cerebral vascular accident) Myocardial infarction Heart disease CAD (coronary artery disease) Grandmother CHF (congestive heart failure) Sister Hypertension Mother Heart disease Surgical History H/O: hysterectomy History of abdominal paracentesis (10/2019) History of appendectomy History of cholecystectomy S/P TIPS (transjugular intrahepatic portosystemic shunt) Social History household members: significant other housing: house Smoking Status: Never smoker alcohol intake: never details: Unknown substance use type: does not use ROS Constitutional Constitutional: Reports chills, fatigue, fever(s) and weakness; Denies change in weight Cardiovascular Cardiovascular: Denies chest pain, edema, lightheadedness, palpitations or syncope Respiratory/Chest Respiratory/Chest: Reports cough and dyspnea Gastrointestinal Gastrointestinal: Denies abdominal pain, constipation, diarrhea, nausea or vomiting Genitourinary Genitourinary: Denies burning urination, difficulty urinating, dysuria, hematuria, urinary frequency, urinary incontinence or urinary urgency Musculoskeletal Musculoskeletal: Denies back pain, joint pain or muscle weakness Integumentary Integumentary: Denies erythema, lesions, rash or wounds Neurologic Neurologic: Reports confusion; Denies abnormal speech, dizziness, focal weakness, numbness, paresthesias, seizure-like activity or syncope Psychiatric Psychiatric: Reports anxiety and depression Hematologic/Lymphatic Hematologic/Lymphatic: Denies anemia, easy bleeding or easy bruising Allergic/Immunologic Allergic/Immunologic: Denies hives or asthma Vital Signs Vital Signs Vital Signs: 06/14/22 14:39 06/14/22 15:00 Temperature 96.4 F L Temperature Source Temporal Pulse Rate 49 L Respiratory Rate 15 Respiratory Pattern Normal Blood Pressure 126/64 H Blood Pressure Mean 84 Pulse Ox 97 Oxygen Delivery Method Nasal Cannula Weight Weight: 197 lb 5.019 oz Body Mass Index (BMI) 29.1 Physical Exam Const alert and oriented x3 Constitutional Narrative: Patient appears drowsy however alert and oriented and answering questions appropriately. HEENT normocephalic Mouth: dry mucous membranes Eyes PERRL, EOMs intact bilaterally and conjunctivae normal Neck no lymphadenopathy Resp clear to auscultation bilaterally Auscultation: diminished lung sounds Cardio regular rate, regular rhythm and no murmurs Peripheral Pulses: pulses 2+ throughout GI normal to inspection, nondistended, normoactive bowel sounds, non-tender and non-distended Extremity normal to inspection Skin no rashes or lesions noted Lesions: no lesions Rashes: no rashes Trauma: no lacerations or abrasions Neuro CN's II-XII intact bilaterally, no focal motor deficits, no sensory deficits noted and deep tendon reflexes 2+ bilaterally Psych mental status grossly normal and affect normal Results Lab / Micro Data Result Diagrams: 06/14/22 15:10 06/14/22 15:10 Labs: Laboratory Results - last 24 hr 06/14/22 15:10: WBC 2.9 L, RBC 2.29 L, Hgb 7.2 L, Hct 21.3 L, MCV 93.0, MCH 31.4, MCHC 33.8, RDW Std Deviation 48.9 H, RDW Coeff of Valentina 14.6, Plt Count 69 L , MPV 10.7, Immature Gran % (Auto) 0.000, Neut % (Auto) 71.5 H, Lymph % (Auto) 14.3 L, [place] % (Auto) 10.8 H, Eos % (Auto) 2.4, Baso % (Auto) 1.0, Absolute Neuts (auto) 2.1, Absolute Lymphs (auto) 0.41 L, Nucleated RBC % 0, Differential Comment SCANNED 06/14/22 15:10: PT Cancelled, INR Cancelled 06/14/22 15:10: Sodium 140, Potassium 4.6, Chloride 110 H, Carbon Dioxide 25.0, Anion Gap 5, BUN 27 H, Creatinine 1.84 H, Estim Creat Clear Calc 36.95, Est GFR (MDRD) Af Amer 37 L, Est GFR (MDRD) Non-Af 30 L, BUN/Creatinine Ratio 14.7, Glucose 253 H, Calcium 8.0 L, Total Bilirubin 1.20 H, AST 60 H, ALT 27, Alkaline Phosphatase 159 H, Total Protein 6.6, Albumin 2.6 L, Globulin 4.0, Albumin/Globulin Ratio 0.6 L 06/14/22 15:10: Ammonia 68.0 H 06/14/22 15:10: Lactic Acid 1.7 06/14/22 15:10: Blood Type O POSITIVE, Antibody Screen NEGATIVE 06/14/22 15:30: PT 15.8 H, INR 1.3 06/14/22 15:45: Urine Color Yellow, Urine Clarity Sl Cloudy, Urine pH 5.0, Ur Specific [place] 1.020, Urine Protein 30 H, Urine Glucose (UA) Normal, Urine Ketones Negative, Urine Occult Blood 25 H, Urine Nitrite Positive H, Urine Bilirubin Negative, Urine Urobilinogen Normal, Ur Leukocyte Esterase 100 H, Urine RBC 0 SEEN, Urine WBC 5-10 SEEN, Ur Squamous Epith Cells 0-5 SEEN, Urine Bacteria 2+, Hyaline Casts 10-25 SEEN, Urine Mucus 0 SEEN Radiology Impression Chest X-Ray 06/14/22 16:07 IMPRESSION: 1. Moderate right lower lobe pneumonia with a mild to moderate right pleural effusion. 2. Moderate cardiomegaly without heart failure. 3. Mild atelectatic changes in the right upper lobe. 4. Residue of a previous TIPS procedure. No free subdiaphragmatic air. Electronically Signed: Henrry Bartlett MD at 16:28 EDT , Assessment & Plan Assessment/Plan (1) Right lower lobe pneumonia: (2) Acute encephalopathy: PLAN: Plan 1. Acute encephalopathy, multifactorial-toxic/metabolic encephalopathy secondary to cirrhosis with elevated ammonia and infectious related to underlying UTI/pneumonia. Treat underlying processes. 2. 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 Continue lactulose, rifaximin. 3. Right lower lobe pneumonia-IV azithromycin and IV Rocephin. Albuterol and DuoNeb aerosols. Sputum and blood cultures ordered. 4. Acute UTI-IV Rocephin, culture pending. 5. Chronic anemia/pancytopenia-related to underlying liver disease. Trend CBC. Transfuse for hemoglobin less than 7. 6. Type 2 diabetes [id number] with sliding scale insulin. 7. Hypertension- stable, continue current regimen. 8. Hypothyroidism-continue Synthroid regimen. 9. Chronic kidney disease stage IIIb-at baseline. 10. Severe chronic malnutrition-as evidenced by poor oral intake, weight loss. Dietitian consult. DVT prophylaxis- SCDs This patient was seen by ESTELLA GuzmanC under the supervision of Dr. Monson. Time spent examining patient, reviewing data and subsequent management of care: 26 minutes Documented by User: Dr. Albino Monson MD 06/14/22 17:28 HPI - General General Date of Admission: 06/14/22 [facility] Medical History Acute kidney injury superimposed on chronic kidney disease Acute on chronic renal insufficiency Anemia Anemia Autoimmune hepatitis Autoimmune hepatitis Bacteremia due to methicillin resistant Staphylococcus epidermidis Bipolar disorder CHI (closed head injury) Chronic pain Cirrhosis of liver Debility Depression Diabetes mellitus Diabetes mellitus, type 2 Encephalopathy acute Essential hypertension Reilly's thyroiditis Hepatic encephalopathy Hepatitis History of hypothyroidism Hypertension Kidney disease MRSA bacteremia Pancreatitis Pancytopenia Pancytopenia Pancytopenia Peripheral neuropathy Schizoaffective disorder Severe sepsis Splenomegaly Stage 3b chronic kidney disease (CKD) Weakness Home Medications magnesium oxide 400 mg PO BID supplement 03/14/17 [History Last Taken 03/22/22] rifaximin 550 mg tablet (Xifaxan) 550 mg PO BID IBS 11/04/17 [History Last Taken 03/22/22] pantoprazole 40 mg tablet,delayed release 40 mg PO DAILY GERD 03/20/21 [History Last Taken 03/22/22] sertraline 50 mg tablet 50 mg PO DAILY DEPRESSION 03/20/21 [History Last Taken 03/22/22] sucralfate 1 gram tablet (Carafate) 1 g PO BID STOMACH 03/20/21 [History Last Taken 03/22/22] ursodiol 300 mg capsule 300 mg PO BID LIVER 04/25/21 [History Last Taken 03/22/22] carbamazepine 100 mg tablet,extended release,12 hr 100 mg PO BID seizures 04/29/21 [History Last Taken 03/22/22] zinc 50 mg tablet 50 mg PO DAILY SUPPLEMENT 09/18/21 [History Last Taken 03/22/22] carvedilol 3.125 mg tablet 6.25 mg PO BID HEART 03/23/22 [History Last Taken 03/22/22] insulin degludec 100 unit/mL (3 mL) subcutaneous pen (Tresiba FlexTouch U-100 insulin) 10 unit subcut DAILY DM 04/16/22 [History Last Taken Unknown] lurasidone 40 mg tablet 40 mg PO DAILY MOOD 04/16/22 [History Last Taken Unknown] torsemide 20 mg tablet 10 mg PO DAILY diuretic 04/16/22 [History Last Taken Unknown] amlodipine 2.5 mg tablet 2.5 mg PO DAILY BP 05/14/22 [History Last Taken Unknown] ergocalciferol (vitamin D2) 1,250 mcg (50,000 unit) capsule (Vitamin D2) 1,250 unit PO MOTH SUPPLMENT 05/14/22 [History Last Taken Unknown] insulin lispro 100 unit/mL subcutaneous pen (Humalog KwikPen (U-100) Insulin) 8 unit subcut TIDCM diabetes 05/14/22 [History Last Taken Unknown] levothyroxine 75 mcg tablet 75 mcg PO DAILY THYROID 05/14/22 [History Last Taken Unknown] ondansetron 4 mg disintegrating tablet 8 mg PO Q8H PRN Nausea And Vomiting 05/14/22 [History Last Taken Unknown] pregabalin 25 mg capsule 25 mg PO BID PAIN 05/14/22 [History Last Taken Unknown] lactulose 20 gram/30 mL oral solution 40 g PO TID liver failure 06/11/22 [History Last Taken Unknown] Allergy/AdvReac Type Severity Reaction Status Date / Time adhesive Allergy Rash Verified 05/14/22 13:50 escitalopram oxalate Allergy blindness Verified 05/14/22 13:50 [From Lexapro] Fish Containing Products Allergy Other Verified 05/14/22 13:50 gabapentin [From Neurontin] Allergy Alan Verified 05/14/22 13:50 Jez's Syndrome lamotrigine [From Lamictal] Allergy Blindness Verified 05/14/22 13:50 topiramate [From Topamax] Allergy Other Verified 05/14/22 13:50 sour cream AdvReac Severe Anaphylaxis Uncoded 05/14/22 14:51 Preservatives AdvReac Intermediate passed Uncoded 05/14/22 14:50 out, lungs deflated Family History Father CVA (cerebral vascular accident) Myocardial infarction Heart disease CAD (coronary artery disease) Grandmother CHF (congestive heart failure) Sister Hypertension Mother Heart disease Surgical History H/O: hysterectomy History of abdominal paracentesis (10/2019) History of appendectomy History of cholecystectomy S/P TIPS (transjugular intrahepatic portosystemic shunt) Social History household members: significant other housing: house Smoking Status: Never smoker alcohol intake: never details: Unknown substance use type: does not use Results Lab / Micro Data Result Diagrams: 06/14/22 15:10 06/14/22 15:10 Assessment & Plan Assessment/Plan (1) Right lower lobe pneumonia: (2) Acute encephalopathy: Charges/Coding Addendum Addendum: Addendum: Dr. Monson I personally examined the patient and reviewed the chart. I agree with the above. 51-year-old female with an extensive liver history status post TIPS and significant gastropathy and varices presents to the hospital with altered mental status. She does have some anemia which appears to be chronic at this time. Her hemoglobin today 7.2. She also has an elevated ammonia but that is only the 68, she was recently over 200 at the end of April. She was found to have a possible pneumonia as well as a UTI and so she likely does have a component of hepatic encephalopathy as well as metabolic encephalopathy from her infection. We will continue her on all of her home medications as her lactic acid is normal and will place her on IV antibiotics, Rocephin and azithromycin which should hopefully treat both her pneumonia and her UTI. Cultures are pending. Clinical time spent in all aspects of patient care: 45 minutes Visit Charges Inpatient E&M: 15087 Init Hosp L3
[2022-06-14] MEDS: Lactulose 20 GM/30 ML UDC PO (17:02)
[2022-06-14 17:05] VITALS: BMI 29.0
[2022-06-14 17:24] VITALS: PULSE 54
[2022-06-14 17:36] VITALS: BP 164/74; PULSE 53; RESP 16; TEMP 37.1; O2SAT 99
[2022-06-14 17:50] LABS: Bedside Glucose 222 mg/dL (74-106)
[2022-06-14] MEDS: Insulin Lispro 100 UNIT/ML INSULN.PEN 8 UNIT SC (18:15)
[2022-06-14] MEDS: Ibuprofen 200 MG Tablet PO (18:15)
[2022-06-14] MEDS: Ondansetron ODT 4 MG Tablet 8 MG PO (18:46)
[2022-06-14 19:00] VITALS: PULSE 60
[2022-06-14 22:00] VITALS: PULSE 60; RESP 16; O2SAT 99
[2022-06-14] MEDS: Insulin Lispro 100 UNIT/ML INSULN.PEN SC (22:37)
[2022-06-14] MEDS: Carvedilol 6.25 MG Tablet PO (22:41)
[2022-06-14] MEDS: Ursodiol 250 MG Tablet PO (22:41)
[2022-06-14] MEDS: rifAXIMin 550 MG Tablet PO (22:42)
[2022-06-14] MEDS: Lactulose 20 GM/30 ML UDC 40 GM PO (22:42)
[2022-06-14] MEDS: Magnesium Chloride 64 MG Delay Rel.Tablet 128 MG PO (22:42)
[2022-06-14 23:30] VITALS: BP 151/69; PULSE 59; RESP 16; TEMP 36.7; O2SAT 99
[2022-06-14] MEDS: Pregabalin 25 MG Capsule PO (23:34)
[2022-06-14] MEDS: carBAMazepine 200 MG Tablet 100 MG PO (23:35)
[2022-06-14 23:46] LABS: Bedside Glucose 205 mg/dL (74-106)
[2022-06-15] VITALS (17 sets, daily range): BP systolic 133–180; BP diastolic 8–88; PULSE 61–76; RESP 16–18; TEMP 36.6–37.3; O2SAT 95–98
[2022-06-15] MEDS: Lactulose 20 GM/30 ML UDC 40 GM PO ×3 (05:50→21:28)
[2022-06-15] MEDS: Sucralfate 1 GM Tablet PO ×2 (05:51→17:18)
[2022-06-15 06:13] LABS: Absolute Lymphocyte Count 0.48 X10^3/uL (0.83-4.51); Absolute Neutrophil Count 2.2 X10^3/uL (2.0-7.7); Basophil# 0.03 X10^3/uL; Eosinophil# 0.11 X10^3/uL; Eosinophils% 3.5 % (0-5); Hematocrit 17.6 % (37-47); Lymphocyte # 0.48 X10^3/ul (0.83-4.51); Lymphocyte % 15.4 % (19-41); Mean Corpuscular Volume 94.1 fL (81-99); Mean Platelet Vol. 10.7 fl (6.2-12.0); Monocyte# 0.33 X10^3/uL; Monocyte% 10.6 % (0-10); NRBC Flagged by Analyzer 0 % (0-5); Neutrophil # 2.15 X10^3/uL (2.7-7.7); Neutrophil % 68.9 % (47-70); POSITIVE COUNT YES; POSITIVE DIFFERENTIAL YES; Platelet Count 59 K/mm3 (150-450); RBC Distribution Width CV 14.6 % (11.6-14.6); Red Blood Count 1.87 M/mm3 (4.2-5.4); White Blood Count 3.1 K/mm3 (4.4-11.0)
[2022-06-15 06:19] LABS: Differential Indicated SCAN CRITERIA MET; Hemoglobin 5.8 g/dL (12.0-15.0)
[2022-06-15 06:33] LABS: Platelet Estimate MOD DEC (ADEQ)
[2022-06-15 06:38] LABS: ALB/GLOB Ratio 0.6 RATIO (0.9-2.4); AST(SGOT) 32 U/L (15-37); Alanine Aminotransfer ALT/SGPT 21 U/L (13-56); Albumin, Serum 2.2 g/dL (3.2-5.0); Alkaline Phosphatase 141 U/L (45-117); Anion Gap 5 (5-15); BUN 26 mg/dL (7-18); Calcium,Total 7.7 mg/dL (8.5-10.1); Chloride 114 mmol/L (98-107); Creatinine, Serum 1.86 mg/dL (0.55-1.02); EST Glomerular Filtration Rate 30 mL/min (>60); Est Glom Filt Rate - Afr Amer 36 mL/min (>60); Estimated Creatinine Clearance 36.56 ml/min; Globulin 3.4 g/dL (2.2-4.2); Glucose 136 mg/dL (74-106); Potassium 3.9 mmol/L (3.5-5.1); Protein, Total 5.6 g/dL (6.4-8.2); Sodium Level 142 mmol/L (136-145)
--- NOTE | 2022-06-15 06:42 | PCM.HOSP.N ---
Hospitalist Note Repeat AM Hgb 5.8, will order 2 u PRBC.
--- NOTE | 2022-06-15 07:56 | PN.HOSP_ITS ---
Subjective Subjective Patient admitted with Confusion, being groggy. Lethargic and drowsy. Her blood sugar was low 60. Objective Data Objective Data Vital Signs: Vital Signs Temp Pulse Resp BP Pulse Ox O2 Del Method 99.1 F 76 16 135/56 H 97 Room Air 06/15/22 06:55 06/15/22 07:01 06/15/22 03:13 06/15/22 03:13 06/15/22 03:13 06/15/22 03:13 Oxygen Delivery Method Room Air Weight: 196 lb 8 oz Body Mass Index (BMI) 29.0 Intake & Output: Intake and Output for Last 24 Hours 06/13/22 06/14/22 06/15/22 23:59 23:59 23:59 Intake Total 270 / 470 200 / 200 Balance 270 / 470 200 / 200 Lab / Micro Data Result Diagrams: 06/15/22 05:35 06/15/22 05:35 Labs: Laboratory Results - last 24 hr 06/14/22 15:10: WBC 2.9 L, RBC 2.29 L, Hgb 7.2 L, Hct 21.3 L, MCV 93.0, MCH 31.4, MCHC 33.8, RDW Std Deviation 48.9 H, RDW Coeff of Valentina 14.6, Plt Count 69 L , MPV 10.7, Immature Gran % (Auto) 0.000, Neut % (Auto) 71.5 H, Lymph % (Auto) 14.3 L, [place] % (Auto) 10.8 H, Eos % (Auto) 2.4, Baso % (Auto) 1.0, Absolute Neuts (auto) 2.1, Absolute Lymphs (auto) 0.41 L, Nucleated RBC % 0, Differential Comment SCANNED 06/14/22 15:10: PT Cancelled, INR Cancelled 06/14/22 15:10: Sodium 140, Potassium 4.6, Chloride 110 H, Carbon Dioxide 25.0, Anion Gap 5, BUN 27 H, Creatinine 1.84 H, Estim Creat Clear Calc 36.95, Est GFR (MDRD) Af Amer 37 L, Est GFR (MDRD) Non-Af 30 L, BUN/Creatinine Ratio 14.7, Glucose 253 H, Calcium 8.0 L, Total Bilirubin 1.20 H, AST 60 H, ALT 27, Alkaline Phosphatase 159 H, Total Protein 6.6, Albumin 2.6 L, Globulin 4.0, Albumin/Globulin Ratio 0.6 L 06/14/22 15:10: Ammonia 68.0 H 06/14/22 15:10: Lactic Acid 1.7 06/14/22 15:10: Blood Type O POSITIVE, Antibody Screen NEGATIVE 06/14/22 15:10: Crossmatch See Detail 06/14/22 15:30: PT 15.8 H, INR 1.3 06/14/22 15:45: Urine Color Yellow, Urine Clarity Sl Cloudy, Urine pH 5.0, Ur Specific [place] 1.020, Urine Protein 30 H, Urine Glucose (UA) Normal, Urine Ketones Negative, Urine Occult Blood 25 H, Urine Nitrite Positive H, Urine Bilirubin Negative, Urine Urobilinogen Normal, Ur Leukocyte Esterase 100 H, Urine RBC 0 SEEN, Urine WBC 5-10 SEEN, Ur Squamous Epith Cells 0-5 SEEN, Urine Bacteria 2+, Hyaline Casts 10-25 SEEN, Urine Mucus 0 SEEN 06/14/22 17:30: POC Glucose 222 H 06/14/22 22:34: POC Glucose 205 H 06/15/22 05:35: WBC 3.1 L, RBC 1.87 L, Hgb 5.8 L*, Hct 17.6 L, MCV 94.1, MCH 31.0, MCHC 33.0, RDW Std Deviation 49.0 H, RDW Coeff of [place]ina 14.6, Plt Count 59 L , MPV 10.7, Immature Gran % (Auto) 0.600, Neut % (Auto) 68.9, Lymph % (Auto) 15.4 L, [place] % (Auto) 10.6 H, Eos % (Auto) 3.5, Baso % (Auto) 1.0, Absolute Neuts (auto) 2.2, Absolute Lymphs (auto) 0.48 L, Nucleated RBC % 0, Diff Path Review March mitali, Platelet Estimate MOD 06/15/22 05:35: Sodium 142, Potassium 3.9, Chloride 114 H, Carbon Dioxide 23.0, Anion Gap 5, BUN 26 H, Creatinine 1.86 H, Estim Creat Clear Calc 36.56, Est GFR (MDRD) Af Amer 36 L, Est GFR (MDRD) Non-Af 30 L, BUN/Creatinine Ratio 14.0, Glucose 136 H, Calcium 7.7 L, Total Bilirubin 0.70, AST 32, ALT 21, Alkaline Phosphatase 141 H, Total Protein 5.6 L, Albumin 2.2 L, Globulin 3.4, Albumin/Globulin Ratio 0.6 L Micro: Microbiology 06/14/22 16:30 Nasal Secretion SARS-CoV-2 & FLU Antigen (Rapid) - Final Radiography Diagnostic Testing: Radiology Impression Chest X-Ray 06/14/22 16:07 IMPRESSION: 1. Moderate right lower lobe pneumonia with a mild to moderate right pleural effusion. 2. Moderate cardiomegaly without heart failure. 3. Mild atelectatic changes in the right upper lobe. 4. Residue of a previous TIPS procedure. No free subdiaphragmatic air. Electronically Signed: Henrry Bartlett MD at 16:28 EDT , Physical Exam Narrative She denies abdominal pain. Seen and examined. General: Lethargic, slow low-tone speech. Disoriented. HEENT: Atraumatic, PERRLA, EOMI, Normocephalic Oral: No Gingival or Mucosal Lesions/ Ulcerations Neck: Supple, No JVD, Negative Carotid Bruits Lungs: Air entry diminished in bilateral lung bases. No crepitation/rhonchi Cardiovascular: Regular rate, Regular Rhythm, Normal S1, Normal S2, No murmurs Abdomen: Mild ascites. No tenderness. Bowel Sounds Present, Soft, no palpable mass. : No renal angle tenderness. No suprapubic tenderness. Extremities: No edema, Capillary Refill Less than 3 Seconds Skin: No rashes, No breakdown Musculoskeletal: No Tenderness to Palpation of Joints or Extremities Neurological: Cranial nerves II-XII grossly intact, DTR 2+/4 no focal neurological deficit Psych/Mental Status: Flat affect. Assessment & Plan Assessment/Plan (1) Right lower lobe pneumonia: (2) Acute encephalopathy: PLAN: Plan 1. Acute encephalopathy, multifactorial-toxic/metabolic encephalopathy secondary to decompensated autoimmune cirrhosis and possible infectious related to underlying UTI/pneumonia. Treat underlying processes. 06/15: Patient on lactulose and Xifaxan. Continue 2. 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 Continue lactulose, rifaximin. 3. Right lower lobe pneumonia-IV azithromycin and IV Rocephin. Albuterol and DuoNeb aerosols. Sputum and blood cultures ordered. 06/15: E. coli UTI: Urine culture shows more than 100,000 E. col. continues ceftriaxone. Chest x-ray initially reviewed shows right lower lobe opacity possible infiltrate, moderate right pleural effusion/atelectasis. 4. Acute UTI-IV Rocephin, 5. Chronic anemia/pancytopenia-related to underlying liver disease. Trend CBC. Transfuse for hemoglobin less than 7. 6. Type 2 diabetes [id number] with sliding scale insulin. 7. Hypertension- stable, continue current regimen. 8. Hypothyroidism-continue Synthroid regimen. 9. Chronic kidney disease stage IIIb-at baseline. 10. Severe chronic malnutrition-as evidenced by poor oral intake, weight loss. Dietitian consult. DVT prophylaxis- SCDs Charges/Coding Visit Charges Inpatient E&M: 86275 Subs Hosp L2
[2022-06-15] MEDS: Insulin Lispro 100 UNIT/ML INSULN.PEN 8 UNIT SC ×2 (07:58→12:51)
[2022-06-15 08:20] LABS: Bedside Glucose 147 mg/dL (74-106)
[2022-06-15] MEDS: Magnesium Chloride 64 MG Delay Rel.Tablet 128 MG PO ×2 (09:49→21:31)
[2022-06-15] MEDS: Insulin Glargine-YFGN 100 UNIT/ML Pen 10 UNIT SC (09:49)
[2022-06-15] MEDS: Sertraline 50 MG Tablet PO (09:50)
[2022-06-15] MEDS: Pantoprazole Sodium 40 MG Tablet PO (09:51)
[2022-06-15] MEDS: LURASIDONE HCL 20 MG TABLET 40 MG PO (09:51)
[2022-06-15] MEDS: rifAXIMin 550 MG Tablet PO ×2 (09:51→21:29)
[2022-06-15] MEDS: Levothyroxine 75 MCG Tablet PO (09:51)
[2022-06-15] MEDS: amLODIPine 2.5 MG Tablet PO (09:51)
[2022-06-15] MEDS: Ursodiol 250 MG Tablet PO ×2 (09:51→21:29)
[2022-06-15] MEDS: Carvedilol 6.25 MG Tablet PO ×2 (09:52→21:30)
[2022-06-15] MEDS: Furosemide 20 MG Tablet PO (09:52)
[2022-06-15] MEDS: 0.9% Saline Lock 10 ML Syringe IV ×2 (09:52→15:54)
[2022-06-15] MEDS: carBAMazepine 200 MG Tablet 100 MG PO ×2 (11:45→21:29)
[2022-06-15] MEDS: Pregabalin 25 MG Capsule PO ×2 (12:35→21:37)
[2022-06-15 12:36] LABS: Pathologist Review Reviewed
[2022-06-15] MEDS: Insulin Lispro 100 UNIT/ML INSULN.PEN SC ×2 (12:51→21:32)
[2022-06-15 13:10] LABS: Bedside Glucose 194 mg/dL (74-106)
--- NOTE | 2022-06-15 13:14 | CASEMGMT ---
Readmission chart review: 03/23-03/27/22 Failure to thrive 04/16-04/18/22 Hepatic encephalopathy 05/14-05/15/22 Hepatic encephalopathy 05/22-05/24/22 Hepatic encephalopathy Pt w/ history significant for cirrhosis of the liver secondary to autoimmune hepatitis. Pt states is compliant with meds at home and has had multiple appt's with [facility] transplant team. Pt is s/p TIPS procedure previously. Pt usually here with high ammonia level and then discharges home within a day or so. Pt is active with [facility] for SN, PT/OT, SW. Pt was discharged to [facility] on 03/27/22 for FTT/debility but subsequent visits, pt has been from home. Pt does have a sig other who assists with care at times. Pt states does have home oxygen that she uses prn but cannot remember name of company. Pt is currently on room air. Pt states no concerns with going home at time of discharge. [facility] order in and green sheet on chart for same. CM to follow for any further discharge planning/needs. Stuart MORRISON CM
[2022-06-15] MEDS: Ondansetron ODT 4 MG Tablet 8 MG PO (16:29)
[2022-06-15] MEDS: Ceftriaxone 1 GM/50 ML BAG IV (17:15)
[2022-06-15 17:41] LABS: Bedside Glucose 145 mg/dL (74-106)
[2022-06-15 21:11] LABS: Bedside Glucose 182 mg/dL (74-106)
[2022-06-16 03:40] VITALS: BP 168/75; PULSE 62; PULSE 65; RESP 16; TEMP 37.2; O2SAT 97
[2022-06-16] MEDS: Sucralfate 1 GM Tablet PO (06:21)
[2022-06-16] MEDS: Lactulose 20 GM/30 ML UDC 40 GM PO (06:21)
[2022-06-16 07:00] VITALS: PULSE 63
[2022-06-16 07:45] LABS: Absolute Neutrophil Count 2.8 X10^3/uL (2.0-7.7); Basophil# 0.05 X10^3/uL; Basophil% 1.2 % (0-1); Eosinophil# 0.17 X10^3/uL; Eosinophils% 4.1 % (0-5); Hematocrit 24.9 % (37-47); Hemoglobin 8.6 g/dL (12.0-15.0); Lymphocyte % 16.8 % (19-41); Mean Corp Hgb Conc 34.5 g/dL (32-36); Mean Corpuscular Hgb 31.5 pg (27.0-32.0); Mean Corpuscular Volume 91.2 fL (81-99); Mean Platelet Vol. 11.5 fl (6.2-12.0); Monocyte# 0.37 X10^3/uL; Monocyte% 8.9 % (0-10); NRBC Flagged by Analyzer 0 % (0-5); Neutrophil # 2.84 X10^3/uL (2.7-7.7); Neutrophil % 68.3 % (47-70); POSITIVE COUNT YES; Platelet Count 65 K/mm3 (150-450); RBC Distribution Width CV 15.8 % (11.6-14.6); RBC Distribution Width SD 50.5 fl (35.1-43.9); Red Blood Count 2.73 M/mm3 (4.2-5.4); White Blood Count 4.2 K/mm3 (4.4-11.0)
[2022-06-16 07:47] LABS: Differential Indicated SCAN CRITERIA MET
[2022-06-16 07:59] LABS: ALB/GLOB Ratio 0.6 RATIO (0.9-2.4); AST(SGOT) 38 U/L (15-37); Alanine Aminotransfer ALT/SGPT 22 U/L (13-56); Albumin, Serum 2.4 g/dL (3.2-5.0); Alkaline Phosphatase 158 U/L (45-117); Anion Gap 4 (5-15); BUN 29 mg/dL (7-18); BUN/Creat Ratio 15.1 RATIO (10-20); Calcium,Total 7.8 mg/dL (8.5-10.1); Chloride 115 mmol/L (98-107); Creatinine, Serum 1.92 mg/dL (0.55-1.02); EST Glomerular Filtration Rate 29 mL/min (>60); Est Glom Filt Rate - Afr Amer 35 mL/min (>60); Estimated Creatinine Clearance 35.41 ml/min; Globulin 3.7 g/dL (2.2-4.2); Glucose 169 mg/dL (74-106); Potassium 3.8 mmol/L (3.5-5.1); Protein, Total 6.1 g/dL (6.4-8.2); Sodium Level 142 mmol/L (136-145)
[2022-06-16 08:11] VITALS: BP 156/73; PULSE 59; RESP 16; TEMP 36.6; O2SAT 97
[2022-06-16] MEDS: Insulin Lispro 100 UNIT/ML INSULN.PEN SC (08:23)
[2022-06-16] MEDS: Insulin Lispro 100 UNIT/ML INSULN.PEN 8 UNIT SC (08:23)
[2022-06-16 08:40] LABS: Bedside Glucose 173 mg/dL (74-106)
[2022-06-16 09:45] LABS: Platelet Estimate MOD DEC (ADEQ)
[2022-06-16 09:46] LABS: Red Cell Morphology NORM C+C NORMAL (NORM C&C)
--- NOTE | 2022-06-16 10:11 | DCINST_ITS ---
Discharge Instructions Diet Discharge Diet: Light diet - advance as tolerated and 2000 mg Sodium Diet Activity Discharge Activity: May Not Drive Dressing / Incision Call your doctor if you observe: Fever of 101 or Higher, Coldness, Increased Pain, Numbness or Tingling, Change in Color, Inability to urinate, Inability to have a bowel movement, Using more than 1 pad per hour, Shortness of breath, Dizziness, Fainting spells, Swelling in the ankles, Chest pain, Prolonged hiccupping, Increased palpitations (irregular heartbeat), Calf discomfort and Uncontrolled pain Follow Up Care Test Results: Test results from this visit will be discussed in further detail at your follow- up appointment, if applicable. Discharge Plan Admission Admit Date/Time: 06/14/22 16:34 Primary Reason for Your Visit: Acute toxic metabolic encephalopathy, UTI Attending Provider: Terry Parry Primary Care Provider: Janay Canchola Consulting Providers: Albino Monson Discharge Orders/Prescriptions Prescriptions: New levofloxacin 500 mg tablet 500 mg PO DAILY Qty: 5 0RF Continued magnesium oxide 400 MG tablet 400 mg PO BID Label Comments: PER PHARMACY NOT COVERED BY INSURANCE THROUGH [employer]. PHARMACY UNSURE IF SHE IS GETTING OTC Xifaxan 550 MG tablet 550 mg PO BID sucralfate [Carafate] 1 gram Tablet 1 g PO DAILY pantoprazole 40 mg Tablet,Delayed Release (Dr/Ec) 40 mg PO DAILY sertraline 50 mg Tablet 50 mg PO DAILY ursodiol 300 mg capsule 300 mg PO BID Label Comments: . carbamazepine 100 mg Tablet Extended Release 12 Hr 100 mg PO BID zinc 50 mg Tablet 50 mg PO DAILY Label Comments: PER PHARMACY NOT COVERED BY INSURANCE THROUGH [employer]. PHARMACY UNSURE IF SHE IS GETTING OTC carvedilol 3.125 mg tablet 6.25 mg PO BID lurasidone 40 mg Tablet 40 mg PO DAILY Tresiba FlexTouch U-100 100 unit/mL (3 mL) Insulin Pen 10 unit SUBCUT DAILY amlodipine 2.5 mg Tablet 2.5 mg PO DAILY ergocalciferol (vitamin D2) [Vitamin D2] 1,250 mcg (50,000 unit) capsule 1,250 unit PO MOTH levothyroxine 75 mcg tablet 75 mcg PO DAILY ondansetron 4 mg tablet,disintegrating 8 mg PO Q8H PRN (Reason: Nausea And Vomiting) insulin lispro [Humalog KwikPen Insulin] 100 unit/mL insulin pen 8 unit subcut TIDCM Label Comments: +SLIDING SCALE UP TO 40 UNITS DAILY. pregabalin 25 mg capsule 25 mg PO BID lactulose 20 gram/30 mL solution 40 g PO TID Held torsemide 20 mg Tablet 10 mg PO DAILY Hold Instructions: Hold for 3 days then resume torsemide 20 mg daily Referrals / Follow Up: Janay Canchola MD [Primary Care Provider] - Disposition Disposition (needs filled in before D/C Order can be placed): Home, Self Care
[2022-06-16 11:00] VITALS: PULSE 63
[2022-06-16] MEDS: Menthol/Lanolin/Calamine/Znox 113 GM Tube 1 APPLIC TOPICAL (12:05)
[2022-06-16] MEDS: Furosemide 20 MG Tablet PO (12:07)
[2022-06-16] MEDS: Carvedilol 6.25 MG Tablet PO (12:07)
[2022-06-16] MEDS: LURASIDONE HCL 20 MG TABLET 40 MG PO (12:08)
[2022-06-16] MEDS: amLODIPine 2.5 MG Tablet PO (12:09)
[2022-06-16] MEDS: Magnesium Chloride 64 MG Delay Rel.Tablet 128 MG PO (12:09)
[2022-06-16] MEDS: Pantoprazole Sodium 40 MG Tablet PO (12:10)
[2022-06-16] MEDS: Levothyroxine 75 MCG Tablet PO (12:10)
[2022-06-16] MEDS: carBAMazepine 200 MG Tablet 100 MG PO (12:11)
[2022-06-16] MEDS: Ursodiol 250 MG Tablet PO (12:12)
[2022-06-16] MEDS: rifAXIMin 550 MG Tablet PO (12:13)
[2022-06-16] MEDS: Sertraline 50 MG Tablet PO (12:14)
[2022-06-16] MEDS: 0.9% Saline Lock 10 ML Syringe IV (12:16)
[2022-06-16 12:20] VITALS: BP 157/72; PULSE 61; RESP 18; TEMP 36.6; O2SAT 97
--- NOTE | 2022-06-16 12:21 | DS.PCM_ITS ---
Providers Date of Admission: 06/14/22 Date of Discharge: 06/16/22 Primary Care Physician: Dr. Janay Canchola MD Reason For Visit: ENCEPHALOPATHY FROM LIVER AND INFECTION Diagnosis Discharge Diagnosis (1) Right lower lobe pneumonia: Status: Acute Code(s): J18.9 - Pneumonia, unspecified organism (2) Acute encephalopathy: Status: Acute Code(s): G93.40 - Encephalopathy, unspecified Plan Is a 51-year-old female was admitted through ER for shortness of breath, confused, disoriented/altered mental status with history of decompensated autoimmune hepatitis. No fever. 1. Acute encephalopathy, multifactorial-toxic/metabolic encephalopathy secondary to decompensated autoimmune cirrhosis and infectious related to u nderlying E. coli UTI/pneumonia. Treat underlying processes. 06/15: Patient on lactulose and Xifaxan. Continue 06/16: Acute encephalopathy resolved. Patient advised secondary to lactulose rifaximin. 2. 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 Continue lactulose, rifaximin. 3. Right lower lobe pneumonia-IV azithromycin and IV Rocephin. Albuterol and DuoNeb aerosols. Sputum and blood cultures ordered. 06/15: E. coli UTI: Urine culture shows more than 100,000 E. col. continues ceftriaxone. Chest x-ray initially reviewed shows right lower lobe opacity possible infiltrate, moderate right pleural effusion/atelectasis. 06/16: Patient is discharged on Levaquin for 5 days to complete total of 7 days of antibiotic to cover both pneumonia and E. coli UTI. 4. Acute UTI-IV Rocephin, As mentioned above 5. Chronic anemia/pancytopenia-related to underlying liver disease. Patient hemoglobin dropped to 5.8 and was given 2 units of PRBC transfusion. 06/16: Patient hemoglobin is on baseline 8.6. Ferrous sulfate every other day L- ascorbic acid prescriptions sent to pharmacy 6. Type 2 diabetes [id number] with sliding scale insulin. 06/16: Glucose is on baseline. Continuing insulin home regimen 7. Hypertension- stable, continue current regimen. 8. Hypothyroidism-continue Synthroid regimen. 9. Chronic kidney disease stage IIIb-at baseline. 10. Severe chronic malnutrition-as evidenced by poor oral intake, weight loss. Dietitian consult. DVT prophylaxis- SCDs Discharge medication reconciliation done. Discharge follow-up instructions completed. Discharge process discussed with the patient and all questions were answered to patient's satisfaction. Total time spent, exact 35 minutes on discharge meds reconciliation, examination, coordination of care with nurses and ancillary staff, review of imaging and blood test and discussion with the patient on follow-up instructions. Medications at Discharge Home Medications magnesium oxide 400 mg PO BID supplement 03/14/17 rifaximin 550 mg tablet (Xifaxan) 550 mg PO BID IBS 11/04/17 pantoprazole 40 mg tablet,delayed release 40 mg PO DAILY GERD 03/20/21 sertraline 50 mg tablet 50 mg PO DAILY DEPRESSION 03/20/21 sucralfate 1 gram tablet (Carafate) 1 g PO DAILY STOMACH 03/20/21 ursodiol 300 mg capsule 300 mg PO BID LIVER 04/25/21 carbamazepine 100 mg tablet,extended release,12 hr 100 mg PO BID seizures 04/29/21 zinc 50 mg tablet 50 mg PO DAILY SUPPLEMENT 09/18/21 carvedilol 3.125 mg tablet 6.25 mg PO BID HEART 03/23/22 insulin degludec 100 unit/mL (3 mL) subcutaneous pen (Tresiba FlexTouch U-100 insulin) 10 unit subcut DAILY DM 04/16/22 lurasidone 40 mg tablet 40 mg PO DAILY MOOD 04/16/22 torsemide 20 mg tablet 10 mg PO DAILY diuretic 04/16/22 amlodipine 2.5 mg tablet 2.5 mg PO DAILY BP 05/14/22 ergocalciferol (vitamin D2) 1,250 mcg (50,000 unit) capsule (Vitamin D2) 1,250 unit PO MOTH SUPPLMENT 05/14/22 insulin lispro 100 unit/mL subcutaneous pen (Humalog KwikPen (U-100) Insulin) 8 unit subcut TIDCM diabetes 05/14/22 levothyroxine 75 mcg tablet 75 mcg PO DAILY THYROID 05/14/22 ondansetron 4 mg disintegrating tablet 8 mg PO Q8H PRN Nausea And Vomiting 05/14/22 pregabalin 25 mg capsule 25 mg PO BID PAIN 05/14/22 lactulose 20 gram/30 mL oral solution 40 g PO TID liver failure 06/11/22 ascorbic acid (vitamin C) 500 mg tablet 500 mg PO BID #60 tabs 06/16/22 ferrous sulfate 325 mg (65 mg iron) tablet,delayed release 325 mg PO QODAY #30 tabs 06/16/22 levofloxacin 500 mg tablet 500 mg PO DAILY #5 tabs 06/16/22 Physical Exam Narrative She denies abdominal pain. Seen and examined. General: No fever. Awake alert oriented x3. HEENT: Atraumatic, PERRLA, EOMI, Normocephalic Oral: No Gingival or Mucosal Lesions/ Ulcerations Neck: Supple, No JVD, Negative Carotid Bruits Lungs: Air entry diminished in bilateral lung bases. No crepitation/rhonchi Cardiovascular: Regular rate, Regular Rhythm, Normal S1, Normal S2, No murmurs Abdomen: Mild ascites. No tenderness. No rebound tenderness. Bowel Sounds Present, Soft, no palpable mass. : No renal angle tenderness. No suprapubic tenderness. Extremities: No edema, Capillary Refill Less than 3 Seconds Skin: No rashes, No breakdown Musculoskeletal: No Tenderness to Palpation of Joints or Extremities Neurological: Cranial nerves II-XII grossly intact, DTR 2+/4 no focal neuro logical deficit Psych/Mental Status: Flat affect. Medical Records Data Medical Nutrition Assessment Dietitian: Malnutrition Criteria Met Start: 06/15/22 10:13 Freq: Status: Active Protocol: Document 06/15/22 10:13 AG (Rec: 06/15/22 10:13 [id number]) Nutrition Malnutrition Evidence of Malnutrition Exists Yes Malnutrition (moderate): Chronic Evidenced By Suboptimal Energy Intake ( Moderate),Physical Changes ( Mild) Clinical Problem Chronic Disease or Condition Related Malnutrition Etiology chronic moderate malnutrition related to inadequate energy intake w/ increased energy needs d/t liver disease Signs/Symptoms as evidenced by estimated PO intake meeting <75% of estimated energy needs >3 months; mild muscle wasting/ fat loss evident in upper extremities- clavicle, temporal, and orbital areas. Status Active Problem Recommendation Dietitian Recommendations/Changes continue cardiac, 1800 calorie controlled diet as tolerated; will consider liberalizing diet if PO intake declines. Will add 120mL Glucerna ONS 4x /day w/ medpass for additional protein/calories if consumed given malnutrition. Weight / BMI Weight Weight: 196 lb 8.003 oz Body Mass Index (BMI) 29.0 ABG / Lab / Microbiology Data Result Diagrams: 06/16/22 07:14 06/16/22 07:14 Laboratory: Laboratory Results - last 24 hr 06/14/22 15:10: Crossmatch See Detail 06/15/22 05:35: Diff Path Review Reviewed 06/15/22 12:37: POC Glucose 194 H 06/15/22 17:14: POC Glucose 145 H 06/15/22 17:15: WBC Cancelled, Corrected WBC Cancelled, RBC Cancelled, Hgb Cancelled, Hct Cancelled, MCV Cancelled, MCH Cancelled, MCHC Cancelled, RDW Std Deviation Cancelled, RDW Coeff of Valentina Cancelled, Plt Count 06/15/22 20:51: POC Glucose 182 H 06/16/22 07:14: WBC 4.2 L, RBC 2.73 L, Hgb 8.6 L, Hct 24.9 L, MCV 91.2, MCH 31.5, MCHC 34.5, RDW Std Deviation 50.5 H, RDW Coeff of Valentina 15.8 H, Plt Count 65 L, MPV 11.5, Immature Gran % (Auto) 0.700, Neut % (Auto) 68.3, Lymph % (Auto) 16.8 L, Terrell % (Auto) 8.9, Eos % (Auto) 4.1, Baso % (Auto) 1.2 H, Absolute Neuts (auto) 2.8, Absolute Lymphs (auto) 0.70 L, Nucleated RBC % 0, Platelet Estimate MOD DEC, RBC Morphology NORM C+C 06/16/22 07:14: Sodium 142, Potassium 3.8, Chloride 115 H, Carbon Dioxide 23.0, Anion Gap 4 L, BUN 29 H, Creatinine 1.92 H, Estim Creat Clear Calc 35.41, Est GFR (MDRD) Af Amer 35 L, Est GFR (MDRD) Non-Af 29 L, BUN/Creatinine Ratio 15.1, Glucose 169 H, Calcium 7.8 L, Total Bilirubin 1.20 H, AST 38 H, ALT 22, Alkaline Phosphatase 158 H, Total Protein 6.1 L, Albumin 2.4 L, Globulin 3.7, Albumin /Globulin Ratio 0.6 L 06/16/22 08:19: POC Glucose 173 H Microbiology: Microbiology 06/14/22 15:45 Urine, Clean Catch Urine Culture - Final Presumptive E. coli 06/14/22 16:30 Nasal Secretion SARS-CoV-2 & FLU Antigen (Rapid) - Final D/C Instructions Discharge Diet: Light diet - advance as tolerated and 2000 mg Sodium Diet Call your doctor if you observe: Fever of 101 or Higher, Coldness, Increased Pain, Numbness or Tingling, Change in Color, Inability to urinate, Inability to have a bowel movement, Using more than 1 pad per hour, Shortness of breath, Dizziness, Fainting spells, Swelling in the ankles, Chest pain, Prolonged hiccupping, Increased palpitations (irregular heartbeat), Calf discomfort and Uncontrolled pain Meaningful Use Info Meaningful Use Diagnoses (Choose all that apply): None applicable Discharge Plan Admission Admit Date/Time: 06/14/22 16:34 Primary Reason for Your Visit: Acute toxic metabolic encephalopathy, UTI Attending Provider: Terry Parry Primary Care Provider: Janay Canchola Consulting Providers: Albino Monson Discharge Orders/Prescriptions Prescriptions: New levofloxacin 500 mg tablet 500 mg PO DAILY Qty: 5 0RF ascorbic acid (vitamin C) 500 mg tablet 500 mg PO BID Qty: 60 2RF ferrous sulfate 325 mg (65 mg iron) tablet,delayed release (DR/EC) 325 mg PO QODAY Qty: 30 1RF Continued magnesium oxide 400 MG tablet 400 mg PO BID Label Comments: PER PHARMACY NOT COVERED BY INSURANCE THROUGH [employer]. PHARMACY UNSURE IF SHE IS GETTING OTC Xifaxan 550 MG tablet 550 mg PO BID sucralfate [Carafate] 1 gram Tablet 1 g PO DAILY pantoprazole 40 mg Tablet,Delayed Release (Dr/Ec) 40 mg PO DAILY sertraline 50 mg Tablet 50 mg PO DAILY ursodiol 300 mg capsule 300 mg PO BID Label Comments: . carbamazepine 100 mg Tablet Extended Release 12 Hr 100 mg PO BID zinc 50 mg Tablet 50 mg PO DAILY Label Comments: PER PHARMACY NOT COVERED BY INSURANCE THROUGH [employer]. PHARMACY UNSURE IF SHE IS GETTING OTC carvedilol 3.125 mg tablet 6.25 mg PO BID lurasidone 40 mg Tablet 40 mg PO DAILY Tresiba FlexTouch U-100 100 unit/mL (3 mL) Insulin Pen 10 unit SUBCUT DAILY amlodipine 2.5 mg Tablet 2.5 mg PO DAILY ergocalciferol (vitamin D2) [Vitamin D2] 1,250 mcg (50,000 unit) capsule 1,250 unit PO MOTH levothyroxine 75 mcg tablet 75 mcg PO DAILY ondansetron 4 mg tablet,disintegrating 8 mg PO Q8H PRN (Reason: Nausea And Vomiting) insulin lispro [Humalog KwikPen Insulin] 100 unit/mL insulin pen 8 unit subcut TIDCM Label Comments: +SLIDING SCALE UP TO 40 UNITS DAILY. pregabalin 25 mg capsule 25 mg PO BID lactulose 20 gram/30 mL solution 40 g PO TID Held torsemide 20 mg Tablet 10 mg PO DAILY Hold Instructions: Hold for 3 days then resume torsemide 20 mg daily Referrals / Follow Up: Janay Canchola MD [Primary Care Provider] - Disposition Disposition (needs filled in before D/C Order can be placed): Home, Self Care Charges/Coding Visit Charges Inpatient E&M: 44966 Disch Hosp
[2022-06-16] MEDS: Pregabalin 25 MG Capsule PO (12:25)
[2022-06-16] MEDS: Insulin Glargine-YFGN 100 UNIT/ML Pen 10 UNIT SC (12:26)
[2022-06-16 12:35] LABS: Bedside Glucose 158 mg/dL (74-106)
[2022-06-16] MEDS: Ceftriaxone 1 GM Vial IM (14:49)
--- NOTE | 2022-06-18 09:53 | CASEMGMT ---
This TAMIKO MELLO received call from Ashlee at [facility] and she states that pt will need a new order for [facility] SN, PT/OT, aide, and SW as pt's 'episode' is up. New order placed. Stuart MORRISON CM
== END 2022-06-16 14:59 | disposition home or self-care (01) | DRG 193 ==
LOC: ED 16:25 → PCU 16:47
PROVIDERS: Admitting Provider Family Medicine; Emergency Provider Emergency Medicine; PCP Internal Medicine; Visit Provider Internal Medicine
DX: J18.9 Pneumonia, unspecified organism (principal); K72.00 Acute and subacute hepatic failure without coma; G93.41 Metabolic encephalopathy; E43 Unspecified severe protein-calorie malnutrition; D61.818 Other pancytopenia; N39.0 Urinary tract infection, site not specified; D63.8 Anemia in other chronic diseases classified elsewhere; E11.22 Type 2 diabetes mellitus with diabetic chronic kidney disease; B96.20 Unspecified Escherichia coli [E. coli] as the cause of diseases classified elsewhere; E11.40 Type 2 diabetes mellitus with diabetic neuropathy, unspecified; F25.9 Schizoaffective disorder, unspecified; F31.9 Bipolar disorder, unspecified; K74.60 Unspecified cirrhosis of liver; N18.32 Chronic kidney disease, stage 3b; Z79.4 Long term (current) use of insulin; K75.4 Autoimmune hepatitis; I12.9 Hypertensive chronic kidney disease with stage 1 through stage 4 chronic kidney disease, or unspecified chronic kidney disease; E03.9 Hypothyroidism, unspecified; G89.29 Other chronic pain; Z86.14 Personal history of Methicillin resistant Staphylococcus aureus infection; Z87.19 Personal history of other diseases of the digestive system; Z79.899 Other long term (current) drug therapy; Z68.29 Body mass index [BMI] 29.0-29.9, adult
CPT/HCPCS: 36415; 70450; 71045; 72125; 80048; 80053; 81001; 82140; 82962; 83605; 85025; 85610; 85730; 86850; 86900; 86901; 86920; 87040; 87086; 87088; 87186; 87428; 93005; 97162; 97166; 97802; 99283; 99285; J7040; P9016; P9612; A4216; J0696

== ENCOUNTER 2022-06-29 13:18 | Inpatient (IN) | payer MEDICARE, MEDICAID, SELFPAY ==
[2022-06-29] VITALS (11 sets, daily range): BP systolic 135–199; BP diastolic 67–87; PULSE 55–62; RESP 15–24; TEMP 36.4–36.9; O2SAT 92–99; BMI 30.5
--- NOTE | 2022-06-29 13:52 | EKG12_ITS ---
Test Reason : SOB Blood Pressure : / mmHG Vent. Rate : 056 BPM Atrial Rate : 056 BPM P-R Int : 188 ms QRS Dur : 116 ms QT Int : 494 ms P-R-T Axes : 001 -40 068 degrees QTc Int : 476 ms Sinus bradycardia Left axis deviation Incomplete left bundle branch block Minimal voltage criteria for LVH, may be normal variant ( Cecilia product ) Abnormal ECG Confirmed by PAM ZAMBRANO, RANCHO ([id number]), sound editor NORA MENDES ([id number]) on 07/02/2022 9:52:33 AM Referred By: Confirmed By:RANCHO OROZCO MD
--- NOTE | 2022-06-29 13:57 | ED.VIS.DYS ---
HPI History of Present Illness Chief Complaint: Shortness of Breath Informant: patient Narrative Narrative: Patient presents stating that she still has pneumonia. She was admitted here recently for UTI and pneumonia. She was sent home on antibiotics which she did take. I looked this up and she was sent home on Levaquin. She states she is not coughing now and not having sputum production. But she followed up with her nurse practitioner. She states that an x-ray was done that showed she still has pneumonia. I talked the patient about symptoms. Again, she is not having coughing or hemoptysis or sputum production. However she is short of breath with exertion. She is on 3 L of oxygen at home. But when she gets up and walks around she takes her oxygen off because it is easier to do that. She only wears the oxygen sitting down but she only gets short of breath exerting herself?without the oxygen. Patient also states she does have what sounds to be an albuterol MDI at home. But she has not tried using it. We discussed indications for this. She states she does hear wheezing at times. [facility] Medical History (Updated 06/29/22 @ 21:[address] Alex Lizarraga MD) Acute kidney injury superimposed on chronic kidney disease Acute on chronic renal insufficiency Anemia Autoimmune hepatitis Bacteremia due to methicillin resistant Staphylococcus epidermidis Bipolar disorder CHI (closed head injury) Chronic pain Chronic renal insufficiency, stage III (moderate) Cirrhosis of liver Debility Depression Diabetes Diabetes mellitus Diabetes mellitus, type 2 Encephalopathy acute Essential hypertension Reilly's thyroiditis Hepatic encephalopathy Hepatitis Hypertension Hypothyroidism Kidney disease MRSA bacteremia Myocardial infarct Non-smoker On home oxygen therapy Pancreatitis Pancytopenia Peripheral neuropathy Right lower lobe pneumonia Schizoaffective disorder Severe sepsis Splenomegaly Stage 3b chronic kidney disease (CKD) Weakness Home Medications magnesium oxide 400 mg PO BID supplement 03/14/17 [History Last Taken 06/14/22] rifaximin 550 mg tablet (Xifaxan) 550 mg PO BID IBS 11/04/17 [History Last Taken 06/14/22] pantoprazole 40 mg tablet,delayed release 40 mg PO DAILY GERD 03/20/21 [History Last Taken 06/14/22] sertraline 50 mg tablet 50 mg PO DAILY DEPRESSION 03/20/21 [History Last Taken 06/14/22] sucralfate 1 gram tablet (Carafate) 1 g PO DAILY STOMACH 03/20/21 [History Last Taken 06/14/22] ursodiol 300 mg capsule 300 mg PO BID LIVER 04/25/21 [History Last Taken 06/14/22] carbamazepine 100 mg tablet,extended release,12 hr 100 mg PO BID seizures 04/29/21 [History Last Taken 06/14/22] zinc 50 mg tablet 50 mg PO DAILY SUPPLEMENT 09/18/21 [History Last Taken 06/14/22] carvedilol 3.125 mg tablet 6.25 mg PO BID HEART 03/23/22 [History Last Taken 06/14/22] insulin degludec 100 unit/mL (3 mL) subcutaneous pen (Tresiba FlexTouch U-100 insulin) 10 unit subcut DAILY DM 04/16/22 [History Last Taken 06/14/22] lurasidone 40 mg tablet 40 mg PO DAILY MOOD 04/16/22 [History Last Taken 06/14/22] torsemide 20 mg tablet 10 mg PO DAILY diuretic 04/16/22 [History Last Taken 06/14/22] amlodipine 2.5 mg tablet 2.5 mg PO DAILY BP 05/14/22 [History Last Taken 06/14/22] ergocalciferol (vitamin D2) 1,250 mcg (50,000 unit) capsule (Vitamin D2) 1,250 unit PO MOTH SUPPLMENT 05/14/22 [History Last Taken 06/14/22] insulin lispro 100 unit/mL subcutaneous pen (Humalog KwikPen (U-100) Insulin) 8 unit subcut TIDCM diabetes 05/14/22 [History Last Taken 06/14/22] levothyroxine 75 mcg tablet 75 mcg PO DAILY THYROID 05/14/22 [History Last Taken 06/14/22] ondansetron 4 mg disintegrating tablet 8 mg PO Q8H PRN Nausea And Vomiting 05/14/22 [History Last Taken 06/13/22] pregabalin 25 mg capsule 25 mg PO BID PAIN 05/14/22 [History Last Taken 06/14/22] lactulose 20 gram/30 mL oral solution 40 g PO TID liver failure 06/11/22 [History Last Taken 06/14/22] ascorbic acid (vitamin C) 500 mg tablet 500 mg PO BID #60 tabs 06/16/22 [Rx Last Taken Unknown] ferrous sulfate 325 mg (65 mg iron) tablet,delayed release 325 mg PO QODAY #30 tabs 06/16/22 [Rx Last Taken Unknown] levofloxacin 500 mg tablet 500 mg PO DAILY #5 tabs 06/16/22 [Rx Last Taken Unknown] Allergy/AdvReac Type Severity Reaction Status Date / Time adhesive Allergy Rash Verified 06/29/22 13:20 escitalopram oxalate Allergy blindness Verified 06/29/22 13:20 [From Lexapro] Fish Containing Products Allergy Other Verified 06/29/22 13:20 gabapentin [From Neurontin] Allergy Alan Verified 06/29/22 13:20 Jez's Syndrome lamotrigine [From Lamictal] Allergy Blindness Verified 06/29/22 13:20 topiramate [From Topamax] Allergy Other Verified 06/29/22 13:20 sour cream AdvReac Severe Anaphylaxis Uncoded 06/29/22 13:20 Preservatives AdvReac Intermediate passed Uncoded 06/29/22 13:20 out, lungs deflated Family History Father CVA (cerebral vascular accident) Myocardial infarction Heart disease CAD (coronary artery disease) Grandmother CHF (congestive heart failure) Sister Hypertension Mother Heart disease Surgical History H/O: hysterectomy History of abdominal paracentesis (10/2019) History of appendectomy History of cholecystectomy S/P TIPS (transjugular intrahepatic portosystemic shunt) Social History household members: significant other housing: house Smoking Status: Never smoker alcohol intake: never details: Unknown substance use type: does not use ROS ROS ED Constitutional Constitutional ED: Denies chills, fever(s), sweats or weight loss Eyes Eyes: Denies change in vision ENT ENT ED: Denies rhinorrhea or sore throat Cardiovascular Cardiovascular: Denies chest pain, palpitations or racing heartbeat Respiratory/Chest Respiratory/Chest: Reports dyspnea on exertion; Denies cough or sputum Gastrointestinal Gastrointestinal: Denies nausea or vomiting Genitourinary Genitourinary ED: Denies dysuria Integumentary Denies rash Neurologic Neurologic: Denies headache(s) Psychiatric Psychiatric: Reports anxiety Endocrine Endocrinology: Denies polydipsia or polyuria Hematologic/Lymphatic Hematologic/Lymphatic: Denies easy bleeding or easy bruising Allergic/Immunologic Allergic/Immunologic ED: Denies urticaria EXAM Physical Exam Const Vital Signs: 06/29/22 13:18 06/29/22 13:23 06/29/22 13:55 Temperature 98.1 F 98.1 F Temperature Source Temporal Temporal Pulse Rate 55 L 55 L Respiratory Rate 16 16 Respiratory Effort Normal Non-Labored Respiratory Depth Normal Respiratory Pattern Normal Blood Pressure 135/67 H 135/67 H Blood Pressure Mean 89 89 Pulse Ox 99 99 Oxygen Delivery Method Room Air Room Air Room Air 06/29/22 14:20 06/29/22 14:20 06/29/22 15:40 Temperature 98 F 98 F Temperature Source Temporal Temporal Pulse Rate 57 L 55 L 57 L Respiratory Rate 22 H 24 H 21 H Respiratory Effort Respiratory Depth Respiratory Pattern Blood Pressure 163/87 H 149/72 H Blood Pressure Mean 112 97 Pulse Ox 92 93 Oxygen Delivery Method Room Air 06/29/22 18:00 06/29/22 19:08 06/29/22 21:03 Temperature 98.4 F Temperature Source Temporal Pulse Rate 60 61 62 Respiratory Rate 15 20 H 18 Respiratory Effort Respiratory Depth Respiratory Pattern Normal Blood Pressure 199/81 H 189/83 H Blood Pressure Mean 120 118 Pulse Ox 99 96 Oxygen Delivery Method Room Air Room Air 06/29/22 21:04 Temperature 97.8 F Temperature Source Temporal Pulse Rate 62 Respiratory Rate 18 Respiratory Effort Respiratory Depth Respiratory Pattern Blood Pressure 189/83 H Blood Pressure Mean 118 Pulse Ox 96 Oxygen Delivery Method Room Air Positive well nourished and well developed Constitutional Narrative: Patient does have some mildly heavy breathing but just very subtle. Her rate is normal. Her saturations are normal even though she is on room air and not on her 3 L of oxygen. She is not lethargic or confused today. General Appearance ED: well developed; Negative for pallor HEENT Reports moist mucous membranes Eyes General Eye ED: Negative for scleral icterus Neck no meningeal signs and no JVD Resp normal respiratory effort Resp Narrative: She does have some slight decreased breath sounds toward her base mostly on the right. She has a hint of expiratory wheeze. Cardio regular rate and regular rhythm GI non-tender and non-distended Back/Spine no CVA tenderness Extremity Extremity Narrative: Trace bilateral edema. Neuro oriented x3 Psych Attitude: No agitated Mood & Affect: Negative for depressed or anxious Skin no wounds General Skin Exam: Negative for jaundice or pallor MDM MDM MDM Narrative Medical decision making narrative: Patient's blood work shows pancytopenia. This is not new. INR was 1.2. Electrolytes showed mild elevation in creatinine at 2.6. She also has a history renal dysfunction. BNP was elevated but she has been higher about 500 in the past. With her hypoxia increased effusion immobility we did do CT scan with contrast of her chest. There is no sign of PE. But there is quite a large effusion. I discussed case with hospitalist. With her very large effusion I think she does need to come in. She did see desaturate to 87% with ambulation. Hospitalist also requested I call Dr. Arboleda. She will likely need thoracentesis tomorrow. There are questions if this could be related to her TIPS procedure. However there is no report that says that she needs this redone or is having problems with it. Lab Data Attestation: I reviewed the patient's lab results. Labs: Laboratory Results - last 24 hr 06/29/22 06/29/22 06/29/22 15:10 15:10 15:10 WBC 3.0 L RBC 2.50 L Hgb 8.0 L Hct 23.9 L MCV 95.6 MCH 32.0 MCHC 33.5 RDW Std Deviation 59.5 H RDW Coeff of Valentina 17.2 H Plt Count 66 L MPV 11.3 Immature Gran % (Auto) 0.300 Neut % (Auto) 69.3 Lymph % (Auto) 16.4 L [place] % (Auto) 8.0 Eos % (Auto) 4.3 Baso % (Auto) 1.7 H Absolute Neuts (auto) 2.1 Absolute Lymphs (auto) 0.49 L Nucleated RBC % 0 Differential Comment SEE COMMENT Diff Path Review May foll Platelet Estimate MOD DEC RBC Morphology N CHROM Hypochromasia 1+ Anisocytosis 1+ Macrocytosis 1+ Ovalocytes RARE PT 15.2 H INR 1.2 Sodium 138 Potassium 4.2 Chloride 111 H Carbon Dioxide 21.0 Anion Gap 6 BUN 52 H Creatinine 2.26 H Estim Creat Clear Calc 30.09 Est GFR (MDRD) Af Amer 29 L Est GFR (MDRD) Non-Af 24 L BUN/Creatinine Ratio 23.0 H Glucose 240 H Calcium 8.1 L Total Bilirubin 1.00 AST 41 H ALT 22 Alkaline Phosphatase 180 H Troponin I High Sens 16 B-Natriuretic Peptide Total Protein 6.8 Albumin 2.6 L Globulin 4.2 Albumin/Globulin Ratio 0.6 L 06/29/22 15:10 WBC RBC Hgb Hct MCV MCH MCHC RDW Std Deviation RDW Coeff of Valentina Plt Count MPV Immature Gran % (Auto) Neut % (Auto) Lymph % (Auto) [place] % (Auto) Eos % (Auto) Baso % (Auto) Absolute Neuts (auto) Absolute Lymphs (auto) Nucleated RBC % Differential Comment Diff Path Review Platelet Estimate RBC Morphology Hypochromasia Anisocytosis Macrocytosis Ovalocytes PT INR Sodium Potassium Chloride Carbon Dioxide Anion Gap BUN Creatinine Estim Creat Clear Calc Est GFR (MDRD) Af Amer Est GFR (MDRD) Non-Af BUN/Creatinine Ratio Glucose Calcium Total Bilirubin AST ALT Alkaline Phosphatase Troponin I High Sens B-Natriuretic Peptide 410.6 H Total Protein Albumin Globulin Albumin/Globulin Ratio Radiography Diagnostic Testing: Clinical Impression(s) from Imaging Studies Chest X-Ray 06/29/22 15:45 IMPRESSION: Right pleural effusion, cannot exclude associated right basilar atelectasis and/or pneumonia. Electronically Signed: Denia Nguyen MD at 15:56 EDT , Chest CTA 06/29/22 17:32 IMPRESSION: No evidence of acute pulmonary emboli to the segmental level. Acute mild compression deformity of T8. Multiple segmental areas of collapse in the right lung due to large pleural effusion.. Subtle scattered groundglass and tiny nodular opacities in the left lung may represent infection and/or edema. Cirrhotic liver with evidence of portal hypertension including massive splenomegaly and a transjugular intrahepatic portosystemic shunt. Electronically Signed: Joey Boyce MD at 19:59 EDT , Discharge Plan Triage Chief Complaint: Shortness of Breath ED Provider: Alex Lizarraga Dx/Rx/DC Orders Clinical Impression: Pleural effusion, right, Hypoxia, Pancytopenia Prescriptions: No Action magnesium oxide 400 MG tablet 400 mg PO BID Label Comments: PER PHARMACY NOT COVERED BY INSURANCE THROUGH [employer] PHARMACY UNSURE IF SHE IS GETTING OTC Xifaxan 550 MG tablet 550 mg PO BID sucralfate [Carafate] 1 gram Tablet 1 g PO DAILY pantoprazole 40 mg Tablet,Delayed Release (Dr/Ec) 40 mg PO DAILY sertraline 50 mg Tablet 50 mg PO DAILY ursodiol 300 mg capsule 300 mg PO BID Label Comments: . carbamazepine 100 mg Tablet Extended Release 12 Hr 100 mg PO BID zinc 50 mg Tablet 50 mg PO DAILY Label Comments: PER PHARMACY NOT COVERED BY INSURANCE THROUGH [employer]. PHARMACY UNSURE IF SHE IS GETTING OTC carvedilol 3.125 mg tablet 6.25 mg PO BID torsemide 20 mg Tablet 10 mg PO DAILY Hold Instructions: Hold for 3 days then resume torsemide 20 mg daily lurasidone 40 mg Tablet 40 mg PO DAILY Tresiba FlexTouch U-100 100 unit/mL (3 mL) Insulin Pen 10 unit SUBCUT DAILY amlodipine 2.5 mg Tablet 2.5 mg PO DAILY ergocalciferol (vitamin D2) [Vitamin D2] 1,250 mcg (50,000 unit) capsule 1,250 unit PO MOTH levothyroxine 75 mcg tablet 75 mcg PO DAILY ondansetron 4 mg tablet,disintegrating 8 mg PO Q8H PRN (Reason: Nausea And Vomiting) insulin lispro [Humalog KwikPen Insulin] 100 unit/mL insulin pen 8 unit subcut TIDCM Label Comments: +SLIDING SCALE UP TO 40 UNITS DAILY. pregabalin 25 mg capsule 25 mg PO BID lactulose 20 gram/30 mL solution 40 g PO TID levofloxacin 500 mg tablet 500 mg PO DAILY Qty: 5 0RF ascorbic acid (vitamin C) 500 mg tablet 500 mg PO BID Qty: 60 2RF ferrous sulfate 325 mg (65 mg iron) tablet,delayed release (DR/EC) 325 mg PO QODAY Qty: 30 1RF Primary Care Provider: Janay Canchola Referrals: Janay Canchola MD [Primary Care Provider] - Disposition Disposition: Acute Care Hospital [facility]
[2022-06-29] MEDS: Ipratropium/Albuterol Sulfate 3 ML AMPUL.NEB INHALATION ×2 (14:18→19:08)
[2022-06-29 15:33] LABS: Absolute Lymphocyte Count 0.49 X10^3/uL (0.83-4.51); Absolute Neutrophil Count 2.1 X10^3/uL (2.0-7.7); Basophil# 0.05 X10^3/uL; Basophil% 1.7 % (0-1); Eosinophil# 0.13 X10^3/uL; Eosinophils% 4.3 % (0-5); Hematocrit 23.9 % (37-47); Lymphocyte # 0.49 X10^3/ul (0.83-4.51); Lymphocyte % 16.4 % (19-41); Mean Corp Hgb Conc 33.5 g/dL (32-36); Mean Corpuscular Volume 95.6 fL (81-99); Mean Platelet Vol. 11.3 fl (6.2-12.0); Monocyte# 0.24 X10^3/uL; NRBC Flagged by Analyzer 0 % (0-5); Neutrophil # 2.07 X10^3/uL (2.7-7.7); Neutrophil % 69.3 % (47-70); POSITIVE COUNT YES; POSITIVE DIFFERENTIAL YES; Platelet Count 66 K/mm3 (150-450); RBC Distribution Width CV 17.2 % (11.6-14.6); RBC Distribution Width SD 59.5 fl (35.1-43.9)
--- NOTE | 2022-06-29 15:45 | RAD_ITS ---
STUDY: X-RAY CHEST REASON FOR EXAM: Female, 51 years old. Shortness of breath TECHNIQUE: Frontal and lateral views of the chest. COMPARISON: 06/14/2022 FINDINGS: There is a moderate size right pleural effusion. Normal size heart. Normal mediastinum and sonny. Normal visualized pulmonary arteries. Normal visualized aortic arch and descending thoracic aorta. There is a superior endplate deformity of a mid thoracic vertebra, likely chronic. Normal visualized ribs, clavicles, and shoulders. There is a stent visualized within the right upper abdomen. RAD/Chest PA and Lateral IMPRESSION: Right pleural effusion, cannot exclude associated right basilar atelectasis and/or pneumonia. Electronically Signed: Denia Nguyen MD at 15:56 EDT ,
[2022-06-29 15:50] LABS: ALB/GLOB Ratio 0.6 RATIO (0.9-2.4); AST(SGOT) 41 U/L (15-37); Alanine Aminotransfer ALT/SGPT 22 U/L (13-56); Albumin, Serum 2.6 g/dL (3.2-5.0); Alkaline Phosphatase 180 U/L (45-117); Anion Gap 6 (5-15); BUN 52 mg/dL (7-18); Calcium,Total 8.1 mg/dL (8.5-10.1); Chloride 111 mmol/L (98-107); Creatinine, Serum 2.26 mg/dL (0.55-1.02); EST Glomerular Filtration Rate 24 mL/min (>60); Est Glom Filt Rate - Afr Amer 29 mL/min (>60); Estimated Creatinine Clearance 30.09 ml/min; Globulin 4.2 g/dL (2.2-4.2); Glucose 240 mg/dL (74-106); International Normalized Ratio 1.2; Potassium 4.2 mmol/L (3.5-5.1); Protein, Total 6.8 g/dL (6.4-8.2); Prothrombin Time (Protime)PT. 15.2 SECONDS (11.7-14.9); Sodium Level 138 mmol/L (136-145); Troponin-I HS 16 pg/mL (3.0-54.0)
[2022-06-29 16:09] LABS: Differential Indicated SCAN CRITERIA MET
[2022-06-29 16:24] LABS: Anisocytosis 1+; Hypochromasia 1+; Macrocytosis 1+; Ovalocyte RARE; Platelet Estimate MOD DEC (ADEQ); Red Cell Morphology N CHROM NORMAL (NORM C&C)
[2022-06-29 17:12] LABS: BNP,B-Type NATRIURETIC PEPTIDE 410.6 pg/mL (0-100)
--- NOTE | 2022-06-29 17:32 | CT_ITS ---
INDICATION: pe EXAMINATION: CTA Chest WO/W Contrast Injection TECHNIQUE: Helically acquired images were obtained of the chest following administration of IV contrast. A radiation dose optimization technique was used for this scan. 3D postprocessing images including MIPS were reviewed. IV Contrast dosage and agent: IV 70mL [id number] COMPARISON: Chest CT 11/04/2017. FINDINGS: Lungs: Multiple segmental areas of collapse in the right lung due to pleural effusion.. Subtle scattered groundglass and tiny nodular opacities in the left lung. Mediastinum: The heart is moderately enlarged. No mediastinal, hilar or axillary adenopathy. The thoracic aorta is unremarkable. No obvious filling defect seen within the visualized pulmonary arteries. Pleura: Large right pleural effusion, almost entirely occupying the right thoracic cavity. Bones/Soft tissues: There are diffuse degenerative changes of the spine. Acute mild compression deformity of T8. Upper abdomen: The liver is cirrhotic. There is evidence of portal hypertension including massive splenic megaly and a TIPS shunt partially visualized. CT/CTA Chest W/WO Contrast IMPRESSION: No evidence of acute pulmonary emboli to the segmental level. Acute mild compression deformity of T8. Multiple segmental areas of collapse in the right lung due to large pleural effusion.. Subtle scattered groundglass and tiny nodular opacities in the left lung may represent infection and/or edema. Cirrhotic liver with evidence of portal hypertension including massive splenomegaly and a transjugular intrahepatic portosystemic shunt. Electronically Signed: Joey Boyce MD at 19:59 EDT ,
[2022-06-29 21:39] LABS: Magnesium 2.5 mg/dL (1.6-2.6); Phosphorus 3.9 mg/dL (2.5-4.9)
--- NOTE | 2022-06-29 23:03 | PCM.HP.STD ---
HPI - General General Date of Admission: 06/29/22 Date of Service: 06/29/22 Chief Complaint: Shortness of breath for 2 weeks. No fever, no cough. No chest pain. HPI Narrative The patient was seen and examined on 06/29/2022. She was actually accepted and supposed to go to [facility] bacteriology professor but unfortunately went to the floor [facility] did not had bed. ANA GARCÍA, is a 51 F with history of decompensated autoimmune hepatitis related cirrhosis came to ED for progressive worsening of shortness of breath for 2 weeks. Prior to that she was admitted in the hospital from 06/14-06/16 for right lower lobe pneumonia and E. coli UTI. She was appropriately treated with IV antibiotics ceftriaxone and Zithromax and discharged to [facility] and her pneumonia symptoms got resolved including cough and sputum production. She was discharged on room air. She said after discharge couple of days later she started feeling short of breath mainly on exertion which progressed to shortness of breath even at rest. She does not have cough, fever, URI symptoms. Denies chest pain, chest tightness or pressure. In ED, chest x-ray was done which is independently reviewed and shows large severe right pleural effusion with underlying atelectasis. Furthermore, chest CTA was done which did not show evidence of pulmonary embolism to segmental level but large pleural effusion with multiple segmental areas of collapse in the right lung. Subtle scattered groundglass and tiny nodular opacities in left lung. Cirrhotic liver with evidence of portal hypertension including massive splenomegaly and TIPS. Patient's clinical condition, natural history of decompensated cirrhosis, chest x-ray CTA chest and labs discussed with the ED physician, Dr. Lizarraga. It was also discussed with the it coordinator Dr. Arboleda. We all agreed that patient needs either revision of TIPS or new tapes in order to treat right pleural effusion and ascites. Even right thoracocentesis will be a temporizing measure as pleural effusion/hepatic hydrothorax will quickly get recur therefore agreed on transferring the patient to [facility] where she is in the process of liver transplant listing. She had few things left before the listing. After that, Dr. Dr. Lizarraga said that she is accepted in [facility] and she will go [facility] shortly therefore H&P was not done at that time and admission order was canceled but unfortunately get carried to the floor. This H&P was done after patient got transferred into the floor. [facility] Medical History Acute kidney injury superimposed on chronic kidney disease Acute on chronic renal insufficiency Anemia Autoimmune hepatitis Bacteremia due to methicillin resistant Staphylococcus epidermidis Bipolar disorder CHI (closed head injury) Chronic pain Chronic renal insufficiency, stage III (moderate) Cirrhosis of liver Debility Depression Diabetes Diabetes mellitus Diabetes mellitus, type 2 Encephalopathy acute Essential hypertension Reilly's thyroiditis Hepatic encephalopathy Hepatitis Hypertension Hypothyroidism Kidney disease MRSA bacteremia Myocardial infarct Non-smoker On home oxygen therapy Pancreatitis Pancytopenia Peripheral neuropathy Right lower lobe pneumonia Schizoaffective disorder Severe sepsis Splenomegaly Stage 3b chronic kidney disease (CKD) Weakness Home Medications magnesium oxide 400 mg PO BID supplement 03/14/17 [History Last Taken 06/14/22] rifaximin 550 mg tablet (Xifaxan) 550 mg PO BID IBS 11/04/17 [History Last Taken 06/14/22] pantoprazole 40 mg tablet,delayed release 40 mg PO DAILY GERD 03/20/21 [History Last Taken 06/14/22] sertraline 50 mg tablet 50 mg PO DAILY DEPRESSION 03/20/21 [History Last Taken 06/14/22] sucralfate 1 gram tablet (Carafate) 1 g PO DAILY STOMACH 03/20/21 [History Last Taken 06/14/22] ursodiol 300 mg capsule 300 mg PO BID LIVER 04/25/21 [History Last Taken 06/14/22] carbamazepine 100 mg tablet,extended release,12 hr 100 mg PO BID seizures 04/29/21 [History Last Taken 06/14/22] zinc 50 mg tablet 50 mg PO DAILY SUPPLEMENT 09/18/21 [History Last Taken 06/14/22] carvedilol 3.125 mg tablet 6.25 mg PO BID HEART 03/23/22 [History Last Taken 06/14/22] insulin degludec 100 unit/mL (3 mL) subcutaneous pen (Tresiba FlexTouch U-100 insulin) 10 unit subcut DAILY DM 04/16/22 [History Last Taken 06/14/22] lurasidone 40 mg tablet 40 mg PO DAILY MOOD 04/16/22 [History Last Taken 06/14/22] torsemide 20 mg tablet 10 mg PO DAILY diuretic 04/16/22 [History Last Taken 06/14/22] amlodipine 2.5 mg tablet 2.5 mg PO DAILY BP 05/14/22 [History Last Taken 06/14/22] ergocalciferol (vitamin D2) 1,250 mcg (50,000 unit) capsule (Vitamin D2) 1,250 unit PO MOTH SUPPLMENT 05/14/22 [History Last Taken 06/14/22] insulin lispro 100 unit/mL subcutaneous pen (Humalog KwikPen (U-100) Insulin) 8 unit subcut TIDCM diabetes 05/14/22 [History Last Taken 06/14/22] levothyroxine 75 mcg tablet 75 mcg PO DAILY THYROID 05/14/22 [History Last Taken 06/14/22] ondansetron 4 mg disintegrating tablet 8 mg PO Q8H PRN Nausea And Vomiting 05/14/22 [History Last Taken 06/13/22] pregabalin 25 mg capsule 25 mg PO BID PAIN 05/14/22 [History Last Taken 06/14/22] lactulose 20 gram/30 mL oral solution 40 g PO TID liver failure 06/11/22 [History Last Taken 06/14/22] ascorbic acid (vitamin C) 500 mg tablet 500 mg PO BID #60 tabs 06/16/22 [Rx Last Taken Unknown] ferrous sulfate 325 mg (65 mg iron) tablet,delayed release 325 mg PO QODAY #30 tabs 06/16/22 [Rx Last Taken Unknown] levofloxacin 500 mg tablet 500 mg PO DAILY #5 tabs 06/16/22 [Rx Last Taken Unknown] Allergy/AdvReac Type Severity Reaction Status Date / Time adhesive Allergy Rash Verified 06/29/22 13:20 escitalopram oxalate Allergy blindness Verified 06/29/22 13:20 [From Lexapro] Fish Containing Products Allergy Other Verified 06/29/22 13:20 gabapentin [From Neurontin] Allergy Alan Verified 06/29/22 13:20 Jez's Syndrome lamotrigine [From Lamictal] Allergy Blindness Verified 06/29/22 13:20 topiramate [From Topamax] Allergy Other Verified 06/29/22 13:20 sour cream AdvReac Severe Anaphylaxis Uncoded 06/29/22 13:20 Preservatives AdvReac Intermediate passed Uncoded 06/29/22 13:20 out, lungs deflated Family History Father CVA (cerebral vascular accident) Myocardial infarction Heart disease CAD (coronary artery disease) Grandmother CHF (congestive heart failure) Sister Hypertension Mother Heart disease Surgical History H/O: hysterectomy History of abdominal paracentesis (10/2019) History of appendectomy History of cholecystectomy S/P TIPS (transjugular intrahepatic portosystemic shunt) Social History household members: significant other housing: house Smoking Status: Never smoker alcohol intake: never details: Unknown substance use type: does not use ROS ROS Narrative Constitutional: Reports fatigue and weakness. No fever, severe shortness of breath HEENT: Reports systems reviewed and no addt'l complaints, except as documented Respiratory/Chest: Denies chest pain, dyspnea at rest. Gastrointestinal: Mild abdominal swelling. Denies coffee ground emesis, hematemesis or vomiting Genitourinary: Denies burning urination or new urinary tract symptoms Musculoskeletal: No joint pain or limited range of motion but low muscle mass/bulk in extremities Neurologic: Denies seizure-like activity skin: No ulcer. No rash Endocrinology: Reports systems reviewed and no addt'l complaints, except as documented Hematologic/Lymphatic: Pancytopenia, chronic. Reports systems reviewed and no addt'l complaints, except as documented Rest 14 ROS are negative except as mentioned in HPI Vital Signs Vital Signs Vital Signs: 06/29/22 19:08 06/29/22 21:03 06/29/22 21:04 Temperature 97.8 F Temperature Source Temporal Pulse Rate 61 62 62 Respiratory Rate 20 H 18 18 Respiratory Pattern Normal Blood Pressure 189/83 H 189/83 H Blood Pressure Mean 118 118 Blood Pressure Source Blood Pressure Position Blood Pressure Location Pulse Ox 96 96 Oxygen Delivery Method Room Air Room Air 06/29/22 22:47 06/30/22 00:14 06/30/22 03:00 Temperature 97.6 F L 98.4 F Temperature Source Temporal Oral Pulse Rate 60 62 63 Respiratory Rate 15 19 H 16 Respiratory Pattern Blood Pressure 185/81 H 195/84 H 179/76 H Blood Pressure Mean 115 121 110 Blood Pressure Source Blood Pressure Position Blood Pressure Location Pulse Ox 96 93 93 Oxygen Delivery Method Room Air Room Air 06/30/22 04:24 06/30/22 05:28 06/30/22 07:05 Temperature 97.4 F L 98.5 F 98.5 F Temperature Source Temporal Temporal Temporal Pulse Rate 63 73 66 Respiratory Rate 18 19 H 17 Respiratory Pattern Blood Pressure 170/77 H 170/58 H 179/84 H Blood Pressure Mean 108 95 115 Blood Pressure Source Blood Pressure Position Blood Pressure Location Pulse Ox 93 93 94 Oxygen Delivery Method Room Air Room Air Room Air 06/30/22 07:42 06/30/22 07:52 06/30/22 11:05 Temperature 98.4 F Temperature Source Oral Pulse Rate 65 68 Respiratory Rate 18 Respiratory Pattern Blood Pressure 197/84 H Blood Pressure Mean 121 Blood Pressure Source Monitor Blood Pressure Position Semi-Fowlers Blood Pressure Location Right Arm Pulse Ox 96 Oxygen Delivery Method Room Air Room Air 06/30/22 14:44 06/30/22 13:45 06/30/22 17:50 Temperature 97.7 F L 98.0 F Temperature Source Oral Oral Pulse Rate 63 62 66 Respiratory Rate 18 20 H Respiratory Pattern Blood Pressure 184/80 H 197/95 H Blood Pressure Mean 114 129 Blood Pressure Source Monitor Monitor Blood Pressure Position Semi-Fowlers Semi-Fowlers Blood Pressure Location Right Arm Right Forearm Pulse Ox 96 61 Oxygen Delivery Method Room Air Room Air Weight Weight: 208 lb 8 oz Body Mass Index (BMI) 30.7 Physical Exam Narrative General: Alert, Oriented x3, Cooperative, pale looking. HEENT: Atraumatic, PERRLA, EOMI, Normocephalic Oral: Oral mucosa dry.? No Gingival or Mucosal Lesions/ Ulcerations Neck: Supple, No JVD, Negative Carotid Bruits Lungs:? Air entry severely diminished in lower two third of right lung as compared to left.? Stony dullness to right side from right fourth ICS downward posteriorly. Cardiovascular: Sinus bradycardia, Normal S1, Normal S2, No murmurs Abdomen: Bowel Sounds Present, Soft, Non Tender, mild ascites, shifting dullness : No renal angle tenderness.? No suprapubic tenderness. Extremities: Bilateral leg 3+ edema, Capillary Refill Less than 3 Seconds Skin: No rashes, No breakdown Musculoskeletal: Moderate muscle atrophy of extremities, loss of subcutaneous fat. No Tenderness to Palpation of Joints or Extremities Neurological: Cranial nerves II-XII grossly intact, DTR? 2+/4, no focal lateralizing neurological signs Psych/Mental Status: Flat affect Results Lab / Micro Data Result Diagrams: 06/29/22 15:10 06/29/22 15:10 Labs: Laboratory Results - last 24 hr 06/29/22 15:10: Phosphorus 3.9, Magnesium 2.5 06/30/22 00:11: POC Glucose 150 H 06/30/22 08:00: POC Glucose 165 H 06/30/22 11:52: POC Glucose 195 H 06/30/22 16:42: POC Glucose 128 H Micro: Microbiology 06/29/22 14:40 Nasal Secretion SARS-CoV-2 & FLU Antigen (Rapid) - Final Radiology Impression Chest CTA 06/29/22 17:32 IMPRESSION: No evidence of acute pulmonary emboli to the segmental level. Acute mild compression deformity of T8. Multiple segmental areas of collapse in the right lung due to large pleural effusion.. Subtle scattered groundglass and tiny nodular opacities in the left lung may represent infection and/or edema. Cirrhotic liver with evidence of portal hypertension including massive splenomegaly and a transjugular intrahepatic portosystemic shunt. Electronically Signed: Joey Boyce MD at 19:59 EDT , Assessment & Plan Assessment/Plan (1) Pleural effusion, right: (2) Pancytopenia: PLAN: Plan This 51-year-old female admitted with severe shortness of breath due to severe right hepatic hydrothorax, due to decompensated autoimmune hepatitis related cirrhosis 1.? Acute dyspnea due to decompensated autoimmune hepatitis with cirrhosis, complicated with ascites and large and severe right hepatic hydrothorax: The patient was transferred to PCU as she did not get the bed in [facility] until morning. Patient knows that she needs to go to [facility] either revision of TIPS or new TIPS insertion. Patient had TIPS in the past.? In January 2022 she was told that her TIPS is not working properly its not working for long time therefore she has ascites and now right hepatic hydrothorax.? Discussed with continuous process rotary drum tanner Dr. Arboleda.? It seems the root cause is nonfunctional TIPS.? We agreed that even after ultrasound-guided thoracocentesis, pleural effusion will come back from ascites.? ? Patient is undergoing evaluation for liver transplant listing.? ED physician talked to [facility] and accepted the patient.? On Lasix 40 IV twice daily as temporizing measure. Chest x-ray chest CTA individually reviewed.? Large right pleural effusion almost occupying two thirds of right lung with a right basilar atelectasis.? Patient does not have clinical signs or symptoms of pneumonia.? She is actually just finished treatment course for pneumonia 2.? JULIANNE on CKD stage IIIb: She was taken off diuretic about a month ago by [facility].? BNP 410.? Last BUN/creatinine on 06/16/2022 was 29/1.92.? BUN/creatinine since then has gotten worse 52/2.26.? She is not a good candidate for diuretic as she might need double organ transplant liver and kidney if there is further deterioration in kidney function.? ? She might not diurese ascites or hepatic hydrothorax with? usual dose of diuretic with creatinine 2.26. 3. Pancytopenia, anemia of chronic disease and severe thrombocytopenia due to decompensated cirrhosis complicated with portal hypertension, splenomegaly and ascites and right hepatic hydrothorax. Monitor CBC 4.? History of hepatic toxic metabolic encephalopathy: Encephalopathy is well controlled on lactulose and Xifaxan and continue.? Serum phosphorus 3.9, magnesium 2.5, potassium 4.2.? Sodium 138. 5. Diabetes mellitus type 2: On Lantus 10 units subcutaneous daily. ACHS with Humalog sliding scale coverage. 6. Chronic bipolar disorder: On Latuda. 7. VTE prophylaxis: Bilateral SCDs. Pharmacological prophylaxis contraindicated in view of severe pancytopenia with high risk of bleeding. Living will/advanced directive/end of life care: She has advanced directive and living will. Her sister is power of senior trial attorney for health. After discussion of benefits/risks procedures involved with full code, DNR CC arrest and DNR CC, the patient opted for full code. Patient does want artificial life support including intubation, tube feed, ventilator and/chest compression, central venous catheter, vasopressor and DC shock if needed Total time spent in ivog-as-rurg encounter in discussion of advanced directive 16 minutes. Charges/Coding Visit Charges Inpatient E&M: 91237 Init Hosp L3 Procedures Hospitalists Procedures: 02937 Advncd Care Plan 30 Min
[2022-06-30] VITALS (16 sets, daily range): BP systolic 170–197; BP diastolic 58–95; PULSE 61–73; RESP 16–20; TEMP 36.3–36.9; O2SAT 89–96; BMI 30.7
--- NOTE | 2022-06-30 00:08 | PCM.HOSP.N ---
Hospitalist Note I saw this patient at the request of ER physician Dr. Lizarraga Reason for consult: Progressive worsening of shortness of breath for 2 weeks HPI: Patient complaining of shortness of breath after couple days of discharge: 06/16/2022. She was admitted between 06/14 to 06/16/2022 for acute toxic metabolic encephalopathy due to decompensated cirrhosis and right lower lobe pneumonia. She said she does not have cough, fever, chest pain, chest tightness but been getting progressively short of breath initially on exertion but now at rest. Past medical history: Reviewed. Autoimmune hepatitis with cirrhosis. Diabetes mellitus type 2, hypothyroidism, hypertension, CKD stage IIIb, chronic anemia and pancytopenia due to decompensated cirrhosis and recent pneumonia and E. coli UTI. This was treated with appropriate course of IV antibiotic ceftriaxone and Zithromax and discharged on Levaquin. On exam General: Alert, Oriented x3, Cooperative, pale looking. HEENT: Atraumatic, PERRLA, EOMI, Normocephalic Oral: Oral mucosa dry. No Gingival or Mucosal Lesions/ Ulcerations Neck: Supple, No JVD, Negative Carotid Bruits Lungs: Air entry severely diminished in lower two third of right lung as compared to left. Stony dullness to right side right fourth ICS posteriorly. Cardiovascular: Sinus bradycardia, Normal S1, Normal S2, No murmurs Abdomen: Bowel Sounds Present, Soft, Non Tender, mild ascites, shifting dullness : No renal angle tenderness. No suprapubic tenderness. Extremities: Bilateral leg 3+ edema, Capillary Refill Less than 3 Seconds Skin: No rashes, No breakdown Musculoskeletal: No Tenderness to Palpation of Joints or Extremities Neurological: Cranial nerves II-XII grossly intact, DTR 2+/4, no focal lateralizing neurological signs Psych/Mental Status: Flat affect 1. Acute dyspnea due to decompensated autoimmune hepatitis with cirrhosis, complicated with ascites and right hepatic hydrothorax severe. Patient had TIPS in the past. In January 2022 she was told that her TIPS is not working properly its not working for long time therefore she has ascites and now right hepatic hydrothorax. Discussed with job training supervisor Dr. Arboleda. It seems the root causes nonfunctional TIPS. We agreed that even after ultrasound-guided thoracocentesis, pleural effusion will come back from ascites. She needs revision or new TIPS. This was discussed with ER vision Dr. [place]. Patient is undergoing evaluation for liver transplant. ED physician talked to [facility] and accepted the patient. Probably patient will go tonight. Lasix 40 mg IV given as a temporizing measure. Chest x-ray chest CTA individually reviewed. Large right pleural effusion almost occupying two thirds of right lung with a right basilar atelectasis. Patient does not have clinical signs or symptoms of pneumonia. She is actually just finished treatment course for pneumonia 2. JULIANNE on CKD stage IIIb: She was taken off diuretic about a month ago by [facility]. BNP 410. Last BUN/creatinine on 06/16/2022 was 29/1.92. BUN/creatinine since then has gotten worse 52/2.26. She is not a good candidate for diuretic as she might need double organ transplant liver and kidney. 1 dose of Lasix given just to help breathing. She might not diurese ascites or hepatic hydrothorax with usual dose with creatinine 2.26. 3. Multiple other comorbid's include pancytopenia, anemia of chronic disease and severe thrombocytopenia due to decompensated cirrhosis. 4. History of hepatic encephalopathy: Encephalopathy is well controlled on lactulose and Xifaxan and continue. Serum phosphorus 3.9, magnesium 2.5, potassium 4.2. Sodium 138. Total time of the visit including total time [id number] spent in counseling or coordination of care, (more than 50% of the total time, spent in obtaining medical information from nurses and other ancillary care providers,explaining to the patient about labs, imaging, diagnosis and management of active complex medical conditions), discussion with job training supervisor and ED physician, review of previous medical record, review of labs and imaging is 45 minutes. Clinical Impression(s) from Imaging Studies Chest X-Ray 06/29/22 15:45 IMPRESSION: Right pleural effusion, cannot exclude associated right basilar atelectasis and/or pneumonia. Electronically Signed: Denia Nguyen MD at 15:56 EDT , Chest CTA 06/29/22 17:32 IMPRESSION: No evidence of acute pulmonary emboli to the segmental level. Acute mild compression deformity of T8. Multiple segmental areas of collapse in the right lung due to large pleural effusion.. Subtle scattered groundglass and tiny nodular opacities in the left lung may represent infection and/or edema. Cirrhotic liver with evidence of portal hypertension including massive splenomegaly and a transjugular intrahepatic portosystemic shunt. Electronically Signed: Joey Boyce MD at 19:59 EDT , Microbiology Past 72 Hours 06/29/22 14:40 Nasal Secretion SARS-CoV-2 & FLU Antigen (Rapid) - Final Laboratory Results 06/29/22 15:10: WBC 3.0 L, RBC 2.50 L, Hgb 8.0 L, Hct 23.9 L, MCV 95.6, MCH 32.0, MCHC 33.5, RDW Std Deviation 59.5 H, RDW Coeff of Valentina 17.2 H, Plt Count 66 L, MPV 11.3, Immature Gran % (Auto) 0.300, Neut % (Auto) 69.3, Lymph % (Auto) 16.4 L, Glenn % (Auto) 8.0, Eos % (Auto) 4.3, Baso % (Auto) 1.7 H, Absolute Neuts (auto) 2.1, Absolute Lymphs (auto) 0.49 L, Nucleated RBC % 0, Differential Comment SEE COMMENT, Diff Path Review May foll, Platelet Estimate MOD DEC, RBC Morphology N CHROM, Hypochromasia 1+, Anisocytosis 1+, Macrocytosis 1+, Ovalocytes RARE 06/29/22 15:10: PT 15.2 H, INR 1.2 06/29/22 15:10: Sodium 138, Potassium 4.2, Chloride 111 H, Carbon Dioxide 21.0, Anion Gap 6, BUN 52 H, Creatinine 2.26 H, Estim Creat Clear Calc 30.09, Est GFR (MDRD) Af Amer 29 L, Est GFR (MDRD) Non-Af 24 L, BUN/Creatinine Ratio 23.0 H, Glucose 240 H, Calcium 8.1 L, Total Bilirubin 1.00, AST 41 H, ALT 22, Alkaline Phosphatase 180 H, Troponin I High Sens 16, Total Protein 6.8, Albumin 2.6 L, Globulin 4.2, Albumin/Globulin Ratio 0.6 L 06/29/22 15:10: B-Natriuretic Peptide 410.6 H 06/29/22 15:10: Phosphorus 3.9, Magnesium 2.5 Procedures Hospitalists Procedures: Other Procedure - See Report (Prolonged service code for ED [id number])
[2022-06-30 00:30] LABS: Bedside Glucose 150 mg/dL (74-106)
--- NOTE | 2022-06-30 05:35 | ED.RN ---
CALLED [facility] TO CHECK BED STATUS AT THIS TIME. PATIENT IS STILL WAITING FOR BED AT THIS TIME. TRANSFER CENTER NOT ABLE TO GIVE AN ETA FOR BEDSIDE ASSIGNMENT. PATIENT WILL BE ADMITTED AT THIS TIME
[2022-06-30] MEDS: Pantoprazole Sodium 40 MG Tablet PO (09:54)
[2022-06-30] MEDS: Levothyroxine 75 MCG Tablet PO (09:54)
[2022-06-30] MEDS: Sertraline 50 MG Tablet PO (09:54)
[2022-06-30] MEDS: amLODIPine 2.5 MG Tablet PO (09:54)
[2022-06-30] MEDS: Carvedilol 6.25 MG Tablet PO ×2 (09:54→21:33)
[2022-06-30] MEDS: Magnesium Chloride 64 MG Delay Rel.Tablet 128 MG PO ×2 (09:54→21:33)
[2022-06-30] MEDS: Insulin Lispro 100 UNIT/ML INSULN.PEN SC ×3 (09:56→21:33)
[2022-06-30 10:50] LABS: Bedside Glucose 165 mg/dL (74-106)
[2022-06-30] MEDS: Ursodiol 250 MG Tablet PO ×2 (11:56→21:33)
[2022-06-30] MEDS: Lactulose 20 GM/30 ML UDC 40 GM PO ×3 (11:56→21:32)
[2022-06-30] MEDS: Insulin Glargine-YFGN 100 UNIT/ML Pen 10 UNIT SC (11:57)
[2022-06-30] MEDS: rifAXIMin 550 MG Tablet PO ×2 (11:57→21:33)
[2022-06-30] MEDS: Ferrous Sulfate 325 MG Tablet PO (11:57)
[2022-06-30] MEDS: Insulin Lispro 100 UNIT/ML INSULN.PEN 8 UNIT SC (12:01)
[2022-06-30 12:30] LABS: Bedside Glucose 195 mg/dL (74-106)
--- NOTE | 2022-06-30 14:02 | PN.HOSP_ITS ---
Subjective Subjective Patient seen and examined. was by her bedside she still complains of difficulty breathing though she was on room air. She had no other complaints and review of systems otherwise negative. Objective Data Objective Data Vital Signs: Vital Signs Temp Pulse Resp BP Pulse Ox O2 Del Method 98.4 F 68 18 197/84 H 96 Room Air 06/30/22 07:42 06/30/22 11:05 06/30/22 07:42 06/30/22 07:42 06/30/22 07:42 06/30/22 07:52 Oxygen Delivery Method Room Air Weight: 208 lb 8 oz Body Mass Index (BMI) 30.7 Intake & Output: Intake and Output for Last 24 Hours 06/28/22 06/29/22 06/30/22 23:59 23:59 23:59 Intake Total 282 / 282 Balance 282 / 282 Lab / Micro Data Result Diagrams: 06/29/22 15:10 06/29/22 15:10 Labs: Laboratory Results - last 24 hr 06/29/22 15:10: WBC 3.0 L, RBC 2.50 L, Hgb 8.0 L, Hct 23.9 L, MCV 95.6, MCH 32.0, MCHC 33.5, RDW Std Deviation 59.5 H, RDW Coeff of Valentina 17.2 H, Plt Count 66 L, MPV 11.3, Immature Gran % (Auto) 0.300, Neut % (Auto) 69.3, Lymph % (Auto) 16.4 L, [place] % (Auto) 8.0, Eos % (Auto) 4.3, Baso % (Auto) 1.7 H, Absolute Neuts (auto) 2.1, Absolute Lymphs (auto) 0.49 L, Nucleated RBC % 0, Differential Comment SEE COMMENT, Diff Path Review May mitali, Platelet Estimate MOD DEC, RBC Morphology N CHROM, Hypochromasia 1+, Anisocytosis 1+, Macrocytosis 1+, O valocytes RARE 06/29/22 15:10: PT 15.2 H, INR 1.2 06/29/22 15:10: Sodium 138, Potassium 4.2, Chloride 111 H, Carbon Dioxide 21.0, Anion Gap 6, BUN 52 H, Creatinine 2.26 H, Estim Creat Clear Calc 30.09, Est GFR (MDRD) Af Amer 29 L, Est GFR (MDRD) Non-Af 24 L, BUN/Creatinine Ratio 23.0 H, Glucose 240 H, Calcium 8.1 L, Total Bilirubin 1.00, AST 41 H, ALT 22, Alkaline Phosphatase 180 H, Troponin I High Sens 16, Total Protein 6.8, Albumin 2.6 L, Globulin 4.2, Albumin/Globulin Ratio 0.6 L 06/29/22 15:10: B-Natriuretic Peptide 410.6 H 06/29/22 15:10: Phosphorus 3.9, Magnesium 2.5 06/30/22 00:11: POC Glucose 150 H 06/30/22 08:00: POC Glucose 165 H 06/30/22 11:52: POC Glucose 195 H Micro: Microbiology 06/29/22 14:40 Nasal Secretion SARS-CoV-2 & FLU Antigen (Rapid) - Final Radiography Diagnostic Testing: Radiology Impression Chest X-Ray 06/29/22 15:45 IMPRESSION: Right pleural effusion, cannot exclude associated right basilar atelectasis and/or pneumonia. Electronically Signed: Denia Nguyen MD at 15:56 EDT , Chest CTA 06/29/22 17:32 IMPRESSION: No evidence of acute pulmonary emboli to the segmental level. Acute mild compression deformity of T8. Multiple segmental areas of collapse in the right lung due to large pleural effusion.. Subtle scattered groundglass and tiny nodular opacities in the left lung may represent infection and/or edema. Cirrhotic liver with evidence of portal hypertension including massive splenomegaly and a transjugular intrahepatic portosystemic shunt. Electronically Signed: Joey Boyce MD at 19:59 EDT , Physical Exam Const alert, oriented x3 and no apparent distress HEENT head/scalp atraumatic, moist oral mucous membranes and oropharynx normal Head and Scalp: normocephalic Eyes PERRL, EOMs intact bilaterally and conjunctivae normal Neck no lymphadenopathy and supple Resp Resp Narrative: markedly diminished breath sounds in right mid and lower lung cadena, no crackles. Cardio regular rate, regular rhythm, S1 normal heart sound, S2 normal heart sound and no murmurs GI GI Narrative: Mildly distended abdomen. No tenderness on palpation. Positive fluid thrill. 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 * Patient is therefore awaiting transfer to [facility] for evaluation for new tubes or revision of the current tubes that she has. * Currently on IV Lasix 40 twice daily. * Breathing treatments bronchodilators. Titrate oxygen as needed to maintain saturation above 90%. * * #Autoimmune hepatitis with cirrhosis: On lactulose and Xifaxan. Also on ursodiol #JULIANNE on CKD stage IIIb: * Creatinine is 2.26 with baseline of around 1.8. * Likely due to cirrhosis and ascites and probable hepatorenal syndrome * Cannot be aggressive with IV fluids due to worsening ascites which will worsen the hepatic hydrothorax. #Pancytopenia: Likely due to cirrhosis #Type 2 diabetes mellitus: On Lantus 10 units daily. Insulin sliding scale. Accu-Cheks CADENCE S. #History of bipolar disorder: On Latuda DVT prophylaxis: SCDs. Disposition: awaiting transfer to [facility] Charges/Coding Visit Charges Inpatient E&M: 29671 Subs Hosp L3
[2022-06-30] MEDS: Ascorbic Acid 500 MG Tablet PO (16:46)
[2022-06-30] MEDS: Ondansetron ODT 4 MG Tablet 8 MG PO (16:53)
[2022-06-30 17:31] LABS: Bedside Glucose 128 mg/dL (74-106)
[2022-06-30] MEDS: cloNIDine HCl 0.2 MG Tablet PO (18:08)
--- NOTE | 2022-06-30 19:34 | CASEMGMT ---
Readmission note: Pt with multiple readmissions for complications related to liver cirrhosis. Pt states she is taking her medications as prescribed and attended her follow-up appointment since the previous admission. Pt states she has continued to receive SN, PT/OT and SW services from [facility] prior to this admission. Pt states she is agreeable to these beign continued but states they planned to discontinue services next week. Pt states she is awaiting transfer to [facility] for further evaluation of her liver disease. Will continue to monitor and assist as needs identified. Jocelin Robbins RN CM
--- NOTE | 2022-06-30 22:34 | NURSING ---
report given to Sneha MORRISON from
--- NOTE | 2022-06-30 22:38 | NURSING ---
notified James Nichole (pts sister) about transfer to [facility]
[2022-06-30 23:15] LABS: Bedside Glucose 173 mg/dL (74-106)
[2022-07-01 02:13] VITALS: O2SAT 89
[2022-07-01 02:18] VITALS: BP 158/71; PULSE 61; RESP 16; TEMP 37; O2SAT 95
[2022-07-01 02:53] VITALS: PULSE 58
--- NOTE | 2022-07-01 03:14 | NURSING ---
report given to transport, home meds sent with pt
--- NOTE | 2022-07-01 15:42 | DS.PCM_ITS ---
Providers Date of Admission: 06/29/22 Date of Discharge: 07/01/22 Primary Care Physician: Dr. 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 * Patient is therefore awaiting transfer to [facility] for evaluation for new tubes or revision of the current tubes that she has. * Currently on IV Lasix 40 twice daily. * Breathing treatments bronchodilators. Titrate oxygen as needed to maintain saturation above 90%. * * #Autoimmune hepatitis with cirrhosis: On lactulose and Xifaxan. Also on ursodiol #JULIANNE on CKD stage IIIb: * Creatinine is 2.26 with baseline of around 1.8. * Likely due to cirrhosis and ascites and probable hepatorenal syndrome * Cannot be aggressive with IV fluids due to worsening ascites which will worsen the hepatic hydrothorax. #Pancytopenia: Likely due to cirrhosis #Type 2 diabetes mellitus: On Lantus 10 units daily. Insulin sliding scale. Accu-Cheks ACH S. #History of bipolar disorder: On Latuda DVT prophylaxis: SCDs. Disposition: awaiting transfer to [facility] Medications at Discharge Home Medications magnesium oxide 400 mg PO BID supplement 03/14/17 rifaximin 550 mg tablet (Xifaxan) 550 mg PO BID IBS 11/04/17 pantoprazole 40 mg tablet,delayed release 40 mg PO DAILY GERD 03/20/21 sertraline 50 mg tablet 50 mg PO DAILY DEPRESSION 03/20/21 sucralfate 1 gram tablet (Carafate) 1 g PO DAILY STOMACH 03/20/21 ursodiol 300 mg capsule 300 mg PO BID LIVER 04/25/21 carbamazepine 100 mg tablet,extended release,12 hr 100 mg PO BID seizures 04/29/21 zinc 50 mg tablet 50 mg PO DAILY SUPPLEMENT 09/18/21 carvedilol 3.125 mg tablet 6.25 mg PO BID HEART 03/23/22 insulin degludec 100 unit/mL (3 mL) subcutaneous pen (Tresiba FlexTouch U-100 insulin) 10 unit subcut DAILY DM 04/16/22 lurasidone 40 mg tablet 40 mg PO DAILY MOOD 04/16/22 torsemide 20 mg tablet 10 mg PO DAILY diuretic 04/16/22 amlodipine 2.5 mg tablet 2.5 mg PO DAILY BP 05/14/22 ergocalciferol (vitamin D2) 1,250 mcg (50,000 unit) capsule (Vitamin D2) 1,250 unit PO MOTH SUPPLMENT 05/14/22 insulin lispro 100 unit/mL subcutaneous pen (Humalog KwikPen (U-100) Insulin) 8 unit subcut TIDCM diabetes 05/14/22 levothyroxine 75 mcg tablet 75 mcg PO DAILY THYROID 05/14/22 ondansetron 4 mg disintegrating tablet 8 mg PO Q8H PRN Nausea And Vomiting 05/14/22 pregabalin 25 mg capsule 25 mg PO BID PAIN 05/14/22 lactulose 20 gram/30 mL oral solution 40 g PO TID liver failure 06/11/22 ascorbic acid (vitamin C) 500 mg tablet 500 mg PO BID #60 tabs 06/16/22 ferrous sulfate 325 mg (65 mg iron) tablet,delayed release 325 mg PO QODAY #30 tabs 06/16/22 levofloxacin 500 mg tablet 500 mg PO DAILY #5 tabs 06/16/22 Hospital Course Operations None Procedures None Summary of Care Provided Minutes Spent on Discharge: 40 Hospital Course: Patient is a 51 y/o female with a PMH as outlined who was admitted via the ED on 06/29/2022 with a complaint of shortness of breath which had been going on for 2 weeks prior to admission. She had recently been admitted in May 2022 for right lower lobe pneumonia for E coli UTI and was treated with IV ceftriaxone and azithromycin and discharged home on PO levaquin. Shortly after discharge, she started having shortness of breath and so came back to the ED. CTA chest done showed no evidence of PE but showed a large right pleural effusion with multiple segmental areas of collapse in the right lung. Of note she also had a chest x- ray which showed large right pleural effusion. CTA chest showed cirrhotic liver with evidence of portal hypertension including massive splenomegaly and TIPS. Patient had been told that her TIPS was not functioning well. This was discussed with adult parole officer who thought that patient needed revision of TIPS or new TIPS to treat right pleural effusion and ascites. Patient therefore needed to be transferred to [facility] for evaluation for TIPS revision or new TIPS. She was admitted as there was no bed at [facility]. Patient got a bed at [facility] and was transferred to [facility] on 07/01/2022. Patient was seen and examined prior to transfer. Physical Exam Const alert, oriented x3 and no apparent distress General Appearance: cooperative, comfortable and well kempt Orientation / Consciousness: awake Exam Limitations: no limitations HEENT normocephalic, head/scalp atraumatic, hearing grossly normal bilaterally, moist oral mucous membranes and oropharynx normal Mouth: oral and palatal mucosa normal Eyes PERRL, EOMs intact bilaterally and conjunctivae normal Neck no lymphadenopathy and supple Resp Resp Narrative: markedly diminished breath sounds in right mid and lower lung cadena, no crackles. Cardio regular rate, regular rhythm, S1 normal heart sound, S2 normal heart sound and no murmurs GI normal to inspection, nondistended, normoactive bowel sounds, soft to palpation and non-tender GI Narrative: Mildly distended abdomen with ascites. No tenderness on palpation. Positive fluid thrill. Extremity normal to inspection, full ROM and no clubbing, cyanosis or edema Extremity Narrative: 1+ bipedal pitting edema Skin no rashes or lesions noted Neuro oriented x3, CN's II-XII intact bilaterally, moves all extremities and no focal motor deficits Sensorium / Orientation: awake and alert Motor Exam: strength 5/5 throughout Psych affect normal Weight / BMI Weight Weight: 208 lb 8 oz Body Mass Index (BMI) 30.7 ABG / Lab / Microbiology Data Result Diagrams: 06/29/22 15:10 06/29/22 15:10 Laboratory: Laboratory Results - last 24 hr 06/30/22 16:42: POC Glucose 128 H 06/30/22 21:25: POC Glucose 173 H Microbiology: Microbiology 06/29/22 14:40 Nasal Secretion SARS-CoV-2 & FLU Antigen (Rapid) - Final Meaningful Use Info Meaningful Use Diagnoses (Choose all that apply): None applicable Discharge Plan Admission Admit Date/Time: 06/29/22 21:08 Primary Reason for Your Visit: right pleural effusion due to malfunctioning TIPS Attending Provider: Maribel Barrera Primary Care Provider: Janay Canchola Consulting Providers: Mando Alfonso ; Patel Arboleda ; Mouna Rios NP ; Terry Parry Discharge Orders/Prescriptions Prescriptions: No Action magnesium oxide 400 MG tablet 400 mg PO BID Label Comments: PER PHARMACY NOT COVERED BY INSURANCE THROUGH [employer]. PHARMACY UNSURE IF SHE IS GETTING OTC Xifaxan 550 MG tablet 550 mg PO BID sucralfate [Carafate] 1 gram Tablet 1 g PO DAILY pantoprazole 40 mg Tablet,Delayed Release (Dr/Ec) 40 mg PO DAILY sertraline 50 mg Tablet 50 mg PO DAILY ursodiol 300 mg capsule 300 mg PO BID Label Comments: . carbamazepine 100 mg Tablet Extended Release 12 Hr 100 mg PO BID zinc 50 mg Tablet 50 mg PO DAILY Label Comments: PER PHARMACY NOT COVERED BY INSURANCE THROUGH [employer]. PHARMACY UNSURE IF SHE IS GETTING OTC carvedilol 3.125 mg tablet 6.25 mg PO BID torsemide 20 mg Tablet 10 mg PO DAILY Hold Instructions: Hold for 3 days then resume torsemide 20 mg daily lurasidone 40 mg Tablet 40 mg PO DAILY Tresiba FlexTouch U-100 100 unit/mL (3 mL) Insulin Pen 10 unit SUBCUT DAILY amlodipine 2.5 mg Tablet 2.5 mg PO DAILY ergocalciferol (vitamin D2) [Vitamin D2] 1,250 mcg (50,000 unit) capsule 1,250 unit PO MOTH levothyroxine 75 mcg tablet 75 mcg PO DAILY ondansetron 4 mg tablet,disintegrating 8 mg PO Q8H PRN (Reason: Nausea And Vomiting) insulin lispro [Humalog KwikPen Insulin] 100 unit/mL insulin pen 8 unit subcut TIDCM Label Comments: +SLIDING SCALE UP TO 40 UNITS DAILY. pregabalin 25 mg capsule 25 mg PO BID lactulose 20 gram/30 mL solution 40 g PO TID levofloxacin 500 mg tablet 500 mg PO DAILY Qty: 5 0RF ascorbic acid (vitamin C) 500 mg tablet 500 mg PO BID Qty: 60 2RF ferrous sulfate 325 mg (65 mg iron) tablet,delayed release (DR/EC) 325 mg PO QODAY Qty: 30 1RF Referrals / Follow Up: Janay Canchola MD [Primary Care Provider] - Disposition Disposition (needs filled in before D/C Order can be placed): Acute Care Hospital Charges/Coding Visit Charges Inpatient E&M: 76626 Disch Hosp
[2022-07-03 06:57] LABS: Pathologist Review Reviewed
== END 2022-07-01 03:14 | disposition short-term general hospital (02) | DRG 186 ==
LOC: ED 21:24 → PCU 22:19
PROVIDERS: Admitting Provider Internal Medicine; Emergency Provider Emergency Medicine; PCP Internal Medicine; Visit Provider Student in an Organized Health Care Education/Training Program
DX: J90 Pleural effusion, not elsewhere classified (principal); K76.7 Hepatorenal syndrome; D61.818 Other pancytopenia; K76.6 Portal hypertension; J94.8 Other specified pleural conditions; R18.8 Other ascites; F25.9 Schizoaffective disorder, unspecified; D63.8 Anemia in other chronic diseases classified elsewhere; K74.60 Unspecified cirrhosis of liver; Z79.4 Long term (current) use of insulin; N18.32 Chronic kidney disease, stage 3b; E11.22 Type 2 diabetes mellitus with diabetic chronic kidney disease; F31.9 Bipolar disorder, unspecified; E11.42 Type 2 diabetes mellitus with diabetic polyneuropathy; I12.9 Hypertensive chronic kidney disease with stage 1 through stage 4 chronic kidney disease, or unspecified chronic kidney disease; E06.3 Autoimmune thyroiditis; R09.02 Hypoxemia; Z79.899 Other long term (current) drug therapy; Z99.81 Dependence on supplemental oxygen; Z79.890 Hormone replacement therapy; Z87.01 Personal history of pneumonia (recurrent); Z87.440 Personal history of urinary (tract) infections
CPT/HCPCS: 71046; 71275; 80053; 82962; 83735; 83880; 84100; 84484; 85025; 85610; 87428; 93005; 94640; 97162; 97165; 99285; Q9967; A4216; J1940

== ENCOUNTER 2022-07-28 17:23 | Emergency (ER) | payer MEDICARE, MEDICAID, SELFPAY ==
[2022-07-28 17:24] VITALS: BP 213/94; PULSE 86; RESP 16; TEMP 36.2; O2SAT 98; BMI 30.2
[2022-07-28 17:43] VITALS: O2SAT 95
--- NOTE | 2022-07-28 18:00 | EKG12_ITS ---
Test Reason : SOB Blood Pressure : / mmHG Vent. Rate : 079 BPM Atrial Rate : 079 BPM P-R Int : 154 ms QRS Dur : 110 ms QT Int : 418 ms P-R-T Axes : 009 -41 083 degrees QTc Int : 479 ms Normal sinus rhythm Left axis deviation Incomplete left bundle branch block Abnormal ECG Confirmed by DEDE ZAMBRANO, ROSA ([id number]), senior technical editor NORA MENDES ([id number]) on 07/30/2022 11:17:32 AM Referred By: PL Confirmed By:ROSA AGUAYO MD
--- NOTE | 2022-07-28 18:00 | RAD_ITS ---
STUDY: X-RAY CHEST REASON FOR EXAM: Female, 51 years old. sob TECHNIQUE: Single AP portable view of the chest. COMPARISON: 06/29/2022 FINDINGS: The lungs are clear and expanded. No change in the large right pleural effusion with right lower lobe atelectasis. Normal size heart. Normal mediastinum and sonny. Normal visualized pulmonary arteries. Normal visualized aortic arch and descending thoracic aorta. Normal visualized thoracic spine. Normal visualized ribs, clavicles, and shoulders. There is no demonstrated abnormality of the visualized soft tissue structures of the upper abdomen. RAD/Chest 1 View (Portable) IMPRESSION: No change in the large right pleural effusion with right lower lobe atelectasis. Electronically Signed: Vishal Shrestha MD at 18:32 EDT ,
--- NOTE | 2022-07-28 18:01 | ED.VIS.DYS ---
HPI History of Present Illness Chief Complaint: Shortness of Breath Narrative Narrative: Is a complex patient presents with shortness of breath. Patient has a history of autoimmune hepatitis with a TIPS procedure in the past. She had another TIPS procedure revision this year that has failed. She is currently working through the transplant list. She was here about a month ago with dyspnea. This occurred a bit after she had pneumonia. She was transferred up to [facility]. They drained 3.2 L from her right lung. She states she went home and she was good for about 2 days. But then she slowly just got a little bit more short of breath ever since she has been home. She saw her primary physician yesterday and an x-ray was ordered that showed an effusion. They could not rule out a pneumonia on this x-ray. However, the patient is not coughing. Her saturations were around 89 to 92% at home on her home saturation. She is not having fevers chills or sweats. She has had pneumonia before and she does not feel at all like she has pneumonia at this time. She is not having chest pain. She does states she feels more winded and its worse with activity. It is consistent with her prior effusion. I asked her if [facility] had a long-term plan for her. She states that they took the fluid off once. They did not have a specific plan for ongoing management of this other than getting her set with liver transplant somewhere in the future. [facility] Medical History Acute kidney injury superimposed on chronic kidney disease Acute on chronic renal insufficiency Anemia Autoimmune hepatitis Bacteremia due to methicillin resistant Staphylococcus epidermidis Bipolar disorder CHI (closed head injury) Chronic pain Chronic renal insufficiency, stage III (moderate) Cirrhosis of liver Debility Depression Diabetes Diabetes mellitus Diabetes mellitus, type 2 Encephalopathy acute Essential hypertension Reilly's thyroiditis Hepatic encephalopathy Hepatitis Hypertension Hypothyroidism Kidney disease MRSA bacteremia Myocardial infarct Non-smoker On home oxygen therapy Pancreatitis Pancytopenia Pancytopenia Peripheral neuropathy Right lower lobe pneumonia Schizoaffective disorder Severe sepsis Splenomegaly Stage 3b chronic kidney disease (CKD) Weakness Home Medications magnesium oxide 400 mg PO BID supplement 03/14/17 [History Last Taken 06/14/22] rifaximin 550 mg tablet (Xifaxan) 550 mg PO BID IBS 11/04/17 [History Last Taken 06/14/22] pantoprazole 40 mg tablet,delayed release 40 mg PO DAILY GERD 03/20/21 [History Last Taken 06/14/22] sertraline 50 mg tablet 50 mg PO DAILY DEPRESSION 03/20/21 [History Last Taken 06/14/22] sucralfate 1 gram tablet (Carafate) 1 g PO DAILY STOMACH 03/20/21 [History Last Taken 06/14/22] ursodiol 300 mg capsule 300 mg PO BID LIVER 04/25/21 [History Last Taken 06/14/22] carbamazepine 100 mg tablet,extended release,12 hr 100 mg PO BID seizures 04/29/21 [History Last Taken 06/14/22] zinc 50 mg tablet 50 mg PO DAILY SUPPLEMENT 09/18/21 [History Last Taken 06/14/22] carvedilol 3.125 mg tablet 6.25 mg PO BID HEART 03/23/22 [History Last Taken 06/14/22] insulin degludec 100 unit/mL (3 mL) subcutaneous pen (Tresiba FlexTouch U-100 insulin) 10 unit subcut DAILY DM 04/16/22 [History Last Taken 06/14/22] lurasidone 40 mg tablet 40 mg PO DAILY MOOD 04/16/22 [History Last Taken 06/14/22] torsemide 20 mg tablet 10 mg PO DAILY diuretic 04/16/22 [History Last Taken 06/14/22] amlodipine 2.5 mg tablet 2.5 mg PO DAILY BP 05/14/22 [History Last Taken 06/14/22] ergocalciferol (vitamin D2) 1,250 mcg (50,000 unit) capsule (Vitamin D2) 1,250 unit PO MOTH SUPPLMENT 05/14/22 [History Last Taken 06/14/22] insulin lispro 100 unit/mL subcutaneous pen (Humalog KwikPen (U-100) Insulin) 8 unit subcut TIDCM diabetes 05/14/22 [History Last Taken 06/14/22] levothyroxine 75 mcg tablet 75 mcg PO DAILY THYROID 05/14/22 [History Last Taken 06/14/22] ondansetron 4 mg disintegrating tablet 8 mg PO Q8H PRN Nausea And Vomiting 05/14/22 [History Last Taken 06/13/22] lactulose 20 gram/30 mL oral solution 40 g PO TID liver failure 06/11/22 [History Last Taken 06/14/22] ascorbic acid (vitamin C) 500 mg tablet 500 mg PO BID #60 tabs 06/16/22 [Rx Last Taken Unknown] ferrous sulfate 325 mg (65 mg iron) tablet,delayed release 325 mg PO QODAY #30 tabs 06/16/22 [Rx Last Taken Unknown] levofloxacin 500 mg tablet 500 mg PO DAILY #5 tabs 06/16/22 [Rx Last Taken Unknown] Allergy/AdvReac Type Severity Reaction Status Date / Time adhesive Allergy Rash Verified 07/28/22 17:23 escitalopram oxalate Allergy blindness Verified 07/28/22 17:23 [From Lexapro] Fish Containing Products Allergy Other Verified 07/28/22 17:23 gabapentin [From Neurontin] Allergy Alan Verified 07/28/22 17:23 Jez's Syndrome lamotrigine [From Lamictal] Allergy Blindness Verified 07/28/22 17:23 topiramate [From Topamax] Allergy Other Verified 07/28/22 17:23 sour cream AdvReac Severe Anaphylaxis Uncoded 07/28/22 17:23 Preservatives AdvReac Intermediate passed Uncoded 07/28/22 17:23 out, lungs deflated Family History Father CVA (cerebral vascular accident) Myocardial infarction Heart disease CAD (coronary artery disease) Grandmother CHF (congestive heart failure) Sister Hypertension Mother Heart disease Surgical History H/O: hysterectomy History of abdominal paracentesis (10/2019) History of appendectomy History of cholecystectomy S/P TIPS (transjugular intrahepatic portosystemic shunt) Social History household members: significant other housing: house Smoking Status: Never smoker alcohol intake: never details: Unknown substance use type: does not use ROS ROS ED Constitutional Constitutional ED: Denies chills, fever(s), sweats or weight loss Eyes Eyes: Denies change in vision ENT ENT ED: Denies rhinorrhea or sore throat Cardiovascular Cardiovascular: Denies chest pain, palpitations or racing heartbeat Respiratory/Chest Respiratory/Chest: Reports dyspnea and dyspnea on exertion; Denies cough Gastrointestinal Gastrointestinal: Reports nausea; Denies abdominal pain or vomiting Genitourinary Genitourinary ED: Denies hematuria Musculoskeletal Musculoskeletal: Denies myalgias Integumentary Denies abscess Neurologic Neurologic: Denies headache(s), paresthesias or weakness Endocrine Endocrinology: Denies polydipsia or polyuria Hematologic/Lymphatic Hematologic/Lymphatic: Denies lymphadenopathy Allergic/Immunologic Allergic/Immunologic ED: Denies urticaria EXAM Physical Exam Const Vital Signs: 07/28/22 17:24 07/28/22 17:43 07/28/22 19:49 Temperature 97.1 F L Temperature Source Temporal Pulse Rate 86 91 Respiratory Rate 16 18 Respiratory Effort Short of Breath Respiratory Depth Shallow Respiratory Pattern Normal Blood Pressure 213/94 H 146/72 H Blood Pressure Mean 133 96 Pulse Ox 98 99 Oxygen Delivery Method Room Air Room Air Nasal Cannula Oxygen Flow Rate (L/min) 2 Positive well nourished and well developed Constitutional Narrative: Patient is talking on the phone as I walk in. She actually looks much better than when I have seen her before. She does not look sick or toxic today. General Appearance ED: well developed and NAD HEENT Reports moist mucous membranes Eyes General Eye ED: Yes scleral icterus Neck no meningeal signs and no JVD Resp Resp Narrative: Mild increased respiratory effort. But she can carry on a normal conversation. Her saturations are normal here sitting in bed. She has notably decreased breath sounds on the right. It is also dull to percussion at least senior living up on the right. Auscultation: diminished lung sounds Cardio regular rate and regular rhythm GI non-tender GI Narrative: Abdomen is mildly distended. She states that is relatively normal for her. It is not tight. It is not at all tender. Back/Spine no CVA tenderness and normal to inspection Neuro oriented x3 Psych mental status grossly normal Psych Narrative: Patient is awake alert and appropriate. She has had significant encephalopathy before but she is actually very alert now. Skin no wounds MDM MDM MDM Narrative Medical decision making narrative: Patient CBC shows anemia but this is really her baseline. There is no report of any bleeding black or bloody stools. Electrolytes show elevated creatinine but this is better than her recent levels. This is an improvement. Glucose is slightly up at 188. Liver function tests do show a slight bump in her bilirubin. Her INR is normal however though BNP is minimally elevated. Troponin is negative. Patient's x-ray does show right-sided effusion similar to before. This patient does not have fever or white count or symptoms of pneumonia. She states she does not feel sick at all. She just has some background dyspnea. She feels good when she is on her oxygen but not as good off. But she is normally or supposed to be on 2 to 3 L of oxygen. I discussed options with her. We talked about trying to come in the hospital here being transferred up to [place] which she was last time. She would prefer to go home, talk to her primary doctor and schedule outpatient thoracentesis. I think this is a reasonable option. Her labs look good. She looks good and comfortable. I have seen her when she is sick and she does not look sick today. She is also not hypoxic on room air and she is even better on her oxygen. She has oxygen at home. I think this can be managed as an outpatient. This is going to be a recurrent ongoing problem for her and she may need recurrent thoracentesis until they can either improve her TIPS procedure or possible transplant. We did discuss reasons to return. Lab Data Attestation: I reviewed the patient's lab results. Labs: Laboratory Results - last 24 hr 07/28/22 07/28/22 07/28/22 18:10 18:10 18:10 WBC 3.4 L RBC 2.41 L Hgb 7.7 L Hct 22.7 L MCV 94.2 MCH 32.0 MCHC 33.9 RDW Std Deviation 54.7 H RDW Coeff of Valentina 16.8 H Plt Count 59 L MPV 11.6 Immature Gran % (Auto) 0.300 Neut % (Auto) 71.9 H Lymph % (Auto) 15.2 L [place] % (Auto) 8.4 Eos % (Auto) 3.0 Baso % (Auto) 1.2 H Absolute Neuts (auto) 2.4 Absolute Lymphs (auto) 0.51 L Nucleated RBC % 0 Differential Comment SEE COMMENT Diff Path Review May foll Platelet Estimate MOD DEC Anisocytosis RARE Macrocytosis RARE Sodium 141 Potassium 3.7 Chloride 113 H Carbon Dioxide 20.0 L Anion Gap 8 BUN 42 H Creatinine 1.84 H Estim Creat Clear Calc 36.95 Est GFR (MDRD) Af Amer 37 L Est GFR (MDRD) Non-Af 30 L BUN/Creatinine Ratio 22.8 H Glucose 188 H Calcium 8.4 L Total Bilirubin 2.80 H AST 53 H ALT 29 Alkaline Phosphatase 139 H Troponin I High Sens 41 B-Natriuretic Peptide 123.0 H Total Protein 6.4 Albumin 2.4 L Globulin 4.0 Albumin/Globulin Ratio 0.6 L Radiography Diagnostic Testing: Clinical Impression(s) from Imaging Studies Chest X-Ray 07/28/22 18:00 IMPRESSION: No change in the large right pleural effusion with right lower lobe atelectasis. Electronically Signed: Vishal Shrestha MD at 18:32 EDT , Discharge Plan Triage Chief Complaint: Shortness of Breath ED Provider: Alex Lizarraga Dx/Rx/DC Orders Clinical Impression: Pleural effusion, right Instructions: ED Pleural Effusion Prescriptions: No Action magnesium oxide 400 MG tablet 400 mg PO BID Label Comments: PER PHARMACY NOT COVERED BY INSURANCE THROUGH [employer]. PHARMACY UNSURE IF SHE IS GETTING OTC Xifaxan 550 MG tablet 550 mg PO BID sucralfate [Carafate] 1 gram Tablet 1 g PO DAILY pantoprazole 40 mg Tablet,Delayed Release (Dr/Ec) 40 mg PO DAILY sertraline 50 mg Tablet 50 mg PO DAILY ursodiol 300 mg capsule 300 mg PO BID Label Comments: . carbamazepine 100 mg Tablet Extended Release 12 Hr 100 mg PO BID zinc 50 mg Tablet 50 mg PO DAILY Label Comments: PER PHARMACY NOT COVERED BY INSURANCE THROUGH [employer]. PHARMACY UNSURE IF SHE IS GETTING OTC carvedilol 3.125 mg tablet 6.25 mg PO BID torsemide 20 mg Tablet 10 mg PO DAILY Hold Instructions: Hold for 3 days then resume torsemide 20 mg daily lurasidone 40 mg Tablet 40 mg PO DAILY Tresiba FlexTouch U-100 100 unit/mL (3 mL) Insulin Pen 10 unit SUBCUT DAILY amlodipine 2.5 mg Tablet 2.5 mg PO DAILY ergocalciferol (vitamin D2) [Vitamin D2] 1,250 mcg (50,000 unit) capsule 1,250 unit PO MOTH levothyroxine 75 mcg tablet 75 mcg PO DAILY ondansetron 4 mg tablet,disintegrating 8 mg PO Q8H PRN (Reason: Nausea And Vomiting) insulin lispro [Humalog KwikPen Insulin] 100 unit/mL insulin pen 8 unit subcut TIDCM Label Comments: +SLIDING SCALE UP TO 40 UNITS DAILY. lactulose 20 gram/30 mL solution 40 g PO TID levofloxacin 500 mg tablet 500 mg PO DAILY Qty: 5 0RF ascorbic acid (vitamin C) 500 mg tablet 500 mg PO BID Qty: 60 2RF ferrous sulfate 325 mg (65 mg iron) tablet,delayed release (DR/EC) 325 mg PO QODAY Qty: 30 1RF Primary Care Provider: Janay Canchola Referrals: Janay Canchola MD [Primary Care Provider] - As soon as possible Disposition Disposition: Home, Self Care
[2022-07-28 18:32] LABS: Absolute Lymphocyte Count 0.51 X10^3/uL (0.83-4.51); Absolute Neutrophil Count 2.4 X10^3/uL (2.0-7.7); Basophil# 0.04 X10^3/uL; Basophil% 1.2 % (0-1); Hematocrit 22.7 % (37-47); Hemoglobin 7.7 g/dL (12.0-15.0); Lymphocyte # 0.51 X10^3/ul (0.83-4.51); Lymphocyte % 15.2 % (19-41); Mean Corp Hgb Conc 33.9 g/dL (32-36); Mean Corpuscular Volume 94.2 fL (81-99); Mean Platelet Vol. 11.6 fl (6.2-12.0); Monocyte# 0.28 X10^3/uL; Monocyte% 8.4 % (0-10); NRBC Flagged by Analyzer 0 % (0-5); Neutrophil # 2.41 X10^3/uL (2.7-7.7); Neutrophil % 71.9 % (47-70); POSITIVE COUNT YES; POSITIVE DIFFERENTIAL YES; Platelet Count 59 K/mm3 (150-450); RBC Distribution Width CV 16.8 % (11.6-14.6); RBC Distribution Width SD 54.7 fl (35.1-43.9); Red Blood Count 2.41 M/mm3 (4.2-5.4); White Blood Count 3.4 K/mm3 (4.4-11.0)
[2022-07-28 18:46] LABS: ALB/GLOB Ratio 0.6 RATIO (0.9-2.4); AST(SGOT) 53 U/L (15-37); Alanine Aminotransfer ALT/SGPT 29 U/L (13-56); Albumin, Serum 2.4 g/dL (3.2-5.0); Alkaline Phosphatase 139 U/L (45-117); Anion Gap 8 (5-15); BUN 42 mg/dL (7-18); BUN/Creat Ratio 22.8 RATIO (10-20); Calcium,Total 8.4 mg/dL (8.5-10.1); Chloride 113 mmol/L (98-107); Creatinine, Serum 1.84 mg/dL (0.55-1.02); EST Glomerular Filtration Rate 30 mL/min (>60); Est Glom Filt Rate - Afr Amer 37 mL/min (>60); Estimated Creatinine Clearance 36.95 ml/min; Glucose 188 mg/dL (74-106); Potassium 3.7 mmol/L (3.5-5.1); Protein, Total 6.4 g/dL (6.4-8.2); Sodium Level 141 mmol/L (136-145); Troponin-I HS 41 pg/mL (3.0-54.0)
[2022-07-28 19:13] LABS: Differential Indicated SCAN CRITERIA MET
[2022-07-28 19:15] LABS: Anisocytosis RARE; Macrocytosis RARE; Platelet Estimate MOD DEC (ADEQ)
[2022-07-28 19:49] VITALS: BP 146/72; PULSE 91; RESP 18; O2SAT 99
[2022-07-30 13:41] LABS: Pathologist Review Reviewed
== END 2022-07-28 20:51 | disposition home or self-care (01) ==
PROVIDERS: Emergency Provider Emergency Medicine; PCP Internal Medicine; Visit Provider Emergency Medicine
DX: J90 Pleural effusion, not elsewhere classified (principal); N18.32 Chronic kidney disease, stage 3b; Z99.81 Dependence on supplemental oxygen
CPT/HCPCS: 71045; 80053; 83880; 84484; 85025; 93005; 99284; A4216

== ENCOUNTER 2022-09-14 12:52 | Emergency (ER) | payer MEDICARE, MEDICAID, SELFPAY ==
[2022-09-14 12:53] VITALS: BP 169/72; PULSE 70; RESP 16; TEMP 36.1; O2SAT 94; BMI 29.8
--- NOTE | 2022-09-14 13:07 | EX.ED.DYSGE1 ---
HPI History of Present Illness Chief Complaint: Nausea/Vomiting Informant: patient Onset/Context/Timing Onset: Yesterday Current Severity: Mild Maximum Severity: Moderate Narrative Narrative: Patient has a history of autoimmune hepatitis and cirrhosis, just recently approved for the liver transplant list. She states due to this she has chronic nausea. Nausea became worse yesterday and she had uncontrolled vomiting overnight. Her Zofran was not helping and she could not keep her Reglan down. She called her palliative nurse this morning who suggested she come to the emergency room. She denies significant abdominal pain. No fever or chills. Last bowel movement was last evening. [facility] Medical History Acute kidney injury superimposed on chronic kidney disease Acute on chronic renal insufficiency Anemia Autoimmune hepatitis Bacteremia due to methicillin resistant Staphylococcus epidermidis Bipolar disorder CHI (closed head injury) Chronic pain Chronic renal insufficiency, stage III (moderate) Cirrhosis of liver Debility Depression Diabetes Diabetes mellitus Diabetes mellitus, type 2 Encephalopathy acute Essential hypertension Reilly's thyroiditis Hepatic encephalopathy Hepatitis Hypertension Hypothyroidism Kidney disease MRSA bacteremia Myocardial infarct Non-smoker On home oxygen therapy Pancreatitis Pancytopenia Pancytopenia Peripheral neuropathy Right lower lobe pneumonia Schizoaffective disorder Severe sepsis Splenomegaly Stage 3b chronic kidney disease (CKD) Weakness Home Medications magnesium oxide 400 mg PO BID supplement 03/14/17 [History Last Taken 06/14/22] rifaximin 550 mg tablet (Xifaxan) 550 mg PO BID IBS 11/04/17 [History Last Taken 06/14/22] pantoprazole 40 mg tablet,delayed release 40 mg PO DAILY GERD 03/20/21 [History Last Taken 06/14/22] sertraline 50 mg tablet 50 mg PO DAILY DEPRESSION 03/20/21 [History Last Taken 06/14/22] sucralfate 1 gram tablet (Carafate) 1 g PO DAILY STOMACH 03/20/21 [History Last Taken 06/14/22] ursodiol 300 mg capsule 300 mg PO BID LIVER 04/25/21 [History Last Taken 06/14/22] carbamazepine 100 mg tablet,extended release,12 hr 100 mg PO BID seizures 04/29/21 [History Last Taken 06/14/22] zinc 50 mg tablet 50 mg PO DAILY SUPPLEMENT 09/18/21 [History Last Taken 06/14/22] carvedilol 3.125 mg tablet 6.25 mg PO BID HEART 03/23/22 [History Last Taken 06/14/22] insulin degludec 100 unit/mL (3 mL) subcutaneous pen (Tresiba FlexTouch U-100 insulin) 10 unit subcut DAILY DM 04/16/22 [History Last Taken 06/14/22] lurasidone 40 mg tablet 40 mg PO DAILY MOOD 04/16/22 [History Last Taken 06/14/22] torsemide 20 mg tablet 10 mg PO DAILY diuretic 04/16/22 [History Last Taken 06/14/22] amlodipine 2.5 mg tablet 2.5 mg PO DAILY BP 05/14/22 [History Last Taken 06/14/22] ergocalciferol (vitamin D2) 1,250 mcg (50,000 unit) capsule (Vitamin D2) 1,250 unit PO MOTH SUPPLMENT 05/14/22 [History Last Taken 06/14/22] insulin lispro 100 unit/mL subcutaneous pen (Humalog KwikPen (U-100) Insulin) 8 unit subcut TIDCM diabetes 05/14/22 [History Last Taken 06/14/22] levothyroxine 75 mcg tablet 75 mcg PO DAILY THYROID 05/14/22 [History Last Taken 06/14/22] ondansetron 4 mg disintegrating tablet 8 mg PO Q8H PRN Nausea And Vomiting 05/14/22 [History Last Taken 06/13/22] lactulose 20 gram/30 mL oral solution 40 g PO TID liver failure 06/11/22 [History Last Taken 06/14/22] ascorbic acid (vitamin C) 500 mg tablet 500 mg PO BID #60 tabs 06/16/22 [Rx Last Taken Unknown] ferrous sulfate 325 mg (65 mg iron) tablet,delayed release 325 mg PO QODAY #30 tabs 06/16/22 [Rx Last Taken Unknown] levofloxacin 500 mg tablet 500 mg PO DAILY #5 tabs 06/16/22 [Rx Last Taken Unknown] promethazine 25 mg rectal suppository 25 mg [place] Q8H PRN PRN nausea and vomiting #12 ea 09/14/22 [Rx Last Taken Unknown] Allergy/AdvReac Type Severity Reaction Status Date / Time adhesive Allergy Rash Verified 09/14/22 12:54 escitalopram oxalate Allergy blindness Verified 09/14/22 12:54 [From Lexapro] Fish Containing Products Allergy Other Verified 09/14/22 12:54 gabapentin [From Neurontin] Allergy Alan Verified 09/14/22 12:54 Jez's Syndrome lamotrigine [From Lamictal] Allergy Blindness Verified 09/14/22 12:54 topiramate [From Topamax] Allergy Other Verified 09/14/22 12:54 sour cream AdvReac Severe Anaphylaxis Uncoded 09/14/22 12:54 Preservatives AdvReac Intermediate passed Uncoded 09/14/22 12:54 out, lungs deflated Family History Father CVA (cerebral vascular accident) Myocardial infarction Heart disease CAD (coronary artery disease) Grandmother CHF (congestive heart failure) Sister Hypertension Mother Heart disease Surgical History H/O: hysterectomy History of abdominal paracentesis (10/2019) History of appendectomy History of cholecystectomy S/P TIPS (transjugular intrahepatic portosystemic shunt) Social History household members: significant other housing: house Smoking Status: Never smoker alcohol intake: never details: Unknown substance use type: does not use ROS ROS ED Constitutional Constitutional ED: Denies chills or fever(s) Eyes Eyes: Denies change in vision or discharge from eye(s) ENT ENT ED: Denies discharge from eye(s), rhinorrhea or sore throat Cardiovascular Cardiovascular: Denies chest pain or palpitations Respiratory/Chest Respiratory/Chest: Denies cough or dyspnea Gastrointestinal Gastrointestinal: Reports nausea and vomiting; Denies diarrhea Genitourinary Genitourinary ED: Denies dysuria Musculoskeletal Musculoskeletal: Denies back pain or extremity pain Integumentary Denies Abrasions or rash Neurologic Neurologic: Denies headache(s) or weakness Allergic/Immunologic Allergic/Immunologic ED: Denies lip swelling or urticaria EXAM Physical Exam Const Vital Signs: 09/14/22 12:53 Temperature 97 F L Temperature Source Temporal Pulse Rate 70 Respiratory Rate 16 Blood Pressure 169/72 H Blood Pressure Mean 104 Pulse Ox 94 Oxygen Delivery Method Room Air Positive well nourished and well developed General Appearance ED: well developed HEENT Reports normocephalic and head/scalp atraumatic Eyes PERRL and EOMs intact bilaterally Neck supple Chest Wall inspection of chest normal and palpation of chest normal Resp normal respiratory effort and clear to auscultation bilaterally Cardio regular rate and regular rhythm GI GI Narrative: Abdomen is slightly distended with hypoactive but present bowel sounds. No focal tenderness. Palpation: soft Extremity normal to inspection Neuro oriented x3 and no sensory deficits noted Sensorium / Orientation: alert Motor Exam: strength 5/5 throughout Psych mental status grossly normal Skin no rashes or lesions noted MDM MDM MDM Narrative Medical decision making narrative: Patient given IV fluids along with Reglan and a small dose of Benadryl. Lab work obtained. Lab Data Attestation: I reviewed the patient's lab results. Labs: Laboratory Results - last 24 hr 09/14/22 09/14/22 13:45 13:45 WBC 4.6 RBC 2.29 L Hgb 7.5 L Hct 21.9 L MCV 95.6 MCH 32.8 H MCHC 34.2 RDW Std Deviation 58.1 H RDW Coeff of Valentina 17.1 H Plt Count 103 L MPV 10.5 Immature Gran % (Auto) 0.400 Neut % (Auto) 71.8 H Lymph % (Auto) 15.4 L [place] % (Auto) 6.3 Eos % (Auto) 4.8 Baso % (Auto) 1.3 H Absolute Neuts (auto) 3.3 Absolute Lymphs (auto) 0.71 L Nucleated RBC % 0 Sodium 140 Potassium 4.0 Chloride 111 H Carbon Dioxide 23.0 Anion Gap 6 BUN 56 H Creatinine 2.20 H Estim Creat Clear Calc 30.91 Est GFR (MDRD) Af Amer 30 L Est GFR (MDRD) Non-Af 25 L BUN/Creatinine Ratio 25.5 H Glucose 162 H Calcium 7.8 L Total Bilirubin 1.10 H Direct Bilirubin 0.39 H AST 36 ALT 25 Alkaline Phosphatase 149 H Total Protein 5.9 L Albumin 1.9 L Globulin 4.0 Lipase 149 Treatment and Re-Evaluation Narrative: Lab work reveals anemia with a hemoglobin of 7.5, consistent with her prior values. Platelet count is actually improved when compared to prior. Chemistry studies reveal a BUN of 56 and creatinine 2.20, only slightly elevated above her baseline. Glucose is 162. Mild elevation in bilirubin levels and alk phos all consistent with her prior values. Lipase normal. Repeat evaluation nausea is improved. She has Compazine at home along with Zofran. I will write her Phenergan suppositories to have an option if she cannot keep her oral medications in. Return instructions provided. Discharge Plan Triage Chief Complaint: Nausea/Vomiting ED Provider: Adrienne Valdivia Dx/Rx/DC Orders Clinical Impression: Nausea & vomiting Instructions: ED Vomiting (Adult) Prescriptions: New promethazine 25 mg suppository 25 mg [place] Q8H PRN PRN (Reason: nausea and vomiting) Qty: 12 0RF No Action magnesium oxide 400 MG tablet 400 mg PO BID Label Comments: PER PHARMACY NOT COVERED BY INSURANCE THROUGH [employer]. PHARMACY UNSURE IF SHE IS GETTING OTC Xifaxan 550 MG tablet 550 mg PO BID sucralfate [Carafate] 1 gram Tablet 1 g PO DAILY pantoprazole 40 mg Tablet,Delayed Release (Dr/Ec) 40 mg PO DAILY sertraline 50 mg Tablet 50 mg PO DAILY ursodiol 300 mg capsule 300 mg PO BID Label Comments: . carbamazepine 100 mg Tablet Extended Release 12 Hr 100 mg PO BID zinc 50 mg Tablet 50 mg PO DAILY Label Comments: PER PHARMACY NOT COVERED BY INSURANCE THROUGH [employer]. PHARMACY UNSURE IF SHE IS GETTING OTC carvedilol 3.125 mg tablet 6.25 mg PO BID torsemide 20 mg Tablet 10 mg PO DAILY Hold Instructions: Hold for 3 days then resume torsemide 20 mg daily lurasidone 40 mg Tablet 40 mg PO DAILY Tresiba FlexTouch U-100 100 unit/mL (3 mL) Insulin Pen 10 unit SUBCUT DAILY amlodipine 2.5 mg Tablet 2.5 mg PO DAILY ergocalciferol (vitamin D2) [Vitamin D2] 1,250 mcg (50,000 unit) capsule 1,250 unit PO MOTH levothyroxine 75 mcg tablet 75 mcg PO DAILY ondansetron 4 mg tablet,disintegrating 8 mg PO Q8H PRN (Reason: Nausea And Vomiting) insulin lispro [Humalog KwikPen Insulin] 100 unit/mL insulin pen 8 unit subcut TIDCM Label Comments: +SLIDING SCALE UP TO 40 UNITS DAILY. lactulose 20 gram/30 mL solution 40 g PO TID levofloxacin 500 mg tablet 500 mg PO DAILY Qty: 5 0RF ascorbic acid (vitamin C) 500 mg tablet 500 mg PO BID Qty: 60 2RF ferrous sulfate 325 mg (65 mg iron) tablet,delayed release (DR/EC) 325 mg PO QODAY Qty: 30 1RF Primary Care Provider: Janay Canchola Referrals: Janay Canchola MD [Primary Care Provider] - 1 Week if not improving Disposition Disposition: Home, Self Care
[2022-09-14] MEDS: DiphenhydrAMINE 50 MG/ML Syringe 12.5 MG IV (13:46)
[2022-09-14] MEDS: Metoclopramide 10 MG/2 ML Vial IV (13:47)
[2022-09-14 13:55] LABS: Absolute Lymphocyte Count 0.71 X10^3/uL (0.83-4.51); Absolute Neutrophil Count 3.3 X10^3/uL (2.0-7.7); Basophil# 0.06 X10^3/uL; Basophil% 1.3 % (0-1); Eosinophil# 0.22 X10^3/uL; Eosinophils% 4.8 % (0-5); Hematocrit 21.9 % (37-47); Hemoglobin 7.5 g/dL (12.0-15.0); Lymphocyte # 0.71 X10^3/ul (0.83-4.51); Lymphocyte % 15.4 % (19-41); Mean Corp Hgb Conc 34.2 g/dL (32-36); Mean Corpuscular Hgb 32.8 pg (27.0-32.0); Mean Corpuscular Volume 95.6 fL (81-99); Mean Platelet Vol. 10.5 fl (6.2-12.0); Monocyte# 0.29 X10^3/uL; Monocyte% 6.3 % (0-10); NRBC Flagged by Analyzer 0 % (0-5); Neutrophil # 3.31 X10^3/uL (2.7-7.7); Neutrophil % 71.8 % (47-70); Platelet Count 103 K/mm3 (150-450); RBC Distribution Width CV 17.1 % (11.6-14.6); RBC Distribution Width SD 58.1 fl (35.1-43.9); Red Blood Count 2.29 M/mm3 (4.2-5.4); White Blood Count 4.6 K/mm3 (4.4-11.0)
[2022-09-14 14:16] LABS: AST(SGOT) 36 U/L (15-37); Alanine Aminotransfer ALT/SGPT 25 U/L (13-56); Albumin, Serum 1.9 g/dL (3.2-5.0); Alkaline Phosphatase 149 U/L (45-117); Anion Gap 6 (5-15); BUN 56 mg/dL (7-18); BUN/Creat Ratio 25.5 RATIO (10-20); Bilirubin, Direct 0.39 mg/dL (0.00-0.30); Calcium,Total 7.8 mg/dL (8.5-10.1); Chloride 111 mmol/L (98-107); EST Glomerular Filtration Rate 25 mL/min (>60); Est Glom Filt Rate - Afr Amer 30 mL/min (>60); Estimated Creatinine Clearance 30.91 ml/min; Glucose 162 mg/dL (74-106); Lipase 149 U/L (73-393); Protein, Total 5.9 g/dL (6.4-8.2); Sodium Level 140 mmol/L (136-145)
[2022-09-14 14:53] VITALS: RESP 16
[2022-09-14 15:07] VITALS: RESP 16
== END 2022-09-14 15:26 | disposition home or self-care (01) ==
PROVIDERS: Emergency Provider Emergency Medicine; PCP Internal Medicine; Visit Provider Emergency Medicine
DX: R11.2 Nausea with vomiting, unspecified (principal); N18.32 Chronic kidney disease, stage 3b; I25.2 Old myocardial infarction; Z99.81 Dependence on supplemental oxygen
CPT/HCPCS: 80048; 80076; 83690; 85025; 96361; 96374; 96375; 99283; J7040

== ENCOUNTER 2022-09-18 08:00 | Emergency (ER) | payer MEDICARE, MEDICAID, SELFPAY ==
[2022-09-18 08:01] VITALS: BP 203/79; PULSE 76; RESP 14; TEMP 36.4; O2SAT 97; BMI 31.0
--- NOTE | 2022-09-18 08:15 | EX.ED.DYSGE1 ---
HPI History of Present Illness Chief Complaint: Nausea/Vomiting Informant: patient Onset/Context/Timing Onset: Weeks Context: Gradual Onset Narrative Narrative: Patient returns to the ER with continued nausea and vomiting. She was seen in the emergency room on the for similar. She was written for Phenergan suppositories but states they were never delivered. The Compazine she has at home has not been helping her nausea. She has not been able to take her lactulose and is concerned that her ammonia levels are rising. She also noted increased abdominal girth and feels that she is retaining water. She denies fever or chills. Her last bowel movement was approximately week and a half ago. [facility] Medical History Acute on chronic renal insufficiency Anemia Autoimmune hepatitis Bacteremia due to methicillin resistant Staphylococcus epidermidis Bipolar disorder CHI (closed head injury) Chronic pain Chronic renal insufficiency, stage III (moderate) Cirrhosis of liver Debility Depression Diabetes mellitus, type 2 Encephalopathy acute Essential hypertension Reilly's thyroiditis Hepatic encephalopathy Hepatitis Hypothyroidism Kidney disease MRSA bacteremia Myocardial infarct Non-smoker On home oxygen therapy Pancreatitis Pancytopenia Peripheral neuropathy Right lower lobe pneumonia Schizoaffective disorder Severe sepsis Splenomegaly Stage 3b chronic kidney disease (CKD) Weakness Home Medications magnesium oxide 400 mg PO BID supplement 03/14/17 [History Last Taken 06/14/22] rifaximin 550 mg tablet (Xifaxan) 550 mg PO BID IBS 11/04/17 [History Last Taken 06/14/22] pantoprazole 40 mg tablet,delayed release 40 mg PO DAILY GERD 03/20/21 [History Last Taken 06/14/22] sertraline 50 mg tablet 50 mg PO DAILY DEPRESSION 03/20/21 [History Last Taken 06/14/22] sucralfate 1 gram tablet (Carafate) 1 g PO DAILY STOMACH 03/20/21 [History Last Taken 06/14/22] ursodiol 300 mg capsule 300 mg PO BID LIVER 04/25/21 [History Last Taken 06/14/22] carbamazepine 100 mg tablet,extended release,12 hr 100 mg PO BID seizures 04/29/21 [History Last Taken 06/14/22] zinc 50 mg tablet 50 mg PO DAILY SUPPLEMENT 09/18/21 [History Last Taken 06/14/22] carvedilol 3.125 mg tablet 6.25 mg PO BID HEART 03/23/22 [History Last Taken 06/14/22] insulin degludec 100 unit/mL (3 mL) subcutaneous pen (Tresiba FlexTouch U-100 insulin) 10 unit subcut DAILY DM 04/16/22 [History Last Taken 06/14/22] lurasidone 40 mg tablet 40 mg PO DAILY MOOD 04/16/22 [History Last Taken 06/14/22] torsemide 20 mg tablet 10 mg PO DAILY diuretic 04/16/22 [History Last Taken 06/14/22] amlodipine 2.5 mg tablet 2.5 mg PO DAILY BP 05/14/22 [History Last Taken 06/14/22] ergocalciferol (vitamin D2) 1,250 mcg (50,000 unit) capsule (Vitamin D2) 1,250 unit PO MOTH SUPPLMENT 05/14/22 [History Last Taken 06/14/22] insulin lispro 100 unit/mL subcutaneous pen (Humalog KwikPen (U-100) Insulin) 8 unit subcut TIDCM diabetes 05/14/22 [History Last Taken 06/14/22] levothyroxine 75 mcg tablet 75 mcg PO DAILY THYROID 05/14/22 [History Last Taken 06/14/22] ondansetron 4 mg disintegrating tablet 8 mg PO Q8H PRN Nausea And Vomiting 05/14/22 [History Last Taken 06/13/22] lactulose 20 gram/30 mL oral solution 40 g PO TID liver failure 06/11/22 [History Last Taken 06/14/22] ascorbic acid (vitamin C) 500 mg tablet 500 mg PO BID #60 tabs 06/16/22 [Rx Last Taken Unknown] ferrous sulfate 325 mg (65 mg iron) tablet,delayed release 325 mg PO QODAY #30 tabs 06/16/22 [Rx Last Taken Unknown] levofloxacin 500 mg tablet 500 mg PO DAILY #5 tabs 06/16/22 [Rx Last Taken Unknown] promethazine 25 mg rectal suppository 25 mg RI Q8H PRN PRN nausea and vomiting #12 ea 09/14/22 [Rx Last Taken Unknown] metoclopramide HCl 10 mg tablet (Reglan) 10 mg PO Q6H PRN nausea and vomiting #14 tabs 09/18/22 [Rx Last Taken Unknown] ondansetron 4 mg disintegrating tablet 4 mg PO Q8H PRN nausea and vomiting #10 tabs 09/18/22 [Rx Last Taken Unknown] Allergy/AdvReac Type Severity Reaction Status Date / Time adhesive Allergy Rash Verified 09/18/22 08:04 escitalopram oxalate Allergy blindness Verified 09/18/22 08:04 [From Lexapro] Fish Containing Products Allergy Other Verified 09/18/22 08:04 gabapentin [From Neurontin] Allergy Alan Verified 09/18/22 08:04 Jez's Syndrome lamotrigine [From Lamictal] Allergy Blindness Verified 09/18/22 08:04 topiramate [From Topamax] Allergy Other Verified 09/18/22 08:04 sour cream AdvReac Severe Anaphylaxis Uncoded 09/18/22 08:04 Preservatives AdvReac Intermediate passed Uncoded 09/18/22 08:04 out, lungs deflated Family History Father CVA (cerebral vascular accident) Myocardial infarction Heart disease CAD (coronary artery disease) Grandmother CHF (congestive heart failure) Sister Hypertension Mother Heart disease Surgical History H/O: hysterectomy History of abdominal paracentesis (10/2019) History of appendectomy History of cholecystectomy S/P TIPS (transjugular intrahepatic portosystemic shunt) Social History household members: significant other housing: house Smoking Status: Never smoker alcohol intake: never details: Unknown substance use type: does not use ROS ROS ED Constitutional Constitutional ED: Denies chills or fever(s) Eyes Eyes: Denies change in vision or discharge from eye(s) ENT ENT ED: Denies discharge from eye(s), rhinorrhea or sore throat Cardiovascular Cardiovascular: Denies chest pain or palpitations Respiratory/Chest Respiratory/Chest: Denies cough or dyspnea Gastrointestinal Gastrointestinal: Reports abdominal pain, constipation, nausea and vomiting; Denies diarrhea Genitourinary Genitourinary ED: Denies dysuria Musculoskeletal Musculoskeletal: Denies back pain or extremity pain Integumentary Denies Abrasions or rash Neurologic Neurologic: Denies headache(s) or weakness Psychiatric Psychiatric: Denies anxiety or depression Allergic/Immunologic Allergic/Immunologic ED: Denies lip swelling or urticaria EXAM Physical Exam Const Vital Signs: 09/18/22 08:01 09/18/22 10:56 09/18/22 09:00 Temperature 97.5 F L Temperature Source Temporal Pulse Rate 76 83 72 Respiratory Rate 14 20 H 13 Blood Pressure 203/79 H 182/77 H 196/86 H Blood Pressure Mean 120 112 122 Pulse Ox 97 96 97 Oxygen Delivery Method Room Air Room Air Room Air 09/18/22 12:01 Temperature Temperature Source Pulse Rate 68 Respiratory Rate 24 H Blood Pressure 155/67 H Blood Pressure Mean 96 Pulse Ox 98 Oxygen Delivery Method Room Air Positive well nourished and well developed General Appearance ED: well developed HEENT Reports normocephalic and head/scalp atraumatic Eyes PERRL and EOMs intact bilaterally Neck supple Chest Wall inspection of chest normal and palpation of chest normal Resp clear to auscultation bilaterally Resp Narrative: Mildly tachypneic. Cardio regular rate and regular rhythm GI GI Narrative: Abdomen soft with hypoactive bowel sounds. Mild distention noted. Palpation: soft Extremity normal to inspection Neuro oriented x3 and no sensory deficits noted Sensorium / Orientation: alert Motor Exam: strength 5/5 throughout Psych mental status grossly normal Skin no rashes or lesions noted MDM MDM MDM Narrative Medical decision making narrative: Patient is given Reglan, Benadryl, IV fluids. Lab work obtained. Lab Data Attestation: I reviewed the patient's lab results. Labs: Laboratory Results - last 24 hr 09/18/22 09/18/22 09/18/22 08:55 08:55 08:55 WBC 2.5 L RBC 2.17 L Hgb 7.4 L Hct 20.0 L MCV 92.2 MCH 34.1 H MCHC 37.0 H D RDW Std Deviation 52.3 H RDW Coeff of Valentina 15.9 H Plt Count 103 L MPV 10.1 Immature Gran % (Auto) 0.000 Neut % (Auto) 61.2 Lymph % (Auto) 20.6 [place] % (Auto) 7.9 Eos % (Auto) 7.9 H Baso % (Auto) 2.4 H Absolute Neuts (auto) 1.5 L Absolute Lymphs (auto) 0.52 L Nucleated RBC % 0 [address] Review May foll Smudge Cells A Sodium 140 Potassium 3.6 Chloride 112 H Carbon Dioxide 21.0 Anion Gap 7 BUN 47 H Creatinine 1.84 H Estim Creat Clear Calc 36.95 Est GFR (MDRD) Af Amer 37 L Est GFR (MDRD) Non-Af 30 L BUN/Creatinine Ratio 25.5 H Glucose 174 H Calcium 7.8 L Total Bilirubin 1.40 H Direct Bilirubin 0.48 H AST 47 H ALT 32 Alkaline Phosphatase 175 H Ammonia 74.0 H Total Protein 6.1 L Albumin 2.0 L Globulin 4.1 Lipase 127 EKG Initial EKG: Attestation: I personally reviewed and interpreted this EKG as follows: Interpretation: Sinus Rhythm (Sinus at 72 with no acute ischemia.) Treatment and Re-Evaluation Narrative: CBC reveals low white count at 2.5 and hemoglobin 7.4. This is similar to prior values. Platelet count is 103,000. Chemistry studies reveal normal potassium. BUN is 47 and creatinine is 1.84, consistent with her prior values. LFTs show mild elevation in bilirubin, AST, alk phos, again similar to prior values. Ammonia level is 74, again consistent with her prior values. She has been up as high as the 290s in the past when she was having acute encephalopathy. EKG reveals no ischemia. On repeat evaluation patient does report some improvement in her nausea. She is able to tolerate water as well as some crackers. She states that she feels that her nausea is better controlled with Reglan than the Compazine she has at home. I told her not to take the Compazine and I will write her for Reglan. I will also write her for some Zofran as she is currently out of that as well. I advised her to restart her normal medications and as she takes her lactulose I feel that any concerns for constipation that she has will be resolved. Abdomen is soft with good bowel sounds. Discharge Plan Triage Chief Complaint: Nausea/Vomiting ED Provider: Adrienne Valdivia Dx/Rx/DC Orders Clinical Impression: Nausea & vomiting Instructions: ED Vomiting (Adult) Prescriptions: New ondansetron 4 mg tablet,disintegrating 4 mg PO Q8H PRN (Reason: nausea and vomiting) Qty: 10 0RF metoclopramide HCl [Reglan] 10 mg tablet 10 mg PO Q6H PRN (Reason: nausea and vomiting) Qty: 14 0RF No Action magnesium oxide 400 MG tablet 400 mg PO BID Label Comments: PER PHARMACY NOT COVERED BY INSURANCE THROUGH [employer]. PHARMACY UNSURE IF SHE IS GETTING OTC Xifaxan 550 MG tablet 550 mg PO BID sucralfate [Carafate] 1 gram Tablet 1 g PO DAILY pantoprazole 40 mg Tablet,Delayed Release (Dr/Ec) 40 mg PO DAILY sertraline 50 mg Tablet 50 mg PO DAILY ursodiol 300 mg capsule 300 mg PO BID Label Comments: . carbamazepine 100 mg Tablet Extended Release 12 Hr 100 mg PO BID zinc 50 mg Tablet 50 mg PO DAILY Label Comments: PER PHARMACY NOT COVERED BY INSURANCE THROUGH [employer]. PHARMACY UNSURE IF SHE IS GETTING OTC carvedilol 3.125 mg tablet 6.25 mg PO BID torsemide 20 mg Tablet 10 mg PO DAILY Hold Instructions: Hold for 3 days then resume torsemide 20 mg daily lurasidone 40 mg Tablet 40 mg PO DAILY Tresiba FlexTouch U-100 100 unit/mL (3 mL) Insulin Pen 10 unit SUBCUT DAILY amlodipine 2.5 mg Tablet 2.5 mg PO DAILY ergocalciferol (vitamin D2) [Vitamin D2] 1,250 mcg (50,000 unit) capsule 1,250 unit PO MOTH levothyroxine 75 mcg tablet 75 mcg PO DAILY ondansetron 4 mg tablet,disintegrating 8 mg PO Q8H PRN (Reason: Nausea And Vomiting) insulin lispro [Humalog KwikPen Insulin] 100 unit/mL insulin pen 8 unit subcut TIDCM Label Comments: +SLIDING SCALE UP TO 40 UNITS DAILY. lactulose 20 gram/30 mL solution 40 g PO TID levofloxacin 500 mg tablet 500 mg PO DAILY Qty: 5 0RF ascorbic acid (vitamin C) 500 mg tablet 500 mg PO BID Qty: 60 2RF ferrous sulfate 325 mg (65 mg iron) tablet,delayed release (DR/EC) 325 mg PO QODAY Qty: 30 1RF promethazine 25 mg suppository 25 mg RI Q8H PRN PRN (Reason: nausea and vomiting) Qty: 12 0RF Primary Care Provider: Janay Canchola Referrals: Janay Canchola MD [Primary Care Provider] - Activity Restrictions/Additional Instructions: As discussed, please stop taking your Compazine/prochlorperazine. You can take Reglan instead. Please restart all your home meds, specifically your lactulose. Disposition Disposition: Home, Self Care
[2022-09-18 09:00] VITALS: BP 196/86; PULSE 72; RESP 13; O2SAT 97
[2022-09-18] MEDS: DiphenhydrAMINE 50 MG/ML Syringe 12.5 MG IV (09:00)
[2022-09-18] MEDS: Metoclopramide 10 MG/2 ML Vial 5 MG IV (09:00)
[2022-09-18 09:13] LABS: Absolute Lymphocyte Count 0.52 X10^3/uL (0.83-4.51); Absolute Neutrophil Count 1.5 X10^3/uL (2.0-7.7); Basophil# 0.06 X10^3/uL; Basophil% 2.4 % (0-1); Eosinophils% 7.9 % (0-5); Hemoglobin 7.4 g/dL (12.0-15.0); Lymphocyte # 0.52 X10^3/ul (0.83-4.51); Lymphocyte % 20.6 % (19-41); Mean Corpuscular Hgb 34.1 pg (27.0-32.0); Mean Corpuscular Volume 92.2 fL (81-99); Mean Platelet Vol. 10.1 fl (6.2-12.0); Monocyte% 7.9 % (0-10); NRBC Flagged by Analyzer 0 % (0-5); Neutrophil # 1.54 X10^3/uL (2.7-7.7); Neutrophil % 61.2 % (47-70); POSITIVE DIFFERENTIAL YES; Platelet Count 103 K/mm3 (150-450); RBC Distribution Width CV 15.9 % (11.6-14.6); RBC Distribution Width SD 52.3 fl (35.1-43.9); Red Blood Count 2.17 M/mm3 (4.2-5.4); White Blood Count 2.5 K/mm3 (4.4-11.0)
[2022-09-18 09:25] LABS: AST(SGOT) 47 U/L (15-37); Alanine Aminotransfer ALT/SGPT 32 U/L (13-56); Alkaline Phosphatase 175 U/L (45-117); Anion Gap 7 (5-15); BUN 47 mg/dL (7-18); BUN/Creat Ratio 25.5 RATIO (10-20); Bilirubin, Direct 0.48 mg/dL (0.00-0.30); Calcium,Total 7.8 mg/dL (8.5-10.1); Chloride 112 mmol/L (98-107); Creatinine, Serum 1.84 mg/dL (0.55-1.02); EST Glomerular Filtration Rate 30 mL/min (>60); Est Glom Filt Rate - Afr Amer 37 mL/min (>60); Estimated Creatinine Clearance 36.95 ml/min; Globulin 4.1 g/dL (2.2-4.2); Glucose 174 mg/dL (74-106); Lipase 127 U/L (73-393); Potassium 3.6 mmol/L (3.5-5.1); Protein, Total 6.1 g/dL (6.4-8.2); Sodium Level 140 mmol/L (136-145)
[2022-09-18 09:29] LABS: Differential Indicated SCAN CRITERIA MET
[2022-09-18 09:53] LABS: Smudge Cells A
[2022-09-18 10:56] VITALS: BP 182/77; PULSE 83; RESP 20; O2SAT 96
[2022-09-18] MEDS: Labetalol (Prefilled) 20 MG/4 ML 10 MG IV (10:58)
[2022-09-18 12:01] VITALS: BP 155/67; PULSE 68; RESP 24; O2SAT 98
[2022-09-18 13:15] VITALS: BP 131/69; PULSE 72; RESP 15; O2SAT 94
[2022-09-20 09:51] LABS: Pathologist Review Reviewed
== END 2022-09-18 13:16 | disposition home or self-care (01) ==
PROVIDERS: Emergency Provider Emergency Medicine; PCP Internal Medicine; Visit Provider Emergency Medicine
DX: R11.2 Nausea with vomiting, unspecified (principal); N18.32 Chronic kidney disease, stage 3b
CPT/HCPCS: 80048; 80076; 82140; 83690; 85025; 93005; 96374; 96375; 99284; A4216

== ENCOUNTER 2022-10-30 18:13 | Emergency (ER) | payer MEDICARE, MEDICAID, SELFPAY ==
[2022-10-30 18:14] VITALS: BP 137/59; PULSE 70; RESP 15; TEMP 36.8; O2SAT 99
--- NOTE | 2022-10-30 19:10 | EDS_ITS ---
HPI History of Present Illness Chief Complaint: Abn Labs Detail of Chief Complaint: Abnormal labs that were drawn today Informant: patient, EMS and SNF Narrative Narrative: Patient presents the emergency department complaint of abnormal labs that were drawn today. Patient tells me that her white blood cell count is low and EMS related the same. Patient also diagnosed with COVID 6 days ago. Patient has no complaints and just has a slight cough. Patient currently awaiting liver and kidney transplant. Patient is on dialysis and last dialysis was 2 days ago. [facility] Medical History Acute on chronic renal insufficiency Anemia Autoimmune hepatitis Bacteremia due to methicillin resistant Staphylococcus epidermidis Bipolar disorder CHI (closed head injury) Chronic pain Chronic renal insufficiency, stage III (moderate) Cirrhosis of liver Debility Depression Diabetes mellitus, type 2 Encephalopathy acute Essential hypertension Reilly's thyroiditis Hepatic encephalopathy Hepatitis Hypothyroidism Kidney disease MRSA bacteremia Myocardial infarct Non-smoker On home oxygen therapy Pancreatitis Pancytopenia Peripheral neuropathy Right lower lobe pneumonia Schizoaffective disorder Severe sepsis Splenomegaly Stage 3b chronic kidney disease (CKD) Weakness Home Medications magnesium oxide 400 mg PO BID supplement 03/14/17 [History Last Taken 06/14/22] rifaximin 550 mg tablet (Xifaxan) 550 mg PO BID IBS 11/04/17 [History Last Taken 06/14/22] pantoprazole 40 mg tablet,delayed release 40 mg PO DAILY GERD 03/20/21 [History Last Taken 06/14/22] sertraline 50 mg tablet 50 mg PO DAILY DEPRESSION 03/20/21 [History Last Taken 06/14/22] sucralfate 1 gram tablet (Carafate) 1 g PO DAILY STOMACH 03/20/21 [History Last Taken 06/14/22] ursodiol 300 mg capsule 300 mg PO BID LIVER 04/25/21 [History Last Taken 06/14/22] carbamazepine 100 mg tablet,extended release,12 hr 100 mg PO BID seizures 04/29/21 [History Last Taken 06/14/22] zinc 50 mg tablet 50 mg PO DAILY SUPPLEMENT 09/18/21 [History Last Taken 06/14/22] carvedilol 3.125 mg tablet 6.25 mg PO BID HEART 03/23/22 [History Last Taken 06/14/22] insulin degludec 100 unit/mL (3 mL) subcutaneous pen (Tresiba FlexTouch U-100 insulin) 10 unit subcut DAILY DM 04/16/22 [History Last Taken 06/14/22] lurasidone 40 mg tablet 40 mg PO DAILY MOOD 04/16/22 [History Last Taken 06/14/22] torsemide 20 mg tablet 10 mg PO DAILY diuretic 04/16/22 [History Last Taken 06/14/22] amlodipine 2.5 mg tablet 2.5 mg PO DAILY BP 05/14/22 [History Last Taken 06/14/22] ergocalciferol (vitamin D2) 1,250 mcg (50,000 unit) capsule (Vitamin D2) 1,250 unit PO MOTH SUPPLMENT 05/14/22 [History Last Taken 06/14/22] insulin lispro 100 unit/mL subcutaneous pen (Humalog KwikPen (U-100) Insulin) 7 unit subcut TIDCM diabetes 05/14/22 [History Last Taken 06/14/22] levothyroxine 75 mcg tablet 75 mcg PO DAILY THYROID 05/14/22 [History Last Taken 06/14/22] ondansetron 4 mg disintegrating tablet 8 mg PO Q8H PRN Nausea And Vomiting 05/14/22 [History Last Taken 06/13/22] lactulose 20 gram/30 mL oral solution 40 g PO TID liver failure 06/11/22 [History Last Taken 06/14/22] ascorbic acid (vitamin C) 500 mg tablet 500 mg PO BID #60 tabs 06/16/22 [Rx Last Taken Unknown] ferrous sulfate 325 mg (65 mg iron) tablet,delayed release 325 mg PO QODAY #30 tabs 06/16/22 [Rx Last Taken Unknown] levofloxacin 500 mg tablet 500 mg PO DAILY #5 tabs 06/16/22 [Rx Last Taken Unknown] promethazine 25 mg rectal suppository 25 mg [place] Q8H PRN PRN nausea and vomiting #12 ea 09/14/22 [Rx Last Taken Unknown] metoclopramide HCl 10 mg tablet (Reglan) 10 mg PO Q6H PRN nausea and vomiting #14 tabs 09/18/22 [Rx Last Taken Unknown] ondansetron 4 mg disintegrating tablet 4 mg PO Q8H PRN nausea and vomiting #10 tabs 09/18/22 [Rx Last Taken Unknown] Allergy/AdvReac Type Severity Reaction Status Date / Time adhesive Allergy Rash Verified 10/30/22 18:14 escitalopram oxalate Allergy blindness Verified 10/30/22 18:14 [From Lexapro] Fish Containing Products Allergy Other Verified 10/30/22 18:14 gabapentin [From Neurontin] Allergy Alan Verified 10/30/22 18:14 Jez's Syndrome lamotrigine [From Lamictal] Allergy Blindness Verified 10/30/22 18:14 topiramate [From Topamax] Allergy Other Verified 10/30/22 18:14 sour cream AdvReac Severe Anaphylaxis Uncoded 10/30/22 18:14 Preservatives AdvReac Intermediate passed Uncoded 10/30/22 18:14 out, lungs deflated Family History Father CVA (cerebral vascular accident) Myocardial infarction Heart disease CAD (coronary artery disease) Grandmother CHF (congestive heart failure) Sister Hypertension Mother Heart disease Surgical History H/O: hysterectomy History of abdominal paracentesis (10/2019) History of appendectomy History of cholecystectomy S/P TIPS (transjugular intrahepatic portosystemic shunt) Social History household members: significant other housing: house Smoking Status: Never smoker alcohol intake: never details: Unknown substance use type: does not use ROS ROS ED Review of Systems ROS Unobtainable: other Constitutional Constitutional ED: Reports lethargy; Denies chills, fever(s), sweats or weight loss Eyes Eyes: Denies blurry vision, change in vision or diplopia ENT ENT ED: Denies rhinorrhea or sore throat Cardiovascular Cardiovascular: Denies chest pain, orthopnea or racing heartbeat Respiratory/Chest Respiratory/Chest: Reports cough; Denies dyspnea, dyspnea on exertion, orthopnea or sputum Gastrointestinal Gastrointestinal: Denies abdominal pain, diarrhea, nausea or vomiting Genitourinary Genitourinary ED: Denies dysuria, hematuria or urinary frequency Musculoskeletal Musculoskeletal: Denies arthralgias, back pain, myalgias or neck pain Integumentary Denies abscess, Abrasions or rash Neurologic Neurologic: Denies headache(s) or weakness Psychiatric Psychiatric: Denies anxiety, depression or suicidal thoughts Endocrine Endocrinology: Denies polydipsia, polyphagia or polyuria Hematologic/Lymphatic Hematologic/Lymphatic: Denies easy bleeding, easy bruising or lymphadenopathy Allergic/Immunologic Allergic/Immunologic ED: Denies mouth swelling, tongue swelling or urticaria EXAM Physical Exam Const Vital Signs: 10/30/22 18:14 10/30/22 18:43 10/30/22 20:15 Temperature 98.2 F 97.7 F L Temperature Source Temporal Oral Pulse Rate 70 73 Respiratory Rate 15 22 H Respiratory Effort Normal Non-Labored Respiratory Pattern Normal Blood Pressure 137/59 H 150/61 H Blood Pressure Mean 85 90 Pulse Ox 99 97 Oxygen Delivery Method Room Air Room Air Positive well nourished and well developed General Appearance ED: well developed and NAD HEENT Reports TM's clear and moist mucous membranes normocephalic and atraumatic; Negative for trauma or tenderness Tympanic Membrane ED: Yes TM's clear Eyes PERRL and EOMs intact bilaterally General Eye ED: Negative for pale conjunctiva or scleral icterus Neck no lymphadenopathy, supple and no JVD General: Negative for tenderness Chest Wall inspection of chest normal and palpation of chest normal Chest Narrative: Patient has a dialysis catheter in the right chest. Chest: Negative for tenderness Resp normal respiratory effort and clear to auscultation bilaterally Effort and Inspection: Negative for respiratory distress or pain with movement Auscultation: Negative for rhonchi, wheezes or diminished lung sounds Cardio regular rate, regular rhythm, S1 normal heart sound, S2 normal heart sound and no murmurs Peripheral Pulses: pulses 2+ throughout GI normal to inspection, nondistended, normoactive bowel sounds, soft to palpation, non-tender, non-distended and no masses Back/Spine no CVA tenderness and no thoracic nor lumbar tenderness Extremity normal to inspection General Extremety ED: Negative for edema General Extremity: Negative for edema Neuro oriented x3, CN's II-XII intact bilaterally, no sensory deficits noted and gait normal Sensorium / Orientation: awake, alert, oriented to person, oriented to place and oriented to time Motor Exam: strength 5/5 throughout and strength abnormal Psych mental status grossly normal Skin no rashes or lesions noted and no wounds MDM MDM MDM Narrative Medical decision making narrative: Line established. Patient had a CBC with differential that showed a white count 2.7, hemoglobin 7.1, hematocrit of 21 and platelets of 125. Chemistries unremarkable. BUN was 34 and creatinine 2.87. Looking at patient's trend of WBC count she is at her baseline essentially and she currently has COVID. I do not feel she requires any type of intervention at this time. Patient will be discharged back to nursing facility. Patient is comfortable with plan. Patient has dialysis tomorrow. Lab Data Attestation: I reviewed the patient's lab results. Labs: Laboratory Results - last 24 hr 10/30/22 10/30/22 20:01 20:01 WBC 2.7 L RBC 2.25 L Hgb 7.1 L Hct 21.2 L MCV 94.2 MCH 31.6 MCHC 33.5 RDW Std Deviation 58.4 H RDW Coeff of Valentina 17.2 H Plt Count 125 L MPV 10.2 Immature Gran % (Auto) 0.400 Neut % (Auto) 57.1 Lymph % (Auto) 23.3 [place] % (Auto) 10.5 H Eos % (Auto) 6.8 H Baso % (Auto) 1.9 H Absolute Neuts (auto) 1.5 L Absolute Lymphs (auto) 0.62 L Nucleated RBC % 0 Sodium 139 Potassium 3.6 Chloride 101 Carbon Dioxide 35.0 H Anion Gap 3 L BUN 34 H Creatinine 2.87 H Estim Creat Clear Calc 0.00 Est GFR (MDRD) Af Amer 22 L Est GFR (MDRD) Non-Af 18 L BUN/Creatinine Ratio 11.8 Glucose 80 Calcium 8.3 L Discharge Plan Triage Chief Complaint: Abn Labs ED Provider: Jessica Gonzales Dx/Rx/DC Orders Clinical Impression: Leukopenia, COVID-19 Instructions: Caring for Someone Who Has COVID-19 Prescriptions: No Action magnesium oxide 400 MG tablet 400 mg PO BID Label Comments: PER PHARMACY NOT COVERED BY INSURANCE THROUGH [employer]. PHARMACY UNSURE IF SHE IS GETTING OTC Xifaxan 550 MG tablet 550 mg PO BID sucralfate [Carafate] 1 gram Tablet 1 g PO DAILY pantoprazole 40 mg Tablet,Delayed Release (Dr/Ec) 40 mg PO DAILY sertraline 50 mg Tablet 50 mg PO DAILY ursodiol 300 mg capsule 300 mg PO BID Label Comments: . carbamazepine 100 mg Tablet Extended Release 12 Hr 100 mg PO BID zinc 50 mg Tablet 50 mg PO DAILY Label Comments: PER PHARMACY NOT COVERED BY INSURANCE THROUGH [employer]. PHARMACY UNSURE IF SHE IS GETTING OTC carvedilol 3.125 mg tablet 6.25 mg PO BID torsemide 20 mg Tablet 10 mg PO DAILY Hold Instructions: Hold for 3 days then resume torsemide 20 mg daily lurasidone 40 mg Tablet 40 mg PO DAILY insulin degludec [Tresiba FlexTouch U-100] 100 unit/mL (3 mL) Insulin Pen 10 unit SUBCUT DAILY amlodipine 2.5 mg Tablet 2.5 mg PO DAILY ergocalciferol (vitamin D2) [Vitamin D2] 1,250 mcg (50,000 unit) capsule 1,250 unit PO MOTH levothyroxine 75 mcg tablet 75 mcg PO DAILY ondansetron 4 mg tablet,disintegrating 8 mg PO Q8H PRN (Reason: Nausea And Vomiting) insulin lispro [Humalog KwikPen Insulin] 100 unit/mL insulin pen 7 unit subcut TIDCM Label Comments: +SLIDING SCALE UP TO 40 UNITS DAILY. lactulose 20 gram/30 mL solution 40 g PO TID levofloxacin 500 mg tablet 500 mg PO DAILY Qty: 5 0RF ascorbic acid (vitamin C) 500 mg tablet 500 mg PO BID Qty: 60 2RF ferrous sulfate 325 mg (65 mg iron) tablet,delayed release (DR/EC) 325 mg PO QODAY Qty: 30 1RF promethazine 25 mg suppository 25 mg [place] Q8H PRN PRN (Reason: nausea and vomiting) Qty: 12 0RF ondansetron 4 mg tablet,disintegrating 4 mg PO Q8H PRN (Reason: nausea and vomiting) Qty: 10 0RF metoclopramide HCl [Reglan] 10 mg tablet 10 mg PO Q6H PRN (Reason: nausea and vomiting) Qty: 14 0RF Primary Care Provider: Danial Ring Referrals: Janay Canchola MD [Med Staff - [employer]] - 3-5 Days Disposition Disposition: Home, Self Care
[2022-10-30 20:07] LABS: Absolute Lymphocyte Count 0.62 X10^3/uL (0.83-4.51); Absolute Neutrophil Count 1.5 X10^3/uL (2.0-7.7); Basophil# 0.05 X10^3/uL; Basophil% 1.9 % (0-1); Eosinophil# 0.18 X10^3/uL; Eosinophils% 6.8 % (0-5); Hematocrit 21.2 % (37-47); Hemoglobin 7.1 g/dL (12.0-15.0); Lymphocyte # 0.62 X10^3/ul (0.83-4.51); Lymphocyte % 23.3 % (19-41); Mean Corp Hgb Conc 33.5 g/dL (32-36); Mean Corpuscular Hgb 31.6 pg (27.0-32.0); Mean Corpuscular Volume 94.2 fL (81-99); Mean Platelet Vol. 10.2 fl (6.2-12.0); Monocyte# 0.28 X10^3/uL; Monocyte% 10.5 % (0-10); NRBC Flagged by Analyzer 0 % (0-5); Neutrophil # 1.52 X10^3/uL (2.7-7.7); Neutrophil % 57.1 % (47-70); Platelet Count 125 K/mm3 (150-450); RBC Distribution Width CV 17.2 % (11.6-14.6); RBC Distribution Width SD 58.4 fl (35.1-43.9); Red Blood Count 2.25 M/mm3 (4.2-5.4); White Blood Count 2.7 K/mm3 (4.4-11.0)
[2022-10-30 20:15] VITALS: BP 150/61; PULSE 73; RESP 22; TEMP 36.5; O2SAT 97
[2022-10-30 20:24] LABS: Anion Gap 3 (5-15); BUN 34 mg/dL (7-18); BUN/Creat Ratio 11.8 RATIO (10-20); Calcium,Total 8.3 mg/dL (8.5-10.1); Chloride 101 mmol/L (98-107); Creatinine, Serum 2.87 mg/dL (0.55-1.02); EST Glomerular Filtration Rate 18 mL/min (>60); Est Glom Filt Rate - Afr Amer 22 mL/min (>60); Glucose 80 mg/dL (74-106); Potassium 3.6 mmol/L (3.5-5.1); Sodium Level 139 mmol/L (136-145)
[2022-10-30 22:00] VITALS: BP 145/78; PULSE 71; RESP 16; O2SAT 97
[2022-10-30] MEDS: Menthol/Lanolin/Calamine/Znox 113 GM Tube 1 APPLIC TOPICAL (23:57)
== END 2022-10-31 01:43 | disposition home or self-care (01) ==
PROVIDERS: Emergency Provider Emergency Medicine; PCP Family Medicine; Visit Provider Emergency Medicine
DX: D72.819 Decreased white blood cell count, unspecified (principal); E11.42 Type 2 diabetes mellitus with diabetic polyneuropathy; E11.22 Type 2 diabetes mellitus with diabetic chronic kidney disease; N18.32 Chronic kidney disease, stage 3b; I12.9 Hypertensive chronic kidney disease with stage 1 through stage 4 chronic kidney disease, or unspecified chronic kidney disease; U07.1 COVID-19; E03.9 Hypothyroidism, unspecified; Z99.81 Dependence on supplemental oxygen; Z79.899 Other long term (current) drug therapy
CPT/HCPCS: 80048; 85025; 99284

== ENCOUNTER 2022-11-02 12:38 | Emergency (ER) | payer MEDICARE, MEDICAID, SELFPAY ==
[2022-11-02 12:39] VITALS: BP 144/66; PULSE 69; RESP 24; TEMP 35.9; O2SAT 97; BMI 30.2
--- NOTE | 2022-11-02 14:30 | EDS_ITS ---
HPI History of Present Illness Chief Complaint: Wound Check Detail of Chief Complaint: Feeding tube dislodged in mouth Informant: patient Narrative Narrative: Patient presents the emergency department with a feeding tube that has become dislodged into her mouth. Patient states that it was placed about a month ago. Patient states that she is on the transplant list for liver and kidney transplant. She was at dialysis and coming out today when she felt something in the back of her throat and her feeding tube is curled up in her mouth. Patient also does eat through her mouth and apparently they have been having trouble with her tube feeds and that is been given her some diarrhea. Patient was diagnosed with COVID 9 days ago. [facility] Medical History Acute on chronic renal insufficiency Anemia Autoimmune hepatitis Bacteremia due to methicillin resistant Staphylococcus epidermidis Bipolar disorder CHI (closed head injury) Chronic pain Chronic renal insufficiency, stage III (moderate) Cirrhosis of liver Debility Depression Diabetes mellitus, type 2 Encephalopathy acute Essential hypertension Reilly's thyroiditis Hepatic encephalopathy Hepatitis Hypothyroidism Kidney disease MRSA bacteremia Myocardial infarct Non-smoker On home oxygen therapy Pancreatitis Pancytopenia Peripheral neuropathy Right lower lobe pneumonia Schizoaffective disorder Severe sepsis Splenomegaly Stage 3b chronic kidney disease (CKD) Weakness Home Medications magnesium oxide 400 mg PO BID supplement 03/14/17 [History Last Taken 06/14/22] rifaximin 550 mg tablet (Xifaxan) 550 mg PO BID IBS 11/04/17 [History Last Taken 06/14/22] pantoprazole 40 mg tablet,delayed release 40 mg PO DAILY GERD 03/20/21 [History Last Taken 06/14/22] sertraline 50 mg tablet 50 mg PO DAILY DEPRESSION 03/20/21 [History Last Taken 06/14/22] sucralfate 1 gram tablet (Carafate) 1 g PO DAILY STOMACH 03/20/21 [History Last Taken 06/14/22] ursodiol 300 mg capsule 300 mg PO BID LIVER 04/25/21 [History Last Taken 06/14/22] carbamazepine 100 mg tablet,extended release,12 hr 100 mg PO BID seizures 04/29/21 [History Last Taken 06/14/22] zinc 50 mg tablet 50 mg PO DAILY SUPPLEMENT 09/18/21 [History Last Taken 06/14/22] carvedilol 3.125 mg tablet 6.25 mg PO BID HEART 03/23/22 [History Last Taken 06/14/22] insulin degludec 100 unit/mL (3 mL) subcutaneous pen (Tresiba FlexTouch U-100 insulin) 10 unit subcut DAILY DM 04/16/22 [History Last Taken 06/14/22] lurasidone 40 mg tablet 40 mg PO DAILY MOOD 04/16/22 [History Last Taken 06/14/22] torsemide 20 mg tablet 10 mg PO DAILY diuretic 04/16/22 [History Last Taken 06/14/22] amlodipine 2.5 mg tablet 2.5 mg PO DAILY BP 05/14/22 [History Last Taken 06/14/22] ergocalciferol (vitamin D2) 1,250 mcg (50,000 unit) capsule (Vitamin D2) 1,250 unit PO MOTH SUPPLMENT 05/14/22 [History Last Taken 06/14/22] insulin lispro 100 unit/mL subcutaneous pen (Humalog KwikPen (U-100) Insulin) 7 unit subcut TIDCM diabetes 05/14/22 [History Last Taken 06/14/22] levothyroxine 75 mcg tablet 75 mcg PO DAILY THYROID 05/14/22 [History Last Taken 06/14/22] ondansetron 4 mg disintegrating tablet 8 mg PO Q8H PRN Nausea And Vomiting 05/14/22 [History Last Taken 06/13/22] lactulose 20 gram/30 mL oral solution 40 g PO TID liver failure 06/11/22 [History Last Taken 06/14/22] ascorbic acid (vitamin C) 500 mg tablet 500 mg PO BID #60 tabs 06/16/22 [Rx Last Taken Unknown] ferrous sulfate 325 mg (65 mg iron) tablet,delayed release 325 mg PO QODAY #30 tabs 06/16/22 [Rx Last Taken Unknown] levofloxacin 500 mg tablet 500 mg PO DAILY #5 tabs 06/16/22 [Rx Last Taken Unknown] promethazine 25 mg rectal suppository 25 mg NV Q8H PRN PRN nausea and vomiting #12 ea 09/14/22 [Rx Last Taken Unknown] metoclopramide HCl 10 mg tablet (Reglan) 10 mg PO Q6H PRN nausea and vomiting #14 tabs 09/18/22 [Rx Last Taken Unknown] ondansetron 4 mg disintegrating tablet 4 mg PO Q8H PRN nausea and vomiting #10 tabs 09/18/22 [Rx Last Taken Unknown] Allergy/AdvReac Type Severity Reaction Status Date / Time adhesive Allergy Rash Verified 11/02/22 12:39 escitalopram oxalate Allergy blindness Verified 11/02/22 12:39 [From Lexapro] Fish Containing Products Allergy Other Verified 11/02/22 12:39 gabapentin [From Neurontin] Allergy Alan Verified 11/02/22 12:39 Jez's Syndrome lamotrigine [From Lamictal] Allergy Blindness Verified 11/02/22 12:39 topiramate [From Topamax] Allergy Other Verified 11/02/22 12:39 sour cream AdvReac Severe Anaphylaxis Uncoded 11/02/22 12:39 Preservatives AdvReac Intermediate passed Uncoded 11/02/22 12:39 out, lungs deflated Family History Father CVA (cerebral vascular accident) Myocardial infarction Heart disease CAD (coronary artery disease) Grandmother CHF (congestive heart failure) Sister Hypertension Mother Heart disease Surgical History H/O: hysterectomy History of abdominal paracentesis (10/2019) History of appendectomy History of cholecystectomy S/P TIPS (transjugular intrahepatic portosystemic shunt) Social History household members: significant other housing: house Smoking Status: Never smoker alcohol intake: never details: Unknown substance use type: does not use ROS ROS ED ROS Narrative Feeding tube dislodgment Review of Systems ROS Unobtainable: other Constitutional Constitutional ED: Reports lethargy; Denies chills, fever(s), sweats or weight loss Eyes Eyes: Denies blurry vision, change in vision or diplopia ENT ENT ED: Denies rhinorrhea or sore throat Cardiovascular Cardiovascular: Denies chest pain, orthopnea or racing heartbeat Respiratory/Chest Respiratory/Chest: Denies cough, dyspnea, dyspnea on exertion, orthopnea or sputum Gastrointestinal Gastrointestinal: Denies abdominal pain, diarrhea, nausea or vomiting Genitourinary Genitourinary ED: Denies dysuria, hematuria or urinary frequency Musculoskeletal Musculoskeletal: Denies arthralgias, back pain, myalgias or neck pain Integumentary Denies abscess, Abrasions or rash Neurologic Neurologic: Denies headache(s) or weakness Psychiatric Psychiatric: Denies anxiety, depression or suicidal thoughts Endocrine Endocrinology: Denies polydipsia, polyphagia or polyuria Hematologic/Lymphatic Hematologic/Lymphatic: Denies easy bleeding, easy bruising or lymphadenopathy Allergic/Immunologic Allergic/Immunologic ED: Denies mouth swelling, tongue swelling or urticaria EXAM Physical Exam Const Vital Signs: 11/02/22 12:39 11/02/22 15:40 Temperature 96.7 F L Temperature Source Temporal Pulse Rate 69 Respiratory Rate 24 H Respiratory Effort Normal Respiratory Pattern Normal Blood Pressure 144/66 H Blood Pressure Mean 92 Pulse Ox 97 Oxygen Delivery Method Room Air Positive well nourished and well developed General Appearance ED: well developed and NAD HEENT Reports TM's clear and moist mucous membranes HEENT Narrative: Patient has her feeding tube that exits the left side of her nose. Patient is noted to have the feeding tube also curled up in her mouth. normocephalic and atraumatic; Negative for trauma or tenderness Tympanic Membrane ED: Yes TM's clear Eyes PERRL and EOMs intact bilaterally General Eye ED: Negative for pale conjunctiva or scleral icterus Neck no lymphadenopathy, supple and no JVD General: Negative for tenderness Chest Wall inspection of chest normal and palpation of chest normal Chest: Negative for tenderness Resp normal respiratory effort and clear to auscultation bilaterally Effort and Inspection: Negative for respiratory distress or pain with movement Auscultation: Negative for rhonchi, wheezes or diminished lung sounds Cardio regular rate, regular rhythm, S1 normal heart sound, S2 normal heart sound and no murmurs Peripheral Pulses: pulses 2+ throughout GI normal to inspection, nondistended, normoactive bowel sounds, soft to palpation, non-tender, non-distended and no masses Back/Spine no CVA tenderness and no thoracic nor lumbar tenderness Extremity normal to inspection General Extremety ED: Negative for edema General Extremity: Negative for edema Neuro oriented x3, CN's II-XII intact bilaterally, no sensory deficits noted and gait normal Sensorium / Orientation: awake, alert, oriented to person, oriented to place and oriented to time Motor Exam: strength 5/5 throughout and strength abnormal Psych mental status grossly normal Skin no rashes or lesions noted and no wounds MDM MDM MDM Narrative Medical decision making narrative: Patient had a chest x-ray and KUB obtained. Chest x-ray showed a right pleural effusion which is chronic for the patient. Patient also had a KUB that showed the tip of the feeding tube in the distal portion of the stomach and there was a TIPS catheter present. I had Dr. Garzon see the patient. He was able to release the Dobbhoff tube from the nasal clip and pulled the loops that were curled in the mouth through the nose until she was no longer gagging on the tube. A repeat KUB obtained showed the tube still being placed in the distal portion of the body of the stomach. At this point patient was advised to follow-up with her physicians at [facility] who placed the tube to see if they want to discontinue it or replace it potentially. I am told that the patient has not had to have the tube used for several days because she can tolerate the tube feeds while she was getting a lot of watery stools. She is able to eat and drink by mouth. Patient also will follow-up with her physicians to have a thoracentesis to remove the right-sided pleural fluid which she typically has done about once a week. Patient is not currently in any respiratory distress and I do not feel thoracentesis needs to be done emergently. Radiography Diagnostic Testing: Clinical Impression(s) from Imaging Studies Chest X-Ray 11/02/22 14:40 IMPRESSION: Large right pleural effusion with right basilar atelectasis and/or infiltration. Electronically Signed: Dash Shin MD at 15:02 EST , KUB X-Ray 11/02/22 14:40 IMPRESSION: The tip of the feeding tube is in the distal portion of the stomach. A TIPS catheter is seen. Right pleural effusion and elevation of the right hemidiaphragm. Electronically Signed: Dash Shin MD at 15:04 EST , KUB X-Ray 11/02/22 15:20 IMPRESSION: The tip of the feeding tube is in the distal portion of the body of the stomach. Electronically Signed: Dash Shin MD at 15:31 EST , Discharge Plan Triage Chief Complaint: Wound Check Other Complaint: Cough ED Provider: Jessica Gonzales Dx/Rx/DC Orders Clinical Impression: Pleural effusion, Complication of feeding tube Instructions: Feeding Tube, ED Pleural Effusion Prescriptions: No Action magnesium oxide 400 MG tablet 400 mg PO BID Label Comments: PER PHARMACY NOT COVERED BY INSURANCE THROUGH [employer]. PHARMACY UNSURE IF SHE IS GETTING OTC Xifaxan 550 MG tablet 550 mg PO BID sucralfate [Carafate] 1 gram Tablet 1 g PO DAILY pantoprazole 40 mg Tablet,Delayed Release (Dr/Ec) 40 mg PO DAILY sertraline 50 mg Tablet 50 mg PO DAILY ursodiol 300 mg capsule 300 mg PO BID Label Comments: . carbamazepine 100 mg Tablet Extended Release 12 Hr 100 mg PO BID zinc 50 mg Tablet 50 mg PO DAILY Label Comments: PER PHARMACY NOT COVERED BY INSURANCE THROUGH [employer]. PHARMACY UNSURE IF SHE IS GETTING OTC carvedilol 3.125 mg tablet 6.25 mg PO BID torsemide 20 mg Tablet 10 mg PO DAILY Hold Instructions: Hold for 3 days then resume torsemide 20 mg daily lurasidone 40 mg Tablet 40 mg PO DAILY insulin degludec [Tresiba FlexTouch U-100] 100 unit/mL (3 mL) Insulin Pen 10 unit SUBCUT DAILY amlodipine 2.5 mg Tablet 2.5 mg PO DAILY ergocalciferol (vitamin D2) [Vitamin D2] 1,250 mcg (50,000 unit) capsule 1,250 unit PO MOTH levothyroxine 75 mcg tablet 75 mcg PO DAILY ondansetron 4 mg tablet,disintegrating 8 mg PO Q8H PRN (Reason: Nausea And Vomiting) insulin lispro [Humalog KwikPen Insulin] 100 unit/mL insulin pen 7 unit subcut TIDCM Label Comments: +SLIDING SCALE UP TO 40 UNITS DAILY. lactulose 20 gram/30 mL solution 40 g PO TID levofloxacin 500 mg tablet 500 mg PO DAILY Qty: 5 0RF ascorbic acid (vitamin C) 500 mg tablet 500 mg PO BID Qty: 60 2RF ferrous sulfate 325 mg (65 mg iron) tablet,delayed release (DR/EC) 325 mg PO QODAY Qty: 30 1RF promethazine 25 mg suppository 25 mg NV Q8H PRN PRN (Reason: nausea and vomiting) Qty: 12 0RF ondansetron 4 mg tablet,disintegrating 4 mg PO Q8H PRN (Reason: nausea and vomiting) Qty: 10 0RF metoclopramide HCl [Reglan] 10 mg tablet 10 mg PO Q6H PRN (Reason: nausea and vomiting) Qty: 14 0RF Primary Care Provider: Danial Ring Referrals: Danial Ring MD [Primary Care Provider] - Activity Restrictions/Additional Instructions: Follow-up with your physicians at [facility] regarding your feeding tube for possible replacement or discontinuation. Follow-up with your physicians at [facility] for thoracentesis if you become increasingly short of breath. Disposition Disposition: Home, Self Care
--- NOTE | 2022-11-02 14:40 | RAD_ITS ---
STUDY: X-RAY CHEST REASON FOR EXAM: Female, 52 years old. fearing tube displaced/COVID + TECHNIQUE: Single AP portable view of the chest. COMPARISON: Comparison is made with prior study dated 10/27/2022. FINDINGS: A right-sided double lumen catheter seen with the tip in the right atrium. A feeding tube is seen with the tip below the left hemidiaphragm. A covered stent is seen in the medial right upper quadrant most likely from prior TIPS procedure. Large right pleural effusion with right basilar infiltration and/or atelectasis. Normal size heart. Normal mediastinum and sonny. Normal visualized pulmonary arteries. Normal visualized aortic arch and descending thoracic aorta. Normal visualized thoracic spine. Normal visualized ribs, clavicles, and shoulders. There is no demonstrated abnormality of the visualized soft tissue structures of the upper abdomen. RAD/Chest 1 View IMPRESSION: Large right pleural effusion with right basilar atelectasis and/or infiltration. Electronically Signed: Dash Shin MD at 15:02 EST ,
--- NOTE | 2022-11-02 14:40 | RAD_ITS ---
STUDY: X-RAY - ABDOMEN/PELVIS REASON FOR EXAM: Female, 52 years old. Feeding tube displacement TECHNIQUE: Single AP view of the abdomen / pelvis. COMPARISON: None. FINDINGS: Right pleural effusion. The tip of the feeding tube is in the distal portion of the stomach. A TIPS catheter is seen in the right upper quadrant. Surgical clips are seen in the right upper quadrant. Normal soft tissue structures. Normal visualized osseous structures. RAD/Abdomen Single View (Portable) IMPRESSION: The tip of the feeding tube is in the distal portion of the stomach. A TIPS catheter is seen. Right pleural effusion and elevation of the right hemidiaphragm. Electronically Signed: Dash Shin MD at 15:04 EST ,
--- NOTE | 2022-11-02 15:20 | RAD_ITS ---
STUDY: X-RAY - ABDOMEN/PELVIS REASON FOR EXAM: Female, 52 years old. Feeding tube repositioned TECHNIQUE: Single AP view of the abdomen / pelvis. COMPARISON: Comparison is made with prior study done earlier today. FINDINGS: The tip of the feeding tube is in the distal portion of the body of the stomach. RAD/Abdomen Single View (Portable) IMPRESSION: The tip of the feeding tube is in the distal portion of the body of the stomach. Electronically Signed: Dash Shin MD at 15:31 EST ,
--- NOTE | 2022-11-02 16:07 | ED.RN ---
report given to jonathon nurse
[2022-11-02 16:10] VITALS: O2SAT 99
--- NOTE | 2022-11-02 21:13 | PCM.OPRPT ---
Problems Associated Problem List Diagnoses (1) Complication of feeding tube: Report of Operation Date of Procedure: 11/02/22 Pre-Operative Diagnosis: Malplacement of feeding tube Post-Operative Diagnosis: Same Surgery/Procedure Performed:: Readjustment of feeding tube Description of Surgical Findings:: This a 52-year-old female who presented to the emergency department with her Dobbhoff feeding tube becoming dislodged in her mouth abdominal x-rays showed that the tube was in her stomach but in talking to her you could clearly see it was partially coiled in the back and front of her mouth. Patient is on the transplant list for liver and kidney and had this Dobbhoff feeding tube placed with a bridle bridge on her nose. Surgeon: Bob Garzon water engineer: None Type of Anesthesia: None Description of Procedure: I unclamped the bridle bridge from the Dobbhoff feeding tube I pulled it back so that it was just in the back of her throat and I could see this with her mouth open. I reattached the clamp without difficulty. Postoperative x-ray showed that the Dobbhoff feeding tube was still in the stomach. Patient was notified that she is going to have to get back to her transplant team to have the tube replaced back into its original position. At the present time it appears to be lying flat in the back of her throat and she is phonating without difficulty. Admit VTE Documentation VTE Present on Admission: No VTE Mechan Device Prophylaxis: None VTE Pharm Prophylaxis ordered?: No Reason prophylaxis not ordered:: Treatment Not Indicated
[2022-11-02 21:24] VITALS: PULSE 76; RESP 17; O2SAT 95
== END 2022-11-02 23:25 | disposition home or self-care (01) ==
PROVIDERS: Emergency Provider Emergency Medicine; PCP Family Medicine; Visit Provider Emergency Medicine
DX: J90 Pleural effusion, not elsewhere classified (principal); Z43.4 Encounter for attention to other artificial openings of digestive tract; N18.32 Chronic kidney disease, stage 3b; I25.2 Old myocardial infarction; Z99.81 Dependence on supplemental oxygen
CPT/HCPCS: 99285; 71045; 74018

== ENCOUNTER 2022-11-03 07:48 | Inpatient (IN) | payer MEDICARE, MEDICAID, SELFPAY ==
[2022-11-03] VITALS (20 sets, daily range): BP systolic 96–153; BP diastolic 42–75; PULSE 58–77; RESP 16–20; TEMP 36.6–36.9; O2SAT 73–100; BMI 26.0; BMI 24.3
[2022-11-03] MEDS: Morphine 4 MG/ML Syringe IV (09:22)
[2022-11-03 09:31] LABS: Absolute Neutrophil Count 1.4 X10^3/uL (2.0-7.7); Basophil# 0.04 X10^3/uL; Basophil% 1.7 % (0-1); Eosinophils% 4.1 % (0-5); Hematocrit 19.1 % (37-47); Lymphocyte % 20.7 % (19-41); Mean Corp Hgb Conc 31.4 g/dL (32-36); Mean Corpuscular Hgb 31.4 pg (27.0-32.0); Mean Platelet Vol. 10.3 fl (6.2-12.0); Monocyte# 0.35 X10^3/uL; Monocyte% 14.5 % (0-10); NRBC Flagged by Analyzer 0 % (0-5); Neutrophil # 1.41 X10^3/uL (2.7-7.7); Neutrophil % 58.6 % (47-70); POSITIVE COUNT YES; POSITIVE DIFFERENTIAL YES; Platelet Count 88 K/mm3 (150-450); RBC Distribution Width CV 17.3 % (11.6-14.6); Red Blood Count 1.91 M/mm3 (4.2-5.4); White Blood Count 2.4 K/mm3 (4.4-11.0)
[2022-11-03 09:40] LABS: Differential Indicated SCAN CRITERIA MET
[2022-11-03 09:42] LABS: Anion Gap 3 (5-15); BUN 19 mg/dL (7-18); Calcium,Total 7.7 mg/dL (8.5-10.1); Chloride 103 mmol/L (98-107); Creatinine, Serum 2.73 mg/dL (0.55-1.02); EST Glomerular Filtration Rate 19 mL/min (>60); Est Glom Filt Rate - Afr Amer 23 mL/min (>60); Estimated Creatinine Clearance 24.62 ml/min; Glucose 69 mg/dL (74-106); Potassium 3.5 mmol/L (3.5-5.1); Sodium Level 138 mmol/L (136-145)
--- NOTE | 2022-11-03 09:43 | RAD_ITS ---
EXAM: XR CHEST, 2 VIEWS CLINICAL INDICATION: cough, + COVID TECHNIQUE: Frontal and lateral views of the chest. This report was created using [employer] report generation technology. COMPARISON: 11/02/2022. FINDINGS: LUNGS AND PLEURAL SPACES: Large right subpulmonic fluid with complete atelectasis of the right middle lobe and right lower lobe. Partial atelectasis of the right upper lobe. Normal left lung. No pneumothorax. HEART: Unremarkable. Cardiac silhouette not enlarged. MEDIASTINUM: Central airways and mediastinal contour are unremarkable. BONES/JOINTS: Unremarkable. SOFT TISSUES: Unremarkable. TUBES, LINES AND DEVICES: Right IJ approach Chandra split catheter tips remain in the right atrial chamber. RAD/Chest PA and Lateral IMPRESSION: 1. Increase in large volume right pleural fluid with persistent compressive atelectasis of the right lower lobe, right middle lobe and partial atelectasis of the right upper lobe. 2. No significant interval change. 3. Interval removal of Dobbhoff feeding tube when compared to 11/02/2022. Electronically Signed: Cornel Fish MD at 9:59 EST ,
[2022-11-03 10:23] LABS: Differential Comment SCANNED
[2022-11-03 10:24] LABS: Platelet Estimate SLT DEC (ADEQ)
--- NOTE | 2022-11-03 11:08 | EX.ED.DYSGE1 ---
HPI History of Present Illness Chief Complaint: General Illness Informant: patient and SNF Narrative Narrative: Patient is a 52-year-old female with extensive medical history including end-stage renal disease on hemodialysis (had a full session yesterday), right pleural effusion, recent diagnosis of COVID-19, malnutrition with chronic NG tube in for tube feeds, hypothyroid, insulin-dependent diabetes mellitus, autoimmune hepatitis and chronic pain/neuropathy presenting for NG tube dysfunction as well as generalized malaise associated with COVID-19 infection. Patient was seen in the ER yesterday where she had her NG to (a Dobbhoff) repositioned. Apparently while waiting for transfer back patient pulled out her NG tube. Nursing staff is notified and [facility] physician wanted her to be brought in for replacement. In addition patient recently tested positive for COVID-19 and is just been feeling poorly. Patient denies any chest pain or difficulty breathing. Patient's MAR shows that she has order for oxygen as needed up to 2 L. [facility] Medical History Acute on chronic renal insufficiency Anemia Autoimmune hepatitis Bacteremia due to methicillin resistant Staphylococcus epidermidis Bipolar disorder CHI (closed head injury) Chronic pain Chronic renal insufficiency, stage III (moderate) Cirrhosis of liver Debility Depression Diabetes mellitus, type 2 Encephalopathy acute Essential hypertension Reilly's thyroiditis Hepatic encephalopathy Hepatitis Hypothyroidism Kidney disease MRSA bacteremia Myocardial infarct Non-smoker On home oxygen therapy Pancreatitis Pancytopenia Peripheral neuropathy Right lower lobe pneumonia Schizoaffective disorder Severe sepsis Splenomegaly Stage 3b chronic kidney disease (CKD) Weakness Home Medications magnesium oxide 400 mg PO BID supplement 03/14/17 [History Last Taken 06/14/22] rifaximin 550 mg tablet (Xifaxan) 550 mg PO BID IBS 11/04/17 [History Last Taken 06/14/22] pantoprazole 40 mg tablet,delayed release 40 mg PO DAILY GERD 03/20/21 [History Last Taken 06/14/22] sertraline 50 mg tablet 50 mg PO DAILY DEPRESSION 03/20/21 [History Last Taken 06/14/22] sucralfate 1 gram tablet (Carafate) 1 g PO DAILY STOMACH 03/20/21 [History Last Taken 06/14/22] ursodiol 300 mg capsule 300 mg PO BID LIVER 04/25/21 [History Last Taken 06/14/22] carbamazepine 100 mg tablet,extended release,12 hr 100 mg PO BID seizures 04/29/21 [History Last Taken 06/14/22] zinc 50 mg tablet 50 mg PO DAILY SUPPLEMENT 09/18/21 [History Last Taken 06/14/22] carvedilol 3.125 mg tablet 6.25 mg PO BID HEART 03/23/22 [History Last Taken 06/14/22] insulin degludec 100 unit/mL (3 mL) subcutaneous pen (Tresiba FlexTouch U-100 insulin) 10 unit subcut DAILY DM 04/16/22 [History Last Taken 06/14/22] lurasidone 40 mg tablet 40 mg PO DAILY MOOD 04/16/22 [History Last Taken 06/14/22] torsemide 20 mg tablet 10 mg PO DAILY diuretic 04/16/22 [History Last Taken 06/14/22] amlodipine 2.5 mg tablet 2.5 mg PO DAILY BP 05/14/22 [History Last Taken 06/14/22] ergocalciferol (vitamin D2) 1,250 mcg (50,000 unit) capsule (Vitamin D2) 1,250 unit PO MOTH SUPPLMENT 05/14/22 [History Last Taken 06/14/22] insulin lispro 100 unit/mL subcutaneous pen (Humalog KwikPen (U-100) Insulin) 7 unit subcut TIDCM diabetes 05/14/22 [History Last Taken 06/14/22] levothyroxine 75 mcg tablet 75 mcg PO DAILY THYROID 05/14/22 [History Last Taken 06/14/22] ondansetron 4 mg disintegrating tablet 8 mg PO Q8H PRN Nausea And Vomiting 05/14/22 [History Last Taken 06/13/22] lactulose 20 gram/30 mL oral solution 40 g PO TID liver failure 06/11/22 [History Last Taken 06/14/22] ascorbic acid (vitamin C) 500 mg tablet 500 mg PO BID #60 tabs 06/16/22 [Rx Last Taken Unknown] ferrous sulfate 325 mg (65 mg iron) tablet,delayed release 325 mg PO QODAY #30 tabs 06/16/22 [Rx Last Taken Unknown] levofloxacin 500 mg tablet 500 mg PO DAILY #5 tabs 06/16/22 [Rx Last Taken Unknown] promethazine 25 mg rectal suppository 25 mg [place] Q8H PRN PRN nausea and vomiting #12 ea 09/14/22 [Rx Last Taken Unknown] metoclopramide HCl 10 mg tablet (Reglan) 10 mg PO Q6H PRN nausea and vomiting #14 tabs 09/18/22 [Rx Last Taken Unknown] ondansetron 4 mg disintegrating tablet 4 mg PO Q8H PRN nausea and vomiting #10 tabs 09/18/22 [Rx Last Taken Unknown] Allergy/AdvReac Type Severity Reaction Status Date / Time adhesive Allergy Rash Verified 11/03/22 07:54 escitalopram oxalate Allergy blindness Verified 11/03/22 07:54 [From Lexapro] Fish Containing Products Allergy Other Verified 11/03/22 07:54 gabapentin [From Neurontin] Allergy Alan Verified 11/03/22 07:54 Jez's Syndrome lamotrigine [From Lamictal] Allergy Blindness Verified 11/03/22 07:54 topiramate [From Topamax] Allergy Other Verified 11/03/22 07:54 sour cream AdvReac Severe Anaphylaxis Uncoded 11/02/22 12:39 Preservatives AdvReac Intermediate passed Uncoded 11/02/22 12:39 out, lungs deflated Family History Father CVA (cerebral vascular accident) Myocardial infarction Heart disease CAD (coronary artery disease) Grandmother CHF (congestive heart failure) Sister Hypertension Mother Heart disease Surgical History H/O: hysterectomy History of abdominal paracentesis (10/2019) History of appendectomy History of cholecystectomy S/P TIPS (transjugular intrahepatic portosystemic shunt) Social History household members: significant other housing: house Smoking Status: Never smoker alcohol intake: never details: Unknown substance use type: does not use ROS ROS ED Constitutional Constitutional ED: Denies chills or fever(s) Eyes Eyes: Denies change in vision ENT ENT ED: Denies rhinorrhea or sore throat Cardiovascular Cardiovascular: Denies palpitations Respiratory/Chest Respiratory/Chest: Reports cough; Denies dyspnea Gastrointestinal Gastrointestinal: Reports nausea and vomiting; Denies abdominal pain Musculoskeletal Musculoskeletal: Reports myalgias; Denies arthralgias Integumentary Denies rash Neurologic Neurologic: Reports paresthesias and weakness; Denies headache(s) Psychiatric Psychiatric: Reports anxiety EXAM Physical Exam Const Vital Signs: 11/03/22 07:50 11/03/22 07:54 11/03/22 09:38 Temperature 98.3 F Temperature Source Temporal Pulse Rate 59 L 61 Respiratory Rate 18 Respiratory Pattern Normal Blood Pressure 101/48 L 96/42 L Blood Pressure Mean 65 60 Pulse Ox 93 90 Oxygen Delivery Method Room Air Nasal Cannula Oxygen Flow Rate (L/min) 2 11/03/22 10:42 11/03/22 10:50 Temperature Temperature Source Pulse Rate 61 Respiratory Rate 20 H Respiratory Pattern Blood Pressure 101/48 L Blood Pressure Mean 65 Pulse Ox 100 Oxygen Delivery Method Nasal Cannula Nasal Cannula Oxygen Flow Rate (L/min) 2 2 Positive well developed Constitutional Narrative: thin, chronically ill-appearing General Appearance ED: well developed and NAD HEENT Reports moist mucous membranes Eyes PERRL and EOMs intact bilaterally Neck supple and no JVD Chest Wall palpation of chest normal Chest Narrative: Tunnel dialysis catheter in the right anterior chest wall Resp normal respiratory effort and clear to auscultation bilaterally Cardio regular rate, regular rhythm and no murmurs GI normal to inspection, nondistended, normoactive bowel sounds and non-tender Extremity normal to inspection Neuro oriented x3 Sensorium / Orientation: alert Motor Exam: general weakness Psych mental status grossly normal Mood & Affect: anxious Skin no rashes or lesions noted MDM MDM MDM Narrative Medical decision making narrative: Patient evaluated for generalized weakness with associated COVID symptoms as well as replacement of her NG tube that she has for malnutrition. Patient is hemodynamically stable in the ER. She is requiring supplemental oxygen of 2 L. She is found to have a hemoglobin of 6.0. Patient has acute on chronic anemia likely secondary to her end-stage renal disease. She does have elevated BUN and creatinine which is consistent with her end-stage renal disease. Patient is ordered a unit of blood. Chest x-ray interpreted by myself as well as radiology shows a increase in size of a large right pleural fluid collection. I spoke with physician on-call for her facility who felt that it be better for her to be transfused monitored in the hospital versus going back to the SNF for blood transfusion. Patient will be admitted for transfusion and further pulmonary monitoring especially given her pleural effusion as well as her COVID-19 infection. NG tube is replaced by myself. Patient tolerated this well. Lab Data Attestation: I reviewed the patient's lab results. Labs: Laboratory Results - last 24 hr 11/03/22 11/03/22 09:20 09:20 WBC 2.4 L RBC 1.91 L Hgb 6.0 L* Hct 19.1 L MCV 100.0 H D MCH 31.4 MCHC 31.4 L D RDW Std Deviation 63.0 H RDW Coeff of Valentina 17.3 H Plt Count 88 L MPV 10.3 Immature Gran % (Auto) 0.400 Neut % (Auto) 58.6 Lymph % (Auto) 20.7 Harper % (Auto) 14.5 H Eos % (Auto) 4.1 Baso % (Auto) 1.7 H Absolute Neuts (auto) 1.4 L Absolute Lymphs (auto) 0.50 L Nucleated RBC % 0 Differential Comment SCANNED Diff Path Review May foll Platelet Estimate SLT DEC Sodium 138 Potassium 3.5 Chloride 103 Carbon Dioxide 32.0 Anion Gap 3 L BUN 19 H Creatinine 2.73 H Estim Creat Clear Calc 24.62 Est GFR (MDRD) Af Amer 23 L Est GFR (MDRD) Non-Af 19 L BUN/Creatinine Ratio 7.0 L Glucose 69 L Calcium 7.7 L Radiography Diagnostic Testing: Clinical Impression(s) from Imaging Studies Chest X-Ray 11/03/22 09:43 IMPRESSION: 1. Increase in large volume right pleural fluid with persistent compressive atelectasis of the right lower lobe, right middle lobe and partial atelectasis of the right upper lobe. 2. No significant interval change. 3. Interval removal of Dobbhoff feeding tube when compared to 11/02/2022. Electronically Signed: Cornle Fish MD at 9:59 EST , Chest X-Ray 11/03/22 11:25 IMPRESSION: Feeding tube tip in the proximal stomach Lung cadena show no interval change Electronically Signed: Ezequiel Crespo MD at 12:55 EST , Discharge Plan Dx/Rx/DC Orders Clinical Impression: Anemia, Pleural effusion, right, Hypoxia, COVID-19, Complication of feeding tube Disposition Disposition: Acute Care Hospital [facility] Discharge Date/Time: 11/03/22 14:39
--- NOTE | 2022-11-03 11:19 | HP.PCM.HOS_ITS ---
HPI - General General Date of Admission: 11/03/22 Date of Service: 11/03/22 Chief Complaint: general illness HPI Narrative ANA GARCÍA, is a 52 F with a PMH as outlined who presents via the ED on 11/03/2022 with a complaint of generalised feeling of unwellness. SHe tested positive for covid 3 days ago. SHe was seen in the ED for repositioning of her PEG tube which she had pulled out yesterday. However, she pulled it out again today. She has just not been feeling well since she tested positive for covid. She denied any feve,r chills, cough, chest pain, palpitations, dizziness, nausea, vomiting or diarrhea. Review of systems is otherwise negative. Vitals were BP of 101/48, OR of 61 and RR of 20. She was saturating at 100%on 2L of oxygen. CBC showed Hb of 6, with wbc of 2.4 and platelets of 88. Chemistry showed Cr of 2.73, glucose of 69 and CXR showed increase in large right volume pleural fluid with persistent compressive atelectasis of the right lower lobe, right middle lobe and partial atelectasis of right upper lobe. She is being admitted to be managed for COVID 19 infection, with acute on chronic anemia and right pleural effusion. [facility] Medical History Acute on chronic renal insufficiency Anemia Autoimmune hepatitis Bacteremia due to methicillin resistant Staphylococcus epidermidis Bipolar disorder CHI (closed head injury) Chronic pain Chronic renal insufficiency, stage III (moderate) Cirrhosis of liver Debility Depression Diabetes mellitus, type 2 Encephalopathy acute Essential hypertension Reilly's thyroiditis Hepatic encephalopathy Hepatitis Hypothyroidism Kidney disease MRSA bacteremia Myocardial infarct Non-smoker On home oxygen therapy Pancreatitis Pancytopenia Peripheral neuropathy Right lower lobe pneumonia Schizoaffective disorder Severe sepsis Splenomegaly Stage 3b chronic kidney disease (CKD) Weakness Home Medications rifaximin 550 mg tablet (Xifaxan) 550 mg PO BID IBS 11/04/17 [History Last Taken 06/14/22] pantoprazole 40 mg tablet,delayed release 40 mg PO DAILY GERD 03/20/21 [History Last Taken 06/14/22] sertraline 50 mg tablet 75 mg PO QHS DEPRESSION 03/20/21 [History Last Taken 06/14/22] sucralfate 1 gram tablet (Carafate) 1 g PO QHS STOMACH 03/20/21 [History Last Taken 06/14/22] ursodiol 300 mg capsule 300 mg PO BID LIVER 04/25/21 [History Last Taken 06/14/22] carbamazepine 100 mg tablet,extended release,12 hr 100 mg PO BID bipolar 04/29/21 [History Last Taken 06/14/22] zinc 50 mg tablet 50 mg PO DAILY SUPPLEMENT 09/18/21 [History Last Taken 06/14/22] carvedilol 3.125 mg tablet 6.25 mg PO BID HEART 03/23/22 [History Last Taken 06/14/22] lurasidone 40 mg tablet 40 mg PO LUNCH MOOD 04/16/22 [History Last Taken 06/14/22] torsemide 20 mg tablet 80 mg PO DAILY diuretic 04/16/22 [History Last Taken 06/14/22] ergocalciferol (vitamin D2) 1,250 mcg (50,000 unit) capsule (Vitamin D2) 1,250 unit PO MOTH SUPPLMENT 05/14/22 [History Last Taken 06/14/22] insulin lispro 100 unit/mL subcutaneous pen (Humalog KwikPen (U-100) Insulin) 7 unit subcut ACHS diabetes 05/14/22 [History Last Taken 06/14/22] levothyroxine 75 mcg tablet 75 mcg PO DAILY THYROID 05/14/22 [History Last Taken 06/14/22] ondansetron 4 mg disintegrating tablet 8 mg PO Q8H PRN Nausea And Vomiting 05/14/22 [History Last Taken 06/13/22] lactulose 20 gram/30 mL oral solution 20 g PO BID liver failure 06/11/22 [History Last Taken 06/14/22] acetaminophen 500 mg tablet 500 mg PO Q6H PRN Pain 11/03/22 [History Last Taken Unknown] ascorbic acid (vitamin C) 500 mg tablet 500 mg PO DAILY supplement 11/03/22 [History Last Taken Unknown] bisacodyl 10 mg rectal suppository 10 mg OR DAILY PRN Constipation 11/03/22 [History Last Taken Unknown] darbepoetin sree in polysorbat 40 mcg/0.4 mL in polysorbate injection syringe 40 mcg subcut QWEEK bone marrow 11/03/22 [History Last Taken Unknown] dextromethorphan HBr 10 mg/15 mL oral syrup 10 mg PO Q6H PRN Cough 11/03/22 [History Last Taken Unknown] insulin degludec 100 unit/mL (3 mL) subcutaneous pen (Tresiba FlexTouch U-100 insulin) 10 unit subcut DAILY diabetes 11/03/22 [History Last Taken Unknown] insulin glargine 100 unit/mL (3 mL) subcutaneous pen (Lantus Solostar U-100 Insulin) 10 unit subcut DAILY DM2 11/03/22 [History Last Taken Unknown] insulin lispro 100 unit/mL subcutaneous pen (Humalog KwikPen (U-100) Insulin) See Protocol subcut ACHS diabetes 11/03/22 [History Last Taken Unknown] magnesium hydroxide 400 mg/5 mL oral suspension (Milk of Magnesia) 2,400 mg PO DAILY PRN Constipation 11/03/22 [History Last Taken Unknown] Allergy/AdvReac Type Severity Reaction Status Date / Time adhesive Allergy Rash Verified 11/03/22 07:54 escitalopram oxalate Allergy blindness Verified 11/03/22 07:54 [From Lexapro] Fish Containing Products Allergy Other Verified 11/03/22 07:54 gabapentin [From Neurontin] Allergy Alan Verified 11/03/22 07:54 Jez's Syndrome lamotrigine [From Lamictal] Allergy Blindness Verified 11/03/22 07:54 topiramate [From Topamax] Allergy Other Verified 11/03/22 07:54 sour cream AdvReac Severe Anaphylaxis Uncoded 11/02/22 12:39 Preservatives AdvReac Intermediate passed Uncoded 11/02/22 12:39 out, lungs deflated Family History Father CVA (cerebral vascular accident) Myocardial infarction Heart disease CAD (coronary artery disease) Grandmother CHF (congestive heart failure) Sister Hypertension Mother Heart disease Surgical History H/O: hysterectomy History of abdominal paracentesis (10/2019) History of appendectomy History of cholecystectomy S/P TIPS (transjugular intrahepatic portosystemic shunt) Social History household members: significant other housing: house Smoking Status: Never smoker alcohol intake: never details: Unknown substance use type: does not use ROS ROS Narrative very lethargic, but able to answer some questions Constitutional Constitutional: Reports fatigue, malaise and weakness; Denies anorexia, change in weight, chills or fever(s) Eyes Eyes: Denies change in vision ENT HEENT: Denies dysphagia, epistaxis, headache(s) or sore throat Cardiovascular Cardiovascular: Denies chest pain, dyspnea on exertion, edema, lightheadedness, orthopnea, palpitations, rapid heart rate or syncope Respiratory/Chest Respiratory/Chest: Denies cough, hemoptysis, productive cough, shortness of breath at rest or shortness of breath with exertion Gastrointestinal Gastrointestinal: Reports diarrhea and nausea; Denies abdominal pain, coffee ground emesis, constipation, dyspepsia, hematemesis, hematochezia or vomiting Genitourinary Genitourinary: Reports other Details: still makes urine ; Denies dysuria Musculoskeletal Musculoskeletal: Reports back pain Neurologic Neurologic: Denies dizziness, focal weakness or headache(s) Vital Signs Vital Signs Vital Signs: 11/03/22 07:50 11/03/22 07:54 11/03/22 09:38 Temperature 98.3 F Temperature Source Temporal Pulse Rate 59 L 61 Respiratory Rate 18 Respiratory Pattern Normal Blood Pressure 101/48 L 96/42 L Blood Pressure Mean 65 60 Pulse Ox 93 90 Oxygen Delivery Method Room Air Nasal Cannula Oxygen Flow Rate (L/min) 2 11/03/22 10:42 11/03/22 10:50 Temperature Temperature Source Pulse Rate 61 Respiratory Rate 20 H Respiratory Pattern Blood Pressure 101/48 L Blood Pressure Mean 65 Pulse Ox 100 Oxygen Delivery Method Nasal Cannula Nasal Cannula Oxygen Flow Rate (L/min) 2 2 Weight Weight: 176 lb 5.917 oz Body Mass Index (BMI) 26.0 Physical Exam Const alert Constitutional Narrative: frail and lethargic Orientation / Consciousness: lethargic HEENT normocephalic, head/scalp atraumatic and hearing grossly normal bilaterally HEENT Narrative: dry oral mucosa Eyes PERRL, EOMs intact bilaterally and conjunctivae normal Neck no lymphadenopathy and supple Resp normal respiratory effort, no retractions and no use of accessory muscles Cardio regular rate, regular rhythm, S1 normal heart sound, S2 normal heart sound and no murmurs GI normal to inspection, nondistended, normoactive bowel sounds, soft to palpation, non-tender and non-distended GI Narrative: NG tube in situ Extremity normal to inspection, full ROM and no clubbing, cyanosis or edema Neuro moves all extremities Neuro Narrative: confused, lethargic Results Lab / Micro Data Result Diagrams: 11/04/22 08:00 11/04/22 08:00 Labs: Laboratory Results - last 24 hr 11/03/22 09:20: WBC 2.4 L, RBC 1.91 L, Hgb 6.0 L*, Hct 19.1 L, MCV 100.0 H D, MCH 31.4, MCHC 31.4 L D, RDW Std Deviation 63.0 H, RDW Coeff of Valentina 17.3 H, Plt Count 88 L, MPV 10.3, Immature Gran % (Auto) 0.400, Neut % (Auto) 58.6, Lymph % (Auto) 20.7, [place] % (Auto) 14.5 H, Eos % (Auto) 4.1, Baso % (Auto) 1.7 H, Absolute Neuts (auto) 1.4 L, Absolute Lymphs (auto) 0.50 L, Nucleated RBC % 0, Differential Comment SCANNED, Diff Path Review March foll, Platelet Estimate SLT 11/03/22 09:20: Sodium 138, Potassium 3.5, Chloride 103, Carbon Dioxide 32.0, Anion Gap 3 L, BUN 19 H, Creatinine 2.73 H, Estim Creat Clear Calc 24.62, Est GFR (MDRD) Af Amer 23 L, Est GFR (MDRD) Non-Af 19 L, BUN/Creatinine Ratio 7.0 L, Glucose 69 L, Calcium 7.7 L Radiology Impression Chest X-Ray 11/03/22 09:43 IMPRESSION: 1. Increase in large volume right pleural fluid with persistent compressive atelectasis of the right lower lobe, right middle lobe and partial atelectasis of the right upper lobe. 2. No significant interval change. 3. Interval removal of Dobbhoff feeding tube when compared to 11/02/2022. Electronically Signed: Cornel Fish MD at 9:59 EST , Assessment & Plan Assessment/Plan (1) COVID-19: (2) Complication of feeding tube: (3) Pleural effusion, right: (4) Anemia: PLAN: Plan #GEneral weakness and debility due to covid 19 infection * on room air * diagnosed 3 days ago * supportive treatment for now * hold off on steroids as she is on room air * Pt/OT consult * breathing treatment with bronchodilators * #Acute on chronic anemia * Hb is 6. Baseline Hb.. * will transfuse with one unit of PRBCs * give a dose of IV lasix 20mg x 1 after dialysis * #JULIANNE on CKD 3B * CR is 2.57, with baseline Cr of 1.8 * likely due to cirrhosis and also possible hepatorenal syndrome * will hydrate very gently with IVF * #RIght pleural effusion * thought to be due to right hepatic hydrothoraxi in setting of autoimmune hepatitis * had it during her last admission in June. Previously had a TIPS but was told it wasnt working in January 2022 * consult pulmonology * #Pancytopenia * this is chronic, and due to cirrhosis. WIll monitor * #TYpe 2 diabetes mellitus: on lantus 10 units daily. ISS. Accuchecks ACHS #HIstory of bipolar disorder: on latuda DVT prophylaxis: SCDs Charges/Coding Visit Charges Inpatient E&M: 74220 Init Hosp L3
--- NOTE | 2022-11-03 11:25 | RAD_ITS ---
STUDY: X-RAY CHEST REASON FOR EXAM: Female, 52 years old. Feeding tube placement TECHNIQUE: 2 AP portable views of the chest COMPARISON: Earlier today FINDINGS: Since the previous study, a feeding tube has been placed, tip is in the proximal stomach. Stable appearance of a right subclavian catheter. Biliary stent noted Left lung remains normally expanded and free of superimposed process. Stable opacification in the inferior three fourths of the right hemithorax and likely combination of effusion and atelectasis and perhaps infiltrate. No interval change since the previous study Normal size heart. Normal mediastinum and sonny. Normal visualized pulmonary arteries. Normal visualized aortic arch and descending thoracic aorta. Normal visualized thoracic spine. Normal visualized ribs, clavicles, and shoulders. There is no demonstrated abnormality of the visualized soft tissue structures of the upper abdomen. RAD/Chest 1 View (Portable) IMPRESSION: Feeding tube tip in the proximal stomach Lung cadena show no interval change Electronically Signed: Ezequiel Crespo MD at 12:55 EST ,
[2022-11-03 14:20] LABS: Bedside Glucose 82 mg/dL (74-106)
[2022-11-03 17:16] LABS: Bedside Glucose 81 mg/dL (74-106)
[2022-11-03] MEDS: guaiFENesin 1,200 MG Tablet 1200 MG PO (19:44)
[2022-11-03 20:50] LABS: Bedside Glucose 119 mg/dL (74-106)
[2022-11-03] MEDS: 0.9% Saline Lock 10 ML Syringe IV (23:58)
[2022-11-03] MEDS: Ondansetron 4 MG/2 ML Vial IV (23:58)
[2022-11-04] VITALS (8 sets, daily range): BP systolic 120–149; BP diastolic 58–71; PULSE 62–77; RESP 18–20; TEMP 36.6–37.1; O2SAT 95–100
[2022-11-04] MEDS: Acetaminophen 500 MG Tablet PO (03:34)
[2022-11-04] MEDS: 0.9% Saline Lock 10 ML Syringe IV (06:09)
[2022-11-04] MEDS: Ondansetron 4 MG/2 ML Vial IV ×2 (06:09→18:13)
[2022-11-04] MEDS: Levothyroxine 75 MCG Tablet PO (06:10)
[2022-11-04] MEDS: Insulin Lispro 100 UNIT/ML INSULN.PEN SC ×3 (06:21→21:43)
[2022-11-04 06:46] LABS: Bedside Glucose 166 mg/dL (74-106)
[2022-11-04 08:17] LABS: Absolute Lymphocyte Count 0.59 X10^3/uL (0.83-4.51); Absolute Neutrophil Count 6.5 X10^3/uL (2.0-7.7); Basophil# 0.06 X10^3/uL; Basophil% 0.8 % (0-1); Eosinophil# 0.07 X10^3/uL; Eosinophils% 0.9 % (0-5); Hematocrit 28.5 % (37-47); Hemoglobin 9.8 g/dL (12.0-15.0); Lymphocyte # 0.59 X10^3/ul (0.83-4.51); Lymphocyte % 7.5 % (19-41); Mean Corp Hgb Conc 34.4 g/dL (32-36); Mean Corpuscular Hgb 32.8 pg (27.0-32.0); Mean Corpuscular Volume 95.3 fL (81-99); Mean Platelet Vol. 9.9 fl (6.2-12.0); Monocyte# 0.53 X10^3/uL; Monocyte% 6.8 % (0-10); NRBC Flagged by Analyzer 0 % (0-5); Neutrophil # 6.53 X10^3/uL (2.7-7.7); Neutrophil % 83.5 % (47-70); POSITIVE DIFFERENTIAL YES; Platelet Count 101 K/mm3 (150-450); RBC Distribution Width CV 17.1 % (11.6-14.6); RBC Distribution Width SD 58.6 fl (35.1-43.9); Red Blood Count 2.99 M/mm3 (4.2-5.4); White Blood Count 7.8 K/mm3 (4.4-11.0)
[2022-11-04 08:19] LABS: Differential Indicated SCAN CRITERIA MET
[2022-11-04 08:49] LABS: ALB/GLOB Ratio 0.4 RATIO (0.9-2.4); AST(SGOT) 44 U/L (15-37); Alanine Aminotransfer ALT/SGPT 34 U/L (13-56); Albumin, Serum 1.9 g/dL (3.2-5.0); Alkaline Phosphatase 168 U/L (45-117); Anion Gap 7 (5-15); BUN 25 mg/dL (7-18); BUN/Creat Ratio 7.4 RATIO (10-20); Calcium,Total 7.7 mg/dL (8.5-10.1); Chloride 99 mmol/L (98-107); EST Glomerular Filtration Rate 15 mL/min (>60); Est Glom Filt Rate - Afr Amer 18 mL/min (>60); Estimated Creatinine Clearance 19.77 ml/min; Globulin 4.5 g/dL (2.2-4.2); Glucose 159 mg/dL (74-106); Potassium 3.4 mmol/L (3.5-5.1); Protein, Total 6.4 g/dL (6.4-8.2); Sodium Level 135 mmol/L (136-145)
[2022-11-04 09:15] LABS: Differential Comment SCANNED
[2022-11-04] MEDS: Pantoprazole Sodium 40 MG Tablet PO (10:35)
[2022-11-04] MEDS: guaiFENesin 1,200 MG Tablet 1200 MG PO ×2 (10:35→21:44)
[2022-11-04] MEDS: Carvedilol 6.25 MG Tablet PO ×2 (10:35→21:42)
[2022-11-04] MEDS: Ascorbic Acid 500 MG Tablet PO (10:35)
[2022-11-04] MEDS: Ursodiol 250 MG Tablet PO ×2 (10:35→21:42)
[2022-11-04] MEDS: rifAXIMin 550 MG Tablet PO ×2 (10:35→21:42)
[2022-11-04] MEDS: Insulin Glargine-YFGN 100 UNIT/ML Pen 10 UNIT SC (10:36)
[2022-11-04] MEDS: Lactulose 20 GM/30 ML UDC PO (10:37)
[2022-11-04 11:11] LABS: Bedside Glucose 144 mg/dL (74-106)
--- NOTE | 2022-11-04 13:35 | EX.PCM.CONCC ---
Assessment & Plan Assessment/Plan (1) Pleural effusion: PLAN: This is a right hepatic hydrothorax based on prior analysis and thoracentesis in March 2022 She is not asymptomatic from this stand point Need to obtain records from [facility] regarding transplant candidacy or candidacy from TIPS revision Primary symptom driving process at this time is COVID PLAN: Plan Obtain records from [facility] Obtain Coagulation profile Ideally is she is not a candidate for TIPS / transplant, then she may be better of with an indwelling pleural catheter for palliative purposes If not, then can consider thoracentesis HPI Consult Data Date of Consult: 11/04/22 HPI Narrative Reason for Consultation: Pleural effusion HPI Narrative: ANA GARCÍA, is a 52 F with a PMH as outlined who presents via the ED on 11/03/2022 with a complaint of generalised feeling of unwellness. SHe tested positive for covid 3 days ago. SHe was seen in the ED for repositioning of her PEG tube which she had pulled out yesterday. However, she pulled it out again today. She has just not been feeling well since she tested positive for covid. She denied any feve,r chills, cough, chest pain, palpitations, dizziness, nausea, vomiting or diarrhea. Review of systems is otherwise negative. Vitals were BP of 101/48, MA of 61 and RR of 20. She was saturating at 100%on 2L of oxygen. CBC showed Hb of 6, with wbc of 2.4 and platelets of 88. Chemistry showed Cr of 2.73, glucose of 69 and CXR showed increase in large right volume pleural fluid with persistent compressive atelectasis of the right lower lobe, right middle lobe and partial atelectasis of right upper lobe. She is being admitted to be managed for COVID 19 infection, with acute on chronic anemia and right pleural effusion. Pulmonary has been consulted for management of right pleural effusion. [facility] Medical History Acute on chronic renal insufficiency Anemia Autoimmune hepatitis Bacteremia due to methicillin resistant Staphylococcus epidermidis Bipolar disorder CHI (closed head injury) Chronic pain Chronic renal insufficiency, stage III (moderate) Cirrhosis of liver Debility Depression Diabetes mellitus, type 2 Encephalopathy acute Essential hypertension Reilly's thyroiditis Hepatic encephalopathy Hepatitis Hypothyroidism Kidney disease MRSA bacteremia Myocardial infarct Non-smoker On home oxygen therapy Pancreatitis Pancytopenia Peripheral neuropathy Right lower lobe pneumonia Schizoaffective disorder Severe sepsis Splenomegaly Stage 3b chronic kidney disease (CKD) Weakness Home Medications rifaximin 550 mg tablet (Xifaxan) 550 mg PO BID IBS 11/04/17 [History Last Taken 06/14/22] pantoprazole 40 mg tablet,delayed release 40 mg PO DAILY GERD 03/20/21 [History Last Taken 06/14/22] sertraline 50 mg tablet 75 mg PO QHS DEPRESSION 03/20/21 [History Last Taken 06/14/22] sucralfate 1 gram tablet (Carafate) 1 g PO QHS STOMACH 03/20/21 [History Last Taken 06/14/22] ursodiol 300 mg capsule 300 mg PO BID LIVER 04/25/21 [History Last Taken 06/14/22] carbamazepine 100 mg tablet,extended release,12 hr 100 mg PO BID bipolar 04/29/21 [History Last Taken 06/14/22] zinc 50 mg tablet 50 mg PO DAILY SUPPLEMENT 09/18/21 [History Last Taken 06/14/22] carvedilol 3.125 mg tablet 6.25 mg PO BID HEART 03/23/22 [History Last Taken 06/14/22] lurasidone 40 mg tablet 40 mg PO LUNCH MOOD 04/16/22 [History Last Taken 06/14/22] torsemide 20 mg tablet 80 mg PO DAILY diuretic 04/16/22 [History Last Taken 06/14/22] ergocalciferol (vitamin D2) 1,250 mcg (50,000 unit) capsule (Vitamin D2) 1,250 unit PO MOTH SUPPLMENT 05/14/22 [History Last Taken 06/14/22] insulin lispro 100 unit/mL subcutaneous pen (Humalog KwikPen (U-100) Insulin) 7 unit subcut ACHS diabetes 05/14/22 [History Last Taken 06/14/22] levothyroxine 75 mcg tablet 75 mcg PO DAILY THYROID 05/14/22 [History Last Taken 06/14/22] ondansetron 4 mg disintegrating tablet 8 mg PO Q8H PRN Nausea And Vomiting 05/14/22 [History Last Taken 06/13/22] lactulose 20 gram/30 mL oral solution 20 g PO BID liver failure 06/11/22 [History Last Taken 06/14/22] acetaminophen 500 mg tablet 500 mg PO Q6H PRN Pain 11/03/22 [History Last Taken Unknown] ascorbic acid (vitamin C) 500 mg tablet 500 mg PO DAILY supplement 11/03/22 [History Last Taken Unknown] bisacodyl 10 mg rectal suppository 10 mg MA DAILY PRN Constipation 11/03/22 [History Last Taken Unknown] darbepoetin sree in polysorbat 40 mcg/0.4 mL in polysorbate injection syringe 40 mcg subcut QWEEK bone marrow 11/03/22 [History Last Taken Unknown] dextromethorphan HBr 10 mg/15 mL oral syrup 10 mg PO Q6H PRN Cough 11/03/22 [History Last Taken Unknown] insulin degludec 100 unit/mL (3 mL) subcutaneous pen (Tresiba FlexTouch U-100 insulin) 10 unit subcut DAILY diabetes 11/03/22 [History Last Taken Unknown] insulin glargine 100 unit/mL (3 mL) subcutaneous pen (Lantus Solostar U-100 Insulin) 10 unit subcut DAILY DM2 11/03/22 [History Last Taken Unknown] insulin lispro 100 unit/mL subcutaneous pen (Humalog KwikPen (U-100) Insulin) See Protocol subcut ACHS diabetes 11/03/22 [History Last Taken Unknown] magnesium hydroxide 400 mg/5 mL oral suspension (Milk of Magnesia) 2,400 mg PO DAILY PRN Constipation 11/03/22 [History Last Taken Unknown] Allergy/AdvReac Type Severity Reaction Status Date / Time adhesive Allergy Rash Verified 11/03/22 07:54 escitalopram oxalate Allergy blindness Verified 11/03/22 07:54 [From Lexapro] Fish Containing Products Allergy Other Verified 11/03/22 07:54 gabapentin [From Neurontin] Allergy Alan Verified 11/03/22 07:54 Jez's Syndrome lamotrigine [From Lamictal] Allergy Blindness Verified 11/03/22 07:54 topiramate [From Topamax] Allergy Other Verified 11/03/22 07:54 sour cream AdvReac Severe Anaphylaxis Uncoded 11/02/22 12:39 Preservatives AdvReac Intermediate passed Uncoded 11/02/22 12:39 out, lungs deflated Family History Father CVA (cerebral vascular accident) Myocardial infarction Heart disease CAD (coronary artery disease) Grandmother CHF (congestive heart failure) Sister Hypertension Mother Heart disease Surgical History H/O: hysterectomy History of abdominal paracentesis (10/2019) History of appendectomy History of cholecystectomy S/P TIPS (transjugular intrahepatic portosystemic shunt) Social History household members: significant other housing: house Smoking Status: Never smoker alcohol intake: never details: Unknown substance use type: does not use Physical Exam Const alert Constitutional Narrative: frail and lethargic Orientation / Consciousness: lethargic HEENT normocephalic, head/scalp atraumatic and hearing grossly normal bilaterally HEENT Narrative: dry oral mucosa Eyes PERRL, EOMs intact bilaterally and conjunctivae normal Neck no lymphadenopathy and supple Resp normal respiratory effort, no retractions and no use of accessory muscles Auscultation: diminished lung sounds right Percussion: dullness Upper: right, Mid: right and Lower: right Cardio regular rate, regular rhythm, S1 normal heart sound, S2 normal heart sound and no murmurs GI normal to inspection, nondistended, normoactive bowel sounds, soft to palpation, non-tender and non-distended GI Narrative: NG tube in situ Extremity normal to inspection, full ROM and no clubbing, cyanosis or edema Neuro moves all extremities Neuro Narrative: confused, lethargic Medical Records Data Attestation: I reviewed the patient's medical records Lab / Micro Data Attestation: I reviewed the patient's lab results. Result Diagrams: 11/04/22 08:00 11/04/22 08:00 Labs: Laboratory Results - last 24 hr 11/03/22 12:05: Blood Type O POSITIVE, Antibody Screen NEGATIVE, Crossmatch See Detail 11/03/22 12:05: Crossmatch See Detail 11/03/22 13:59: POC Glucose 82 11/03/22 16:58: POC Glucose 81 11/03/22 20:26: POC Glucose 119 H 11/04/22 06:15: POC Glucose 166 H 11/04/22 08:00: WBC 7.8, RBC 2.99 L, Hgb 9.8 L, Hct 28.5 L, MCV 95.3, MCH 32.8 H, MCHC 34.4 D, RDW Std Deviation 58.6 H, RDW Coeff of Valentina 17.1 H, Plt Count 101 L, MPV 9.9, Immature Gran % (Auto) 0.500, Neut % (Auto) 83.5 H, Lymph % (Auto) 7.5 L, [place] % (Auto) 6.8, Eos % (Auto) 0.9, Baso % (Auto) 0.8, Absolute Neuts (auto) 6.5, Absolute Lymphs (auto) 0.59 L, Nucleated RBC % 0, Differential Comment SCANNED 11/04/22 08:00: Sodium 135 L, Potassium 3.4 L, Chloride 99, Carbon Dioxide 29.0, Anion Gap 7, BUN 25 H, Creatinine 3.40 H, Estim Creat Clear Calc 19.77, Est GFR (MDRD) Af Amer 18 L, Est GFR (MDRD) Non-Af 15 L, BUN/Creatinine Ratio 7.4 L, Glucose 159 H, Calcium 7.7 L, Total Bilirubin 1.10 H, AST 44 H, ALT 34, Alkaline Phosphatase 168 H, Total Protein 6.4, Albumin 1.9 L, Globulin 4.5 H, Albumin/Globulin Ratio 0.4 L 11/04/22 10:32: POC Glucose 144 H Charges/Coding Visit Charges Office Visits / Consults: 93713 OP Consult L5
--- NOTE | 2022-11-04 15:27 | NURSING ---
Pt family to bring in home med- carbamazepine and lurasidone around 192911/04/22
--- NOTE | 2022-11-04 16:19 | PN.HOSP_ITS ---
Subjective Subjective Patient seen and examined. She was much more alert and says she felt better today. She had no active events overnight and review of systems otherwise negative. She is on 3 L of oxygen. She has otherwise remained hemodynamically stable. Objective Data Objective Data Vital Signs: Vital Signs Temp Pulse Resp BP Pulse Ox O2 Del Method O2 Flow Rate 97.9 F 62 19 H 120/62 100 Nasal Cannula 3 11/04/22 15:16 11/04/22 15:16 11/04/22 15:16 11/04/22 15:16 11/04/22 15:16 11/04/22 15:48 11/04/22 15:48 Oxygen Flow Rate (L/min) 3 Oxygen Delivery Method Nasal Cannula Weight: 164 lb 7.437 oz Body Mass Index (BMI) 24.3 Intake & Output: Intake and Output for Last 24 Hours 11/02/22 11/03/22 11/04/22 23:59 23:59 23:59 Intake Total 800 / 800 600 / 600 Output Total 650 / 650 Balance 800 / 800 -50 / -50 Lab / Micro Data Result Diagrams: 11/04/22 08:00 11/04/22 08:00 Labs: Laboratory Results - last 24 hr 11/03/22 12:05: Crossmatch See Detail 11/03/22 12:05: Crossmatch See Detail 11/03/22 16:58: POC Glucose 81 11/03/22 20:26: POC Glucose 119 H 11/04/22 06:15: POC Glucose 166 H 11/04/22 08:00: WBC 7.8, RBC 2.99 L, Hgb 9.8 L, Hct 28.5 L, MCV 95.3, MCH 32.8 H , MCHC 34.4 D, RDW Std Deviation 58.6 H, RDW Coeff of Valentina 17.1 H, Plt Count 101 L, MPV 9.9, Immature Gran % (Auto) 0.500, Neut % (Auto) 83.5 H, Lymph % (Auto) 7.5 L, [place] % (Auto) 6.8, Eos % (Auto) 0.9, Baso % (Auto) 0.8, Absolute Neuts (auto) 6.5, Absolute Lymphs (auto) 0.59 L, Nucleated RBC % 0, Differential Comment SCANNED 11/04/22 08:00: Sodium 135 L, Potassium 3.4 L, Chloride 99, Carbon Dioxide 29.0, Anion Gap 7, BUN 25 H, Creatinine 3.40 H, Estim Creat Clear Calc 19.77, Est GFR (MDRD) Af Amer 18 L, Est GFR (MDRD) Non-Af 15 L, BUN/Creatinine Ratio 7.4 L, Glucose 159 H, Calcium 7.7 L, Total Bilirubin 1.10 H, AST 44 H, ALT 34, Alkaline Phosphatase 168 H, Total Protein 6.4, Albumin 1.9 L, Globulin 4.5 H, Albumin/Globulin Ratio 0.4 L 11/04/22 10:32: POC Glucose 144 H Physical Exam Const alert, oriented x3 and no apparent distress Constitutional Narrative: much more alert today HEENT normocephalic, head/scalp atraumatic, hearing grossly normal bilaterally and moist oral mucous membranes Head and Scalp: normocephalic Mouth: oral and palatal mucosa normal Eyes PERRL, EOMs intact bilaterally and conjunctivae normal Neck no lymphadenopathy and supple Resp Resp Narrative: markedly diminished breath sounds in right lung field, no wheezes or crackles. On 3L of oxygen by nasal canula Cardio regular rate, regular rhythm, S1 normal heart sound, S2 normal heart sound and no murmurs GI normal to inspection, nondistended, normoactive bowel sounds, soft to palpation, non-tender and non-distended GI Narrative: NG tube in situ Extremity normal to inspection, full ROM and no clubbing, cyanosis or edema Neuro oriented x3, CN's II-XII intact bilaterally and moves all extremities Sensorium / Orientation: awake and alert Motor Exam: strength 5/5 throughout Psych affect normal Assessment & Plan Assessment/Plan (1) COVID-19: (2) Complication of feeding tube: (3) Pleural effusion, right: (4) Anemia: PLAN: Plan #GEneral weakness and debility due to covid 19 infection * now on 3L of oxygen * diagnosed 3 days prior to admission * supportive treatment for now * hold off on steroids as she is on room air * Pt/OT consult * breathing treatment with bronchodilators * start on PO decadron since she is now on 3L of oxygen * #Acute on chronic anemia * Hb is up to 9.8 now; was 6 on admission. * s/p transfusion of one unit of PRBC * this is recurrent and likely due to her chronic liver disease * will monitor * * * #JULIANNE on CKD 3B * now dialysis dependent * CR today is 3.4, trended up form 2.57 yesterday * has temporary dialysis catheter in chest * Nephrology consulted as she is having dialysis 3 times weekly. * = * #RIght pleural effusion * thought to be due to right hepatic hydrothorax in setting of autoimmune hepatitis * had it during her last admission in June. Previously had a TIPS but was told it wasnt working in January 2022 * Patient states when she went to [facility] the fluid was started. * Pulmonology consulted here and recommends no active intervention as patient is not symptomatic from the standpoint and that it would keep recurring even if tapped because the underlying cause which is the chronic liver disease with ascites has not been taken care of. * #Pancytopenia * this is chronic, and due to cirrhosis. WIll monitor * platelets are 101 with Hb of 9.8 and wbc of 7.8 * #TYpe 2 diabetes mellitus: on lantus 10 units daily. ISS. Leslie MCDONALD #HIstory of bipolar disorder: on latuda DVT prophylaxis: SCDs Charges/Coding Visit Charges Inpatient E&M: 82108 Subs Hosp L2
--- NOTE | 2022-11-04 16:23 | PCM.CONS.R ---
Assessment & Plan Assessment/Plan (1) JULIANNE (acute kidney injury): PLAN: review of records from [facility]. She has history of CKD stage IV in the setting of cirrhosis. She was admitted with fluid overload, started dialysis via catheter. Last dialysis was Saturday. No acute indications today. Will call dialysis clinic tomorrow for recent records. Covid. Was diagnosed when she was in [facility] History of cirrhosis. As per last nephrology note, she was on list for simultaneous liver and kidney transplant but recently deactivated due to general debility and other illnesses. HPI Consult Data Date of Consult: 11/04/22 HPI Narrative Reason for Consultation: renal failure requiring dialysis HPI Narrative: ANA GARCÍA, is a 52 F who presents to the hospital with generalized weakness. Nephrology consultation due to acute renal failure requiring dialysis. She was recently admitted at [facility]. History of cirrhosis, portal hypertension, hepatic encephalopathy, recurrent hydrothorax, apparently was listed for liver and kidney transplant at some point, recently deactivated due to significant debility. Tested positive for covid while she was at [facility]. She came to us about a week ago after hospital stay. Continues to have significant weakness, came back with similar complaints. She was getting dialysis at [facility]. [facility] Medical History Acute on chronic renal insufficiency Anemia Autoimmune hepatitis Bacteremia due to methicillin resistant Staphylococcus epidermidis Bipolar disorder CHI (closed head injury) Chronic pain Chronic renal insufficiency, stage III (moderate) Cirrhosis of liver Debility Depression Diabetes mellitus, type 2 Encephalopathy acute Essential hypertension Reilly's thyroiditis Hepatic encephalopathy Hepatitis Hypothyroidism Kidney disease MRSA bacteremia Myocardial infarct Non-smoker On home oxygen therapy Pancreatitis Pancytopenia Peripheral neuropathy Right lower lobe pneumonia Schizoaffective disorder Severe sepsis Splenomegaly Stage 3b chronic kidney disease (CKD) Weakness Home Medications rifaximin 550 mg tablet (Xifaxan) 550 mg PO BID IBS 11/04/17 [History Last Taken 06/14/22] pantoprazole 40 mg tablet,delayed release 40 mg PO DAILY GERD 03/20/21 [History Last Taken 06/14/22] sertraline 50 mg tablet 75 mg PO QHS DEPRESSION 03/20/21 [History Last Taken 06/14/22] sucralfate 1 gram tablet (Carafate) 1 g PO QHS STOMACH 03/20/21 [History Last Taken 06/14/22] ursodiol 300 mg capsule 300 mg PO BID LIVER 04/25/21 [History Last Taken 06/14/22] carbamazepine 100 mg tablet,extended release,12 hr 100 mg PO BID bipolar 04/29/21 [History Last Taken 06/14/22] zinc 50 mg tablet 50 mg PO DAILY SUPPLEMENT 09/18/21 [History Last Taken 06/14/22] carvedilol 3.125 mg tablet 6.25 mg PO BID HEART 03/23/22 [History Last Taken 06/14/22] lurasidone 40 mg tablet 40 mg PO LUNCH MOOD 04/16/22 [History Last Taken 06/14/22] torsemide 20 mg tablet 80 mg PO DAILY diuretic 04/16/22 [History Last Taken 06/14/22] ergocalciferol (vitamin D2) 1,250 mcg (50,000 unit) capsule (Vitamin D2) 1,250 unit PO MOTH SUPPLMENT 05/14/22 [History Last Taken 06/14/22] insulin lispro 100 unit/mL subcutaneous pen (Humalog KwikPen (U-100) Insulin) 7 unit subcut ACHS diabetes 05/14/22 [History Last Taken 06/14/22] levothyroxine 75 mcg tablet 75 mcg PO DAILY THYROID 05/14/22 [History Last Taken 06/14/22] ondansetron 4 mg disintegrating tablet 8 mg PO Q8H PRN Nausea And Vomiting 05/14/22 [History Last Taken 06/13/22] lactulose 20 gram/30 mL oral solution 20 g PO BID liver failure 06/11/22 [History Last Taken 06/14/22] acetaminophen 500 mg tablet 500 mg PO Q6H PRN Pain 11/03/22 [History Last Taken Unknown] ascorbic acid (vitamin C) 500 mg tablet 500 mg PO DAILY supplement 11/03/22 [History Last Taken Unknown] bisacodyl 10 mg rectal suppository 10 mg ID DAILY PRN Constipation 11/03/22 [History Last Taken Unknown] darbepoetin sree in polysorbat 40 mcg/0.4 mL in polysorbate injection syringe 40 mcg subcut QWEEK bone marrow 11/03/22 [History Last Taken Unknown] dextromethorphan HBr 10 mg/15 mL oral syrup 10 mg PO Q6H PRN Cough 11/03/22 [History Last Taken Unknown] insulin degludec 100 unit/mL (3 mL) subcutaneous pen (Tresiba FlexTouch U-100 insulin) 10 unit subcut DAILY diabetes 11/03/22 [History Last Taken Unknown] insulin glargine 100 unit/mL (3 mL) subcutaneous pen (Lantus Solostar U-100 Insulin) 10 unit subcut DAILY DM2 11/03/22 [History Last Taken Unknown] insulin lispro 100 unit/mL subcutaneous pen (Humalog KwikPen (U-100) Insulin) See Protocol subcut ACHS diabetes 11/03/22 [History Last Taken Unknown] magnesium hydroxide 400 mg/5 mL oral suspension (Milk of Magnesia) 2,400 mg PO DAILY PRN Constipation 11/03/22 [History Last Taken Unknown] Allergy/AdvReac Type Severity Reaction Status Date / Time adhesive Allergy Rash Verified 11/03/22 07:54 escitalopram oxalate Allergy blindness Verified 11/03/22 07:54 [From Lexapro] Fish Containing Products Allergy Other Verified 11/03/22 07:54 gabapentin [From Neurontin] Allergy Alan Verified 11/03/22 07:54 Jez's Syndrome lamotrigine [From Lamictal] Allergy Blindness Verified 11/03/22 07:54 topiramate [From Topamax] Allergy Other Verified 11/03/22 07:54 sour cream AdvReac Severe Anaphylaxis Uncoded 11/02/22 12:39 Preservatives AdvReac Intermediate passed Uncoded 11/02/22 12:39 out, lungs deflated Family History Father CVA (cerebral vascular accident) Myocardial infarction Heart disease CAD (coronary artery disease) Grandmother CHF (congestive heart failure) Sister Hypertension Mother Heart disease Surgical History H/O: hysterectomy History of abdominal paracentesis (10/2019) History of appendectomy History of cholecystectomy S/P TIPS (transjugular intrahepatic portosystemic shunt) Social History household members: significant other housing: house Smoking Status: Never smoker alcohol intake: never details: Unknown substance use type: does not use ROS ROS Narrative negative except above Physical Exam Narrative exam deferred due to covid Lab / Micro Data Result Diagrams: 11/04/22 08:00 11/04/22 08:00 Labs: Laboratory Results - last 24 hr 11/03/22 12:05: Crossmatch See Detail 11/03/22 12:05: Crossmatch See Detail 11/03/22 16:58: POC Glucose 81 11/03/22 20:26: POC Glucose 119 H 11/04/22 06:15: POC Glucose 166 H 11/04/22 08:00: WBC 7.8, RBC 2.99 L, Hgb 9.8 L, Hct 28.5 L, MCV 95.3, MCH 32.8 H, MCHC 34.4 D, RDW Std Deviation 58.6 H, RDW Coeff of Valentina 17.1 H, Plt Count 101 L, MPV 9.9, Immature Gran % (Auto) 0.500, Neut % (Auto) 83.5 H, Lymph % (Auto) 7.5 L, [place] % (Auto) 6.8, Eos % (Auto) 0.9, Baso % (Auto) 0.8, Absolute Neuts (auto) 6.5, Absolute Lymphs (auto) 0.59 L, Nucleated RBC % 0, Differential Comment SCANNED 11/04/22 08:00: Sodium 135 L, Potassium 3.4 L, Chloride 99, Carbon Dioxide 29.0, Anion Gap 7, BUN 25 H, Creatinine 3.40 H, Estim Creat Clear Calc 19.77, Est GFR (MDRD) Af Amer 18 L, Est GFR (MDRD) Non-Af 15 L, BUN/Creatinine Ratio 7.4 L, Glucose 159 H, Calcium 7.7 L, Total Bilirubin 1.10 H, AST 44 H, ALT 34, Alkaline Phosphatase 168 H, Total Protein 6.4, Albumin 1.9 L, Globulin 4.5 H, Albumin/Globulin Ratio 0.4 L 11/04/22 10:32: POC Glucose 144 H
[2022-11-04 17:00] LABS: Bedside Glucose 187 mg/dL (74-106)
[2022-11-04] MEDS: dexAMETHasone 4 MG Tablet 6 MG PO (17:26)
--- NOTE | 2022-11-04 18:35 | NURSING ---
pt refusing Tylenol for pain, stating it doesn't work, requesting something more. Holly notified.
[2022-11-04] MEDS: oxyCODONE 5 MG Tablet PO (19:46)
[2022-11-04] MEDS: Sertraline 50 MG Tablet 75 MG PO (19:47)
[2022-11-04] MEDS: Sucralfate 1 GM Tablet PO (21:42)
[2022-11-04] MEDS: MELATONIN 3 MG TABLET PO (21:42)
[2022-11-04 22:16] LABS: Bedside Glucose 222 mg/dL (74-106)
[2022-11-05] VITALS (8 sets, daily range): BP systolic 111–142; BP diastolic 52–75; PULSE 61–77; RESP 16–30; TEMP 36.3–36.9; O2SAT 86–100
--- NOTE | 2022-11-05 | FLU_PTH ---
PATIENT: ANA GARCÍA LOC: MS3 U#:[id number] AGE/SX: 52/F ROOM: [facility] [place]03[facility]: Dr. Albino Monson MD : 1970 BED: 1 DIS: 11/07/2022 SPEC #: [id number] RECD: 11/05/22 14:41 STATUS: VENTURA REQ #: [id number] JOSE J: 11/05/22 00:[address]: Rachel Nelson DEPT: CYTOLOGY RECD BY: Nancy Zhou ENTERED: 11/06/22 09:23 SP TYPE: Fluid OTHR DR: MD Dr. Patel Avila DO Dr. Jayaprakas Dasari, MD Dr. Lee Ann Baggott, MD Dr. Liza D Talampas, MD Dr. Nana Yaa Koram, MD Dr. Tanmay Panchabhai, MD Christina Muller, FINANCIAL OFFICER-C Tissues: Pleural fluid, NOS Procedures: Special Stain Group II Surgery Specimen Level IV Cytospin Fluid HEADER OPERATION: Right thoracentesis PRE-OP DIAGNOSIS: Pleural effusion TISSUE SUBMITTED: Thoracentesis fluid for cytology DIAGNOSIS CYTOLOGY Thoracentesis fluid for cytology (cytospin and cell block): Negative for malignant cells. See comment. NATALIIA:logan 11/07/2022 COMMENT Correlation with clinical findings and appropriate follow up are necessary. CYTOLOGY STUDY Slides are reviewed. CYTOLOGY GROSS Received is 80 ml of yellow cloudy fluid labeled with the patient's name and and designated per the requisition as thoracentesis. Submitted for cytology preparation including cell block. / logan 11/06/2022 TC:5 CPT: 97741, 88232
[2022-11-05] MEDS: Ondansetron 4 MG/2 ML Vial IV ×2 (02:14→13:32)
[2022-11-05] MEDS: 0.9% Saline Lock 10 ML Syringe IV ×2 (02:15→13:32)
[2022-11-05] MEDS: oxyCODONE 5 MG Tablet PO (02:15)
[2022-11-05] MEDS: Levothyroxine 75 MCG Tablet PO (06:34)
[2022-11-05] MEDS: Insulin Lispro 100 UNIT/ML INSULN.PEN SC ×3 (06:34→22:24)
[2022-11-05 07:01] LABS: Bedside Glucose 247 mg/dL (74-106)
[2022-11-05 07:18] LABS: Absolute Lymphocyte Count 0.23 X10^3/uL (0.83-4.51); Absolute Neutrophil Count 3.1 X10^3/uL (2.0-7.7); Hematocrit 24.8 % (37-47); Hemoglobin 8.1 g/dL (12.0-15.0); Lymphocyte # 0.23 X10^3/ul (0.83-4.51); Lymphocyte % 6.6 % (19-41); Mean Corp Hgb Conc 32.7 g/dL (32-36); Mean Corpuscular Hgb 30.9 pg (27.0-32.0); Mean Corpuscular Volume 94.7 fL (81-99); Mean Platelet Vol. 10.5 fl (6.2-12.0); Monocyte# 0.13 X10^3/uL; Monocyte% 3.7 % (0-10); NRBC Flagged by Analyzer 0 % (0-5); Neutrophil # 3.11 X10^3/uL (2.7-7.7); Neutrophil % 88.6 % (47-70); POSITIVE COUNT YES; POSITIVE DIFFERENTIAL YES; Platelet Count 75 K/mm3 (150-450); RBC Distribution Width CV 16.3 % (11.6-14.6); RBC Distribution Width SD 55.8 fl (35.1-43.9); Red Blood Count 2.62 M/mm3 (4.2-5.4); White Blood Count 3.5 K/mm3 (4.4-11.0)
--- NOTE | 2022-11-05 07:22 | US_ITS ---
PROCEDURE: ULTRASOUND GUIDED THORACENTESIS. DATE: 11/05/2022. INDICATION: Female, 52 years old. Right pleural effusion PHYSICIAN: Dash Shin M.D. PROCEDURE: The risks, benefits, and alternatives to the procedure were explained to the patient. The specific risks of bleeding, infection, and pneumothorax requiring chest tube insertion were discussed and accepted. Written informed consent was obtained. Ultrasonographic evaluation of the right lower pleural space was carried out. An adequate pocket was identified. The patient was placed in the sitting, upright position. The overlying skin was prepped and draped in sterile fashion. 1% lidocaine was administered subcutaneously for local anesthesia. Under ultrasound guidance, a 5 Algerian thoracentesis needle/catheter system was advanced into the right posterior lower pleural fluid collection. Approximately 2100 mL of lito-colored fluid was drained. The catheter was removed, and a sterile dressing was applied. A specimen was collected and sent to the laboratory for analysis, as requested by the referring clinician. The patient tolerated the procedure well. A chest x-ray was ordered. US/Thoracentesis W US IMPRESSION: Ultrasound-guided right thoracentesis. Electronically Signed: Dash Shin MD at 15:31 EST ,
[2022-11-05 07:24] LABS: Differential Indicated SCAN CRITERIA MET
[2022-11-05 07:46] LABS: ALB/GLOB Ratio 0.4 RATIO (0.9-2.4); AST(SGOT) 34 U/L (15-37); Alanine Aminotransfer ALT/SGPT 30 U/L (13-56); Albumin, Serum 1.8 g/dL (3.2-5.0); Alkaline Phosphatase 155 U/L (45-117); Anion Gap 6 (5-15); BUN 35 mg/dL (7-18); BUN/Creat Ratio 9.5 RATIO (10-20); Calcium,Total 7.5 mg/dL (8.5-10.1); Chloride 98 mmol/L (98-107); Creatinine, Serum 3.67 mg/dL (0.55-1.02); EST Glomerular Filtration Rate 14 mL/min (>60); Est Glom Filt Rate - Afr Amer 17 mL/min (>60); Estimated Creatinine Clearance 18.31 ml/min; Globulin 4.2 g/dL (2.2-4.2); Glucose 245 mg/dL (74-106); International Normalized Ratio 1.2; Potassium 3.8 mmol/L (3.5-5.1); Prothrombin Time (Protime)PT. 15.1 SECONDS (11.7-14.9); Sodium Level 133 mmol/L (136-145)
[2022-11-05 07:47] LABS: LDH 281 U/L (84-246)
--- NOTE | 2022-11-05 08:47 | PN.RENAL_ITS ---
Documented by User: ANNEMARIE Valverde 11/05/22 09:02 Subjective Subjective Resting in bed, denies any complaints except for dry cough Objective Data Objective Data Vital Signs: Vital Signs Temp Pulse Resp BP Pulse Ox O2 Del Method O2 Flow Rate 97.9 F 61 18 115/54 L 98 Nasal Cannula 3 11/05/22 03:00 11/05/22 03:00 11/05/22 03:00 11/05/22 03:00 11/05/22 03:00 11/05/22 07:40 11/05/22 07:40 Oxygen Flow Rate (L/min) 3 Oxygen Delivery Method Nasal Cannula Weight: 74.6 kg Body Mass Index (BMI) 24.3 Intake & Output: Intake and Output for Last 24 Hours 11/03/22 11/04/22 11/05/22 23:59 23:59 23:59 Intake Total 800 / 800 600 / 600 800 / 800 Output Total 650 / 650 300 / 300 Balance 800 / 800 -50 / -50 500 / 500 Lab / Micro Data Result Diagrams: 11/05/22 07:05 11/05/22 07:05 Labs: Laboratory Results - last 24 hr 11/04/22 08:00: Differential Comment SCANNED 11/04/22 08:00: Sodium 135 L, Potassium 3.4 L, Chloride 99, Carbon Dioxide 29.0, Anion Gap 7, BUN 25 H, Creatinine 3.40 H, Estim Creat Clear Calc 19.77, Est GFR (MDRD) Af Amer 18 L, Est GFR (MDRD) Non-Af 15 L, BUN/Creatinine Ratio 7.4 L, Glucose 159 H, Calcium 7.7 L, Total Bilirubin 1.10 H, AST 44 H, ALT 34, Alkaline Phosphatase 168 H, Total Protein 6.4, Albumin 1.9 L, Globulin 4.5 H, Albumin/Globulin Ratio 0.4 L 11/04/22 10:32: POC Glucose 144 H 11/04/22 16:27: POC Glucose 187 H 11/04/22 21:40: POC Glucose 222 H 11/05/22 06:32: POC Glucose 247 H 11/05/22 07:05: WBC 3.5 L, RBC 2.62 L, Hgb 8.1 L, Hct 24.8 L, MCV 94.7, MCH 30.9, MCHC 32.7, RDW Std Deviation 55.8 H, RDW Coeff of Valentina 16.3 H, Plt Count 75 L, MPV 10.5, Immature Gran % (Auto) 1.100 H, Neut % (Auto) 88.6 H, Lymph % (Auto) 6.6 L, [place] % (Auto) 3.7, Eos % (Auto) 0.0, Baso % (Auto) 0.0, Absolute Neuts (auto) 3.1, Absolute Lymphs (auto) 0.23 L, Nucleated RBC % 0 11/05/22 07:05: Sodium 133 L, Potassium 3.8, Chloride 98, Carbon Dioxide 29.0, Anion Gap 6, BUN 35 H, Creatinine 3.67 H, Estim Creat Clear Calc 18.31, Est GFR (MDRD) Af Amer 17 L, Est GFR (MDRD) Non-Af 14 L, BUN/Creatinine Ratio 9.5 L, Glucose 245 H, Calcium 7.5 L, Total Bilirubin 0.80, AST 34, ALT 30, Alkaline Phosphatase 155 H, Total Protein 6.0 L, Albumin 1.8 L, Globulin 4.2, Albumin/Globulin Ratio 0.4 L 11/05/22 07:05: PT 15.1 H, INR 1.2 11/05/22 07:05: Lactate Dehydrogenase 281 H Physical Exam Narrative Alert and oriented x3, no apparent distress S1, S2, RRR Lung sounds clear anteriorly, dry harsh cough Abdomen soft, nontender No edema to bilateral lower legs or arms Tunneled HD catheter right chest dressing clean, dry and intact Assessment & Plan Assessment/Plan (1) JULIANNE (acute kidney injury): PLAN: -Dialysis requiring JULIANNE superimposed on CKD stage IV in the setting of cirrhosis. Monitoring for renal recovery. No noted renal recovery at this time. Patient has been on outpatient dialysis schedule Saturday. We will plan for dialysis today over 3.5 hours with UF as patient/blood pressure tolerates. Patient may have a new lowered dry weight by time of hospital discharge -Hemoglobin 6 on admission and received PRBC. Today hemoglobin 8.1. Patient has been receiving IV iron at kidney center. She will also be receiving MANINDER -Covid. Was diagnosed when she was at [facility] - History of cirrhosis. As per last nephrology note, she was on list for simultaneous liver and kidney transplant but recently deactivated due to general debility and other illnesses. - currently has NG tube - large right pleural effusion to be evaluated for possible thoracentesis Documented by User: Dr. Pravin Gonsalves MD 11/05/22 15:15 Objective Data Lab / Micro Data Result Diagrams: 11/05/22 07:05 11/05/22 07:05 Assessment & Plan Assessment/Plan (1) JULIANNE (acute kidney injury): PLAN: -Dialysis requiring JULIANNE superimposed on CKD stage IV in the setting of cirrhosis. Monitoring for renal recovery. No noted renal recovery at this time. Patient has been on outpatient dialysis schedule Saturday. We will plan for dialysis today over 3.5 hours with UF as patient/blood pressure tolerates. Patient may have a new lowered dry weight by time of hospital discharge -Hemoglobin 6 on admission and received PRBC. Today hemoglobin 8.1. Patient has been receiving IV iron at kidney center. She will also be receiving MANINDER -Covid. Was diagnosed when she was at [facility] - History of cirrhosis. As per last nephrology note, she was on list for simultaneous liver and kidney transplant but recently deactivated due to general debility and other illnesses. - currently has NG tube - large right pleural effusion to be evaluated for possible thoracentesis Attending addendum patient was seen and examined independently. agree with above
[2022-11-05 09:33] LABS: Platelet Estimate MOD DEC (ADEQ)
[2022-11-05] MEDS: Carvedilol 6.25 MG Tablet PO ×2 (11:00→22:24)
[2022-11-05] MEDS: dexAMETHasone 4 MG Tablet 6 MG PO (11:01)
[2022-11-05] MEDS: Insulin Glargine-YFGN 100 UNIT/ML Pen 10 UNIT SC (11:02)
[2022-11-05] MEDS: guaiFENesin 1,200 MG Tablet 1200 MG PO ×2 (11:03→22:24)
[2022-11-05] MEDS: Pantoprazole Sodium 40 MG Tablet PO (11:04)
[2022-11-05] MEDS: Ursodiol 250 MG Tablet PO ×2 (11:05→22:24)
[2022-11-05] MEDS: Ergocalciferol 1.25 MG (50, 000 UNIT) Capsule PO (11:06)
[2022-11-05] MEDS: Ascorbic Acid 500 MG Tablet PO (11:06)
[2022-11-05] MEDS: rifAXIMin 550 MG Tablet PO ×2 (11:07→22:23)
[2022-11-05] MEDS: LURASIDONE HCL 40 MG TABLET PO (11:13)
--- NOTE | 2022-11-05 11:19 | CASEMGMT ---
Discharge Keg Varnisher This creative services writer sent updates to the [facility] via [facility]. This creative services writer asked Renita to start pre-cert. Kashif MCCALLUM Director [employer]
[2022-11-05 12:00] LABS: Bedside Glucose 211 mg/dL (74-106)
--- NOTE | 2022-11-05 12:08 | CASEMGMT ---
Social work SW spoke to pt and pt confirmed return to [facility]. SW called Renita at [facility] to confirm pt can return. Renita stated pt can return but will need new precert. Updated clinicals to be sent to [facility] via [facility]. RUY Nelson
[2022-11-05 14:00] LABS: Pathologist Review Reviewed
[2022-11-05] MEDS: Lidocaine 1% (20 ml mdv) 20 ML Vial INFILT (14:34)
[2022-11-05 14:47] LABS: Cytology, Body Fluid / CSF SEE PATHOLOGY REPORT
--- NOTE | 2022-11-05 14:50 | RAD_ITS ---
STUDY: X-RAY CHEST REASON FOR EXAM: Female, 52 years old. Pneumothorax -- immediately post thoracentesis TECHNIQUE: AP inspiration and expiration views COMPARISON: Comparison is made with prior study dated 11/03/2022. FINDINGS: The patient is status post right thoracentesis. No evidence of pneumothorax on the immediate post right thoracentesis examination. RAD/Chest Insp/Exp 2 View IMPRESSION: No evidence of pneumothorax following the right thoracentesis. Electronically Signed: Dash Shin MD at 15:18 EST ,
[2022-11-05 15:46] LABS: Body Fluid Mononuclear WBC # 0.047 10^3/uL; Body Fluid Mononuclear WBC % 87.1 %; Body Fluid Polynuclear WBC # 0.007 10^3/uL; Body Fluid Polynuclear WBC % 12.9 %; Body Fluid Total Cells Counted 0.073 10^3/ul; White Blood Count/Body Fluid 0.054 10^3/uL
--- NOTE | 2022-11-05 15:55 | PN.CC_ITS ---
Assessment & Plan Assessment/Plan (1) Pleural effusion, right: (2) COVID-19: (3) Hypoxia: PLAN: Plan RECOMMENDATIONS: 1. Wean oxygen as tolerated 2. Await labs for thoracentesis 3. Repeat chest x-ray in 2 to 4 weeks 4. Potential follow-up at tertiary center regarding transplant candidacy IMPRESSIONS: 1. Right pleural effusion Patient with significant right pleural effusion status postthoracentesis. 2.1 L removed and patient is currently tolerating room air. Patient is COVID- positive, but this appears to be somewhat incidental. Patient will need a chest x-ray in 2 to 4 weeks. If frequent thoracentesis is required, may need to evaluate for transplant versus indwelling catheter. Patient appears to have res ponded well to the thoracentesis. Blood pressures have remained sufficient for dialysis. 2. Acute on chronic anemia Baseline hemoglobin appears to be around 6. Patient has been transfused over this hospitalization. Unclear if Lasix is sufficient. Volume removal with dialysis as necessary. 3. Acute kidney injury on CKD stage IIIb Clinical suspicion for hepatorenal syndrome. Patient does have a history of cirrhosis. Baseline creatinine of 1.8 with presentation of 2.57. Nephrology is following. Patient has had dialysis and tolerating well. 4. Diabetes mellitus type 2/pancytopenia/debility Complicates care, management, recovery and prognosis. Albumin is low, pancytopenia and slightly elevated coagulation studies consistent with underlying liver disease. Subjective Subjective Patient did well overnight. Patient did have a thoracentesis this afternoon just prior to my evaluation. Patient had 2.1 L removed. Patient was on dialysis during my evaluation and was saturating 100% on her 3 L. Patient was moved to room air and saturations were maintained in the upper 90s. Patient did not complain of any pain, but was not very interactive. Objective Data Objective Data Vital Signs: Vital Signs Temp Pulse Resp BP Pulse Ox O2 Del Method O2 Flow Rate 36.4 C L 62 18 128/66 H 100 Nasal Cannula 3 11/05/22 10:45 11/05/22 10:45 11/05/22 10:45 11/05/22 10:45 11/05/22 10:45 11/05/22 10:48 11/05/22 10:48 Oxygen Flow Rate (L/min) 3 Oxygen Delivery Method Nasal Cannula Weight: 74.6 kg Body Mass Index (BMI) 24.3 Intake & Output: Intake and Output for Last 24 Hours 11/03/22 11/04/22 11/05/22 23:59 23:59 23:59 Intake Total 800 / 800 600 / 600 800 / 800 Output Total 650 / 650 300 / 300 Balance 800 / 800 -50 / -50 500 / 500 Lab / Micro Data Attestation: I reviewed the patient's lab results. Result Diagrams: 11/05/22 07:05 11/05/22 07:05 Labs: Laboratory Results - last 24 hr 11/03/22 09:20: Diff Path Review Reviewed 11/04/22 16:27: POC Glucose 187 H 11/04/22 21:40: POC Glucose 222 H 11/05/22 06:32: POC Glucose 247 H 11/05/22 07:05: WBC 3.5 L, RBC 2.62 L, Hgb 8.1 L, Hct 24.8 L, MCV 94.7, MCH 30.9, MCHC 32.7, RDW Std Deviation 55.8 H, RDW Coeff of Valentina 16.3 H, Plt Count 75 L, MPV 10.5, Immature Gran % (Auto) 1.100 H, Neut % (Auto) 88.6 H, Lymph % (Auto) 6.6 L, Kimble % (Auto) 3.7, Eos % (Auto) 0.0, Baso % (Auto) 0.0, Absolute Neuts (auto) 3.1, Absolute Lymphs (auto) 0.23 L, Nucleated RBC % 0, Differential Comment COMMENT, Diff Path Review May foll, Platelet Estimate MOD DEC 11/05/22 07:05: Sodium 133 L, Potassium 3.8, Chloride 98, Carbon Dioxide 29.0, Anion Gap 6, BUN 35 H, Creatinine 3.67 H, Estim Creat Clear Calc 18.31, Est GFR (MDRD) Af Amer 17 L, Est GFR (MDRD) Non-Af 14 L, BUN/Creatinine Ratio 9.5 L, Glucose 245 H, Calcium 7.5 L, Total Bilirubin 0.80, AST 34, ALT 30, Alkaline Phosphatase 155 H, Total Protein 6.0 L, Albumin 1.8 L, Globulin 4.2, Albumin/Globulin Ratio 0.4 L 11/05/22 07:05: PT 15.1 H, INR 1.2 11/05/22 07:05: Lactate Dehydrogenase 281 H 11/05/22 10:43: POC Glucose 211 H Radiography Diagnostic Testing: Radiology Impression Thoracentesis Ultrasound 11/05/22 07:22 IMPRESSION: Ultrasound-guided right thoracentesis. Electronically Signed: Dash Shin MD at 15:31 EST , Chest X-Ray 11/05/22 14:50 IMPRESSION: No evidence of pneumothorax following the right thoracentesis. Electronically Signed: Dash Shin MD at 15:18 EST , Physical Exam Const oriented x3 and no apparent distress Constitutional Narrative: Tired, but does wake up briefly HEENT normocephalic, head/scalp atraumatic, hearing grossly normal bilaterally and moist oral mucous membranes Head and Scalp: normocephalic Mouth: oral and palatal mucosa normal Eyes PERRL, EOMs intact bilaterally and conjunctivae normal Neck no lymphadenopathy and supple Chest inspection of chest normal Resp normal respiratory effort and no use of accessory muscles Resp Narrative: No dullness to percussion. Auscultation: Negative for rales, rhonchi or wheezes Cardio regular rate, regular rhythm, S1 normal heart sound, S2 normal heart sound, no murmurs, no rub and no gallops GI normal to inspection, nondistended, normoactive bowel sounds, soft to palpation, non-tender and non-distended GI Narrative: NG tube in situ Extremity normal to inspection, full ROM and no clubbing, cyanosis or edema Neuro oriented x3, CN's II-XII intact bilaterally and moves all extremities Sensorium / Orientation: awake and alert Psych Mood & Affect: flat affect Charges/Coding Visit Charges Inpatient E&M: 88891 Subs Hosp L2
[2022-11-05 16:04] LABS: Appearance/Body Fluid CLEAR; Auto B Fluid Analyzer BKGD Ct COUNTS W/IN LIMITS (W/IN LIMITS); Color/Body Fluid YELLOW; Red Cell Count/Body Fluid 116 /mm3; Source- Body Fluid THORACENTESIS
[2022-11-05 16:06] LABS: Glucose, Body Fluid 232 mg/dL (40-70); LDH,Body Fluid 75 Units/l (Not Establ.); Protein, Body Fluid 1.3 g/dL (Not Establ.)
--- NOTE | 2022-11-05 16:09 | PCM.PN.HOSP ---
Subjective Subjective Patient notes that she is overall feeling better. States her coughing is improved. Reports she had a thoracentesis approximately 2 weeks ago and is okay with recurrent thoracentesis today. I explained that we will get the fluid removed and see what her oxygen levels do following. As I would like to try to discharge her home on room air if possible. She indicates she has been on oxygen as needed at the facility. She is currently on a waiting list for a dual liver and kidney transplant. Objective Data Objective Data Vital Signs: Vital Signs Temp Pulse Resp BP Pulse Ox O2 Del Method O2 Flow Rate 97.5 F L 62 18 128/66 H 100 Nasal Cannula 3 11/05/22 10:45 11/05/22 10:45 11/05/22 10:45 11/05/22 10:45 11/05/22 10:45 11/05/22 10:48 11/05/22 10:48 Oxygen Flow Rate (L/min) 3 Oxygen Delivery Method Nasal Cannula Weight: 74.6 kg Body Mass Index (BMI) 24.3 Intake & Output: Intake and Output for Last 24 Hours 11/03/22 11/04/22 11/05/22 23:59 23:59 23:59 Intake Total 800 / 800 600 / 600 800 / 800 Output Total 650 / 650 300 / 300 Balance 800 / 800 -50 / -50 500 / 500 Lab / Micro Data Result Diagrams: 11/05/22 07:05 11/05/22 07:05 Labs: Laboratory Results - last 24 hr 11/03/22 09:20: Diff Path Review Reviewed 11/04/22 16:27: POC Glucose 187 H 11/04/22 21:40: POC Glucose 222 H 11/05/22 06:32: POC Glucose 247 H 11/05/22 07:05: WBC 3.5 L, RBC 2.62 L, Hgb 8.1 L, Hct 24.8 L, MCV 94.7, MCH 30.9, MCHC 32.7, RDW Std Deviation 55.8 H, RDW Coeff of Valentina 16.3 H, Plt Count 75 L, MPV 10.5, Immature Gran % (Auto) 1.100 H, Neut % (Auto) 88.6 H, Lymph % (Auto) 6.6 L, [place] % (Auto) 3.7, Eos % (Auto) 0.0, Baso % (Auto) 0.0, Absolute Neuts (auto) 3.1, Absolute Lymphs (auto) 0.23 L, Nucleated RBC % 0, Differential Comment COMMENT, Diff Path Review March foll, Platelet Estimate MOD DEC 11/05/22 07:05: Sodium 133 L, Potassium 3.8, Chloride 98, Carbon Dioxide 29.0, Anion Gap 6, BUN 35 H, Creatinine 3.67 H, Estim Creat Clear Calc 18.31, Est GFR (MDRD) Af Amer 17 L, Est GFR (MDRD) Non-Af 14 L, BUN/Creatinine Ratio 9.5 L, Glucose 245 H, Calcium 7.5 L, Total Bilirubin 0.80, AST 34, ALT 30, Alkaline Phosphatase 155 H, Total Protein 6.0 L, Albumin 1.8 L, Globulin 4.2, Albumin/Globulin Ratio 0.4 L 11/05/22 07:05: PT 15.1 H, INR 1.2 11/05/22 07:05: Lactate Dehydrogenase 281 H 11/05/22 10:43: POC Glucose 211 H 11/05/22 14:40: Fluid Glucose 232 H, Fluid Total Protein 1.3, Fluid LDH 75 11/05/22 14:40: Fluid WBC 0.054, Fluid Tot Cell Count 0.073 H, Fld Polynuclear WBCs # 0.007, Fld Polynuclear WBCs % 12.9, Fluid Mononuclear WBCs 0.047, Fld Mononuclear WBCs % 87.1 Radiography Diagnostic Testing: Radiology Impression Thoracentesis Ultrasound 11/05/22 07:22 IMPRESSION: Ultrasound-guided right thoracentesis. Electronically Signed: Dash Shin MD at 15:31 EST , Chest X-Ray 11/05/22 14:50 IMPRESSION: No evidence of pneumothorax following the right thoracentesis. Electronically Signed: Dash Shin MD at 15:18 EST , Physical Exam Const alert, oriented x3 and no apparent distress Constitutional Narrative: Middle-aged white female sitting up in the chair at the bedside, appears much older than stated age, appears nontoxic and very pleasant HEENT head/scalp atraumatic, moist oral mucous membranes and oropharynx normal HEENT Narrative: Dobbhoff in nares Resp normal respiratory effort, no retractions and no use of accessory muscles Resp Narrative: Diminished bilaterally but markedly diminished on right side from base to about three quarters [address] the way to the apex, no adventitious sounds Auscultation: Negative for crackles, rhonchi or wheezes Cardio regular rate, regular rhythm, S1 normal heart sound, S2 normal heart sound, no murmurs, no rub, no gallops and no clicks GI normal to inspection, nondistended, normoactive bowel sounds, soft to palpation and non-tender Extremity no clubbing, cyanosis or edema Extremity Narrative: 2+ pedal pulses Neuro oriented x3, moves all extremities and no focal motor deficits Neuro Narrative: Generalized weakness but no focal deficits Speech: speech normal Assessment & Plan Assessment/Plan (1) Pleural effusion, right: (2) Hypoxia: (3) COVID-19: (4) JULIANNE (acute kidney injury): PLAN: Plan Hypoxia with large right pleural effusion/COVID-19 -We will obtain thoracentesis -Trial off oxygen after thoracentesis and will perform ambulatory pulse ox prior to discharge -May need Pleurx catheter if ongoing thoracenteses need to be performed -This will likely recur until patient gets transplant -Do not anticipate that effusion is related to COVID Acute COVID-19 infection -Decadron to complete a total of 10-day treatment -Tested positive for COVID on 11/01/2022 and will need a total of 10 days isolation through 11/11/2022 -Clinically much better overall Acute on chronic anemia -Hemoglobin was 6 on admission -Received 1 unit packed red blood cells and hemoglobin now up to 8.1 from 9.8 yesterday -No obvious signs of bleeding -Check Hemoccult stool she would be high risk for GI bleed with history of liver disease -Curly CBC in a.m. 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 -Neurology is following -Patient currently on transplant list for simultaneous liver kidney Generalized weakness -Overall improving -Clinically feels better -Continue PT/OT consultation Pancytopenia -Chronic related to her cirrhosis plus acute COVID infection -Continue to monitor DM-2 -Continue Lantus but increase from 10 to 20 units while on steroids -Sugars markedly elevated this morning on fasting at 245 likely related to Decadron use -Sliding scale -Accu-Cheks as ordered Hypertension -Continue carvedilol Vitamin D deficiency -Continue ergocalciferol Hypothyroidism -cont Levothyroxine Cirrhosis -We will hold home diuretics for now but plan on restarting in the next 24 hours if okay with nephrology -Continue rifaximin -Continue lactulose Bipolar disorder -Continue medications DVT prophylaxis -Continue SCDs -Chemoprophylaxis on hold secondary to anemia and thrombocytopenia on presentation CODE STATUS -full code Charges/Coding Visit Charges Inpatient E&M: 67645 Subs Hosp L2
--- NOTE | 2022-11-05 16:29 | EX.PCM.CON.G ---
HPI Consult Data Date of Consult: 11/05/22 HPI Narrative Reason for Consultation: Anemia HPI Narrative: ANA GARCÍA, is a 52 F who presents from home with worsening lethargy fatigue and weakness.? She has a history of autoimmune hepatitis with cirrhosis and portal gastropathy, possible esophageal varices, recurrent encephalopathy.? When she came into the ED she was found to be dehydrated, encephalopathic and short of breath.? I was consulted today to see the patient due to decrease in hemoglobin.? She has a history of pancytopenia with a baseline hemoglobin around 10 and her hemoglobin was 6. She was transfused 4 units of packed red blood cells and her hemoglobin went up to 9.8. Is slowly drifted back down to 8.6. Also her INR is 1.4.? Her BUN/creatinine ratio is also elevated at 38 1.87 with a baseline creatinine of 1.? Her white blood cell count is 2.2 and platelet count is 43. ?SHe tested positive for covid 6 days ago. SHe was seen in the ED for repositioning of her PEG tube which she had pulled out yesterday. However, she pulled it out again today. She has just not been feeling well since she tested positive for covid. She denied any fever chills, cough, chest pain, palpitations, dizziness, nausea, vomiting or diarrhea. Review of systems is otherwise negative. CXR showed increase in large right volume pleural fluid with persistent compressive atelectasis of the right lower lobe, right middle lobe and partial atelectasis of right upper lobe. 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 She underwent removal of 2.1 L of serosanguineous fluid from her right lung. [facility] Medical History (Updated 11/06/22 @ 16:[address] Day Friend, DO) Acute on chronic renal insufficiency Anemia Autoimmune hepatitis Bacteremia due to methicillin resistant Staphylococcus epidermidis Bipolar disorder CHI (closed head injury) Chronic pain Chronic renal insufficiency, stage III (moderate) Cirrhosis of liver Debility Depression Diabetes mellitus, type 2 Encephalopathy acute Essential hypertension Reilly's thyroiditis Hepatic encephalopathy Hepatitis Hypothyroidism Kidney disease MRSA bacteremia Myocardial infarct Non-smoker On home oxygen therapy Pancreatitis Pancytopenia Peripheral neuropathy Right lower lobe pneumonia Schizoaffective disorder Severe sepsis Splenomegaly Stage 3b chronic kidney disease (CKD) Weakness Home Medications rifaximin 550 mg tablet (Xifaxan) 550 mg PO BID IBS 11/04/17 [History Last Taken 06/14/22] pantoprazole 40 mg tablet,delayed release 40 mg PO DAILY GERD 03/20/21 [History Last Taken 06/14/22] sertraline 50 mg tablet 75 mg PO QHS DEPRESSION 03/20/21 [History Last Taken 06/14/22] sucralfate 1 gram tablet (Carafate) 1 g PO QHS STOMACH 03/20/21 [History Last Taken 06/14/22] ursodiol 300 mg capsule 300 mg PO BID LIVER 04/25/21 [History Last Taken 06/14/22] carbamazepine 100 mg tablet,extended release,12 hr 100 mg PO BID bipolar 04/29/21 [History Last Taken 06/14/22] zinc 50 mg tablet 50 mg PO DAILY SUPPLEMENT 09/18/21 [History Last Taken 06/14/22] carvedilol 3.125 mg tablet 6.25 mg PO BID HEART 03/23/22 [History Last Taken 06/14/22] lurasidone 40 mg tablet 40 mg PO LUNCH MOOD 04/16/22 [History Last Taken 06/14/22] torsemide 20 mg tablet 80 mg PO DAILY diuretic 04/16/22 [History Last Taken 06/14/22] ergocalciferol (vitamin D2) 1,250 mcg (50,000 unit) capsule (Vitamin D2) 1,250 unit PO MOTH SUPPLMENT 05/14/22 [History Last Taken 06/14/22] insulin lispro 100 unit/mL subcutaneous pen (Humalog KwikPen (U-100) Insulin) 7 unit subcut ACHS diabetes 05/14/22 [History Last Taken 06/14/22] levothyroxine 75 mcg tablet 75 mcg PO DAILY THYROID 05/14/22 [History Last Taken 06/14/22] ondansetron 4 mg disintegrating tablet 8 mg PO Q8H PRN Nausea And Vomiting 05/14/22 [History Last Taken 06/13/22] lactulose 20 gram/30 mL oral solution 20 g PO BID liver failure 06/11/22 [History Last Taken 06/14/22] acetaminophen 500 mg tablet 500 mg PO Q6H PRN Pain 11/03/22 [History Last Taken Unknown] ascorbic acid (vitamin C) 500 mg tablet 500 mg PO DAILY supplement 11/03/22 [History Last Taken Unknown] bisacodyl 10 mg rectal suppository 10 mg [place] DAILY PRN Constipation 11/03/22 [History Last Taken Unknown] darbepoetin sree in polysorbat 40 mcg/0.4 mL in polysorbate injection syringe 40 mcg subcut QWEEK bone marrow 11/03/22 [History Last Taken Unknown] dextromethorphan HBr 10 mg/15 mL oral syrup 10 mg PO Q6H PRN Cough 11/03/22 [History Last Taken Unknown] insulin degludec 100 unit/mL (3 mL) subcutaneous pen (Tresiba FlexTouch U-100 insulin) 10 unit subcut DAILY diabetes 11/03/22 [History Last Taken Unknown] insulin glargine 100 unit/mL (3 mL) subcutaneous pen (Lantus Solostar U-100 Insulin) 10 unit subcut DAILY DM2 11/03/22 [History Last Taken Unknown] insulin lispro 100 unit/mL subcutaneous pen (Humalog KwikPen (U-100) Insulin) See Protocol subcut ACHS diabetes 11/03/22 [History Last Taken Unknown] magnesium hydroxide 400 mg/5 mL oral suspension (Milk of Magnesia) 2,400 mg PO DAILY PRN Constipation 11/03/22 [History Last Taken Unknown] Allergy/AdvReac Type Severity Reaction Status Date / Time adhesive Allergy Rash Verified 11/03/22 07:54 escitalopram oxalate Allergy blindness Verified 11/03/22 07:54 [From Lexapro] Fish Containing Products Allergy Other Verified 11/03/22 07:54 gabapentin [From Neurontin] Allergy Alan Verified 11/03/22 07:54 Jez's Syndrome lamotrigine [From Lamictal] Allergy Blindness Verified 11/03/22 07:54 topiramate [From Topamax] Allergy Other Verified 11/03/22 07:54 sour cream AdvReac Severe Anaphylaxis Uncoded 11/02/22 12:39 Preservatives AdvReac Intermediate passed Uncoded 11/02/22 12:39 out, lungs deflated Family History Father CVA (cerebral vascular accident) Myocardial infarction Heart disease CAD (coronary artery disease) Grandmother CHF (congestive heart failure) Sister Hypertension Mother Heart disease Surgical History H/O: hysterectomy History of abdominal paracentesis (10/2019) History of appendectomy History of cholecystectomy S/P TIPS (transjugular intrahepatic portosystemic shunt) Social History household members: significant other housing: house Smoking Status: Never smoker alcohol intake: never details: Unknown substance use type: does not use ROS ROS Narrative negative except above Lab / Micro Data Result Diagrams: 11/06/22 04:58 11/06/22 04:58 Labs: Laboratory Results - last 24 hr 11/05/22 07:05: Diff Path Review Reviewed 11/05/22 14:40: Fluid Source THORACENTESIS, Fluid Color YELLOW, Fluid Appearance CLEAR, Fluid RBC 116, Fluid Neutrophils 8, Fluid Lymphocytes 29, Fluid Monocytes 35, Fluid Macrophages 24, Fld Mesothelial Cells 3, Fluid Other Cells 1, Fl Pathologist Comment Reviewed, Fluid Comment 2 SEE COMMENT 11/05/22 16:12: POC Glucose 185 H 11/05/22 22:23: POC Glucose 242 H 11/06/22 04:58: WBC 4.3 L, RBC 2.40 L, Hgb 7.4 L, Hct 23.0 L, MCV 95.8, MCH 30.8, MCHC 32.2, RDW Std Deviation 57.1 H, RDW Coeff of Valentina 16.3 H, Plt Count 65 L, MPV 10.1, Immature Gran % (Auto) 0.500, Neut % (Auto) 87.1 H, Lymph % (Auto) 6.6 L, [place] % (Auto) 5.6, Eos % (Auto) 0.2, Baso % (Auto) 0.0, Absolute Neuts (auto) 3.7, Absolute Lymphs (auto) 0.28 L, Nucleated RBC % 0, Differential Comment SCANNED, Diff Path Review Reviewed 11/06/22 04:58: Sodium 138, Potassium 3.6, Chloride 103, Carbon Dioxide 29.0, Anion Gap 6, BUN 16, Creatinine 2.26 H, Estim Creat Clear Calc 29.74, Est GFR (MDRD) Af Amer 29 L, Est GFR (MDRD) Non-Af 24 L, BUN/Creatinine Ratio 7.1 L, Glucose 302 H, Calcium 7.5 L 11/06/22 06:33: POC Glucose 267 H 11/06/22 11:39: POC Glucose 162 H Radiology Impression Chest X-Ray 11/06/22 05:55 IMPRESSION: There is blunting of the right costophrenic angle with mild increased markings at the right lung base suggestive of atelectasis. Electronically Signed: Dash Shin MD at 12:37 EST , Assessment & Plan Assessment/Plan (1) Upper GI bleed: PLAN: Acute blood loss anemia. She will need an upper endoscopy as GI bleed can cause worsening of liver disease resulting in worsening encephalopathy. Charges/Coding Visit Charges Inpatient E&M: 97980 Init Hosp L2
[2022-11-05 16:45] LABS: Bedside Glucose 185 mg/dL (74-106)
[2022-11-05 17:09] LABS: Lymphocytes 29 %; Macrophages 24 %; Mesothelial Cells 3 %; Monocytes 35 %; Neutrophil (Segs) 8 %; Other Cell Type/BF 1 %
[2022-11-05 17:10] LABS: Body Fluid QC Type(s) BF3Q
[2022-11-05] MEDS: Sertraline 50 MG Tablet 75 MG PO (22:23)
[2022-11-05] MEDS: Sucralfate 1 GM Tablet PO (22:24)
[2022-11-05] MEDS: Lactulose 20 GM/30 ML UDC PO (22:24)
[2022-11-05] MEDS: MELATONIN 3 MG TABLET PO (22:24)
[2022-11-05 22:50] LABS: Bedside Glucose 242 mg/dL (74-106)
[2022-11-06] VITALS (9 sets, daily range): BP systolic 99–146; BP diastolic 45–64; PULSE 62–74; RESP 16–20; TEMP 36.6–36.8; O2SAT 95–100; BMI 23.8
--- NOTE | 2022-11-06 05:55 | RAD_ITS ---
STUDY: X-RAY CHEST REASON FOR EXAM: Female, 52 years old. R effusion TECHNIQUE: Single AP portable view of the chest. COMPARISON: Comparison is made with prior examination dated 11/05/2022. FINDINGS: A right-sided dialysis catheter is seen with the tip in the right atrium. A feeding tube is seen with the tip below left hemidiaphragm. A TIPS catheter is seen in the right upper quadrant. Blunting of the right costophrenic angle with mild increased markings at the right lung base suggestive of atelectasis. Normal size heart. Normal mediastinum and sonny. Normal visualized pulmonary arteries. Normal visualized aortic arch and descending thoracic aorta. Normal visualized thoracic spine. Normal visualized ribs, clavicles, and shoulders. RAD/Chest 1 View (Portable) IMPRESSION: There is blunting of the right costophrenic angle with mild increased markings at the right lung base suggestive of atelectasis. Electronically Signed: Dash Shin MD at 12:37 EST ,
[2022-11-06 06:33] LABS: Absolute Lymphocyte Count 0.28 X10^3/uL (0.83-4.51); Absolute Neutrophil Count 3.7 X10^3/uL (2.0-7.7); Eosinophil# 0.01 X10^3/uL; Eosinophils% 0.2 % (0-5); Hemoglobin 7.4 g/dL (12.0-15.0); Lymphocyte # 0.28 X10^3/ul (0.83-4.51); Lymphocyte % 6.6 % (19-41); Mean Corp Hgb Conc 32.2 g/dL (32-36); Mean Corpuscular Hgb 30.8 pg (27.0-32.0); Mean Corpuscular Volume 95.8 fL (81-99); Mean Platelet Vol. 10.1 fl (6.2-12.0); Monocyte# 0.24 X10^3/uL; Monocyte% 5.6 % (0-10); NRBC Flagged by Analyzer 0 % (0-5); Neutrophil # 3.72 X10^3/uL (2.7-7.7); Neutrophil % 87.1 % (47-70); POSITIVE COUNT YES; POSITIVE DIFFERENTIAL YES; Platelet Count 65 K/mm3 (150-450); RBC Distribution Width CV 16.3 % (11.6-14.6); RBC Distribution Width SD 57.1 fl (35.1-43.9); White Blood Count 4.3 K/mm3 (4.4-11.0)
[2022-11-06] MEDS: Levothyroxine 75 MCG Tablet PO (06:34)
[2022-11-06] MEDS: Insulin Lispro 100 UNIT/ML INSULN.PEN SC ×2 (06:34→21:44)
[2022-11-06 06:40] LABS: Differential Indicated SCAN CRITERIA MET
[2022-11-06 06:55] LABS: Anion Gap 6 (5-15); BUN 16 mg/dL (7-18); BUN/Creat Ratio 7.1 RATIO (10-20); Calcium,Total 7.5 mg/dL (8.5-10.1); Chloride 103 mmol/L (98-107); Creatinine, Serum 2.26 mg/dL (0.55-1.02); EST Glomerular Filtration Rate 24 mL/min (>60); Est Glom Filt Rate - Afr Amer 29 mL/min (>60); Estimated Creatinine Clearance 29.74 ml/min; Glucose 302 mg/dL (74-106); Potassium 3.6 mmol/L (3.5-5.1); Sodium Level 138 mmol/L (136-145)
[2022-11-06 06:58] LABS: Differential Comment SCANNED
[2022-11-06 07:06] LABS: Bedside Glucose 267 mg/dL (74-106)
--- NOTE | 2022-11-06 11:28 | CASEMGMT ---
Discharge Community Assistant Renita reached out. Pre-cert has been obtained. MARIANA Hernandez notified. Kashif MCCALLUM Scalder
[2022-11-06] MEDS: Carvedilol 6.25 MG Tablet PO ×2 (11:57→21:47)
[2022-11-06] MEDS: 0.9% Saline Lock 10 ML Syringe IV (12:16)
[2022-11-06] MEDS: Ondansetron 4 MG/2 ML Vial IV ×2 (12:16→19:05)
[2022-11-06 12:41] LABS: Bedside Glucose 162 mg/dL (74-106)
[2022-11-06 13:30] LABS: Pathologist Review Reviewed
[2022-11-06 13:30] LABS: Pathologist Review Reviewed
[2022-11-06 13:36] LABS: Pathologist Comment/Body Fluid Reviewed
--- NOTE | 2022-11-06 14:38 | PN.CC_ITS ---
Assessment & Plan Assessment/Plan (1) Pleural effusion, right: (2) COVID-19: (3) Hypoxia: PLAN: Plan RECOMMENDATIONS: 1. Encourage incentive spirometer 2. Walking oximetry prior to discharge 3. Repeat chest x-ray in 2 to 4 weeks 4. Potential follow-up at tertiary center regarding transplant candidacy IMPRESSIONS: 1. Right pleural effusion Patient with significant right pleural effusion status postthoracentesis. 2.1 L removed and patient is currently tolerating room air. Patient is COVID- positive, but this appears to be somewhat incidental. Chest x-ray today shows slight blunting the right costophrenic angle, which may be secondary to atelectasis. Encourage incentive spirometer. Patient will need a chest x-ray in 2 to 4 weeks. If frequent thoracentesis is required, may need to evaluate for transplant versus indwelling catheter. Patient appears to have responded well to the thoracentesis. Blood pressures have remained sufficient for dialysis. Okay to discharge from a pulmonary perspective 2. Acute on chronic anemia Baseline hemoglobin appears to be around 6. Patient has been transfused over this hospitalization. Unclear if Lasix is sufficient. Volume removal with dialysis as necessary. 3. Acute kidney injury on CKD stage IIIb Clinical suspicion for hepatorenal syndrome. Patient does have a history of cirrhosis. Baseline creatinine of 1.8 with presentation of 2.57. Nephrology is following. Patient has had dialysis and tolerating well. 4. Diabetes mellitus type 2/pancytopenia/debility Complicates care, management, recovery and prognosis. Albumin is low, pancytopenia and slightly elevated coagulation studies consistent with underlying liver disease. Subjective Subjective Patient did well overnight. Patient reports subjective improvement in dyspnea following thoracentesis yesterday. Patient has been able to be weaned to room air. Patient still reports some coughing with deep inhalation. Objective Data Objective Data Vital Signs: Vital Signs Temp Pulse Resp BP Pulse Ox O2 Del Method O2 Flow Rate 36.6 C 65 16 137/61 H 97 Nasal Cannula 1 11/06/22 11:44 11/06/22 11:44 11/06/22 11:44 11/06/22 11:44 11/06/22 11:44 11/06/22 11:59 11/06/22 11:59 FiO2 1 11/06/22 11:44 Oxygen Flow Rate (L/min) 1 Oxygen Delivery Method [4] Room Air Oxygen Delivery Method [3] Room Air Oxygen Delivery Method [2] Room Air Oxygen Delivery Method [1 ( Room Air Initial Baseline)] Oxygen Delivery Method Nasal Cannula Weight: 73 kg Body Mass Index (BMI) 23.8 Intake & Output: Intake and Output for Last 24 Hours 11/04/22 11/05/22 11/06/22 23:59 23:59 23:59 Intake Total 600 / 600 800 / 950 300 / 300 Output Total 650 / 650 2400 / 2400 50 / 50 Balance -50 / -50 -1600 / -1450 250 / 250 Lab / Micro Data Attestation: I reviewed the patient's lab results. Lab results narrative: Thoracentesis labs are consistent with a transudate etiology. Result Diagrams: 11/06/22 04:58 11/06/22 04:58 Labs: Laboratory Results - last 24 hr 11/05/22 07:05: Diff Path Review Reviewed 11/05/22 14:40: Fluid Glucose 232 H, Fluid Total Protein 1.3, Fluid LDH 75 11/05/22 14:40: Fluid Source THORACENTESIS, Fluid Color YELLOW, Fluid Appearance CLEAR, Fluid WBC 0.054, Fluid RBC 116, Fluid Tot Cell Count 0.073 H, Fld Polynuclear WBCs # 0.007, Fld Polynuclear WBCs % 12.9, Fluid Mononuclear WBCs 0.047, Fld Mononuclear WBCs % 87.1, Fluid Neutrophils 8, Fluid Lymphocytes 29, Fluid Monocytes 35, Fluid Macrophages 24, Fld Mesothelial Cells 3, Fluid Other Cells 1, Fl Pathologist Comment Reviewed, Fluid Comment 2 SEE COMMENT 11/05/22 16:12: POC Glucose 185 H 11/05/22 22:23: POC Glucose 242 H 11/06/22 04:58: WBC 4.3 L, RBC 2.40 L, Hgb 7.4 L, Hct 23.0 L, MCV 95.8, MCH 30.8, MCHC 32.2, RDW Std Deviation 57.1 H, RDW Coeff of Valentina 16.3 H, Plt Count 65 L, MPV 10.1, Immature Gran % (Auto) 0.500, Neut % (Auto) 87.1 H, Lymph % (Auto) 6.6 L, [place] % (Auto) 5.6, Eos % (Auto) 0.2, Baso % (Auto) 0.0, Absolute Neuts (auto) 3.7, Absolute Lymphs (auto) 0.28 L, Nucleated RBC % 0, Differential Comment SCANNED, Diff Path Review Reviewed 11/06/22 04:58: Sodium 138, Potassium 3.6, Chloride 103, Carbon Dioxide 29.0, Anion Gap 6, BUN 16, Creatinine 2.26 H, Estim Creat Clear Calc 29.74, Est GFR (MDRD) Af Amer 29 L, Est GFR (MDRD) Non-Af 24 L, BUN/Creatinine Ratio 7.1 L, Glucose 302 H, Calcium 7.5 L 11/06/22 06:33: POC Glucose 267 H 11/06/22 11:39: POC Glucose 162 H Radiography Diagnostic Testing: Radiology Impression Thoracentesis Ultrasound 11/05/22 07:22 IMPRESSION: Ultrasound-guided right thoracentesis. Electronically Signed: Dash Shin MD at 15:31 EST , Chest X-Ray 11/05/22 14:50 IMPRESSION: No evidence of pneumothorax following the right thoracentesis. Electronically Signed: Dash Shin MD at 15:18 EST , Chest X-Ray 11/06/22 05:55 IMPRESSION: There is blunting of the right costophrenic angle with mild increased markings at the right lung base suggestive of atelectasis. Electronically Signed: Dash Shin MD at 12:37 EST , Physical Exam Const alert, oriented x3 and no apparent distress Constitutional Narrative: No conversational dyspnea. Slightly slow to respond. HEENT normocephalic, head/scalp atraumatic, hearing grossly normal bilaterally and m oist oral mucous membranes Eyes PERRL, EOMs intact bilaterally and conjunctivae normal Neck no lymphadenopathy and supple Chest inspection of chest normal Resp normal respiratory effort, no retractions and no use of accessory muscles Resp Narrative: No dullness to percussion. Auscultation: diminished lung sounds right; Negative for rhonchi or wheezes Cardio regular rate, regular rhythm, S1 normal heart sound, S2 normal heart sound, no murmurs, no rub and no gallops GI normal to inspection, nondistended, normoactive bowel sounds, soft to palpation, non-tender and non-distended GI Narrative: NG tube in situ Extremity normal to inspection, full ROM and no clubbing, cyanosis or edema Neuro oriented x3, CN's II-XII intact bilaterally and moves all extremities Neuro Narrative: confused, lethargic Sensorium / Orientation: awake and alert Psych Mood & Affect: flat affect Charges/Coding Visit Charges Inpatient E&M: 47394 Subs Hosp L2
--- NOTE | 2022-11-06 15:13 | EKG12_ITS ---
Test Reason : CHEST PAIN Blood Pressure : / mmHG Vent. Rate : 072 BPM Atrial Rate : 072 BPM P-R Int : 174 ms QRS Dur : 120 ms QT Int : 438 ms P-R-T Axes : 021 -36 067 degrees QTc Int : 479 ms Normal sinus rhythm Left axis deviation Left ventricular hypertrophy with QRS widening Abnormal ECG Confirmed by PAM ZAMBRANO, RANCHO ([id number]), manager editorial NORA MENDES ([id number]) on 11/07/2022 10:51:01 AM Referred By: MEGHAN Confirmed By:RANCHO OROZCO MD
--- NOTE | 2022-11-06 15:40 | PN.HOSP_ITS ---
Subjective Subjective No issues overnight. Breathing is better. I was able to decrease her oxygen to room air when I was at the bedside and she held saturations between 93 and 94% despite her COVID-19 infection. Over 2 L removed from right lung. Her hemoglobin has dropped and I discussed with her the need for probable repeat Curly EGD to reevaluate her stomach and esophagus. She is agreeable to this and Dr. Davis has been consulted. Objective Data Objective Data Vital Signs: Vital Signs Temp Pulse Resp BP Pulse Ox O2 Del Method O2 Flow Rate 97.8 F 65 16 137/61 H 97 Nasal Cannula 2 11/06/22 11:44 11/06/22 11:44 11/06/22 11:44 11/06/22 11:44 11/06/22 11:44 11/06/22 11:59 11/06/22 14:45 FiO2 1 11/06/22 11:44 Oxygen Flow Rate (L/min) 2 Oxygen Delivery Method [4] Room Air Oxygen Delivery Method [3] Room Air Oxygen Delivery Method [2] Room Air Oxygen Delivery Method [1 ( Room Air Initial Baseline)] Oxygen Delivery Method Nasal Cannula Weight: 73 kg Body Mass Index (BMI) 23.8 Intake & Output: Intake and Output for Last 24 Hours 11/04/22 11/05/22 11/06/22 23:59 23:59 23:59 Intake Total 600 / 600 800 / 950 300 / 300 Output Total 650 / 650 2400 / 2400 50 / 50 Balance -50 / -50 -1600 / -1450 250 / 250 Lab / Micro Data Result Diagrams: 11/06/22 04:58 11/06/22 04:58 Labs: Laboratory Results - last 24 hr 11/05/22 07:05: Diff Path Review Reviewed 11/05/22 14:40: Fluid Glucose 232 H, Fluid Total Protein 1.3, Fluid LDH 75 11/05/22 14:40: Fluid Source THORACENTESIS, Fluid Color YELLOW, Fluid Appearance CLEAR, Fluid WBC 0.054, Fluid RBC 116, Fluid Tot Cell Count 0.073 H, Fld Polynuclear WBCs # 0.007, Fld Polynuclear WBCs % 12.9, Fluid Mononuclear WBCs 0.047, Fld Mononuclear WBCs % 87.1, Fluid Neutrophils 8, Fluid Lymphocytes 29, Fluid Monocytes 35, Fluid Macrophages 24, Fld Mesothelial Cells 3, Fluid Other Cells 1, Fl Pathologist Comment Reviewed, Fluid Comment 2 SEE COMMENT 11/05/22 16:12: POC Glucose 185 H 11/05/22 22:23: POC Glucose 242 H 11/06/22 04:58: WBC 4.3 L, RBC 2.40 L, Hgb 7.4 L, Hct 23.0 L, MCV 95.8, MCH 30.8, MCHC 32.2, RDW Std Deviation 57.1 H, RDW Coeff of Valentina 16.3 H, Plt Count 65 L, MPV 10.1, Immature Gran % (Auto) 0.500, Neut % (Auto) 87.1 H, Lymph % (Auto) 6.6 L, [place] % (Auto) 5.6, Eos % (Auto) 0.2, Baso % (Auto) 0.0, Absolute Neuts (auto) 3.7, Absolute Lymphs (auto) 0.28 L, Nucleated RBC % 0, Differential Comment SCANNED, Diff Path Review Reviewed 11/06/22 04:58: Sodium 138, Potassium 3.6, Chloride 103, Carbon Dioxide 29.0, An ion Gap 6, BUN 16, Creatinine 2.26 H, Estim Creat Clear Calc 29.74, Est GFR (MDRD) Af Amer 29 L, Est GFR (MDRD) Non-Af 24 L, BUN/Creatinine Ratio 7.1 L, Glucose 302 H, Calcium 7.5 L 11/06/22 06:33: POC Glucose 267 H 11/06/22 11:39: POC Glucose 162 H Radiography Diagnostic Testing: Radiology Impression Chest X-Ray 11/06/22 05:55 IMPRESSION: There is blunting of the right costophrenic angle with mild increased markings at the right lung base suggestive of atelectasis. Electronically Signed: Dash Shin MD at 12:37 EST , Physical Exam Const alert, oriented x3 and no apparent distress Constitutional Narrative: Middle-aged white female sitting up in bed, appears much older than stated age, appears nontoxic and very pleasant Orientation / Consciousness: lethargic HEENT normocephalic, head/scalp atraumatic, hearing grossly normal bilaterally, moist oral mucous membranes and oropharynx normal HEENT Narrative: [place]obbhoff in nares Resp normal respiratory effort, no retractions, no use of accessory muscles and clear to auscultation bilaterally Resp Narrative: Improved aeration on the right side Auscultation: Negative for crackles, rhonchi or wheezes Cardio regular rate, regular rhythm, S1 normal heart sound, S2 normal heart sound, no murmurs, no rub, no gallops and no clicks GI normal to inspection, nondistended, normoactive bowel sounds, soft to palpation, non-tender and non-distended Extremity no clubbing, cyanosis or edema Extremity Narrative: 2+ pedal pulses Neuro oriented x3, moves all extremities and no focal motor deficits Neuro Narrative: Generalized weakness but no focal deficits Speech: speech normal Psych affect normal Assessment & Plan Assessment/Plan (1) Pleural effusion, right: (2) Hypoxia: (3) COVID-19: (4) JULIANNE (acute kidney injury): (5) Acute on chronic anemia: (6) Upper GI bleed: PLAN: Plan Hypoxia with large right pleural effusion/COVID-19 -Thoracentesis transudative in nature done on 11/05/2022 for 2.2 L -Oxygen saturation stable on room air at 91 to 95% -May need Pleurx catheter if ongoing thoracenteses need to be performed -This will likely recur until patient gets transplant -Do not anticipate that effusion is related to COVID Acute COVID-19 infection -Decadron to complete a total of 10-day treatment -Tested positive for COVID on 11/01/2022 and will need a total of 10 days isolation through 11/11/2022 -Clinically much better overall Acute on chronic anemia -Hemoglobin was 6 on admission-->Received 1 unit packed red blood cells and hemoglobin now up 9.8--> 8.1 yesterday--> 7.4 today -No obvious signs of bleeding -Occult stool ordered yesterday but still pending as no bowel movement -With continuing drop in hemoglobin GI consulted -N.p.o. and plan for EGD later today -Continue Protonix but increase to twice daily -Continue Carafate as ordered CKD stage IV -Has been initiated on dialysis secondary to volume overload -Continue dialysis per nephrology on MWF -EPO/IV iron per engineer remote control diesel -Neurology is following -Patient was on transplant list for simultaneous liver/kidney currently off secondary debility but being reevaluated in the near future Generalized weakness -Overall improving -Clinically feels better -Continue PT/OT consultation Pancytopenia -Chronic related to her cirrhosis plus acute COVID infection -Continue to monitor DM-2 -Continue Lantus but increase from 20 to 30 units while on steroids -Sugars markedly elevated this morning on fasting at 302 likely related to Decadron use -Sliding scale -Accu-Cheks as ordered Hypertension -Continue carvedilol Vitamin D deficiency -Continue ergocalciferol Hypothyroidism -cont Levothyroxine Cirrhosis secondary to autoimmune hepatitis -Home diuretics on hold--> will need to discuss with nephrology prior to reinitiation -Continue rifaximin -Continue lactulose Bipolar disorder -Continue medications DVT prophylaxis -Continue SCDs -Chemoprophylaxis on hold secondary to anemia and thrombocytopenia on pres entation CODE STATUS -full code Charges/Coding Visit Charges Inpatient E&M: 15265 Subs Hosp L2
--- NOTE | 2022-11-06 15:54 | EKG12_ITS ---
Test Reason : Blood Pressure : / mmHG Vent. Rate : 063 BPM Atrial Rate : 063 BPM P-R Int : 164 ms QRS Dur : 120 ms QT Int : 444 ms P-R-T Axes : 031 -39 059 degrees QTc Int : 454 ms Sinus rhythm with Premature atrial complexes Left axis deviation Left ventricular hypertrophy with QRS widening Abnormal ECG Confirmed by PAM ZAMBRANO, RANCHO ([id number]), newspaper copy editor NORA MENDES ([id number]) on 11/08/2022 8:36:07 AM Referred By: VINCENZO Confirmed By:RANCHO OROZCO MD
--- NOTE | 2022-11-06 17:24 | OP.EGD_ITS ---
Patient Name: Angela Lau Procedure Date: 11/06/2022 4:52 PM Date of : 1970 Age: 52 Procedure: Upper GI endoscopy Indications: Acute post hemorrhagic anemia, Coffee-ground emesis Providers: Shay Davis DO Medicines: Monitored Anesthesia Care Patient Profile: This is a 52 year old female. Refer to note in patient chart for documentation of history and physical. Patient has symptoms of acute nausea and acute vomiting. Complications: No immediate complications. Procedure: Pre-Anesthesia Assessment: - Prior to the procedure, a History and Physical was performed, and patient medications and allergies were reviewed. The risks and benefits of the procedure and the sedation options and risks were discussed with the patient. All questions were answered and informed consent was obtained. Patient identification and proposed procedure were verified by the physician in the pre-procedure area. Mental Status Examination: alert and oriented. Airway Examination: normal oropharyngeal airway and neck mobility. Respiratory Examination: clear to auscultation. CV Examination: normal. Prophylactic Antibiotics: The patient does not require prophylactic antibiotics. Prior Anticoagulants: The patient has taken no previous anticoagulant or antiplatelet agents. ASA Grade Assessment: IV - A patient with severe systemic disease that is a constant threat to life. After reviewing the risks and benefits, the patient was deemed in satisfactory condition to undergo the procedure. The anesthesia plan was to use monitored anesthesia care (MAC). Immediately prior to administration of medications, the patient was re-assessed for adequacy to receive sedatives. The heart rate, respiratory rate, oxygen saturations, blood pressure, adequacy of pulmonary ventilation, and response to care were monitored throughout the procedure. The physical status of the patient was re-assessed after the procedure. After obtaining informed consent, the endoscope was passed under direct vision. Throughout the procedure, the patient's blood pressure, pulse, and oxygen saturations were monitored continuously. The gastroscope was introduced through the mouth, and advanced to the second part of duodenum. The upper GI endoscopy was accomplished without difficulty. The patient tolerated the procedure well. Scope In: 5:01:30 PM Scope Out: 5:15:47 PM Total Procedure Duration Time 0 hours 14 minutes 17 seconds Findings: A 4 mm bleeding Ana Cristina-Cardozo tear with stigmata of recent bleeding was found. Coagulation for hemostasis using argon plasma at 0.3 liters/minute and 20 morgan was successful. Estimated blood loss was minimal. LA Grade C (one or more mucosal breaks continuous between tops of 2 or more mucosal folds, less than 75% circumference) esophagitis with bleeding was found 34 to 37 cm from the incisors. Red blood was found in the gastric antrum. 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 Coagulation for hemostasis using argon plasma at 0.4 liters/minute and 20 morgan was successful. Estimated blood loss was minimal. The second portion of the duodenum was normal. Impression: - Ana Cristina-Cardozo tear. Treated with argon plasma coagulation (APC). - LA Grade C erosive esophagitis. - Red blood in the gastric antrum. - Gastric antral vascular ectasia with bleeding. Treated with argon plasma coagulation (APC). - Normal second portion of the duodenum. - No specimens collected. Recommendation: - [facility]. - Resume previous diet. - Continue present medications. Procedure Code(s): --- Professional --- 81064, Esophagogastroduodenoscopy, flexible, transoral; with control of bleeding, any method CPT copyright 2017 [employer]. All rights reserved. The codes documented in this report are preliminary and upon pl sql developer review may be revised to meet current compliance requirements. Shay Davis DO 11/06/2022 5:24:08 PM This report has been signed electronically. Number of Addenda: 0 Note Initiated On: 11/06/2022 4:52 PM
--- NOTE | 2022-11-06 17:25 | OP.CCLET_ITS ---
11/06/2022 Janay Canchola [address] [place] [address] Re : Upper GI endoscopy procedure for Angelaaimee Lau Dear Dr. Canchola This procedure was performed on Sunday, November 06, 2022. My impressions and recommendations are as follows: Impressions : - Ana Cristina-Cardozo tear. Treated with argon plasma coagulation (APC). - LA Grade C erosive esophagitis. - Red blood in the gastric antrum. - Gastric antral vascular ectasia with bleeding. Treated with argon plasma coagulation (APC). - Normal second portion of the duodenum. - No specimens collected. Recommendations : - [facility]. - Resume previous diet. - Continue present medications. My findings are described in the full procedure note, which is enclosed. If I can be of further assistance, please feel free to contact me at . Sincerely, Shay Davis, 11/06/2022 5:24:08 PM This report has been signed electronically.
[2022-11-06] MEDS: dexAMETHasone 4 MG Tablet 6 MG PO (19:08)
[2022-11-06] MEDS: Ascorbic Acid 500 MG Tablet PO (19:11)
[2022-11-06] MEDS: LURASIDONE HCL 40 MG TABLET PO (19:12)
[2022-11-06] MEDS: Sertraline 50 MG Tablet 75 MG PO (21:46)
[2022-11-06] MEDS: Sucralfate 1 GM Tablet PO (21:46)
[2022-11-06] MEDS: rifAXIMin 550 MG Tablet PO (21:46)
[2022-11-06] MEDS: Ursodiol 250 MG Tablet PO (21:47)
[2022-11-06] MEDS: Pantoprazole Sodium 40 MG Tablet PO (21:47)
[2022-11-06] MEDS: MELATONIN 3 MG TABLET PO (21:47)
[2022-11-06] MEDS: guaiFENesin 1,200 MG Tablet 1200 MG PO (21:47)
[2022-11-06] MEDS: oxyCODONE 5 MG Tablet PO (21:57)
[2022-11-06 22:10] LABS: Bedside Glucose 191 mg/dL (74-106)
[2022-11-07] VITALS (7 sets, daily range): BP systolic 125–136; BP diastolic 60–66; PULSE 61–66; RESP 16–18; TEMP 36.4–36.6; O2SAT 89–100
[2022-11-07 04:41] LABS: Absolute Lymphocyte Count 0.21 X10^3/uL (0.83-4.51); Absolute Neutrophil Count 3.3 X10^3/uL (2.0-7.7); Basophil# 0.01 X10^3/uL; Basophil% 0.3 % (0-1); Eosinophil# 0.01 X10^3/uL; Eosinophils% 0.3 % (0-5); Hematocrit 24.2 % (37-47); Lymphocyte # 0.21 X10^3/ul (0.83-4.51); Lymphocyte % 5.8 % (19-41); Mean Corp Hgb Conc 33.1 g/dL (32-36); Mean Corpuscular Hgb 31.4 pg (27.0-32.0); Mean Corpuscular Volume 94.9 fL (81-99); Mean Platelet Vol. 10.5 fl (6.2-12.0); Monocyte# 0.06 X10^3/uL; Monocyte% 1.7 % (0-10); NRBC Flagged by Analyzer 0 % (0-5); Neutrophil # 3.32 X10^3/uL (2.7-7.7); Neutrophil % 91.3 % (47-70); POSITIVE COUNT YES; POSITIVE DIFFERENTIAL YES; Platelet Count 63 K/mm3 (150-450); RBC Distribution Width CV 16.3 % (11.6-14.6); RBC Distribution Width SD 55.8 fl (35.1-43.9); Red Blood Count 2.55 M/mm3 (4.2-5.4); White Blood Count 3.6 K/mm3 (4.4-11.0)
[2022-11-07 04:43] LABS: Differential Indicated SCAN CRITERIA MET
[2022-11-07] MEDS: Insulin Lispro 100 UNIT/ML INSULN.PEN SC ×2 (04:51→12:03)
[2022-11-07] MEDS: Levothyroxine 75 MCG Tablet PO (04:53)
[2022-11-07 04:59] LABS: Differential Comment SCANNED
[2022-11-07 05:02] LABS: Anion Gap 5 (5-15); BUN 25 mg/dL (7-18); BUN/Creat Ratio 8.4 RATIO (10-20); Calcium,Total 7.5 mg/dL (8.5-10.1); Chloride 102 mmol/L (98-107); Creatinine, Serum 2.99 mg/dL (0.55-1.02); EST Glomerular Filtration Rate 17 mL/min (>60); Est Glom Filt Rate - Afr Amer 21 mL/min (>60); Estimated Creatinine Clearance 22.48 ml/min; Glucose 270 mg/dL (74-106); Potassium 4.1 mmol/L (3.5-5.1); Sodium Level 137 mmol/L (136-145)
[2022-11-07 05:21] LABS: Bedside Glucose 234 mg/dL (74-106)
--- NOTE | 2022-11-07 10:17 | PN.CC_ITS ---
Assessment & Plan Assessment/Plan (1) Pleural effusion, right: (2) COVID-19: (3) Hypoxia: PLAN: Plan RECOMMENDATIONS: 1. Encourage incentive spirometer 2. Walking oximetry prior to discharge. Ordered. 3. Repeat chest x-ray in 2 to 4 weeks 4. Potential follow-up at tertiary center regarding transplant candidacy 5. Okay to discharge from a pulmonary perspective on required supplemental oxygen. IMPRESSIONS: 1. Right pleural effusion Patient with significant right pleural effusion status postthoracentesis. 2.1 L removed and patient is currently tolerating room air. Patient is COVID- positive, but this appears to be somewhat incidental. Chest x-ray today shows slight blunting the right costophrenic angle, which may be secondary to atelectasis. Encourage incentive spirometer. Patient will need a chest x-ray in 2 to 4 weeks. If frequent thoracentesis is required, may need to evaluate for transplant versus indwelling catheter. Patient appears to have responded well to the thoracentesis. Blood pressures have remained sufficient for dialysis. Okay to discharge from a pulmonary perspective. Patient should follow-up with primary green building materials distributor at [facility] 2. Acute on chronic anemia Baseline hemoglobin appears to be around 6. Patient has been transfused over this hospitalization. Unclear if Lasix is sufficient. Volume removal with dialysis as necessary. 3. Acute kidney injury on CKD stage IIIb Clinical suspicion for hepatorenal syndrome. Patient does have a history of cirrhosis. Baseline creatinine of 1.8 with presentation of 2.57. Nephrology is following. Patient has had dialysis and tolerating well. 4. Diabetes mellitus type 2/pancytopenia/debility Complicates care, management, recovery and prognosis. Albumin is low, pancytopenia and slightly elevated coagulation studies consistent with und erlying liver disease. Subjective Subjective Patient overall feels subjectively improved compared to yesterday. Patient able to tolerate EGD with no complications. Patient continues to have some cough but subjectively feels dyspnea is improved. Objective Data Objective Data EGD consistent with Ana Cristina-Cardozo tear status post cauterization Vital Signs: Vital Signs Temp Pulse Resp BP Pulse Ox O2 Del Method O2 Flow Rate 36.6 C 61 16 133/61 H 96 Nasal Cannula 1 11/07/22 02:38 11/07/22 02:38 11/07/22 02:38 11/07/22 02:38 11/07/22 08:58 11/07/22 08:58 11/07/22 08:58 FiO2 1 11/07/22 02:38 Oxygen Flow Rate (L/min) 1 Oxygen Delivery Method [4] Room Air Oxygen Delivery Method [3] Room Air Oxygen Delivery Method [2] Room Air Oxygen Delivery Method [1 ( Room Air Initial Baseline)] Oxygen Delivery Method Nasal Cannula Weight: 73 kg Body Mass Index (BMI) 23.8 Intake & Output: Intake and Output for Last 24 Hours 11/05/22 11/06/22 11/07/22 23:59 23:59 23:59 Intake Total 800 / 950 300 / 300 600 / 600 Output Total 2400 / 2400 50 / 50 100 / 100 Balance -1600 / -1450 250 / 250 500 / 500 Lab / Micro Data Attestation: I reviewed the patient's lab results. Result Diagrams: 11/07/22 04:15 11/07/22 04:15 Labs: Laboratory Results - last 24 hr 11/05/22 07:05: Diff Path Review Reviewed 11/05/22 14:40: Fl Pathologist Comment Reviewed 11/06/22 04:58: Diff Path Review Reviewed 11/06/22 11:39: POC Glucose 162 H 11/06/22 21:44: POC Glucose 191 H 11/07/22 04:15: WBC 3.6 L, RBC 2.55 L, Hgb 8.0 L, Hct 24.2 L, MCV 94.9, MCH 31.4, MCHC 33.1, RDW Std Deviation 55.8 H, RDW Coeff of Valentina 16.3 H, Plt Count 63 L, MPV 10.5, Immature Gran % (Auto) 0.600, Neut % (Auto) 91.3 H, Lymph % (Auto) 5.8 L, [place] % (Auto) 1.7, Eos % (Auto) 0.3, Baso % (Auto) 0.3, Absolute Neuts (auto) 3.3, Absolute Lymphs (auto) 0.21 L, Nucleated RBC % 0, Differential Comment SCANNED, Diff Path Review May 11/07/22 04:15: Sodium 137, Potassium 4.1, Chloride 102, Carbon Dioxide 30.0, Anion Gap 5, BUN 25 H, Creatinine 2.99 H, Estim Creat Clear Calc 22.48, Est GFR (MDRD) Af Amer 21 L, Est GFR (MDRD) Non-Af 17 L, BUN/Creatinine Ratio 8.4 L, Glucose 270 H, Calcium 7.5 L 11/07/22 04:49: POC Glucose 234 H Radiography Diagnostic Testing: Radiology Impression Chest X-Ray 11/06/22 05:55 IMPRESSION: There is blunting of the right costophrenic angle with mild increased markings at the right lung base suggestive of atelectasis. Electronically Signed: Dash Shin MD at 12:37 EST , Physical Exam Const alert, oriented x3 and no apparent distress Constitutional Narrative: No conversational dyspnea. Slightly slow to respond. HEENT normocephalic, head/scalp atraumatic, hearing grossly normal bilaterally and moist oral mucous membranes Eyes PERRL, EOMs intact bilaterally and conjunctivae normal Neck no lymphadenopathy and supple Chest inspection of chest normal Resp normal respiratory effort, no retractions and no use of accessory muscles Resp Narrative: No dullness to percussion. Auscultation: diminished lung sounds right; Negative for rhonchi or wheezes Cardio regular rate, regular rhythm, S1 normal heart sound, S2 normal heart sound, no murmurs, no rub and no gallops GI normal to inspection, nondistended, normoactive bowel sounds, soft to palpation, non-tender and non-distended GI Narrative: NG tube in situ Extremity normal to inspection, full ROM and no clubbing, cyanosis or edema Neuro oriented x3, CN's II-XII intact bilaterally and moves all extremities Neuro Narrative: confused, lethargic Sensorium / Orientation: awake and alert Psych Mood & Affect: flat affect Charges/Coding Visit Charges Inpatient E&M: 63988 Subs Hosp L2
--- NOTE | 2022-11-07 11:08 | NURSING ---
This Nurse went in to give scheduled morning meds around 1045am this morning. Dialysis nurse almost finished. States another 45min and pt will be done and to wait to give meds until pt is done with Dialysis. Pt is sleeping. BP and HR that this nurse just charted from dialysis machine but will check again once Dialysis is done.
--- NOTE | 2022-11-07 11:12 | PCM.TXEXTCAR ---
Diet Diet Order/Speech Therapy: 11/06/22 20:29 Diet: Cardiac: Calorie-Controlled Type of Dietary Supplement:: Nepro Is pt able to select menu?: Yes Diet Comments: 120 ml nepro TID w/ meals How many daily calories?: 1800 calorie Routine Orders/Code Status Routine Lab Work: CBC and BMP Code Status: Full Code Wound(s) bue: Wound Type: Laceration right post chest: Wound Type: thoracentesis Therapies Physical Therapy: Eval and Treat Occupational Therapy: Eval and Treat Problem/Diagnosis (1) Pleural effusion, right: Status: Acute Code(s): J90 - Pleural effusion, not elsewhere classified (2) COVID-19: Status: Acute Code(s): U07.1 - COVID-19 (3) Hypoxia: Status: Acute Code(s): R09.02 - Hypoxemia Allergies/Procedures Done in Hospital Allergies adhesive Allergy (Verified 11/03/22 07:54) Rash escitalopram oxalate [From Lexapro] Allergy (Verified 11/03/22 07:54) blindness Fish Containing Products Allergy (Verified 11/03/22 07:54) Other gabapentin [From Neurontin] Allergy (Verified 11/03/22 07:54) Alan Jez's Syndrome lamotrigine [From Lamictal] Allergy (Verified 11/03/22 07:54) Blindness topiramate [From Topamax] Allergy (Verified 11/03/22 07:54) Other burning in the legs sour cream Adverse Reaction (Severe, Uncoded 11/02/22 12:39) Anaphylaxis Preservatives Adverse Reaction (Intermediate, Uncoded 11/02/22 12:39) passed out, lungs deflated Preservatives in various foods including packaged gladys cheese, lettuce, and seafood. Procedures: EGD Type of Care/Length of Stay Estimated LOS: Convalescent Care Less Than 30 days Type of Care Needed: Skilled Rehab Potential: Good Prognosis: Good Additional Orders/Day of Discharge Day of Discharge: 11/07/22 Dietary and Speech Recommendations Dietitian Recommendations/Changes: Will change diet to 1800 calorie/consistent carbohydrate/renal with 1500ml FR. Consult RD for enteral nutrition support as needed via NG tube in place. Will add Nepro TID w/ meals as tolerated. Adjust ONS as needed and supplement PO with TF as needed. Discharge Plan Admission Admit Date/Time: 11/03/22 11:39 Attending Provider: Albino Monson Primary Care Provider: Janay Canchola Consulting Providers: Mando Alfonso ; Patel Arboleda ; Omar Allred ; Erich Alexander ; Mouna Rios NP ; Pravin Gonsalves ; Maribel Barrera ; Rachel Nelson Discharge Orders/Prescriptions Prescriptions: New dexamethasone 4 mg Tablet 6 mg PO DAILY 7 Days Qty: 11 0RF Continued Xifaxan 550 MG tablet 550 mg PO BID sucralfate [Carafate] 1 gram Tablet 1 g PO QHS pantoprazole 40 mg Tablet,Delayed Release (Dr/Ec) 40 mg PO DAILY sertraline 50 mg Tablet 75 mg PO QHS ursodiol 300 mg capsule 300 mg PO BID Label Comments: . carbamazepine 100 mg Tablet Extended Release 12 Hr 100 mg PO BID zinc 50 mg Tablet 50 mg PO DAILY Label Comments: PER PHARMACY NOT COVERED BY INSURANCE THROUGH [employer]. PHARMACY UNSURE IF SHE IS GETTING OTC carvedilol 3.125 mg tablet 6.25 mg PO BID torsemide 20 mg Tablet 80 mg PO DAILY Hold Instructions: Hold for 3 days then resume torsemide 20 mg daily lurasidone 40 mg Tablet 40 mg PO LUNCH ergocalciferol (vitamin D2) [Vitamin D2] 1,250 mcg (50,000 unit) capsule 1,250 unit PO MOTH levothyroxine 75 mcg tablet 75 mcg PO DAILY ondansetron 4 mg tablet,disintegrating 8 mg PO Q8H PRN (Reason: Nausea And Vomiting) insulin lispro [Humalog KwikPen Insulin] 100 unit/mL insulin pen 7 unit subcut ACHS Label Comments: +SLIDING SCALE UP TO 40 UNITS DAILY. lactulose 20 gram/30 mL solution 20 g PO BID Rx Instructions: titrate for 3-4 BMs per day bisacodyl 10 mg Suppository 10 mg [place] DAILY PRN (Reason: Constipation) dextromethorphan HBr 10 mg/15 mL Syrup 10 mg PO Q6H PRN (Reason: Cough) darbepoetin sree in polysorbat 40 mcg/0.4 mL Syringe 40 mcg SUBCUT QWEEK insulin degludec [Tresiba FlexTouch U-100] 100 unit/mL (3 mL) Insulin Pen 10 unit SUBCUT DAILY acetaminophen 500 mg Tablet 500 mg PO Q6H PRN (Reason: Pain) ascorbic acid (vitamin C) 500 mg tablet 500 mg PO DAILY magnesium hydroxide [Milk of Magnesia] 400 mg/5 mL Suspension 2,400 mg PO DAILY PRN (Reason: Constipation) insulin lispro [Humalog KwikPen Insulin] 100 unit/mL insulin pen See Protocol SUBCUT ACHS Protocol: 6. Sliding Scale Insulin Custom Condition: 151-200 Dose/Route: 2 Condition: 201-250 Dose/Route: 4 Condition: 251-300 Dose/Route: 6 Condition: 301-350 Dose/Route: 8 Condition: 351-400 Dose/Route: 10 Protocol Text: Custom Sliding Scale insulin glargine [Lantus Solostar U-100 Insulin] 100 unit/mL (3 mL) Insulin Pen 10 unit subcut DAILY Referrals / Follow Up: Janay Canchola MD [Primary Care Provider] - Disposition Disposition (needs filled in before D/C Order can be placed): Detention Facility
[2022-11-07] MEDS: dexAMETHasone 4 MG Tablet 6 MG PO (11:50)
[2022-11-07] MEDS: guaiFENesin 1,200 MG Tablet 1200 MG PO (11:52)
[2022-11-07] MEDS: Pantoprazole Sodium 40 MG Tablet PO (11:53)
[2022-11-07] MEDS: Ascorbic Acid 500 MG Tablet PO (11:54)
[2022-11-07] MEDS: Ursodiol 250 MG Tablet PO (11:56)
[2022-11-07] MEDS: Carvedilol 6.25 MG Tablet PO (11:58)
[2022-11-07] MEDS: rifAXIMin 550 MG Tablet PO (11:58)
[2022-11-07] MEDS: Insulin Glargine-YFGN 100 UNIT/ML Pen 30 UNIT SC (12:04)
[2022-11-07] MEDS: LURASIDONE HCL 40 MG TABLET PO (12:05)
--- NOTE | 2022-11-07 12:11 | CASEMGMT ---
Social Work? MARIANA notified pt and pt family of discharge back to [facility] today. Set up wheelchair transportation through [facility] for 1:00pm. MARIANA faxed all discharge orders to [facility] via [employer] and notified of discharge time. SW notified pt [employer] of transport time. MARIANA made copies of discharge orders and placed on pt chart. Sent original orders in envelope with pt upon discharge.? ? Disposition: Return to [facility], skilled, convalescent, level of care? RYU Nelson?
[2022-11-07 12:35] LABS: Bedside Glucose 239 mg/dL (74-106)
--- NOTE | 2022-11-07 13:33 | NURSING ---
This RN went in to take Iv out and introduce [facility] that was taking her to [facility]. Pt Dobhoff looked like it was longer then it was last time this RN assessed it. PT states she took the bandaide that was holding it in place off b/c her nose was running and the band aide was coming off. This Nurse carefully and slowly pushed the Dobhoff back in to where I thought it was in the first place. Dr. Robleros aware of all this and ordered xray abd to make sure its still in place and then pt could go to [facility].
--- NOTE | 2022-11-07 13:45 | RAD_ITS ---
STUDY: X-RAY - ABDOMEN/PELVIS REASON FOR EXAM: Female, 52 years old. Dobbhoff out of place -- covid precautions TECHNIQUE: Single AP view of the abdomen / pelvis. COMPARISON: Comparison is made with prior examination dated 11/02/2022. FINDINGS: The tip of the DOBBHOFF tube is in the body of the stomach. RAD/Abdomen Single View (Portable) IMPRESSION: The tip of the DOBBHOFF tube is in the body of the stomach. Electronically Signed: Dash Shin MD at 14:34 EST ,
--- NOTE | 2022-11-07 14:46 | NURSING ---
Report given to Dary Ponce at [facility].
[2022-11-07 15:36] LABS: Pathologist Review Reviewed
--- NOTE | 2022-11-07 15:51 | PCM.DC.SUM ---
Providers Date of Admission: 11/03/22 Primary Care Physician: Dr. Janay Canchola MD Consultations 11/03/22 18:38 Consult: Plant Operations Vice President / Pulmonary Medicine Routine Consulting Provider: Pulmonary Medicine simi Phil Reason for Consult: right pleural effusion EMERGENT Consult: No Notified: Yes Date Notified: 11/04/22 Time Notified: 07:31 Method of Notification: via text 11/04/22 13:16 Consult: Nephrology Routine Consulting Provider: Pravin Gonsalves Reason for Consult: ESRD, needs hemodialysis EMERGENT Consult: No Notified: Yes Date Notified: 11/04/22 Time Notified: 13:16 Method of Notification: Text 11/06/22 07:36 Consult: Gastroenterology Routine Consulting Provider: [facility] Reason for Consult: anemia EMERGENT Consult: No Notified: Yes Date Notified: 11/06/22 Time Notified: 07:37 Method of Notification: Verbal Reason For Visit: ACUTE ON CHRONIC ANEMIA Diagnosis Discharge Diagnosis (1) Pleural effusion, right: Status: Acute Code(s): J90 - Pleural effusion, not elsewhere classified (2) COVID-19: Status: Acute Code(s): U07.1 - COVID-19 (3) Hypoxia: Status: Acute Code(s): R09.02 - Hypoxemia Medications at Discharge Home Medications rifaximin 550 mg tablet (Xifaxan) 550 mg PO BID IBS 11/04/17 pantoprazole 40 mg tablet,delayed release 40 mg PO DAILY GERD 03/20/21 sertraline 50 mg tablet 75 mg PO QHS DEPRESSION 03/20/21 sucralfate 1 gram tablet (Carafate) 1 g PO QHS STOMACH 03/20/21 ursodiol 300 mg capsule 300 mg PO BID LIVER 04/25/21 carbamazepine 100 mg tablet,extended release,12 hr 100 mg PO BID bipolar 04/29/21 zinc 50 mg tablet 50 mg PO DAILY SUPPLEMENT 09/18/21 carvedilol 3.125 mg tablet 6.25 mg PO BID HEART 03/23/22 lurasidone 40 mg tablet 40 mg PO LUNCH MOOD 04/16/22 torsemide 20 mg tablet 80 mg PO DAILY diuretic 04/16/22 ergocalciferol (vitamin D2) 1,250 mcg (50,000 unit) capsule (Vitamin D2) 1,250 unit PO MOTH SUPPLMENT 05/14/22 insulin lispro 100 unit/mL subcutaneous pen (Humalog KwikPen (U-100) Insulin) 7 unit subcut ACHS diabetes 05/14/22 levothyroxine 75 mcg tablet 75 mcg PO DAILY THYROID 05/14/22 ondansetron 4 mg disintegrating tablet 8 mg PO Q8H PRN Nausea And Vomiting 05/14/22 lactulose 20 gram/30 mL oral solution 20 g PO BID liver failure 06/11/22 acetaminophen 500 mg tablet 500 mg PO Q6H PRN Pain 11/03/22 ascorbic acid (vitamin C) 500 mg tablet 500 mg PO DAILY supplement 11/03/22 bisacodyl 10 mg rectal suppository 10 mg AL DAILY PRN Constipation 11/03/22 darbepoetin sree in polysorbat 40 mcg/0.4 mL in polysorbate injection syringe 40 mcg subcut QWEEK bone marrow 11/03/22 dextromethorphan HBr 10 mg/15 mL oral syrup 10 mg PO Q6H PRN Cough 11/03/22 insulin degludec 100 unit/mL (3 mL) subcutaneous pen (Tresiba FlexTouch U-100 insulin) 10 unit subcut DAILY diabetes 11/03/22 insulin glargine 100 unit/mL (3 mL) subcutaneous pen (Lantus Solostar U-100 Insulin) 10 unit subcut DAILY DM2 11/03/22 insulin lispro 100 unit/mL subcutaneous pen (Humalog KwikPen (U-100) Insulin) See Protocol subcut ACHS diabetes 11/03/22 magnesium hydroxide 400 mg/5 mL oral suspension (Milk of Magnesia) 2,400 mg PO DAILY PRN Constipation 11/03/22 dexamethasone 4 mg tablet 6 mg PO DAILY 7 days #11 tabs 11/07/22 Hospital Course Operations None Procedures None Summary of Care Provided Minutes Spent on Discharge: 40 Hospital Course: Per HPI: ANA GARCÍA, is a 52 F with a PMH as outlined who presents via the ED on 11/03/2022 with a complaint of generalised feeling of unwellness. SHe tested positive for covid 3 days ago. SHe was seen in the ED for repositioning of her PEG tube which she had pulled out yesterday. However, she pulled it out again today. She has just not been feeling well since she tested positive for covid. She denied any feve,r chills, cough, chest pain, palpitations, dizziness, nausea, vomiting or diarrhea. Review of systems is otherwise negative. Vitals were BP of 101/48, AL of 61 and RR of 20. She was saturating at 100%on 2L of oxygen. CBC showed Hb of 6, with wbc of 2.4 and platelets of 88. Chemistry showed Cr of 2.73, glucose of 69 and CXR showed increase in large right volume pleural fluid with persistent compressive atelectasis of the right lower lobe, right middle lobe and partial atelectasis of right upper lobe. She is being admitted to be managed for COVID 19 infection, with acute on chronic anemia and right pleural effusion. Hospital Course: 1. Acute hypoxic respiratory failure with large right pleural effusion/COVID-19?52-year-old female presented to the hospital complaining of just feeling unwell. She did test positive for COVID 3 days prior to coming into the ER. She did have some issues with her Dobbhoff tube that had to be repositioned in the ER at the request of the physician at the correction. She does have chronic kidney disease and is on dialysis and is awaiting of both liver and renal transplant. Her oxygen requirements have improved significantly, she is down to needing 2 L nasal cannula at rest and with ambulation. She did have a thoracentesis done that did remove 2.2 L which was transudative in nature and likely secondary to her renal and liver disease. Because of her liver disease and her kidney disease she does not qualify for remdesivir but she was started Decadron which she will complete a 10-day course of, she was discharged with 7 days worth. I discussed with her the plan for discharge today, and she expressed understanding of the risk benefits of going back to the correction and would like to go today. She was having some nasal drainage and her Dobbhoff was excellently dislodged, this was reinserted and a KUB shows that it is in the body of the stomach. 2. 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 GI was consulted and discovered that it was from a Ana Cristina-Cardozo tear as well as an erosive esophagitis, she continue with her care fate as well as her PPI on discharge. Neck 3. CKD stage IV, type 2 diabetes, hypertension, hypothyroidism, vitamin D deficiency, cirrhosis secondary to autoimmune hepatitis, bipolar disorder are all chronic medical conditions which complicate her care. Her home medications were continued where appropriate Physical Exam Narrative General: Alert, Oriented x3, Cooperative, No apparent distress HEENT: Atraumatic, PERRLA, EOMI, Normocephalic Oral: Moist Mucosa Neck: Supple, No JVD Lungs: Clear to auscultation, Normal air movement, No rhonchi, No wheeze, No rales Cardiovascular: Regular rate, Regular Rhythm, Normal S1, Normal S2, No murmurs Abdomen: Soft, Non Tender, Non-Distended, No Hepato-splenomegaly Extremities: No edema, Capillary Refill Less than 3 Seconds Skin: No rashes, No breakdown Musculoskeletal: No Tenderness to Palpation of Joints or Extremities Neurological: Cranial nerves II-XII grossly intact, Motor Exam 5/5 strength throughout, Sensory exam intact to light touch and pain Psych/Mental Status: Normal Affect, Appropriate Saturday with residual issues Weight / BMI Weight Weight: 160 lb 14.999 oz Body Mass Index (BMI) 23.8 ABG / Lab / Microbiology Data Result Diagrams: 11/07/22 04:15 11/07/22 04:15 Laboratory: Laboratory Results - last 24 hr 11/06/22 21:44: POC Glucose 191 H 11/07/22 04:15: WBC 3.6 L, RBC 2.55 L, Hgb 8.0 L, Hct 24.2 L, MCV 94.9, MCH 31.4, MCHC 33.1, RDW Std Deviation 55.8 H, RDW Coeff of Valentina 16.3 H, Plt Count 63 L, MPV 10.5, Immature Gran % (Auto) 0.600, Neut % (Auto) 91.3 H, Lymph % (Auto) 5.8 L, Christian % (Auto) 1.7, Eos % (Auto) 0.3, Baso % (Auto) 0.3, Absolute Neuts (auto) 3.3, Absolute Lymphs (auto) 0.21 L, Nucleated RBC % 0, Differential Comment SCANNED, Diff Path Review Reviewed 11/07/22 04:15: Sodium 137, Potassium 4.1, Chloride 102, Carbon Dioxide 30.0, Anion Gap 5, BUN 25 H, Creatinine 2.99 H, Estim Creat Clear Calc 22.48, Est GFR (MDRD) Af Amer 21 L, Est GFR (MDRD) Non-Af 17 L, BUN/Creatinine Ratio 8.4 L, Glucose 270 H, Calcium 7.5 L 11/07/22 04:49: POC Glucose 234 H 11/07/22 12:02: POC Glucose 239 H Radiography Diagnostic Testing: Radiology Impression KUB X-Ray 11/07/22 13:45 IMPRESSION: The tip of the DOBBHOFF tube is in the body of the stomach. Electronically Signed: Dash Shin MD at 14:34 EST , Meaningful Use Info Meaningful Use Diagnoses (Choose all that apply): None applicable Discharge Plan Admission Admit Date/Time: 11/03/22 11:39 Attending Provider: Albino Monson Primary Care Provider: Janay Canchola Consulting Providers: Mando Alfonso ; Patel Arboleda ; Omar Allred ; Erich Alexander ; Mouna Rios NP ; Pravin Gonsalves ; Maribel Barrera ; Rachel Nelson Discharge Orders/Prescriptions Prescriptions: New dexamethasone 4 mg Tablet 6 mg PO DAILY 7 Days Qty: 11 0RF Continued Xifaxan 550 MG tablet 550 mg PO BID sucralfate [Carafate] 1 gram Tablet 1 g PO QHS pantoprazole 40 mg Tablet,Delayed Release (Dr/Ec) 40 mg PO DAILY sertraline 50 mg Tablet 75 mg PO QHS ursodiol 300 mg capsule 300 mg PO BID Label Comments: . carbamazepine 100 mg Tablet Extended Release 12 Hr 100 mg PO BID zinc 50 mg Tablet 50 mg PO DAILY Label Comments: PER PHARMACY NOT COVERED BY INSURANCE THROUGH [employer]. PHARMACY UNSURE IF SHE IS GETTING OTC carvedilol 3.125 mg tablet 6.25 mg PO BID torsemide 20 mg Tablet 80 mg PO DAILY Hold Instructions: Hold for 3 days then resume torsemide 20 mg daily lurasidone 40 mg Tablet 40 mg PO LUNCH ergocalciferol (vitamin D2) [Vitamin D2] 1,250 mcg (50,000 unit) capsule 1,250 unit PO MOTH levothyroxine 75 mcg tablet 75 mcg PO DAILY ondansetron 4 mg tablet,disintegrating 8 mg PO Q8H PRN (Reason: Nausea And Vomiting) insulin lispro [Humalog KwikPen Insulin] 100 unit/mL insulin pen 7 unit subcut [facility] Label Comments: +SLIDING SCALE UP TO 40 UNITS DAILY. lactulose 20 gram/30 mL solution 20 g PO BID Rx Instructions: titrate for 3-4 BMs per day bisacodyl 10 mg Suppository 10 mg AL DAILY PRN (Reason: Constipation) dextromethorphan HBr 10 mg/15 mL Syrup 10 mg PO Q6H PRN (Reason: Cough) darbepoetin sree in polysorbat 40 mcg/0.4 mL Syringe 40 mcg SUBCUT QWEEK insulin degludec [Tresiba FlexTouch U-100] 100 unit/mL (3 mL) Insulin Pen 10 unit SUBCUT DAILY acetaminophen 500 mg Tablet 500 mg PO Q6H PRN (Reason: Pain) ascorbic acid (vitamin C) 500 mg tablet 500 mg PO DAILY magnesium hydroxide [Milk of Magnesia] 400 mg/5 mL Suspension 2,400 mg PO DAILY PRN (Reason: Constipation) insulin lispro [Humalog KwikPen Insulin] 100 unit/mL insulin pen See Protocol SUBCUT [facility] Protocol: 6. Sliding Scale Insulin Custom Condition: 151-200 Dose/Route: 2 Condition: 201-250 Dose/Route: 4 Condition: 251-300 Dose/Route: 6 Condition: 301-350 Dose/Route: 8 Condition: 351-400 Dose/Route: 10 Protocol Text: Custom Sliding Scale insulin glargine [Lantus Solostar U-100 Insulin] 100 unit/mL (3 mL) Insulin Pen 10 unit subcut DAILY Referrals / Follow Up: Janay Canchola MD [Primary Care Provider] - Disposition Disposition (needs filled in before D/C Order can be placed): Long Term Facility Charges/Coding Visit Charges Inpatient E&M: 81891 Disch Hosp
== END 2022-11-07 14:45 | disposition skilled nursing facility (03) | DRG 177 ==
LOC: ED 11:27 → MS3 11:38
PROVIDERS: Internal Medicine; Internal Medicine Gastroenterology; Admitting Provider Student in an Organized Health Care Education/Training Program; Emergency Provider Emergency Medicine; PCP Internal Medicine; Visit Provider Family Medicine
PROC: 0DJ08ZZ Inspection of Upper Intestinal Tract, Via Natural or Artificial Opening Endoscopic (ICD-10-PCS; CPT 43235; principal; 2022-11-06 15:00)
DX: U07.1 COVID-19 (principal); K76.7 Hepatorenal syndrome; J96.01 Acute respiratory failure with hypoxia; K22.11 Ulcer of esophagus with bleeding; K22.6 Gastro-esophageal laceration-hemorrhage syndrome; K25.4 Chronic or unspecified gastric ulcer with hemorrhage; G93.40 Encephalopathy, unspecified; D61.818 Other pancytopenia; J94.8 Other specified pleural conditions; N17.9 Acute kidney failure, unspecified; N18.4 Chronic kidney disease, stage 4 (severe); K94.23 Gastrostomy malfunction; J90 Pleural effusion, not elsewhere classified; E11.22 Type 2 diabetes mellitus with diabetic chronic kidney disease; F25.9 Schizoaffective disorder, unspecified; Z79.4 Long term (current) use of insulin; K74.60 Unspecified cirrhosis of liver; Z99.2 Dependence on renal dialysis; E11.42 Type 2 diabetes mellitus with diabetic polyneuropathy; F31.9 Bipolar disorder, unspecified; K75.4 Autoimmune hepatitis; D63.1 Anemia in chronic kidney disease; E03.9 Hypothyroidism, unspecified; E55.9 Vitamin D deficiency, unspecified; I12.9 Hypertensive chronic kidney disease with stage 1 through stage 4 chronic kidney disease, or unspecified chronic kidney disease; D50.0 Iron deficiency anemia secondary to blood loss (chronic); G89.29 Other chronic pain; R53.81 Other malaise; Z82.3 Family history of stroke; Y82.9 Unspecified medical devices associated with adverse incidents
CPT/HCPCS: 32555; 36415; 71045; 71046; 74018; 80048; 80053; 82945; 82962; 83615; 84157; 85025; 85610; 86850; 86900; 86901; 86920; 86922; 88108; 88305; 88313; 89050; 90937; 93005; 94762; 97110; 97162; 97166; 97530; 97535; 99251; 99284; 99285; J7040; P9016; A4216; G0257; G0463; J2405

== ENCOUNTER 2022-11-15 18:42 | Emergency (ER) | payer MEDICARE, MEDICAID, SELFPAY ==
[2022-11-15 18:44] VITALS: BP 163/68; PULSE 76; RESP 16; TEMP 36.6; O2SAT 98; BMI 23.8
--- NOTE | 2022-11-15 19:36 | ED.RN ---
pt asked for her blood sugar to be checked,blood sugar 412 and pt now deciding about leaving since it decreased.pt made aware that it is a high blood sugar.she stated she is having dialysis tomorrow and wonders if her eating affected her high sugar.
[2022-11-15 19:56] LABS: Bedside Glucose 412 mg/dL (74-106)
--- NOTE | 2022-11-15 21:55 | EX.ED.DYSGE1 ---
HPI <Dr. Alex Lizarraga MD - Last Filed: 11/16/22 01:13> History of Present Illness Chief Complaint: Hyperglycemia Informant: patient Narrative Narrative: Patient presents with hyperglycemia. She states she had outpatient blood work done which is routine. Evidently the level was critical so she was sent in here to the emergency department. She is actually at [facility] getting strength prior to a liver kidney transplant. She states she has been feeling great. She did eat just prior to having the blood drawn. She is on the Lantus but does not know exactly what dose. I found out she is on 10 units a day of Lantus in the morning. She takes 10 of Tresiba and is on a sliding scale of Humalog. She asked if they could just change her insulin dose but they stated she has to come to the emergency department. I think the concern is that her sugar was still up after treating. She really does not want a work-up. She states she feels fine her sugar was just high. This is happened before. Of note, patient no longer has PEG tube for tube feeds. I was able to find her med list. She is on 10 of Tresiba, 10 of Lantus in the morning. She is then on a sliding scale for Humalog. I given a dose of 10 for a glucose of over 450. But she is already on 10 units for glucose over 400. [facility] <Dr. Alex Lizarraga MD - Last Filed: 11/16/22 01:13> [facility] Medical History Acute on chronic anemia Acute on chronic renal insufficiency Anemia Autoimmune hepatitis Bacteremia due to methicillin resistant Staphylococcus epidermidis Bipolar disorder CHI (closed head injury) Chronic pain Chronic renal insufficiency, stage III (moderate) Cirrhosis of liver Debility Depression Diabetes mellitus, type 2 Encephalopathy acute Essential hypertension Reilly's thyroiditis Hepatic encephalopathy Hepatitis Hypothyroidism Kidney disease MRSA bacteremia Myocardial infarct Non-smoker On home oxygen therapy Pancreatitis Pancytopenia Peripheral neuropathy Right lower lobe pneumonia Schizoaffective disorder Severe sepsis Splenomegaly Stage 3b chronic kidney disease (CKD) Weakness Home Medications rifaximin 550 mg tablet (Xifaxan) 550 mg PO BID IBS 11/04/17 [History Last Taken 06/14/22] pantoprazole 40 mg tablet,delayed release 40 mg PO DAILY GERD 03/20/21 [History Last Taken 06/14/22] sertraline 50 mg tablet 75 mg PO QHS DEPRESSION 03/20/21 [History Last Taken 06/14/22] sucralfate 1 gram tablet (Carafate) 1 g PO QHS STOMACH 03/20/21 [History Last Taken 06/14/22] ursodiol 300 mg capsule 300 mg PO BID LIVER 04/25/21 [History Last Taken 06/14/22] carbamazepine 100 mg tablet,extended release,12 hr 100 mg PO BID bipolar 04/29/21 [History Last Taken 06/14/22] zinc 50 mg tablet 50 mg PO DAILY SUPPLEMENT 09/18/21 [History Last Taken 06/14/22] carvedilol 3.125 mg tablet 6.25 mg PO BID HEART 03/23/22 [History Last Taken 06/14/22] lurasidone 40 mg tablet 40 mg PO LUNCH MOOD 04/16/22 [History Last Taken 06/14/22] torsemide 20 mg tablet 80 mg PO DAILY diuretic 04/16/22 [History Last Taken 06/14/22] ergocalciferol (vitamin D2) 1,250 mcg (50,000 unit) capsule (Vitamin D2) 1,250 unit PO MOTH SUPPLMENT 05/14/22 [History Last Taken 06/14/22] insulin lispro 100 unit/mL subcutaneous pen (Humalog KwikPen (U-100) Insulin) 7 unit subcut ACHS diabetes 05/14/22 [History Last Taken 06/14/22] levothyroxine 75 mcg tablet 75 mcg PO DAILY THYROID 05/14/22 [History Last Taken 06/14/22] ondansetron 4 mg disintegrating tablet 8 mg PO Q8H PRN Nausea And Vomiting 05/14/22 [History Last Taken 06/13/22] lactulose 20 gram/30 mL oral solution 20 g PO BID liver failure 06/11/22 [History Last Taken 06/14/22] acetaminophen 500 mg tablet 500 mg PO Q6H PRN Pain 11/03/22 [History Last Taken Unknown] ascorbic acid (vitamin C) 500 mg tablet 500 mg PO DAILY supplement 11/03/22 [History Last Taken Unknown] bisacodyl 10 mg rectal suppository 10 mg MA DAILY PRN Constipation 11/03/22 [History Last Taken Unknown] darbepoetin sree in polysorbat 40 mcg/0.4 mL in polysorbate injection syringe 40 mcg subcut QWEEK bone marrow 11/03/22 [History Last Taken Unknown] dextromethorphan HBr 10 mg/15 mL oral syrup 10 mg PO Q6H PRN Cough 11/03/22 [History Last Taken Unknown] insulin degludec 100 unit/mL (3 mL) subcutaneous pen (Tresiba FlexTouch U-100 insulin) 10 unit subcut DAILY diabetes 11/03/22 [History Last Taken Unknown] insulin glargine 100 unit/mL (3 mL) subcutaneous pen (Lantus Solostar U-100 Insulin) 10 unit subcut DAILY DM2 11/03/22 [History Last Taken Unknown] insulin lispro 100 unit/mL subcutaneous pen (Humalog KwikPen (U-100) Insulin) See Protocol subcut ACHS diabetes 11/03/22 [History Last Taken Unknown] magnesium hydroxide 400 mg/5 mL oral suspension (Milk of Magnesia) 2,400 mg PO DAILY PRN Constipation 11/03/22 [History Last Taken Unknown] dexamethasone 4 mg tablet 6 mg PO DAILY 7 days #11 tabs 11/07/22 [Rx Last Taken Unknown] Allergy/AdvReac Type Severity Reaction Status Date / Time adhesive Allergy Rash Verified 11/15/22 18:47 escitalopram oxalate Allergy blindness Verified 11/15/22 18:47 [From Lexapro] Fish Containing Products Allergy Other Verified 11/15/22 18:47 gabapentin [From Neurontin] Allergy Alan Verified 11/15/22 18:47 Jez's Syndrome lamotrigine [From Lamictal] Allergy Blindness Verified 11/15/22 18:47 metformin Allergy PT UNSURE Verified 11/15/22 18:47 OF REACTION topiramate [From Topamax] Allergy Other Verified 11/15/22 18:47 sour cream AdvReac Severe Anaphylaxis Uncoded 11/02/22 12:39 Preservatives AdvReac Intermediate passed Uncoded 11/02/22 12:39 out, lungs deflated Family History Father CVA (cerebral vascular accident) Myocardial infarction Heart disease CAD (coronary artery disease) Grandmother CHF (congestive heart failure) Sister Hypertension Mother Heart disease Surgical History H/O: hysterectomy History of abdominal paracentesis (10/2019) History of appendectomy History of cholecystectomy S/P TIPS (transjugular intrahepatic portosystemic shunt) Social History household members: significant other housing: house Smoking Status: Never smoker alcohol intake: never details: Unknown substance use type: does not use ROS <Dr. Alex Lizarraga MD - Last Filed: 11/16/22 01:13> ROS ED Constitutional Constitutional ED: Denies chills, fever(s) or sweats Eyes Eyes: Denies change in vision or diplopia ENT ENT ED: Denies rhinorrhea or sore throat Cardiovascular Cardiovascular: Denies chest pain or palpitations Respiratory/Chest Respiratory/Chest: Denies cough or dyspnea Gastrointestinal Gastrointestinal: Denies abdominal pain, nausea or vomiting Musculoskeletal Musculoskeletal: Denies arthralgias or myalgias Integumentary Denies rash Neurologic Neurologic: Denies headache(s) Psychiatric Psychiatric: Reports anxiety Endocrine Endocrinology: Denies polydipsia or polyuria Hematologic/Lymphatic Hematologic/Lymphatic: Denies easy bleeding or easy bruising Allergic/Immunologic Allergic/Immunologic ED: Denies urticaria EXAM <Dr. Alex Lizarraga MD - Last Filed: 11/16/22 01:13> Physical Exam Const Vital Signs: 11/15/22 18:44 11/15/22 22:42 11/16/22 00:00 Temperature 97.8 F Temperature Source Temporal Pulse Rate 76 68 60 Respiratory Rate 16 15 15 Blood Pressure 163/68 H Blood Pressure Mean 99 Pulse Ox 98 99 95 Oxygen Delivery Method Room Air Room Air Room Air 11/16/22 03:33 Temperature Temperature Source Pulse Rate Respiratory Rate 16 Blood Pressure Blood Pressure Mean Pulse Ox Oxygen Delivery Method Room Air Positive well nourished and well developed Constitutional Narrative: Patient sitting quietly in bed. She carries on a normal conversation. She looks actually quite healthy. I have seen her before and she is looks much ill her. But she looks good today. General Appearance ED: well developed and NAD HEENT Reports moist mucous membranes Eyes General Eye ED: Negative for scleral icterus Neck no lymphadenopathy Chest Wall Chest Narrative: Patient has a dialysis catheter in right upper chest that looks clean and intact Resp normal respiratory effort and clear to auscultation bilaterally Auscultation: Negative for rales Cardio regular rate and regular rhythm GI normal to inspection, nondistended, normoactive bowel sounds and non-tender Back/Spine no CVA tenderness Extremity General Extremety ED: Negative for edema General Extremity: Negative for edema Neuro oriented x3 Psych mental status grossly normal Skin no rashes or lesions noted <Cornel Smith MD - Last Filed: 11/16/22 04:24> Physical Exam Const Vital Signs: 11/15/22 18:44 11/15/22 22:42 11/16/22 00:00 Temperature 97.8 F Temperature Source Temporal Pulse Rate 76 68 60 Respiratory Rate 16 15 15 Blood Pressure 163/68 H Blood Pressure Mean 99 Pulse Ox 98 99 95 Oxygen Delivery Method Room Air Room Air Room Air 11/16/22 03:33 Temperature Temperature Source Pulse Rate Respiratory Rate 16 Blood Pressure Blood Pressure Mean Pulse Ox Oxygen Delivery Method Room Air MDM <Dr. Alex Lizarraga MD - Last Filed: 11/16/22 01:13> [facility] MDM Narrative Medical decision making narrative: Patient really did not want a work-up done. We agreed that we would initially do PGT. This was elevated. We gave subcu insulin. It ends up we may have underdosed this based on the sliding scale that I was later able to find. Her glucose level did not really drop. At this point we did do blood work. She has anemia which is chronic. She has elevated BUN and creatinine consistent with her renal disease. No sign of elevated anion gap or decreased bicarb. Patient's being redosed with insulin. She reaffirms that she feels fine. She does not feel ill in any way. My plan is to try to get her blood sugar down. I really cannot give her large volumes of fluid because she is on dialysis. She gets dialysis Saturday and Saturday and just had this yesterday. She may need an increase in her Tresiba Lantus or sliding scale to further manage this. Lab Data Attestation: I reviewed the patient's lab results. Labs: Laboratory Results - last 24 hr 11/15/22 11/15/22 11/16/22 19:33 21:58 00:00 WBC RBC Hgb Hct MCV MCH MCHC RDW Std Deviation RDW Coeff of Valentina Plt Count MPV Immature Gran % (Auto) Neut % (Auto) Lymph % (Auto) [place] % (Auto) Eos % (Auto) Baso % (Auto) Absolute Neuts (auto) Absolute Lymphs (auto) Nucleated RBC % Differential Comment Sodium Potassium Chloride Carbon Dioxide Anion Gap BUN Creatinine Estim Creat Clear Calc Est GFR (MDRD) Af Amer Est GFR (MDRD) Non-Af BUN/Creatinine Ratio Glucose Calcium POC Glucose 412 H 420 H 487 H* 11/16/22 11/16/22 11/16/22 00:22 00:22 01:16 WBC 6.5 RBC 2.57 L Hgb 7.9 L Hct 24.0 L MCV 93.4 MCH 30.7 MCHC 32.9 RDW Std Deviation 55.1 H RDW Coeff of Valentina 16.2 H Plt Count 74 L MPV 10.4 Immature Gran % (Auto) 0.600 Neut % (Auto) 82.3 H Lymph % (Auto) 9.0 L [place] % (Auto) 5.7 Eos % (Auto) 2.4 Baso % (Auto) 0.0 Absolute Neuts (auto) 5.4 Absolute Lymphs (auto) 0.59 L Nucleated RBC % 0 Differential Comment SCANNED Sodium 132 L Potassium 3.8 Chloride 98 Carbon Dioxide 26.0 Anion Gap 8 BUN 43 H Creatinine 3.99 H Estim Creat Clear Calc 16.84 Est GFR (MDRD) Af Amer 15 L Est GFR (MDRD) Non-Af 12 L BUN/Creatinine Ratio 10.8 Glucose 486 H* Calcium 8.1 L POC Glucose 456 H* 11/16/22 02:57 WBC RBC Hgb Hct MCV MCH MCHC RDW Std Deviation RDW Coeff of Valentina Plt Count MPV Immature Gran % (Auto) Neut % (Auto) Lymph % (Auto) [place] % (Auto) Eos % (Auto) Baso % (Auto) Absolute Neuts (auto) Absolute Lymphs (auto) Nucleated RBC % Differential Comment Sodium Potassium Chloride Carbon Dioxide Anion Gap BUN Creatinine Estim Creat Clear Calc Est GFR (MDRD) Af Amer Est GFR (MDRD) Non-Af BUN/Creatinine Ratio Glucose Calcium POC Glucose 447 H <Cornel Smith MD - Last Filed: 11/16/22 04:24> MDM MDM Narrative Medical decision making narrative: Patient really did not want a work-up done. We agreed that we would initially do PGT. This was elevated. We gave subcu insulin. It ends up we may have underdosed this based on the sliding scale that I was later able to find. Her glucose level did not really drop. At this point we did do blood work. She has anemia which is chronic. She has elevated BUN and creatinine consistent with her renal disease. No sign of elevated anion gap or decreased bicarb. Patient's being redosed with insulin. She reaffirms that she feels fine. She does not feel ill in any way. My plan is to try to get her blood sugar down. I really cannot give her large volumes of fluid because she is on dialysis. She gets dialysis Saturday and Saturday and just had this yesterday. She may need an increase in her Tresiba Lantus or sliding scale to further manage this. Dr. Smith: Patient endorsed to me by Dr. Lizarraga to recheck a blood sugar on this patient with hyperglycemia. She is asymptomatic with it. Her glucose remains above 400 even after his boluses of insulin subcutaneously. When her repeat sugar was still above 400, she was administered 12 units of lispro intravenously and given a small bolus of approximately 500 mL of normal saline. Her repeat blood sugar is now 333. It was felt that as long this she went below 400 because she has a normal anion gap that she could be discharged. She will follow-up with her chicken catcher and her primary care provider regarding her elevated blood sugar/hyperglycemia secondary to diabetes. Disposition is discharged in stable condition. Lab Data Labs: Laboratory Results - last 24 hr 11/15/22 11/15/22 11/16/22 19:33 21:58 00:00 WBC RBC Hgb Hct MCV MCH MCHC RDW Std Deviation RDW Coeff of Valentina Plt Count MPV Immature Gran % (Auto) Neut % (Auto) Lymph % (Auto) [place] % (Auto) Eos % (Auto) Baso % (Auto) Absolute Neuts (auto) Absolute Lymphs (auto) Nucleated RBC % Differential Comment Sodium Potassium Chloride Carbon Dioxide Anion Gap BUN Creatinine Estim Creat Clear Calc Est GFR (MDRD) Af Amer Est GFR (MDRD) Non-Af BUN/Creatinine Ratio Glucose Calcium POC Glucose 412 H 420 H 487 H* 11/16/22 11/16/22 11/16/22 00:22 00:22 01:16 WBC 6.5 RBC 2.57 L Hgb 7.9 L Hct 24.0 L MCV 93.4 MCH 30.7 MCHC 32.9 RDW Std Deviation 55.1 H RDW Coeff of Valentina 16.2 H Plt Count 74 L MPV 10.4 Immature Gran % (Auto) 0.600 Neut % (Auto) 82.3 H Lymph % (Auto) 9.0 L [place] % (Auto) 5.7 Eos % (Auto) 2.4 Baso % (Auto) 0.0 Absolute Neuts (auto) 5.4 Absolute Lymphs (auto) 0.59 L Nucleated RBC % 0 Differential Comment SCANNED Sodium 132 L Potassium 3.8 Chloride 98 Carbon Dioxide 26.0 Anion Gap 8 BUN 43 H Creatinine 3.99 H Estim Creat Clear Calc 16.84 Est GFR (MDRD) Af Amer 15 L Est GFR (MDRD) Non-Af 12 L BUN/Creatinine Ratio 10.8 Glucose 486 H* Calcium 8.1 L POC Glucose 456 H* 11/16/22 02:57 WBC RBC Hgb Hct MCV MCH MCHC RDW Std Deviation RDW Coeff of Valentina Plt Count MPV Immature Gran % (Auto) Neut % (Auto) Lymph % (Auto) [place] % (Auto) Eos % (Auto) Baso % (Auto) Absolute Neuts (auto) Absolute Lymphs (auto) Nucleated RBC % Differential Comment Sodium Potassium Chloride Carbon Dioxide Anion Gap BUN Creatinine Estim Creat Clear Calc Est GFR (MDRD) Af Amer Est GFR (MDRD) Non-Af BUN/Creatinine Ratio Glucose Calcium POC Glucose 447 H Discharge Plan Triage Chief Complaint: Hyperglycemia ED Provider: Alex Lizarraga Dx/Rx/DC Orders Clinical Impression: Hyperglycemia Instructions: ED Diabetic Hyperglycemia Prescriptions: No Action Xifaxan 550 MG tablet 550 mg PO BID sucralfate [Carafate] 1 gram Tablet 1 g PO QHS pantoprazole 40 mg Tablet,Delayed Release (Dr/Ec) 40 mg PO DAILY sertraline 50 mg Tablet 75 mg PO QHS ursodiol 300 mg capsule 300 mg PO BID Label Comments: . carbamazepine 100 mg Tablet Extended Release 12 Hr 100 mg PO BID zinc 50 mg Tablet 50 mg PO DAILY Label Comments: PER PHARMACY NOT COVERED BY INSURANCE THROUGH [employer]. PHARMACY UNSURE IF SHE IS GETTING OTC carvedilol 3.125 mg tablet 6.25 mg PO BID torsemide 20 mg Tablet 80 mg PO DAILY Hold Instructions: Hold for 3 days then resume torsemide 20 mg daily lurasidone 40 mg Tablet 40 mg PO LUNCH ergocalciferol (vitamin D2) [Vitamin D2] 1,250 mcg (50,000 unit) capsule 1,250 unit PO MOTH levothyroxine 75 mcg tablet 75 mcg PO DAILY ondansetron 4 mg tablet,disintegrating 8 mg PO Q8H PRN (Reason: Nausea And Vomiting) insulin lispro [Humalog KwikPen Insulin] 100 unit/mL insulin pen 7 unit subcut [facility] Label Comments: +SLIDING SCALE UP TO 40 UNITS DAILY. lactulose 20 gram/30 mL solution 20 g PO BID Rx Instructions: titrate for 3-4 BMs per day bisacodyl 10 mg Suppository 10 mg MA DAILY PRN (Reason: Constipation) dextromethorphan HBr 10 mg/15 mL Syrup 10 mg PO Q6H PRN (Reason: Cough) darbepoetin sree in polysorbat 40 mcg/0.4 mL Syringe 40 mcg SUBCUT QWEEK insulin degludec [Tresiba FlexTouch U-100] 100 unit/mL (3 mL) Insulin Pen 10 unit SUBCUT DAILY acetaminophen 500 mg Tablet 500 mg PO Q6H PRN (Reason: Pain) ascorbic acid (vitamin C) 500 mg tablet 500 mg PO DAILY magnesium hydroxide [Milk of Magnesia] 400 mg/5 mL Suspension 2,400 mg PO DAILY PRN (Reason: Constipation) insulin lispro [Humalog KwikPen Insulin] 100 unit/mL insulin pen See Protocol SUBCUT [facility] Protocol: 6. Sliding Scale Insulin Custom Condition: 151-200 Dose/Route: 2 Condition: 201-250 Dose/Route: 4 Condition: 251-300 Dose/Route: 6 Condition: 301-350 Dose/Route: 8 Condition: 351-400 Dose/Route: 10 Protocol Text: Custom Sliding Scale insulin glargine [Lantus Solostar U-100 Insulin] 100 unit/mL (3 mL) Insulin Pen 10 unit subcut DAILY dexamethasone 4 mg Tablet 6 mg PO DAILY 7 Days Qty: 11 0RF Primary Care Provider: Janay Canchola Referrals: Janay Canchola MD [Primary Care Provider] - 3-5 Days if not improving Disposition Disposition: Home, Self Care
[2022-11-15 22:15] LABS: Bedside Glucose 420 mg/dL (74-106)
[2022-11-15] MEDS: Insulin Lispro 100 UNIT/ML INSULN.PEN 10 UNIT SC (22:40)
[2022-11-15 22:42] VITALS: PULSE 68; RESP 15; O2SAT 99
[2022-11-16] VITALS: PULSE 60; RESP 15; O2SAT 95
[2022-11-16 00:20] LABS: Bedside Glucose 487 mg/dL (74-106)
[2022-11-16] MEDS: Insulin Lispro 100 UNIT/ML INSULN.PEN 15 UNIT SC ×2 (00:20→01:52)
[2022-11-16 00:28] LABS: Absolute Lymphocyte Count 0.59 X10^3/uL (0.83-4.51); Absolute Neutrophil Count 5.4 X10^3/uL (2.0-7.7); Eosinophil# 0.16 X10^3/uL; Eosinophils% 2.4 % (0-5); Hemoglobin 7.9 g/dL (12.0-15.0); Lymphocyte # 0.59 X10^3/ul (0.83-4.51); Mean Corp Hgb Conc 32.9 g/dL (32-36); Mean Corpuscular Hgb 30.7 pg (27.0-32.0); Mean Corpuscular Volume 93.4 fL (81-99); Mean Platelet Vol. 10.4 fl (6.2-12.0); Monocyte# 0.37 X10^3/uL; Monocyte% 5.7 % (0-10); NRBC Flagged by Analyzer 0 % (0-5); Neutrophil # 5.38 X10^3/uL (2.7-7.7); Neutrophil % 82.3 % (47-70); POSITIVE COUNT YES; POSITIVE DIFFERENTIAL YES; Platelet Count 74 K/mm3 (150-450); RBC Distribution Width CV 16.2 % (11.6-14.6); RBC Distribution Width SD 55.1 fl (35.1-43.9); Red Blood Count 2.57 M/mm3 (4.2-5.4); White Blood Count 6.5 K/mm3 (4.4-11.0)
[2022-11-16 00:33] LABS: Differential Indicated SCAN CRITERIA MET
[2022-11-16 00:49] LABS: Anion Gap 8 (5-15); BUN 43 mg/dL (7-18); BUN/Creat Ratio 10.8 RATIO (10-20); Calcium,Total 8.1 mg/dL (8.5-10.1); Chloride 98 mmol/L (98-107); Creatinine, Serum 3.99 mg/dL (0.55-1.02); EST Glomerular Filtration Rate 12 mL/min (>60); Est Glom Filt Rate - Afr Amer 15 mL/min (>60); Estimated Creatinine Clearance 16.84 ml/min; Glucose 486 mg/dL (74-106); Potassium 3.8 mmol/L (3.5-5.1); Sodium Level 132 mmol/L (136-145)
[2022-11-16 01:35] LABS: Bedside Glucose 456 mg/dL (74-106)
[2022-11-16 01:40] LABS: Differential Comment SCANNED
[2022-11-16 03:16] LABS: Bedside Glucose 447 mg/dL (74-106)
[2022-11-16 03:33] VITALS: RESP 16
[2022-11-16] MEDS: 0.9% Normal Saline 1,000 ML 999 ML IV (03:33)
[2022-11-16 04:36] LABS: Bedside Glucose 333 mg/dL (74-106)
[2022-11-16 06:10] LABS: Bedside Glucose 238 mg/dL (74-106)
[2022-11-16 06:14] VITALS: BP 150/89; PULSE 86; RESP 20; O2SAT 95
== END 2022-11-16 06:15 | disposition home or self-care (01) ==
PROVIDERS: Emergency Provider Emergency Medicine; PCP Internal Medicine; Visit Provider Emergency Medicine
DX: E11.65 Type 2 diabetes mellitus with hyperglycemia (principal); E11.22 Type 2 diabetes mellitus with diabetic chronic kidney disease; E11.42 Type 2 diabetes mellitus with diabetic polyneuropathy; N18.32 Chronic kidney disease, stage 3b; I12.9 Hypertensive chronic kidney disease with stage 1 through stage 4 chronic kidney disease, or unspecified chronic kidney disease; D64.9 Anemia, unspecified; F41.9 Anxiety disorder, unspecified
CPT/HCPCS: 80048; 82962; 85025; 99283

== ENCOUNTER 2022-11-29 19:05 | Emergency (ER) | payer MEDICARE, MEDICAID, SELFPAY ==
[2022-11-29 19:07] VITALS: BP 142/48; PULSE 83; RESP 18; TEMP 36.4; O2SAT 95; BMI 24.1
--- NOTE | 2022-11-29 19:31 | EX.ED.DYSGE1 ---
HPI History of Present Illness Chief Complaint: Abn Labs Narrative Narrative: Patient presents with anemia. She has liver disease as well as end-stage renal disease on dialysis, she is found to have low hemoglobin on outpatient testing. She however is asymptomatic she has no shortness of breath, she does not feel any more weak than normal. Her stools are light brown. No other bleeding, she has been anemic and thrombocytopenic in the past. [facility] Medical History Acute on chronic anemia Acute on chronic renal insufficiency Anemia Autoimmune hepatitis Bacteremia due to methicillin resistant Staphylococcus epidermidis Bipolar disorder CHI (closed head injury) Chronic pain Chronic renal insufficiency, stage III (moderate) Cirrhosis of liver Debility Depression Diabetes mellitus, type 2 Encephalopathy acute Essential hypertension Reilly's thyroiditis Hepatic encephalopathy Hepatitis Hypothyroidism Kidney disease MRSA bacteremia Myocardial infarct Non-smoker On home oxygen therapy Pancreatitis Pancytopenia Peripheral neuropathy Right lower lobe pneumonia Schizoaffective disorder Severe sepsis Splenomegaly Stage 3b chronic kidney disease (CKD) Weakness Home Medications rifaximin 550 mg tablet (Xifaxan) 550 mg PO BID IBS 11/04/17 [History Last Taken 06/14/22] pantoprazole 40 mg tablet,delayed release 40 mg PO DAILY GERD 03/20/21 [History Last Taken 06/14/22] sertraline 50 mg tablet 75 mg PO QHS DEPRESSION 03/20/21 [History Last Taken 06/14/22] sucralfate 1 gram tablet (Carafate) 1 g PO QHS STOMACH 03/20/21 [History Last Taken 06/14/22] ursodiol 300 mg capsule 300 mg PO BID LIVER 04/25/21 [History Last Taken 06/14/22] carbamazepine 100 mg tablet,extended release,12 hr 100 mg PO BID bipolar 04/29/21 [History Last Taken 06/14/22] zinc 50 mg tablet 50 mg PO DAILY SUPPLEMENT 09/18/21 [History Last Taken 06/14/22] carvedilol 3.125 mg tablet 6.25 mg PO BID HEART 03/23/22 [History Last Taken 06/14/22] lurasidone 40 mg tablet 40 mg PO LUNCH MOOD 04/16/22 [History Last Taken 06/14/22] torsemide 20 mg tablet 80 mg PO DAILY diuretic 04/16/22 [History Last Taken 06/14/22] ergocalciferol (vitamin D2) 1,250 mcg (50,000 unit) capsule (Vitamin D2) 1,250 unit PO MOTH SUPPLMENT 05/14/22 [History Last Taken 06/14/22] insulin lispro 100 unit/mL subcutaneous pen (Humalog KwikPen (U-100) Insulin) 7 unit subcut ACHS diabetes 05/14/22 [History Last Taken 06/14/22] levothyroxine 75 mcg tablet 75 mcg PO DAILY THYROID 05/14/22 [History Last Taken 06/14/22] ondansetron 4 mg disintegrating tablet 8 mg PO Q8H PRN Nausea And Vomiting 05/14/22 [History Last Taken 06/13/22] lactulose 20 gram/30 mL oral solution 20 g PO BID liver failure 06/11/22 [History Last Taken 06/14/22] acetaminophen 500 mg tablet 500 mg PO Q6H PRN Pain 11/03/22 [History Last Taken Unknown] ascorbic acid (vitamin C) 500 mg tablet 500 mg PO DAILY supplement 11/03/22 [History Last Taken Unknown] bisacodyl 10 mg rectal suppository 10 mg OK DAILY PRN Constipation 11/03/22 [History Last Taken Unknown] darbepoetin sree in polysorbat 40 mcg/0.4 mL in polysorbate injection syringe 40 mcg subcut QWEEK bone marrow 11/03/22 [History Last Taken Unknown] dextromethorphan HBr 10 mg/15 mL oral syrup 10 mg PO Q6H PRN Cough 11/03/22 [History Last Taken Unknown] insulin degludec 100 unit/mL (3 mL) subcutaneous pen (Tresiba FlexTouch U-100 insulin) 10 unit subcut DAILY diabetes 11/03/22 [History Last Taken Unknown] insulin glargine 100 unit/mL (3 mL) subcutaneous pen (Lantus Solostar U-100 Insulin) 10 unit subcut DAILY DM2 11/03/22 [History Last Taken Unknown] insulin lispro 100 unit/mL subcutaneous pen (Humalog KwikPen (U-100) Insulin) See Protocol subcut ACHS diabetes 11/03/22 [History Last Taken Unknown] magnesium hydroxide 400 mg/5 mL oral suspension (Milk of Magnesia) 2,400 mg PO DAILY PRN Constipation 11/03/22 [History Last Taken Unknown] dexamethasone 4 mg tablet 6 mg PO DAILY 7 days #11 tabs 11/07/22 [Rx Last Taken Unknown] Allergy/AdvReac Type Severity Reaction Status Date / Time adhesive Allergy Rash Verified 11/15/22 18:47 escitalopram oxalate Allergy blindness Verified 11/15/22 18:47 [From Lexapro] Fish Containing Products Allergy Other Verified 11/15/22 18:47 gabapentin [From Neurontin] Allergy Alan Verified 11/15/22 18:47 Jez's Syndrome lamotrigine [From Lamictal] Allergy Blindness Verified 11/15/22 18:47 metformin Allergy PT UNSURE Verified 11/15/22 18:47 OF REACTION topiramate [From Topamax] Allergy Other Verified 11/15/22 18:47 sour cream AdvReac Severe Anaphylaxis Uncoded 11/02/22 12:39 Preservatives AdvReac Intermediate passed Uncoded 11/02/22 12:39 out, lungs deflated Family History Father CVA (cerebral vascular accident) Myocardial infarction Heart disease CAD (coronary artery disease) Grandmother CHF (congestive heart failure) Sister Hypertension Mother Heart disease Surgical History H/O: hysterectomy History of abdominal paracentesis (10/2019) History of appendectomy History of cholecystectomy S/P TIPS (transjugular intrahepatic portosystemic shunt) Social History household members: significant other housing: house Smoking Status: Never smoker alcohol intake: never details: Unknown substance use type: does not use ROS ROS ED ROS Narrative Past medical history: Reviewed Medications: Reviewed Social history: Noncontributory Review of systems: All systems negative except as indicated General: No fever. Chronic weakness but unchanged Eyes: No visual changes ENT: No upper airway congestion, normal voice Neck: No neck pain Cardiovascular: No chest pain Respiratory: No shortness of breath or cough Gastrointestinal: No abdominal pain, nausea vomiting or diarrhea Musculoskeletal: Denies myalgias no difficulty with ambulation Skin: No rash Neurological: No memory loss, confusion or any focal weakness Hematologic: No easy bleeding or easy bruising EXAM Physical Exam Narrative Exam Narrative: Physical exam General: Patient appears chronically ill. She does not appear in acute distress currently. Head: Normocephalic, Atraumatic Eyes: Conjunctiva are slightly pale. ENT: Moist mucous membranes Neck: Supple, Nontender, No lymphadenopathy Cardiovascular: Regular rate, Regular rhythm Respiratory: No distress, slightly decreased breath sounds on the right consistent with known pleural effusion. Chest wall: Right chest wall dialysis catheter is intact without any signs of infection Abdomen: Soft, Nontender, Nondistended Back: Nontender, Normal Inspection. Negative for: CVA tenderness Extremities: Nontender, trace bilateral edema Skin: Somewhat pale. No rash Neurological: Alert, Normal Strength, Normal Sensation Const Vital Signs: 11/29/22 19:07 11/29/22 19:11 Temperature 97.5 F L Temperature Source Temporal Pulse Rate 83 Respiratory Rate 18 Respiratory Effort Normal Non-Labored Respiratory Pattern Normal Blood Pressure 142/48 H Blood Pressure Mean 79 Pulse Ox 95 Oxygen Delivery Method Room Air MDM MDM MDM Narrative Medical decision making narrative: Patient's hemoglobin is 7.5 and 7.4 respectively. She has light brown stools, she does test guaiac positive but I doubt this is an upper GI bleed, she likely has chronic anemia especially that she is not symptomatic she does not feel lightheaded when she stands up or any other symptoms of orthostasis. Her anemia is likely secondary from her chronic renal disease. Since she is asymptomatic and her hemoglobin is above 5 I do not believe she will benefit from transfusion. I talked to her at length about transfusion, admission especially that she did have trace blood in her stool however at this time she wants to be discharged which is reasonable she can follow-up with GI, I will refer her. If she feels weak or sees dark stools or bloody stool she is to return. A. Problems addressed ( does not have to be diagnoses) Anemia, end-stage renal disease, positive fecal occult. B. Amount and/or complexity of the data (2 out of 3) 1. Any 3 I reviewed patient's outpatient hemoglobin which was 6.2 and platelets were 47. CBC and CMP are reviewed hemoglobin 7.5. She has slight hypokalemia but she has dialysis tomorrow and can be addressed during dialysis. 2. Independent interpretation of test Telemetry: Sinus rhythm with a rate in the 80s. C. Risk of complications and/or morbidity Differential diagnosis: I thought about an upper GI bleed however the patient does not have black stools. I have thought about admitting the patient as above however the patient wants to be discharged, she has stable hemoglobin on her repeat hemoglobin. Patient has chronic renal failure she is on hemodialysis, I checked her potassium and electrolytes, potassium is slightly low but she has dialysis tomorrow and he can be addressed there. Her EKG is unremarkable. Lab Data Labs: Laboratory Results - last 24 hr 11/29/22 11/29/22 11/29/22 19:40 19:40 19:40 WBC 4.2 L RBC 2.29 L Hgb 7.5 L Hct 22.1 L MCV 96.5 MCH 32.8 H MCHC 33.9 RDW Std Deviation 61.5 H RDW Coeff of Valentina 17.6 H Plt Count 59 L MPV 11.2 Immature Gran % (Auto) 0.500 Neut % (Auto) 84.4 H Lymph % (Auto) 6.1 L [place] % (Auto) 7.8 Eos % (Auto) 1.2 Baso % (Auto) 0.0 Absolute Neuts (auto) 3.6 Absolute Lymphs (auto) 0.26 L Nucleated RBC % 0 Differential Comment SCANNED Diff Path Review May foll Platelet Estimate MKD DEC Sodium 131 L Potassium 3.3 L Chloride 95 L Carbon Dioxide 27.0 Anion Gap 9 BUN 35 H Creatinine 4.01 H Estim Creat Clear Calc 16.76 Est GFR (MDRD) Af Amer 15 L Est GFR (MDRD) Non-Af 12 L BUN/Creatinine Ratio 8.7 L Glucose 457 H* Calcium 7.9 L Total Bilirubin 0.80 AST 17 ALT 27 Alkaline Phosphatase 156 H Total Protein 5.8 L Albumin 1.5 L Globulin 4.3 H Albumin/Globulin Ratio 0.3 L Crossmatch See Detail 11/29/22 20:50 WBC RBC Hgb 7.4 L Hct 22.4 L MCV MCH MCHC RDW Std Deviation RDW Coeff of Valentina Plt Count MPV Immature Gran % (Auto) Neut % (Auto) Lymph % (Auto) [place] % (Auto) Eos % (Auto) Baso % (Auto) Absolute Neuts (auto) Absolute Lymphs (auto) Nucleated RBC % Differential Comment Diff Path Review Platelet Estimate Sodium Potassium Chloride Carbon Dioxide Anion Gap BUN Creatinine Estim Creat Clear Calc Est GFR (MDRD) Af Amer Est GFR (MDRD) Non-Af BUN/Creatinine Ratio Glucose Calcium Total Bilirubin AST ALT Alkaline Phosphatase Total Protein Albumin Globulin Albumin/Globulin Ratio Crossmatch EKG Initial EKG: Comments: Sinus rhythm with a rate of 82. Normal OK interval. QTC slightly prolonged at 476. . Left axis deviation. No obvious ischemic changes. Interpreted by emergency Dr. Discharge Plan Triage Chief Complaint: Abn Labs ED Provider: Danial Medina Dx/Rx/DC Orders Prescriptions: No Action Xifaxan 550 MG tablet 550 mg PO BID sucralfate [Carafate] 1 gram Tablet 1 g PO QHS pantoprazole 40 mg Tablet,Delayed Release (Dr/Ec) 40 mg PO DAILY sertraline 50 mg Tablet 75 mg PO QHS ursodiol 300 mg capsule 300 mg PO BID Label Comments: . carbamazepine 100 mg Tablet Extended Release 12 Hr 100 mg PO BID zinc 50 mg Tablet 50 mg PO DAILY Label Comments: PER PHARMACY NOT COVERED BY INSURANCE THROUGH [employer]. PHARMACY UNSURE IF SHE IS GETTING OTC carvedilol 3.125 mg tablet 6.25 mg PO BID torsemide 20 mg Tablet 80 mg PO DAILY Hold Instructions: Hold for 3 days then resume torsemide 20 mg daily lurasidone 40 mg Tablet 40 mg PO LUNCH ergocalciferol (vitamin D2) [Vitamin D2] 1,250 mcg (50,000 unit) capsule 1,250 unit PO MOTH levothyroxine 75 mcg tablet 75 mcg PO DAILY ondansetron 4 mg tablet,disintegrating 8 mg PO Q8H PRN (Reason: Nausea And Vomiting) insulin lispro [Humalog KwikPen Insulin] 100 unit/mL insulin pen 7 unit subcut ACHS Label Comments: +SLIDING SCALE UP TO 40 UNITS DAILY. lactulose 20 gram/30 mL solution 20 g PO BID Rx Instructions: titrate for 3-4 BMs per day bisacodyl 10 mg Suppository 10 mg OK DAILY PRN (Reason: Constipation) dextromethorphan HBr 10 mg/15 mL Syrup 10 mg PO Q6H PRN (Reason: Cough) darbepoetin sree in polysorbat 40 mcg/0.4 mL Syringe 40 mcg SUBCUT QWEEK insulin degludec [Tresiba FlexTouch U-100] 100 unit/mL (3 mL) Insulin Pen 10 unit SUBCUT DAILY acetaminophen 500 mg Tablet 500 mg PO Q6H PRN (Reason: Pain) ascorbic acid (vitamin C) 500 mg tablet 500 mg PO DAILY magnesium hydroxide [Milk of Magnesia] 400 mg/5 mL Suspension 2,400 mg PO DAILY PRN (Reason: Constipation) insulin lispro [Humalog KwikPen Insulin] 100 unit/mL insulin pen See Protocol SUBCUT [facility] Protocol: 6. Sliding Scale Insulin Custom Condition: 151-200 Dose/Route: 2 Condition: 201-250 Dose/Route: 4 Condition: 251-300 Dose/Route: 6 Condition: 301-350 Dose/Route: 8 Condition: 351-400 Dose/Route: 10 Protocol Text: Custom Sliding Scale insulin glargine [Lantus Solostar U-100 Insulin] 100 unit/mL (3 mL) Insulin Pen 10 unit subcut DAILY dexamethasone 4 mg Tablet 6 mg PO DAILY 7 Days Qty: 11 0RF Primary Care Provider: Danial Ring Referrals: Janay Canchola MD [Med Staff - [employer]] -
--- NOTE | 2022-11-29 19:36 | EKG12_ITS ---
Test Reason : DYSRHYTHMIA Blood Pressure : / mmHG Vent. Rate : 082 BPM Atrial Rate : 082 BPM P-R Int : 146 ms QRS Dur : 114 ms QT Int : 408 ms P-R-T Axes : 028 -35 066 degrees QTc Int : 476 ms Normal sinus rhythm Left axis deviation Abnormal ECG Confirmed by DEDE ZAMBRANO, ROSA ([id number]), communications editor NORA MENDES ([id number]) on 12/04/2022 9:25:06 AM Referred By: SARA Confirmed By:ROSA AGUAYO MD
[2022-11-29 19:59] LABS: Absolute Lymphocyte Count 0.26 X10^3/uL (0.83-4.51); Absolute Neutrophil Count 3.6 X10^3/uL (2.0-7.7); Eosinophil# 0.05 X10^3/uL; Eosinophils% 1.2 % (0-5); Hematocrit 22.1 % (37-47); Hemoglobin 7.5 g/dL (12.0-15.0); Lymphocyte # 0.26 X10^3/ul (0.83-4.51); Lymphocyte % 6.1 % (19-41); Mean Corp Hgb Conc 33.9 g/dL (32-36); Mean Corpuscular Hgb 32.8 pg (27.0-32.0); Mean Corpuscular Volume 96.5 fL (81-99); Mean Platelet Vol. 11.2 fl (6.2-12.0); Monocyte# 0.33 X10^3/uL; Monocyte% 7.8 % (0-10); NRBC Flagged by Analyzer 0 % (0-5); Neutrophil # 3.57 X10^3/uL (2.7-7.7); Neutrophil % 84.4 % (47-70); POSITIVE COUNT YES; POSITIVE DIFFERENTIAL YES; Platelet Count 59 K/mm3 (150-450); RBC Distribution Width CV 17.6 % (11.6-14.6); RBC Distribution Width SD 61.5 fl (35.1-43.9); Red Blood Count 2.29 M/mm3 (4.2-5.4); White Blood Count 4.2 K/mm3 (4.4-11.0)
[2022-11-29 20:03] LABS: Differential Indicated SCAN CRITERIA MET
[2022-11-29 20:24] LABS: ALB/GLOB Ratio 0.3 RATIO (0.9-2.4); AST(SGOT) 17 U/L (15-37); Alanine Aminotransfer ALT/SGPT 27 U/L (13-56); Albumin, Serum 1.5 g/dL (3.2-5.0); Alkaline Phosphatase 156 U/L (45-117); Anion Gap 9 (5-15); BUN 35 mg/dL (7-18); BUN/Creat Ratio 8.7 RATIO (10-20); Calcium,Total 7.9 mg/dL (8.5-10.1); Chloride 95 mmol/L (98-107); Creatinine, Serum 4.01 mg/dL (0.55-1.02); EST Glomerular Filtration Rate 12 mL/min (>60); Est Glom Filt Rate - Afr Amer 15 mL/min (>60); Estimated Creatinine Clearance 16.76 ml/min; Globulin 4.3 g/dL (2.2-4.2); Glucose 457 mg/dL (74-106); Potassium 3.3 mmol/L (3.5-5.1); Protein, Total 5.8 g/dL (6.4-8.2); Sodium Level 131 mmol/L (136-145)
[2022-11-29 20:26] LABS: Differential Comment SCANNED
[2022-11-29 20:30] LABS: Platelet Estimate MKD DEC (ADEQ)
[2022-11-29 20:56] LABS: Hematocrit 22.4 % (37-47); Hemoglobin 7.4 g/dL (12.0-15.0)
--- NOTE | 2022-11-29 22:31 | NURSING ---
attempt to call report to [facility] no answer.
[2022-11-29 23:47] VITALS: BP 144/73; PULSE 81; PULSE 82; RESP 18; O2SAT 93; O2SAT 94
[2022-12-03 09:32] LABS: Pathologist Review Reviewed
== END 2022-11-30 02:15 | disposition home or self-care (01) ==
PROVIDERS: Emergency Provider Emergency Medicine; PCP Family Medicine; Visit Provider Emergency Medicine
DX: N18.6 End stage renal disease (principal); Z99.2 Dependence on renal dialysis; I25.2 Old myocardial infarction; D64.9 Anemia, unspecified; Z99.81 Dependence on supplemental oxygen
CPT/HCPCS: 80053; 82274; 85014; 85018; 85025; 86850; 86900; 86901; 93005; 99285; A4216

== ENCOUNTER → 2022-12-04 | Outpatient (CLI) | payer MEDICARE, MEDICAID, SELFPAY ==
--- NOTE | 2022-12-04 09:28 | VDUE_ITS ---
Reason For Study: dialysis Right Arm Left Arm Right cephalic vein is compressible. Left cephalic vein is compressible. Right Cephalic Vein at the shoulder Left Cephalic Vein at the shoulder measures .07 x .08 cm. measures .07 x .07 cm. Right Cephalic Vein mid bicep measures .08 Left Cephalic Vein at mid bicep measures .07 x .08 cm. x .06 cm. Right Cephalic Vein above antecub Left Cephalic Vein above antecub measures .08 measures .09 x .12 cm. x .1 cm. Right Cephalic Vein below antecub Left Cephalic Vein below antecub measures .08 measures .09 x .12 cm. x .09 cm. Right Cephalic Vein in the forearm Left Cephalic Vein in the forearm measures .09 x .1 cm. measures .06 x .08 cm. Cephalic V at the wrist is too small to Left Cephalic Vein at the wrist measures .06 assess. x .08 cm. Right basilic vein is compressible. Left basilic vein is compressible. Right Basilic Vein mid bicep measures .15 Basilic vein at bicep measures .16 x .16 cm. x .16 cm. Basilic vein above antecub measures .14 x .13 Right Basilic Vein above antecub measures .09 cm. x .09 cm. Basilic V is too small to assess below this Basilic V is too small to assess below this level. level. Brachial art. .34 x .36 cm. Brachial art. .39 x .46 cm. Brachial art. 75.7 cm/s. Brachial art. 81.4 cm/s. Radial art. .17 x .2 cm. Radial art. .12 x .13 cm. Radial art. 105.8 cm/s. Radial art. 121.4 cm/s. VL/Dialysis Vein Map PRE-OP BILAT Interpretation Summary Patent and compressible bilateral upper extremity cephalic and basilic veins wi th dimensions as noted Bilateral cephalic veins extraordinarily diminutive and bilateral basilic veins not adequate for fistula creation Bilateral brachial and radial arteries appear to have normal flow Ordering Physician: Pravin Gonsalves Performed By: Dave Pichardo RVT ???
== END | disposition home or self-care (01) ==
PROVIDERS: PCP Family Medicine; Referring Provider Internal Medicine Nephrology; Visit Provider Internal Medicine Nephrology
DX: N18.6 End stage renal disease (principal); Z99.2 Dependence on renal dialysis
CPT/HCPCS: 93985

== ENCOUNTER 2022-12-07 21:14 | Inpatient (IN) | payer MEDICARE, MEDICAID, SELFPAY ==
[2022-12-07 21:16] VITALS: BP 139/84; PULSE 94; RESP 22; TEMP 36.1; O2SAT 91; BMI 24.8
--- NOTE | 2022-12-07 21:42 | EKG12_ITS ---
Test Reason : MENTAL STATUS CHANGE Blood Pressure : / mmHG Vent. Rate : 093 BPM Atrial Rate : 093 BPM P-R Int : 146 ms QRS Dur : 112 ms QT Int : 368 ms P-R-T Axes : 009 -37 071 degrees QTc Int : 457 ms Normal sinus rhythm Left axis deviation Left ventricular hypertrophy with repolarization abnormality ( R in aVL , [place] product ) Abnormal ECG Confirmed by DEDE ZAMBRANO, ROSA ([id number]), social media editor NORA MENDES ([id number]) on 12/10/2022 10:27:41 AM Referred By: RAYNA Confirmed By:ROSA AGUAYO MD
--- NOTE | 2022-12-07 21:42 | CT_ITS ---
EXAM: CT HEAD WITHOUT INTRAVENOUS CONTRAST CLINICAL INDICATION: altered mental status TECHNIQUE: Multiple axial images were obtained of the head without intravenous contrast. This CT exam was performed using one or more of the following dose reduction techniques: automated exposure control, adjustment of the mA and/or kV according to patient size, and/or use of iterative reconstruction technique. This report was created using [employer] report generation technology. RADIATION DOSE: CTDIvol = 44.99 mGy, DLP = 796.11 mGy-cm. COMPARISON: 06/11/2022. FINDINGS: BRAIN AND EXTRA-AXIAL SPACES: Unremarkable. No intra- or extra-axial hemorrhage. No evidence of acute infarct. No intracranial mass or mass effect. There is preservation of the thakkar/white matter interface. Posterior fossa structures are unremarkable. Ventricles are appropriate for age. No hydrocephalus. Basal cisterns are patent. BONES/JOINTS: Unremarkable. No discrete lytic or blastic abnormalities. SINUSES: Unremarkable as visualized. Clear. MASTOID AIR CELLS: Unremarkable. Clear. ORBITS: Visualized globes, extraocular muscles, optic nerves and retrobulbar fat appear unremarkable. CT/Brain/Head without Contrast IMPRESSION: No acute intracranial abnormality. Electronically Signed: Rahul Lambert MD at 0:00 EST ,
--- NOTE | 2022-12-07 21:53 | EX.ED.DYSGE1 ---
HPI History of Present Illness Chief Complaint: Alt LOC Informant: EMS and SNF Narrative Narrative: Patient brought in via EMS secondary to weakness and drowsiness. Patient unable to provide any significant history. I spoke with the care provider at her ECF. She states typically patient will interact and talk back, but will have intermittent periods of weakness where she will require assistance and sitting up or doing regular activities. Earlier this morning she left the facility to go see a physician about a kidney transplant evaluation. She went from there to dialysis and reportedly completed her full run. Staff states when she returned to the correction following dialysis she was very drowsy and weak. She has remained like this the rest of the evening. No fever has been noted. Her vital signs have been rather unremarkable. [facility] Medical History Acute on chronic anemia Acute on chronic renal insufficiency Anemia Autoimmune hepatitis Bacteremia due to methicillin resistant Staphylococcus epidermidis Bipolar disorder CHI (closed head injury) Chronic pain Chronic renal insufficiency, stage III (moderate) Cirrhosis of liver Debility Depression Diabetes mellitus, type 2 Encephalopathy acute Essential hypertension Reilly's thyroiditis Hepatic encephalopathy Hepatitis Hypothyroidism Kidney disease MRSA bacteremia Myocardial infarct Non-smoker On home oxygen therapy Pancreatitis Pancytopenia Peripheral neuropathy Right lower lobe pneumonia Schizoaffective disorder Severe sepsis Splenomegaly Stage 3b chronic kidney disease (CKD) Weakness Home Medications rifaximin 550 mg tablet (Xifaxan) 550 mg PO BID IBS 11/04/17 [History Last Taken 06/14/22] pantoprazole 40 mg tablet,delayed release 40 mg PO DAILY GERD 03/20/21 [History Last Taken 06/14/22] sertraline 50 mg tablet 75 mg PO QHS DEPRESSION 03/20/21 [History Last Taken 06/14/22] sucralfate 1 gram tablet (Carafate) 1 g PO QHS STOMACH 03/20/21 [History Last Taken 06/14/22] ursodiol 300 mg capsule 300 mg PO BID LIVER 04/25/21 [History Last Taken 06/14/22] carbamazepine 100 mg tablet,extended release,12 hr 100 mg PO BID bipolar 04/29/21 [History Last Taken 06/14/22] zinc 50 mg tablet 50 mg PO DAILY SUPPLEMENT 09/18/21 [History Last Taken 06/14/22] carvedilol 3.125 mg tablet 6.25 mg PO BID HEART 03/23/22 [History Last Taken 06/14/22] lurasidone 40 mg tablet 40 mg PO LUNCH MOOD 04/16/22 [History Last Taken 06/14/22] torsemide 20 mg tablet 80 mg PO DAILY diuretic 04/16/22 [History Last Taken 06/14/22] ergocalciferol (vitamin D2) 1,250 mcg (50,000 unit) capsule (Vitamin D2) 1,250 unit PO MOTH SUPPLMENT 05/14/22 [History Last Taken 06/14/22] insulin lispro 100 unit/mL subcutaneous pen (Humalog KwikPen (U-100) Insulin) 7 unit subcut ACHS diabetes 05/14/22 [History Last Taken 06/14/22] levothyroxine 75 mcg tablet 75 mcg PO DAILY THYROID 05/14/22 [History Last Taken 06/14/22] ondansetron 4 mg disintegrating tablet 8 mg PO Q8H PRN Nausea And Vomiting 05/14/22 [History Last Taken 06/13/22] lactulose 20 gram/30 mL oral solution 20 g PO BID liver failure 06/11/22 [History Last Taken 06/14/22] acetaminophen 500 mg tablet 500 mg PO Q6H PRN Pain 11/03/22 [History Last Taken Unknown] ascorbic acid (vitamin C) 500 mg tablet 500 mg PO DAILY supplement 11/03/22 [History Last Taken Unknown] bisacodyl 10 mg rectal suppository 10 mg MS DAILY PRN Constipation 11/03/22 [History Last Taken Unknown] darbepoetin sree in polysorbat 40 mcg/0.4 mL in polysorbate injection syringe 40 mcg subcut QWEEK bone marrow 11/03/22 [History Last Taken Unknown] dextromethorphan HBr 10 mg/15 mL oral syrup 10 mg PO Q6H PRN Cough 11/03/22 [History Last Taken Unknown] insulin degludec 100 unit/mL (3 mL) subcutaneous pen (Tresiba FlexTouch U-100 insulin) 10 unit subcut DAILY diabetes 11/03/22 [History Last Taken Unknown] insulin glargine 100 unit/mL (3 mL) subcutaneous pen (Lantus Solostar U-100 Insulin) 10 unit subcut DAILY DM2 11/03/22 [History Last Taken Unknown] insulin lispro 100 unit/mL subcutaneous pen (Humalog KwikPen (U-100) Insulin) See Protocol subcut ACHS diabetes 11/03/22 [History Last Taken Unknown] magnesium hydroxide 400 mg/5 mL oral suspension (Milk of Magnesia) 2,400 mg PO DAILY PRN Constipation 11/03/22 [History Last Taken Unknown] dexamethasone 4 mg tablet 6 mg PO DAILY 7 days #11 tabs 11/07/22 [Rx Last Taken Unknown] Allergy/AdvReac Type Severity Reaction Status Date / Time adhesive Allergy Rash Verified 11/15/22 18:47 escitalopram oxalate Allergy blindness Verified 11/15/22 18:47 [From Lexapro] Fish Containing Products Allergy Other Verified 11/15/22 18:47 gabapentin [From Neurontin] Allergy Alan Verified 11/15/22 18:47 Jez's Syndrome lamotrigine [From Lamictal] Allergy Blindness Verified 11/15/22 18:47 metformin Allergy PT UNSURE Verified 11/15/22 18:47 OF REACTION topiramate [From Topamax] Allergy Other Verified 11/15/22 18:47 sour cream AdvReac Severe Anaphylaxis Uncoded 11/02/22 12:39 Preservatives AdvReac Intermediate passed Uncoded 11/02/22 12:39 out, lungs deflated Family History Father CVA (cerebral vascular accident) Myocardial infarction Heart disease CAD (coronary artery disease) Grandmother CHF (congestive heart failure) Sister Hypertension Mother Heart disease Surgical History H/O: hysterectomy History of abdominal paracentesis (10/2019) History of appendectomy History of cholecystectomy S/P TIPS (transjugular intrahepatic portosystemic shunt) Social History household members: significant other housing: house Smoking Status: Never smoker alcohol intake: never details: Unknown substance use type: does not use ROS ROS ED Review of Systems ROS Unobtainable: due to encephalopathy EXAM Physical Exam Const Vital Signs: 12/07/22 21:16 12/07/22 22:20 12/07/22 23:05 Temperature 97.0 F L Temperature Source Temporal Pulse Rate 94 92 91 Respiratory Rate 22 H 22 H 25 H Blood Pressure 139/84 H 148/59 H 136/55 H Blood Pressure Mean 102 88 82 Pulse Ox 91 93 95 Oxygen Delivery Method Room Air Room Air Room Air 12/08/22 00:06 Temperature Temperature Source Pulse Rate 92 Respiratory Rate 18 Blood Pressure 134/55 H Blood Pressure Mean 81 Pulse Ox 94 Oxygen Delivery Method Room Air Positive well nourished and well developed General Appearance ED: well developed HEENT Reports moist mucous membranes Chest Wall inspection of chest normal and palpation of chest normal Resp normal respiratory effort and clear to auscultation bilaterally Cardio regular rate and regular rhythm GI non-tender Auscultation: hypoactive bowel sounds Palpation: soft Extremity normal to inspection Neuro Neuro Narrative: Patient lying with her eyes closed. She will open her eyes to command or sternal rub. She is able to tell nursing staff hold she is. She otherwise is not answering questions or following commands. 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 EKG, chest x-ray, lab work obtained. Urinalysis ordered along with head CT. Lab Data Attestation: I reviewed the patient's lab results. Labs: Laboratory Results - last 24 hr 12/07/22 12/07/22 12/07/22 22:15 23:10 23:10 WBC 6.8 RBC 2.87 L Hgb 8.9 L Hct 26.9 L MCV 93.7 MCH 31.0 MCHC 33.1 RDW Std Deviation 55.8 H RDW Coeff of Valentina 16.3 H Plt Count 72 L MPV 10.0 Immature Gran % (Auto) 2.200 H Neut % (Auto) 82.7 H Lymph % (Auto) 7.3 L [place] % (Auto) 6.5 Eos % (Auto) 1.0 Baso % (Auto) 0.3 Absolute Neuts (auto) 5.6 Absolute Lymphs (auto) 0.50 L Nucleated RBC % 0.7 Differential Comment SCANNED Sodium 131 L Potassium 3.7 Chloride 93 L Carbon Dioxide 27.0 Anion Gap 11 BUN 46 H Creatinine 4.86 H Estim Creat Clear Calc 13.83 Est GFR (MDRD) Af Amer 12 L Est GFR (MDRD) Non-Af 10 L BUN/Creatinine Ratio 9.5 L Glucose 171 H Calcium 8.1 L Total Bilirubin 1.40 H Direct Bilirubin 1.05 H AST 20 ALT 24 Alkaline Phosphatase 219 H Ammonia Troponin I High Sens 18 Total Protein 6.9 Albumin 1.5 L Globulin 5.4 H Urine Color Mary Urine Clarity Cloudy Urine pH 5.0 Ur Specific [place] 1.020 Urine Protein 30 H Urine Glucose (UA) Normal Urine Ketones 15 H Urine Occult Blood 150 H Urine Nitrite Negative Urine Bilirubin 3 H Urine Urobilinogen 1 H Ur Leukocyte Esterase 500 H Urine RBC 0-5 SEEN Urine WBC 50-100 SEEN Ur Squamous Epith Cells 0-5 SEEN Urine Bacteria 3+ Urine Mucus 0 SEEN 12/07/22 23:10 WBC RBC Hgb Hct MCV MCH MCHC RDW Std Deviation RDW Coeff of Valentina Plt Count MPV Immature Gran % (Auto) Neut % (Auto) Lymph % (Auto) [place] % (Auto) Eos % (Auto) Baso % (Auto) Absolute Neuts (auto) Absolute Lymphs (auto) Nucleated RBC % Differential Comment Sodium Potassium Chloride Carbon Dioxide Anion Gap BUN Creatinine Estim Creat Clear Calc Est GFR (MDRD) Af Amer Est GFR (MDRD) Non-Af BUN/Creatinine Ratio Glucose Calcium Total Bilirubin Direct Bilirubin AST ALT Alkaline Phosphatase Ammonia 36.0 H Troponin I High Sens Total Protein Albumin Globulin Urine Color Urine Clarity Urine pH Ur Specific [place] Urine Protein Urine Glucose (UA) Urine Ketones Urine Occult Blood Urine Nitrite Urine Bilirubin Urine Urobilinogen Ur Leukocyte Esterase Urine RBC Urine WBC Ur Squamous Epith Cells Urine Bacteria Urine Mucus ABG Data ABG results: ABG 12/07/22 22:31 Specimen Type ART Sample Site L Radial pH 7.54 H Bicarbonate Actual 24.5 Total CO2 25 Base Excess 2 O2 Saturation 98 O2 % 21 ABG pCO2 28.7 L ABG pO2 90 Daniel Test Positive O2 Delivery Device Room Air Radiography Chest X-Ray - ED: 1 View, Read by ED Physician and - (Right-sided pleural effusion.) Diagnostic Testing: Clinical Impression(s) from Imaging Studies Brain CT 12/07/22 21:42 IMPRESSION: No acute intracranial abnormality. Electronically Signed: Rahul Lambert MD at 0:00 EST , Chest X-Ray 12/07/22 22:05 IMPRESSION: Moderate right-sided effusion with right lower lobe atelectasis or pneumonia. Right central venous catheter in stable position. Electronically Signed: Sameer Montilla MD at 22:24 EST , EKG Initial EKG: Attestation: I personally reviewed and interpreted this EKG as follows: Interpretation: Sinus Rhythm (Sinus at 93 with no acute ischemia.) Treatment and Re-Evaluation Narrative: I reviewed the patient's prior records including and admission in October. Records from the hospitalist as well as in store representative were reviewed. She was admitted with COVID and had a large right-sided pleural effusion that was tapped. She also had anemia with a hemoglobin of 6 and after GI scope was found to have a Ana Cristina-Cardozo tear. She was discharged back to the [facility] on oxygen and with a Dobbhoff tube. Patient is currently not on oxygen and does not have a feeding tube. CBC reveals normal white count. Hemoglobin is 8.9 which is improved when compared to her prior values. Chemistry studies significant for sodium of 131. BUN is 46 and creatinine is 4.86. Glucose is 171. LFTs significant for total bili 1.4, direct bili 1.05, alk phos of 219. ALT and AST are normal. Troponin is normal. Ammonia level is only slightly elevated at 36, improved when compared to her prior values. Urinalysis reveals infection with 3+ bacteria and 50-100 white cells. Urine is sent for culture and she is given a dose of IV Rocephin. ABG is obtained. pH is 7.539 with a PCO2 of 28.7 and a PO2 of 90. Her sat is 98.1%. CT scan of the head is obtained and reveals no acute findings. Chest x-ray per my interpretation reveals a moderate right-sided pleural effusion. Radiology interpretation is reviewed and agrees. When entered to the room to reevaluate the patient I call her name. She will open her eyes and look at me and then fall back asleep. This mostly with hospitalist regarding observation for encephalopathy and UTI. Discharge Plan Triage Chief Complaint: Alt LOC ED Provider: Adrienne Valdivia Dx/Rx/DC Orders Clinical Impression: Encephalopathy, UTI (urinary tract infection) Prescriptions: No Action Xifaxan 550 MG tablet 550 mg PO BID sucralfate [Carafate] 1 gram Tablet 1 g PO QHS pantoprazole 40 mg Tablet,Delayed Release (Dr/Ec) 40 mg PO DAILY sertraline 50 mg Tablet 75 mg PO QHS ursodiol 300 mg capsule 300 mg PO BID Label Comments: . carbamazepine 100 mg Tablet Extended Release 12 Hr 100 mg PO BID zinc 50 mg Tablet 50 mg PO DAILY Label Comments: PER PHARMACY NOT COVERED BY INSURANCE THROUGH [employer]. PHARMACY UNSURE IF SHE IS GETTING OTC carvedilol 3.125 mg tablet 6.25 mg PO BID torsemide 20 mg Tablet 80 mg PO DAILY Hold Instructions: Hold for 3 days then resume torsemide 20 mg daily lurasidone 40 mg Tablet 40 mg PO LUNCH ergocalciferol (vitamin D2) [Vitamin D2] 1,250 mcg (50,000 unit) capsule 1,250 unit PO MOTH levothyroxine 75 mcg tablet 75 mcg PO DAILY ondansetron 4 mg tablet,disintegrating 8 mg PO Q8H PRN (Reason: Nausea And Vomiting) insulin lispro [Humalog KwikPen Insulin] 100 unit/mL insulin pen 7 unit subcut [facility] Label Comments: +SLIDING SCALE UP TO 40 UNITS DAILY. lactulose 20 gram/30 mL solution 20 g PO BID Rx Instructions: titrate for 3-4 BMs per day bisacodyl 10 mg Suppository 10 mg MS DAILY PRN (Reason: Constipation) dextromethorphan HBr 10 mg/15 mL Syrup 10 mg PO Q6H PRN (Reason: Cough) darbepoetin sree in polysorbat 40 mcg/0.4 mL Syringe 40 mcg SUBCUT QWEEK insulin degludec [Tresiba FlexTouch U-100] 100 unit/mL (3 mL) Insulin Pen 10 unit SUBCUT DAILY acetaminophen 500 mg Tablet 500 mg PO Q6H PRN (Reason: Pain) ascorbic acid (vitamin C) 500 mg tablet 500 mg PO DAILY magnesium hydroxide [Milk of Magnesia] 400 mg/5 mL Suspension 2,400 mg PO DAILY PRN (Reason: Constipation) insulin lispro [Humalog KwikPen Insulin] 100 unit/mL insulin pen See Protocol SUBCUT ACHS Protocol: 6. Sliding Scale Insulin Custom Condition: 151-200 Dose/Route: 2 Condition: 201-250 Dose/Route: 4 Condition: 251-300 Dose/Route: 6 Condition: 301-350 Dose/Route: 8 Condition: 351-400 Dose/Route: 10 Protocol Text: Custom Sliding Scale insulin glargine [Lantus Solostar U-100 Insulin] 100 unit/mL (3 mL) Insulin Pen 10 unit subcut DAILY dexamethasone 4 mg Tablet 6 mg PO DAILY 7 Days Qty: 11 0RF Primary Care Provider: Danial Ring Referrals: Danial Ring MD [Primary Care Provider] - Disposition Disposition: Acute Care [facility]
--- NOTE | 2022-12-07 22:05 | RAD_ITS ---
EXAM: XR CHEST, 1 VIEW CLINICAL INDICATION: sob TECHNIQUE: Frontal view of the chest. This report was created using [employer] report generation technology. COMPARISON: 11/06/2022 FINDINGS: LUNGS AND PLEURAL SPACES: See below. HEART: Unremarkable. Cardiac silhouette not enlarged. MEDIASTINUM: Central airways and mediastinal contour are unremarkable. BONES/JOINTS: There is a moderate right-sided effusion on today''s exam. There is right lower lobe consolidation present. SOFT TISSUES: Unremarkable. TUBES, LINES AND DEVICES: Right central venous catheter in stable position. RAD/Chest 1 View (Portable) IMPRESSION: Moderate right-sided effusion with right lower lobe atelectasis or pneumonia. Right central venous catheter in stable position. Electronically Signed: Sameer Montilla MD at 22:24 EST ,
[2022-12-07 22:20] VITALS: BP 148/59; PULSE 92; RESP 22; O2SAT 93
[2022-12-07 22:23] LABS: Mucous, Urine 0 SEEN /hpf (<or=2+)
--- NOTE | 2022-12-07 22:23 | ED.RN ---
THIS RN TOOK PHONE CALL FROM YUKO NUNEZ. PT UPDATE GIVEN. YUKO NUNEZ PHONE NUMBER [phone] REQUESTS UPDATES OF PT.
[2022-12-07 22:35] LABS: Allen Test Positive; Base Excess 2 mmol/L (-2 to +2); Bicarbonate 24.5 mmol/L (22-26); Blood Gas Specimen Type ART; FI02 21; O2 Delivery Device Room Air; PO2 90 mmHG (75-100); SITE L Radial; SO2 98 % (95-99); Total Carbon Dioxide 25 mmol/L; pCO2 28.7 mmHg (35-45); pH 7.54 (7.35-7.45)
[2022-12-07 22:59] LABS: Color, Urine Amber (Yellow); Glucose, Dipstick Normal (Normal); Ketone-Dipstick 15 mg/dl (Negative); Leukocyte Esterase-Dipstick 500 /ul (Negative); Nitrite-Dipstick Negative (Negative); Occult Blood-Urine 150 /ul (Negative); Protein-Dipstick 30 mg/dl (Negative); Urine Clarity Cloudy (Clear); Urine Urobilinogen 1 mg/dl (Normal)
[2022-12-07 23:03] LABS: Urine Bilirubin Dipstick 3 mg/dL (Negative)
[2022-12-07 23:05] VITALS: BP 136/55; PULSE 91; RESP 25; O2SAT 95
[2022-12-07 23:05] LABS: Bacteria 3+ /hpf (None Seen); Squamous Epithelial Cells - UA 0-5 SEEN /hpf (5-10); White Blood Cells 50-100 SEEN /hpf (0-5)
[2022-12-07 23:06] LABS: Red Blood Cells-Urine 0-5 SEEN /hpf (0-5)
[2022-12-07 23:30] LABS: Absolute Neutrophil Count 5.6 X10^3/uL (2.0-7.7); Basophil# 0.02 X10^3/uL; Basophil% 0.3 % (0-1); Eosinophil# 0.07 X10^3/uL; Hematocrit 26.9 % (37-47); Hemoglobin 8.9 g/dL (12.0-15.0); Lymphocyte % 7.3 % (19-41); Mean Corp Hgb Conc 33.1 g/dL (32-36); Mean Corpuscular Volume 93.7 fL (81-99); Monocyte# 0.44 X10^3/uL; Monocyte% 6.5 % (0-10); NRBC Flagged by Analyzer 0.7 % (0-5); Neutrophil # 5.63 X10^3/uL (2.7-7.7); Neutrophil % 82.7 % (47-70); POSITIVE COUNT YES; POSITIVE DIFFERENTIAL YES; POSITIVE MORPHOLOGY YES; Platelet Count 72 K/mm3 (150-450); RBC Distribution Width CV 16.3 % (11.6-14.6); RBC Distribution Width SD 55.8 fl (35.1-43.9); Red Blood Count 2.87 M/mm3 (4.2-5.4); White Blood Count 6.8 K/mm3 (4.4-11.0)
[2022-12-07 23:36] LABS: Differential Indicated SCAN CRITERIA MET
[2022-12-07 23:44] LABS: AST(SGOT) 20 U/L (15-37); Alanine Aminotransfer ALT/SGPT 24 U/L (13-56); Albumin, Serum 1.5 g/dL (3.2-5.0); Alkaline Phosphatase 219 U/L (45-117); Anion Gap 11 (5-15); BUN 46 mg/dL (7-18); BUN/Creat Ratio 9.5 RATIO (10-20); Bilirubin, Direct 1.05 mg/dL (0.00-0.30); Calcium,Total 8.1 mg/dL (8.5-10.1); Chloride 93 mmol/L (98-107); Creatinine, Serum 4.86 mg/dL (0.55-1.02); EST Glomerular Filtration Rate 10 mL/min (>60); Est Glom Filt Rate - Afr Amer 12 mL/min (>60); Estimated Creatinine Clearance 13.83 ml/min; Globulin 5.4 g/dL (2.2-4.2); Glucose 171 mg/dL (74-106); Potassium 3.7 mmol/L (3.5-5.1); Protein, Total 6.9 g/dL (6.4-8.2); Sodium Level 131 mmol/L (136-145); Troponin-I HS 18 pg/mL (3.0-54.0)
[2022-12-07 23:53] LABS: Differential Comment SCANNED
[2022-12-07] MEDS: Ceftriaxone 1 GM/50 ML BAG IV (23:57)
[2022-12-08] VITALS (19 sets, daily range): BP systolic 114–150; BP diastolic 54–101; PULSE 79–126; RESP 14–27; TEMP 36.4–37.2; O2SAT 92–97; BMI 23.3
--- NOTE | 2022-12-08 00:32 | HP.PCM.HOS_ITS ---
HPI - General General Date of Admission: 12/08/22 Date of Service: 12/08/22 Chief Complaint: Somnolent HPI Narrative ANA GARCÍA, is a 52 F with a significant history of schizoaffective disorder; end-stage renal disease; diabetes mellitus and hypertension who presents emergency department who lives at a [place] [facility] presents to the emergency department with drowsiness. History was taken for emergency department doctor and it is limited as patient could not provide history. Reportedly patient is also weak. [facility] Medical History Acute on chronic anemia Acute on chronic renal insufficiency Anemia Autoimmune hepatitis Bacteremia due to methicillin resistant Staphylococcus epidermidis Bipolar disorder CHI (closed head injury) Chronic pain Chronic renal insufficiency, stage III (moderate) Cirrhosis of liver Debility Depression Diabetes mellitus, type 2 Encephalopathy acute Essential hypertension Reilly's thyroiditis Hepatic encephalopathy Hepatitis Hypothyroidism Kidney disease MRSA bacteremia Myocardial infarct Non-smoker On home oxygen therapy Pancreatitis Pancytopenia Peripheral neuropathy Right lower lobe pneumonia Schizoaffective disorder Severe sepsis Splenomegaly Stage 3b chronic kidney disease (CKD) Weakness Home Medications rifaximin 550 mg tablet (Xifaxan) 550 mg PO BID IBS 11/04/17 [History Last Taken 06/14/22] pantoprazole 40 mg tablet,delayed release 40 mg PO DAILY GERD 03/20/21 [History Last Taken 06/14/22] sertraline 50 mg tablet 75 mg PO QHS DEPRESSION 03/20/21 [History Last Taken 06/14/22] sucralfate 1 gram tablet (Carafate) 1 g PO QHS STOMACH 03/20/21 [History Last Taken 06/14/22] ursodiol 300 mg capsule 300 mg PO BID LIVER 04/25/21 [History Last Taken 06/14/22] carbamazepine 100 mg tablet,extended release,12 hr 100 mg PO BID bipolar 04/29/21 [History Last Taken 06/14/22] zinc 50 mg tablet 50 mg PO DAILY SUPPLEMENT 09/18/21 [History Last Taken 06/14/22] carvedilol 3.125 mg tablet 6.25 mg PO BID HEART 03/23/22 [History Last Taken 06/14/22] lurasidone 40 mg tablet 40 mg PO LUNCH MOOD 04/16/22 [History Last Taken 06/14/22] torsemide 20 mg tablet 80 mg PO DAILY diuretic 04/16/22 [History Last Taken 06/14/22] ergocalciferol (vitamin D2) 1,250 mcg (50,000 unit) capsule (Vitamin D2) 1,250 unit PO MOTH SUPPLMENT 05/14/22 [History Last Taken 06/14/22] insulin lispro 100 unit/mL subcutaneous pen (Humalog KwikPen (U-100) Insulin) 7 unit subcut ACHS diabetes 05/14/22 [History Last Taken 06/14/22] levothyroxine 75 mcg tablet 75 mcg PO DAILY THYROID 05/14/22 [History Last Taken 06/14/22] ondansetron 4 mg disintegrating tablet 8 mg PO Q8H PRN Nausea And Vomiting 05/14/22 [History Last Taken 06/13/22] lactulose 20 gram/30 mL oral solution 20 g PO BID liver failure 06/11/22 [History Last Taken 06/14/22] acetaminophen 500 mg tablet 500 mg PO Q6H PRN Pain 11/03/22 [History Last Taken Unknown] ascorbic acid (vitamin C) 500 mg tablet 500 mg PO DAILY supplement 11/03/22 [History Last Taken Unknown] bisacodyl 10 mg rectal suppository 10 mg MN DAILY PRN Constipation 11/03/22 [History Last Taken Unknown] darbepoetin sree in polysorbat 40 mcg/0.4 mL in polysorbate injection syringe 40 mcg subcut QWEEK bone marrow 11/03/22 [History Last Taken Unknown] dextromethorphan HBr 10 mg/15 mL oral syrup 10 mg PO Q6H PRN Cough 11/03/22 [Hi story Last Taken Unknown] insulin degludec 100 unit/mL (3 mL) subcutaneous pen (Tresiba FlexTouch U-100 insulin) 10 unit subcut DAILY diabetes 11/03/22 [History Last Taken Unknown] insulin glargine 100 unit/mL (3 mL) subcutaneous pen (Lantus Solostar U-100 Insulin) 10 unit subcut DAILY DM2 11/03/22 [History Last Taken Unknown] magnesium hydroxide 400 mg/5 mL oral suspension (Milk of Magnesia) 2,400 mg PO DAILY PRN Constipation 11/03/22 [History Last Taken Unknown] dexamethasone 4 mg tablet 6 mg PO DAILY 7 days #11 tabs 12/21/22 [Rx Last Taken Unknown] Allergy/AdvReac Type Severity Reaction Status Date / Time adhesive Allergy Rash Verified 11/15/22 18:47 escitalopram oxalate Allergy blindness Verified 11/15/22 18:47 [From Lexapro] Fish Containing Products Allergy Other Verified 11/15/22 18:47 gabapentin [From Neurontin] Allergy Alan Verified 11/15/22 18:47 Jez's Syndrome lamotrigine [From Lamictal] Allergy Blindness Verified 11/15/22 18:47 metformin Allergy PT UNSURE Verified 11/15/22 18:47 OF REACTION topiramate [From Topamax] Allergy Other Verified 11/15/22 18:47 sour cream AdvReac Severe Anaphylaxis Uncoded 11/02/22 12:39 Preservatives AdvReac Intermediate passed Uncoded 11/02/22 12:39 out, lungs deflated Family History Father CVA (cerebral vascular accident) Myocardial infarction Heart disease CAD (coronary artery disease) Grandmother CHF (congestive heart failure) Sister Hypertension Mother Heart disease Surgical History H/O: hysterectomy History of abdominal paracentesis (10/2019) History of appendectomy History of cholecystectomy S/P TIPS (transjugular intrahepatic portosystemic shunt) Social History household members: significant other housing: house Smoking Status: Never smoker alcohol intake: never details: Unknown substance use type: does not use ROS Review of Systems ROS Unobtainable: due to mental status Vital Signs Vital Signs Vital Signs: 12/07/22 21:16 12/07/22 22:20 12/07/22 23:05 Temperature 97.0 F L Temperature Source Temporal Pulse Rate 94 92 91 Respiratory Rate 22 H 22 H 25 H Blood Pressure 139/84 H 148/59 H 136/55 H Blood Pressure Mean 102 88 82 Pulse Ox 91 93 95 Oxygen Delivery Method Room Air Room Air Room Air 12/08/22 00:06 Temperature Temperature Source Pulse Rate 92 Respiratory Rate 18 Blood Pressure 134/55 H Blood Pressure Mean 81 Pulse Ox 94 Oxygen Delivery Method Room Air Weight Weight: 76.4 kg Body Mass Index (BMI) 24.8 Physical Exam Narrative Physical exam: General: Well-nourished, well-developed. Head: Normocephalic, atraumatic, no tenderness Eyes: PERRLA ENT: Patient did not follow commands to open mouth to check mucous membranes. Neck: Nontender, No thyromegaly. CVS: Regular rate and rhythm. S1-S2 present. No murmur, gallop or rub. Respiratory : clear to auscultation bilaterally, chest wall nontender, no wheezing Abdomen: Soft, nontender, nondistended, normal bowel sounds, no masses : Deferred Back: Nontender, no CVA tenderness, no midline spinal tenderness Extremities: Nontender full range of motion, no trauma Skin: Pal no trauma, abrasions Neuro: Alert, oriented, cranial nerves II through XII grossly intact. Psychiatry: Normal mood. Normal affect. Not depressed. Not anxious. Results Lab / Micro Data Result Diagrams: 12/07/22 23:10 12/07/22 23:10 Labs: Laboratory Results - last 24 hr 12/07/22 22:15: Urine Color Mary, Urine Clarity Cloudy, Urine pH 5.0, Ur Specific [place] 1.020, Urine Protein 30 H, Urine Glucose (UA) Normal, Urine Ketones 15 H, Urine Occult Blood 150 H, Urine Nitrite Negative, Urine Bilirubin 3 H, Urine Urobilinogen 1 H, Ur Leukocyte Esterase 500 H, Urine RBC 0-5 SEEN, Urine WBC 50-100 SEEN, Ur Squamous Epith Cells 0-5 SEEN, Urine Bacteria 3+, Urine Mucus 0 SEEN 12/07/22 23:10: WBC 6.8, RBC 2.87 L, Hgb 8.9 L, Hct 26.9 L, MCV 93.7, MCH 31.0, MCHC 33.1, RDW Std Deviation 55.8 H, RDW Coeff of Valentina 16.3 H, Plt Count 72 L, MPV 10.0, Immature Gran % (Auto) 2.200 H, Neut % (Auto) 82.7 H, Lymph % (Auto) 7.3 L, Tompkins % (Auto) 6.5, Eos % (Auto) 1.0, Baso % (Auto) 0.3, Absolute Neuts (auto) 5.6, Absolute Lymphs (auto) 0.50 L, Nucleated RBC % 0.7, Differential Comment SCANNED 12/07/22 23:10: Sodium 131 L, Potassium 3.7, Chloride 93 L, Carbon Dioxide 27.0, Anion Gap 11, BUN 46 H, Creatinine 4.86 H, Estim Creat Clear Calc 13.83, Est GFR (MDRD) Af Amer 12 L, Est GFR (MDRD) Non-Af 10 L, BUN/Creatinine Ratio 9.5 L, Glucose 171 H, Calcium 8.1 L, Total Bilirubin 1.40 H, Direct Bilirubin 1.05 H, AST 20, ALT 24, Alkaline Phosphatase 219 H, Troponin I High Sens 18, Total Protein 6.9, Albumin 1.5 L, Globulin 5.4 H 12/07/22 23:10: Ammonia 36.0 H ABG Data ABG results: ABG 12/07/22 22:31 Specimen Type ART Sample Site L Radial pH 7.54 H Bicarbonate Actual 24.5 Total CO2 25 Base Excess 2 O2 Saturation 98 O2 % 21 ABG pCO2 28.7 L ABG pO2 90 Daniel Test Positive O2 Delivery Device Room Air Radiology Impression Brain CT 12/07/22 21:42 IMPRESSION: No acute intracranial abnormality. Electronically Signed: Rahul Lambert MD at 0:00 EST , Chest X-Ray 12/07/22 22:05 IMPRESSION: Moderate right-sided effusion with right lower lobe atelectasis or pneumonia. Right central venous catheter in stable position. Electronically Signed: Sameer Montilla MD at 22:24 EST , Assessment & Plan Assessment/Plan (1) Encephalopathy: (2) UTI (urinary tract infection): PLAN: Plan Acute encephalopathy secondary to UTI Urinalysis reviewed occult blood; negative nitrite; leukocyte esterase of 500; urine WBC of 50-100; urine bacteria 3+. CBC showed white count of 6.8. Bandemia of 2.2%. Trend CBC. In the setting of history of cirrhosis we will check ultrasound abdomen and if ascites fluid present consider paracentesis and cultures. However doubt SBP as abdomen is nondistended. Started on ceftriaxone the emergency department and continued. We will follow urine culture and blood cultures Hold p.o. medications. Moderate right side pleural effusion Chest x-ray was interpreted by radiologist as moderate right-sided pleural effusion. Chest x-ray was visualized and independently interpreted and I agree with radiology interpretation. Patient is not hypoxic. No thoracentesis ordered at this time. JULIANNE on end-stage renal disease Hold home Lasix. Consult nephrology Hypertension Blood pressure is not within goal. Home carvedilol held secondary to encephalopathy. Schedule metoprolol ordered Diabetes mellitus Blood glucose been elevated. Continue correction scale insulin ordered. Chronic thrombocytopenia Noted to have low platelets of 72,000. Like secondary to liver disease. Trend CBC. DVT prophylaxis: SCDs ordered. Not a candidate of chemical thromboprophylaxis secondary to thrombocytopenia. Charges/Coding Visit Charges Inpatient E&M: 91513 Init Hosp L3
--- NOTE | 2022-12-08 05:55 | US_ITS ---
HISTORY: Ascites. TECHNIQUE: Transabdominal ultrasound was performed with real-time and static thakkar scale imaging. 6 images. COMPARISON: CT 05/14/2022. FINDINGS: Mild ascites in the right upper and left upper quadrants. Right greater than left pleural effusions also noted cirrhotic appearance of the liver. US/Abdomen Limited IMPRESSION: Mild ascites. Right greater than left pleural effusions. Electronically Signed: Deena Kingston MD at 8:05 EST ,
[2022-12-08] MEDS: Insulin Lispro 100 UNIT/ML INSULN.PEN SC (06:26)
[2022-12-08] MEDS: Metoprolol Tartrate 5 MG/5 ML Vial IV ×3 (06:29→18:09)
[2022-12-08] MEDS: 0.9% Saline Lock 10 ML Syringe IV ×5 (06:31→22:40)
[2022-12-08 06:50] LABS: Bedside Glucose 173 mg/dL (74-106)
[2022-12-08 07:30] LABS: Absolute Lymphocyte Count 0.28 X10^3/uL (0.83-4.51); Absolute Neutrophil Count 7.2 X10^3/uL (2.0-7.7); Basophil# 0.02 X10^3/uL; Basophil% 0.3 % (0-1); Eosinophil# 0.03 X10^3/uL; Eosinophils% 0.4 % (0-5); Hematocrit 26.9 % (37-47); Hemoglobin 8.9 g/dL (12.0-15.0); Lymphocyte # 0.28 X10^3/ul (0.83-4.51); Lymphocyte % 3.5 % (19-41); Mean Corp Hgb Conc 33.1 g/dL (32-36); Mean Corpuscular Hgb 30.6 pg (27.0-32.0); Mean Corpuscular Volume 92.4 fL (81-99); Mean Platelet Vol. 11.7 fl (6.2-12.0); NRBC Flagged by Analyzer 0.3 % (0-5); Neutrophil # 7.19 X10^3/uL (2.7-7.7); POSITIVE COUNT YES; POSITIVE DIFFERENTIAL YES; POSITIVE MORPHOLOGY YES; Platelet Count 68 K/mm3 (150-450); RBC Distribution Width CV 16.3 % (11.6-14.6); RBC Distribution Width SD 55.9 fl (35.1-43.9); Red Blood Count 2.91 M/mm3 (4.2-5.4)
[2022-12-08 07:35] LABS: Differential Indicated SCAN CRITERIA MET
[2022-12-08 08:15] LABS: ALB/GLOB Ratio 0.3 RATIO (0.9-2.4); AST(SGOT) 23 U/L (15-37); Alanine Aminotransfer ALT/SGPT 22 U/L (13-56); Albumin, Serum 1.2 g/dL (3.2-5.0); Alkaline Phosphatase 195 U/L (45-117); Anion Gap 12 (5-15); BUN 54 mg/dL (7-18); BUN/Creat Ratio 10.8 RATIO (10-20); Calcium,Total 7.7 mg/dL (8.5-10.1); Chloride 94 mmol/L (98-107); Creatinine, Serum 5.02 mg/dL (0.55-1.02); EST Glomerular Filtration Rate 10 mL/min (>60); Est Glom Filt Rate - Afr Amer 12 mL/min (>60); Estimated Creatinine Clearance 13.39 ml/min; Globulin 4.7 g/dL (2.2-4.2); Glucose 176 mg/dL (74-106); Potassium 3.7 mmol/L (3.5-5.1); Protein, Total 5.9 g/dL (6.4-8.2); Sodium Level 130 mmol/L (136-145); Thyroid Stim Hormone (TSH) 3.64 uIU/mL (0.358-3.74)
--- NOTE | 2022-12-08 10:50 | NURSING ---
Addendum entered by Raquel Munson 12/08/22 10:52: ABG's cancelled as pt had them yesterday. [facility] is aware of EEG. Original Note: BS 159 per Arun RN. Aware of ABG's that were ordered stat. This RN called [facility] and informed them of stat ABG's. Dr. Alfonso is aware of consult via [employer].
[2022-12-08 11:01] LABS: Bedside Glucose 159 mg/dL (74-106)
--- NOTE | 2022-12-08 11:57 | CON.PCM.CC_ITS ---
Assessment & Plan Assessment/Plan (1) Encephalopathy: (2) Autoimmune hepatitis: (3) Schizoaffective disorder: QUALIFIERS: Schizoaffective disorder type: depressive Qualified Code(s): F25.1 - Schizoaffective disorder, depressive type (4) UTI (urinary tract infection): PLAN: Plan RECOMMENDATIONS: 1. Add lactulose and rifaximin 2. Agree with empiric antibiotics pending cultures 3. Await response after hemodialysis 4. Await results of EEG 5. No need to transfer to the intensive care unit at this time IMPRESSIONS: 1. Metabolic encephalopathy Unclear etiology at this time. Patient does have an elevated ammonia level, so initiation of lactulose and rifaximin would be reasonable. Patient does have an EEG currently pending. Blood sugars have been adequate. ABG overnight was not suggestive of CO2 retention on room air. Patient reportedly did not have a full hemodialysis session yesterday, so this could be contributin g. Patient may also be experiencing an element of delirium secondary to UTI and empiric antibiotics have been initiated. Cultures are currently pending. Could obtain an ABG if patient is not responding better following hemodialysis. 2. Moderate right pleural effusion Review of the chest x-ray does show a right pleural effusion. However, patient is not hypoxic and does not appear to be symptomatic at this time. Previous thoracentesis was consistent with a transudate etiology related to renal and hepatic function. Patient could have a thoracentesis if she becomes symptomatic, but otherwise low clinical suspicion for exudate etiology at this time. 3. ESRD secondary to hypertension and diabetes mellitus Patient reportedly being worked up for a possible transplant. Patient did have dialysis, but had unclear clearance. Nephrology has been consulted. Defer dialysis timing to them. 4. Hypertension/cirrhosis/chronic thrombocytopenia/schizoaffective disorder Complicates care, management, recovery and prognosis. Clinical suspicion for thrombocytopenia secondary to hepatic function. Blood pressure appears to be appropriate at this time. Patient should be continued on baseline mood medications once able to take p.o. Patient reportedly does use insulin at baseline. Sliding scale likely sufficient at this time given patient's variable p.o. intake. HPI Consult Data Date of Consult: 12/08/22 HPI Narrative Reason for Consultation: Change in mental status HPI Narrative: ANA GARCÍA is a 52 F, with past medical history listed below and known to me from previous hospitalizations, who presents to [facility] on 12/07/2022 secondary to reported weakness and drowsiness. Patient reportedly is conversational at baseline, but may require assistance with some activities patient reportedly had left the facility for kidney transplant evaluation and then went to dialysis. Following dialysis patient was noted to be very drowsy and weak. This persisted throughout the morning, so she was sent to the ER for evaluation. In the ER, patient was afebrile, but tachypneic as high as 25 breaths/min. Merry ent was saturating well on room air and was normotensive. Laboratory work-up showed no leukocytosis, but hemoglobin of 8.9 and platelets of 72. This appears to be close to her baseline. Chemistries were significant for a BUN of 46 and creatinine of 4.86. Liver enzymes were normal, but bilirubin and alk phosphatase were slightly elevated. Urinalysis did show elevated leukocyte esterase and white blood cells, but no nitrites. Ammonia was elevated at 36 and an ABG showed acute respiratory alkalosis with normal AA gradient. CT of the head showed no acute intracranial abnormality and chest x-ray once again showed a moderate right-sided effusion with associated atelectasis. Patient was adm itted to the floor for further evaluation. On hospitalist evaluation this morning, there was concern for decreased responsiveness and possibility of needing moved to the intensive care unit. I was asked to see the patient on the floor. On my arrival, patient would open her eyes briefly at the mention of her name, but was not following commands. Patient was not able to answer any my questions. Patient was in the process of being prepared for an EEG. The majority of the story was obtained from the electronic medical record. [facility] Medical History (Updated 12/08/22 @ 12:[address] Mando Alfonso MD) Acute on chronic anemia Acute on chronic renal insufficiency Anemia Autoimmune hepatitis Bacteremia due to methicillin resistant Staphylococcus epidermidis Bipolar disorder CHI (closed head injury) Chronic pain Chronic renal insufficiency, stage III (moderate) Cirrhosis of liver Debility Depression Diabetes mellitus, type 2 Encephalopathy acute Essential hypertension Reilly's thyroiditis Hepatic encephalopathy Hepatitis Hypothyroidism Kidney disease MRSA bacteremia Myocardial infarct Non-smoker On home oxygen therapy Pancreatitis Pancytopenia Peripheral neuropathy Right lower lobe pneumonia Schizoaffective disorder Severe sepsis Splenomegaly Stage 3b chronic kidney disease (CKD) Weakness Home Medications rifaximin 550 mg tablet (Xifaxan) 550 mg PO BID IBS 12/18/17 [History Last Taken 06/14/22] pantoprazole 40 mg tablet,delayed release 40 mg PO DAILY GERD 03/20/21 [History Last Taken 06/14/22] sertraline 50 mg tablet 75 mg PO QHS DEPRESSION 03/20/21 [History Last Taken 06/14/22] sucralfate 1 gram tablet (Carafate) 1 g PO QHS STOMACH 03/20/21 [History Last Taken 06/14/22] ursodiol 300 mg capsule 300 mg PO BID LIVER 04/25/21 [History Last Taken 06/14/22] carbamazepine 100 mg tablet,extended release,12 hr 100 mg PO BID bipolar 04/29/21 [History Last Taken 06/14/22] zinc 50 mg tablet 50 mg PO DAILY SUPPLEMENT 09/18/21 [History Last Taken 06/14/22] carvedilol 3.125 mg tablet 6.25 mg PO BID HEART 03/23/22 [History Last Taken 06/14/22] lurasidone 40 mg tablet 40 mg PO LUNCH MOOD 04/16/22 [History Last Taken 06/14/22] torsemide 20 mg tablet 80 mg PO DAILY diuretic 04/16/22 [History Last Taken 06/14/22] ergocalciferol (vitamin D2) 1,250 mcg (50,000 unit) capsule (Vitamin D2) 1,250 unit PO MOTH SUPPLMENT 05/14/22 [History Last Taken 06/14/22] insulin lispro 100 unit/mL subcutaneous pen (Humalog KwikPen (U-100) Insulin) 7 unit subcut ACHS diabetes 05/14/22 [History Last Taken 06/14/22] levothyroxine 75 mcg tablet 75 mcg PO DAILY THYROID 05/14/22 [History Last Taken 06/14/22] ondansetron 4 mg disintegrating tablet 8 mg PO Q8H PRN Nausea And Vomiting 05/14/22 [History Last Taken 06/13/22] lactulose 20 gram/30 mL oral solution 20 g PO BID liver failure 06/11/22 [History Last Taken 06/14/22] acetaminophen 500 mg tablet 500 mg PO Q6H PRN Pain 11/03/22 [History Last Taken Unknown] ascorbic acid (vitamin C) 500 mg tablet 500 mg PO DAILY supplement 11/03/22 [H istory Last Taken Unknown] bisacodyl 10 mg rectal suppository 10 mg MD DAILY PRN Constipation 11/03/22 [History Last Taken Unknown] darbepoetin sree in polysorbat 40 mcg/0.4 mL in polysorbate injection syringe 40 mcg subcut QWEEK bone marrow 11/03/22 [History Last Taken Unknown] dextromethorphan HBr 10 mg/15 mL oral syrup 10 mg PO Q6H PRN Cough 11/03/22 [History Last Taken Unknown] insulin degludec 100 unit/mL (3 mL) subcutaneous pen (Tresiba FlexTouch U-100 insulin) 10 unit subcut DAILY diabetes 11/03/22 [History Last Taken Unknown] insulin glargine 100 unit/mL (3 mL) subcutaneous pen (Lantus Solostar U-100 Insulin) 10 unit subcut DAILY DM2 11/03/22 [History Last Taken Unknown] magnesium hydroxide 400 mg/5 mL oral suspension (Milk of Magnesia) 2,400 mg PO DAILY PRN Constipation 11/03/22 [History Last Taken Unknown] dexamethasone 4 mg tablet 6 mg PO DAILY 7 days #11 tabs 11/07/22 [Rx Last Taken Unknown] Allergy/AdvReac Type Severity Reaction Status Date / Time adhesive Allergy Rash Verified 11/15/22 18:47 escitalopram oxalate Allergy blindness Verified 11/15/22 18:47 [From Lexapro] Fish Containing Products Allergy Other Verified 11/15/22 18:47 gabapentin [From Neurontin] Allergy Alan Verified 11/15/22 18:47 Jez's Syndrome lamotrigine [From Lamictal] Allergy Blindness Verified 11/15/22 18:47 metformin Allergy PT UNSURE Verified 11/15/22 18:47 OF REACTION topiramate [From Topamax] Allergy Other Verified 11/15/22 18:47 sour cream AdvReac Severe Anaphylaxis Uncoded 11/02/22 12:39 Preservatives AdvReac Intermediate passed Uncoded 11/02/22 12:39 out, lungs deflated Family History Father CVA (cerebral vascular accident) Myocardial infarction Heart disease CAD (coronary artery disease) Grandmother CHF (congestive heart failure) Sister Hypertension Mother Heart disease Surgical History H/O: hysterectomy History of abdominal paracentesis (10/2019) History of appendectomy History of cholecystectomy S/P TIPS (transjugular intrahepatic portosystemic shunt) Social History household members: significant other housing: house Smoking Status: Never smoker alcohol intake: never details: Unknown substance use type: does not use ROS Review of Systems ROS Unobtainable: due to mental status Physical Exam Const no apparent distress Constitutional Narrative: Patient appears older than stated age. RASS -2. No accessory muscle use noted. General Appearance: lethargic HEENT normocephalic, head/scalp atraumatic, hearing grossly normal bilaterally and moist oral mucous membranes Eyes PERRL, EOMs intact bilaterally and conjunctivae normal Eyes Narrative: No scleral icterus or injection noted Neck no lymphadenopathy and supple Chest inspection of chest normal Chest Narrative: Right chest tunneled hemodialysis line is clean, dry and intact Resp normal respiratory effort, no retractions and no use of accessory muscles Resp Narrative: No dullness to percussion. Auscultation: diminished lung sounds right; Negative for rhonchi or wheezes Cardio regular rate, regular rhythm, S1 normal heart sound, S2 normal heart sound, no murmurs, no rub and no gallops GI normal to inspection, nondistended, normoactive bowel sounds, soft to palpation, non-tender and non-distended Extremity normal to inspection and full ROM General Extremity: edema Skin Skin Narrative: Ecchymosis noted in the right arm without associated mottling Neuro Neuro Narrative: Some spontaneous movement of upper extremities. Withdraws to painful stimuli Psych Mood & Affect: flat affect Medical Records Data Attestation: I reviewed the patient's medical records Medical records narrative: Patient did have a thoracentesis completed in October 2022 showing a transudate pattern on the right side. Lab / Micro Data Attestation: I reviewed the patient's lab results. Result Diagrams: 12/08/22 06:55 12/08/22 06:55 Labs: Laboratory Results - last 24 hr 12/07/22 22:15: Urine Color Mary, Urine Clarity Cloudy, Urine pH 5.0, Ur Specific [place] 1.020, Urine Protein 30 H, Urine Glucose (UA) Normal, Urine Ketones 15 H, Urine Occult Blood 150 H, Urine Nitrite Negative, Urine Bilirubin 3 H, Urine Urobilinogen 1 H, Ur Leukocyte Esterase 500 H, Urine RBC 0-5 SEEN, Urine WBC 50-100 SEEN, Ur Squamous Epith Cells 0-5 SEEN, Urine Bacteria 3+, Urine Mucus 0 SEEN 12/07/22 23:10: WBC 6.8, RBC 2.87 L, Hgb 8.9 L, Hct 26.9 L, MCV 93.7, MCH 31.0, MCHC 33.1, RDW Std Deviation 55.8 H, RDW Coeff of Valentina 16.3 H, Plt Count 72 L, MPV 10.0, Immature Gran % (Auto) 2.200 H, Neut % (Auto) 82.7 H, Lymph % (Auto) 7.3 L, Cowley % (Auto) 6.5, Eos % (Auto) 1.0, Baso % (Auto) 0.3, Absolute Neuts (auto) 5.6, Absolute Lymphs (auto) 0.50 L, Nucleated RBC % 0.7, Differential Comment SCANNED 12/07/22 23:10: Sodium 131 L, Potassium 3.7, Chloride 93 L, Carbon Dioxide 27.0, Anion Gap 11, BUN 46 H, Creatinine 4.86 H, Estim Creat Clear Calc 13.83, Est GFR (MDRD) Af Amer 12 L, Est GFR (MDRD) Non-Af 10 L, BUN/Creatinine Ratio 9.5 L, Glucose 171 H, Calcium 8.1 L, Total Bilirubin 1.40 H, Direct Bilirubin 1.05 H, AST 20, ALT 24, Alkaline Phosphatase 219 H, Troponin I High Sens 18, Total Protein 6.9, Albumin 1.5 L, Globulin 5.4 H 12/07/22 23:10: Ammonia 36.0 H 12/08/22 06:22: POC Glucose 173 H 12/08/22 06:55: WBC 8.0, RBC 2.91 L, Hgb 8.9 L, Hct 26.9 L, MCV 92.4, MCH 30.6, MCHC 33.1, RDW Std Deviation 55.9 H, RDW Coeff of Valentina 16.3 H, Plt Count 68 L, MPV 11.7, Immature Gran % (Auto) 0.800, Neut % (Auto) 90.0 H, Lymph % (Auto) 3.5 L, Cowley % (Auto) 5.0, Eos % (Auto) 0.4, Baso % (Auto) 0.3, Absolute Neuts (auto) 7.2, Absolute Lymphs (auto) 0.28 L, Nucleated RBC % 0.3, Differential Comment 12/08/22 06:55: Sodium 130 L, Potassium 3.7, Chloride 94 L, Carbon Dioxide 24.0, Anion Gap 12, BUN 54 H, Creatinine 5.02 H, Estim Creat Clear Calc 13.39, Est GFR (MDRD) Af Amer 12 L, Est GFR (MDRD) Non-Af 10 L, BUN/Creatinine Ratio 10.8, Glucose 176 H, Calcium 7.7 L, Total Bilirubin 1.80 H, AST 23, ALT 22, Alkaline Phosphatase 195 H, Total Protein 5.9 L, Albumin 1.2 L, Globulin 4.7 H, Albumin/Globulin Ratio 0.3 L, TSH 3.64 12/08/22 10:38: POC Glucose 159 H ABG Data ABG results: ABG 12/07/22 22:31 Specimen Type ART Sample Site L Radial pH 7.54 H Bicarbonate Actual 24.5 Total CO2 25 Base Excess 2 O2 Saturation 98 O2 % 21 ABG pCO2 28.7 L ABG pO2 90 Daniel Test Positive O2 Delivery Device Room Air Attestation: I personally reviewed and interpreted this ABG as follows: (See HPI) Radiology Impression Brain CT 12/07/22 21:42 IMPRESSION: No acute intracranial abnormality. Electronically Signed: Rahul Lambert MD at 0:00 EST , Chest X-Ray 12/07/22 22:05 IMPRESSION: Moderate right-sided effusion with right lower lobe atelectasis or pneumonia. Right central venous catheter in stable position. Electronically Signed: Sameer Montilla MD at 22:24 EST , Abdomen Ultrasound 12/08/22 05:55 IMPRESSION: Mild ascites. Right greater than left pleural effusions. Electronically Signed: Deena Kingston MD at 8:05 EST , Charges/Coding Visit Charges Inpatient E&M: 59919 Init Hosp L3
--- NOTE | 2022-12-08 12:28 | NURSING ---
Dr Alfonso notified pt is unreposive and is npo, and can't take the chronulac and xifaxin, said he ordered them, if she wakes up after dialysis.
--- NOTE | 2022-12-08 12:29 | PCM.CONS.R ---
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 The patient is admitted to the hospital on 12/08/2022 with hepatic encephalopathy. Nephrology is following for dialysis management. Acute kidney injury on chronic kidney disease stage IIIb. The patient is known to our service with dialysis dependent JULIANNE on CKD stage IIIb. She dialyzes at [facility] on MWF schedule. She was started on hemodialysis on 10/13/2022 at [facility]. There has been no evidence of renal recovery. Her serum creatinine is 5.02 mg/dL today in the setting of low muscle mass. She was last dialyzed on 12/05/2022. I will arrange for dialysis today and get her back on MWF schedule on 12/10/2022. Hyponatremia. The patient has mild hyponatremia with serum sodium of 130 mmol/L. This degree of hyponatremia is unlikely to cause altered mental status. Serum sodium should improve with hemodialysis. Encephalopathy. Likely due to hepatic encephalopathy with elevated ammonia level. She is being treated with lactulose and rifaximin. Nephrology plan is discussed with Dr. Castro. 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 The patient is known to our service with dialysis dependent JULIANNE on CKD stage IIIb. She dialyzes at [facility] on MWF schedule. The patient was started on hemodialysis at [facility] on 10/13/2022. Baseline serum creatinine prior to September 2022 was 1.8 mg/dL. The patient presented to the hospital on 12/08/2022 with obtundation associated with high ammonia level. Because of encephalopathy, history cannot be directly obtained from the patient. The chart was extensively reviewed. In addition to encephalopathy, the patient is also found to have moderate right pleural effusion on evaluation thus far. She did not complete dialysis treatment yesterday prior to admission. Last hemodialysis was on 12/05/2022. [facility] Medical History (Updated 12/08/22 @ 12:[address] Janeth Glover MD) Acute on chronic anemia Acute on chronic renal insufficiency Anemia Autoimmune hepatitis Bacteremia due to methicillin resistant Staphylococcus epidermidis Bipolar disorder CHI (closed head injury) Chronic pain Chronic renal insufficiency, stage III (moderate) Cirrhosis of liver Debility Depression Diabetes mellitus, type 2 Encephalopathy acute Essential hypertension Reilly's thyroiditis Hepatic encephalopathy Hepatitis Hypothyroidism Kidney disease MRSA bacteremia Myocardial infarct Non-smoker On home oxygen therapy Pancreatitis Pancytopenia Peripheral neuropathy Right lower lobe pneumonia Schizoaffective disorder Severe sepsis Splenomegaly Stage 3b chronic kidney disease (CKD) Weakness Home Medications rifaximin 550 mg tablet (Xifaxan) 550 mg PO BID IBS 11/04/17 [History Last Taken 06/14/22] pantoprazole 40 mg tablet,delayed release 40 mg PO DAILY GERD 03/20/21 [History Last Taken 06/14/22] sertraline 50 mg tablet 75 mg PO QHS DEPRESSION 03/20/21 [History Last Taken 06/14/22] sucralfate 1 gram tablet (Carafate) 1 g PO QHS STOMACH 03/20/21 [History Last Taken 06/14/22] ursodiol 300 mg capsule 300 mg PO BID LIVER 04/25/21 [History Last Taken 06/14/22] carbamazepine 100 mg tablet,extended release,12 hr 100 mg PO BID bipolar 04/29/21 [History Last Taken 06/14/22] zinc 50 mg tablet 50 mg PO DAILY SUPPLEMENT 09/18/21 [History Last Taken 06/14/22] carvedilol 3.125 mg tablet 6.25 mg PO BID HEART 03/23/22 [History Last Taken 06/14/22] lurasidone 40 mg tablet 40 mg PO LUNCH MOOD 04/16/22 [History Last Taken 06/14/22] torsemide 20 mg tablet 80 mg PO DAILY diuretic 04/16/22 [History Last Taken 06/14/22] ergocalciferol (vitamin D2) 1,250 mcg (50,000 unit) capsule (Vitamin D2) 1,250 unit PO MOTH SUPPLMENT 05/14/22 [History Last Taken 06/14/22] insulin lispro 100 unit/mL subcutaneous pen (Humalog KwikPen (U-100) Insulin) 7 unit subcut ACHS diabetes 05/14/22 [History Last Taken 06/14/22] levothyroxine 75 mcg tablet 75 mcg PO DAILY THYROID 05/14/22 [History Last Taken 06/14/22] ondansetron 4 mg disintegrating tablet 8 mg PO Q8H PRN Nausea And Vomiting 05/14/22 [History Last Taken 06/13/22] lactulose 20 gram/30 mL oral solution 20 g PO BID liver failure 06/11/22 [History Last Taken 06/14/22] acetaminophen 500 mg tablet 500 mg PO Q6H PRN Pain 11/03/22 [History Last Taken Unknown] ascorbic acid (vitamin C) 500 mg tablet 500 mg PO DAILY supplement 11/03/22 [History Last Taken Unknown] bisacodyl 10 mg rectal suppository 10 mg [place] DAILY PRN Constipation 11/03/22 [History Last Taken Unknown] darbepoetin sree in polysorbat 40 mcg/0.4 mL in polysorbate injection syringe 40 mcg subcut QWEEK bone marrow 11/03/22 [History Last Taken Unknown] dextromethorphan HBr 10 mg/15 mL oral syrup 10 mg PO Q6H PRN Cough 11/03/22 [History Last Taken Unknown] insulin degludec 100 unit/mL (3 mL) subcutaneous pen (Tresiba FlexTouch U-100 insulin) 10 unit subcut DAILY diabetes 11/03/22 [History Last Taken Unknown] insulin glargine 100 unit/mL (3 mL) subcutaneous pen (Lantus Solostar U-100 Insulin) 10 unit subcut DAILY DM2 11/03/22 [History Last Taken Unknown] magnesium hydroxide 400 mg/5 mL oral suspension (Milk of Magnesia) 2,400 mg PO DAILY PRN Constipation 11/03/22 [History Last Taken Unknown] dexamethasone 4 mg tablet 6 mg PO DAILY 7 days #11 tabs 11/07/22 [Rx Last Taken Unknown] Allergy/AdvReac Type Severity Reaction Status Date / Time adhesive Allergy Rash Verified 11/15/22 18:47 escitalopram oxalate Allergy blindness Verified 11/15/22 18:47 [From Lexapro] Fish Containing Products Allergy Other Verified 11/15/22 18:47 gabapentin [From Neurontin] Allergy Alan Verified 11/15/22 18:47 Jez's Syndrome lamotrigine [From Lamictal] Allergy Blindness Verified 11/15/22 18:47 metformin Allergy PT UNSURE Verified 11/15/22 18:47 OF REACTION topiramate [From Topamax] Allergy Other Verified 11/15/22 18:47 sour cream AdvReac Severe Anaphylaxis Uncoded 11/02/22 12:39 Preservatives AdvReac Intermediate passed Uncoded 11/02/22 12:39 out, lungs deflated Family History Father CVA (cerebral vascular accident) Myocardial infarction Heart disease CAD (coronary artery disease) Grandmother CHF (congestive heart failure) Sister Hypertension Mother Heart disease Surgical History H/O: hysterectomy History of abdominal paracentesis (10/2019) History of appendectomy History of cholecystectomy S/P TIPS (transjugular intrahepatic portosystemic shunt) Social History household members: significant other housing: house Smoking Status: Never smoker alcohol intake: never details: Unknown substance use type: does not use ROS ROS Narrative ROS cannot be completed because of encephalopathy. Physical Exam Narrative General: Ill-appearing woman. Lethargic but awakens to voice. She falls asleep quickly after. HEENT: Normocephalic, atraumatic. Mucous membrane moist. PERRLA. Neck: Supple. Trachea is midline. No lymphadenopathy. Heart: Normal S1, S2. No rubs, murmurs or gallops. Lungs: Decreased breath sound at bases particularly on the right lower lobe. Abdomen: Abdomen is not distended. Normal bowel sound, soft, nontender. No guarding or rebound on palpation. Extremities: No clubbing or cyanosis. There is 1+ edema of the lower extremity.. Musculoskeletal. Full passive range of motion. No joint swelling. Neurologic: Encephalopathic. Does not follow command. No focal neurologic deficit on limited exam. Skin: Ecchymosis of extremities without petechiae. Psychiatric: Flat affect. Lab / Micro Data Result Diagrams: 12/08/22 06:55 12/08/22 06:55 Labs: Laboratory Results - last 24 hr 12/07/22 22:15: Urine Color Mary, Urine Clarity Cloudy, Urine pH 5.0, Ur Specific [place] 1.020, Urine Protein 30 H, Urine Glucose (UA) Normal, Urine Ketones 15 H, Urine Occult Blood 150 H, Urine Nitrite Negative, Urine Bilirubin 3 H, Urine Urobilinogen 1 H, Ur Leukocyte Esterase 500 H, Urine RBC 0-5 SEEN, Urine WBC 50-100 SEEN, Ur Squamous Epith Cells 0-5 SEEN, Urine Bacteria 3+, Urine Mucus 0 SEEN 12/07/22 23:10: WBC 6.8, RBC 2.87 L, Hgb 8.9 L, Hct 26.9 L, MCV 93.7, MCH 31.0, MCHC 33.1, RDW Std Deviation 55.8 H, RDW Coeff of Valentina 16.3 H, Plt Count 72 L, MPV 10.0, Immature Gran % (Auto) 2.200 H, Neut % (Auto) 82.7 H, Lymph % (Auto) 7.3 L, Ripley % (Auto) 6.5, Eos % (Auto) 1.0, Baso % (Auto) 0.3, Absolute Neuts (auto) 5.6, Absolute Lymphs (auto) 0.50 L, Nucleated RBC % 0.7, Differential Comment SCANNED 12/07/22 23:10: Sodium 131 L, Potassium 3.7, Chloride 93 L, Carbon Dioxide 27.0, Anion Gap 11, BUN 46 H, Creatinine 4.86 H, Estim Creat Clear Calc 13.83, Est GFR (MDRD) Af Amer 12 L, Est GFR (MDRD) Non-Af 10 L, BUN/Creatinine Ratio 9.5 L, Glucose 171 H, Calcium 8.1 L, Total Bilirubin 1.40 H, Direct Bilirubin 1.05 H, AST 20, ALT 24, Alkaline Phosphatase 219 H, Troponin I High Sens 18, Total Protein 6.9, Albumin 1.5 L, Globulin 5.4 H 12/07/22 23:10: Ammonia 36.0 H 12/08/22 06:22: POC Glucose 173 H 12/08/22 06:55: WBC 8.0, RBC 2.91 L, Hgb 8.9 L, Hct 26.9 L, MCV 92.4, MCH 30.6, MCHC 33.1, RDW Std Deviation 55.9 H, RDW Coeff of Valentina 16.3 H, Plt Count 68 L, MPV 11.7, Immature Gran % (Auto) 0.800, Neut % (Auto) 90.0 H, Lymph % (Auto) 3.5 L, Ripley % (Auto) 5.0, Eos % (Auto) 0.4, Baso % (Auto) 0.3, Absolute Neuts (auto) 7.2, Absolute Lymphs (auto) 0.28 L, Nucleated RBC % 0.3, Differential Comment 12/08/22 06:55: Sodium 130 L, Potassium 3.7, Chloride 94 L, Carbon Dioxide 24.0, Anion Gap 12, BUN 54 H, Creatinine 5.02 H, Estim Creat Clear Calc 13.39, Est GFR (MDRD) Af Amer 12 L, Est GFR (MDRD) Non-Af 10 L, BUN/Creatinine Ratio 10.8, Glucose 176 H, Calcium 7.7 L, Total Bilirubin 1.80 H, AST 23, ALT 22, Alkaline Phosphatase 195 H, Total Protein 5.9 L, Albumin 1.2 L, Globulin 4.7 H, Albumin/Globulin Ratio 0.3 L, TSH 3.64 12/08/22 10:38: POC Glucose 159 H ABG Data ABG results: ABG 12/07/22 22:31 Specimen Type ART Sample Site L Radial pH 7.54 H Bicarbonate Actual 24.5 Total CO2 25 Base Excess 2 O2 Saturation 98 O2 % 21 ABG pCO2 28.7 L ABG pO2 90 Daniel Test Positive O2 Delivery Device Room Air Radiology Impression Brain CT 12/07/22 21:42 IMPRESSION: No acute intracranial abnormality. Electronically Signed: Rahul Lambert MD at 0:00 EST , Chest X-Ray 12/07/22 22:05 IMPRESSION: Moderate right-sided effusion with right lower lobe atelectasis or pneumonia. Right central venous catheter in stable position. Electronically Signed: Sameer Montilla MD at 22:24 EST , Abdomen Ultrasound 12/08/22 05:55 IMPRESSION: Mild ascites. Right greater than left pleural effusions. Electronically Signed: Deena Kingston MD at 8:05 EST ,
--- NOTE | 2022-12-08 12:30 | NURSING ---
Per daughter James, she did not have dialysis yesterday, she was resheduled.
--- NOTE | 2022-12-08 12:38 | CASEMGMT ---
Addendum entered by Bianca Hunter 12/08/22 15:05: Updates sent to [facility] via [email or web address]. JAYLENE Ríos Original Note: MARIANA Note SW attempted to meet with patient, however, patient was not alert. SW met with patient's RN Arun to inquire about patient's symptoms and plan at D/C. RN informed MARIANA patient is from [place] but unsure of current level of care. RN also reported patient hasn't been alert nonresponsive today. MARIANA contacted [facility] and spoke with TAMIKO Fitzgerald. TAMIKO Fitzgerald states patient is currently receiving skilled services and is able to return when she is ready. RN unaware if precert would be needed when patient was medically ready to return. RN explained patient's sister, Jennifer, would be a good point of contact as she has been very involved in patient's care. SW contacted patient's sister, Jennifer, and introduced herself and role as [facility] Hand Hide Stretcher. Jennifer reports she is patient's HCPOA and will bring in paperwork when she is able. Jennifer explained the patient has been at [facility] for a couple of months for therapy and should return. Patient's sister explained states patient's home isn't the best setting due to stairs. SW will continue to follow. Plan: return to [facility] at [place] when medically ready JAYLENE Ríos
--- NOTE | 2022-12-08 14:00 | PCM.PN.HOSP ---
Subjective Subjective Follow-up for acute metabolic encephalopathy: Patient was seen and examined. She is obtunded, does not open her eyes for me with commands. Opens eyes to lobate with sternal rub. Her blood sugars are okay. ABGs reviewed, showed respiratory alkalosis. Discussed with nephrology, patient apparently had her last dialysis on 12/05/22. She will have dialysis today. Vitals otherwise have been stable. Labs reviewed We will consult pulmonology Will reevaluate after dialysis Objective Data Objective Data Vital Signs: Vital Signs Temp Pulse Resp BP Pulse Ox O2 Del Method O2 Flow Rate 98.0 F 108 H 27 H 117/57 L 96 Nasal Cannula 2 12/08/22 13:04 12/08/22 13:15 12/08/22 13:04 12/08/22 13:04 12/08/22 13:04 12/08/22 13:04 12/08/22 13:04 Oxygen Flow Rate (L/min) 2 Oxygen Delivery Method Nasal Cannula Weight: 71.5 kg Body Mass Index (BMI) 23.3 Intake & Output: Intake and Output for Last 24 Hours 12/06/22 12/07/22 12/08/22 23:59 23:59 23:59 Intake Total 180.25 / 180.25 Output Total 0 / 0 Balance 180.25 / 180.25 Lab / Micro Data Result Diagrams: 12/08/22 06:55 12/08/22 06:55 Labs: Laboratory Results - last 24 hr 12/07/22 22:15: Urine Color Mary, Urine Clarity Cloudy, Urine pH 5.0, Ur Specific [place] 1.020, Urine Protein 30 H, Urine Glucose (UA) Normal, Urine Ketones 15 H, Urine Occult Blood 150 H, Urine Nitrite Negative, Urine Bilirubin 3 H, Urine Urobilinogen 1 H, Ur Leukocyte Esterase 500 H, Urine RBC 0-5 SEEN, Urine WBC 50-100 SEEN, Ur Squamous Epith Cells 0-5 SEEN, Urine Bacteria 3+, Urine Mucus 0 SEEN 12/07/22 23:10: WBC 6.8, RBC 2.87 L, Hgb 8.9 L, Hct 26.9 L, MCV 93.7, MCH 31.0, MCHC 33.1, RDW Std Deviation 55.8 H, RDW Coeff of Valentina 16.3 H, Plt Count 72 L, MPV 10.0, Immature Gran % (Auto) 2.200 H, Neut % (Auto) 82.7 H, Lymph % (Auto) 7.3 L, Reeves % (Auto) 6.5, Eos % (Auto) 1.0, Baso % (Auto) 0.3, Absolute Neuts (auto) 5.6, Absolute Lymphs (auto) 0.50 L, Nucleated RBC % 0.7, Differential Comment SCANNED 12/07/22 23:10: Sodium 131 L, Potassium 3.7, Chloride 93 L, Carbon Dioxide 27.0, Anion Gap 11, BUN 46 H, Creatinine 4.86 H, Estim Creat Clear Calc 13.83, Est GFR (MDRD) Af Amer 12 L, Est GFR (MDRD) Non-Af 10 L, BUN/Creatinine Ratio 9.5 L, Glucose 171 H, Calcium 8.1 L, Total Bilirubin 1.40 H, Direct Bilirubin 1.05 H, AST 20, ALT 24, Alkaline Phosphatase 219 H, Troponin I High Sens 18, Total Protein 6.9, Albumin 1.5 L, Globulin 5.4 H 12/07/22 23:10: Ammonia 36.0 H 12/08/22 06:22: POC Glucose 173 H 12/08/22 06:55: WBC 8.0, RBC 2.91 L, Hgb 8.9 L, Hct 26.9 L, MCV 92.4, MCH 30.6, MCHC 33.1, RDW Std Deviation 55.9 H, RDW Coeff of Valentina 16.3 H, Plt Count 68 L, MPV 11.7, Immature Gran % (Auto) 0.800, Neut % (Auto) 90.0 H, Lymph % (Auto) 3.5 L, Reeves % (Auto) 5.0, Eos % (Auto) 0.4, Baso % (Auto) 0.3, Absolute Neuts (auto) 7.2, Absolute Lymphs (auto) 0.28 L, Nucleated RBC % 0.3, Differential Comment 12/08/22 06:55: Sodium 130 L, Potassium 3.7, Chloride 94 L, Carbon Dioxide 24.0, Anion Gap 12, BUN 54 H, Creatinine 5.02 H, Estim Creat Clear Calc 13.39, Est GFR (MDRD) Af Amer 12 L, Est GFR (MDRD) Non-Af 10 L, BUN/Creatinine Ratio 10.8, Glucose 176 H, Calcium 7.7 L, Total Bilirubin 1.80 H, AST 23, ALT 22, Alkaline Phosphatase 195 H, Total Protein 5.9 L, Albumin 1.2 L, Globulin 4.7 H, Albumin/Globulin Ratio 0.3 L, TSH 3.64 12/08/22 10:38: POC Glucose 159 H ABG Data ABG results: ABG 12/07/22 22:31 Specimen Type ART Sample Site L Radial pH 7.54 H Bicarbonate Actual 24.5 Total CO2 25 Base Excess 2 O2 Saturation 98 O2 % 21 ABG pCO2 28.7 L ABG pO2 90 Daniel Test Positive O2 Delivery Device Room Air Radiography Diagnostic Testing: Radiology Impression Brain CT 12/07/22 21:42 IMPRESSION: No acute intracranial abnormality. Electronically Signed: Rahul Lambert MD at 0:00 EST , Chest X-Ray 12/07/22 22:05 IMPRESSION: Moderate right-sided effusion with right lower lobe atelectasis or pneumonia. Right central venous catheter in stable position. Electronically Signed: Sameer Montilla MD at 22:24 EST , Abdomen Ultrasound 12/08/22 05:55 IMPRESSION: Mild ascites. Right greater than left pleural effusions. Electronically Signed: Deena Kingston MD at 8:05 EST ,
[2022-12-08] MEDS: Heparin 10,000 UNITS/10 ML Vial 3400 UNITS IV (17:20)
--- NOTE | 2022-12-08 17:32 | DIALYSIS ---
hemodialysis completed x 3 hrs. Access via right carter HD cath. Dressing changed. Net UF 1000ml. pt was somnolent throughout tx. See Hd flowsheet on chart.
[2022-12-08 18:16] LABS: Bedside Glucose 118 mg/dL (74-106)
--- NOTE | 2022-12-08 18:30 | NURSING ---
report called to Jon MORRISON in ICU
--- NOTE | 2022-12-08 19:00 | NURSING ---
Patient received from [facility]. Patient is obtunded on arrival, will open eyes to noxious stimuli and looks around but goes directly back to sleep when stimulation is removed. Patient placed on optical dispenser and was noted to have a medium soft formed stool when she was turned and was cleaned up. Skin is intact but multiple areas of ecchymosis noted all over her body in various different stages and sizes. Some slight blue shading to bilateral thighs is somewhat reminiscent of mottling.
[2022-12-08] MEDS: Ceftriaxone 1 GM/50 ML BAG IV (22:38)
[2022-12-08] MEDS: Ondansetron 4 MG/2 ML Vial IV (22:40)
[2022-12-09] VITALS (16 sets, daily range): BP systolic 97–129; BP diastolic 47–67; PULSE 83–114; RESP 18–24; TEMP 36.3–37.7; O2SAT 93–98
[2022-12-09] MEDS: Metoprolol Tartrate 5 MG/5 ML Vial IV ×2 (00:08→05:08)
[2022-12-09] MEDS: Insulin Lispro 100 UNIT/ML INSULN.PEN SC ×4 (00:09→22:34)
[2022-12-09] MEDS: Menthol/Lanolin/Calamine/Znox 113 GM Tube 1 APPLIC TOPICAL ×2 (00:09→22:35)
[2022-12-09 00:45] LABS: Bedside Glucose 163 mg/dL (74-106)
[2022-12-09 05:30] LABS: Bedside Glucose 169 mg/dL (74-106)
[2022-12-09 05:36] LABS: Absolute Lymphocyte Count 0.43 X10^3/uL (0.83-4.51); Absolute Neutrophil Count 5.3 X10^3/uL (2.0-7.7); Basophil# 0.01 X10^3/uL; Basophil% 0.2 % (0-1); Eosinophil# 0.03 X10^3/uL; Eosinophils% 0.5 % (0-5); Hematocrit 24.2 % (37-47); Hemoglobin 7.7 g/dL (12.0-15.0); Lymphocyte # 0.43 X10^3/ul (0.83-4.51); Lymphocyte % 6.7 % (19-41); Mean Corp Hgb Conc 31.8 g/dL (32-36); Mean Corpuscular Hgb 30.7 pg (27.0-32.0); Mean Corpuscular Volume 96.4 fL (81-99); Mean Platelet Vol. 11.6 fl (6.2-12.0); Monocyte# 0.57 X10^3/uL; Monocyte% 8.9 % (0-10); NRBC Flagged by Analyzer 0 % (0-5); Neutrophil # 5.33 X10^3/uL (2.7-7.7); Neutrophil % 83.2 % (47-70); POSITIVE COUNT YES; POSITIVE DIFFERENTIAL YES; POSITIVE MORPHOLOGY YES; Platelet Count 70 K/mm3 (150-450); RBC Distribution Width CV 16.9 % (11.6-14.6); RBC Distribution Width SD 59.1 fl (35.1-43.9); Red Blood Count 2.51 M/mm3 (4.2-5.4); White Blood Count 6.4 K/mm3 (4.4-11.0)
[2022-12-09 05:45] LABS: Differential Indicated SCAN CRITERIA MET
[2022-12-09 05:47] LABS: ALB/GLOB Ratio 0.2 RATIO (0.9-2.4); AST(SGOT) 15 U/L (15-37); Alanine Aminotransfer ALT/SGPT 18 U/L (13-56); Albumin, Serum 1.1 g/dL (3.2-5.0); Alkaline Phosphatase 168 U/L (45-117); Anion Gap 10 (5-15); BUN 35 mg/dL (7-18); BUN/Creat Ratio 9.9 RATIO (10-20); Calcium,Total 7.7 mg/dL (8.5-10.1); Chloride 99 mmol/L (98-107); Creatinine, Serum 3.54 mg/dL (0.55-1.02); EST Glomerular Filtration Rate 14 mL/min (>60); Est Glom Filt Rate - Afr Amer 17 mL/min (>60); Estimated Creatinine Clearance 18.99 ml/min; Globulin 4.8 g/dL (2.2-4.2); Glucose 174 mg/dL (74-106); Potassium 4.3 mmol/L (3.5-5.1); Protein, Total 5.9 g/dL (6.4-8.2); Sodium Level 135 mmol/L (136-145)
[2022-12-09 05:57] LABS: Differential Comment SCANNED
--- NOTE | 2022-12-09 07:51 | PN.HOSP_ITS ---
Subjective Subjective Follow-up for acute metabolic encephalopathy: Patient was seen and examined.? She remained obtunded after dialysis yesterday. Transferred from ICU for closer monitoring. Patient remained obtunded until the earlier parts of today when she woke groaning. She is alert, oriented to self only, confused. Objective Data Objective Data Vital Signs: Vital Signs Temp Pulse Resp BP Pulse Ox O2 Del Method O2 Flow Rate 98.6 F 97 21 H 115/56 L 96 Nasal Cannula 2 12/09/22 04:00 12/09/22 06:00 12/09/22 06:00 12/09/22 06:00 12/09/22 07:32 12/09/22 07:32 12/09/22 07:32 Oxygen Flow Rate (L/min) 2 Oxygen Delivery Method Nasal Cannula Weight: 69.6 kg Body Mass Index (BMI) 23.3 Intake & Output: Intake and Output for Last 24 Hours 12/07/22 12/08/22 12/09/22 23:59 23:59 23:59 Intake Total 230.25 / 230.25 Output Total 1999 0 / 0 Balance -1769.75 / -1769.75 0 / 0 Lab / Micro Data Result Diagrams: 12/09/22 05:10 12/09/22 05:10 Labs: Laboratory Results - last 24 hr 12/08/22 06:55: Differential Comment 12/08/22 06:55: Sodium 130 L, Potassium 3.7, Chloride 94 L, Carbon Dioxide 24.0, Anion Gap 12, BUN 54 H, Creatinine 5.02 H, Estim Creat Clear Calc 13.39, Est GFR (MDRD) Af Amer 12 L, Est GFR (MDRD) Non-Af 10 L, BUN/Creatinine Ratio 10.8, Glucose 176 H, Calcium 7.7 L, Total Bilirubin 1.80 H, AST 23, ALT 22, Alkaline Phosphatase 195 H, Total Protein 5.9 L, Albumin 1.2 L, Globulin 4.7 H, Albumin/Globulin Ratio 0.3 L, TSH 3.64 12/08/22 10:38: POC Glucose 159 H 12/08/22 17:36: POC Glucose 118 H 12/09/22 00:08: POC Glucose 163 H 12/09/22 05:06: POC Glucose 169 H 12/09/22 05:10: WBC 6.4, RBC 2.51 L, Hgb 7.7 L, Hct 24.2 L, MCV 96.4, MCH 30.7, MCHC 31.8 L, RDW Std Deviation 59.1 H, RDW Coeff of Valentina 16.9 H, Plt Count 70 L, MPV 11.6, Immature Gran % (Auto) 0.500, Neut % (Auto) 83.2 H, Lymph % (Auto) 6.7 L, Gillespie % (Auto) 8.9, Eos % (Auto) 0.5, Baso % (Auto) 0.2, Absolute Neuts (auto) 5.3, Absolute Lymphs (auto) 0.43 L, Nucleated RBC % 0, Differential Comment SCANNED 12/09/22 05:10: Sodium 135 L, Potassium 4.3, Chloride 99, Carbon Dioxide 26.0, Anion Gap 10, BUN 35 H, Creatinine 3.54 H, Estim Creat Clear Calc 18.99, Est GFR (MDRD) Af Amer 17 L, Est GFR (MDRD) Non-Af 14 L, BUN/Creatinine Ratio 9.9 L, Glucose 174 H, Calcium 7.7 L, Total Bilirubin 1.70 H, AST 15, ALT 18, Alkaline Phosphatase 168 H, Total Protein 5.9 L, Albumin 1.1 L, Globulin 4.8 H, Albumin/ Globulin Ratio 0.2 L 12/09/22 05:40: Ammonia 17.0 Micro: Microbiology 12/07/22 22:15 Urine, Clean Catch Urine Culture - Preliminary Gram negative justo Radiography Diagnostic Testing: Radiology Impression Abdomen Ultrasound 12/08/22 05:55 IMPRESSION: Mild ascites. Right greater than left pleural effusions. Electronically Signed: Deena Kingston MD at 8:05 EST Reading Location ID and State: [facility] / [place] Tel , Service support , Physical Exam Narrative Physical exam: General: Alert, Oriented to self, cooperative HEENT: Atraumatic Oral: Moist Mucosa Neck: Supple Lungs: Diminished to auscultation Cardiovascular: HS I+II, regular, no murmurs Abdomen: Bowel Sounds Present, Soft, Non Tender Extremities: No edema Skin: No rashes, No breakdown Neurological: Grossly intact Psych/Mental Status: Appropriate Assessment & Plan Assessment/Plan (1) Encephalopathy: (2) UTI (urinary tract infection): PLAN: Plan 1. Acute metabolic encephalopathy secondary to Acute gram neg UTI Patient is less obtunded today. She is alert oriented x1. She is confused We will continue to monitor 2. Acute gram-negative UTI, continue on IV ceftriaxone Will trend urine cultures. Repeat labs in am 3. Moderate right side pleural effusion, seen on CXR 4. ESRD on HD, nephrology consulted, patient had dialysis yesterday, Trend labs 5. Hypertension, controlled on Coreg, will dc scheduled metoprolol 6. Type 2DM, blood sugars fairly controlled, will resume home Lantus and continue with insulin sliding scale 7. 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 DVT PPx- SCDs Charges/Coding Visit Charges Inpatient E&M: 62190 [facility] Hosp L3
--- NOTE | 2022-12-09 07:52 | PN.CC_ITS ---
Assessment & Plan Assessment/Plan (1) Encephalopathy: (2) Autoimmune hepatitis: (3) Schizoaffective disorder: QUALIFIERS: Schizoaffective disorder type: depressive Qualified Code(s): F25.1 - Schizoaffective disorder, depressive type (4) UTI (urinary tract infection): PLAN: Plan RECOMMENDATIONS: 1. Continue lactulose and rifaximin 2. Agree with empiric antibiotics pending cultures 3. Hemodialysis per nephrology 4. Await results of EEG 5. Hemodynamically stable on minimal nasal cannula. Okay to leave the intensive care unit IMPRESSIONS: 1. Metabolic encephalopathy secondary to UTI Clinical suspicion for delirium secondary to UTI. Patient does have an elevated ammonia level, so initiation of lactulose and rifaximin would be reasonable. Patient does have an EEG currently pending. Blood sugars have been adequate. ABG overnight was not suggestive of CO2 retention on room air on presentation. Patient reportedly did tolerate a full hemodialysis session yesterday. Patient may also be experiencing an element of delirium secondary to UTI and empiric antibiotics have been initiated. Patient does appear to be imp roving. Cultures are currently showing greater than 100,000 GNR. Could obtain an ABG if patient is not responding better following hemodialysis. 2. Moderate right pleural effusion Review of the chest x-ray does show a right pleural effusion. However, patient is not hypoxic and does not appear to be symptomatic at this time. Previous thoracentesis was consistent with a transudate etiology related to renal and hepatic function. Patient could have a thoracentesis if she becomes symptomatic, but otherwise low clinical suspicion for exudate etiology at this time. 3. ESRD secondary to hypertension and diabetes mellitus Patient reportedly being worked up for a possible transplant. Patient did have dialysis, but had unclear clearance. Nephrology has been consulted. Defer dialysis timing to them. 4. Hypertension/cirrhosis/chronic thrombocytopenia/schizoaffective disorder Complicates care, management, recovery and prognosis. Clinical suspicion for thrombocytopenia secondary to hepatic function. Blood pressure appears to be appropriate at this time. Patient should be continued on baseline mood medications once able to take p.o. Patient reportedly does use insulin at baseline. Sliding scale likely sufficient at this time given patient's variable p.o. intake. Subjective Subjective Patient able to tolerate hemodialysis yesterday, but was transferred to the intensive care unit secondary to concerns for mentation. Since arrival to the intensive care unit, patient has reported some lower abdominal pain, but is opening her eyes and following commands this morning. No active bleeding has been noted. Objective Data Objective Data Vital Signs: Vital Signs Temp Pulse Resp BP Pulse Ox O2 Del Method O2 Flow Rate 37.0 C 97 21 H 115/56 L 96 Nasal Cannula 2 12/09/22 04:00 12/09/22 06:00 12/09/22 06:00 12/09/22 06:00 12/09/22 07:32 12/09/22 07:32 12/09/22 07:32 Oxygen Flow Rate (L/min) 2 Oxygen Delivery Method Nasal Cannula Weight: 69.6 kg Body Mass Index (BMI) 23.3 Intake & Output: Intake and Output for Last 24 Hours 12/07/22 12/08/22 12/09/22 23:59 23:59 23:59 Intake Total 230.25 / 230.25 Output Total 1999 0 / 0 Balance -1769.75 / -1769.75 0 / 0 Lab / Micro Data Attestation: I reviewed the patient's lab results. Result Diagrams: 12/09/22 05:10 12/09/22 05:10 Labs: Laboratory Results - last 24 hr 12/08/22 06:55: Differential Comment 12/08/22 06:55: Sodium 130 L, Potassium 3.7, Chloride 94 L, Carbon Dioxide 24.0, Anion Gap 12, BUN 54 H, Creatinine 5.02 H, Estim Creat Clear Calc 13.39, Est GFR (MDRD) Af Amer 12 L, Est GFR (MDRD) Non-Af 10 L, BUN/Creatinine Ratio 10.8, Glucose 176 H, Calcium 7.7 L, Total Bilirubin 1.80 H, AST 23, ALT 22, Alkaline Phosphatase 195 H, Total Protein 5.9 L, Albumin 1.2 L, Globulin 4.7 H, Albumin/Globulin Ratio 0.3 L, TSH 3.64 12/08/22 10:38: POC Glucose 159 H 12/08/22 17:36: POC Glucose 118 H 12/09/22 00:08: POC Glucose 163 H 12/09/22 05:06: POC Glucose 169 H 12/09/22 05:10: WBC 6.4, RBC 2.51 L, Hgb 7.7 L, Hct 24.2 L, MCV 96.4, MCH 30.7, MCHC 31.8 L, RDW Std Deviation 59.1 H, RDW Coeff of Valentina 16.9 H, Plt Count 70 L, MPV 11.6, Immature Gran % (Auto) 0.500, Neut % (Auto) 83.2 H, Lymph % (Auto) 6.7 L, [place] % (Auto) 8.9, Eos % (Auto) 0.5, Baso % (Auto) 0.2, Absolute Neuts (auto) 5.3, Absolute Lymphs (auto) 0.43 L, Nucleated RBC % 0, Differential Comment SCANNED 12/09/22 05:10: Sodium 135 L, Potassium 4.3, Chloride 99, Carbon Dioxide 26.0, Anion Gap 10, BUN 35 H, Creatinine 3.54 H, Estim Creat Clear Calc 18.99, Est GFR (MDRD) Af Amer 17 L, Est GFR (MDRD) Non-Af 14 L, BUN/Creatinine Ratio 9.9 L, Glucose 174 H, Calcium 7.7 L, Total Bilirubin 1.70 H, AST 15, ALT 18, Alkaline Phosphatase 168 H, Total Protein 5.9 L, Albumin 1.1 L, Globulin 4.8 H, Albumin/Globulin Ratio 0.2 L 12/09/22 05:40: Ammonia 17.0 Micro: Microbiology 12/07/22 22:15 Urine, Clean Catch Urine Culture - Preliminary Gram negative justo Radiography Diagnostic Testing: Radiology Impression Abdomen Ultrasound 12/08/22 05:55 IMPRESSION: Mild ascites. Right greater than left pleural effusions. Electronically Signed: Deena Kingston MD at 8:05 EST Reading Location ID and State: [facility] / [place] Tel , Service support , Physical Exam Const alert and no apparent distress Constitutional Narrative: Patient appears older than stated age. RASS 0. No accessory muscle use noted. HEENT normocephalic, head/scalp atraumatic, hearing grossly normal bilaterally and mo ist oral mucous membranes Eyes PERRL, EOMs intact bilaterally and conjunctivae normal Eyes Narrative: No scleral icterus or injection noted Neck no lymphadenopathy and supple Chest inspection of chest normal Chest Narrative: Right chest tunneled hemodialysis line is clean, dry and intact Resp normal respiratory effort, no retractions and no use of accessory muscles Resp Narrative: No dullness to percussion. Auscultation: diminished lung sounds right; Negative for rhonchi or wheezes Cardio regular rate, regular rhythm, S1 normal heart sound, S2 normal heart sound, no murmurs, no rub and no gallops GI normal to inspection, nondistended, normoactive bowel sounds, soft to palpation, non-tender and non-distended Extremity normal to inspection and full ROM General Extremity: edema Skin Skin Narrative: Ecchymosis noted in the right arm without associated mottling Neuro CN's II-XII intact bilaterally, moves all extremities and no focal motor deficits Psych Activity / Motor Behavior: restless Mood & Affect: labile affect Charges/Coding Visit Charges Inpatient E&M: 89268 Subs Hosp L2
--- NOTE | 2022-12-09 09:36 | PN.RENAL_ITS ---
Subjective Subjective Following for dialysis dependent JULIANNE. The patient was moved to intensive care unit yesterday for closer monitoring. She is much more awake, alert today, but she is still intermittently confused. She is complaining of buttock pain. There is no chest pain or shortness of breath. Objective Data Objective Data Vital Signs: Vital Signs Temp Pulse Resp BP Pulse Ox O2 Del Method O2 Flow Rate 99.8 F H 100 20 H 114/55 L 98 Room Air 2 12/09/22 08:00 12/09/22 08:49 12/09/22 08:00 12/09/22 08:00 12/09/22 08:00 12/09/22 08:00 12/09/22 07:32 Oxygen Flow Rate (L/min) 2 Oxygen Delivery Method Room Air Weight: 69.6 kg Body Mass Index (BMI) 23.3 Intake & Output: Intake and Output for Last 24 Hours 12/07/22 12/08/22 12/09/22 23:59 23:59 23:59 Intake Total 230.25 / 230.25 Output Total 1999 0 / 0 Balance -1769.75 / -1769.75 0 / 0 Lab / Micro Data Result Diagrams: 12/09/22 05:10 12/09/22 05:10 Labs: Laboratory Results - last 24 hr 12/08/22 10:38: POC Glucose 159 H 12/08/22 17:36: POC Glucose 118 H 12/09/22 00:08: POC Glucose 163 H 12/09/22 05:06: POC Glucose 169 H 12/09/22 05:10: WBC 6.4, RBC 2.51 L, Hgb 7.7 L, Hct 24.2 L, MCV 96.4, MCH 30.7, MCHC 31.8 L, RDW Std Deviation 59.1 H, RDW Coeff of Valentina 16.9 H, Plt Count 70 L, MPV 11.6, Immature Gran % (Auto) 0.500, Neut % (Auto) 83.2 H, Lymph % (Auto) 6.7 L, [place] % (Auto) 8.9, Eos % (Auto) 0.5, Baso % (Auto) 0.2, Absolute Neuts (auto) 5.3, Absolute Lymphs (auto) 0.43 L, Nucleated RBC % 0, Differential Comment SCANNED 12/09/22 05:10: Sodium 135 L, Potassium 4.3, Chloride 99, Carbon Dioxide 26.0, Anion Gap 10, BUN 35 H, Creatinine 3.54 H, Estim Creat Clear Calc 18.99, Est GFR (MDRD) Af Amer 17 L, Est GFR (MDRD) Non-Af 14 L, BUN/Creatinine Ratio 9.9 L, Glucose 174 H, Calcium 7.7 L, Total Bilirubin 1.70 H, AST 15, ALT 18, Alkaline Phosphatase 168 H, Total Protein 5.9 L, Albumin 1.1 L, Globulin 4.8 H, Albumin/Globulin Ratio 0.2 L 12/09/22 05:40: Ammonia 17.0 Micro: Microbiology 12/07/22 22:15 Urine, Clean Catch Urine Culture - Preliminary Gram negative justo Physical Exam Narrative General: Ill-appearing woman. Lethargic but awakens to voice. She falls asleep quickly after. HEENT: Normocephalic, atraumatic. Mucous membrane moist. PERRLA. Neck: Supple. Trachea is midline. No lymphadenopathy. Heart: Normal S1, S2. No rubs, murmurs or gallops. Lungs: Decreased breath sound at bases particularly on the right lower lobe. Abdomen: Abdomen is not distended. Normal bowel sound, soft, nontender. No guarding or rebound on palpation. Extremities: No clubbing or cyanosis. There is 1+ edema of the lower extremity. 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 The patient is admitted to the hospital on 12/08/2022 with hepatic encephalopathy. Nephrology is following for dialysis management. Acute kidney injury on chronic kidney disease stage IIIb. The patient is known to our service with dialysis dependent JULIANNE on CKD stage IIIb. She dialyzes at [facility] on MWF schedule. She was started on hemodialysis on 10/13/2022 at [facility]. There has been no evidence of renal recovery. Her serum creatinine is 5.02 mg/dL yesterday prior to dialysis despite low muscle mass and chronic liver disease. Therefore, renal function remains quite low. Because the patient missed dialysis on 12/07/2022, she was dialyzed yesterday. There is no need for dialysis today. We will arrange for dialysis on her usual schedule again tomorrow. Hyponatremia. The patient has mild hyponatremia due to ESLD and oliguric JULIANNE. Her serum sodium was 130 mmol/L on 12/08/2022. This degree of hyponatremia is unlikely to cause altered mental status. Serum sodium has improved with hemodialysis. Encephalopathy. Likely due to hepatic encephalopathy with elevated ammonia level. Clinically improved compared to the last 24 hours. She is being treated with lactulose and rifaximin. Nephrology plan is discussed with Dr. Castro.
[2022-12-09 12:10] LABS: Bedside Glucose 150 mg/dL (74-106)
[2022-12-09] MEDS: Hydrocortisone 25 MG Suppository RC (14:02)
[2022-12-09] MEDS: Acetaminophen 325 MG Tablet 650 MG PO (14:05)
[2022-12-09 17:35] LABS: Bedside Glucose 274 mg/dL (74-106)
[2022-12-09] MEDS: Ceftriaxone 1 GM/50 ML BAG IV (22:27)
[2022-12-09] MEDS: Carvedilol 6.25 MG Tablet PO (22:35)
[2022-12-09 23:00] LABS: Bedside Glucose 293 mg/dL (74-106)
[2022-12-10] VITALS (10 sets, daily range): BP systolic 96–158; BP diastolic 49–68; PULSE 74–93; RESP 18–22; TEMP 36.2–36.7; O2SAT 94–97
[2022-12-10] MEDS: Acetaminophen 325 MG Tablet 650 MG PO ×3 (03:52→23:07)
[2022-12-10 04:19] LABS: Amphetamine Urine VISTA NEGATIVE (<1000 ng/mL); Barbiturate Urine VISTA NEGATIVE (< 200 ng/mL); Benzodiazepine Urine VISTA NEGATIVE (< 200 ng/mL); Cocaine Urine VISTA NEGATIVE (< 300 ng/mL); Ecstacy Urine VISTA NEGATIVE (< 500 ng/mL); Methadone Urine VISTA NEGATIVE (< 300 ng/mL); PCP Urine VISTA NEGATIVE (< 25 ng/mL); THC Urine VISTA NEGATIVE (< 50 ng/mL); Vista UDS pH Range 3
[2022-12-10 05:48] LABS: Absolute Lymphocyte Count 0.34 X10^3/uL (0.83-4.51); Absolute Neutrophil Count 4.4 X10^3/uL (2.0-7.7); Basophil# 0.01 X10^3/uL; Basophil% 0.2 % (0-1); Differential Indicated SCAN CRITERIA MET; Eosinophil# 0.08 X10^3/uL; Eosinophils% 1.5 % (0-5); Hematocrit 21.7 % (37-47); Hemoglobin 6.8 g/dL (12.0-15.0); Lymphocyte # 0.34 X10^3/ul (0.83-4.51); Lymphocyte % 6.4 % (19-41); Mean Corp Hgb Conc 31.3 g/dL (32-36); Mean Corpuscular Hgb 30.5 pg (27.0-32.0); Mean Corpuscular Volume 97.3 fL (81-99); Mean Platelet Vol. 10.8 fl (6.2-12.0); Monocyte# 0.42 X10^3/uL; Monocyte% 7.9 % (0-10); NRBC Flagged by Analyzer 0.6 % (0-5); Neutrophil # 4.41 X10^3/uL (2.7-7.7); Neutrophil % 83.4 % (47-70); POSITIVE COUNT YES; POSITIVE DIFFERENTIAL YES; POSITIVE MORPHOLOGY YES; Platelet Count 56 K/mm3 (150-450); RBC Distribution Width CV 16.6 % (11.6-14.6); RBC Distribution Width SD 58.3 fl (35.1-43.9); Red Blood Count 2.23 M/mm3 (4.2-5.4); White Blood Count 5.3 K/mm3 (4.4-11.0)
[2022-12-10 06:17] LABS: ALB/GLOB Ratio 0.3 RATIO (0.9-2.4); AST(SGOT) 15 U/L (15-37); Alanine Aminotransfer ALT/SGPT 15 U/L (13-56); Albumin, Serum 1.1 g/dL (3.2-5.0); Alkaline Phosphatase 152 U/L (45-117); Anion Gap 10 (5-15); BUN 53 mg/dL (7-18); BUN/Creat Ratio 12.2 RATIO (10-20); Calcium,Total 7.7 mg/dL (8.5-10.1); Chloride 97 mmol/L (98-107); Creatinine, Serum 4.36 mg/dL (0.55-1.02); EST Glomerular Filtration Rate 11 mL/min (>60); Est Glom Filt Rate - Afr Amer 14 mL/min (>60); Estimated Creatinine Clearance 15.42 ml/min; Globulin 4.2 g/dL (2.2-4.2); Glucose 230 mg/dL (74-106); Potassium 4.4 mmol/L (3.5-5.1); Protein, Total 5.3 g/dL (6.4-8.2); Sodium Level 130 mmol/L (136-145)
[2022-12-10] MEDS: Insulin Lispro 100 UNIT/ML INSULN.PEN SC ×3 (06:29→23:06)
[2022-12-10 06:50] LABS: Bedside Glucose 238 mg/dL (74-106)
[2022-12-10 07:09] LABS: Anisocytosis 1+; Platelet Estimate MOD DEC (ADEQ)
[2022-12-10] MEDS: Hydrocortisone 25 MG Suppository RC ×2 (10:40→16:25)
--- NOTE | 2022-12-10 11:30 | PN.HOSP_ITS ---
Subjective Subjective Follow-up acute cystitis ? Patient is a 52-year-old lady with multiple comorbidities including end-stage renal disease on hemodialysis, autoimmune hepatitis currently on liver transplant list at [facility] who was admitted with altered mental status. Diagnosed with acute cystitis admitted to a monitored bed where patient has since been managed Objective Data Objective Data Vital Signs: Vital Signs Temp Pulse Resp BP Pulse Ox O2 Del Method O2 Flow Rate 97.3 F L 82 18 106/56 L 97 Room Air 2 12/10/22 10:34 12/10/22 10:34 12/10/22 10:34 12/10/22 10:34 12/10/22 10:34 12/10/22 10:34 12/09/22 07:32 Oxygen Flow Rate (L/min) 2 Oxygen Delivery Method Room Air Weight: 70.9 kg Body Mass Index (BMI) 23.3 Intake & Output: Intake and Output for Last 24 Hours 12/08/22 12/09/22 12/10/22 23:59 23:59 23:59 Intake Total 230.25 / 230.25 660 / 660 50 / 50 Output Total 1999 0 / 0 200 / 200 Balance -1769.75 / -1769.75 660 / 660 -150 / -150 Lab / Micro Data Result Diagrams: 12/10/22 13:37 12/10/22 04:52 Labs: Laboratory Results - last 24 hr 12/08/22 03:35: Urine Opiates Screen NEGATIVE, Urine Methadone Screen NEGATIVE, Ur Barbiturates Screen NEGATIVE, Ur Phencyclidine Scrn NEGATIVE, Ur Amphetamines Screen NEGATIVE, MDMA (Ecstasy) Screen NEGATIVE, U Benzodiazepines Scrn NEGATIVE, Urine Cocaine Screen NEGATIVE, U Cannabinoids Screen NEGATIVE, Ur Drug Screen Comment 12/09/22 11:08: POC Glucose 150 H 12/09/22 17:00: POC Glucose 274 H 12/09/22 22:33: POC Glucose 293 H 12/10/22 04:52: WBC 5.3, RBC 2.23 L, Hgb 6.8 L, Hct 21.7 L, MCV 97.3, MCH 30.5, MCHC 31.3 L, RDW Std Deviation 58.3 H, RDW Coeff of Valentina 16.6 H, Plt Count 56 L, MPV 10.8, Immature Gran % (Auto) 0.600, Neut % (Auto) 83.4 H, Lymph % (Auto) 6.4 L, [place] % (Auto) 7.9, Eos % (Auto) 1.5, Baso % (Auto) 0.2, Absolute Neuts (auto) 4.4, Absolute Lymphs (auto) 0.34 L, Nucleated RBC % 0.6, Platelet Estimate MOD DEC, Anisocytosis 1+ 12/10/22 04:52: Sodium 130 L, Potassium 4.4, Chloride 97 L, Carbon Dioxide 23.0, Anion Gap 10, BUN 53 H, Creatinine 4.36 H, Estim Creat Clear Calc 15.42, Est GFR (MDRD) Af Amer 14 L, Est GFR (MDRD) Non-Af 11 L, BUN/Creatinine Ratio 12.2, Glucose 230 H, Calcium 7.7 L, Total Bilirubin 1.30 H, AST 15, ALT 15, Alkaline Phosphatase 152 H, Total Protein 5.3 L, Albumin 1.1 L, Globulin 4.2, Albumin/Globulin Ratio 0.3 L 12/10/22 06:28: POC Glucose 238 H 12/10/22 07:30: Blood Type O POSITIVE, Antibody Screen NEGATIVE, Crossmatch See Detail Micro: Microbiology 12/07/22 22:15 Urine, Clean Catch Urine Culture - Final Klebsiella aerogenes Physical Exam Narrative GENERAL: Lethargic but arousable HEENT: Atraumatic; normocephalic EYES; Anicteric, Normal Conjunctiva NECK; supple, normal thyroid, RESPIRATORY: Diminished to auscultation CARDIOVASCULAR: Regular S1 S2, GI: soft, normoactive bowel sounds, : No Renal angle tenderness; EXTREMITIES: No edema, no clubbing, MUSCULOSKELETAL: no muscle wasting NEURO: Awake; no lateralizing signs. SKIN: No Rash PSYCH; Flat affect Assessment & Plan Assessment/Plan (1) Encephalopathy: (2) UTI (urinary tract infection): PLAN: Plan Patient is a 52-year-old lady with multiple comorbidities including end-stage renal disease on hemodialysis, autoimmune hepatitis currently on liver transplant list at [facility] who was admitted with altered mental status. Diagnosed with acute cystitis admitted to a monitored bed where patient has since been managed 1. Acute metabolic encephalopathy secondary to acute cystitis ? Admitted to monitored bed managed with appropriate antibiotic therapy 2. Acute cystitis with Klebsiella pneumonia ? Patient is currently on appropriate antibiotic therapy with ceftriaxone 3. End-stage renal disease ? Patient is on hemodialysis on Mondays, Wednesdays and Fridays ? Consult placed to nephrology for dialysis orders 4. 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 Patient apparently on a transplant list at [facility]. Patient is on rifaximin and lactulose did continue. patient's family currently requesting transfer to [facility]. Subsequent monitoring with daily complete metabolic panel ordered 5. Essential hypertension ? Blood pressure controlled on carvedilol did continue 6. Diabetes mellitus type 2 ? Patient is on scheduled long-acting insulin and short acting insulin did continue with home dose also placed on Accu-Cheks with before meals and at bedtime and sliding scale coverage 7. Hypothyroidism - Patient is on levothyroxine home dose continued 8. Anemia ? Secondary to anemia of chronic disorder. With patient hemoglobin dropping to 6.8 an order was given for patient to be transfused with 1 unit PRBC repeat CBC ordered for a.m. 9. Thrombocytopenia ? Secondary to patient chronic liver disease monitoring with daily CBC with differential 10. DVT prophylaxis ? Bilateral SCDs Time spent in the patient's overall evaluation,decision-making process, review of diagnostic data, adjustment of management, discussion with other providers, nursing nursing and ancillary staff involved in patient's care documentation, 55-minutes Charges/Coding Visit Charges Inpatient E&M: 41006 Subs Hosp L3
[2022-12-10 11:51] LABS: Bedside Glucose 116 mg/dL (74-106)
--- NOTE | 2022-12-10 12:28 | DIALYSIS ---
Addendum entered by Helder Torres RN 12/10/22 12:29: UF removed 500 ml. Original Note: Treatment completed as ordered, cvc care per policy. Heparin dwell instilled to cvc volume. Patient stable, alert. 1 unit PRBc administered this treatment. Patient tolerated well.
[2022-12-10 13:48] LABS: Hemoglobin 9.9 g/dL (12.0-15.0)
--- NOTE | 2022-12-10 14:27 | PCM.PN.REN ---
Subjective Subjective No new events Objective Data Objective Data Vital Signs: Vital Signs Temp Pulse Resp BP Pulse Ox O2 Del Method O2 Flow Rate 97.4 F L 80 18 116/61 95 Room Air 2 12/10/22 11:17 12/10/22 11:17 12/10/22 11:17 12/10/22 11:17 12/10/22 11:17 12/10/22 11:17 12/09/22 07:32 Oxygen Flow Rate (L/min) 2 Oxygen Delivery Method Room Air Weight: 70.9 kg Body Mass Index (BMI) 23.3 Intake & Output: Intake and Output for Last 24 Hours 12/08/22 12/09/22 12/10/22 23:59 23:59 23:59 Intake Total 230.25 / 230.25 660 / 660 560 / 560 Output Total 1999 0 / 0 200 / 200 Balance -1769.75 / -1769.75 660 / 660 360 / 360 Lab / Micro Data Result Diagrams: 12/10/22 13:37 12/10/22 04:52 Labs: Laboratory Results - last 24 hr 12/08/22 03:35: Urine Opiates Screen NEGATIVE, Urine Methadone Screen NEGATIVE, Ur Barbiturates Screen NEGATIVE, Ur Phencyclidine Scrn NEGATIVE, Ur Amphetamines Screen NEGATIVE, MDMA (Ecstasy) Screen NEGATIVE, U Benzodiazepines Scrn NEGATIVE, Urine Cocaine Screen NEGATIVE, U Cannabinoids Screen NEGATIVE, Ur Drug Screen Comment 12/09/22 17:00: POC Glucose 274 H 12/09/22 22:33: POC Glucose 293 H 12/10/22 04:52: WBC 5.3, RBC 2.23 L, Hgb 6.8 L, Hct 21.7 L, MCV 97.3, MCH 30.5, MCHC 31.3 L, RDW Std Deviation 58.3 H, RDW Coeff of Valentina 16.6 H, Plt Count 56 L, MPV 10.8, Immature Gran % (Auto) 0.600, Neut % (Auto) 83.4 H, Lymph % (Auto) 6.4 L, [place] % (Auto) 7.9, Eos % (Auto) 1.5, Baso % (Auto) 0.2, Absolute Neuts (auto) 4.4, Absolute Lymphs (auto) 0.34 L, Nucleated RBC % 0.6, Platelet Estimate MOD DEC, Anisocytosis 1+ 12/10/22 04:52: Sodium 130 L, Potassium 4.4, Chloride 97 L, Carbon Dioxide 23.0, Anion Gap 10, BUN 53 H, Creatinine 4.36 H, Estim Creat Clear Calc 15.42, Est GFR (MDRD) Af Amer 14 L, Est GFR (MDRD) Non-Af 11 L, BUN/Creatinine Ratio 12.2, Glucose 230 H, Calcium 7.7 L, Total Bilirubin 1.30 H, AST 15, ALT 15, Alkaline Phosphatase 152 H, Total Protein 5.3 L, Albumin 1.1 L, Globulin 4.2, Albumin/Globulin Ratio 0.3 L 12/10/22 06:28: POC Glucose 238 H 12/10/22 07:30: Blood Type O POSITIVE, Antibody Screen NEGATIVE, Crossmatch See Detail 12/10/22 11:02: POC Glucose 116 H 12/10/22 13:37: Hgb 9.9 L, Hct 30.0 L Micro: Microbiology 12/07/22 22:15 Urine, Clean Catch Urine Culture - Final Klebsiella aerogenes Physical Exam Narrative General: Ill-appearing woman. Lethargic but awakens to voice. She falls asleep quickly after. HEENT: Normocephalic, atraumatic. Mucous membrane moist. PERRLA. Neck: Supple. Trachea is midline. No lymphadenopathy. Heart: Normal S1, S2. No rubs, murmurs or gallops. Lungs: Decreased breath sound at bases particularly on the right lower lobe. Abdomen: Abdomen is not distended. Normal bowel sound, soft, nontender. No guarding or rebound on palpation. Extremities: No clubbing or cyanosis. There is 1+ edema of the lower extremity. 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 The patient is admitted to the hospital on 12/08/2022 with hepatic encephalopathy. Nephrology is following for dialysis management. Acute kidney injury on chronic kidney disease stage IIIb. The patient is known to our service with dialysis dependent JULIANNE on CKD stage IIIb. She dialyzes at [facility] on MWF schedule. She was started on hemodialysis on 10/13/2022 at [facility]. There has been no evidence of renal recovery. Will maintain dialysis Saturday, Saturday, Saturday schedule for now. Dialysis today, blood pressure remains low, could not tolerate fluid removal. Hyponatremia. The patient has mild hyponatremia due to ESLD and oliguric JULIANNE. Continue hemodialysis with 137 sodium Encephalopathy. Likely due to hepatic encephalopathy with elevated ammonia level. Clinically improved .
--- NOTE | 2022-12-10 15:00 | NS ---
Tried to clarify with pt about allergy to preservatives - unable to clarify with pt d/t increased pain - states that allergies are hit or miss. Nursing talked to Hari Tyler, flower cheniller, about allergy. He wasn't able to be more specific and said that whatever she's had in the past is okay - in the past referring to previous hospitalizations. Pt to remain nonselect as not able to call dietary for meal selections.
[2022-12-10 17:05] LABS: Bedside Glucose 217 mg/dL (74-106)
[2022-12-10] MEDS: Carvedilol 6.25 MG Tablet PO (23:07)
[2022-12-10] MEDS: Ceftriaxone 1 GM/50 ML BAG IV (23:07)
[2022-12-10] MEDS: Menthol/Lanolin/Calamine/Znox 113 GM Tube 1 APPLIC TOPICAL (23:08)
[2022-12-11 00:11] LABS: Bedside Glucose 365 mg/dL (74-106)
[2022-12-11 02:44] VITALS: BP 122/58; PULSE 73; RESP 18; TEMP 36.4; O2SAT 99
[2022-12-11] MEDS: Acetaminophen 325 MG Tablet 650 MG PO (05:49)
[2022-12-11] MEDS: Insulin Lispro 100 UNIT/ML INSULN.PEN SC ×2 (06:46→10:17)
[2022-12-11 07:21] LABS: Bedside Glucose 276 mg/dL (74-106)
[2022-12-11 07:53] VITALS: O2SAT 91
[2022-12-11 09:56] VITALS: BP 117/57; PULSE 85; RESP 20; TEMP 36.6; O2SAT 92
--- NOTE | 2022-12-11 10:04 | PCM.TXEXTCAR ---
Diet Diet Order/Speech Therapy: 12/09/22 11:02 Diet: Renal - ConsCHO - Seun Cont Is pt able to select menu?: No Diet Comments: per pt office administrator, pt w/ no reactions to preservatives - can eat food here How many daily calories?: 1800 calorie Routine Orders/Code Status Code Status: Full Code Therapies Physical Therapy: Eval and Treat Occupational Therapy: Eval and Treat Problem/Diagnosis (1) Encephalopathy: Status: Acute Code(s): G93.40 - Encephalopathy, unspecified (2) UTI (urinary tract infection): Status: Acute Code(s): N39.0 - Urinary tract infection, site not specified Plan Patient is a 52-year-old lady with multiple comorbidities including end-stage renal disease on hemodialysis, autoimmune hepatitis currently on liver transplant list at [facility] who was admitted with altered mental status. Diagnosed with acute cystitis admitted to a monitored bed where patient has since been managed 1. Acute metabolic encephalopathy secondary to acute cystitis ? Admitted to monitored bed managed with appropriate antibiotic therapy 2. Acute cystitis with Klebsiella pneumonia ? Patient is currently on appropriate antibiotic therapy with ceftriaxone 3. End-stage renal disease ? Patient is on hemodialysis on Mondays, Wednesdays and Fridays ? Consult placed to nephrology for dialysis orders 4. 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 Patient apparently on a transplant list at [facility]. Patient is on rifaximin and lactulose did continue. patient's family currently requesting transfer to [facility]. Subsequent monitoring with daily complete metabolic panel ordered 5. Essential hypertension ? Blood pressure controlled on carvedilol did continue 6. Diabetes mellitus type 2 ? Patient is on scheduled long-acting insulin and short acting insulin did continue with home dose also placed on Accu-Cheks with before meals and at bedtime and sliding scale coverage 7. Hypothyroidism - Patient is on levothyroxine home dose continued 8. Anemia ? Secondary to anemia of chronic disorder. With patient hemoglobin dropping to 6.8 an order was given for patient to be transfused with 1 unit PRBC repeat CBC ordered for a.m. 9. Thrombocytopenia ? Secondary to patient chronic liver disease monitoring with daily CBC with differential 10. DVT prophylaxis ? Bilateral SCDs Time spent in the patient's overall evaluation,decision-making process, review of diagnostic data, adjustment of management, discussion with other providers, nursing nursing and ancillary staff involved in patient's care documentation, 55-minutes Allergies/Procedures Done in Hospital Allergies adhesive Allergy (Verified 11/15/22 18:47) Rash escitalopram oxalate [From Lexapro] Allergy (Verified 11/15/22 18:47) blindness Fish Containing Products Allergy (Verified 11/15/22 18:47) Other gabapentin [From Neurontin] Allergy (Verified 11/15/22 18:47) Alan Jez's Syndrome lamotrigine [From Lamictal] Allergy (Verified 11/15/22 18:47) Blindness metformin Allergy (Verified 11/15/22 18:47) PT UNSURE OF REACTION topiramate [From Topamax] Allergy (Verified 11/15/22 18:47) Other burning in the legs sour cream Adverse Reaction (Severe, Uncoded 11/02/22 12:39) Anaphylaxis Preservatives Adverse Reaction (Intermediate, Uncoded 11/02/22 12:39) passed out, lungs deflated Preservatives in various foods including packaged gladys cheese, lettuce, and seafood. Type of Care/Length of Stay Estimated LOS: Convalescent Care Less Than 30 days Type of Care Needed: Skilled Rehab Potential: Good Prognosis: Good Additional Orders/Day of Discharge Day of Discharge: 12/11/22 Dietary and Speech Recommendations Dietitian Recommendations/Changes: When medically appropriate, recommend renal, 2000 calorie controlled, consistent CHO diet w/ fluid restriction as indicated. May benefit from Nepro 120mL 4x/day w/ medpass when diet advanced. Consult RDN for enteral nutrition recommendations as indicated. Discharge Plan Admission Admit Date/Time: 12/08/22 00:32 Attending Provider: Alfredo Hassan Primary Care Provider: Danial Ring Consulting Providers: Cornel Naylor ; Mando Alfonso ; Patel Arboleda ; Omar Allred ; Erich Alexander ; Mouna Rios NP ; Esperanza Franklin ; Sunni Castro Discharge Orders/Prescriptions Prescriptions: New cefdinir 300 mg capsule 300 mg PO BID Qty: 10 0RF hydrocortisone acetate [Anusol-HC] 25 mg suppository 25 mg ID BID Qty: 24 0RF Continued Xifaxan 550 MG tablet 550 mg PO BID sucralfate [Carafate] 1 gram Tablet 1 g PO QHS pantoprazole 40 mg Tablet,Delayed Release (Dr/Ec) 40 mg PO DAILY sertraline 50 mg Tablet 75 mg PO QHS ursodiol 300 mg capsule 300 mg PO BID Label Comments: . carbamazepine 100 mg Tablet Extended Release 12 Hr 100 mg PO BID zinc 50 mg Tablet 50 mg PO DAILY Label Comments: PER PHARMACY NOT COVERED BY INSURANCE THROUGH [employer]. PHARMACY UNSURE IF SHE IS GETTING OTC carvedilol 3.125 mg tablet 6.25 mg PO BID torsemide 20 mg Tablet 80 mg PO DAILY Hold Instructions: Hold for 3 days then resume torsemide 20 mg daily lurasidone 40 mg Tablet 40 mg PO LUNCH ergocalciferol (vitamin D2) [Vitamin D2] 1,250 mcg (50,000 unit) capsule 1,250 unit PO MOTH levothyroxine 75 mcg tablet 75 mcg PO DAILY ondansetron 4 mg tablet,disintegrating 8 mg PO Q8H PRN (Reason: Nausea And Vomiting) insulin lispro [Humalog KwikPen Insulin] 100 unit/mL insulin pen 7 unit subcut ACHS Label Comments: +SLIDING SCALE UP TO 40 UNITS DAILY. lactulose 20 gram/30 mL solution 20 g PO BID Rx Instructions: titrate for 3-4 BMs per day bisacodyl 10 mg Suppository 10 mg ID DAILY PRN (Reason: Constipation) dextromethorphan HBr 10 mg/15 mL Syrup 10 mg PO Q6H PRN (Reason: Cough) darbepoetin sree in polysorbat 40 mcg/0.4 mL Syringe 40 mcg SUBCUT QWEEK insulin degludec [Tresiba FlexTouch U-100] 100 unit/mL (3 mL) Insulin Pen 10 unit SUBCUT DAILY acetaminophen 500 mg Tablet 500 mg PO Q6H PRN (Reason: Pain) ascorbic acid (vitamin C) 500 mg tablet 500 mg PO DAILY magnesium hydroxide [Milk of Magnesia] 400 mg/5 mL Suspension 2,400 mg PO DAILY PRN (Reason: Constipation) insulin glargine [Lantus Solostar U-100 Insulin] 100 unit/mL (3 mL) Insulin Pen 10 unit subcut DAILY dexamethasone 4 mg Tablet 6 mg PO DAILY 7 Days Qty: 11 0RF Referrals / Follow Up: Danial Ring MD [Primary Care Provider] - Within 2 Weeks Disposition Disposition (needs filled in before D/C Order can be placed): Longterm Facility
[2022-12-11] MEDS: Lactulose 20 GM/30 ML UDC 10 GM PO (10:08)
[2022-12-11] MEDS: Menthol/Lanolin/Calamine/Znox 113 GM Tube 1 APPLIC TOPICAL (10:08)
[2022-12-11] MEDS: Carvedilol 6.25 MG Tablet PO (10:08)
--- NOTE | 2022-12-11 10:09 | DS.PCM_ITS ---
Providers Date of Admission: 12/08/22 Date of Discharge: 12/11/22 Primary Care Physician: Dr. Danial Ring MD Consultations 12/08/22 03:02 Consult: Nephrology Routine Consulting Provider: Esperanza Franklin Reason for Consult: JULIANNE on CKD Stage 4 EMERGENT Consult: No Notified: Yes Date Notified: 12/08/22 Time Notified: 00:40 Method of Notification: phone Comments:: called by Dr. Castro in front of this RN. 12/08/22 10:41 Consult: Sap Bpc Developer / Pulmonary Medicine Routine Consulting Provider: [facility] Reason for Consult: Altered mental status EMERGENT Consult: No Notified: Yes Date Notified: 12/08/22 Time Notified: 10:41 Method of Notification: Cortext 12/11/22 07:34 Consult: Gastroenterology Routine Consulting Provider: Roland Gastroenterkaela Reason for Consult: positive occult stool EMERGENT Consult: No Notified: Yes Date Notified: 12/11/22 Time Notified: 08:00 Method of Notification: Text Reason For Visit: UTI Diagnosis Discharge Diagnosis (1) Encephalopathy: Status: Acute Code(s): G93.40 - Encephalopathy, unspecified (2) UTI (urinary tract infection): Status: Acute Code(s): N39.0 - Urinary tract infection, site not specified Plan Patient is a 52-year-old lady with multiple comorbidities including end-stage renal disease on hemodialysis, autoimmune hepatitis currently on liver transplant list at [facility] who was admitted with altered mental status. Diagnosed with acute cystitis admitted to a monitored bed where patient has since been managed 1. Acute metabolic encephalopathy secondary to acute cystitis ? Admitted to monitored bed managed with appropriate antibiotic therapy 2. Acute cystitis with Klebsiella pneumonia ? Patient is currently on appropriate antibiotic therapy with ceftriaxone 3. End-stage renal disease ? Patient is on hemodialysis on Mondays, Wednesdays and Fridays ? Consult placed to nephrology for dialysis orders 4. 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 Patient apparently on a transplant list at [facility]. Patient is on rifaximin and lactulose did continue. patient's family currently requesting transfer to [facility]. Subsequent monitoring with daily complete metabolic panel ordered ? Case was discussed with patient and the sister plan is for patient to follow- up at the [facility] for subsequent care. 5. Essential hypertension ? Blood pressure controlled on carvedilol did continue 6. Diabetes mellitus type 2 ? Patient is on scheduled long-acting insulin and short acting insulin did continue with home dose also placed on Accu-Cheks with before meals and at bedtime and sliding scale coverage 7. Hypothyroidism - Patient is on levothyroxine home dose continued 8. Anemia ? Secondary to anemia of chronic disorder. With patient hemoglobin dropping to 6.8 an order was given for patient to be transfused with 1 unit PRBC repeat CBC ordered for a.m. 9. Thrombocytopenia ? Secondary to patient chronic liver disease monitoring with daily CBC with differential 10. DVT prophylaxis ? Bilateral SCDs Time spent in the patient's overall evaluation,decision-making process, review of diagnostic data, adjustment of management, discussion with other providers, nursing nursing and ancillary staff involved in patient's care documentation,35 -minutes Medications at Discharge Home Medications rifaximin 550 mg tablet (Xifaxan) 550 mg PO BID IBS 11/04/17 pantoprazole 40 mg tablet,delayed release 40 mg PO DAILY GERD 03/20/21 sertraline 50 mg tablet 75 mg PO QHS DEPRESSION 03/20/21 sucralfate 1 gram tablet (Carafate) 1 g PO QHS STOMACH 03/20/21 ursodiol 300 mg capsule 300 mg PO BID LIVER 04/25/21 carbamazepine 100 mg tablet,extended release,12 hr 100 mg PO BID bipolar 04/29/21 zinc 50 mg tablet 50 mg PO DAILY SUPPLEMENT 09/18/21 carvedilol 3.125 mg tablet 6.25 mg PO BID HEART 03/23/22 lurasidone 40 mg tablet 40 mg PO LUNCH MOOD 04/16/22 torsemide 20 mg tablet 80 mg PO DAILY diuretic 04/16/22 ergocalciferol (vitamin D2) 1,250 mcg (50,000 unit) capsule (Vitamin D2) 1,250 unit PO MOTH SUPPLMENT 05/14/22 insulin lispro 100 unit/mL subcutaneous pen (Humalog KwikPen (U-100) Insulin) 7 unit subcut ACHS diabetes 05/14/22 levothyroxine 75 mcg tablet 75 mcg PO DAILY THYROID 05/14/22 ondansetron 4 mg disintegrating tablet 8 mg PO Q8H PRN Nausea And Vomiting lactulose 20 gram/30 mL oral solution 20 g PO BID liver failure 06/11/22 acetaminophen 500 mg tablet 500 mg PO Q6H PRN Pain 12/17/22 ascorbic acid (vitamin C) 500 mg tablet 500 mg PO DAILY supplement 11/03/22 bisacodyl 10 mg rectal suppository 10 mg CA DAILY PRN Constipation 11/03/22 darbepoetin sree in polysorbat 40 mcg/0.4 mL in polysorbate injection syringe 40 mcg subcut QWEEK bone marrow 11/03/22 dextromethorphan HBr 10 mg/15 mL oral syrup 10 mg PO Q6H PRN Cough 11/03/22 insulin degludec 100 unit/mL (3 mL) subcutaneous pen (Tresiba FlexTouch U-100 insulin) 10 unit subcut DAILY diabetes 11/03/22 insulin glargine 100 unit/mL (3 mL) subcutaneous pen (Lantus Solostar U-100 Ins ulin) 10 unit subcut DAILY DM2 11/03/22 magnesium hydroxide 400 mg/5 mL oral suspension (Milk of Magnesia) 2,400 mg PO DAILY PRN Constipation 11/03/22 dexamethasone 4 mg tablet 6 mg PO DAILY 7 days #11 tabs 11/07/22 cefdinir 300 mg capsule 300 mg PO BID #10 caps 12/11/22 hydrocortisone acetate 25 mg rectal suppository (Anusol-HC) 25 mg CA BID #24 ea 12/11/22 Hospital Course Summary of Care Provided Minutes Spent on Discharge: 35 Physical Exam Narrative GENERAL: Lethargic but arousable HEENT: Atraumatic; normocephalic EYES; Anicteric, Normal Conjunctiva NECK; supple, normal thyroid, RESPIRATORY: Diminished to auscultation CARDIOVASCULAR: Regular S1 S2, GI: soft, normoactive bowel sounds, : No Renal angle tenderness; EXTREMITIES: No edema, no clubbing, MUSCULOSKELETAL: no muscle wasting NEURO: Awake; no lateralizing signs. SKIN: No Rash PSYCH; Flat affect Weight / BMI Weight Weight: 72.4 kg Body Mass Index (BMI) 23.3 ABG / Lab / Microbiology Data Result Diagrams: 12/10/22 13:37 12/10/22 04:52 Laboratory: Laboratory Results - last 24 hr 12/10/22 07:30: Blood Type O POSITIVE, Antibody Screen NEGATIVE, Crossmatch See Detail 12/10/22 11:02: POC Glucose 116 H 01/23/23 13:37: Hgb 9.9 L, Hct 30.0 L 12/10/22 16:23: POC Glucose 217 H 12/10/22 23:01: POC Glucose 365 H 12/11/22 06:44: POC Glucose 276 H Microbiology: Microbiology 12/11/22 06:17 Stool Stool Occult Blood (GAURAV) - Final Occult Blood Positive 12/07/22 22:15 Urine, Clean Catch Urine Culture - Final Klebsiella aerogenes D/C Instructions Discharge Diet: 1800 Calorie Control Diet and Renal Diet Discharge Activity: Return to Normal Activity Call your doctor if you observe: Fever of 101 or Higher, Shortness of breath, Fainting spells and Chest pain Meaningful Use Info Meaningful Use Diagnoses (Choose all that apply): None applicable Discharge Plan Admission Admit Date/Time: 12/08/22 00:32 Attending Provider: Alfredo Hassan Primary Care Provider: Danial Ring Consulting Providers: Cornel Naylor ; Mando Alfonso ; Patel Arboleda ; Omar Allred ; Erich Alexander ; Mouna Rios NP ; Esperanza Franklin ; Sunni Castro Discharge Orders/Prescriptions Prescriptions: New cefdinir 300 mg capsule 300 mg PO BID Qty: 10 0RF hydrocortisone acetate [Anusol-HC] 25 mg suppository 25 mg CA BID Qty: 24 0RF Continued Xifaxan 550 MG tablet 550 mg PO BID sucralfate [Carafate] 1 gram Tablet 1 g PO QHS pantoprazole 40 mg Tablet,Delayed Release (Dr/Ec) 40 mg PO DAILY sertraline 50 mg Tablet 75 mg PO QHS ursodiol 300 mg capsule 300 mg PO BID Label Comments: . carbamazepine 100 mg Tablet Extended Release 12 Hr 100 mg PO BID zinc 50 mg Tablet 50 mg PO DAILY Label Comments: PER PHARMACY NOT COVERED BY INSURANCE THROUGH [employer]. PHARMACY UNSURE IF SHE IS GETTING OTC carvedilol 3.125 mg tablet 6.25 mg PO BID torsemide 20 mg Tablet 80 mg PO DAILY Hold Instructions: Hold for 3 days then resume torsemide 20 mg daily lurasidone 40 mg Tablet 40 mg PO LUNCH ergocalciferol (vitamin D2) [Vitamin D2] 1,250 mcg (50,000 unit) capsule 1,250 unit PO MOTH levothyroxine 75 mcg tablet 75 mcg PO DAILY ondansetron 4 mg tablet,disintegrating 8 mg PO Q8H PRN (Reason: Nausea And Vomiting) insulin lispro [Humalog KwikPen Insulin] 100 unit/mL insulin pen 7 unit subcut ACHS Label Comments: +SLIDING SCALE UP TO 40 UNITS DAILY. lactulose 20 gram/30 mL solution 20 g PO BID Rx Instructions: titrate for 3-4 BMs per day bisacodyl 10 mg Suppository 10 mg CA DAILY PRN (Reason: Constipation) dextromethorphan HBr 10 mg/15 mL Syrup 10 mg PO Q6H PRN (Reason: Cough) darbepoetin sree in polysorbat 40 mcg/0.4 mL Syringe 40 mcg SUBCUT QWEEK insulin degludec [Tresiba FlexTouch U-100] 100 unit/mL (3 mL) Insulin Pen 10 unit SUBCUT DAILY acetaminophen 500 mg Tablet 500 mg PO Q6H PRN (Reason: Pain) ascorbic acid (vitamin C) 500 mg tablet 500 mg PO DAILY magnesium hydroxide [Milk of Magnesia] 400 mg/5 mL Suspension 2,400 mg PO DAILY PRN (Reason: Constipation) insulin glargine [Lantus Solostar U-100 Insulin] 100 unit/mL (3 mL) Insulin Pen 10 unit subcut DAILY dexamethasone 4 mg Tablet 6 mg PO DAILY 7 Days Qty: 11 0RF Referrals / Follow Up: Danial Ring MD [Primary Care Provider] - Within 2 Weeks Disposition Disposition (needs filled in before D/C Order can be placed): [facility] Charges/Coding Visit Charges Inpatient E&M: 71760 Disch Hosp >30min
[2022-12-11] MEDS: Insulin Glargine-YFGN 100 UNIT/ML Pen 10 UNIT SC (10:16)
--- NOTE | 2022-12-11 10:24 | CASEMGMT ---
MARIANA notified Renita at [facility] via [facility] that patient is ready for discharge today. Cora Perales CUSTOMS AND BORDER PROTECTION INSPECTOR JAYLENE
--- NOTE | 2022-12-11 10:36 | PN.RENAL_ITS ---
Subjective Subjective No new events. Moaning constantly Objective Data Objective Data Vital Signs: Vital Signs Temp Pulse Resp BP Pulse Ox O2 Del Method O2 Flow Rate 97.8 F 85 20 H 117/57 L 92 Nasal Cannula 2 12/11/22 09:56 12/11/22 09:56 12/11/22 09:56 12/11/22 09:56 12/11/22 09:56 12/11/22 09:56 12/11/22 10:07 Oxygen Flow Rate (L/min) 2 Oxygen Delivery Method Nasal Cannula Weight: 72.4 kg Body Mass Index (BMI) 23.3 Intake & Output: Intake and Output for Last 24 Hours 12/09/22 12/10/22 12/11/22 23:59 23:59 23:59 Intake Total 660 / 660 970 / 970 110 / 110 Output Total 0 / 0 200 / 200 Balance 660 / 660 770 / 770 110 / 110 Lab / Micro Data Result Diagrams: 12/10/22 13:37 12/10/22 04:52 Labs: Laboratory Results - last 24 hr 12/10/22 07:30: Crossmatch See Detail 12/10/22 11:02: POC Glucose 116 H 12/10/22 13:37: Hgb 9.9 L, Hct 30.0 L 12/10/22 16:23: POC Glucose 217 H 12/10/22 23:01: POC Glucose 365 H 12/11/22 06:44: POC Glucose 276 H Micro: Microbiology 12/11/22 06:17 Stool Stool Occult Blood (GAURAV) - Final Occult Blood Positive 12/07/22 22:15 Urine, Clean Catch Urine Culture - Final Klebsiella aerogenes Physical Exam Narrative General: Ill-appearing woman. Lethargic but awakens to voice HEENT: Normocephalic, atraumatic. Mucous membrane moist. PERRLA. Neck: Supple. Trachea is midline. No lymphadenopathy. Heart: Normal S1, S2. No rubs, murmurs or gallops. Lungs: Decreased breath sound at bases particularly on the right lower lobe. Abdomen: Abdomen is not distended. Normal bowel sound, soft, nontender. No guarding or rebound on palpation. Extremities: No clubbing or cyanosis. There is 1+ edema of the lower extremity. 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 The patient is admitted to the hospital on 12/08/2022 with hepatic encephalopathy. Nephrology is following for dialysis management. Acute kidney injury on chronic kidney disease stage IIIb. The patient is known to our service with dialysis dependent JULIANNE on CKD stage IIIb. She dialyzes at [facility] on MWF schedule. She was started on hemodialysis on 10/13/2022 at [facility]. There has been no evidence of renal recovery. Will maintain dialysis Saturday, Saturday, Saturday schedule for now. Hyponatremia. The patient has mild hyponatremia due to ESLD and oliguric JULIANNE. Continue hemodialysis with 137 sodium Encephalopathy. Likely due to hepatic encephalopathy with elevated ammonia level. Clinically improved .
[2022-12-11 10:41] LABS: Bedside Glucose 265 mg/dL (74-106)
--- NOTE | 2022-12-11 11:12 | CASEMGMT ---
Addendum entered by Cora Perales 12/11/22 11:29: SW notified RN of pharmacy picking tech time. Cora MARIEE Original Note: Patient is ready for discharge back to [facility]. SW sent orders via [facility]. MARIANA called [facility] and arranged for patient to get picked up at via wheelchair van. SW notified Renita at [facility], patient, ELEMENTARY INSTRUCTIONAL COACH, service secretary, and patient's sister. MARIANA will notify RN. MARIANA will also make sure to send COVID test to [facility] once done. Plan: d/c back to [facility] under intermediate level of care. [facility] will transport via [facility]c van. Cora MARIEE
--- NOTE | 2022-12-11 12:36 | NURSING ---
Report given to Wendi at [facility]
== END 2022-12-11 13:10 | disposition skilled nursing facility (03) | DRG 689 ==
LOC: ED 12-08 00:24 → MS3 12-08 01:28 → ICU 12-08 18:32 → PCU 12-09 10:55
PROVIDERS: Internal Medicine; Internal Medicine Critical Care Medicine; Admitting Provider Hospitalist; Emergency Provider Emergency Medicine; PCP Family Medicine; Visit Provider Internal Medicine
DX: N30.00 Acute cystitis without hematuria (principal); G93.41 Metabolic encephalopathy; N18.6 End stage renal disease; I12.0 Hypertensive chronic kidney disease with stage 5 chronic kidney disease or end stage renal disease; E87.3 Alkalosis; E87.1 Hypo-osmolality and hyponatremia; N17.9 Acute kidney failure, unspecified; J90 Pleural effusion, not elsewhere classified; F25.1 Schizoaffective disorder, depressive type; D63.1 Anemia in chronic kidney disease; K76.82 Hepatic encephalopathy; D69.59 Other secondary thrombocytopenia; K74.60 Unspecified cirrhosis of liver; E11.42 Type 2 diabetes mellitus with diabetic polyneuropathy; Z99.2 Dependence on renal dialysis; E11.22 Type 2 diabetes mellitus with diabetic chronic kidney disease; F31.9 Bipolar disorder, unspecified; Z79.4 Long term (current) use of insulin; K75.4 Autoimmune hepatitis; E03.9 Hypothyroidism, unspecified; I25.2 Old myocardial infarction; G89.29 Other chronic pain; B96.1 Klebsiella pneumoniae [K. pneumoniae] as the cause of diseases classified elsewhere; Z79.899 Other long term (current) drug therapy; Z86.16 Personal history of COVID-19
CPT/HCPCS: 36415; 36600; 70450; 71045; 76705; 80048; 80053; 80076; 80307; 81001; 82140; 82274; 82803; 82962; 84443; 84484; 85014; 85018; 85025; 86850; 86900; 86901; 86920; 86922; 87077; 87086; 87088; 87186; 87426; 90937; 93005; 95819; 97162; 97166; 97530; 99285; J7030; J7040; J7050; P9016; A4216; G0257; J2405

== ENCOUNTER 2022-12-14 17:37 | Emergency (ER) | payer MEDICARE, MEDICAID, SELFPAY ==
[2022-12-14 17:40] VITALS: BP 113/53; PULSE 82; RESP 14; TEMP 36.1; O2SAT 99; BMI 25.8
--- NOTE | 2022-12-14 18:15 | EKG12_ITS ---
Test Reason : AMS Blood Pressure : / mmHG Vent. Rate : 083 BPM Atrial Rate : 083 BPM P-R Int : 142 ms QRS Dur : 116 ms QT Int : 400 ms P-R-T Axes : 023 -33 088 degrees QTc Int : 470 ms Normal sinus rhythm Left axis deviation Incomplete left bundle branch block Minimal voltage criteria for LVH, may be normal variant ( Claudio product ) Abnormal ECG Confirmed by DEDE ZAMBRANO, ROSA ([id number]), assignment editor NORA MENDES ([id number]) on 12/17/2022 9:23:25 AM Referred By: Confirmed By:ROSA AGUAYO MD
--- NOTE | 2022-12-14 18:15 | EX.ED.DYSGE1 ---
HPI History of Present Illness Chief Complaint: Mental Status Change Informant: patient and EMS Narrative Narrative: Sent in from custodial reported concerns altered mental status and slow response. Per EMS she is normal. Currently alert and oriented x3. She denies cough denies vomiting diarrhea. States was admitted in the hospital few weeks ago unclear why. She is on dialysis Saturday states they canceled today. She still makes urine. She has right chest Vas-Cath. Denies fevers. Denies urinary symptoms. In addition distended abdomen that is chronic report cirrhosis history without any alcohol history.. Records noted she is on lactulose and rifaximin. After work-up reviewing records she was discharged 3 days ago after 3-day stay. She has encephalopathy secondary to Klebsiella cystitis. She is currently on cefdinir from discharge would have 2 more days left. She has autoimmune hepatitis causing cirrhosis. She had continued dialysis during hospitalization. [facility] Medical History Acute on chronic anemia Acute on chronic renal insufficiency Anemia Autoimmune hepatitis Bacteremia due to methicillin resistant Staphylococcus epidermidis Bipolar disorder CHI (closed head injury) Chronic pain Chronic renal insufficiency, stage III (moderate) Cirrhosis of liver Debility Depression Diabetes mellitus, type 2 Encephalopathy acute Essential hypertension Reilly's thyroiditis Hepatic encephalopathy Hepatitis Hypothyroidism Kidney disease MRSA bacteremia Myocardial infarct Non-smoker On home oxygen therapy Pancreatitis Pancytopenia Peripheral neuropathy Right lower lobe pneumonia Schizoaffective disorder Severe sepsis Splenomegaly Stage 3b chronic kidney disease (CKD) Weakness Home Medications rifaximin 550 mg tablet (Xifaxan) 550 mg PO BID IBS 11/04/17 [History Last Taken 06/14/22] sertraline 50 mg tablet 75 mg PO QHS DEPRESSION 03/20/21 [History Last Taken 06/14/22] sucralfate 1 gram tablet (Carafate) 1 g PO QHS STOMACH 03/20/21 [History Last Taken 06/14/22] ursodiol 300 mg capsule 300 mg PO BID LIVER 04/25/21 [History Last Taken 06/14/22] carbamazepine 100 mg tablet,extended release,12 hr 100 mg PO BID bipolar 04/29/21 [History Last Taken 06/14/22] zinc 50 mg tablet 50 mg PO DAILY SUPPLEMENT 09/18/21 [History Last Taken 06/14/22] carvedilol 3.125 mg tablet 6.25 mg PO BID HEART 03/23/22 [History Last Taken 06/14/22] lurasidone 40 mg tablet 40 mg PO LUNCH MOOD 04/16/22 [History Last Taken 06/14/22] torsemide 20 mg tablet 80 mg PO DAILY diuretic 04/16/22 [History Last Taken 06/14/22] ergocalciferol (vitamin D2) 1,250 mcg (50,000 unit) capsule (Vitamin D2) 1,250 unit PO MOTH supplement 05/14/22 [History Last Taken 06/14/22] insulin lispro 100 unit/mL subcutaneous pen (Humalog KwikPen (U-100) Insulin) 7 unit subcut ACHS diabetes 05/14/22 [History Last Taken 06/14/22] levothyroxine 75 mcg tablet 75 mcg PO DAILY THYROID 05/14/22 [History Last Taken 06/14/22] ondansetron 4 mg disintegrating tablet 8 mg PO Q8H PRN Nausea And Vomiting 05/14/22 [History Last Taken 06/13/22] lactulose 20 gram/30 mL oral solution 20 g PO BID liver failure 06/11/22 [History Last Taken 06/14/22] ascorbic acid (vitamin C) 500 mg tablet 500 mg PO DAILY supplement 11/03/22 [History Last Taken Unknown] bisacodyl 10 mg rectal suppository 10 mg MI DAILY PRN Constipation 11/03/22 [History Last Taken Unknown] darbepoetin sree in polysorbat 40 mcg/0.4 mL in polysorbate injection syringe 40 mcg subcut QWEEK bone marrow 11/03/22 [History Last Taken Unknown] dextromethorphan HBr 10 mg/15 mL oral syrup 10 mg PO Q6H PRN Cough 11/03/22 [History Last Taken Unknown] insulin degludec 100 unit/mL (3 mL) subcutaneous pen (Tresiba FlexTouch U-100 insulin) 10 unit subcut DAILY diabetes 11/03/22 [History Last Taken Unknown] insulin glargine 100 unit/mL (3 mL) subcutaneous pen (Lantus Solostar U-100 Insulin) 10 unit subcut DAILY DM2 11/03/22 [History Last Taken Unknown] magnesium hydroxide 400 mg/5 mL oral suspension (Milk of Magnesia) 2,400 mg PO DAILY PRN Constipation 11/03/22 [History Last Taken Unknown] dexamethasone 4 mg tablet 6 mg PO DAILY 7 days #11 tabs 11/07/22 [Rx Last Taken Unknown] cefdinir 300 mg capsule 300 mg PO BID #10 caps 12/11/22 [Rx Last Taken Unknown] hydrocortisone acetate 25 mg rectal suppository (Anusol-HC) 25 mg MI BID #24 ea 12/11/22 [Rx Last Taken Unknown] omeprazole 20 mg capsule,delayed release 20 mg PO DAILY 12/14/22 [History Last Taken Unknown] Allergy/AdvReac Type Severity Reaction Status Date / Time adhesive Allergy Rash Verified 12/14/22 17:39 escitalopram oxalate Allergy blindness Verified 12/14/22 17:39 [From Lexapro] Fish Containing Products Allergy Other Verified 12/14/22 17:39 gabapentin [From Neurontin] Allergy Alan Verified 12/14/22 17:39 Jez's Syndrome lamotrigine [From Lamictal] Allergy Blindness Verified 12/14/22 17:39 metformin Allergy PT UNSURE Verified 12/14/22 17:39 OF REACTION topiramate [From Topamax] Allergy Other Verified 12/14/22 17:39 sour cream AdvReac Severe Anaphylaxis Uncoded 12/14/22 17:39 Preservatives AdvReac Intermediate passed Uncoded 12/14/22 17:39 out, lungs deflated Family History Father CVA (cerebral vascular accident) Myocardial infarction Heart disease CAD (coronary artery disease) Grandmother CHF (congestive heart failure) Sister Hypertension Mother Heart disease Surgical History H/O: hysterectomy History of abdominal paracentesis (10/2019) History of appendectomy History of cholecystectomy S/P TIPS (transjugular intrahepatic portosystemic shunt) Social History household members: significant other housing: house Smoking Status: Never smoker alcohol intake: never details: Unknown substance use type: does not use ROS ROS ED Constitutional Constitutional ED: Denies chills, fever(s) or sweats Eyes Eyes: Denies change in vision ENT ENT ED: Denies dysphagia or sore throat Cardiovascular Cardiovascular: Denies chest pain, leg edema, palpitations or racing heartbeat Respiratory/Chest Respiratory/Chest: Denies cough, dyspnea or dyspnea on exertion Gastrointestinal Gastrointestinal: Denies abdominal pain, diarrhea, nausea or vomiting Genitourinary Genitourinary ED: Denies dysuria, hematuria or urinary frequency Musculoskeletal Musculoskeletal: Denies back pain, extremity pain or neck pain Integumentary Denies rash or wounds Neurologic Neurologic: Denies headache(s), paresthesias or weakness EXAM Physical Exam Const Vital Signs: 12/14/22 17:40 12/14/22 21:39 12/14/22 21:38 Temperature 97.0 F L Temperature Source Temporal Pulse Rate 82 83 Respiratory Rate 14 18 18 Blood Pressure 113/53 L 125/73 H Blood Pressure Mean 73 Pulse Ox 99 98 98 Oxygen Delivery Method Room Air Room Air Positive well nourished and well developed General Appearance ED: well developed and NAD HEENT Reports moist mucous membranes normocephalic and atraumatic Eyes PERRL, EOMs intact bilaterally and conjunctivae normal General Eye ED: Yes normal appearance of both eyes Neck no lymphadenopathy and supple General: Negative for tenderness Chest Wall Chest Narrative: Right chest Vas-Cath clean, dry, intact with dressing. Chest: Negative for tenderness Resp normal respiratory effort and normal air movement Effort and Inspection: symmetric chest movement; Negative for respiratory distress Cardio regular rate, regular rhythm and no murmurs Peripheral Pulses: pulses 2+ throughout GI non-tender GI Narrative: Distended nontender. Palpation: Negative for guarding or rebound tenderness present Back/Spine no CVA tenderness and no thoracic nor lumbar tenderness Extremity normal to inspection General Extremety ED: Negative for edema or tenderness General Extremity: Negative for edema Neuro oriented x3, CN's II-XII intact bilaterally and no sensory deficits noted Sensorium / Orientation: awake and alert Skin no rashes or lesions noted and no wounds MDM MDM MDM Narrative Medical decision making narrative: Patient presenting reported concern for altered mental status. Dialysis patient well-known cirrhosis. Differential would be hepatic encephalopathy UTI, denies any cough or pneumonia. Also consider electrolyte abnormalities with her dialysis history. EKG did not note any signs of hyperkalemia. Laboratory studies work-up initiated. Her ammonia level was negative. Creatinine 4.8 BUN 42 her potassium was 3.8. Hemoglobin 10.3 white count of 10. Urine did note 500 leukocytes and small amount white cells. Urine culture sent. Reviewing her record she was discharged 3 days ago, as she was in for 3 days for UTI related encephalopathy positive for Klebsiella. She had additional 5-day course of Omnicef she is currently should have 2 more days left. Therefore she should be adequately treated at this time with continued 2 more days of treatment. She is a noted 3. No indication for admission at this time. She will be [facility] back to [facility]. Lab Data Attestation: I reviewed the patient's lab results. Labs: Laboratory Results - last 24 hr 12/14/22 12/14/22 12/14/22 19:15 19:15 19:15 WBC 10.0 RBC 3.31 L Hgb 10.3 L Hct 33.1 L MCV 100.0 H MCH 31.1 MCHC 31.1 L RDW Std Deviation 62.7 H RDW Coeff of Valentina 19.7 H Plt Count 47 L* MPV 10.1 Immature Gran % (Auto) 1.500 H Neut % (Auto) 87.3 H Lymph % (Auto) 5.3 L Isabela % (Auto) 5.4 Eos % (Auto) 0.4 Baso % (Auto) 0.1 Absolute Neuts (auto) 8.7 H Absolute Lymphs (auto) 0.53 L Nucleated RBC % 0 Differential Comment SCANNED Diff Path Review May foll Platelet Estimate MKD DEC Sodium 134 L Potassium 3.8 Chloride 98 Carbon Dioxide 24.0 Anion Gap 12 BUN 42 H Creatinine 4.80 H Estim Creat Clear Calc 14.00 Est GFR (MDRD) Af Amer 12 L Est GFR (MDRD) Non-Af 10 L BUN/Creatinine Ratio 8.8 L Glucose 281 H Calcium 8.0 L Total Bilirubin 1.90 H AST 24 ALT 26 Alkaline Phosphatase 254 H Ammonia < 10.0 L Total Protein 6.7 Albumin 1.6 L Globulin 5.1 H Albumin/Globulin Ratio 0.3 L Urine Color Urine Clarity Urine pH Ur Specific [place] Urine Protein Urine Glucose (UA) Urine Ketones Urine Occult Blood Urine Nitrite Urine Bilirubin Urine Urobilinogen Ur Leukocyte Esterase Urine RBC Urine WBC Ur Squamous Epith Cells Urine Bacteria Urine Mucus Urine Yeast 12/14/22 19:47 WBC RBC Hgb Hct MCV MCH MCHC RDW Std Deviation RDW Coeff of Valentina Plt Count MPV Immature Gran % (Auto) Neut % (Auto) Lymph % (Auto) Isabela % (Auto) Eos % (Auto) Baso % (Auto) Absolute Neuts (auto) Absolute Lymphs (auto) Nucleated RBC % Differential Comment Diff Path Review Platelet Estimate Sodium Potassium Chloride Carbon Dioxide Anion Gap BUN Creatinine Estim Creat Clear Calc Est GFR (MDRD) Af Amer Est GFR (MDRD) Non-Af BUN/Creatinine Ratio Glucose Calcium Total Bilirubin AST ALT Alkaline Phosphatase Ammonia Total Protein Albumin Globulin Albumin/Globulin Ratio Urine Color Mary Urine Clarity Sl. Cloudy Urine pH 5.0 Ur Specific [place] 1.020 Urine Protein 30 H Urine Glucose (UA) Normal Urine Ketones 15 H Urine Occult Blood 150 H Urine Nitrite Negative Urine Bilirubin 3 H Urine Urobilinogen 1 H Ur Leukocyte Esterase 500 H Urine RBC 0-5 SEEN Urine WBC 5-10 SEEN Ur Squamous Epith Cells 0-5 SEEN Urine Bacteria 0 SEEN Urine Mucus 0 SEEN Urine Yeast 2+ EKG Initial EKG: Attestation: I personally reviewed and interpreted this EKG as follows: Comments: Sinus rate of 83, no ST or T wave changes. No signs of hyperkalemia. Discharge Plan Triage Chief Complaint: Mental Status Change ED Provider: Puma Quiroz Dx/Rx/DC Orders Clinical Impression: ESRD on hemodialysis, UTI (urinary tract infection), Cirrhosis of liver Instructions: Urinary Tract Infections in Women, ED Cirrhosis Prescriptions: No Action Xifaxan 550 MG tablet 550 mg PO BID sucralfate [Carafate] 1 gram Tablet 1 g PO QHS sertraline 50 mg Tablet 75 mg PO QHS ursodiol 300 mg capsule 300 mg PO BID Label Comments: . carbamazepine 100 mg Tablet Extended Release 12 Hr 100 mg PO BID zinc 50 mg Tablet 50 mg PO DAILY Label Comments: PER PHARMACY NOT COVERED BY INSURANCE THROUGH [employer]. PHARMACY UNSURE IF SHE IS GETTING OTC carvedilol 3.125 mg tablet 6.25 mg PO BID torsemide 20 mg Tablet 80 mg PO DAILY Hold Instructions: Hold for 3 days then resume torsemide 20 mg daily lurasidone 40 mg Tablet 40 mg PO LUNCH ergocalciferol (vitamin D2) [Vitamin D2] 1,250 mcg (50,000 unit) capsule 1,250 unit PO MOTH levothyroxine 75 mcg tablet 75 mcg PO DAILY ondansetron 4 mg tablet,disintegrating 8 mg PO Q8H PRN (Reason: Nausea And Vomiting) insulin lispro [Humalog KwikPen Insulin] 100 unit/mL insulin pen 7 unit subcut ACHS Label Comments: +SLIDING SCALE UP TO 40 UNITS DAILY. lactulose 20 gram/30 mL solution 20 g PO BID Rx Instructions: titrate for 3-4 BMs per day bisacodyl 10 mg Suppository 10 mg MI DAILY PRN (Reason: Constipation) dextromethorphan HBr 10 mg/15 mL Syrup 10 mg PO Q6H PRN (Reason: Cough) darbepoetin sree in polysorbat 40 mcg/0.4 mL Syringe 40 mcg SUBCUT QWEEK insulin degludec [Tresiba FlexTouch U-100] 100 unit/mL (3 mL) Insulin Pen 10 unit SUBCUT DAILY ascorbic acid (vitamin C) 500 mg tablet 500 mg PO DAILY magnesium hydroxide [Milk of Magnesia] 400 mg/5 mL Suspension 2,400 mg PO DAILY PRN (Reason: Constipation) insulin glargine [Lantus Solostar U-100 Insulin] 100 unit/mL (3 mL) Insulin Pen 10 unit subcut DAILY dexamethasone 4 mg Tablet 6 mg PO DAILY 7 Days Qty: 11 0RF cefdinir 300 mg capsule 300 mg PO BID Qty: 10 0RF Rx Instructions: for 4 days, ending on 12/16/22 hydrocortisone acetate [Anusol-HC] 25 mg suppository 25 mg MI BID Qty: 24 0RF omeprazole 20 mg Capsule,Delayed Release(Dr/Ec) 20 mg PO DAILY Primary Care Provider: Danial Ring Referrals: Danial Ring MD [Primary Care Provider] - 2 Days Activity Restrictions/Additional Instructions: Chronic kidney disease stable potassium. Negative ammonia levels. Urine with slight infection culture sent however currently being treated for Klebsiella UTI finished antibiotic as prescribed. Disposition Disposition: Home, Self Care
--- NOTE | 2022-12-14 18:57 | ED.RN ---
THIS RN SPOKE WITH MARYAM SHEPHERD PER PT REQUEST. SHE WAS UNAWARE OF HER BEING SENT HER. SISTER GIVEN UPDATE ON PLAN OF CARE AND IS AGREEABLE. SHE WOULD LIKE CONTACTED WITH FURTHER UPDATES. THIS RN TRIED TO CONTACT [facility] BUT PHONE CALL WENT STRAIGHT TO [employer]
[2022-12-14 19:23] LABS: Absolute Lymphocyte Count 0.53 X10^3/uL (0.83-4.51); Absolute Neutrophil Count 8.7 X10^3/uL (2.0-7.7); Basophil# 0.01 X10^3/uL; Basophil% 0.1 % (0-1); Eosinophil# 0.04 X10^3/uL; Eosinophils% 0.4 % (0-5); Hematocrit 33.1 % (37-47); Hemoglobin 10.3 g/dL (12.0-15.0); Lymphocyte # 0.53 X10^3/ul (0.83-4.51); Lymphocyte % 5.3 % (19-41); Mean Corp Hgb Conc 31.1 g/dL (32-36); Mean Corpuscular Hgb 31.1 pg (27.0-32.0); Mean Platelet Vol. 10.1 fl (6.2-12.0); Monocyte# 0.54 X10^3/uL; Monocyte% 5.4 % (0-10); NRBC Flagged by Analyzer 0 % (0-5); Neutrophil # 8.73 X10^3/uL (2.7-7.7); Neutrophil % 87.3 % (47-70); POSITIVE COUNT YES; POSITIVE DIFFERENTIAL YES; RBC Distribution Width CV 19.7 % (11.6-14.6); RBC Distribution Width SD 62.7 fl (35.1-43.9); Red Blood Count 3.31 M/mm3 (4.2-5.4)
[2022-12-14 19:27] LABS: Platelet Count 47 K/mm3 (150-450)
[2022-12-14 19:28] LABS: Differential Indicated SCAN CRITERIA MET
[2022-12-14 19:45] LABS: ALB/GLOB Ratio 0.3 RATIO (0.9-2.4); AST(SGOT) 24 U/L (15-37); Alanine Aminotransfer ALT/SGPT 26 U/L (13-56); Albumin, Serum 1.6 g/dL (3.2-5.0); Alkaline Phosphatase 254 U/L (45-117); Anion Gap 12 (5-15); BUN 42 mg/dL (7-18); BUN/Creat Ratio 8.8 RATIO (10-20); Chloride 98 mmol/L (98-107); EST Glomerular Filtration Rate 10 mL/min (>60); Est Glom Filt Rate - Afr Amer 12 mL/min (>60); Globulin 5.1 g/dL (2.2-4.2); Glucose 281 mg/dL (74-106); Potassium 3.8 mmol/L (3.5-5.1); Protein, Total 6.7 g/dL (6.4-8.2); Sodium Level 134 mmol/L (136-145)
[2022-12-14 19:48] LABS: Ammonia < 10.0 umol/L (11-32); Differential Comment SCANNED; Platelet Estimate MKD DEC (ADEQ)
[2022-12-14 19:51] LABS: Bacteria 0 SEEN /hpf (None Seen); Mucous, Urine 0 SEEN /hpf (<or=2+)
[2022-12-14 19:53] LABS: Color, Urine Amber (Yellow); Glucose, Dipstick Normal (Normal); Ketone-Dipstick 15 mg/dl (Negative); Leukocyte Esterase-Dipstick 500 /ul (Negative); Nitrite-Dipstick Negative (Negative); Occult Blood-Urine 150 /ul (Negative); Protein-Dipstick 30 mg/dl (Negative); Urine Clarity Sl. Cloudy (Clear); Urine Urobilinogen 1 mg/dl (Normal)
[2022-12-14 19:54] LABS: Urine Bilirubin Dipstick 3 mg/dL (Negative)
[2022-12-14 20:02] LABS: White Blood Cells 5-10 SEEN /hpf (0-5)
[2022-12-14 20:03] LABS: Red Blood Cells-Urine 0-5 SEEN /hpf (0-5); Squamous Epithelial Cells - UA 0-5 SEEN /hpf (5-10); Yeast-Urine 2+ /hpf (None Seen)
[2022-12-14 21:38] VITALS: RESP 18; O2SAT 98
[2022-12-14 21:39] VITALS: BP 125/73; PULSE 83; RESP 18; O2SAT 98
--- NOTE | 2022-12-15 00:15 | NURSING ---
attempted to call nurse report to the [facility] was transferred to unit with no answer.
[2022-12-17 13:31] LABS: Pathologist Review Reviewed
== END 2022-12-15 01:40 | disposition home or self-care (01) ==
PROVIDERS: Emergency Provider Emergency Medicine; PCP Family Medicine; Visit Provider Emergency Medicine
DX: N39.0 Urinary tract infection, site not specified (principal); Z99.2 Dependence on renal dialysis; K74.60 Unspecified cirrhosis of liver; E11.22 Type 2 diabetes mellitus with diabetic chronic kidney disease; E11.42 Type 2 diabetes mellitus with diabetic polyneuropathy; N18.6 End stage renal disease; I12.0 Hypertensive chronic kidney disease with stage 5 chronic kidney disease or end stage renal disease; Z79.4 Long term (current) use of insulin; G93.40 Encephalopathy, unspecified; I25.2 Old myocardial infarction; F32.A Depression, unspecified; E03.9 Hypothyroidism, unspecified; Z99.81 Dependence on supplemental oxygen; Z79.899 Other long term (current) drug therapy
CPT/HCPCS: 36415; 80053; 81001; 82140; 85025; 87086; 87088; 87186; 93005; 99285; A4216

== ENCOUNTER 2023-01-01 22:14 | Inpatient (IN) | payer MEDICARE, MEDICAID, SELFPAY ==
[2023-01-01 22:16] VITALS: PULSE 71; RESP 16; TEMP 37.1; O2SAT 98; BMI 25.0
--- NOTE | 2023-01-01 22:46 | CT_ITS ---
INDICATION: Altered mental status EXAMINATION: CT BRAIN - CT Head or Brain W/O Contrast Injection TECHNIQUE: Multiple axial images were obtained of the head without intravenous contrast. A radiation dose optimization technique was used for this scan. IV Contrast dosage and agent: None. COMPARISON: FINDINGS: BRAIN PARENCHYMA: BRAIN AND EXTRA-AXIAL SPACES: Unremarkable. No intra- or extra-axial hemorrhage. No evidence of acute infarct. No intracranial mass or mass effect. There is preservation of the thakkar/white matter interface. Hypoplastic cerebellar vermis. Ventricles are appropriate for age. No hydrocephalus. Basal cisterns are patent. BONES/JOINTS: Unremarkable. No discrete lytic or blastic abnormalities. SINUSES: Unremarkable as visualized. Clear. MASTOID AIR CELLS: Unremarkable. Clear. ORBITS: Visualized globes, extraocular muscles, optic nerves and retrobulbar fat appear unremarkable. CT/Brain/Head without Contrast IMPRESSION: No acute intracranial abnormality. Electronically Signed: Beulah Akers MD at 23:54 EST ,
[2023-01-01 23:20] LABS: Allen Test Positive; Base Excess 5 mmol/L (-2 to +2); Bicarbonate 28.1 mmol/L (22-26); Blood Gas Specimen Type ART; O2 Delivery Device Room Air; PO2 69 mmHG (75-100); SITE L Radial; SO2 95 % (95-99); Total Carbon Dioxide 29 mmol/L; pCO2 38.5 mmHg (35-45); pH 7.47 (7.35-7.45)
[2023-01-01 23:34] LABS: Absolute Lymphocyte Count 0.34 X10^3/uL (0.83-4.51); Absolute Neutrophil Count 5.8 X10^3/uL (2.0-7.7); Basophil# 0.01 X10^3/uL; Basophil% 0.2 % (0-1); Eosinophil# 0.06 X10^3/uL; Eosinophils% 0.9 % (0-5); Hematocrit 32.7 % (37-47); Hemoglobin 9.9 g/dL (12.0-15.0); Lymphocyte # 0.34 X10^3/ul (0.83-4.51); Lymphocyte % 5.1 % (19-41); Mean Corp Hgb Conc 30.3 g/dL (32-36); Mean Corpuscular Hgb 35.6 pg (27.0-32.0); Mean Corpuscular Volume 117.6 fL (81-99); NRBC Flagged by Analyzer 0 % (0-5); Neutrophil # 5.76 X10^3/uL (2.7-7.7); POSITIVE COUNT YES; POSITIVE DIFFERENTIAL YES; POSITIVE MORPHOLOGY YES; RBC Distribution Width CV 22.3 % (11.6-14.6); RBC Distribution Width SD 96.1 fl (35.1-43.9); Red Blood Count 2.78 M/mm3 (4.2-5.4); White Blood Count 6.6 K/mm3 (4.4-11.0)
[2023-01-01 23:37] LABS: Differential Indicated SCAN CRITERIA MET; Platelet Count 44 K/mm3 (150-450)
--- NOTE | 2023-01-01 23:38 | RAD_ITS ---
INDICATION: Altered mental status EXAMINATION/TECHNIQUE: X-RAY - XR Chest 1 View COMPARISON: None. FINDINGS: LINES/DEVICES: Hemodialysis catheter on the right. LUNGS: There is large right pleural effusion with compressive atelectasis in the right lung is worsened the previous study. MEDIASTINUM AND CARDIOVASCULAR STRUCTURES: Cardiac silhouette not enlarged. Central airways and mediastinal contour are unremarkable. BONES AND SOFT TISSUES: Unremarkable. RAD/Chest 1 View (Portable) IMPRESSION: There is large right pleural effusion with compressive atelectasis in the right lung is worsened the previous study. Electronically Signed: Beulah Akers MD at 0:25 EST ,
[2023-01-01 23:40] LABS: Bedside Glucose 89 mg/dL (74-106)
[2023-01-02] VITALS (7 sets, daily range): BP systolic 130–152; BP diastolic 66–88; PULSE 65–77; RESP 14–22; TEMP 35.4–37.1; O2SAT 94–100; BMI 25.0
[2023-01-02 00:02] LABS: Anion Gap 8 (5-15); BUN 51 mg/dL (7-18); BUN/Creat Ratio 15.2 RATIO (10-20); Calcium,Total 7.8 mg/dL (8.5-10.1); Chloride 102 mmol/L (98-107); Creatinine, Serum 3.36 mg/dL (0.55-1.02); EST Glomerular Filtration Rate 15 mL/min (>60); Est Glom Filt Rate - Afr Amer 18 mL/min (>60); Glucose 89 mg/dL (74-106); Potassium 4.8 mmol/L (3.5-5.1); Sodium Level 135 mmol/L (136-145); Thyroid Stim Hormone (TSH) 3.76 uIU/mL (0.358-3.74)
[2023-01-02 00:13] LABS: Anisocytosis 2+; Differential Comment SCANNED; Macrocytosis 2+; Platelet Estimate MKD DEC (ADEQ)
--- NOTE | 2023-01-02 00:13 | RAD_ITS ---
INDICATION: NG Insertion EXAMINATION/TECHNIQUE: X-RAY - XR Abdomen 1 View COMPARISON: FINDINGS: NG tube is seen its tip is in the gastric lumen is in good position. Stents from prior TIPS. BOWEL GAS PATTERN: Non-obstructive. No bowel or stomach distention. FREE AIR: Not assessed on a single supine view. ORGANOMEGALY: Not seen. CALCIFICATIONS: No abnormal calcifications observed. LOWER CHEST: Large right pleural effusion. BONES AND SOFT TISSUES: No acute pathology. RAD/Abdomen Single View (Portable) IMPRESSION: Non-obstructive bowel gas pattern. Electronically Signed: Beulah Akers MD at 1:25 EST ,
[2023-01-02 00:22] LABS: International Normalized Ratio 1.3; Prothrombin Time (Protime)PT. 15.4 SECONDS (11.7-14.9)
[2023-01-02 00:23] LABS: Partial Thromboplast Time 30.5 Seconds (24.1-36.2)
[2023-01-02] MEDS: Oxymetazoline 0.05% 1 SPRAY SPRAY.BTL 2 SPRAY NASAL (00:42)
[2023-01-02 00:51] LABS: Mucous, Urine 0 SEEN /hpf (<or=2+)
[2023-01-02] MEDS: Lactulose 20 GM/30 ML UDC 30 GM PO ×2 (00:53→04:14)
[2023-01-02 00:55] LABS: Color, Urine Amber (Yellow); Glucose, Dipstick Normal (Normal); Ketone-Dipstick 5 mg/dl (Negative); Leukocyte Esterase-Dipstick 500 /ul (Negative); Nitrite-Dipstick Negative (Negative); Occult Blood-Urine 150 /ul (Negative); Protein-Dipstick 30 mg/dl (Negative); Urine Clarity Sl. Cloudy (Clear); Urine Urobilinogen 1 mg/dl (Normal)
[2023-01-02 01:03] LABS: Acetaminophen (Tylenol) Level < 2.0 ug/mL (10.0-30.0); Alcohol, Blood (Medical)-Serum < 3.0 mg/dL; Salicylate < 1.7 mg/dL (2.8-20.0)
[2023-01-02 01:04] LABS: Urine Bilirubin Dipstick 3 mg/dL (Negative)
[2023-01-02 01:05] LABS: Bacteria 4+ /hpf (None Seen); Red Blood Cells-Urine 0-5 SEEN /hpf (0-5); Squamous Epithelial Cells - UA 0-5 SEEN /hpf (5-10); White Blood Cells >100 SEEN /hpf (0-5)
[2023-01-02 01:10] LABS: Amphetamine Urine VISTA NEGATIVE (<1000 ng/mL); Barbiturate Urine VISTA NEGATIVE (< 200 ng/mL); Benzodiazepine Urine VISTA NEGATIVE (< 200 ng/mL); Cocaine Urine VISTA NEGATIVE (< 300 ng/mL); Ecstacy Urine VISTA NEGATIVE (< 500 ng/mL); Methadone Urine VISTA NEGATIVE (< 300 ng/mL); PCP Urine VISTA NEGATIVE (< 25 ng/mL); THC Urine VISTA NEGATIVE (< 50 ng/mL); Vista UDS pH Range 4
--- NOTE | 2023-01-02 01:18 | EX.ED.DYSGE1 ---
HPI History of Present Illness Chief Complaint: Mental Status Change Narrative Narrative: Patient is a 52-year-old female with past medical history of cirrhosis hepatic encephalopathy thrombocytopenia schizoaffective disorder and chronic kidney disease. She stays at a long-term secondary to these multiple comorbidities. intermediate states that they were rounding on her this evening and she had depressed mental status and was not responding and therefore was sent to the hospital for evaluation. The patient cannot offer any further history based on her mental status. [facility] Medical History Acute on chronic anemia Acute on chronic renal insufficiency Anemia Autoimmune hepatitis Bacteremia due to methicillin resistant Staphylococcus epidermidis Bipolar disorder CHI (closed head injury) Chronic pain Chronic renal insufficiency, stage III (moderate) Cirrhosis of liver Debility Depression Diabetes mellitus, type 2 Encephalopathy acute Essential hypertension Reilly's thyroiditis Hepatic encephalopathy Hepatitis Hypothyroidism Kidney disease MRSA bacteremia Myocardial infarct Non-smoker On home oxygen therapy Pancreatitis Pancytopenia Peripheral neuropathy Right lower lobe pneumonia Schizoaffective disorder Severe sepsis Splenomegaly Stage 3b chronic kidney disease (CKD) Weakness Home Medications rifaximin 550 mg tablet (Xifaxan) 550 mg PO BID IBS 11/04/17 [History Last Taken 06/14/22] sertraline 50 mg tablet 75 mg PO QHS DEPRESSION 03/20/21 [History Last Taken 06/14/22] sucralfate 1 gram tablet (Carafate) 1 g PO QHS STOMACH 03/20/21 [History Last Taken 06/14/22] ursodiol 300 mg capsule 300 mg PO BID LIVER 04/25/21 [History Last Taken 06/14/22] carbamazepine 100 mg tablet,extended release,12 hr 100 mg PO BID bipolar 04/29/21 [History Last Taken 06/14/22] zinc 50 mg tablet 50 mg PO DAILY SUPPLEMENT 09/18/21 [History Last Taken 06/14/22] carvedilol 3.125 mg tablet 6.25 mg PO BID HEART 03/23/22 [History Last Taken 06/14/22] lurasidone 40 mg tablet 40 mg PO LUNCH MOOD 04/16/22 [History Last Taken 06/14/22] torsemide 20 mg tablet 80 mg PO DAILY diuretic 04/16/22 [History Last Taken 06/14/22] ergocalciferol (vitamin D2) 1,250 mcg (50,000 unit) capsule (Vitamin D2) 1,250 unit PO MOTH supplement 05/14/22 [History Last Taken 06/14/22] insulin lispro 100 unit/mL subcutaneous pen (Humalog KwikPen (U-100) Insulin) 7 unit subcut ACHS diabetes 05/14/22 [History Last Taken 06/14/22] levothyroxine 75 mcg tablet 75 mcg PO DAILY THYROID 05/14/22 [History Last Taken 06/14/22] ondansetron 4 mg disintegrating tablet 8 mg PO Q8H PRN Nausea And Vomiting 05/14/22 [History Last Taken 06/13/22] lactulose 20 gram/30 mL oral solution 20 g PO BID liver failure 06/11/22 [History Last Taken 06/14/22] ascorbic acid (vitamin C) 500 mg tablet 500 mg PO DAILY supplement 11/03/22 [History Last Taken Unknown] bisacodyl 10 mg rectal suppository 10 mg HI DAILY PRN Constipation 11/03/22 [History Last Taken Unknown] darbepoetin sree in polysorbat 40 mcg/0.4 mL in polysorbate injection syringe 40 mcg subcut QWEEK bone marrow 11/03/22 [History Last Taken Unknown] dextromethorphan HBr 10 mg/15 mL oral syrup 10 mg PO Q6H PRN Cough 11/03/22 [History Last Taken Unknown] insulin degludec 100 unit/mL (3 mL) subcutaneous pen (Tresiba FlexTouch U-100 insulin) 10 unit subcut DAILY diabetes 11/03/22 [History Last Taken Unknown] insulin glargine 100 unit/mL (3 mL) subcutaneous pen (Lantus Solostar U-100 Insulin) 10 unit subcut DAILY DM2 11/03/22 [History Last Taken Unknown] magnesium hydroxide 400 mg/5 mL oral suspension (Milk of Magnesia) 2,400 mg PO DAILY PRN Constipation 11/03/22 [History Last Taken Unknown] cefdinir 300 mg capsule 300 mg PO BID #10 caps 12/11/22 [Rx Last Taken Unknown] omeprazole 20 mg capsule,delayed release 20 mg PO DAILY GERD 12/14/22 [History Last Taken Unknown] dexamethasone 4 mg tablet 6 mg PO DAILY Renal Disease 01/02/23 [History Last Taken Unknown] guaifenesin 400 mg tablet 400 mg PO DAILY Congestion 01/02/23 [History Last Taken Unknown] hydrocortisone acetate 25 mg rectal suppository (Anusol-HC) 25 mg HI BID Hemorrhoids 01/02/23 [History Last Taken Unknown] Allergy/AdvReac Type Severity Reaction Status Date / Time adhesive Allergy Rash Verified 01/01/23 23:04 escitalopram oxalate Allergy blindness Verified 01/01/23 23:04 [From Lexapro] Fish Containing Products Allergy Other Verified 01/01/23 23:04 gabapentin [From Neurontin] Allergy Alan Verified 01/01/23 23:04 Jez's Syndrome lamotrigine [From Lamictal] Allergy Blindness Verified 01/01/23 23:04 metformin Allergy PT UNSURE Verified 01/01/23 23:04 OF REACTION topiramate [From Topamax] Allergy Other Verified 01/01/23 23:04 sour cream AdvReac Severe Anaphylaxis Uncoded 12/14/22 17:39 Preservatives AdvReac Intermediate passed Uncoded 01/01/23 23:04 out, lungs deflated Family History Father CVA (cerebral vascular accident) Myocardial infarction Heart disease CAD (coronary artery disease) Grandmother CHF (congestive heart failure) Sister Hypertension Mother Heart disease Surgical History H/O: hysterectomy History of abdominal paracentesis (10/2019) History of appendectomy History of cholecystectomy S/P TIPS (transjugular intrahepatic portosystemic shunt) Social History household members: significant other housing: house Smoking Status: Never smoker alcohol intake: never details: Unknown substance use type: does not use ROS ROS ED Review of Systems ROS Unobtainable: due to mental status EXAM Physical Exam Const Vital Signs: 01/01/23 22:16 01/02/23 01:01 Temperature 98.8 F Temperature Source Temporal Pulse Rate 71 69 Respiratory Rate 16 17 Blood Pressure 130/71 H Blood Pressure Mean 90 Pulse Ox 98 94 Oxygen Delivery Method Room Air Room Air Positive well nourished, well developed and obese General Appearance ED: well developed Nutritional Appearance: obese HEENT Reports dry mucous membranes HEENT Narrative: No tongue or lip swelling no oral lesions no airway edema or compromise Mouth ED: Yes dry mucous membranes Mouth: dry mucous membranes Eyes EOMs intact bilaterally Eyes Narrative: Pupils are dilated and slightly sluggish to respond to light. No scleral icterus noted General Eye ED: Negative for scleral icterus Neck supple Neck Narrative: No obvious meningeal signs present Chest Wall palpation of chest normal Resp normal respiratory effort Resp Narrative: Patient has crackles and diminished breath sounds on the right which is consistent with her known history of chronic pleural effusion. Left lung is clear to auscultation and patient has no signs of distress such as tachypnea or excessive muscle use or retractions Cardio regular rate and regular rhythm GI GI Narrative: Abdomen is obese and distended with slight fluid wave. No pulsatile mass Auscultation: normoactive bowel sounds Palpation: soft Extremity Extremity Narrative: Patient has +2 pitting edema to the bilateral lower extremities that is equal and symmetric Neuro Neuro Narrative: Patient is obtunded with GCS of 10. She will open her eyes to voice and will move all extremities especially in response to pain but otherwise will not follow commands. There is no obvious facial droop or signs of focal neurologic deficit. Psych Psych Narrative: Patient has a depressed/flat affect Skin no rashes or lesions noted General Skin Exam: Negative for jaundice MDM MDM MDM Narrative Medical decision making narrative: Patient presented to the ER with stable vitals and despite her depressed mental status was protecting her airway and therefore I felt no need for emergent intubation. With her depressed mental status there is concern for infectious process underlying neurologic event severe electrolyte derangement or hepatic encephalopathy as a cause. A CT was obtained of the head which showed no acute finding. Chest x-ray revealed the chronic pleural effusion on right but otherwise no obvious pneumonia. Labs showed that her ammonia is not elevated to 95 which would correlate with her altered mental status and otherwise her kidney function is at her baseline. At this time an NG tube will be placed as the patient cannot follow commands and is unsafe to swallow. Through the NG tube 30 mg of lactulose will be given secondary to the hepatic encephalopathy. As this will take multiple days to improve she will be admitted to the hospital for further care. The plan of care was discussed with the medicine on-call physician and she agrees to except the patient at this time Lab Data Attestation: I reviewed the patient's lab results. Labs: Laboratory Results - last 24 hr 01/01/23 01/01/23 01/01/23 23:12 23:12 23:12 WBC 6.6 RBC 2.78 L Hgb 9.9 L Hct 32.7 L MCV 117.6 H MCH 35.6 H MCHC 30.3 L RDW Std Deviation 96.1 H RDW Coeff of Valentina 22.3 H Plt Count 44 L* MPV 13.0 H Immature Gran % (Auto) 0.800 Neut % (Auto) 87.0 H Lymph % (Auto) 5.1 L [place] % (Auto) 6.0 Eos % (Auto) 0.9 Baso % (Auto) 0.2 Absolute Neuts (auto) 5.8 Absolute Lymphs (auto) 0.34 L Nucleated RBC % 0 Differential Comment SCANNED Diff Path Review May foll Platelet Estimate MKD DEC Anisocytosis 2+ Macrocytosis 2+ PT INR APTT Sodium 135 L Potassium 4.8 Chloride 102 Carbon Dioxide 25.0 Anion Gap 8 BUN 51 H Creatinine 3.36 H Estim Creat Clear Calc 20.00 Est GFR (MDRD) Af Amer 18 L Est GFR (MDRD) Non-Af 15 L BUN/Creatinine Ratio 15.2 Glucose 89 Calcium 7.8 L Ammonia 295.0 H TSH 3.76 H Urine Color Urine Clarity Urine pH Ur Specific [place] Urine Protein Urine Glucose (UA) Urine Ketones Urine Occult Blood Urine Nitrite Urine Bilirubin Urine Urobilinogen Ur Leukocyte Esterase Urine RBC Urine WBC Ur Squamous Epith Cells Urine Bacteria Urine Mucus Salicylates Urine Opiates Screen Urine Methadone Screen Acetaminophen Ur Barbiturates Screen Ur Phencyclidine Scrn Ur Amphetamines Screen MDMA (Ecstasy) Screen U Benzodiazepines Scrn Urine Cocaine Screen U Cannabinoids Screen Ur Drug Screen Comment Ethyl Alcohol POC Glucose 01/01/23 01/01/23 01/01/23 23:20 23:55 23:55 WBC RBC Hgb Hct MCV MCH MCHC RDW Std Deviation RDW Coeff of Valentina Plt Count MPV Immature Gran % (Auto) Neut % (Auto) Lymph % (Auto) [place] % (Auto) Eos % (Auto) Baso % (Auto) Absolute Neuts (auto) Absolute Lymphs (auto) Nucleated RBC % Differential Comment Diff Path Review Platelet Estimate Anisocytosis Macrocytosis PT 15.4 H INR 1.3 APTT 30.5 Sodium Potassium Chloride Carbon Dioxide Anion Gap BUN Creatinine Estim Creat Clear Calc Est GFR (MDRD) Af Amer Est GFR (MDRD) Non-Af BUN/Creatinine Ratio Glucose Calcium Ammonia TSH Urine Color Urine Clarity Urine pH Ur Specific [place] Urine Protein Urine Glucose (UA) Urine Ketones Urine Occult Blood Urine Nitrite Urine Bilirubin Urine Urobilinogen Ur Leukocyte Esterase Urine RBC Urine WBC Ur Squamous Epith Cells Urine Bacteria Urine Mucus Salicylates < 1.7 L Urine Opiates Screen Urine Methadone Screen Acetaminophen < 2.0 L Ur Barbiturates Screen Ur Phencyclidine Scrn Ur Amphetamines Screen MDMA (Ecstasy) Screen U Benzodiazepines Scrn Urine Cocaine Screen U Cannabinoids Screen Ur Drug Screen Comment Ethyl Alcohol < 3.0 POC Glucose 89 01/02/23 01/02/23 00:45 00:45 WBC RBC Hgb Hct MCV MCH MCHC RDW Std Deviation RDW Coeff of Valentina Plt Count MPV Immature Gran % (Auto) Neut % (Auto) Lymph % (Auto) [place] % (Auto) Eos % (Auto) Baso % (Auto) Absolute Neuts (auto) Absolute Lymphs (auto) Nucleated RBC % Differential Comment Diff Path Review Platelet Estimate Anisocytosis Macrocytosis PT INR APTT Sodium Potassium Chloride Carbon Dioxide Anion Gap BUN Creatinine Estim Creat Clear Calc Est GFR (MDRD) Af Amer Est GFR (MDRD) Non-Af BUN/Creatinine Ratio Glucose Calcium Ammonia TSH Urine Color Mary Urine Clarity Sl. Cloudy Urine pH 5.0 Ur Specific [place] 1.020 Urine Protein 30 H Urine Glucose (UA) Normal Urine Ketones 5 H Urine Occult Blood 150 H Urine Nitrite Negative Urine Bilirubin 3 H Urine Urobilinogen 1 H Ur Leukocyte Esterase 500 H Urine RBC 0-5 SEEN Urine WBC >100 SEEN Ur Squamous Epith Cells 0-5 SEEN Urine Bacteria 4+ Urine Mucus 0 SEEN Salicylates Urine Opiates Screen NEGATIVE Urine Methadone Screen NEGATIVE Acetaminophen Ur Barbiturates Screen NEGATIVE Ur Phencyclidine Scrn NEGATIVE Ur Amphetamines Screen NEGATIVE MDMA (Ecstasy) Screen NEGATIVE U Benzodiazepines Scrn NEGATIVE Urine Cocaine Screen NEGATIVE U Cannabinoids Screen NEGATIVE Ur Drug Screen Comment Ethyl Alcohol POC Glucose ABG Data Attestation: I personally reviewed and interpreted this ABG as follows: ABG results: ABG 01/01/23 23:13 Specimen Type ART Sample Site L Radial pH 7.47 H Bicarbonate Actual 28.1 H Total CO2 29 Base Excess 5 H O2 Saturation 95 ABG pCO2 38.5 ABG pO2 69 L Daniel Test Positive O2 Delivery Device Room Air Radiography Diagnostic Testing: Clinical Impression(s) from Imaging Studies Brain CT 01/01/23 22:46 IMPRESSION: No acute intracranial abnormality. Electronically Signed: Beulah Akers MD at 23:54 EST , Chest X-Ray 01/01/23 23:38 IMPRESSION: There is large right pleural effusion with compressive atelectasis in the right lung is worsened the previous study. Electronically Signed: Beulah Akers MD at 0:25 EST , KUB X-Ray 01/02/23 00:13 IMPRESSION: Non-obstructive bowel gas pattern. Electronically Signed: Beulah Akers MD at 1:25 EST , 1 view chest x-ray as interpreted by the emergency medicine physician reveals a chronic large right pleural effusion otherwise no acute infiltrate or pneumothorax Discharge Plan Dx/Rx/DC Orders Clinical Impression: Hepatic encephalopathy, Chronic kidney disease, stage 3b, Thrombocytopenia Disposition Disposition: Acute Care Hospital [facility] Discharge Date/Time: 01/02/23 03:12
--- NOTE | 2023-01-02 03:03 | HP.PCM.HOS_ITS ---
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 Per report at the [facility] she lives they were rounding and noted she had decreased mental state and was not responding was sent to the hospital for evaluation. In the ED she was noted to have ammonia which was significantly elevated, chest x-ray with no pneumonia and CT had unremarkable. NG tube placed and lactulose ordered and hospitalist consulted for admission. Unable to obtain further history due to mental status. [facility] Medical History Acute on chronic anemia Acute on chronic renal insufficiency Anemia Autoimmune hepatitis Bacteremia due to methicillin resistant Staphylococcus epidermidis Bipolar disorder CHI (closed head injury) Chronic pain Chronic renal insufficiency, stage III (moderate) Cirrhosis of liver Debility Depression Diabetes mellitus, type 2 Encephalopathy acute Essential hypertension Reilly's thyroiditis Hepatic encephalopathy Hepatitis Hypothyroidism Kidney disease MRSA bacteremia Myocardial infarct Non-smoker On home oxygen therapy Pancreatitis Pancytopenia Peripheral neuropathy Right lower lobe pneumonia Schizoaffective disorder Severe sepsis Splenomegaly Stage 3b chronic kidney disease (CKD) Weakness Home Medications rifaximin 550 mg tablet (Xifaxan) 550 mg PO BID IBS 11/04/17 [History Last Taken 06/14/22] sertraline 50 mg tablet 75 mg PO QHS DEPRESSION 03/20/21 [History Last Taken 06/14/22] sucralfate 1 gram tablet (Carafate) 1 g PO QHS STOMACH 03/20/21 [History Last Taken 06/14/22] ursodiol 300 mg capsule 300 mg PO BID LIVER 04/25/21 [History Last Taken 06/14/22] carbamazepine 100 mg tablet,extended release,12 hr 100 mg PO BID bipolar 04/29/21 [History Last Taken 06/14/22] zinc 50 mg tablet 50 mg PO DAILY SUPPLEMENT 09/18/21 [History Last Taken 06/14/22] carvedilol 3.125 mg tablet 6.25 mg PO BID HEART 03/23/22 [History Last Taken 06/14/22] lurasidone 40 mg tablet 40 mg PO LUNCH MOOD 04/16/22 [History Last Taken 06/14] torsemide 20 mg tablet 80 mg PO DAILY diuretic 04/16/22 [History Last Taken 06/14/22] ergocalciferol (vitamin D2) 1,250 mcg (50,000 unit) capsule (Vitamin D2) 1,250 unit PO MOTH supplement 05/14/22 [History Last Taken 06/14/22] insulin lispro 100 unit/mL subcutaneous pen (Humalog KwikPen (U-100) Insulin) 7 unit subcut ACHS diabetes 05/14/22 [History Last Taken 06/14/22] levothyroxine 75 mcg tablet 75 mcg PO DAILY THYROID 05/14/22 [History Last Taken 06/14/22] ondansetron 4 mg disintegrating tablet 8 mg PO Q8H PRN Nausea And Vomiting 05/14/22 [History Last Taken 06/13/22] lactulose 20 gram/30 mL oral solution 20 g PO BID liver failure 06/11/22 [History Last Taken 06/14/22] ascorbic acid (vitamin C) 500 mg tablet 500 mg PO DAILY supplement 11/03/22 [History Last Taken Unknown] bisacodyl 10 mg rectal suppository 10 mg WI DAILY PRN Constipation 11/03/22 [History Last Taken Unknown] darbepoetin sree in polysorbat 40 mcg/0.4 mL in polysorbate injection syringe 40 mcg subcut QWEEK bone marrow 11/03/22 [History Last Taken Unknown] dextromethorphan HBr 10 mg/15 mL oral syrup 10 mg PO Q6H PRN Cough 11/03/22 [History Last Taken Unknown] insulin degludec 100 unit/mL (3 mL) subcutaneous pen (Tresiba FlexTouch U-100 insulin) 10 unit subcut DAILY diabetes 11/03/22 [History Last Taken Unknown] insulin glargine 100 unit/mL (3 mL) subcutaneous pen (Lantus Solostar U-100 Insulin) 10 unit subcut DAILY DM2 11/03/22 [History Last Taken Unknown] magnesium hydroxide 400 mg/5 mL oral suspension (Milk of Magnesia) 2,400 mg PO DAILY PRN Constipation 11/03/22 [History Last Taken Unknown] cefdinir 300 mg capsule 300 mg PO BID #10 caps 12/11/22 [Rx Last Taken Unknown] omeprazole 20 mg capsule,delayed release 20 mg PO DAILY GERD 12/14/22 [History Last Taken Unknown] dexamethasone 4 mg tablet 6 mg PO DAILY Renal Disease 01/02/23 [History Last Taken Unknown] guaifenesin 400 mg tablet 400 mg PO DAILY Congestion 01/02/23 [History Last Taken Unknown] hydrocortisone acetate 25 mg rectal suppository (Anusol-HC) 25 mg WI BID Hemorrhoids 01/02/23 [History Last Taken Unknown] Allergy/AdvReac Type Severity Reaction Status Date / Time adhesive Allergy Rash Verified 01/01/23 23:04 escitalopram oxalate Allergy blindness Verified 01/01/23 23:04 [From Lexapro] Fish Containing Products Allergy Other Verified 01/01/23 23:04 gabapentin [From Neurontin] Allergy Alan Verified 01/01/23 23:04 Jez's Syndrome lamotrigine [From Lamictal] Allergy Blindness Verified 01/01/23 23:04 metformin Allergy PT UNSURE Verified 01/01/23 23:04 OF REACTION topiramate [From Topamax] Allergy Other Verified 01/01/23 23:04 sour cream AdvReac Severe Anaphylaxis Uncoded 12/14/22 17:39 Preservatives AdvReac Intermediate passed Uncoded 01/01/23 23:04 out, lungs deflated Family History Father CVA (cerebral vascular accident) Myocardial infarction Heart disease CAD (coronary artery disease) Grandmother CHF (congestive heart failure) Sister Hypertension Mother Heart disease Surgical History H/O: hysterectomy History of abdominal paracentesis (10/2019) History of appendectomy History of cholecystectomy S/P TIPS (transjugular intrahepatic portosystemic shunt) Social History household members: significant other housing: house Smoking Status: Never smoker alcohol intake: never details: Unknown substance use type: does not use ROS ROS Narrative Unable to obtain ROS secondary to mental status Vital Signs Vital Signs Vital Signs: 01/01/23 22:16 01/02/23 01:01 01/02/23 02:26 Temperature 98.8 F 98.8 F Temperature Source Temporal Temporal Pulse Rate 71 69 65 Respiratory Rate 16 17 14 Blood Pressure 130/71 H 135/66 H Blood Pressure Mean 90 89 Pulse Ox 98 94 94 Oxygen Delivery Method Room Air Room Air Room Air Weight Weight: 77 kg Body Mass Index (BMI) 25.0 Physical Exam Narrative General: Would respond to stimulation and with much prompting would attempt to squeeze hand but overall minimally able to cooperate though protecting airway HEENT: Atraumatic, normocephalic Eyes: Anicteric Neck: Supple Respiratory: Clear to auscultation bilaterally, normal respiratory effort Cardiovascular: Regular rate and rhythm GI: Soft, nontender, nondistended Extremities: No edema Musculoskeletal: Moving all extremities Neuro: Unable to participate in neuro exam Skin: No rashes appreciated Psych: Unable to cooperate Results Lab / Micro Data Result Diagrams: 01/02/23 06:30 01/01/23 23:12 Labs: Laboratory Results - last 24 hr 01/01/23 23:12: WBC 6.6, RBC 2.78 L, Hgb 9.9 L, Hct 32.7 L, MCV 117.6 H, MCH 35.6 H, MCHC 30.3 L, RDW Std Deviation 96.1 H, RDW Coeff of Valentina 22.3 H, Plt Count 44 L*, MPV 13.0 H, Immature Gran % (Auto) 0.800, Neut % (Auto) 87.0 H, Lymph % (Auto) 5.1 L, [place] % (Auto) 6.0, Eos % (Auto) 0.9, Baso % (Auto) 0.2, Absolute Neuts (auto) 5.8, Absolute Lymphs (auto) 0.34 L, Nucleated RBC % 0, Differential Comment SCANNED, Diff Path Review May foll, Platelet Estimate MKD DEC, Anisocytosis 2+, Macrocytosis 2+ 01/01/23 23:12: Sodium 135 L, Potassium 4.8, Chloride 102, Carbon Dioxide 25.0, Anion Gap 8, BUN 51 H, Creatinine 3.36 H, Estim Creat Clear Calc 20.00, Est GFR (MDRD) Af Amer 18 L, Est GFR (MDRD) Non-Af 15 L, BUN/Creatinine Ratio 15.2, Glucose 89, Calcium 7.8 L, TSH 3.76 H 02/14/23 23:12: Ammonia 295.0 H 01/01/23 23:20: POC Glucose 89 01/01/23 23:55: PT 15.4 H, INR 1.3, APTT 30.5 01/01/23 23:55: Salicylates < 1.7 L, Acetaminophen < 2.0 L, Ethyl Alcohol < 3.0 01/02/23 00:45: Urine Opiates Screen NEGATIVE, Urine Methadone Screen NEGATIVE, Ur Barbiturates Screen NEGATIVE, Ur Phencyclidine Scrn NEGATIVE, Ur Amphetamines Screen NEGATIVE, MDMA (Ecstasy) Screen NEGATIVE, U Benzodiazepines Scrn NEGATIVE, Urine Cocaine Screen NEGATIVE, U Cannabinoids Screen NEGATIVE, Ur Drug Screen Comment 01/02/23 00:45: Urine Color Mary, Urine Clarity Sl. Cloudy, Urine pH 5.0, Ur Specific [place] 1.020, Urine Protein 30 H, Urine Glucose (UA) Normal, Urine Ketones 5 H, Urine Occult Blood 150 H, Urine Nitrite Negative, Urine Bilirubin 3 H, Urine Urobilinogen 1 H, Ur Leukocyte Esterase 500 H, Urine RBC 0-5 SEEN, Urine WBC >100 SEEN, Ur Squamous Epith Cells 0-5 SEEN, Urine Bacteria 4+, Urine Mucus 0 SEEN ABG Data ABG results: ABG 01/01/23 23:13 Specimen Type ART Sample Site L Radial pH 7.47 H Bicarbonate Actual 28.1 H Total CO2 29 Base Excess 5 H O2 Saturation 95 ABG pCO2 38.5 ABG pO2 69 L Daniel Test Positive O2 Delivery Device Room Air Radiology Impression Brain CT 01/01/23 22:46 IMPRESSION: No acute intracranial abnormality. Electronically Signed: Beulah Akers MD at 23:54 EST , Chest X-Ray 01/01/23 23:38 IMPRESSION: There is large right pleural effusion with compressive atelectasis in the right lung is worsened the previous study. Electronically Signed: Beulah Akers MD at 0:25 EST , KUB X-Ray 01/02/23 00:13 IMPRESSION: Non-obstructive bowel gas pattern. Electronically Signed: Beulah Akers MD at 1:25 EST , Assessment & Plan Assessment/Plan (1) Hepatic encephalopathy: (2) Chronic kidney disease, stage 3b: (3) Schizoaffective disorder: QUALIFIERS: Schizoaffective disorder type: depressive Qualified Code(s): F25.1 - Schizoaffective disorder, depressive type (4) Autoimmune hepatitis: (5) Thrombocytopenia: PLAN: Plan #hepatic encephalopathy Ammonia 295, NG tube placed and receiving lactulose #CKDIIIb add onto AM labs if possible hemodialysis Saturday/Saturday/Saturday Started on dialysis 10/13/2022 at [facility] and has yet to recover per documentation We will consult nephrology Continue torsemide Based on home med list has dexamethasone listed however it appears this was only supposed to be a limited course, will need to clarify #cirrhosis secondary to autoimmune hepatitis Reportedly on the transplant list at [facility] per documentation Lactulose through NG at this time Continue rifaximin and torsemide Can consider GI consult pending progress #Type 2 diabetes mellitus Sliding scale insulin continue decreased dose of glargine at 5 due to decreased p.o. intake given mental status #Schizoaffective disorder Continue Latuda and Zoloft as well as tegretol #Thrombocytopenia Chronic, continue to trend, no active bleeding or indication for transfusion at this time #DVT ppx: SCDs Qi Martinez MD Time spent in the patient's overall evaluation,decision-making process, review of diagnostic data, adjustment of management, discussion with other providers, nursing nursing and ancillary staff involved in patient's care documentation, 60 minutes Charges/Coding Visit Charges Inpatient E&M: 87081 Init Hosp L2
[2023-01-02] MEDS: Lactulose 20 GM/30 ML UDC 10 GM PO (06:05)
[2023-01-02 06:42] LABS: Absolute Lymphocyte Count 0.27 X10^3/uL (0.83-4.51); Absolute Neutrophil Count 4.4 X10^3/uL (2.0-7.7); Basophil# 0.01 X10^3/uL; Basophil% 0.2 % (0-1); Hematocrit 29.8 % (37-47); Hemoglobin 9.7 g/dL (12.0-15.0); Lymphocyte # 0.27 X10^3/ul (0.83-4.51); Lymphocyte % 5.5 % (19-41); Mean Corp Hgb Conc 32.6 g/dL (32-36); Mean Corpuscular Hgb 35.1 pg (27.0-32.0); Mean Platelet Vol. 10.8 fl (6.2-12.0); Monocyte# 0.19 X10^3/uL; Monocyte% 3.9 % (0-10); NRBC Flagged by Analyzer 0 % (0-5); Neutrophil # 4.42 X10^3/uL (2.7-7.7); Neutrophil % 89.6 % (47-70); POSITIVE COUNT YES; POSITIVE DIFFERENTIAL YES; POSITIVE MORPHOLOGY YES; RBC Distribution Width CV 22.1 % (11.6-14.6); RBC Distribution Width SD 84.7 fl (35.1-43.9); Red Blood Count 2.76 M/mm3 (4.2-5.4); White Blood Count 4.9 K/mm3 (4.4-11.0)
[2023-01-02 06:45] LABS: Differential Indicated SCAN CRITERIA MET
[2023-01-02 06:46] LABS: Platelet Count 32 K/mm3 (150-450)
[2023-01-02 06:58] LABS: Anisocytosis 1+; Differential Comment SCANNED; Macrocytosis 1+; Platelet Estimate MKD DEC (ADEQ)
[2023-01-02 07:23] LABS: ALB/GLOB Ratio 0.4 RATIO (0.9-2.4); AST(SGOT) 48 U/L (15-37); Alanine Aminotransfer ALT/SGPT 54 U/L (13-56); Albumin, Serum 1.6 g/dL (3.2-5.0); Alkaline Phosphatase 227 U/L (45-117); Anion Gap 9 (5-15); BUN 55 mg/dL (7-18); BUN/Creat Ratio 14.5 RATIO (10-20); Calcium,Total 7.8 mg/dL (8.5-10.1); Chloride 102 mmol/L (98-107); EST Glomerular Filtration Rate 13 mL/min (>60); Est Glom Filt Rate - Afr Amer 16 mL/min (>60); Estimated Creatinine Clearance 17.69 ml/min; Globulin 4.5 g/dL (2.2-4.2); Glucose 238 mg/dL (74-106); Magnesium 2.2 mg/dL (1.6-2.6); Potassium 4.4 mmol/L (3.5-5.1); Protein, Total 6.1 g/dL (6.4-8.2); Sodium Level 138 mmol/L (136-145)
--- NOTE | 2023-01-02 08:21 | PN.HOSP_ITS ---
Reason for Visit Reason for Visit: Follow-up for hepatic encephalopathy, decompensated autoimmune related cirrhosis complicated with thrombocytopenia Diagnoses Thrombocytopenia, unspecified (01/02/23) Schizoaffective disorder, depressive type (01/02/23) Autoimmune hepatitis (01/02/23) Hepatic encephalopathy (01/02/23) Chronic kidney disease, stage 3b (01/02/23) Objective Data Objective Data Vital Signs: Vital Signs Temp Pulse Resp BP Pulse Ox O2 Del Method 98 F 70 18 151/82 H 96 Room Air 01/02/23 07:58 01/02/23 07:58 01/02/23 07:58 01/02/23 07:58 01/02/23 07:58 01/02/23 07:58 Oxygen Delivery Method Room Air Weight: 169 lb 12.095 oz Body Mass Index (BMI) 25.0 Intake & Output: Intake and Output for Last 24 Hours 12/31/22 01/01/23 01/02/23 23:59 23:59 23:59 Output Total 0 / 0 Balance 0 / 0 Lab / Micro Data Result Diagrams: 01/02/23 06:30 01/02/23 06:30 Labs: Laboratory Results - last 24 hr 01/01/23 23:12: WBC 6.6, RBC 2.78 L, Hgb 9.9 L, Hct 32.7 L, MCV 117.6 H, MCH 35.6 H, MCHC 30.3 L, RDW Std Deviation 96.1 H, RDW Coeff of Valentina 22.3 H, Plt Count 44 L*, MPV 13.0 H, Immature Gran % (Auto) 0.800, Neut % (Auto) 87.0 H, Lymph % (Auto) 5.1 L, [place] % (Auto) 6.0, Eos % (Auto) 0.9, Baso % (Auto) 0.2, Absolute Neuts (auto) 5.8, Absolute Lymphs (auto) 0.34 L, Nucleated RBC % 0, Differential Comment SCANNED, Diff Path Review May mitali, Platelet Estimate MKD DEC, Anisocytosis 2+, Macrocytosis 2+ 01/01/23 23:12: Sodium 135 L, Potassium 4.8, Chloride 102, Carbon Dioxide 25.0, Anion Gap 8, BUN 51 H, Creatinine 3.36 H, Estim Creat Clear Calc 20.00, Est GFR (MDRD) Af Amer 18 L, Est GFR (MDRD) Non-Af 15 L, BUN/Creatinine Ratio 15.2, Glucose 89, Calcium 7.8 L, TSH 3.76 H 01/01/23 23:12: Ammonia 295.0 H 01/01/23 23:20: POC Glucose 89 01/01/23 23:55: PT 15.4 H, INR 1.3, APTT 30.5 01/01/23 23:55: Salicylates < 1.7 L, Acetaminophen < 2.0 L, Ethyl Alcohol < 3.0 01/02/23 00:45: Urine Opiates Screen NEGATIVE, Urine Methadone Screen NEGATIVE, Ur Barbiturates Screen NEGATIVE, Ur Phencyclidine Scrn NEGATIVE, Ur Amphetamines Screen NEGATIVE, MDMA (Ecstasy) Screen NEGATIVE, U Benzodiazepines Scrn NEGATIVE, Urine Cocaine Screen NEGATIVE, U Cannabinoids Screen NEGATIVE, Ur Drug Screen Comment 01/02/23 00:45: Urine Color Mary, Urine Clarity Sl. Cloudy, Urine pH 5.0, Ur Specific [place] 1.020, Urine Protein 30 H, Urine Glucose (UA) Normal, Urine Ketones 5 H, Urine Occult Blood 150 H, Urine Nitrite Negative, Urine Bilirubin 3 H, Urine Urobilinogen 1 H, Ur Leukocyte Esterase 500 H, Urine RBC 0-5 SEEN, Urine WBC >100 SEEN, Ur Squamous Epith Cells 0-5 SEEN, Urine Bacteria 4+, Urine Mucus 0 SEEN 01/02/23 06:30: WBC 4.9, RBC 2.76 L, Hgb 9.7 L, Hct 29.8 L, MCV 108.0 H D, MCH 35.1 H, MCHC 32.6 D, RDW Std Deviation 84.7 H, RDW Coeff of Valentina 22.1 H, Plt Count 32 L*, MPV 10.8, Immature Gran % (Auto) 0.800, Neut % (Auto) 89.6 H, Lymph % (Auto) 5.5 L, [place] % (Auto) 3.9, Eos % (Auto) 0.0, Baso % (Auto) 0.2, Absolute Neuts (auto) 4.4, Absolute Lymphs (auto) 0.27 L, Nucleated RBC % 0, Differential Comment SCANNED, Diff Path Review May foll, Platelet Estimate MKD DEC, Anisocytosis 1+, Macrocytosis 1+ 02/15/23 06:30: Sodium 138, Potassium 4.4, Chloride 102, Carbon Dioxide 27.0, Anion Gap 9, BUN 55 H, Creatinine 3.80 H, Estim Creat Clear Calc 17.69, Est GFR (MDRD) Af Amer 16 L, Est GFR (MDRD) Non-Af 13 L, BUN/Creatinine Ratio 14.5, Glucose 238 H, Calcium 7.8 L, Magnesium 2.2, Total Bilirubin 1.40 H, AST 48 H, ALT 54, Alkaline Phosphatase 227 H, Total Protein 6.1 L, Albumin 1.6 L, Globulin 4.5 H, Albumin/Globulin Ratio 0.4 L 01/02/23 06:30: Ammonia 113.0 H ABG Data ABG results: ABG 01/01/23 23:13 Specimen Type ART Sample Site L Radial pH 7.47 H Bicarbonate Actual 28.1 H Total CO2 29 Base Excess 5 H O2 Saturation 95 ABG pCO2 38.5 ABG pO2 69 L Daniel Test Positive O2 Delivery Device Room Air Radiography Diagnostic Testing: Radiology Impression Brain CT 01/01/23 22:46 IMPRESSION: No acute intracranial abnormality. Electronically Signed: Beulah Akers MD at 23:54 EST , Chest X-Ray 01/01/23 23:38 IMPRESSION: There is large right pleural effusion with compressive atelectasis in the right lung is worsened the previous study. Electronically Signed: Beulah Akers MD at 0:25 EST , KUB X-Ray 01/02/23 00:13 IMPRESSION: Non-obstructive bowel gas pattern. Electronically Signed: Beulah Akers MD at 1:25 EST , Physical Exam Narrative Seen and examined. Patient eyes are closed. Not responsive to touch. Semiconscious. No meaningful history possible Physical exam General: Unconscious Not responsive to touch. Opens eyes on sternal rub. HEENT: Atraumatic, PERRLA, EOMI, Normocephalic Oral: NG tube. No Gingival or Mucosal Lesions/ Ulcerations Neck: Supple, No JVD, Negative Carotid Bruits Lungs: Air entry severely diminished in right lung. Right lung whiteout. No hypoxia or tachypnea. No crepitation/rhonchi Cardiovascular: Regular rate, Regular Rhythm, Normal S1, Normal S2, No murmurs Abdomen: Bowel Sounds Present, Soft, Non Tender, no significant ascites. : No renal angle tenderness. No suprapubic tenderness. Extremities: No edema, Capillary Refill Less than 3 Seconds Skin: No rashes, No breakdown Musculoskeletal: No Tenderness to Palpation of Joints or Extremities, moderate muscle atrophy of lower extremities Neurological: Complete neuro exam unobtainable. Psych/Mental : Unconscious Assessment & Plan Assessment/Plan (1) Hepatic encephalopathy: (2) Chronic kidney disease, stage 3b: (3) Schizoaffective disorder: QUALIFIERS: Schizoaffective disorder type: depressive Qualified Code(s): F25.1 - Schizoaffective disorder, depressive type (4) Autoimmune hepatitis: (5) Thrombocytopenia: PLAN: Plan This 52-year-old female with history of autoimmune cirrhosis, schizoaffective disorder CKD admitted with altered mental status, confusion, decreased responsiveness consistent with hepatic encephalopathy #Acute hepatic encephalopathy with history of decompensated autoimmune related hepatitis, severe thrombocytopenia right hepatic hydrothorax status post thoracocentesis in the past: Patient has NG tube. On lactulose and Xifaxan. On diuretic torsemide at home. Not candidate for spironolactone because potassium is 4.4 with chronic kidney disease. As per family patient is on transplant list in [facility]. Platelet count is 32,000, about the baseline 2 right hepatic hydrothorax: ABG was done which showed 7.4 showing mild hypoxia with increased Aa gradient. IR guided thoracocentesis tomorrow AM. Discussed with IR. Furosemide 40 mg IV ordered. 3. CKD stage V on hemodialysis: Patient was started on dialysis on 10/13/2022 at [facility]. Saturday. Building And Construction Manager is consulted. Patient creatinine runs around 3.5-5.0. Building And Construction Manager is consulted. #Type 2 diabetes mellitus: Glucose is elevated 222, BMP 238. Accu-Cheks and cover with [place] sliding scale plus Lantus 10 units subcutaneous daily. #Schizoaffective disorder: Since patient is on consults therefore will hold Zoloft Tegretol and Latuda. #DVT ppx: SCDs Total time of the visit including total time spent in counseling or coordination of care, (more than 50% of the total time, spent in obtaining medical information from nurses and other ancillary care providers,explaining to the patient about labs, imaging, diagnosis and management of active complex medical conditions), discussion with gastroenterology, review of labs and imaging is 40 minutes. Charges/Coding Visit Charges Inpatient E&M: 98740 Subs Hosp L3
[2023-01-02] MEDS: Ursodiol 250 MG Tablet GT ×2 (10:08→22:44)
[2023-01-02] MEDS: Carvedilol 6.25 MG Tablet GT ×2 (10:09→22:40)
[2023-01-02] MEDS: rifAXIMin 550 MG Tablet GT ×2 (10:09→22:44)
[2023-01-02] MEDS: Lansoprazole 15 MG Capsule.DR GT (10:09)
[2023-01-02] MEDS: Menthol/Lanolin/Calamine/Znox 113 GM Tube 1 APPLIC TOPICAL ×2 (10:10→22:42)
--- NOTE | 2023-01-02 10:19 | CASEMGMT ---
Patient is from [facility] [place]. SW called patient's sister, Jennifer who is also patient's POA and asked if the plan is for patient to return to [facility] at discharge. Jennifer said the plan is for patient to return to [facility] at discharge. MARIANA will send updates to [facility] via [employer]. Cora Perales WELDING OPERATOR JAYLENE
--- NOTE | 2023-01-02 11:22 | CON.PCM.RE_ITS ---
Assessment & Plan Assessment/Plan (1) ESRD (end stage renal disease): (2) Hepatic encephalopathy: PLAN: Plan - ESRD on hemodialysis Saturday at [facility]. Patient was started on dialysis October 13, 2022 at [facility]. There has been no evidence of renal recovery. We will plan for dialysis today over 3.5 hours with UF as pt/bp tolerates. EDW at [facility] 73.5kg. Reviewed CXR which showed large right pleural effusion. - History of cirrhosis.? As per last nephrology note, she was on list for simultaneous liver and kidney transplant but deactivated due to general debility and other illnesses. Platelet count 32. Patient does not receive heparin with dialysis. Has NG and receiving lactulose and Xifaxan. Last ammonia level has improved. Brain CT no acute intracranial abnormality. -Anemia of chronic disease. Will monitor hemoglobin trends, hemoglobin is 9.7. Patient receives MANINDER and iron at [facility]. -Blood pressures acceptable on carvedilol and torsemide. 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 In ED patient had chest x-ray which showed large right pleural effusion, she was also noted to have significantly elevated ammonia level of 295, NG tube was placed, patient received lactulose and admitted to hospital for further evaluation and treatment. We were consulted for hemodialysis needs. [facility] last dial[facility]. Patient is not alert or oriented, information gathered from the chart [facility] Medical History Acute on chronic anemia Acute on chronic renal insufficiency Anemia Autoimmune hepatitis Bacteremia due to methicillin resistant Staphylococcus epidermidis Bipolar disorder CHI (closed head injury) Chronic pain Chronic renal insufficiency, stage III (moderate) Cirrhosis of liver Debility Depression Diabetes mellitus, type 2 Encephalopathy acute Essential hypertension Reilly's thyroiditis Hepatic encephalopathy Hepatitis Hypothyroidism Kidney disease MRSA bacteremia Myocardial infarct Non-smoker On home oxygen therapy Pancreatitis Pancytopenia Peripheral neuropathy Right lower lobe pneumonia Schizoaffective disorder Severe sepsis Splenomegaly Stage 3b chronic kidney disease (CKD) Weakness Home Medications rifaximin 550 mg tablet (Xifaxan) 550 mg PO BID IBS 11/04/17 [History Last Taken 06/14/22] sertraline 50 mg tablet 75 mg PO QHS DEPRESSION 03/20/21 [History Last Taken 06/14/22] sucralfate 1 gram tablet (Carafate) 1 g PO QHS STOMACH 03/20/21 [History Last Taken 06/14/22] ursodiol 300 mg capsule 300 mg PO BID LIVER 04/25/21 [History Last Taken 06/14/22] carbamazepine 100 mg tablet,extended release,12 hr 100 mg PO BID bipolar 04/29/21 [History Last Taken 06/14/22] zinc 50 mg tablet 50 mg PO DAILY SUPPLEMENT 09/18/21 [History Last Taken 06/14/22] carvedilol 3.125 mg tablet 6.25 mg PO BID HEART 03/23/22 [History Last Taken 06/14/22] lurasidone 40 mg tablet 40 mg PO LUNCH MOOD 04/16/22 [History Last Taken 06/14/22] torsemide 20 mg tablet 80 mg PO DAILY diuretic 04/16/22 [History Last Taken 06/14/22] ergocalciferol (vitamin D2) 1,250 mcg (50,000 unit) capsule (Vitamin D2) 1,250 unit PO MOTH supplement 05/14/22 [History Last Taken 06/14/22] insulin lispro 100 unit/mL subcutaneous pen (Humalog KwikPen (U-100) Insulin) 7 unit subcut ACHS diabetes 05/14/22 [History Last Taken 06/14/22] levothyroxine 75 mcg tablet 75 mcg PO DAILY THYROID 05/14/22 [History Last Taken 06/14/22] ondansetron 4 mg disintegrating tablet 8 mg PO Q8H PRN Nausea And Vomiting 05/14/22 [History Last Taken 06/13/22] lactulose 20 gram/30 mL oral solution 20 g PO BID liver failure 06/11/22 [H istory Last Taken 06/14/22] ascorbic acid (vitamin C) 500 mg tablet 500 mg PO DAILY supplement 11/03/22 [History Last Taken Unknown] bisacodyl 10 mg rectal suppository 10 mg [place] DAILY PRN Constipation 11/03/22 [History Last Taken Unknown] darbepoetin sree in polysorbat 40 mcg/0.4 mL in polysorbate injection syringe 40 mcg subcut QWEEK bone marrow 11/03/22 [History Last Taken Unknown] dextromethorphan HBr 10 mg/15 mL oral syrup 10 mg PO Q6H PRN Cough 11/03/22 [History Last Taken Unknown] insulin degludec 100 unit/mL (3 mL) subcutaneous pen (Tresiba FlexTouch U-100 insulin) 10 unit subcut DAILY diabetes 11/03/22 [History Last Taken Unknown] insulin glargine 100 unit/mL (3 mL) subcutaneous pen (Lantus Solostar U-100 Insulin) 10 unit subcut DAILY DM2 11/03/22 [History Last Taken Unknown] magnesium hydroxide 400 mg/5 mL oral suspension (Milk of Magnesia) 2,400 mg PO DAILY PRN Constipation 11/03/22 [History Last Taken Unknown] cefdinir 300 mg capsule 300 mg PO BID #10 caps 12/11/22 [Rx Last Taken Unknown] omeprazole 20 mg capsule,delayed release 20 mg PO DAILY GERD 12/14/22 [History Last Taken Unknown] dexamethasone 4 mg tablet 6 mg PO DAILY Renal Disease 01/02/23 [History Last Taken Unknown] guaifenesin 400 mg tablet 400 mg PO DAILY Congestion 01/02/23 [History Last Taken Unknown] hydrocortisone acetate 25 mg rectal suppository (Anusol-HC) 25 mg [place] BID Hemorrhoids 01/02/23 [History Last Taken Unknown] Allergy/AdvReac Type Severity Reaction Status Date / Time adhesive Allergy Rash Verified 01/01/23 23:04 escitalopram oxalate Allergy blindness Verified 01/01/23 23:04 [From Lexapro] Fish Containing Products Allergy Other Verified 01/01/23 23:04 gabapentin [From Neurontin] Allergy Alan Verified 01/01/23 23:04 Jez's Syndrome lamotrigine [From Lamictal] Allergy Blindness Verified 01/01/23 23:04 metformin Allergy PT UNSURE Verified 01/01/23 23:04 OF REACTION topiramate [From Topamax] Allergy Other Verified 01/01/23 23:04 sour cream AdvReac Severe Anaphylaxis Uncoded 12/14/22 17:39 Preservatives AdvReac Intermediate passed Uncoded 01/01/23 23:04 out, lungs deflated Family History Father CVA (cerebral vascular accident) Myocardial infarction Heart disease CAD (coronary artery disease) Grandmother CHF (congestive heart failure) Sister Hypertension Mother Heart disease Surgical History H/O: hysterectomy History of abdominal paracentesis (10/2019) History of appendectomy History of cholecystectomy S/P TIPS (transjugular intrahepatic portosystemic shunt) Social History household members: significant other housing: house Smoking Status: Never smoker alcohol intake: never details: Unknown substance use type: does not use ROS ROS Narrative unable to obtain Physical Exam Narrative Resting quietly, no apparent distress S1, S2, RRR Lung sounds clear anteriorly. No rhonchi or rales noted Abdomen soft, positive bowel sounds No edema to bilateral lower legs,feet or arms NG tube intact Tunneled HD catheter dressing clean, dry and intact Lab / Micro Data Result Diagrams: 01/02/23 06:30 01/02/23 06:30 Labs: Laboratory Results - last 24 hr 01/01/23 23:12: WBC 6.6, RBC 2.78 L, Hgb 9.9 L, Hct 32.7 L, MCV 117.6 H, MCH 35.6 H, MCHC 30.3 L, RDW Std Deviation 96.1 H, RDW Coeff of Valentina 22.3 H, Plt Cou nt 44 L*, MPV 13.0 H, Immature Gran % (Auto) 0.800, Neut % (Auto) 87.0 H, Lymph % (Auto) 5.1 L, [place] % (Auto) 6.0, Eos % (Auto) 0.9, Baso % (Auto) 0.2, Absolute Neuts (auto) 5.8, Absolute Lymphs (auto) 0.34 L, Nucleated RBC % 0, Differential Comment SCANNED, Diff Path Review May foll, Platelet Estimate MKD DEC, Anisocytosis 2+, Macrocytosis 2+ 01/01/23 23:12: Sodium 135 L, Potassium 4.8, Chloride 102, Carbon Dioxide 25.0, Anion Gap 8, BUN 51 H, Creatinine 3.36 H, Estim Creat Clear Calc 20.00, Est GFR (MDRD) Af Amer 18 L, Est GFR (MDRD) Non-Af 15 L, BUN/Creatinine Ratio 15.2, Glucose 89, Calcium 7.8 L, TSH 3.76 H 01/01/23 23:12: Ammonia 295.0 H 01/01/23 23:20: POC Glucose 89 01/01/23 23:55: PT 15.4 H, INR 1.3, APTT 30.5 01/01/23 23:55: Salicylates < 1.7 L, Acetaminophen < 2.0 L, Ethyl Alcohol < 3.0 01/02/23 00:45: Urine Opiates Screen NEGATIVE, Urine Methadone Screen NEGATIVE, Ur Barbiturates Screen NEGATIVE, Ur Phencyclidine Scrn NEGATIVE, Ur Amphetamines Screen NEGATIVE, MDMA (Ecstasy) Screen NEGATIVE, U Benzodiazepines Scrn NEGATIVE, Urine Cocaine Screen NEGATIVE, U Cannabinoids Screen NEGATIVE, Ur Drug Screen Comment 01/02/23 00:45: Urine Color Mary, Urine Clarity Sl. Cloudy, Urine pH 5.0, Ur Specific [place] 1.020, Urine Protein 30 H, Urine Glucose (UA) Normal, Urine Ketones 5 H, Urine Occult Blood 150 H, Urine Nitrite Negative, Urine Bilirubin 3 H, Urine Urobilinogen 1 H, Ur Leukocyte Esterase 500 H, Urine RBC 0-5 SEEN, Urine WBC >100 SEEN, Ur Squamous Epith Cells 0-5 SEEN, Urine Bacteria 4+, Urine Mucus 0 SEEN 01/02/23 06:30: WBC 4.9, RBC 2.76 L, Hgb 9.7 L, Hct 29.8 L, MCV 108.0 H D, MCH 35.1 H, MCHC 32.6 D, RDW Std Deviation 84.7 H, RDW Coeff of Valentina 22.1 H, Plt Count 32 L*, MPV 10.8, Immature Gran % (Auto) 0.800, Neut % (Auto) 89.6 H, Lymph % (Auto) 5.5 L, [place] % (Auto) 3.9, Eos % (Auto) 0.0, Baso % (Auto) 0.2, Absolute Neuts (auto) 4.4, Absolute Lymphs (auto) 0.27 L, Nucleated RBC % 0, Differential Comment SCANNED, Diff Path Review May foll, Platelet Estimate MKD DEC, Anisocytosis 1+, Macrocytosis 1+ 01/02/23 06:30: Sodium 138, Potassium 4.4, Chloride 102, Carbon Dioxide 27.0, Anion Gap 9, BUN 55 H, Creatinine 3.80 H, Estim Creat Clear Calc 17.69, Est GFR (MDRD) Af Amer 16 L, Est GFR (MDRD) Non-Af 13 L, BUN/Creatinine Ratio 14.5, Glucose 238 H, Calcium 7.8 L, Magnesium 2.2, Total Bilirubin 1.40 H, AST 48 H, ALT 54, Alkaline Phosphatase 227 H, Total Protein 6.1 L, Albumin 1.6 L, Globulin 4.5 H, Albumin/Globulin Ratio 0.4 L 01/02/23 06:30: Ammonia 113.0 H ABG Data ABG results: ABG 01/01/23 23:13 Specimen Type ART Sample Site L Radial pH 7.47 H Bicarbonate Actual 28.1 H Total CO2 29 Base Excess 5 H O2 Saturation 95 ABG pCO2 38.5 ABG pO2 69 L Daniel Test Positive O2 Delivery Device Room Air Radiology Impression Brain CT 01/01/23 22:46 IMPRESSION: No acute intracranial abnormality. Electronically Signed: Beulah Akers MD at 23:54 EST , Chest X-Ray 01/01/23 23:38 IMPRESSION: There is large right pleural effusion with compressive atelectasis in the right lung is worsened the previous study. Electronically Signed: Beulah Akers MD at 0:25 EST , KUB X-Ray 01/02/23 00:13 IMPRESSION: Non-obstructive bowel gas pattern. Electronically Signed: Beulah Akers MD at 1:25 EST ,
[2023-01-02 12:10] LABS: Bedside Glucose 222 mg/dL (74-106)
[2023-01-02 12:47] LABS: Pathologist Review Reviewed
[2023-01-02 12:47] LABS: Pathologist Review Reviewed
--- NOTE | 2023-01-02 16:07 | NURSING ---
This RN talked to pts MARYAM Rodriguez, to notify of procedure tomorrow. Notified they will be needing consent tomorrow when take pt down for procedure and will be calling, MARYAM asks we first call cell listed in contacts and then try her work number [phone] and ask for her by name.
[2023-01-02 16:41] LABS: Bedside Glucose 102 mg/dL (74-106)
--- NOTE | 2023-01-02 16:56 | DIALYSIS ---
1650 Hemodialysis treatment x 3.5 hours today. Net UF 500 ml, limited by change in BV% approaching -15. VSS, no observed adverse S&S. Blood returned to patient at end of treatment, HD catheter ports closed with heparin (1.7 ml each lumen). Old HD catheter dressing removed, HD catheter insertion site cleaned and sterilized, new occlusive dressing with CHG gel pad applied. RN report given at bedside.
[2023-01-02] MEDS: Furosemide 40 MG/4 ML Vial IV (18:01)
[2023-01-02] MEDS: Heparin 10,000 UNITS/10 ML Vial IV (18:01)
[2023-01-02] MEDS: Lactulose 20 GM/30 ML UDC GT ×2 (18:01→22:53)
[2023-01-02] MEDS: Ondansetron 4 MG/2 ML Vial IV (22:15)
[2023-01-02] MEDS: 0.9% Saline Lock 10 ML Syringe IV (22:16)
[2023-01-02] MEDS: Sucralfate 1 GM Tablet GT (22:39)
[2023-01-03] VITALS (9 sets, daily range): BP systolic 88–141; BP diastolic 38–68; PULSE 74–89; RESP 16–30; TEMP 36.3–37.1; O2SAT 93–98
--- NOTE | 2023-01-03 | FLU_PTH ---
PATIENT: ANA GARCÍA LOC: [facility] U#:[id number] AGE/SX: 52/F ROOM: [facility] RE01/02/[address]: Dr. Rachel Nelson DO : 1970 BED: 1 DIS: 01/06/2023 SPEC #: [id number] RECD: 01/03/23 12:30 STATUS: VENTURA RERashid #: [id number] JOSE J: 01/03/23 00:[address]: Terry Parry DEPT: CYTOLOGY RECD BY: Nancy Zhou ENTERED: 01/03/23 14:01 SP TYPE: Fluid OTHR DR: MD Dr. Qi Angel MD Shannon Trzcinski, YVES-Art Tissues: Pleural fluid, NOS Procedures: Special Stain Group II Surgery Specimen Level IV Cytospin Fluid HEADER OPERATION: Thoracentesis PRE-OP DIAGNOSIS: Pleural effusion TISSUE SUBMITTED: Thoracentesis fluid for cytology DIAGNOSIS CYTOLOGY Thoracentesis fluid for cytology (cytospin and cell block): Negative for malignant cells. Acute inflammation. See comment. SJ:logan 01/04/2023 COMMENT The specimen predominantly consists of neutrophils. Correlation with clinical findings and appropriate follow up are necessary. CYTOLOGY STUDY Slides are reviewed. CYTOLOGY GROSS Received is 75 ml of dark arvizu cloudy fluid labeled with the patient's name and and designated per the requisition as thoracentesis. Submitted for cytology preparation including cell block. / logan 01/03/2023 TC:2 CPT: 78613, 22249
[2023-01-03 01:51] LABS: Bedside Glucose 143 mg/dL (74-106)
[2023-01-03 06:35] LABS: Absolute Lymphocyte Count 0.42 X10^3/uL (0.83-4.51); Basophil# 0.01 X10^3/uL; Basophil% 0.2 % (0-1); Eosinophil# 0.06 X10^3/uL; Eosinophils% 1.3 % (0-5); Hematocrit 33.9 % (37-47); Hemoglobin 10.7 g/dL (12.0-15.0); Lymphocyte # 0.42 X10^3/ul (0.83-4.51); Lymphocyte % 8.8 % (19-41); Mean Corp Hgb Conc 31.6 g/dL (32-36); Mean Corpuscular Hgb 35.8 pg (27.0-32.0); Mean Corpuscular Volume 113.4 fL (81-99); Mean Platelet Vol. 10.8 fl (6.2-12.0); Monocyte# 0.27 X10^3/uL; Monocyte% 5.6 % (0-10); NRBC Flagged by Analyzer 0 % (0-5); Neutrophil # 4.02 X10^3/uL (2.7-7.7); Neutrophil % 83.9 % (47-70); POSITIVE COUNT YES; POSITIVE DIFFERENTIAL YES; POSITIVE MORPHOLOGY YES; Platelet Count 60 K/mm3 (150-450); RBC Distribution Width CV 22.3 % (11.6-14.6); RBC Distribution Width SD 91.4 fl (35.1-43.9); Red Blood Count 2.99 M/mm3 (4.2-5.4); White Blood Count 4.8 K/mm3 (4.4-11.0)
[2023-01-03 06:43] LABS: Differential Indicated SCAN CRITERIA MET
[2023-01-03] MEDS: Lactulose 20 GM/30 ML UDC GT ×2 (06:46→12:49)
[2023-01-03 06:58] LABS: Differential Comment SCANNED
[2023-01-03 06:59] LABS: Anisocytosis 1+; Macrocytosis 1+; Microcytosis RARE; Platelet Estimate MOD DEC (ADEQ)
[2023-01-03 07:03] LABS: ALB/GLOB Ratio 0.4 RATIO (0.9-2.4); AST(SGOT) 36 U/L (15-37); Alanine Aminotransfer ALT/SGPT 52 U/L (13-56); Albumin, Serum 1.7 g/dL (3.2-5.0); Alkaline Phosphatase 216 U/L (45-117); Anion Gap 10 (5-15); BUN 30 mg/dL (7-18); BUN/Creat Ratio 11.5 RATIO (10-20); Bilirubin, Direct 0.73 mg/dL (0.00-0.30); Chloride 101 mmol/L (98-107); Creatinine, Serum 2.61 mg/dL (0.55-1.02); EST Glomerular Filtration Rate 20 mL/min (>60); Est Glom Filt Rate - Afr Amer 25 mL/min (>60); Estimated Creatinine Clearance 25.75 ml/min; Globulin 4.6 g/dL (2.2-4.2); Glucose 177 mg/dL (74-106); LDH 405 U/L (84-246); Potassium 3.6 mmol/L (3.5-5.1); Protein, Total 6.3 g/dL (6.4-8.2); Sodium Level 135 mmol/L (136-145)
[2023-01-03 07:15] LABS: Bedside Glucose 168 mg/dL (74-106)
[2023-01-03] MEDS: Menthol/Lanolin/Calamine/Znox 113 GM Tube 1 APPLIC TOPICAL ×2 (08:18→20:43)
[2023-01-03] MEDS: Ursodiol 250 MG Tablet GT ×2 (08:19→20:44)
[2023-01-03] MEDS: rifAXIMin 550 MG Tablet GT ×2 (08:19→20:45)
[2023-01-03] MEDS: Lansoprazole 15 MG Capsule.DR GT (08:20)
[2023-01-03] MEDS: Carvedilol 6.25 MG Tablet GT ×2 (08:20→20:46)
--- NOTE | 2023-01-03 08:20 | PN.RENAL_ITS ---
Subjective Subjective Resting in bed, alert to name but doesn't really follow commands. In no apparent distress Objective Data Objective Data Vital Signs: Vital Signs Temp Pulse Resp BP Pulse Ox O2 Del Method 98.8 F 89 20 H 141/66 H 93 Room Air 01/03/23 08:15 01/03/23 08:15 01/03/23 08:15 01/03/23 08:15 01/03/23 08:15 01/03/23 08:15 Oxygen Delivery Method Room Air Weight: 76.4 kg Body Mass Index (BMI) 25.0 Intake & Output: Intake and Output for Last 24 Hours 01/01/23 01/02/23 01/03/23 23:59 23:59 23:59 Intake Total 1500 / 1750 1250 / 1250 Output Total 0 / 0 Balance 1500 / 1750 1250 / 1250 Lab / Micro Data Result Diagrams: 01/03/23 05:29 01/03/23 05:29 Labs: Laboratory Results - last 24 hr 01/01/23 23:12: Diff Path Review Reviewed 01/02/23 06:30: Diff Path Review Reviewed 01/02/23 11:19: POC Glucose 222 H 01/02/23 16:19: POC Glucose 102 01/02/23 22:19: POC Glucose 143 H 01/03/23 05:29: WBC 4.8, RBC 2.99 L, Hgb 10.7 L, Hct 33.9 L, MCV 113.4 H, MCH 35.8 H, MCHC 31.6 L, RDW Std Deviation 91.4 H, RDW Coeff of Valentina 22.3 H, Plt Count 60 L, MPV 10.8, Immature Gran % (Auto) 0.200, Neut % (Auto) 83.9 H, Lymph % (Auto) 8.8 L, [place] % (Auto) 5.6, Eos % (Auto) 1.3, Baso % (Auto) 0.2, Absolute Neuts (auto) 4.0, Absolute Lymphs (auto) 0.42 L, Nucleated RBC % 0, Differential Comment SCANNED, Platelet Estimate MOD DEC, Anisocytosis 1+, Microcytosis RARE, Macrocytosis 1+ 01/03/23 05:29: Sodium 135 L, Potassium 3.6, Chloride 101, Carbon Dioxide 24.0, Anion Gap 10, BUN 30 H, Creatinine 2.61 H, Estim Creat Clear Calc 25.75, Est GFR (MDRD) Af Amer 25 L, Est GFR (MDRD) Non-Af 20 L, BUN/Creatinine Ratio 11.5, Glucose 177 H, Calcium 8.0 L, Total Bilirubin 2.30 H, Direct Bilirubin 0.73 H, AST 36, ALT 52, Alkaline Phosphatase 216 H, Lactate Dehydrogenase 405 H, Total Protein 6.3 L, Albumin 1.7 L, Globulin 4.6 H, Albumin/Globulin Ratio 0.4 L, Free T4 0.70 L 01/03/23 06:43: POC Glucose 168 H Physical Exam Narrative Resting quietly, no apparent distress S1, S2, RRR Diminished breath sounds on right side Abdomen soft, positive bowel sounds No edema to bilateral lower legs, trace edema bilateral hands NG tube intact Tunneled HD catheter dressing clean, dry and intact Assessment & Plan Assessment/Plan (1) ESRD (end stage renal disease): (2) Hepatic encephalopathy: PLAN: Plan - ESRD on hemodialysis Saturday at [facility]. Patient was started on dialysis October 13, 2022 at [facility]. There has been no evidence of renal recovery. Patient dialyzed yesterday, no acute indication for PICKER/PULLER today. We will plan for dialysis tomorrow over 3.5 hours with UF as pt/bp tolerates. EDW at [facility] 73.5kg. Reviewed CXR which showed large right pleural effusion. - History of cirrhosis.? As per last nephrology note, she was on list for simultaneous liver and kidney transplant but deactivated due to general debility and other illnesses. Platelet count 32. Patient does not receive heparin with dialysis. Has NG and receiving lactulose and Xifaxan. Last ammonia level has improved. Brain CT no acute intracranial abnormality. -Anemia of chronic disease. Will monitor hemoglobin trends, hemoglobin is 10.7. Patient receives MANINDER and iron at [facility]. -Blood pressures acceptable on carvedilol and torsemide. -Large right pleural effusion; patient to have thoracentesis today. -discussed nephrology plan with Dr. Parry
[2023-01-03] MEDS: Insulin Glargine-YFGN 100 UNIT/ML Pen 10 UNIT SC (08:43)
--- NOTE | 2023-01-03 08:45 | PN.HOSP_ITS ---
Reason for Visit Reason for Visit: Diagnoses Thrombocytopenia, unspecified (01/02/23) Schizoaffective disorder, depressive type (01/02/23) Autoimmune hepatitis (01/02/23) Hepatic encephalopathy (01/02/23) Chronic kidney disease, stage 3b (01/02/23) Subjective Subjective Follow-up for acute hepatic encephalopathy due to decompensated cirrhosis. Objective Data Objective Data Vital Signs: Vital Signs Temp Pulse Resp BP Pulse Ox O2 Del Method 98.8 F 89 20 H 141/66 H 93 Room Air 01/03/23 08:15 01/03/23 08:15 01/03/23 08:15 01/03/23 08:15 01/03/23 08:15 01/03/23 08:15 Oxygen Delivery Method Room Air Weight: 168 lb 6.931 oz Body Mass Index (BMI) 25.0 Intake & Output: Intake and Output for Last 24 Hours 01/01/23 01/02/23 01/03/23 23:59 23:59 23:59 Intake Total 1500 / 1750 1250 / 1250 Output Total 0 / 0 Balance 1500 / 1750 1250 / 1250 Lab / Micro Data Result Diagrams: 01/03/23 05:29 01/03/23 05:29 Labs: Laboratory Results - last 24 hr 01/01/23 23:12: Diff Path Review Reviewed 01/02/23 06:30: Diff Path Review Reviewed 01/02/23 11:19: POC Glucose 222 H 01/02/23 16:19: POC Glucose 102 01/02/23 22:19: POC Glucose 143 H 01/03/23 05:29: WBC 4.8, RBC 2.99 L, Hgb 10.7 L, Hct 33.9 L, MCV 113.4 H, MCH 35.8 H, MCHC 31.6 L, RDW Std Deviation 91.4 H, RDW Coeff of Valentina 22.3 H, Plt Count 60 L, MPV 10.8, Immature Gran % (Auto) 0.200, Neut % (Auto) 83.9 H, Lymph % (Auto) 8.8 L, [place] % (Auto) 5.6, Eos % (Auto) 1.3, Baso % (Auto) 0.2, Absolute Neuts (auto) 4.0, Absolute Lymphs (auto) 0.42 L, Nucleated RBC % 0, Differential Comment SCANNED, Platelet Estimate MOD DEC, Anisocytosis 1+, Microcytosis RARE, Macrocytosis 1+ 01/03/23 05:29: Sodium 135 L, Potassium 3.6, Chloride 101, Carbon Dioxide 24.0, Anion Gap 10, BUN 30 H, Creatinine 2.61 H, Estim Creat Clear Calc 25.75, Est GFR (MDRD) Af Amer 25 L, Est GFR (MDRD) Non-Af 20 L, BUN/Creatinine Ratio 11.5, Glucose 177 H, Calcium 8.0 L, Total Bilirubin 2.30 H, Direct Bilirubin 0.73 H, AST 36, ALT 52, Alkaline Phosphatase 216 H, Lactate Dehydrogenase 405 H, Total Protein 6.3 L, Albumin 1.7 L, Globulin 4.6 H, Albumin/Globulin Ratio 0.4 L, Free T4 0.70 L 01/03/23 06:43: POC Glucose 168 H Physical Exam Narrative Seen and examined. Mental status slightly better. Patient is awake, opens eyes spontaneously. Still confused and disoriented to time place and person. Varies between grade 2-3 encephalopathy Physical exam General: Awake, disoriented. Confused. Not verbal/communicative. HEENT: Atraumatic, PERRLA, EOMI, Normocephalic Oral: NG tube. No Gingival or Mucosal Lesions/ Ulcerations Neck: Supple, No JVD, Negative Carotid Bruits Lungs: Right thoracocentesis 1860 mL. No hypoxia or tachypnea. No crepitation/rhonchi Cardiovascular: Regular rate, Regular Rhythm, Normal S1, Normal S2, No murmurs Abdomen: Bowel Sounds Present, Soft, Non Tender, no significant ascites. : No renal angle tenderness. No suprapubic tenderness. Extremities: No edema, Capillary Refill Less than 3 Seconds Skin: No rashes, No breakdown Musculoskeletal: No Tenderness to Palpation of Joints or Extremities, moderate muscle atrophy of lower extremities Neurological: Complete neuro exam unobtainable. No focal acute neuro exam. Psych/Mental : Awake. Assessment & Plan Assessment/Plan (1) Hepatic encephalopathy: (2) Chronic kidney disease, stage 3b: (3) Schizoaffective disorder: QUALIFIERS: Schizoaffective disorder type: depressive Qualified Code(s): F25.1 - Schizoaffective disorder, depressive type (4) Autoimmune hepatitis: (5) Thrombocytopenia: PLAN: Plan This 52-year-old female with history of autoimmune cirrhosis, schizoaffective disorder CKD admitted with altered mental status, confusion, decreased responsiveness consistent with hepatic encephalopathy #Acute hepatic encephalopathy with history of decompensated autoimmune related hepatitis, severe thrombocytopenia right hepatic hydrothorax status post thoracocentesis in the past: Patient has NG tube. On lactulose and Xifaxan. On diuretic torsemide at home. Not candidate for spironolactone because potassium is 4.4 with chronic kidney disease. As per family patient is on transplant list in [facility]. Platelet count is 32,000, about the baseline 01/03: Grade 2-3 hepatic encephalopathy better than yesterday. Continue lactulose and Xifaxan. 2. 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 IR guided thoracocentesis tomorrow AM. Discussed with IR. Furosemide 40 mg IV ordered. 01/03: 1860 mL purulent fluid was drained. Patient does not have acute cough or fever. Started empirically on IV antibiotic, ceftriaxone. Continue spironolactone. Patient is on hemodialysis therefore furosemide is not going to work. 3. CKD stage V on hemodialysis: Patient was started on dialysis on 10/13/2022 at [facility]. Saturday. Director Of Capital Giving is consulted. Patient creatinine runs around 3.5-5.0. Director Of [employer] Giving is consulted. 01/03: Discussed with the electrical tests supervisor. #Type 2 diabetes mellitus: Glucose is elevated 222, BMP 238. Accu-Cheks and cover with Holden sliding scale plus Lantus 10 units subcutaneous daily. 01/03 glucoses/Accu-Cheks better. Dose of Lantus insulin increased. #Schizoaffective disorder: 01/03: Tegretol resumed yesterday. Latuda nonformulary. Hold Zoloft. #DVT ppx: SCDs Laboratory Results 01/02/23 16:19: POC Glucose 102 01/02/23 22:19: POC Glucose 143 H 01/03/23 05:29: WBC 4.8, RBC 2.99 L, Hgb 10.7 L, Hct 33.9 L, MCV 113.4 H, MCH 35.8 H, MCHC 31.6 L, RDW Std Deviation 91.4 H, RDW Coeff of Valentina 22.3 H, Plt Count 60 L, MPV 10.8, Immature Gran % (Auto) 0.200, Neut % (Auto) 83.9 H, Lymph % (Auto) 8.8 L, [place] % (Auto) 5.6, Eos % (Auto) 1.3, Baso % (Auto) 0.2, Absolute Neuts (auto) 4.0, Absolute Lymphs (auto) 0.42 L, Nucleated RBC % 0, Differential Comment SCANNED, Platelet Estimate MOD DEC, Anisocytosis 1+, Microcytosis RARE, Macrocytosis 1+ 01/03/23 05:29: Sodium 135 L, Potassium 3.6, Chloride 101, Carbon Dioxide 24.0, Anion Gap 10, BUN 30 H, Creatinine 2.61 H, Estim Creat Clear Calc 25.75, Est GFR (MDRD) Af Amer 25 L, Est GFR (MDRD) Non-Af 20 L, BUN/Creatinine Ratio 11.5, Glucose 177 H, Calcium 8.0 L, Total Bilirubin 2.30 H, Direct Bilirubin 0.73 H, AST 36, ALT 52, Alkaline Phosphatase 216 H, Lactate Dehydrogenase 405 H, Total Protein 6.3 L, Albumin 1.7 L, Globulin 4.6 H, Albumin/Globulin Ratio 0.4 L, Free T4 0.70 L 01/03/23 06:43: POC Glucose 168 H 01/03/23 08:42: POC Glucose 176 H 01/03/23 11:05: POC Glucose 182 H 01/03/23 : Fluid Glucose < 1 L*, Fluid Total Protein 3.0, Fluid LDH 2923 01/03/23 : Fluid Source THORACENTESIS, Fluid Color YELLOW, Fluid Appearance CLOUDY, Fluid WBC 73.650, Fluid RBC 0.055, Fluid Tot Cell Count 73.860 H, Fld Polynuclear WBCs # 79.115, Fld Polynuclear WBCs % 95.6, Fluid Mononuclear WBCs 3.573, Fld Mononuclear WBCs % 4.4, Fluid Neutrophils 73, Fluid Lymphocytes 11, Fluid Monocytes 16, Fl Pathologist Comment May follow, Fluid Comment 2 SEE COMMENT 01/03/23 : Miscellaneous Cytology Pending 01/03/23 : Fluid Specific Grav 1.020 Charges/Coding Visit Charges Inpatient E&M: 14650 Subs Hosp L3
[2023-01-03 09:36] LABS: Bedside Glucose 176 mg/dL (74-106)
[2023-01-03 12:06] LABS: Bedside Glucose 182 mg/dL (74-106)
--- NOTE | 2023-01-03 12:24 | RAD_ITS ---
STUDY: X-RAY CHEST REASON FOR EXAM: Female, 52 years old. thora TECHNIQUE: AP inspiration and expiration views. COMPARISON: Comparison is made with prior study dated 01/01/2023. FINDINGS: The patient is status post right thoracentesis. No evidence of pneumothorax. Residual right pleural parenchymal changes. A TIPS catheter is seen within the right upper quadrant. RAD/Chest Insp/Exp 2 View IMPRESSION: No evidence of pneumothorax. Residual pleural parenchymal changes in the right hemithorax. Electronically Signed: Dash Shin MD at 12:41 EST ,
[2023-01-03 12:37] LABS: Cytology, Body Fluid / CSF SEE PATHOLOGY REPORT
[2023-01-03] MEDS: Spironolactone 25 MG Tablet PO (12:49)
[2023-01-03 13:59] LABS: Glucose, Body Fluid < 1 mg/dL (40-70); LDH,Body Fluid 2923 Units/l (Not Establ.)
--- NOTE | 2023-01-03 14:12 | US_ITS ---
PROCEDURE: ULTRASOUND GUIDED THORACENTESIS. DATE: 01/03/2023. INDICATION: Female, 52 years old. Ascites. PHYSICIAN: Dash Shin M.D. PROCEDURE: The risks, benefits, and alternatives to the procedure were explained to the patient. The specific risks of bleeding, infection, and pneumothorax requiring chest tube insertion were discussed and accepted. Written informed consent was obtained. Ultrasonographic evaluation of the right lower pleural space was carried out. An adequate pocket was identified. The patient was placed in the sitting, upright position. The overlying skin was prepped and draped in sterile fashion. 1% lidocaine was administered subcutaneously for local anesthesia. Under ultrasound guidance, a 5 Kiswahili thoracentesis needle/catheter system was advanced into the right posterior lower pleural fluid collection. Approximately 1860 mL of purulent fluid was drained. The catheter was removed, and a sterile dressing was applied. A specimen was collected and sent to the laboratory for analysis, as requested by the referring clinician. The patient tolerated the procedure well. A chest x-ray was ordered. US/Thoracentesis W US IMPRESSION: Ultrasound-guided right thoracentesis. Electronically Signed: Dash Shin MD at 12:45 EST ,
[2023-01-03 14:36] LABS: Auto B Fluid Analyzer BKGD Ct COUNTS W/IN LIMITS (W/IN LIMITS); Source- Body Fluid THORACENTESIS
[2023-01-03 14:37] LABS: Appearance/Body Fluid CLOUDY; Color/Body Fluid YELLOW
[2023-01-03 14:48] LABS: Red Cell Count/Body Fluid 0.055 10^6/ul
[2023-01-03 14:50] LABS: Body Fluid Mononuclear WBC % 4.4 %; Body Fluid Polynuclear WBC % 95.6 %
[2023-01-03 14:51] LABS: Body Fluid Mononuclear WBC # 3.573 10^3/uL
[2023-01-03] MEDS: Acetaminophen 650 MG/20 ML UDC GT (14:54)
[2023-01-03 14:59] LABS: Lymphocytes 11 %; Monocytes 16 %; Neutrophil (Segs) 73 %
[2023-01-03 15:29] LABS: Body Fluid QC Type(s) BF1Q
[2023-01-03] MEDS: Ceftriaxone 1 GM/50 ML BAG IV (16:16)
[2023-01-03 17:06] LABS: Bedside Glucose 187 mg/dL (74-106)
[2023-01-03] MEDS: Hydrocortisone 25 MG Suppository RC (20:26)
[2023-01-03] MEDS: Sucralfate 1 GM Tablet GT (20:45)
[2023-01-04 02:26] LABS: Bedside Glucose 162 mg/dL (74-106)
[2023-01-04 02:50] VITALS: BP 122/59; PULSE 79; RESP 18; TEMP 36.4; O2SAT 98
[2023-01-04 06:00] VITALS: BP 122/59; PULSE 81; RESP 16; TEMP 36.4; O2SAT 98
[2023-01-04] MEDS: Levothyroxine 88 MCG Tablet PO (06:23)
[2023-01-04] MEDS: Lactulose 20 GM/30 ML UDC GT (06:25)
[2023-01-04 07:19] LABS: Ammonia < 10.0 umol/L (11-32)
[2023-01-04 07:23] LABS: AST(SGOT) 31 U/L (15-37); Alanine Aminotransfer ALT/SGPT 43 U/L (13-56); Albumin, Serum 1.5 g/dL (3.2-5.0); Alkaline Phosphatase 180 U/L (45-117); BUN 42 mg/dL (7-18); BUN/Creat Ratio 11.9 RATIO (10-20); Bilirubin, Direct 1.01 mg/dL (0.00-0.30); Calcium,Total 7.8 mg/dL (8.5-10.1); Chloride 100 mmol/L (98-107); Creatinine, Serum 3.54 mg/dL (0.55-1.02); EST Glomerular Filtration Rate 14 mL/min (>60); Est Glom Filt Rate - Afr Amer 17 mL/min (>60); Estimated Creatinine Clearance 18.99 ml/min; Globulin 4.1 g/dL (2.2-4.2); Glucose 153 mg/dL (74-106); Phosphorus 4.6 mg/dL (2.5-4.9); Potassium 3.6 mmol/L (3.5-5.1); Protein, Total 5.6 g/dL (6.4-8.2); Sodium Level 135 mmol/L (136-145)
[2023-01-04 08:01] LABS: Bedside Glucose 131 mg/dL (74-106)
[2023-01-04 08:39] VITALS: BP 104/55; PULSE 79; RESP 18; TEMP 36.4; O2SAT 98
--- NOTE | 2023-01-04 09:14 | PN.RENAL_ITS ---
Subjective Subjective Seen and examined at the start of dialysis. No acute distress. More alert and awake this morning. Objective Data Objective Data Vital Signs: Vital Signs Temp Pulse Resp BP Pulse Ox O2 Del Method 97.5 F L 79 18 104/55 L 98 Room Air 01/04/23 08:39 01/04/23 08:39 01/04/23 08:39 01/04/23 08:39 01/04/23 08:39 01/04/23 08:39 Oxygen Delivery Method [4] Room Air Oxygen Delivery Method [3] Room Air Oxygen Delivery Method [2] Room Air Oxygen Delivery Method [1 ( Room Air Initial Baseline)] Oxygen Delivery Method Room Air Weight: 72.2 kg Body Mass Index (BMI) 25.0 Intake & Output: Intake and Output for Last 24 Hours 01/02/23 01/03/23 01/04/23 23:59 23:59 23:59 Intake Total 1500 / 1750 2340 / 2340 1000 / 1000 Output Total 0 / 0 1860 / 1860 Balance 1500 / 1750 480 / 480 1000 / 1000 Lab / Micro Data Result Diagrams: 01/03/23 05:29 01/04/23 06:50 Labs: Laboratory Results - last 24 hr 01/03/23 08:42: POC Glucose 176 H 01/03/23 11:05: POC Glucose 182 H 01/03/23 16:08: POC Glucose 187 H 01/03/23 20:42: POC Glucose 162 H 01/03/23 : Fluid Glucose < 1 L*, Fluid Total Protein 3.0, Fluid LDH 2923 01/03/23 : Fluid Source THORACENTESIS, Fluid Color YELLOW, Fluid Appearance CLOUDY, Fluid WBC 73.650, Fluid RBC 0.055, Fluid Tot Cell Count 73.860 H, Fld Polynuclear WBCs # 79.115, Fld Polynuclear WBCs % 95.6, Fluid Mononuclear WBCs 3.573, Fld Mononuclear WBCs % 4.4, Fluid Neutrophils 73, Fluid Lymphocytes 11, Fluid Monocytes 16, Fl Pathologist Comment May follow, Fluid Comment 2 SEE COMMENT 01/03/23 : Fluid Specific Grav 1.020 01/04/23 06:34: POC Glucose 131 H 01/04/23 06:50: Sodium 135 L, Potassium 3.6, Chloride 100, Carbon Dioxide 24.0, BUN 42 H, Creatinine 3.54 H, Estim Creat Clear Calc 18.99, Est GFR (MDRD) Af Amer 17 L, Est GFR (MDRD) Non-Af 14 L, BUN/Creatinine Ratio 11.9, Glucose 153 H, Calcium 7.8 L, Phosphorus 4.6, Total Bilirubin 1.80 H, Direct Bilirubin 1.01 H, AST 31, ALT 43, Alkaline Phosphatase 180 H, Total Protein 5.6 L, Albumin 1.5 L, Globulin 4.1 01/04/23 06:50: Ammonia < 10.0 L Radiography Diagnostic Testing: Radiology Impression Chest X-Ray 01/03/23 12:24 IMPRESSION: No evidence of pneumothorax. Residual pleural parenchymal changes in the right hemithorax. Electronically Signed: Dash Shin MD at 12:41 EST , Thoracentesis Ultrasound 01/03/23 14:12 IMPRESSION: Ultrasound-guided right thoracentesis. Electronically Signed: Dash Shin MD at 12:45 EST , Physical Exam Narrative Resting quietly, no apparent distress S1, S2, RRR Lung sounds clear anteriorly, no wheezes, rhonchi or rales noted Abdomen soft, positive bowel sounds No edema to bilateral lower legs, trace edema bilateral hands NG tube intact Tunneled HD catheter dressing clean, dry and intact Assessment & Plan Assessment/Plan (1) ESRD (end stage renal disease): (2) Hepatic encephalopathy: PLAN: Plan - ESRD on hemodialysis Saturday at [facility]. Patient was started on dialysis October 13, 2022 at [facility]. There has been no evidence of renal recovery. We will plan for dialysis today over 3.5 hours with UF as pt/bp tolerates, possibly around 1 L. EDW at kidney center 73.5kg. - History of cirrhosis.? Mental status improving. As per last nephrology note, she was on list for simultaneous liver and kidney transplant but deactivated due to general debility and other illnesses. Platelet count low Patient does not receive heparin with dialysis. Has NG and receiving lactulose and Xifaxan. Last ammonia level has improved. Brain CT no acute intracranial abnormality. -Anemia of chronic disease. Will monitor hemoglobin trends, hemoglobin is 10.7. Patient receives MANINDER and iron at kidney Center. -Blood pressures acceptable on carvedilol and Aldactone -Large right pleural effusion; underwent thoracentesis yesterday with around 1.8 L fluid removed -discussed nephrology plan with Dr. Parry
--- NOTE | 2023-01-04 10:48 | CASEMGMT ---
MARIANA sent updates to [place] via [facility]. MARIANA also let Renita know that patient may return over the weekend. Green sheet on chart. Plan: d/c back to [place] under intermediate level of care. Cora MARIEE
--- NOTE | 2023-01-04 10:53 | NURSING ---
[address] Parry's verbal order, I took out patient's NG tube. Patient tolerated well. Patient now requesting food and drink. Diet order soon to follow.
--- NOTE | 2023-01-04 11:32 | PCM.PN.HOSP ---
Reason for Visit Reason for Visit: Diagnoses Follow-up for empyema, acute hepatic encephalopathy due to decompensated cirrhosis and hepatic hydrothorax. ESKD on hemodialysis. Thrombocytopenia, unspecified (01/02/23) Schizoaffective disorder, depressive type (01/02/23) Autoimmune hepatitis (01/02/23) Hepatic encephalopathy (01/02/23) Chronic kidney disease, stage 3b (01/02/23) Objective Data Objective Data Vital Signs: Vital Signs Temp Pulse Resp BP Pulse Ox O2 Del Method 97.5 F L 79 18 104/55 L 98 Room Air 01/04/23 08:39 01/04/23 08:39 01/04/23 08:39 01/04/23 08:39 01/04/23 08:39 01/04/23 08:39 Oxygen Delivery Method [4] Room Air Oxygen Delivery Method [3] Room Air Oxygen Delivery Method [2] Room Air Oxygen Delivery Method [1 ( Room Air Initial Baseline)] Oxygen Delivery Method Room Air Weight: 159 lb 2.78 oz Body Mass Index (BMI) 25.0 Intake & Output: Intake and Output for Last 24 Hours 01/02/23 01/03/23 01/04/23 23:59 23:59 23:59 Intake Total 1500 / 1750 2340 / 2340 1000 / 1000 Output Total 0 / 0 1860 / 1860 Balance 1500 / 1750 480 / 480 1000 / 1000 Lab / Micro Data Result Diagrams: 01/03/23 05:29 01/04/23 06:50 Labs: Laboratory Results - last 24 hr 01/03/23 11:05: POC Glucose 182 H 01/03/23 16:08: POC Glucose 187 H 01/03/23 20:42: POC Glucose 162 H 01/03/23 : Fluid Glucose < 1 L*, Fluid Total Protein 3.0, Fluid LDH 2923 01/03/23 : Fluid Source THORACENTESIS, Fluid Color YELLOW, Fluid Appearance CLOUDY, Fluid WBC 73.650, Fluid RBC 0.055, Fluid Tot Cell Count 73.860 H, Fld Polynuclear WBCs # 79.115, Fld Polynuclear WBCs % 95.6, Fluid Mononuclear WBCs 3.573, Fld Mononuclear WBCs % 4.4, Fluid Neutrophils 73, Fluid Lymphocytes 11, Fluid Monocytes 16, Fl Pathologist Comment May follow, Fluid Comment 2 SEE COMMENT 01/03/23 : Fluid Specific Grav 1.020 01/04/23 06:34: POC Glucose 131 H 01/04/23 06:50: Sodium 135 L, Potassium 3.6, Chloride 100, Carbon Dioxide 24.0, BUN 42 H, Creatinine 3.54 H, Estim Creat Clear Calc 18.99, Est GFR (MDRD) Af Amer 17 L, Est GFR (MDRD) Non-Af 14 L, BUN/Creatinine Ratio 11.9, Glucose 153 H, Calcium 7.8 L, Phosphorus 4.6, Total Bilirubin 1.80 H, Direct Bilirubin 1.01 H, AST 31, ALT 43, Alkaline Phosphatase 180 H, Total Protein 5.6 L, Albumin 1.5 L, Globulin 4.1 01/04/23 06:50: Ammonia < 10.0 L Micro: Microbiology 01/03/23 Unknown Fluid - Thoracentesis Fluid Body Fluid Culture - Preliminary GNR lactose supervisor burling and joining Radiography Diagnostic Testing: Radiology Impression Chest X-Ray 01/03/23 12:24 IMPRESSION: No evidence of pneumothorax. Residual pleural parenchymal changes in the right hemithorax. Thoracentesis Ultrasound 01/03/23 14:12 IMPRESSION: Ultrasound-guided right thoracentesis. Physical Exam Narrative Seen and examined. Patient is awake, talking, oriented and responding to questions appropriately. She is having loose bowel movement from lactulose. Lactulose dose decreased. Purulent fluid on thoracocentesis and Gram stain 3+ GNR. Physical exam General: Awake, oriented x3. But still slow to respond HEENT: Atraumatic, PERRLA, EOMI, Normocephalic Oral: NG tube removed. No Gingival or Mucosal Lesions/ Ulcerations Neck: Supple, No JVD, Negative Carotid Bruits Lungs: Right thoracocentesis 1860 mL purulent fluid. No hypoxia or tachypnea. No crepitation/rhonchi. Air entry improved on right upper chest. Cardiovascular: Regular rate, Regular Rhythm, Normal S1, Normal S2, No murmurs Abdomen: Bowel Sounds Present, Soft, Non Tender, no significant ascites. : No renal angle tenderness. No suprapubic tenderness. Extremities: No edema, Capillary Refill Less than 3 Seconds Skin: Petechial rash on both upper thigh from admission. Thrombocytopenia. Musculoskeletal: No Tenderness to Palpation of Joints or Extremities, moderate muscle atrophy of lower extremities Neurological: No focal acute neuro exam. Muscle strength 4/5 in lower extremities. Psych/Mental : Awake. Flat affect. Assessment & Plan Assessment/Plan (1) Hepatic encephalopathy: (2) Chronic kidney disease, stage 3b: (3) Schizoaffective disorder: QUALIFIERS: Schizoaffective disorder type: depressive Qualified Code(s): F25.1 - Schizoaffective disorder, depressive type (4) Autoimmune hepatitis: (5) Thrombocytopenia: PLAN: Plan This 52-year-old female with history of autoimmune cirrhosis, schizoaffective disorder CKD admitted with altered mental status, confusion, decreased responsiveness consistent with hepatic encephalopathy #Acute hepatic encephalopathy with history of decompensated autoimmune related hepatitis, severe thrombocytopenia, right hepatic hydrothorax status post thoracocentesis in the past: Patient has NG tube. On lactulose and Xifaxan. On diuretic torsemide at home. Not candidate for spironolactone because potassium is 4.4 with chronic kidney disease. As per family patient is on transplant list in [facility]. Platelet count is 32,000, about the baseline 01/03: Grade 2-3 hepatic encephalopathy better than yesterday. Continue lactulose and Xifaxan. 2. Right-sided empyema, pyothorax. History of recurrent right hepatic hydrothorax: ABG was done which showed 7.4 / showing mild hypoxia with increased Aa gradient. IR guided thoracocentesis tomorrow AM. Discussed with IR. Furosemide 40 mg IV ordered. 01/03: 1860 mL purulent fluid was drained. Patient does not have acute cough or fever. Started empirically on IV antibiotic, ceftriaxone. Continue spironolactone. Patient is on hemodialysis therefore furosemide is not going to work. 01/04: Gram stain shows 3+ GNR. Patient already on IV antibiotic. CT chest without contrast ordered. Discussed with steam distribution supervisor, surgeon for chest tube and ID and consult requested. 3. CKD stage V on hemodialysis: Patient was started on dialysis on 10/13/2022 at [facility]. Saturday. Impression Printer is consulted. Patient creatinine runs around 3.5-5.0. Impression Printer is consulted. 01/03: Discussed with the hog driver. 01/04: Urine culture shows [id number] VRE, not in pathology range and therefore decided not to treat. ID agrees. #Type 2 diabetes mellitus: Glucose is elevated 222, BMP 238. Accu-Cheks and cover with Lockridge sliding scale plus Lantus 10 units subcutaneous daily. 01/03 glucoses/Accu-Cheks better. Dose of Lantus insulin increased. 01/04 glucose controlled #Schizoaffective disorder: 01/03: Tegretol resumed yesterday. Latuda nonformulary. Hold Zoloft. #DVT ppx: SCDs Total time of the visit including total time spent in counseling or coordination of care, (more than 50% of the total time, spent in obtaining medical information from nurses and other ancillary care providers,explaining to the patient about labs, imaging, diagnosis and management of active complex medical conditions), discussion with steam distribution supervisor, surgeon, ID and hog driver, review of labs and imaging is 50 minutes per Clinical Impression(s) from Imaging Studies Brain CT 01/01/23 22:46 IMPRESSION: No acute intracranial abnormality. Electronically Signed: Beulah Akers MD at 23:54 EST , Chest X-Ray 01/01/23 23:38 IMPRESSION: There is large right pleural effusion with compressive atelectasis in the right lung is worsened the previous study. Electronically Signed: Beulah Akers MD at 0:25 EST , KUB X-Ray 01/02/23 00:13 IMPRESSION: Non-obstructive bowel gas pattern. Electronically Signed: Beulah Akers MD at 1:25 EST , Chest X-Ray 01/03/23 12:24 IMPRESSION: No evidence of pneumothorax. Residual pleural parenchymal changes in the right hemithorax. Electronically Signed: Dash Shin MD at 12:41 EST , Thoracentesis Ultrasound 01/03/23 14:12 IMPRESSION: Ultrasound-guided right thoracentesis. Charges/Coding Visit Charges Inpatient E&M: 56024 Subs Hosp L3
--- NOTE | 2023-01-04 11:47 | CT_ITS ---
STUDY: CT CHEST WITHOUT CONTRAST REASON FOR EXAM: Female, 52 years old. Empyema, s/p thoracocentesis -- cirrhosis with pleural effusion RADIATION DOSAGE (If Supplied By Facility): CTDIvol = ( 7.07 ) mGy, DLP = ( 409.81 ) mGycm TECHNIQUE: Transaxial imaging was performed without the administration of intravenous contrast material. Multiplanar coronal and sagittal images were reformatted. Individualized dose optimization techniques were used for this CT. COMPARISON: No relevant priors. FINDINGS: CHEST A right-sided central catheter is seen in the superior vena cava. There is a large right pleural effusion with almost complete collapse of the right lung. Tiny air bubbles are seen scattered throughout the pleural effusion due to recent thoracentesis. The left lung is clear. There are calcifications of the coronary arteries. There are multiple small lymph nodes within the mediastinum, which are normal in size and morphology most compatible with reactive lymph hyperplasia. Normal hilar regions. Normal unenhanced pulmonary arteries. There is atherosclerotic calcification of the aortic arch with tortuosity and elongation of the aortic arch and descending thoracic aorta. 20% loss of height of the superior endplate of a mid dorsal vertebrae. Ascites. Small liver and cuboid for cirrhosis. Status post cholecystectomy. A TIPS catheter is seen within the liver. CT/Chest without Contrast IMPRESSION: Large right pleural effusion with almost collapse of the right lung. Ascites. Findings suggestive of cirrhosis of the liver. Electronically Signed: Dash Shin MD at 14:18 EST ,
[2023-01-04 12:20] LABS: Bedside Glucose 91 mg/dL (74-106)
--- NOTE | 2023-01-04 12:40 | DIALYSIS ---
Hemodialysis x 3.5 hours completed this day. UF 150 ml due to BV percent decline and crit line. Report given to Luz Elena louis. Patient stable and alert.
[2023-01-04 12:41] LABS: Pathologist Comment/Body Fluid Reviewed
--- NOTE | 2023-01-04 14:08 | CON.PCM.ID_ITS ---
Assessment & Plan Assessment/Plan (1) ESRD (end stage renal disease): (2) Cirrhosis of liver: (3) Empyema: PLAN: Suspected empyema. 01/03/23 thoracentesis with 73 wbc, 79% poly. Cx with GNR. Will cover with vanc/cefepime for now. Pulm and surgery to see. CT chest pending. Will follow, thank you HPI Consult Data Date of Consult: 01/04/23 HPI Narrative Reason for Consultation: empyema HPI Narrative: ANA GARCÍA, is a 52 F with ESRD, DM, autoimmune cirrhosis, gets intermittent thoracentesis. Admitted 01/02 from [facility] due to acute onset altered mental status. Has R chest permacath. Denies fever or chills. Had some dyspnea, no cough or sputum. Taken for thoracentesis 01/03 with purulent fluid drained, cx with GNR. Started on ceftriaxone last afternoon. Feeling ok this AM. Full ROS performed and neg except as noted above. [facility]LY [facility] Medical History Acute on chronic anemia Acute on chronic renal insufficiency Anemia Autoimmune hepatitis Bacteremia due to methicillin resistant Staphylococcus epidermidis Bipolar disorder CHI (closed head injury) Chronic pain Chronic renal insufficiency, stage III (moderate) Cirrhosis of liver Debility Depression Diabetes mellitus, type 2 Encephalopathy acute Essential hypertension Reilly's thyroiditis Hepatic encephalopathy Hepatitis Hypothyroidism Kidney disease MRSA bacteremia Myocardial infarct Non-smoker On home oxygen therapy Pancreatitis Pancytopenia Peripheral neuropathy Right lower lobe pneumonia Schizoaffective disorder Severe sepsis Splenomegaly Stage 3b chronic kidney disease (CKD) Weakness Home Medications rifaximin 550 mg tablet (Xifaxan) 550 mg PO BID IBS 11/04/17 [History Last Taken 06/14/22] sertraline 50 mg tablet 75 mg PO QHS DEPRESSION 03/20/21 [History Last Taken 06/14/22] sucralfate 1 gram tablet (Carafate) 1 g PO QHS STOMACH 03/20/21 [History Last Taken 06/14/22] ursodiol 300 mg capsule 300 mg PO BID LIVER 04/25/21 [History Last Taken 06/14/22] carbamazepine 100 mg tablet,extended release,12 hr 100 mg PO BID bipolar 04/29/21 [History Last Taken 06/14/22] zinc 50 mg tablet 50 mg PO DAILY SUPPLEMENT 09/18/21 [History Last Taken 06/14/22] carvedilol 3.125 mg tablet 6.25 mg PO BID HEART 03/23/22 [History Last Taken 06/14/22] lurasidone 40 mg tablet 40 mg PO LUNCH MOOD 04/16/22 [History Last Taken 06/14/22] torsemide 20 mg tablet 80 mg PO DAILY diuretic 04/16/22 [History Last Taken 06/14/22] ergocalciferol (vitamin D2) 1,250 mcg (50,000 unit) capsule (Vitamin D2) 1,250 unit PO MOTH supplement 05/14/22 [History Last Taken 06/14/22] insulin lispro 100 unit/mL subcutaneous pen (Humalog KwikPen (U-100) Insulin) 7 unit subcut ACHS diabetes 05/14/22 [History Last Taken 06/14/22] levothyroxine 75 mcg tablet 75 mcg PO DAILY THYROID 05/14/22 [History Last Taken 06/14/22] ondansetron 4 mg disintegrating tablet 8 mg PO Q8H PRN Nausea And Vomiting 05/14/22 [History Last Taken 06/13/22] lactulose 20 gram/30 mL oral solution 20 g PO BID liver failure 06/11/22 [History Last Taken 06/14/22] ascorbic acid (vitamin C) 500 mg tablet 500 mg PO DAILY supplement 11/03/22 [History Last Taken Unknown] bisacodyl 10 mg rectal suppository 10 mg SD DAILY PRN Constipation 11/03/22 [History Last Taken Unknown] darbepoetin sree in polysorbat 40 mcg/0.4 mL in polysorbate injection syringe 40 mcg subcut QWEEK bone marrow 11/03/22 [History Last Taken Unknown] dextromethorphan HBr 10 mg/15 mL oral syrup 10 mg PO Q6H PRN Cough 11/03/22 [History Last Taken Unknown] insulin degludec 100 unit/mL (3 mL) subcutaneous pen (Tresiba FlexTouch U-100 insulin) 10 unit subcut DAILY diabetes 11/03/22 [History Last Taken Unknown] insulin glargine 100 unit/mL (3 mL) subcutaneous pen (Lantus Solostar U-100 Insulin) 10 unit subcut DAILY DM2 11/03/22 [History Last Taken Unknown] magnesium hydroxide 400 mg/5 mL oral suspension (Milk of Magnesia) 2,400 mg PO DAILY PRN Constipation 11/03/22 [History Last Taken Unknown] cefdinir 300 mg capsule 300 mg PO BID #10 caps 12/11/22 [Rx Last Taken Unknown] omeprazole 20 mg capsule,delayed release 20 mg PO DAILY GERD 12/14/22 [History Last Taken Unknown] dexamethasone 4 mg tablet 6 mg PO DAILY Renal Disease 01/02/23 [History Last Taken Unknown] guaifenesin 400 mg tablet 400 mg PO DAILY Congestion 01/02/23 [History Last Taken Unknown] hydrocortisone acetate 25 mg rectal suppository (Anusol-HC) 25 mg SD BID Hemorrhoids 01/02/23 [History Last Taken Unknown] Allergy/AdvReac Type Severity Reaction Status Date / Time adhesive Allergy Rash Verified 01/01/23 23:04 escitalopram oxalate Allergy blindness Verified 01/01/23 23:04 [From Lexapro] Fish Containing Products Allergy Other Verified 01/01/23 23:04 gabapentin [From Neurontin] Allergy Alan Verified 01/01/23 23:04 Jez's Syndrome lamotrigine [From Lamictal] Allergy Blindness Verified 01/01/23 23:04 metformin Allergy PT UNSURE Verified 01/01/23 23:04 OF REACTION topiramate [From Topamax] Allergy Other Verified 01/01/23 23:04 sour cream AdvReac Severe Anaphylaxis Uncoded 12/14/22 17:39 Preservatives AdvReac Intermediate passed Uncoded 01/01/23 23:04 out, lungs deflated Family History Father CVA (cerebral vascular accident) Myocardial infarction Heart disease CAD (coronary artery disease) Grandmother CHF (congestive heart failure) Sister Hypertension Mother Heart disease Surgical History H/O: hysterectomy History of abdominal paracentesis (10/2019) History of appendectomy History of cholecystectomy S/P TIPS (transjugular intrahepatic portosystemic shunt) Social History household members: significant other housing: house Smoking Status: Never smoker alcohol intake: never details: Unknown substance use type: does not use Physical Exam Const alert, oriented x3 and no apparent distress General Appearance: cooperative HEENT normocephalic Eyes PERRL and EOMs intact bilaterally Neck supple and No nodes Resp clear to auscultation bilaterally Auscultation: diminished lung sounds Cardio regular rate and regular rhythm GI soft to palpation and non-tender Extremity General Extremity: edema Skin no rashes or lesions noted Neuro CN's II-XII intact bilaterally Lab / Micro Data Attestation: I reviewed the patient's lab results. Result Diagrams: 01/03/23 05:29 01/04/23 06:50 Labs: Laboratory Results - last 24 hr 01/03/23 16:08: POC Glucose 187 H 01/03/23 20:42: POC Glucose 162 H 01/03/23 : Fluid Source THORACENTESIS, Fluid Color YELLOW, Fluid Appearance CLOUDY, Fluid WBC 73.650, Fluid RBC 0.055, Fluid Tot Cell Count 73.860 H, Fld Polynuclear WBCs # 79.115, Fld Polynuclear WBCs % 95.6, Fluid Mononuclear WBCs 3.573, Fld Mononuclear WBCs % 4.4, Fluid Neutrophils 73, Fluid Lymphocytes 11, Fluid Monocytes 16, Fl Pathologist Comment Reviewed, Fluid Comment 2 SEE COMMENT 01/04/23 06:34: POC Glucose 131 H 01/04/23 06:50: Sodium 135 L, Potassium 3.6, Chloride 100, Carbon Dioxide 24.0, BUN 42 H, Creatinine 3.54 H, Estim Creat Clear Calc 18.99, Est GFR (MDRD) Af Amer 17 L, Est GFR (MDRD) Non-Af 14 L, BUN/Creatinine Ratio 11.9, Glucose 153 H, Calcium 7.8 L, Phosphorus 4.6, Total Bilirubin 1.80 H, Direct Bilirubin 1.01 H, AST 31, ALT 43, Alkaline Phosphatase 180 H, Total Protein 5.6 L, Albumin 1.5 L, Globulin 4.1 01/04/23 06:50: Ammonia < 10.0 L 01/04/23 12:00: POC Glucose 91 Micro: Microbiology 01/03/23 Unknown Fluid - Thoracentesis Fluid Gram Stain - Final 01/03/23 Unknown Fluid - Thoracentesis Fluid Body Fluid Culture - Preliminary GNR lactose seafood technology specialist
[2023-01-04 14:13] VITALS: BP 110/58; PULSE 88; RESP 15; TEMP 36.4; O2SAT 99
[2023-01-04] MEDS: Menthol/Lanolin/Calamine/Znox 113 GM Tube 1 APPLIC TOPICAL ×2 (14:22→21:43)
[2023-01-04] MEDS: Spironolactone 25 MG Tablet PO (14:23)
[2023-01-04] MEDS: Ursodiol 250 MG Tablet GT ×2 (14:24→21:40)
[2023-01-04] MEDS: Ascorbic Acid 500 MG Tablet PO (14:24)
[2023-01-04] MEDS: Lansoprazole 15 MG Capsule.DR GT (14:24)
[2023-01-04] MEDS: rifAXIMin 550 MG Tablet GT ×2 (14:24→21:40)
[2023-01-04] MEDS: Carvedilol 6.25 MG Tablet GT ×2 (14:25→21:41)
--- NOTE | 2023-01-04 14:34 | EX.PCM.CONCC ---
Assessment & Plan Assessment/Plan (1) Empyema: (2) Cirrhosis of liver: (3) Thrombocytopenia: PLAN: Plan RECOMMENDATIONS: 1. Initiate antibiotics GISELA 2. Chest tube per general surgery 3. Monitor for hypotension following cefepime 4. Cannot exclude the need to transfer to intensive care unit for pressor therapy 5. May need transfer to a tertiary center pending response to chest tube 6. Continue lactulose and rifaximin 7. Hemodialysis per nephrology 8. Chest x-ray following chest tube IMPRESSIONS: 1. Right empyema Chest x-ray shows significant right pleural effusion on presentation. Patient with almost 2 L removed yesterday with labs consistent with empyema. Repeat imaging today shows significant amount of residual fluid. Patient was recently admitted with Klebsiella aerogenes that was sensitive to ceftriaxone. However, significant concern patient may have gram-negative syndrome following cefepime. Cannot exclude the need for pressors. Patient does have an element of relative immunosuppression secondary to cirrhosis and end-stage renal disease. Cannot exclude the patient will require transfer to a tertiary center for evaluation by CT surgery. We will await the response to the chest tube. Unclear if patient's TIPS procedure could potentially be infected given proximity to the empyema. 2.??ESRD secondary to hypertension and diabetes mellitus Patient reportedly being worked up for a possible transplant.? Patient did have dialysis earlier today.? Nephrology has been consulted.? Defer dialysis timing to them. Patient may need to be evaluated for CVVH if develops hypotension secondary to problem #1/sepsis. 3.??Hypertension/cirrhosis/chronic thrombocytopenia/schizoaffective disorder Complicates care, management, recovery and prognosis.? Clinical suspicion for thrombocytopenia secondary to hepatic function.? Blood pressure appears to be appropriate at this time.? Patient should be continued on baseline mood medications once able to take p.o.? Patient reportedly does use insulin at baseline.? Sliding scale likely sufficient at this time given patient's variable p.o. intake. HPI Consult Data Date of Consult: 01/04/23 HPI Narrative Reason for Consultation: Empyema HPI Narrative: ANA GARCÍA is a 52 F, with past medical history listed below and well-known to me from previous admissions, who presented to [facility] [place] on 01/02/2023 secondary to change in mental status. Patient does have a history of cirrhosis, hepatic encephalopathy, schizoaffective disorder and chronic kidney disease. Additional history was not available at that time. In the ER, patient was afebrile, normotensive and saturating well on room air. Laboratory work-up showed a white blood cell count of 6.6, hemoglobin of 9.9 and platelets of 44. Chemistry showed a creatinine of 3.36, TSH of 3.76 and an ammonia of 295. Coagulation studies were slightly elevated with an INR of 1.3, but salicylates and Tylenol were negative. Glucose was 89 and UA was consistent with a urinary tract infection. Talk screen was negative. An ABG was obtained at that time showing a respiratory and metabolic alkalosis with increased AA gradient. An NG tube was placed and patient was given lactulose. Patient subsequently was admitted to the floor and placed on diuretics. While on the floor, patient had a chest x-ray showing a large right pleural effusion with compressive atelectasis that appeared worse than previous study. Yesterday, patient had a thoracentesis with almost 2 L of purulent fluid drained. Patient studies were noted to have less than 1 glucose. Patient was started on ceftriaxone. Today, patient's Gram stain is come back with gram-negative rods, so pulmonary consult was obtained. Surgery was also consulted. They have requested a CT scan prior to a chest tube placement secondary to concerns for loculations. Patient states that overall she feels subjectively improved compared to yesterday. Patient is interactive, but not able to make much sense of additional history patient is reporting chest pain, but overall feels that this is better than previous. Patient feels her shortness of breath is improved. Patient reportedly was able to tolerate hemodialysis earlier today. [facility] Medical History Acute on chronic anemia Acute on chronic renal insufficiency Anemia Autoimmune hepatitis Bacteremia due to methicillin resistant Staphylococcus epidermidis Bipolar disorder CHI (closed head injury) Chronic pain Chronic renal insufficiency, stage III (moderate) Cirrhosis of liver Debility Depression Diabetes mellitus, type 2 Encephalopathy acute Essential hypertension Reilly's thyroiditis Hepatic encephalopathy Hepatitis Hypothyroidism Kidney disease MRSA bacteremia Myocardial infarct Non-smoker On home oxygen therapy Pancreatitis Pancytopenia Peripheral neuropathy Right lower lobe pneumonia Schizoaffective disorder Severe sepsis Splenomegaly Stage 3b chronic kidney disease (CKD) Weakness Home Medications rifaximin 550 mg tablet (Xifaxan) 550 mg PO BID IBS 11/04/17 [History Last Taken 06/14/22] sertraline 50 mg tablet 75 mg PO QHS DEPRESSION 03/20/21 [History Last Taken 06/14/22] sucralfate 1 gram tablet (Carafate) 1 g PO QHS STOMACH 03/20/21 [History Last Taken 06/14/22] ursodiol 300 mg capsule 300 mg PO BID LIVER 04/25/21 [History Last Taken 06/14/22] carbamazepine 100 mg tablet,extended release,12 hr 100 mg PO BID bipolar 04/29/21 [History Last Taken 06/14/22] zinc 50 mg tablet 50 mg PO DAILY SUPPLEMENT 09/18/21 [History Last Taken 06/14/22] carvedilol 3.125 mg tablet 6.25 mg PO BID HEART 03/23/22 [History Last Taken 06/14/22] lurasidone 40 mg tablet 40 mg PO LUNCH MOOD 04/16/22 [History Last Taken 06/14/22] torsemide 20 mg tablet 80 mg PO DAILY diuretic 04/16/22 [History Last Taken 06/14/22] ergocalciferol (vitamin D2) 1,250 mcg (50,000 unit) capsule (Vitamin D2) 1,250 unit PO MOTH supplement 05/14/22 [History Last Taken 06/14/22] insulin lispro 100 unit/mL subcutaneous pen (Humalog KwikPen (U-100) Insulin) 7 unit subcut ACHS diabetes 05/14/22 [History Last Taken 06/14/22] levothyroxine 75 mcg tablet 75 mcg PO DAILY THYROID 05/14/22 [History Last Taken 06/14/22] ondansetron 4 mg disintegrating tablet 8 mg PO Q8H PRN Nausea And Vomiting 05/14/22 [History Last Taken 06/13/22] lactulose 20 gram/30 mL oral solution 20 g PO BID liver failure 06/11/22 [History Last Taken 06/14/22] ascorbic acid (vitamin C) 500 mg tablet 500 mg PO DAILY supplement 11/03/22 [History Last Taken Unknown] bisacodyl 10 mg rectal suppository 10 mg [place] DAILY PRN Constipation 11/03/22 [History Last Taken Unknown] darbepoetin sree in polysorbat 40 mcg/0.4 mL in polysorbate injection syringe 40 mcg subcut QWEEK bone marrow 11/03/22 [History Last Taken Unknown] dextromethorphan HBr 10 mg/15 mL oral syrup 10 mg PO Q6H PRN Cough 11/03/22 [History Last Taken Unknown] insulin degludec 100 unit/mL (3 mL) subcutaneous pen (Tresiba FlexTouch U-100 insulin) 10 unit subcut DAILY diabetes 11/03/22 [History Last Taken Unknown] insulin glargine 100 unit/mL (3 mL) subcutaneous pen (Lantus Solostar U-100 Insulin) 10 unit subcut DAILY DM2 11/03/22 [History Last Taken Unknown] magnesium hydroxide 400 mg/5 mL oral suspension (Milk of Magnesia) 2,400 mg PO DAILY PRN Constipation 11/03/22 [History Last Taken Unknown] cefdinir 300 mg capsule 300 mg PO BID #10 caps 12/11/22 [Rx Last Taken Unknown] omeprazole 20 mg capsule,delayed release 20 mg PO DAILY GERD 12/14/22 [History Last Taken Unknown] dexamethasone 4 mg tablet 6 mg PO DAILY Renal Disease 01/02/23 [History Last Taken Unknown] guaifenesin 400 mg tablet 400 mg PO DAILY Congestion 01/02/23 [History Last Taken Unknown] hydrocortisone acetate 25 mg rectal suppository (Anusol-HC) 25 mg [place] BID Hemorrhoids 01/02/23 [History Last Taken Unknown] Allergy/AdvReac Type Severity Reaction Status Date / Time adhesive Allergy Rash Verified 01/01/23 23:04 escitalopram oxalate Allergy blindness Verified 01/01/23 23:04 [From Lexapro] Fish Containing Products Allergy Other Verified 01/01/23 23:04 gabapentin [From Neurontin] Allergy Alan Verified 01/01/23 23:04 Jez's Syndrome lamotrigine [From Lamictal] Allergy Blindness Verified 01/01/23 23:04 metformin Allergy PT UNSURE Verified 01/01/23 23:04 OF REACTION topiramate [From Topamax] Allergy Other Verified 01/01/23 23:04 sour cream AdvReac Severe Anaphylaxis Uncoded 12/14/22 17:39 Preservatives AdvReac Intermediate passed Uncoded 01/01/23 23:04 out, lungs deflated Family History Father CVA (cerebral vascular accident) Myocardial infarction Heart disease CAD (coronary artery disease) Grandmother CHF (congestive heart failure) Sister Hypertension Mother Heart disease Surgical History H/O: hysterectomy History of abdominal paracentesis (10/2019) History of appendectomy History of cholecystectomy S/P TIPS (transjugular intrahepatic portosystemic shunt) Social History household members: significant other housing: house Smoking Status: Never smoker alcohol intake: never details: Unknown substance use type: does not use ROS Review of Systems ROS Unobtainable: due to mental status Physical Exam Const alert and no apparent distress Constitutional Narrative: No conversational dyspnea noted. Appears older than stated age. General Appearance: cooperative HEENT normocephalic and head/scalp atraumatic Eyes PERRL and EOMs intact bilaterally Neck supple and No nodes Chest Chest Narrative: Little to no chest movement on the right Resp Resp Narrative: Right-sided squeaks Effort and Inspection: tachypneic Auscultation: diminished lung sounds; Negative for rales, rhonchi or wheezes Percussion: dullness Mid: right and Lower: right Cardio regular rate, regular rhythm, S1 normal heart sound, S2 normal heart sound, no rub and no gallops GI soft to palpation and non-tender Extremity General Extremity: edema Skin no rashes or lesions noted Neuro CN's II-XII intact bilaterally Psych Activity / Motor Behavior: restless Mood & Affect: anxious Medical Records Data Attestation: I reviewed the patient's medical records Lab / Micro Data Attestation: I reviewed the patient's lab results. Result Diagrams: 01/03/23 05:29 01/04/23 06:50 Labs: Laboratory Results - last 24 hr 01/03/23 16:08: POC Glucose 187 H 01/03/23 20:42: POC Glucose 162 H 01/03/23 : Fluid Source THORACENTESIS, Fluid Color YELLOW, Fluid Appearance CLOUDY, Fluid WBC 73.650, Fluid RBC 0.055, Fluid Tot Cell Count 73.860 H, Fld Polynuclear WBCs # 79.115, Fld Polynuclear WBCs % 95.6, Fluid Mononuclear WBCs 3.573, Fld Mononuclear WBCs % 4.4, Fluid Neutrophils 73, Fluid Lymphocytes 11, Fluid Monocytes 16, Fl Pathologist Comment Reviewed, Fluid Comment 2 SEE COMMENT 01/03/23 : Miscellaneous Cytology SEE PATHOLOGY REPORT 01/04/23 06:34: POC Glucose 131 H 01/04/23 06:50: Sodium 135 L, Potassium 3.6, Chloride 100, Carbon Dioxide 24.0, BUN 42 H, Creatinine 3.54 H, Estim Creat Clear Calc 18.99, Est GFR (MDRD) Af Amer 17 L, Est GFR (MDRD) Non-Af 14 L, BUN/Creatinine Ratio 11.9, Glucose 153 H, Calcium 7.8 L, Phosphorus 4.6, Total Bilirubin 1.80 H, Direct Bilirubin 1.01 H, AST 31, ALT 43, Alkaline Phosphatase 180 H, Total Protein 5.6 L, Albumin 1.5 L, Globulin 4.1 01/04/23 06:50: Ammonia < 10.0 L 01/04/23 12:00: POC Glucose 91 Micro: Microbiology 01/03/23 Unknown Fluid - Thoracentesis Fluid Gram Stain - Final 01/03/23 Unknown Fluid - Thoracentesis Fluid Body Fluid Culture - 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 Ascites. Findings suggestive of cirrhosis of the liver. Electronically Signed: Dash Shin MD at 14:18 EST , Charges/Coding Visit Charges Inpatient E&M: 12068 Init Hosp L3
--- NOTE | 2023-01-04 15:19 | PCM.RX.CS ---
Consult Pharmacy has been consulted to manage selected antiobiotic: Vancomycin Type of Consult: New start Suspected Infection: Other Labs: Sodium 135 mmol/L (136-145) L 01/04/23 06:50 Potassium 3.6 mmol/L (3.5-5.1) 01/04/23 06:50 Chloride 100 mmol/L (98-107) 01/04/23 06:50 Carbon Dioxide 24.0 mmol/L (21.0-32.0) 01/04/23 06:50 Anion Gap 10 (5-15) 01/03/23 05:29 BUN 42 mg/dL (7-18) H 01/04/23 06:50 Creatinine 3.54 mg/dL (0.55-1.02) H 01/04/23 06:50 Est GFR (MDRD) Af Amer 17 mL/min (>60) L 01/04/23 06:50 Est GFR (MDRD) Non-Af 14 mL/min (>60) L 01/04/23 06:50 BUN/Creatinine Ratio 11.9 RATIO (10-20) 01/04/23 06:50 Glucose 153 mg/dL (74-106) H 01/04/23 06:50 Microbiology: Microbiology 01/03/23 Unknown Fluid - Thoracentesis Fluid Gram Stain - Final 01/03/23 Unknown Fluid - Thoracentesis Fluid Body Fluid Culture - 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 Then will give 500mg IV x1 after the next dialysis session per protocol which will be 01/07/23. Subsequent doses after that will be guided by pre-dialysis vanc levels, the first which will be on 01/09/23. The patient gets hemodialysis on Mon/Wed/Fri. Pharmacy Service will continue to monitor and adjust dosing as required. Follow-Up Labs: Trough Vancomycin - random pre-HD Labs to be done on [date and time ordered]: 01/09/23 0600
--- NOTE | 2023-01-04 15:27 | CON.PCM.SX_ITS ---
Assessment & Plan Assessment/Plan (1) Empyema: (2) Thrombocytopenia: (3) Autoimmune hepatitis: PLAN: Plan Patient had a thoracentesis showed gram-negative rods from culture. We will plan to place right-sided chest tube for empyema. Consent was obtained from patient's sister as patient is unable to give consent. Vandana Nj M.D. Pager: [phone] [facility] [address] [place] [address], Outpatient [place], [address] [place] [address] Office: [phone] HPI Consult Data Date of Consult: 01/06/23 HPI Narrative HPI Narrative: ANA GARCÍA, is a 52 F who in a due to hepatic encephalopathy had a thoracentesis just done which was growing gram-negative rods. Hospitalist/pulmonary requested chest tube placement for empyema. Unable to obtain history per patient due to mental status. [facility] Medical History Acute on chronic anemia Acute on chronic renal insufficiency Anemia Autoimmune hepatitis Bacteremia due to methicillin resistant Staphylococcus epidermidis Bipolar disorder CHI (closed head injury) Chronic pain Chronic renal insufficiency, stage III (moderate) Cirrhosis of liver Debility Depression Diabetes mellitus, type 2 Encephalopathy acute Essential hypertension Reilly's thyroiditis Hepatic encephalopathy Hepatitis Hypothyroidism Kidney disease MRSA bacteremia Myocardial infarct Non-smoker On home oxygen therapy Pancreatitis Pancytopenia Peripheral neuropathy Right lower lobe pneumonia Schizoaffective disorder Severe sepsis Splenomegaly Stage 3b chronic kidney disease (CKD) Weakness Home Medications rifaximin 550 mg tablet (Xifaxan) 550 mg PO BID IBS 11/04/17 [History Last Taken 06/14/22] sertraline 50 mg tablet 75 mg PO QHS DEPRESSION 03/20/21 [History Last Taken 06/14/22] sucralfate 1 gram tablet (Carafate) 1 g PO QHS STOMACH 03/20/21 [History Last Taken 06/14/22] ursodiol 300 mg capsule 300 mg PO BID LIVER 04/25/21 [History Last Taken 06/14/22] carbamazepine 100 mg tablet,extended release,12 hr 100 mg PO BID bipolar 04/29/21 [History Last Taken 06/14/22] zinc 50 mg tablet 50 mg PO DAILY SUPPLEMENT 09/18/21 [History Last Taken 06/14/22] carvedilol 3.125 mg tablet 6.25 mg PO BID HEART 03/23/22 [History Last Taken 06/14/22] lurasidone 40 mg tablet 40 mg PO LUNCH MOOD 04/16/22 [History Last Taken 06/14/22] torsemide 20 mg tablet 80 mg PO DAILY diuretic 04/16/22 [History Last Taken 06/14/22] ergocalciferol (vitamin D2) 1,250 mcg (50,000 unit) capsule (Vitamin D2) 1,250 unit PO MOTH supplement 05/14/22 [History Last Taken 06/14/22] insulin lispro 100 unit/mL subcutaneous pen (Humalog KwikPen (U-100) Insulin) 7 unit subcut ACHS diabetes 05/14/22 [History Last Taken 06/14/22] levothyroxine 75 mcg tablet 75 mcg PO DAILY THYROID 05/14/22 [History Last Taken 06/14/22] ondansetron 4 mg disintegrating tablet 8 mg PO Q8H PRN Nausea And Vomiting 05/14/22 [History Last Taken 06/13/22] lactulose 20 gram/30 mL oral solution 20 g PO BID liver failure 06/11/22 [History Last Taken 06/14/22] ascorbic acid (vitamin C) 500 mg tablet 500 mg PO DAILY supplement 11/03/22 [History Last Taken Unknown] bisacodyl 10 mg rectal suppository 10 mg [place] DAILY PRN Constipation 11/03/22 [History Last Taken Unknown] darbepoetin sree in polysorbat 40 mcg/0.4 mL in polysorbate injection syringe 40 mcg subcut QWEEK bone marrow 11/03/22 [History Last Taken Unknown] dextromethorphan HBr 10 mg/15 mL oral syrup 10 mg PO Q6H PRN Cough 11/03/22 [History Last Taken Unknown] insulin degludec 100 unit/mL (3 mL) subcutaneous pen (Tresiba FlexTouch U-100 insulin) 10 unit subcut DAILY diabetes 11/03/22 [History Last Taken Unknown] insulin glargine 100 unit/mL (3 mL) subcutaneous pen (Lantus Solostar U-100 Insulin) 10 unit subcut DAILY DM2 11/03/22 [History Last Taken Unknown] magnesium hydroxide 400 mg/5 mL oral suspension (Milk of Magnesia) 2,400 mg PO DAILY PRN Constipation 11/03/22 [History Last Taken Unknown] cefdinir 300 mg capsule 300 mg PO BID #10 caps 12/11/22 [Rx Last Taken Unknown] omeprazole 20 mg capsule,delayed release 20 mg PO DAILY GERD 12/14/22 [History Last Taken Unknown] dexamethasone 4 mg tablet 6 mg PO DAILY Renal Disease 01/02/23 [History Last Taken Unknown] guaifenesin 400 mg tablet 400 mg PO DAILY Congestion 01/02/23 [History Last Taken Unknown] hydrocortisone acetate 25 mg rectal suppository (Anusol-HC) 25 mg [place] BID Hemorrhoids 01/02/23 [History Last Taken Unknown] Allergy/AdvReac Type Severity Reaction Status Date / Time adhesive Allergy Rash Verified 01/01/23 23:04 escitalopram oxalate Allergy blindness Verified 01/01/23 23:04 [From Lexapro] Fish Containing Products Allergy Other Verified 01/01/23 23:04 gabapentin [From Neurontin] Allergy Alan Verified 01/01/23 23:04 Jez's Syndrome lamotrigine [From Lamictal] Allergy Blindness Verified 01/01/23 23:04 metformin Allergy PT UNSURE Verified 01/01/23 23:04 OF REACTION topiramate [From Topamax] Allergy Other Verified 01/01/23 23:04 sour cream AdvReac Severe Anaphylaxis Uncoded 12/14/22 17:39 Preservatives AdvReac Intermediate passed Uncoded 01/01/23 23:04 out, lungs deflated Family History Father CVA (cerebral vascular accident) Myocardial infarction Heart disease CAD (coronary artery disease) Grandmother CHF (congestive heart failure) Sister Hypertension Mother Heart disease Surgical History H/O: hysterectomy History of abdominal paracentesis (10/2019) History of appendectomy History of cholecystectomy S/P TIPS (transjugular intrahepatic portosystemic shunt) Social History household members: significant other housing: house Smoking Status: Never smoker alcohol intake: never details: Unknown substance use type: does not use Physical Exam Const alert General Appearance: cooperative HEENT normocephalic Resp Resp Narrative: Decreased breath sounds in the right Cardio Rate: regular rate GI soft to palpation; Negative for non-tender Inspection: abdominal distention Extremity normal to inspection Skin no jaundice Lab / Micro Data Result Diagrams: 01/06/23 05:33 01/06/23 05:33 Labs: Laboratory Results - last 24 hr 01/03/23 16:08: POC Glucose 187 H 01/03/23 20:42: POC Glucose 162 H 01/03/23 : Fl Pathologist Comment Reviewed 01/03/23 : Miscellaneous Cytology SEE PATHOLOGY REPORT 01/04/23 06:34: POC Glucose 131 H 01/04/23 06:50: Sodium 135 L, Potassium 3.6, Chloride 100, Carbon Dioxide 24.0, BUN 42 H, Creatinine 3.54 H, Estim Creat Clear Calc 18.99, Est GFR (MDRD) Af Amer 17 L, Est GFR (MDRD) Non-Af 14 L, BUN/Creatinine Ratio 11.9, Glucose 153 H, Calcium 7.8 L, Phosphorus 4.6, Total Bilirubin 1.80 H, Direct Bilirubin 1.01 H, AST 31, ALT 43, Alkaline Phosphatase 180 H, Total Protein 5.6 L, Albumin 1.5 L, Globulin 4.1 01/04/23 06:50: Ammonia < 10.0 L 01/04/23 12:00: POC Glucose 91 Micro: Microbiology 01/03/23 Unknown Fluid - Thoracentesis Fluid Gram Stain - Final 01/03/23 Unknown Fluid - Thoracentesis Fluid Body Fluid Culture - 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 Ascites. Findings suggestive of cirrhosis of the liver. Electronically Signed: Dash Shin MD at 14:18 EST , Charges/Coding Visit Charges Inpatient E&M: 22843 Init Hosp L3
[2023-01-04] MEDS: Morphine 4 MG/ML Syringe IM (15:48)
[2023-01-04] MEDS: 0.9% Saline Lock 10 ML Syringe IV ×2 (15:48→21:40)
--- NOTE | 2023-01-04 16:16 | RAD_ITS ---
STUDY: X-RAY CHEST REASON FOR EXAM: Female, 52 years old. CHEST PAIN chest tube placement TECHNIQUE: XR Chest 1 View COMPARISON: Study done yesterday FINDINGS: There is a right pleural effusion. There is a right chest tube and a right pneumothorax. There is a TIPS stent. Normal size heart. Normal mediastinum and sonny. Normal visualized pulmonary arteries. Normal visualized aortic arch and descending thoracic aorta. Normal visualized thoracic spine. Normal visualized ribs, clavicles, and shoulders. Right vascular line in place. RAD/Chest 1 View (Portable) IMPRESSION: There is decrease in size of the right pleural effusion. There is a right chest tube and a right pneumothorax. Electronically Signed: Reese Bergman MD at 17:03 EST ,
--- NOTE | 2023-01-04 16:34 | PCM.OPRPT ---
Report of Operation Date of Procedure: 01/04/23 Pre-Operative Diagnosis: Right lung empyema Post-Operative Diagnosis: Same Surgery/Procedure Performed:: Insertion of 28 Tajik right chest tube Surgeon: Vandana Nj Type of Anesthesia: Local and Supplemental Drains: 1300 cc to a Pleur-evac sanguinous --initially did have some arvizu fluid Description of Procedure: Informed consent was obtained per patient's sister. The right anterior lateral axillary line was prepped draped usual sterile fashion. Incision was made with a 15 blade scalpel after infiltrating the area with 2% lidocaine total of 10 cc. Patient also received 2 mg of morphine IV preprocedure. Tonsils to dissect above the rib and into the pleural cavity. There was a small mount of suction of air and also some arvizu fluid and initially drained. The 28 Tajik chest tube was placed and directed posteriorly and superior. This was sutured in place with 0 silk suture there is also a stay vertical mattress suture of 0 silk placed. This was dressed with Vaseline gauze 4 x 4's and tape. This was hooked to Pleur-evac at -20 and 1300 cc in the canister sanguinous. Patient tolerated procedure well. Postop chest x-ray revealed chest tube in good position. Complications none
[2023-01-04] MEDS: Insulin Lispro 100 UNIT/ML INSULN.PEN SC ×2 (17:36→21:43)
[2023-01-04] MEDS: Lidocaine 2% (10 ml mdv) 10 ML Vial INFILT (17:37)
[2023-01-04] MEDS: oxyCODONE 5 MG Tablet PO (17:38)
[2023-01-04 18:01] LABS: Bedside Glucose 305 mg/dL (74-106)
[2023-01-04] MEDS: Sucralfate 1 GM Tablet GT (21:36)
[2023-01-04 21:40] VITALS: BP 110/59; PULSE 88; RESP 16; TEMP 36.4; O2SAT 95
[2023-01-04] MEDS: Hydrocortisone 25 MG Suppository RC (21:43)
[2023-01-05 00:20] LABS: Bedside Glucose 310 mg/dL (74-106)
[2023-01-05 04:16] VITALS: BP 136/70; PULSE 89; RESP 18; TEMP 36.6; O2SAT 96
[2023-01-05] MEDS: Levothyroxine 88 MCG Tablet PO (04:27)
[2023-01-05] MEDS: Lactulose 20 GM/30 ML UDC GT ×2 (04:27→17:07)
[2023-01-05] MEDS: oxyCODONE 5 MG Tablet PO ×3 (04:27→18:50)
[2023-01-05] MEDS: Insulin Lispro 100 UNIT/ML INSULN.PEN SC ×4 (06:32→22:35)
[2023-01-05 06:55] LABS: Bedside Glucose 304 mg/dL (74-106)
--- NOTE | 2023-01-05 07:29 | RAD_ITS ---
HISTORY: ct -- portable. TECHNIQUE: XR Chest 1 View. COMPARISON: Prior day. FINDINGS: LINES/TUBES: Right internal jugular central venous catheter tip at the level of the lower right atrium, right chest tube, and TIPS again noted. CARDIOMEDIASTINAL BORDERS: Right-sided volume loss with rightward mediastinal shift. LUNGS: Atelectasis and focal consolidation of the right lower lung again noted. PLEURA: Right hydropneumothorax with increased pneumothorax apically and decreased pneumothorax component at the base. RAD/Chest 1 View (Portable) IMPRESSION: Persistent right hydropneumothorax with atelectasis and consolidation of the right lung. Electronically Signed: Deena Kingston MD at 8:59 EST ,
--- NOTE | 2023-01-05 08:23 | PN.SURG_ITS ---
Subjective Subjective Patient complains of pain at chest tube site as well as cannot breathe. Patient's pulse ox is 96% on room air. Patient's checks x-ray shows chest tube in good position total of 1950 in the canister currently initially was 1300. Initial drainage was more purulent now more sanguinous. There are small bubbles/waves in the canister with breathing. Chest x-ray also shows her lung is slowly expanding. Objective Data Objective Data Vital Signs: Vital Signs Temp Pulse Resp BP Pulse Ox O2 Del Method 98 F 89 18 136/70 H 96 Room Air 01/05/23 04:16 01/05/23 04:16 01/05/23 04:16 01/05/23 04:16 01/05/23 04:16 01/05/23 04:18 Oxygen Delivery Method [4] Room Air Oxygen Delivery Method [3] Room Air Oxygen Delivery Method [2] Room Air Oxygen Delivery Method [1 ( Room Air Initial Baseline)] Oxygen Delivery Method Room Air Weight: 158 lb 1.143 oz Body Mass Index (BMI) 25.0 Intake & Output: Intake and Output for Last 24 Hours 01/03/23 01/04/23 01/05/23 23:59 23:59 23:59 Intake Total 2340 / 2340 1585 / 1585 Output Total 1860 / 1860 1460 / 1460 390 / 390 Balance 480 / 480 125 / 125 -390 / -390 Lab / Micro Data Result Diagrams: 01/03/23 05:29 01/04/23 06:50 Labs: Laboratory Results - last 24 hr 01/03/23 : Fl Pathologist Comment Reviewed 01/03/23 : Miscellaneous Cytology SEE PATHOLOGY REPORT 01/04/23 12:00: POC Glucose 91 01/04/23 17:35: POC Glucose 305 H 01/04/23 21:39: POC Glucose 310 H 01/05/23 06:31: POC Glucose 304 H Micro: Microbiology 01/03/23 Unknown Fluid - Thoracentesis Fluid Gram Stain - Final 01/03/23 Unknown Fluid - Thoracentesis Fluid Body Fluid Culture - Final Escherichia coli Radiography Diagnostic Testing: Radiology Impression Chest CT 01/04/23 11:47 IMPRESSION: Large right pleural effusion with almost collapse of the right lung. Ascites. Findings suggestive of cirrhosis of the liver. Electronically Signed: Dash Shin MD at 14:18 EST , Chest X-Ray 01/04/23 16:16 IMPRESSION: There is decrease in size of the right pleural effusion. There is a right chest tube and a right pneumothorax. Electronically Signed: Reese Bergman MD at 17:03 EST , Physical Exam Resp Resp Narrative: Right chest tube in place, good position x-ray. Mild bubbles/waves in the canister with breathing, total of 1950 cc in the canister serosanguineous currently?initial canister was purulent. Cardio regular rate Assessment & Plan Assessment/Plan (1) Empyema: (2) Thrombocytopenia: (3) Autoimmune hepatitis: PLAN: Plan Right chest tube in place functioning well. Patient does have questionable leak or could just be due to be from the lung reexpanding slowly due to being collapsed due to the fluid for longer period of time. Continue chest tube to - 20 suction. Vandana Nj M.D. Pager: [phone] [facility] [address] [place] [address], [facility], [address] [place] [address] Office: [phone] Charges/Coding Visit Charges Inpatient E&M: 73785 Subs Hosp L3
[2023-01-05] MEDS: Senna/Docusate Sodium 1 Tablet 2 TABLET GT ×2 (08:27→22:35)
[2023-01-05] MEDS: Ascorbic Acid 500 MG Tablet PO (08:27)
[2023-01-05] MEDS: Spironolactone 25 MG Tablet PO (08:27)
[2023-01-05] MEDS: Lansoprazole 15 MG Capsule.DR GT (08:28)
[2023-01-05] MEDS: Ursodiol 250 MG Tablet GT ×2 (08:28→22:36)
[2023-01-05] MEDS: Carvedilol 6.25 MG Tablet GT ×2 (08:28→22:37)
[2023-01-05] MEDS: Insulin Glargine-YFGN 100 UNIT/ML Pen 15 UNIT SC (08:28)
[2023-01-05] MEDS: rifAXIMin 550 MG Tablet GT ×2 (08:29→22:37)
[2023-01-05] MEDS: Menthol/Lanolin/Calamine/Znox 113 GM Tube 1 APPLIC TOPICAL ×2 (08:30→22:34)
[2023-01-05 10:15] VITALS: BP 131/73; PULSE 90; RESP 18; TEMP 36.6; O2SAT 93
--- NOTE | 2023-01-05 11:22 | PCM.PN.INT ---
Assessment & Plan Assessment/Plan (1) Empyema: (2) Cirrhosis of liver: (3) Thrombocytopenia: PLAN: Plan RECOMMENDATIONS: 1. Likely wean antibiotics in the next 24 to 48 hours 2. Chest tube per general surgery 3. Cannot exclude the need for CT surgery transfer if leak does not resolve 4. Lower concern for need for pressor therapy 5. Continue daily chest x-rays 6. Continue lactulose and rifaximin 7. Hemodialysis per nephrology IMPRESSIONS: 1. Right empyema Chest x-ray shows significant right pleural effusion on presentation. Patient with almost 2 L removed yesterday with labs consistent with empyema. Repeat imaging today shows significant amount of residual fluid. Patient was recently admitted with Klebsiella aerogenes that was sensitive to ceftriaxone, however it appears patient has E. coli at this time from the chest. Unclear if this is secondary to GI spread. Patient continues to have a leak with failure to expand. We will continue with daily chest x-rays, but patient may require transfer for CT surgery if not improving by Saturday. 2.??ESRD secondary to hypertension and diabetes mellitus Patient reportedly being worked up for a possible transplant.? Patient did have dialysis earlier today.? Nephrology has been consulted.? Defer dialysis timing to them. Patient's blood pressure appears to be tolerating problem #1 well. 3.??Hypertension/cirrhosis/chronic thrombocytopenia/schizoaffective disorder Complicates care, management, recovery and prognosis.? Clinical suspicion for thrombocytopenia secondary to hepatic function.? Blood pressure appears to be appropriate at this time.? Patient should be continued on baseline mood medications once able to take p.o.? Patient reportedly does use insulin at baseline.? Sliding scale likely sufficient at this time given patient's variable p.o. intake. Subjective Subjective Patient did well overnight. No hypotension has been reported. Patient did tolerate the placement of the chest tube. Patient is not reporting excessive chest pain. Objective Data Objective Data Chest x-ray was personally reviewed and shows continued hydropneumothorax. Vital Signs: Vital Signs Temp Pulse Resp BP Pulse Ox O2 Del Method 36.6 C 89 18 136/70 H 96 Room Air 01/05/23 04:16 01/05/23 04:16 01/05/23 04:16 01/05/23 04:16 01/05/23 04:16 01/05/23 04:18 Oxygen Delivery Method [4] Room Air Oxygen Delivery Method [3] Room Air Oxygen Delivery Method [2] Room Air Oxygen Delivery Method [1 ( Room Air Initial Baseline)] Oxygen Delivery Method Room Air Weight: 71.7 kg Body Mass Index (BMI) 25.0 Intake & Output: Intake and Output for Last 24 Hours 01/03/23 01/04/23 01/05/23 23:59 23:59 23:59 Intake Total 2340 / 2340 1585 / 1585 Output Total 1860 / 1860 1460 / 1460 390 / 390 Balance 480 / 480 125 / 125 -390 / -390 Lab / Micro Data Attestation: I reviewed the patient's lab results. Result Diagrams: 01/03/23 05:29 01/04/23 06:50 Labs: Laboratory Results - last 24 hr 01/03/23 : Fl Pathologist Comment Reviewed 01/03/23 : Miscellaneous Cytology SEE PATHOLOGY REPORT 01/04/23 12:00: POC Glucose 91 01/04/23 17:35: POC Glucose 305 H 01/04/23 21:39: POC Glucose 310 H 01/05/23 06:31: POC Glucose 304 H Micro: Microbiology 01/03/23 Unknown Fluid - Thoracentesis Fluid Gram Stain - Final 01/03/23 Unknown Fluid - Thoracentesis Fluid Body Fluid Culture - Final Escherichia coli 01/03/23 Unknown Fluid - Thoracentesis Fluid Anaerobic Culture - Preliminary No growth in 48 hours. Radiography Diagnostic Testing: Radiology Impression Chest CT 01/04/23 11:47 IMPRESSION: Large right pleural effusion with almost collapse of the right lung. Ascites. Findings suggestive of cirrhosis of the liver. Electronically Signed: Dash Shin MD at 14:18 EST , Chest X-Ray 01/04/23 16:16 IMPRESSION: There is decrease in size of the right pleural effusion. There is a right chest tube and a right pneumothorax. Electronically Signed: Reese Bergman MD at 17:03 EST , Chest X-Ray 01/05/23 07:29 IMPRESSION: Persistent right hydropneumothorax with atelectasis and consolidation of the right lung. Electronically Signed: Deena Kingston MD at 8:59 EST Reading Location ID and State: [facility] / [place] Tel , Service support , Physical Exam Const alert and no apparent distress Constitutional Narrative: No conversational dyspnea noted. Appears older than stated age. General Appearance: cooperative HEENT normocephalic and head/scalp atraumatic Eyes PERRL and EOMs intact bilaterally Neck supple and No nodes Chest Chest Narrative: Right-sided chest tube. Still with air leak. Vacutainer changed prior to my evaluation Resp clear to auscultation bilaterally Resp Narrative: Right-sided squeaks Auscultation: diminished lung sounds; Negative for rales, rhonchi or wheezes Percussion: Negative for dullness Cardio regular rate, regular rhythm, S1 normal heart sound, S2 normal heart sound, no rub and no gallops GI soft to palpation and non-tender Extremity General Extremity: edema Skin no rashes or lesions noted Neuro CN's II-XII intact bilaterally and moves all extremities Psych Mood & Affect: flat affect Charges/Coding Visit Charges Inpatient E&M: 70069 Subs Hosp L3
[2023-01-05 12:20] LABS: Bedside Glucose 291 mg/dL (74-106)
--- NOTE | 2023-01-05 12:36 | PN.HOSP_ITS ---
Reason for Visit Reason for Visit: Diagnoses Acute encephalopathy Subjective Subjective Ms. Lau is a 52-year-old white female with known autoimmune hepatitis and multiple chronic medical problems who presented to the emergency department at [facility] on 01/02/2023 with acute mental status changes. She presented from the nursing facility where she resides. Per the report from the halfway they were rounding and she was noted to have depressed mental status and was therefore sent to the emergency department for evaluation. Upon presentation, she was found to have significant hyperammonemia and an NG tube was placed and lactulose was ordered at that time. Patient was also found to have a large right-sided pleural effusion for which thoracentesis was performed. Fluid studies were consistent with empyema. Chest tube was placed and cultures are currently growing E. coli. Patient sleeping at the time of my evaluation. I did discuss the case with nursing and they stated she was awake and appropriate early in the day however was having considerable pain from chest tube placement just received medication for pain. Objective Data Objective Data Vital Signs: Vital Signs Temp Pulse Resp BP Pulse Ox O2 Del Method 98 F 89 18 136/70 H 96 Room Air 01/05/23 04:16 01/05/23 04:16 01/05/23 04:16 01/05/23 04:16 01/05/23 04:16 01/05/23 04:18 Oxygen Delivery Method [4] Room Air Oxygen Delivery Method [3] Room Air Oxygen Delivery Method [2] Room Air Oxygen Delivery Method [1 ( Room Air Initial Baseline)] Oxygen Delivery Method Room Air Weight: 71.7 kg Body Mass Index (BMI) 25.0 Intake & Output: Intake and Output for Last 24 Hours 01/03/23 01/04/23 01/05/23 23:59 23:59 23:59 Intake Total 2340 / 2340 1585 / 1585 Output Total 1860 / 1860 1460 / 1460 390 / 390 Balance 480 / 480 125 / 125 -390 / -390 Lab / Micro Data Result Diagrams: 01/05/23 12:50 01/05/23 12:50 Labs: Laboratory Results - last 24 hr 01/03/23 : Fl Pathologist Comment Reviewed 01/03/23 : Miscellaneous Cytology SEE PATHOLOGY REPORT 01/04/23 17:35: POC Glucose 305 H 01/04/23 21:39: POC Glucose 310 H 01/05/23 06:31: POC Glucose 304 H 01/05/23 11:33: POC Glucose 291 H Micro: Microbiology 01/03/23 Unknown Fluid - Thoracentesis Fluid Gram Stain - Final 01/03/23 Unknown Fluid - Thoracentesis Fluid Body Fluid Culture - Final Escherichia coli 01/03/23 Unknown Fluid - Thoracentesis Fluid Anaerobic Culture - Preliminary No growth in 48 hours. Radiography Diagnostic Testing: Radiology Impression Chest CT 01/04/23 11:47 IMPRESSION: Large right pleural effusion with almost collapse of the right lung. Ascites. Findings suggestive of cirrhosis of the liver. Electronically Signed: Dash Shin MD at 14:18 EST , Chest X-Ray 01/04/23 16:16 IMPRESSION: There is decrease in size of the right pleural effusion. There is a right chest tube and a right pneumothorax. Electronically Signed: eRese Bergman MD at 17:03 EST , Chest X-Ray 01/05/23 07:29 IMPRESSION: Persistent right hydropneumothorax with atelectasis and consolidation of the right lung. Electronically Signed: Deena Kingston MD at 8:59 EST , Physical Exam Const Constitutional Narrative: Middle-age, white female, patient is sleeping comfortably, appears much older than stated age, appears chronically ill HEENT head/scalp atraumatic and moist oral mucous membranes Head and Scalp: normocephalic Resp normal respiratory effort, no retractions and no use of accessory muscles Resp Narrative: Right-sided chest tube in place with airleak noted, no signs of respiratory distress Auscultation: Negative for rales, rhonchi or wheezes Cardio regular rate, regular rhythm, S1 normal heart sound, S2 normal heart sound, no murmurs, no rub, no gallops and no clicks GI normal to inspection, nondistended, normoactive bowel sounds, soft to palpation and non-tender Extremity no clubbing, cyanosis or edema Neuro Neuro Narrative: Patient sleeping, moves all extremities spontaneously Assessment & Plan Assessment/Plan (1) Empyema: (2) Toxic metabolic encephalopathy: (3) Hepatic encephalopathy: (4) Thrombocytopenia: (5) Anemia: (6) Leukopenia: PLAN: Plan Acute metabolic/toxic encephalopathy -Suspect multifactorial with infection and history of autoimmune hepatitis -Ammonia level was elevated on presentation -NG placed and patient with scheduled lactulose -Continue rifaximin -Mental status seems to be improving -Goal is for 2-3 bowel movements daily -Overall has had 7 today--> if remains stable at elevated stool output will wean lactulose tomorrow and consider discontinuation of NG tube Right-sided empyema -Significant pleural effusion noted on presentation -2 L removed with thoracentesis and labs consistent with empyema -Chest tube placed by general surgery on 01/04/2023 -Patient continues to have a leak -Continue daily chest x-rays -If no significant improvement patient may require transfer for CT surgery -Fluid from thoracentesis is currently showing E. coli that is pansensitive -ID is following so we will maintain cefepime until reevaluated however suspect patient will be able to be narrowed if cultures remain stable -Appreciate pulmonary and infectious disease input Acute on chronic anemia -Hemoglobin was 6 on admission-->Received 1 unit packed red blood cells and hemoglobin now up 9.8--> 8.1 yesterday--> 7.4 today -No obvious signs of bleeding -Occult stool ordered yesterday but still pending as no bowel movement -With continuing drop in hemoglobin GI consulted -N.p.o. and plan for EGD later today -Continue Protonix but increase to twice daily -Continue Carafate as ordered CKD stage IV -Remains on dialysis Saturday and Saturday -Started on dialysis 10/13/2020 to include [facility] -No signs of renal recovery -EPO/IV iron per media job titles -Neurology is following -Patient was on transplant list for simultaneous liver/kidney currently off secondary debility Pancytopenia -Chronic related to her cirrhosis -Continue to monitor DM-2 -Blood sugars are uncontrolled and in the 300s -Increase Lantus from 15 units to 25 units daily -We will give a one-time 10 unit dose -Sliding scale -Accu-Cheks as ordered -Continue to monitor for needed adjustment Hypertension -Continue carvedilol GERD -Continue lansoprazole via NG Vitamin D deficiency -Restart ergocalciferol discharge Hypothyroidism -cont Levothyroxine 88 mcg Cirrhosis secondary to autoimmune hepatitis -Home diuretics on hold--> will need to discuss with nephrology prior to reinitiation -Continue rifaximin -Continue lactulose 20 g every 6 -Continue ursodiol Bipolar disorder -Continue medications DVT prophylaxis -Continue SCDs -Chemoprophylaxis on hold secondary to anemia and thrombocytopenia on presentation CODE STATUS? -full code Charges/Coding Visit Charges Inpatient E&M: 19548 Subs Hosp L2
[2023-01-05 13:01] LABS: Absolute Lymphocyte Count 0.28 X10^3/uL (0.83-4.51); Absolute Neutrophil Count 2.2 X10^3/uL (2.0-7.7); Eosinophil# 0.11 X10^3/uL; Eosinophils% 3.6 % (0-5); Hematocrit 29.2 % (37-47); Hemoglobin 9.6 g/dL (12.0-15.0); Lymphocyte # 0.28 X10^3/ul (0.83-4.51); Lymphocyte % 9.3 % (19-41); Mean Corp Hgb Conc 32.9 g/dL (32-36); Mean Corpuscular Hgb 35.3 pg (27.0-32.0); Mean Corpuscular Volume 107.4 fL (81-99); Mean Platelet Vol. 11.8 fl (6.2-12.0); Monocyte# 0.39 X10^3/uL; Monocyte% 12.9 % (0-10); NRBC Flagged by Analyzer 0 % (0-5); Neutrophil # 2.23 X10^3/uL (2.7-7.7); Neutrophil % 73.9 % (47-70); POSITIVE COUNT YES; POSITIVE DIFFERENTIAL YES; POSITIVE MORPHOLOGY YES; Platelet Count 40 K/mm3 (150-450); RBC Distribution Width CV 19.6 % (11.6-14.6); RBC Distribution Width SD 76.8 fl (35.1-43.9); Red Blood Count 2.72 M/mm3 (4.2-5.4)
[2023-01-05 13:05] LABS: Differential Indicated SCAN CRITERIA MET
[2023-01-05 13:25] LABS: ALB/GLOB Ratio 0.3 RATIO (0.9-2.4); AST(SGOT) 14 U/L (15-37); Alanine Aminotransfer ALT/SGPT 32 U/L (13-56); Albumin, Serum 1.3 g/dL (3.2-5.0); Alkaline Phosphatase 185 U/L (45-117); Anion Gap 8 (5-15); BUN 27 mg/dL (7-18); BUN/Creat Ratio 8.5 RATIO (10-20); Bilirubin, Direct 0.69 mg/dL (0.00-0.30); Chloride 102 mmol/L (98-107); Creatinine, Serum 3.18 mg/dL (0.55-1.02); EST Glomerular Filtration Rate 16 mL/min (>60); Est Glom Filt Rate - Afr Amer 20 mL/min (>60); Estimated Creatinine Clearance 21.14 ml/min; Globulin 4.1 g/dL (2.2-4.2); Glucose 262 mg/dL (74-106); Potassium 3.4 mmol/L (3.5-5.1); Protein, Total 5.4 g/dL (6.4-8.2); Sodium Level 137 mmol/L (136-145)
[2023-01-05] MEDS: Insulin Glargine-YFGN 100 UNIT/ML Pen 10 UNIT SC (13:37)
[2023-01-05 13:46] LABS: Anisocytosis 1+; Platelet Estimate MKD DEC (ADEQ)
[2023-01-05 16:15] VITALS: BP 121/63; PULSE 88; RESP 18; TEMP 36.6; TEMP 36.7; O2SAT 95
[2023-01-05 16:55] LABS: Bedside Glucose 237 mg/dL (74-106)
[2023-01-05 19:01] VITALS: PULSE 89
[2023-01-05 22:32] VITALS: BP 122/59; PULSE 91; RESP 16; TEMP 36.8; O2SAT 97
[2023-01-05] MEDS: Hydrocortisone 25 MG Suppository RC (22:34)
[2023-01-05] MEDS: Sucralfate 1 GM Tablet GT (22:36)
[2023-01-05 23:10] LABS: Bedside Glucose 282 mg/dL (74-106)
[2023-01-06] VITALS (8 sets, daily range): BP systolic 110–137; BP diastolic 57–68; PULSE 80–90; RESP 16–18; TEMP 36.3–36.8; O2SAT 92–98
[2023-01-06] MEDS: Lactulose 20 GM/30 ML UDC PO ×3 (00:37→17:39)
--- NOTE | 2023-01-06 05:12 | RAD_ITS ---
EXAM: XR CHEST, 1 VIEW CLINICAL INDICATION: chest tube TECHNIQUE: Frontal view of the chest. This report was created using [employer] report generation technology. COMPARISON: 01/05/2023 at 7:45 AM. FINDINGS: LUNGS AND PLEURAL SPACES: Unremarkable. No effusion. No change atelectasis and consolidation of the right lung and moderate right pneumothorax. HEART: Unremarkable. Cardiac silhouette not enlarged. MEDIASTINUM: Central airways and mediastinal contour are unremarkable. BONES/JOINTS: Unremarkable. SOFT TISSUES: Unremarkable. TUBES, LINES AND DEVICES: No change right-sided dialysis catheter and right-sided chest tube. UPPER ABDOMEN: TIPS right upper quadrant. RAD/Chest 1 View (Portable) IMPRESSION: 1. No change right-sided dialysis catheter and right-sided chest tube. 2. No change atelectasis and consolidation of the right lung and moderate right pneumothorax. Electronically Signed: Rahul [place] MD at 17:45 EST ,
[2023-01-06 06:28] LABS: Absolute Lymphocyte Count 0.38 X10^3/uL (0.83-4.51); Absolute Neutrophil Count 3.3 X10^3/uL (2.0-7.7); Basophil# 0.01 X10^3/uL; Basophil% 0.2 % (0-1); Eosinophil# 0.16 X10^3/uL; Eosinophils% 3.7 % (0-5); Hematocrit 28.2 % (37-47); Hemoglobin 9.3 g/dL (12.0-15.0); Lymphocyte # 0.38 X10^3/ul (0.83-4.51); Lymphocyte % 8.9 % (19-41); Mean Corpuscular Hgb 34.6 pg (27.0-32.0); Mean Corpuscular Volume 104.8 fL (81-99); Monocyte# 0.39 X10^3/uL; Monocyte% 9.1 % (0-10); NRBC Flagged by Analyzer 0 % (0-5); Neutrophil # 3.31 X10^3/uL (2.7-7.7); Neutrophil % 77.6 % (47-70); POSITIVE COUNT YES; POSITIVE DIFFERENTIAL YES; POSITIVE MORPHOLOGY YES; RBC Distribution Width CV 18.9 % (11.6-14.6); RBC Distribution Width SD 71.7 fl (35.1-43.9); Red Blood Count 2.69 M/mm3 (4.2-5.4); White Blood Count 4.3 K/mm3 (4.4-11.0)
[2023-01-06] MEDS: Levothyroxine 88 MCG Tablet PO (06:31)
[2023-01-06] MEDS: Insulin Lispro 100 UNIT/ML INSULN.PEN SC ×4 (06:31→21:39)
[2023-01-06 06:36] LABS: Differential Indicated SCAN CRITERIA MET; Platelet Count 42 K/mm3 (150-450)
[2023-01-06 06:42] LABS: ALB/GLOB Ratio 0.3 RATIO (0.9-2.4); AST(SGOT) 19 U/L (15-37); Alanine Aminotransfer ALT/SGPT 32 U/L (13-56); Albumin, Serum 1.3 g/dL (3.2-5.0); Alkaline Phosphatase 192 U/L (45-117); Anion Gap 12 (5-15); BUN 31 mg/dL (7-18); BUN/Creat Ratio 8.5 RATIO (10-20); Calcium,Total 8.3 mg/dL (8.5-10.1); Chloride 99 mmol/L (98-107); Creatinine, Serum 3.63 mg/dL (0.55-1.02); EST Glomerular Filtration Rate 14 mL/min (>60); Est Glom Filt Rate - Afr Amer 17 mL/min (>60); Estimated Creatinine Clearance 18.52 ml/min; Globulin 4.1 g/dL (2.2-4.2); Glucose 211 mg/dL (74-106); Potassium 3.3 mmol/L (3.5-5.1); Protein, Total 5.4 g/dL (6.4-8.2); Sodium Level 135 mmol/L (136-145)
[2023-01-06 07:00] LABS: Bedside Glucose 207 mg/dL (74-106)
[2023-01-06 07:05] LABS: Anisocytosis 2+; Differential Comment SCANNED; Macrocytosis 2+; Platelet Estimate MKD DEC (ADEQ)
--- NOTE | 2023-01-06 08:40 | PCM.PN.SRG ---
Subjective Subjective Patient continues to have a leak. And lung is not reexpanded on chest x-ray with chest tube in position. Objective Data Objective Data Vital Signs: Vital Signs Temp Pulse Resp BP Pulse Ox O2 Del Method 98.3 F 87 16 137/64 H 92 Room Air 01/06/23 03:47 01/06/23 03:47 01/06/23 03:47 01/06/23 03:47 01/06/23 03:47 01/06/23 03:47 Oxygen Delivery Method [4] Room Air Oxygen Delivery Method [3] Room Air Oxygen Delivery Method [2] Room Air Oxygen Delivery Method [1 ( Room Air Initial Baseline)] Oxygen Delivery Method Room Air Weight: 159 lb 9.835 oz Body Mass Index (BMI) 25.0 Intake & Output: Intake and Output for Last 24 Hours 01/04/23 01/05/23 01/06/23 23:59 23:59 23:59 Intake Total 1585 / 1585 410 / 650 440 / 440 Output Total 1460 / 1460 580 / 680 100 / 100 Balance 125 / 125 -170 / -30 340 / 340 Lab / Micro Data Result Diagrams: 01/06/23 05:33 01/06/23 05:33 Labs: Laboratory Results - last 24 hr 01/05/23 11:33: POC Glucose 291 H 01/05/23 12:50: Sodium 137, Potassium 3.4 L, Chloride 102, Carbon Dioxide 27.0, Anion Gap 8, BUN 27 H, Creatinine 3.18 H, Estim Creat Clear Calc 21.14, Est GFR (MDRD) Af Amer 20 L, Est GFR (MDRD) Non-Af 16 L, BUN/Creatinine Ratio 8.5 L, Glucose 262 H, Calcium 8.0 L, Total Bilirubin 1.10 H, Direct Bilirubin 0.69 H, AST 14 L, ALT 32, Alkaline Phosphatase 185 H, Total Protein 5.4 L, Albumin 1.3 L, Globulin 4.1, Albumin/Globulin Ratio 0.3 L 01/05/23 12:50: WBC 3.0 L, RBC 2.72 L, Hgb 9.6 L, Hct 29.2 L, MCV 107.4 H D, MCH 35.3 H, MCHC 32.9, RDW Std Deviation 76.8 H, RDW Coeff of Valentina 19.6 H, Plt Count 40 L*, MPV 11.8, Immature Gran % (Auto) 0.300, Neut % (Auto) 73.9 H, Lymph % (Auto) 9.3 L, [place] % (Auto) 12.9 H, Eos % (Auto) 3.6, Baso % (Auto) 0.0, Absolute Neuts (auto) 2.2, Absolute Lymphs (auto) 0.28 L, Nucleated RBC % 0, Diff Path Review May mitali, Platelet Estimate MKD DEC, Anisocytosis 1+ 01/05/23 16:16: POC Glucose 237 H 01/05/23 22:29: POC Glucose 282 H 01/06/23 05:33: WBC 4.3 L, RBC 2.69 L, Hgb 9.3 L, Hct 28.2 L, MCV 104.8 H, MCH 34.6 H, MCHC 33.0, RDW Std Deviation 71.7 H, RDW Coeff of Valentina 18.9 H, Plt Count 42 L*, MPV 10.0, Immature Gran % (Auto) 0.500, Neut % (Auto) 77.6 H, Lymph % (Auto) 8.9 L, [place] % (Auto) 9.1, Eos % (Auto) 3.7, Baso % (Auto) 0.2, Absolute Neuts (auto) 3.3, Absolute Lymphs (auto) 0.38 L, Nucleated RBC % 0, Differential Comment SCANNED, Diff Path Review May mitali, Platelet Estimate MKD DEC, Anisocytosis 2+, Macrocytosis 2+ 01/06/23 05:33: Sodium 135 L, Potassium 3.3 L, Chloride 99, Carbon Dioxide 24.0, Anion Gap 12, BUN 31 H, Creatinine 3.63 H, Estim Creat Clear Calc 18.52, Est GFR (MDRD) Af Amer 17 L, Est GFR (MDRD) Non-Af 14 L, BUN/Creatinine Ratio 8.5 L, Glucose 211 H, Calcium 8.3 L, Total Bilirubin 1.10 H, AST 19, ALT 32, Alkaline Phosphatase 192 H, Total Protein 5.4 L, Albumin 1.3 L, Globulin 4.1, Albumin/Globulin Ratio 0.3 L 01/06/23 06:29: POC Glucose 207 H Micro: Microbiology 01/03/23 Unknown Fluid - Thoracentesis Fluid Gram Stain - Final 01/03/23 Unknown Fluid - Thoracentesis Fluid Body Fluid Culture - Final Escherichia coli 01/03/23 Unknown Fluid - Thoracentesis Fluid Anaerobic Culture - Preliminary No growth in 48 hours. Radiography Diagnostic Testing: Radiology Impression Chest X-Ray 01/05/23 07:29 IMPRESSION: Persistent right hydropneumothorax with atelectasis and consolidation of the right lung. Electronically Signed: Deena Kingston MD at 8:59 EST , Physical Exam Resp Resp Narrative: Right chest tube in placement, good position x-ray. +leak, total of 550 cc in the canister serosanguineous currently in new canister (from yesterday) Cardio regular rate Assessment & Plan Assessment/Plan (1) Empyema: (2) Thrombocytopenia: (3) Autoimmune hepatitis: PLAN: Plan Right chest tube in place. However lung is not reexpanding well. Patient does continue to have a leak. Patient will be transferred to tertiary care facility with CT surgery. Discussed with Dr. Nelson. Vandana Nj M.D. Pager: [phone] [facility] [address] [place] [address], [facility], [address] [place] [address] Office: [phone] Charges/Coding Visit Charges Inpatient E&M: 38935 Subs Hosp L3
[2023-01-06] MEDS: Ascorbic Acid 500 MG Tablet PO (08:43)
[2023-01-06] MEDS: rifAXIMin 550 MG Tablet PO ×2 (08:44→21:34)
[2023-01-06] MEDS: Pantoprazole Sodium 20 MG Tablet PO (08:44)
[2023-01-06] MEDS: oxyCODONE 5 MG Tablet PO (08:44)
[2023-01-06] MEDS: Ursodiol 250 MG Tablet PO ×2 (08:44→21:34)
[2023-01-06] MEDS: Carvedilol 6.25 MG Tablet PO ×2 (08:45→21:35)
[2023-01-06] MEDS: Senna/Docusate Sodium 1 Tablet 2 TABLET PO ×2 (08:45→21:34)
[2023-01-06] MEDS: Menthol/Lanolin/Calamine/Znox 113 GM Tube 1 APPLIC TOPICAL (08:45)
[2023-01-06] MEDS: Spironolactone 25 MG Tablet PO (08:45)
--- NOTE | 2023-01-06 10:47 | PN.CC_ITS ---
Assessment & Plan Assessment/Plan (1) Empyema: (2) Cirrhosis of liver: (3) Thrombocytopenia: PLAN: Plan RECOMMENDATIONS: 1. Okay to narrow antibiotic spectrum from a pulmonary perspective 2. Chest tube per general surgery 3. Recommend transfer for CT surgery evaluation 4. Lower concern for need for pressor therapy 5. Continue daily chest x-rays 6. Continue lactulose and rifaximin 7. Hemodialysis per nephrology IMPRESSIONS: 1. Right empyema Chest x-ray shows significant right pleural effusion on presentation. Patient with almost 2 L removed yesterday with labs consistent with empyema. Repeat imaging today shows some amount of residual fluid. Patient was recently admitted with Klebsiella aerogenes that was sensitive to ceftriaxone, however it appears patient has E. coli at this time from the chest. Unclear if this is secondary to GI spread given TIPS procedure. Patient continues to have a leak w ith failure to expand. We will continue with daily chest x-rays, but patient may require transfer for CT surgery if not improving by Saturday. 2.??ESRD secondary to hypertension and diabetes mellitus Patient reportedly being worked up for a possible transplant.? Patient did have dialysis earlier today.? Nephrology has been consulted.? Defer dialysis timing to them. Patient's blood pressure appears to be tolerating problem #1 well. 3.??Hypertension/cirrhosis/chronic thrombocytopenia/schizoaffective disorder Complicates care, management, recovery and prognosis.? Clinical suspicion for thrombocytopenia secondary to hepatic function.? Blood pressure appears to be appropriate at this time.? Patient reportedly does use insulin at baseline.? Sliding scale likely sufficient at this time given patient's variable p.o. intake. Subjective Subjective Patient did okay overnight. No hemodynamic issues have been reported. Patient is denying any chest pain at this time. Patient was able to tolerate breakfast. Objective Data Objective Data Vital Signs: Vital Signs Temp Pulse Resp BP Pulse Ox O2 Del Method 36.7 C 83 18 110/68 98 Room Air 01/06/23 09:45 01/06/23 09:45 01/06/23 09:45 01/06/23 09:45 01/06/23 09:45 01/06/23 09:45 Oxygen Delivery Method [4] Room Air Oxygen Delivery Method [3] Room Air Oxygen Delivery Method [2] Room Air Oxygen Delivery Method [1 ( Room Air Initial Baseline)] Oxygen Delivery Method Room Air Weight: 72.4 kg Body Mass Index (BMI) 25.0 Intake & Output: Intake and Output for Last 24 Hours 01/04/23 01/05/23 01/06/23 23:59 23:59 23:59 Intake Total 1585 / 1585 410 / 650 440 / 440 Output Total 1460 / 1460 580 / 680 100 / 100 Balance 125 / 125 -170 / -30 340 / 340 Lab / Micro Data Attestation: I reviewed the patient's lab results. Result Diagrams: 01/06/23 05:33 01/06/23 05:33 Labs: Laboratory Results - last 24 hr 01/05/23 11:33: POC Glucose 291 H 01/05/23 12:50: Sodium 137, Potassium 3.4 L, Chloride 102, Carbon Dioxide 27.0, Anion Gap 8, BUN 27 H, Creatinine 3.18 H, Estim Creat Clear Calc 21.14, Est GFR (MDRD) Af Amer 20 L, Est GFR (MDRD) Non-Af 16 L, BUN/Creatinine Ratio 8.5 L, Glucose 262 H, Calcium 8.0 L, Total Bilirubin 1.10 H, Direct Bilirubin 0.69 H, AST 14 L, ALT 32, Alkaline Phosphatase 185 H, Total Protein 5.4 L, Albumin 1.3 L , Globulin 4.1, Albumin/Globulin Ratio 0.3 L 01/05/23 12:50: WBC 3.0 L, RBC 2.72 L, Hgb 9.6 L, Hct 29.2 L, MCV 107.4 H D, MCH 35.3 H, MCHC 32.9, RDW Std Deviation 76.8 H, RDW Coeff of Valentina 19.6 H, Plt Count 40 L*, MPV 11.8, Immature Gran % (Auto) 0.300, Neut % (Auto) 73.9 H, Lymph % (Auto) 9.3 L, [place] % (Auto) 12.9 H, Eos % (Auto) 3.6, Baso % (Auto) 0.0, Absolute Neuts (auto) 2.2, Absolute Lymphs (auto) 0.28 L, Nucleated RBC % 0, Diff Path Review March, Platelet Estimate MKD DEC, Anisocytosis 1+ 01/05/23 16:16: POC Glucose 237 H 01/05/23 22:29: POC Glucose 282 H 01/06/23 05:33: WBC 4.3 L, RBC 2.69 L, Hgb 9.3 L, Hct 28.2 L, MCV 104.8 H, MCH 34.6 H, MCHC 33.0, RDW Std Deviation 71.7 H, RDW Coeff of Valentina 18.9 H, Plt Count 42 L*, MPV 10.0, Immature Gran % (Auto) 0.500, Neut % (Auto) 77.6 H, Lymph % (Auto) 8.9 L, [place] % (Auto) 9.1, Eos % (Auto) 3.7, Baso % (Auto) 0.2, Absolute Neuts (auto) 3.3, Absolute Lymphs (auto) 0.38 L, Nucleated RBC % 0, Differential Comment SCANNED, Diff Path Review March, Platelet Estimate MKD DEC, Anisocytosis 2+, Macrocytosis 2+ 01/06/23 05:33: Sodium 135 L, Potassium 3.3 L, Chloride 99, Carbon Dioxide 24.0, Anion Gap 12, BUN 31 H, Creatinine 3.63 H, Estim Creat Clear Calc 18.52, Est GFR (MDRD) Af Amer 17 L, Est GFR (MDRD) Non-Af 14 L, BUN/Creatinine Ratio 8.5 L, Glucose 211 H, Calcium 8.3 L, Total Bilirubin 1.10 H, AST 19, ALT 32, Alkaline Phosphatase 192 H, Total Protein 5.4 L, Albumin 1.3 L, Globulin 4.1, Albumin/Globulin Ratio 0.3 L 01/06/23 06:29: POC Glucose 207 H Micro: Microbiology 01/03/23 Unknown Fluid - Thoracentesis Fluid Gram Stain - Final 01/03/23 Unknown Fluid - Thoracentesis Fluid Body Fluid Culture - Final Escherichia coli 01/03/23 Unknown Fluid - Thoracentesis Fluid Anaerobic Culture - Preliminary No growth in 48 hours. Physical Exam Const alert and no apparent distress Constitutional Narrative: No conversational dyspnea noted. Appears older than stated age. General Appearance: cooperative HEENT normocephalic and head/scalp atraumatic Eyes PERRL and EOMs intact bilaterally Neck supple and No nodes Chest Chest Narrative: Right-sided chest tube. Still with air leak. Vacutainer changed prior to my evaluation Resp clear to auscultation bilaterally Resp Narrative: Right-sided squeaks Effort and Inspection: tachypneic Auscultation: diminished lung sounds; Negative for rales, rhonchi or wheezes Percussion: Negative for dullness Cardio regular rate, regular rhythm, S1 normal heart sound, S2 normal heart sound, no rub and no gallops GI soft to palpation and non-tender Extremity General Extremity: edema Skin no rashes or lesions noted Neuro CN's II-XII intact bilaterally and moves all extremities Psych Activity / Motor Behavior: restless Mood & Affect: anxious and flat affect Charges/Coding Visit Charges Inpatient E&M: 67098 Subs Hosp L2
[2023-01-06] MEDS: Insulin Glargine-YFGN 100 UNIT/ML Pen 25 UNIT SC (11:02)
[2023-01-06 11:25] LABS: Bedside Glucose 235 mg/dL (74-106)
[2023-01-06] MEDS: Potassium Chloride Oral Tablet 20 MEQ 60 MEQ PO (12:18)
--- NOTE | 2023-01-06 13:00 | PN.HOSP_ITS ---
Reason for Visit Reason for Visit: Confusion/mental status change Subjective Subjective No issues overnight. Patient's only complaint is right-sided chest pain related to her chest tube placement. I did discuss the need for transfer with evaluation by CT surgery and patient is agreeable to transfer. She would like to try to stay in the [facility] if possible. Objective Data Objective Data Vital Signs: Vital Signs Temp Pulse Resp BP Pulse Ox O2 Del Method 98.0 F 83 18 110/68 98 Room Air 01/06/23 12:00 01/06/23 12:00 01/06/23 12:00 01/06/23 12:00 01/06/23 12:00 01/06/23 12:00 Oxygen Delivery Method [4] Room Air Oxygen Delivery Method [3] Room Air Oxygen Delivery Method [2] Room Air Oxygen Delivery Method [1 ( Room Air Initial Baseline)] Oxygen Delivery Method Room Air Weight: 72.4 kg Body Mass Index (BMI) 25.0 Intake & Output: Intake and Output for Last 24 Hours 01/04/23 01/05/23 01/06/23 23:59 23:59 23:59 Intake Total 1585 / 1585 410 / 650 920 / 920 Output Total 1460 / 1460 580 / 680 280 / 280 Balance 125 / 125 -170 / -30 640 / 640 Lab / Micro Data Result Diagrams: 01/06/23 05:33 01/06/23 05:33 Labs: Laboratory Results - last 24 hr 01/05/23 12:50: Sodium 137, Potassium 3.4 L, Chloride 102, Carbon Dioxide 27.0, Anion Gap 8, BUN 27 H, Creatinine 3.18 H, Estim Creat Clear Calc 21.14, Est GFR (MDRD) Af Amer 20 L, Est GFR (MDRD) Non-Af 16 L, BUN/Creatinine Ratio 8.5 L, Glucose 262 H, Calcium 8.0 L, Total Bilirubin 1.10 H, Direct Bilirubin 0.69 H, AST 14 L, ALT 32, Alkaline Phosphatase 185 H, Total Protein 5.4 L, Albumin 1.3 L , Globulin 4.1, Albumin/Globulin Ratio 0.3 L 01/05/23 12:50: WBC 3.0 L, RBC 2.72 L, Hgb 9.6 L, Hct 29.2 L, MCV 107.4 H D, MCH 35.3 H, MCHC 32.9, RDW Std Deviation 76.8 H, RDW Coeff of Valentina 19.6 H, Plt Count 40 L*, MPV 11.8, Immature Gran % (Auto) 0.300, Neut % (Auto) 73.9 H, Lymph % (Auto) 9.3 L, [place] % (Auto) 12.9 H, Eos % (Auto) 3.6, Baso % (Auto) 0.0, Absolute Neuts (auto) 2.2, Absolute Lymphs (auto) 0.28 L, Nucleated RBC % 0, Diff Path Review May mitali, Platelet Estimate MKD DEC, Anisocytosis 1+ 01/05/23 16:16: POC Glucose 237 H 01/05/23 22:29: POC Glucose 282 H 01/06/23 05:33: WBC 4.3 L, RBC 2.69 L, Hgb 9.3 L, Hct 28.2 L, MCV 104.8 H, MCH 34.6 H, MCHC 33.0, RDW Std Deviation 71.7 H, RDW Coeff of Valentina 18.9 H, Plt Count 42 L*, MPV 10.0, Immature Gran % (Auto) 0.500, Neut % (Auto) 77.6 H, Lymph % (Auto) 8.9 L, [place] % (Auto) 9.1, Eos % (Auto) 3.7, Baso % (Auto) 0.2, Absolute Neuts (auto) 3.3, Absolute Lymphs (auto) 0.38 L, Nucleated RBC % 0, Differential Comment SCANNED, Diff Path Review March mitali, Platelet Estimate MKD DEC, Anisocytosis 2+, Macrocytosis 2+ 01/06/23 05:33: Sodium 135 L, Potassium 3.3 L, Chloride 99, Carbon Dioxide 24.0, Anion Gap 12, BUN 31 H, Creatinine 3.63 H, Estim Creat Clear Calc 18.52, Est GFR (MDRD) Af Amer 17 L, Est GFR (MDRD) Non-Af 14 L, BUN/Creatinine Ratio 8.5 L, Glucose 211 H, Calcium 8.3 L, Total Bilirubin 1.10 H, AST 19, ALT 32, Alkaline Phosphatase 192 H, Total Protein 5.4 L, Albumin 1.3 L, Globulin 4.1, Albumin/Globulin Ratio 0.3 L 01/06/23 06:29: POC Glucose 207 H 01/06/23 10:58: POC Glucose 235 H Micro: Microbiology 01/03/23 Unknown Fluid - Thoracentesis Fluid Gram Stain - Final 01/03/23 Unknown Fluid - Thoracentesis Fluid Body Fluid Culture - Final Escherichia coli 01/03/23 Unknown Fluid - Thoracentesis Fluid Anaerobic Culture - Preliminary No growth in 48 hours. Physical Exam Narrative . Const alert, oriented x3 and no apparent distress Constitutional Narrative: Middle-age, white female, lying in bed awake, nursing at bedside, appears much older than stated age, appears chronically ill HEENT head/scalp atraumatic and moist oral mucous membranes HEENT Narrative: A dentulous, Mallampati 2, no thrush Resp normal respiratory effort, no retractions and no use of accessory muscles Resp Narrative: Right-sided chest tube in place with airleak noted, no signs of respiratory distress, patient on room air, breath sounds diminished on right as compared to left Auscultation: Negative for rales, rhonchi or wheezes Cardio regular rate, regular rhythm, S1 normal heart sound, S2 normal heart sound, no murmurs, no rub, no gallops and no clicks GI normal to inspection, nondistended, normoactive bowel sounds, soft to palpation and non-tender GI Narrative: Mild ascites noted with no significant distention Extremity Extremity Narrative: Trace peripheral edema, no cyanosis or clubbing, 2+ pedal pulses Neuro oriented x3, moves all extremities and no focal motor deficits Neuro Narrative: Significant generalized weakness, no focal motor deficits Speech: speech normal Psych Psych Narrative: Affect is flat and mood seems depressed Assessment & Plan Assessment/Plan (1) Empyema: (2) Toxic metabolic encephalopathy: (3) Hepatic encephalopathy: (4) Thrombocytopenia: (5) Anemia: (6) Leukopenia: PLAN: Plan Acute metabolic/toxic encephalopathy -Suspect multifactorial with infection and history of autoimmune hepatitis -Ammonia level was elevated on presentation -Continued scheduled lactulose -Continue rifaximin -Mental status is close to baseline -Goal is for 2-3 bowel movements daily Right-sided empyema -Significant pleural effusion noted on presentation -2 L removed with thoracentesis and labs consistent with empyema -Chest tube placed by general surgery on 01/04/2023 -Patient continues to have a leak and chest x-ray appears with large pneumothorax and lack of lung expansion -Per discussion with general surgery and pulmonary medicine we all feel that she needs CT surgery evaluation -Transfer pending to [facility] -Fluid from thoracentesis is currently showing E. coli that is pansensitive -ID is following so we will maintain cefepime until reevaluated however suspect patient will be able to be narrowed if cultures remain stable -Appreciate pulmonary and infectious disease input Chronic anemia -Hemoglobin is 9.3 today -No obvious signs of bleeding -Continue Protonix 20 mg daily -Continue Carafate CKD stage IV -Remains on dialysis Saturday and Saturday -Started on dialysis 10/13/2020 to include [facility] [place] -No signs of renal recovery -EPO/IV iron per firmware manager -Neurology is following -Patient was on transplant list for simultaneous liver/kidney currently off secondary debility Pancytopenia -Chronic related to her cirrhosis -Continue to monitor DM-2 -Blood sugars overall better but still elevated with a fasting glucose this morning at 211 -Increase Lantus from 25 units to 30 units daily -Add prandial insulin scheduled at 6 units 3 times daily -Sliding scale -Accu-Cheks as ordered -Continue to monitor for needed adjustment Hypertension -Continue carvedilol GERD -Continue Protonix 20 mg daily -Continue Carafate Vitamin D deficiency -Restart ergocalciferol discharge Hypothyroidism -cont Levothyroxine 88 mcg Cirrhosis secondary to autoimmune hepatitis -Continue rifaximin -Continue lactulose 20 g every 6 -Continue ursodiol Bipolar disorder -Continue medications DVT prophylaxis -Continue SCDs -Chemoprophylaxis on hold secondary to anemia and thrombocytopenia on presentation CODE STATUS? -full code Disposition: -Patient will need transfer to tertiary center for CT surgery evaluation with lung not reexpanding and empyema present. Awaiting acceptance at [facility] Charges/Coding Visit Charges Inpatient E&M: 56956 Subs Hosp L2
--- NOTE | 2023-01-06 16:23 | DS.PCM_ITS ---
Providers Date of Admission: 01/02/23 Date of Discharge: 01/06/23 Primary Care Physician: Dr. Danial Ring MD Consultations 01/02/23 07:31 Consult: Nephrology Routine Consulting Provider: Katy Tejeda Reason for Consult: on HD EMERGENT Consult: No Notified: Yes Date Notified: 01/02/23 Time Notified: 08:28 Method of Notification: Answering Service 01/04/23 11:36 Consult: Infectious Disease Routine Consulting Provider: Jon Melendez Reason for Consult: Empyema of lung, VRE Ucx EMERGENT Consult: No Notified: Yes Date Notified: 01/04/23 Time Notified: 11:36 Method of Notification: Verbal 01/04/23 11:40 Consult: Admission Nurse / Pulmonary Medicine Routine Consulting Provider: Pulmonary Medicine [facility] Reason for Consult: empyema of right pleural space EMERGENT Consult: No Notified: Yes Date Notified: 01/04/23 Time Notified: 11:40 Method of Notification: Verbal Reason For Visit: HEPATIC ENCEPHALOPATHY Diagnosis Discharge Diagnosis (1) Empyema: Status: Acute Code(s): J86.9 - Pyothorax without fistula (2) Toxic metabolic encephalopathy: Status: Acute Code(s): G92.8 - Other toxic encephalopathy (3) Hepatic encephalopathy: Status: Acute Code(s): K76.82 - Hepatic encephalopathy (4) Thrombocytopenia: Status: Acute Code(s): D69.6 - Thrombocytopenia, unspecified (5) Anemia: Status: Acute Code(s): D64.9 - Anemia, unspecified (6) Leukopenia: Status: Acute Code(s): D72.819 - Decreased white blood cell count, unspecified Medications at Discharge Home Medications rifaximin 550 mg tablet (Xifaxan) 550 mg PO BID IBS 11/04/17 sertraline 50 mg tablet 75 mg PO QHS DEPRESSION 03/20/21 sucralfate 1 gram tablet (Carafate) 1 g PO QHS STOMACH 03/20/21 ursodiol 300 mg capsule 300 mg PO BID LIVER 04/25/21 carbamazepine 100 mg tablet,extended release,12 hr 100 mg PO BID bipolar 04/29/21 zinc 50 mg tablet 50 mg PO DAILY SUPPLEMENT 09/18/21 carvedilol 3.125 mg tablet 6.25 mg PO BID HEART 03/23/22 lurasidone 40 mg tablet 40 mg PO LUNCH MOOD 04/16/22 torsemide 20 mg tablet 80 mg PO DAILY diuretic 04/16/22 ergocalciferol (vitamin D2) 1,250 mcg (50,000 unit) capsule (Vitamin D2) 1,250 unit PO MOTH supplement 05/14/22 insulin lispro 100 unit/mL subcutaneous pen (Humalog KwikPen (U-100) Insulin) 7 unit subcut ACHS diabetes 05/14/22 levothyroxine 75 mcg tablet 75 mcg PO DAILY THYROID 05/14/22 ondansetron 4 mg disintegrating tablet 8 mg PO Q8H PRN Nausea And Vomiting 05/14/22 lactulose 20 gram/30 mL oral solution 20 g PO BID liver failure 06/11/22 ascorbic acid (vitamin C) 500 mg tablet 500 mg PO DAILY supplement 11/03/22 bisacodyl 10 mg rectal suppository 10 mg IL DAILY PRN Constipation 11/03/22 darbepoetin sree in polysorbat 40 mcg/0.4 mL in polysorbate injection syringe 40 mcg subcut QWEEK bone marrow 11/03/22 dextromethorphan HBr 10 mg/15 mL oral syrup 10 mg PO Q6H PRN Cough 11/03/22 insulin degludec 100 unit/mL (3 mL) subcutaneous pen (Tresiba FlexTouch U-100 insulin) 10 unit subcut DAILY diabetes 11/03/22 insulin glargine 100 unit/mL (3 mL) subcutaneous pen (Lantus Solostar U-100 Insulin) 10 unit subcut DAILY DM2 11/03/22 magnesium hydroxide 400 mg/5 mL oral suspension (Milk of Magnesia) 2,400 mg PO DAILY PRN Constipation 11/03/22 cefdinir 300 mg capsule 300 mg PO BID #10 caps 12/11/22 omeprazole 20 mg capsule,delayed release 20 mg PO DAILY GERD 12/14/22 dexamethasone 4 mg tablet 6 mg PO DAILY Renal Disease 01/02/23 guaifenesin 400 mg tablet 400 mg PO DAILY Congestion 01/02/23 hydrocortisone acetate 25 mg rectal suppository (Anusol-HC) 25 mg IL BID Hemorrhoids 01/02/23 Hospital Course Summary of Care Provided Hospital Course: Ms. Lau is a 52-year-old white female with known autoimmune hepatitis and multiple chronic medical problems who presented to the emergency department at [facility] on 01/02/2023 with acute mental status changes.? She presented from the nursing facility where she resides.? Per the report from the [place] [facility] they were rounding and she was noted to have depressed mental status and was therefore sent to the emergency department for evaluation.? Upon presentation, she was found to have significant hyperammonemia and an NG tube was placed and lactulose was ordered at that time.? Patient was also found to have a large right-sided pleural effusion for which thoracentesis was performed. ? Fluid studies were consistent with empyema.? Chest tube was placed and cultures are currently growing E. coli. Mental status has improved and NG has since been removed. Her ammonia level has normalized. She has remained on IV antibiotics in the form of cefepime for her empyema per infectious diseases recommendations. She has remained hemodynamically stable and on room air throughout her hospital stay. The chest tube was placed on 01/04/2023 but unfortunately her lung is not reexpanding well and she does continue to have a leak. It appears that her TIPS is malfunctioning with her recurrent pleural effusions. Given her lack of reexpansion, empyema, and recurrent pleural effusions transfer was pursued and she was excepted by Dr. Marcos from the hepatology service at [facility]. A bed became available for her on the evening of 01/06/2023 and she was discharged to [facility] in stable condition. Discharge diagnoses: Acute metabolic/toxic encephalopathy secondary to hepatic encephalopathy Right-sided empyema/hepatohydrothorax Chronic anemia CKD stage IV Pancytopenia DM-2 Hypertension GERD Vitamin D deficiency Hypothyroidism Cirrhosis secondary to autoimmune hepatitis Bipolar disorder Debility Physical Exam Narrative . Const alert, oriented x3 and no apparent distress Constitutional Narrative: Middle-age, white female, lying in bed awake, nursing at bedside, appears much older than stated age, appears chronically ill General Appearance: cooperative, comfortable and well kempt Orientation / Consciousness: awake, oriented to person, oriented to place and oriented to time Exam Limitations: no limitations Nutritional Appearance: thin HEENT normocephalic, head/scalp atraumatic, hearing grossly normal bilaterally and moist oral mucous membranes HEENT Narrative: Mallampati 2, edentulous, no thrush Resp normal respiratory effort, no retractions and no use of accessory muscles Resp Narrative: Right-sided chest tube in place with airleak noted, no signs of respiratory distress, patient on room air, breath sounds diminished on right as compared to left Auscultation: Negative for rales, rhonchi or wheezes Cardio regular rate, regular rhythm, S1 normal heart sound, S2 normal heart sound, no murmurs, no rub, no gallops and no clicks GI normal to inspection, nondistended, normoactive bowel sounds, soft to palpation and non-tender GI Narrative: Mild ascites noted with no significant distention Extremity no clubbing, cyanosis or edema Extremity Narrative: Trace peripheral edema, no cyanosis or clubbing, 2+ pedal pulses Neuro oriented x3, moves all extremities and no focal motor deficits Neuro Narrative: Significant generalized weakness, no focal motor deficits Speech: speech normal Psych Psych Narrative: Affect is flat and mood seems depressed Weight / BMI Weight Weight: 72.4 kg Body Mass Index (BMI) 25.0 ABG / Lab / Microbiology Data Result Diagrams: 01/06/23 05:33 01/06/23 05:33 Laboratory: Laboratory Results - last 24 hr 01/05/23 16:16: POC Glucose 237 H 01/05/23 22:29: POC Glucose 282 H 01/06/23 05:33: WBC 4.3 L, RBC 2.69 L, Hgb 9.3 L, Hct 28.2 L, MCV 104.8 H, MCH 34.6 H, MCHC 33.0, RDW Std Deviation 71.7 H, RDW Coeff of Valentina 18.9 H, Plt Count 42 L*, MPV 10.0, Immature Gran % (Auto) 0.500, Neut % (Auto) 77.6 H, Lymph % (Auto) 8.9 L, [place] % (Auto) 9.1, Eos % (Auto) 3.7, Baso % (Auto) 0.2, Absolute Neuts (auto) 3.3, Absolute Lymphs (auto) 0.38 L, Nucleated RBC % 0, Differential Comment SCANNED, Diff Path Review May foll, Platelet Estimate MKD DEC, Anisocytosis 2+, Macrocytosis 2+ 01/06/23 05:33: Sodium 135 L, Potassium 3.3 L, Chloride 99, Carbon Dioxide 24.0, Anion Gap 12, BUN 31 H, Creatinine 3.63 H, Estim Creat Clear Calc 18.52, Est GFR (MDRD) Af Amer 17 L, Est GFR (MDRD) Non-Af 14 L, BUN/Creatinine Ratio 8.5 L, Glucose 211 H, Calcium 8.3 L, Total Bilirubin 1.10 H, AST 19, ALT 32, Alkaline Phosphatase 192 H, Total Protein 5.4 L, Albumin 1.3 L, Globulin 4.1, Albumin/Globulin Ratio 0.3 L 01/06/23 06:29: POC Glucose 207 H 01/06/23 10:58: POC Glucose 235 H Microbiology: Microbiology 01/03/23 Unknown Fluid - Thoracentesis Fluid Gram Stain - Final 01/03/23 Unknown Fluid - Thoracentesis Fluid Body Fluid Culture - Final Escherichia coli 01/03/23 Unknown Fluid - Thoracentesis Fluid Anaerobic Culture - Preliminary No growth in 48 hours. Meaningful Use Info Meaningful Use Diagnoses (Choose all that apply): None applicable Discharge Plan Admission Admit Date/Time: 01/02/23 01:53 Primary Reason for Your Visit: confusion Attending Provider: Rachel Nelson Primary Care Provider: Danial Ring Consulting Providers: Qi Martinez ; Katy Tejeda ; Mando Alfonso ; Patel Arboleda ; Omar Allred ; Erich Alexander ; Mouna Rios NP ; Jon Boyle ; Terry Parry Discharge Orders/Prescriptions Prescriptions: No Action Xifaxan 550 MG tablet 550 mg PO BID sucralfate [Carafate] 1 gram Tablet 1 g PO QHS sertraline 50 mg Tablet 75 mg PO QHS ursodiol 300 mg capsule 300 mg PO BID Label Comments: . carbamazepine 100 mg Tablet Extended Release 12 Hr 100 mg PO BID zinc 50 mg Tablet 50 mg PO DAILY Label Comments: PER PHARMACY NOT COVERED BY INSURANCE THROUGH [employer]. PHARMACY UNSURE IF SHE IS GETTING OTC carvedilol 3.125 mg tablet 6.25 mg PO BID torsemide 20 mg Tablet 80 mg PO DAILY Hold Instructions: Hold for 3 days then resume torsemide 20 mg daily lurasidone 40 mg Tablet 40 mg PO LUNCH ergocalciferol (vitamin D2) [Vitamin D2] 1,250 mcg (50,000 unit) capsule 1,250 unit PO MOTH levothyroxine 75 mcg tablet 75 mcg PO DAILY ondansetron 4 mg tablet,disintegrating 8 mg PO Q8H PRN (Reason: Nausea And Vomiting) insulin lispro [Humalog KwikPen Insulin] 100 unit/mL insulin pen 7 unit subcut ACHS Label Comments: +SLIDING SCALE UP TO 40 UNITS DAILY. lactulose 20 gram/30 mL solution 20 g PO BID Rx Instructions: titrate for 3-4 BMs per day bisacodyl 10 mg Suppository 10 mg IL DAILY PRN (Reason: Constipation) dextromethorphan HBr 10 mg/15 mL Syrup 10 mg PO Q6H PRN (Reason: Cough) darbepoetin sree in polysorbat 40 mcg/0.4 mL Syringe 40 mcg SUBCUT QWEEK insulin degludec [Tresiba FlexTouch U-100] 100 unit/mL (3 mL) Insulin Pen 10 unit SUBCUT DAILY ascorbic acid (vitamin C) 500 mg tablet 500 mg PO DAILY magnesium hydroxide [Milk of Magnesia] 400 mg/5 mL Suspension 2,400 mg PO DAILY PRN (Reason: Constipation) insulin glargine [Lantus Solostar U-100 Insulin] 100 unit/mL (3 mL) Insulin Pen 10 unit subcut DAILY cefdinir 300 mg capsule 300 mg PO BID Qty: 10 0RF Rx Instructions: for 4 days, ending on 12/16/22 omeprazole 20 mg Capsule,Delayed Release(Dr/Ec) 20 mg PO DAILY hydrocortisone acetate [Anusol-HC] 25 mg suppository 25 mg IL BID dexamethasone 4 mg tablet 6 mg PO DAILY guaifenesin 400 mg tablet 400 mg PO DAILY Label Comments: Take 1 tablet by mouth once a day Referrals / Follow Up: Danial Ring MD [Primary Care Provider] - Disposition Disposition (needs filled in before D/C Order can be placed): Acute Care Hospital Charges/Coding Visit Charges Inpatient E&M: 57305 Disch Hosp
[2023-01-06] MEDS: Insulin Lispro 100 UNIT/ML INSULN.PEN 6 UNIT SC (16:24)
[2023-01-06 16:51] LABS: Bedside Glucose 235 mg/dL (74-106)
--- NOTE | 2023-01-06 18:38 | NURSING ---
Pt asked this nurse to notify her significant other, Sj, that she was being transferred to [facility]. This nurse called, and relayed the information to Sj.
--- NOTE | 2023-01-06 18:53 | NURSING ---
This RN received a phone call from patients mother, Denise Coulter. Denise was upset that she was notified of transfer to [facility] suddenly, and was worried that her daughter was declining and unstable. This RN informed Denise that the patient requested a phone call be made to significant other, Sj, and patient was alert and oriented at the time. This RN explained that patient had stable vitals, was alert, and needed to be transferred to tertiary care center for a procedure that could not be performed here. This RN explained that the hospital/staff was monitoring her closely for the duration of her stay/admission. Denise thanked this nurse for explaining. Will continue to monitor.
--- NOTE | 2023-01-06 20:19 | PCM.PN.REN ---
Subjective Subjective Following for ESRD. The patient still has right-sided chest pain. She has right chest tube. She is scheduled for transfer to [facility] for evaluation by CT surgery. Objective Data Objective Data Vital Signs: Vital Signs Temp Pulse Resp BP Pulse Ox O2 Del Method 97.9 F 80 18 113/57 L 97 Room Air 01/06/23 15:45 01/06/23 15:45 01/06/23 15:45 01/06/23 15:45 01/06/23 15:45 01/06/23 15:45 Oxygen Delivery Method [4] Room Air Oxygen Delivery Method [3] Room Air Oxygen Delivery Method [2] Room Air Oxygen Delivery Method [1 ( Room Air Initial Baseline)] Oxygen Delivery Method Room Air Weight: 72.4 kg Body Mass Index (BMI) 25.0 Intake & Output: Intake and Output for Last 24 Hours 01/04/23 01/05/23 01/06/23 23:59 23:59 23:59 Intake Total 1585 / 1585 410 / 650 1330 / 1330 Output Total 1460 / 1460 580 / 680 320 / 320 Balance 125 / 125 -170 / -30 1010 / 1010 Lab / Micro Data Result Diagrams: 01/06/23 05:33 01/06/23 05:33 Labs: Laboratory Results - last 24 hr 01/05/23 22:29: POC Glucose 282 H 01/06/23 05:33: WBC 4.3 L, RBC 2.69 L, Hgb 9.3 L, Hct 28.2 L, MCV 104.8 H, MCH 34.6 H, MCHC 33.0, RDW Std Deviation 71.7 H, RDW Coeff of Valentina 18.9 H, Plt Count 42 L*, MPV 10.0, Immature Gran % (Auto) 0.500, Neut % (Auto) 77.6 H, Lymph % (Auto) 8.9 L, [place] % (Auto) 9.1, Eos % (Auto) 3.7, Baso % (Auto) 0.2, Absolute Neuts (auto) 3.3, Absolute Lymphs (auto) 0.38 L, Nucleated RBC % 0, Differential Comment SCANNED, Diff Path Review May , Platelet Estimate MKD DEC, Anisocytosis 2+, Macrocytosis 2+ 01/06/23 05:33: Sodium 135 L, Potassium 3.3 L, Chloride 99, Carbon Dioxide 24.0, Anion Gap 12, BUN 31 H, Creatinine 3.63 H, Estim Creat Clear Calc 18.52, Est GFR (MDRD) Af Amer 17 L, Est GFR (MDRD) Non-Af 14 L, BUN/Creatinine Ratio 8.5 L, Glucose 211 H, Calcium 8.3 L, Total Bilirubin 1.10 H, AST 19, ALT 32, Alkaline Phosphatase 192 H, Total Protein 5.4 L, Albumin 1.3 L, Globulin 4.1, Albumin/Globulin Ratio 0.3 L 01/06/23 06:29: POC Glucose 207 H 01/06/23 10:58: POC Glucose 235 H 01/06/23 16:22: POC Glucose 235 H Micro: Microbiology 01/06/23 16:30 Nasal Secretion SARS-CoV-2 Antigen (Rapid) - Final 01/03/23 Unknown Fluid - Thoracentesis Fluid Gram Stain - Final 01/03/23 Unknown Fluid - Thoracentesis Fluid Body Fluid Culture - Final Escherichia coli 01/03/23 Unknown Fluid - Thoracentesis Fluid Anaerobic Culture - Preliminary No growth in 48 hours. Radiography Diagnostic Testing: Radiology Impression Chest X-Ray 01/06/23 05:12 IMPRESSION: 1. No change right-sided dialysis catheter and right-sided chest tube. 2. No change atelectasis and consolidation of the right lung and moderate right pneumothorax. Electronically Signed: Rahul Lambert MD at 17:45 EST , Physical Exam Narrative Resting quietly, no apparent distress S1, S2, RRR Lung sounds clear anteriorly, no wheezes, rhonchi or rales noted Abdomen soft, positive bowel sounds No edema to bilateral lower legs, trace edema bilateral hands NG tube intact Tunneled HD catheter dressing clean, dry and intact Assessment & Plan Assessment/Plan (1) ESRD (end stage renal disease): (2) Hepatic encephalopathy: PLAN: Plan - ESRD on hemodialysis Saturday at [facility]. Patient was started on dialysis October 13, 2022 at [facility]. There has been no evidence of renal recovery. We will continue dialysis on usual schedule Saturday. No need for dialysis today. Next dialysis will be scheduled for tomorrow if she is not yet transferred to [facility]. - History of cirrhosis.? Mental status improving. As per last nephrology note, she was on list for simultaneous liver and kidney transplant but deactivated due to general debility and other illnesses. Platelet count low (she has pancytopenia likely related to liver disease). Patient does not receive heparin with dialysis. Has NG and receiving lactulose and Xifaxan. Last ammonia level has improved. Brain CT no acute intracranial abnormality. -Anemia of chronic disease. Will monitor hemoglobin trends, hemoglobin is 9.3. Patient receives MANINDER and iron at kidney Center. -Hypertension. Blood pressures acceptable on carvedilol and Aldactone. -Large right pleural effusion likely empyema; underwent thoracentesis on 01/03/2023 with around 1.8 L fluid removed. Keep O>I with hemodialysis. She is scheduled for transfer to [facility] to evaluate her reexpanding empyema.
[2023-01-06] MEDS: Sucralfate 1 GM Tablet PO (21:35)
[2023-01-06 23:01] LABS: Bedside Glucose 200 mg/dL (74-106)
--- NOTE | 2023-01-06 23:47 | NURSING ---
Report given to transport personnel pt was given back her medications that were locked up. Called [facility] for update. Pt left with ambulance staff and belongings at this time.
[2023-01-07 13:23] LABS: Pathologist Review Reviewed
[2023-01-08 09:25] LABS: Pathologist Review Reviewed
== END 2023-01-06 23:54 | disposition short-term general hospital (02) | DRG 441 ==
LOC: ED 01-02 01:25 → PCU 01-02 02:35
PROVIDERS: Internal Medicine; Nurse Practitioner Adult Health; Admitting Provider Internal Medicine; Emergency Provider Emergency Medicine; PCP Family Medicine; Visit Provider Internal Medicine
DX: K76.82 Hepatic encephalopathy (principal); J86.9 Pyothorax without fistula; G92.8 Other toxic encephalopathy; N18.6 End stage renal disease; D61.818 Other pancytopenia; I12.0 Hypertensive chronic kidney disease with stage 5 chronic kidney disease or end stage renal disease; J90 Pleural effusion, not elsewhere classified; F25.1 Schizoaffective disorder, depressive type; D63.1 Anemia in chronic kidney disease; E11.22 Type 2 diabetes mellitus with diabetic chronic kidney disease; K75.4 Autoimmune hepatitis; E11.42 Type 2 diabetes mellitus with diabetic polyneuropathy; F31.9 Bipolar disorder, unspecified; K74.69 Other cirrhosis of liver; Z79.4 Long term (current) use of insulin; E11.65 Type 2 diabetes mellitus with hyperglycemia; Z99.2 Dependence on renal dialysis; E03.9 Hypothyroidism, unspecified; E55.9 Vitamin D deficiency, unspecified; K21.9 Gastro-esophageal reflux disease without esophagitis; I25.2 Old myocardial infarction; B96.20 Unspecified Escherichia coli [E. coli] as the cause of diseases classified elsewhere; Z79.899 Other long term (current) drug therapy
CPT/HCPCS: 32555; 36415; 36600; 70450; 71045; 71046; 71250; 74018; 80048; 80053; 80069; 80076; 80307; 80329; 81001; 81002; 82077; 82140; 82248; 82803; 82945; 82962; 83615; 83735; 84157; 84439; 84443; 85025; 85610; 85730; 87070; 87075; 87077; 87186; 87205; 87426; 88108; 88305; 88313; 89050; 90937; 99252; 99285; J7040; A4216; G0257; G0463; G0480; J1940; J2405; J3490